=== PATIENT | female | born 1945 | race African-American/Black ===

== ENCOUNTER 2018-02-21 23:29 | Observation (INO) | payer MEDICARE ==
[~2018-02-21] VITALS: Ht 167.6 cm; Wt 117.5 kg
[2018-02-22 02:40] LABS: BASOPHILS % 0.2 % (0.0-1.0); EOSINOPHILS # (AUTO) 0.1 (0.0-0.4); EOSINOPHILS % 1.1 % (0.0-6.0); HEMOGLOBIN 11.3 g/dL (12.0-16.0); LYMPHOCYTES % 21.8 % (18.0-39.1); MEAN CORPUSCULAR HEMOGLOBIN 30.7 pg (28-32); MEAN CORPUSCULAR HGB CONC 32.3 g/dL (31-35); MEAN CORPUSCULAR VOLUME 95.1 fL (81-99); MONOCYTES # (AUTO) 0.4 (0.2-0.8); NEUTROPHILS # (AUTO) 3.2 (2.1-6.9); NEUTROPHILS % 68.7 % (38.7-80.0); PLATELET COUNT 128 x10e3/uL (140-360); RED BLOOD COUNT 3.68 x10e6/uL (3.6-5.1); RED CELL DISTRIBUTION WIDTH 14.5 % (11.7-14.4)
[2018-02-22 02:45] LABS: INR 1.09; PARTIAL THROMBOPLASTIN TIME 32.6 seconds (23.8-35.5); PROTHROMBIN TIME 13.3 seconds (11.9-14.5)
[2018-02-22 02:49] LABS: CLARITY,URINE CLEAR (CLEAR); COLOR,URINE YELLOW (YELLOW); LEUKOCYTE ESTERASE ,URINE 1+ (NEGATIVE); NITRITE,URINE NEGATIVE (NEGATIVE); PROTEIN,URINE DIPSTICK 3+ (NEGATIVE)
[2018-02-22 02:50] LABS: BILIRUBIN,URINE NEGATIVE (NEGATIVE); KETONES,URINE NEGATIVE (NEGATIVE); URINE UROBILINOGEN 0.2 mg/dL (0.2 - 1)
[2018-02-22 02:51] LABS: EPITHELIAL CELLS,URINE MANY /LPF
--- NOTE | 2018-02-22 02:51 | Diagnostic Imaging Report ---
EXAM: CHEST SINGLE (PORTABLE), AP 1 view INDICATION: Shortness of breath, dizzy COMPARISON: None FINDINGS: LINES/TUBES: None LUNGS: No consolidations or edema. PLEURA: No effusions or pneumothorax. HEART AND MEDIASTINUM: Cardiomegaly. BONES AND SOFT TISSUES: No acute findings. Surgical clips project over the midline neck. IMPRESSION: Cardiomegaly and vascular congestion. Signed by: Dr. Zaida Alvarado M.D. on 02/22/2018 2:48 AM
[2018-02-22 02:55] LABS: ALBUMIN 3.2 g/dL (3.5-5.0); ALBUMIN/GLOBULIN RATIO 0.9 (0.8-2.0); ANION GAP 24.1 mmol/L (8-16); CALCIUM 8.8 mg/dL (8.4-10.2); CREATININE, SERUM 13.14 mg/dL (0.57-1.11); MAGNESIUM 2.1 MG/DL (1.3-2.1); POTASSIUM 5.1 mmol/L (3.5-5.1)
[2018-02-22 03:03] LABS: CREATINE KINASE MB 4.5 ng/mL (0-5.0)
--- NOTE | 2018-02-22 03:07 | Diagnostic Imaging Report ---
Examination: CT head without contrast Clinical Indication: Dizziness. Technique: Transaxial noncontrast images from the skull base through the vertex were obtained. Sagittal and coronal reformatted images were done. Comparison: None. Findings: Scalp: No abnormalities. Bones: Intact. No fractures. No blastic or lytic lesions. Brain sulci: Appropriate for patient's age. Ventricles: Normal in size and configuration. No hydrocephalus. . Extra-axial space: No abnormalities. Parenchyma: There are mild confluent areas of low-attenuation within subcortical and periventricular white matter, nonspecific, but could represent microvascular ischemic disease. No masses, hemorrhage, or acute or chronic cortical based vascular insults. Suprasellar region: No abnormalities. Craniocervical junction: The foramen magnum is patent. No Chiari one malformation. Incidental findings: Atherosclerotic calcification of the cavernous and supraclinoid internal carotid arteries. Impression: 1. No acute intracranial finding. 2. Mild chronic microvascular ischemic change. Signed by: Dr. Annmarie Larson M.D. on 02/22/2018 3:04 AM
[2018-02-22] MEDS ORDERED: CEFTRIAXONE SOD 1 GM VIAL IV STA (06:17)
[2018-02-22] MEDS ORDERED: MORPHINE SULFATE 2 MG/ML SYR IV PRN (06:30)
[2018-02-22] MEDS ORDERED: ONDANSETRON HCL INJ 2 MG/ML VIAL IV PRN (06:30)
[2018-02-22 08:48] VITALS: BP 185/95
[2018-02-22] MEDS ORDERED: SODIUM CHLORIDE 0.9% 1000ML 2,000 ML ONE (09:07)
[2018-02-22 11:31] LABS: CHOL/HDL RATIO 5.7 (3.0-3.6)
[2018-02-22 12:19] VITALS: BP 151/79
[2018-02-22 12:40] LABS: CREATINE KINASE MB 4.3 ng/mL (0-5.0)
--- NOTE | 2018-02-22 13:19 | Consultation ---
DATE OF CONSULTATION: February 22, 2018 HISTORY OF PRESENT ILLNESS: A 73-year-old lady, known to our nephrology service, has underlying history of end-stage renal disease, came in because of feeling very weak, dizzy and almost passing out twice she says. She gets her dialysis via left arm AV fistula. Here currently she is lying down. She is relatively asymptomatic but does complain of weakness and fatigue. She denies any prior history of any coronary artery disease or arrhythmia. She also denies and history of NC. Workup here, labs and a chest x-ray, shows evidence of cardiomegaly with mild pulmonary vascular congestion. White count is 4.6, hemoglobin 11.3, potassium 5.1, bicarbonate 24, creatinine 13.1, glucose 333, calcium 8.8. Magnesium noted. BNP 244. Had a urinalysis done showed specific gravity 1010, pH 7, dipstick positive protein with 6 to 10 RBC and 11 to 20 WBC. Urine cultures have been sent and they are pending. ALLERGIES: NO APPARENT DRUG ALLERGIES. CURRENT MEDICATIONS: Patient is on ceftriaxone sodium, morphine and ondansetron. SOCIAL HISTORY: Patient does not smoke or drink. PHYSICAL EXAMINATION GENERAL: Awake, alert, lying supine. No apparent distress. VITALS: Blood pressure 188/95, pulse is 62. Afebrile. HEAD AND NECK: Cornea clear and mucosa dry. LUNGS: Bibasilar rales. HEART: S1, S2 audible. ABDOMEN: Soft, nontender. Distended abdomen. LOWER EXTREMITY EXAMINATION: Shows no edema. Functioning upper arm AV fistula noted. IMPRESSION AND PLAN 1. Evidence of syncope, presyncopal symptoms. ECG noted. Will consult cardiology. Will need an echocardiogram. Arrange for dialysis. 2. Hypertensive. No dyspnea noted. Will check for orthostatic hypotension also. 3. She recently had hemorrhoidal bleed but her hemoglobin is stable at 11.3, so anemia could not be the reason for her presyncopal symptoms. Please see orders. Job#: [id number] COLEMAN
--- NOTE | 2018-02-22 13:22 | Consultation ---
DATE OF CONSULTATION: CARDIOLOGY CONSULTATION ATTENDING PHYSICIAN: Dr. Essence Mercado. Thank you so much for asking me to see this nice lady in consultation. Ms. Horn is a pleasant 73-year-old black woman with longstanding diabetes and hypertension and more recent end-stage renal failure. CHIEF COMPLAINT: She presented to the emergency room the evening of the with complaint of "almost passing out." HISTORY OF PRESENT ILLNESS: She reports that she had been to the [employer] and on returning to home that "legs felt like rubber" and she fell against the side of the house thinking she might pass out but did not lose consciousness. She pushed her emergent call button and staff readiness officer arrived and found her blood pressure was very high and her blood sugar was about 350. Patient reports that she missed dialysis on Sunday and apparently she actually cut short the dialysis on Sunday as well. She reports she does not check fingerstick blood sugars at home herself but gets check at the dialysis unit. PAST MEDICAL HISTORY: Significant for longstanding diabetes and hypertension. She reports she has been on hemodialysis less than a year. HOME MEDICATIONS: Not on the chart. REVIEW OF SYSTEMS CARDIAC: She reports that she was told some years ago that she had "congestive heart failure". She denies any chest pain or palpitations. She reports that she used to have edema before she began dialysis. PHYSICAL EXAMINATION GENERAL: Shows an obese black woman who is on hemodialysis currently. VITALS: Blood pressure 180/80, pulse is 70 and regular. HEENT: Unremarkable. NECK: No jugular venous distention. No bruits. THORAX: Heart sounds S1, S2 equal. No murmurs. Lungs are clear. ABDOMEN: Markedly protuberant. EXTREMITIES: No cyanosis, clubbing, or edema. EKG shows sinus rhythm with poor R-wave progression. LABORATORY DATA: Show BUN 107, creatinine 13.1, glucose 333. Troponins normal. Urinalysis shows white blood cells. ASSESSMENTS 1. "Weak spell," not true syncope. She reports 2 previous episodes of gael syncope about 6 years ago, both proved to be hypoglycemia or hyperglycemia. 2. End-stage renal failure with patient being noncompliant with dialysis sessions. 3. Type 2 adult onset diabetes, poorly controlled. 4. Hypertension, poor control. PLAN: Patient currently on dialysis. We will check echocardiogram. Will monitor on telemetry. Will attempt to stress compliance. Thank you for asking me to see her in consultation. Job#: [id number] TA
[2018-02-22 16:45] VITALS: BP 187/74
[2018-02-22 17:37] VITALS: BP 187/74
[2018-02-22 17:40] VITALS: BP 187/74
[2018-02-22] MEDS ORDERED: FUROSEMIDE40 MG PO ×2 (17:47→18:15)
[2018-02-22] MEDS ORDERED: LISINOPRIL40 MG PO (18:15)
[2018-02-22] MEDS ORDERED: DEXTROSE 50% SYRINGE 50 ML IV PRN (18:45)
[2018-02-22 19:22] LABS: CREATINE KINASE MB 4.1 ng/mL (0-5.0)
[2018-02-22 20:00] VITALS: BP 160/82
[2018-02-22] MEDS: INSULIN REGULAR, HUMAN 100 UNIT/1 ML 3ML VIAL SQ SCH (21:24)
[2018-02-22] MEDS: INSULIN DETEMIR 100 UNIT/ML PEN SQ SCH (21:25)
[2018-02-23] VITALS (8 sets, daily range): BP systolic 122–176; BP diastolic 75–89
--- NOTE | 2018-02-23 03:22 | History and Physical ---
DATE OF ENCOUNTER: February 22, 2018 PRIMARY CARE DOCTOR: Dr. Gonzalez of [facility]. MARKETING TRAFFIC COORDINATOR: [facility] PHYSICIAN: Dr. Anastacio Sutton HISTORY: Ms. Horn is a pleasant 73-year-old female with near-syncope. Patient claims of had 2 separate episodes of syncope in the past. Last episode was 3 years ago, when she had her last stress test at that time. Patient's symptoms were quite profound. She actually missed dialysis on Sunday due to feeling slightly poor. Blood sugars known to be in about 350 range, when she came into emergency room. In the emergency room, chest x-ray consistent with mild overload. BNP level was 249, BUN was 107, creatinine 13.1, with potassium 5.1. She was admitted to observation. PAST MEDICAL HISTORY: End-stage renal disease, on dialysis for 3 years, diabetes, hypertension, reported CHF, hemorrhoids. MEDICINES: Medicine list reviewed per electronic record. ALLERGIES: NO KNOWN DRUG ALLERGIES. SOCIAL HISTORY: No smoking, no drinking, no drugs. 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 FAMILY HISTORY: Noncontributory. REVIEW OF SYSTEMS GENERAL: No unexplained weight changes. OPHTHALMOLOGIC: No double vision. ENT: Mildly dry mouth. ENDOCRINE: No thyroid disease known. PULMONARY: No asthma. CARDIAC: No recent heart attacks. GI: No constipation. : No blood in urine. DERMATOLOGIC: No rash. NEUROLOGIC: No seizures known. IMMUNOLOGIC: No asthma/allergies. OBJECTIVE VITAL SIGNS: Afebrile, vital signs noted per electronic record. GENERAL: In no acute distress, alert, slightly tired appearing in bed. HEENT: Normocephalic, atraumatic. NECK: Supple. Throat midline. LUNGS: Bilateral air entry, decreased effort, few crackles. CARDIOVASCULAR: S1, S2. No murmurs, rubs or gallops. ABDOMEN: Soft, nontender. EXTREMITIES: No clubbing, no cyanosis, there is no large edema. INTEGUMENT: No rash or purpura. IMPRESSIONS AND PLAN 1. Presyncope. 2. End-stage renal disease, on hemodialysis. 3. Missed dialysis, possible treatment nonadherence. 4. Abnormal chest radiography, fluid overload. 5. Diabetes. 6. Hypertension. 7. Reported congestive heart failure. 8. Mild hypoalbuminemia. Admit to observation. Cardiology consult. Patient needs dialysis, so, therefore, we got nephrology consulted. Will go with hemodialysis about 3 L negative output if possible. Check TSH level. Once she is ruled out for OR and cardiology is clear, will consider therapy. Thank you very much, Dr. Gonzalez, for allowing us the chance to participate in the care of Ms. Horn. Do not hesitate to contact us if we can help in any way. Job#: [id number] CQ
[2018-02-23 05:43] LABS: BASOPHILS % 0.2 % (0.0-1.0); EOSINOPHILS # (AUTO) 0.1 (0.0-0.4); EOSINOPHILS % 1.6 % (0.0-6.0); HEMOGLOBIN 11.7 g/dL (12.0-16.0); LYMPHOCYTES # (AUTO) 1.1 (1.0-3.2); LYMPHOCYTES % 25.1 % (18.0-39.1); MEAN CORPUSCULAR HGB CONC 32.5 g/dL (31-35); MEAN CORPUSCULAR VOLUME 95.5 fL (81-99); MONOCYTES # (AUTO) 0.5 (0.2-0.8); MONOCYTES % 10.1 % (4.4-11.3); NEUTROPHILS # (AUTO) 2.8 (2.1-6.9); NEUTROPHILS % 62.8 % (38.7-80.0); PLATELET COUNT 139 x10e3/uL (140-360); RED BLOOD COUNT 3.77 x10e6/uL (3.6-5.1); RED CELL DISTRIBUTION WIDTH 14.6 % (11.7-14.4)
[2018-02-23 06:04] LABS: ALBUMIN 3.2 g/dL (3.5-5.0); ALBUMIN/GLOBULIN RATIO 0.8 (0.8-2.0); CALCIUM 8.4 mg/dL (8.4-10.2); CHOL/HDL RATIO 5.5 (3.0-3.6); CREATININE, SERUM 10.38 mg/dL (0.57-1.11)
[2018-02-23 06:28] LABS: FREE THYROXINE INDEX 0.9587 (1.4-3.8); THYROID STIMULATING HORMONE 93.48 uIU/mL (0.350-4.940)
[2018-02-23] MEDS: INSULIN REGULAR, HUMAN 100 UNIT/1 ML 3ML VIAL SQ SCH ×4 (08:16→20:31)
[2018-02-23] MEDS: FUROSEMIDE 40 MG TAB PO SCH ×2 (10:11→17:00)
[2018-02-23] MEDS: LISINOPRIL 20 MG TAB PO SCH ×2 (10:11→17:00)
[2018-02-23] MEDS: INSULIN DETEMIR 100 UNIT/ML PEN SQ SCH ×2 (10:14→20:59)
[2018-02-23] MEDS: HYDRALAZINE HCL 20 MG/ML VIAL IV PRN (11:56)
[2018-02-23] MEDS ORDERED: SODIUM CHLORIDE 0.9% 1000ML 1,000 ML ONE (14:30)
[2018-02-23] MEDS: NIFEDIPINE CR 30 MG TAB PO SCH (14:45)
[2018-02-23] MEDS: LEVOTHYROXINE SODIUM 112 MCG TAB PO SCH (14:57)
[2018-02-23] MEDS ORDERED: SODIUM CHLORIDE 0.9% 1000ML 2,000 ML IV PRN (15:00)
[2018-02-24] VITALS (8 sets, daily range): BP systolic 130–181; BP diastolic 60–83
[2018-02-24] MEDS: HYDRALAZINE HCL 20 MG/ML VIAL IV PRN ×2 (01:10→05:38)
[2018-02-24] MEDS: LEVOTHYROXINE SODIUM 112 MCG TAB PO SCH (05:58)
[2018-02-24] MEDS ORDERED: LACTULOSE SYRUP 20 GM/30 ML UDC PO ONE ×2 (07:45)
[2018-02-24] MEDS: INSULIN REGULAR, HUMAN 100 UNIT/1 ML 3ML VIAL SQ SCH ×2 (08:06→11:46)
[2018-02-24] MEDS: INSULIN DETEMIR 100 UNIT/ML PEN SQ SCH (09:35)
[2018-02-24] MEDS: NIFEDIPINE CR 30 MG TAB PO SCH (09:36)
[2018-02-24] MEDS: LISINOPRIL 20 MG TAB PO SCH (09:36)
[2018-02-24] MEDS: FUROSEMIDE 40 MG TAB PO SCH (09:36)
[2018-02-24] MEDS ORDERED: LASIX40 MG PO (13:25)
[2018-02-24] MEDS ORDERED: SYNTHROID112 MCG PO (13:26)
[2018-02-24] MEDS ORDERED: LISINOPRIL10 MG PO (13:27)
[2018-02-24] MEDS ORDERED: PROCARDIA XL30 MG PO (13:27)
[2018-02-24] MEDS ORDERED: ANUSOL-HC30 GM RC (13:28)
--- NOTE | 2018-02-24 13:52 | Discharge Summary ---
PRIMARY CARE DOCTOR: Dr. Cade Patel with [facility]. FINAL DIAGNOSIS: Dizziness, near syncope. SECONDARY DIAGNOSES 1. End-stage renal disease. 2. Noncompliant with dialysis. 3. Uncontrolled hypertension. 4. Uncontrolled diabetes. 5. Hypothyroidism. 6. Morbid obesity. 7. Hemorrhoids. CONSULTANTS: Dr. Echavarria, cardiology. Dr. Mercado, diagrammer. PROCEDURES/STUDIES PERFORMED 1. Dialysis. 2. Head computerized tomography, which did not show any acute disease. HISTORY: Per H and P. HOSPITAL COURSE: The patient was monitored in the hospital. Her troponins were negative times 3. Her blood pressure was not controlled. Nifedipine XL was added. Now, her blood pressure is much better. Also, dialysis helped as well. The patient had thyroidectomy in the past, and has not been taking her Synthroid for the last 6 months. I went ahead and started her on 112 mcg daily. The patient will need to have another TSH checked in a couple of months. I stressed importance of being compliant with her medical treatment, including dialysis. The patient was seen and examined today. CONDITION ON DISCHARGE: Stable. DISCHARGE MEDICATIONS: Please see medication reconciliation form. CHERELLE VELASQUEZ M.D. Job#: [id number] RI cc:CADE PATEL MD
== END 2018-02-24 14:40 | disposition home or self-care (01) ==
LOC: ER 23:29 → ERHOLD 02-22 06:23 → IMCU 02-22 16:02
PROVIDERS: ADMIT Internal Medicine; ATTEND Internal Medicine
DX: R55 Syncope and collapse (principal); E11.22 Type 2 diabetes mellitus with diabetic chronic kidney disease; I13.2 Hypertensive heart and chronic kidney disease with heart failure and with stage 5 chronic kidney disease, or end stage renal disease; I50.9 Heart failure, unspecified; N18.6 End stage renal disease; Z99.2 Dependence on renal dialysis; Z91.15 Patient's noncompliance with renal dialysis; Z83.3 Family history of diabetes mellitus; Z82.49 Family history of ischemic heart disease and other diseases of the circulatory system; E87.70 Fluid overload, unspecified; E88.09 Other disorders of plasma-protein metabolism, not elsewhere classified; E11.65 Type 2 diabetes mellitus with hyperglycemia; E66.01 Morbid (severe) obesity due to excess calories; Z68.41 Body mass index [BMI] 40.0-44.9, adult; E03.9 Hypothyroidism, unspecified; K64.9 Unspecified hemorrhoids
CPT/HCPCS: 36415 ×3; 70450; 71045; 80053 ×2; 80061 ×2; 81001; 82550; 82553; 82948 ×3; 83735; 83880; 84436; 84443; 84479; 84484; 85025 ×2; 85610; 85730; 87086; 90935 ×2; 93005; 93306; 96372 ×2; 97139; 97162; 97530; 99284; G0378 ×3; G8978; G8979; J0360 ×2; J0696; J7030 ×2

== ENCOUNTER 2018-05-20 12:31 | Emergency (ER) | payer MEDICARE ==
[~2018-05-20] VITALS: Ht 167.6 cm; Wt 117.5 kg
[~2018-05-20 12:31] MED LIST: ANUSOL-HC30 GM RC; FUROSEMIDE40 MG PO; LASIX40 MG PO; LISINOPRIL10 MG PO; LISINOPRIL40 MG PO; PROCARDIA XL30 MG PO; SYNTHROID112 MCG PO
--- OUTSIDE RECORDS SUMMARY | 2018-05-20 12:34 | XMS REPORT | Clinical Summary ---
Author Author YADIEL [facility]om[facility]Syring[facility] HospitalOpenClov[facility] Address Unknown Phone Unavailable Care Team Providers Care Remarketing Manager Name Role Phone Tl Patel PCP Allergies Comments Active Allergy Reactions Severity Noted Date Atorvastatin Other (See 01/17/2015 Comments) Pneumococcal Vaccine Shortness Of High 01/17/2015 Breath Pneumococcal 23-Nancy Ps Hives, High 05/25/2015 Vaccine Shortness Of Breath Medications End Date Status Medication Sig Dispensed Refills Start Date Active cholecalciferol, vitamin After you 0 D3, (VITAMIN D3) 2,000 have finished 4 unit Cap the prescription strength vitamin D (around 01/02/14), start taking alcf-ojs-dgtn ter vitamin D3 2000 units daily.. Active coenzyme Q10 200 mg Take by mouth 0 capsule daily . Active omega 5-iba-asg-fish oil Take 6 0 (FISH OIL) 1,000 capsules by (120-180) mg Cap mouth. Active FOLIC ACID ORAL Take 1 tablet 0 by mouth. Active senna (SENOKOT) 8.6 mg Take 1 tablet 0 tablet by mouth. Active diclofenac (VOLTAREN) 1 % Apply 0 Gel BID-QID. 4 Active simvastatin (ZOCOR) 5 MG Take 1 tablet 90 tablet 0 tablet (5 mg total) 5 by mouth nightly. Active omeprazole (PRILOSEC) 40 Take 1 90 capsule 0 MG capsule capsule (40 5 mg total) by mouth daily. Active albuterol HFA (PROVENTIL Inhale 2 1 Inhaler 3 HFA) 90 mcg/actuation puffs by 5 inhaler mouth via inhaler every 4 (four) hours as needed for Wheezing. Active allopurinol (ZYLOPRIM) Take 3 30 tablet 3 100 MG tablet tablets (300 5 mg total) by mouth daily TAKE ONE TABLET BY MOUTH EVERY DAY. Active phenyleph-shark Place 0 dho-wjgs-njj rectally as (HEMORRHOIDAL) Crea needed. Active aspirin 81 MG chewable Take 81 mg by 0 tablet mouth daily. Active divalproex (DEPAKOTE) 500 Take 500 mg 0 MG EC tablet by mouth 3 (three) times daily. Active fLUoxetine (PROZAC) 20 MG Take 20 mg by 0 capsule mouth daily. Active HYDROcodone-acetaminophen Take 1 tablet 0 (NORCO 5-325) 5-325 mg by mouth per tablet every 6 (six) hours as needed for Pain. 05/28/2018 Active acetaminophen-codeine Take 1 tablet 20 tablet 0 (TYLENOL #3) 300-30 mg by mouth 8 per tablet every 4 (four) hours as needed for up to 10 days. Max Daily Amount: 6 tablets 05/28/2018 Active pramoxine (PROCTOFOAM) 1 Place 15 g 0 % foam rectally 8 every 2 (two) hours as needed for Hemorrhoids for up to 10 days. 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, H/O 01/22/2015 Diastolic heart failure, H/O 01/22/2015 Diabetic peripheral neuropathy, H/O 01/22/2015 Gout, H/O 01/22/2015 Volume overload 01/17/2015 Diabetes mellitus 01/17/2015 Hyperlipidemia 01/17/2015 Morbid obesity 01/17/2015 Hypertension Encounters Care Team Description Date Type Specialty Bakrai Cuenca MD Hemorrhoids, unspecified hemorrhoid type (Primary Dx); Essential hypertension; ESRD (end stage renal disease) (HCC); Simple chronic bronchitis (HCC) 05/18/2018 Emergency Emergency Medicine 05/18/2018 Travel after 05/19/2017 Social History Date Tobacco Use Types Packs/Day Years Used Never Smoker Smokeless Tobacco: Never Used Alcohol Use Drinks/Week oz/Week Comments No Sex Assigned at Date Recorded Not on file Industry Job Start Date Occupation Not on file Not on file Not on file Travel End Travel History Travel Start No recent travel history available. Last Filed Vital Signs Time Taken Vital Sign Reading 05/18/2018 9:42 AM CDT Blood Pressure 173/88 05/18/2018 9:42 AM CDT Pulse 77 05/18/2018 9:42 AM CDT Temperature 36.2 C (97.2 F) 05/18/2018 9:42 AM CDT Respiratory Rate 24 05/18/2018 9:42 AM CDT Oxygen Saturation 96% - Inhaled Oxygen - Concentration 05/18/2018 9:42 AM CDT Weight 112.9 kg (249 lb) 05/18/2018 9:42 AM CDT Height 167.6 cm (5' 6") 05/18/2018 9:42 AM CDT Body Mass Index 40.19 Plan of Treatment Health Maintenance Due Date Last Done Comments INFLUENZA VACCINE 04/15/2018 Procedures Comments Procedure Name Priority Date/Time Associated Diagnosis CBC W/PLT COUNT & AUTO STAT 05/18/2018 DIFFERENTIAL 11:32 AM CDT BASIC METABOLIC PANEL (7) STAT 05/18/2018 11:32 AM CDT CBC W/PLT COUNT & AUTO STAT 05/18/2018 DIFFERENTIAL 11:32 AM CDT PT/APTT STAT 05/18/2018 11:32 AM CDT after 05/19/2017 Results * PT/aPTT (05/18/2018 11:32 AM CDT) Protime 14.3 11.7 - 14.7 seconds [facility] INR 1.1 <=5.9 [facility] PTT 30.9 22.5 - 36.0 seconds [facility] Specimen Blood - Arm, Right Narrative Performed At RECOMMENDED COUMADIN/WARFARIN INR THERAPY RANGES [facility] STANDARD DOSE: 2.0 - 3.0 Includes: PROPHYLAXIS for venous thrombosis, [facility] systemic embolization; TREATMENT for venous thrombosis and/or pulmonary embolus. HIGH RISK: Target INR is 2.5-3.5 for patients with mechanical heart valves. Performing Organization Address City/State/Zipcode Phone Number [facility] [address] [place] [address] [facility] * CBC with platelet count + automated diff (05/18/2018 11:32 AM CDT) WBC 5.1 3.5 - 10.5 K/L [facility] RBC 3.64 (L) 3.93 - 5.22 M/L [facility] Hemoglobin 10.3 (L) 11.2 - 15.7 GM/DL [facility] Hematocrit 33.9 (L) 34.1 - 44.9 % [facility] MCV 93.1 79.4 - 94.8 fL [facility] MCH 28.3 25.6 - 32.2 pg [facility] MCHC 30.4 (L) 32.2 - 35.5 GM/DL [facility] RDW 14.2 11.7 - 14.4 % [facility] Platelets 142 (L) 150 - 450 K/CU MM [facility] MPV 12.1 9.4 - 12.3 fL [facility] nRBC 0 0 - 0 /100 WBC [facility] % Neutros 76 % [facility] % Lymphs 14 % [facility] % Monos 9 % [facility] % Eos 1 % [facility] % Baso 0 % [facility] # Neutros 3.85 1.56 - 6.13 K/L [facility] # Lymphs 0.72 (L) 1.18 - 3.74 K/L [facility] # Monos 0.43 (H) 0.24 - 0.36 K/L [facility] # Eos 0.06 0.04 - 0.36 K/L [facility] # Baso 0.01 0.01 - 0.08 K/L [facility] Immature 0 0 - 1 % [facility] Granulocytes-Relative [facility] Specimen Blood - Arm, Right Performing Organization Address City/[facility] Phone Number [facility] [address] [place] [address] [phone] [place] [address] * Basic Metabolic Panel (05/18/2018 11:32 AM CDT) Sodium 136 136 - 145 meq/L [facility] Potassium 4.3 3.5 - 5.1 meq/L [facility] Chloride 98 98 - 107 meq/L [facility] CO2 23 22 - 29 meq/L [facility] BUN 64 (H) 7 - 21 mg/dL [facility] Creatinine 12.54 (H) 0.57 - 1.25 mg/dL [facility] Glucose 116 (H) 70 - 105 mg/dL [facility] Calcium 7.8 (L) 8.4 - 10.2 mg/dL [facility] EGFR 4Comment: ESTIMATED GFR IS NOT mL/min/1.73 sq m [facility] ACCURATE CREATININE [facility] CLEARANCE IN PREDICTING GLOMERULAR FILTRATION RATE. ESTIMATED GFR IS NOT APPLICABLE FOR DIALYSIS PATIENTS. Specimen Blood - Arm, Right Performing Organization Address City/State/Zipcode Phone Number [facility] [address] [place] [address] [facility] after 05/19/2017 Insurance Payer Benefit Subscriber ID Type Phone Address Plan / Group [facility] x[facility]xx MEDICARE ADV Advance Directives For more information, please contact: [address] [address] Date Inactivated Comments Code Status Date Activated 04/30/2015 8:20 PM Full Code 04/29/2015 10:32 AM This code status was determined by: Patient 04/06/2015 2:57 PM Full Code 04/06/2015 5:37 AM This code status was determined by: Patient 03/31/2015 6:12 PM Full Code 03/28/2015 2:15 AM This code status was determined by: Patient 02/02/2015 4:05 PM Full Code 01/29/2015 12:31 AM This code status was determined by: Patient 01/24/2015 2:28 PM Full Code 01/17/2015 6:53 PM This code status was determined by: Patient
[2018-05-20] MEDS ORDERED: LIDOCAINE JELLY 2% 10ML URO-JET ONE (14:20)
[2018-05-20] MEDS ORDERED: LIDOCAINE HCL 2% 30 ML TUBE TOP ONE (14:30)
[2018-05-20 14:47] LABS: BASOPHILS % 0.2 % (0.0-1.0); EOSINOPHILS % 0.7 % (0.0-6.0); HEMATOCRIT 37.4 % (34.2-44.1); HEMOGLOBIN 11.5 g/dL (12.0-16.0); LYMPHOCYTES # (AUTO) 0.8 (1.0-3.2); LYMPHOCYTES % 15.1 % (18.0-39.1); MEAN CORPUSCULAR HEMOGLOBIN 28.3 pg (28-32); MEAN CORPUSCULAR HGB CONC 30.7 g/dL (31-35); MEAN CORPUSCULAR VOLUME 92.1 fL (81-99); MONOCYTES # (AUTO) 0.5 (0.2-0.8); MONOCYTES % 8.8 % (4.4-11.3); NEUTROPHILS # (AUTO) 4.1 (2.1-6.9); PLATELET COUNT 185 x10e3/uL (140-360); RED BLOOD COUNT 4.06 x10e6/uL (3.6-5.1); RED CELL DISTRIBUTION WIDTH 14.6 % (11.7-14.4)
[2018-05-20] MEDS ORDERED: LACTULOSE SYRUP 20 GM/30 ML UDC PO ONE (15:00)
[2018-05-20 15:13] LABS: ALBUMIN 3.3 g/dL (3.5-5.0); ALBUMIN/GLOBULIN RATIO 0.7 (0.8-2.0); ANION GAP 24.9 mmol/L (8-16); CALCIUM 8.4 mg/dL (8.4-10.2); CREATININE, SERUM 16.12 mg/dL (0.57-1.11); MAGNESIUM 2.4 MG/DL (1.3-2.1); PHOSPHORUS 8.7 MG/DL (2.3-4.7); POTASSIUM 4.9 mmol/L (3.5-5.1)
[2018-05-20] MEDS ORDERED: HYDRALAZINE HCL 20 MG/ML VIAL IV ONE ×2 (15:15→17:00)
[2018-05-20] MEDS ORDERED: SODIUM CHLORIDE 0.9% 1000ML 1,000 ML IV ONE (15:45)
[2018-05-20 15:51] VITALS: BP 183/50
[2018-05-20] MEDS ORDERED: CALCIUM ACETATE 667 MG GELCAP PO ONE (16:30)
== END 2018-05-20 18:20 | disposition home or self-care (01) ==
LOC: ER 12:31
DX: K62.89 Other specified diseases of anus and rectum (principal); K56.41 Fecal impaction; E86.0 Dehydration; I12.0 Hypertensive chronic kidney disease with stage 5 chronic kidney disease or end stage renal disease; E11.22 Type 2 diabetes mellitus with diabetic chronic kidney disease; N18.6 End stage renal disease; Z99.2 Dependence on renal dialysis
CPT/HCPCS: 36415; 80053; 83735; 84100; 85025; 99284; J0360; J7030

== ENCOUNTER 2018-08-20 21:15 | Emergency (ER) | payer MEDICARE ==
[~2018-08-20] VITALS: Ht 167.6 cm; Wt 117.5 kg
--- OUTSIDE RECORDS SUMMARY | 2018-08-20 21:19 | XMS REPORT | Clinical Summary ---
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 Active coenzyme Q10 200 mg Take by mouth 0 capsule daily . Active omega 1-jxl-gjm-fish oil Take 6 0 (FISH OIL) 1,000 capsules by (120-180) mg Cap mouth. Active FOLIC ACID ORAL Take 1 tablet 0 by mouth. Active senna (SENOKOT) 8.6 mg Take 1 tablet 0 tablet by mouth. Active diclofenac (VOLTAREN) 1 % Apply 0 Gel BID-QID. 4 Active omeprazole (PRILOSEC) 40 Take 1 90 capsule 0 MG capsule capsule (40 5 mg total) by mouth daily. Active albuterol HFA (PROVENTIL Inhale 2 1 Inhaler 3 HFA) 90 mcg/actuation puffs by 5 inhaler mouth via inhaler every 4 (four) hours as needed for Wheezing. Active phenyleph-shark Place 0 mcr-tdds-klu rectally as (HEMORRHOIDAL) Crea needed. Active aspirin 81 MG chewable Take 81 mg by 0 tablet mouth daily. Active calcium acetate (PHOSLO) Take 2,001 mg 0 667 mg capsule by mouth 3 (three) times daily with meals. Active carvedilol (COREG) 3.125 Take 1 tablet 60 tablet 1 MG tablet (3.125 mg 9 total) by mouth 2 (two) times daily with breakfast and dinner. 07/27/2019 Active cilostazol (PLETAL) 50 MG Take 1 tablet 180 tablet 0 tablet (50 mg total) 9 by mouth 2 (two) times daily. Active clopidogrel (PLAVIX) 75 Take 1 tablet 90 tablet 0 mg tablet (75 mg total) 9 by mouth daily. Active docusate sodium (COLACE) Take 1 30 capsule 0 100 MG capsule capsule (100 9 mg total) by mouth 2 (two) times daily. Active NIFEdipine (ADALAT CC) 30 Take 1 tablet 90 tablet 0 MG 24 hr tablet (30 mg total) 9 by mouth daily. 07/27/2019 Active nitroglycerin (NITROSTAT) Put 1 pill 10 tablet 0 0.4 MG SL tablet under tongue 9 every 5min as needed for chest pain.No more than 3 doses in 15min.Call 911 if pain is unrelieved. Active rosuvastatin (CRESTOR) 10 Take 1 tablet 90 tablet 0 MG tablet (10 mg total) 9 by mouth daily. 07/19/2018 Discontinued simvastatin (ZOCOR) 5 MG Take 1 tablet 90 tablet 0 tablet (5 mg total) 5 by mouth nightly. 07/19/2018 Discontinued allopurinol (ZYLOPRIM) Take 3 30 tablet 3 100 MG tablet tablets (300 5 mg total) by mouth daily TAKE ONE TABLET BY MOUTH EVERY DAY. 07/19/2018 Discontinued divalproex (DEPAKOTE) 500 Take 500 mg 0 MG EC tablet by mouth 3 (three) times daily. 07/19/2018 Discontinued fLUoxetine (PROZAC) 20 MG Take 20 mg by 0 capsule mouth daily. 07/27/2018 Discontinued HYDROcodone-acetaminophen Take 1 tablet 0 (NORCO 5-325) 5-325 mg by mouth per tablet every 6 (six) hours as needed for Pain. 05/28/2018 acetaminophen-codeine Take 1 tablet 20 tablet 0 (TYLENOL #3) 300-30 mg by mouth 8 per tablet every 4 (four) hours as needed for up to 10 days. Max Daily Amount: 6 tablets 05/28/2018 pramoxine (PROCTOFOAM) 1 Place 15 g 0 % foam rectally 8 every 2 (two) hours as needed for Hemorrhoids for up to 10 days. 07/27/2018 Discontinued furosemide (LASIX) 80 MG Take 80 mg by 0 tablet mouth 2 (two) times daily. 07/27/2018 Discontinued lisinopril Take 40 mg by 0 (PRINIVIL,ZESTRIL) 40 MG mouth 2 (two) tablet times daily. 08/06/2018 oxyCODONE-acetaminophen Take 1 tablet 30 tablet 0 (PERCOCET) 5-325 mg per by mouth 9 tablet every 8 (eight) hours as needed for Pain for up to 10 days. Max Daily Amount: 3 tablets Active Problems Problem Noted Date Toe gangrene 07/19/2018 Fecal impaction 04/29/2015 Constipation 04/29/2015 ESRD (end [...] Encounters Care Team Description Date Type Specialty Goyo Haji MD AMPUTATION,TOE 07/25/2018 Surgery Suresh Roberts MD 07/25/2018 Anesthesia Event Jonathan Wood MD PERIPHERAL ANGIOS / AORTOGRAM 07/23/2018 Surgery 07/20/2018 Travel Jr Lala MD Dhir, Fely Acevedo MD 07/19/2018 Hospital Cardiology - Encounter 07/27/2018 Bakari Cuenca MD Hemorrhoids, unspecified hemorrhoid type (Primary Dx); Essential hypertension; ESRD (end stage renal disease) (HCC); Simple chronic bronchitis (HCC) 05/18/2018 Emergency Emergency Medicine 05/18/2018 Travel after 08/19/2017 Social History Date Tobacco Use Types Packs/Day Years Used Never Smoker Smokeless Tobacco: Never Used Alcohol Use Drinks/Week oz/Week Comments No Sex Assigned at Date Recorded Not on file Industry Job Start Date Occupation Not on file Not on file Not on file Travel End Travel History Travel Start No recent travel history available. Last Filed Vital Signs Time Taken Vital Sign Reading 07/27/2018 11:55 AM DELIVERY ASSISTANT Blood Pressure 143/65 07/27/2018 11:55 AM DELIVERY ASSISTANT Pulse 72 07/27/2018 11:55 AM DELIVERY ASSISTANT Temperature 36.7 C (98.1 F) 07/27/2018 11:55 AM DELIVERY ASSISTANT Respiratory Rate 18 07/27/2018 1:45 PM DELIVERY ASSISTANT Oxygen Saturation 96% - Inhaled Oxygen - Concentration 07/24/2018 3:55 PM DELIVERY ASSISTANT Weight 114.2 kg (251 lb 12.3 oz) 07/19/2018 7:37 PM DELIVERY ASSISTANT Height 170.7 cm (5' 7.2") 07/24/2018 3:55 PM DELIVERY ASSISTANT Body Mass Index 39.2 Plan of Treatment Health Maintenance Due Date Last Done Comments INFLUENZA VACCINE 04/15/2018 Procedures Comments Procedure Name Priority Date/Time Associated Diagnosis VASCULAR DIAGRAM -SCAN 08/19/2018 9:10 AM DELIVERY ASSISTANT RHYTHM STRIP - SCAN 08/19/2018 9:10 AM DELIVERY ASSISTANT CARDIAC CATH REPORT - 08/19/2018 SCAN 9:10 AM DELIVERY ASSISTANT POCT-GLUCOSE METER Routine 07/27/2018 12:42 PM DELIVERY ASSISTANT POCT-GLUCOSE METER Routine 07/27/2018 9:08 AM DELIVERY ASSISTANT POCT-GLUCOSE METER Routine 07/26/2018 9:29 PM DELIVERY ASSISTANT POCT-GLUCOSE METER Routine 07/26/2018 5:55 PM DELIVERY ASSISTANT POCT-GLUCOSE METER Routine 07/26/2018 12:10 PM DELIVERY ASSISTANT HEMODIALYSIS INPATIENT Routine 07/26/2018 11:52 AM DELIVERY ASSISTANT BASIC METABOLIC PANEL (7) Routine 07/26/2018 8:19 AM DELIVERY ASSISTANT POCT-GLUCOSE METER Routine 07/25/2018 9:49 PM DELIVERY ASSISTANT POCT-GLUCOSE METER Routine 07/25/2018 6:02 PM DELIVERY ASSISTANT POCT-GLUCOSE METER Routine 07/25/2018 1:37 PM DELIVERY ASSISTANT TISSUE EXAM AP Routine 07/25/2018 1:05 PM DELIVERY ASSISTANT AMPUTATION,TOE 07/25/2018 Gangrene of toe (HCC) 1:01 PM DELIVERY ASSISTANT POCT-GLUCOSE METER Routine 07/25/2018 8:06 AM DELIVERY ASSISTANT POCT-GLUCOSE METER Routine 07/24/2018 11:08 PM DELIVERY ASSISTANT HEMODIALYSIS INPATIENT Routine 07/24/2018 7:50 PM DELIVERY ASSISTANT PHOSPHORUS Routine 07/24/2018 4:17 PM DELIVERY ASSISTANT POCT-GLUCOSE METER Routine 07/24/2018 12:33 PM DELIVERY ASSISTANT POCT-GLUCOSE METER Routine 07/24/2018 7:31 AM DELIVERY ASSISTANT CBC W/PLT COUNT & AUTO Routine 07/24/2018 DIFFERENTIAL 3:24 AM DELIVERY ASSISTANT CBC W/PLT COUNT & AUTO Routine 07/24/2018 DIFFERENTIAL 3:24 AM DELIVERY ASSISTANT BASIC METABOLIC PANEL (7) Routine 07/24/2018 3:24 AM DELIVERY ASSISTANT PLATELET AGGREGATION: AP Routine 07/24/2018 FUNCTION SCREEN 3:24 AM DELIVERY ASSISTANT POCT-GLUCOSE METER Routine 07/23/2018 9:20 PM DELIVERY ASSISTANT POCT-ACT Routine 07/23/2018 7:09 PM DELIVERY ASSISTANT POCT-GLUCOSE METER Routine 07/23/2018 6:32 PM DELIVERY ASSISTANT POCT-ACT Routine 07/23/2018 5:47 PM DELIVERY ASSISTANT POCT-ACT Routine 07/23/2018 4:42 PM DELIVERY ASSISTANT POCT-ACT Routine 07/23/2018 2:38 PM DELIVERY ASSISTANT POCT-GLUCOSE METER Routine 07/23/2018 1:25 PM DELIVERY ASSISTANT POCT-ACT Routine 07/23/2018 10:13 AM DELIVERY ASSISTANT PERIPHERAL ANGIOS / 07/23/2018 Peripheral arterial AORTOGRAM 9:15 AM DELIVERY ASSISTANT disease (HCC) Case Notes (2) CASE 1830 POCT-GLUCOSE METER Routine 07/23/2018 6:42 AM DELIVERY ASSISTANT POCT-GLUCOSE METER Routine 07/22/2018 9:21 PM DELIVERY ASSISTANT HEMODIALYSIS INPATIENT Routine 07/22/2018 8:37 PM DELIVERY ASSISTANT CBC W/PLT COUNT & AUTO Routine 07/22/2018 DIFFERENTIAL 4:08 PM DELIVERY ASSISTANT PHOSPHORUS Routine 07/22/2018 4:08 PM DELIVERY ASSISTANT BASIC METABOLIC PANEL (7) Routine 07/22/2018 4:08 PM DELIVERY ASSISTANT CBC W/PLT COUNT & AUTO Routine 07/22/2018 DIFFERENTIAL 4:08 PM DELIVERY ASSISTANT POCT-GLUCOSE METER Routine 07/22/2018 11:33 AM DELIVERY ASSISTANT POCT-GLUCOSE METER Routine 07/21/2018 9:06 PM DELIVERY ASSISTANT POCT-GLUCOSE METER Routine 07/21/2018 4:10 PM DELIVERY ASSISTANT C. DIFFICILE GDH TOXIN Routine 07/21/2018 2:11 PM DELIVERY ASSISTANT POCT-GLUCOSE METER Routine 07/21/2018 11:28 AM DELIVERY ASSISTANT POCT-GLUCOSE METER Routine 07/21/2018 7:46 AM DELIVERY ASSISTANT POCT-GLUCOSE METER Routine 07/20/2018 9:21 PM DELIVERY ASSISTANT HEMODIALYSIS INPATIENT Routine 07/20/2018 7:18 PM DELIVERY ASSISTANT POCT-GLUCOSE METER Routine 07/20/2018 4:42 PM DELIVERY ASSISTANT HEPATITIS B SURFACE Routine 07/20/2018 ANTIGEN 2:58 PM DELIVERY ASSISTANT PHOSPHORUS Routine 07/20/2018 2:58 PM DELIVERY ASSISTANT POCT-GLUCOSE METER Routine 07/20/2018 11:33 AM DELIVERY ASSISTANT POCT-GLUCOSE METER Routine 07/20/2018 7:53 AM DELIVERY ASSISTANT CBC W/PLT COUNT & AUTO Routine 07/20/2018 DIFFERENTIAL 6:02 AM DELIVERY ASSISTANT BASIC METABOLIC PANEL (7) Routine 07/20/2018 6:02 AM DELIVERY ASSISTANT CBC W/PLT COUNT & AUTO Routine 07/20/2018 DIFFERENTIAL 6:02 AM DELIVERY ASSISTANT POCT-GLUCOSE METER Routine 07/19/2018 8:27 PM DELIVERY ASSISTANT CBC W/PLT COUNT & AUTO STAT 05/18/2018 DIFFERENTIAL 11:32 AM CDT BASIC METABOLIC PANEL (7) STAT 05/18/2018 11:32 AM CDT CBC W/PLT COUNT & AUTO STAT 05/18/2018 DIFFERENTIAL 11:32 AM CDT PT/APTT STAT 05/18/2018 11:32 AM CDT after 08/19/2017 Results * VASCULAR DIAGRAM -SCAN (08/19/2018 9:10 AM DELIVERY ASSISTANT) Narrative Performed At * RHYTHM STRIP - SCAN (08/19/2018 9:10 AM DELIVERY ASSISTANT) Narrative Performed At * CARDIAC CATH REPORT - SCAN (08/19/2018 9:10 AM DELIVERY ASSISTANT) Narrative Performed At * POC-Glucose meter (07/27/2018 12:42 PM DELIVERY ASSISTANT) Only the most recent of 27 results within the time period is included. POC-Glucose Meter 166 (H)Comment: TESTED AT 70 - 110 mg/dL [facility] [address] [facility] [address] Specimen Blood Performing Organization Address City/State/Zipcode Phone Number [place] [phone] [place], [place] [id number] [facility] * HEMODIALYSIS INPATIENT (07/26/2018 11:52 AM DELIVERY ASSISTANT) Narrative Performed At Harjinder Dan RN 07/26/2018 11:53 AM Lab Results Component Value Date WBC 5.1 07/24/2018 HGB 10.6 (L) 07/24/2018 HCT 35.9 07/24/2018 MCV 91.6 07/24/2018 PLT 235 07/24/2018 PLT 235 07/24/2018 Lab Results Component Value Date GLUCOSE 108 (H) 07/26/2018 CALCIUM 8.2 (L) 07/26/2018 NA 135 (L) 07/26/2018 K 5.0 07/26/2018 CO2 27 07/26/2018 CL 99 07/26/2018 BUN 46 (H) 07/26/2018 CREATININE 9.49 (H) 07/26/2018 Lab Results Component Value Date HEPBSAG Nonreactive 07/20/2018 Vitals: 07/26/18 1145 BP: 181/81 Pulse: 90 Resp: 20 Temp: 98.2 F (36.8 C) SpO2: HD x 3.5hrs. UF net 3.5L. Treatment tolerated well the patient awake and alert, not in distress. * Basic metabolic panel (07/26/2018 8:19 AM DELIVERY ASSISTANT) Only the most recent of 5 results within the time period is included. Sodium 135 (L) 136 - 145 meq/L [facility] Potassium 5.0 3.5 - 5.1 meq/L [facility] Chloride 99 98 - 107 meq/L [facility] CO2 27 22 - 29 meq/L [facility] BUN 46 (H) 7 - 21 mg/dL [facility] Creatinine 9.49 (H) 0.57 - 1.25 mg/dL [facility] Glucose 108 (H) 70 - 105 mg/dL [facility] Calcium 8.2 (L) 8.4 - 10.2 mg/dL [facility] EGFR 5Comment: ESTIMATED GFR IS NOT mL/min/1.73 sq m [facility] ACCURATE CREATININE [facility] CLEARANCE IN PREDICTING GLOMERULAR FILTRATION RATE. ESTIMATED GFR IS NOT APPLICABLE FOR DIALYSIS PATIENTS. Specimen Blood - Arm, Left Performing Organization Address City/State/Zipcode Phone Number [facility] [address] [place] [address] [facility] * Tissue Exam (07/25/2018 1:05 PM DELIVERY ASSISTANT) Case Report Surgical Pathology [facility] Report [facility] Case: [id number] Authorizing Provider:Goyo Haji, Collected: 07/25/2018 1305 Ordering Location: [facility] PERIOPERATIVE Received: 07/25/2018 1439 SERVICES Pathologist: Cristobal Triana MD Specimen:Toe, Left, SECOND TOE DIAGNOSIS TOE, LEFT 2ND, AMPUTATION: [facility] - SKIN, SOFT TISSUE, AND BONE [facility] MARGINS, VIABLE AND NEGATIVE FOR ACUTE INFLAMMATION - SKIN WITH REACTIVE CHANGES - UNDERLYING BONE WITH CHRONIC OSTEOMYELITIS Signing Pathologist Direct Phone Line: [phone] CPT Code(s) 90931, 72069 [facility] CLINICAL HISTORY Gangrene of toe [facility] Per review of the electronic [facility] medical record in EPIC: this is a 73 year old woman with diabetes and peripheral artery disease with left second toe gangrene. Operative finding of gangrene without infection. SPECIMEN SOURCE Second left toe [facility] GROSS DESCRIPTION The specimen is received in a [facility] formalin-filled container [facility] labeled with the patient's information and labeled "left second toe" and consists of a second amputated digit measuring 7 x 2 x 1 cm. The skin has a distal area that is gangrenous measuring 2.5 x 1 cm. The area is located 1.5 cm from the skin margin. Section code: A1, skin margin en face; A2, bone margin en face submitted for decalcification; A3, cross section of necrosis and underlying bone submitted for decal. CG/ew MICROSCOPIC DESCRIPTION Performed. [facility] Specimen Tissue - Toe, Left Performing Organization Address City/[facility] Phone Number [facility] [address] [place] [address] [facility] * HEMODIALYSIS INPATIENT (07/24/2018 7:50 PM DELIVERY ASSISTANT) Narrative Performed At Alyson Stoddard RN 07/24/20188:39 PM Procedure tolerated well. Vital signs stable. HD duration 3.5 hours UF 3.5 L Lab Results Component Value Date WBC 5.1 07/24/2018 HGB 10.6 (L) 07/24/2018 HCT 35.9 07/24/2018 MCV 91.6 07/24/2018 PLT 235 07/24/2018 PLT 235 07/24/2018 Lab Results Component Value Date GLUCOSE 160 (H) 07/24/2018 CALCIUM 8.3 (L) 07/24/2018 NA 138 07/24/2018 K 4.7 07/24/2018 CO2 26 07/24/2018 CL 99 07/24/2018 BUN 53 (H) 07/24/2018 CREATININE 9.80 (H) 07/24/2018 No components found for: HEPSAG Vitals: 07/24/181999 BP: Pulse: 79 Resp: 24 Temp: SpO2: * Phosphorus (07/24/2018 4:17 PM DELIVERY ASSISTANT) Only the most recent of 3 results within the time period is included. Phosphorus 5.5 (H) 2.3 - 4.7 mg/dL [facility] Specimen Blood Performing Organization Address City/[facility] Phone Number [facility] [address] [place] [address] [facility] * Platelet Aggregation: Function Screen (07/24/2018 3:24 AM DELIVERY ASSISTANT) Weak ADP 37 (L) 60 - 91 % [facility] Plt. Function Screen 0-39% indicates marked [facility] Interpretation platelet dysfunction [facility] Pathologist: Soledad Vilchis MD (electronic [facility] signature) [facility] Platelets 235 150 - 430 K/CU MM [facility] Specimen Blood - Arm, Right Narrative Performed At Platelet Function Screen results may be falsely low with platelet counts [facility] <100,000/cu mm. [facility] Performing Organization Address City/State/Zipcode Phone Number [facility] [address] [place] [address] [facility] * CBC with platelet count + automated diff (07/24/2018 3:24 AM DELIVERY ASSISTANT) Only the most recent of 4 results within the time period is included. WBC 5.1 3.5 - 10.5 K/L [facility] RBC 3.92 (L) 3.93 - 5.22 M/L [facility] Hemoglobin 10.6 (L) 11.2 - 15.7 GM/DL [facility] Hematocrit 35.9 34.1 - 44.9 % [facility] MCV 91.6 79.4 - 94.8 fL [facility] MCH 27.0 25.6 - 32.2 pg [facility] MCHC 29.5 (L) 32.2 - 35.5 GM/DL [facility] RDW 15.3 (H) 11.7 - 14.4 % [facility] Platelets 235 150 - 450 K/CU MM [facility] MPV 11.9 9.4 - 12.3 fL [facility] nRBC 0 0 - 0 /100 WBC [facility] % Neutros 71 % [facility] % Lymphs 18 % [facility] % Monos 8 % [facility] % Eos 2 % [facility] % Baso 0 % [facility] # Neutros 3.66 1.56 - 6.13 K/L [facility] # Lymphs 0.90 (L) 1.18 - 3.74 K/L [facility] # Monos 0.41 (H) 0.24 - 0.36 K/L [facility] # Eos 0.12 0.04 - 0.36 K/L [facility] # Baso 0.02 0.01 - 0.08 K/L [facility] Immature 0 0 - 1 % [facility] Granulocytes-Relative [facility] Specimen Blood - Arm, Right Performing Organization Address City/[facility] [place] [address] [phone] [place] [address] * POC ACTIVATED CLOTTING TIME (07/23/2018 7:09 PM DELIVERY ASSISTANT) Only the most recent of 5 results within the time period is included. Activated Clotting Time 136Comment: TESTED AT [facility] sec [address] Specimen Blood Performing Organization Address City/[facility] [place] [address] [facility] * HEMODIALYSIS INPATIENT (07/22/2018 8:37 PM DELIVERY ASSISTANT) Narrative Performed At Romario Wolff RN 07/22/20188:40 PM Hemodialysis terminated 1 hours early per pt's request and signed against medical advice. Dr. Carranza called and notified , answering service informed, message was relayed to Dr. Alvarez. Ultrafiltration- 2700 ml. PT AAOX4, V/S stable , no distress. AV graft site with dressing, no bleeding noted. Report given. BP 117/57| Pulse 75| Temp 98.2 F (36.8 C)| Resp 22| Ht 1.707 m (5' 7.2")| Wt (!) 113.4 kg (250 lb)| SpO2 100%| BMI 38.92 kg/m Allergies Allergen Reactions Pneumococcal Vaccine Shortness Of Breath Pneumovax 23 [Pneumococcal 23-Nancy Ps Vaccine] Hives and Shortness Of Breath Atorvastatin Other (See Comments) Lab Results Component Value Date HEPBSAB <8.0 03/28/2015 Lab Results Component Value Date GLUCOSE 179 (H) 07/22/2018 K 4.6 07/22/2018 CALCIUM 8.2 (L) 07/22/2018 NA 137 07/22/2018 CO2 25 07/22/2018 CL 97 (L) 07/22/2018 BUN 63 (H) 07/22/2018 CREATININE 11.24 (H) 07/22/2018 Lab Results Component Value Date WBC 5.1 07/22/2018 HCT 34.8 07/22/2018 MCV 90.2 07/22/2018 PLT 207 07/22/2018 ROMARIO WOLFF RN * Clostridium difficile GDH Toxin (07/21/2018 2:11 PM DELIVERY ASSISTANT) C. Difficle Toxin Negative Negative [facility] C. Difficile GDH Antigen NegativeComment: No indication Negative [facility] of Clostridium difficile [facility] infection and no colonization. Discontinue enteric isolation and therapy. Specimen Stool - Stool Narrative Performed At Testing performed by [employer] Rapid Cassette Assay.For GDH, published [facility] sensitivity of the assay is 98.7% compared to cytotoxicity testing.For Toxin [facility] AB, published sensitivity is 87.8% and specificity 99.4% compared to cytotoxicity testing. Verification of kit performance was done by the [facility] Microbiology Lab prior to clinical use. Performing Organization Address City/State/Zipcode Phone Number [facility] [address] [place] [address] [facility] * HEMODIALYSIS INPATIENT (07/20/2018 7:18 PM DELIVERY ASSISTANT) Narrative Performed At Harjinder Dan RN 07/20/20187:20 PM Lab Results Component Value Date WBC 6.2 07/20/2018 HGB 10.4 (L) 07/20/2018 HCT 34.6 07/20/2018 MCV 90.3 07/20/2018 PLT 184 07/20/2018 Lab Results Component Value Date GLUCOSE 195 (H) 07/20/2018 CALCIUM 6.5 (L) 07/20/2018 NA 134 (L) 07/20/2018 K 4.3 07/20/2018 CO2 19 (L) 07/20/2018 CL 98 07/20/2018 BUN 89 (H) 07/20/2018 CREATININE 15.18 (H) 07/20/2018 Lab Results Component Value Date HEPBSAG Nonreactive 07/20/2018 Vitals: 07/20/18 1905 BP: 175/84 Pulse: 95 Resp: 21 Temp: 97.9 F (36.6 C) SpO2: HD x 4hrs. UF net 4L. Treatment tolerated well. Pt awake and alert. * Hepatitis B surface antigen (07/20/2018 2:58 PM DELIVERY ASSISTANT) hepatitis B Surface Ag NON-REACTIVE Nonreactive [facility] Specimen Blood - Arm, Left Narrative Performed At For chronic HD patients, draw HBsAg with each admission then every 30 days. [facility] Performing Organization Address City/[facility] Phone Number [facility] [address] [place] [address] [facility] * PT/aPTT (05/18/2018 11:32 AM CDT) Protime 14.3 11.7 - 14.7 seconds [facility] INR 1.1 <=5.9 [facility] PTT 30.9 22.5 - 36.0 seconds [facility] Specimen Blood - Arm, Right Narrative Performed At RECOMMENDED COUMADIN/WARFARIN INR THERAPY RANGES [facility] STANDARD DOSE: 2.0 - 3.0 Includes: PROPHYLAXIS for venous thrombosis, [facility] systemic embolization; TREATMENT for venous thrombosis and/or pulmonary embolus. HIGH RISK: Target INR is 2.5-3.5 for patients with mechanical heart valves. Performing Organization Address [facility]/Zipcode Phone Number [facility] [address] [place] [address] [facility] after 08/19/2017 Insurance Payer Benefit Subscriber ID Type Phone Address Plan / Group [employer] K[employer] xxxxxxxxxxx MEDICARE ADV Advance Directives For more information, please contact: [facility] [address] [place] [phone] Date Inactivated Comments Code Status Date Activated Full Code 07/19/2018 10:21 PM This code status was determined by: Patient 04/30/2015 8:20 PM Full Code 04/29/2015 10:32 [...]
[2018-08-21 01:04] LABS: ANION GAP 26.8 mmol/L (8-16); CALCIUM 7.8 mg/dL (8.4-10.2); CREATININE, SERUM 16.71 mg/dL (0.57-1.11); POTASSIUM 4.8 mmol/L (3.5-5.1)
== END 2018-08-21 01:55 | disposition home or self-care (01) ==
LOC: ER 21:15
DX: R53.1 Weakness (principal); I12.0 Hypertensive chronic kidney disease with stage 5 chronic kidney disease or end stage renal disease; E11.22 Type 2 diabetes mellitus with diabetic chronic kidney disease; N18.6 End stage renal disease; Z99.2 Dependence on renal dialysis; J44.9 Chronic obstructive pulmonary disease, unspecified; I50.9 Heart failure, unspecified; F31.9 Bipolar disorder, unspecified
CPT/HCPCS: 36415; 80048; 99283

== ENCOUNTER 2018-11-06 13:20 | Inpatient (IN) | payer MEDICARE ==
[~2018-11-06] VITALS: Ht 167.6 cm; Wt 103.0 kg
--- OUTSIDE RECORDS SUMMARY | 2018-11-06 13:23 | XMS REPORT | Clinical Summary ---
Author Author YADIEL [facility] Address Unknown Phone Unavailable Care Team Providers Care Button Riveter Name Role Phone Tl Patel PCP Allergies [...] strength vitamin D (around 01/02/14), start taking bgqv-idm-bcld ter vitamin D3 2000 units daily.. Active calcium acetate (PHOSLO) Take 2,001 mg [...] (10 mg total) 9 by mouth daily. Active aspirin 81 MG EC tablet Take 81 mg by 0 mouth daily. Active levothyroxine (SYNTHROID, Take 175 mcg 0 LEVOTHROID) 175 MCG by mouth tablet Every morning on an empty stomach. Active insulin NPH (HUMULIN N) Inject 13 0 100 unit/mL injection Units 9 subcutaneousl y 2 (two) times daily before meals Do not give if Accu-Cheks less than 150. Active bisacodyl (DULCOLAX) 5 mg Take 2 0 EC tablet tablets (10 9 mg total) by mouth daily as needed for Constipation. Active epoetin jyothi-epbx Inject 1 mL 0 (RETACRIT) 10,000 unit/mL (10,000 Units 9 Soln total) injectionIndications: subcutaneousl Anemia in Chronic Kidney y 3 (three) Disease times a week at bedtime. Active famotidine (PEPCID) 20 MG Take 1 tablet 0 tablet (20 mg total) 9 by mouth daily. Active fluticasone (FLONASE) 50 1 spray by 0 mcg/actuation nasal spray Nasal route 9 daily. Active heparin injection 5,000 Inject 1 mL 0 units/mL for DVT (5,000 Units 9 prophylaxis/dialysis total) lock/IV bolus subcutaneousl y every 12 (twelve) hours. Active HYDROcodone-acetaminophen Take 1 tablet 15 tablet 0 (NORCO 5-325) 5-325 mg by mouth 9 per tablet every 6 (six) hours as needed (For severe pain). Max Daily Amount: 4 tablets 09/17/2019 Active insulin lispro (HUMALOG) Inject 0-12 10 mL 0 100 unit/mL injection Units 9 subcutaneousl y as needed (High blood sugar). 09/17/2019 Active insulin lispro (HUMALOG) Inject 0-4 10 mL 0 100 unit/mL injection Units 9 subcutaneousl y every night as needed (High blood sugar). Active polyethylene glycol Take 17 g by 0 (GLYCOLAX) 17 gram packet mouth daily. 9 09/09/2018 Discontinued coenzyme Q10 200 mg Take by mouth 0 capsule daily . 09/09/2018 Discontinued omega 3-biz-xbr-fish oil Take 6 0 (FISH OIL) 1,000 capsules by (120-180) mg Cap mouth. 09/09/2018 Discontinued FOLIC ACID ORAL Take 1 tablet 0 by mouth. 09/09/2018 Discontinued senna (SENOKOT) 8.6 mg Take 1 tablet 0 tablet by mouth. 09/09/2018 Discontinued diclofenac (VOLTAREN) 1 % Apply 0 Gel BID-QID. 4 07/19/2018 Discontinued simvastatin (ZOCOR) 5 MG Take 1 tablet 90 tablet 0 tablet (5 mg total) 5 by mouth nightly. 09/09/2018 Discontinued omeprazole (PRILOSEC) 40 Take 1 90 capsule 0 MG capsule capsule (40 5 mg total) by mouth daily. 09/09/2018 Discontinued albuterol HFA (PROVENTIL Inhale 2 1 Inhaler 3 HFA) 90 mcg/actuation puffs by 5 inhaler mouth via inhaler every 4 (four) hours as needed for Wheezing. 07/19/2018 Discontinued allopurinol (ZYLOPRIM) Take 3 30 tablet 3 100 MG tablet tablets (300 5 mg total) by mouth daily TAKE ONE TABLET BY MOUTH EVERY DAY. 09/09/2018 Discontinued phenyleph-shark Place 0 ixr-ormq-iik rectally as (HEMORRHOIDAL) Crea needed. 09/09/2018 Discontinued aspirin 81 MG chewable Take 81 mg by 0 tablet mouth daily. 07/19/2018 Discontinued divalproex (DEPAKOTE) 500 Take 500 [...] 10 days. Max Daily Amount: 3 tablets 09/17/2018 Discontinued clindamycin (CLEOCIN) 300 Take 300 mg 0 MG capsule by mouth 3 (three) times daily. 09/17/2018 Discontinued oxyCODONE-acetaminophen Take 1 tablet 0 (PERCOCET) 5-325 mg per by mouth tablet every 8 (eight) hours as needed for Pain. 09/17/2018 Discontinued insulin NPH (HUMULIN N) Inject 60 0 100 unit/mL injection Units subcutaneousl y every morning And 30 units sq q pm . Active Problems Problem Noted Date Fever 09/13/2018 GERD (gastroesophageal reflux disease) 09/10/2018 PAD (peripheral artery disease) 09/10/2018 Type 2 diabetes mellitus with hyperglycemia, with long-term current use of 09/10/2018 insulin Hypothyroidism 09/10/2018 ESRD on hemodialysis 09/10/2018 Chronic anemia 09/10/2018 Gangrene of toe of left foot 09/09/2018 DAVID (obstructive sleep apnea) 02/02/2015 Overview: suspected Chronic diastolic heart failure 01/22/2015 Chronic gout 01/22/2015 Hyperlipidemia 01/17/2015 Class 2 severe obesity with serious comorbidity in adult 01/17/2015 Essential hypertension Resolved Problems Problem Noted Date Resolved Date Tortuous aorta 09/10/2018 09/10/2018 Diastolic CHF 09/10/2018 09/10/2018 Dementia 09/10/2018 09/10/2018 Mixed diabetic hyperlipidemia associated with type 2 diabetes mellitus 09/10/2018 09/10/2018 Type 2 diabetes with nephropathy 09/10/2018 09/10/2018 Type 2 diabetes mellitus with peripheral neuropathy 09/10/2018 09/10/2018 Atherosclerosis of aorta 09/10/2018 09/10/2018 Diabetes mellitus type 2 with atherosclerosis of arteries of extremities 09/10/2018 09/10/2018 Toe gangrene 07/19/2018 09/10/2018 Fecal impaction 04/29/2015 09/10/2018 Constipation 04/29/2015 09/10/2018 ESRD (end stage renal disease) 04/06/2015 09/10/2018 Complication, dialysis catheter clot or failure 03/27/2015 09/10/2018 Acute on chronic diastolic congestive heart failure 02/01/2015 09/10/2018 ESRD needing dialysis 02/01/2015 09/10/2018 Syncope 02/01/2015 09/10/2018 Bipolar disorder, unspecified, H/O 01/22/2015 09/10/2018 Esophageal reflux, H/O 01/22/2015 09/10/2018 COPD with asthma, H/O 01/22/2015 09/10/2018 Dementia arising in the senium and presenium, H/O 01/22/2015 09/10/2018 Diabetic peripheral neuropathy, H/O 01/22/2015 09/10/2018 Volume overload 01/17/2015 09/10/2018 Diabetes mellitus 01/17/2015 09/10/2018 Encounters Care Team Description Date Type Specialty Lola Mcneil MD 09/10/2018 Anesthesia Event Goyo Haji MD AMPUTATION,FOOT 09/10/2018 Surgery Juan J Ocasio MD 09/09/2018 [facility] General Internal Medicine - Encounter 09/17/2018 09/09/2018 Travel Goyo Haji MD AMPUTATION,TOE 07/25/2018 Surgery Suresh Roberts MD 07/25/2018 Anesthesia Event Jonathan Wood MD PERIPHERAL ANGIOS / AORTOGRAM 07/23/2018 Surgery 07/20/2018 Travel Jr Lala MD [facility], Fely Acevedo MD 07/19/2018 [facility] Cardiology - Encounter 07/27/2018 Bakari Cuenca MD Hemorrhoids, unspecified hemorrhoid type (Primary Dx); Essential hypertension; ESRD (end stage renal disease) (HCC); Simple chronic bronchitis (HCC) 05/18/2018 Emergency Emergency Medicine 05/18/2018 Travel after 11/05/2017 Social History Date Tobacco Use Types Packs/Day Years Used Never Smoker Smokeless Tobacco: Never Used Alcohol Use Drinks/Week oz/Week Comments No Sex Assigned at Date Recorded Not on file Industry Job Start Date Occupation Not on file Not on file Not on file Travel End Travel History Travel Start No recent travel history available. Last Filed Vital Signs Time Taken Vital Sign Reading 09/17/2018 3:17 PM [facility] Blood Pressure 136/62 09/17/2018 3:17 PM [employer] Pulse 76 09/17/2018 3:17 PM [employer] Temperature 35.8 C (96.4 F) 09/17/2018 3:17 PM [employer] Respiratory Rate 20 09/17/2018 3:17 PM [facility] Oxygen Saturation 98% - Inhaled Oxygen - Concentration 09/17/2018 8:45 AM [facility] [facility] Weight 104.7 kg (230 lb 13.2 oz) 09/09/2018 9:34 PM [employer] Height 167.6 cm (5' 6") 09/17/2018 8:45 AM [facility] [facility] Body Mass Index 37.26 Plan of Treatment Not on file Procedures Comments Procedure Name Priority Date/Time Associated Diagnosis RHYTHM STRIP - SCAN 09/20/2018 10:00 AM [facility] [facility] POCT-GLUCOSE METER Routine 09/17/2018 2:43 PM [employer] HEMODIALYSIS INPATIENT Routine 09/17/2018 1:30 PM [employer] POCT-GLUCOSE METER Routine 09/17/2018 12:50 PM [employer] POCT-GLUCOSE METER Routine 09/17/2018 8:19 AM [facility] CBC W/PLT COUNT & AUTO Routine 09/17/2018 DIFFERENTIAL 5:09 AM [employer] BASIC METABOLIC PANEL (7) Routine 09/17/2018 5:09 AM [facility] CBC W/PLT COUNT & AUTO Routine 09/17/2018 DIFFERENTIAL 5:09 AM [employer] POCT-GLUCOSE METER Routine 09/16/2018 9:36 PM [employer] POCT-GLUCOSE METER Routine 09/16/2018 5:57 PM [employer] POCT-GLUCOSE METER Routine 09/16/2018 12:15 PM [employer] POCT-GLUCOSE METER Routine 09/16/2018 8:07 AM [employer] POCT-GLUCOSE METER Routine 09/15/2018 9:27 PM [employer] POCT-GLUCOSE METER Routine 09/15/2018 4:30 PM [employer] POCT-GLUCOSE METER Routine 09/15/2018 11:42 AM [employer] POCT-GLUCOSE METER Routine 09/15/2018 9:31 AM [employer] POCT-GLUCOSE METER Routine 09/14/2018 9:22 PM [employer] HEMODIALYSIS INPATIENT Routine 09/14/2018 6:47 PM [employer] BASIC METABOLIC PANEL (7) Routine 09/14/2018 4:09 PM [employer] POCT-GLUCOSE METER Routine 09/14/2018 12:50 PM [employer] POCT-GLUCOSE METER Routine 09/14/2018 8:56 AM [employer] BLOOD CULTURE STAT 09/14/2018 6:43 AM [facility] CBC W/PLT COUNT & AUTO Routine 09/14/2018 DIFFERENTIAL 6:42 AM [employer] CBC W/PLT COUNT & AUTO Routine 09/14/2018 DIFFERENTIAL 6:42 AM [employer] POCT-GLUCOSE METER Routine 09/13/2018 8:57 PM [employer] BLOOD CULTURE STAT 09/13/2018 8:40 PM [employer] POCT-GLUCOSE METER Routine 09/13/2018 6:55 PM [employer] POCT-GLUCOSE METER Routine 09/13/2018 12:54 PM [employer] POCT-GLUCOSE METER Routine 09/13/2018 8:10 AM [facility] CBC W/PLT COUNT & AUTO Routine 09/13/2018 DIFFERENTIAL 4:59 AM [employer] CBC W/PLT COUNT & AUTO Routine 09/13/2018 DIFFERENTIAL 4:59 AM [employer] POCT-GLUCOSE METER Routine 09/12/2018 9:36 PM [employer] POCT-GLUCOSE METER Routine 09/12/2018 5:46 PM [employer] POCT-GLUCOSE METER Routine 09/12/2018 4:07 PM [facility] HEMODIALYSIS INPATIENT Routine 09/12/2018 1:00 PM [facility] POCT-GLUCOSE METER Routine 09/12/2018 7:20 AM [facility] CBC W/PLT COUNT & AUTO Routine 09/12/2018 DIFFERENTIAL 4:51 AM [facility] BASIC METABOLIC PANEL (7) Routine 09/12/2018 4:51 AM [facility] CBC W/PLT COUNT & AUTO Routine 09/12/2018 DIFFERENTIAL 4:51 AM [employer] POCT-GLUCOSE METER Routine 09/11/2018 9:08 PM [facility] POCT-GLUCOSE METER Routine 09/11/2018 6:18 PM [facility] TRANSFUSION SERVICE 09/11/2018 REPORT - SCAN 6:01 PM [employer] POCT-GLUCOSE METER Routine 09/11/2018 1:00 PM [employer] POCT-GLUCOSE METER Routine 09/11/2018 9:13 AM [facility] CBC W/PLT COUNT & AUTO Routine 09/11/2018 DIFFERENTIAL 4:56 AM [facility] BASIC METABOLIC PANEL (7) Routine 09/11/2018 4:56 AM [facility] CBC W/PLT COUNT & AUTO Routine 09/11/2018 DIFFERENTIAL 4:56 AM [facility] PT/APTT Routine 09/11/2018 4:56 AM [employer] POCT-GLUCOSE METER Routine 09/10/2018 9:57 PM [facility] POCT-GLUCOSE METER Routine 09/10/2018 7:00 PM [facility] POCT-GLUCOSE METER Routine 09/10/2018 5:10 PM [facility] TISSUE EXAM AP Routine 09/10/2018 1:58 PM [facility] [facility] POTASSIUM-STAT LAB STAT 09/10/2018 12:59 PM [facility] AMPUTATION,FOOT 09/10/2018 Gangrene (HCC) 12:20 PM [facility] Case Notes 2 HRS PER CRISTIAN ENCISO BY CINDY TO POST @ 1/09/09 @ 1:54 HEMODIALYSIS INPATIENT Routine 09/10/2018 12:17 PM [facility] IRON, TIBC, % SAT. Routine 09/10/2018 (WITHOUT FERRITIN) 10:37 AM [facility] PHOSPHORUS Routine 09/10/2018 10:37 AM [facility] TYPE AND SCREEN, STAT 09/10/2018 AUTOMATED 2:46 AM [facility] PT/APTT Routine 09/10/2018 2:46 AM [facility] CBC W/PLT COUNT & AUTO STAT 09/09/2018 DIFFERENTIAL 11:57 PM [employer] HEPATITIS B SURFACE Routine 09/09/2018 ANTIGEN 11:57 PM [facility] CBC W/PLT COUNT & AUTO STAT 09/09/2018 DIFFERENTIAL 11:57 PM [employer] MAGNESIUM STAT 09/09/2018 11:57 PM [facility] HEPATIC FUNCTION PANEL STAT 09/09/2018 11:57 PM [facility] BASIC METABOLIC PANEL (7) STAT 09/09/2018 11:57 PM [facility] POCT-GLUCOSE METER Routine 09/09/2018 11:12 PM [facility] VASCULAR DIAGRAM -SCAN 09/05/2018 4:40 PM [facility] VASCULAR DIAGRAM -SCAN 08/19/2018 9:10 AM [employer] RHYTHM STRIP - SCAN 08/19/2018 9:10 AM [facility] CARDIAC CATH REPORT - 08/19/2018 SCAN 9:10 AM [employer] POCT-GLUCOSE METER Routine 07/27/2018 12:42 PM [employer] POCT-GLUCOSE METER Routine 07/27/2018 9:08 AM [employer] POCT-GLUCOSE METER Routine 07/26/2018 9:29 PM [employer] POCT-GLUCOSE METER Routine 07/26/2018 5:55 PM [employer] POCT-GLUCOSE METER Routine 07/26/2018 12:10 PM [facility] HEMODIALYSIS INPATIENT Routine 07/26/2018 11:52 AM [facility] BASIC METABOLIC PANEL (7) Routine 07/26/2018 8:19 AM [facility] POCT-GLUCOSE METER Routine 07/25/2018 9:49 PM [employer] POCT-GLUCOSE METER Routine 07/25/2018 6:02 PM [facility] POCT-GLUCOSE METER Routine 07/25/2018 1:37 PM [facility] TISSUE EXAM AP Routine 07/25/2018 1:05 PM [facility] AMPUTATION,TOE 07/25/2018 Gangrene of toe (HCC) 1:01 PM [facility] POCT-GLUCOSE METER Routine 07/25/2018 8:06 AM [employer] POCT-GLUCOSE METER Routine 07/24/2018 11:08 PM [facility] HEMODIALYSIS INPATIENT Routine 07/24/2018 7:50 PM [employer] PHOSPHORUS Routine 07/24/2018 4:17 PM [employer] POCT-GLUCOSE METER Routine 07/24/2018 12:33 PM [employer] POCT-GLUCOSE METER Routine 07/24/2018 7:31 AM [facility] CBC W/PLT COUNT & AUTO Routine 07/24/2018 DIFFERENTIAL 3:24 AM [facility] CBC W/PLT COUNT & AUTO Routine 07/24/2018 DIFFERENTIAL 3:24 AM [facility] BASIC METABOLIC PANEL (7) Routine 07/24/2018 3:24 AM [facility] PLATELET AGGREGATION: AP Routine 07/24/2018 FUNCTION SCREEN 3:24 AM [employer] POCT-GLUCOSE METER Routine 07/23/2018 9:20 PM [employer] POCT-ACT Routine 07/23/2018 7:09 PM [employer] POCT-GLUCOSE METER Routine 07/23/2018 6:32 PM [employer] POCT-ACT Routine 07/23/2018 5:47 PM [employer] POCT-ACT Routine 07/23/2018 4:42 PM [employer] POCT-ACT Routine 07/23/2018 2:38 PM [employer] POCT-GLUCOSE METER Routine 07/23/2018 1:25 PM [employer] POCT-ACT Routine 07/23/2018 10:13 AM [employer] PERIPHERAL ANGIOS / 07/23/2018 Peripheral arterial AORTOGRAM 9:15 AM [employer] disease (HCC) Case Notes (2) CASE 1830 POCT-GLUCOSE METER Routine 07/23/2018 6:42 AM [employer] POCT-GLUCOSE METER Routine 07/22/2018 9:21 PM [employer] HEMODIALYSIS INPATIENT Routine 07/22/2018 8:37 PM [facility] CBC W/PLT COUNT & AUTO Routine 07/22/2018 DIFFERENTIAL 4:08 PM [employer] PHOSPHORUS Routine 07/22/2018 4:08 PM [facility] BASIC METABOLIC PANEL (7) Routine 07/22/2018 4:08 PM [employer] CBC W/PLT COUNT & AUTO Routine 07/22/2018 DIFFERENTIAL 4:08 PM [employer] POCT-GLUCOSE METER Routine 07/22/2018 11:33 AM [employer] POCT-GLUCOSE METER Routine 07/21/2018 9:06 PM [employer] POCT-GLUCOSE METER Routine 07/21/2018 4:10 PM [employer] C. DIFFICILE GDH TOXIN Routine 07/21/2018 2:11 PM [employer] POCT-GLUCOSE METER Routine 07/21/2018 11:28 AM [employer] POCT-GLUCOSE METER Routine 07/21/2018 7:46 AM [employer] POCT-GLUCOSE METER Routine 07/20/2018 9:21 PM [employer] HEMODIALYSIS INPATIENT Routine 07/20/2018 7:18 PM [employer] POCT-GLUCOSE METER Routine 07/20/2018 4:42 PM [employer] HEPATITIS B SURFACE Routine 07/20/2018 ANTIGEN 2:58 PM [employer] PHOSPHORUS Routine 07/20/2018 2:58 PM [employer] POCT-GLUCOSE METER Routine 07/20/2018 11:33 AM [employer] POCT-GLUCOSE METER Routine 07/20/2018 7:53 AM [facility] CBC W/PLT COUNT & AUTO Routine 07/20/2018 DIFFERENTIAL 6:02 AM [facility] BASIC METABOLIC PANEL (7) Routine 07/20/2018 6:02 AM [facility] CBC W/PLT COUNT & AUTO Routine 07/20/2018 DIFFERENTIAL 6:02 AM [facility] POCT-GLUCOSE METER Routine 07/19/2018 8:27 PM [facility] CBC W/PLT COUNT & AUTO STAT 05/18/2018 DIFFERENTIAL 11:32 AM CDT BASIC METABOLIC PANEL (7) STAT 05/18/2018 11:32 AM CDT CBC W/PLT COUNT & AUTO STAT 05/18/2018 DIFFERENTIAL 11:32 AM CDT PT/APTT STAT 05/18/2018 11:32 AM CDT after 11/05/2017 Results * RHYTHM STRIP - SCAN (09/20/2018 10:00 AM [facility]) Only the most recent of 2 results within the time period is included. Narrative Performed At * POC-Glucose meter (09/17/2018 2:43 PM [facility]) Only the most recent of 57 results within the time period is included. POC-Glucose Meter 192 (H)Comment: TESTED AT 70 - 110 mg/dL [facility] [address] [place] [id number] Specimen Blood Performing Organization Address City/State/Zipcode Phone Number [address] [phone] [facility] * HEMODIALYSIS INPATIENT (09/17/2018 1:30 PM [facility]) Narrative Performed At Alyson Stoddard RN 09/17/20181:54 PM Procedure tolerated well. Vital signs stable. HD duration4 hoursUF 3 L via left upper arm AV Graft. Lab Results Component Value Date WBC 5.9 09/17/2018 HGB 8.3 (L) 09/17/2018 HCT 29.5 (L) 09/17/2018 MCV 92.2 09/17/2018 PLT 247 09/17/2018 Lab Results Component Value Date GLUCOSE 124 (H) 09/17/2018 CALCIUM 10.2 09/17/2018 NA 136 09/17/2018 K 4.3 09/17/2018 CO2 29 09/17/2018 CL 99 09/17/2018 BUN 38 (H) 09/17/2018 CREATININE 7.60 (H) 09/17/2018 No components found for: HEPSAG Vitals: 09/17/18 1330 BP: 117/61 Pulse: 87 Resp: 22 Temp: SpO2: 100% * CBC with platelet count + automated diff (09/17/2018 5:09 AM [facility]) Only the most recent of 10 results within the time period is included. WBC 5.9 3.5 - 10.5 K/L [facility] RBC 3.20 (L) 3.93 - 5.22 M/L [facility] Hemoglobin 8.3 (L) 11.2 - 15.7 GM/DL [facility] Hematocrit 29.5 (L) 34.1 - 44.9 % [facility] MCV 92.2 79.4 - 94.8 fL [facility] MCH 25.9 25.6 - 32.2 pg [facility] MCHC 28.1 (L) 32.2 - 35.5 GM/DL [facility] RDW 15.4 (H) 11.7 - 14.4 % [facility] Platelets 247 150 - 450 K/CU MM [facility] MPV 10.7 9.4 - 12.3 fL [facility] nRBC 0 0 - 0 /100 WBC [facility] % Neutros 68 % [facility] % Lymphs 19 % [facility] % Monos 10 % [facility] % Eos 2 % [facility] % Baso 0 % [facility] # Neutros 4.01 1.56 - 6.13 K/L [facility] # Lymphs 1.10 (L) 1.18 - 3.74 K/L [facility] # Monos 0.61 (H) 0.24 - 0.36 K/L [facility] # Eos 0.13 0.04 - 0.36 K/L [facility] # Baso 0.01 0.01 - 0.08 K/L [facility] Immature 0 0 - 1 % [facility] Granulocytes-Relative [facility] Specimen Blood Performing Organization Address City/State/Zipcode Phone Number [facility] [address] [place], [place] [phone] [facility] * Basic Metabolic Panel (09/17/2018 5:09 AM [facility]) Only the most recent of 10 results within the time period is included. Sodium 136 136 - 145 meq/L [facility] Potassium 4.3 3.5 - 5.1 meq/L [facility] Chloride 99 98 - 107 meq/L [facility] CO2 29 22 - 29 meq/L [facility] BUN 38 (H) 7 - 21 mg/dL [facility] Creatinine 7.60 (H) 0.57 - 1.25 mg/dL [facility] Glucose 124 (H) 70 - 105 mg/dL [facility] Calcium 10.2 8.4 - 10.2 mg/dL [facility] EGFR 6Comment: ESTIMATED GFR IS NOT mL/min/1.73 sq m [facility] ACCURATE CREATININE [facility] CLEARANCE IN PREDICTING GLOMERULAR FILTRATION RATE. ESTIMATED GFR IS NOT APPLICABLE FOR DIALYSIS PATIENTS. Specimen Blood Performing Organization Address City/[facility]/Zipcode Phone Number [facility] [address] [place] [address] [facility] * Blood Culture - Routine (Left Venipuncture) (09/14/2018 6:43 AM [facility]) Only the most recent of 2 results within the time period is included. Result No growth in 5 days [facility] Specimen Blood Performing Organization Address City/State/Zipcode Phone Number [facility] [address] [place] [address] [facility] * HEMODIALYSIS INPATIENT (09/12/2018 1:00 PM [facility]) Narrative Performed At Alyson Stoddard RN 09/12/20181:55 PM Procedure fairly tolerated. Vital signs stable. HD duration4 hoursUF 2 L Lab Results Component Value Date WBC 11.7 (H) 09/12/2018 HGB 8.5 (L) 09/12/2018 HCT 29.9 (L) 09/12/2018 MCV 93.4 09/12/2018 PLT 281 09/12/2018 Lab Results Component Value Date GLUCOSE 110 (H) 09/12/2018 CALCIUM 9.3 09/12/2018 NA 136 09/12/2018 K 4.7 09/12/2018 CO2 29 09/12/2018 CL 96 (L) 09/12/2018 BUN 34 (H) 09/12/2018 CREATININE 8.51 (H) 09/12/2018 No components found for: HEPSAG Vitals: 09/12/18 1330 BP: 105/46 Pulse: 77 Resp: 18 Temp: SpO2: * TRANSFUSION SERVICE REPORT - SCAN (09/11/2018 6:01 PM [facility]) Narrative Performed At * PT/aPTT (09/11/2018 4:56 AM [facility]) Only the most recent of 3 results within the time period is included. Protime 14.3 11.7 - 14.7 seconds [facility] INR 1.1 <=5.9 [facility] PTT 39.3 (H) 22.5 - 36.0 seconds [facility] Specimen Blood Narrative Performed At RECOMMENDED COUMADIN/WARFARIN INR THERAPY RANGES [facility] STANDARD DOSE: 2.0 - 3.0 Includes: PROPHYLAXIS for venous thrombosis, [facility] systemic embolization; TREATMENT for venous thrombosis and/or pulmonary embolus. HIGH RISK: Target INR is 2.5-3.5 for patients with mechanical heart valves. Performing Organization Address City/State/Zipcode Phone Number [facility] [address] [place] [address] [facility] * Tissue Exam (09/10/2018 1:58 PM [facility]) Only the most recent of 2 results within the time period is included. Case Report Surgical Pathology [facility] Report [facility] Case: [id number] Authorizing Provider:Goyo Haji, Collected: 09/10/2018 1358 Ordering Location: [facility] PERIOPERATIVE Received: 09/10/2018 1506 SERVICES Pathologist: Rajesh Lund MD Specimen:Foot, Left, LEFT FOREFOOT DIAGNOSIS FOOT, LEFT FOREFOOT, [facility] AMPUTATION [facility] - GANGRENOUS NECROSIS - DEFINITIVE ACUTE OSTEOMYELITIS NOT IDENTIFIED - FAT NECROSIS IN BONE MARROW UNDERLYING ULCER - SKIN, SOFT TISSUE AND BONE MARGINS VIABLE Signing Pathologist Direct Phone Line: [phone] CPT Code(s) 64052, 23990 [facility] CLINICAL HISTORY Gangrene [facility] SPECIMEN SOURCE Left forefoot [facility] GROSS DESCRIPTION The specimen is received in a [facility] formalin-filled container and [facility] labeled with the patient's information and labeled "left forefoot" and consists of a amputated left forefoot measuring 15 x 8 x 3.5 cm. The second digit has been previously amputated. All other digits are present. The third and previous amputation site of the second digit are involved with gangrene. No other abnormalities are seen. Section code: A1, skin margin en face; A2, cross section of third digit with gangrene and underlying bone with necrotic tissue of previous amputation site of the second digit; A3 to A6, all bone margins, great toe to 5th digit respectively. CG/pl MICROSCOPIC DESCRIPTION Performed. [facility] Specimen Tissue Performing Organization Address City/[facility]/[place]ust[place] Phone Number [facility] [address] [place] [address] [facility] * Potassium-Stat Lab (09/10/2018 12:59 PM [employer]) Potassium 3.7 3.6 - 5.5 meq/L [facility] Specimen Blood, Arterial Performing Organization Address City/[facility]/[employer] Phone Number [facility] [address] [place] [address] [facility] * HEMODIALYSIS INPATIENT (09/10/2018 12:17 PM [employer]) Narrative Performed At Jimbo Pardo RN 09/10/2018 12:17 PM Pt dialyzed for 3.5 hrs via left upper arm AVF.Tolerated treatment well, NET UF=3.5L. Kept NPO. Lab Results Component Value Date WBC 8.4 09/09/2018 HGB 7.9 (L) 09/09/2018 HCT 27.7 (L) 09/09/2018 MCV 92.0 09/09/2018 PLT 228 09/09/2018 Lab Results Component Value Date HEPBSAG Nonreactive 09/09/2018 ] Lab Results Component Value Date HEPBIGM Nonreactive 01/19/2015 HEPBCAB Nonreactive 01/19/2015 Lab Results Component Value Date GLUCOSE 215 (H) 09/09/2018 CALCIUM 8.2 (L) 09/09/2018 NA 135 (L) 09/09/2018 K 3.8 09/09/2018 CO2 29 09/09/2018 CL 94 (L) 09/09/2018 BUN 37 (H) 09/09/2018 CREATININE 9.10 (H) 09/09/2018 Coag Profile: Protime Date Value Ref Range Status 09/10/2018 14.7 11.7 - 14.7 seconds Final INR Date Value Ref Range Status 09/10/2018 1.1 <=5.9 Final PTT Date Value Ref Range Status 09/10/2018 41.0 (H) 22.5 - 36.0 seconds Final * Iron, TIBC, % sat. (without ferritin) (09/10/2018 10:37 AM [facility] [facility]) Iron 20.0 (L) 40.0 - 160.0 ug/dL [facility] TIBC 150 (L) 250 - 450 ug/dL [facility] Iron % Saturation 13 (L) 20 - 55 % [facility] Specimen Blood Performing Organization Address City/State/Zipcode Phone Number [facility] [address] [place] [address] MED[facility]ENTER * Phosphorus (09/10/2018 10:37 AM WHEAT SHIP[employer]) Only the most recent of 4 results within the time period is included. Phosphorus 2.0 (L) 2.3 - 4.7 mg/dL [facility] Specimen Blood Performing Organization Address City/[facility]/Zipcode Phone Number [address] * Type and screen, automated (09/10/2018 2:46 AM WHEAT SHIPPER) ABO/RH AUTOMATED (BEAKER) B POSITIVE [facility] Ab Scrn NEGATIVE [facility] Specimen Blood Performing Organization Address City/[facility]/[place] Phone Number [address] * Hepatitis B surface antigen (09/09/2018 11:57 PM WHE[employer] SH[employer]) Only the most recent of 2 results within the time period is included. hepatitis B Surface Ag NON-REACTIVE Nonreactive [facility] Specimen Blood Performing Organization Address City/[facility]/[place] Phone Number [address] * Magnesium (09/09/2018 11:57 PM WHE[employer] SH[employer]) Magnesium 1.6 1.6 - 2.6 mg/dL [facility] Specimen Blood Performing Organization Address [facility]/[place] Phone Number [address] * Hepatic function panel (09/09/2018 11:57 PM [facility]) Protein, Total 7.0 6.0 - 8.3 gm/dL [facility] Albumin 3.1 (L) 3.5 - 5.0 g/dL [facility] Total Bilirubin 0.3 0.2 - 1.2 mg/dL [facility] Bilirubin, Direct 0.1 0.1 - 0.5 mg/dL [facility] Alkaline Phosphatase 64 40 - 150 U/L [facility] AST 7 5 - 34 U/L [facility] ALT <6 (L) 6 - 55 U/L [facility] Specimen Blood Performing Organization Address City/State/Zipcode Phone Number [facility] [address] [place] [address] MEDICAL CENTER * VASCULAR DIAGRAM -SCAN (09/05/2018 4:40 PM WHEAT [employer]) Only the most recent of 2 results within the time period is included. Narrative Performed At * CARDIAC CATH REPORT - SCAN (08/19/2018 9:10 AM WHE[employer]) Narrative Performed At * HEMODIALYSIS INPATIENT (07/26/2018 11:52 AM WHEAT SH[employer]) Narrative Performed At Harjinder Dan RN 07/26/2018 [...] awake and alert, not in distress. * HEMODIALYSIS INPATIENT (07/24/2018 7:50 PM WHEAT SH[employer]) Narrative Performed At Alyson Stoddard RN 07/24/20188:39 [...] Pulse: 79 Resp: 24 Temp: SpO2: * Platelet Aggregation: Function Screen (07/24/2018 3:24 AM WHEAT SHIPPER) Weak ADP 37 (L) 60 - 91 % [facility] Plt. Function Screen 0-39% indicates marked [facility] Interpretation platelet dysfunction [facility] Pathologist: Soledad Vilchis MD (electronic [facility] signature) [facility] Platelets 235 150 - 430 K/CU MM [facility] Specimen Blood Narrative Performed At Platelet Function Screen results may be falsely low with platelet counts [facility] <100,000/cu mm. [facility] Performing Organization Address City/[facility]/[place] [address] [facility] * POC ACTIVATED CLOTTING TIME (07/23/2018 7:09 PM WHEAT SHIPPER) Only the most recent of 5 results within the time period is included. Activated Clotting Time 136Comment: TESTED AT [facility] sec [address] Specimen Blood Performing Organization Address City/[facility]/[place] [address] [facility] * HEMODIALYSIS INPATIENT (07/22/2018 8:37 PM WHEAT SH[employer]PER) Narrative Performed At Romario Wolff RN 07/22/20188:40 [...] Clostridium difficile [facility]DH Toxin (07/21/2018 2:11 PM WHEAT SHIPPER) C. Difficle Toxin Negative Negative [facility] C. Difficile G[facility] Antigen NegativeComment: No indication Negative [facility] of Clostridium difficile [facility] infection and no colonization. Discontinue enteric isolation and therapy. Specimen Stool Narrative Performed At Testing performed by [employer] Rapid Cassette Assay.For GDH, published [facility] sensitivity of the assay is 98.7% compared to cytotoxicity testing.For Toxin [facility], published sensitivity is 87.8% and specificity 99.4% compared to cytotoxicity testing. Verification of kit performance was done by the [facility] Microbiology Lab prior to clinical use. Performing Organization Address City/State/Zipcode Phone Number [facility] [address] [place] [address] MEDICAL [facility]ENTER * HEMODIALYSIS INPATIENT (07/20/2018 7:18 PM WHEAT [employer]IPPER) Narrative Performed At Harjinder Dan RN 07/20/20187:20 [...] Treatment tolerated well. Pt awake and alert. after 11/05/2017 Insurance Payer Benefit Subscriber ID Type Phone Address Plan / Group [facility] [employer] [facility] MEDIC[facility] ADV Advance Directives For more information, please contact: [address] [address] Date Inactivated Comments Code Status Date Activated 09/17/2018 8:02 PM Full Code 09/09/2018 10:09 PM This code status was determined by: Patient 09/09/2018 6:50 PM Full Code 07/19/2018 10:21 PM This code [...]
[2018-11-06 15:20] LABS: BASOPHILS % 0.2 % (0.0-1.0); EOSINOPHILS # (AUTO) 0.1 (0.0-0.4); EOSINOPHILS % 0.9 % (0.0-6.0); HEMATOCRIT 38.9 % (34.2-44.1); HEMOGLOBIN 11.6 g/dL (12.0-16.0); MEAN CORPUSCULAR HEMOGLOBIN 27.4 pg (28-32); MEAN CORPUSCULAR HGB CONC 29.8 g/dL (31-35); MONOCYTES # (AUTO) 0.5 (0.2-0.8); MONOCYTES % 8.2 % (4.4-11.3); NEUTROPHILS # (AUTO) 4.7 (2.1-6.9); NEUTROPHILS % 74.4 % (38.7-80.0); PLATELET COUNT 204 x10e3/uL (140-360); RED BLOOD COUNT 4.23 x10e6/uL (3.6-5.1); RED CELL DISTRIBUTION WIDTH 17.2 % (11.7-14.4)
[2018-11-06 15:26] LABS: INR 1.08; PARTIAL THROMBOPLASTIN TIME 38.8 seconds (23.8-35.5); PROTHROMBIN TIME 14.5 seconds (11.9-14.5)
[2018-11-06 15:39] LABS: ALBUMIN 3.1 g/dL (3.5-5.0); ALBUMIN/GLOBULIN RATIO 0.6 (0.8-2.0); ANION GAP 27.8 mmol/L (8-16); CREATININE, SERUM 16.65 mg/dL (0.57-1.11); MAGNESIUM 2.3 MG/DL (1.3-2.1)
[2018-11-06 15:48] LABS: CREATINE KINASE MB 4.8 ng/mL (0-5.0)
[2018-11-06 16:01] LABS: POTASSIUM 6.8 mmol/L (3.5-5.1)
[2018-11-06] MEDS ORDERED: SODIUM BICARBONATE 8.4% INJ 50 ML SYR IV STA (16:06)
[2018-11-06] MEDS ORDERED: DEXTROSE 50% SYRINGE 50 ML IV STA (16:06)
[2018-11-06] MEDS ORDERED: ALBUTEROL SULF 0.083% NEB SOLN 3 ML NEB NEB STA (16:06)
--- NOTE | 2018-11-06 16:07 | NUR ---
NOTIFIED RESP AND HOUSE SUP OF NEBS AND DIALYSIS
[2018-11-06] MEDS ORDERED: CALCIUM GLUCONATE 10% INJ 4.65 MEQ in SODIUM CHLORIDE 0.9% 50ML 50 ML IV ONE (16:15)
[2018-11-06] MEDS ORDERED: ALBUTEROL/IPRATROPIUM 3 ML NEB ONE (16:15)
[2018-11-06] MEDS ORDERED: INSULIN REGULAR, HUMAN 100 UNIT/1 ML 3ML VIAL IV ONE (16:15)
[2018-11-06] MEDS ORDERED: VANCOMYCIN 1GM/NS 250 ML 250 ML IV ONE (16:42)
--- NOTE | 2018-11-06 16:45 | NUR ---
DR. BERMAN AT BEDSIDE AT THIS TIME FOR PT EVAL.
[2018-11-06] MEDS ORDERED: LACTULOSE SYRUP 20 GM/30 ML UDC PO ONE (17:00)
[2018-11-06] MEDS ORDERED: SOD POLYSTYRENE SULFONATE SUSP 15 GM/60 ML BTL PO ONE (17:00)
--- NOTE | 2018-11-06 17:00 | Diagnostic Imaging Report ---
EXAMINATION: CHEST SINGLE (PORTABLE) INDICATION: ESRD, volume overload. COMPARISON: Chest radiograph 02/22/2018. FINDINGS: TUBES and LINES: None. LUNGS: Lungs are not well inflated. There are bilateral perihilar and interstitial opacities. There are patchy opacities in the bilateral mid and lower lung zones. PLEURA: Possible trace bilateral pleural effusions. No evidence of pneumothorax. HEART AND MEDIASTINUM: There is moderate cardiomegaly. BONES AND SOFT TISSUES: No acute osseous abnormality. UPPER ABDOMEN: No free air under the diaphragm. IMPRESSION: Cardiomegaly with moderate pulmonary interstitial edema. Patchy opacities in the bilateral mid and lower lung zones likely reflects alveolar edema in the setting of volume overload. Pneumonia may have a similar appearance in the appropriate clinical setting. Signed by: Dr. Karina Carlson MD on 11/06/2018 4:56 PM
--- NOTE | 2018-11-06 17:06 | Diagnostic Imaging Report ---
Exam: Left foot radiographs-3 views Clinical History: Left foot infection. Comparison: None. Findings: Exam is severely limited secondary to portable technique and lack of mobility. 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 No specific evidence of bony destructive change or periosteal reaction. There is soft tissue edema at the stump and at the ankle. No evidence of acute displaced fracture. Evaluation for malalignment including of the ankle mortise is limited. Indeterminate well-circumscribed bony fragment along the anterior medial soft tissues adjacent to the tibia may reflect sequela of prior trauma. There is a plantar calcaneal spur. There is Achilles enthesopathy. Impression: Severely limited examination demonstrating post amputation changes of the left foot without specific radiographic evidence of osteomyelitis. If there is clinical concern for osteomyelitis, suggest MRI for further evaluation. Soft tissue edema as above. Signed by: Dr. Karina Carlson MD on 11/06/2018 5:02 PM
[2018-11-06] MEDS: PIPERACILLIN/TAZO 2.25 GM 50 ML IV SCH (17:55)
[2018-11-06] MEDS ORDERED: ONDANSETRON HCL INJ 2MG/ML 2ML 2 MG/ML VIAL IV PRN (18:15)
[2018-11-06] MEDS ORDERED: DEXTROSE 50% SYRINGE 50 ML IV PRN (18:15)
[2018-11-06] MEDS ORDERED: MORPHINE SULFATE 2 MG/ML SYR 1ML IV PRN (18:15)
--- OUTSIDE RECORDS SUMMARY | 2018-11-06 18:34 | XMS REPORT | Clinical Summary ---
Author Author YADIEL [facility] Address Unknown Phone Unavailable Care Team Providers Care General Repairer Name Role Phone Tl Patel PCP Allergies [...] strength vitamin D (around 01/02/14), start taking niey-qlr-gjwu ter vitamin D3 2000 units daily.. Active [...] 0 capsule daily . 09/09/2018 Discontinued omega 6-xkj-lop-fish oil Take 6 0 (FISH OIL) 1,000 [...] EVERY DAY. 09/09/[address]-shark Place 0 bvg-toti-pax rectally as (HEMORRHOIDAL) Crea needed. 09/09/2018 Discontinued [...] 09/10/2018 Surgery Juan J Ocasio MD 09/09/2018 [facility] General Internal Medicine - Encounter 09/17/2018 09/09/2018 Travel Goyo Haji MD AMPUTATION,TOE 07/25/2018 Surgery Suresh Roberts MD 07/25/2018 Anesthesia Event Jonathan Wood MD PERIPHERAL ANGIOS / AORTOGRAM 07/23/2018 Surgery 07/20/2018 Travel Jr Lala MD [facility], Fely Acevedo MD 07/19/2018 [facility] Cardiology - Encounter 07/27/2018 Bakari Cuenca [...] Taken Vital Sign Reading 09/17/2018 3:17 PM CONCESSIONS MANAGER Blood Pressure 136/62 09/17/2018 3:17 PM CONCESSIONS MANAGER Pulse 76 09/17/2018 3:17 PM CONCESSIONS MANAGER Temperature 35.8 C (96.4 F) 09/17/2018 3:17 PM CONCESSIONS MANAGER Respiratory Rate 20 09/17/2018 3:17 PM CONCESSIONS MANAGER Oxygen Saturation 98% - Inhaled Oxygen - Concentration 09/17/2018 8:45 AM CONCESSIONS MANAGER Weight 104.7 kg (230 lb 13.2 oz) 09/09/2018 9:34 PM CONCESSIONS MANAGER Height 167.6 cm (5' 6") 09/17/2018 8:45 AM CONCESSIONS MANAGER Body Mass Index 37.26 Plan of Treatment Not on file Procedures Comments Procedure Name Priority Date/Time Associated Diagnosis RHYTHM STRIP - SCAN 09/20/2018 10:00 AM CONCESSIONS MANAGER POCT-GLUCOSE METER Routine 09/17/2018 2:43 PM CONCESSIONS MANAGER HEMODIALYSIS INPATIENT Routine 09/17/2018 1:30 PM CONCESSIONS MANAGER POCT-GLUCOSE METER Routine 09/17/2018 12:50 PM CONCESSIONS MANAGER POCT-GLUCOSE METER Routine 09/17/2018 8:19 AM CONCESSIONS MANAGER CBC W/PLT COUNT & AUTO Routine 09/17/2018 DIFFERENTIAL 5:09 AM CONCESSIONS MANAGER BASIC METABOLIC PANEL (7) Routine 09/17/2018 5:09 AM CONCESSIONS MANAGER CBC W/PLT COUNT & AUTO Routine 09/17/2018 DIFFERENTIAL 5:09 AM CONCESSIONS MANAGER POCT-GLUCOSE METER Routine 09/16/2018 9:36 PM CONCESSIONS MANAGER POCT-GLUCOSE METER Routine 09/16/2018 5:57 PM CONCESSIONS MANAGER POCT-GLUCOSE METER Routine 09/16/2018 12:15 PM CONCESSIONS MANAGER POCT-GLUCOSE METER Routine 09/16/2018 8:07 AM CONCESSIONS MANAGER POCT-GLUCOSE METER Routine 09/15/2018 9:27 PM CONCESSIONS MANAGER POCT-GLUCOSE METER Routine 09/15/2018 4:30 PM CONCESSIONS MANAGER POCT-GLUCOSE METER Routine 09/15/2018 11:42 AM CONCESSIONS MANAGER POCT-GLUCOSE METER Routine 09/15/2018 9:31 AM CONCESSIONS MANAGER POCT-GLUCOSE METER Routine 09/14/2018 9:22 PM CONCESSIONS MANAGER HEMODIALYSIS INPATIENT Routine 09/14/2018 6:47 PM CONCESSIONS MANAGER BASIC METABOLIC PANEL (7) Routine 09/14/2018 4:09 PM CONCESSIONS MANAGER POCT-GLUCOSE METER Routine 09/14/2018 12:50 PM CONCESSIONS MANAGER POCT-GLUCOSE METER Routine 09/14/2018 8:56 AM CONCESSIONS MANAGER BLOOD CULTURE STAT 09/14/2018 6:43 AM CONCESSIONS MANAGER CBC W/PLT COUNT & AUTO Routine 09/14/2018 DIFFERENTIAL 6:42 AM CONCESSIONS MANAGER CBC W/PLT COUNT & AUTO Routine 09/14/2018 DIFFERENTIAL 6:42 AM CONCESSIONS MANAGER POCT-GLUCOSE METER Routine 09/13/2018 8:57 PM CONCESSIONS MANAGER BLOOD CULTURE STAT 09/13/2018 8:40 PM CONCESSIONS MANAGER POCT-GLUCOSE METER Routine 09/13/2018 6:55 PM CONCESSIONS MANAGER POCT-GLUCOSE METER Routine 09/13/2018 12:54 PM CONCESSIONS MANAGER POCT-GLUCOSE METER Routine 09/13/2018 8:10 AM CONCESSIONS MANAGER CBC W/PLT COUNT & AUTO Routine 09/13/2018 DIFFERENTIAL 4:59 AM CONCESSIONS MANAGER CBC W/PLT COUNT & AUTO Routine 09/13/2018 DIFFERENTIAL 4:59 AM CONCESSIONS MANAGER POCT-GLUCOSE METER Routine 09/12/2018 9:36 PM CONCESSIONS MANAGER POCT-GLUCOSE METER Routine 09/12/2018 5:46 PM CONCESSIONS MANAGER POCT-GLUCOSE METER Routine 09/12/2018 4:07 PM CONCESSIONS MANAGER HEMODIALYSIS INPATIENT Routine 09/12/2018 1:00 PM CONCESSIONS MANAGER POCT-GLUCOSE METER Routine 09/12/2018 7:20 AM CONCESSIONS MANAGER CBC W/PLT COUNT & AUTO Routine 09/12/2018 DIFFERENTIAL 4:51 AM CONCESSIONS MANAGER BASIC METABOLIC PANEL (7) Routine 09/12/2018 4:51 AM CONCESSIONS MANAGER CBC W/PLT COUNT & AUTO Routine 09/12/2018 DIFFERENTIAL 4:51 AM CONCESSIONS MANAGER POCT-GLUCOSE METER Routine 09/11/2018 9:08 PM CONCESSIONS MANAGER POCT-GLUCOSE METER Routine 09/11/2018 6:18 PM CONCESSIONS MANAGER TRANSFUSION SERVICE 09/11/2018 REPORT - SCAN 6:01 PM CONCESSIONS MANAGER POCT-GLUCOSE METER Routine 09/11/2018 1:00 PM CONCESSIONS MANAGER POCT-GLUCOSE METER Routine 09/11/2018 9:13 AM CONCESSIONS MANAGER CBC W/PLT COUNT & AUTO Routine 09/11/2018 DIFFERENTIAL 4:56 AM CONCESSIONS MANAGER BASIC METABOLIC PANEL (7) Routine 09/11/2018 4:56 AM CONCESSIONS MANAGER CBC W/PLT COUNT & AUTO Routine 09/11/2018 DIFFERENTIAL 4:56 AM CONCESSIONS MANAGER PT/APTT Routine 09/11/2018 4:56 AM CONCESSIONS MANAGER POCT-GLUCOSE METER Routine 09/10/2018 9:57 PM CONCESSIONS MANAGER POCT-GLUCOSE METER Routine 09/10/2018 7:00 PM CONCESSIONS MANAGER POCT-GLUCOSE METER Routine 09/10/2018 5:10 PM CONCESSIONS MANAGER TISSUE EXAM AP Routine 09/10/2018 1:58 PM CONCESSIONS MANAGER POTASSIUM-STAT LAB STAT 09/10/2018 12:59 PM CONCESSIONS MANAGER AMPUTATION,FOOT 09/10/2018 Gangrene (HCC) 12:20 PM CONCESSIONS MANAGER Case Notes 2 HRS PER CRISTIAN ENCISO BY CINDY TO POST @ 1/09/09 @ 1:54 HEMODIALYSIS INPATIENT Routine 09/10/2018 12:17 PM CONCESSIONS MANAGER IRON, TIBC, % SAT. Routine 09/10/2018 (WITHOUT FERRITIN) 10:37 AM CONCESSIONS MANAGER PHOSPHORUS Routine 09/10/2018 10:37 AM CONCESSIONS MANAGER TYPE AND SCREEN, STAT 09/10/2018 AUTOMATED 2:46 AM CONCESSIONS MANAGER PT/APTT Routine 09/10/2018 2:46 AM CONCESSIONS MANAGER CBC W/PLT COUNT & AUTO STAT 09/09/2018 DIFFERENTIAL 11:57 PM CONCESSIONS MANAGER HEPATITIS B SURFACE Routine 09/09/2018 ANTIGEN 11:57 PM CONCESSIONS MANAGER CBC W/PLT COUNT & AUTO STAT 09/09/2018 DIFFERENTIAL 11:57 PM CONCESSIONS MANAGER MAGNESIUM STAT 09/09/2018 11:57 PM CONCESSIONS MANAGER HEPATIC FUNCTION PANEL STAT 09/09/2018 11:57 PM CONCESSIONS MANAGER BASIC METABOLIC PANEL (7) STAT 09/09/2018 11:57 PM CONCESSIONS MANAGER POCT-GLUCOSE METER Routine 09/09/2018 11:12 PM CONCESSIONS MANAGER VASCULAR DIAGRAM -SCAN 09/05/2018 4:40 PM CONCESSIONS MANAGER VASCULAR DIAGRAM -SCAN 08/19/2018 9:10 AM CONCESSIONS MANAGER RHYTHM STRIP - SCAN 08/19/2018 9:10 AM CONCESSIONS MANAGER CARDIAC CATH REPORT - 08/19/2018 SCAN 9:10 AM CONCESSIONS MANAGER POCT-GLUCOSE METER Routine 07/27/2018 12:42 PM CONCESSIONS MANAGER POCT-GLUCOSE METER Routine 07/27/2018 9:08 AM CONCESSIONS MANAGER POCT-GLUCOSE METER Routine 07/26/2018 9:29 PM CONCESSIONS MANAGER POCT-GLUCOSE METER Routine 07/26/2018 5:55 PM CONCESSIONS MANAGER POCT-GLUCOSE METER Routine 07/26/2018 12:10 PM CONCESSIONS MANAGER HEMODIALYSIS INPATIENT Routine 07/26/2018 11:52 AM CONCESSIONS MANAGER BASIC METABOLIC PANEL (7) Routine 07/26/2018 8:19 AM CONCESSIONS MANAGER POCT-GLUCOSE METER Routine 07/25/2018 9:49 PM CONCESSIONS MANAGER POCT-GLUCOSE METER Routine 07/25/2018 6:02 PM CONCESSIONS MANAGER POCT-GLUCOSE METER Routine 07/25/2018 1:37 PM CONCESSIONS MANAGER TISSUE EXAM AP Routine 07/25/2018 1:05 PM CONCESSIONS MANAGER AMPUTATION,TOE 07/25/2018 Gangrene of toe (HCC) 1:01 PM CONCESSIONS MANAGER POCT-GLUCOSE METER Routine 07/25/2018 8:06 AM CONCESSIONS MANAGER POCT-GLUCOSE METER Routine 07/24/2018 11:08 PM CONCESSIONS MANAGER HEMODIALYSIS INPATIENT Routine 07/24/2018 7:50 PM CONCESSIONS MANAGER PHOSPHORUS Routine 07/24/2018 4:17 PM CONCESSIONS MANAGER POCT-GLUCOSE METER Routine 07/24/2018 12:33 PM CONCESSIONS MANAGER POCT-GLUCOSE METER Routine 07/24/2018 7:31 AM CONCESSIONS MANAGER CBC W/PLT COUNT & AUTO Routine 07/24/2018 DIFFERENTIAL 3:24 AM CONCESSIONS MANAGER CBC W/PLT COUNT & AUTO Routine 07/24/2018 DIFFERENTIAL 3:24 AM CONCESSIONS MANAGER BASIC METABOLIC PANEL (7) Routine 07/24/2018 3:24 AM CONCESSIONS MANAGER PLATELET AGGREGATION: AP Routine 07/24/2018 FUNCTION SCREEN 3:24 AM CONCESSIONS MANAGER POCT-GLUCOSE METER Routine 07/23/2018 9:20 PM CONCESSIONS MANAGER POCT-ACT Routine 07/23/2018 7:09 PM CONCESSIONS MANAGER POCT-GLUCOSE METER Routine 07/23/2018 6:32 PM CONCESSIONS MANAGER POCT-ACT Routine 07/23/2018 5:47 PM CONCESSIONS MANAGER POCT-ACT Routine 07/23/2018 4:42 PM CONCESSIONS MANAGER POCT-ACT Routine 07/23/2018 2:38 PM CONCESSIONS MANAGER POCT-GLUCOSE METER Routine 07/23/2018 1:25 PM CONCESSIONS MANAGER POCT-ACT Routine 07/23/2018 10:13 AM CONCESSIONS MANAGER PERIPHERAL ANGIOS / 07/23/2018 Peripheral arterial AORTOGRAM 9:15 AM CONCESSIONS MANAGER disease (HCC) Case Notes (2) CASE 1830 POCT-GLUCOSE METER Routine 07/23/2018 6:42 AM CONCESSIONS MANAGER POCT-GLUCOSE METER Routine 07/22/2018 9:21 PM CONCESSIONS MANAGER HEMODIALYSIS INPATIENT Routine 07/22/2018 8:37 PM CONCESSIONS MANAGER CBC W/PLT COUNT & AUTO Routine 07/22/2018 DIFFERENTIAL 4:08 PM CONCESSIONS MANAGER PHOSPHORUS Routine 07/22/2018 4:08 PM CONCESSIONS MANAGER BASIC METABOLIC PANEL (7) Routine 07/22/2018 4:08 PM CONCESSIONS MANAGER CBC W/PLT COUNT & AUTO Routine 07/22/2018 DIFFERENTIAL 4:08 PM CONCESSIONS MANAGER POCT-GLUCOSE METER Routine 07/22/2018 11:33 AM CONCESSIONS MANAGER POCT-GLUCOSE METER Routine 07/21/2018 9:06 PM CONCESSIONS MANAGER POCT-GLUCOSE METER Routine 07/21/2018 4:10 PM CONCESSIONS MANAGER C. DIFFICILE GDH TOXIN Routine 07/21/2018 2:11 PM CONCESSIONS MANAGER POCT-GLUCOSE METER Routine 07/21/2018 11:28 AM CONCESSIONS MANAGER POCT-GLUCOSE METER Routine 07/21/2018 7:46 AM CONCESSIONS MANAGER POCT-GLUCOSE METER Routine 07/20/2018 9:21 PM CONCESSIONS MANAGER HEMODIALYSIS INPATIENT Routine 07/20/2018 7:18 PM CONCESSIONS MANAGER POCT-GLUCOSE METER Routine 07/20/2018 4:42 PM CONCESSIONS MANAGER HEPATITIS B SURFACE Routine 07/20/2018 ANTIGEN 2:58 PM CONCESSIONS MANAGER PHOSPHORUS Routine 07/20/2018 2:58 PM CONCESSIONS MANAGER POCT-GLUCOSE METER Routine 07/20/2018 11:33 AM CONCESSIONS MANAGER POCT-GLUCOSE METER Routine 07/20/2018 7:53 AM CONCESSIONS MANAGER CBC W/PLT COUNT & AUTO Routine 07/20/2018 DIFFERENTIAL 6:02 AM CONCESSIONS MANAGER BASIC METABOLIC PANEL (7) Routine 07/20/2018 6:02 AM CONCESSIONS MANAGER CBC W/PLT COUNT & AUTO Routine 07/20/2018 DIFFERENTIAL 6:02 AM CONCESSIONS MANAGER POCT-GLUCOSE METER Routine 07/19/2018 8:27 PM CONCESSIONS MANAGER CBC W/PLT COUNT & AUTO STAT 05/18/2018 DIFFERENTIAL 11:32 AM CDT BASIC METABOLIC PANEL (7) STAT 05/18/2018 11:32 AM CDT CBC W/PLT COUNT & AUTO STAT 05/18/2018 DIFFERENTIAL 11:32 AM CDT PT/APTT STAT 05/18/2018 11:32 AM CDT after 11/05/2017 Results * RHYTHM STRIP - SCAN (09/20/2018 10:00 AM CONCESSIONS MANAGER) Only the most recent of 2 results within the time period is included. Narrative Performed At * POC-Glucose meter (09/17/2018 2:43 PM CONCESSIONS MANAGER) Only the most recent of 57 results within the time period is included. POC-Glucose Meter 192 (H)Comment: TESTED AT 70 - 110 mg/dL [facility] [address] [place] [id number] Specimen Blood Performing Organization Address City/State/Zipcode Phone Number [address] [phone] [facility] * HEMODIALYSIS INPATIENT (09/17/2018 1:30 PM CONCESSIONS MANAGER) Narrative Performed At Alyson Stoddard RN 09/17/20181:54 [...] count + automated diff (09/17/2018 5:09 AM CONCESSIONS MANAGER) Only the most recent of 10 results within the time period is included. WBC 5.9 3.5 - 10.5 K/L [facility] RBC 3.20 (L) 3.93 - 5.22 M/L [facility] Hemoglobin 8.3 (L) 11.2 - 15.7 GM/DL [facility] Hematocrit 29.5 (L) 34.1 - 44.9 % [facility] MCV 92.2 79.4 - 94.8 fL [facility] MCH 25.9 25.6 - 32.2 pg [facility] MCHC 28.1 (L) 32.2 - 35.5 GM/DL [facility] RDW 15.4 (H) 11.7 - 14.4 % [facility] Platelets 247 150 - 450 K/CU MM [facility] MPV 10.7 9.4 - 12.3 fL [facility] nRBC 0 0 - 0 /100 WBC [facility] % Neutros 68 % [facility] % Lymphs 19 % [facility] % Monos 10 % [facility] % Eos 2 % [facility] % Baso 0 % [facility] # Neutros 4.01 1.56 - 6.13 K/L [facility] # Lymphs 1.10 (L) 1.18 - 3.74 K/L [facility] # Monos 0.61 (H) 0.24 - 0.36 K/L [facility] # Eos 0.13 0.04 - 0.36 K/L [facility] # Baso 0.01 0.01 - 0.08 K/L [facility] Immature 0 0 - 1 % [facility] Granulocytes-Relative [facility] Specimen Blood Performing Organization Address City/State/Zipcode Phone Number [facility] [address] [place], [place] [id number] [facility] * Basic Metabolic Panel (09/17/2018 5:09 AM CONCESSIONS MANAGER) Only the most recent of 10 results within the time period is included. Sodium 136 136 - 145 meq/L [facility] Potassium 4.3 3.5 - 5.1 meq/L [facility] Chloride 99 98 - 107 meq/L [facility] CO2 29 22 - 29 meq/L [facility] BUN 38 (H) 7 - 21 mg/dL [facility] Creatinine 7.60 (H) 0.57 - 1.25 mg/dL [facility] Glucose 124 (H) 70 - 105 mg/dL [facility] Calcium 10.2 8.4 - 10.2 mg/dL [facility] EGFR 6Comment: ESTIMATED GFR IS NOT mL/min/1.73 sq m [facility] ACCURATE CREATININE [facility] CLEARANCE IN PREDICTING GLOMERULAR FILTRATION RATE. ESTIMATED GFR IS NOT APPLICABLE FOR DIALYSIS PATIENTS. Specimen Blood Performing Organization Address City/[facility]/Zipcode Phone Number [facility] [address] [place] [address] [facility] * Blood Culture - Routine (Left Venipuncture) (09/14/2018 6:43 AM CONCESSIONS MANAGER) Only the most recent of 2 results within the time period is included. Result No growth in 5 days [facility] Specimen Blood Performing Organization Address City/State/Zipcode Phone Number [facility] [address] [place] [address] [facility] * HEMODIALYSIS INPATIENT (09/12/2018 1:00 PM CONCESSIONS MANAGER) Narrative Performed At Alyson Stoddard RN 09/12/20181:55 [...] SERVICE REPORT - SCAN (09/11/2018 6:01 PM CONCESSIONS MANAGER) Narrative Performed At * PT/aPTT (09/11/2018 4:56 AM CONCESSIONS MANAGER) Only the most recent of 3 results within the time period is included. Protime 14.3 11.7 - 14.7 seconds [facility] INR 1.1 <=5.9 [facility] PTT 39.3 (H) 22.5 - 36.0 seconds [facility] Specimen Blood Narrative Performed At RECOMMENDED COUMADIN/WARFARIN INR THERAPY RANGES [facility] STANDARD DOSE: 2.0 - 3.0 Includes: PROPHYLAXIS for venous thrombosis, [facility] systemic embolization; TREATMENT for venous thrombosis and/or pulmonary embolus. HIGH RISK: Target INR is 2.5-3.5 for patients with mechanical heart valves. Performing Organization Address City/State/Zipcode Phone Number [facility] [address] [place] [address] [facility] * Tissue Exam (09/10/2018 1:58 PM CONCESSIONS MANAGER) Only the most recent of 2 results within the time period is included. Case Report Surgical Pathology [facility] Report [facility] Case: [id number] Authorizing Provider:Goyo Haji, Collected: 09/10/2018 1358 Ordering Location: [facility] PERIOPERATIVE Received: 09/10/2018 1506 SERVICES Pathologist: Rajesh Lund MD Specimen:Foot, Left, LEFT FOREFOOT DIAGNOSIS FOOT, LEFT FOREFOOT, [facility] AMPUTATION [facility] - GANGRENOUS NECROSIS - DEFINITIVE ACUTE OSTEOMYELITIS NOT IDENTIFIED - FAT NECROSIS IN BONE MARROW UNDERLYING ULCER - SKIN, SOFT TISSUE AND BONE MARGINS VIABLE Signing Pathologist Direct Phone Line: [phone] CPT Code(s) 25136, [address] [facility] CLINICAL HISTORY Gangrene [facility] SPECIMEN SOURCE Left forefoot [facility] GROSS DESCRIPTION The specimen is received in a [facility] formalin-filled container and [facility] labeled with the patient's information [...] 5th digit respectively. CG/pl MICROSCOPIC DESCRIPTION Performed. [facility] Specimen Tissue Performing Organization Address City/[facility] Phone Number [facility] [address] [place] [address] [facility] * Potassium-Stat Lab (09/10/2018 12:59 PM CONCESSIONS MANAGER) Potassium 3.7 3.6 - 5.5 meq/L [facility] Specimen Blood, Arterial Performing Organization Address City/[facility] Phone Number [facility] [address] [place] [address] [facility] * HEMODIALYSIS INPATIENT (09/10/2018 12:17 PM CONCESSIONS MANAGER) Narrative Performed At Jimbo Pardo RN 09/10/2018 [...] % sat. (without ferritin) (09/10/2018 10:37 AM CONCESSIONS MANAGER) Iron 20.0 (L) 40.0 - 160.0 ug/dL [facility] TIBC 150 (L) 250 - 450 ug/dL [facility] Iron % Saturation 13 (L) 20 - 55 % [facility] Specimen Blood Performing Organization Address City/State/Zipcode Phone Number [facility] [address] [place] [address] [facility] * Phosphorus (09/10/2018 10:37 AM CONCESSIONS MANAGER) Only the most recent of 4 results within the time period is included. Phosphorus 2.0 (L) 2.3 - 4.7 mg/dL [facility] Specimen Blood Performing Organization Address City/[facility]/Zipcode Phone Number [address] * Type and screen, automated (09/10/2018 2:46 AM CONCESSIONS MANAGER) ABO/RH AUTOMATED (BEAKER) B POSITIVE [facility] Ab Scrn NEGATIVE [facility] Specimen Blood Performing Organization Address City/[facility]ode Phone Number [address] * Hepatitis B surface antigen (09/09/2018 11:57 PM CONCESSIONS MANAGER) Only the most recent of 2 results within the time period is included. hepatitis B Surface Ag NON-REACTIVE Nonreactive [facility] Specimen Blood Performing Organization Address City/[facility] Phone Number [address] * Magnesium (09/09/2018 11:57 PM CONCESSIONS MANAGER) Magnesium 1.6 1.6 - 2.6 mg/dL [facility] Specimen Blood Performing Organization Address [facility] Phone Number [address] * Hepatic function panel (09/09/2018 11:57 PM CONCESSIONS MANAGER) Protein, Total 7.0 6.0 - 8.3 gm/dL [facility] Albumin 3.1 (L) 3.5 - 5.0 g/dL [facility] Total Bilirubin 0.3 0.2 - 1.2 mg/dL [facility] Bilirubin, Direct 0.1 0.1 - 0.5 mg/dL [facility] Alkaline Phosphatase 64 40 - 150 U/L [facility] AST 7 5 - 34 U/L [facility] ALT <6 (L) 6 - 55 U/L [facility] Specimen Blood Performing Organization Address City/State/Zipcode Phone Number [facility] [address] [place] [address] [facility] * VASCULAR DIAGRAM -SCAN (09/05/2018 4:40 PM CONCESSIONS MANAGER) Only the most recent of 2 results within the time period is included. Narrative Performed At * CARDIAC CATH REPORT - SCAN (08/19/2018 9:10 AM CONCESSIONS MANAGER) Narrative Performed At * HEMODIALYSIS INPATIENT (07/26/2018 11:52 AM CONCESSIONS MANAGER) Narrative Performed At Harjinder Dan RN 07/26/2018 [...] distress. * HEMODIALYSIS INPATIENT (07/24/2018 7:50 PM CONCESSIONS MANAGER) Narrative Performed At Alyson Stoddard RN 07/24/20188:39 [...] Platelet Aggregation: Function Screen (07/24/2018 3:24 AM CONCESSIONS MANAGER) Weak ADP 37 (L) 60 - 91 % [facility] Plt. Function Screen 0-39% indicates marked [facility] Interpretation platelet dysfunction [facility] Pathologist: Soledad Vilchis MD (electronic [facility] signature) [facility] Platelets 235 150 - 430 K/CU MM [facility] Specimen Blood Narrative Performed At Platelet Function Screen results may be falsely low with platelet counts [facility] <100,000/cu mm. [facility] Performing Organization Address City/[facility]/[place] [address] [facility] * POC ACTIVATED CLOTTING TIME (07/23/2018 7:09 PM CONCESSIONS MANAGER) Only the most recent of 5 results within the time period is included. Activated Clotting Time 136Comment: TESTED AT [facility] sec [address] Specimen Blood Performing Organization Address City/[facility]/[place] [address] [facility] * HEMODIALYSIS INPATIENT (07/22/2018 8:37 PM CONCESSIONS MANAGER) Narrative Performed At Romario Wolff RN 07/22/20188:40 [...] Clostridium difficile [facility] Toxin (07/21/2018 2:11 PM CONCESSIONS MANAGER) C. Difficle Toxin Negative Negative [facility] C. Difficile [facility] Antigen NegativeComment: No indication Negative [facility] of Clostridium difficile [facility] infection and no colonization. Discontinue enteric isolation and therapy. Specimen Stool Narrative Performed At Testing performed by [employer] Green Rapid Cassette Assay.For [facility], published [facility] sensitivity of the assay is 98.7% compared to cytotoxicity testing.For Toxin [facility], published sensitivity is 87.8% and specificity 99.4% compared to cytotoxicity testing. Verification of kit performance was done by the [facility] Microbiology Lab prior to clinical use. Performing Organization Address City/State/Zipcode Phone Number [facility] [address] [place] [address] [facility] * HEMODIALYSIS INPATIENT (07/20/2018 7:18 PM CONCESSIONS MANAGER) Narrative Performed At Harjinder Dan RN 07/20/20187:20 [...] ID Type Phone Address Plan / Group [facility] x[facility]xx MEDICARE ADV Advance Directives For more information, please contact: [address] [address] Date Inactivated Comments Code Status [...]
[2018-11-06] MEDS: FAMOTIDINE 20 MG/2 ML VIAL IV SCH (18:42)
[2018-11-06] MEDS ORDERED: MORPHINE SULFATE INJ 4 MG/ML INJ 1ML IV PRN (18:45)
--- NOTE | 2018-11-06 18:45 | NUR ---
[facility] DIALYSIS NURSE AT BEDSIDE AT THIS TIME.
[2018-11-06] MEDS ORDERED: SODIUM CHLORIDE 0.9% 1000ML 2,000 ML ONE (19:07)
--- NOTE | 2018-11-06 19:20 | NUR ---
REPORT GIVEN TO DENISE BARTH RADIOLOGY RECEPTIONIST NURSE.
[2018-11-06] MEDS ORDERED: SODIUM CHLORIDE 0.9% 250ML 500 ML IV PRN (19:45)
[2018-11-06] MEDS ORDERED: SODIUM CHLORIDE 0.9% 1000ML 2,000 ML IV PRN (19:45)
[2018-11-06] MEDS ORDERED: LIDOCAINE HCL 2% 2 ML AMP INJ PRN (19:45)
[2018-11-07] VITALS (9 sets, daily range): BP systolic 170–217; BP diastolic 77–103
--- NOTE | 2018-11-07 00:13 | Consultation ---
DATE OF CONSULTATION: 11/06/2018 The patient is seen in the emergency room. REASON FOR ADMISSION: Shortness of breath. HISTORY OF PRESENT ILLNESS: This is a 73-year-old female, who has underlying history of end-stage renal disease, hypertension, congestive heart failure, who missed according to her to do sessions of dialysis. She dialyzes [facility] and presented with shortness of breath. She appears to be in mild respiratory distress. Denies any fever and chills. Currently on oxygen, found to have significant hyperkalemia, emergent treatment has been started including calcium, dextrose, insulin, bicarb, albuterol inhalation by the ER physician. Nursing supervisor parachute manufacturing has already paged the dialysis nurse stat. We are awaiting nurses arrival. The patient denies any diarrhea or nausea. ALLERGIES: SHE IS ALLERGIC TO ATORVASTATIN, PNEUMOCOCCAL VACCINE. SHE HAS BEEN ON LEVOTHYROXINE, LISINOPRIL, NIFEDIPINE AND LASIX AT HOME. THE EXACT COMPLIANCE TO THIS MEDICATION IS UNCLEAR. HOME MEDICATIONS: Have not been reconciled yet. She has been given a dose of piperacillin and tazobactam as well as vancomycin. SOCIAL HISTORY: The patient does not smoke or drink. PAST HISTORY: Significant for diabetes. She has had transmetatarsal amputation of the left foot. PHYSICAL EXAMINATION: GENERAL: The patient is awake, alert, appears to be in [id number] respiratory distress. VITAL SIGNS: With a blood pressure of 189/92, pulse rate 65, afebrile, oxygen saturation 100% on oxygen via nasal cannula. HEAD AND NECK EXAM: Cornea clear. Mucosa moist. LUNGS: Bibasilar rales. HEART: S1 and S2 audible, 2 to 3/6 ejection systolic murmur noted in left sternal border. ABDOMEN: Otherwise obese, soft, nontender. LOWER EXTREMITY EXAMINATION: Chronic skin changes, left-sided TMA with slight open ulceration, which does not appear infected. Right lower extremity no edema. IMPRESSION: 1. Hyperkalemia. 2. Fluid overload. 3. Congestive heart failure. 4. Hypertension. 5. Underlying multiple comorbidities. 6. Noncompliant. 7. High-risk patient. Dialysis nurse has been paged. She needs urgent hemodialysis and should be admitted to the ICU. We will place on a renal diet, p.o. fluid restriction, and salt restriction. We will dose with Kayexalate and lactulose discussed with bedside RN, O2 protocol. Consider primary cardiology, infectious disease consultation. MD ENID Mckoy/OJNATHAN /[id number]
[2018-11-07] MEDS: INSULIN LISPRO 100 UNIT/1 ML 3ML VIAL SQ SCH ×5 (00:42→20:31)
[2018-11-07] MEDS ORDERED: CALCIUM ACETAT667 M1 (02:09)
[2018-11-07] MEDS ORDERED: LEVOTHYROXINE75 MCG PO (02:09)
[2018-11-07] MEDS ORDERED: MELATONIN3 MG PO (02:09)
[2018-11-07] MEDS ORDERED: CARVEDILOL3.125 MG PO (02:09)
[2018-11-07] MEDS ORDERED: CALCIUM ACETAT667 MG PO (02:09)
[2018-11-07] MEDS ORDERED: DOCUSATE SODIU100 MG PO (02:09)
[2018-11-07] MEDS ORDERED: CILOSTAZOL100 MG PO (02:09)
[2018-11-07] MEDS ORDERED: OXYCODONE-ACET1 EAC1 PO (02:09)
[2018-11-07] MEDS ORDERED: CLOPIDOGREL75 MG PO (02:09)
[2018-11-07] MEDS ORDERED: SODIUM CHLORIDE 0.9% 250ML 250 ML ONE (04:33)
[2018-11-07] MEDS: PIPERACILLIN/TAZO 2.25 GM 50 ML IV SCH (04:49)
[2018-11-07] MEDS: FAMOTIDINE 20 MG/2 ML VIAL IV SCH (05:45)
[2018-11-07] MEDS: CLONIDINE HCL 0.1 MG TAB PO PRN ×2 (05:53→17:27)
[2018-11-07 07:39] LABS: BASOPHILS % 0.2 % (0.0-1.0); EOSINOPHILS # (AUTO) 0.1 (0.0-0.4); EOSINOPHILS % 1.1 % (0.0-6.0); HEMATOCRIT 38.4 % (34.2-44.1); HEMOGLOBIN 11.6 g/dL (12.0-16.0); LYMPHOCYTES # (AUTO) 0.7 (1.0-3.2); LYMPHOCYTES % 10.6 % (18.0-39.1); MEAN CORPUSCULAR HEMOGLOBIN 27.3 pg (28-32); MEAN CORPUSCULAR HGB CONC 30.2 g/dL (31-35); MEAN CORPUSCULAR VOLUME 90.4 fL (81-99); MONOCYTES # (AUTO) 0.5 (0.2-0.8); MONOCYTES % 8.4 % (4.4-11.3); NEUTROPHILS # (AUTO) 4.9 (2.1-6.9); NEUTROPHILS % 79.4 % (38.7-80.0); PLATELET COUNT 182 x10e3/uL (140-360); RED BLOOD COUNT 4.25 x10e6/uL (3.6-5.1); RED CELL DISTRIBUTION WIDTH 16.8 % (11.7-14.4)
[2018-11-07 07:54] LABS: ALBUMIN 2.5 g/dL (3.5-5.0); ALBUMIN/GLOBULIN RATIO 0.6 (0.8-2.0); ANION GAP 21.1 mmol/L (8-16); CREATININE, SERUM 10.23 mg/dL (0.57-1.11); POTASSIUM 4.1 mmol/L (3.5-5.1)
[2018-11-07 07:55] LABS: CHOL/HDL RATIO 5.5 (3.0-3.6)
[2018-11-07 08:02] LABS: CREATINE KINASE MB 3.6 ng/mL (0-5.0)
[2018-11-07 08:06] LABS: CALCIUM 5.9 mg/dL (8.4-10.2)
[2018-11-07] MEDS ORDERED: ALPRAZOLAM 0.25 MG TAB PO NR (10:00)
[2018-11-07] MEDS ORDERED: NIFEDIPINE CR 30 MG TAB PO SCH (12:00)
--- NOTE | 2018-11-07 14:18 | NUR ---
CASE MANAGEMENT ASSESSMENT Musical Performer to bedside to discuss plan of care with patient/family. CM/SW role and care transitions discussed. Anticipated discharge plan discussed along with duration of care. CM/SW discussed patients right to make decisions in care. CM/SW work hours given. Patient lives: with Óscar Admit/Transfer: thru ED Hospital/ER visits since last admit: 2 POA/Emergency contact: Óscar Horn [phone] Current/Previous Home Health: previously with [facility]; none currently PCP/Follow-up Care: Dr. Patel - PCP; advised pt to follow up with her MD within 7 days of discharge Current/Previous DME: walker, wheelchair Medications (referring to index hospitalization or the first time you were in the hospital) a. Were changes made in your medications when you were in the hospital on [date of index hospitalization]? n/a b. Did you understand the changes? n/a c. Were you able to obtain your new medications right away? n/a d. Were you able to take your medications like the doctor wanted you to? n/a e. Did the hospital give you an accurate, easy to understand list of medications when you left? n/a Scale of 1-10 how comfortable does patient feel with disease management in outpatient settin Other Services: HD at [facility] Employment Status: unemployed Areas of Concerns: ESRD, volume overload Referral Needs: none Education Needs: medical management IMM/MCCALL given and signed (if applicable): IMM given on admission Goal for discharge: home CM/SW left business card at the bedside with contact information. Name and number was also written on the patients whiteboard. Patient verbalized understanding of discussion. CM will follow-up with ongoing discharge and transition of care needs.
[2018-11-07] MEDS: CALCIUM ACETATE 667 MG GELCAP PO SCH ×2 (14:32→17:00)
--- NOTE | 2018-11-07 15:14 | Diagnostic Imaging Report ---
EXAM: CHEST SINGLE (PORTABLE) DATE: 11/07/2018 11:08 AM INDICATION:Renal disease, volume overload COMPARISON: Chest x-ray 11/06/2018 FINDINGS: Lines and tubes: None Marked enlargement of the cardiac silhouette again noted. There is central pulmonary vascular congestion, increased from previous exam. Opacity at the left lung base may represent edema and small pleural effusion. Surgical clips are again seen at the left lung base. No pneumothorax. Upper abdomen unremarkable. No acute bony abnormality. IMPRESSION: Marked cardiomegaly with increased pulmonary vascular congestion. Likely edema and small pleural effusion opacifying the left lung base. Signed by: Dr. Jaspreet Cook M.D. on 11/07/2018 3:11 PM
--- NOTE | 2018-11-07 15:46 | NUR ---
WOUND CARE CONSULTATION - INITIAL EVALUATION Patient admitted from home to ER for Dyspnea, No HD in last 2 wks. DX: ESRD, Fluid Volume Overload, Hyperkalemia. LABS: WBC6.21 HGB11.6 HCT38.4 NEUT%79.4 ALB2.5 Wound Care Consulted for Right Foot Wound Dehiscence Evaluation and Recommendation. PATIENT VISIT: - Torsten Score 13 - Moderate PUP Active - Alternating Pressure Air Mattress in place and set to patient current weight. - Patient in good spirits. AAOX4. - Note Patient seen after 4th visit attempt. - Presents with RLE TMA Surgical Dehiscence - area dry, no drainage noted. No Redness or swelling noted to foot. Area appears stable with dry fatty tissue/ fibrotic tissue to wound bed. No Sutures present and open to air at time of visit. Drainage noted to bed sheets. presents with heel ulcer. Open bullae. Likely due to mixture of shear friction and pressure. Patient states she uses heels to scoot up in bed. Left Heel intact. - Mid Abdominal folds, Groin areas and Perirectal areas- mild odor present, areas overly moist, reddened. Complains of burning to areas and areas stay constantly moist. - Mid Gluteal Fold - Open ulceration consistent with shear friction and pressure. Linear Ulceration, partial thickness draining serous fluid- light. - Treatment plan reviewed with patient and agreeable. - Unable to Culture TMA Site - Not draining. Area appears stable, if still suspecting infection to TMA site, recommend tissue biopsy for increased accuracy instead of surface swabbing. IMPRESSION: 1. Mid Gluteal Fold -Stage II- PU - POA 2. Abdominal Folds & Perineal Areas-Dermatologic Rash- Yeast 3. Right HEEL-Stage II- PU - POA 4. Right TMA -Surgical Dehiscence RECOMMENDATION: 1. Mid Gluteal Fold -Stage II- PU - POA - Wash area with Mild Soap and Water then Pat Dry Thoroughly. - Apply Buffalo Cream mixed with Nystatin Cream (1:1 ratio) and Cover with Allevyn Foam Sacrum dressing Daily. 2. Abdominal Folds & Perineal Areas-Dermatologic Rash- Yeast - Wash area with Mild Soap and Water then Pat Dry Thoroughly. - Apply Buffalo Cream mixed with Nystatin Cream (1:1 ratio) and Cover with Allevyn Foam Sacrum dressing Daily. 3. Right HEEL-Stage II- PU - POA - Cleanse with NS and 4x4 Gauze. - Apply Venelex and Cover with staggered 4x4 gauze and Wrap with Kerlix Daily. 4. Right TMA -Surgical Dehiscence - POA - Cleanse with NS and 4x4 Gauze. - Apply Silvasorb Gel and Cover with Adaptic then staggered 4x4 gauze and Wrap with Kerlix Daily. 6. Turn and Reposition every 2 hours using turning clock schedule 7. HOB elevated to < or = to 30 Degrees as tolerated 8. Continue Alternating Pressure Air Mattress and adjust mattress to patient current weight. 9. Bilateral Heel Protectors Thank you for consulting with Wound Care. Addendum: 11/07/18 at 1605 by Sarath Carrion RN Amended: Links added. Addendum: 11/11/18 at 1148 by Sarath Carrion RN LEFT FOOT - NOT RIGHT. 3. LEFT HEEL-Stage II- PU - POA 4. LEFT TMA -Surgical Dehiscence
[2018-11-07] MEDS ORDERED: CARVEDILOL 3.125 MG TAB PO SCH (17:00)
[2018-11-07] MEDS: NIFEDIPINE CR 30 MG TAB PO SCH (17:26)
[2018-11-07] MEDS ORDERED: HYDRALAZINE HCL 20 MG/ML VIAL IV PRN (18:00)
--- NOTE | 2018-11-07 21:44 | Consultation ---
DATE OF CONSULTATION: 11/07/2018 Cardiology consultation CHIEF COMPLAINT: Shortness of breath. HISTORY OF PRESENT ILLNESS: Ms. Horn is a 73-year-old woman with diabetes mellitus type 2, hypertension, dyslipidemia, peripheral vascular disease, status post prior revascularization to left lower extremity and status post recent left TMA approximately 3 months ago, who presents to [facility] after missing her dialysis for a scheduled ESRD management. Per the patient, three separate sessions were missed, as she reported not feeling well. She came in with a potassium over 6 and EKG changes required acute emergent treatment followed by an emergent dialysis. She has now received a second additional session of dialysis. Her blood pressure has remained uncontrolled and elevated. Her shortness of breath, which was her initial presenting complaint has improved. She denies any chest pain, lightheadedness, or fainting spells. She has no other complaints at this point in time. REVIEW OF SYSTEMS: 12-system review was negative except for as noted above. PAST MEDICAL HISTORY: ESRD, diabetes mellitus type 2, hypertension, dyslipidemia, PAD. ALLERGIES: TO PNEUMOCOCCAL VACCINE AND ATORVASTATIN. SOCIAL HISTORY: Denies smoking, alcohol, or drugs. FAMILY HISTORY: Noncontributory. PHYSICAL EXAMINATION: VITAL SIGNS: Temperature 98.6, heart rate 87, blood pressure 202/82, respiratory rate 20, and O2 saturation 97% on nasal cannula. BMI 41.7. GENERAL: In no acute distress, alert. NECK: JVD to lower third of neck. CHEST: Clear to auscultation. CARDIOVASCULAR: Regular rate and rhythm. Normal S1 and S2. No S3 or S4. Systolic ejection murmur 1/6. ABDOMEN: Soft and nontender. EXTREMITIES: Trace edema. Left TMA. Abnormal pedal pulses bilaterally. CARDIOVASCULAR MEDICATIONS: Reviewed. Carvedilol 3.125 mg every 12 hours, nifedipine 30 mg b.i.d., and clonidine 0.1 mg every 4 hours p.r.n. LABORATORY DATA: EKG, normal sinus rhythm with poor R-wave progression in anterior leads and nonspecific repolarization abnormality. Studies reviewed; sodium 142, potassium 4.1, chloride 102, bicarbonate 23, BUN 57, creatinine 10.2, and glucose 119. White blood cells 6.2, hemoglobin 11.6, and platelets 182. INR 1.08. AST 11, ALT 16, alkaline phosphatase 93, and total bilirubin 0.6. ASSESSMENT: 1. 73-year-old woman presented with acute shortness of breath in the setting of missed dialysis. 2. Hyperkalemia. 3. Metabolic acidosis, improving. 4. Volume overload, improving. 5. Hypertensive urgency. 6. Noncompliance with dialysis. 7. Diabetes mellitus. 8. Hypertension. 9. Dyslipidemia. 10. End-stage renal disease, on scheduled dialysis with missed dialysis recently. 11. Peripheral artery disease, status post prior revascularization to left lower extremity and left transmetatarsal amputation. RECOMMENDATIONS: 1. Up titrate carvedilol to 6.25 mg every 12 hours. 2. Add hydralazine 10 mg every 4 hours as needed for uncontrolled blood pressure. 3. Consider further up titration of antihypertensives depending on response to further dialysis. I suspect some degree of her blood pressure issues is related to persistence of some degree of volume overload. 4. Echocardiogram has been reviewed. She has preserved left ventricular systolic function with history of heart failure by review of echo with LVH of moderate severity, pattern most consistent with diastolic heart failure. 5. No significant pericardial effusion. Thank you for the opportunity to participate in the care of Ms. Horn. She has been counseled on importance of compliance with followup medications as well as with dialysis. I will be available for any issues, please call at any time on [phone]. We will follow along with you. Anjel Abernathy MD AFS[facility]ah/MODL /[id number]
--- NOTE | 2018-11-07 23:45 | NUR ---
Wound care performed at this time. Patient tolerated well. Call light within reach and instructed to call for assistance. Bed alarm on.
[2018-11-08] VITALS (7 sets, daily range): BP systolic 127–164; BP diastolic 61–71
[2018-11-08 05:45] LABS: BASOPHILS % 0.1 % (0.0-1.0); EOSINOPHILS # (AUTO) 0.1 (0.0-0.4); EOSINOPHILS % 0.7 % (0.0-6.0); HEMATOCRIT 38.6 % (34.2-44.1); HEMOGLOBIN 11.3 g/dL (12.0-16.0); LYMPHOCYTES % 14.9 % (18.0-39.1); MEAN CORPUSCULAR HEMOGLOBIN 27.1 pg (28-32); MEAN CORPUSCULAR HGB CONC 29.3 g/dL (31-35); MEAN CORPUSCULAR VOLUME 92.6 fL (81-99); MONOCYTES # (AUTO) 0.8 (0.2-0.8); NEUTROPHILS % 73.2 % (38.7-80.0); PLATELET COUNT 175 x10e3/uL (140-360); RED BLOOD COUNT 4.17 x10e6/uL (3.6-5.1); RED CELL DISTRIBUTION WIDTH 16.6 % (11.7-14.4)
[2018-11-08] MEDS: LEVOTHYROXINE SODIUM 100 MCG TAB PO SCH (06:00)
[2018-11-08 06:02] LABS: ANION GAP 19.2 mmol/L (8-16); CREATININE, SERUM 8.55 mg/dL (0.57-1.11); POTASSIUM 4.2 mmol/L (3.5-5.1)
[2018-11-08] MEDS: LEVOTHYROXINE SODIUM 75 MCG TAB PO SCH (06:12)
[2018-11-08 06:27] LABS: THYROID STIMULATING HORMONE 24.451 uIU/mL (0.350-4.940)
[2018-11-08 06:38] LABS: CALCIUM 6.6 mg/dL (8.4-10.2)
--- NOTE | 2018-11-08 06:40 | NUR ---
Patient stated she only takes Synthroid 75 mcg.
--- NOTE | 2018-11-08 07:30 | NUR ---
The pt. was received in bed sleeping and does awaken when spoken to. She denies pain or discomfort at this time. Bed rails are elevated times 2 and the pt. caled system is within reach.
[2018-11-08] MEDS: CALCIUM ACETATE 667 MG GELCAP PO SCH ×3 (08:49→17:31)
[2018-11-08] MEDS: CARVEDILOL 3.125 MG TAB PO SCH ×2 (08:49→17:31)
[2018-11-08] MEDS: INSULIN LISPRO 100 UNIT/1 ML 3ML VIAL SQ SCH ×4 (08:49→20:38)
[2018-11-08] MEDS: NIFEDIPINE CR 30 MG TAB PO SCH ×2 (08:50→17:32)
[2018-11-08] MEDS: CLOPIDOGREL BISULFATE 75 MG TAB PO SCH (08:50)
[2018-11-08] MEDS: FUROSEMIDE 40 MG TAB PO SCH ×2 (08:50→17:31)
[2018-11-08] MEDS: NYSTATIN 100,000 UNITS/GM CRM 30GM TUBE TOP SCH (08:51)
[2018-11-08] MEDS: BALSAM PERU/CASTOR OIL 60 GM OINT...G. TP SCH (08:51)
[2018-11-08] MEDS: ZINC OXIDE / BALSAM PERU 30 GM TUBE TOP SCH (08:51)
--- NOTE | 2018-11-08 10:12 | Progress Note ---
DATE: SUBJECTIVE: The patient received dialysis. I am covering for Dr. Sutton today. The patient completed her dialysis. She feels better. She is not complaining of dyspnea or chest pain. PHYSICAL EXAMINATION: VITAL SIGNS: The blood pressure is 141/68 and pulse is 82. The saturation is 96% on 2 L. CARDIAC: Reveals regular rate and rhythm with normal S1 and S2. There are no murmurs or rubs. LUNGS: Auscultation of lungs shows clear breath sounds bilaterally. There is no wheezing. ABDOMEN: Soft, nontender. There is no rebound or guarding. EXTREMITIES: Shows no leg edema. There is a left TMA. LABORATORY DATA: White blood cell count is 6.8 and hemoglobin is 11.3. The platelet count is 175. The BUN to creatinine ratio is normal. The potassium is normal. RADIOGRAPHIC DATA: Chest x-ray from yesterday showed cardiomegaly and increased pulmonary vascular congestion consistent with CHF. IMPRESSION: 1. Acute on chronic systolic congestive heart failure. 2. Fluid overload secondary to renal disease. 3. Hyperkalemia. 4. Hypertension. 5. Peripheral vascular disease. PLAN: 1. Continue current cardiac regimen. 2. Continue dialysis schedule as per Nephrology. 3. Continue to monitor blood pressure and electrolytes. Tello Walker MD [facility]/JONATHAN /[id number]
--- NOTE | 2018-11-08 12:33 | Progress Note ---
DATE: 11/08/2018 Cardiology Progress Note SUBJECTIVE: Denies chest pain or shortness of breath. No complaints today. OBJECTIVE: VITAL SIGNS: Temperature 97.7, heart rate 78, respiratory rate 16, blood pressure 137/63, and O2 saturation 99% on 2 L/minute nasal cannula. GENERAL: No acute distress and alert. NECK: No JVD. CHEST: Clear to auscultation. CARDIOVASCULAR: Regular rate and rhythm. Normal S1 and S2. Systolic ejection murmur /6. ABDOMEN: Soft and nontender. EXTREMITIES: Trace edema. Left TMA. CARDIOVASCULAR MEDICATIONS: Reviewed. Clopidogrel 75 mg daily, nifedipine extended release 30 mg every 12 hours, carvedilol 6.25 mg b.i.d.. Clonidine 0.1 mg q.4 hours p.r.n., last dose given on 11/07/2018 at 1727 hours. Hydralazine 10 mg IV q.4 hours p.r.n., no dose provided so far. LABS: White blood cells 6.8, hemoglobin 11.3, and platelets 175. Sodium 142, potassium , chloride 102, bicarbonate 25, BUN 39, creatinine 8.5, glucose 171, calcium 6.6. TSH 24.4. Tele, sinus rhythm. ASSESSMENT: A 73-year-old woman presenting with: 1. Missed dialysis and noncompliance. 2. Hyperkalemia. 3. Metabolic acidosis. 4. Volume overload, now improved. 5. Hypertensive urgency, now improved. 6. Diabetes mellitus. 7. Hypertension. 8. Dyslipidemia. 9. End-stage renal disease. 10. Peripheral artery disease, status post prior revascularization to left lower extremity and status post left transmetatarsal amputation approximately 3 months ago. RECOMMENDATIONS: 1. Continue current cardiovascular medications. 2. Blood pressure has been optimized. 3. approaching euvolemic state. 4. Metabolic acidosis and hyperkalemia, improved. 5. From cardiac standpoint, okay to discharge with outpatient followup with her outpatient rental coordinator. 6. No significant pericardial effusion on echocardiogram, preserved left ventricular systolic function. The patient had acute on chronic diastolic heart failure, now improved. MD SARAI Amezquita/MODL /[id number]
--- NOTE | 2018-11-08 12:47 | NUR ---
The pt. is currently dialyzing
--- NOTE | 2018-11-08 15:08 | NUR ---
IMM letter delivered and explained to pt. She verbalized understanding. SIgned copy placed in chart. Copy placed in pt's transition of care folder.
--- NOTE | 2018-11-08 16:14 | NUR ---
Nutrition Screen Note RD Recommendation for Physician: -Consider renal, ADA 1800 calorie diet per MD. Plan of Care: RD following, monitoring for tolerance and adequacy Nutrition reason for involvement: Nutrition Risk Trigger-MST of 2 Primary Diagnose(s): ESRD, fluid overload, hyperkalemia PMH: Diabetes mellitustype 2, hypertension, dyslipidemia, peripheral vascular disease, status post prior revascularization to left lower extremity and status post recent left TMA approximately 3 months ago, ESRD on dialysis Ht: 66 in Wt: 222 lb BMI: 35.82 kg/m2 IBW: [address] Assessment: (11/08): 73 YOF admitted for ESRD. Pt was seen receiving dialysis. Pt denied any recent weight loss or poor intake at home. Pt also denied any N/V/C/D as well as any chewing or swallowing issues. Pt denied education regarding ESRD and reported that she has had education before. Pt had no other questions or concerns. Chart reviewed. Labs and meds reviewed. POC-Gluc- elevated. Will continue to monitor. Current Diet: renal diet Malnutrition Evaluation (11/08) The patient does not meet criteria for a specified degree of malnutrition at this time. Will re-evaluate at follow-up as appropriate. Diet Education Needs Assessment: Diet education indicated, pt declined education. Nutrition Care Level: low Signed: Ashlee Swan, RD, LD
--- NOTE | 2018-11-08 19:15 | NUR ---
Patient visited in room during nursing rounds. Patient alert and oriented x3. Left stump (s/p left foot amputation on 07/2018) covered with dressing (C/D/I) with heel support. Right foot covered with dressing (C/D/I) and with heel support. Patient extremely weak and on bedrest at this time. Patient refused to be turned in bed. Stage 2 ulcer to sacrum (covered with allevyn dressing) and stage 2 ulcer on right heel. AV fistula on left arm. Call cast within reach.
--- NOTE | 2018-11-08 19:16 | NUR ---
Patient refused to be turned in bed despite receiving education that sacral ulcer can worsen due to pressure. Patient also refused form IV flush in IV (RH 20g). Visually, IV site look ok and does not appear to be red on insertion site.
[2018-11-08] MEDS: CLONIDINE HCL 0.1 MG TAB PO PRN (20:34)
[2018-11-08] MEDS ORDERED: ACETAMINOPHEN 325 MG TAB PO PRN (23:30)
[2018-11-09] VITALS (7 sets, daily range): BP systolic 106–169; BP diastolic 54–77
[2018-11-09] MEDS: LEVOTHYROXINE SODIUM 75 MCG TAB PO SCH (06:00)
[2018-11-09] MEDS: LEVOTHYROXINE SODIUM 100 MCG TAB PO SCH (06:00)
--- NOTE | 2018-11-09 07:14 | NUR ---
pt asleep resp even and unlabored, pt arousal to name and touch no distress noted, call light in reach.
[2018-11-09] MEDS: INSULIN LISPRO 100 UNIT/1 ML 3ML VIAL SQ SCH ×4 (07:30→21:07)
[2018-11-09] MEDS: BALSAM PERU/CASTOR OIL 60 GM OINT...G. TP SCH (09:56)
[2018-11-09] MEDS: CLOPIDOGREL BISULFATE 75 MG TAB PO SCH (09:56)
[2018-11-09] MEDS: NIFEDIPINE CR 30 MG TAB PO SCH ×2 (09:56→17:09)
[2018-11-09] MEDS: ZINC OXIDE / BALSAM PERU 30 GM TUBE TOP SCH (09:56)
[2018-11-09] MEDS: FUROSEMIDE 40 MG TAB PO SCH ×2 (09:56→17:08)
[2018-11-09] MEDS: NYSTATIN 100,000 UNITS/GM CRM 30GM TUBE TOP SCH (09:56)
[2018-11-09] MEDS: CALCIUM ACETATE 667 MG GELCAP PO SCH ×3 (09:56→17:08)
[2018-11-09] MEDS: CARVEDILOL 3.125 MG TAB PO SCH ×2 (09:56→17:08)
--- NOTE | 2018-11-09 12:54 | Progress Note ---
DATE: I am covering for Dr. Sutton today. SUBJECTIVE: The patient feels better. She is not complaining of dyspnea or chest pain. PHYSICAL EXAMINATION: VITAL SIGNS: The patient is afebrile. The blood pressure is 106/62 and the saturation is 97%. The pulse is 82. HEENT: Shows no facial swelling or erythema. CARDIAC: Reveals regular rate and rhythm with normal S1 and S2. There are no murmurs or rubs heard. LUNGS: Auscultation of lungs reveals clear breath sounds bilaterally. There is no wheezing. ABDOMEN: Soft and nontender. There is no rebound or guarding. EXTREMITIES: No leg edema or calf tenderness. There is no cyanosis or clubbing. SKIN: Shows no rashes. NEUROLOGICAL: Shows no focal abnormalities. LABORATORY DATA: White blood cell count is 6.8 and hemoglobin is 11.3. Platelet count is 175. The blood sugar is 177. IMPRESSION: 1. Acute on chronic systolic congestive heart failure. 2. Fluid overload secondary to renal disease. 3. End-stage renal disease. 4. Hyperkalemia. 5. Hypertension. 6. Peripheral vascular disease. PLAN: 1. Continue current cardiac regimen. 2. Continue dialysis. 3. Out of bed as tolerated, physical therapy. 4. Arrange for disposition and possible discharge. Tello Walker MD [facility]/MODL /[id number]
[2018-11-09] MEDS ORDERED: ONDANSETRON HCL 4 MG ORAL DISINTEGRATING TAB PO PRN (17:15)
--- NOTE | 2018-11-09 19:10 | NUR ---
Patient visited in room during nursing rounds. Patient alert and oriented x3. Left stump (s/p left foot amputation on 07/2018) covered with dressing (C/D/I) with heel support. Right foot covered with dressing (C/D/I) and with heel support. Patient extremely weak and on bedrest at this time. Patient refused to be turned in bed and refused to be bathed. Stage 2 ulcer to sacrum (covered with allevyn dressing) and stage 2 ulcer on right heel. AV fistula on left arm. Calazyme cream applied under abdominal skin folds per pt request. Call cast within reach.
--- NOTE | 2018-11-09 19:40 | NUR ---
report given to oncoming nurse, for cont. care.
--- NOTE | 2018-11-09 20:16 | Progress Note ---
DATE: 11/09/2018 Cardiology Progress Note SUBJECTIVE: No complaints today. Denies chest pain or shortness of breath. OBJECTIVE: VITAL SIGNS: Temperature 99 degrees, heart rate 80, blood pressure 120/57, respiratory rate 18, and O2 saturation 97%. GENERAL: No acute distress and alert. NECK: No JVD. CHEST: Clear to auscultation. CARDIOVASCULAR: Regular rate and rhythm. Normal S1, S2. Systolic ejection murmur. ABDOMEN: Soft, nontender. EXTREMITIES: Trace edema, status post left TMA. CARDIOVASCULAR MEDICATIONS: Reviewed. Furosemide 80 mg b.i.d., nifedipine 30 mg b.i.d., hydralazine 10 mg q.4 hours, carvedilol 6.25 mg b.i.d., and clopidogrel 75 mg daily. STUDIES: Reviewed. Sodium 142, potassium 4.2, chloride 102, bicarbonate 25, BUN 39, creatinine is 8.5, and glucose 136. White blood cells 6.8, hemoglobin 11.3, and platelets 175. INR 1.08. AST 11, ALT 16, alkaline phosphatase 93. ASSESSMENT AND PLAN: A 73-year-old woman with: 1. Missed dialysis and noncompliance. 2. Status post hyperkalemia. 3. Status post metabolic acidosis. 4. Status post volume overload. 5. Status post hypertensive urgency. 6. Diabetes mellitus, hypertension, and dyslipidemia. 7. Peripheral artery disease, status post prior revascularization to left lower extremity and status post left transmetatarsal amputation approximately 3 months ago. RECOMMENDATIONS: 1. Blood pressure has been optimized on current cardiovascular medications. Please continue. 2. Volume management ongoing per Nephrology. 3. Preserved left ventricular systolic function. The patient had episodes of acute on chronic diastolic heart failure, now optimized. From a Cardiovascular standpoint, okay to discharge. Anjel Abernathy MD [facility]/MODL /[id number]
[2018-11-10] VITALS (7 sets, daily range): BP systolic 102–148; BP diastolic 55–67
[2018-11-10] MEDS: LEVOTHYROXINE SODIUM 100 MCG TAB PO SCH (06:12)
[2018-11-10] MEDS: LEVOTHYROXINE SODIUM 75 MCG TAB PO SCH (06:12)
--- NOTE | 2018-11-10 07:15 | NUR ---
pt asleep resp even and unlabored, pt arousal to name and touch, pt able to make needs known, no distress noted, call light in reach.
[2018-11-10] MEDS: FUROSEMIDE 40 MG TAB PO SCH ×2 (09:00→18:01)
[2018-11-10] MEDS: CALCIUM ACETATE 667 MG GELCAP PO SCH ×3 (09:31→18:02)
[2018-11-10] MEDS: CARVEDILOL 3.125 MG TAB PO SCH ×2 (09:32→18:01)
[2018-11-10] MEDS: CLOPIDOGREL BISULFATE 75 MG TAB PO SCH (09:32)
[2018-11-10] MEDS: ZINC OXIDE / BALSAM PERU 30 GM TUBE TOP SCH (09:32)
[2018-11-10] MEDS: NIFEDIPINE CR 30 MG TAB PO SCH ×2 (09:32→17:00)
[2018-11-10] MEDS: NYSTATIN 100,000 UNITS/GM CRM 30GM TUBE TOP SCH (09:33)
[2018-11-10] MEDS: BALSAM PERU/CASTOR OIL 60 GM OINT...G. TP SCH (09:33)
--- NOTE | 2018-11-10 10:14 | Progress Note ---
DATE: Pulmonary Critical Care Progress Note SUBJECTIVE: I am covering for Dr. Sutton today. The patient still reports weakness. She was able to sit up with physical therapy, but was not able to ambulate independently. PHYSICAL EXAMINATION: VITAL SIGNS: The blood pressure was 118/59, pulse was 68, and respiratory rate was 20. HEENT: Shows no facial swelling or erythema. CARDIAC: Reveals regular rate and rhythm with normal S1 and S2. There are no murmurs or rubs. LUNGS: Auscultation of lungs shows clear breath sounds bilaterally. There is no wheezing. ABDOMEN: Soft and nontender. There is no rebound or guarding. EXTREMITIES: Show no leg edema or calf tenderness. There is no cyanosis or clubbing. SKIN: Shows no rashes. NEUROLOGICAL: Shows no focal abnormalities. IMPRESSION: 1. Deconditioning and weakness. 2. Acute on chronic systolic congestive heart failure. 3. Fluid overload secondary to kidney disease. 4. End-stage renal disease. 5. Hyperkalemia. 6. Hypertension. 7. Peripheral vascular disease. PLAN: 1. Continue physical therapy. 2. Consider SNF placement versus home physical therapy depending on the patient's progress with physical therapy. 3. Continue dialysis as scheduled. 4. Continue current cardiac regimen. MD EVELYN Ma/JONATHAN /[id number]
[2018-11-10] MEDS: INSULIN LISPRO 100 UNIT/1 ML 3ML VIAL SQ SCH ×4 (10:21→23:18)
--- NOTE | 2018-11-10 19:10 | NUR ---
Patient visited in room during nursing rounds. Patient alert and oriented x3. Left stump (s/p left foot amputation on 07/2018) covered with dressing (C/D/I) with heel support. Right foot covered with dressing (C/D/I) and with heel support. Patient extremely weak and on bedrest at this time. Patient turn herself in bed. Stage 2 ulcer to sacrum (covered with allevyn dressing) and stage 2 ulcer on right heel. AV fistula on left arm. Calazyme cream applied under abdominal skin folds per pt request. Patient offered bath and still refused. Call cast within reach.
--- NOTE | 2018-11-10 19:25 | NUR ---
report given to oncoming nurse, for continued care.
--- NOTE | 2018-11-10 22:00 | NUR ---
IV (20g) on right hand inadvertently came out. Patient refused new IV to be placed. Educated pt importance of presence of peripheral IV. But patient still refused to be stuck. Will pass this info to dayshift RN.
--- NOTE | 2018-11-10 23:06 | Progress Note ---
DATE: 11/10/2018 Cardiology Progress Note SUBJECTIVE: Denies any chest pain or shortness of breath. No complaints today, sitting upright, tolerating meals. OBJECTIVE: VITAL SIGNS: Reviewed. Temperature 98.3, heart rate 70, blood pressure 102/55, respiratory rate 19, and O2 saturation 95%. BMI 35.8. GENERAL: In no acute distress, alert. NECK: No JVD. No carotid bruit. CHEST: Clear to auscultation. CARDIOVASCULAR: Regular rate and rhythm. Normal S1 and S2. No S3 or S4. ABDOMEN: Soft, nontender. EXTREMITIES: No edema. Left TMA. CARDIOVASCULAR MEDICATIONS: Reviewed. Furosemide 80 mg b.i.d., nifedipine 30 mg b.i.d., hydralazine 10 mg q.4 hours p.r.n., carvedilol 6.25 mg every 12 hours, clopidogrel 75 mg daily, and clonidine 0.1 mg every 4 hours p.r.n. LABORATORY DATA: Studies reviewed. Sodium 142, potassium 4.2, chloride 102, bicarbonate 25, BUN 39, creatinine 8.5, glucose 136. White blood cell 6.8, hemoglobin 11.3, and platelets 175. INR 1.08. AST 11, ALT 16, alkaline phosphatase 93. ASSESSMENT: 1. Acute on chronic diastolic heart failure. 2. Hypertension. 3. . 4. End-stage renal disease. 5. Peripheral artery disease, status post prior left lower extremity revascularization and left TMA. 6. Morbid obesity. RECOMMENDATIONS: 1. Continue current antihypertensives and anti-platelet agents. 2. Volume management per Nephrology. 3. Consider statin. 4. Okay to discharge from a cardiovascular standpoint. Anjel Abernathy MD AFSarah/MODOle /[id number] MTDD
[2018-11-11] VITALS (7 sets, daily range): BP systolic 103–150; BP diastolic 53–67
[2018-11-11] MEDS: LEVOTHYROXINE SODIUM 100 MCG TAB PO SCH (06:15)
[2018-11-11] MEDS: LEVOTHYROXINE SODIUM 75 MCG TAB PO SCH (06:15)
[2018-11-11] MEDS: INSULIN LISPRO 100 UNIT/1 ML 3ML VIAL SQ SCH ×4 (07:30→20:55)
--- NOTE | 2018-11-11 07:45 | NUR ---
The pt. was received from off-going nurse post bedside rounds awake and sitting on the bedside. She denies pain or discomfort at this time but requests a bath and the PCT was made aware of same.
[2018-11-11] MEDS: CALCIUM ACETATE 667 MG GELCAP PO SCH ×3 (08:24→17:08)
[2018-11-11] MEDS: ZINC OXIDE / BALSAM PERU 30 GM TUBE TOP SCH (08:25)
[2018-11-11] MEDS: NIFEDIPINE CR 30 MG TAB PO SCH (08:25)
[2018-11-11] MEDS: CLOPIDOGREL BISULFATE 75 MG TAB PO SCH (08:25)
[2018-11-11] MEDS: CARVEDILOL 3.125 MG TAB PO SCH ×2 (08:25→17:07)
[2018-11-11] MEDS: FUROSEMIDE 40 MG TAB PO SCH ×2 (08:25→17:08)
[2018-11-11] MEDS: BALSAM PERU/CASTOR OIL 60 GM OINT...G. TP SCH (08:26)
[2018-11-11] MEDS: NYSTATIN 100,000 UNITS/GM CRM 30GM TUBE TOP SCH (08:26)
--- NOTE | 2018-11-11 10:00 | NUR ---
Dialysis is in process and the pt. will shower post dialysis is completed.
[2018-11-11 10:07] LABS: BASOPHILS % 0.1 % (0.0-1.0); EOSINOPHILS # (AUTO) 0.1 (0.0-0.4); EOSINOPHILS % 1.6 % (0.0-6.0); HEMATOCRIT 35.5 % (34.2-44.1); HEMOGLOBIN 10.9 g/dL (12.0-16.0); MEAN CORPUSCULAR HEMOGLOBIN 27.7 pg (28-32); MEAN CORPUSCULAR HGB CONC 30.7 g/dL (31-35); MEAN CORPUSCULAR VOLUME 90.3 fL (81-99); MONOCYTES # (AUTO) 0.8 (0.2-0.8); MONOCYTES % 11.2 % (4.4-11.3); NEUTROPHILS % 72.7 % (38.7-80.0); PLATELET COUNT 188 x10e3/uL (140-360); RED BLOOD COUNT 3.93 x10e6/uL (3.6-5.1); RED CELL DISTRIBUTION WIDTH 15.9 % (11.7-14.4)
[2018-11-11 10:25] LABS: ANION GAP 19.8 mmol/L (8-16); CALCIUM 7.2 mg/dL (8.4-10.2); CREATININE, SERUM 10.15 mg/dL (0.57-1.11); POTASSIUM 4.8 mmol/L (3.5-5.1)
[2018-11-11] MEDS ORDERED: HEPARIN SOD (PORCINE) 1000 UNIT/ML 10ML MDV IM ONE (11:00)
[2018-11-11] MEDS ORDERED: TEMAZEPAM 15 MG CAP PO PRN (11:45)
--- NOTE | 2018-11-11 12:18 | NUR ---
Spoke to pt at bedside regarding SNF eval. Pt stated she does not want to go to [facility], she has been there previously and didn't like it. Choice letter signed for Michaelle Julian and placed in chart. Copy to pt. IMM letter delivered and explained to pt. She verbalized understanding. Signed copy placed in chart. Copy to pt.
--- NOTE | 2018-11-11 12:25 | NUR ---
WOUND CARE CONSULTATION - INITIAL EVALUATION Patient admitted from home to ER for Dyspnea, No HD in last 2 wks. DX: ESRD, Fluid Volume Overload, Hyperkalemia. LABS: WBC6.21 HGB11.6 HCT38.4 NEUT%79.4 ALB2.5 Wound Care Consulted for LEFT FOOT Wound Dehiscence Evaluation and Recommendation. PATIENT VISIT: - Torsten Score 13 - Moderate PUP Active - Alternating Pressure Air Mattress in place and set to patient current weight. - Patient in good spirits. AAOX4. - Note Patient seen after 4th visit attempt. - Presents with *LLE TMA Surgical Dehiscence - area dry, no drainage noted. No Redness or swelling noted to foot. Fibrotic tissue to wound bed 20%. No Sutures present and open to air at time of visit. - Left Heel ulcer. Open bullae non healing. Patient states she uses heels to scoot up in bed. Left Heel intact. - Mid Abdominal folds, Groin areas and Perirectal areas- mild odor present, areas overly moist, reddened. Complains of burning to areas and areas stay constantly moist. - Mid Gluteal Fold - Open ulceration consistent with shear friction and pressure. Linear Ulceration, partial thickness draining serous fluid- light. - Treatment plan reviewed with patient and agreeable. -Reviewed care with Dr. Sutton. -Deep Cultured TMA Site & Left Heel Ulcers now that it is draining. Areas appears stable. Serous fluid. IMPRESSION: 1. Mid Gluteal Fold -Stage II- PU - POA 2. Abdominal Folds & Perineal Areas-Dermatologic Rash- Yeast 3. *LEFT HEEL-Unstageable - Pressure Ulcer - POA. 4. *LEFT TMA -Surgical Dehiscence RECOMMENDATION: 1. Mid Gluteal Fold -Stage II- PU - POA - Wash area with Mild Soap and Water then Pat Dry Thoroughly. - Apply Tuyet Cream mixed with Nystatin Cream (1:1 ratio) and Cover with Allevyn Foam Sacrum dressing Daily. 2. Abdominal Folds & Perineal Areas-Dermatologic Rash- Yeast - Wash area with Mild Soap and Water then Pat Dry Thoroughly. - Apply [place] Cream mixed with Nystatin Cream (1:1 ratio) and Cover with Allevyn Foam Sacrum dressing Daily. 3. LEFT HEEL-UNSTAGEABLE- PU - POA - Cleanse with NS and 4x4 Gauze. - Apply Medihoney and Cover with Alginate + ABD Pad and Wrap with Kerlix Daily. 4. LEFT TMA -Surgical Dehiscence - POA - Cleanse with NS and 4x4 Gauze. - Apply Medihoney and Cover with Alginate then staggered 4x4 gauze and Wrap with Kerlix Daily. 6. Turn and Reposition every 2 hours using turning clock schedule 7. HOB elevated to < or = to 30 Degrees as tolerated 8. Continue Alternating Pressure Air Mattress and adjust mattress to patient current weight. 9. Bilateral Heel Protectors Thank you for consulting with Wound Care. Addendum: 11/11/18 at 1233 by Sarath Carrion RN Amended: Links added.
--- NOTE | 2018-11-11 12:49 | Progress Note ---
DATE: 11/11/2018 Cardiology Progress Note SUBJECTIVE: No complaints. OBJECTIVE: VITAL SIGNS: Temperature 97.6, heart rate 61, respiratory rate 20, blood pressure 103/53, and O2 sat 95% on 2 L/minute nasal cannula. GENERAL: In no acute distress, alert. NECK: No JVD. CHEST: Clear to auscultation. CARDIOVASCULAR: Regular rate and rhythm. Normal S1, S2. ABDOMEN: Soft, nontender. EXTREMITIES: Trace edema. Left TMA. CARDIOVASCULAR MEDICATIONS: Reviewed. Furosemide 80 mg p.o. b.i.d., clopidogrel 75 mg daily, carvedilol 6.25 mg every 12 hours, nifedipine 30 mg b.i.d., clonidine 0.1 mg q.4 hours p.r.n., and hydralazine 10 mg q.4 hours p.r.n. STUDIES: Reviewed. Glucose 170 from 11/02/2018. No labs otherwise for today. Telemetry, sinus rhythm. ASSESSMENT: 1. Acute on chronic diastolic heart failure. 2. Hypertension. 3. End-stage renal disease. 4. Peripheral artery disease, status post left transmetatarsal amputation and previous left lower extremity revascularization reported. 5. Morbid obesity. 6. Deconditioning. RECOMMENDATIONS: 1. Awaiting placement. 2. Continue rest of cardiovascular medications. MD SARAI Amezquita/JONATHAN /[id number]
--- NOTE | 2018-11-11 14:28 | NUR ---
SNF referral was faxed to [address] [place] [address]
[2018-11-11] MEDS: LACTOBACILLUS ACIDOPHILUS CAPSULE PO SCH (17:08)
[2018-11-11] MEDS: CIPROFLOXACIN 500 MG TAB PO SCH (17:50)
[2018-11-11] MEDS: HEPARIN SOD (PORCINE) 5,000 UNIT/ML VIAL SC SCH (20:55)
[2018-11-12] VITALS (7 sets, daily range): BP systolic 128–181; BP diastolic 60–77
[2018-11-12] MEDS: LEVOTHYROXINE SODIUM 100 MCG TAB PO SCH (05:24)
[2018-11-12] MEDS: LEVOTHYROXINE SODIUM 75 MCG TAB PO SCH (05:24)
--- NOTE | 2018-11-12 07:30 | NUR ---
REC'D PT IN SEMI-FOWLERS POSITION, O2 RUNNING AT 2L/MIN VIA NC. NO S/S OF DISTRESS. BED IN LOWEST POSITION, SIDE RAILS UP X2, AND CALL JEFFERSON WITHIN REACH.
[2018-11-12] MEDS: INSULIN LISPRO 100 UNIT/1 ML 3ML VIAL SQ SCH ×4 (08:30→21:00)
[2018-11-12] MEDS: FUROSEMIDE 40 MG TAB PO SCH ×2 (09:00→18:23)
[2018-11-12] MEDS: CARVEDILOL 3.125 MG TAB PO SCH ×2 (09:00→18:22)
[2018-11-12] MEDS: CLOPIDOGREL BISULFATE 75 MG TAB PO SCH (09:00)
[2018-11-12] MEDS: NIFEDIPINE CR 30 MG TAB PO SCH (09:00)
[2018-11-12] MEDS: LACTOBACILLUS ACIDOPHILUS CAPSULE PO SCH ×2 (09:13→18:23)
[2018-11-12] MEDS: LORATADINE/PSEUDOEPHEDRINE 24 HR SR TAB PO SCH (09:13)
[2018-11-12] MEDS: CALCIUM ACETATE 667 MG GELCAP PO SCH ×3 (09:13→18:23)
[2018-11-12] MEDS ORDERED: LORATADINE 10 MG TAB PO SCH (10:15)
[2018-11-12] MEDS: HEPARIN SOD (PORCINE) 5,000 UNIT/ML VIAL SC SCH ×2 (11:25→21:23)
--- NOTE | 2018-11-12 12:23 | Progress Note ---
DATE: 11/12/2018 Cardiology Progress Note SUBJECTIVE: No complaints. OBJECTIVE: VITAL SIGNS: Temperature 97.5, heart rate 59, respiratory rate 20, blood pressure 147/77, O2 saturation 97% on 2 L/minute nasal cannula. GENERAL: No acute distress, alert. NECK: No JVD. CHEST: Clear to auscultation. CARDIOVASCULAR: Regular rate and rhythm. Normal S1, S2. ABDOMEN: Soft. EXTREMITIES: Trace edema. Left TMA. CARDIOVASCULAR MEDICATIONS: Reviewed. Furosemide 80 mg b.i.d., carvedilol 3.125 mg every 12 hours, clopidogrel 75 mg daily, clonidine 0.1 mg p.r.n., nifedipine 30 mg daily. STUDIES: Glucose 280. TELEMETRY: Sinus rhythm. ASSESSMENT: 1. Hypertensive urgency, now improved. 2. Acute on chronic diastolic heart failure. 3. End-stage renal disease. 4. Peripheral arterial disease. 5. Morbid obesity. 6. Deconditioning. RECOMMENDATIONS: 1. Awaiting placement. 2. Continue rest of cardiovascular medication. 3. Volume management per Nephrology. The patient on intermittent dialysis. Anjel Abernathy MD AFV/MODL /[id number]
--- NOTE | 2018-11-12 15:40 | NUR ---
Spoke with Avelina at [facility]. She stated they have auth, but will need to have pt's dialysis chair transferred to [place] location. [facility]
--- NOTE | 2018-11-12 18:10 | NUR ---
PT SITTING AT EDGE OF BED EATING DINNER. NO S/S OF DISTRESS. NC IN PLACE RUNNING AT 2L/MIN. CALL JEFFERSON WITHIN REACH.
[2018-11-12] MEDS: ZINC OXIDE / BALSAM PERU 30 GM TUBE TOP SCH (18:22)
[2018-11-12] MEDS: NYSTATIN 100,000 UNITS/GM CRM 30GM TUBE TOP SCH (18:22)
[2018-11-12] MEDS: CIPROFLOXACIN 500 MG TAB PO SCH (18:24)
[2018-11-12] MEDS ORDERED: MELATONIN 3 MG TAB PO SCH (21:00)
[2018-11-12] MEDS: CLONIDINE HCL 0.1 MG TAB PO PRN (21:23)
[2018-11-13] VITALS: BP 164/71
[2018-11-13 04:00] VITALS: BP 174/76
[2018-11-13] MEDS: LEVOTHYROXINE SODIUM 75 MCG TAB PO SCH (06:04)
[2018-11-13] MEDS: LEVOTHYROXINE SODIUM 100 MCG TAB PO SCH (06:04)
[2018-11-13] MEDS: CLONIDINE HCL 0.1 MG TAB PO PRN (06:48)
[2018-11-13] MEDS: INSULIN LISPRO 100 UNIT/1 ML 3ML VIAL SQ SCH ×3 (07:30→16:18)
[2018-11-13 08:05] VITALS: BP 181/74
[2018-11-13 08:22] VITALS: BP 181/74
[2018-11-13] MEDS: FUROSEMIDE 40 MG TAB PO SCH ×2 (09:21→16:18)
[2018-11-13] MEDS: CLOPIDOGREL BISULFATE 75 MG TAB PO SCH (09:21)
[2018-11-13] MEDS: LACTOBACILLUS ACIDOPHILUS CAPSULE PO SCH ×2 (09:21→16:18)
[2018-11-13] MEDS: NIFEDIPINE CR 30 MG TAB PO SCH (09:21)
[2018-11-13] MEDS: HEPARIN SOD (PORCINE) 5,000 UNIT/ML VIAL SC SCH (09:21)
[2018-11-13] MEDS: CARVEDILOL 3.125 MG TAB PO SCH ×2 (09:21→16:19)
[2018-11-13] MEDS: CALCIUM ACETATE 667 MG GELCAP PO SCH ×3 (09:21→16:18)
[2018-11-13] MEDS: LORATADINE/PSEUDOEPHEDRINE 24 HR SR TAB PO SCH (09:21)
[2018-11-13] MEDS: NYSTATIN 100,000 UNITS/GM CRM 30GM TUBE TOP SCH (09:22)
[2018-11-13] MEDS: ZINC OXIDE / BALSAM PERU 30 GM TUBE TOP SCH (09:22)
--- NOTE | 2018-11-13 11:50 | NUR ---
CALLED LEN AT [facility] LEFT MESSAGE FOR UPDATE ON REFERRAL.
[2018-11-13 12:11] VITALS: BP 129/59
--- NOTE | 2018-11-13 13:13 | NUR ---
CM updated pt at bedside on referral status on [facility]. IMM letter delivered and explained to pt. She verbalized understanding. Signed copy placed in chart. Copy to pt.
--- NOTE | 2018-11-13 13:48 | NUR ---
CALLED [facility] AND WAS ABLE TO GET INFORMATION ABOUT TRANSFERRING PT TO [facility] FAXED CLINICALS TO [facility] [phone]
--- NOTE | 2018-11-13 13:52 | NUR ---
WAS TOLD THEY CANNOT DO A SUN, AND SAT CHAIR LIKE SHE HAS AT OTHER FACILITY, CAN START SUNDAY WILL SEND ACCEPT LETTER. SPOKE WITH CM AND LET KNOW PROGRESS. NURSE WILL CONTACT DR EASON TO DETERMINE IF PT NEEDS ANOTHER DIALYSIS TREATMENT PRIOR TO DISCHARGE.
--- NOTE | 2018-11-13 14:09 | Progress Note ---
DATE: 11/13/2018 Cardiology Progress Note SUBJECTIVE: No complaints today. Blanca is happy to be sitting up in wheelchair and working with PT/OT. OBJECTIVE: VITAL SIGNS: Temperature 97.8, heart rate 62, respiratory rate 20, blood pressure 181/74, and O2 saturation 95%. BMI 36.6. GENERAL: In no acute distress, alert. NECK: No JVD. CHEST: Clear to auscultation. CARDIOVASCULAR: Regular rate and rhythm. Normal S1, S2. No S3 or S4. ABDOMEN: Soft, nontender. EXTREMITIES: Trace edema. Left TMA. CARDIOVASCULAR MEDICATIONS: Reviewed. Clopidogrel 75 mg daily, carvedilol 3.125 mg every 12 hours, furosemide 80 mg b.i.d., and nifedipine 30 mg b.i.d. STUDIES: Reviewed. Sodium 135, potassium 4.8, chloride 94, bicarbonate 26, BUN , creatinine 10, and glucose 192. White blood cells 6.8, hemoglobin 10.9, and platelets 188. INR 1.08. AST 11, ALT 16, and alkaline phosphatase 93. ASSESSMENT: 1. End-stage renal disease. 2. Hypertension. 3. Diabetes mellitus. 4. Dyslipidemia. 5. Peripheral arterial disease. 6. Acute on chronic diastolic heart failure. RECOMMENDATIONS: 1. Continue current cardiovascular medication. 2. Awaiting disposition. MD SARAI Amezquita/JONATHAN /[id number]
--- NOTE | 2018-11-13 14:28 | NUR ---
I TEXTED DR ABOUT SUNDAY START ON DIALYSIS WAITING ON RESPONSE.
[2018-11-13 15:51] VITALS: BP 146/63
--- NOTE | 2018-11-13 16:53 | NUR ---
ZOYA spoke with Dr. Mercado who stated pt can continue dialysis on Sunday. Received dialysis chair from Cassidy with [facility] [address] [place] [address] First chair time will be on Thursday November 15, 2018 at 4:15 pm MEMO called and informed Avelina at [facility] and faxed copy of dialysis letter to [phone]. She has already received PASRR. Received room assignment [address] [address] [address] Chavez to attend Rm [id number] RTF completed and placed at nurse's station with pt's clinical packet. Copy of dialysis letter placed in packet. copy of PASRR in chart. BARTOLOME Segovia informed of bed assignment.
[2018-11-13] MEDS ORDERED: NIFEDIPINE CR 30 MG TAB PO SCH (17:00)
--- NOTE | 2018-11-13 17:23 | NUR ---
Report called to Michaelle prakash and given to Brody Aviles LVN of patient's status.
--- NOTE | 2018-11-13 18:34 | NUR ---
Taken via stretcher by [facility]. AAOx3 to time, person, place. Respirations even and unlabored. Dressing to left foot clean, dry, and intact. All personal belongings taken with patient. Transfer package given to EMS. Patient states "Ill call my family to let them know I am being transferred to [facility]"
--- NOTE | 2018-11-14 05:53 | Discharge Summary ---
PRIMARY CARE DOCTOR: Dr. Tl Patel. FINAL DIAGNOSES: 1. Severe hyperkalemia and pulmonary edema due to missing dialysis. SECONDARY DIAGNOSES: 1. Debility. 2. Left transmetatarsal amputation wound. 3. Hypothyroidism. 4. Hypertension. 5. Diabetes. 6. End-stage renal disease due to diabetes. CONSULTANTS: 1. Dr. Abernathy, Cardiology. 2. Dr. Mercado, Nephrology. PROCEDURES/STUDIES PERFORMED: Multiple dialysis. HISTORY: Per H and P. HOSPITAL COURSE: The patient underwent emergent dialysis, her severe hyperkalemia and pulmonary edema got better. Due to her debility, the patient will be going to [facility] for a skilled PT. The patient had a left transmetatarsal amputation about three months ago, it has been healing slowly. Deep wound culture is showing Pseudomonas that is sensitive to ciprofloxacin. Therefore, patient will be on renal dose of ciprofloxacin. The patient will follow up with her [facility] orthopedic doctor. The patient's TSH is elevated; however, I did not adjust her levothyroxine dosage because I suspect she is very compliant with her medication. The patient received heparin subcu for DVT prophylaxis. The patient was seen and examined today. It took 32 minutes total to discharge this patient. CONDITION ON DISCHARGE: Improved. DISCHARGE MEDICATIONS: Please see medication reconciliation form. MD DOMINIK Mills/JONATHAN /[id number]
== END 2018-11-13 18:38 | DRG 640 ==
LOC: ER 13:20 → ERHOLD 18:31 → MED/SURG2 11-07 02:10
PROVIDERS: ADMIT Internal Medicine; ATTEND Internal Medicine
PROC: 5A1D70Z Performance of Urinary Filtration, Intermittent, Less than 6 Hours Per Day (ICD-10-PCS; principal; 2018-11-06)
PROC: 5A1D70Z Performance of Urinary Filtration, Intermittent, Less than 6 Hours Per Day (ICD-10-PCS; 2018-11-07)
PROC: 5A1D70Z Performance of Urinary Filtration, Intermittent, Less than 6 Hours Per Day (ICD-10-PCS; 2018-11-08)
PROC: 5A1D70Z Performance of Urinary Filtration, Intermittent, Less than 6 Hours Per Day (ICD-10-PCS; 2018-11-11)
PROC: 5A1D70Z Performance of Urinary Filtration, Intermittent, Less than 6 Hours Per Day (ICD-10-PCS; 2018-11-12)
DX: E87.5 Hyperkalemia (principal); N18.6 End stage renal disease; I50.23 Acute on chronic systolic (congestive) heart failure; I13.2 Hypertensive heart and chronic kidney disease with heart failure and with stage 5 chronic kidney disease, or end stage renal disease; E11.22 Type 2 diabetes mellitus with diabetic chronic kidney disease; Z99.2 Dependence on renal dialysis; Z91.15 Patient's noncompliance with renal dialysis; E11.51 Type 2 diabetes mellitus with diabetic peripheral angiopathy without gangrene; E87.2 Acidosis; E78.5 Hyperlipidemia, unspecified; I16.0 Hypertensive urgency; Z89.432 Acquired absence of left foot; E03.9 Hypothyroidism, unspecified; E66.01 Morbid (severe) obesity due to excess calories; Z68.36 Body mass index [BMI] 36.0-36.9, adult; K21.9 Gastro-esophageal reflux disease without esophagitis; J44.9 Chronic obstructive pulmonary disease, unspecified; Z77.22 Contact with and (suspected) exposure to environmental tobacco smoke (acute) (chronic); Z79.52 Long term (current) use of systemic steroids
CPT/HCPCS: 36415; 71045; 80048; 80053; 80061; 82550; 82553; 82948; 83735; 83880; 84443; 84484; 85025; 85610; 85730; 86140; 87071; 87186; 87205; 90962; 93005; 93306; 94640; 97139; 99284; J0360; J0610; J1644; J2001; J2270; J2543; J3370; J7030; J7050; J7799

== ENCOUNTER 2018-12-23 18:02 | Inpatient (IN) | payer MEDICARE ==
[~2018-12-23] VITALS: Ht 167.6 cm; Wt 103.4 kg
[~2018-12-23 18:02] MED LIST changes: +CALCIUM ACETAT667 M1; +CALCIUM ACETAT667 MG PO; +CARVEDILOL3.125 MG PO; +CILOSTAZOL100 MG PO; +CLOPIDOGREL75 MG PO; +DOCUSATE SODIU100 MG PO; +LEVOTHYROXINE75 MCG PO; +MELATONIN3 MG PO; +OXYCODONE-ACET1 EAC1 PO
--- OUTSIDE RECORDS SUMMARY | 2018-12-23 18:06 | XMS REPORT | Clinical Summary ---
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 Active [...] 0 capsule daily . 09/09/2018 Discontinued omega 4-syq-ugv-fish oil Take 6 0 (FISH OIL) 1,000 [...] EVERY DAY. 09/09/[address] phen[address]-shark Place 0 [id number]-tjjb-uyq rectally as (HEMORRHOIDAL) Crea needed. 09/09/2018 Discontinued [...] 07/23/2018 Surgery 07/20/2018 Travel Jr Lala MD [facility], Fely Acevedo MD 07/19/2018 [facility] Cardiology - Encounter 07/27/2018 Bakari Cuenca MD Hemorrhoids, unspecified hemorrhoid type (Primary Dx); Essential hypertension; ESRD (end stage renal disease) (HCC); Simple chronic bronchitis (HCC) 05/18/2018 Emergency Emergency Medicine 05/18/2018 Travel after 12/22/2017 Social History Date Tobacco Use Types Packs/Day [...] Taken Vital Sign Reading 09/17/2018 3:17 PM [facility]TER Blood Pressure 136/62 09/17/2018 3:17 PM [facility] Pulse 76 09/17/2018 3:17 PM [facility] Temperature 35.8 C (96.4 F) 09/17/2018 3:17 PM [facility] Respiratory Rate 20 09/17/2018 3:17 PM [facility] Oxygen Saturation 98% - Inhaled Oxygen - Concentration 09/17/2018 8:45 AM [facility]AL [facility]TER Weight 104.7 kg (230 lb 13.2 oz) 09/09/2018 9:34 PM [facility]AL [facility] Height 167.6 cm (5' 6") 09/17/2018 8:45 AM [facility]AL [facility] Body Mass Index 37.26 Plan of Treatment Not on file Procedures Comments Procedure Name Priority Date/Time Associated Diagnosis RHYTHM STRIP - SCAN 09/20/2018 10:00 AM [facility] POCT-GLUCOSE METER Routine 09/17/2018 2:43 PM [facility]TER HEMODIALYSIS INPATIENT Routine 09/17/2018 1:30 PM [facility]TER POCT-GLUCOSE METER Routine 09/17/2018 12:50 PM [facility]TER POCT-GLUCOSE METER Routine 09/17/2018 8:19 AM [facility]AL [facility]TER CBC W/PLT COUNT & AUTO Routine 09/17/2018 DIFFERENTIAL 5:09 AM [facility]AL [facility]TER BASIC METABOLIC PANEL (7) Routine 09/17/2018 5:09 AM [facility]AL [facility]TER CBC W/PLT COUNT & AUTO Routine 09/17/2018 DIFFERENTIAL 5:09 AM [facility]TER POCT-GLUCOSE METER Routine 09/16/2018 9:36 PM [facility]TER POCT-GLUCOSE METER Routine 09/16/2018 5:57 PM [facility]TER POCT-GLUCOSE METER Routine 09/16/2018 12:15 PM [facility]TER POCT-GLUCOSE METER Routine 09/16/2018 8:07 AM [facility]AL [facility]TER POCT-GLUCOSE METER Routine 09/15/2018 9:27 PM [facility]AL [facility]TER POCT-GLUCOSE METER Routine 09/15/2018 4:30 PM [facility]TER POCT-GLUCOSE METER Routine 09/15/2018 11:42 AM [facility]TER POCT-GLUCOSE METER Routine 09/15/2018 9:31 AM [facility]TER POCT-GLUCOSE METER Routine 09/14/2018 9:22 PM [facility]TER HEMODIALYSIS INPATIENT Routine 09/14/2018 6:47 PM [facility]TER BASIC METABOLIC PANEL (7) Routine 09/14/2018 4:09 PM [facility]TER POCT-GLUCOSE METER Routine 09/14/2018 12:50 PM [facility]TER POCT-GLUCOSE METER Routine 09/14/2018 8:56 AM [facility]TER BLOOD CULTURE STAT 09/14/2018 6:43 AM [facility]AL [facility]TER CBC W/PLT COUNT & AUTO Routine 09/14/2018 DIFFERENTIAL 6:42 AM [facility]AL [facility]TER CBC W/PLT COUNT & AUTO Routine 09/14/2018 DIFFERENTIAL 6:42 AM [facility]TER POCT-GLUCOSE METER Routine 09/13/2018 8:57 PM [facility] BLOOD CULTURE STAT 09/13/2018 8:40 PM [facility]TER POCT-GLUCOSE METER Routine 09/13/2018 6:55 PM [facility]TER POCT-GLUCOSE METER Routine 09/13/2018 12:54 PM [facility]AL [facility]TER POCT-GLUCOSE METER Routine 09/13/2018 8:10 AM [facility]AL [facility]TER CBC W/PLT COUNT & AUTO Routine 09/13/2018 DIFFERENTIAL 4:59 AM [facility]AL [facility]TER CBC W/PLT COUNT & AUTO Routine 09/13/2018 DIFFERENTIAL 4:59 AM [facility] POCT-GLUCOSE METER Routine 09/12/2018 9:36 PM [facility]TER POCT-GLUCOSE METER Routine 09/12/2018 5:46 PM [facility]AL S[facility]TER POCT-GLUCOSE METER Routine 09/12/2018 4:07 PM [facility] HEMODIALYSIS INPATIENT Routine 09/12/2018 1:00 PM [facility]TER POCT-GLUCOSE METER Routine 09/12/2018 7:20 AM [facility]AL [facility]TER CBC W/PLT COUNT & AUTO Routine 09/12/2018 DIFFERENTIAL 4:51 AM [facility]AL [facility]TER BASIC METABOLIC PANEL (7) Routine 09/12/2018 4:51 AM [facility] CBC W/PLT COUNT & AUTO Routine 09/12/2018 DIFFERENTIAL 4:51 AM [facility]TER POCT-GLUCOSE METER Routine 09/11/2018 9:08 PM [facility]TER POCT-GLUCOSE METER Routine 09/11/2018 6:18 PM [facility]TER TRANSFUSION SERVICE 09/11/2018 REPORT - SCAN 6:01 PM [facility]TER POCT-GLUCOSE METER Routine 09/11/2018 1:00 PM [facility]TER POCT-GLUCOSE METER Routine 09/11/2018 9:13 AM [facility]AL [facility]TER CBC W/PLT COUNT & AUTO Routine 09/11/2018 DIFFERENTIAL 4:56 AM [facility]TER BASIC METABOLIC PANEL (7) Routine 09/11/2018 4:56 AM [facility]AL [facility]TER CBC W/PLT COUNT & AUTO Routine 09/11/2018 DIFFERENTIAL 4:56 AM [facility]AL [facility]TER PT/APTT Routine 09/11/2018 4:56 AM [facility]AL [facility]TER POCT-GLUCOSE METER Routine 09/10/2018 9:57 PM [facility]AL [facility]TER POCT-GLUCOSE METER Routine 09/10/2018 7:00 PM [facility]TER POCT-GLUCOSE METER Routine 09/10/2018 5:10 PM [facility]TER TISSUE EXAM AP Routine 09/10/2018 1:58 PM [facility]AL [facility]TER POTASSIUM-STAT LAB STAT 09/10/2018 12:59 PM [facility]AL [facility]TER AMPUTATION,FOOT 09/10/2018 Gangrene (HCC) 12:20 PM [facility]AL [facility]TER Case Notes 2 HRS PER CRISTIAN ENCISO BY CINDY TO POST @ 1/09/09 @ 1:54 HEMODIALYSIS INPATIENT Routine 09/10/2018 12:17 PM [facility]AL [facility]TER IRON, TIBC, % SAT. Routine 09/10/2018 (WITHOUT FERRITIN) 10:37 AM [facility]AL [facility]TER PHOSPHORUS Routine 09/10/2018 10:37 AM METAL [facility]TER TYPE AND SCREEN, STAT 09/10/2018 AUTOMATED 2:46 AM [facility]AL [facility]TER PT/APTT Routine 09/10/2018 2:46 AM [facility]AL [facility]TER CBC W/PLT COUNT & AUTO STAT 09/09/2018 DIFFERENTIAL 11:57 PM [facility]AL [facility]TER HEPATITIS B SURFACE Routine 09/09/2018 ANTIGEN 11:57 PM [facility]AL [facility]TER CBC W/PLT COUNT & AUTO STAT 09/09/2018 DIFFERENTIAL 11:57 PM [facility]TER MAGNESIUM STAT 09/09/2018 11:57 PM [facility]TER HEPATIC FUNCTION PANEL STAT 09/09/2018 11:57 PM [facility]TER BASIC METABOLIC PANEL (7) STAT 09/09/2018 11:57 PM [facility]TER POCT-GLUCOSE METER Routine 09/09/2018 11:12 PM [facility]TER VASCULAR DIAGRAM -SCAN 09/05/2018 4:40 PM [facility]TER VASCULAR DIAGRAM -SCAN 08/19/2018 9:10 AM [facility]TER RHYTHM STRIP - SCAN 08/19/2018 9:10 AM [facility]TER CARDIAC CATH REPORT - 08/19/2018 SCAN 9:10 AM METAL [facility]TER POCT-GLUCOSE METER Routine 07/27/2018 12:42 PM [facility]AL S[facility]TER POCT-GLUCOSE METER Routine 07/27/2018 9:08 AM METAL S[facility]TER POCT-GLUCOSE METER Routine 07/26/2018 9:29 PM [facility]AL S[facility]TER POCT-GLUCOSE METER Routine 07/26/2018 5:55 PM [facility]AL S[facility]TER POCT-GLUCOSE METER Routine 07/26/2018 12:10 PM [facility]TER HEMODIALYSIS INPATIENT Routine 07/26/2018 11:52 AM [facility]AL S[facility]TER BASIC METABOLIC PANEL (7) Routine 07/26/2018 8:19 AM METAL S[facility]TER POCT-GLUCOSE METER Routine 07/25/2018 9:49 PM METAL S[facility]TER POCT-GLUCOSE METER Routine 07/25/2018 6:02 PM METAL [facility]TER POCT-GLUCOSE METER Routine 07/25/2018 1:37 PM [facility]AL [facility]TER TISSUE EXAM AP Routine 07/25/2018 1:05 PM [facility]AL [facility]TER AMPUTATION,TOE 07/25/2018 Gangrene of toe (HCC) 1:01 PM [facility]TER POCT-GLUCOSE METER Routine 07/25/2018 8:06 AM METAL S[facility]TER POCT-GLUCOSE METER Routine 07/24/2018 11:08 PM [facility]TER HEMODIALYSIS INPATIENT Routine 07/24/2018 7:50 PM [facility]TER PHOSPHORUS Routine 07/24/2018 4:17 PM METAL S[facility]TER POCT-GLUCOSE METER Routine 07/24/2018 12:33 PM METAL S[facility]TER POCT-GLUCOSE METER Routine 07/24/2018 7:31 AM METAL S[facility]TER CBC W/PLT COUNT & AUTO Routine 07/24/2018 DIFFERENTIAL 3:24 AM [facility]AL [facility]TER CBC W/PLT COUNT & AUTO Routine 07/24/2018 DIFFERENTIAL 3:24 AM [facility]AL [facility]TER BASIC METABOLIC PANEL (7) Routine 07/24/2018 3:24 AM [facility]AL [facility]TER PLATELET AGGREGATION: AP Routine 07/24/2018 FUNCTION SCREEN 3:24 AM [facility]AL [facility]TER POCT-GLUCOSE METER Routine 07/23/2018 9:20 PM [facility]TER POCT-ACT Routine 07/23/2018 7:09 PM [facility]TER POCT-GLUCOSE METER Routine 07/23/2018 6:32 PM [facility]TER POCT-ACT Routine 07/23/2018 5:47 PM [facility]AL [facility]TER POCT-ACT Routine 07/23/2018 4:42 PM [facility]TER POCT-ACT Routine 07/23/2018 2:38 PM METAL S[facility]TER POCT-GLUCOSE METER Routine 07/23/2018 1:25 PM [facility]TER POCT-ACT Routine 07/23/2018 10:13 AM [facility]TER PERIPHERAL ANGIOS / 07/23/2018 Peripheral arterial AORTOGRAM 9:15 AM [facility]TER disease (HCC) Case Notes (2) CASE 1830 POCT-GLUCOSE METER Routine 07/23/2018 6:42 AM METAL S[facility]TER POCT-GLUCOSE METER Routine 07/22/2018 9:21 PM [facility]TER HEMODIALYSIS INPATIENT Routine 07/22/2018 8:37 PM [facility]AL [facility]TER CBC W/PLT COUNT & AUTO Routine 07/22/2018 DIFFERENTIAL 4:08 PM [facility]AL [facility]TER PHOSPHORUS Routine 07/22/2018 4:08 PM METAL S[facility]TER BASIC METABOLIC PANEL (7) Routine 07/22/2018 4:08 PM METAL S[facility]TER CBC W/PLT COUNT & AUTO Routine 07/22/2018 DIFFERENTIAL 4:08 PM [facility] S[facility]TER POCT-GLUCOSE METER Routine 07/22/2018 11:33 AM METAL S[facility]TER POCT-GLUCOSE METER Routine 07/21/2018 9:06 PM METAL S[facility]TER POCT-GLUCOSE METER Routine 07/21/2018 4:10 PM [facility]AL [facility]TER C. DIFFICILE GDH TOXIN Routine 07/21/2018 2:11 PM METAL S[facility]TER POCT-GLUCOSE METER Routine 07/21/2018 11:28 AM METAL S[facility]TER POCT-GLUCOSE METER Routine 07/21/2018 7:46 AM METAL S[facility]TER POCT-GLUCOSE METER Routine 07/20/2018 9:21 PM [facility]TER HEMODIALYSIS INPATIENT Routine 07/20/2018 7:18 PM METAL S[facility]TER POCT-GLUCOSE METER Routine 07/20/2018 4:42 PM [facility]AL S[facility]TER HEPATITIS B SURFACE Routine 07/20/2018 ANTIGEN 2:58 PM [facility]TER PHOSPHORUS Routine 07/20/2018 2:58 PM METAL SORTER POCT-GLUCOSE METER Routine 07/20/2018 11:33 AM METAL SORTER POCT-GLUCOSE METER Routine 07/20/2018 7:53 AM METAL SORTER CBC W/PLT COUNT & AUTO Routine 07/20/2018 DIFFERENTIAL 6:02 AM METAL SORTER BASIC METABOLIC PANEL (7) Routine 07/20/2018 6:02 AM METAL [facility]TER CBC W/PLT COUNT & AUTO Routine 07/20/2018 DIFFERENTIAL 6:02 AM [facility]AL S[facility]TER POCT-GLUCOSE METER Routine 07/19/2018 8:27 PM METAL S[facility]TER CBC W/PLT COUNT & AUTO STAT 05/18/2018 DIFFERENTIAL 11:32 AM CDT BASIC METABOLIC PANEL (7) STAT 05/18/2018 11:32 AM CDT CBC W/PLT COUNT & AUTO STAT 05/18/2018 DIFFERENTIAL 11:32 AM CDT PT/APTT STAT 05/18/2018 11:32 AM CDT after 12/22/2017 Results * RHYTHM STRIP - SCAN (09/20/2018 10:00 AM [facility]AL [facility]TER) Only the most recent of 2 results within the time period is included. Narrative Performed At * POC-Glucose meter (09/17/2018 2:43 PM METAL S[facility]TER) Only the most recent of 57 results within the time period is included. POC-Glucose Meter 192 (H)Comment: TESTED AT 70 - 110 mg/dL [facility] [address] [place] [id number] Specimen Blood Performing Organization Address City/State/Zipcode Phone Number [address] [phone] [facility] * HEMODIALYSIS INPATIENT (09/17/2018 1:30 PM [facility]TER) Narrative Performed At Alyson Stoddard RN 09/17/20181:54 [...] count + automated diff (09/17/2018 5:09 AM [facility]AL S[facility]TER) Only the most recent of 10 results within the time period is included. WBC 5.9 3.5 - 10.5 K/L [facility] RBC 3.20 (L) 3.93 - 5.22 M/L [facility] Hemoglobin 8.3 (L) 11.2 - 15.7 GM/DL [facility] Hematocrit 29.5 (L) 34.1 - 44.9 % [facility] MCV 92.2 79.4 - 94.[address] [facility] MCH 25.9 25.6 - 32.[address] [facility] MCHC 28.1 (L) 32.2 - 35.5 GM/DL [facility] RDW 15.4 (H) 11.7 - 14.4 % [facility] Platelets 247 150 - 450 K/CU MM [facility] MPV 10.7 9.4 - 12.[address] [facility] nRBC 0 0 - 0 /[address] [facility] % Neutros 68 % [facility] % Lymphs 19 % [facility] % Monos 10 % [facility] % Eos 2 % [facility] % Baso 0 % [facility] # Neutros 4.01 1.56 - 6.13 K/L [facility] # Lymphs 1.10 (L) 1.18 - 3.74 K/L [facility] # Monos 0.61 (H) 0.24 - 0.36 K/L [facility] # Eos 0.13 0.04 - 0.36 K/L [facility] # Baso 0.01 0.01 - 0.08 K/L [facility] Immature 0 0 - 1 % [facility] Granulocytes-Relative [facility] Specimen Blood Performing Organization Address City/State/Zipcode Phone Number [facility] [address] [place], [place] [phone] [facility] * Basic Metabolic Panel (09/17/2018 5:09 AM METAL S[facility]TER) Only the most recent of 10 results within the time period is included. Sodium 136 136 - 145 meq/L [facility] Potassium 4.3 3.5 - 5.1 meq/L [facility] Chloride 99 98 - 107 meq/L [facility] CO2 29 22 - 29 meq/L [facility] BUN 38 (H) 7 - 21 mg/dL [facility] Creatinine 7.60 (H) 0.57 - 1.25 mg/dL [facility] Glucose 124 (H) 70 - 105 mg/dL [facility] Calcium 10.2 8.4 - 10.2 mg/dL [facility] EGFR 6Comment: ESTIMATED GFR IS NOT mL/min/1.[address] [facility] ACCURATE CREATININE [facility] CLEARANCE IN PREDICTING GLOMERULAR FILTRATION RATE. ESTIMATED GFR IS NOT APPLICABLE FOR DIALYSIS PATIENTS. Specimen Blood Performing Organization Address City/[facility]/Zipcode Phone Number [facility] [address] [place] [address] [facility] * Blood Culture - Routine (Left Venipuncture) (09/14/2018 6:43 AM [facility]AL [facility]TER) Only the most recent of 2 results within the time period is included. Result No growth in [address] [facility] Specimen Blood Performing Organization Address City/State/Zipcode Phone Number [facility] [address] [place] [address] [facility] * HEMODIALYSIS INPATIENT (09/12/2018 1:00 PM [facility]AL [facility]TER) Narrative Performed At Alyson Stoddard RN 09/12/20181:55 [...] SERVICE REPORT - SCAN (09/11/2018 6:01 PM [facility]AL [facility]TER) Narrative Performed At * PT/aPTT (09/11/2018 4:56 AM METAL [facility]TER) Only the most recent of 3 results within the time period is included. Protime 14.3 11.7 - 14.[address] [facility] INR 1.1 <=5.9 [facility] PTT 39.3 (H) 22.5 - 36.[address] [facility] Specimen Blood Narrative Performed At RECOMMENDED COUMADIN/WARFARIN INR THERAPY RANGES [facility] STANDARD DOSE: 2.0 - 3.0 Includes: PROPHYLAXIS for venous thrombosis, [facility] systemic embolization; TREATMENT for venous thrombosis and/or pulmonary embolus. HIGH RISK: Target INR is 2.5-3.5 for patients with mechanical heart valves. Performing Organization Address City/State/Zipcode Phone Number [facility] [address] [place] [address] [facility] * Tissue Exam (09/10/2018 1:58 PM [facility]TER) Only the most recent of 2 results within the time period is included. Case Report Surgical Pathology [facility] Report [facility] Case: [id number] Authorizing Provider:Goyo Haji, Collected: 09/10/2018 1358 Ordering Location: [facility] PERIOPERATIVE Received: 09/10/2018 1506 SERVICES Pathologist: Rajesh Lund MD Specimen:Foot, Left, LEFT FOREFOOT DIAGNOSIS FOOT, LEFT FOREFOOT, [facility] AMPUTATION [facility] - GANGRENOUS NECROSIS - DEFINITIVE ACUTE OSTEOMYELITIS NOT IDENTIFIED - FAT NECROSIS IN BONE MARROW UNDERLYING ULCER - SKIN, SOFT TISSUE AND BONE MARGINS VIABLE Signing Pathologist Direct Phone Line: [phone] CPT Code(s) 69367, [address] [facility] CLINICAL HISTORY Gangrene [facility] SPECIMEN SOURCE Left forefoot [facility] GROSS DESCRIPTION The specimen is received in a [facility] formalin-filled container and [facility] labeled with the patient's information and labeled [...] 5th digit respectively. CG/pl MICROSCOPIC DESCRIPTION Performed. [facility] Specimen Tissue Performing Organization Address City/[facility] Phone Number [facility] [address] [place] [address] [facility] * Potassium-Stat Lab (09/10/2018 12:59 PM METAL SORTER) Potassium 3.7 3.6 - 5.5 meq/L [facility] Specimen Blood, Arterial Performing Organization Address City/[facility] Phone Number [facility] [address] [place] [address] [facility] * HEMODIALYSIS INPATIENT (09/10/2018 12:17 PM [facility]TER) Narrative Performed At Jimbo Pardo RN 09/10/2018 [...] % sat. (without ferritin) (09/10/2018 10:37 AM [facility]AL [facility]TER) Iron 20.0 (L) 40.0 - 160.0 ug/dL [facility] TIBC 150 (L) 250 - 450 ug/dL [facility] Iron % Saturation 13 (L) 20 - 55 % [facility] Specimen Blood Performing Organization Address City/State/Zipcode Phone Number [facility] [address] [place] [address] [facility] * Phosphorus (09/10/2018 10:37 AM METAL [facility]TER) Only the most recent of 4 results within the time period is included. Phosphorus 2.0 (L) 2.3 - 4.7 mg/dL [facility] Specimen Blood Performing Organization Address City/[facility]/Zipcode Phone Number [address] * Type and screen, automated (09/10/2018 2:46 AM METAL SORTER) ABO/RH AUTOMATED (BEAKER) B POSITIVE [facility] Ab Scrn NEGATIVE [facility] Specimen Blood Performing Organization Address City/[facility] Phone Number [address] * Hepatitis B surface antigen (09/09/2018 11:57 PM METAL SORTER) Only the most recent of 2 results within the time period is included. hepatitis B Surface Ag NON-REACTIVE Nonreactive [facility] Specimen Blood Performing Organization Address City/[facility] Phone Number [address] * Magnesium (09/09/2018 11:57 PM METAL SORTER) Magnesium 1.6 1.6 - 2.6 mg/dL [facility] Specimen Blood Performing Organization Address [facility] Phone Number [address] * Hepatic function panel (09/09/2018 11:57 PM METAL SORTER) Protein, Total 7.0 6.0 - 8.3 gm/dL [facility] Albumin 3.1 (L) 3.5 - 5.0 g/dL [facility] Total Bilirubin 0.3 0.2 - 1.2 mg/dL [facility] Bilirubin, Direct 0.1 0.1 - 0.5 mg/dL [facility] Alkaline Phosphatase 64 40 - 150 U/L [facility] AST 7 5 - 34 U/L [facility] ALT <6 (L) 6 - 55 U/L [facility] Specimen Blood Performing Organization Address City/State/Zipcode Phone Number [facility] [address] [place] [address] MEDICAL [facility]ENTER * VASCULAR DIAGRAM -SCAN (09/05/2018 4:40 PM METAL SORTER) Only the most recent of 2 results within the time period is included. Narrative Performed At * CARDIAC CATH REPORT - SCAN (08/19/2018 9:10 AM METAL S[facility]TER) Narrative Performed At * HEMODIALYSIS INPATIENT (07/26/2018 11:52 AM METAL S[facility]TER) Narrative Performed At Harjinder Dan RN 07/26/2018 [...] distress. * HEMODIALYSIS INPATIENT (07/24/2018 7:50 PM [facility]AL S[facility]TER) Narrative Performed At Alyson Stoddard RN 07/24/20188:39 [...] Platelet Aggregation: Function Screen (07/24/2018 3:24 AM METAL SORTER) Weak ADP 37 (L) 60 - 91 % [facility] Plt. Function Screen 0-39% indicates marked [facility] Interpretation platelet dysfunction [facility] Pathologist: Soledad Vilchis MD (electronic [facility] signature) [facility] Platelets 235 150 - 430 K/CU MM [facility] Specimen Blood Narrative Performed At Platelet Function Screen results may be falsely low with platelet counts [facility] <100,000/cu mm. [facility] Performing Organization Address City/[facility]/Zipcode [place] [address] [facility] * POC ACTIVATED CLOTTING TIME (07/23/2018 7:09 PM METAL SORTER) Only the most recent of 5 results within the time period is included. Activated Clotting Time 136Comment: TESTED AT [facility] sec [address] Specimen Blood Performing Organization Address City/[facility]/Zipcode [place] [address] [facility] * HEMODIALYSIS INPATIENT (07/22/2018 8:37 PM METAL SORTER) Narrative Performed At Romario Wolff RN 07/22/20188:40 [...] Clostridium difficile GDH Toxin (07/21/2018 2:11 PM METAL SORTER) C. Difficle Toxin Negative Negative [facility] C. Difficile GDH Antigen NegativeComment: No indication Negative [facility] of Clostridium difficile [facility] infection and no colonization. Discontinue enteric isolation and therapy. Specimen Stool Narrative Performed At Testing performed by [employer] Rapid Cassette Assay.For GDH, published [facility] sensitivity of the assay is 98.7% compared to cytotoxicity testing.For Toxin [facility] AB, published sensitivity is 87.8% and specificity 99.4% compared to cytotoxicity testing. Verification of kit performance was done by the [facility] Microbiology Lab prior to clinical use. Performing Organization Address City/State/Zipcode Phone Number [facility] [address] [place] [address] [facility]ENTER * HEMODIALYSIS INPATIENT (07/20/2018 7:18 PM [facility]AL SORTER) Narrative Performed At Harjinder Dan RN 07/20/20187:20 [...] tolerated well. Pt awake and alert. after 12/22/2017 Insurance Payer Benefit Subscriber ID Type Phone Address Plan / Group [facility] MEDIC[facility] ADV Advance Directives For more information, please contact: [address] [address] Date Inactivated Comments Code Status [...]
[2018-12-23] MEDS ORDERED: SODIUM CHLORIDE 0.9% 1000ML 1,000 ML IV STA (18:34)
[2018-12-23 19:22] LABS: BASOPHILS % 0.3 % (0.0-1.0); EOSINOPHILS % 0.4 % (0.0-6.0); HEMATOCRIT 41.7 % (34.2-44.1); HEMOGLOBIN 12.6 g/dL (12.0-16.0); LYMPHOCYTES # (AUTO) 1.8 (1.0-3.2); LYMPHOCYTES % 17.3 % (18.0-39.1); MEAN CORPUSCULAR HEMOGLOBIN 27.8 pg (28-32); MEAN CORPUSCULAR HGB CONC 30.2 g/dL (31-35); MEAN CORPUSCULAR VOLUME 91.9 fL (81-99); MONOCYTES # (AUTO) 0.8 (0.2-0.8); MONOCYTES % 7.9 % (4.4-11.3); NEUTROPHILS # (AUTO) 7.9 (2.1-6.9); NEUTROPHILS % 73.7 % (38.7-80.0); PLATELET COUNT 185 x10e3/uL (140-360); RED BLOOD COUNT 4.54 x10e6/uL (3.6-5.1); RED CELL DISTRIBUTION WIDTH 17.1 % (11.7-14.4)
[2018-12-23 19:42] LABS: ALBUMIN 3.4 g/dL (3.5-5.0); ALBUMIN/GLOBULIN RATIO 0.7 (0.8-2.0); ANION GAP 18.3 mmol/L (8-16); CALCIUM 9.5 mg/dL (8.4-10.2); CREATININE, SERUM 7.9 mg/dL (0.57-1.11); POTASSIUM 4.3 mmol/L (3.5-5.1)
--- NOTE | 2018-12-23 19:54 | Diagnostic Imaging Report ---
ANKLE 3+ VIEWS LEFT - 3 views HISTORY: Swelling COMPARISON: Left foot radiographs dated 11/06/2018 FINDINGS: Bones: 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 Focal cortical erosion of the anterior plantar calcaneus, annotated on the lateral image, suspicious for osteomyelitis. Plantar calcaneal spur. The alignment is normal. Joints: The joint spaces are well-maintained. Soft tissues: Soft tissue swelling around the hindfoot and lateral aspect of the left leg. Globular mineralization along the medial aspect of the distal tibia may represent HADD or sequela from prior trauma. IMPRESSION: Focal cortical erosion in the anterior plantar surface of the calcaneus suspicious for osteomyelitis. Signed by: Baljeet Esqueda MD on 12/23/2018 7:51 PM
[2018-12-23] MEDS ORDERED: ONDANSETRON HCL INJ 2MG/ML 2ML 2 MG/ML VIAL IV PRN (21:00)
[2018-12-23] MEDS ORDERED: VANCOMYCIN 1GM/NS 250 ML 250 ML IV ONE (21:00)
[2018-12-23] MEDS ORDERED: DEXTROSE 50% SYRINGE 50 ML IV PRN (21:00)
[2018-12-23] MEDS ORDERED: PIPERACILLIN/TAZO 2.25 GM 50 ML IV SCH (21:00)
[2018-12-23] MEDS ORDERED: MORPHINE SULFATE 2 MG/ML SYR 1ML IV PRN (21:00)
[2018-12-23] MEDS: MEROPENEM 500MG/ NS 50ML 50 ML IV SCH (21:00)
[2018-12-23] MEDS ORDERED: MEROPENEM 500MG 500 MG in SODIUM CHLORIDE 0.9% 50ML 50 ML IV SCH (21:00)
[2018-12-23 21:28] LABS: CREATINE KINASE MB 4.6 ng/mL (0-5.0)
--- OUTSIDE RECORDS SUMMARY | 2018-12-23 22:11 | XMS REPORT | Clinical Summary ---
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 Active [...] 0 capsule daily . 09/09/2018 Discontinued omega 7-knc-bdq-fish oil Take 6 0 (FISH OIL) 1,000 [...] EVERY DAY. 09/09/[address]-shark Place 0 ohz-jmko-anr rectally as (HEMORRHOIDAL) Crea needed. 09/09/2018 Discontinued [...] 09/10/2018 Surgery Juan J Ocasio MD 09/09/2018 [facility] General Internal Medicine - Encounter 09/17/2018 09/09/2018 Travel Goyo Haji MD AMPUTATION,TOE 07/25/2018 Surgery Suresh Roberts MD 07/25/2018 Anesthesia Event Jonathan Wood MD PERIPHERAL ANGIOS / AORTOGRAM 07/23/2018 Surgery 07/20/2018 Travel Jr Lala MD [facility], Fely Acevedo MD 07/19/2018 [facility] Cardiology - Encounter 07/27/2018 Bakari Cuenca [...] Taken Vital Sign Reading 09/17/2018 3:17 PM GIVING OFFICER Blood Pressure 136/62 09/17/2018 3:17 PM GIVING OFFICER Pulse 76 09/17/2018 3:17 PM GIVING OFFICER Temperature 35.8 C (96.4 F) 09/17/2018 3:17 PM GIVING OFFICER Respiratory Rate 20 09/17/2018 3:17 PM GIVING OFFICER Oxygen Saturation 98% - Inhaled Oxygen - Concentration 09/17/2018 8:45 AM GIVING OFFICER Weight 104.7 kg (230 lb 13.2 oz) 09/09/2018 9:34 PM GIVING OFFICER Height 167.6 cm (5' 6") 09/17/2018 8:45 AM GIVING OFFICER Body Mass Index 37.26 Plan of Treatment Not on file Procedures Comments Procedure Name Priority Date/Time Associated Diagnosis RHYTHM STRIP - SCAN 09/20/2018 10:00 AM GIVING OFFICER POCT-GLUCOSE METER Routine 09/17/2018 2:43 PM GIVING OFFICER HEMODIALYSIS INPATIENT Routine 09/17/2018 1:30 PM GIVING OFFICER POCT-GLUCOSE METER Routine 09/17/2018 12:50 PM GIVING OFFICER POCT-GLUCOSE METER Routine 09/17/2018 8:19 AM GIVING OFFICER CBC W/PLT COUNT & AUTO Routine 09/17/2018 DIFFERENTIAL 5:09 AM GIVING OFFICER BASIC METABOLIC PANEL (7) Routine 09/17/2018 5:09 AM GIVING OFFICER CBC W/PLT COUNT & AUTO Routine 09/17/2018 DIFFERENTIAL 5:09 AM GIVING OFFICER POCT-GLUCOSE METER Routine 09/16/2018 9:36 PM GIVING OFFICER POCT-GLUCOSE METER Routine 09/16/2018 5:57 PM GIVING OFFICER POCT-GLUCOSE METER Routine 09/16/2018 12:15 PM GIVING OFFICER POCT-GLUCOSE METER Routine 09/16/2018 8:07 AM GIVING OFFICER POCT-GLUCOSE METER Routine 09/15/2018 9:27 PM GIVING OFFICER POCT-GLUCOSE METER Routine 09/15/2018 4:30 PM GIVING OFFICER POCT-GLUCOSE METER Routine 09/15/2018 11:42 AM GIVING OFFICER POCT-GLUCOSE METER Routine 09/15/2018 9:31 AM GIVING OFFICER POCT-GLUCOSE METER Routine 09/14/2018 9:22 PM GIVING OFFICER HEMODIALYSIS INPATIENT Routine 09/14/2018 6:47 PM GIVING OFFICER BASIC METABOLIC PANEL (7) Routine 09/14/2018 4:09 PM GIVING OFFICER POCT-GLUCOSE METER Routine 09/14/2018 12:50 PM GIVING OFFICER POCT-GLUCOSE METER Routine 09/14/2018 8:56 AM GIVING OFFICER BLOOD CULTURE STAT 09/14/2018 6:43 AM GIVING OFFICER CBC W/PLT COUNT & AUTO Routine 09/14/2018 DIFFERENTIAL 6:42 AM GIVING OFFICER CBC W/PLT COUNT & AUTO Routine 09/14/2018 DIFFERENTIAL 6:42 AM GIVING OFFICER POCT-GLUCOSE METER Routine 09/13/2018 8:57 PM GIVING OFFICER BLOOD CULTURE STAT 09/13/2018 8:40 PM GIVING OFFICER POCT-GLUCOSE METER Routine 09/13/2018 6:55 PM GIVING OFFICER POCT-GLUCOSE METER Routine 09/13/2018 12:54 PM GIVING OFFICER POCT-GLUCOSE METER Routine 09/13/2018 8:10 AM GIVING OFFICER CBC W/PLT COUNT & AUTO Routine 09/13/2018 DIFFERENTIAL 4:59 AM GIVING OFFICER CBC W/PLT COUNT & AUTO Routine 09/13/2018 DIFFERENTIAL 4:59 AM GIVING OFFICER POCT-GLUCOSE METER Routine 09/12/2018 9:36 PM GIVING OFFICER POCT-GLUCOSE METER Routine 09/12/2018 5:46 PM GIVING OFFICER POCT-GLUCOSE METER Routine 09/12/2018 4:07 PM GIVING OFFICER HEMODIALYSIS INPATIENT Routine 09/12/2018 1:00 PM GIVING OFFICER POCT-GLUCOSE METER Routine 09/12/2018 7:20 AM GIVING OFFICER CBC W/PLT COUNT & AUTO Routine 09/12/2018 DIFFERENTIAL 4:51 AM GIVING OFFICER BASIC METABOLIC PANEL (7) Routine 09/12/2018 4:51 AM GIVING OFFICER CBC W/PLT COUNT & AUTO Routine 09/12/2018 DIFFERENTIAL 4:51 AM GIVING OFFICER POCT-GLUCOSE METER Routine 09/11/2018 9:08 PM GIVING OFFICER POCT-GLUCOSE METER Routine 09/11/2018 6:18 PM GIVING OFFICER TRANSFUSION SERVICE 09/11/2018 REPORT - SCAN 6:01 PM GIVING OFFICER POCT-GLUCOSE METER Routine 09/11/2018 1:00 PM GIVING OFFICER POCT-GLUCOSE METER Routine 09/11/2018 9:13 AM GIVING OFFICER CBC W/PLT COUNT & AUTO Routine 09/11/2018 DIFFERENTIAL 4:56 AM GIVING OFFICER BASIC METABOLIC PANEL (7) Routine 09/11/2018 4:56 AM GIVING OFFICER CBC W/PLT COUNT & AUTO Routine 09/11/2018 DIFFERENTIAL 4:56 AM GIVING OFFICER PT/APTT Routine 09/11/2018 4:56 AM GIVING OFFICER POCT-GLUCOSE METER Routine 09/10/2018 9:57 PM GIVING OFFICER POCT-GLUCOSE METER Routine 09/10/2018 7:00 PM GIVING OFFICER POCT-GLUCOSE METER Routine 09/10/2018 5:10 PM GIVING OFFICER TISSUE EXAM AP Routine 09/10/2018 1:58 PM GIVING OFFICER POTASSIUM-STAT LAB STAT 09/10/2018 12:59 PM GIVING OFFICER AMPUTATION,FOOT 09/10/2018 Gangrene (HCC) 12:20 PM GIVING OFFICER Case Notes 2 HRS PER CRISTIAN ENCISO BY CINDY TO POST @ 1/09/09 @ 1:54 HEMODIALYSIS INPATIENT Routine 09/10/2018 12:17 PM GIVING OFFICER IRON, TIBC, % SAT. Routine 09/10/2018 (WITHOUT FERRITIN) 10:37 AM GIVING OFFICER PHOSPHORUS Routine 09/10/2018 10:37 AM GIVING OFFICER TYPE AND SCREEN, STAT 09/10/2018 AUTOMATED 2:46 AM GIVING OFFICER PT/APTT Routine 09/10/2018 2:46 AM GIVING OFFICER CBC W/PLT COUNT & AUTO STAT 09/09/2018 DIFFERENTIAL 11:57 PM GIVING OFFICER HEPATITIS B SURFACE Routine 09/09/2018 ANTIGEN 11:57 PM GIVING OFFICER CBC W/PLT COUNT & AUTO STAT 09/09/2018 DIFFERENTIAL 11:57 PM GIVING OFFICER MAGNESIUM STAT 09/09/2018 11:57 PM GIVING OFFICER HEPATIC FUNCTION PANEL STAT 09/09/2018 11:57 PM GIVING OFFICER BASIC METABOLIC PANEL (7) STAT 09/09/2018 11:57 PM GIVING OFFICER POCT-GLUCOSE METER Routine 09/09/2018 11:12 PM GIVING OFFICER VASCULAR DIAGRAM -SCAN 09/05/2018 4:40 PM GIVING OFFICER VASCULAR DIAGRAM -SCAN 08/19/2018 9:10 AM GIVING OFFICER RHYTHM STRIP - SCAN 08/19/2018 9:10 AM GIVING OFFICER CARDIAC CATH REPORT - 08/19/2018 SCAN 9:10 AM GIVING OFFICER POCT-GLUCOSE METER Routine 07/27/2018 12:42 PM GIVING OFFICER POCT-GLUCOSE METER Routine 07/27/2018 9:08 AM GIVING OFFICER POCT-GLUCOSE METER Routine 07/26/2018 9:29 PM GIVING OFFICER POCT-GLUCOSE METER Routine 07/26/2018 5:55 PM GIVING OFFICER POCT-GLUCOSE METER Routine 07/26/2018 12:10 PM GIVING OFFICER HEMODIALYSIS INPATIENT Routine 07/26/2018 11:52 AM GIVING OFFICER BASIC METABOLIC PANEL (7) Routine 07/26/2018 8:19 AM GIVING OFFICER POCT-GLUCOSE METER Routine 07/25/2018 9:49 PM GIVING OFFICER POCT-GLUCOSE METER Routine 07/25/2018 6:02 PM GIVING OFFICER POCT-GLUCOSE METER Routine 07/25/2018 1:37 PM GIVING OFFICER TISSUE EXAM AP Routine 07/25/2018 1:05 PM GIVING OFFICER AMPUTATION,TOE 07/25/2018 Gangrene of toe (HCC) 1:01 PM GIVING OFFICER POCT-GLUCOSE METER Routine 07/25/2018 8:06 AM GIVING OFFICER POCT-GLUCOSE METER Routine 07/24/2018 11:08 PM GIVING OFFICER HEMODIALYSIS INPATIENT Routine 07/24/2018 7:50 PM GIVING OFFICER PHOSPHORUS Routine 07/24/2018 4:17 PM GIVING OFFICER POCT-GLUCOSE METER Routine 07/24/2018 12:33 PM GIVING OFFICER POCT-GLUCOSE METER Routine 07/24/2018 7:31 AM GIVING OFFICER CBC W/PLT COUNT & AUTO Routine 07/24/2018 DIFFERENTIAL 3:24 AM GIVING OFFICER CBC W/PLT COUNT & AUTO Routine 07/24/2018 DIFFERENTIAL 3:24 AM GIVING OFFICER BASIC METABOLIC PANEL (7) Routine 07/24/2018 3:24 AM GIVING OFFICER PLATELET AGGREGATION: AP Routine 07/24/2018 FUNCTION SCREEN 3:24 AM GIVING OFFICER POCT-GLUCOSE METER Routine 07/23/2018 9:20 PM GIVING OFFICER POCT-ACT Routine 07/23/2018 7:09 PM GIVING OFFICER POCT-GLUCOSE METER Routine 07/23/2018 6:32 PM GIVING OFFICER POCT-ACT Routine 07/23/2018 5:47 PM GIVING OFFICER POCT-ACT Routine 07/23/2018 4:42 PM GIVING OFFICER POCT-ACT Routine 07/23/2018 2:38 PM GIVING OFFICER POCT-GLUCOSE METER Routine 07/23/2018 1:25 PM GIVING OFFICER POCT-ACT Routine 07/23/2018 10:13 AM GIVING OFFICER PERIPHERAL ANGIOS / 07/23/2018 Peripheral arterial AORTOGRAM 9:15 AM GIVING OFFICER disease (HCC) Case Notes (2) CASE 1830 POCT-GLUCOSE METER Routine 07/23/2018 6:42 AM GIVING OFFICER POCT-GLUCOSE METER Routine 07/22/2018 9:21 PM GIVING OFFICER HEMODIALYSIS INPATIENT Routine 07/22/2018 8:37 PM GIVING OFFICER CBC W/PLT COUNT & AUTO Routine 07/22/2018 DIFFERENTIAL 4:08 PM GIVING OFFICER PHOSPHORUS Routine 07/22/2018 4:08 PM GIVING OFFICER BASIC METABOLIC PANEL (7) Routine 07/22/2018 4:08 PM GIVING OFFICER CBC W/PLT COUNT & AUTO Routine 07/22/2018 DIFFERENTIAL 4:08 PM GIVING OFFICER POCT-GLUCOSE METER Routine 07/22/2018 11:33 AM GIVING OFFICER POCT-GLUCOSE METER Routine 07/21/2018 9:06 PM GIVING OFFICER POCT-GLUCOSE METER Routine 07/21/2018 4:10 PM GIVING OFFICER C. DIFFICILE GDH TOXIN Routine 07/21/2018 2:11 PM GIVING OFFICER POCT-GLUCOSE METER Routine 07/21/2018 11:28 AM GIVING OFFICER POCT-GLUCOSE METER Routine 07/21/2018 7:46 AM GIVING OFFICER POCT-GLUCOSE METER Routine 07/20/2018 9:21 PM GIVING OFFICER HEMODIALYSIS INPATIENT Routine 07/20/2018 7:18 PM GIVING OFFICER POCT-GLUCOSE METER Routine 07/20/2018 4:42 PM GIVING OFFICER HEPATITIS B SURFACE Routine 07/20/2018 ANTIGEN 2:58 PM GIVING OFFICER PHOSPHORUS Routine 07/20/2018 2:58 PM GIVING OFFICER POCT-GLUCOSE METER Routine 07/20/2018 11:33 AM GIVING OFFICER POCT-GLUCOSE METER Routine 07/20/2018 7:53 AM GIVING OFFICER CBC W/PLT COUNT & AUTO Routine 07/20/2018 DIFFERENTIAL 6:02 AM GIVING OFFICER BASIC METABOLIC PANEL (7) Routine 07/20/2018 6:02 AM GIVING OFFICER CBC W/PLT COUNT & AUTO Routine 07/20/2018 DIFFERENTIAL 6:02 AM GIVING OFFICER POCT-GLUCOSE METER Routine 07/19/2018 8:27 PM GIVING OFFICER CBC W/PLT COUNT & AUTO STAT 05/18/2018 DIFFERENTIAL 11:32 AM CDT BASIC METABOLIC PANEL (7) STAT 05/18/2018 11:32 AM CDT CBC W/PLT COUNT & AUTO STAT 05/18/2018 DIFFERENTIAL 11:32 AM CDT PT/APTT STAT 05/18/2018 11:32 AM CDT after 12/22/2017 Results * RHYTHM STRIP - SCAN (09/20/2018 10:00 AM GIVING OFFICER) Only the most recent of 2 results within the time period is included. Narrative Performed At * POC-Glucose meter (09/17/2018 2:43 PM GIVING OFFICER) Only the most recent of 57 results within the time period is included. POC-Glucose Meter 192 (H)Comment: TESTED AT 70 - 110 mg/dL [facility] [address] [place] [id number] Specimen Blood Performing Organization Address City/State/Zipcode Phone Number [address] [id number] [facility] * HEMODIALYSIS INPATIENT (09/17/2018 1:30 PM GIVING OFFICER) Narrative Performed At Alyson Stoddard RN 09/17/20181:54 [...] count + automated diff (09/17/2018 5:09 AM GIVING OFFICER) Only the most recent of 10 results within the time period is included. WBC 5.9 3.5 - 10.5 K/L [facility] RBC 3.20 (L) 3.93 - 5.22 M/L [facility] Hemoglobin 8.3 (L) 11.2 - 15.7 GM/DL [facility] Hematocrit 29.5 (L) 34.1 - 44.9 % [facility] MCV 92.2 79.4 - 94.8 fL [facility] MCH 25.9 25.6 - 32.2 pg [facility] MCHC 28.1 (L) 32.2 - 35.5 GM/DL [facility] RDW 15.4 (H) 11.7 - 14.4 % [facility] Platelets 247 150 - 450 K/CU MM [facility] MPV 10.7 9.4 - 12.3 fL [facility] nRBC 0 0 - 0 /100 WBC [facility] % Neutros 68 % [facility] % Lymphs 19 % [facility] % Monos 10 % [facility] % Eos 2 % [facility] % Baso 0 % [facility] # Neutros 4.01 1.56 - 6.13 K/L [facility] # Lymphs 1.10 (L) 1.18 - 3.74 K/L [facility] # Monos 0.61 (H) 0.24 - 0.36 K/L [facility] # Eos 0.13 0.04 - 0.36 K/L [facility] # Baso 0.01 0.01 - 0.08 K/L [facility] Immature 0 0 - 1 % [facility] Granulocytes-Relative [facility] Specimen Blood Performing Organization Address City/State/Zipcode Phone Number [facility] [address] [place], [place] [id number] [facility] * Basic Metabolic Panel (09/17/2018 5:09 AM GIVING OFFICER) Only the most recent of 10 results within the time period is included. Sodium 136 136 - 145 meq/L [facility] Potassium 4.3 3.5 - 5.1 meq/L [facility] Chloride 99 98 - 107 meq/L [facility] CO2 29 22 - 29 meq/L [facility] BUN 38 (H) 7 - 21 mg/dL [facility] Creatinine 7.60 (H) 0.57 - 1.25 mg/dL [facility] Glucose 124 (H) 70 - 105 mg/dL [facility] Calcium 10.2 8.4 - 10.2 mg/dL [facility] EGFR 6Comment: ESTIMATED GFR IS NOT mL/min/1.73 sq m [facility] ACCURATE CREATININE [facility] CLEARANCE IN PREDICTING GLOMERULAR FILTRATION RATE. ESTIMATED GFR IS NOT APPLICABLE FOR DIALYSIS PATIENTS. Specimen Blood Performing Organization Address City/[facility]/Zipcode Phone Number [facility] [address] [place] [address] [facility] * Blood Culture - Routine (Left Venipuncture) (09/14/2018 6:43 AM GIVING OFFICER) Only the most recent of 2 results within the time period is included. Result No growth in 5 days [facility] Specimen Blood Performing Organization Address City/State/Zipcode Phone Number [facility] [address] [place] [address] [facility] * HEMODIALYSIS INPATIENT (09/12/2018 1:00 PM GIVING OFFICER) Narrative Performed At Alyson Stoddard RN 09/12/20181:55 [...] SERVICE REPORT - SCAN (09/11/2018 6:01 PM GIVING OFFICER) Narrative Performed At * PT/aPTT (09/11/2018 4:56 AM GIVING OFFICER) Only the most recent of 3 results within the time period is included. Protime 14.3 11.7 - 14.7 seconds [facility] INR 1.1 <=5.9 [facility] PTT 39.3 (H) 22.5 - 36.0 seconds [facility] Specimen Blood Narrative Performed At RECOMMENDED COUMADIN/WARFARIN INR THERAPY RANGES [facility] STANDARD DOSE: 2.0 - 3.0 Includes: PROPHYLAXIS for venous thrombosis, [facility] systemic embolization; TREATMENT for venous thrombosis and/or pulmonary embolus. HIGH RISK: Target INR is 2.5-3.5 for patients with mechanical heart valves. Performing Organization Address City/State/Zipcode Phone Number [facility] [address] [place] [address] [facility] * Tissue Exam (09/10/2018 1:58 PM GIVING OFFICER) Only the most recent of 2 results within the time period is included. Case Report Surgical Pathology [facility] Report [facility] Case: [id number] Authorizing Provider:Goyo Haji, Collected: 09/10/2018 1358 Ordering Location: [facility] PERIOPERATIVE Received: 09/10/2018 1506 SERVICES Pathologist: Rajesh Lund MD Specimen:Foot, Left, LEFT FOREFOOT DIAGNOSIS FOOT, LEFT FOREFOOT, [facility] AMPUTATION [facility] - GANGRENOUS NECROSIS - DEFINITIVE ACUTE OSTEOMYELITIS NOT IDENTIFIED - FAT NECROSIS IN BONE MARROW UNDERLYING ULCER - SKIN, SOFT TISSUE AND BONE MARGINS VIABLE Signing Pathologist Direct Phone Line: [phone] CPT Code(s) 69964, 87588 [facility] CLINICAL HISTORY Gangrene [facility] SPECIMEN SOURCE Left forefoot [facility] GROSS DESCRIPTION The specimen is received in a [facility] formalin-filled container and [facility] labeled with the patient's [...] 5th digit respectively. CG/pl MICROSCOPIC DESCRIPTION Performed. [facility] Specimen Tissue Performing Organization Address City/[facility] Phone Number [facility] [address] [place] [address] [facility] * Potassium-Stat Lab (09/10/2018 12:59 PM GIVING OFFICER) Potassium 3.7 3.6 - 5.5 meq/L [facility] Specimen Blood, Arterial Performing Organization Address City/[facility] Phone Number [facility] [address] [place] [address] [facility] * HEMODIALYSIS INPATIENT (09/10/2018 12:17 PM GIVING OFFICER) Narrative Performed At Jimbo Pardo RN 09/10/2018 [...] % sat. (without ferritin) (09/10/2018 10:37 AM GIVING OFFICER) Iron 20.0 (L) 40.0 - 160.0 ug/dL [facility] TIBC 150 (L) 250 - 450 ug/dL [facility] Iron % Saturation 13 (L) 20 - 55 % [facility] Specimen Blood Performing Organization Address City/State/Zipcode Phone Number [facility] [address] [place] [address] [facility] * Phosphorus (09/10/2018 10:37 AM GIVING OFFICER) Only the most recent of 4 results within the time period is included. Phosphorus 2.0 (L) 2.3 - 4.7 mg/dL [facility] Specimen Blood Performing Organization Address City/[facility]/Zipcode Phone Number [address] * Type and screen, automated (09/10/2018 2:46 AM GIVING OFFICER) ABO/RH AUTOMATED (BEAKER) B POSITIVE [facility] Ab Scrn NEGATIVE [facility] Specimen Blood Performing Organization Address City/[facility] Phone Number [address] * Hepatitis B surface antigen (09/09/2018 11:57 PM GIVING OFFICER) Only the most recent of 2 results within the time period is included. hepatitis B Surface Ag NON-REACTIVE Nonreactive [facility] Specimen Blood Performing Organization Address City/[facility] Phone Number [address] * Magnesium (09/09/2018 11:57 PM GIVING OFFICER) Magnesium 1.6 1.6 - 2.6 mg/dL [facility] Specimen Blood Performing Organization Address [facility] Phone Number [address] * Hepatic function panel (09/09/2018 11:57 PM GIVING OFFICER) Protein, Total 7.0 6.0 - 8.3 gm/dL [facility] Albumin 3.1 (L) 3.5 - 5.0 g/dL [facility] Total Bilirubin 0.3 0.2 - 1.2 mg/dL [facility] Bilirubin, Direct 0.1 0.1 - 0.5 mg/dL [facility] Alkaline Phosphatase 64 40 - 150 U/L [facility] AST 7 5 - 34 U/L [facility] ALT <6 (L) 6 - 55 U/L [facility] Specimen Blood Performing Organization Address City/State/Zipcode Phone Number [facility] [address] [place] [address] MEDICAL [facility]ENTER * VASCULAR DIAGRAM -SCAN (09/05/2018 4:40 PM GIVING OFFICER) Only the most recent of 2 results within the time period is included. Narrative Performed At * CARDIAC CATH REPORT - SCAN (08/19/2018 9:10 AM GIVING OFFICER) Narrative Performed At * HEMODIALYSIS INPATIENT (07/26/2018 11:52 AM GIVING OFFICER) Narrative Performed At Harjinder Dan RN 07/26/2018 [...] distress. * HEMODIALYSIS INPATIENT (07/24/2018 7:50 PM GIVING OFFICER) Narrative Performed At Alyson Stoddard RN 07/24/20188:39 [...] Platelet Aggregation: Function Screen (07/24/2018 3:24 AM GIVING OFFICER) Weak ADP 37 (L) 60 - 91 % [facility] Plt. Function Screen 0-39% indicates marked [facility] Interpretation platelet dysfunction [facility] Pathologist: Soledad Vilchis MD (electronic [facility] signature) [facility] Platelets 235 150 - 430 K/CU MM [facility] Specimen Blood Narrative Performed At Platelet Function Screen results may be falsely low with platelet counts [facility] <100,000/cu mm. [facility] Performing Organization Address City/[facility]/[place] [address] [facility] * POC ACTIVATED CLOTTING TIME (07/23/2018 7:09 PM GIVING OFFICER) Only the most recent of 5 results within the time period is included. Activated Clotting Time 136Comment: TESTED AT [facility] sec [address] Specimen Blood Performing Organization Address City/[facility]/[place] [address] [facility] * HEMODIALYSIS INPATIENT (07/22/2018 8:37 PM GIVING OFFICER) Narrative Performed At Romario Wolff RN 07/22/20188:40 [...] Clostridium difficile GDH Toxin (07/21/2018 2:11 PM GIVING OFFICER) C. Difficle Toxin Negative Negative [facility] C. Difficile GDH Antigen NegativeComment: No indication Negative [facility] of Clostridium difficile [facility] infection and no colonization. Discontinue enteric isolation and therapy. Specimen Stool Narrative Performed At Testing performed by [employer] Rapid Cassette Assay.For GDH, published [facility] sensitivity of the assay is 98.7% compared to cytotoxicity testing.For Toxin [facility] AB, published sensitivity is 87.8% and specificity 99.4% compared to cytotoxicity testing. Verification of kit performance was done by the [facility] Microbiology Lab prior to clinical use. Performing Organization Address City/State/Zipcode Phone Number [facility] [address] [place] [address] MEDICAL [facility]ENTER * HEMODIALYSIS INPATIENT (07/20/2018 7:18 PM GIVING OFFICER) Narrative Performed At Harjinder Dan RN 07/20/20187:20 [...] ID Type Phone Address Plan / Group [facility] [employer] [facility] xxxxxxxxxxx MEDICARE ADV Advance Directives For more information, please contact: [address] [address] Date Inactivated Comments Code Status [...]
[2018-12-23] MEDS: INSULIN LISPRO 100 UNIT/1 ML 3ML VIAL SQ SCH (22:18)
[2018-12-23 22:33] VITALS: BP 139/71
[2018-12-24] VITALS (8 sets, daily range): BP systolic 125–175; BP diastolic 65–80
[2018-12-24 04:05] LABS: CREATINE KINASE MB 2.7 ng/mL (0-5.0)
[2018-12-24 06:27] LABS: BASOPHILS % 0.3 % (0.0-1.0); EOSINOPHILS # (AUTO) 0.1 (0.0-0.4); EOSINOPHILS % 1.1 % (0.0-6.0); HEMATOCRIT 37.1 % (34.2-44.1); LYMPHOCYTES # (AUTO) 1.2 (1.0-3.2); LYMPHOCYTES % 16.1 % (18.0-39.1); MEAN CORPUSCULAR HEMOGLOBIN 27.5 pg (28-32); MEAN CORPUSCULAR HGB CONC 29.6 g/dL (31-35); MEAN CORPUSCULAR VOLUME 92.8 fL (81-99); MONOCYTES # (AUTO) 0.8 (0.2-0.8); MONOCYTES % 11.4 % (4.4-11.3); NEUTROPHILS # (AUTO) 5.2 (2.1-6.9); NEUTROPHILS % 70.8 % (38.7-80.0); PLATELET COUNT 165 x10e3/uL (140-360); RED CELL DISTRIBUTION WIDTH 16.7 % (11.7-14.4)
[2018-12-24 06:53] LABS: ALBUMIN 2.7 g/dL (3.5-5.0); ALBUMIN/GLOBULIN RATIO 0.7 (0.8-2.0); ANION GAP 16.2 mmol/L (8-16); CALCIUM 8.2 mg/dL (8.4-10.2); CREATININE, SERUM 8.32 mg/dL (0.57-1.11); POTASSIUM 4.2 mmol/L (3.5-5.1)
--- NOTE | 2018-12-24 07:27 | NUR ---
PATIENT IN BED RESTING WITH EYES CLOSED, NO RESPIRATORY DISTRESS OBSERVED. LEFT FOOT NOTED WITH DRYNESS, WOUND TO THE BACK OF RIGHT STUMP. LEFT LIMB ALERT IN PLACE. BED IN LOWER POSITION, CALL LIGHT AT REACH.
[2018-12-24] MEDS: INSULIN LISPRO 100 UNIT/1 ML 3ML VIAL SQ SCH ×4 (07:30→20:25)
[2018-12-24] MEDS ORDERED: LORAZEPAM INJ 2 MG/ML VIAL IV PRN (11:00)
--- NOTE | 2018-12-24 11:10 | NUR ---
DR LEON CALLED AND MESSAGE LEFT TO [employer] REGARDING CONSULT AND PATIENT DIALYSIS TREATMENT. AWAITING CALL BACK.
[2018-12-24 11:37] LABS: CREATINE KINASE MB 2.4 ng/mL (0-5.0)
[2018-12-24] MEDS: NIFEDIPINE CR 30 MG TAB PO SCH (12:47)
[2018-12-24] MEDS: CILOSTAZOL 100 MG TAB PO SCH (12:47)
[2018-12-24] MEDS: CALCIUM ACETATE 667 MG GELCAP PO SCH ×2 (12:47→17:22)
[2018-12-24] MEDS: HEPARIN SOD (PORCINE) 5,000 UNIT/ML VIAL SC SCH ×2 (12:48→21:55)
--- NOTE | 2018-12-24 13:30 | Consultation ---
DATE OF CONSULTATION: 12/24/2018 HISTORY OF PRESENT ILLNESS: A 73-year-old female, well known to our Nephrology service, has a left upper arm AV fistula, dialysis on Sunday, , and Sunday. Renal consulted for management of underlying kidney failure. She is comfortable, sitting up, in no apparent distress. ALLERGIES: TO ATORVASTATIN AND PNEUMOCOCCAL VACCINE. CURRENT MEDICATIONS: Morphine sulfate p.r.n., nifedipine 60 mg daily, ondansetron p.r.n. She is on levothyroxine, Synthroid 100 mcg daily, Humalog insulin, meropenem 500 mg q.24 h., PipTaz 2.25 q.8 h., received one time dose of vancomycin. She is on PhosLo 667 mg p.o. t.i.d. with meals, Coreg 3.125 p.o. b.i.d. and Pletal 50 mg daily, heparin subcu and Humalog subcu insulin protocol. PAST MEDICAL HISTORY: Type 2 diabetes, diabetic kidney disease, end-stage renal disease, peripheral neuropathy, retinopathy, hypertension, hypothyroidism, anemia of chronic kidney disease, secondary hyperparathyroidism, history of congestive heart failure. CURRENT LABS: Potassium 4.2, creatinine 8.3. Hemoglobin is 11. PHYSICAL EXAMINATION: GENERAL: Awake, alert, lying supine, in no apparent distress. VITAL SIGNS: Blood pressure of 154/70, pulse is 78, afebrile. HEAD AND NECK: Cornea clear. Oral mucosa moist. Neck veins flat. No JVD. LUNGS: Bibasilar rales. HEART: A 2-3/6 ejection systolic murmur audible over left sternal border. Regular rate and rhythm. ABDOMEN: Otherwise soft, nontender. LOWER EXTREMITY: No edema. IMPRESSION AND PLAN: Fluid overload, significant azotemia, missed her dialysis. End-stage renal disease, hypertension, anemia of chronic kidney disease, second hyperparathyroidism. Continue with phosphorus binders. Plan on hemodialysis, renal diet, protein supplementation, phosphorus binders. Please see orders. MD ENID Mckoy/JONATHAN /[id number]
--- NOTE | 2018-12-24 14:15 | NUR ---
PATIENT OFF UNIT TO RADIOLOGY.
--- NOTE | 2018-12-24 15:05 | NUR ---
PATIENT BACK TO UNIT FROM RADIOLOGY. HAD A MRI OF LEFT FOOT. IN BED WITH LEFT FOOT ELEVATED ON PILLOW. CALL LIGHT AT REACH.
--- NOTE | 2018-12-24 15:07 | Diagnostic Imaging Report ---
TECHNIQUE: Magnetic resonance imaging of the LEFT foot was performed WITHOUT injected contrast. HISTORY: Evaluate for infection COMPARISON: None available. DISCUSSION: Subcutaneous edema and skin thickening of the lower extremity. 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 Mild scattered edema at the volar surfaces, however no T1 replacement. 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 Small ankle and subtalar fusion. IMPRESSION: Cellulitis of the right foot without osteomyelitis. Signed by: Dr. Anastacio Cain M.D. on 12/24/2018 3:03 PM
[2018-12-24] MEDS ORDERED: ONDANSETRON HCL 4 MG ORAL DISINTEGRATING TAB PO PRN (15:45)
--- NOTE | 2018-12-24 17:06 | NUR ---
Nutrition Screen Note RD Recommendation for Physician: -Rec changing diet to renal/ ADA diet as medically appropriate -Pt requested for Nepro BID Plan of Care: RD following, monitoring for tolerance and adequacy Nutrition reason for involvement: Diagnosis Primary Diagnose(s): ESRD, L heel ulcer PMH: Type 2 diabetes, end-stage renal disease on HD, peripheral neuropathy, retinopathy, hypertension, hypothyroidism, anemia of chronic kidney disease, secondary hyperparathyroidism, congestive heart failure Ht: 66in Wt: 199.01lb BMI: 32.1kg/m2 IBW: 130lb RD Assessment: (12/24) Chart reviewed. Labs and meds reviewed. 73yo F, who was admitted for L heel ulcer. Wound care was consulted. Visited pt in the room. Pt reported fair appetite with ~75% recorded meal intake since admission. No complains of nausea or vomiting. Pt denied any chewing or swallowing difficulty. LBM 12/23. Pt has been taking Nepro BID while at long term; pt wish to have Nepro with her meals. Unknown weight loss hx. No sign of muscle or fat loss per observation. Will continue to monitor and follow. Current Diet: ADA 1800 Malnutrition Evaluation (12/24) The patient does not meet criteria for a specified degree of malnutrition at this time. Will re-evaluate at follow-up as appropriate. Diet Education Needs Assessment: Diet education indicated, pt requested for a list of foods with high potassium and high phosphorus. Handout was given. All questions have been answered. Nutrition Care Level: low Signed: Rita Cade, MS, RD, LD
[2018-12-24] MEDS: LACTOBACILLUS ACIDOPHILUS CAPSULE PO SCH (17:22)
[2018-12-24] MEDS: CARVEDILOL 3.125 MG TAB PO SCH (17:22)
--- NOTE | 2018-12-24 17:57 | Consultation ---
DATE OF CONSULTATION: 12/24/2018 ID Consult REASON FOR CONSULTATION: Possible left heel osteomyelitis. Thank you, Dr. Sutton for asking me to see this patient, who was admitted through the emergency department. HISTORY OF PRESENT ILLNESS: The patient is a 73-year-old woman, referred for possible left heel osteomyelitis. She presented to the emergency department with increased drainage, malodor of the left heel ulcer. The patient's home health nurse noted a malodor and advised the patient to go to the emergency department. She denies fever and chills. She developed left heel ulcer while at the half-way recovering from surgery several months ago. In the emergency department, she was noted to have temperature of 98.3 degrees Fahrenheit, pulse rate 73, respiratory rate 16, blood pressure 150/56, and oxygen saturation 94% on room air. Initial laboratory studies showed blood leukocyte count of 10,640 with 73.7% neutrophils. X-ray of the left ankle showed focal cortical erosion in the anterior plantar surface of the calcaneus suspicious for osteomyelitis. PAST MEDICAL HISTORY: Diabetes mellitus type 2, hypertension, end-stage renal disease, peripheral arterial disease, chronic obstructive pulmonary disease, iatrogenic hypothyroidism, shingles, wheelchair-bound. PAST SURGICAL HISTORY: Tonsillectomy, thyroidectomy for recurrent nodules, hysterectomy, AV fistula creation, bilateral total knee arthroplasty for severe osteoarthritis and Chopart amputation of the left foot. ALLERGIES: LIPITOR AND PNEUMOCOCCAL VACCINE, WHICH CAUSED HIVES AND SHORTNESS OF BREATH. MEDICATIONS: The current antibiotic is meropenem 500 mg p.o. q.24 hours. She received vancomycin 1 g IV piggyback once. IMMUNIZATION: She received pneumococcal vaccination in the past, but developed hives and shortness of breath. FAMILY HISTORY: Significant for diabetes mellitus, hypertension, and heart disease. SOCIAL HISTORY: The patient never smoked, but reports secondhand smoke exposure from her who smoked heavily. She does not drink alcohol. REVIEW OF SYSTEMS: As per history of present illness. PHYSICAL EXAMINATION: GENERAL: No acute distress. VITAL SIGNS: T-max 97.7, pulse was 78, respiratory rate 20, blood pressure 154/70, weight 199 pounds. HEENT: Normocephalic. There is no icterus or injection of conjunctivae. There is no ear or nasal discharge. Moist oral mucosa. No pharyngeal erythema or exudate. NECK: Supple. No meningismus. LUNGS: Clear to auscultation bilaterally. HEART: Normal S1 and S2. Regular. ABDOMEN: Soft and nontender. EXTREMITIES: There is left Chopart amputation stump without breakdown. There is left heel ulcer with exuberant granulation tissue and no drainage currently. The dorsalis pedis and posterior tibial pulses are difficult to palpate in both feet. There is no edema, clubbing, or cyanosis of the rest of the extremities. SKIN: As per extremities. BRANCH LENDING MANAGER: Awake, alert, and oriented to person, place, and time. There is decreased sensation to monofilament test of the feet. LABORATORY AND DIAGNOSTICS: WBC 7270, hemoglobin 11, platelet 165,000, neutrophils 70.8, lymphocytes 16.1, monocytes 11.4, eosinophils 1.1, and basophils 0.3. Blood glucose 232. Blood culture and wound culture were collected. MRI of the left ankle was ordered. IMPRESSION: 1. ? osteomyelitis of the left calcaneus, present on admission. 2. Left heel ulcer, present on admission. 3. Diabetes mellitus type 2 with peripheral neuropathy. 4. Peripheral arterial disease. 5. End-stage renal disease. 6. Chronic obstructive pulmonary disease. 7. Iatrogenic hypothyroidism. PLAN: 1. Await MRI and check C-reactive protein and ESR. 2. Offload left heel. MD JALEEL Preston/JONATHAN /[id number]
--- NOTE | 2018-12-24 19:30 | NUR ---
Patient visited in room during nursing rounds. Patient alert and oriented x3. No distress or discomfort noted. Pt currently receiving hemodialysis via BHARAT AV graft. Left leg stump covered with abd dressing and kerlix. Left heel with wound with minor drainage (Wound care team consulted). On bedrest at this time. Call cast within reach.
[2018-12-24] MEDS: MORPHINE SULFATE INJ 4 MG/ML INJ 1ML IV PRN (21:29)
[2018-12-24] MEDS ORDERED: SODIUM CHLORIDE 0.9% 500ML 500 ML ONE (21:45)
[2018-12-24] MEDS: MEROPENEM 500MG/ NS 50ML 50 ML IV SCH (21:55)
[2018-12-25] VITALS (8 sets, daily range): BP systolic 149–189; BP diastolic 65–92
[2018-12-25] MEDS: MORPHINE SULFATE INJ 4 MG/ML INJ 1ML IV PRN (01:44)
[2018-12-25] MEDS: LEVOTHYROXINE SODIUM 100 MCG TAB PO SCH (06:09)
[2018-12-25] MEDS: LEVOTHYROXINE SODIUM 75 MCG TAB PO SCH (06:09)
[2018-12-25 06:11] LABS: BASOPHILS % 0.2 % (0.0-1.0); EOSINOPHILS # (AUTO) 0.2 (0.0-0.4); EOSINOPHILS % 1.9 % (0.0-6.0); HEMATOCRIT 35.6 % (34.2-44.1); HEMOGLOBIN 10.4 g/dL (12.0-16.0); LYMPHOCYTES # (AUTO) 1.7 (1.0-3.2); LYMPHOCYTES % 20.2 % (18.0-39.1); MEAN CORPUSCULAR HEMOGLOBIN 27.5 pg (28-32); MEAN CORPUSCULAR HGB CONC 29.2 g/dL (31-35); MEAN CORPUSCULAR VOLUME 94.2 fL (81-99); MONOCYTES % 11.2 % (4.4-11.3); NEUTROPHILS # (AUTO) 5.7 (2.1-6.9); NEUTROPHILS % 66.3 % (38.7-80.0); PLATELET COUNT 190 x10e3/uL (140-360); RED BLOOD COUNT 3.78 x10e6/uL (3.6-5.1); RED CELL DISTRIBUTION WIDTH 17.5 % (11.7-14.4)
[2018-12-25 06:16] LABS: ANION GAP 13.5 mmol/L (8-16); CALCIUM 8.3 mg/dL (8.4-10.2); CREATININE, SERUM 7.06 mg/dL (0.57-1.11); POTASSIUM 4.5 mmol/L (3.5-5.1)
[2018-12-25 06:38] LABS: THYROID STIMULATING HORMONE 15.404 uIU/mL (0.350-4.940)
[2018-12-25] MEDS: INSULIN LISPRO 100 UNIT/1 ML 3ML VIAL SQ SCH ×4 (07:30→21:00)
--- NOTE | 2018-12-25 07:30 | NUR ---
REC'D PATIENT AAOX3, PATIENT ON ROOM AIR, RIGHT AC IV 20 GAUGE DRY AND INTACT. BED IN LOWEST POSITION, SIDE RAILS UP X2, AND CALL JEFFERSON WITHIN REACH.
[2018-12-25] MEDS: CALCIUM ACETATE 667 MG GELCAP PO SCH ×3 (09:30→17:34)
[2018-12-25] MEDS: LACTOBACILLUS ACIDOPHILUS CAPSULE PO SCH ×2 (09:30→17:34)
[2018-12-25] MEDS: HEPARIN SOD (PORCINE) 5,000 UNIT/ML VIAL SC SCH ×2 (09:30→21:00)
[2018-12-25] MEDS: CILOSTAZOL 100 MG TAB PO SCH (09:30)
[2018-12-25] MEDS: NIFEDIPINE CR 30 MG TAB PO SCH ×2 (09:32→17:34)
[2018-12-25] MEDS: CARVEDILOL 3.125 MG TAB PO SCH ×2 (09:32→17:34)
--- NOTE | 2018-12-25 11:20 | NUR ---
WOUND CARE CONSULTATION - INITIAL EVALUATION Patient admitted from Home to ER for Cellulitis of LLE, ESRD and Left Heel Ulcer. LABS: WBC7.27 HGB11 HCT37.1 NEUT%70.8 AOR769 ALB2.7 Left Ankle X-Ray - Focal cortical erosion in anterior plantar surface of calcaneus, suspicious for OM. MRI - No Osteomyelitis. Wound Culture - Gram+ Cocci, and Gram - Bacilli. Sensitivity Results pending. PATIENT VISIT: Patient AAOX4, calm,cooperative and in good spirits. Willing to learn. -Presents with recent TMA of of left foot. Noted strikethrough with serosanguineous at bandage on the distolateral aspect of dressing. -TMA site presents with surgical dehiscence to lateral aspect of foot.1.5x1x0.5cm. 100% biofilm present to wound bed. After agressive cleansing area presents with grape like clusters of irregular granulation surface, now beefy bright red. - Left Heel -full thickness irregular shaped ulcer with exposed tendon/ dense fibrous tissue present on proximal aspect of wound. Distal aspect of wound presents with hypergranulation. - Measurements and additional information documented on Wound Assessment portion and linked to this note. IMPRESSION: 1. Left Heel - Stage - Pressure Ulcer - POA 2. Left Foot Lateral- S/P recent TMA with Surgical Dehiscence RECOMMENDATION: 1. Left Heel - Stage - Pressure Ulcer - POA - AGGRESSIVELY cleanse/ Scrub wound with Dakin's 0.25% solution and 4x4 gauze. - Apply Puracol Ag+ to deep end of wound only then cover with Maxsorb Ag+ then cover with staggered 4x4 gauze and secure with Kerlix Wrap Daily. 2. Left Foot Lateral- Surgical Dehiscence @ TMA Site: - AGGRESSIVELY Cleanse/ Scrub wound with Dakin's 0.25% and 4x4 gauze. - Apply Maxsorb Ag+ then cover with [id number] gauze and secure with Kerlix Daily. 3. Left Foot Heelmedix Heel Protector while in bed /Offload Heel with pillow assist while in bed. 4.Alternating Pressure Air Mattress and set pressure settings to patient current weight of 216lbs. 5. Turn and reposition patient every 2 hours using turning clock schedule. 6. Continue Moderate PUP Protocol Thank you for consulting with Wound Care. Addendum: 12/25/18 at 1153 by Sarath Carrion RN Amended: Links added.
[2018-12-25] MEDS ORDERED: BISACODYL 5 MG TAB EC PO ONE (18:00)
--- NOTE | 2018-12-25 18:55 | NUR ---
PATIENT IS SITTING AT THE SIDE OF THE BED WITH NO S/S OF DISTRESS. BED IN LOWEST POSITION, SIDE RAILS UP X2, AND CALL JEFFERSON WITHIN REACH.
--- NOTE | 2018-12-25 19:20 | NUR ---
Bedside nursing report completed with morning nurse. Pt alert and oriented to name. Sitting up on side of bed. Denies pain at this time. Call cast within reach. Will continue to monitor.
[2018-12-25] MEDS: MEROPENEM 500MG/ NS 50ML 50 ML IV SCH (21:15)
[2018-12-26] VITALS (7 sets, daily range): BP systolic 122–192; BP diastolic 56–79
[2018-12-26] MEDS: LEVOTHYROXINE SODIUM 100 MCG TAB PO SCH (05:58)
[2018-12-26] MEDS: LEVOTHYROXINE SODIUM 75 MCG TAB PO SCH (05:58)
--- NOTE | 2018-12-26 07:30 | NUR ---
Bedside report received from BARTOLOME Skinner. Pt is sitting on side of the bed, AAO3, in no acute distress noted. Dressing to left foot cdi informed pt nurse will do dressing change today. pt denies pain. Bed is locked and pt instructed to use call light and to call for assistance. Pt verbalized understanding.
[2018-12-26] MEDS: HEPARIN SOD (PORCINE) 5,000 UNIT/ML VIAL SC SCH ×2 (09:00→21:00)
[2018-12-26] MEDS: INSULIN LISPRO 100 UNIT/1 ML 3ML VIAL SQ SCH ×4 (09:01→21:00)
[2018-12-26] MEDS: CALCIUM ACETATE 667 MG GELCAP PO SCH ×3 (09:05→17:33)
[2018-12-26] MEDS: CARVEDILOL 3.125 MG TAB PO SCH ×2 (09:06→17:33)
[2018-12-26] MEDS: CLOPIDOGREL BISULFATE 75 MG TAB PO SCH (09:06)
[2018-12-26] MEDS: NIFEDIPINE CR 30 MG TAB PO SCH ×2 (09:07→17:34)
[2018-12-26] MEDS: CILOSTAZOL 100 MG TAB PO SCH (09:07)
[2018-12-26] MEDS: LACTOBACILLUS ACIDOPHILUS CAPSULE PO SCH ×2 (09:07→17:33)
[2018-12-26] MEDS ORDERED: SODIUM CHLORIDE 0.9% 1000ML 2,000 ML IV PRN (10:15)
[2018-12-26] MEDS ORDERED: BISACODYL 5 MG TAB EC PO ONE (14:45)
[2018-12-26] MEDS: SODIUM HYPOCHLORITE 0.25% 480 ML SOLN IR SCH (15:39)
[2018-12-26] MEDS: CIPROFLOXACIN 500 MG TAB PO SCH (17:33)
--- NOTE | 2018-12-26 19:30 | NUR ---
Change of shift report given to BARTOLOME Carlton. Pt is resting comfortably in bed, denies pain or discomfort. Instructed to use the call light for assistance, bed in lowest position, locked and side rails upx2.
--- NOTE | 2018-12-26 19:48 | NUR ---
Received change of shift report from am nurse. Walking rounds completed. Patient in bed. Denies pain at this time. Dressing to left foot dry and intact. Continue monitor.
[2018-12-26] MEDS: MINOCYCLINE HCL 50 MG CAP PO SCH (21:00)
[2018-12-27] VITALS (8 sets, daily range): BP systolic 95–178; BP diastolic 48–78
[2018-12-27] MEDS: LEVOTHYROXINE SODIUM 100 MCG TAB PO SCH (05:17)
[2018-12-27] MEDS: LEVOTHYROXINE SODIUM 75 MCG TAB PO SCH (05:18)
--- NOTE | 2018-12-27 05:56 | NUR ---
Patient resting quitly at this time.
[2018-12-27] MEDS: INSULIN LISPRO 100 UNIT/1 ML 3ML VIAL SQ SCH ×4 (07:30→22:14)
--- NOTE | 2018-12-27 07:30 | NUR ---
PATIENT IS AWAKE AND SITTING ON THE SIDE OF THE BED- PATIENT IN STABLE CONDITION WITH NO S/S OF RESPIRATORY DISTRESS. PATIENT C/O GENERALIZE PAIN 02/22. BED ALARM ON. CALL LIGHT IS WITHIN REACH, PATIENT INSTRUCTED TO CALL FOR ASSISTANCE NEEDED.
[2018-12-27] MEDS: MORPHINE SULFATE INJ 4 MG/ML INJ 1ML IV PRN (08:12)
[2018-12-27] MEDS: HEPARIN SOD (PORCINE) 5,000 UNIT/ML VIAL SC SCH ×2 (08:18→22:13)
[2018-12-27] MEDS: LACTOBACILLUS ACIDOPHILUS CAPSULE PO SCH ×2 (08:18→16:04)
[2018-12-27] MEDS: CILOSTAZOL 100 MG TAB PO SCH (08:18)
[2018-12-27] MEDS: CARVEDILOL 3.125 MG TAB PO SCH ×2 (08:18→16:04)
[2018-12-27] MEDS: NIFEDIPINE CR 30 MG TAB PO SCH ×2 (08:18→16:04)
[2018-12-27] MEDS: CLOPIDOGREL BISULFATE 75 MG TAB PO SCH (08:18)
[2018-12-27] MEDS: CALCIUM ACETATE 667 MG GELCAP PO SCH ×3 (08:18→16:04)
[2018-12-27] MEDS: MINOCYCLINE HCL 50 MG CAP PO SCH ×2 (08:18→22:02)
[2018-12-27] MEDS: SODIUM HYPOCHLORITE 0.25% 480 ML SOLN IR SCH (08:18)
--- NOTE | 2018-12-27 10:24 | NUR ---
SPOKE WITH PT ABOUT SNF'S IN NETWORK, CHOOSE [facility], HAVE REP COMING TO [employer]ET WAITING ON AUTH.
[2018-12-27] MEDS ORDERED: ACETAMINOPHEN/CODEINE 300MG - 30MG TAB PO PRN (13:45)
[2018-12-27] MEDS: CIPROFLOXACIN 500 MG TAB PO SCH (16:04)
--- NOTE | 2018-12-27 19:19 | NUR ---
PATIENT IS IN STABLE CONDITION WITH NO S/S OF RESPIRATORY DISTRESS. DRESSING TO LEFT FOOT AREA IS DRY AND INTACT. CALL LIGHT IS WITHIN REACH, PATIENT INSTRUCTED TO CALL FOR ASSISTANCE NEEDED. BEDSIDE SHIFT REPORT GIVEN TO ONCOMING NURSE.
--- NOTE | 2018-12-27 21:15 | NUR ---
ASSISTED PATIENT WITH ADLS, DIABETIC SNACK PROVIDED. PATIENT INCONTINENT OF URINE, SHE'S KEPT CLEAN AND DRY, SKIN PROTECTANT APPLIED TO THE OPEN AREA TO THE SACRUM. REPOSITION FOR COMFORT, CALL LIGHT WITHIN EASY REACH AND BED ALARM ON.
[2018-12-28] VITALS (7 sets, daily range): BP systolic 120–177; BP diastolic 63–74
--- NOTE | 2018-12-28 03:35 | NUR ---
WALKING ROUNDS MADE, PATIENT RESTING IN BED WATCHING TV. NO RESPIRATORY DISTRESS OBSERVED, SHE DENIES PAIN. CALL LIGHT WITHIN EASY REACH, BED ALARM ON.
[2018-12-28] MEDS: LEVOTHYROXINE SODIUM 100 MCG TAB PO SCH (05:57)
[2018-12-28] MEDS: LEVOTHYROXINE SODIUM 75 MCG TAB PO SCH (05:58)
--- NOTE | 2018-12-28 07:15 | NUR ---
PATIENT IS AWAKE AND ALERT. PATIENT IS SITTING ON THE SIDE OF THE BED IN STABLE CONDITION WITH NO S/S OF RESPIRATORY DISTRESS. PATIENT DENIES ANY PAIN. DRESSING TO LEFT LOWER FOOT AREA IS DRY AN INTACT. CALL LIGHT IS WITHIN REACH, PATIENT INSTRUCTED TO CALL FOR ASSISTANCE NEEDED.
[2018-12-28] MEDS: NIFEDIPINE CR 30 MG TAB PO SCH ×2 (09:00→16:43)
[2018-12-28] MEDS: CALCIUM ACETATE 667 MG GELCAP PO SCH ×3 (09:24→16:43)
[2018-12-28] MEDS: LACTOBACILLUS ACIDOPHILUS CAPSULE PO SCH ×2 (09:24→16:43)
[2018-12-28] MEDS: CILOSTAZOL 100 MG TAB PO SCH (09:24)
[2018-12-28] MEDS: SODIUM HYPOCHLORITE 0.25% 480 ML SOLN IR SCH (09:24)
[2018-12-28] MEDS: MINOCYCLINE HCL 50 MG CAP PO SCH ×2 (09:24→20:55)
[2018-12-28] MEDS: INSULIN LISPRO 100 UNIT/1 ML 3ML VIAL SQ SCH ×4 (09:26→21:02)
[2018-12-28] MEDS: HEPARIN SOD (PORCINE) 5,000 UNIT/ML VIAL SC SCH ×2 (09:26→21:04)
[2018-12-28] MEDS ORDERED: SODIUM CHLORIDE 0.9% 250ML 500 ML IV PRN (10:45)
--- NOTE | 2018-12-28 14:33 | NUR ---
PATIENT COMPLETED DIALYSIS 2 LITERS REMOVED.
[2018-12-28] MEDS: CLOPIDOGREL BISULFATE 75 MG TAB PO SCH (16:42)
[2018-12-28] MEDS: CIPROFLOXACIN 500 MG TAB PO SCH (16:42)
[2018-12-28] MEDS: CARVEDILOL 3.125 MG TAB PO SCH (16:43)
--- NOTE | 2018-12-28 19:21 | NUR ---
PATIENT IS IN STABLE CONDITION WITH NO S/S OF RESPIRATORY DISTRESS. NO PAIN VOICED. DRESSING IS INTACT AND DRY. BED ALARM ON. CALL LIGHT IS WITHIN REACH, PATIENT INSTRUCTED TO CALL FOR ASSISTANCE NEEDED. BEDSIDE SHIFT REPORT GIVEN TO ONCOMING NURSE.
--- NOTE | 2018-12-28 21:14 | NUR ---
PT SITTING COMFORTABLY AT BESIDE. PT DENIES C/O ANY PAIN. DIABETIC SNACK PROVIDED AT THIS TIME, PT IS EATING SNACK. BED LOCKED AND IN LOW POSITION, CALL LIGHT IS IN REACH AND PT EDUCATED TO CALL FOR ASSISTANCE GETTING REPOSITIONED BACK INTO BED.
--- NOTE | 2018-12-28 23:50 | NUR ---
PT SLEEPING COMFORTABLY IN BED AT THIS TIME. PT RESPIRATIONS REGULAR AND EVEN, APPEARS IN NO DISTRESS AT THIS TIME. BED IS IN LOW, LOCKED POSITION WITH BED ALARM ON.
[2018-12-29] VITALS (9 sets, daily range): BP systolic 132–178; BP diastolic 58–84
--- NOTE | 2018-12-29 06:02 | NUR ---
PT REPOSITIONED TO SIDE OF BED AT THIS TIME. PT INFORMED TO USE THE CALL LIGHT TO GET REPOSITIONED BACK INTO BED WHEN READY. PT HAS NO C/O PAIN AT THIS TIME.
[2018-12-29] MEDS: LEVOTHYROXINE SODIUM 100 MCG TAB PO SCH (06:04)
[2018-12-29] MEDS: LEVOTHYROXINE SODIUM 75 MCG TAB PO SCH (06:04)
[2018-12-29] MEDS: INSULIN LISPRO 100 UNIT/1 ML 3ML VIAL SQ SCH ×4 (07:30→20:42)
[2018-12-29] MEDS: MINOCYCLINE HCL 50 MG CAP PO SCH ×2 (08:49→22:28)
[2018-12-29] MEDS: LACTOBACILLUS ACIDOPHILUS CAPSULE PO SCH ×2 (08:49→16:42)
[2018-12-29] MEDS: CARVEDILOL 3.125 MG TAB PO SCH ×2 (08:49→16:42)
[2018-12-29] MEDS: SODIUM HYPOCHLORITE 0.25% 480 ML SOLN IR SCH (08:49)
[2018-12-29] MEDS: CLOPIDOGREL BISULFATE 75 MG TAB PO SCH (08:49)
[2018-12-29] MEDS: CALCIUM ACETATE 667 MG GELCAP PO SCH ×3 (08:49→16:42)
[2018-12-29] MEDS: HEPARIN SOD (PORCINE) 5,000 UNIT/ML VIAL SC SCH ×2 (08:49→20:42)
[2018-12-29] MEDS: CILOSTAZOL 100 MG TAB PO SCH (08:49)
[2018-12-29] MEDS: NIFEDIPINE CR 30 MG TAB PO SCH ×2 (08:50→16:42)
--- NOTE | 2018-12-29 09:11 | NUR ---
PATIENT IS ALERT AND SITTING UP ON THE SIDE OF THE BED. PATIENT IS IN STABLE CONDITION WITH NO S/S OF RESPIRATORY DISTRESS. DRESSING IS DRY AND INTACT. BED ALARM ON. THE CALL LIGHT IS WITHIN REACH OF PATIENT- PATIENT INSTRUCTED TO CALL FOR ASSISTANCE NEEDED.
[2018-12-29] MEDS ORDERED: BISACODYL 5 MG TAB EC PO ONE ×2 (14:30→21:30)
[2018-12-29] MEDS: CIPROFLOXACIN 500 MG TAB PO SCH (16:42)
--- NOTE | 2018-12-29 18:12 | NUR ---
RECEIVED BP MEDICATION ORDER FROM DR. VELASQUEZ AFTER INFORMING DR. VELASQUEZ OF PATIENT'S CURRENT BP OF 163/73.
--- NOTE | 2018-12-29 19:13 | NUR ---
PATIENT IS IN STABLE CONDITION WITH NO S/S OF RESPIRATORY DISTRESS. DRESSING TO LEFT TMA AREA IS DRY AND INTACT. THE CALL LIGHT IS WITHIN REACH OF PATIENT- PATIENT INSTRUCTED TO CALL FOR ASSISTANCE NEEDED. BEDSIDE SHIFT REPORT GIVEN TO ONCOMING NURSE.
--- NOTE | 2018-12-29 20:22 | NUR ---
Spoke with Dr Sutton: Patient c/o no being able to have BM, had dulcolax 10 mg po at 1440, and prune juice with no results: patient requesting enema. New order: Fleet enema x1
[2018-12-29] MEDS ORDERED: MINERAL OIL 132 ML BTL PR ONE (20:30)
[2018-12-29] MEDS ORDERED: HYDRALAZINE HCL 25 MG TAB PO SCH (21:00)
--- NOTE | 2018-12-29 21:30 | NUR ---
FLEET ENEMA GIVEN AT 2109. ADDITIONAL PRUNE JUICE REQUESTED BY PT AND GIVEN AT THIS TIME. PT STILL HAS NOT HAD A BM. DR. VELASQUEZ CALLED AND MADE AWARE AT THIS TIME THAT PT HAS NOT HAD BM, NEW ORDER RECEIVED FOR AN ADDITIONAL 10 MG OF DULCOLAX PO TO BE GIVEN.
--- NOTE | 2018-12-29 21:40 | NUR ---
DULCOLAX 10MG PO GIVEN ORDERED. PT STILL C/O NEEDING TO HAVE BM. PT INFORMED TO USE CALL LIGHT IF SHE HAS BM. BED IN LOW LOCKED POSITION AND CALL LIGHT IN REACH.
[2018-12-30] VITALS: BP 164/87
--- NOTE | 2018-12-30 01:20 | NUR ---
PT STILL C/O NEEDING TO HAVE A BM. DR. VELASQUEZ CALLED AND ORDER RECEIVED FOR TAP WATER ENEMA AT THIS TIME.
--- NOTE | 2018-12-30 02:44 | NUR ---
PT HAD LARGE BROWN FORMED BM AT THIS TIME. PT STATES THAT HER PAIN IS GONE AND "FEELS MUCH BETTER." BRIANNA CARE PERFORMED, COMPLETE LINEN CHANGE AND PT REPOSITIONED BACK INTO BED. CALL LIGHT IN REACH AND BED IN LOW LOCKED POSITION WITH BED ALARM ON.
[2018-12-30 04:32] VITALS: BP 188/79
[2018-12-30] MEDS ORDERED: HYDRALAZINE HCL 25 MG TAB PO ONE (04:45)
--- NOTE | 2018-12-30 05:50 | NUR ---
PT RESTING COMFORTABLY IN BED AT THIS TIME. PT DENIES PAIN AND APPEARS IN NO DISTRESS. BED IS IN LOW, LOCKED POSITION WITH THE BED ALARM ON. CALL LIGHT IS IN REACH.
[2018-12-30] MEDS: LEVOTHYROXINE SODIUM 100 MCG TAB PO SCH (05:55)
[2018-12-30] MEDS: LEVOTHYROXINE SODIUM 75 MCG TAB PO SCH (05:55)
--- NOTE | 2018-12-30 07:30 | NUR ---
PT UP ON SIDE OF BED NO DISTRESS NTOED,DENIES PAIN,DRSG TO LT FOOT CD&I
[2018-12-30 08:09] VITALS: BP 171/75
[2018-12-30] MEDS: CALCIUM ACETATE 667 MG GELCAP PO SCH (08:30)
[2018-12-30] MEDS: INSULIN LISPRO 100 UNIT/1 ML 3ML VIAL SQ SCH (08:30)
[2018-12-30] MEDS: MINOCYCLINE HCL 50 MG CAP PO SCH (08:31)
[2018-12-30] MEDS: CLOPIDOGREL BISULFATE 75 MG TAB PO SCH (08:31)
[2018-12-30] MEDS: CARVEDILOL 3.125 MG TAB PO SCH (08:31)
[2018-12-30] MEDS: NIFEDIPINE CR 30 MG TAB PO SCH (08:31)
[2018-12-30] MEDS: CILOSTAZOL 100 MG TAB PO SCH (08:31)
[2018-12-30] MEDS: LACTOBACILLUS ACIDOPHILUS CAPSULE PO SCH (08:31)
[2018-12-30] MEDS: HEPARIN SOD (PORCINE) 5,000 UNIT/ML VIAL SC SCH (08:32)
[2018-12-30 08:42] VITALS: BP 171/75
--- NOTE | 2018-12-30 08:46 | NUR ---
PT ACCEPTED TO [place] [address] [facility] [id number], CALL REPORT TO [phone] GOING TO ROOM 56A WITH DR KLINE, INFORMATION GIVEN TO NURSE READY FOR DISCHARGE, MD NOTIFIED.
[2018-12-30] MEDS ORDERED: HYDRALAZINE HCL 25 MG TAB PO SCH (09:00)
--- NOTE | 2018-12-30 11:06 | NUR ---
AT FACILITY CHANGED TO [facility]
[2018-12-30 11:50] VITALS: BP 168/72
--- NOTE | 2018-12-30 13:31 | NUR ---
PT DISCHARGED TO [facility] ROOM 56A,[facility]IA [facility],STABLE CONDITION
--- NOTE | 2018-12-30 15:01 | Discharge Summary ---
PRIMARY CARE DOCTOR: Dr. Tl Patel. FINAL DIAGNOSIS: Left heel ulcer, cellulitis with methicillin-resistant Staphylococcus aureus and Pseudomonas. SECONDARY DIAGNOSES: 1. End-stage renal disease due to diabetes. 2. Hypertension. 3. Peripheral vascular disease. 4. Debility. CONSULTANTS: 1. Dr. Mercado, Nephrology. 2. Dr. Camargo, Infectious Disease. PROCEDURES/STUDIES PERFORMED: MRI of the foot. HISTORY: Per H and P. HOSPITAL COURSE: The patient was admitted with left heel ulcer initially and was worrisome for osteomyelitis, however, MRI was negative. The patient has peripheral vascular disease, she takes Plavix for that. Wound culture came back Pseudomonas and MRSA. The patient will need three more days of renally dosed ciprofloxacin and minocycline to complete a one week course per ID recommendation. The patient will need a lot of wound care and offloading. The patient will also need skilled physical therapy. Therefore, the patient will be going over to [facility] today. Of note, the patient gets constipated really easily, so we need to keep an eye out for that. As far as her uncontrolled hypertension, hydralazine was added to her Coreg and nifedipine and now it is better. The patient received heparin subcu for chemical DVT prophylaxis. The patient was seen and examined today. It took 33 minutes total to discharge this patient. I have updated the receiving long term doctor about this patient and also I have updated the primary care doctor as well. CONDITION ON DISCHARGE: Improved. DISCHARGE MEDICATIONS: Please see medication reconciliation form. MD DOMINIK Mills/JONATHAN /[id number] cc: [facility]
== END 2018-12-30 13:27 | DRG 564 ==
LOC: ER 18:02 → ERHOLD 22:08 → MED/SURG3 22:44
PROVIDERS: ADMIT Internal Medicine; ATTEND Internal Medicine
PROC: 5A1D70Z Performance of Urinary Filtration, Intermittent, Less than 6 Hours Per Day (ICD-10-PCS; principal; 2018-12-24)
PROC: 5A1D70Z Performance of Urinary Filtration, Intermittent, Less than 6 Hours Per Day (ICD-10-PCS; 2018-12-26)
PROC: 5A1D70Z Performance of Urinary Filtration, Intermittent, Less than 6 Hours Per Day (ICD-10-PCS; 2018-12-28)
DX: T87.44 Infection of amputation stump, left lower extremity (principal); N18.6 End stage renal disease; L03.116 Cellulitis of left lower limb; L97.429 Non-pressure chronic ulcer of left heel and midfoot with unspecified severity; I13.2 Hypertensive heart and chronic kidney disease with heart failure and with stage 5 chronic kidney disease, or end stage renal disease; I50.30 Unspecified diastolic (congestive) heart failure; E87.1 Hypo-osmolality and hyponatremia; N25.81 Secondary hyperparathyroidism of renal origin; E11.621 Type 2 diabetes mellitus with foot ulcer; Z88.7 Allergy status to serum and vaccine; Z88.8 Allergy status to other drugs, medicaments and biological substances; E11.22 Type 2 diabetes mellitus with diabetic chronic kidney disease; I50.9 Heart failure, unspecified; Z99.2 Dependence on renal dialysis; E78.5 Hyperlipidemia, unspecified; F31.9 Bipolar disorder, unspecified; Z83.3 Family history of diabetes mellitus; Z82.49 Family history of ischemic heart disease and other diseases of the circulatory system; Z89.432 Acquired absence of left foot; J44.9 Chronic obstructive pulmonary disease, unspecified; Z77.22 Contact with and (suspected) exposure to environmental tobacco smoke (acute) (chronic); E86.0 Dehydration; E11.51 Type 2 diabetes mellitus with diabetic peripheral angiopathy without gangrene; D63.1 Anemia in chronic kidney disease; E87.70 Fluid overload, unspecified; Z99.3 Dependence on wheelchair; E03.2 Hypothyroidism due to medicaments and other exogenous substances; Z79.4 Long term (current) use of insulin; B95.62 Methicillin resistant Staphylococcus aureus infection as the cause of diseases classified elsewhere; B96.5 Pseudomonas (aeruginosa) (mallei) (pseudomallei) as the cause of diseases classified elsewhere; R53.81 Other malaise; K59.00 Constipation, unspecified
CPT/HCPCS: 36415; 80048; 80053; 82550; 82553; 82948; 83036; 83605; 84443; 84484; 85025; 85651; 86140; 86705; 86706; 87040; 87071; 87186; 87205; 87340; 96372; 99284; J1644; J2270; J3370; J7030; J7040

== ENCOUNTER 2019-01-19 04:34 | Emergency (ER) | payer MEDICARE ==
[~2019-01-19] VITALS: Ht 167.6 cm; Wt 103.4 kg
--- OUTSIDE RECORDS SUMMARY | 2019-01-19 04:37 | XMS REPORT | Clinical Summary ---
Author Author YADIEL [facility] Address Unknown Phone Unavailable Care Team Providers Care Supervisor [employer] Name Role Phone Tl Patel PCP Allergies [...] strength vitamin D (around 01/02/14), start taking epyn-cql-cbuj ter vitamin D3 2000 units daily.. Active [...] 0 capsule daily . 09/09/2018 Discontinued omega 3-fnn-nql-fish oil Take 6 0 (FISH OIL) 1,000 [...] EVERY DAY. 09/09/[address]-shark Place 0 hjn-myzr-uey rectally as (HEMORRHOIDAL) Crea needed. 09/09/2018 Discontinued [...] 09/10/2018 Surgery Juan J Ocasio MD 09/09/2018 [facility] General Internal Medicine - Encounter 09/17/2018 09/09/2018 Travel Goyo Haji MD AMPUTATION,TOE 07/25/2018 Surgery Suresh Roberts MD 07/25/2018 Anesthesia Event Jonathan Wood MD PERIPHERAL ANGIOS / AORTOGRAM 07/23/2018 Surgery 07/20/2018 Travel Jr Lala MD [facility], Fely Acevedo MD 07/19/2018 [facility] Cardiology - Encounter 07/27/2018 Bakari Cuenca MD Hemorrhoids, unspecified hemorrhoid type (Primary Dx); Essential hypertension; ESRD (end stage renal disease) (HCC); Simple chronic bronchitis (HCC) 05/18/2018 Emergency Emergency Medicine 05/18/2018 Travel after 01/18/2018 Social History Date Tobacco Use Types Packs/Day [...] Taken Vital Sign Reading 09/17/2018 3:17 PM FIELD IRRIGATION WORKER Blood Pressure 136/62 09/17/2018 3:17 PM FIELD IRRIGATION WORKER Pulse 76 09/17/2018 3:17 PM FIELD IRRIGATION WORKER Temperature 35.8 C (96.4 F) 09/17/2018 3:17 PM FIELD IRRIGATION WORKER Respiratory Rate 20 09/17/2018 3:17 PM FIELD IRRIGATION WORKER Oxygen Saturation 98% - Inhaled Oxygen - Concentration 09/17/2018 8:45 AM FIELD IRRIGATION WORKER Weight 104.7 kg (230 lb 13.2 oz) 09/09/2018 9:34 PM FIELD IRRIGATION WORKER Height 167.6 cm (5' 6") 09/17/2018 8:45 AM FIELD IRRIGATION WORKER Body Mass Index 37.26 Plan of Treatment Not on file Procedures Comments Procedure Name Priority Date/Time Associated Diagnosis RHYTHM STRIP - SCAN 09/20/2018 10:00 AM FIELD IRRIGATION WORKER POCT-GLUCOSE METER Routine 09/17/2018 2:43 PM FIELD IRRIGATION WORKER HEMODIALYSIS INPATIENT Routine 09/17/2018 1:30 PM FIELD IRRIGATION WORKER POCT-GLUCOSE METER Routine 09/17/2018 12:50 PM FIELD IRRIGATION WORKER POCT-GLUCOSE METER Routine 09/17/2018 8:19 AM FIELD IRRIGATION WORKER CBC W/PLT COUNT & AUTO Routine 09/17/2018 DIFFERENTIAL 5:09 AM FIELD IRRIGATION WORKER BASIC METABOLIC PANEL (7) Routine 09/17/2018 5:09 AM FIELD IRRIGATION WORKER CBC W/PLT COUNT & AUTO Routine 09/17/2018 DIFFERENTIAL 5:09 AM FIELD IRRIGATION WORKER POCT-GLUCOSE METER Routine 09/16/2018 9:36 PM FIELD IRRIGATION WORKER POCT-GLUCOSE METER Routine 09/16/2018 5:57 PM FIELD IRRIGATION WORKER POCT-GLUCOSE METER Routine 09/16/2018 12:15 PM FIELD IRRIGATION WORKER POCT-GLUCOSE METER Routine 09/16/2018 8:07 AM FIELD IRRIGATION WORKER POCT-GLUCOSE METER Routine 09/15/2018 9:27 PM FIELD IRRIGATION WORKER POCT-GLUCOSE METER Routine 09/15/2018 4:30 PM FIELD IRRIGATION WORKER POCT-GLUCOSE METER Routine 09/15/2018 11:42 AM FIELD IRRIGATION WORKER POCT-GLUCOSE METER Routine 09/15/2018 9:31 AM FIELD IRRIGATION WORKER POCT-GLUCOSE METER Routine 09/14/2018 9:22 PM FIELD IRRIGATION WORKER HEMODIALYSIS INPATIENT Routine 09/14/2018 6:47 PM FIELD IRRIGATION WORKER BASIC METABOLIC PANEL (7) Routine 09/14/2018 4:09 PM FIELD IRRIGATION WORKER POCT-GLUCOSE METER Routine 09/14/2018 12:50 PM FIELD IRRIGATION WORKER POCT-GLUCOSE METER Routine 09/14/2018 8:56 AM FIELD IRRIGATION WORKER BLOOD CULTURE STAT 09/14/2018 6:43 AM FIELD IRRIGATION WORKER CBC W/PLT COUNT & AUTO Routine 09/14/2018 DIFFERENTIAL 6:42 AM FIELD IRRIGATION WORKER CBC W/PLT COUNT & AUTO Routine 09/14/2018 DIFFERENTIAL 6:42 AM FIELD IRRIGATION WORKER POCT-GLUCOSE METER Routine 09/13/2018 8:57 PM FIELD IRRIGATION WORKER BLOOD CULTURE STAT 09/13/2018 8:40 PM FIELD IRRIGATION WORKER POCT-GLUCOSE METER Routine 09/13/2018 6:55 PM FIELD IRRIGATION WORKER POCT-GLUCOSE METER Routine 09/13/2018 12:54 PM FIELD IRRIGATION WORKER POCT-GLUCOSE METER Routine 09/13/2018 8:10 AM FIELD IRRIGATION WORKER CBC W/PLT COUNT & AUTO Routine 09/13/2018 DIFFERENTIAL 4:59 AM FIELD IRRIGATION WORKER CBC W/PLT COUNT & AUTO Routine 09/13/2018 DIFFERENTIAL 4:59 AM FIELD IRRIGATION WORKER POCT-GLUCOSE METER Routine 09/12/2018 9:36 PM FIELD IRRIGATION WORKER POCT-GLUCOSE METER Routine 09/12/2018 5:46 PM FIELD IRRIGATION WORKER POCT-GLUCOSE METER Routine 09/12/2018 4:07 PM FIELD IRRIGATION WORKER HEMODIALYSIS INPATIENT Routine 09/12/2018 1:00 PM FIELD IRRIGATION WORKER POCT-GLUCOSE METER Routine 09/12/2018 7:20 AM FIELD IRRIGATION WORKER CBC W/PLT COUNT & AUTO Routine 09/12/2018 DIFFERENTIAL 4:51 AM FIELD IRRIGATION WORKER BASIC METABOLIC PANEL (7) Routine 09/12/2018 4:51 AM FIELD IRRIGATION WORKER CBC W/PLT COUNT & AUTO Routine 09/12/2018 DIFFERENTIAL 4:51 AM FIELD IRRIGATION WORKER POCT-GLUCOSE METER Routine 09/11/2018 9:08 PM FIELD IRRIGATION WORKER POCT-GLUCOSE METER Routine 09/11/2018 6:18 PM FIELD IRRIGATION WORKER TRANSFUSION SERVICE 09/11/2018 REPORT - SCAN 6:01 PM FIELD IRRIGATION WORKER POCT-GLUCOSE METER Routine 09/11/2018 1:00 PM FIELD IRRIGATION WORKER POCT-GLUCOSE METER Routine 09/11/2018 9:13 AM FIELD IRRIGATION WORKER CBC W/PLT COUNT & AUTO Routine 09/11/2018 DIFFERENTIAL 4:56 AM FIELD IRRIGATION WORKER BASIC METABOLIC PANEL (7) Routine 09/11/2018 4:56 AM FIELD IRRIGATION WORKER CBC W/PLT COUNT & AUTO Routine 09/11/2018 DIFFERENTIAL 4:56 AM FIELD IRRIGATION WORKER PT/APTT Routine 09/11/2018 4:56 AM FIELD IRRIGATION WORKER POCT-GLUCOSE METER Routine 09/10/2018 9:57 PM FIELD IRRIGATION WORKER POCT-GLUCOSE METER Routine 09/10/2018 7:00 PM FIELD IRRIGATION WORKER POCT-GLUCOSE METER Routine 09/10/2018 5:10 PM FIELD IRRIGATION WORKER TISSUE EXAM AP Routine 09/10/2018 1:58 PM FIELD IRRIGATION WORKER POTASSIUM-STAT LAB STAT 09/10/2018 12:59 PM FIELD IRRIGATION WORKER AMPUTATION,FOOT 09/10/2018 Gangrene (HCC) 12:20 PM FIELD IRRIGATION WORKER Case Notes 2 HRS PER CRISTIAN ENCISO BY CINDY TO POST @ 1/09/09 @ 1:54 HEMODIALYSIS INPATIENT Routine 09/10/2018 12:17 PM FIELD IRRIGATION WORKER IRON, TIBC, % SAT. Routine 09/10/2018 (WITHOUT FERRITIN) 10:37 AM FIELD IRRIGATION WORKER PHOSPHORUS Routine 09/10/2018 10:37 AM FIELD IRRIGATION WORKER TYPE AND SCREEN, STAT 09/10/2018 AUTOMATED 2:46 AM FIELD IRRIGATION WORKER PT/APTT Routine 09/10/2018 2:46 AM FIELD IRRIGATION WORKER CBC W/PLT COUNT & AUTO STAT 09/09/2018 DIFFERENTIAL 11:57 PM FIELD IRRIGATION WORKER HEPATITIS B SURFACE Routine 09/09/2018 ANTIGEN 11:57 PM FIELD IRRIGATION WORKER CBC W/PLT COUNT & AUTO STAT 09/09/2018 DIFFERENTIAL 11:57 PM FIELD IRRIGATION WORKER MAGNESIUM STAT 09/09/2018 11:57 PM FIELD IRRIGATION WORKER HEPATIC FUNCTION PANEL STAT 09/09/2018 11:57 PM FIELD IRRIGATION WORKER BASIC METABOLIC PANEL (7) STAT 09/09/2018 11:57 PM FIELD IRRIGATION WORKER POCT-GLUCOSE METER Routine 09/09/2018 11:12 PM FIELD IRRIGATION WORKER VASCULAR DIAGRAM -SCAN 09/05/2018 4:40 PM FIELD IRRIGATION WORKER VASCULAR DIAGRAM -SCAN 08/19/2018 9:10 AM FIELD IRRIGATION WORKER RHYTHM STRIP - SCAN 08/19/2018 9:10 AM FIELD IRRIGATION WORKER CARDIAC CATH REPORT - 08/19/2018 SCAN 9:10 AM FIELD IRRIGATION WORKER POCT-GLUCOSE METER Routine 07/27/2018 12:42 PM FIELD IRRIGATION WORKER POCT-GLUCOSE METER Routine 07/27/2018 9:08 AM FIELD IRRIGATION WORKER POCT-GLUCOSE METER Routine 07/26/2018 9:29 PM FIELD IRRIGATION WORKER POCT-GLUCOSE METER Routine 07/26/2018 5:55 PM FIELD IRRIGATION WORKER POCT-GLUCOSE METER Routine 07/26/2018 12:10 PM FIELD IRRIGATION WORKER HEMODIALYSIS INPATIENT Routine 07/26/2018 11:52 AM FIELD IRRIGATION WORKER BASIC METABOLIC PANEL (7) Routine 07/26/2018 8:19 AM FIELD IRRIGATION WORKER POCT-GLUCOSE METER Routine 07/25/2018 9:49 PM FIELD IRRIGATION WORKER POCT-GLUCOSE METER Routine 07/25/2018 6:02 PM FIELD IRRIGATION WORKER POCT-GLUCOSE METER Routine 07/25/2018 1:37 PM FIELD IRRIGATION WORKER TISSUE EXAM AP Routine 07/25/2018 1:05 PM FIELD IRRIGATION WORKER AMPUTATION,TOE 07/25/2018 Gangrene of toe (HCC) 1:01 PM FIELD IRRIGATION WORKER POCT-GLUCOSE METER Routine 07/25/2018 8:06 AM FIELD IRRIGATION WORKER POCT-GLUCOSE METER Routine 07/24/2018 11:08 PM FIELD IRRIGATION WORKER HEMODIALYSIS INPATIENT Routine 07/24/2018 7:50 PM FIELD IRRIGATION WORKER PHOSPHORUS Routine 07/24/2018 4:17 PM FIELD IRRIGATION WORKER POCT-GLUCOSE METER Routine 07/24/2018 12:33 PM FIELD IRRIGATION WORKER POCT-GLUCOSE METER Routine 07/24/2018 7:31 AM FIELD IRRIGATION WORKER CBC W/PLT COUNT & AUTO Routine 07/24/2018 DIFFERENTIAL 3:24 AM FIELD IRRIGATION WORKER CBC W/PLT COUNT & AUTO Routine 07/24/2018 DIFFERENTIAL 3:24 AM FIELD IRRIGATION WORKER BASIC METABOLIC PANEL (7) Routine 07/24/2018 3:24 AM FIELD IRRIGATION WORKER PLATELET AGGREGATION: AP Routine 07/24/2018 FUNCTION SCREEN 3:24 AM FIELD IRRIGATION WORKER POCT-GLUCOSE METER Routine 07/23/2018 9:20 PM FIELD IRRIGATION WORKER POCT-ACT Routine 07/23/2018 7:09 PM FIELD IRRIGATION WORKER POCT-GLUCOSE METER Routine 07/23/2018 6:32 PM FIELD IRRIGATION WORKER POCT-ACT Routine 07/23/2018 5:47 PM FIELD IRRIGATION WORKER POCT-ACT Routine 07/23/2018 4:42 PM FIELD IRRIGATION WORKER POCT-ACT Routine 07/23/2018 2:38 PM FIELD IRRIGATION WORKER POCT-GLUCOSE METER Routine 07/23/2018 1:25 PM FIELD IRRIGATION WORKER POCT-ACT Routine 07/23/2018 10:13 AM FIELD IRRIGATION WORKER PERIPHERAL ANGIOS / 07/23/2018 Peripheral arterial AORTOGRAM 9:15 AM FIELD IRRIGATION WORKER disease (HCC) Case Notes (2) CASE 1830 POCT-GLUCOSE METER Routine 07/23/2018 6:42 AM FIELD IRRIGATION WORKER POCT-GLUCOSE METER Routine 07/22/2018 9:21 PM FIELD IRRIGATION WORKER HEMODIALYSIS INPATIENT Routine 07/22/2018 8:37 PM FIELD IRRIGATION WORKER CBC W/PLT COUNT & AUTO Routine 07/22/2018 DIFFERENTIAL 4:08 PM FIELD IRRIGATION WORKER PHOSPHORUS Routine 07/22/2018 4:08 PM FIELD IRRIGATION WORKER BASIC METABOLIC PANEL (7) Routine 07/22/2018 4:08 PM FIELD IRRIGATION WORKER CBC W/PLT COUNT & AUTO Routine 07/22/2018 DIFFERENTIAL 4:08 PM FIELD IRRIGATION WORKER POCT-GLUCOSE METER Routine 07/22/2018 11:33 AM FIELD IRRIGATION WORKER POCT-GLUCOSE METER Routine 07/21/2018 9:06 PM FIELD IRRIGATION WORKER POCT-GLUCOSE METER Routine 07/21/2018 4:10 PM FIELD IRRIGATION WORKER C. DIFFICILE GDH TOXIN Routine 07/21/2018 2:11 PM FIELD IRRIGATION WORKER POCT-GLUCOSE METER Routine 07/21/2018 11:28 AM FIELD IRRIGATION WORKER POCT-GLUCOSE METER Routine 07/21/2018 7:46 AM FIELD IRRIGATION WORKER POCT-GLUCOSE METER Routine 07/20/2018 9:21 PM FIELD IRRIGATION WORKER HEMODIALYSIS INPATIENT Routine 07/20/2018 7:18 PM FIELD IRRIGATION WORKER POCT-GLUCOSE METER Routine 07/20/2018 4:42 PM FIELD IRRIGATION WORKER HEPATITIS B SURFACE Routine 07/20/2018 ANTIGEN 2:58 PM FIELD IRRIGATION WORKER PHOSPHORUS Routine 07/20/2018 2:58 PM FIELD IRRIGATION WORKER POCT-GLUCOSE METER Routine 07/20/2018 11:33 AM FIELD IRRIGATION WORKER POCT-GLUCOSE METER Routine 07/20/2018 7:53 AM FIELD IRRIGATION WORKER CBC W/PLT COUNT & AUTO Routine 07/20/2018 DIFFERENTIAL 6:02 AM FIELD IRRIGATION WORKER BASIC METABOLIC PANEL (7) Routine 07/20/2018 6:02 AM FIELD IRRIGATION WORKER CBC W/PLT COUNT & AUTO Routine 07/20/2018 DIFFERENTIAL 6:02 AM FIELD IRRIGATION WORKER POCT-GLUCOSE METER Routine 07/19/2018 8:27 PM FIELD IRRIGATION WORKER CBC W/PLT COUNT & AUTO STAT 05/18/2018 DIFFERENTIAL 11:32 AM CDT BASIC METABOLIC PANEL (7) STAT 05/18/2018 11:32 AM CDT CBC W/PLT COUNT & AUTO STAT 05/18/2018 DIFFERENTIAL 11:32 AM CDT PT/APTT STAT 05/18/2018 11:32 AM CDT after 01/18/2018 Results * RHYTHM STRIP - SCAN (09/20/2018 10:00 AM FIELD IRRIGATION WORKER) Only the most recent of 2 results within the time period is included. Narrative Performed At * POC-Glucose meter (09/17/2018 2:43 PM FIELD IRRIGATION WORKER) Only the most recent of 57 results within the time period is included. POC-Glucose Meter 192 (H)Comment: TESTED AT 70 - 110 mg/dL [facility] [address] [place] [id number] Specimen Blood Performing Organization Address City/State/Zipcode Phone Number [address] [phone] [facility] * HEMODIALYSIS INPATIENT (09/17/2018 1:30 PM FIELD IRRIGATION WORKER) Narrative Performed At Alyson Stoddard RN 09/17/20181:54 [...] count + automated diff (09/17/2018 5:09 AM FIELD IRRIGATION WORKER) Only the most recent of 10 results within the time period is included. WBC 5.9 3.5 - 10.5 K/L [facility] RBC 3.20 (L) 3.93 - 5.22 M/L [facility] Hemoglobin 8.3 (L) 11.2 - 15.7 GM/DL [facility] Hematocrit 29.5 (L) 34.1 - 44.9 % [facility] MCV 92.2 79.4 - 94.8 fL [facility] MCH 25.9 25.6 - 32.2 pg [facility] MCHC 28.1 (L) 32.2 - 35.5 GM/DL [facility] RDW 15.4 (H) 11.7 - 14.4 % [facility] Platelets 247 150 - 450 K/CU MM [facility] MPV 10.7 9.4 - 12.3 fL [facility] nRBC 0 0 - 0 /100 WBC [facility] % Neutros 68 % [facility] % Lymphs 19 % [facility] % Monos 10 % [facility] % Eos 2 % [facility] % Baso 0 % [facility] # Neutros 4.01 1.56 - 6.13 K/L [facility] # Lymphs 1.10 (L) 1.18 - 3.74 K/L [facility] # Monos 0.61 (H) 0.24 - 0.36 K/L [facility] # Eos 0.13 0.04 - 0.36 K/L [facility] # Baso 0.01 0.01 - 0.08 K/L [facility] Immature 0 0 - 1 % [facility] Granulocytes-Relative [facility] Specimen Blood Performing Organization Address City/State/Zipcode Phone Number [facility] [address] [place], [place] [phone] [facility] * Basic Metabolic Panel (09/17/2018 5:09 AM FIELD IRRIGATION WORKER) Only the most recent of 10 results within the time period is included. Sodium 136 136 - 145 meq/L [facility] Potassium 4.3 3.5 - 5.1 meq/L [facility] Chloride 99 98 - 107 meq/L [facility] CO2 29 22 - 29 meq/L [facility] BUN 38 (H) 7 - 21 mg/dL [facility] Creatinine 7.60 (H) 0.57 - 1.25 mg/dL [facility] Glucose 124 (H) 70 - 105 mg/dL [facility] Calcium 10.2 8.4 - 10.2 mg/dL [facility] EGFR 6Comment: ESTIMATED GFR IS NOT mL/min/1.73 sq m [facility] ACCURATE CREATININE [facility] CLEARANCE IN PREDICTING GLOMERULAR FILTRATION RATE. ESTIMATED GFR IS NOT APPLICABLE FOR DIALYSIS PATIENTS. Specimen Blood Performing Organization Address City/[facility]/Zipcode Phone Number [facility] [address] [place] [address] [facility] * Blood Culture - Routine (Left Venipuncture) (09/14/2018 6:43 AM FIELD IRRIGATION WORKER) Only the most recent of 2 results within the time period is included. Result No growth in 5 days [facility] Specimen Blood Performing Organization Address City/State/Zipcode Phone Number [facility] [address] [place] [address] [facility] * HEMODIALYSIS INPATIENT (09/12/2018 1:00 PM FIELD IRRIGATION WORKER) Narrative Performed At Alyson Stoddard RN 09/12/20181:55 [...] SERVICE REPORT - SCAN (09/11/2018 6:01 PM FIELD IRRIGATION WORKER) Narrative Performed At * PT/aPTT (09/11/2018 4:56 AM FIELD IRRIGATION WORKER) Only the most recent of 3 results within the time period is included. Protime 14.3 11.7 - 14.7 seconds [facility] INR 1.1 <=5.9 [facility] PTT 39.3 (H) 22.5 - 36.0 seconds [facility] Specimen Blood Narrative Performed At RECOMMENDED COUMADIN/WARFARIN INR THERAPY RANGES [facility] STANDARD DOSE: 2.0 - 3.0 Includes: PROPHYLAXIS for venous thrombosis, [facility] systemic embolization; TREATMENT for venous thrombosis and/or pulmonary embolus. HIGH RISK: Target INR is 2.5-3.5 for patients with mechanical heart valves. Performing Organization Address City/State/Zipcode Phone Number [facility] [address] [place] [address] [facility] * Tissue Exam (09/10/2018 1:58 PM FIELD IRRIGATION WORKER) Only the most recent of 2 results within the time period is included. Case Report Surgical Pathology [facility] Report [facility] Case: [id number] Authorizing Provider:Goyo Haji, Collected: 09/10/2018 1358 Ordering Location: [facility] Received: 09/10/2018 1506 SERVICES Pathologist: Rajesh Lund MD Specimen:Foot, Left, LEFT FOREFOOT DIAGNOSIS FOOT, LEFT FOREFOOT, [facility] AMPUTATION [facility] - GANGRENOUS NECROSIS - DEFINITIVE ACUTE OSTEOMYELITIS NOT IDENTIFIED - FAT NECROSIS IN BONE MARROW UNDERLYING ULCER - SKIN, SOFT TISSUE AND BONE MARGINS VIABLE Signing Pathologist Direct Phone Line: [phone] CPT Code(s) 93927, 11077 [facility] CLINICAL HISTORY Gangrene [facility] SPECIMEN SOURCE Left forefoot [facility] GROSS DESCRIPTION The specimen is received in a [facility] formalin-filled container and [facility] labeled with the patient's information [...] 5th digit respectively. CG/pl MICROSCOPIC DESCRIPTION Performed. [facility] Specimen Tissue Performing Organization Address City/[facility] Phone Number [facility] [address] [place] [address] [facility] * Potassium-Stat Lab (09/10/2018 12:59 PM FIELD IRRIGATION WORKER) Potassium 3.7 3.6 - 5.5 meq/L [facility] Specimen Blood, Arterial Performing Organization Address City/[facility] Phone Number [facility] [address] [place] [address] [facility] * HEMODIALYSIS INPATIENT (09/10/2018 12:17 PM FIELD IRRIGATION WORKER) Narrative Performed At Jimbo Pardo RN 09/10/2018 [...] % sat. (without ferritin) (09/10/2018 10:37 AM FIELD IRRIGATION WORKER) Iron 20.0 (L) 40.0 - 160.0 ug/dL [facility] TIBC 150 (L) 250 - 450 ug/dL [facility] Iron % Saturation 13 (L) 20 - 55 % [facility] Specimen Blood Performing Organization Address City/State/Zipcode Phone Number [facility] [address] [place] [address] [facility] * Phosphorus (09/10/2018 10:37 AM FIELD IRRIGATION WORKER) Only the most recent of 4 results within the time period is included. Phosphorus 2.0 (L) 2.3 - 4.7 mg/dL [facility] Specimen Blood Performing Organization Address City/[facility] Phone Number [address] * Type and screen, automated (09/10/2018 2:46 AM FIELD IRRIGATION WORKER) ABO/RH AUTOMATED (BEAKER) B POSITIVE [facility] Ab Scrn NEGATIVE [facility] Specimen Blood Performing Organization Address City/[facility] Phone Number [address] * Hepatitis B surface antigen (09/09/2018 11:57 PM FIELD IRRIGATION WORKER) Only the most recent of 2 results within the time period is included. hepatitis B Surface Ag Nonreactive Nonreactive [facility] Specimen Blood Performing Organization Address City/[facility] Phone Number [address] * Magnesium (09/09/2018 11:57 PM FIELD IRRIGATION WORKER) Magnesium 1.6 1.6 - 2.6 mg/dL [facility] Specimen Blood Performing Organization Address [facility] Phone Number [address] * Hepatic function panel (09/09/2018 11:57 PM FIELD IRRIGATION WORKER) Protein, Total 7.0 6.0 - 8.3 gm/dL [facility] Albumin 3.1 (L) 3.5 - 5.0 g/dL [facility] Total Bilirubin 0.3 0.2 - 1.2 mg/dL [facility] Bilirubin, Direct 0.1 0.1 - 0.5 mg/dL [facility] Alkaline Phosphatase 64 40 - 150 U/L [facility] AST 7 5 - 34 U/L [facility] ALT <6 (L) 6 - 55 U/L [facility] Specimen Blood Performing Organization Address City/State/Zipcode Phone Number [facility] [address] [place] [address] [facility]ENTER * VASCULAR DIAGRAM -SCAN (09/05/2018 4:40 PM FIELD IRRIGATION WORKER) Only the most recent of 2 results within the time period is included. Narrative Performed At * CARDIAC CATH REPORT - SCAN (08/19/2018 9:10 AM FIELD IRRIGATION WORKER) Narrative Performed At * HEMODIALYSIS INPATIENT (07/26/2018 11:52 AM FIELD IRRIGATION WORKER) Narrative Performed At Harjinder Dan RN 07/26/2018 [...] distress. * HEMODIALYSIS INPATIENT (07/24/2018 7:50 PM FIELD IRRIGATION WORKER) Narrative Performed At Alyson Stoddard RN 07/24/20188:39 [...] Platelet Aggregation: Function Screen (07/24/2018 3:24 AM FIELD IRRIGATION WORKER) Weak ADP 37 (L) 60 - 91 % [facility] Plt. Function Screen 0-39% indicates marked [facility] Interpretation platelet dysfunction [facility] Pathologist: Soledad Vilchis MD (electronic [facility] signature) [facility] Platelets 235 150 - 430 K/CU MM [facility] Specimen Blood Narrative Performed At Platelet Function Screen results may be falsely low with platelet counts [facility] <100,000/cu mm. [facility] Performing Organization Address City/[facility]/[place] [address] [facility] * POC ACTIVATED CLOTTING TIME (07/23/2018 7:09 PM FIELD IRRIGATION WORKER) Only the most recent of 5 results within the time period is included. Activated Clotting Time 136Comment: TESTED AT [facility] sec [address] Specimen Blood Performing Organization Address City/[facility]/Zipcode [place] [address] [facility] * HEMODIALYSIS INPATIENT (07/22/2018 8:37 PM FIELD IRRIGATION WORKER) Narrative Performed At Romario Wolff RN 07/22/20188:40 [...] Clostridium difficile [facility] Toxin (07/21/2018 2:11 PM FIELD IRRIGATION WORKER) C. Difficle Toxin Negative Negative [facility] C. Difficile [facility] Antigen NegativeComment: No indication Negative [facility] of Clostridium difficile [facility] infection and no colonization. Discontinue enteric isolation and therapy. Specimen Stool Narrative Performed At Testing performed by [employer] Rapid Cassette Assay.For [facility], published [facility] sensitivity of the assay is 98.7% compared to cytotoxicity testing.For Toxin [facility], published sensitivity is 87.8% and specificity 99.4% compared to cytotoxicity testing. Verification of kit performance was done by the [facility] Microbiology Lab prior to clinical use. Performing Organization Address City/State/Zipcode Phone Number [facility] [phone] [place] [address] [facility] * HEMODIALYSIS INPATIENT (07/20/2018 7:18 PM FIELD IRRIGATION WORKER) Narrative Performed At Harjinder Dan RN 07/20/20187:20 [...] tolerated well. Pt awake and alert. after 01/18/2018 Insurance Payer Benefit Subscriber ID Type Phone Address Plan / Group [id number] [facility] xxxxxxxxxxx MEDICARE ADV Advance Directives For more information, please contact: [address] [address] Date Inactivated Comments Code Status [...]
[2019-01-19 04:54] LABS: BASOPHILS % 0.1 % (0.0-1.0); EOSINOPHILS # (AUTO) 0.1 (0.0-0.4); EOSINOPHILS % 1.5 % (0.0-6.0); HEMATOCRIT 37.4 % (34.2-44.1); HEMOGLOBIN 11.7 g/dL (12.0-16.0); LYMPHOCYTES # (AUTO) 1.4 (1.0-3.2); LYMPHOCYTES % 18.5 % (18.0-39.1); MEAN CORPUSCULAR HEMOGLOBIN 28.7 pg (28-32); MEAN CORPUSCULAR HGB CONC 31.3 g/dL (31-35); MEAN CORPUSCULAR VOLUME 91.7 fL (81-99); MONOCYTES # (AUTO) 0.7 (0.2-0.8); MONOCYTES % 8.9 % (4.4-11.3); NEUTROPHILS # (AUTO) 5.5 (2.1-6.9); NEUTROPHILS % 70.6 % (38.7-80.0); PLATELET COUNT 286 x10e3/uL (140-360); RED BLOOD COUNT 4.08 x10e6/uL (3.6-5.1); RED CELL DISTRIBUTION WIDTH 17.3 % (11.7-14.4)
[2019-01-19] MEDS ORDERED: DIATRIZOATE MEGL/DIATRIZOA SOD 30 ML BTL PO ONE (05:07)
[2019-01-19 05:13] LABS: ALBUMIN/GLOBULIN RATIO 0.7 (0.8-2.0); ANION GAP 19.5 mmol/L (8-16); CALCIUM 8.6 mg/dL (8.4-10.2); CREATININE, SERUM 6.97 mg/dL (0.57-1.11)
[2019-01-19 05:16] LABS: POTASSIUM 4.5 mmol/L (3.5-5.1)
[2019-01-19 05:17] LABS: AMYLASE 87 U/L (25-125); LIPASE 91 U/L (8-78)
--- NOTE | 2019-01-19 07:02 | Diagnostic Imaging Report ---
CT Abdomen and Pelvis without contrast INDICATION: Loss of appetite, pain, diarrhea TECHNIQUE: Thin collimation axial images obtained from the diaphragm to the level of the pubic symphysis without nonionic intravenous contrast. Dose reduction techniques used: Automated exposure control, adjustment of the mAs and/or kVp according to patient size, standardized low-dose protocol, and/or iterative reconstruction technique. RADIATION DOSE: Total DLP: 817.98 mGy*cm Estimated effective dose: (DLP x 0.015 x size factor) mSv CTDIvol has been reviewed. It is below the limits set by the Radiation Protocol Committee (RPC). COMPARISON: None. ABDOMEN FINDINGS: Lung Bases: Bibasilar atelectasis. The heart is mildly enlarged. The descending thoracic aorta is tortuous. The blood pool is diminished suggestive of anemia. Liver: Normal in attenuation without mass. Gallbladder: Present and appears normal. No ductal dilatation. Pancreas: Normal attenuation without mass. Spleen: Normal size without mass. Adrenal Glands: Diffuse thickening of the right adrenal gland without mass. Thickening of the left adrenal gland with isoattenuating nodule in the apex measuring 14 mm. Kidneys: Right: No renal calculus. A cyst in the posterior cortex measures 2.8 cm. An exophytic cyst in the medial lower pole measures 2.3 cm. No hydronephrosis. Left: Diminutive. No cortical mass. No hydronephrosis. Lymph Nodes: Multiple subcentimeter periaortic lymph nodes, nonspecific. There is haziness of the small bowel mesentery without lymphadenopathy. Aorta: Diffusely calcified and normal in diameter. There are calcifications throughout the visceral arteries. PELVIS FINDINGS: Bowel: Stomach: Normal. Small Bowel: Enteric contrast present throughout. No wall thickening or dilatation. Large Bowel: Enteric contrast present throughout. Diverticulosis coli with inflammation at the junction of the descending colon and proximal sigmoid colon. No loculated fluid collection. Prominent stool ball in the rectum. The cecum is low-lying in the pelvis. Appendix: Not visualized. Bladder: Underdistended. The uterus is absent. There are no adnexal masses. Peritoneum/retroperitoneum: No free fluid or free air Soft tissues: Mild subcutaneous edema. A fat-containing umbilical hernia measures 2 cm. There is lipoma in the proximal left thigh measuring 4.7 cm Bones: Mild degenerative changes of the spine. No compression deformities. IMPRESSION: 1. Acute diverticulitis. No evidence of abscess or perforation. No bowel obstruction. Large stool ball in the rectum. No evidence of stercoral proctitis. 2. Bilateral adrenal hyperplasia. Potential left adrenal nodule. This could be confirmed with CT dedicated to the adrenal glands. 3. Bilateral renal cysts. Signed by: Dr. Tracy Hong MD on 01/19/2019 6:59 AM
[2019-01-19 07:12] VITALS: BP 161/79
--- NOTE | 2019-01-19 07:15 | NUR ---
transportation home arranged through [facility]
--- NOTE | 2019-01-19 08:00 | NUR ---
[facility] arrived to [employer] pt
== END 2019-01-19 08:20 | disposition home or self-care (01) ==
LOC: ER 04:34
DX: R19.7 Diarrhea, unspecified (principal); K57.32 Diverticulitis of large intestine without perforation or abscess without bleeding; I12.0 Hypertensive chronic kidney disease with stage 5 chronic kidney disease or end stage renal disease; E11.22 Type 2 diabetes mellitus with diabetic chronic kidney disease; N18.6 End stage renal disease; Z99.2 Dependence on renal dialysis; Z89.432 Acquired absence of left foot; F31.9 Bipolar disorder, unspecified
CPT/HCPCS: 36415; 74176; 80053; 82150; 83690; 85025; 99284

== ENCOUNTER 2019-04-11 10:54 | Emergency (ER) | payer MEDICARE ==
[~2019-04-11] VITALS: Ht 167.6 cm; Wt 103.4 kg
--- OUTSIDE RECORDS SUMMARY | 2019-04-11 10:57 | XMS REPORT | Clinical Summary ---
Author Author YADIEL [facility] Address Unknown Phone Unavailable Care Team Providers Care Peritoneal Dialysis Registered Nurse Name Role Phone Tl Patel PCP Allergies [...] strength vitamin D (around 01/02/14), start taking vlfg-eyv-cgdw ter vitamin D3 2000 units daily.. Active [...] 0 capsule daily . 09/09/2018 Discontinued omega 0-xys-osq-fish oil Take 6 0 (FISH OIL) 1,000 [...] EVERY DAY. 09/09/[address]-shark Place 0 eob-yxxa-byy rectally as (HEMORRHOIDAL) Crea needed. 09/09/2018 Discontinued [...] 09/10/2018 Surgery Juan J Ocasio MD 09/09/2018 [facility] Internal [facility] - Encounter 09/17/2018 09/09/2018 Travel Goyo Haji MD AMPUTATION,TOE 07/25/2018 Surgery Suresh Roberts MD 07/25/2018 Anesthesia Event Jonathan Wood MD PERIPHERAL ANGIOS / AORTOGRAM 07/23/2018 Surgery 07/20/2018 Travel Jr Lala MD [facility], Fely Acevedo MD 07/19/2018 [facility] Cardiology - Encounter 07/27/2018 Bakari Cuenca MD Hemorrhoids, unspecified hemorrhoid type (Primary Dx); Essential hypertension; ESRD (end stage renal disease) (HCC); Simple chronic bronchitis (HCC) 05/18/2018 Emergency Emergency Medicine 05/18/2018 Travel after 04/10/2018 Social History Date Tobacco Use Types Packs/Day [...] Taken Vital Sign Reading 09/17/2018 3:17 PM LITHARGE SUPERVISOR Blood Pressure 136/62 09/17/2018 3:17 PM LITHARGE SUPERVISOR Pulse 76 09/17/2018 3:17 PM LITHARGE SUPERVISOR Temperature 35.8 C (96.4 F) 09/17/2018 3:17 PM LITHARGE SUPERVISOR Respiratory Rate 20 09/17/2018 3:17 PM LITHARGE SUPERVISOR Oxygen Saturation 98% - Inhaled Oxygen - Concentration 09/17/2018 8:45 AM LITHARGE SUPERVISOR Weight 104.7 kg (230 lb 13.2 oz) 09/09/2018 9:34 PM LITHARGE SUPERVISOR Height 167.6 cm (5' 6") 09/17/2018 8:45 AM LITHARGE SUPERVISOR Body Mass Index 37.26 Plan of Treatment Health Maintenance Due Date Last Done Comments HEMOGLOBIN A1C 09/10/2018 03/29/2015, 01/18/2015 Procedures Comments Procedure Name Priority Date/Time Associated Diagnosis RHYTHM STRIP - SCAN 09/20/2018 10:00 AM LITHARGE SUPERVISOR POCT-GLUCOSE METER Routine 09/17/2018 2:43 PM LITHARGE SUPERVISOR HEMODIALYSIS INPATIENT Routine 09/17/2018 1:30 PM LITHARGE SUPERVISOR POCT-GLUCOSE METER Routine 09/17/2018 12:50 PM LITHARGE SUPERVISOR POCT-GLUCOSE METER Routine 09/17/2018 8:19 AM LITHARGE SUPERVISOR CBC W/PLT COUNT & AUTO Routine 09/17/2018 DIFFERENTIAL 5:09 AM LITHARGE SUPERVISOR BASIC METABOLIC PANEL (7) Routine 09/17/2018 5:09 AM LITHARGE SUPERVISOR CBC W/PLT COUNT & AUTO Routine 09/17/2018 DIFFERENTIAL 5:09 AM LITHARGE SUPERVISOR POCT-GLUCOSE METER Routine 09/16/2018 9:36 PM LITHARGE SUPERVISOR POCT-GLUCOSE METER Routine 09/16/2018 5:57 PM LITHARGE SUPERVISOR POCT-GLUCOSE METER Routine 09/16/2018 12:15 PM LITHARGE SUPERVISOR POCT-GLUCOSE METER Routine 09/16/2018 8:07 AM LITHARGE SUPERVISOR POCT-GLUCOSE METER Routine 09/15/2018 9:27 PM LITHARGE SUPERVISOR POCT-GLUCOSE METER Routine 09/15/2018 4:30 PM LITHARGE SUPERVISOR POCT-GLUCOSE METER Routine 09/15/2018 11:42 AM LITHARGE SUPERVISOR POCT-GLUCOSE METER Routine 09/15/2018 9:31 AM LITHARGE SUPERVISOR POCT-GLUCOSE METER Routine 09/14/2018 9:22 PM LITHARGE SUPERVISOR HEMODIALYSIS INPATIENT Routine 09/14/2018 6:47 PM LITHARGE SUPERVISOR BASIC METABOLIC PANEL (7) Routine 09/14/2018 4:09 PM LITHARGE SUPERVISOR POCT-GLUCOSE METER Routine 09/14/2018 12:50 PM LITHARGE SUPERVISOR POCT-GLUCOSE METER Routine 09/14/2018 8:56 AM LITHARGE SUPERVISOR BLOOD CULTURE STAT 09/14/2018 6:43 AM LITHARGE SUPERVISOR CBC W/PLT COUNT & AUTO Routine 09/14/2018 DIFFERENTIAL 6:42 AM LITHARGE SUPERVISOR CBC W/PLT COUNT & AUTO Routine 09/14/2018 DIFFERENTIAL 6:42 AM LITHARGE SUPERVISOR POCT-GLUCOSE METER Routine 09/13/2018 8:57 PM LITHARGE SUPERVISOR BLOOD CULTURE STAT 09/13/2018 8:40 PM LITHARGE SUPERVISOR POCT-GLUCOSE METER Routine 09/13/2018 6:55 PM LITHARGE SUPERVISOR POCT-GLUCOSE METER Routine 09/13/2018 12:54 PM LITHARGE SUPERVISOR POCT-GLUCOSE METER Routine 09/13/2018 8:10 AM LITHARGE SUPERVISOR CBC W/PLT COUNT & AUTO Routine 09/13/2018 DIFFERENTIAL 4:59 AM LITHARGE SUPERVISOR CBC W/PLT COUNT & AUTO Routine 09/13/2018 DIFFERENTIAL 4:59 AM LITHARGE SUPERVISOR POCT-GLUCOSE METER Routine 09/12/2018 9:36 PM LITHARGE SUPERVISOR POCT-GLUCOSE METER Routine 09/12/2018 5:46 PM LITHARGE SUPERVISOR POCT-GLUCOSE METER Routine 09/12/2018 4:07 PM LITHARGE SUPERVISOR HEMODIALYSIS INPATIENT Routine 09/12/2018 1:00 PM LITHARGE SUPERVISOR POCT-GLUCOSE METER Routine 09/12/2018 7:20 AM LITHARGE SUPERVISOR CBC W/PLT COUNT & AUTO Routine 09/12/2018 DIFFERENTIAL 4:51 AM LITHARGE SUPERVISOR BASIC METABOLIC PANEL (7) Routine 09/12/2018 4:51 AM LITHARGE SUPERVISOR CBC W/PLT COUNT & AUTO Routine 09/12/2018 DIFFERENTIAL 4:51 AM LITHARGE SUPERVISOR POCT-GLUCOSE METER Routine 09/11/2018 9:08 PM LITHARGE SUPERVISOR POCT-GLUCOSE METER Routine 09/11/2018 6:18 PM LITHARGE SUPERVISOR TRANSFUSION SERVICE 09/11/2018 REPORT - SCAN 6:01 PM LITHARGE SUPERVISOR POCT-GLUCOSE METER Routine 09/11/2018 1:00 PM LITHARGE SUPERVISOR POCT-GLUCOSE METER Routine 09/11/2018 9:13 AM LITHARGE SUPERVISOR CBC W/PLT COUNT & AUTO Routine 09/11/2018 DIFFERENTIAL 4:56 AM LITHARGE SUPERVISOR BASIC METABOLIC PANEL (7) Routine 09/11/2018 4:56 AM LITHARGE SUPERVISOR CBC W/PLT COUNT & AUTO Routine 09/11/2018 DIFFERENTIAL 4:56 AM LITHARGE SUPERVISOR PT/APTT Routine 09/11/2018 4:56 AM LITHARGE SUPERVISOR POCT-GLUCOSE METER Routine 09/10/2018 9:57 PM LITHARGE SUPERVISOR POCT-GLUCOSE METER Routine 09/10/2018 7:00 PM LITHARGE SUPERVISOR POCT-GLUCOSE METER Routine 09/10/2018 5:10 PM LITHARGE SUPERVISOR TISSUE EXAM AP Routine 09/10/2018 1:58 PM LITHARGE SUPERVISOR POTASSIUM-STAT LAB STAT 09/10/2018 12:59 PM LITHARGE SUPERVISOR AMPUTATION,FOOT 09/10/2018 Gangrene (HCC) 12:20 PM LITHARGE SUPERVISOR Case Notes 2 HRS PER CRISTIAN ENCISO BY CINDY TO POST @ 1/LUIS 09/09 @ 1:54 HEMODIALYSIS INPATIENT Routine 09/10/2018 12:17 PM LITHARGE SUPERVISOR IRON, TIBC, % SAT. Routine 09/10/2018 (WITHOUT FERRITIN) 10:37 AM LITHARGE SUPERVISOR PHOSPHORUS Routine 09/10/2018 10:37 AM LITHARGE SUPERVISOR TYPE AND SCREEN, STAT 09/10/2018 AUTOMATED 2:46 AM LITHARGE SUPERVISOR PT/APTT Routine 09/10/2018 2:46 AM LITHARGE SUPERVISOR CBC W/PLT COUNT & AUTO STAT 09/09/2018 DIFFERENTIAL 11:57 PM LITHARGE SUPERVISOR HEPATITIS B SURFACE Routine 09/09/2018 ANTIGEN 11:57 PM LITHARGE SUPERVISOR CBC W/PLT COUNT & AUTO STAT 09/09/2018 DIFFERENTIAL 11:57 PM LITHARGE SUPERVISOR MAGNESIUM STAT 09/09/2018 11:57 PM LITHARGE SUPERVISOR HEPATIC FUNCTION PANEL STAT 09/09/2018 11:57 PM LITHARGE SUPERVISOR BASIC METABOLIC PANEL (7) STAT 09/09/2018 11:57 PM LITHARGE SUPERVISOR POCT-GLUCOSE METER Routine 09/09/2018 11:12 PM LITHARGE SUPERVISOR VASCULAR DIAGRAM -SCAN 09/05/2018 4:40 PM LITHARGE SUPERVISOR VASCULAR DIAGRAM -SCAN 08/19/2018 9:10 AM LITHARGE SUPERVISOR RHYTHM STRIP - SCAN 08/19/2018 9:10 AM LITHARGE SUPERVISOR CARDIAC CATH REPORT - 08/19/2018 SCAN 9:10 AM LITHARGE SUPERVISOR POCT-GLUCOSE METER Routine 07/27/2018 12:42 PM LITHARGE SUPERVISOR POCT-GLUCOSE METER Routine 07/27/2018 9:08 AM LITHARGE SUPERVISOR POCT-GLUCOSE METER Routine 07/26/2018 9:29 PM LITHARGE SUPERVISOR POCT-GLUCOSE METER Routine 07/26/2018 5:55 PM LITHARGE SUPERVISOR POCT-GLUCOSE METER Routine 07/26/2018 12:10 PM LITHARGE SUPERVISOR HEMODIALYSIS INPATIENT Routine 07/26/2018 11:52 AM LITHARGE SUPERVISOR BASIC METABOLIC PANEL (7) Routine 07/26/2018 8:19 AM LITHARGE SUPERVISOR POCT-GLUCOSE METER Routine 07/25/2018 9:49 PM LITHARGE SUPERVISOR POCT-GLUCOSE METER Routine 07/25/2018 6:02 PM LITHARGE SUPERVISOR POCT-GLUCOSE METER Routine 07/25/2018 1:37 PM LITHARGE SUPERVISOR TISSUE EXAM AP Routine 07/25/2018 1:05 PM LITHARGE SUPERVISOR AMPUTATION,TOE 07/25/2018 Gangrene of toe (HCC) 1:01 PM LITHARGE SUPERVISOR POCT-GLUCOSE METER Routine 07/25/2018 8:06 AM LITHARGE SUPERVISOR POCT-GLUCOSE METER Routine 07/24/2018 11:08 PM LITHARGE SUPERVISOR HEMODIALYSIS INPATIENT Routine 07/24/2018 7:50 PM LITHARGE SUPERVISOR PHOSPHORUS Routine 07/24/2018 4:17 PM LITHARGE SUPERVISOR POCT-GLUCOSE METER Routine 07/24/2018 12:33 PM LITHARGE SUPERVISOR POCT-GLUCOSE METER Routine 07/24/2018 7:31 AM LITHARGE SUPERVISOR CBC W/PLT COUNT & AUTO Routine 07/24/2018 DIFFERENTIAL 3:24 AM LITHARGE SUPERVISOR CBC W/PLT COUNT & AUTO Routine 07/24/2018 DIFFERENTIAL 3:24 AM LITHARGE SUPERVISOR BASIC METABOLIC PANEL (7) Routine 07/24/2018 3:24 AM LITHARGE SUPERVISOR PLATELET AGGREGATION: AP Routine 07/24/2018 FUNCTION SCREEN 3:24 AM LITHARGE SUPERVISOR POCT-GLUCOSE METER Routine 07/23/2018 9:20 PM LITHARGE SUPERVISOR POCT-ACT Routine 07/23/2018 7:09 PM LITHARGE SUPERVISOR POCT-GLUCOSE METER Routine 07/23/2018 6:32 PM LITHARGE SUPERVISOR POCT-ACT Routine 07/23/2018 5:47 PM LITHARGE SUPERVISOR POCT-ACT Routine 07/23/2018 4:42 PM LITHARGE SUPERVISOR POCT-ACT Routine 07/23/2018 2:38 PM LITHARGE SUPERVISOR POCT-GLUCOSE METER Routine 07/23/2018 1:25 PM LITHARGE SUPERVISOR POCT-ACT Routine 07/23/2018 10:13 AM LITHARGE SUPERVISOR PERIPHERAL ANGIOS / 07/23/2018 Peripheral arterial AORTOGRAM 9:15 AM LITHARGE SUPERVISOR disease (HCC) Case Notes (2) CASE 1830 POCT-GLUCOSE METER Routine 07/23/2018 6:42 AM LITHARGE SUPERVISOR POCT-GLUCOSE METER Routine 07/22/2018 9:21 PM LITHARGE SUPERVISOR HEMODIALYSIS INPATIENT Routine 07/22/2018 8:37 PM LITHARGE SUPERVISOR CBC W/PLT COUNT & AUTO Routine 07/22/2018 DIFFERENTIAL 4:08 PM LITHARGE SUPERVISOR PHOSPHORUS Routine 07/22/2018 4:08 PM LITHARGE SUPERVISOR BASIC METABOLIC PANEL (7) Routine 07/22/2018 4:08 PM LITHARGE SUPERVISOR CBC W/PLT COUNT & AUTO Routine 07/22/2018 DIFFERENTIAL 4:08 PM LITHARGE SUPERVISOR POCT-GLUCOSE METER Routine 07/22/2018 11:33 AM LITHARGE SUPERVISOR POCT-GLUCOSE METER Routine 07/21/2018 9:06 PM LITHARGE SUPERVISOR POCT-GLUCOSE METER Routine 07/21/2018 4:10 PM LITHARGE SUPERVISOR C. DIFFICILE GDH TOXIN Routine 07/21/2018 2:11 PM LITHARGE SUPERVISOR POCT-GLUCOSE METER Routine 07/21/2018 11:28 AM LITHARGE SUPERVISOR POCT-GLUCOSE METER Routine 07/21/2018 7:46 AM LITHARGE SUPERVISOR POCT-GLUCOSE METER Routine 07/20/2018 9:21 PM LITHARGE SUPERVISOR HEMODIALYSIS INPATIENT Routine 07/20/2018 7:18 PM LITHARGE SUPERVISOR POCT-GLUCOSE METER Routine 07/20/2018 4:42 PM LITHARGE SUPERVISOR HEPATITIS B SURFACE Routine 07/20/2018 ANTIGEN 2:58 PM LITHARGE SUPERVISOR PHOSPHORUS Routine 07/20/2018 2:58 PM LITHARGE SUPERVISOR POCT-GLUCOSE METER Routine 07/20/2018 11:33 AM LITHARGE SUPERVISOR POCT-GLUCOSE METER Routine 07/20/2018 7:53 AM LITHARGE SUPERVISOR CBC W/PLT COUNT & AUTO Routine 07/20/2018 DIFFERENTIAL 6:02 AM LITHARGE SUPERVISOR BASIC METABOLIC PANEL (7) Routine 07/20/2018 6:02 AM LITHARGE SUPERVISOR CBC W/PLT COUNT & AUTO Routine 07/20/2018 DIFFERENTIAL 6:02 AM LITHARGE SUPERVISOR POCT-GLUCOSE METER Routine 07/19/2018 8:27 PM LITHARGE SUPERVISOR CBC W/PLT COUNT & AUTO STAT 05/18/2018 DIFFERENTIAL 11:32 AM CDT BASIC METABOLIC PANEL (7) STAT 05/18/2018 11:32 AM CDT CBC W/PLT COUNT & AUTO STAT 05/18/2018 DIFFERENTIAL 11:32 AM CDT PT/APTT STAT 05/18/2018 11:32 AM CDT after 04/10/2018 Results * RHYTHM STRIP - SCAN (09/20/2018 10:00 AM LITHARGE SUPERVISOR) Only the most recent of 2 results within the time period is included. Narrative Performed At * POC-Glucose meter (09/17/2018 2:43 PM LITHARGE SUPERVISOR) Only the most recent of 57 results within the time period is included. POC-Glucose Meter 192 (H)Comment: TESTED AT 70 - 110 mg/dL [facility] [address] [place] [id number] Specimen Blood Performing Organization Address City/State/Zipcode Phone Number [address] [phone] [facility] * HEMODIALYSIS INPATIENT (09/17/2018 1:30 PM LITHARGE SUPERVISOR) Narrative Performed At Alyson Stoddard RN 09/17/20181:54 [...] count + automated diff (09/17/2018 5:09 AM LITHARGE SUPERVISOR) Only the most recent of 10 results within the time period is included. WBC 5.9 3.5 - 10.5 K/L [facility] RBC 3.20 (L) 3.93 - 5.22 M/L [facility] Hemoglobin 8.3 (L) 11.2 - 15.7 GM/DL [facility] Hematocrit 29.5 (L) 34.1 - 44.9 % [facility] MCV 92.2 79.4 - 94.8 fL [facility] MCH 25.9 25.6 - 32.2 pg [facility] MCHC 28.1 (L) 32.2 - 35.5 GM/DL [facility] RDW 15.4 (H) 11.7 - 14.4 % [facility] Platelets 247 150 - 450 K/CU MM [facility] MPV 10.7 9.4 - 12.3 fL [facility] nRBC 0 0 - 0 /100 WBC [facility] % Neutros 68 % [facility] % Lymphs 19 % [facility] % Monos 10 % [facility] % Eos 2 % [facility] % Baso 0 % [facility] # Neutros 4.01 1.56 - 6.13 K/L [facility] # Lymphs 1.10 (L) 1.18 - 3.74 K/L [facility] # Monos 0.61 (H) 0.24 - 0.36 K/L [facility] # Eos 0.13 0.04 - 0.36 K/L [facility] # Baso 0.01 0.01 - 0.08 K/L [facility] Immature 0 0 - 1 % [facility] Granulocytes-Relative [facility] Specimen Blood Performing Organization Address City/State/Zipcode Phone Number [facility] [address] [place] [address] [facility] * Basic Metabolic Panel (09/17/2018 5:09 AM LITHARGE SUPERVISOR) Only the most recent of 10 results within the time period is included. Sodium 136 136 - 145 meq/L [facility] Potassium 4.3 3.5 - 5.1 meq/L [facility] Chloride 99 98 - 107 meq/L [facility] CO2 29 22 - 29 meq/L [facility] BUN 38 (H) 7 - 21 mg/dL [facility] Creatinine 7.60 (H) 0.57 - 1.25 mg/dL [facility] Glucose 124 (H) 70 - 105 mg/dL [facility] Calcium 10.2 8.4 - 10.2 mg/dL [facility] EGFR 6Comment: ESTIMATED GFR IS NOT mL/min/1.73 sq m [facility] ACCURATE CREATININE [facility] CLEARANCE IN PREDICTING GLOMERULAR FILTRATION RATE. ESTIMATED GFR IS NOT APPLICABLE FOR DIALYSIS PATIENTS. Specimen Blood Performing Organization Address City/[facility]/Zipcode Phone Number [facility] [address] [place] [address] [facility] * Blood Culture - Routine (Left Venipuncture) (09/14/2018 6:43 AM LITHARGE SUPERVISOR) Only the most recent of 2 results within the time period is included. Result No growth in 5 days [facility] Specimen Blood Performing Organization Address City/State/Zipcode Phone Number [facility] [address] [place], [place] [phone] [facility] * HEMODIALYSIS INPATIENT (09/12/2018 1:00 PM LITHARGE SUPERVISOR) Narrative Performed At Alyson Stoddard RN 09/12/20181:55 [...] SERVICE REPORT - SCAN (09/11/2018 6:01 PM LITHARGE SUPERVISOR) Narrative Performed At * PT/aPTT (09/11/2018 4:56 AM LITHARGE SUPERVISOR) Only the most recent of 3 results within the time period is included. Protime 14.3 11.7 - 14.7 seconds [facility] INR 1.1 <=5.9 [facility] PTT 39.3 (H) 22.5 - 36.0 seconds [facility] Specimen Blood Narrative Performed At RECOMMENDED COUMADIN/WARFARIN INR THERAPY RANGES [facility] STANDARD DOSE: 2.0 - 3.0 Includes: PROPHYLAXIS for venous thrombosis, [facility] systemic embolization; TREATMENT for venous thrombosis and/or pulmonary embolus. HIGH RISK: Target INR is 2.5-3.5 for patients with mechanical heart valves. Performing Organization Address City/State/Zipcode Phone Number [facility] [address] [place] [address] [facility] * Tissue Exam (09/10/2018 1:58 PM LITHARGE SUPERVISOR) Only the most recent of 2 results within the time period is included. Case Report Surgical Pathology [facility] Report [facility] Case: [id number] Authorizing Provider:Goyo Haji, Collected: 09/10/2018 1358 Ordering Location: [facility] Received: 09/10/2018 1506 SERVICES Pathologist: Rajesh Lund MD Specimen:Foot, Left, LEFT FOREFOOT DIAGNOSIS FOOT, LEFT FOREFOOT, [facility] AMPUTATION [facility] - GANGRENOUS NECROSIS - DEFINITIVE ACUTE OSTEOMYELITIS NOT IDENTIFIED - FAT NECROSIS IN BONE MARROW UNDERLYING ULCER - SKIN, SOFT TISSUE AND BONE MARGINS VIABLE Signing Pathologist Direct Phone Line: [phone] CPT Code(s) 76106, [address] [facility] CLINICAL HISTORY Gangrene [facility] SPECIMEN SOURCE Left forefoot [facility] GROSS DESCRIPTION The specimen is received in a [facility] formalin-filled container and [facility] labeled with the patient's information and [...] 5th digit respectively. CG/pl MICROSCOPIC DESCRIPTION Performed. [facility] Specimen Tissue Performing Organization Address City/[facility]/Zipcode Phone Number [facility] [address] [place] [address] [facility] * Potassium-Stat Lab (09/10/2018 12:59 PM LITHARGE SUPERVISOR) Potassium 3.7 3.6 - 5.5 meq/L [facility] Specimen Blood, Arterial Performing Organization Address City/[facility]/Zipcode Phone Number [facility] [address] [place] [address] [facility] * HEMODIALYSIS INPATIENT (09/10/2018 12:17 PM LITHARGE SUPERVISOR) Narrative Performed At Jimbo Pardo RN 09/10/2018 [...] % sat. (without ferritin) (09/10/2018 10:37 AM LITHARGE SUPERVISOR) Iron 20.0 (L) 40.0 - 160.0 ug/dL [facility] TIBC 150 (L) 250 - 450 ug/dL [facility] Iron % Saturation 13 (L) 20 - 55 % [facility] Specimen Blood Performing Organization Address City/State/Zipcode Phone Number [facility] [address] [place] [address] [facility] * Phosphorus (09/10/2018 10:37 AM LITHARGE SUPERVISOR) Only the most recent of 4 results within the time period is included. Phosphorus 2.0 (L) 2.3 - 4.7 mg/dL [facility] Specimen Blood Performing Organization Address [facility] Phone Number [address] * Type and screen, automated (09/10/2018 2:46 AM LITHARGE SUPERVISOR) ABO/RH AUTOMATED (BEAKER) B POSITIVE [facility] Ab Scrn NEGATIVE [facility] Specimen Blood Performing Organization Address City/[facility] Phone Number [address] * Hepatitis B surface antigen (09/09/2018 11:57 PM LITHARGE SUPERVISOR) Only the most recent of 2 results within the time period is included. hepatitis B Surface Ag Nonreactive Nonreactive [facility] Specimen Blood Performing Organization Address City/[facility] Phone Number [address] * Magnesium (09/09/2018 11:57 PM LITHARGE SUPERVISOR) Magnesium 1.6 1.6 - 2.6 mg/dL [facility] Specimen Blood Performing Organization Address City/[facility] Phone Number [address] * Hepatic function panel (09/09/2018 11:57 PM LITHARGE SUPERVISOR) Protein, Total 7.0 6.0 - 8.3 gm/dL [facility] Albumin 3.1 (L) 3.5 - 5.0 g/dL [facility] Total Bilirubin 0.3 0.2 - 1.2 mg/dL [facility] Bilirubin, Direct 0.1 0.1 - 0.5 mg/dL [facility] Alkaline Phosphatase 64 40 - 150 U/L [facility] AST 7 5 - 34 U/L [facility] ALT <6 (L) 6 - 55 U/L [facility] Specimen Blood Performing Organization Address City/State/Zipcode Phone Number [facility] [address] [place] [address] [facility] * VASCULAR DIAGRAM -SCAN (09/05/2018 4:40 PM LITHARGE SUPERVISOR) Only the most recent of 2 results within the time period is included. Narrative Performed At * CARDIAC CATH REPORT - SCAN (08/19/2018 9:10 AM LITHARGE SUPERVISOR) Narrative Performed At * HEMODIALYSIS INPATIENT (07/26/2018 11:52 AM LITHARGE SUPERVISOR) Narrative Performed At Harjinder Dan RN 07/26/2018 [...] distress. * HEMODIALYSIS INPATIENT (07/24/2018 7:50 PM LITHARGE SUPERVISOR) Narrative Performed At Alyson Stoddard RN 07/24/20188:39 [...] Platelet Aggregation: Function Screen (07/24/2018 3:24 AM LITHARGE SUPERVISOR) Weak ADP 37 (L) 60 - 91 % [facility] Plt. Function Screen 0-39% indicates marked [facility] Interpretation platelet dysfunction [facility] Pathologist: Soledad Vilchis MD (electronic [facility] signature) [facility] Platelets 235 150 - 430 K/CU MM [facility] Specimen Blood Narrative Performed At Platelet Function Screen results may be falsely low with platelet counts [facility] <100,000/cu mm. [facility] Performing Organization Address City/[facility] [place] [address] [phone] [place] [address] * POC ACTIVATED CLOTTING TIME (07/23/2018 7:09 PM LITHARGE SUPERVISOR) Only the most recent of 5 results within the time period is included. Activated Clotting Time 136Comment: TESTED AT [facility] sec [address] Specimen Blood Performing Organization Address City/[facility]/[place] [address] [phone] [place] [address] * HEMODIALYSIS INPATIENT (07/22/2018 8:37 PM LITHARGE SUPERVISOR) Narrative Performed At Romario Wolff RN 07/22/20188:40 [...] Clostridium difficile GDH Toxin (07/21/2018 2:11 PM LITHARGE SUPERVISOR) C. Difficle Toxin Negative Negative [facility] C. Difficile GDH Antigen NegativeComment: No indication Negative [facility] of Clostridium difficile [facility] infection and no colonization. Discontinue enteric isolation and therapy. Specimen Stool Narrative Performed At Testing performed by [employer] Rapid Cassette Assay.For GDH, published [facility] sensitivity of the assay is 98.7% compared to cytotoxicity testing.For Toxin [facility] AB, published sensitivity is 87.8% and specificity 99.4% compared to cytotoxicity testing. Verification of kit performance was done by the [facility] Microbiology Lab prior to clinical use. 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 Pt awake and alert. after 04/10/2018 Insurance Payer Benefit Subscriber ID Type Phone Address Plan / Group [facility] [employer] xxxxxxxxxxx MEDICARE ADV Advance Directives For more information, please contact: [facility] [address] [place] [address] Date Inactivated Comments Code Status Date [...]
[2019-04-11 15:14] VITALS: BP 128/60
== END 2019-04-11 15:17 | disposition home or self-care (01) ==
LOC: ER 10:54
DX: K62.89 Other specified diseases of anus and rectum (principal); I12.0 Hypertensive chronic kidney disease with stage 5 chronic kidney disease or end stage renal disease; E11.22 Type 2 diabetes mellitus with diabetic chronic kidney disease; N18.6 End stage renal disease; Z99.2 Dependence on renal dialysis; J44.9 Chronic obstructive pulmonary disease, unspecified
CPT/HCPCS: 99282

== ENCOUNTER 2019-05-12 19:39 | Emergency (ER) | payer MEDICARE ==
[~2019-05-12] VITALS: Ht 167.6 cm; Wt 103.4 kg
--- NOTE | 2019-05-12 21:33 | Diagnostic Imaging Report ---
EXAM: Abdomen Radiograph 1 View INDICATION: Rectal pain, rule out impaction COMPARISON: Abdominal CT 01/19/2019 FINDINGS: No abnormalities in the lower chest. No lines or tubes. Significant stool burden in the colon, greater than that seen on abdominal CT 01/19/2019. Moderate stool burden in the colon. No dilated loops of small bowel. No abnormal abdominal calcifications.. No abnormal soft tissue masses. No pneumoperitoneum. No acute osseous abnormality. Advanced degenerative changes in the spine, hips, and pelvis. Omar project in the lower mid pelvis. IMPRESSION: Significant stool burden within the rectum, greater than that seen on 01/19/2019, and moderate stool burden in the colon. Fecal impaction is possible. Signed by: Kit Roldan DO on 05/12/2019 9:29 PM
[2019-05-12] MEDS ORDERED: LORAZEPAM INJ 2 MG/ML VIAL IM ONE (22:30)
[2019-05-13 00:34] VITALS: BP 149/53
--- NOTE | 2019-05-13 00:58 | Diagnostic Imaging Report ---
EXAM: Abdomen Radiograph 1 View) INDICATION: Repeat KUB following disimpaction COMPARISON: Abdominal radiograph 05/12/2019 FINDINGS: No abnormalities in the lower chest. No lines or tubes. Resolution of large stool burden in the rectum. Moderate volume of stool in the colon. No dilated loops of small bowel. Vascular calcifications. No abnormal soft tissue masses. No pneumoperitoneum. No acute osseous abnormality. Advanced degenerative changes in the spine, hips, and pelvis. IMPRESSION: Resolution of large stool burden in the rectum. Advanced degenerative changes in the spine hips and pelvis.. Signed by: Kit Roldan DO on 05/13/2019 12:55 AM
== END 2019-05-13 00:49 | disposition home or self-care (01) ==
LOC: ER 19:39
DX: K59.00 Constipation, unspecified (principal); I12.0 Hypertensive chronic kidney disease with stage 5 chronic kidney disease or end stage renal disease; E11.22 Type 2 diabetes mellitus with diabetic chronic kidney disease; N18.6 End stage renal disease; Z99.2 Dependence on renal dialysis; J44.9 Chronic obstructive pulmonary disease, unspecified; E78.5 Hyperlipidemia, unspecified; Z89.432 Acquired absence of left foot
CPT/HCPCS: 74018; 99283; J2060

== ENCOUNTER 2019-05-14 11:01 | Inpatient (IN) | payer MEDICARE ==
[~2019-05-14] VITALS: Ht 167.6 cm; Wt 94.3 kg
--- NOTE | 2019-05-14 | NUR ---
Patient refused enemas. notified Addendum: 05/15/19 at 0714 by Summer Camacho RN 05/15/19 0000 correct date and time
[2019-05-14 12:31] LABS: BASOPHILS % 0.3 % (0.0-1.0); EOSINOPHILS # (AUTO) 0.2 (0.0-0.4); EOSINOPHILS % 1.4 % (0.0-6.0); HEMATOCRIT 34.4 % (34.2-44.1); HEMOGLOBIN 10.6 g/dL (12.0-16.0); LYMPHOCYTES # (AUTO) 1.2 (1.0-3.2); LYMPHOCYTES % 10.5 % (18.0-39.1); MEAN CORPUSCULAR HEMOGLOBIN 29.6 pg (28-32); MEAN CORPUSCULAR HGB CONC 30.8 g/dL (31-35); MEAN CORPUSCULAR VOLUME 96.1 fL (81-99); MONOCYTES # (AUTO) 0.9 (0.2-0.8); MONOCYTES % 8.4 % (4.4-11.3); NEUTROPHILS # (AUTO) 8.8 (2.1-6.9); NEUTROPHILS % 78.6 % (38.7-80.0); PLATELET COUNT 393 x10e3/uL (140-360); RED BLOOD COUNT 3.58 x10e6/uL (3.6-5.1); RED CELL DISTRIBUTION WIDTH 16.7 % (11.7-14.4)
[2019-05-14] MEDS ORDERED: SODIUM CHLORIDE 0.9% 1000ML 1,000 ML ONE (12:32)
[2019-05-14] MEDS ORDERED: SODIUM CHLORIDE 0.9% 1000ML 1,000 ML IV ONE (12:45)
[2019-05-14 12:47] LABS: ALBUMIN 2.4 g/dL (3.5-5.0); ALBUMIN/GLOBULIN RATIO 0.5 (0.8-2.0); ANION GAP 19.6 mmol/L (8-16); CALCIUM 8.9 mg/dL (8.4-10.2); CREATININE, SERUM 6.13 mg/dL (0.57-1.11); MAGNESIUM 2.1 MG/DL (1.3-2.1); POTASSIUM 3.6 mmol/L (3.5-5.1)
[2019-05-14] MEDS ORDERED: DIATRIZOATE MEGL/DIATRIZOA SOD 30 ML BTL PO ONE (14:25)
--- NOTE | 2019-05-14 17:09 | Diagnostic Imaging Report ---
EXAM: CT Abdomen and Pelvis WITHOUT intravenous contrast INDICATION: Rectal pain COMPARISON: CT abdomen and pelvis of 01/19/2019 TECHNIQUE: Abdomen and pelvis were scanned utilizing a multidetector helical scanner from the lung base to the pubic symphysis without administration of IV contrast. Coronal and sagittal reformations were obtained. IV CONTRAST: None ORAL CONTRAST: Gastrografin COMPLICATIONS: None RADIATION DOSE: Total DLP: 848.4 mGy*cm Dose modulation, iterative reconstruction, and/or weight based adjustment of the mA/kV was utilized to reduce the radiation dose to as low as reasonably achievable. FINDINGS: LOWER THORAX: Bibasilar subsegmental atelectasis. Coronary artery calcifications. HEPATOBILIARY: No focal liver lesions. No biliary ductal dilation. Small radiopaque stones in the gallbladder. SPLEEN: No splenomegaly. PANCREAS: No focal masses or ductal dilatation. ADRENALS: Unchanged adrenal thickening with more focal 1.5 cm left adrenal nodule measuring 25HU. KIDNEYS/URETERS: Unchanged right midpole renal cyst. No hydronephrosis. Atrophic appearance of the left kidney. PELVIC ORGANS/BLADDER: Status post hysterectomy. PERITONEUM / RETROPERITONEUM: No free air or fluid. LYMPH NODES: No lymphadenopathy. VESSELS: Heavy diffuse athetotic calcifications of the nonaneurysmal abdominal aorta and major branches. GI TRACT: Large stool burden in the rectum. Again seen is prominent diverticulosis of the sigmoid colon with segmental wall thickening and pericolonic fat stranding associated with a cluster of diverticulum at the proximal sigmoid colon. This appears essentially unchanged from the prior study of 01/19/2019 at which point the patient had acute diverticulitis. No new bowel wall thickening or bowel obstruction. BONES AND SOFT TISSUES: No acute osseous injury. Diffuse osteopenia. No suspicious lytic or blastic lesions. Degenerative changes of the visualized spine and both hip joints. IMPRESSION: Large stool burden in the rectum. No significant change compared to 01/19/2019 in wall thickening and pericolonic fat stranding at the proximal sigmoid colon associated with severe diverticulosis. This may represent residual findings of prior acute diverticulitis versus a repeat episode of acute diverticulitis. Unchanged 1.5 cm left adrenal nodule. Recommend 1 year follow-up adrenal washout CT. If the lesion is stable at or greater than 1 year, no subsequent follow-up imaging is needed. Signed by: Gustavo Love MD on 05/14/2019 5:06 PM
[2019-05-14] MEDS ORDERED: DEXTROSE 50% SYRINGE 50 ML IV PRN (17:45)
[2019-05-14] MEDS ORDERED: MELATONIN 3 MG TAB PO PRN (19:00)
[2019-05-14] MEDS: CALCIUM ACETATE 667 MG GELCAP PO SCH (21:00)
[2019-05-14 21:48] VITALS: BP 190/96
--- NOTE | 2019-05-14 21:48 | NUR ---
Patient arrived from ER stretcher, awake, alert and able to make needs known. Patient with a diagnosis of rectal pain and impaction. POC discussed. She was instructed to call for assistance and verbalized understanding. Call cast within reach.
[2019-05-14 22:30] VITALS: BP 168/74
[2019-05-14] MEDS ORDERED: SOD PHOSPHATE/SOD BIPHOSPHATE ENEMA 132 ML BTL PR ONE (23:45)
[2019-05-15] VITALS (7 sets, daily range): BP systolic 140–176; BP diastolic 62–84
[2019-05-15] MEDS ORDERED: SOD PHOSPHATE/SOD BIPHOSPHATE ENEMA 132 ML BTL PR ONE (00:45)
[2019-05-15] MEDS ORDERED: PEG (High)/E-LYTE SOLN 4,000 ML BTL PO ONE (02:30)
[2019-05-15] MEDS ORDERED: BALSAM PERU/CASTOR OIL 60 GM OINT...G. TP PRN (03:45)
--- NOTE | 2019-05-15 04:30 | NUR ---
Patient with multiple liquid BM's after Golytely started. Patient's diaper changed and linda care done. call cast within reach.
[2019-05-15] MEDS: LEVOTHYROXINE SODIUM 75 MCG TAB PO SCH (05:07)
[2019-05-15] MEDS: LEVOTHYROXINE SODIUM 100 MCG TAB PO SCH (05:07)
[2019-05-15 05:47] LABS: BASOPHILS % 0.3 % (0.0-1.0); EOSINOPHILS # (AUTO) 0.3 (0.0-0.4); EOSINOPHILS % 2.7 % (0.0-6.0); HEMATOCRIT 32.1 % (34.2-44.1); HEMOGLOBIN 9.8 g/dL (12.0-16.0); LYMPHOCYTES # (AUTO) 1.7 (1.0-3.2); LYMPHOCYTES % 16.7 % (18.0-39.1); MEAN CORPUSCULAR HEMOGLOBIN 29.4 pg (28-32); MEAN CORPUSCULAR HGB CONC 30.5 g/dL (31-35); MEAN CORPUSCULAR VOLUME 96.4 fL (81-99); MONOCYTES # (AUTO) 1.1 (0.2-0.8); MONOCYTES % 11.1 % (4.4-11.3); NEUTROPHILS # (AUTO) 6.9 (2.1-6.9); NEUTROPHILS % 68.1 % (38.7-80.0); PLATELET COUNT 338 x10e3/uL (140-360); RED BLOOD COUNT 3.33 x10e6/uL (3.6-5.1); RED CELL DISTRIBUTION WIDTH 16.8 % (11.7-14.4)
[2019-05-15 06:14] LABS: ALBUMIN 2.2 g/dL (3.5-5.0); ALBUMIN/GLOBULIN RATIO 0.5 (0.8-2.0); CALCIUM 8.3 mg/dL (8.4-10.2); CREATININE, SERUM 7.16 mg/dL (0.57-1.11)
[2019-05-15 07:01] LABS: FREE THYROXINE INDEX 0.7797 (1.4-3.8); THYROID STIMULATING HORMONE 30.194 uIU/mL (0.350-4.940)
--- NOTE | 2019-05-15 08:25 | NUR ---
CALLED Patricia RODRÍGUEZ REGARDING CONTINUING DIALYSIS, LEFT MESSAGE.
--- NOTE | 2019-05-15 08:40 | NUR ---
CALLED [facility] OFFICE SPOKE TO ANSWERING SERVICE REGARDING CONTINUING DIALYSIS TODAY.
[2019-05-15] MEDS ORDERED: LEVOTHYROXINE SODIUM 75 MCG TAB PO SCH (09:00)
[2019-05-15] MEDS: FUROSEMIDE 40 MG TAB PO SCH ×2 (09:00→16:52)
[2019-05-15] MEDS: CARVEDILOL 3.125 MG TAB PO SCH ×2 (09:00→16:52)
[2019-05-15] MEDS: CILOSTAZOL 100 MG TAB PO SCH (09:00)
[2019-05-15] MEDS: NIFEDIPINE CR 30 MG TAB PO SCH (09:00)
[2019-05-15] MEDS: CALCIUM ACETATE 667 MG GELCAP PO SCH ×3 (09:00→21:08)
[2019-05-15] MEDS: CLOPIDOGREL BISULFATE 75 MG TAB PO SCH (09:00)
--- NOTE | 2019-05-15 09:22 | NUR ---
CALLED João PAL[facility] AGAIN OFFICE REGARDING RESTORTING DIALYSIS TODAY 2ND CALL.
[2019-05-15] MEDS ORDERED: SODIUM CHLORIDE 0.9% 1000ML 2,000 ML ONE (10:56)
[2019-05-15] MEDS ORDERED: LIDOCAINE/PRILOCAINE 2.5-2.5% KIT TOP ONE (11:00)
[2019-05-15] MEDS ORDERED: HYDRALAZINE HCL 20 MG/ML VIAL IV PRN (11:30)
[2019-05-15] MEDS ORDERED: DEXTROSE 50% SYRINGE 50 ML IV PRN (11:30)
[2019-05-15] MEDS: INSULIN REGULAR, HUMAN 100 UNIT/1 ML 3ML VIAL SQ SCH ×3 (11:30→20:59)
[2019-05-15] MEDS: DOCUSATE SODIUM 100 MG CAP PO SCH ×2 (13:24→16:52)
[2019-05-15] MEDS: HYDROCORTISONE 2.5% PR CRM 1 OZ TUBE PR SCH ×2 (13:25→16:49)
[2019-05-15] MEDS: ACETAMINOPHEN/CODEINE 300MG - 30MG TAB PO PRN (14:37)
--- NOTE | 2019-05-15 17:39 | Consultation ---
DATE OF CONSULTATION: 05/15/2019 HISTORY OF PRESENT ILLNESS: A 74-year-old black female, who is known to our Nephrology Service, dialyzes on Sunday, , and Saturdays at [facility]. Admitted with diarrhea, being worked up and due to get endoscopy. Scheduled for dialysis. Denies shortness of breath, nausea, or vomiting. Admits to diarrhea and abdominal discomfort. PAST MEDICAL HISTORY: Significant for hypertension, hypothyroidism, secondary hyperparathyroidism, anemia, chronic kidney disease, history of diverticulosis, history of peripheral vascular disease and ulceration in the foot. ALLERGIES: ATORVASTATIN AND PNEUMOCOCCAL VACCINE. MEDICATIONS: Currently on: 1. Calcium acetate Phoslo with meals. 2. Carvedilol 3.125 b.i.d. 3. Plendil 5 mg daily. 4. Plavix 75 mg daily. 5. Furosemide 40 mg b.i.d. 6. Levothyroxine 100 mcg daily. 7. Nifedipine 30 mg daily. SOCIAL HISTORY: Does not smoke or drink. FAMILY HISTORY: Significant for hypertension. PHYSICAL EXAMINATION: GENERAL: Awake, alert, and oriented x3, lying supine, in no apparent distress. VITAL SIGNS: Blood pressure of 162/76, pulse rate 96, afebrile, respiratory rate 17. HEAD AND NECK: Cornea clear. Mucosa moist. Neck veins flat. LUNGS: Relatively clear. HEART: S1, S2 audible. ABDOMEN: Soft, nontender. EXTREMITIES: Lower extremity examination shows no edema. LABORATORY DATA: Show potassium 4, bicarb 27, creatinine 7.1. LFT shows normal bilirubin. AST, ALT within normal range. Hemoglobin 9.8, platelet 338. IMPRESSION: End-stage renal disease. PLAN: Arranging hemodialysis. Continue with phosphorus binders. Volume status stable. Blood pressure elevated, now better with administration of blood pressure medications. Please see orders. MD ENID Mckoy/JONATHAN /[id number]
--- NOTE | 2019-05-15 17:59 | History and Physical ---
PRIMARY CARE PHYSICIAN: Dr. Patel with [facility] CHIEF COMPLAINT: Rectal pain. HISTORY OF PRESENT ILLNESS: This is a 74-year-old female, who presented to the ER with complaints of severe rectal pain. According to the patient, she has history of diverticulitis and has had diarrhea and has been having rectal pain due to constant diarrhea and bowel movements. Upon arrival to the ER, she reported having constipation. CAT scan of the abdomen showed large stool burden in the rectum with history of severe diverticulosis. She denies any abdominal pain, chest pain, nausea, vomiting, dysuria, or melena. We will admit the patient for further evaluation of the rectal pain, unable to do a rectal exam due to severe pain. PAST MEDICAL HISTORY: 1. Hypertension. 2. Diabetes. 3. COPD. 4. Congestive heart failure. 5. Hypothyroidism. 6. ESRD, on dialysis, Sunday, , and Sunday. 7. Chronic anemia. 8. Bipolar. SURGICAL HISTORY: 1. AV graft for dialysis. 2. Hysterectomy. FAMILY MEDICAL HISTORY: Both mother and father had heart disease. SOCIAL HISTORY: She denies any tobacco, alcohol, or drug use. ALLERGIES: SHE IS ALLERGIC TO ATORVASTATIN AND PNEUMOCOCCAL VACCINES. REVIEW OF SYSTEMS: GENERAL: Fatigue. HEENT: No mouth sores. LUNGS: No shortness of breath or cough. CARDIOVASCULAR: No chest pain or palpitations. GI: Rectal pain and constipation. NEUROLOGIC: Alert and awake. MUSCULOSKELETAL: Moves extremities. SKIN: And intact. PHYSICAL EXAMINATION: VITAL SIGNS: Temperature 98.0, pulse is 78, respirations 20, blood pressure 162/76, and pulse ox is 96% on room air. GENERAL: Fatigued, but in no acute distress. HEENT: Normocephalic and atraumatic. NECK: Supple and midline. LUNGS: Clear to auscultation. CARDIOVASCULAR: Regular rate and rhythm. GI: Soft and nontender. Reports rectal pain. NEUROLOGIC: Alert, awake, and oriented x3. MUSCULOSKELETAL: Moves all extremities. SKIN: Dry and intact. PSYCH: Calm. LABORATORY DATA: WBC 10.18, hemoglobin 9.8, hematocrit 32.1, and platelet 338. Sodium 136, potassium 4.0, BUN is 37, and creatinine is 7.16. Estimated GFR is 7. Glucose is 169. Magnesium 2.1. AST 18 and ALT 13. TSH 30.194, free T4 0.7797, T4 2.46, T3 uptake is 32.09. Pending hepatitis panel. IMAGING DATA: CT abdomen and pelvis without contrast shows large stool burden in the rectum and no significant change compared to the one done on 01/19/2019, with wall thickening and pericolonic fat stranding, which may be associated with severe diverticulosis. This may also represent residual findings of prior acute diverticulitis versus a repeat episode of acute diverticulitis. IMPRESSION AND PLAN: 1. Rectal pain with large stool impaction. CT noted. We will give pain medication as needed, GI has been consulted and was started on GoLYTELY and clear liquids to clear stool. 2. Hypertension. Resume home medications, Coreg and nifedipine. 3. Diabetes type 2. We will start coverage with sliding scale insulin. 4. Chronic obstructive pulmonary disease, stable. No shortness of breath. Albuterol as needed. 5. History of congestive heart failure, unknown type, not on exacerbation, stable. We will continue home medications. 6. Hypothyroidism with TSH of 30. We will resume home dose of 175 mcg daily and will need repeat blood work with PCP in 4 weeks. 7. End-stage renal disease, on dialysis, Sunday, , and Sunday. Dr. Mercado consulted for dialysis per schedule. 8. Chronic anemia. We will continue to monitor closely. Hemoglobin is 9, stable. 9. Plan is to continue with GoLYTELY and pain management. We will await on GI recommendation regarding the need for colonoscopy. Dictated by JOSE Hernandez Eleuterio Sutton MD MY/MODL /[id number]
--- NOTE | 2019-05-15 19:20 | NUR ---
Walking rounds. Patient alert and oriented. No signs of distress noted. Patient call cast within reach. Patient instructed to call for assistance. Patient verbalized understanding.
[2019-05-16] VITALS (8 sets, daily range): BP systolic 105–161; BP diastolic 50–93
[2019-05-16] MEDS ORDERED: PEG (High)/E-LYTE SOLN 4,000 ML BTL PO ONE
[2019-05-16] MEDS: LEVOTHYROXINE SODIUM 75 MCG TAB PO SCH (05:39)
[2019-05-16] MEDS: LEVOTHYROXINE SODIUM 100 MCG TAB PO SCH (05:39)
[2019-05-16] MEDS: INSULIN REGULAR, HUMAN 100 UNIT/1 ML 3ML VIAL SQ SCH ×4 (07:30→20:02)
[2019-05-16] MEDS: FUROSEMIDE 40 MG TAB PO SCH ×2 (08:31→18:01)
[2019-05-16] MEDS: DOCUSATE SODIUM 100 MG CAP PO SCH ×2 (08:31→17:00)
[2019-05-16] MEDS: CARVEDILOL 3.125 MG TAB PO SCH ×2 (08:31→18:02)
[2019-05-16] MEDS: CALCIUM ACETATE 667 MG GELCAP PO SCH ×3 (08:31→20:23)
[2019-05-16] MEDS: CILOSTAZOL 100 MG TAB PO SCH (08:32)
[2019-05-16] MEDS: CLOPIDOGREL BISULFATE 75 MG TAB PO SCH (08:32)
[2019-05-16] MEDS: NIFEDIPINE CR 30 MG TAB PO SCH (08:33)
[2019-05-16] MEDS: HYDROCORTISONE 2.5% PR CRM 1 OZ TUBE PR SCH ×2 (08:33→18:01)
--- NOTE | 2019-05-16 10:22 | NUR ---
WOUND CARE CONSULT FOR 74 YO FEMALE HX OF DIVERTICULITIS AND BOWEL OBSTRUCTION ADALI [address] LABS: WBC - 10.18, HGB- 9.8 ,GLUCOSE - 169 PATIENT HAS HAD MULTIPLE LOOSE STOOL EPISODES LEAVING BRIANNA RECTAL AREA DENUDED AND PAINFUL NO OPEN AREAS NOTED TO BUTTOCK OR BRIANNA AREA RECOMMENDATIONS : NURSING TO ASSIST PATIENT TO MAINTAIN CLEAN AND DRY BRIANNA AREA AND BUTTOCKS NURSING TO CONTINUE TO MAINTAIN CONSERVATIVE PUP STATUS AND INTERVENTIONS NURSING TO ASSIST PATIENT OUT OF BED FOR MEALS AND TOLERATED NURSING TO APPLY CALAZIME SKIN PROTECTANT PASTE BRIANNA RECTAL AND INNER BUTTOCKS DAILY AND AFTER PASSING LOOSE STOOL
--- NOTE | 2019-05-16 14:09 | Progress Note ---
DATE: CONSULTING PHYSICIAN: 1. Dr. Mercado with Nephrology. 2. Dr. Menjivar with GI. CHIEF COMPLAINT: Rectal pain and stool impaction. SUBJECTIVE: The patient states she has been drinking GoLYTELY to clear stool impaction. Rectal pain is improving with pain medication and ointment. No abdominal pain, no shortness of breath, chest pain, or fever. PHYSICAL EXAMINATION: VITAL SIGNS: Temperature 96.6, pulse is 62, respirations 20, blood pressure 142/70, pulse ox is 91% on room air. GENERAL: No acute distress. HEENT: Normocephalic, atraumatic. NECK: Supple and midline. CARDIOVASCULAR: Regular rate and rhythm. LUNGS: Clear to auscultation. ABDOMEN: Soft and nontender. NEUROLOGIC: Alert, awake, oriented x3. MUSCULOSKELETAL: Moves all extremities. SKIN: Dry. IMPRESSION AND PLAN: 1. Rectal pain with large stool impaction. Continue GoLYTELY and GI consulted for colonoscopy later today. 2. Hypertension. Resume home Coreg and nifedipine. 3. Diabetes type 2. Accu-Chek with sliding scale insulin coverage. 4. Chronic obstructive pulmonary disease stable. DuoNebs as needed. 5. History of congestive heart failure, unknown type. Stable. We will continue home medications. 6. Hypothyroidism with TSH of 30. We will continue home dose of Synthroid 175 mcg daily and repeat TSH in 4 weeks. 7. End-stage renal disease on dialysis Sunday, , Sunday. Dr. Mercado has been consulted for dialysis per schedule. 8. Chronic anemia. We will continue to monitor closely and transfuse if hemoglobin is less than 7. 9. History of bipolar. We will resume home medications once p.o. started. 10. Insomnia. We will continue with melatonin. 11. Deep vein thrombosis prophylaxis. No anticoagulation due to anemia. Plan is colonoscopy per GI today. Dictated by JOSE Hernandez Eleuterio Sutton MD MY/MODL /[id number]
[2019-05-16] MEDS ORDERED: PHENYLEPHRINE HCL 1% 10 MG/ML VIAL ONE (15:21)
[2019-05-16] MEDS ORDERED: PROPOFOL IV EMULSION 10 MG/ML 50 ML VIAL ONE (15:21)
[2019-05-16] MEDS ORDERED: EPHEDRINE SULFATE INJ 50 MG/10 ML SYR ONE (15:21)
[2019-05-16] MEDS ORDERED: LIDOCAINE HCL 2% LOCAL INJ 5 ML SDV VIAL INJ ONE (15:21)
[2019-05-16] MEDS ORDERED: SODIUM CHLORIDE 0.9% 500ML 500 ML ONE (16:02)
[2019-05-16] MEDS: ACETAMINOPHEN/CODEINE 300MG - 30MG TAB PO PRN (18:00)
--- NOTE | 2019-05-16 18:10 | Operative Report ---
DATE OF PROCEDURE: 05/16/2019 SURGEON: Brock Menjivar MD PROCEDURE: Colonoscopy with polypectomy. INDICATIONS FOR COLONOSCOPY: Recurrent fecal impaction. MEDICATIONS: The patient was done under MAC, please see anesthesiologist's note. PROCEDURE IN DETAIL: With the patient in left lateral decubitus position, a flexible fiberoptic Olympus colonoscope was inserted into the rectum and advanced all the way to the cecum. Prep overall was suboptimal with retained stools in the colon, but there was no obvious obstructing or constricting lesions. The scope was then withdrawn slowly, whatever was visualized, the mucosa overlying the cecum, ascending colon, transverse colon was grossly unremarkable. One polyp was removed per the cold biopsy forceps from the descending colon. Scattered diverticular disease was noted in the descending and the sigmoid. Whatever was visualized, the mucosa overlying the rectum appeared to be within normal limits. The scope was then retroflexed into the distal rectum and small internal hemorrhoids were noted, none of which was actively bleeding. The scope was then straightened out, it was subsequently withdrawn. The patient tolerated procedure well. IMPRESSION: 1. Suboptimal prep, no obstructing or constricting lesions. 2. Diverticulosis. 3. Descending colon polyp, removed per the cold biopsy forceps. 4. Internal hemorrhoids, none actively bleeding. PLAN: Follow up histology. Initiate renal ADA diet. The patient might benefit from a followup colonoscopy in 5 years. Brock Menjivar MD [facility]/MODL /[id number] cc: MD Eleuterio Mistry MD
[2019-05-16] MEDS ORDERED: HYDROMORPHONE 20MG/ NS 100ML IV ONE (18:50)
[2019-05-16] MEDS ORDERED: HYDROMORPHONE 1MG/1ML INJ IV ONE (18:55)
[2019-05-17] VITALS (9 sets, daily range): BP systolic 107–156; BP diastolic 60–92
[2019-05-17] MEDS: LEVOTHYROXINE SODIUM 75 MCG TAB PO SCH (05:04)
[2019-05-17] MEDS: LEVOTHYROXINE SODIUM 100 MCG TAB PO SCH (05:04)
[2019-05-17 05:26] LABS: BASOPHILS % 0.5 % (0.0-1.0); EOSINOPHILS # (AUTO) 0.3 (0.0-0.4); EOSINOPHILS % 3.5 % (0.0-6.0); HEMATOCRIT 32.6 % (34.2-44.1); HEMOGLOBIN 10.1 g/dL (12.0-16.0); LYMPHOCYTES # (AUTO) 1.5 (1.0-3.2); LYMPHOCYTES % 18.4 % (18.0-39.1); MEAN CORPUSCULAR HEMOGLOBIN 29.7 pg (28-32); MEAN CORPUSCULAR VOLUME 95.9 fL (81-99); MONOCYTES % 11.9 % (4.4-11.3); NEUTROPHILS # (AUTO) 5.4 (2.1-6.9); NEUTROPHILS % 64.9 % (38.7-80.0); PLATELET COUNT 288 x10e3/uL (140-360); RED CELL DISTRIBUTION WIDTH 16.5 % (11.7-14.4)
[2019-05-17 05:43] LABS: ANION GAP 15.8 mmol/L (8-16); CALCIUM 8.4 mg/dL (8.4-10.2); CREATININE, SERUM 6.41 mg/dL (0.57-1.11); POTASSIUM 3.8 mmol/L (3.5-5.1)
[2019-05-17] MEDS: ACETAMINOPHEN/CODEINE 300MG - 30MG TAB PO PRN (06:15)
[2019-05-17] MEDS: INSULIN REGULAR, HUMAN 100 UNIT/1 ML 3ML VIAL SQ SCH ×4 (08:20→20:30)
[2019-05-17] MEDS: CILOSTAZOL 100 MG TAB PO SCH (08:20)
[2019-05-17] MEDS: HYDROCORTISONE 2.5% PR CRM 1 OZ TUBE PR SCH ×2 (08:20→16:31)
[2019-05-17] MEDS: CALCIUM ACETATE 667 MG GELCAP PO SCH ×3 (08:20→20:33)
[2019-05-17] MEDS: DOCUSATE SODIUM 100 MG CAP PO SCH ×2 (08:20→16:30)
[2019-05-17] MEDS: CLOPIDOGREL BISULFATE 75 MG TAB PO SCH (08:20)
[2019-05-17] MEDS: FUROSEMIDE 40 MG TAB PO SCH ×2 (08:20→16:30)
[2019-05-17] MEDS: CARVEDILOL 3.125 MG TAB PO SCH ×2 (09:00→16:15)
[2019-05-17] MEDS: NIFEDIPINE CR 30 MG TAB PO SCH (09:00)
[2019-05-17] MEDS ORDERED: ALBUMIN 25% 12.5GM 0.25 GM/ML BTL IV PRN (10:00)
[2019-05-17] MEDS ORDERED: SODIUM CHLORIDE 0.9% 250ML 500 ML IV PRN (10:00)
[2019-05-17] MEDS ORDERED: SODIUM CHLORIDE 0.9% 1000ML 2,000 ML IV PRN (10:00)
[2019-05-17] MEDS ORDERED: LIDOCAINE HCL 2% 30 ML TUBE TOP PRN (10:00)
[2019-05-17] MEDS ORDERED: MANNITOL 25% 12.5GM/50 ML VIAL IV PRN (10:00)
--- NOTE | 2019-05-17 18:00 | NUR ---
dialysis nurse states she is unable to access patient's fistula and will have to wait either until the logistics operations manager nurse can come in or first thing in the morning to try again.
--- NOTE | 2019-05-17 19:01 | Discharge Summary ---
PRIMARY CARE PHYSICIAN: Dr. Patel with [facility]. FINAL DIAGNOSES: 1. Rectal pain with recurrent stool impaction. 2. Hypertension. 3. Diabetes type 2. 4. Chronic obstructive pulmonary disease. 5. Congestive heart failure. 6. Hypothyroidism. 7. End-stage renal disease on dialysis Sunday, , and Sunday. 8. Chronic pain. 9. History of bipolar. CONSULTANTS: 1. Dr. Mercado with Nephrology. 2. Dr. Brock Menjivar with GI. PROCEDURE: Colonoscopy done with biopsy taken, rectal bleeding, internal hemorrhoids noted. HISTORY: Per HPI. HOSPITAL COURSE: This is a 74-year-old female, who presented with severe rectal pain. CT showed stool impaction. She was given laxatives with no improvement. GI was consulted and GoLYTELY started two gallon given. She underwent colonoscopy, which showed diverticulosis, polyp biopsied, and noted internal hemorrhoids. She is able to move her bowels, rectal pain is improved. Preparation H cream advised and barrier cream is also advised. Today, she is feeling much better. Vital signs stable, afebrile. We will discharge home after dialysis to follow up with PCP and GI in 1 to 2 weeks. PHYSICAL EXAMINATION: VITAL SIGNS: Temperature 97.1, pulse is 71, respirations 18, blood pressure 156/92, and pulse ox is 94% on room air. GENERAL: No acute distress. HEENT: Normocephalic and atraumatic. NECK: Supple and midline. CARDIOVASCULAR: Regular rate and rhythm. LUNGS: Clear to auscultation. ABDOMEN: Soft and nontender. NEUROLOGIC: Alert, awake, and oriented x3. MUSCULOSKELETAL: Moves all extremities. CONDITION AT DISCHARGE: Improved and stable. DISCHARGE MEDICATIONS: See SEP. DISCHARGE FOLLOWUP: PCP and Dr. Patel in 1 to 2 weeks. Follow up with GI for biopsy results in 1 to 2 weeks. Advised repeat colonoscopy in 5 years. Dictated by JOSE Hernandez Eleuterio Sutton MD MY/MODL /[id number]
[2019-05-18] VITALS (7 sets, daily range): BP systolic 118–164; BP diastolic 56–85
[2019-05-18] MEDS: LEVOTHYROXINE SODIUM 100 MCG TAB PO SCH (05:00)
[2019-05-18] MEDS: LEVOTHYROXINE SODIUM 75 MCG TAB PO SCH (05:00)
[2019-05-18] MEDS: CALCIUM ACETATE 667 MG GELCAP PO SCH ×3 (08:15→21:24)
[2019-05-18] MEDS: CLOPIDOGREL BISULFATE 75 MG TAB PO SCH (08:15)
[2019-05-18] MEDS: POLYETHYLENE GLYCOL 3350 17 GM PACK PO SCH ×2 (08:15→17:55)
[2019-05-18] MEDS: INSULIN REGULAR, HUMAN 100 UNIT/1 ML 3ML VIAL SQ SCH ×4 (08:15→21:00)
[2019-05-18] MEDS: DOCUSATE SODIUM 100 MG CAP PO SCH ×2 (08:15→17:54)
[2019-05-18] MEDS: FUROSEMIDE 40 MG TAB PO SCH ×2 (08:15→17:55)
[2019-05-18] MEDS: HYDROCORTISONE 2.5% PR CRM 1 OZ TUBE PR SCH ×2 (08:15→17:55)
[2019-05-18] MEDS: CILOSTAZOL 100 MG TAB PO SCH (08:15)
[2019-05-18] MEDS: CARVEDILOL 3.125 MG TAB PO SCH ×2 (08:24→17:54)
[2019-05-18] MEDS: NIFEDIPINE CR 30 MG TAB PO SCH (08:25)
--- NOTE | 2019-05-18 09:00 | NUR ---
dialysis nurse unable to access left dialysis fistula again this AM and called for the dialysis call center trainer/specialist to come out to try to access and assess the fistula. upon arrival, the call center trainer was unable to access the fistula and states there seems to be some stenosis. per Dr Joy, patient is to have a fistulogram first thing in the morning to assess the fistula issues further.
--- NOTE | 2019-05-18 15:35 | NUR ---
report given to Terry for continuing care. patient transferred at this time via wheelchair to new unit.
--- NOTE | 2019-05-18 16:20 | Progress Note ---
DATE: 05/17/2019 CHIEF COMPLAINT: Rectal pain with stool impaction. SUBJECTIVE: The patient is status post colonoscopy, rectal pain improved, with plan to discharge after dialysis, but an AV fistula could not be accessed, so discharge has been held. PHYSICAL EXAMINATION: GENERAL: No acute distress. HEENT: Normocephalic and atraumatic. CARDIOVASCULAR: Regular rate and rhythm. LUNGS: Clear to auscultation. ABDOMEN: Soft and nontender. NEUROLOGIC: Alert, awake, and oriented x3. MUSCULOSKELETAL: Moves all extremities. IMPRESSION AND PLAN: 1. Rectal pain with large stool impaction, status post colonoscopy with biopsy and polyp and internal hemorrhoids noted. 2. AV fistula malfunction. Discharge hold. Unable to do dialysis. IR for fistulogram. 3. Hypertension. Resume Coreg and nifedipine. 4. Diabetes type 2. Accu-Chek with sliding scale insulin coverage. 5. Chronic obstructive pulmonary disease, stable. DuoNeb as needed. 6. History of congestive heart failure. Resume home medications. 7. Hypothyroidism. Resume Synthroid 175 mcg. Repeat labs in 4 weeks. 8. End-stage renal disease. Dr. Mercado for dialysis. 9. Chronic anemia. Monitor closely. 10. History of bipolar. Resume home medications. 11. Insomnia, on melatonin. 12. Deep vein thrombosis prophylaxis. No chemical anticoagulation due to anemia. 13. Plan is discharge held due to malfunctioning AV fistula. IR for fistulogram before discharge. Dictated by JOSE Hernandez Eleuterio Sutton MD MY/MODL /[id number]
--- NOTE | 2019-05-18 16:25 | Progress Note ---
DATE: 05/18/2019 CONSULTING PHYSICIANS: 1. Dr. Mercado with Nephrology. 2. Dr. Menjivar with GI. CHIEF COMPLAINT: Rectal pain with stool impaction and left AV fistula malfunction. SUBJECTIVE: The patient was going to be discharged home yesterday after dialysis, but was unable to complete dialysis due to unable accessing the AV fistula. The patient is scheduled for fistulogram tomorrow and dialyzed before discharging home. She reports rectal pain is improved. PHYSICAL EXAMINATION: VITAL SIGNS: Temperature 97.6, pulse is 71, respirations 16, blood pressure 118/56, and pulse ox 97% on room air. GENERAL: No acute distress. HEENT: Normocephalic and atraumatic. NECK: Supple and midline. CARDIOVASCULAR: Regular rate and rhythm. LUNGS: Clear to auscultation. ABDOMEN: Soft and nontender. NEUROLOGIC: Alert, awake, and oriented x3. MUSCULOSKELETAL: Moves all extremities. No edema. SKIN: Dry. IMPRESSION AND PLAN: 1. Malfunctioning AV fistula. Fistulogram pending for tomorrow morning. IR has been consulted. 2. Rectal pain with large stool impaction, status post colonoscopy, which showed hemorrhoids and biopsies taken. 3. Hypertension, stable on Coreg and nifedipine. 4. Diabetes type 2. Accu-Chek with sliding scale insulin coverage. 5. Chronic obstructive pulmonary disease, stable. DuoNeb as needed. 6. History of congestive heart failure, unknown type, stable. Continue home medications. 7. Hypothyroidism with elevated TSH. The patient is noncompliant with home Synthroid. Discussed the importance of compliance with medication. Resumed Synthroid 175 mcg daily and repeat TSH in 4 weeks. 8. End-stage renal disease, on dialysis Sunday, , and Sunday. Dr. Mercado on the case. 9. Chronic anemia. We will continue to monitor closely and transfuse if hemoglobin is less than 7. 10. History of bipolar. Resume home medication. 11. Insomnia. Continue melatonin. 12. Deep vein thrombosis prophylaxis. No chemical anticoagulation due to anemia and fistulogram in the a.m. Dictated by JOSE Hernandez Eleuterio Sutton MD MY/MODL /[id number]
[2019-05-19] VITALS (8 sets, daily range): BP systolic 120–178; BP diastolic 63–92
[2019-05-19] MEDS: LEVOTHYROXINE SODIUM 75 MCG TAB PO SCH (05:27)
[2019-05-19] MEDS: LEVOTHYROXINE SODIUM 100 MCG TAB PO SCH (05:27)
[2019-05-19] MEDS: POLYETHYLENE GLYCOL 3350 17 GM PACK PO SCH ×2 (05:27→14:00)
--- NOTE | 2019-05-19 07:00 | NUR ---
RCD PT AT BED PT IS ALERT AND ORIENTED PT RESTING ON BED IV PATENT BY SALINE FLUSH PT NPO BED LOW AND LOCKED CALL LIGHT IN REACH
--- NOTE | 2019-05-19 07:19 | NUR ---
REPORT GIVEN TO ONCOMING NURSE,WALKING ROUNDS MADE.PT RESTING IN BED WITH NO S/S OF DISTRESS.CALL LIGHT WITHIN EASY REACH.
[2019-05-19] MEDS: INSULIN REGULAR, HUMAN 100 UNIT/1 ML 3ML VIAL SQ SCH ×3 (07:30→16:30)
[2019-05-19 08:48] LABS: INR 0.99; PROTHROMBIN TIME 13.6 seconds (11.9-14.5)
[2019-05-19] MEDS: HYDROCORTISONE 2.5% PR CRM 1 OZ TUBE PR SCH ×2 (09:00→17:00)
[2019-05-19] MEDS: CARVEDILOL 3.125 MG TAB PO SCH ×2 (09:00→17:00)
[2019-05-19] MEDS: CALCIUM ACETATE 667 MG GELCAP PO SCH ×2 (09:00→15:00)
[2019-05-19] MEDS: DOCUSATE SODIUM 100 MG CAP PO SCH ×2 (09:00→17:00)
[2019-05-19] MEDS: FUROSEMIDE 40 MG TAB PO SCH ×2 (09:00→17:00)
[2019-05-19] MEDS: CLOPIDOGREL BISULFATE 75 MG TAB PO SCH (09:00)
[2019-05-19] MEDS: CILOSTAZOL 100 MG TAB PO SCH (09:00)
[2019-05-19] MEDS: NIFEDIPINE CR 30 MG TAB PO SCH (09:00)
--- NOTE | 2019-05-19 09:06 | NUR ---
AC TO RADIOLOGY PAGED DR BERMAN REGARDING THE FISTULOGRAM IF THE FISTULOGRAM IS BLOCKED NEED TO GET NEW ORDER TO ANOTHER ACCESS DR BERMAN SAID TELL THE RADIOLOGIST TO CALL DR BERMAN NOTIFIED THE RADIOLOGY TO MR DUNN
[2019-05-19] MEDS ORDERED: LIDOCAINE HCL 1% LOCAL INJ 20 ML VIAL ONE (11:24)
[2019-05-19] MEDS ORDERED: FENTANYL CITRATE/PF 100MCG/2 ML INJ ONE (12:01)
[2019-05-19] MEDS ORDERED: MIDAZOLAM HCL 2 MG/2 ML VIAL ONE (12:01)
--- NOTE | 2019-05-19 12:20 | NUR ---
pt went to procedure in safe condition
[2019-05-19] MEDS ORDERED: SODIUM CHLORIDE 0.9% 250ML 250 ML ONE (12:24)
[2019-05-19] MEDS ORDERED: IOPAMIDOL 370 MG/ML 200 ML INFUS..BTL INJ ONE (13:14)
--- NOTE | 2019-05-19 13:36 | Progress Note ---
DATE: 05/19/2019 CONSULTING PHYSICIANS: Dr. Mercado with Nephrology and Dr. Menjivar with GI. CHIEF COMPLAINT: Left AV fistula malfunction. SUBJECTIVE: The patient is seen resting in bed with no acute distress. Pain is resolved. She is n.p.o. for fistulogram today. No events overnight. PHYSICAL EXAMINATION: VITAL SIGNS: Temperature 96.5, pulse is 68, respirations 14, blood pressure 148/92, pulse oximetry is 97% on room air. IMPRESSION AND PLAN: 1. Malfunctioning AV fistula. Fistulogram per IR today. Hemodialysis post fistulogram. 2. Rectal pain with large stool impaction status post colonoscopy, now resolved. 3. Hypertension. Continue Coreg and nifedipine. 4. Diabetes type 2. Accu-Chek with sliding scale insulin coverage. 5. End-stage renal disease on dialysis, Sunday, and Sunday. 6. Chronic obstructive pulmonary disease, stable. No dyspnea. DuoNebs as needed. 7. History of congestive heart failure, stable. Continue home medications. 8. Hypothyroidism with elevated TSH. I resumed home dose of Synthroid 175 mcg daily. 9. Chronic anemia. We will continue to monitor closely and transfuse if hemoglobin is less than 7. 10. History of bipolar. Resume home medication. 11. Insomnia. Continue melatonin. 12. Deep vein thrombosis prophylaxis. No chemical anticoagulation due to anemia and fistulogram today. Dictated by JOSE Hernandez Eleuterio Sutton MD MY/MODL /[id number]
--- NOTE | 2019-05-19 13:54 | NUR ---
SHAR MANCUSO FROM RADIOLOGY OK TO USE FISTULA AND CONTINUE PREVIOUS DIET
--- NOTE | 2019-05-19 13:58 | NUR ---
PT BACK AFTER PROCEDURE PT IS ALERT AND ORIENTED VITALS CHECKED PT RESTING ON BED BED LOW AND LOCKED CALL LIGHT IN REACH NOTIFIED THE DIALYSIS NURSE SINCE THE PT CAN GO HOME AFTER DIALYSIS
--- NOTE | 2019-05-19 15:08 | NUR ---
IMM explained to patient, signed and placed in chart. copy given to patient.
[2019-05-19 16:58] LABS: BASOPHILS % 0.2 % (0.0-1.0); EOSINOPHILS # (AUTO) 0.3 (0.0-0.4); EOSINOPHILS % 3.6 % (0.0-6.0); HEMATOCRIT 33.2 % (34.2-44.1); HEMOGLOBIN 10.6 g/dL (12.0-16.0); LYMPHOCYTES # (AUTO) 1.1 (1.0-3.2); MEAN CORPUSCULAR HEMOGLOBIN 29.3 pg (28-32); MEAN CORPUSCULAR HGB CONC 31.9 g/dL (31-35); MEAN CORPUSCULAR VOLUME 91.7 fL (81-99); MONOCYTES # (AUTO) 0.7 (0.2-0.8); MONOCYTES % 8.8 % (4.4-11.3); NEUTROPHILS # (AUTO) 5.9 (2.1-6.9); NEUTROPHILS % 72.4 % (38.7-80.0); PLATELET COUNT 275 x10e3/uL (140-360); RED BLOOD COUNT 3.62 x10e6/uL (3.6-5.1); RED CELL DISTRIBUTION WIDTH 16.1 % (11.7-14.4)
--- NOTE | 2019-05-19 19:00 | NUR ---
PT RESTING ON BED BED SIDE REPORT GIVEN TO ONCOMING NURSE
== END 2019-05-19 20:52 | disposition home or self-care (01) | DRG 388 ==
LOC: ER 11:01 → ERHOLD 17:45 → IMCU 22:08 → OBSVTOIN 05-18 10:55 → MED/SURG2 05-18 15:37 → UNDODISIN 05-18 16:10
PROVIDERS: ADMIT Internal Medicine; ATTEND Internal Medicine
PROC: 5A1D70Z Performance of Urinary Filtration, Intermittent, Less than 6 Hours Per Day (ICD-10-PCS; 2019-05-15)
PROC: 0DBM8ZX Excision of Descending Colon, Via Natural or Artificial Opening Endoscopic, Diagnostic (ICD-10-PCS; principal; 2019-05-16 16:34)
PROC: 5A1D70Z Performance of Urinary Filtration, Intermittent, Less than 6 Hours Per Day (ICD-10-PCS; 2019-05-17)
PROC: 5A1D70Z Performance of Urinary Filtration, Intermittent, Less than 6 Hours Per Day (ICD-10-PCS; 2019-05-19)
DX: K56.41 Fecal impaction (principal); N18.6 End stage renal disease; I13.2 Hypertensive heart and chronic kidney disease with heart failure and with stage 5 chronic kidney disease, or end stage renal disease; T82.858A Stenosis of other vascular prosthetic devices, implants and grafts, initial encounter; J44.9 Chronic obstructive pulmonary disease, unspecified; F31.9 Bipolar disorder, unspecified; E03.9 Hypothyroidism, unspecified; E11.22 Type 2 diabetes mellitus with diabetic chronic kidney disease; I50.9 Heart failure, unspecified; Z99.2 Dependence on renal dialysis; Z79.4 Long term (current) use of insulin; K57.90 Diverticulosis of intestine, part unspecified, without perforation or abscess without bleeding; K64.8 Other hemorrhoids; K63.5 Polyp of colon; D64.9 Anemia, unspecified; G47.00 Insomnia, unspecified
CPT/HCPCS: 36415; 45378; 45384; 74176; 76080; 80048; 80053; 82948; 83735; 83880; 84436; 84443; 84479; 85025; 85049; 85610; 88305; 99284; G0378; J1170; J1817; J2001; J2250; J2370; J3010; J7030; J7040; J7050; Q9967

== ENCOUNTER 2019-05-26 03:33 | Emergency (ER) | payer MEDICARE ==
[~2019-05-26] VITALS: Ht 167.6 cm; Wt 94.3 kg
[2019-05-26] MEDS ORDERED: ACETAMINOPHEN/CODEINE 300MG - 30MG TAB PO ONE (04:15)
[2019-05-26 05:06] VITALS: BP 159/83
--- NOTE | 2019-05-26 05:17 | Diagnostic Imaging Report ---
Exam: AP radiograph of the pelvis-1 view; left hip radiographs-2 views History: Pain. Comparison: None. Findings: Diffuse osteopenia. No evidence of acute fracture or malalignment. Bowel gas partially obscures visualization of the sacrum and bilateral iliac bones. There are moderate degenerative changes of bilateral hips. Diffuse atherosclerotic vascular calcifications. Impression: No acute radiographic abnormality. Moderate degenerative changes of bilateral hips. Signed by: Dr. Karina Carlson MD on 05/26/2019 5:14 AM
== END 2019-05-26 05:12 | disposition home or self-care (01) ==
LOC: ER 03:33
DX: M25.552 Pain in left hip (principal); I12.0 Hypertensive chronic kidney disease with stage 5 chronic kidney disease or end stage renal disease; E11.22 Type 2 diabetes mellitus with diabetic chronic kidney disease; N18.6 End stage renal disease; Z99.2 Dependence on renal dialysis; E78.5 Hyperlipidemia, unspecified; F31.9 Bipolar disorder, unspecified
CPT/HCPCS: 99283

== ENCOUNTER 2019-05-31 14:16 | Inpatient (IN) | payer MEDICARE ==
[2019-05-31] VITALS (8 sets, daily range): BP systolic 92–151; BP diastolic 52–87
[~2019-05-31] VITALS: Ht 167.6 cm; Wt 92.5 kg
[2019-05-31] MEDS ORDERED: CYCLOBENZAPRINE HCL 10 MG TAB PO NR (15:00)
[2019-05-31] MEDS ORDERED: HYDROCODONE/APAP 7.5MG-325MG 1 EA TAB PO PRN ×2 (15:00→23:02)
[2019-05-31] MEDS ORDERED: KETOROLAC TROMETHAMINE 30 MG/ML VIAL IV NR (15:00)
[2019-05-31 15:44] LABS: BASOPHILS % 0.6 % (0.0-1.0); EOSINOPHILS # (AUTO) 0.1 (0.0-0.4); EOSINOPHILS % 1.6 % (0.0-6.0); HEMATOCRIT 38.1 % (34.2-44.1); HEMOGLOBIN 11.6 g/dL (12.0-16.0); LYMPHOCYTES # (AUTO) 1.2 (1.0-3.2); LYMPHOCYTES % 17.9 % (18.0-39.1); MEAN CORPUSCULAR HGB CONC 30.4 g/dL (31-35); MEAN CORPUSCULAR VOLUME 95.3 fL (81-99); MONOCYTES # (AUTO) 0.7 (0.2-0.8); NEUTROPHILS # (AUTO) 4.8 (2.1-6.9); NEUTROPHILS % 69.6 % (38.7-80.0); PLATELET COUNT 244 x10e3/uL (140-360); RED CELL DISTRIBUTION WIDTH 15.5 % (11.7-14.4)
[2019-05-31 16:04] LABS: INR 0.98; PROTHROMBIN TIME 13.5 seconds (11.9-14.5)
[2019-05-31 16:05] LABS: PARTIAL THROMBOPLASTIN TIME 34.7 seconds (23.8-35.5)
[2019-05-31] MEDS ORDERED: DEXTROSE 50% SYRINGE 50 ML IV STA (16:15)
[2019-05-31] MEDS ORDERED: CALCIUM GLUCONATE 10% INJ 4.65 MEQ in SODIUM CHLORIDE 0.9% 50ML 50 ML IV ONE (16:15)
[2019-05-31] MEDS ORDERED: INSULIN REGULAR, HUMAN 100 UNIT/1 ML 3ML VIAL SQ ONE (16:15)
[2019-05-31] MEDS ORDERED: SODIUM BICARBONATE 8.4% SYRING 50 ML ONE (16:26)
[2019-05-31] MEDS ORDERED: SODIUM CHLORIDE 0.9% 100 ML ONE (16:27)
[2019-05-31] MEDS ORDERED: CALCIUM GLUCONATE 10% INJ 0.465 MEQ/ML VIAL ONE (16:27)
[2019-05-31] MEDS ORDERED: SODIUM BICARBONATE 8.4% INJ 50 ML SYR IV NR (16:30)
[2019-05-31] MEDS ORDERED: ALBUTEROL SULF 0.083% NEB SOLN 3 ML NEB NEB ONE (16:30)
[2019-05-31] MEDS ORDERED: DEXTROSE 50% SYRINGE 50 ML IV ONE (16:30)
[2019-05-31] MEDS ORDERED: DEXTROSE 50% SYRINGE 50 ML IV PRN (16:45)
[2019-05-31] MEDS ORDERED: ONDANSETRON HCL INJ 2MG/ML 2ML 2 MG/ML VIAL IV PRN (16:45)
--- NOTE | 2019-05-31 16:54 | NUR ---
BP CUFF RT LOWER LEG.
[2019-05-31 17:01] LABS: ALBUMIN 2.6 g/dL (3.5-5.0); ALBUMIN/GLOBULIN RATIO 0.5 (0.8-2.0); ALKALINE PHOSPHATASE 88 IU/L (40-150); ANION GAP 26.4 mmol/L (8-16); BLOOD UREA NITROGEN 58 mg/dL (7-26); BUN/CREATININE RATIO 4 (6-25); CALCIUM 8.2 mg/dL (8.4-10.2); CARBON DIOXIDE 24 mmol/L (22-29); CHLORIDE 94 mmol/L (98-107); CREATININE, SERUM 13.02 mg/dL (0.57-1.11); EST GLOMERULAR FILTRATION RATE 3 ML/MIN (60-); GLUCOSE 93 mg/dL (74-118); POTASSIUM 5.4 mmol/L (3.5-5.1); SODIUM 139 mmol/L (136-145)
[2019-05-31 17:02] LABS: ALANINE AMINOTRANSFERASE < 6 IU/L (0-55)
--- NOTE | 2019-05-31 17:35 | Diagnostic Imaging Report ---
EXAM: CT Pelvis WITHOUT contrast INDICATION: Left hip pain radiating to the left lower extremity. COMPARISON: None. TECHNIQUE: Pelvis were scanned utilizing a multidetector helical scanner from the iliac crest to the pubic symphysis without administration of IV contrast. Coronal and sagittal reformations were obtained. Routine protocol was performed. IV CONTRAST: None. ORAL CONTRAST: Water RADIATION DOSE: Total DLP: 355 mGy*cm Estimated effective dose: (DLP x 0.015 x size factor) mSv COMPLICATIONS: None FINDINGS: LINES and TUBES: None. GI TRACT: No abnormal distention, wall thickening, or evidence of bowel obstruction. Diverticulosis in the distal descending and sigmoid colon. There is surrounding fat stranding and trace fluid about the distal descending and proximal sigmoid colon; this findings are consistent with acute diverticulitis. PELVIC ORGANS/BLADDER: The uterus is absent. LYMPH NODES: No lymphadenopathy. VESSELS: There is severe atherosclerotic disease in the aorta and major arterial branches. PERITONEUM / RETROPERITONEUM: No free air or fluid. BONES: There are degenerative changes in the lumbar spine, bilateral hip and SI joints. Bone island in the left acetabulum.. SOFT TISSUES: Unremarkable. IMPRESSION: 1. Acute sigmoid diverticulitis without abscess formation. Recommend follow-up after treatment recommended resolution and exclude underlying neoplasm. Signed by: Dr. Ramírez Warren M.D. on 05/31/2019 5:31 PM
[2019-05-31] MEDS ORDERED: LIDOCAINE HCL 2% 30 ML TUBE TOP NR (18:30)
[2019-05-31 19:43] LABS: CREATINE KINASE MB 4.1 ng/mL (0-5.0)
[2019-05-31] MEDS ORDERED: BISACODYL 5 MG TAB EC PO PRN (20:00)
[2019-05-31] MEDS ORDERED: SODIUM CHLORIDE 0.9% 1000ML 1,000 ML ONE (21:12)
[2019-05-31] MEDS: PIPERACILLIN/TAZO 2.25 GM 50 ML IV SCH (21:33)
[2019-06-01] VITALS (16 sets, daily range): BP systolic 104–168; BP diastolic 50–120
[2019-06-01 05:31] LABS: BASOPHILS % 0.4 % (0.0-1.0); EOSINOPHILS # (AUTO) 0.2 (0.0-0.4); EOSINOPHILS % 3.1 % (0.0-6.0); HEMATOCRIT 34.7 % (34.2-44.1); HEMOGLOBIN 10.4 g/dL (12.0-16.0); LYMPHOCYTES # (AUTO) 1.4 (1.0-3.2); LYMPHOCYTES % 18.1 % (18.0-39.1); MEAN CORPUSCULAR HEMOGLOBIN 29.1 pg (28-32); MEAN CORPUSCULAR VOLUME 97.2 fL (81-99); MONOCYTES # (AUTO) 1.1 (0.2-0.8); MONOCYTES % 13.7 % (4.4-11.3); NEUTROPHILS # (AUTO) 4.9 (2.1-6.9); NEUTROPHILS % 64.4 % (38.7-80.0); PLATELET COUNT 204 x10e3/uL (140-360); RED BLOOD COUNT 3.57 x10e6/uL (3.6-5.1); RED CELL DISTRIBUTION WIDTH 15.5 % (11.7-14.4)
[2019-06-01 05:56] LABS: ALBUMIN 2.7 g/dL (3.5-5.0); ALBUMIN/GLOBULIN RATIO 0.6 (0.8-2.0); ALKALINE PHOSPHATASE 87 IU/L (40-150); ANION GAP 20.3 mmol/L (8-16); BLOOD UREA NITROGEN 43 mg/dL (7-26); BUN/CREATININE RATIO 4 (6-25); CALCIUM 8.3 mg/dL (8.4-10.2); CARBON DIOXIDE 29 mmol/L (22-29); CHLORIDE 96 mmol/L (98-107); CREATININE, SERUM 10.71 mg/dL (0.57-1.11); EST GLOMERULAR FILTRATION RATE 4 ML/MIN (60-); GLUCOSE 106 mg/dL (74-118); POTASSIUM 4.3 mmol/L (3.5-5.1); SODIUM 141 mmol/L (136-145)
[2019-06-01 05:57] LABS: ALANINE AMINOTRANSFERASE < 6 IU/L (0-55)
[2019-06-01 06:32] LABS: CREATINE KINASE MB 3.8 ng/mL (0-5.0)
[2019-06-01] MEDS: DOCUSATE SODIUM 100 MG CAP PO SCH ×2 (09:28→18:13)
[2019-06-01] MEDS: PIPERACILLIN/TAZO 2.25 GM 50 ML IV SCH (09:28)
[2019-06-01] MEDS: INSULIN REGULAR, HUMAN 100 UNIT/1 ML 3ML VIAL SQ SCH ×3 (11:30→20:39)
[2019-06-01] MEDS: CARVEDILOL 3.125 MG TAB PO SCH ×2 (11:47→18:14)
[2019-06-01] MEDS: FUROSEMIDE 40 MG TAB PO SCH ×2 (11:47→18:14)
[2019-06-01] MEDS: CLOPIDOGREL BISULFATE 75 MG TAB PO SCH (11:47)
--- NOTE | 2019-06-01 11:51 | History and Physical ---
PRIMARY CARE PHYSICIAN: Dr. Patel at [facility]. CHIEF COMPLAINT: Missed dialysis x2 sessions due to left hip pain. HISTORY OF PRESENT ILLNESS: This is a 74-year-old female with past medical history of hypertension, diabetes, COPD, CHF, hypothyroidism, ESRD, anemia, and bipolar, who presented to the ER with complaints of left hip pain and missed dialysis x2 sessions due to not feeling well. She denies any nausea, vomiting, fever, chills, diarrhea, chest pain, shortness of breath, trauma to the left hip or fall. She was recently admitted and discharged after a colonoscopy for stool impaction. She reports left side pain radiating to the left hip. She is unable to move it due to pain. Upon arrival to the ER, her potassium was 5.4 and creatinine was 13.02. She is admitted to the ICU for stat HD. PAST MEDICAL HISTORY: 1. Hypertension. 2. ESRD. 3. Diabetes. 4. COPD. 5. CHF. 6. Hypothyroidism. 7. Anemia. 8. Bipolar. PAST SURGICAL HISTORY: AV graft and hysterectomy. FAMILY MEDICAL HISTORY: Both parents have heart disease. SOCIAL HISTORY: She denies any tobacco, alcohol, or drug use. ALLERGIES: SHE IS ALLERGIC TO ATORVASTATIN AND PNEUMOCOCCAL VACCINES. REVIEW OF SYSTEMS: GENERAL: Fatigue. HEENT: Normocephalic and atraumatic. LUNGS: No shortness of breath or cough. CARDIOVASCULAR: No chest pain or palpitations. GI: No nausea or vomiting. Abdominal pain reported and constipation. NEUROLOGIC: Alert, awake, and oriented x3. MUSCULOSKELETAL: Left foot amputation, left hip pain. SKIN: Dry and intact. PHYSICAL EXAMINATION: VITAL SIGNS: Temperature 97.6, pulse is 66, respirations 17, blood pressure 115/71, and pulse ox is 100% on 2 L of oxygen. GENERAL: Fatigue. Otherwise, resting in bed. HEENT: Normocephalic and atraumatic. NECK: Supple and midline. LUNGS: Clear to auscultation. CARDIOVASCULAR: Regular rate and rhythm. GI: Left lower quadrant pain. Otherwise, soft and active bowel sounds. NEUROLOGIC: Alert, awake, and oriented x3. MUSCULOSKELETAL: Left hip pain and no edema in the lower extremities. Left foot amputation. SKIN: Dry and intact. PSYCH: Calm. LABORATORY DATA: WBC 7.66, hemoglobin 10.4, hematocrit 34, and platelets 204. Sodium 141, potassium is 4.3, CO2 is 29, BUN is 43, and creatinine is 10.7. Estimated GFR is 4. Troponins x3 negative. Calcium 8.3. PT 13.5, INR 0.98, and APTT 34.7. IMAGING: CT abdomen and pelvis showed acute sigmoid diverticulitis without abscess formation. IMPRESSION AND PLAN: 1. Acute sigmoid diverticulitis. CT pelvis noted. We will start on Levaquin and Flagyl. Probiotics b.i.d. We will continue pain management as needed. 2. Hyperkalemia due to missed dialysis. Dialysis yesterday and today. Nephrology on the case. 3. Hypertension. We will continue home medications. 4. Diabetes. Accu-Chek with sliding scale coverage. 5. Chronic obstructive pulmonary disease. Neb treatment as needed. 6. Congestive heart failure. We will continue with Lasix and beta blockers. 7. Hypothyroidism. Noncompliant with medication. We will resume Synthroid 175. 8. End-stage renal disease, on dialysis, TTS. The patient is noncompliant with dialysis. Has missed 2 sessions. We will defer to Nephrology. 9. Anemia of chronic disease. We will continue to monitor closely. 10. History of bipolar. We will resume home medications. 11. Deep vein thrombosis prophylaxis. We will hold chemical anticoagulation due to anemia. Dictated by JOSE Hernandez Eleuterio Sutton MD MY/MODL /[id number] Seen and examined. Agree with the findings and plan as documented by JOSE Abreu. JEFFERYD
[2019-06-01] MEDS ORDERED: LEVOFLOXACIN 750MG/D5W 150ML 150 ML IV SCH (12:00)
--- NOTE | 2019-06-01 12:31 | NUR ---
notified [facility] for HD today per Dr Goodman. Dr Goodman called in prescription for levothyroxine.
--- NOTE | 2019-06-01 12:42 | NUR ---
Received patient from ICU. Respiration even and unlabored without SOB. 2L NC O2 in placed.
[2019-06-01] MEDS: CALCIUM ACETATE 667 MG GELCAP PO SCH ×2 (16:01→20:38)
[2019-06-01] MEDS: METRONIDAZOLE 500MG/NS 100ML 100 ML IV SCH ×2 (16:01→20:59)
[2019-06-01] MEDS ORDERED: SODIUM CHLORIDE 0.9% 250ML 250 ML ONE (16:05)
[2019-06-01] MEDS: HYDROCORTISONE 2.5% PR CRM 1 OZ TUBE TOP SCH (18:15)
--- NOTE | 2019-06-01 19:13 | NUR ---
Report given to night nurse. Respiration even and unlabored without SOB. Call light in reach.
--- NOTE | 2019-06-01 19:13 | NUR ---
PT IS SLEEPING. RESPIRATION IS EVEN AND UNLABORED, NO DISTRESS NOTED. BED IN THE LOWEST POSITION, LOCKED, BED ALARM ON, AND CALL LIGHT WITHIN REACH. WILL CONTINUE TO MONITOR.
--- NOTE | 2019-06-01 19:56 | NUR ---
SPOKE TO THE APPRAISAL MANAGER DR LEON IN REGARD TO PT BLOOD SUGAR OF 460. PER DR LEON JUST GIVE THE 14 UNITS ORDERED. NO NEW ORDER WAS GIVEN. WILL CONTINUE TO MONITOR.
[2019-06-02] VITALS (8 sets, daily range): BP systolic 118–190; BP diastolic 53–98
[2019-06-02] MEDS: DEXTROSE 50% SYRINGE 50 ML IV PRN ×2 (02:43→03:32)
[2019-06-02] MEDS: METRONIDAZOLE 500MG/NS 100ML 100 ML IV SCH ×3 (05:03→22:00)
[2019-06-02] MEDS: LEVOTHYROXINE SODIUM 75 MCG TAB PO SCH (05:03)
[2019-06-02] MEDS: LEVOTHYROXINE SODIUM 100 MCG TAB PO SCH (05:03)
--- NOTE | 2019-06-02 06:13 | NUR ---
SPOKE TO DR LEON AND NOTIFY HIM THAT PT BLOOD SUGAR DROP TO 27. D50 WAS GIVEN AND IT WENT TO 202. WITHIN THIRTY MINUTES IT DROP TO 98. ANOTHER D50 WAS GIVEN AND BLOOD GLUCOSE WAS RECHECK AFTER THIRTY MINUTES AND IT WAS 153. NO NEW ORDERS AT THIS TIME. WILL CONTINUE TO MONITOR.
[2019-06-02 06:36] LABS: ANION GAP 21.5 mmol/L (8-16); CALCIUM 7.7 mg/dL (8.4-10.2); CREATININE, SERUM 11.1 mg/dL (0.57-1.11); POTASSIUM 4.5 mmol/L (3.5-5.1)
[2019-06-02] MEDS: INSULIN REGULAR, HUMAN 100 UNIT/1 ML 3ML VIAL SQ SCH ×4 (07:58→20:18)
[2019-06-02] MEDS: DOCUSATE SODIUM 100 MG CAP PO SCH ×2 (07:59→16:33)
[2019-06-02] MEDS: CARVEDILOL 3.125 MG TAB PO SCH ×2 (08:00→16:34)
[2019-06-02] MEDS: CALCIUM ACETATE 667 MG GELCAP PO SCH ×3 (08:00→20:18)
[2019-06-02] MEDS: FUROSEMIDE 40 MG TAB PO SCH ×2 (08:00→16:34)
[2019-06-02] MEDS: CLOPIDOGREL BISULFATE 75 MG TAB PO SCH (08:00)
[2019-06-02] MEDS ORDERED: DOCUSATE SODIUM 100 MG CAP PO SCH (09:00)
[2019-06-02] MEDS: HYDROCORTISONE 2.5% PR CRM 1 OZ TUBE TOP SCH ×2 (09:00→16:32)
[2019-06-02] MEDS ORDERED: SODIUM CHLORIDE 0.9% 1000ML 2,000 ML ONE (09:44)
[2019-06-02] MEDS: ACETAMINOPHEN/CODEINE 300MG - 30MG TAB PO PRN ×2 (12:49→19:30)
[2019-06-02] MEDS: NIFEDIPINE CR 30 MG TAB PO SCH ×2 (13:00→20:05)
--- NOTE | 2019-06-02 15:37 | Progress Note ---
DATE: 06/02/2019 CONSULT: Marvin Goodman MD., with Nephrology. CHIEF COMPLAINT: Left hip pain and left lower quadrant pain. SUBJECTIVE: The patient was seen while in dialysis. She reports severe left hip pain, especially with movement. X-ray has been ordered of the left hip, pain medication as needed for left hip pain. She denies any trauma or fall. PHYSICAL EXAMINATION: VITAL SIGNS: Temperature 97.7, pulse is 75, respirations 20, blood pressure 163/80, pulse ox 98% on 2 L of nasal cannula. GENERAL: No acute distress. HEENT: Normocephalic, atraumatic. NECK: Supple and midline. LUNGS: Clear to auscultation. CARDIOVASCULAR: Regular rate and rhythm. GI: Left lower quadrant pain. Otherwise, soft and active bowel sounds. NEUROLOGIC: Alert, awake, and oriented x3. MUSCULOSKELETAL: Left hip pain. No edema or redness noted. SKIN: Dry and intact. LABORATORY DATA: Sodium 134, potassium is 4.5, BUN is 54, creatinine is 11.10. Estimated GFR is 4, glucose 155, phosphorus is 6.0, calcium 7.7. IMPRESSION AND PLAN: 1. Acute sigmoid diverticulitis. Continue Levaquin every other day and Flagyl. Probiotics b.i.d. We will continue pain management as needed. 2. Left hip pain. No reports of trauma or fall. We will check left hip x-ray and manage pain as needed. Physical therapy to evaluate and treat. 3. Hyperkalemia due to missed dialysis. Now resolved. Hemodialysis per Nephrology. 4. Hypertension. We will continue with home medication. 5. Diabetes. Continue sliding scale insulin coverage as needed. 6. History of chronic obstructive pulmonary disease. Stable. We will continue neb treatments as needed. 7. Congestive heart failure. We will continue with Lasix and beta-blockers. 8. Hypothyroidism, noncompliant with medication. We will resume home dose of Synthroid 175 mcg. 9. End-stage renal disease. Dialysis Sunday, , and Sunday. Noncompliant with hemodialysis. Defer to Nephrology. 10. Anemia of chronic disease. Continue to monitor closely. 11. History of bipolar. Continue home medications. 12. Deep vein thrombosis prophylaxis. We will hold chemical anticoagulation due to anemia. Dictated by JOSE Hernandez Yiching MD BALJINDER Bello/JONATHAN /[id number] Seen and examined. Agree with the findings and plan as documented by JOSE Abreu. HAYLEY
--- NOTE | 2019-06-02 16:32 | NUR ---
Nutrition Screen Note RD Recommendation for Physician: - Continue current diet Plan of Care: RD following, monitoring for tolerance and adequacy Nutrition reason for involvement: Nutrition Risk Trigger- dx of ESRD Primary Diagnose(s): ESRD on HD, hip pain, hyperkalemia PMH: HTN, DM, COPD, CHF, ESRD on HD, hypothyroidism, bipolar Ht: 66 in Wt: 207 lb at time of visit BMI: 32.9 kg/m2 IBW: [address] Assessment: (06/02) 74 YOF admitted for ESRD on HD, hip pain, and hyperkalemia. Pt missed 2 HD treatments 2/2 hip pain. Pt seen today per dx screen. Pt very groggy/sleepy at time of visit, receiving HD tx. Pt can not recall po hx, does report UBW of 220 lb- acute wt loss of 6% noted. Noted 75% meal intake today per chart. No GI distress. Pt with no questions or concerns at time of visit. Chart reviewed. Labs and meds reviewed. Will monitor and continue to follow Current Diet: 1800 ADA, Renal Malnutrition Evaluation (06/02) The patient does not meet criteria for a specified degree of malnutrition at this time. Will re-evaluate at follow-up as appropriate. Energy intake: Unable to assess, pt can not report po hx- very sleepy at time of visit Weight loss: >5% in 1 month (Acute)- pt reports UBW of 220 lb Fat loss: none, ample skinfold thickness of upper arm Muscle loss: none, shoulder round Supporting Evidence: Fluid accumulation: none observed Functional Status: unable to evaluate Diet Education Needs Assessment: Diet education not indicated. Diet tolerance: tolerating po Nutrition Care Level: low Signed: Renea Duggan RD, LD, [facility]
[2019-06-02] MEDS ORDERED: LEVOFLOXACIN 750MG/D5W 150ML 150 ML IV ONE (16:45)
--- NOTE | 2019-06-02 17:29 | Diagnostic Imaging Report ---
EXAMINATION: HIP LEFT 2-3 VW (+/- PELVIS) INDICATION: Hip pain COMPARISON: None FINDINGS: AP view of the pelvis and AP and frog-leg views of the left hip were obtained. No acute fracture or dislocation. Alignment appears anatomic. There are severe degenerative changes of the lower lumbar spine and of both hip joints with joint space narrowing, subchondral cystic change, subchondral sclerosis, and osteophyte formation. Diffuse atherosclerotic arterial calcifications. IMPRESSION: No acute osseous injury. Severe degenerative changes of both hip joints. Severe degenerative changes of the partially visualized lower lumbar spine. Signed by: Gustavo Love MD on 06/02/2019 5:26 PM
--- NOTE | 2019-06-02 19:00 | NUR ---
patient received awake, alert, lying quietly in bed. no c/o pain noted. respirations even and unlabored. 02/2l/nc in use. pm assessment complete. patient instructed to call for assistance when needed.
--- NOTE | 2019-06-02 19:30 | NUR ---
patient medicated with tylenol #3 1 po for c/o generalized pain 12/23 at this time per patients request.
[2019-06-03] VITALS (9 sets, daily range): BP systolic 112–139; BP diastolic 55–73
[2019-06-03] MEDS: METRONIDAZOLE 500MG/NS 100ML 100 ML IV SCH ×3 (05:23→21:05)
[2019-06-03] MEDS: LEVOTHYROXINE SODIUM 100 MCG TAB PO SCH (05:24)
[2019-06-03] MEDS: LEVOTHYROXINE SODIUM 75 MCG TAB PO SCH (05:24)
[2019-06-03 06:21] LABS: BASOPHILS % 0.3 % (0.0-1.0); EOSINOPHILS # (AUTO) 0.2 (0.0-0.4); EOSINOPHILS % 3.2 % (0.0-6.0); LYMPHOCYTES % 14.2 % (18.0-39.1); MEAN CORPUSCULAR HEMOGLOBIN 29.4 pg (28-32); MEAN CORPUSCULAR HGB CONC 29.6 g/dL (31-35); MEAN CORPUSCULAR VOLUME 99.5 fL (81-99); MONOCYTES # (AUTO) 0.7 (0.2-0.8); MONOCYTES % 10.7 % (4.4-11.3); NEUTROPHILS # (AUTO) 4.9 (2.1-6.9); PLATELET COUNT 120 x10e3/uL (140-360); RED BLOOD COUNT 2.04 x10e6/uL (3.6-5.1); RED CELL DISTRIBUTION WIDTH 15.9 % (11.7-14.4)
[2019-06-03 06:26] LABS: HEMATOCRIT 20.3 % (34.2-44.1)
--- NOTE | 2019-06-03 06:30 | NUR ---
hh 6.0/20.3 per lab this am. order placed for repeat hh at this time.
[2019-06-03 06:51] LABS: HEMATOCRIT 30.5 % (34.2-44.1); HEMOGLOBIN 9.2 g/dL (12.0-16.0)
--- NOTE | 2019-06-03 07:08 | NUR ---
PT AWAKE RESP EVEN AND UNLABORED AT THIS TIME NO DISTRESS NOTED, PT EASILY AROUSED, TO NAME, NO C/O PAIN AT THIS TIME WHEN ASKED, CALL LIGHT IN REACH.
[2019-06-03 07:51] LABS: ANION GAP 12.2 mmol/L (8-16); CALCIUM 7.9 mg/dL (8.4-10.2); CREATININE, SERUM 6.74 mg/dL (0.57-1.11); POTASSIUM 4.2 mmol/L (3.5-5.1)
[2019-06-03] MEDS: DOCUSATE SODIUM 100 MG CAP PO SCH ×2 (09:00→17:22)
[2019-06-03] MEDS: FUROSEMIDE 40 MG TAB PO SCH ×2 (09:00→17:22)
[2019-06-03] MEDS: NIFEDIPINE CR 30 MG TAB PO SCH ×2 (09:00→21:05)
[2019-06-03] MEDS: CALCIUM ACETATE 667 MG GELCAP PO SCH ×3 (09:00→21:05)
[2019-06-03] MEDS: CLOPIDOGREL BISULFATE 75 MG TAB PO SCH (09:00)
[2019-06-03] MEDS: CARVEDILOL 3.125 MG TAB PO SCH ×2 (09:00→17:41)
[2019-06-03] MEDS: ACETAMINOPHEN/CODEINE 300MG - 30MG TAB PO PRN ×2 (09:33→15:03)
[2019-06-03] MEDS: INSULIN REGULAR, HUMAN 100 UNIT/1 ML 3ML VIAL SQ SCH ×4 (09:35→21:04)
[2019-06-03] MEDS: HYDROCORTISONE 2.5% PR CRM 1 OZ TUBE TOP SCH ×2 (11:23→17:30)
--- NOTE | 2019-06-03 12:15 | NUR ---
SPOKE WITH PATIENT, LET HER KNOW THAT PHYSICAL THERAPY IS RECOMMENDING A PRISON FACILITY, SHE STATES SHE DOES NOT WANT TO GO TO A CARE HOME, SHE STATES SHE WANTS TO GO HOME WITH HOME HEALTH, STATES IS REALLY WORRIED BECAUSE THE NURSE SAID WHEN THEY TAKE THE NASAL CANNULA OFF SHE DROPS 20%, LET HER KNOW THAT CASE MANAGEMENT WILL BE FOLLOWING HER CARE AND WILL BE ASSISTING WITH DISCHARGE NEEDS. LEFT CARD FOR ANY QUESTIONS.
--- NOTE | 2019-06-03 15:24 | Progress Note ---
DATE: 06/03/2019 CONSULT: Dr. Goodman with Nephrology. CHIEF COMPLAINT: Left hip pain and left lower quadrant pain. SUBJECTIVE: The patient is seen resting in bed. She reports severe left hip pain. X-ray showed severe degenerative joint disease. She is encouraged to work with physical therapy and control pain. PHYSICAL EXAMINATION: VITAL SIGNS: Temperature is 96.3, pulse is 68, respirations 17, blood pressure 139/65, and pulse ox 90 on 2 L of nasal cannula. GENERAL: No acute distress. HEENT: Normocephalic and atraumatic. NECK: Supple and midline. LUNGS: Clear to auscultation. CARDIOVASCULAR: Regular rate and rhythm. GI: Left lower quadrant pain improving. ABDOMEN: Soft with active bowel sounds. NEUROLOGY: Alert, awake, and oriented x3. MUSCULOSKELETAL: Left hip pain with decreased ROM due to pain. No edema or redness noted. SKIN: Dry. LABORATORY DATA: WBC 6.89, hemoglobin is 9.2, hematocrit 30.5, and platelet is 120. Sodium is 138, potassium 4.2, CO2 32, creatinine is 6.4, estimated GFR is 7, glucose 124, and calcium is 7.9. IMAGING: Left hip x-ray shows no acute osseous injury. Shows severe degenerative changes of both hip joints. Severe degenerative changes of partially visualized lower lumbar spine. IMPRESSION AND PLAN: 1. Acute sigmoid diverticulitis. We will continue with Levaquin every other day and Flagyl, and probiotics b.i.d. Tolerating diet. 2. Left hip pain. X-ray showed severe degenerative changes. We will continue pain management as needed and physical therapy. 3. Hyperkalemia due to missed dialysis, now resolved. Continue dialysis per Nephrology. 4. Hypertension. Continue home medication. 5. Diabetes. Continue sliding scale insulin coverage. 6. History of chronic obstructive pulmonary disease, stable. We will continue on nebs as needed. 7. Congestive heart failure. We will continue with Lasix and beta blockers. 8. Hypothyroidism, noncompliant with medication. Resume Synthroid 175 mcg daily. 9. End-stage renal disease, dialysis on Sunday, and Sunday, noncompliant with hemodialysis. Defer to Nephrology. 10. Anemia of chronic disease. Hemoglobin is stable at 9.2. We will continue to monitor closely. 11. History of bipolar. Continue home medication. 12. Deep vein thrombosis prophylaxis. We will hold chemical anticoagulation due to anemia. 13. Disposition is home with home health per physical therapy. Dictated by JOSE Hernandez MD BALJINDER Mills/JONATHAN /[id number]
--- NOTE | 2019-06-03 19:10 | NUR ---
RECEIVED REPORT FROM PREVIOUS NURSE. CALL LIGHT WITHIN REACH. PATIENT IN BED.
--- NOTE | 2019-06-03 19:26 | NUR ---
report given to oncoming nurse, pt stable .
[2019-06-04 05:12] VITALS: BP 168/73
[2019-06-04] MEDS: METRONIDAZOLE 500MG/NS 100ML 100 ML IV SCH ×2 (05:50→14:04)
[2019-06-04] MEDS: LEVOTHYROXINE SODIUM 100 MCG TAB PO SCH (05:50)
[2019-06-04] MEDS: LEVOTHYROXINE SODIUM 75 MCG TAB PO SCH (05:51)
[2019-06-04] MEDS: ACETAMINOPHEN/CODEINE 300MG - 30MG TAB PO PRN (06:41)
--- NOTE | 2019-06-04 07:10 | NUR ---
PATIENT IS ALERT AND IN STABLE CONDITION WITH NO S/S OF RESPIRATORY DISTRESS. NO PAIN VOICED AT THIS TIME. LEFT TMA. DIAPER APPLIED. BED ALARM APPLIED. CALL LIGHT IS WITHIN REACH, PATIENT INSTRUCTED TO CALL FOR ASSISTANCE NEEDED.
--- NOTE | 2019-06-04 07:15 | NUR ---
Gave report to oncoming nurse. Call light within reach. Patient in bed.
[2019-06-04] MEDS: INSULIN REGULAR, HUMAN 100 UNIT/1 ML 3ML VIAL SQ SCH ×3 (07:30→16:30)
[2019-06-04] MEDS: CLOPIDOGREL BISULFATE 75 MG TAB PO SCH (07:56)
[2019-06-04] MEDS: CALCIUM ACETATE 667 MG GELCAP PO SCH ×2 (07:56→14:04)
[2019-06-04] MEDS: DOCUSATE SODIUM 100 MG CAP PO SCH (07:56)
[2019-06-04 08:00] VITALS: BP 139/67
[2019-06-04] MEDS: HYDROCORTISONE 2.5% PR CRM 1 OZ TUBE TOP SCH (08:04)
[2019-06-04] MEDS ORDERED: SODIUM CHLORIDE 0.9% 1000ML 2,000 ML ONE (08:46)
[2019-06-04] MEDS: CARVEDILOL 3.125 MG TAB PO SCH (08:47)
[2019-06-04] MEDS: FUROSEMIDE 40 MG TAB PO SCH (08:47)
[2019-06-04] MEDS: NIFEDIPINE CR 30 MG TAB PO SCH (08:47)
[2019-06-04] MEDS ORDERED: LEVOFLOXACIN 500 MG TAB PO SCH (09:00)
[2019-06-04] MEDS ORDERED: LIDOCAINE 4% PATCH TP SCH (09:00)
[2019-06-04 10:10] VITALS: BP 139/67
--- NOTE | 2019-06-04 10:55 | NUR ---
RECEIVED CALL FROM FABIAN CARDOZO N.P. REGARDING PATIENT'S C/O LEFT SIDED HIP PAIN AND PAIN MEDICATION. NEW ORDER RECEIVED.
[2019-06-04] MEDS ORDERED: HYDROCODONE/APAP 5MG-325MG TAB PO PRN (11:00)
[2019-06-04 11:53] VITALS: BP 154/77
--- NOTE | 2019-06-04 12:52 | NUR ---
ORTHOPEDIC CONSULTATION Patient is s 74 yo F with Bilateral (left worse than right) lateral hip pain that happened after a fall. She is a limited ambulator and typically uses a wheel chair for mobility. Pain located more laterally around the trochanters and radiates towards the knee laterally. PMdHx: HTN, ESRD, DM, COPD, CHF, Hypothyroidism, Anemia & Bipolar Disorder Allergies: Pneumococcal Vaccine Surgical Hx: Left Foot Amputations, AV Graft, Hysterectomy FamHx: CAD SocHx: Neg Tob, EtOH, Drugs Meds: See reconciliation VS T 96.8, HR 70, RR 28, BP 154/77 O2 97% Bilateral Hips No open lesions or sores, no gross deformity TTP of greater trochanter with tenderness down IT Band Pain on lateral side with range of motion Patient able to move hip independently Midfoot amputations noted Patient able to flex and extend knees Soft compartments No calf tenderness CT: Bilateral Hip OA Hips: No gross fracture, dislocation. There are degenerative changes of bilateral hips 74 yo F with Bilateral Greater Trochanteric Bursitis No acute orthopedic intervention required at this time. Recommends anti-inflammatories as per medicine Voltaren gel to bilateral hips DVT Prophylaxis PT- WBAT May follow up at outpatient. If no improvements after a short course of NSAIDs, will consider trochanteric corticosteroid injections. Thank you for the consultation DO [facility]
[2019-06-04] MEDS ORDERED: DICLOFENAC SOD 1% GEL 100 GM TUBE TP SCH (13:10)
[2019-06-04] MEDS ORDERED: CLOPIDOGREL75 MG PO (15:27)
[2019-06-04] MEDS ORDERED: LEVOTHYROXINE75 MCG PO (15:27)
[2019-06-04] MEDS ORDERED: FUROSEMIDE40 MG PO (15:27)
[2019-06-04] MEDS ORDERED: FLAGYL500 MG PO (15:46)
[2019-06-04] MEDS ORDERED: LEVAQUIN500 MG PO (15:48)
[2019-06-04 16:01] VITALS: BP 127/58
--- NOTE | 2019-06-04 18:13 | NUR ---
PATIENT DISCHARGE HOME- PATIENT OFF THE UNIT AT 1801 PER WHEELCHAIR ACCOMPANIED BY RN AND PCT TO THE PATIENT'S PERSONAL VEHICLE. PATIENT IS IN STABLE CONDITION WITH NO S/S OF RESPIRATORY DISTRESS. NO PAIN VOICED. BOTH IV'S TO RIGHT HAND WERE REMOVED WITH TIPS INTACT. DISCHARGE TEACHING, INSTRUCTIONS, AND MEDICATIONS GIVEN TO THE PATIENT. ALL PERSONAL ITEMS WERE TAKEN BY THE PATIENT'S .
--- NOTE | 2019-06-05 14:02 | Discharge Summary ---
PRIMARY CARE PHYSICIAN: Dr. Patel at [facility]. FINAL DIAGNOSES: 1. Acute sigmoid diverticulitis. 2. Left hip bursitis. 3. Hyperkalemia due to missed dialysis. 4. Hypertension. 5. Diabetes. 6. Chronic obstructive pulmonary disease. 7. Congestive heart failure, diastolic. 8. Hypothyroidism, noncompliant with medications. 9. End-stage renal disease. 10. Anemia of chronic disease. 11. History of bipolar. CONSULTANTS: 1. Dr. Goodman with Nephrology. 2. Dr. Mosley with Orthopedics. PROCEDURES: None except dialysis. HISTORY: Per HPI. HOSPITAL COURSE: Ms. Horn was admitted with left hip pain and hyperkalemia due to missed dialysis x2 sessions. CT of abdomen and pelvis showed acute sigmoid diverticulitis. She was started on Levaquin and Flagyl, and advance diet as tolerated. However, her left hip pain has been very severe, so x-ray was done, which showed severe degenerative changes to both hip joints. Orthopedics was consulted and evaluated the patient, advised for Voltaren 1 g topical to be applied q.i.d. and followup with him outpatient in 1 to 2 weeks for further evaluation. Vital signs are stable. Abdominal pain improved, but afebrile. We will discharge home on p.o. antibiotics and topical cream to follow up with PCP and Orthopedics. PHYSICAL EXAMINATION: VITAL SIGNS: Temperature 96.8, pulse is 70, respirations 18, blood pressure 154/77, pulse ox is 97% on nasal cannula. GENERAL: No acute distress. HEENT: Normocephalic, atraumatic. NECK: Supple. LUNGS: Clear to auscultation. CARDIOVASCULAR: Regular rate and rhythm. GI: Left lower quadrant pain improved. NEUROLOGIC: Alert, awake, and oriented. MUSCULOSKELETAL: Left hip pain. LABORATORY DATA: Reviewed. CONDITION AT DISCHARGE: Improved. DISCHARGE MEDICATIONS: See medication reconciliation list. FOLLOWUP: Follow up with PCP, Nephrology, and Orthopedics in 1 week. TIME SPENT: Total discharge time is 38 minutes. Dictated by JOSE Hernandez Yiching Anastacio Sutton MD MY/MODL /[id number] cc: Jorge Anaya MD
== END 2019-06-04 18:07 | disposition home or self-care (01) | DRG 391 ==
LOC: ER 14:16 → ERHOLD 17:37 → ICU 18:05 → MED/SURG3 06-01 12:43
PROVIDERS: ADMIT Internal Medicine; ATTEND Internal Medicine
PROC: 5A1D70Z Performance of Urinary Filtration, Intermittent, Less than 6 Hours Per Day (ICD-10-PCS; principal; 2019-05-31)
PROC: 5A1D70Z Performance of Urinary Filtration, Intermittent, Less than 6 Hours Per Day (ICD-10-PCS; 2019-06-02)
PROC: 5A1D70Z Performance of Urinary Filtration, Intermittent, Less than 6 Hours Per Day (ICD-10-PCS; 2019-06-04)
DX: K57.12 Diverticulitis of small intestine without perforation or abscess without bleeding (principal); N18.6 End stage renal disease; I13.2 Hypertensive heart and chronic kidney disease with heart failure and with stage 5 chronic kidney disease, or end stage renal disease; J96.10 Chronic respiratory failure, unspecified whether with hypoxia or hypercapnia; I50.32 Chronic diastolic (congestive) heart failure; E87.5 Hyperkalemia; Z99.2 Dependence on renal dialysis; E03.9 Hypothyroidism, unspecified; J44.9 Chronic obstructive pulmonary disease, unspecified; E78.5 Hyperlipidemia, unspecified; D63.8 Anemia in other chronic diseases classified elsewhere; Z91.15 Patient's noncompliance with renal dialysis; Z88.7 Allergy status to serum and vaccine; Z88.8 Allergy status to other drugs, medicaments and biological substances; E11.22 Type 2 diabetes mellitus with diabetic chronic kidney disease; F31.9 Bipolar disorder, unspecified; M71.552 Other bursitis, not elsewhere classified, left hip; Z91.14 Patient's other noncompliance with medication regimen
CPT/HCPCS: 36415; 72192; 80048; 80053; 82550; 82553; 82948; 84100; 84484; 85014; 85018; 85025; 85610; 85730; 86705; 86706; 87340; 90962; 93005; 94640; 97139; 99284; J0610; J1817; J1885; J2543; J7030; J7050; J7799

== ENCOUNTER 2019-06-09 03:40 | Emergency (ER) | payer MEDICARE ==
[~2019-06-09] VITALS: Ht 167.6 cm; Wt 92.1 kg
[~2019-06-09 03:40] MED LIST changes: +FLAGYL500 MG PO; +LEVAQUIN500 MG PO
--- NOTE | 2019-06-09 04:41 | NUR ---
PT HAD SMALL BM; PT CLEANED AND NEW DIAPER PLACED ON PT;
--- NOTE | 2019-06-09 05:09 | Diagnostic Imaging Report ---
EXAM: Abdomen Radiograph 1 View INDICATION: Constipation COMPARISON: Pelvis CT 05/31/2019, abdominal radiograph 05/12/2019 FINDINGS: Persistent opacities in the lung bases consistent with scarring/atelectasis. No lines or tubes. No evidence of colonic stool overload. No dilated loops of small bowel. No abnormal abdominal calcifications.. No abnormal soft tissue masses. No pneumoperitoneum. No acute osseous abnormality. Degenerative changes in the spine, hips, and pelvis. IMPRESSION: Nonobstructive bowel gas pattern. Gas within the rectum. No radiographic evidence of colonic stool overload. Signed by: Kit Roldan DO on 06/09/2019 5:05 AM
--- NOTE | 2019-06-09 05:16 | NUR ---
[facility] CALLED FOR TRANSPORT
== END 2019-06-09 05:50 | disposition home or self-care (01) ==
LOC: ER 03:40
DX: K59.00 Constipation, unspecified (principal); I12.0 Hypertensive chronic kidney disease with stage 5 chronic kidney disease or end stage renal disease; E11.22 Type 2 diabetes mellitus with diabetic chronic kidney disease; N18.6 End stage renal disease; Z99.2 Dependence on renal dialysis; E78.5 Hyperlipidemia, unspecified; F31.9 Bipolar disorder, unspecified
CPT/HCPCS: 74018; 99283

== ENCOUNTER 2019-08-22 21:58 | Observation (INO) | payer MEDICARE ==
[~2019-08-22] VITALS: Ht 167.6 cm; Wt 92.1 kg
[2019-08-22] MEDS ORDERED: ASPIRIN 81 MG CHEW TAB PO ONE (22:15)
[2019-08-22 23:33] LABS: HEMATOCRIT 33.2 % (34.2-44.1); HEMOGLOBIN 10.8 g/dL (12.0-16.0); MEAN CORPUSCULAR VOLUME 89.7 fL (81-99)
[2019-08-22 23:34] LABS: BASOPHILS % 0.2 % (0.0-1.0); EOSINOPHILS # (AUTO) 0.7 (0.0-0.4); EOSINOPHILS % 1.3 % (0.0-6.0); LYMPHOCYTES # (AUTO) 1.1 (1.0-3.2); LYMPHOCYTES % 20.4 % (18.0-39.1); MEAN CORPUSCULAR HEMOGLOBIN 29.2 pg (28-32); MEAN CORPUSCULAR HGB CONC 32.5 g/dL (31-35); MONOCYTES # (AUTO) 0.4 (0.2-0.8); MONOCYTES % 6.5 % (4.4-11.3); NEUTROPHILS % 71.4 % (38.7-80.0); PLATELET COUNT 171 x10e3/uL (140-360); RED CELL DISTRIBUTION WIDTH 14.4 % (11.7-14.4)
--- NOTE | 2019-08-22 23:35 | NUR ---
32 NOTIFIED, 1 AMP OF D50 GIVEN, PATIENT HAS RETURNED TO BASELINE
[2019-08-22] MEDS ORDERED: DEXTROSE 50% SYRINGE 50 ML IV STA (23:36)
[2019-08-22] MEDS ORDERED: DEXTROSE 50% SYRINGE 50 ML IV ONE (23:36)
[2019-08-23] VITALS (8 sets, daily range): BP systolic 100–228; BP diastolic 81–103
[2019-08-23 00:01] LABS: ALANINE AMINOTRANSFERASE 9 IU/L (0-55); ALBUMIN 3.2 g/dL (3.5-5.0); ALBUMIN/GLOBULIN RATIO 0.7 (0.8-2.0); ALKALINE PHOSPHATASE 96 IU/L (40-150); BLOOD UREA NITROGEN 122 mg/dL (7-26); BUN/CREATININE RATIO 9 (6-25); CALCIUM 7.6 mg/dL (8.4-10.2); CARBON DIOXIDE 16 mmol/L (22-29); CHLORIDE 101 mmol/L (98-107); CREATINE KINASE 136 IU/L (29-168); CREATININE, SERUM 14.16 mg/dL (0.57-1.11); EST GLOMERULAR FILTRATION RATE 3 ML/MIN (60-); SODIUM 138 mmol/L (136-145)
--- NOTE | 2019-08-23 00:07 | Diagnostic Imaging Report ---
EXAMINATION: CHEST SINGLE (PORTABLE) INDICATION: Missed dialysis for a week. COMPARISON: Chest radiograph/. FINDINGS: TUBES and LINES: None. LUNGS: There are mildly hyperinflated. Bilateral pulmonary venous congestion. PLEURA: Trace bilateral pleural effusions. No evidence of pneumothorax. HEART AND MEDIASTINUM: There is moderate cardiomegaly. Calcifications of the thoracic aorta. BONES AND SOFT TISSUES: No acute osseous abnormality. Surgical clips in the left midneck. UPPER ABDOMEN: No free air under the diaphragm. IMPRESSION: Bilateral pulmonary venous congestion Signed by: Dr. Ramírez Warren M.D. on 08/23/2019 12:04 AM
[2019-08-23 00:08] LABS: GLUCOSE 54 mg/dL (74-118)
[2019-08-23] MEDS ORDERED: DEXTROSE 50% SYRINGE 50 ML IV STA ×2 (00:15→03:33)
[2019-08-23] MEDS ORDERED: DEXTROSE 50% SYRINGE 50 ML IV PRN (00:30)
[2019-08-23] MEDS ORDERED: ONDANSETRON HCL INJ 2MG/ML 2ML 2 MG/ML VIAL IV PRN (00:30)
[2019-08-23] MEDS ORDERED: DEXTROSE 5%/0.45% SOD CHL 1,000 ML IV ONE (00:30)
--- NOTE | 2019-08-23 01:00 | NUR ---
patient had bowel movement, brief changed.
[2019-08-23 04:29] LABS: EOSINOPHILS % 0.6 % (0.0-6.0); HEMATOCRIT 32.9 % (34.2-44.1); HEMOGLOBIN 10.6 g/dL (12.0-16.0); LYMPHOCYTES # (AUTO) 0.8 (1.0-3.2); LYMPHOCYTES % 16.7 % (18.0-39.1); MEAN CORPUSCULAR HGB CONC 32.2 g/dL (31-35); MEAN CORPUSCULAR VOLUME 90.1 fL (81-99); MONOCYTES # (AUTO) 0.4 (0.2-0.8); MONOCYTES % 8.9 % (4.4-11.3); NEUTROPHILS # (AUTO) 3.5 (2.1-6.9); NEUTROPHILS % 73.6 % (38.7-80.0); PLATELET COUNT 159 x10e3/uL (140-360); RED BLOOD COUNT 3.65 x10e6/uL (3.6-5.1); RED CELL DISTRIBUTION WIDTH 14.4 % (11.7-14.4)
[2019-08-23 04:54] LABS: CREATINE KINASE MB 5.3 ng/mL (0-5.0)
[2019-08-23 04:56] LABS: ALBUMIN/GLOBULIN RATIO 0.7 (0.8-2.0); ANION GAP 27.2 mmol/L (8-16); CALCIUM 7.2 mg/dL (8.4-10.2); CREATININE, SERUM 14.63 mg/dL (0.57-1.11); POTASSIUM 5.2 mmol/L (3.5-5.1)
--- NOTE | 2019-08-23 05:33 | NUR ---
patient had a bowel movement, brief and linen changed.
--- NOTE | 2019-08-23 07:10 | NUR ---
report given in full to mikala stinson
--- NOTE | 2019-08-23 07:30 | NUR ---
blood sugar checked result 133
--- NOTE | 2019-08-23 07:42 | NUR ---
incontinece care for stool provided for patient.
[2019-08-23] MEDS: INSULIN REGULAR, HUMAN 100 UNIT/1 ML 3ML VIAL SQ SCH ×4 (07:50→21:00)
[2019-08-23] MEDS: DEXTROSE 10% 1,000 ML IV SCH (08:23)
--- NOTE | 2019-08-23 09:57 | NUR ---
went to check on patient. Patient lying in bed resting. Checked to see patient had an episode of incontinence patient was clean and dry. Also checked patients blood sugar. Result 141.
--- NOTE | 2019-08-23 10:02 | NUR ---
applied wedges under patient to provide relief from position discomfort
--- NOTE | 2019-08-23 10:53 | NUR ---
spoke with Dr. Mercado regarding patients dialysis order. Was told to call dialysis company who would notify him to get orders for dialysis for patient.
--- NOTE | 2019-08-23 10:58 | NUR ---
spoke with [facility] [facility] [employer] [facility] call center regarding getting patient dialyzed. Was told that they would get in contact with consulting MD in order to get orders.
--- NOTE | 2019-08-23 12:06 | NUR ---
incontinence care for stool provided for patient
--- NOTE | 2019-08-23 12:17 | NUR ---
attempted to call report was told that nurse would call back
[2019-08-23] MEDS ORDERED: MELATONIN 3 MG TAB PO PRN (14:45)
[2019-08-23] MEDS ORDERED: SODIUM CHLORIDE 0.9% 1000ML 1,000 ML ONE (15:15)
[2019-08-23 15:23] LABS: CREATINE KINASE MB 5.9 ng/mL (0-5.0)
[2019-08-23] MEDS: FUROSEMIDE 40 MG TAB PO SCH (17:00)
[2019-08-23] MEDS: HYDROCORTISONE 2.5% PR CRM 1 OZ TUBE TOP SCH (17:00)
[2019-08-23] MEDS: CARVEDILOL 3.125 MG TAB PO SCH (17:00)
[2019-08-23] MEDS: CALCIUM ACETATE 667 MG GELCAP PO SCH ×2 (17:22→21:15)
--- NOTE | 2019-08-23 18:45 | Consultation ---
DATE OF CONSULTATION: 08/23/2019 REQUESTING PHYSICIAN: Eleuterio Sutton MD REASON FOR CONSULTATION: ESRD. Thank you for allowing us to participate in Ms. Horn's care. HISTORY OF PRESENT ILLNESS: This is a 74-year-old female, history of end-stage renal disease, missed dialysis due to chronic diarrhea, came with worsening weakness, potassium slightly high. Denies any new dyspnea. It is not clear that the diarrhea was severe enough to miss it, but she has used this reason before. PAST MEDICAL HISTORY: 1. ESRD. 2. Type 2 diabetes. 3. Hypertension. 4. Partial amputation of the foot. 5. Diverticulitis. 6. Hemorrhoids. 7. Anemia of CKD. 8. CHF/fluid overload. 9. Status post hysterectomy. MEDICATIONS: Please see list. ALLERGIES: PLEASE SEE LIST. SOCIAL HISTORY: Does not abuse alcohol or smoke. FAMILY HISTORY: Type 2 diabetes. REVIEW OF SYSTEMS: CONSTITUTIONAL: Feels weak. NEURO: Feels weak. MUSCULOSKELETAL: Left foot amputation. CARDIAC: No angina or syncope. GI: Chronic diarrhea. Rest of review is negative. PHYSICAL EXAMINATION: GENERAL: Lying in bed, no distress. VITAL SIGNS: Temperature 97.7, pulse 89, blood pressure 105/73. CHEST: Faint crackles at the bases. CARDIAC: Normal heart tones. Rhythm sounds regular. ABDOMEN: Benign. EXTREMITIES: No trace edema. NEUROLOGIC: Alert, appropriate. Speech is normal. LABORATORY DATA: Chest x-ray shows pulmonary congestion. Hemoglobin 10.8, potassium 5.2, serum CO2 16, creatinine 14.6, BUN 222. ASSESSMENT: 1. End-stage renal disease, lack of dialysis. Question mild uremia. 2. Hyperkalemia. 3. Fluid overload. 4. Acidosis. 5. Diabetic nephropathy. 6. Hypertension. PLAN: Hemodialysis today. Encouraged increase protein intake. Encouraged to have dialysis regularly. Discussed with Dialysis staff. MD ALEIDA FelipeK/MODL /[id number]
--- NOTE | 2019-08-23 21:15 | NUR ---
PATIENT IN STABLE CONDITION, NO SIGNS OF DISTRESS NOTED. NASAL CANNULA IS INTACT AND RUNNING AT 2 LITERS, PATIENT VOICES NO PAIN AT THIS TIME. BOTTOM HAS BEEN INSPECTED AND VENELEX DRESSING HAS BEEN ADDED FOR STAGE 1 TO THE BUTTOCKS. BLOOD PRESSURE IS ELEVATED AND WAS MEDICATED ORDERED AND PATIENT HAS FINISHED DIALYSIS WITH 3 LITERS REMOVED. BED IS IN LOW POSITION, SIDE RAILS ARE UP, BED ALARM IS ON, CALL LIGHT WITHIN REACH, WILL CONTINUE TO MONITOR.
--- NOTE | 2019-08-23 22:36 | History and Physical ---
PRIMARY CARE PHYSICIAN: Dr. Patel at [facility]. CHIEF COMPLAINT: Missed dialysis for a week due to diarrhea. HISTORY OF PRESENT ILLNESS: This is a 74-year-old female with past medical history of hypertension, high cholesterol, diabetes, hypothyroidism, COPD, CHF, anemia, and bipolar, who presented to the ER with complaints of generalized weakness and diarrhea, which have caused her to miss dialysis for a week. She denies any nausea, vomiting, fever, chills, chest pain, cough, or shortness of breath. She reports eating shrimp and rice, which has caused her to have diarrhea ever since then close to a week. In the ER, potassium 5.2, creatinine is 14.16. We will admit for further evaluation. PAST MEDICAL HISTORY: 1. Hypertension. 2. Diabetes type 2, now hypoglycemic. 3. ESRD, on dialysis Sunday, Sunday, and Sunday. 4. COPD, chronic and stable. 5. Chronic CHF. 6. Hypothyroidism. 7. Chronic anemia. 8. History of bipolar. PAST SURGICAL HISTORY: AV graft for dialysis and hysterectomy. FAMILY MEDICAL HISTORY: Both parents have heart disease. SOCIAL HISTORY: She denies any tobacco, alcohol, or illicit drug use. ALLERGIES: SHE IS ALLERGIC TO ATORVASTATIN AND PNEUMOCOCCAL VACCINES. REVIEW OF SYSTEMS: GENERAL: Generalized weakness and fatigue. HEENT: No head trauma. LUNGS: No shortness of breath or cough. CARDIOVASCULAR: No chest pain or palpitations. GI: Reports diarrhea. No abdominal pain, nausea, or vomiting. NEUROLOGIC: No dizziness or disorientation. MUSCULOSKELETAL: Left foot amputation. SKIN: No rash. PHYSICAL EXAMINATION: VITAL SIGNS: Temperature 98.0, pulse is 81, respirations 18, blood pressure 140/81, pulse ox is 100% on 2 L of nasal cannula. GENERAL: No acute distress, fatigue. HEENT: Normocephalic and atraumatic. NECK: Supple and midline. LUNGS: Clear, but decreased breath sounds. CARDIOVASCULAR: Regular rate and rhythm. GI: Soft and nontender. NEUROLOGIC: Alert, awake, and oriented x3. MUSCULOSKELETAL: Left hip pain and no edema with left foot amputation. SKIN: Dry and intact. PSYCH: Calm. LABORATORY DATA: WBC 4.74, hemoglobin 10.6, hematocrit 32.9, and platelets 159. Sodium is 138, potassium is 5.2, creatinine is 14.63. Estimated GFR is 3. Calcium 7.6. Glucose upon arrival is 54. BNP is 687. Troponin x3 negative. IMAGING DATA: Chest x-ray, bilateral pulmonary venous congestion. IMPRESSION: 1. An is diarrhea, likely due to gastroenteritis. She reports eating shrimp with rice, which started thereafter. 2. Hypoglycemia with a history of diabetes, likely due to diarrhea and poor p.o. intake. 3. Hyperkalemia due to missed dialysis. Dialysis today. Nephrology is on the case. 4. Hypertension. We will continue home medications. 5. Diabetes, now hypoglycemic. Sliding scale insulin coverage as needed. 6. Chronic obstructive pulmonary disease, stable. Neb treatments as needed. 7. History of congestive heart failure. We will continue with Lasix and beta-blockers. 8. Hypothyroidism. Noncompliant with medications. We will resume Synthroid 175. 9. Anemia of chronic diseases. We will continue to monitor closely. 10. History of bipolar. We will resume home medications. 11. Deep vein thrombosis prophylaxis. We will hold chemical anticoagulation due to anemia. 12. Noncompliance with treatment/dialysis. Emphasized on compliance. Dictated by JOSE Hernandez Eleuterio Sutton MD MY/MODL /[id number]
[2019-08-24] VITALS (10 sets, daily range): BP systolic 140–234; BP diastolic 58–107
--- NOTE | 2019-08-24 01:05 | NUR ---
PATIENT'S BLOOD PRESSURE IS ELEVATED TO 234/107, PATIENT STILL RESTING IN BED. CALLED DR. VELASQUEZ AND HYDRALAZINE WAS ORDERED AND ADMINISTERED TO THE PATIENT.WILL CONTINUE TO MONITOR PATIENT AND RECHECK BLOOD PRESSURE.
[2019-08-24] MEDS: HYDRALAZINE HCL 20 MG/ML VIAL IV PRN ×3 (01:06→09:38)
--- NOTE | 2019-08-24 02:06 | NUR ---
BLOOD PRESSURE RECHECKED AND THE READING WAS 193/89, WHICH IS MUCH LOWER BUT STILL ELEVATED. PATIENT STILL RESTING IN BED, STILL CONTINUING TO MONITOR THE SITUATION.
[2019-08-24] MEDS ORDERED: DIATRIZOATE MEGL/DIATRIZOA SOD 30 ML BTL PO ONE (03:10)
[2019-08-24] MEDS: LEVOTHYROXINE SODIUM 75 MCG TAB PO SCH (06:11)
--- NOTE | 2019-08-24 07:00 | NUR ---
BEDSIDE SHIFT REPORT RECEIVED FROM THE PREVIOUS SHIFT RN. EDUCATED PATIENT ABOUT FALL PRECAUTIONS. CALL LIGHT IN EASY REACH. INSTRUCTED PATIENT TO USE CALL LIGHT FOR ANY NEEDS. PATIENT VERBALIZE UNDERSTANDING. BED IS LOW, WHEELS LOCKED, SIDE RAILS UP X2 FOR SAFETY. PT DENIES NEEDS AT THIS TIME. TURNED AND REPOSITIONED THIS MORNING SHE WANTED TO GET OUT OF THE BED BUT IS NOT ABLE TO AMBULATE AT THIS TIME
[2019-08-24 07:05] LABS: ALBUMIN 2.8 g/dL (3.5-5.0); ALBUMIN/GLOBULIN RATIO 0.6 (0.8-2.0); ANION GAP 20.9 mmol/L (8-16); CALCIUM 7.8 mg/dL (8.4-10.2); CREATININE, SERUM 7.9 mg/dL (0.57-1.11); POTASSIUM 3.9 mmol/L (3.5-5.1)
[2019-08-24] MEDS: INSULIN REGULAR, HUMAN 100 UNIT/1 ML 3ML VIAL SQ SCH ×4 (07:30→21:20)
[2019-08-24 07:43] LABS: BASOPHILS % 0.4 % (0.0-1.0); EOSINOPHILS # (AUTO) 0.1 (0.0-0.4); HEMATOCRIT 35.2 % (34.2-44.1); HEMOGLOBIN 11.4 g/dL (12.0-16.0); LYMPHOCYTES # (AUTO) 0.8 (1.0-3.2); LYMPHOCYTES % 15.6 % (18.0-39.1); MEAN CORPUSCULAR HEMOGLOBIN 29.5 pg (28-32); MEAN CORPUSCULAR HGB CONC 32.4 g/dL (31-35); MONOCYTES # (AUTO) 0.7 (0.2-0.8); MONOCYTES % 12.4 % (4.4-11.3); NEUTROPHILS # (AUTO) 3.7 (2.1-6.9); PLATELET COUNT 154 x10e3/uL (140-360); RED BLOOD COUNT 3.87 x10e6/uL (3.6-5.1); RED CELL DISTRIBUTION WIDTH 14.5 % (11.7-14.4)
[2019-08-24] MEDS: DOCUSATE SODIUM 100 MG CAP PO SCH (07:46)
[2019-08-24] MEDS: DEXTROSE 10% 1,000 ML IV SCH ×2 (07:46→21:20)
[2019-08-24] MEDS: FUROSEMIDE 40 MG TAB PO SCH ×2 (07:47→17:21)
[2019-08-24] MEDS: CLOPIDOGREL BISULFATE 75 MG TAB PO SCH (07:48)
[2019-08-24] MEDS: CALCIUM ACETATE 667 MG GELCAP PO SCH ×3 (07:48→17:21)
[2019-08-24] MEDS: NIFEDIPINE CR 30 MG TAB PO SCH (07:55)
[2019-08-24] MEDS: CARVEDILOL 3.125 MG TAB PO SCH ×2 (07:55→17:21)
[2019-08-24] MEDS: HYDROCORTISONE 2.5% PR CRM 1 OZ TUBE TOP SCH ×2 (09:22→17:21)
--- NOTE | 2019-08-24 12:00 | NUR ---
COMPLAINED OF RECTAL AREA PAIN. PATIENT HAS HAD A SMALL SHEILA OF OOZING AND IT IS MAKIIG THE AREA PAINFUL. CAREFULLY CLEANED AND BARRIER PLACED. PATIENT STATES RELIEF
--- NOTE | 2019-08-24 14:00 | NUR ---
PATIENT AGAIN COMPLAINED OF RECTAL AREA PAIN. AGAIN CLEANED CAREFULL OF SMALL AMT OF STOOL AND BARRIER PLACED, PATEINT STATES RELIF AND IS MUCH CLAMER. STILL STATES EVERY TIME SHE SEES STAFF THAT SHE WANTS TO GO HOME. REASSURED, EDUCATED, AND I SPOKE WITH HER DTR ON THE PHONE AND DTR STATES SHE UNDERSTANDS
[2019-08-24] MEDS ORDERED: ACETAMINOPHEN/CODEINE 300MG - 30MG TAB PO PRN (15:30)
--- NOTE | 2019-08-24 17:34 | Progress Note ---
DATE: 08/24/2019 EARTH SCIENCE TECHNICAL OFFICER: Dr. Mercado with Nephrology. CHIEF COMPLAINT: Missed dialysis and abdominal pain with diarrhea. SUBJECTIVE: The patient reports diarrhea has improved, abdominal pain also improved, but nausea. PHYSICAL EXAMINATION: VITAL SIGNS: Temperature 97.0, pulse is 73, respirations 20, blood pressure 140/58, and pulse ox is 95% on 2 L of oxygen. GENERAL: No acute distress. HEENT: Normocephalic and atraumatic. NECK: Supple and midline, LUNGS: Clear to auscultation. CARDIOVASCULAR: Regular rate and rhythm. GI: Soft and nontender. NEUROLOGIC: Alert, awake, and oriented x3. MUSCULOSKELETAL: Left hip pain and left foot amputation. SKIN: Dry and intact. PSYCH: Calm. LABORATORY DATA: WBC 5.39, hemoglobin 11.4, hematocrit 35.2, and platelet is 154. Sodium 136, potassium 3.9, BUN is 49, creatinine 7.9, blood sugar 154, and calcium 7.8. AST 11 and ALT 6. CK 147 and CK-MB 5.90. Troponin 0.048. Albumin 2.8 and total protein 7.6. IMPRESSION: 1. Diarrhea due to gastroenteritis. Now improved. 2. Hypoglycemia with a history of diabetes. Likely due to diarrhea and poor p.o. intake. Now improved. 3. Hyperkalemia due to missed dialysis. Improved post dialysis yesterday. Nephrology on the case. 4. Hypertension. Resume home medicine. 5. Diabetes. Sliding scale insulin as needed. 6. Chronic obstructive pulmonary disease without exacerbation. Nebs q.4. 7. History of chronic congestive heart failure. We will resume home medications, Lasix and beta blockers. 8. Hypothyroidism. Noncompliant with medications. We will resume Synthroid. 9. Anemia of chronic diseases. We will continue to monitor closely and transfuse if hemoglobin is less than 7. 10. History of bipolar. We will resume home medications. 11. History of hemorrhoids. Resume hemorrhoid ointment. 12. Noncompliance with dialysis and medications. Emphasized compliance. 13. Deep vein thrombosis prophylaxis. No chemical anticoagulation due to anemia. PLAN: Awaiting on CT abdomen and pelvis without contrast. Dictated by Chanda Abreu, JOSE MD BALJINDER Mills/RAFAELL /[id number]
--- NOTE | 2019-08-24 20:49 | NUR ---
RADIOLOGY HAS COME TO TAKE PATIENT FOR CT SCAN.
--- NOTE | 2019-08-24 21:12 | NUR ---
PATIENT HAS RETURNED FROM RADIOLOGY, NO SIGNS OF DISTRESS NOTED.
--- NOTE | 2019-08-24 21:15 | NUR ---
PATIENT IN STABLE CONDITION, NO SIGNS OF DISTRESS NOTED. IV FLUIDS ARE RUNNING AT ORDERED RATE AND PATIENT VOICES NO PAIN AT THIS TIME.PATIENT IS RESTING COMFORTABLY, BED IS IN LOW POSITION, SIDE RAILS ARE UP, BED ALARM IS ON, CALL LIGHT WITHIN REACH, WILL CONTINUE TO MONITOR.
[2019-08-25] VITALS (8 sets, daily range): BP systolic 114–173; BP diastolic 62–82
[2019-08-25] MEDS: HYDRALAZINE HCL 20 MG/ML VIAL IV PRN (01:04)
--- NOTE | 2019-08-25 02:14 | Diagnostic Imaging Report ---
EXAM: CT Abdomen and Pelvis WITHOUT contrast INDICATION: Diarrhea. History of diverticulitis. End-stage renal disease on hemodialysis. COMPARISON: 05/31/2020. TECHNIQUE: Abdomen and pelvis were scanned utilizing a multidetector helical scanner from the lung base to the pubic symphysis without administration of IV contrast. Absence of intravenous contrast decreases sensitivity for detection of focal lesions and vascular pathology. Coronal and sagittal reformations were obtained. Routine protocol was performed. IV CONTRAST: None. ORAL CONTRAST: Water RADIATION DOSE: Total DLP: 711.48 mGy*cm Estimated effective dose: (DLP x 0.015 x size factor) mSv COMPLICATIONS: None FINDINGS: LINES and TUBES: None. LOWER THORAX: Bilateral trace pleural effusion and bibasilar subsegmental atelectasis. Multivessel coronary artery calcifications. Calcifications of aortic and mitral valves. HEPATOBILIARY: No focal hepatic lesions. No biliary ductal dilation. GALLBLADDER: There are stones in the gallbladder. Mild gallbladder hydrops. SPLEEN: No splenomegaly. PANCREAS: No focal masses or ductal dilatation. ADRENALS: 1.5 cm left adrenal nodule. KIDNEYS/URETERS: No hydronephrosis. 3.0 cm cyst in the posterior interpolar region of the left kidney. 1.8 cm cyst exophytic of the posterior lower pole of the left kidney. No stones. GI TRACT: There is a sclerotic diverticulosis most markedly involving sigmoid colon. There is wall thickening of the distal descending and proximal sigmoid colon associated with surrounding fat stranding, consistent with acute sigmoid diverticulitis. Thickening No abnormal distention to suggest obstruction. PELVIC ORGANS/BLADDER: The uterus is absent. LYMPH NODES: No lymphadenopathy. VESSELS: There is severe atherosclerotic disease in the aorta and major arterial branches. PERITONEUM / RETROPERITONEUM: No free air or fluid. BONES: There are degenerative changes in the lumbar spine. SOFT TISSUES: Small fat-containing umbilical hernia. IMPRESSION: 1. Findings consistent with acute on chronic distal descending and proximal sigmoid colon diverticulitis. No abscess formation. The common follow-up after treatment to document resolution and exclude underlying neoplasm. 2. Cholelithiasis. Mild gallbladder hydrops. Signed by: Dr. Ramírez Warren M.D. on 08/25/2019 2:12 AM
[2019-08-25] MEDS: LEVOTHYROXINE SODIUM 75 MCG TAB PO SCH (06:25)
[2019-08-25] MEDS: FUROSEMIDE 40 MG TAB PO SCH ×2 (08:41→15:30)
[2019-08-25] MEDS: CALCIUM ACETATE 667 MG GELCAP PO SCH ×3 (08:41→16:17)
[2019-08-25] MEDS: DOCUSATE SODIUM 100 MG CAP PO SCH (08:41)
[2019-08-25] MEDS: CLOPIDOGREL BISULFATE 75 MG TAB PO SCH (08:41)
[2019-08-25] MEDS: CARVEDILOL 3.125 MG TAB PO SCH ×2 (08:41→15:49)
[2019-08-25] MEDS: NIFEDIPINE CR 30 MG TAB PO SCH (08:42)
[2019-08-25] MEDS: INSULIN REGULAR, HUMAN 100 UNIT/1 ML 3ML VIAL SQ SCH ×4 (08:43→20:29)
[2019-08-25] MEDS: HYDROCORTISONE 2.5% PR CRM 1 OZ TUBE TOP SCH ×2 (09:37→15:00)
[2019-08-25] MEDS ORDERED: ONDANSETRON HCL 4 MG ORAL DISINTEGRATING TAB PO PRN (11:00)
[2019-08-25] MEDS ORDERED: LIDOCAINE/PRILOCAINE 2.5-2.5% KIT TOP ONE (12:00)
--- NOTE | 2019-08-25 13:55 | NUR ---
WOUND CARE CONSULT 74 YO DIABETIC FEMALE HX ESRD , HYPOGLYCEMIA, LEFT TMA ADALI 12 ON MODERATE PUP STATUS AND INTERVENTIONS AND ALTERNATING PRESSURE SURFACE LABS: WBC- 5.39 , HGB- 11.4 , GLUCOSE - 154 SKIN ASSESSMENT COMPLETE PATIENT PRESENTS WITH SMALL SACRAL STAGE 2 ULCERATION 2CM X1CM X.1CM PATIENT HAS RIGHT FOOT 1ST 2ND 3RD DRY STABLE NECROTIC TOES SCHEDULED FOR RIGHT TMA LATER THIS WEEK RECOMMENDATIONS: NURSING TO CONTINUE TO MAINTAIN MODERATE PUP STATUS AND INTERVENTIONS AND ALTERNATING PRESSURE SURFACE NURSING TO CONTINUE TO ASSIST PATIENT UP FOR MEALS AND MUCH TOLERATED NURSING TO CLEAN SACRAL STG 2 ULCER DAILY WITH NS AND APPLY VENELEX OINTMENT AND COVER WITH ALLEVYN FOAM DRESSING Addendum: 08/25/19 at 1403 by Cm Pelaez RN Amended: Links added.
[2019-08-25] MEDS ORDERED: METRONIDAZOLE 750MG/NS 150ML 150 ML IV ONE (14:15)
[2019-08-25] MEDS ORDERED: SODIUM CHLORIDE 0.9% 1000ML 2,000 ML ONE (15:57)
--- NOTE | 2019-08-25 16:14 | NUR ---
Nutrition Screen Note RD Recommendation for Physician: - Recommend adding 1800 ADA, Renal to current diet Plan of Care: RD following, monitoring for tolerance and adequacy Nutrition reason for involvement: DX on admit: ESRD Primary Diagnose(s):ESRD on HD- missed tx, hypoglycemia, abdominal pain, diarrhea PMH: DM, ESRD on HD, CHF, COPD, bipolar Ht: 66 in Wt: 203 lb BMI: 32.8 kg/m2 IBW: [address] Assessment: (08/25) 74 YOF admitted for missed HD tx, abdominal pain, and diarrhea. Pt seen today per admit dx screen. Pt reports good appetite and po intake, noted 95% intake of lunch tray. Pt denies any wt loss reports UBW of 200#. Pt denies any GI distress currently, LBM 08/24. Pt declined need for diet education at time of visit. Chart reviewed. Labs and meds reviewed. Pt discussed during am rounds Will continue to monitor. Current Diet: Cardiac Malnutrition Evaluation (08/25/19) The patient does not meet criteria for a specified degree of malnutrition at this time. Will re-evaluate at follow-up as appropriate. Diet Education Needs Assessment: Diet education not indicated at this time, pt declined education. Diet tolerance: tolerating po Nutrition Care Level: low Signed: Renea Duggan RD, LD, [facility]
[2019-08-25] MEDS ORDERED: CIPROFLOXACIN 500 MG TAB PO SCH (17:00)
--- NOTE | 2019-08-25 17:14 | Progress Note ---
DATE: 08/25/2019 CONSULTANTS: 1. Dr. Mercado with Nephrology. 2. Dr. Menjivar with GI. CHIEF COMPLAINT: Missed dialysis with abdominal pain and diarrhea. SUBJECTIVE: The patient reports abdominal pain is improving some, but still with diarrhea. She reports nausea has improved and able to tolerate diet. HD plan for today. PHYSICAL EXAMINATION: VITAL SIGNS: Temperature 95.5, pulse is 74, respirations 16, blood pressure 167/82, and pulse ox is 100% on 2 L of nasal cannula. GENERAL: No acute distress. HEENT: Normocephalic and atraumatic. NECK: Supple and midline. LUNGS: Clear to auscultation. CARDIOVASCULAR: Regular rate and rhythm. GI: Soft and nontender. NEUROLOGIC: Alert, awake, and oriented x3. MUSCULOSKELETAL: Left hip pain and left with amputation. SKIN: Dry and intact. PSYCH: Calm. IMAGING: CT abdomen and pelvis shows [id number] distal descending and proximal sigmoid colon diverticulitis. No abscess formation and cholelithiasis, mild gallbladder hydrops. IMPRESSION: 1. Fqzkl-[id number] diverticulitis. CT abdomen and pelvis shows it is consistent with diverticulitis. We will start on Flagyl and Cipro. We will consult GI for recurrent diverticulitis. 2. Hypoglycemia with a history of diabetes. Likely due to diarrhea and poor p.o. intake. Now resolved. 3. Hyperkalemia due to missed dialysis. Improved post dialysis. Nephrology on the case. 4. End-stage renal disease. HD Sunday, , and Sunday. Nephrology on the case. Noncompliant with treatments. 5. Hypertension. Resume home medications. 6. Diabetes type 2. Sliding scale insulin as needed. 7. Chronic obstructive pulmonary disease without exacerbation. Nebs q.4. 8. History of chronic congestive heart failure without exacerbation. We will resume Lasix and beta blockers. 9. Hypothyroidism. Continue Synthroid. 10. Anemia of chronic diseases. We will continue to monitor H and H and transfuse if less than 7. 11. History of bipolar. We will resume home medications. 12. Rectal pain due to hemorrhoids. Resume hemorrhoid ointments. 13. Deep vein thrombosis prophylaxis. No chemical anticoagulation due to anemia. PLAN: To start antibiotics for acute diverticulitis, GI evaluation pending. Dictated by Chanda Abreu, ANP Yiching MD BALJINDER Bello/JONATHAN /[id number]
--- NOTE | 2019-08-25 19:25 | NUR ---
Report given to oncoming nurse of patient's status. No s/s of acute distress noted. HD nurse at bedside. Side rails upx2, call light within reach.
[2019-08-25] MEDS: DEXTROSE 10% 1,000 ML IV SCH (21:36)
[2019-08-25] MEDS: METRONIDAZOLE 750MG/NS 150ML 150 ML IV SCH (21:40)
[2019-08-26] VITALS: BP_SYST 141; BP_SYST 166; BP_DIAS 80; BP_DIAS 94
[2019-08-26] MEDS: HYDRALAZINE HCL 20 MG/ML VIAL IV PRN (00:35)
[2019-08-26 04:00] VITALS: BP 141/80
[2019-08-26] MEDS: METRONIDAZOLE 750MG/NS 150ML 150 ML IV SCH ×2 (05:48→14:00)
[2019-08-26] MEDS ORDERED: LEVOTHYROXINE SODIUM 75 MCG TAB PO SCH (06:00)
[2019-08-26] MEDS ORDERED: LEVOTHYROXINE SODIUM 100 MCG TAB PO SCH (06:00)
--- NOTE | 2019-08-26 07:00 | NUR ---
BEDSIDE SHIFT REPORT RECEIVED FROM THE ICHTHYOLOGIST RN. EDUCATED PT ABOUT FALL PRECAUTIONS. CALL LIGHT WITH IN EASY REACH. INSTRUCTED PT TO USE CALL LIGHT FOR ALL THE NEEDS. PT VERBALIZED UNDERSTANDING. BED IS LOW AND LOCKED. SIDE RAILS X2. BED ALARM IS ON. PT DENIES NEEDS AT THIS TIME.
[2019-08-26] MEDS: INSULIN REGULAR, HUMAN 100 UNIT/1 ML 3ML VIAL SQ SCH ×2 (07:30→12:30)
--- NOTE | 2019-08-26 08:00 | NUR ---
CALL RECEIVED FROM TRANSMISSION LINE ENGINEER. PT WILL HAVE DIALYSIS TODAY PER THE [facility]. PAGED DR. BERMAN REGARDING THE SAME. WAITING FOR THE RESPONSE FROM THE
[2019-08-26 08:19] VITALS: BP 127/73
[2019-08-26] MEDS: CLOPIDOGREL BISULFATE 75 MG TAB PO SCH (08:23)
[2019-08-26] MEDS: CALCIUM ACETATE 667 MG GELCAP PO SCH ×2 (08:23→12:12)
[2019-08-26] MEDS: DOCUSATE SODIUM 100 MG CAP PO SCH (08:23)
[2019-08-26 08:33] VITALS: BP 127/73
[2019-08-26] MEDS ORDERED: BALSAM PERU/CASTOR OIL 60 GM OINT...G. TP SCH (09:00)
[2019-08-26] MEDS: HYDROCORTISONE 2.5% PR CRM 1 OZ TUBE TOP SCH (09:00)
--- NOTE | 2019-08-26 09:00 | NUR ---
PAGED DR. BERMAN REGARDING PT DIALYSIS SCHEDULE.
[2019-08-26] MEDS: CARVEDILOL 3.125 MG TAB PO SCH (10:00)
[2019-08-26] MEDS: FUROSEMIDE 40 MG TAB PO SCH (10:00)
[2019-08-26] MEDS ORDERED: LEVAQUIN500 MG PO (10:40)
[2019-08-26] MEDS ORDERED: FLAGYL500 MG PO (10:40)
--- NOTE | 2019-08-26 11:00 | NUR ---
PAGED DR. CULLEN CASTILLO PT D/C. NEEDS TO SEE THE PT BEFORE D/C PER THE
[2019-08-26 11:19] VITALS: BP 175/82
[2019-08-26] MEDS: NIFEDIPINE CR 30 MG TAB PO SCH (11:20)
--- NOTE | 2019-08-26 13:25 | NUR ---
PT SON AT BEDSIDE. PT WANTS TO GO HOME NOW. PAGED DR. BERMAN REGARDING PT D/C. WAITING FOR THE RESPONSE FROM THE
--- NOTE | 2019-08-26 13:30 | NUR ---
PT CANNOT WAIT ANYMORE AND WANTS TO GO HOME NOW. PAGED DR. BERMAN.
--- NOTE | 2019-08-26 13:55 | NUR ---
JANELLE TO D/C PT PER DR. BERMAN.
--- NOTE | 2019-08-26 14:00 | NUR ---
PT DISCHARGED HOME SAFELY WITH FAMILY MEMBER. TELEMETRY AND IV REMOVED, TIP INTACT. DRESSING APPLIED. RX GIVEN. DISCHARGE INSTRUCTIONS GIVEN AND PATIENT VERBALIZED UNDERSTANDING. PT ESCORTED VIA WHEEL CHAIR TO THE PRIVATE AUTO AT THE FRONT ENTRANCE BY THE [facility]. PT DENIED FURTHER NEEDS.
--- NOTE | 2019-08-27 04:28 | Discharge Summary ---
PRIMARY CARE PHYSICIAN: Dr. Patel at [facility]. FINAL DIAGNOSES: 1. Acute on chronic diverticulitis. 2. Hypoglycemia with history of diabetes type 2. 3. Hyperkalemia due to missed dialysis. 4. End-stage renal disease. 5. Hypertension. 6. Diabetes type 2. 7. Chronic obstructive pulmonary disease. 8. Congestive heart failure. 9. Hypothyroidism. 10. Anemia of chronic disease. 11. Bipolar. CONSULTANTS: 1. Dr. Mercado with Nephrology. 2. Dr. Menjivar with GI. PROCEDURES: None. HISTORY: Per HPI. HOSPITAL COURSE: This is a 74-year-old female with past medical history of ESRD, hypertension, COPD, CHF, hypothyroidism, diabetes, presented with recurrent diarrhea, hypoglycemia and hyperkalemia due to missed dialysis. She reports she missed dialysis due to diarrhea. Upon arrival, she was noted to be hypoglycemic, Nephrology was consulted and dialyzed at bedside. CT abdomen and pelvis showed acute on chronic diverticulitis. GI was consulted and she was started on Cipro and Flagyl for diverticulitis. Diarrhea is improving, eating better, vital signs stable, emphasized the need for treatment compliance and medication compliance. We will discharge home today to follow up with her dialysis tomorrow, and follow up with PCP and GI in 1 to 2 weeks. PHYSICAL EXAMINATION: VITAL SIGNS: Temperature 96.6, pulse is 77, respirations 20, blood pressure 175/82, pulse ox is 96% on nasal cannula. GENERAL: No acute distress. HEENT: Normocephalic, atraumatic. NECK: Supple and midline. LUNGS: Clear to auscultation. CARDIOVASCULAR: Regular rate and rhythm. GI: Soft and nontender. NEUROLOGIC: Alert, awake, and oriented x3. MUSCULOSKELETAL: Moves all extremities. No edema noted. SKIN: Dry and intact. PSYCH: Calm. CONDITION AT DISCHARGE: Stable and improved. DISCHARGE MEDICATIONS: See medication reconciliation list. FOLLOWUP: Follow up with PCP, Nephrology, and GI in 1 to 2 weeks. TIME SPENT: Total time of discharge is 32 minutes. Dictated by JOSE Hernandez Feleciaching Anastacio Sutton MD MY/MODL /[id number] cc: [facility]. Seen and examined on 08/26/2019. Agree with the findings and plan as documented by JOSE Abreu. HAYLEY
== END 2019-08-26 14:16 | disposition home or self-care (01) ==
LOC: ER 21:58 → ERHOLD 08-23 00:27 → MED/SURG2 08-23 13:44
PROVIDERS: ADMIT Internal Medicine; ATTEND Internal Medicine
DX: K57.32 Diverticulitis of large intestine without perforation or abscess without bleeding (principal); E11.649 Type 2 diabetes mellitus with hypoglycemia without coma; Z79.4 Long term (current) use of insulin; J44.9 Chronic obstructive pulmonary disease, unspecified; E87.5 Hyperkalemia; D63.8 Anemia in other chronic diseases classified elsewhere; E03.9 Hypothyroidism, unspecified; F31.9 Bipolar disorder, unspecified; N18.6 End stage renal disease; Z99.2 Dependence on renal dialysis; E11.22 Type 2 diabetes mellitus with diabetic chronic kidney disease; Z91.15 Patient's noncompliance with renal dialysis; K64.9 Unspecified hemorrhoids; I13.2 Hypertensive heart and chronic kidney disease with heart failure and with stage 5 chronic kidney disease, or end stage renal disease; I50.9 Heart failure, unspecified; D63.1 Anemia in chronic kidney disease; E11.21 Type 2 diabetes mellitus with diabetic nephropathy; E87.2 Acidosis
CPT/HCPCS: 36415 ×5; 71045; 74176; 80053 ×3; 82550 ×2; 82553 ×2; 82948 ×4; 83880; 84484 ×2; 85025 ×3; 86140; 86704; 86705; 87340; 87350; 93005; 96360; 96372; 99284; G0378 ×4; J0360 ×3; J7030 ×2; J7799 ×2; 90962

== ENCOUNTER 2019-09-04 11:04 | Emergency (ER) | payer MEDICARE ==
[~2019-09-04] VITALS: Ht 167.6 cm; Wt 92.1 kg
--- NOTE | 2019-09-04 12:43 | Diagnostic Imaging Report ---
Exam: CT pelvis Clinical history: Status post fall Technique: Helical images of the pelvis were obtained without contrast DOSE REDUCTION: The exams was performed according to the departmental dose-optimization program which includes automated exposure control, adjustment of the mA and/or kV according to patient size and/or use of iterative reconstruction technique. Findings: The study is suboptimal secondary to being hardening artifact. There is no gross evidence of acute fracture or malalignment of the visualized osseous structures. Degenerative joint disease is noted in bilateral hip joints with loss in joint space and subchondral cyst formation. Degenerative disc disease is also noted at L4-5 level with loss in disc height and vacuum phenomenon. A small fat-containing umbilical hernia is noted. Atherosclerotic calcification of the pelvic vessels are visualized. The visualized bowel loops appear within normal limits in size in caliber. Small amount of retained feces is seen in the sigmoid colon and rectum. Sigmoid diverticulosis is noted without evidence of acute diverticulitis. Impression: 1. No CT evidence of acute osseous injury. Degenerative joint disease and degenerative disc disease is noted. 2. Sigmoid diverticulosis without CT evidence of acute diverticulitis. Signed by: Dr. Chris Reynoso MD on 09/04/2019 12:41 PM
--- NOTE | 2019-09-04 12:50 | NUR ---
family contact: Nehal Horn
[2019-09-04 12:51] LABS: BASOPHILS % 0.3 % (0.0-1.0); EOSINOPHILS # (AUTO) 0.1 (0.0-0.4); EOSINOPHILS % 1.2 % (0.0-6.0); HEMATOCRIT 31.6 % (34.2-44.1); HEMOGLOBIN 9.4 g/dL (12.0-16.0); LYMPHOCYTES % 12.4 % (18.0-39.1); MEAN CORPUSCULAR HEMOGLOBIN 28.7 pg (28-32); MEAN CORPUSCULAR HGB CONC 29.7 g/dL (31-35); MEAN CORPUSCULAR VOLUME 96.3 fL (81-99); MONOCYTES # (AUTO) 0.8 (0.2-0.8); MONOCYTES % 10.7 % (4.4-11.3); NEUTROPHILS # (AUTO) 5.9 (2.1-6.9); NEUTROPHILS % 75.3 % (38.7-80.0); PLATELET COUNT 181 x10e3/uL (140-360); RED BLOOD COUNT 3.28 x10e6/uL (3.6-5.1); RED CELL DISTRIBUTION WIDTH 13.9 % (11.7-14.4)
--- NOTE | 2019-09-04 12:57 | Diagnostic Imaging Report ---
CT BRAIN WO HISTORY: Fall COMPARISON: None. Technique: Noncontrast axial scans were obtained from skull base to the vertex. Coronal and sagittal reconstructions obtained from the axial data. One or more of the following dose reduction techniques were used: Automated exposure control, adjustment of the mA and/or kV according to patient size, and/or utilization of iterative reconstruction technique. DISCUSSION: Scalp/Skull: Left frontal and left zygomatic scalp hematomas are present. No calvarial fracture is seen. Brain sulci: Mildly prominent. Ventricles: Compensatory dilatation. Extra-axial spaces: No masses or fluid collections. Carotid and vertebral artery calcifications are present. Parenchyma: Mild bilateral deep white matter hypodensity is likely chronic microvascular ischemic change. Otherwise, no masses, hemorrhage, or large vascular territory acute infarct. Dural sinuses: No abnormal densities. Sellar/Suprasellar region: Intact. Skull base: Intact. Incidental findings: None. IMPRESSION: 1. No acute intracranial abnormalities. 2. Mild supratentorial chronic microvascular ischemic change. Mild generalized cerebral volume loss. Signed by: Dr. Regulo Gomez M.D. on 09/04/2019 12:54 PM
[2019-09-04] MEDS ORDERED: NALOXONE HCL 2MG/2 ML SYRINGE IV ONE (13:00)
--- NOTE | 2019-09-04 13:00 | Diagnostic Imaging Report ---
CT CERVICAL SPINE WO HISTORY: Fall COMPARISON: Concurrent head CT TECHNIQUE: CT of the cervical spine without contrast. Sagittal and coronal reformations were created. One or more of the following dose reduction techniques were used: Automated exposure control, adjustment of the mA and/or kV according to patient size, and/or utilization of iterative reconstruction technique. FINDINGS: Mild bone demineralization limits evaluation. Cervical lordosis is preserved. There is no scoliosis or subluxation. No definite acute fracture or compression deformity is seen. The craniocervical junction is intact. No gross spinal canal masses are seen. The paravertebral and paraspinal soft tissues are unremarkable. Mild multilevel spondylotic changes are associated with multilevel bilateral facet arthrosis. Thyroidectomy changes are present. Prominent bilateral carotid bulb calcified plaque is present. IMPRESSION: No acute osseous abnormalities. Mild multilevel spondylosis with bilateral facet arthrosis. Signed by: Dr. Rgeulo Gomez M.D. on 09/04/2019 12:57 PM
--- NOTE | 2019-09-04 13:04 | Diagnostic Imaging Report ---
CT MAXIO FAC/PARANAS WO HISTORY: Fall COMPARISON: Concurrent head and cervical spine CT TECHNIQUE: Axial CT images through the face were obtained without contrast. Coronal/sagittal reformations were created. One or more of the following dose reduction techniques were used: Automated exposure control, adjustment of the mA and/or kV according to patient size, and/or utilization of iterative reconstruction technique. DISCUSSION: Small superficial/subcutaneous left zygomatic hematoma is present. No acute fracture is seen. No destructive osseous lesions are seen. The orbits are intact. Intraorbital contents are grossly unremarkable. Mild left sphenoid sinus mucosal thickening is present. IMPRESSION: 1. No acute osseous abnormalities in the face. 2. Small superficial left zygomatic hematoma. Signed by: Dr. Regulo Gomez M.D. on 09/04/2019 1:01 PM
--- NOTE | 2019-09-04 13:11 | Diagnostic Imaging Report ---
CT LUMBAR SPINE WO HISTORY: Fall COMPARISON: CT of the abdomen/pelvis 08/24/2019 TECHNIQUE: Axial CT images of the lumbar spine were obtained without contrast. Coronal and sagittal reconstructions obtained from the axial data. One or more of the following dose reduction techniques were used: Automated exposure control, adjustment of the mA and/or kV according to patient size, and/or utilization of iterative reconstruction technique. DISCUSSION: Bone demineralization limits evaluation. There are 5 nonrib-bearing lumbar vertebral bodies. Lumbar lordosis is preserved. There is no significant scoliosis or subluxation. No definite acute fracture or compression deformity is seen. is seen. No gross spinal canal mass is seen. The paravertebral and paraspinal soft tissues are unremarkable. Mild to moderate multilevel spondylotic changes are present. Mild to moderate bilateral sacroiliac degenerative changes are present as well. L1-L2: No gross canal or foraminal stenosis. L2-L3: Moderate left foraminal stenosis due to disc bulge and facet arthrosis. No gross canal or right foraminal stenosis. L3-L4: At least mild to moderate canal stenosis due to disc bulge and ligamentum flavum thickening. Mild to moderate bilateral foraminal stenoses due to disc bulge and facet arthrosis. L4-L5: Mild to moderate bilateral foraminal stenoses due to disc bulge and facet arthrosis. No gross canal stenosis. Facet arthrosis is advanced. L5-S1: Mild to moderate bilateral foraminal stenoses due to disc bulge and facet arthrosis. No gross canal stenosis. Facet arthrosis is advanced. Diffuse aortoiliac calcified atherosclerosis is present. Partially imaged round hypodense lesion in the right kidney may be a cyst. IMPRESSION: 1. No acute osseous abnormalities. 2. Mild to moderate multilevel spondylosis. 3. At least mild to moderate degenerative canal stenosis at L3-L4. 4. Mild to moderate multilevel bilateral degenerative foraminal stenoses as described above. Signed by: Dr. Regulo Gomez M.D. on 09/04/2019 1:08 PM
[2019-09-04 13:14] LABS: INR 0.98; PROTHROMBIN TIME 13.6 seconds (11.9-14.5)
[2019-09-04 13:15] LABS: PARTIAL THROMBOPLASTIN TIME 33.7 seconds (23.8-35.5)
--- NOTE | 2019-09-04 13:15 | NUR ---
Attempted to straight cath the patient to obtain a urine sample. Explained the reason for the procedure as a diagnostic measure. The patient refused and expressed wishes to go home.
[2019-09-04 13:24] LABS: ALBUMIN 2.9 g/dL (3.5-5.0); ALBUMIN/GLOBULIN RATIO 0.6 (0.8-2.0); ANION GAP 16.2 mmol/L (8-16); CALCIUM 10.6 mg/dL (8.4-10.2); CREATININE, SERUM 6.86 mg/dL (0.57-1.11); POTASSIUM 4.2 mmol/L (3.5-5.1)
[2019-09-04 13:41] LABS: CREATINE KINASE MB 16.8 ng/mL (0-5.0)
[2019-09-04 14:01] LABS: ABG PH 7.31 (7.31-7.41)
[2019-09-04 14:02] LABS: ABG HCO3 31 mmol/L (23-28); ABG PCO2 63 mmHg (41-51); ABG PO2 44 mmHg (80-105)
== END 2019-09-04 16:45 | disposition home or self-care (01) ==
LOC: ER 11:04
DX: S00.83XA Contusion of other part of head, initial encounter (principal); W06.XXXA Fall from bed, initial encounter; Y93.84 Activity, sleeping; Y92.003 Bedroom of unspecified non-institutional (private) residence as the place of occurrence of the external cause; I12.0 Hypertensive chronic kidney disease with stage 5 chronic kidney disease or end stage renal disease; E11.22 Type 2 diabetes mellitus with diabetic chronic kidney disease; N18.6 End stage renal disease; Z99.2 Dependence on renal dialysis; J44.9 Chronic obstructive pulmonary disease, unspecified
CPT/HCPCS: 36415; 36600; 70450; 70486; 72125; 72131; 72192; 80053; 82550; 82553; 82805; 82948; 84484; 85025; 85610; 85730; 99284; J2310

== ENCOUNTER 2019-10-14 11:57 | Emergency (ER) | payer MEDICARE ==
[~2019-10-14] VITALS: Ht 167.6 cm; Wt 92.1 kg
[2019-10-14] MEDS ORDERED: MINERAL OIL 132 ML BTL PR ONE (12:15)
[2019-10-14] MEDS ORDERED: LIDOCAINE HCL 2% 30 ML TUBE TOP ONE (12:15)
[2019-10-14 12:37] LABS: BASOPHILS % 0.1 % (0.0-1.0); EOSINOPHILS # (AUTO) 0.2 (0.0-0.4); EOSINOPHILS % 2.9 % (0.0-6.0); HEMATOCRIT 29.2 % (34.2-44.1); HEMOGLOBIN 8.8 g/dL (12.0-16.0); LYMPHOCYTES # (AUTO) 1.3 (1.0-3.2); LYMPHOCYTES % 15.6 % (18.0-39.1); MEAN CORPUSCULAR HEMOGLOBIN 28.3 pg (28-32); MEAN CORPUSCULAR HGB CONC 30.1 g/dL (31-35); MEAN CORPUSCULAR VOLUME 93.9 fL (81-99); MONOCYTES # (AUTO) 0.7 (0.2-0.8); MONOCYTES % 8.9 % (4.4-11.3); NEUTROPHILS # (AUTO) 5.9 (2.1-6.9); NEUTROPHILS % 72.1 % (38.7-80.0); PLATELET COUNT 236 x10e3/uL (140-360); RED BLOOD COUNT 3.11 x10e6/uL (3.6-5.1); RED CELL DISTRIBUTION WIDTH 15.5 % (11.7-14.4)
[2019-10-14 12:44] LABS: INR 1.03; PROTHROMBIN TIME 14.1 seconds (11.9-14.5)
[2019-10-14 12:45] LABS: PARTIAL THROMBOPLASTIN TIME 39.5 seconds (23.8-35.5)
[2019-10-14 12:54] LABS: ALBUMIN/GLOBULIN RATIO 0.6 (0.8-2.0); CALCIUM 8.4 mg/dL (8.4-10.2); CREATININE, SERUM 9.48 mg/dL (0.57-1.11)
--- NOTE | 2019-10-14 14:23 | NUR ---
[facility] CALLED FOR TRANSPORT
== END 2019-10-14 16:30 | disposition home or self-care (01) ==
LOC: ER 11:57
DX: K59.00 Constipation, unspecified (principal); I12.0 Hypertensive chronic kidney disease with stage 5 chronic kidney disease or end stage renal disease; E11.22 Type 2 diabetes mellitus with diabetic chronic kidney disease; N18.6 End stage renal disease; Z99.2 Dependence on renal dialysis; F31.9 Bipolar disorder, unspecified
CPT/HCPCS: 36415; 80053; 82550; 82553; 84484; 85025; 85610; 85730; 93005; 99284

== ENCOUNTER 2019-11-14 19:53 | Emergency (ER) | payer MEDICARE ==
[~2019-11-14] VITALS: Ht 167.6 cm; Wt 92.1 kg
[2019-11-14] MEDS ORDERED: ASPIRIN 81 MG CHEW TAB PO ONE (20:45)
[2019-11-14 21:00] LABS: BASOPHILS % 0.2 % (0.0-1.0); EOSINOPHILS # (AUTO) 0.2 (0.0-0.4); EOSINOPHILS % 3.8 % (0.0-6.0); HEMATOCRIT 37.8 % (34.2-44.1); LYMPHOCYTES # (AUTO) 1.1 (1.0-3.2); LYMPHOCYTES % 27.2 % (18.0-39.1); MEAN CORPUSCULAR HEMOGLOBIN 27.7 pg (28-32); MEAN CORPUSCULAR HGB CONC 29.1 g/dL (31-35); MEAN CORPUSCULAR VOLUME 95.2 fL (81-99); MONOCYTES # (AUTO) 0.3 (0.2-0.8); MONOCYTES % 7.9 % (4.4-11.3); NEUTROPHILS # (AUTO) 2.5 (2.1-6.9); NEUTROPHILS % 60.7 % (38.7-80.0); PLATELET COUNT 145 x10e3/uL (140-360); RED BLOOD COUNT 3.97 x10e6/uL (3.6-5.1); RED CELL DISTRIBUTION WIDTH 15.5 % (11.7-14.4)
[2019-11-14 21:17] LABS: ALBUMIN 2.8 g/dL (3.5-5.0); ALBUMIN/GLOBULIN RATIO 0.6 (0.8-2.0); ALKALINE PHOSPHATASE 83 IU/L (40-150); ANION GAP 14.9 mmol/L (8-16); BLOOD UREA NITROGEN 29 mg/dL (7-26); BUN/CREATININE RATIO 5 (6-25); CALCIUM 8.3 mg/dL (8.4-10.2); CARBON DIOXIDE 29 mmol/L (22-29); CHLORIDE 100 mmol/L (98-107); CREATINE KINASE 38 IU/L (29-168); CREATININE, SERUM 5.43 mg/dL (0.57-1.11); EST GLOMERULAR FILTRATION RATE 9 ML/MIN (60-); GLUCOSE 87 mg/dL (74-118); POTASSIUM 3.9 mmol/L (3.5-5.1); SODIUM 140 mmol/L (136-145)
[2019-11-14 21:23] LABS: ALANINE AMINOTRANSFERASE < 6 IU/L (0-55)
--- NOTE | 2019-11-14 22:09 | Diagnostic Imaging Report ---
EXAMINATION: CHEST SINGLE (PORTABLE) INDICATION: Elevated blood pressure COMPARISON: None FINDINGS: AP view TUBES and LINES: None. LUNGS: Low lung volumes. Prominent pulmonary markings with questionable perihilar airspace disease. PLEURA: Questionable small left pleural effusion. HEART AND MEDIASTINUM: The cardiac silhouette is enlarged. The pulmonary vasculature is prominent. BONES AND SOFT TISSUES: No acute osseous lesion. Soft tissues are unremarkable. UPPER ABDOMEN: No free air under the diaphragm. IMPRESSION: Cardiomegaly with pulmonary venous congestion and possible early pulmonary edema. Questionable small left pleural effusion. Signed by: Axel Anthony MD on 11/14/2019 10:06 PM
[2019-11-15 00:19] VITALS: BP 168/97
== END 2019-11-15 00:26 | disposition home or self-care (01) ==
LOC: ER 19:53
DX: R53.1 Weakness (principal); L22 Diaper dermatitis; B37.9 Candidiasis, unspecified; I12.0 Hypertensive chronic kidney disease with stage 5 chronic kidney disease or end stage renal disease; E11.22 Type 2 diabetes mellitus with diabetic chronic kidney disease; N18.6 End stage renal disease; Z99.2 Dependence on renal dialysis
CPT/HCPCS: 36415; 71045; 80053; 82550; 82553; 83880; 84484; 85025; 99283

== ENCOUNTER 2020-04-05 14:28 | Inpatient (IN) | payer MEDICARE ==
[~2020-04-05] VITALS: Ht 167.6 cm; Wt 92.1 kg
--- NOTE | 2020-04-05 15:58 | Diagnostic Imaging Report ---
EXAMINATION: CHEST SINGLE (PORTABLE) INDICATION: Shortness of breath COMPARISON: Chest radiograph 11/14/2019 FINDINGS: LINES/TUBES:EKG leads overlie the chest. LUNGS:The lungs are moderately inflated. There is perihilar fullness and indistinctness of the pulmonary vasculature. No focal consolidation. PLEURA:No pleural effusion or pneumothorax. MEDIASTINUM:Cardiomegaly, increased from the prior radiograph of 11/14/2019. Atherosclerotic calcifications of the thoracic aorta. BONES/SOFT TISSUES:No acute osseous injury. Surgical clips in the neck. ABDOMEN:No free air under the diaphragm. IMPRESSION: Cardiomegaly and pulmonary interstitial edema. No focal pneumonia. Signed by: Gustavo Love MD on 04/05/2020 3:54 PM
[2020-04-05 16:04] LABS: BASOPHILS % 0.3 % (0.0-1.0); EOSINOPHILS # (AUTO) 0.1 (0.0-0.4); EOSINOPHILS % 1.4 % (0.0-6.0); HEMATOCRIT 34.7 % (34.2-44.1); HEMOGLOBIN 10.5 g/dL (12.0-16.0); LYMPHOCYTES # (AUTO) 1.3 (1.0-3.2); LYMPHOCYTES % 17.6 % (18.0-39.1); MEAN CORPUSCULAR HEMOGLOBIN 29.4 pg (28-32); MEAN CORPUSCULAR HGB CONC 30.3 g/dL (31-35); MEAN CORPUSCULAR VOLUME 97.2 fL (81-99); MONOCYTES # (AUTO) 0.7 (0.2-0.8); MONOCYTES % 8.9 % (4.4-11.3); NEUTROPHILS # (AUTO) 5.3 (2.1-6.9); NEUTROPHILS % 71.5 % (38.7-80.0); PLATELET COUNT 196 x10e3/uL (140-360); RED BLOOD COUNT 3.57 x10e6/uL (3.6-5.1); RED CELL DISTRIBUTION WIDTH 17.1 % (11.7-14.4)
[2020-04-05 16:22] LABS: INR 1.14; PROTHROMBIN TIME 15.2 seconds (11.9-14.5)
[2020-04-05 16:23] LABS: PARTIAL THROMBOPLASTIN TIME 40.4 seconds (23.8-35.5)
[2020-04-05 16:32] LABS: ALBUMIN 3.6 g/dL (3.5-5.0); ALBUMIN/GLOBULIN RATIO 0.8 (0.8-2.0); ANION GAP 25.8 mmol/L (8-16); CALCIUM 7.4 mg/dL (8.4-10.2); CREATININE, SERUM 11.85 mg/dL (0.57-1.11); MAGNESIUM 2.4 MG/DL (1.3-2.1)
[2020-04-05] MEDS ORDERED: SODIUM BICARBONATE 8.4% INJ 50 ML SYR IV STA (16:33)
[2020-04-05] MEDS ORDERED: DEXTROSE 50% SYRINGE 50 ML IV STA (16:33)
[2020-04-05 16:35] LABS: POTASSIUM 7.8 mmol/L (3.5-5.1)
[2020-04-05 16:39] LABS: CREATINE KINASE MB 2.9 ng/mL (0-5.0)
[2020-04-05] MEDS ORDERED: INSULIN REGULAR, HUMAN 100 UNIT/1 ML 3ML VIAL IV ONE (16:45)
[2020-04-05] MEDS ORDERED: ONDANSETRON HCL INJ 2MG/ML 2ML 2 MG/ML VIAL IV PRN (17:00)
[2020-04-05] MEDS ORDERED: CALCIUM GLUCONATE 10% INJ 4.65 MEQ in SODIUM CHLORIDE 0.9% 50ML 50 ML IV ONE (17:00)
[2020-04-05] MEDS ORDERED: FAMOTIDINE 20 MG/2 ML VIAL IV SCH (17:30)
--- NOTE | 2020-04-05 17:34 | Emergency Department Note ---
History of Present Illnes History of Present Illness Chief Complaint: COVID PUI History of Present Illness This is a 75 year old female 75 y/o female presents to ED via EMS with c/o of SOB. Pt reports she missed dialysis all last week (last HD was 9 days ago!). Pt was recently discharge from the hospital from L femur fracture. Pt currently on 3L/NC, sats 100%. 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 Any updates have been documented here. Past Medical History Recent Fever: No Clinical Suspicion of Infectio: No New/Unexplained Change in Ment: No Past Medical History: Hypertension, Diabetes, COPD, CHF, Asthma, ESRD, Hemodyalisis, Other Mental Illness, Chronic Kidney Disease Other Medical History: BIPOLAR SHINGLES BRONCHITIS DIALYSIS T/TH/SAT DIVERTICULITIS Past Surgical History: Hysterectomy, T&A Other Surgery: LEFT AVF THYROIDECTOMY LEFT FOOT AMPUTATION Social History Smoking Cessation: Former smoker Counseling Performed: Yes Alcohol Use: None Any Illegal Drug Use: No TB Exposure/Symptoms: No Physically hurt or threatened: No Family History Family history of heart diseas: No Other Last Tetanus: UTD Any Pre-Existing Lines (PICC,: No Review of Systems Review of Systems Constitutional: Reports no symptoms EENTM: Reports no symptoms Cardiovascular: Reports no symptoms Respiratory: Reports as per HPI Gastrointestinal: Reports as per HPI Genitourinary: Reports no symptoms Musculoskeletal: Reports no symptoms Integumentary: Reports no symptoms Neurological: Reports no symptoms Psychological: Reports no symptoms Endocrine: Reports no symptoms Hematological/Lymphatic: Reports no symptoms Physical Exam Related Data Allergies: Coded Allergies: atorvastatin (Verified Allergy, Unknown, Hives, 12/23/18) pneumococcal vaccine (Verified Allergy, Unknown, 12/23/18) Triage Vital Signs Vital Signs Date Time Temp Pulse Resp B/P (MAP) Pulse Ox O2 Delivery O2 Flow Rate FiO2 04/05/20 14:42 97.9 51 20 170/69 98 Nasal Cannula 3.0 Vital signs reviewed: Yes Physical Exam CONSTITUTIONAL Constitutional: Present well-developed, Present well-nourished HENT HENT: Present normocephalic, Present atraumatic, Present oropharynx clear/moist, Present nose normal HENT L/R: Present left ext ear normal, Present right ext ear normal EYES Eyes: Reports PERRL, Reports conjunctivae normal NECK Neck: Present ROM normal PULMONARY Pulmonary: Present effort normal, Present rales (2/3 up bilateral) CARDIOVASCULAR Cardiovascular: Present regular rhythm, Present bradycardia, Present murmur (2/6 sys), Present gallop (+S3) GASTROINTESTINAL Abdominal: Present soft, Present nontender, Present bowel sounds normal GENITOURINARY Genitourinary: Present exam deferred SKIN Skin: Present warm, Present dry MUSCULOSKELETAL Musculoskeletal: Present ROM normal NEUROLOGICAL Neurological: Present alert, Present oriented x 3, Present no gross motor or sensory deficits PSYCHOLOGICAL Psychological: Present mood/affect normal, Present judgement normal Results Laboratory Result Diagram: 04/05/20 1600 04/05/20 1600 Laboratory Laboratory Tests Test 04/05/20 16:04 04/05/20 16:00 White Blood Count 7.40 x10e3/uL (4.8-10.8) Red Blood Count 3.57 x10e6/uL (3.6-5.1) Hemoglobin 10.5 g/dL (12.0-16.0) Hematocrit 34.7 % (34.2-44.1) Mean Corpuscular Volume 97.2 fL (81-99) Mean Corpuscular Hemoglobin 29.4 pg (28-32) Mean Corpuscular Hemoglobin Concent 30.3 g/dL (31-35) Red Cell Distribution Width 17.1 % (11.7-14.4) Platelet Count 196 x10e3/uL (140-360) Neutrophils (%) (Auto) 71.5 % (38.7-80.0) Lymphocytes (%) (Auto) 17.6 % (18.0-39.1) Monocytes (%) (Auto) 8.9 % (4.4-11.3) Eosinophils (%) (Auto) 1.4 % (0.0-6.0) Basophils (%) (Auto) 0.3 % (0.0-1.0) Neutrophils # (Auto) 5.3 (2.1-6.9) Lymphocytes # (Auto) 1.3 (1.0-3.2) Monocytes # (Auto) 0.7 (0.2-0.8) Eosinophils # (Auto) 0.1 (0.0-0.4) Basophils # (Auto) 0.0 (0.0-0.1) Absolute Immature Granulocyte (auto 0.02 x10e3/uL (0-0.1) Prothrombin Time 15.2 seconds (11.9-14.5) Prothromb Time International Ratio 1.14 Activated Partial Thromboplast Time 40.4 seconds (23.8-35.5) Sodium Level 138 mmol/L (136-145) Potassium Level 7.8 mmol/L (3.5-5.1) Chloride Level 97 mmol/L (98-107) Carbon Dioxide Level 23 mmol/L (22-29) Anion Gap 25.8 mmol/L (8-16) Blood Urea Nitrogen 113 mg/dL (7-26) Creatinine 11.85 mg/dL (0.57-1.11) Estimat Glomerular Filtration Rate 4 ML/MIN (60-) BUN/Creatinine Ratio 10 (6-25) Glucose Level 198 mg/dL (74-118) Calcium Level 7.4 mg/dL (8.4-10.2) Magnesium Level 2.4 MG/DL (1.3-2.1) Total Bilirubin 0.6 mg/dL (0.2-1.2) Aspartate Amino Transf (AST/SGOT) 15 IU/L (5-34) Alanine Aminotransferase (ALT/SGPT) 12 IU/L (0-55) Alkaline Phosphatase 124 IU/L (40-150) Creatine Kinase 69 IU/L (29-168) Creatine Kinase MB 2.90 ng/mL (0-5.0) Troponin I 0.044 ng/mL (0-0.300) Total Protein 8.0 g/dL (6.5-8.1) Albumin 3.6 g/dL (3.5-5.0) Globulin 4.4 g/dL (2.3-3.5) Albumin/Globulin Ratio 0.8 (0.8-2.0) Lab results reviewed: Yes Imaging Imaging results reviewed: Yes Procedures 12 Lead ECG Interpretation ECG Interpretation : ECG: ECG 1 Date: Apr 05, 2020 Time: 14:51 Rhythm: EMD (not EMD, Junctional Bradycardia) Rate: bradycardia BPM: 51 QRS axis: left Conduction: incomplete RBBB ST segments normal: Yes T wave inversion: aVR, aVL Clinical Impression: abnormal ECG Critical Care Time Total Critical Care Time (min): 50 Critical care time exclusive o: separately billable procedures Critcal care necessary due to: cardiac failure, renal failure, other (hyperk alemia) Critcal care time spent by me: discussion w consultants, discussion w primary provider, evaluation patient response to tx, order/perform tx or interventions, order/review laboratory studies, order/review radiographic studies, pulse oximetry, re-evaluation of patient condition, review of old charts Assessment & Plan Medical Decision Making MDM ESRD on HD but missed HD for 9 days presents SOB - cbc, chem, cardiacs, ecg, cxr - eval for volume overload, hyperkalemia, dysrhythmia, peaked tw's, STEMI/NSTEMI, pneumonia, pulm edema Reassessment Reassessment Junctional bradycardia due to hyperkalemiaof 7.8 - Calcium Gluconate, Bicarb, Insulin/Glucose, I called Dr Greer for acute HD. Admit to Dr Sutton Assessment & Plan Final Impression: (1) ESRD on hemodialysis (2) Hyperkalemia (3) Junctional bradycardia (4) Noncompliance with renal dialysis (5) Volume overload Depart Disposition: ADMITTED Last Vital Signs Date Time Temp Pulse Resp B/P (MAP) Pulse Ox O2 Delivery O2 Flow Rate FiO2 04/05/20 16:14 49 17 167/71 100 Nasal Cannula 3.0 04/05/20 14:42 97.9 Home Meds Active Scripts Levofloxacin (LEVAQUIN) 500 Mg Tablet, 500 MG PO every other day, #4 Prov:FABIAN CARDOZO TAG WRITER 08/26/19 Metronidazole (FLAGYL) 500 Mg Tablet, 500 MG PO TID, #27 Prov:FABIAN CARDOZO TAG WRITER 08/26/19 Clopidogrel Bisulfate (CLOPIDOGREL) 75 Mg Tablet, 75 MG PO DAILY, #30 TAB Prov:FABIAN CARDOZO TAG WRITER 06/04/19 Levothyroxine Sodium (LEVOTHYROXINE SODIUM) 75 Mcg Tablet, 175 MCG PO DAILY, #30 TAB Prov:FABIAN CARDOZO TAG WRITER 06/04/19 Furosemide (FUROSEMIDE) 40 Mg Tablet, 80 MG PO BID, #60 TAB Prov:FABIAN CARDOZO TAG WRITER 06/04/19 Reported Medications Calcium Acetate (CALCIUM ACETATE) 667 Mg Tablet, 667 MG PO TID, CAP 11/07/18 Carvedilol (CARVEDILOL) 3.125 Mg Tablet, 3.125 MG PO BID, #60 TAB 11/07/18 Cilostazol (CILOSTAZOL) 100 Mg Tablet, 50 MG PO DAILY, #30 TAB 11/07/18 Docusate Sodium (DOCUSATE SODIUM) 100 Mg Capsule, 100 MG PO, CAP 11/07/18 Melatonin (MELATONIN) 3 Mg Tablet, 3 MG PO, TAB 11/07/18 Oxycodone Hcl/Acetaminophen (OXYCODONE-ACETAMINOPHEN 5-325) 1 Each Tablet, 5-325 EACH PO, TAB 11/07/18 Hydrocortisone (ANUSOL-HC) 30 Gm Cream..g., 30 MG RC BID, #28 SUPP.RECT 02/24/18 Nifedipine (PROCARDIA XL) 30 Mg Tab.er.24, 30 MG PO DAILY, #30 TAB 02/24/18 Medications in the ED Calcium Gluconate 4.65 meq/Sodium Chloride 60 ml @ 60 mls/hr ONCE ONCE IV ; Start 04/05/20 at 17:00; Stop 04/05/20 at 17:59 Sodium Bicarbonate 100 ml NOW STAT IV ; Start 04/05/20 at 16:33; Stop 04/05/20 at 16:38; Status DC Insulin Human Regular 10 unit ONCE ONCE IV ; Start 04/05/20 at 16:45; Stop 04/05/20 at 16:46; Status DC Dextrose 50 ml NOW STAT IV ; Start 04/05/20 at 16:33; Stop 04/05/20 at 16:37; Status DC Ondansetron HCl 4 mg Q4H PRN IV NAUSEA AND VOMITING; Start 04/05/20 at 17:00; Stop 05/05/20 at 16:59 WILLIE SCHWARTZ MD Apr 05, 2020 17:34
--- NOTE | 2020-04-05 17:43 | NUR ---
Pt medicated per hyperkalemia treatment plan as ordered by Dr. Mckeon.
[2020-04-05] MEDS ORDERED: HYDRALAZINE HCL 20 MG/ML VIAL IV STA (18:10)
--- NOTE | 2020-04-05 18:29 | NUR ---
BP 203/76, HR 82. Pt given 10mg IV hydralazine for for elevated BP
--- NOTE | 2020-04-05 18:40 | NUR ---
Received patient from ER patient arrived in stretcher, verbalizing needs, patient skin assessed only in front, per ER report, Patient has left lateral surgical sites to left lateral hip reported she had hip replacement. Skin is dry and scale cool to touch, lower extremities bilateral stumps r/t amputations. Placed on telemetry, obtained Hemodialysis consent, ER nurse and this nurse witnessed. Patient accepted to have hemodialysis and placed X and in areas her incarials too weak to sign. Bed in low position with breaks on. Belongings and call light within reach will continue to monitor.
[2020-04-05] MEDS ORDERED: SODIUM CHLORIDE 0.9% 1000ML 2,000 ML ONE (19:56)
[2020-04-05 20:00] VITALS: BP 190/94
[2020-04-05] MEDS ORDERED: SODIUM CHLORIDE 0.9% 1000ML 2,000 ML IV PRN (20:00)
[2020-04-05] MEDS ORDERED: HYDRALAZINE HCL 20 MG/ML VIAL IV PRN (20:15)
[2020-04-05] MEDS ORDERED: NIFEDIPINE CR 30 MG TAB PO ONE (20:30)
[2020-04-05] MEDS ORDERED: VANCOMYCIN 250MG/5ML ORAL SOLN PO ONE (20:30)
--- NOTE | 2020-04-05 21:35 | NUR ---
Received pt laying in bed with HD starting, pt denies discomfort at this time, no s/sx of acute distress noted. Bedside report completed. Bed in low and locked position, HD Nurse at bedside. Pt BP noted to be elevated. Pt sister call to ask questions regarding pt admit states, with pt permission sister informed. Will cont to mon pt
[2020-04-05 21:56] VITALS: BP 190/94
--- NOTE | 2020-04-05 23:00 | History and Physical ---
PRIMARY CARE DOCTOR: Dr. Tl Patel. CHIEF COMPLAINT: Missing dialysis. HISTORY OF PRESENT ILLNESS: This is a 75-year-old woman, who is a little drowsy right now since she has missed dialysis for more than a week now. Per history, it was because of diarrhea. At this time, the patient cannot give any meaningful history. It looks like last year, the patient also missed a week of dialysis due to diarrhea as well. There is also history of recent left hip surgery at the [facility], although I cannot verify. She does have healing surgical wound there. Initially, the patient was bradycardiac with a heart rate of 49. The patient was found to have a potassium of 7.8. Once a bicarb and calcium gluconate were given, her heart rate is better now. The patient is awaiting for emergent dialysis. PAST MEDICAL AND SURGICAL HISTORY: 1. End-stage renal disease due to diabetes. 2. Hypertension. 3. Diabetes. 4. COPD. 5. Chronic CHF. 6. Hypothyroidism. 7. Chronic anemia. 8. Bipolar disorder. 9. Hysterectomy. 10. AV graft. MEDICATIONS: Please see medication reconciliation form. ALLERGIES: TO LIPITOR AND PNEUMOCOCCAL VACCINE. SOCIAL HISTORY: Denies any alcohol or tobacco. FAMILY HISTORY: Heart disease. REVIEW OF SYSTEMS: A 10-point review of systems obtained and nothing else is significant other than what is stated in the HPI. PHYSICAL EXAMINATION: VITAL SIGNS: Temperature 97.9, pulse 74, respiratory rate 16, and blood pressure 203/76. GENERAL: Drowsy. SKIN: No rash. HEENT: Anicteric. Oropharynx is clear. LUNGS: Decreased breath sounds. HEART: Regular rate and rhythm. Normal S1 and S2. GI: Abdomen is soft and nondistended. NEUROLOGIC: Drowsy. PSYCHIATRIC: Abnormal judgment. MUSCULOSKELETAL: Moving all extremities spontaneously. LABORATORY DATA: Laboratory ruiz, white count 7.4, hemoglobin 10.5, and platelet count 196. Potassium is 7.8, BUN 113, creatinine 11.85, and sugar 198. ASSESSMENT AND PLAN: 1. Life-threatening hyperkalemia, status post calcium gluconate and bicarb. The patient will also be receiving IV insulin as well. Again, emergent dialysis is being arranged. 2. Diarrhea. We have ruled her out for Clostridium difficile. 3. Hypertensive crisis. We will resume her medicines including nifedipine sustained release. We will also add IV hydralazine p.r.n. 4. Diabetes. The patient will be on a sliding scale. 5. Hypothyroidism. We will check a TSH. We will restart her levothyroxine. 6. Gastrointestinal and deep venous thrombosis prophylaxis. Heparin subcutaneous b.i.d. Yiching MD DOMINIK Bello/JONATHAN /[id number] cc: [facility]
[2020-04-05 23:18] VITALS: BP 190/94
--- NOTE | 2020-04-05 23:23 | Diagnostic Imaging Report ---
HIP RIGHT 2-3 VW (+/- PELVIS) - 3 views HISTORY: Pain COMPARISON: CT pelvis dated 09/04/2019 FINDINGS: Limited by body habitus. No definite evidence of acute displaced fracture or dislocation. Degenerative changes of bilateral hip joints. Prior left femoral intramedullary carley and screw fixation. Degenerative changes of lumbar spine and SI joints. Vascular calcifications. IMPRESSION: No definite evidence of acute displaced fracture or dislocation of the right hip. Limited for evaluation of small nondisplaced fractures due to body habitus. Prior left femoral fixation. Signed by: Dr. Shaquille Ayala MD on 04/05/2020 11:20 PM
[2020-04-05] MEDS: HEPARIN SOD (PORCINE) 5,000 UNIT/ML VIAL SC SCH (23:30)
[2020-04-06] VITALS (8 sets, daily range): BP systolic 119–180; BP diastolic 60–89
[2020-04-06] MEDS ORDERED: MORPHINE SULFATE INJ 4 MG/ML INJ 1ML IV PRN (00:15)
[2020-04-06] MEDS ORDERED: CLONIDINE HCL 0.1 MG TAB PO PRN (02:30)
[2020-04-06] MEDS ORDERED: OXYCODONE/ACETAMINOPHEN 5-325 1 EACH TABLET PO PRN (02:30)
--- NOTE | 2020-04-06 04:47 | NUR ---
During this shift pt c/o pain to left hip 10/10 on pain scale. MD notified for pain med, IV Morphine order received. Pt unable to be medicated with said pain med r/t loss of IV access, After multiple attempts md notified and orders given for po elevated HTN med and po pain med.
[2020-04-06 04:49] LABS: BASOPHILS % 0.3 % (0.0-1.0); EOSINOPHILS # (AUTO) 0.1 (0.0-0.4); EOSINOPHILS % 1.7 % (0.0-6.0); HEMATOCRIT 35.6 % (34.2-44.1); HEMOGLOBIN 10.9 g/dL (12.0-16.0); LYMPHOCYTES % 14.1 % (18.0-39.1); MEAN CORPUSCULAR HEMOGLOBIN 29.3 pg (28-32); MEAN CORPUSCULAR HGB CONC 30.6 g/dL (31-35); MEAN CORPUSCULAR VOLUME 95.7 fL (81-99); MONOCYTES # (AUTO) 0.6 (0.2-0.8); MONOCYTES % 8.7 % (4.4-11.3); NEUTROPHILS # (AUTO) 5.3 (2.1-6.9); NEUTROPHILS % 74.9 % (38.7-80.0); PLATELET COUNT 185 x10e3/uL (140-360); RED BLOOD COUNT 3.72 x10e6/uL (3.6-5.1); RED CELL DISTRIBUTION WIDTH 16.7 % (11.7-14.4)
[2020-04-06 05:07] LABS: ALBUMIN 3.1 g/dL (3.5-5.0); ALBUMIN/GLOBULIN RATIO 0.8 (0.8-2.0); ANION GAP 22.7 mmol/L (8-16); CALCIUM 7.3 mg/dL (8.4-10.2); CREATININE, SERUM 9.1 mg/dL (0.57-1.11); POTASSIUM 5.7 mmol/L (3.5-5.1)
[2020-04-06 05:27] LABS: CREATINE KINASE MB 2.1 ng/mL (0-5.0)
[2020-04-06] MEDS: LEVOTHYROXINE SODIUM 100 MCG TAB PO SCH (06:02)
[2020-04-06] MEDS: LEVOTHYROXINE SODIUM 75 MCG TAB PO SCH (06:02)
[2020-04-06] MEDS ORDERED: LEVOTHYROXINE SODIUM 75 MCG TAB PO SCH (09:00)
[2020-04-06] MEDS: CILOSTAZOL 100 MG TAB PO SCH (09:01)
[2020-04-06] MEDS: NIFEDIPINE CR 30 MG TAB PO SCH (09:01)
[2020-04-06] MEDS: CLOPIDOGREL BISULFATE 75 MG TAB PO SCH (09:01)
[2020-04-06] MEDS: CARVEDILOL 3.125 MG TAB PO SCH ×2 (09:01→16:25)
[2020-04-06] MEDS: HEPARIN SOD (PORCINE) 5,000 UNIT/ML VIAL SC SCH ×2 (09:25→21:50)
[2020-04-06] MEDS ORDERED: LOPERAMIDE HCL 2 MG CAP PO PRN (10:15)
[2020-04-06] MEDS ORDERED: SODIUM CHLORIDE 0.9% 1000ML 2,000 ML IV PRN (12:00)
[2020-04-06] MEDS ORDERED: SODIUM CHLORIDE 0.9% 250ML 500 ML IV PRN (12:00)
[2020-04-06] MEDS ORDERED: ALBUMIN 25% 12.5GM 0.25 GM/ML BTL IV PRN (12:00)
[2020-04-06] MEDS ORDERED: ACETAMINOPHEN 325 MG TAB PO PRN (13:15)
--- NOTE | 2020-04-06 14:24 | Consultation ---
DATE OF CONSULTATION: 04/06/2020 HISTORY OF PRESENT ILLNESS: This is a 75-year-old female, missed dialysis for a week apparently from diarrhea. She has done this before. Additionally, came in hyperkalemic with a junctional rhythm. Potassium is better. Emergency dialysis done. Her blood pressure was quite high. She is now telling me that she really does not want to carry on with dialysis at this time. PAST MEDICAL HISTORY: Diabetes, hypertension, femur fracture after falling when her aide was trying to life her, diabetic foot with partial feet amputation, essentially bedridden, hyperphosphatemia, intermittent hyperkalemia as well as history of missing dialysis. MEDICATIONS: Please see list. REVIEW OF SYSTEMS: Noted to be as above. FAMILY HISTORY: Diabetes. PHYSICAL EXAMINATION: VITAL SIGNS: On examination, temperature is 98.4, pulse 71, blood pressure 140/60. CHEST: Diminished breath sounds at bases. EXTREMITIES: Trace edema. NEUROLOGIC: Appears to be for the most part appropriate. ABDOMEN: Benign. CARDIAC: Normal sounding heart tones. ASSESSMENT: 1. ESRD, hyperkalemia, lack of regular dialysis due to partly noncompliance. 2. Underlying diabetic and hypertensive end-organ damage. 3. Hypothyroidism. 4. Possibly the patient wishing to withdraw from dialysis. PLAN: On maintenance hemodialysis, back to regular TTS schedule. Her potassium remains high. Please see my orders for details. However, she continues to refuse dialysis, will need to consider palliative care. Given her poor quality of life in her own words it may not be unreasonable. We will follow along. MD ALEIDA FelipeK/RAFAELL /[id number]
--- NOTE | 2020-04-06 16:52 | NUR ---
Nutrition Screen Note RD Recommendation for Physician: - Recommend adding Renal restrictions to current diet Plan of Care: RD following, monitoring for tolerance and adequacy Nutrition reason for involvement: DX: ESRD Primary Diagnose(s): ESRD on HD, hyperkalemia PMH: ESRD, DM, HTN, COPD, anemia, partial feet amputations, hypothyroidism, chronic CHF, bipolar disorder Ht: 66 in Wt: 203 lb BMI: 32.8 kg/m2 IBW: [address] Assessment: 04/06: 75 YOF admitted for ESRD, evaluated today per admit dx. Pt admitted for a week of missed HD and AMS, pt unable to provide hx 2/2 mentation. Pt with no wt loss per prior admit hx in November 2019. Pt with good po intake of 100% po since admit. No recorded GI distress. Labs and meds reviewed, hyperkalemia noted. Recommend adding renal diet restrictions. Chart reviewed. Will continue to monitor. Current Diet: 1800 ADA Malnutrition Evaluation (04/06/20) The patient does not meet criteria for a specified degree of malnutrition at this time. Will re-evaluate at follow-up as appropriate. Diet Education Needs Assessment: Diet education indicated, pt not appropriate at this time due to mentation. Diet tolerance: tolerating po Nutrition Care Level: low Signed: Renea Duggan RD, LD, CNSC
--- NOTE | 2020-04-06 17:44 | Diagnostic Imaging Report ---
X-ray pelvis left femur, 3 views. HISTORY: Hip pain. COMPARISON: None available. FINDINGS/IMPRESSION: Status post left femoral intramedullary nail placement for incompletely healed left femur fracture. No additional fracture identified. There are symmetric degenerative changes of the bilateral sacroiliac joints. There are moderate to severe degenerative changes of the bilateral hips. There is multilevel degenerative changes of the lower lumbar spine. Atherosclerotic vascular calcification. Signed by: Alejandra De Leon MD on 04/06/2020 5:40 PM
--- NOTE | 2020-04-06 22:11 | Progress Note ---
DATE: 04/06/2020 SUBJECTIVE: Diarrhea is better. Drowsy from narcotic earlier. OBJECTIVE: VITAL SIGNS: Temperature 98.4, pulse 79, respiratory rate 14, and blood pressure 120/88. GENERAL: Sleepy, but arousable. SKIN: No rash. LUNGS: Decreased breath sounds. HEART: Regular rate and rhythm. Normal S1 and S2. GI: Abdomen is soft and nondistended. NEUROLOGIC: Alert and oriented x3. PSYCHIATRIC: No hallucination. LABORATORY DATA: White count 7, hemoglobin 11, and platelet count 185. Potassium 5.7 and creatinine 9.1. TSH is 11.7. Hip x-ray noted. ASSESSMENT AND PLAN: 1. Life-threatening hyperkalemia, better, likely will need another dialysis today. 2. Diarrhea. CT is negative. We will start Imodium as needed. 3. Hypertensive crisis, resolved after dialysis. 4. Left hip pain, status post open reduction and internal fixation. X-rays okay. 5. Diabetes. We will continue sliding scale. 6. Hypothyroidism. We will continue levothyroxine. Her TSH is elevated. Suspect noncompliance. 7. Frequent noncompliance. Multiple medical comorbidities. We will consult Palliative Medicine. 8. Gastrointestinal and deep venous thrombosis prophylaxis. Heparin subcutaneous. MD DOMINIK Mills/JONATHAN /[id number]
[2020-04-07 04:00] VITALS: BP 144/64
[2020-04-07 04:55] LABS: BASOPHILS % 0.4 % (0.0-1.0); EOSINOPHILS # (AUTO) 0.2 (0.0-0.4); EOSINOPHILS % 3.2 % (0.0-6.0); HEMATOCRIT 34.4 % (34.2-44.1); HEMOGLOBIN 10.3 g/dL (12.0-16.0); LYMPHOCYTES % 19.8 % (18.0-39.1); MEAN CORPUSCULAR HEMOGLOBIN 29.9 pg (28-32); MEAN CORPUSCULAR HGB CONC 29.9 g/dL (31-35); MONOCYTES # (AUTO) 0.7 (0.2-0.8); MONOCYTES % 13.1 % (4.4-11.3); NEUTROPHILS # (AUTO) 3.2 (2.1-6.9); NEUTROPHILS % 63.3 % (38.7-80.0); PLATELET COUNT 147 x10e3/uL (140-360); RED BLOOD COUNT 3.44 x10e6/uL (3.6-5.1); RED CELL DISTRIBUTION WIDTH 16.5 % (11.7-14.4)
[2020-04-07 05:13] LABS: ANION GAP 16.9 mmol/L (8-16); CALCIUM 7.4 mg/dL (8.4-10.2); CREATININE, SERUM 5.77 mg/dL (0.57-1.11); POTASSIUM 4.9 mmol/L (3.5-5.1)
[2020-04-07] MEDS: LEVOTHYROXINE SODIUM 75 MCG TAB PO SCH (05:54)
[2020-04-07] MEDS: LEVOTHYROXINE SODIUM 100 MCG TAB PO SCH (05:54)
[2020-04-07 07:07] VITALS: BP 153/76
[2020-04-07 07:08] VITALS: BP 153/76
[2020-04-07] MEDS: CLOPIDOGREL BISULFATE 75 MG TAB PO SCH (09:10)
[2020-04-07] MEDS: CILOSTAZOL 100 MG TAB PO SCH (09:10)
[2020-04-07] MEDS: NIFEDIPINE CR 30 MG TAB PO SCH (09:10)
[2020-04-07] MEDS: CARVEDILOL 3.125 MG TAB PO SCH ×2 (09:10→17:07)
[2020-04-07] MEDS: HEPARIN SOD (PORCINE) 5,000 UNIT/ML VIAL SC SCH (09:13)
[2020-04-07 12:00] VITALS: BP 159/73
[2020-04-07 17:07] VITALS: BP 121/70
[2020-04-07] MEDS ORDERED: ONDANSETRON HCL 4 MG ORAL DISINTEGRATING TAB PO PRN (17:45)
--- NOTE | 2020-04-08 03:31 | Discharge Summary ---
PRIMARY CARE DOCTOR: Dr. Tl Patel. FINAL DIAGNOSIS: Life threatening hyperkalemia due to missing dialysis. SECONDARY DIAGNOSES: 1. End-stage renal disease due to diabetes. 2. Hypertension. 3. Chronic obstructive pulmonary disease. 4. Chronic congestive heart failure. 5. Hypothyroidism. 6. Chronic anemia. 7. Bipolar disorder. CONSULTANTS: Dr. Greer, Nephrology. PROCEDURES/STUDIES PERFORMED: Dialysis x2. HISTORY: Per [facility] HOSPITAL COURSE: The patient was admitted. The patient had emergent dialysis done. The next day, the patient had another dialysis done given that she was still mildly hypokalemic. Currently, the patient is doing fine, stable. We will discharge home. She understands that she has to go to dialysis. Her next scheduled one is tomorrow. Her diarrhea has resolved. Her bradycardia due to hyperkalemia has resolved as well. The patient was seen and examined today. It took 32 minutes total to discharge this patient. CONDITION ON DISCHARGE: Improved. DISCHARGE MEDICATIONS: Please see medication reconciliation form. MD DOMINIK Mills/JONATHAN /[id number] cc: [facility]
== END 2020-04-07 18:06 | disposition home or self-care (01) | DRG 640 ==
LOC: ER 15:20 → ERHOLD 17:05 → IMCU 19:10
PROVIDERS: ADMIT Internal Medicine; ATTEND Internal Medicine
PROC: 5A1D70Z Performance of Urinary Filtration, Intermittent, Less than 6 Hours Per Day (ICD-10-PCS; principal; 2020-04-05)
DX: E87.5 Hyperkalemia (principal); N18.6 End stage renal disease; I16.9 Hypertensive crisis, unspecified; I13.2 Hypertensive heart and chronic kidney disease with heart failure and with stage 5 chronic kidney disease, or end stage renal disease; E11.22 Type 2 diabetes mellitus with diabetic chronic kidney disease; E03.9 Hypothyroidism, unspecified; Z99.2 Dependence on renal dialysis; Z91.15 Patient's noncompliance with renal dialysis; Z79.4 Long term (current) use of insulin; J44.9 Chronic obstructive pulmonary disease, unspecified; F31.9 Bipolar disorder, unspecified; D64.9 Anemia, unspecified; I50.9 Heart failure, unspecified; Z11.59 Encounter for screening for other viral diseases; M25.552 Pain in left hip
CPT/HCPCS: 36415; 71045; 80048; 80053; 82550; 82553; 83735; 84443; 84484; 85025; 85610; 85730; 86706; 87340; 87493; 93005; 99251; 99284; J0360; J0610; J1644; J1817; J2270; J2405; J7030; J7799; U0002

== ENCOUNTER 2020-04-24 10:50 | Observation (INO) | payer MEDICARE ==
[~2020-04-24] VITALS: Ht 167.6 cm; Wt 92.1 kg
[2020-04-24 11:24] LABS: BASOPHILS % 0.2 % (0.0-1.0); EOSINOPHILS # (AUTO) 0.1 (0.0-0.4); EOSINOPHILS % 2.5 % (0.0-6.0); HEMATOCRIT 34.6 % (34.2-44.1); HEMOGLOBIN 10.3 g/dL (12.0-16.0); LYMPHOCYTES # (AUTO) 1.2 (1.0-3.2); LYMPHOCYTES % 21.2 % (18.0-39.1); MEAN CORPUSCULAR HEMOGLOBIN 28.2 pg (28-32); MEAN CORPUSCULAR HGB CONC 29.8 g/dL (31-35); MEAN CORPUSCULAR VOLUME 94.8 fL (81-99); MONOCYTES # (AUTO) 0.6 (0.2-0.8); MONOCYTES % 10.4 % (4.4-11.3); NEUTROPHILS # (AUTO) 3.7 (2.1-6.9); NEUTROPHILS % 65.5 % (38.7-80.0); PLATELET COUNT 208 x10e3/uL (140-360); RED BLOOD COUNT 3.65 x10e6/uL (3.6-5.1); RED CELL DISTRIBUTION WIDTH 14.9 % (11.7-14.4)
[2020-04-24 11:33] LABS: INR 1.05; PROTHROMBIN TIME 14.2 seconds (11.9-14.5)
[2020-04-24 11:34] LABS: PARTIAL THROMBOPLASTIN TIME 36.7 seconds (23.8-35.5)
[2020-04-24 11:43] LABS: ALBUMIN 2.7 g/dL (3.5-5.0); ALBUMIN/GLOBULIN RATIO 0.6 (0.8-2.0); ALKALINE PHOSPHATASE 73 IU/L (40-150); ANION GAP 19.4 mmol/L (8-16); BLOOD UREA NITROGEN 56 mg/dL (7-26); BUN/CREATININE RATIO 6 (6-25); CALCIUM 7.7 mg/dL (8.4-10.2); CARBON DIOXIDE 27 mmol/L (22-29); CHLORIDE 96 mmol/L (98-107); CREATINE KINASE 37 IU/L (29-168); CREATININE, SERUM 9.28 mg/dL (0.57-1.11); EST GLOMERULAR FILTRATION RATE 5 ML/MIN (60-); GLUCOSE 170 mg/dL (74-118); POTASSIUM 4.4 mmol/L (3.5-5.1); SODIUM 138 mmol/L (136-145)
[2020-04-24 11:44] LABS: ALANINE AMINOTRANSFERASE < 6 IU/L (0-55)
--- OUTSIDE RECORDS SUMMARY | 2020-04-24 11:57 | XMS REPORT | Clinical Summary ---
Author Author YADIEL [facility] Organization [facility] Address Unknown Phone Unavailable Care Team Providers Care Sock Drier Name Role Phone Tl Patel PCP Allergies Comments Active Allergy Reactions Severity Noted Date Atorvastatin Anaphylaxis High 01/17/2015 Confusion Morphine Other (See 09/09/2019 Comments) Pneumococcal Vaccine Shortness Of High 5 Breath Pneumococcal 23-Nancy Ps Hives, High 015 Vaccine Shortness Of Breath Medications End Date Status Medication Sig Dispensed Refills Start Date Active calcium acetate (PHOSLO) Take 2,001 mg 0 667 mg capsule by mouth 3 (three) times daily with meals. Active docusate sodium (COLACE) Take 1 30 capsule 0 0 100 MG capsule capsule (100 9 mg total) by mouth 2 (two) times daily. Active aspirin 81 MG EC tablet Take 81 mg by 0 mouth daily. Active bisacodyl (DULCOLAX) 5 mg Take 2 0 03/0 EC tablet tablets (10 9 mg total) by mouth daily as needed for Constipation. Active famotidine (PEPCID) 20 MG Take 1 tablet 0 03/0 tablet (20 mg total) 9 by mouth daily. Active polyethylene glycol Take 17 g by 0 (GLYCOLAX) 17 gram packet mouth daily. 9 Active sertraline (ZOLOFT) 25 MG Take 25 mg by 0 tablet mouth daily. Active ticagrelor (BRILINTA) 90 Take 1 tablet 0 07/11 mg Tab tablet (90 mg total) 9 by mouth 2 (two) times daily. Active fluticasone propionate 1 spray by 0 (FLONASE) 50 Nasal route mcg/actuation nasal spray daily. Active venlafaxine (EFFEXOR) 50 Take 50 mg by 0 MG tablet mouth 2 (two) times daily. Active QUEtiapine (SEROQUEL) 25 Take 25 mg by 0 MG tablet mouth 2 (two) times daily. Active cilostazoL (PLETAL) 100 Take 100 mg 0 MG tablet by mouth 2 (two) times daily. Active nitroglycerin (NITROSTAT) Place 0.4 mg 0 0.4 MG SL tablet under the tongue every 5 (five) minutes as needed for Chest pain Put 1 pill under tongue every 5min as needed for chest pain.No more than 3 doses in 15min.Call 911 if pain is unrelieved 5min after 1st dose . Active gabapentin (NEURONTIN) Take 1 0 02 100 MG capsule capsule (100 0 mg total) by mouth nightly. 04/16/2021 Active insulin lispro (HUMALOG) Inject 2 10 mL 0 1 100 unit/mL injection Units 0 subcutaneousl y 3 (three) times daily with meals Do not take if blood glucose < 150.. 04/17/2021 Active levothyroxine (SYNTHROID, Take 1 tablet 90 tablet 3 LEVOTHROID) 200 MCG (200 mcg 0 tablet total) by mouth Every morning on an empty stomach. 04/16/2021 Active NIFEdipine (ADALAT CC) 30 Take 1 tablet 0 0 MG 24 hr tablet (30 mg total) 0 by mouth daily Hold on the days of dialysis. Hold also if SBP <110 or DBP <50.. 04/16/2021 Active rosuvastatin (CRESTOR) 20 Take 1 tablet 90 tablet 3 MG tablet (20 mg total) 0 by mouth nightly. 04/26/2020 Active acetaminophen-codeine Take 1 tablet 30 tablet 0 (TYLENOL #3) 300-30 mg by mouth 0 per tablet every 4 (four) hours as needed for Pain for up to 10 days. Max Daily Amount: 6 tablets Active carvediloL (COREG) 3.125 Take 1 tablet 0 04/16 MG tablet (3.125 mg 0 total) by mouth 2 (two) times daily with breakfast and dinner Hold on dialysis days. Also hold for SBP <110 or DBP <50 or HR <50.. Active epoetin jyothi-epbx Inject 1 mL 0 (RETACRIT) 10,000 unit/mL (10,000 Units 0 Soln total) injectionIndications: subcutaneousl anemia in chronic kidney y 3 (three) disease times a week after dialysis MON/SUN/SUN. 10/22/2019 Discontinued (Med History: P atient Reported Med no longer taking) cholecalciferol, vitamin After you 0 01/02 D3, (VITAMIN D3) 2,000 have finished 4 unit Cap the prescription strength vitamin D (around 01/02/14), start taking [id number] ter vitamin D3 2000 units daily.. 10/27/2019 Discontinued carvedilol (COREG) 3.125 Take 1 tablet 60 tablet 1 MG tablet (3.125 mg 9 total) by mouth 2 (two) times daily with breakfast and dinner. 07/27/2019 cilostazol (PLETAL) 50 MG Take 1 tablet 180 tablet 0 tablet (50 mg total) 9 by mouth 2 (two) times daily. 07/11/2019 Discontinued (Stop Taking at Discharge) clopidogrel (PLAVIX) 75 Take 1 tablet 90 tablet 0 mg tablet (75 mg total) 9 by mouth daily. 09/02/2019 Discontinued (Stop Taking at Discharge) NIFEdipine (ADALAT CC) 30 Take 1 tablet 90 tablet 0 MG 24 hr tablet (30 mg total) 9 by mouth daily. 07/27/2019 nitroglycerin (NITROSTAT) Put 1 pill 10 tablet 0 0.4 MG SL tablet under tongue 9 every 5min as needed for chest pain.No more than 3 doses in 15min.Call 911 if pain is unrelieved. 10/27/2019 Discontinued rosuvastatin (CRESTOR) 10 Take 1 tablet 90 tablet 0 MG tablet (10 mg total) 9 by mouth daily. 04/16/2020 Discontinued (Stop Taking at Discharge) levothyroxine (SYNTHROID, Take 175 mcg 0 LEVOTHROID) 175 MCG by mouth tablet Every morning on an empty stomach. 09/03/2019 Discontinued (Reorder) insulin NPH (HUMULIN N) Inject 13 0 100 unit/mL injection Units 9 subcutaneousl y 2 (two) times daily before meals Do not give if Accu-Cheks less than 150. 04/16/2020 Discontinued (Reorder) epoetin jyothi-epbx Inject 1 mL 0 (RETACRIT) 10,000 unit/mL (10,000 Units 9 Soln total) injectionIndications: subcutaneousl anemia in chronic kidney y 3 (three) disease times a week at bedtime. 04/16/2020 Discontinued (Stop Taking at Discharge) fluticasone (FLONASE) 50 1 spray by 0 09/17 mcg/actuation nasal spray Nasal route 9 daily. 09/02/2019 Discontinued (Error) heparin injection 5,000 Inject 1 mL 0 units/mL for DVT (5,000 Units 9 prophylaxis/dialysis total) lock/IV bolus subcutaneousl y every 12 (twelve) hours. 09/03/2019 Discontinued (Error) HYDROcodone-acetaminophen Take 1 tablet 15 tablet 0 (NORCO 5-325) 5-325 mg by mouth 9 per tablet every 6 (six) hours as needed (For severe pain). Max Daily Amount: 4 tablets 09/02/2019 Discontinued (Error) insulin lispro (HUMALOG) Inject 0-12 10 mL 0 0 100 unit/mL injection Units 9 subcutaneousl y as needed (High blood sugar). 09/02/2019 Discontinued (Error) insulin lispro (HUMALOG) Inject 0-4 10 mL 0 0 100 unit/mL injection Units 9 subcutaneousl y every night as needed (High blood sugar). 07/11/2019 Discontinued (Stop Taking at Discharge) metroNIDAZOLE (FLAGYL) Take 500 mg 0 500 MG tablet by mouth 2 (two) times daily. 07/11/2019 Discontinued (Stop Taking at Discharge) furosemide (LASIX) 80 MG Take 80 mg by 0 tablet mouth 2 (two) times daily. 10/22/2019 Discontinued (Med History: P atient Reported Med no longer taking) cloNIDine HCl (CATAPRES) Take 0.1 mg 0 0.1 MG tablet by mouth as needed. 09/02/2019 Discontinued (Error) traMADol (ULTRAM) 50 mg Take 50 mg by 0 tablet mouth every 6 (six) hours as needed for Pain. 10/22/2019 Discontinued (Med History: P atient Reported Med no longer taking) cholestyramine (QUESTRAN) Take 1 packet 0 4 gram PwPk packet by mouth 2 (two) times daily with breakfast and dinner. 07/15/2019 clindamycin (CLEOCIN) 300 Take 1 12 capsule 0 MG capsule capsule (300 9 mg total) by mouth every 8 (eight) hours for 4 days. 09/18/2019 Discontinued (Stop Taking at Discharge) melatonin 3 mg Tab tablet Take 1 tablet 0 06/16 (3 mg total) 9 by mouth nightly. 08/20/2019 AZITHROmycin (ZITHROMAX) Take by mouth 5 tablet 0 250 MG tablet as directed.. 0 09/18/2019 Discontinued (Stop Taking at Discharge) gabapentin (NEURONTIN) Take 2 90 capsule 0 100 MG capsule capsules (200 0 mg total) by mouth 3 (three) times daily for 30 days. 09/03/2019 Discontinued (Stop Taking at Discharge) NIFEdipine (ADALAT CC) 60 Take 1 tablet 30 tablet 0 MG 24 hr tablet (60 mg total) 0 by mouth daily for 30 days. 09/03/2019 Discontinued (Stop Taking at Discharge) NIFEdipine (ADALAT CC) 30 Take 1 tablet 30 tablet 0 MG 24 hr tablet (30 mg total) 0 by mouth daily. 04/16/2020 Discontinued (Reorder) NIFEdipine (ADALAT CC) 30 Take 30 mg by 0 MG 24 hr tablet mouth daily. 09/17/2019 Discontinued (Stop Taking at Discharge) insulin NPH (HUMULIN N) Inject 10 10 mL 0 100 unit/mL injection Units 0 subcutaneousl y 2 (two) times daily before meals Do not give if Accu-Cheks less than 150. 09/17/2019 HYDROcodone-acetaminophen Take 1 tablet 20 tablet 0 (NORCO 7.5-325) 7.5-325 by mouth 0 mg per tablet every 6 (six) hours as needed for up to 10 days. Max Daily Amount: 4 tablets 09/17/2019 Discontinued traZODone (DESYREL) 100 Take 1 tablet 10 tablet 0 MG tablet (100 mg 0 total) by mouth nightly for 10 days. 09/17/2019 Discontinued QUEtiapine (SEROQUEL) 25 Take 1 tablet 0 09/16 MG tablet (25 mg total) 0 by mouth nightly for 10 days. 10/22/2019 Discontinued (Med History: P atient Reported Med no longer taking) insulin lispro (HUMALOG) Inject 0-12 10 mL 0 0 100 unit/mL injection Units 0 subcutaneousl y as needed (High blood sugar). 10/01/2019 traZODone (DESYREL) 100 Take 1 tablet 14 tablet 0 MG tablet (100 mg 0 total) by mouth nightly for 14 days. 09/18/2019 Discontinued QUEtiapine (SEROQUEL) 25 Take 1 tablet 0 09/16 MG tablet (25 mg total) 0 by mouth nightly for 14 days. 10/02/2019 QUEtiapine (SEROQUEL) 25 Take 1 tablet 0 09/17 MG tablet (25 mg total) 0 by mouth 2 (two) times daily for 14 days Hold morning dose for sedation. 10/27/2019 Discontinued (Stop Taking at Discharge) clindamycin (CLEOCIN) 300 Take 300 mg 0 MG capsule by mouth 3 (three) times daily. 04/16/2020 Discontinued (Reorder) gabapentin (NEURONTIN) Take 100 mg 0 100 MG capsule by mouth daily. 03/02/2020 Discontinued (Reorder) carvediloL (COREG) 25 MG Take 25 mg by 0 tablet mouth 2 (two) times daily with breakfast and dinner. 03/02/2020 Discontinued (Reorder) HYDROcodone-acetaminophen Take 1 tablet 0 (NORCO 7.5-325) 7.5-325 by mouth mg per tablet every 6 (six) hours as needed for Pain. 04/16/2020 Discontinued INSULIN LISPRO SUBQ Inject 2 0 Units subcutaneousl y 3 (three) times daily with meals Do not take if accuchecks < 200 . 04/16/2020 Discontinued (Reorder) rosuvastatin (CRESTOR) 20 Take 10 mg by 0 MG tablet mouth daily. 04/01/2020 carvediloL (COREG) 3.125 Take 1 tablet 60 tablet 0 MG tablet (3.125 mg 0 total) by mouth 2 (two) times daily with breakfast and dinner for 30 days. 04/16/2020 Discontinued (Stop Taking at Discharge) HYDROcodone-acetaminophen Take 1 tablet 30 tablet 0 (NORCO 7.5-325) 7.5-325 by mouth 0 mg per tablet every 6 (six) hours as needed for Pain. Max Daily Amount: 4 tablets 04/16/2020 Discontinued (Stop Taking at Discharge) carvediloL (COREG) 12.5 Take 1 tablet 0 MG tablet (12.5 mg 0 total) by mouth 2 (two) times daily with breakfast and dinner Hold for SBP <110 or DBP <50 or HR <50.. 04/16/2020 Discontinued (Reorder) carvediloL (COREG) 3.125 Take 3.125 mg 0 MG tablet by mouth 2 (two) times daily with breakfast and dinner. Active Problems Problem Noted Date Closed fracture of left femur 04/15/2020 Hyperkalemia 04/14/2020 Closed displaced transverse fracture of shaft of left femur, initial 02/25/2020 encounter Delirium 09/17/2019 UTI (urinary tract infection) 09/08/2019 Altered mental status, unspecified altered mental sta tus type 09/05/2019 ESRD (end stage renal disease) on dialysis 0 Gangrene of right foot 08/29/2019 Hypoxia 08/14/2019 Volume overload 08/14/2019 Pneumonia of left lower lobe due to infectious organi sm 08/14/2019 Acute ischemic stroke 06/30/2019 Received intravenous tissue plasminogen activator (tP A) in emergency 06/30/2019 department Hypertension 06/30/2019 Overview: stress 2008 neg Peripheral neuropathy 06/30/2019 Diabetes 06/30/2019 Morbid obesity with BMI of 45.0-49.9, adult 06/30/20 19 HLD (hyperlipidemia) 06/30/2019 Coronary artery disease 06/30/2019 Anemia due to blood loss 06/30/2019 Stroke (cerebrum) 06/28/2019 Fever 09/13/2018 GERD (gastroesophageal reflux disease) 09/10/2018 PAD (peripheral artery disease) 09/10/2018 Type 2 diabetes mellitus with hyperglycemia, with tomy g-term current use of 09/10/2018 insulin Hypothyroidism 09/10/2018 ESRD on hemodialysis 09/10/2018 Chronic anemia 09/10/2018 Gangrene of toe of left foot 09/09/2018 DAVID (obstructive sleep apnea) 02/02/2015 Overview: suspected ESRD needing dialysis 02/01/2015 Bipolar disorder 01/22/2015 Chronic diastolic heart failure 01/22/2015 Chronic gout 01/22/2015 Hyperlipidemia 01/17/2015 Class 2 severe obesity with serious comorbidity in ad ult 01/17/2015 Essential hypertension Encounters Care Team Description Date Type Specialty 04/16/2020 Travel Pam Ramesh MD Zalavarria, Jonard Herbias, MD Stull, Cassidy Hull MD Fall, initial encounter (Primary Dx); Acute ischemic stroke (HCC); Left leg pain; Closed fracture of shaft of left femur, unspecified fracture morphology, initial encounter (HCC); Hyperkalemia; ESRD (end stage renal disease) on dialysis (HCC) 04/14/2020 Hospital Cardiology - Encounter 04/16/2020 04/14/2020 Orders Only General Internal In dicine 04/14/2020 Travel Stu Mayfield MD Leibman, Neville Saul, MD 02/26/2020 Anesthesia Event Deandra Morales MD ORIF,FEMUR 02/26/2020 Surgery Saad Baker MD Ali, MD Spike Arana Hector B., MD Cahill, Catherine Wynne, MD Closed displaced transverse fracture of shaft of left femur, initial encounter (HCC) (Primary Dx); Fall, initial encounter; Left leg pain; Bradycardia; Acute hyperkalemia; ESRD on dialysis (HCC); Noncompliance 02/25/2020 [facility] General Internal Me dicine - Encounter 03/02/2020 02/25/2020 Orders Only General Internal In dicine 02/25/2020 Travel Kishore Gill MD Goldman, Steven, CRNA 10/24/2019 Anesthesia Event Goyo Hjai MD AMPUTATION,FOOT 10/24/2019 Surgery Juan J Ocasio MD Bipolar disorder in full remission, most recent episode unspecified type (HCC); Cognitive impairment 10/22/2019 [facility] General Internal Me dicine - Encounter 10/27/2019 10/22/2019 Orders Only General Internal In dicine Ofordeme, Kenechukwu TlMD Oliver jeffries Adam Michael, MD Alagugurusamy, Rajkumar, MD Dang, Will Reilly MD Altered mental status, unspecified alter ed mental status type (Primary Dx); ESRD (end stage renal disease) on dialysis (HCC); Acute UTI; SOB (shortness of breath); Bipolar disorder in full remission, most recent episode unspecified type (HCC); Delirium due to another medical condition; Subacute delirium; Delirium 09/05/2019 [facility] dicine - Encounter 09/19/2019 09/03/2019 Travel Geri Louie MD Narayan, Rakesh, MD 08/29/2019 Anesthesia Event Goyo Haji MD AMPUTATION,FOOT 08/29/2019 Surgery Goyo Haji MD Warren, Vicki Pope MD 08/29/2019 [facility] dicine - Encounter 09/03/2019 08/28/2019 Hospital Pre-Admission Testi ng Encounter Denny Sandoval CRNA 08/22/2019 Anesthesia Event Renea Castañeda 08/14/2019 Anesthesia Event Yolanda Woodard MD Rehman, Javed, MD Pneumonia of left lower lobe due to infe ctious organism ([facility]) (Primary Dx); Hypervolemia, unspecified hypervolemia type; ESRD on dialysis (HCC) 08/14/2019 [facility] dicine - Encounter 08/15/2019 08/14/2019 Orders Only [facility] dicine 08/14/2019 Travel Jonathan Wood MD PERIPHERAL ANGIOS & IVUS 06/27/2019 Surgery Jonathan Wood MD [facility], MD Emily Faulkner, MD Thomas Steve Yang, MD Warren, MD Javid Dias, Stephen Chambers MD 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); Acute ischemic stroke (HCC); PAD (peripheral artery disease) ([facility]); Anemia due to blood loss; Bipolar affective disorder, remission status unspecified (HCC); Coronary artery disease involving [place]hoe coronary artery of [place]hoe heart without angina pectoris; Type 2 diabetes mellitus with diabetic polyneuropathy, without long-term current use of insulin (HCC); ESRD needing dialysis (HCC); Mixed hyperlipidemia; Received intravenous tissue plasminogen activator (tPA) in emergency department; Essential hypertension; Hypothyroidism, unspecified type; Impaired mobility and ADLs; Abnormal gait; Physical deconditioning; Cognitive deficits 06/27/2019 [facility] Internal In dicine - Encounter 07/11/2019 06/27/2019 Travel Jonathan Wood MD 06/26/2019 Orders Only Cardiology after 04/24/2019 Social History Date Tobacco Use Types Packs/Day Years Used Never Smoker Smokeless Tobacco: Never Used Drinks/Week oz/Week Comments Alcohol Use No Sex Assigned at Date Recorded Not on file Date Recorded COVID-19 Exposure Response 04/16/2020 12:32 PM CDT In the last month, have you been in contact with No / Unsure someone who was confirmed or suspected to have Coronavirus / COVID-19? Last Filed Vital Signs Reading Time Taken Comments Vital Sign 156/67 04/16/2020 3:00 PM CDT Blood Pressure 82 04/16/2020 3:00 PM CDT Pulse 36.2 C (97.1 F) 04/16/2020 3:00 PM CDT Temperature 18 04/16/2020 3:00 PM CDT Respiratory Rate 92% 04/16/2020 3:00 PM CDT Oxygen Saturation 28% 03/01/2020 7:28 PM CDT Inhaled Oxygen Concentration 86 kg (189 lb 9.5 oz) 04/16/2020 11:15 AM CDT Weight 167.6 cm (5' 6") 04/14/2020 12:55 PM CDT Height 30.6 04/14/2020 12:55 PM CDT Body Mass Index Plan of Treatment Health Maintenance Due Date Last Done Comments BREAST CANCER SCREENING 1945 COLON CANCER SCREENING 1947 COLONOSCOPY DIABETIC EYE EXAM 1957 DIABETIC FOOT EXAM 1957 URINE MICROALBUMIN 1957 MEDICARE ANNUAL WELLNESS 09/14/2008 (YEAR 2 or FIRST YEAR if no IPPE) INFLUENZA VACCINE (#1) 2020 03/25/2019, 03/30/2016 HEMOGLOBIN A1C 10/15/2020 04/16/2020, 10/22/2019, 08/15/2019, Additional history exists PNEUMOCOCCAL 65+ YRS Completed 04/23/2017, 10/03/1989 Implants Device Identifier Shelf Expiration Date Model / Serial / L ot Implanted Type Area Manufactur er 03/15/2028 04.005.530S / / [id number] Scr Lck T25 5.0x40 Ti [id number] - IMPLANTS Left: Hip SYNTHES:SY [id number] [employer] [place] Implanted: Qty: 1 on 02/26/2020 by Deandra Morales MD at [facility] 01/13/2028 04.005.538S / / [id number] Scr Lck T25 5.0x48 Ti 04.005.538s - IMPLANTS Left: Hip SYNTHES:SY [id number] [employer] [place] Implanted: Qty: 1 on 02/26/2020 by Deandra Morales MD at [facility] 12/13/2026 04.038.185S / / [id number] Scr Tfna 85mm Strl 04.038.185s - IMPLANTS Left: Hip SYNTHES:SY [id number] [employer]TH[employer] [place] Implanted: Qty: 1 on 02/26/2020 by Deandra Morales MD at [facility] 02/13/2022 [id number] / [id number] / N/A Epifix Micronized Dehydrated Human Right: Foot [place] [employer] Particulate Implanted: Qty: 1 on 08/29/2019 by Goyo Haji MD at [facility] 01/12/2025 04.037.131S / / [id number] Mm/125 Deg Ti Lynn Tfna 400 Left: Hip Synthe s Mm/Left - Sterile Implanted: Qty: 1 on 02/26/2020 by Deandra Morales MD at [facility] Procedures Comments Procedure Name Priority Date/Time Associated Diag nosis RHYTHM STRIP - SCAN 04/19/2020 11:13 AM CDT REPORT OF PROCEDURE - 04/19/2020 ENDOSCOPY SCAN 11:13 AM CDT POCT-GLUCOSE METER Routine 04/16/2020 11:59 AM CDT POCT-GLUCOSE METER Routine 04/16/2020 7:40 AM CDT CBC W/PLT COUNT & AUTO Routine 04/16/2020 DIFFERENTIAL 4:15 AM CDT T4, FREE Routine 04/16/2020 4:15 AM CDT HEPATIC FUNCTION PANEL Routine 04/16/2020 4:15 AM CDT LIPID PANEL Routine 04/16/2020 4:15 AM CDT HEMOGLOBIN A1C Routine 04/16/2020 4:15 AM CDT TSH/FREE T4 IF INDICATED Routine 04/16/2020 4:15 AM CDT VITAMIN B12 AND FOLATE Routine 04/16/2020 4:15 AM CDT FERRITIN Routine 04/16/2020 4:15 AM CDT IRON, TIBC, % SAT. Routine 04/16/2020 (WITHOUT FERRITIN) 4:15 AM CDT CBC W/PLT COUNT & AUTO Routine 04/16/2020 DIFFERENTIAL 4:15 AM CDT PHOSPHORUS Routine 04/16/2020 4:15 AM CDT MAGNESIUM Routine 04/16/2020 4:15 AM CDT BASIC METABOLIC PANEL (7) Routine 04/16/2020 4:15 AM CDT POCT-GLUCOSE METER Routine 04/15/2020 8:54 PM CDT POCT-GLUCOSE METER Routine 04/15/2020 4:35 PM CDT POCT-GLUCOSE METER Routine 04/15/2020 11:13 AM CDT POCT-GLUCOSE METER Routine 04/15/2020 6:10 AM CDT CBC W/PLT COUNT & AUTO Routine 04/15/2020 DIFFERENTIAL 4:16 AM CDT TROPONIN I Routine 04/15/2020 4:16 AM CDT CBC W/PLT COUNT & AUTO Routine 04/15/2020 DIFFERENTIAL 4:16 AM CDT PHOSPHORUS Routine 04/15/2020 4:16 AM CDT MAGNESIUM Routine 04/15/2020 4:16 AM CDT BASIC METABOLIC PANEL (7) Routine 04/15/2020 4:16 AM CDT POCT-GLUCOSE METER Routine 04/15/2020 12:24 AM CDT TROPONIN I STAT 04/15/2020 12:24 AM CDT HEPATITIS B SURFACE STAT 04/14/2020 ANTIGEN 8:15 PM CDT POCT-GLUCOSE METER Routine 04/14/2020 7:10 PM CDT SARS-COV2/RT-PCR ([facility] & STAT 04/14/2020 REF LABS) 6:29 PM CDT POCT-GLUCOSE METER Routine 04/14/2020 6:15 PM CDT POTASSIUM STAT 04/14/2020 4:25 PM CDT TROPONIN I STAT 04/14/2020 4:25 PM CDT XR ANKLE 3 VIEWS LEFT STAT 04/14/2020 4:05 PM CDT XR KNEE LEFT COMPLETE (4 STAT 04/14/2020 VIEWS) 4:05 PM CDT XR FEMUR 2 VIEWS LEFT STAT 04/14/2020 4:05 PM CDT XR PELVIS 1 OR 2 VIEWS STAT 04/14/2020 4:05 PM CDT XR SPINE THORACIC 2 VIEWS STAT 04/14/2020 4:05 PM CDT XR CHEST 1 VIEW STAT 04/14/2020 PORTABLE/BEDSIDE 4:05 PM CDT ECG 12-LEAD Routine 04/14/2020 3:02 PM CDT Procedure Note - Interface, External Ris In - 04/15/2020 4:27 AM CDT Ventricula r Rate 69 BPM Atrial Rate 69 BPM P-R Interval 222 ms QRS Duration 88 ms Q-T Interval 436 ms QTC Calculatio n(Bazett) 467 ms P [place] 56 degrees R [place] -23 degrees T [place] 70 degrees Sinus rhythm with 1st degree A-V block Possible Anterior infarct , age undetermin ed Abnormal ECG When compared with ECG of 0 17:40, Sinus rhythm has replaced Ectopic atrial rhythm Incomplete right bundle branch block is no longer Present Borderline criteria for Anterior infarct are now Present ECG 12-LEAD STAT 04/14/2020 3:02 PM CDT CBC W/PLT COUNT & AUTO STAT 04/14/2020 DIFFERENTIAL 2:53 PM CDT CREATINE KINASE (CK) STAT 04/14/2020 2:53 PM CDT B-TYPE NATRIURETIC FACTOR STAT 04/14/2020 (BNP) 2:53 PM CDT TROPONIN I STAT 04/14/2020 2:53 PM CDT PT/APTT STAT 04/14/2020 2:53 PM CDT BASIC METABOLIC PANEL (7) STAT 04/14/2020 2:53 PM CDT CBC W/PLT COUNT & AUTO STAT 04/14/2020 DIFFERENTIAL 2:53 PM CDT REPORT OF PROCEDURE - 03/05/2020 ENDOSCOPY SCAN 9:31 AM CDT TRANSFUSION SERVICE 03/03/2020 REPORT - SCAN 6:01 PM CDT RHYTHM STRIP - SCAN 03/03/2020 11:33 AM CDT PREPARE LEUKO-REDUCED RBC Routine 03/02/2020 11:54 PM CDT TRANSFUSION SERVICE 03/02/2020 REPORT - SCAN 6:21 PM CDT POCT-GLUCOSE METER Routine 03/02/2020 4:25 PM CDT POCT-GLUCOSE METER Routine 03/02/2020 11:34 AM CDT POCT-GLUCOSE METER Routine 03/02/2020 7:58 AM CDT CBC W/PLT COUNT & AUTO Routine 03/02/2020 DIFFERENTIAL 4:19 AM CDT CBC W/PLT COUNT & AUTO Routine 03/02/2020 DIFFERENTIAL 4:19 AM CDT PHOSPHORUS Routine 03/02/2020 4:19 AM CDT MAGNESIUM Routine 03/02/2020 4:19 AM CDT BASIC METABOLIC PANEL (7) Routine 03/02/2020 4:19 AM CDT POCT-GLUCOSE METER Routine 03/01/2020 9:58 PM CDT TRANSFUSE LEUKO-REDUCED Routine 03/01/2020 RED BLOOD CELLS 6:29 PM CDT TRANSFUSION SERVICE 03/01/2020 REPORT - SCAN 6:00 PM CDT POCT-GLUCOSE METER Routine 03/01/2020 3:24 PM CDT POCT-GLUCOSE METER Routine 03/01/2020 1:31 PM CDT HEMODIALYSIS INPATIENT Routine 03/01/2020 11:00 AM CDT HEMODIALYSIS INPATIENT Routine 03/01/2020 11:00 AM CDT FERRITIN STAT 03/01/2020 10:50 AM CDT IRON, SERUM STAT 03/01/2020 10:50 AM CDT IRON, TIBC, % SAT. STAT 03/01/2020 (WITHOUT FERRITIN) 10:50 AM CDT TYPE AND SCREEN, BERNICE 03/01/2020 AUTOMATED 10:40 AM CDT POCT-GLUCOSE METER Routine 03/01/2020 7:18 AM CDT CBC W/PLT COUNT & AUTO Routine 03/01/2020 DIFFERENTIAL 4:09 AM CDT RETICULOCYTE COUNT STAT 03/01/2020 Add-on 4:09 AM CDT CBC W/PLT COUNT & AUTO Routine 03/01/2020 DIFFERENTIAL 4:09 AM CDT PHOSPHORUS Routine 03/01/2020 4:09 AM CDT MAGNESIUM Routine 03/01/2020 4:09 AM CDT BASIC METABOLIC PANEL (7) Routine 03/01/2020 4:09 AM CDT PREPARE RBC STAT 02/29/2020 11:54 PM CDT POCT-GLUCOSE METER Routine 02/29/2020 8:45 PM CDT TRANSFUSION SERVICE 02/29/2020 REPORT - SCAN 6:00 PM CDT POCT-GLUCOSE METER Routine 02/29/2020 4:52 PM CDT POCT-GLUCOSE METER Routine 02/29/2020 11:34 AM CDT POCT-GLUCOSE METER Routine 02/29/2020 7:53 AM CDT CBC W/PLT COUNT & AUTO Routine 02/29/2020 DIFFERENTIAL 5:03 AM CDT CBC W/PLT COUNT & AUTO Routine 02/29/2020 DIFFERENTIAL 5:03 AM CDT PHOSPHORUS Routine 02/29/2020 5:03 AM CDT MAGNESIUM Routine 02/29/2020 5:03 AM CDT BASIC METABOLIC PANEL (7) Routine 02/29/2020 5:03 AM CDT POCT-GLUCOSE METER Routine 02/28/2020 8:38 PM CDT TRANSFUSION SERVICE 02/28/2020 REPORT - SCAN 6:00 PM CDT POCT-GLUCOSE METER Routine 02/28/2020 5:05 PM CDT POCT-GLUCOSE METER Routine 02/28/2020 1:17 PM CDT POCT-GLUCOSE METER Routine 02/28/2020 10:16 AM CDT TRANSFUSE LEUKO-REDUCED Routine 02/28/2020 RED BLOOD CELLS 9:33 AM CDT HEMODIALYSIS INPATIENT Routine 02/28/2020 8:39 AM CDT CBC W/PLT COUNT & AUTO Routine 02/28/2020 DIFFERENTIAL 4:56 AM CDT PHOSPHORUS Routine 02/28/2020 4:56 AM CDT MAGNESIUM Routine 02/28/2020 4:56 AM CDT BASIC METABOLIC PANEL (7) Routine 02/28/2020 4:56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 06/30/2019 11:54 PM HORSE TRAINER PERIPHERAL VASCULAR 06/30/2019 REPORT - SCAN 9:23 PM HORSE TRAINER HEMOGLOBIN AND HEMATOCRIT Routine 06/30/2019 7:01 PM HORSE TRAINER POCT-GLUCOSE METER Routine 06/30/2019 6:33 PM HORSE TRAINER TRANSFUSION SERVICE 06/30/2019 REPORT - SCAN 6:01 PM HORSE TRAINER HEMODIALYSIS INPATIENT Routine 06/30/2019 1:57 PM HORSE TRAINER POCT-GLUCOSE METER Routine 06/30/2019 12:11 PM HORSE TRAINER HEMOGLOBIN AND HEMATOCRIT Routine 06/30/2019 11:12 AM HORSE TRAINER ECHO W CONTRAST & DOPPLER Routine 06/30/2019 11:06 AM HORSE TRAINER POCT-GLUCOSE METER Routine 06/30/2019 8:39 AM HORSE TRAINER CBC W/PLT COUNT & AUTO Routine 06/30/2019 DIFFERENTIAL 3:46 AM HORSE TRAINER CBC W/PLT COUNT & AUTO Routine 06/30/2019 DIFFERENTIAL 3:46 AM HORSE TRAINER BASIC METABOLIC PANEL (7) Routine 06/30/2019 3:46 AM HORSE TRAINER PHOSPHORUS Routine 06/30/2019 3:46 AM HORSE TRAINER MAGNESIUM Routine 06/30/2019 3:46 AM HORSE TRAINER HEMOGLOBIN AND HEMATOCRIT Routine 06/29/2019 11:54 PM HORSE TRAINER TRANSFUSE LEUKO-REDUCED Routine 06/29/2019 RED BLOOD CELLS 10:11 PM HORSE TRAINER POCT-GLUCOSE METER Routine 06/29/2019 6:37 PM HORSE TRAINER HEMOGLOBIN AND HEMATOCRIT Routine 06/29/2019 6:32 PM HORSE TRAINER TRANSFUSION SERVICE 06/29/2019 REPORT - SCAN 6:[address] BRAIN WITHOUT IV Routine 06/29/2019 CONTRAST 3:30 PM HORSE TRAINER PSEUDOANEURYSM GROIN Routine 06/29/2019 DOPPLER LEFT 11:53 AM HORSE TRAINER POCT-GLUCOSE METER Routine 06/29/2019 11:31 AM HORSE TRAINER HEMOGLOBIN AND HEMATOCRIT Routine 06/29/2019 11:10 AM HORSE TRAINER XR ABDOMEN / KUB 1 VIEW STAT 06/29/2019 9:24 AM HORSE TRAINER POCT-GLUCOSE METER Routine 06/29/2019 7:51 AM HORSE TRAINER BASIC METABOLIC PANEL (7) Routine 06/29/2019 3:37 AM HORSE TRAINER PHOSPHORUS Routine 06/29/2019 3:37 AM HORSE TRAINER MAGNESIUM Routine 06/29/2019 3:37 AM HORSE TRAINER CBC W/PLT COUNT & AUTO Routine 06/29/2019 DIFFERENTIAL 3:36 AM HORSE TRAINER CBC W/PLT COUNT & AUTO Routine 06/29/2019 DIFFERENTIAL 3:36 AM HORSE TRAINER POCT-GLUCOSE METER Routine 06/28/2019 11:49 PM HORSE TRAINER FIBRINOGEN Add-On 06/28/2019 11:28 PM HORSE TRAINER HEMOGLOBIN AND HEMATOCRIT Routine 06/28/2019 11:28 PM HORSE TRAINER APTT Routine 06/28/2019 11:28 PM HORSE TRAINER PROTHROMBIN TIME/INR Routine 06/28/2019 11:28 PM HORSE TRAINER HEMOGLOBIN A1C Routine 06/28/2019 11:28 PM HORSE TRAINER COMPREHENSIVE METABOLIC Routine 06/28/2019 PANEL 11:28 PM HORSE TRAINER PREPARE LEUKO-REDUCED RBC Routine 06/28/2019 9:43 PM HORSE TRAINER CBC W/PLT COUNT & AUTO Routine 06/28/2019 DIFFERENTIAL 8:40 PM HORSE TRAINER TYPE AND SCREEN, Routine 06/28/2019 AUTOMATED 8:40 PM HORSE TRAINER HEMOGLOBIN AND HEMATOCRIT Routine 06/28/2019 8:40 PM HORSE TRAINER CBC W/PLT COUNT & AUTO Routine 06/28/2019 DIFFERENTIAL 8:[address]/CTA CAROTID STAT 06/28/2019 4:44 PM HORSE TRAINER CTA BRAIN STAT 06/28/2019 4:[address] BRAIN/STROKE TEST STAT 06/28/2019 DESIGN 4:27 PM HORSE TRAINER POCT-GLUCOSE METER Routine 06/28/2019 3:35 PM HORSE TRAINER POCT-GLUCOSE METER Routine 06/28/2019 1:42 PM HORSE TRAINER CBC W/PLT COUNT & AUTO Routine 06/28/2019 DIFFERENTIAL 9:54 AM HORSE TRAINER CBC W/PLT COUNT & AUTO Routine 06/28/2019 DIFFERENTIAL 9:54 AM HORSE TRAINER PLATELET AGGREGATION: Routine 06/28/2019 FUNCTION SCREEN 9:50 AM HORSE TRAINER HEMODIALYSIS INPATIENT Routine 06/28/2019 9:16 AM HORSE TRAINER HEPATITIS B SURFACE Routine 06/28/2019 ANTIGEN 9:11 AM HORSE TRAINER POCT-GLUCOSE METER Routine 06/28/2019 7:29 AM HORSE TRAINER CBC W/PLT COUNT & AUTO Routine 06/28/2019 DIFFERENTIAL 4:44 AM HORSE TRAINER PHOSPHORUS Routine 06/28/2019 4:44 AM HORSE TRAINER MAGNESIUM Routine 06/28/2019 4:44 AM HORSE TRAINER BASIC METABOLIC PANEL (7) Routine 06/28/2019 4:44 AM HORSE TRAINER CBC W/PLT COUNT & AUTO Routine 06/28/2019 DIFFERENTIAL 4:44 AM HORSE TRAINER PLATELET AGGREGATION: Routine 06/28/2019 FUNCTION SCREEN 4:43 AM HORSE TRAINER POCT-GLUCOSE METER Routine 06/27/2019 10:48 PM HORSE TRAINER POCT-ACT Routine 06/27/2019 9:04 PM HORSE TRAINER POCT-ACT Routine 06/27/2019 7:39 PM HORSE TRAINER POCT-GLUCOSE METER Routine 06/27/2019 5:41 PM HORSE TRAINER POCT-ACT Routine 06/27/2019 3:48 PM HORSE TRAINER POCT-ACT Routine 06/27/2019 3:10 PM HORSE TRAINER POCT-ACT Routine 06/27/2019 2:38 PM HORSE TRAINER PERIPHERAL ANGIOS & IVUS 06/27/2019 PAD (periphe ral artery 1:26 PM HORSE TRAINER disease) (HCC) Case Notes 3CASE 6TOP POTASSIUM-STAT LAB STAT 06/27/2019 12:22 PM HORSE TRAINER after 04/24/2019 Results * RHYTHM STRIP - SCAN (04/19/2020 11:13 AM CDT) Only the most recent of 8 results within the time period is included. Narrative Performed At This result has an attachment that is n ot available. * EKG-SCANNED (04/19/2020 11:13 AM CDT) Only the most recent of 5 results within the time period is included. Narrative Performed At This result has an attachment that is n ot available. * POC-Glucose meter (04/16/2020 11:59 AM CDT) Only the most recent of 178 results within the time period is included. POC-Glucose 103Comment: : TESTED AT [facility] 70 - 110 mg/dL [facility] Meter [address] [place] [id number]: Account Officer/Rock Loader ID MEDICAL [place] = [id number] for Hank Sarmiento Specimen Blood Performing Organization Address [facility] Ph one [address] [facility] * Vitamin B12 and Folate (04/16/2020 4:15 AM CDT) Vitamin B12 527 213 - 816 pg/mL [facility] Folate 7.60 >=7.00 ng/mL [facility] Specimen Blood Narrative Performed At Account Officer ID - [facility] Performing Organization Address [facility]/Formerly [facility] one [address] [facility] * TSH/Free T4 If Indicated (04/16/2020 4:15 AM CDT) TSH 26.176 (H) 0.350 - 4.940 uIU/mL [facility] Specimen Blood Narrative Performed At Account Officer ID - [facility] Performing Organization Address [facility] Ph one [address] [facility] * Iron, TIBC, % sat. (without ferritin) (04/16/2020 4:15 AM CDT) Only the most recent of 4 results within the time period is included. Iron 29.0 (L) 40.0 - 160.0 ug/dL [facility] TIBC 139 (L) 250 - 450 ug/dL [facility] Iron % 21 20 - 55 % [facility] Specimen Blood Narrative Performed At Account Officer ID - CAR[place]INA F [facility] Performing Organization Address City/State/Zipcode Ph one Number [facility] [address] [place] [address] [facility] * CBC with platelet count + automated diff (04/16/2020 4:15 AM CDT) Only the most recent of 35 results within the time period is included. WBC 4.8 3.5 - 10.5 K/L [facility] RBC 3.22 (L) 3.93 - 5.22 M/L [facility] Hemoglobin 9.4 (L) 11.2 - 15.7 GM/DL [facility] Hematocrit 31.2 (L) 34.1 - 44.9 % [facility] MCV 96.9 (H) 79.4 - 94.8 fL [facility] MCH 29.2 25.6 - 32.2 pg [facility] MCHC 30.1 (L) 32.2 - 35.5 GM/DL [facility] RDW 14.9 (H) 11.7 - 14.4 % [facility] Platelets 195 150 - 450 K/CU MM [facility] MPV 12.5 (H) 9.4 - 12.3 fL [facility] nRBC 0 0 - 0 /100 WBC [facility] % Neutros 62 % [facility] % Lymphs 23 % [facility] % Monos 12 % [facility] % Eos 4 % [facility] % Baso 0 % [facility] # Neutros 2.97 1.56 - 6.13 K/L [facility] # Lymphs 1.09 (L) 1.18 - 3.74 K/L [facility] # Monos 0.56 (H) 0.24 - 0.36 K/L [facility] # Eos 0.17 0.04 - 0.36 K/L [facility] # Baso 0.01 0.01 - 0.08 K/L [facility] Immature 0 0 - 1 % [facility] Specimen Blood Performing Organization Address [facility] one [place] [phone] * T4, free (04/16/2020 4:15 AM CDT) Free T4 0.71 0.70 - 1.48 ng/dL [facility] Specimen Blood Narrative Performed At Account Officer ID - [facility] Performing Organization Address City/[facility] Ph one [place] [address] [phone] [address] * Phosphorus (04/16/2020 4:15 AM CDT) Only the most recent of 21 results within the time period is included. Phosphorus 7.1 (H) 2.3 - 4.7 mg/dL [facility] Specimen Blood Narrative Performed At Account Officer ID [facility] Performing Organization Address City/[facility] one Number [address] [facility] * Magnesium (04/16/2020 4:15 AM CDT) Only the most recent of 18 results within the time period is included. Magnesium 2.1 1.6 - 2.6 mg/dL [facility] Specimen Blood Narrative Performed At Account Officer ID - [facility] Performing Organization Address [facility] Ph one Number [address] [facility] * Hemoglobin A1c (04/16/2020 4:15 AM CDT) Only the most recent of 4 results within the time period is included. Hemoglobin A1C 5.8 4.3 - 6.1 % [facility] Specimen Blood Performing Organization Address [facility] one Number [address] [facility] * Ferritin (04/16/2020 4:15 AM CDT) Only the most recent of 4 results within the time period is included. Ferritin 775.63 (H) 5.00 - 275.00 ng/mL [facility] Specimen Blood Narrative Performed At Account Officer ID - [facility] Performing Organization Address [facility] Ph one Number [address] [facility] * Hepatic function panel (04/16/2020 4:15 AM CDT) Only the most recent of 3 results within the time period is included. Protein, Total 6.9 6.0 - 8.3 gm/dL [facility] Albumin 3.0 (L) 3.5 - 5.0 g/dL [facility] Total Bilirubin 0.3 0.2 - 1.2 mg/dL [facility] Bilirubin, 0.2 0.1 - 0.5 mg/dL [facility] Alkaline 61 40 - 150 U/L [facility] AST 9 5 - 34 U/L [facility] ALT <6 (L) 6 - 55 U/L [facility] Specimen Blood Narrative Performed At Account Officer ID Alfredo Brower [facility] Performing Organization Address [facility] Ph one Number [facility] [address] [place] [address] [facility] * Lipid panel (04/16/2020 4:15 AM CDT) Only the most recent of 2 results within the time period is included. Triglycerides 130 mg/dL [facility] Cholesterol 179 mg/dL [facility] HDL 33 mg/dL [facility] LDL Calculated 120 mg/dL [facility] Specimen Blood Narrative Performed At Triglyceride Reference Range: [facility] Low Risk <150 [facility] Borderline 150-199 High Risk 200-499 Very High Risk >=500 Cholesterol Reference Range: Low Risk <200 Borderline 200-239 High Risk >240 HDL Cholesterol Reference Range: Low Risk >=60 High Risk <40 LDL Cholesterol Reference Range: Optimal <100 Near Optimal 100-129 Borderline 130-159 High 160-189 Very High >=190 Account Officer SHERMAN Brower Performing Organization Address [facility] Ph one Number [facility] [address] [place] [address] [facility] * Basic metabolic panel (04/16/2020 4:15 AM CDT) Only the most recent of 39 results within the time period is included. Sodium 136 136 - 145 meq/L [facility] Potassium 5.2 (H) 3.5 - 5.1 meq/L [facility] Chloride 96 (L) 98 - 107 meq/L [facility] CO2 26 22 - 29 meq/L [facility] BUN 53 (H) 7 - 21 mg/dL [facility] Creatinine 7.47 (H) 0.57 - 1.25 mg/dL [facility] Glucose 111 (H) 70 - 105 mg/dL [facility] Calcium 7.4 (L) 8.4 - 10.2 mg/dL [facility] EGFR 6Comment: ESTIMATED GFR IS NOT mL/min/1.[address] [facility] ACCURATE CREATININE [facility] CLEARANCE IN PREDICTING [facility] GLOMERULAR FILTRATION RATE. ESTIMATED GFR IS NOT APPLICABLE FOR DIALYSIS PATIENTS. Specimen Blood Narrative Performed At Account Officer ID - BIMAL Leonarda [facility] Performing Organization Address [facility] one [place] [address] [facility] * Troponin I (04/15/2020 4:16 AM CDT) Only the most recent of 6 results within the time period is included. Troponin I 0.15 (H) 0.00 - 0.03 ng/mL [facility] Specimen Blood Narrative Performed At Troponin I (TnI) levels must be interpreted in the co ntext of the presenting [facility] symptoms and the clinical findings. Elevated TnI leve ls indicate myocardial [facility] damage, but are not specific for ischem ic heart disease. Elevated TnI levels are seen in patients with other cardiac con ditions (including myocarditis and congestive heart failure), and slight T nI elevations occur in patients with other conditions, including sepsis, cesia al failure, acidosis, acute neurological disease, and persistent tachyarrhythmia . Account Officer ID - SIDASI Performing Organization Address [facility] one [place] [address] [facility] * Hepatitis B surface antigen (04/14/2020 8:15 PM CDT) Only the most recent of 6 results within the time period is included. HBsAg Screen Nonreactive Nonreactive [facility] Specimen Blood Narrative Performed At Specimen is considered negative for HBsAg. [facility] Performing Organization Address City/State/Zipcode Ph one Number [facility] [address] [place], [place] [address] [facility]ENTER * SARS-CoV2/RT-PCR (Asymptomatic ONLY) (04/14/2020 6:29 PM CDT) Only the most recent of 2 results within the time period is included. SARS-COV2/RT-PC Negative Not Detected, [facility] R Negative, See [facility] external report for [facility] linked test SARS-COV-2 [facility] RORO [facility] PERFORMING LAB [facility] Specimen Other - Nasopharyngeal wall structure (body structure) Narrative Performed At Negative result for this test determine s that SARS-CoV-2 RNA was not present in [facility] the specimen above the Limit of Detecti on (LOD). However, Negative results do [facility] not preclude SARS-CoV-2 infection and s hould not be used as the sole basis for treatment or patient management dectracey ns. Negative results must be combined with clinical observations, patient his tory, and epidemiological information. A false negative result may occur if a sp ecimen is improperly collected, transported or handled. A false negat jinny result should be considered if patient's recent exposures or clinical presentation indicate that COVID-19 (SARS-CoV-2) is likely and diagnostic t ests for other causes of illness are negative. Re-testing should be consid ered in cases of suspected false negatives. The limit of detection for this assay i s 800 copies/mL. This SARS CoV-2 test is a real-time RT- PCR test intended for the qualitative detection of nucleic acid from SARS-CoV -2 in a nasopharyngeal swab specimen collected from individuals suspected of COVID-19 by their healthcare provider. This test has not been Food and Drug Ad ministration (FDA) cleared or approved. This is a modified version of an appr cris Emergency Use Authorization (EUA) and is in the process of review by the FDA. Once authorized by the FDA, the issued EUA will be effective until the declaration that circumstances exist justifying the authorization of the sandra rgency use of in vitro diagnostic tests for detection and/or diagnosis of COVID -19 is terminated under Section 564(b)(2) of the Act or the EUA is revoked under Section 564(g) of the Act. Fact Sheet for Healthcare Providers: https://www.[employer]/sites/default/files/product/documents/Fact_Sheet_HC_Provi jorl_Dshj_PGAV-AzG-1.pdf Fact Sheet for Healthcare Patients: https://www.[employer]/sites/default/files/product/documents/Fact_Sheet_Patients _Bvof_NSAL-AjR-5.pdf Performing Laboratory: [address] [place] [address] Performing Organization Address [facility] Ph one Number [place] [address] [phone] * Potassium (04/14/2020 4:25 PM CDT) Only the most recent of 2 results within the time period is included. Potassium 6.5 (HH)Comment: Specimen 3.5 - 5.1 meq/L [facility] slightly hemolyzed [facility] Specimen Blood Narrative Performed At Account Officer ID - BS [facility] Performing Organization Address [facility] Ph one [place] [address] [phone] [place] [address] * XR chest 1 view portable / bedside (04/14/2020 4:05 PM CDT) Only the most recent of 3 results within the time period is included. Specimen Narrative Performed At FINAL REPORT [facility] History: Status post fall Comparison: Chest radiograph of 09/05/19 20 Findings: Vague asymmetric increase in opacity in the left hemithorax is probably just due to overlying soft tissues. Asymmetric edema cannot be excluded. The right lung is c lear. No pleural effusions or pneumothorax are identified. The cardiac shadow is mildly enlarged. Thoracic aorta is tortuous and calcified. There are degenerative changes in the s pine. Numerous tiny metallic densities overly ing the right shoulder/axillary region are presumably artifact, and were not present on the prior study. IMPRESSION: No definite evidence of acu te cardiopulmonary disease. Vague asymmetric increased opacity in t he left hemithorax is suspected to be due to overlying soft t issues rather than a true abnormality. Signed: Isadora Hernandez MD Report Verified Date/Time: 04/14/2020 16:45:57 Reading Location: [facility] Radiology Readin g Room Procedure Note Interface, External Ris In - 04/14/2020 4:48 PM CDT FINAL REPORT History: Status post fall Comparison: Chest radiograph of 09/05/2019 Findings: Vague asymmetric increase in opacity in the left hemithorax is probably just due to overlying soft tissues. Asymmetric edema cannot be excluded. The right lung is clear. No pleural effusions or pneumothorax are identified. The cardiac shadow is mildly enlarged. Thoracic aorta is tortuous and calcified. There are degenerative changes in the spine. Numerous tiny metallic densities overlying the right shoulder/axillary region are presumably artifact, and were not present on the prior study. IMPRESSION: No definite evidence of acute cardiopulmonary disease. Vague asymmetric increased opacity in the left hemithorax is suspected to be due to overlying soft tissues rather than a true abnormality. Signed: Isadora Hernandez MD Report Verified Date/Time: 04/14/2020 16:45:57 Reading Location: [facility] Radiology Reading Room Performing Organization Address City/State/Zipcode Ph one Number [facility] * XR ankle 3 views left (04/14/2020 4:05 PM CDT) Specimen Narrative Performed At FINAL REPORT [facility] LEFT ANKLE 3 VIEWS HISTORY: Left ankle pain status post fa ll COMPARISON: No comparison left ankle im aging FINDINGS: AP, mortise, and lateral views the left ankle were performed. No fracture or dislocation are visualiz ed. 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 There is a benign-appearing calcificati on in the posterior medial aspect of the distal leg. There is osteophyte is of the tibiotala r articulation. Arterial calcifications are present. IMPRESSION: No fracture or dislocation are visualized in the left ankle. Signed: Iasdora Hernandez MD Report Verified Date/Time: 04/14/2020 16:35:15 Reading Location: [facility] Radiology Readin g Room Procedure Note Interface, External Ris In - 04/14/2020 4:37 PM CDT FINAL REPORT LEFT ANKLE 3 VIEWS HISTORY: Left ankle pain status post fall COMPARISON: No comparison left ankle imaging FINDINGS: AP, mortise, and lateral views the left ankle were performed. No fracture or dislocation are visualized. 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 There is a benign-appearing calcification in the posterior medial aspect of the distal leg. There is osteophyte is of the tibiotalar articulation. Arterial calcifications are present. IMPRESSION: No fracture or dislocation are visualized in the left ankle. Signed: Isadora Hernandez MD Report Verified Date/Time: 04/14/2020 16:35:15 Reading Location: [facility] Radiology Reading Room Performing Organization Address City/State/Zipcode Ph one Number [facility] * XR knee complete 4 views left (04/14/2020 4:05 PM CDT) Specimen Narrative Performed At FINAL REPORT [facility] InterviewBest LEFT KNEE 2 VIEWS HISTORY: Left knee pain COMPARISON: Left femur radiographs of FINDINGS: AP and lateral images of the right knee were obtained. There is a fracture in the posterior an d medial aspects of the distal femoral diametaphysis, just medial and posterior to the distal aspect of the intramedullary carley, just distal to the distal interlocking screw. There is minimal medial displacement of the distal fracture fragment. No extension to the knee joint is appre ciated on these radiographs. A right knee total arthroplasty is pres ent. A joint effusion is present in the righ t knee. IMPRESSION: Fracture in the distal femo ral diametaphysis at the craniocaudal level of the distal aspect of the intramedullary carley. Signed: Isadora Hernandez MD Report Verified Date/Time: 04/14/2020 16:39:33 Reading Location: [facility] Radiology Readin g Room Procedure Note Interface, External Ris In - 04/14/2020 4:41 PM CDT FINAL REPORT LEFT KNEE 2 VIEWS HISTORY: Left knee pain COMPARISON: Left femur radiographs of 02/25/2020 FINDINGS: AP and lateral images of the right knee were obtained. There is a fracture in the posterior and medial aspects of the distal femoral diametaphysis, just medial and posterior to the distal aspect of the intramedullary carley, just distal to the distal interlocking screw. There is minimal medial displacement of the distal fracture fragment. No extension to the knee joint is appreciated on these radiographs. A right knee total arthroplasty is present. A joint effusion is present in the right knee. IMPRESSION: Fracture in the distal femoral diametaphysis at the craniocaudal level of the distal aspect of the intramedullary carley. Signed: Isadora Hernandez MD Report Verified Date/Time: 04/14/2020 16:39:33 Reading Location: [facility] Radiology Reading Room Performing Organization Address City/State/Zipcode Ph one Number GE RIS * XR femur left AP and lateral (04/14/2020 4:05 PM CDT) Only the most recent of 2 results within the time period is included. Specimen Narrative Performed At FINAL REPORT GE InterviewBest LEFT FEMUR 2 VIEWS HISTORY: Left thigh pain status post fa ll COMPARISON: Left femur radiographs of FINDINGS: AP and lateral radiograph of the left f emur were obtained. The patient is status post nail and dis anmol interlocking screw internal fixation of a fracture in the proximal left femoral shaft. This fracture is in near anatomic align ment. There is a new fracture in the peripros thetic bone adjacent to the distal aspect of the intramedullary carley , just distal to the level of the distal interlocking screw. This jean-pierre ears to involve the medial and posterior aspects of the distal femoral diametaphysis. There is mild medial displacement of the distal fract ure fragment. No additional fractures are visualized in the left femur. There are diffuse arterial calcificatio ns. There is soft tissue swelling in the di stal thigh. A left knee total arthroplasty is present. IMPRESSION: 1. Periprosthetic fracture adjacent to the distal aspect of the intramedullary carley, at the level of the distal femoral diametaphysis. Signed: Isadora Hernandez MD Report Verified Date/Time: 04/14/2020 16:41:36 Reading Location: [facility] Radiology Readin g Room Procedure Note Interface, External Ris In - 04/14/2020 4:43 PM CDT FINAL REPORT LEFT FEMUR 2 VIEWS HISTORY: Left thigh pain status post fall COMPARISON: Left femur radiographs of 02/25/2020 FINDINGS: AP and lateral radiograph of the left femur were obtained. The patient is status post nail and distal interlocking screw internal fixation of a fracture in the proximal left femoral shaft. This fracture is in near anatomic alignment. There is a new fracture in the periprosthetic bone adjacent to the distal aspect of the intramedullary carley, just distal to the level of the distal interlocking screw. This appears to involve the medial and posterior aspects of the distal femoral diametaphysis. There is mild medial displacement of the distal fracture fragment. No additional fractures are visualized in the left femur. There are diffuse arterial calcifications. There is soft tissue swelling in the distal thigh. A left knee total arthroplasty is present. IMPRESSION: 1. Periprosthetic fracture adjacent to t he distal aspect of the intramedullary carley, at the level of the distal femoral diametaphysis. Signed: Isadora Hernandez MD Report Verified Date/Time: 04/14/2020 16:41:36 Reading Location: [facility] Radiology Reading Room Performing Organization Address City/State/Zipcode Ph one Number GE RIS * XR pelvis 1 or 2 views (04/14/2020 4:05 PM CDT) Only the most recent of 2 results within the time period is included. Specimen Narrative Performed At FINAL REPORT GE RIS AP PELVIS HISTORY: Status post fall with pelvic p ain COMPARISON: Pelvic radiograph from 02/24 FINDINGS: No acute pelvic fracture is visualized. The patient is status post interval jennyfer l and distal interlocking screw internal fixation of the previous ly visualized left proximal femoral fracture. The fracture is incom pletely imaged. 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 There are diffuse arterial calcificatio ns. IMPRESSION: No fracture is visualized i n the pelvis. Signed: Isadora Hernandez MD Report Verified Date/Time: 04/14/2020 16:42:53 Reading Location: [facility] Radiology Readin g Room Procedure Note Interface, External Ris In - 04/14/2020 4:45 PM CDT FINAL REPORT AP PELVIS HISTORY: Status post fall with pelvic pain COMPARISON: Pelvic radiograph from 02/25/2020 FINDINGS: No acute pelvic fracture is visualized. The patient is status post interval nail and distal interlocking screw internal fixation of the previously visualized left proximal femoral fracture. The fracture is incompletely imaged. 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 There are diffuse arterial calcifications. IMPRESSION: No fracture is visualized in the pelvis. Signed: Isadora Hernandez MD Report Verified Date/Time: 04/14/2020 16:42:53 Reading Location: [facility] Radiology Reading Room Performing Organization Address City/State/[facility] Ph one Number GE RIS * XR spine thoracic 2 views (04/14/2020 4:05 PM CDT) Specimen Narrative Performed At FINAL REPORT GE RIS THORACIC SPINE 2 VIEWS HISTORY: Status post fall COMPARISON: Chest 2 view from 01/31/2015 ; a dedicated comparison thoracic spine imaging is available FINDINGS: AP and lateral radiographs of the thora cic spine were obtained. The lateral radiographs were limited du e to artifact related to the patient's bed and/or trauma board. No definite thoracic spine fracture. There are degenerative and hypertrophic changes in the spine. IMPRESSION: 1. No definite thoracic spine fracture. Signed: Isadora Hernandez MD Report Verified Date/Time: 04/14/2020 16:49:24 Reading Location: [facility] Radiology Readin g Room Procedure Note Interface, External Ris In - 04/14/2020 4:51 PM CDT FINAL REPORT THORACIC SPINE 2 VIEWS HISTORY: Status post fall COMPARISON: Chest 2 view from 01/31/2015; a dedicated comparison thoracic spine imaging is available FINDINGS: AP and lateral radiographs of the thoracic spine were obtained. The lateral radiographs were limited due to artifact related to the patient's bed and/or trauma board. No definite thoracic spine fracture. There are degenerative and hypertrophic changes in the spine. IMPRESSION: 1. No definite thoracic spine fracture. Signed: Isadora Hernandez MD Report Verified Date/Time: 04/14/2020 16:49:24 Reading Location: [facility] Radiology Reading Room Performing Organization Address [facility] Ph one Number GE RIS * ECG 12 lead (04/14/2020 3:02 PM CDT) Only the most recent of 6 results within the time period is included. Specimen Narrative Performed At Ventricular Rate 69 BPM GE MUSE Atrial Rate 69 BPM P-R Interval 222 ms QRS Duration 88 ms Q-T Interval 436 ms QTC Calculation(Bazett) 467 ms P [place] 56 degrees R [place] -23 degrees T [place] 70 degrees Sinus rhythm with 1st degree A-V block Within normal limits Confirmed by MD Winston Roberto ([id number]) on 04/15/2020 9:13:47 AM Procedure Note Interface, External Ris In - 04/15/2020 9:13 AM CDT Ventricular Rate 69 BPM Atrial Rate 69 BPM P-R Interval 222 ms QRS Duration 88 ms Q-T Interval 436 ms QTC Calculation(Bazett) 467 ms P [place] 56 degrees R [place] -23 degrees T [place] 70 degrees Sinus rhythm with 1st degree A-V block Within normal limits Confirmed by MD Winston Roberto ([id number]) on 04/15/2020 9:13:47 AM Performing Organization Address [facility] one Number GE MUSE * PT/aPTT (04/14/2020 2:53 PM CDT) Only the most recent of 4 results within the time period is included. Protime 14.9 (H) 11.9 - 14.2 seconds [facility] INR 1.20 <=5.90 [facility] PTT 30.7 22.5 - 36.0 seconds [facility] Specimen Blood Narrative Performed At Effective 12/11/2018: PT Reference Range Change [facility] New: 11.9-14.2 Previous: 11.7-14.7 [facility] TER RECOMMENDED COUMADIN/WARFARIN INR THERA PY RANGES STANDARD DOSE: 2.0-3.0 Includes: PROP HYLAXIS for venous thrombosis, systemic embolization; TREATMENT for venous thro mbosis and/or pulmonary embolus. HIGH RISK: Target INR is 2.5-3.5 for pa tients wiht mechanical heart valves. Performing Organization Address [facility] one [place] [address] [phone] [place] [address] * B-type Natriuretic Factor (BNP) (04/14/2020 2:53 PM CDT) Only the most recent of 2 results within the time period is included. BNP 347 (H) 0 - 100 pg/mL [facility] Specimen Blood Narrative Performed At Account Officer ID - BS [facility] Performing Organization Address [facility] one [place] [address] [address] [phone] [place] [address] * Cardiac Enzymes - CPK (04/14/2020 2:53 PM CDT) Only the most recent of 2 results within the time period is included. Total CK 52 29 - 200 U/L [facility] Specimen Blood Narrative Performed At Account Officer ID - BS [facility] Performing Organization Address [facility] one [place] [address] [address] [phone] [address] * TRANSFUSION SERVICE REPORT - SCAN (03/03/2020 6:01 PM CDT) Only the most recent of 14 results within the time period is included. Narrative Performed At This result has an attachment that is n ot available. * Prepare Leuko-Red RBC (03/02/2020 11:54 PM CDT) Only the most recent of 5 results within the time period is included. CROSSMATCH COMPATIBLE SAFETRACE TX Unit ABO B Neg SAFETRACE TX UNIT NUMBER [id number] SAFETRACE TX Status TX_TIMEINCHART SAFETRACE TX Blood Bank RED BLOOD CELLS SAFETRACE TX Product PRODUCT CODE [id number] SAFETRACE TX Specimen Other Performing Organization Address [facility] one Number SAFETRACE TX * Transfuse Leuko-Red RBC (03/01/2020 6:29 PM CDT) Only the most recent of 5 results within the time period is included. * Iron, serum (03/01/2020 10:50 AM CDT) Iron 22.0 (L) 40.0 - 160.0 ug/dL [facility] Specimen Blood Performing Organization Address [facility] one Number [address] [facility] * Type and screen, automated (03/01/2020 10:40 AM CDT) Only the most recent of 6 results within the time period is included. ABO/RH B POSITIVE [facility] ([facility] Ab Scrn NEGATIVE [facility] Specimen Blood Performing Organization Address [facility] one Number [address] [address] [facility] * Reticulocyte count (03/01/2020 4:09 AM CDT) % Retic 2.6 (H) 0.5 - 1.7 % [facility] Specimen Blood Narrative Performed At Account Officer ID - [id number] [facility] Performing Organization Address [facility] one Number [address] [facility] * Prepare RBC (02/29/2020 11:54 PM CDT) CROSSMATCH COMPATIBLE SAFETRACE TX Unit ABO B Pos SAFETRACE TX UNIT NUMBER [id number] SAFETRACE TX Status TX_TIMEINCHART SAFETRACE TX Blood Bank RED BLOOD CELLS SAFETRACE TX Product PRODUCT CODE [id number] SAFETRACE TX CROSSMATCH COMPATIBLE SAFETRACE TX Unit ABO B Pos SAFETRACE TX UNIT NUMBER [id number] SAFETRACE TX Status TX_TIMEINCHART SAFETRACE TX Blood Bank RED BLOOD CELLS SAFETRACE TX Product PRODUCT CODE [id number] SAFETRACE TX Performing Organization Address [facility] one Number SAFETRACE TX * FL fluoro non-specific up to 1 hour (02/26/2020 5:15 PM CDT) Specimen Narrative Performed At Fluoroscopic unit utilized for a procedure performed in the OR. No GE RIS interpretation was requested. Refer t o the operative report for findings. Refer to PACS for patient radiation d ose information. Procedure Note Interface, External Ris In - 02/26/2020 5:35 PM CDT Fluoroscopic unit utilized for a procedure performed in the OR. No interpretation was requested. Refer to the operative report for findings. Refer to PACS for patient radiation dose information. Performing Organization Address [facility] one Number GE RIS * HEMODIALYSIS INPATIENT (02/26/2020 2:14 AM CDT) Narrative Performed At Kathia Blankenship RN 02/26/2020 2:14 AM Lab Results Component Value Date HEPBSAG Nonreactive 02/25/2020 ] Lab Results Component Value Date GLUCOSE 160 (H) 02/25/2020 CALCIUM 8.1 (L) 02/25/2020 NA 132 (L) 02/25/2020 K 6.7 (HH) 02/25/2020 CO2 22 02/25/2020 CL 99 02/25/2020 BUN 110 (H) 02/25/2020 CREATININE 9.33 (H) 02/25/2020 Lab Results Component Value Date WBC 6.8 02/25/2020 HGB 10.9 (L) 02/25/2020 HCT 34.7 (L) 02/25/2020 MCV 89.6 02/25/2020 PLT 179 02/25/2020 HD treatment completed for 3.5 hours vi a left AVF. Net UF of 2 L. Patient bradycardic initially but went up to 70's few minutes after HD initiation. Well tolerated the treatment. Endorsed to nurse accordingly. * PT/INR (02/25/2020 5:24 PM CDT) Only the most recent of 2 results within the time period is included. Protime 11.6 9.8 - 12.0 sec [facility], [facility] INR 1.08 <=5.90 [facility] [place], [facility] Specimen Blood Narrative Performed At RECOMMENDED COUMADIN/WARFARIN INR THERAPY RANGES [facility] STANDARD DOSE: 2.0 - 3.0 Includes: PROPHYLAXIS for venous thrombosis, [facility] MEDICAL systemic embolization; TREATMENT for ve nous thrombosis and/or pulmonary embolus. [facility] HIGH RISK: Target INR is 2.5-3.5 for patients with me chanical heart valves. [facility]ER[facility]Y C[facility], [facility] Performing Organization Address City/State/Zipcode Ph one Number [facility] [address] [place] [address] [facility], [facility] * PIV Insertion (02/25/2020 4:23 PM CDT) Narrative Performed At Saad Baker MD 02/25/2020 6:55 PM PIV Insertion Date/Time: 02/25/2020 6:45 PM Performed by: Saad Baker MD Authorized by: Saad Baker MD Preparation: Patient was prepped and dr armani in the usual sterile fashion. Indication: fluid administration, IV me dication, poor peripheral access, vascular access, difficult access and u nstable patient. Location: left external jugular. Needle gauge: 20 Seldinger technique: Seldinger techniqu e used Number of attempts: 1 Post-procedure: line sutured Post-procedure CMS: normal Patient tolerance: Patient tolerated th e procedure well with no immediate complications * ECG/EKG Interpretation (02/25/2020 4:23 PM CDT) Only the most recent of 2 results within the time period is included. Narrative Performed At Saad Baker MD 02/25/2020 6:55 PM ECG/EKG Interpretation Date/Time: 02/25/2020 4:17 PM Performed by: Saad Baker MD Authorized by: Saad Baker MD The ECG was interpreted by ED physician . The ECG is interpreted as sinus bradycardia. Heart rate is 40 BPM. ECG reviewed and does not meet STEMI cr iteria. Patient tolerance: Patient tolerated the procedure well with no im mediate complications Comments: NO ACUTE ISCHEMIC CHANGES; SI NUS BRADYCARDIA * CRITICAL CARE (02/25/2020 4:23 PM CDT) Narrative Performed At Saad Baker MD 02/25/2020 6:55 PM Critical Care Performed by: Saad Baker MD Authorized by: Saad Baker MD Total critical care time: 40 minutes Critical care time was exclusive of sep arately billable procedures and treating other patients. Critical care was necessary to treat or prevent imminent or life-threatening deterioration of the f ollowing conditions: metabolic crisis. Critical care was time spent personally by me on the following activities: blood draw for specimens, discussions w ith consultants, evaluation of patient's response to treatment, examin ation of patient, obtaining history from patient or surrogate, ordering and performing treatments and interventions, ordering and review of l aboratory studies, ordering and review of radiographic studies, pulse o ximetry, development of treatment plan with patient or surrogate and re-e valuation of patient's condition. Comments: I provided medically necessary Critical Care on an emergent basis in order to prevent any sudden, clinically signi ficant deterioration in her condition. It is my opinion that her clinical pres entation, without appropriate emergent intervention has the potential to acutely impair one or more of her vital organ systems with a high pro bability of imminent deterioration in her condition. The time involved in the performance of separately reportable procedures or teaching time was not counted toward s the critical care time that is documented here. * Vancomycin level, random (10/24/2019 5:51 PM CDT) Only the most recent of 2 results within the time period is included. Vancomycin Rm 21.8 ug/mL [facility] Specimen Blood Narrative Performed At Reference Range: No Normals [facility] Account Officer ID - ROSIANG [facility] Performing Organization Address City/State/Zipcode Ph one Number [facility] [address] [place], [place] [address] MEDICAL CENTER * Tissue Exam (10/24/2019 11:36 AM CDT) Only the most recent of 2 results within the time period is included. Case Report Surgical Pathology Report [facility] Ole [facility] Case: [id number] [facility] Authorizing Provider: Goyo Haji, Collected: 10/24/2019 11:36 AM Ordering Location: [facility] PERIOPERATIVE Received: 10/24/2019 01:44 PM SERVICES Pathologist: Yumiko Brito MD Specimen: Soft Tissue, Other, Transmetatarsal right foot DIAGNOSIS RIGHT FOOT, TRANSMETATARSAL [facility] E lectronically AMPUTATION: [facility] signed by Alisha, - [facility] MD Yumiko on AMPUTATION 10/29/2019 at 4:40 - GANGRENE NECROSIS WITH PM UNDERLYING ACUTE OSTEOMYELITIS (SEE COMMENT) - SOFT TISSUE RESECTION MARGIN WITH NECROSIS AND ACUTE INFLAMMATION Signing Pathologist Direct Phone Line: [phone] COMMENT Due to the fragmented nature [facility] Ole SPEAR of the specimen, the bone [facility] resection margins cannot be [facility] appropriately evaluated. However, no definitive acute osteomyelitis are seen on the possible submitted bone resection margins. Remodeling and reactive changes are seen at the possible bone resection margins. Clinical/radiological correlation is recommended. CPT Code(s) 32993, [address] [facility] CLINICAL Right foot gangrene, [facility] HISTORY dehiscence of operative wound, [facility] initial encounter [facility] SPECIMEN SOURCE Transmetatarsal right foot [facility] GROSS Received fresh labeled with YADIEL QAUN DESCRIPTION the patient's name, accession [facility] number and "soft tissue, [facility] other" is an unoriented transmetatarsal amputation (11.5 x 5 x 1.4 cm) to include four transected bones ranging 2-3.3 cm in length. Also received in the same container is a 3 x 1.2 cm transected bone segment and a separate shay-awan, dusky soft tissue measuring 2.7 x 2.5 x 1 cm. No toes are present. The transmetatarsal amputation is partially surfaced by an ovoid, awan, hyperkeratotic, green-black gangrenous skin which displays an 8 x 4 x 0.2 cm blackened ulcer. The ulcer is 0.6 cm from the closest skin/soft tissue margin and 3 cm from the closest bone margin (presumed hallux). The underlying soft tissue is dusky, awan-yellow with focal areas of exudate. The underlying bone is shay-yellow and trabeculated and devoid of lesions. [employer] sections are submitted. Section code: A1, separate segment of bone margin, en face and outside industrial sales representative of separate soft tissue fragment; A2, ulcerative closest skin/soft tissue margin (blue) and outside industrial sales representative of closest bone (presumed hallux), following decalcification; A3, two smaller bone segment margins on transmetatarsal amputation, en face, following decalcification;A4, larger two bone segment margins from transmetatarsal amputation, en face, following decalcification. CG/pl MICROSCOPIC Performed. [facility] [place] Specimen Tissue - Soft tissue (navigational concept) Performing Organization Address City/State/Zipcode Ph one Number [place] [phone] [place] [id number] MEDICAL CENTER * HEMODIALYSIS INPATIENT (09/18/2019 3:25 PM HORSE TRAINER) Narrative Performed At Antonina Fernandez RN 09/18/2019 6:5 3 PM Completed 4 hours of Hd via left upper arm AVF, with net fluid removed of 1.4 liters. UF goal of 2 lit ers not met due to hypotension during treatment. Bp at end of treatment was 128/72. Report given to Primary RN. Lab Results Component Value Date WBC 5.9 09/16/2019 HGB 9.4 (L) 09/16/2019 HCT 30.7 (L) 09/16/2019 MCV 94.5 09/16/2019 PLT 175 09/16/2019 Lab Results Component Value Date GLUCOSE 133 (H) 09/16/2019 CALCIUM 9.5 09/16/2019 NA 137 09/16/2019 K 4.8 09/16/2019 CO2 29 09/16/2019 CL 102 09/16/2019 BUN 35 (H) 09/16/2019 CREATININE 8.06 (H) 09/16/2019 Results for ZEYAD BLANCA OMAR (MR N [id number]) as of 09/18/2019 15:25 Ref. Range 09/13/2019 04:47 Hepatitis B Surface Ag Latest Ref Range : Nonreactive Nonreactive * Hemoglobin and hematocrit (09/13/2019 3:08 PM HORSE TRAINER) Only the most recent of 11 results within the time period is included. Hemoglobin 8.5 (L) 11.2 - 15.7 GM/DL [facility] Hematocrit 28.3 (L) 34.1 - 44.9 % [facility] Specimen Blood Narrative Performed At Account Officer ID - [id number] [facility] Performing Organization Address City/State/Zipcode Ph one Number [facility] [address] [place] [address] MEDICAL [facility] * HEMODIALYSIS INPATIENT (09/09/2019 12:23 PM HORSE TRAINER) Narrative Performed At Tootie Guerrero RN 09/09/2019 12:25 PM Lab Results Component Value Date GLUCOSE 150 (H) 09/07/2019 CALCIUM 8.9 09/07/2019 NA 132 (L) 09/07/2019 K 3.7 09/07/2019 CO2 26 09/07/2019 CL 98 09/07/2019 BUN 24 (H) 09/07/2019 CREATININE 5.45 (H) 09/07/2019 Lab Results Component Value Date WBC 5.9 09/07/2019 HGB 8.7 (L) 09/07/2019 HCT 28.9 (L) 09/07/2019 MCV 95.4 (H) 09/07/2019 PLT 173 09/07/2019 Results for BLANCA HORN (MR N [id number]) as of 09/09/2019 09:39 Ref. Range 08/14/2019 20:43 Hepatitis B Surface Ag Latest Ref Range : Nonreactive Nonreactive HD X 3 hours 10 minutes completes- connor tment ended early per Dr Burton order. Patient confused durin g treatment, worsening as treatment progressed. Net UF -1.8L. Hypertensive. PO Adalat ER given at end of treatment. Sitter wit h patient throughout treatment. Patient refused to eat during treatment . Incontinent stool during HD. Tootie Guerrero RN * CT brain without IV contrast (09/05/2019 5:42 PM HORSE TRAINER) Only the most recent of 3 results within the time period is included. Specimen Narrative Performed At FINAL REPORT [facility] CT, BRAIN, WITHOUT CONTRAST INDICATION: ams fall TECHNIQUE: Noncontrast axial imaging wa s obtained from the vertex to the skull base. Axial images were recon structed using a bone algorithm. DOSE REDUCTION: Dose modulation, iterat jinny reconstruction, and/or weight-based adjustment of the mA/kV wa s utilized to reduce the radiation dose to as low as reasonably achievable. COMPARISON: CT 07/03/2019 FINDINGS: Intracranial: Generalized cerebral atro phy with ex vacuo dilatation of the ventricular system proportionate to sulci. No intracranial hemorrhage or abnormal extra-axial reinaldo ection. No evidence of acute territorial infarct. No mass effect. No hydrocephalus. Osseous structures: No fracture. Scalp hematoma overlying the left zygomatic arch. Paranasal sinuses and mastoid air cells : No evidence of sinusitis. Mastoids are clear. Orbital contents: Globes are intact. IMPRESSION: Scalp hematoma overlying the left zygom atic arch. No underlying fracture or acute intracranial hemorrha ge. If there is persistent clinical concern for intracranial pathology, MR examination is recommended for furth er characterization. Signed: Idalmis Louis MD Report Verified Date/Time: 09/05/2019 18:01:01 Procedure Note Interface, External Ris In - 09/05/2019 6:03 PM HORSE TRAINER FINAL REPORT CT, BRAIN, WITHOUT CONTRAST INDICATION: ams fall TECHNIQUE: Noncontrast axial imaging was obtained from the vertex to the skull base. Axial images were reconstructed using a bone algorithm. DOSE REDUCTION: Dose modulation, iterative reconstruction, and/or weight-based adjustment of the mA/kV was utilized to reduce the radiation dose to as low as reasonably achievable. COMPARISON: CT 07/03/2019 FINDINGS: Intracranial: Generalized cerebral atrophy with ex vacuo dilatation of the ventricular system proportionate to sulci. No intracranial hemorrhage or abnormal extra-axial collection. No evidence of acute territorial infarct. No mass effect. No hydrocephalus. Osseous structures: No fracture. Scalp hematoma overlying the left zygomatic arch. Paranasal sinuses and mastoid air cells: No evidence of sinusitis. Mastoids are clear. Orbital contents: Globes are intact. IMPRESSION: Scalp hematoma overlying the left zygomatic arch. No underlying fracture or acute intracranial hemorrhage. If there is persistent clinical concern for intracranial pathology, MR examination is recommended for further characterization. Signed: Idalmis Louis MD Report Verified Date/Time: 09/05/2019 18:01:01 Performing Organization Address [facility]/Formerly [facility] one Number GE RIS * XR chest PA or AP 1 view in dept (09/05/2019 5:27 PM HORSE TRAINER) Specimen Narrative Performed At FINAL REPORT [facility] Chest, one view. HISTORY: chest pain COMPARISON: Radiograph from 08/14/2019 IMPRESSION: There are bilateral diffuse alveolar op acities which are most likely due to pulmonary edema. Infection is po ssible but considered less likely. Trace left pleural effusion. No pneumothorax. The cardiac silhouette is normal in size. No acute bony abnormality. Signed: Lorenza Quinteros MD Report Verified Date/Time: 09/05/2019 18:02:16 Reading Location: [address] Consult Reading Room Procedure Note Interface, External Ris In - 09/05/2019 6:04 PM HORSE TRAINER FINAL REPORT Chest, one view. HISTORY: chest pain COMPARISON: Radiograph from 08/14/2019 IMPRESSION: There are bilateral diffuse alveolar opacities which are most likely due to pulmonary edema. Infection is possible but considered less likely. Trace left pleural effusion. No pneumothorax. The cardiac silhouette is normal in size. No acute bony abnormality. Signed: Lorenza Quinteros MD Report Verified Date/Time: 09/05/2019 18:02:16 Reading Location: [address] Consult Reading Room Performing Organization Address [facility] one Number GE RIS * CRITICAL CARE (09/05/2019 5:05 PM HORSE TRAINER) Narrative Performed At Rhona Silver MD 10:41 PM Critical Care Performed by: Rhona Silver MD Authorized by: Rah Boyd MD Total critical care time: 35 minutes Critical care time was exclusive of sep arately billable procedures and treating other patients. Critical care was necessary to treat or prevent imminent or life-threatening deterioration of the f ollowing conditions: renal failure and sepsis. Critical care was time spent personally by me on the following activities: development of treatment plan with blake ent or surrogate, discussions with consultants, evaluation of patient's re sponse to treatment, examination of patient, obtaining history from patient or surrogate, ordering and performing treatments and interventions , ordering and review of laboratory studies, ordering and review of radiogr aphic studies, pulse oximetry, re-evaluation of patient's condition an d review of old charts. * Urinalysis w/Microscopic + Reflex to Culture (09/05/2019 4:38 PM HORSE TRAINER) Color, UA Yellow [facility] Clarity, UA Cloudy [facility] Specific 1.011 1.001 - 1.035 [facility] [place], [facility] pH, UA 6.0 5.0 - 8.0 [facility] Protein, UA 200 mg/dL (A) Negative [facility] Glucose, UA Negative Negative [facility] Ketones, UA Negative Negative [facility] Bilirubin, UA Negative Negative [facility] Blood, UA Small (A) Negative [facility] Nitrite, UA Negative Negative [facility] Leukocytes, UA Large (A) Negative [facility] Urobilinogen, 0.2 0.2 - 1.0 mg/dL [facility] RBC, UA 14 /HPF [facility] WBC, UA 986 /HPF [facility] Bacteria, UA Many [facility] Squam Epithel, 13 /HPF [facility] Casts 108 /LPF [facility] Yeast Few [facility] Specimen Source [facility] Specimen Urine Narrative Performed At Account Officer ID - [auto] [facility] Account Officer ID - [facility] Performing Organization Address City/State/[facility] Ph one [address] [facility] * Urine culture (09/05/2019 4:38 PM HORSE TRAINER) Result 80-89,000 col/mL Escherichia YADIEL STEVENSON coli (A)Comment: ESBL Positive [facility] Specimen Urine - Urine (substance) Antibiotic Method Susceptibility Organism Amikacin 4: Susceptible Escherichia coli Ampicillin + Sulbactam >=32: Resistant Escherichia coli Aztreonam >=64: Resistant Escherichia coli Cefepime >=64: Resistant Escherichia coli Cefoxitin 16: Resistant Escherichia coli Ceftazidime Resistant Escherichia coli Ceftriaxone >=64: Resistant Escherichia coli Ertapenem <=0.5: Susceptible Escherichia coli Gentamicin >=16: Resistant Escherichia coli Levofloxacin >=8: Resistant Escherichia coli Meropenem <=0.25: Susceptible Escherichia coli Nitrofurantoin 32: Susceptible Escherichia coli Piperacillin + Tazobactam Resistant Escherichia coli Tetracycline 2: Susceptible Escherichia coli Tobramycin >=16: Resistant Escherichia coli Trimethoprim + Sulfamethoxazole <=20: Susceptible Escherichia coli Performing Organization Address [facility] Ph one [address] [phone] [place] [address] * Lipase (09/05/2019 3:32 PM HORSE TRAINER) Lipase 23 8 - 78 U/L [facility] Specimen Blood Narrative Performed At Account Officer ID - [facility] Performing Organization Address City/State/Zipcode Ph one [address] [facility] * Amylase (09/05/2019 3:32 PM HORSE TRAINER) Amylase 34Comment: Specimen slightly 25 - 125 U/L [facility] hemolyzed [facility] Specimen Blood Narrative Performed At Account Officer ID - [facility] Performing Organization Address City/[facility] Ph one [address] [place], [place] [address] [facility]ENTER * HEMODIALYSIS INPATIENT (09/02/2019 5:42 PM HORSE TRAINER) Narrative Performed At Kathia Blankenship RN 09/02/2019 5:43 PM Lab Results Component Value Date HEPBSAG Nonreactive 08/14/2019 ] Lab Results Component Value Date GLUCOSE 124 (H) 09/02/2019 CALCIUM 9.9 09/02/2019 NA 129 (L) 09/02/2019 K 5.1 09/02/2019 CO2 29 09/02/2019 CL 92 (L) 09/02/2019 BUN 45 (H) 09/02/2019 CREATININE 9.20 (H) 09/02/2019 Lab Results Component Value Date WBC 6.2 08/30/2019 HGB 9.0 (L) 08/30/2019 HCT 29.8 (L) 08/30/2019 MCV 95.8 (H) 08/30/2019 PLT 134 (L) 08/30/2019 HD treatment completed for 4 hours. Net UF of 2,593mls. Used AVF, noted good bruit and thrill, no problem s noted. Patient stable but had an episode of BP dropping lower than parameters. Gave Mannitol 12.5 g x1. Patient stable post treatment. Endorsed to nurse. * HEMODIALYSIS INPATIENT (08/30/2019 11:55 AM HORSE TRAINER) Narrative Performed At Alyson Stoddard RN 08/30/2019 1:0 5 PM Procedure fairly tolerated. Mannitol 12 .5 gm given x 1 dose to support blood pressure. Vital signs sta ble post procedure. HD duration 3.5 hours UF 2.7 L vi a left upper arm AV Fistula. Lab Results Component Value Date WBC 6.2 08/30/2019 HGB 9.0 (L) 08/30/2019 HCT 29.8 (L) 08/30/2019 MCV 95.8 (H) 08/30/2019 PLT 134 (L) 08/30/2019 Lab Results Component Value Date GLUCOSE 129 (H) 08/30/2019 CALCIUM 8.3 (L) 08/30/2019 NA 137 08/30/2019 K 4.3 08/30/2019 CO2 26 08/30/2019 CL 100 08/30/2019 BUN 37 (H) 08/30/2019 CREATININE 7.11 (H) 08/30/2019 No components found for: HEPSAG Vitals: 08/30/19 1130 BP: 114/56 Pulse: 75 Resp: 14 Temp: SpO2: 100% * Potassium-Stat Lab (08/29/2019 1:13 PM HORSE TRAINER) Only the most recent of 2 results within the time period is included. [facility] Potassium 3.1 (L) 3.6 - 5.5 meq/L [facility] Specimen Blood, Arterial Performing Organization Address [facility] one Number [place] [address] [facility] * POC-Hemoglobin meter (08/29/2019 10:25 AM HORSE TRAINER) [facility] POC-Hemoglobin 10.4 (L)Comment: TESTED AT 12.0 - 15.0 g/dL C [facility] [address] Specimen Blood Performing Organization Address [facility] one Number [place] [address] [phone] [place] [address] * HEMODIALYSIS INPATIENT (08/15/2019 12:08 AM HORSE TRAINER) Narrative Performed At Óscar Freed RN 08/15/2019 12:1 0 AM Lab Results Component Value Date WBC 7.9 08/14/2019 HGB 12.1 08/14/2019 HCT 40.3 08/14/2019 MCV 96.0 (H) 08/14/2019 PLT 166 08/14/2019 Lab Results Component Value Date GLUCOSE 273 (H) 08/14/2019 CALCIUM 8.4 08/14/2019 NA 133 (L) 08/14/2019 K 4.9 08/14/2019 CO2 25 08/14/2019 CL 93 (L) 08/14/2019 BUN 72 (H) 08/14/2019 CREATININE 7.69 (H) 08/14/2019 HD treatement x3 hours completed tolera estelle well,UF 3 liters removed,patient stable no complaints.Shanti Freed RN * Blood gas, venous (08/14/2019 4:29 PM HORSE TRAINER) [facility] pH, Hermes 7.36 7.32 - 7.42 [facility] pCO2, Hermes 54 (H) 41 - 51 mmHg [facility] pO2, [place] 41 (H) 25 - 40 mmHg [facility] O2 Sat, Hermes 73.0 (H) 40.0 - 70.0 % [facility] HCO3, Herm[place] 30 (H) 21 - 29 mmol/L [facility] Base Excess, 3.5 (H) -2.0 - 3.0 mmol/L [facility] Hermes [facility] Patient [address] [facility] Temperature [facility] FIO2 21.0 % [facility] Specimen Blood Performing Organization Address [facility] one Number [place] [address] [phone] * Blood Culture - Routine (Left Venipuncture) (08/14/2019 4:20 PM HORSE TRAINER) Only the most recent of 3 results within the time period is included. Result No growth in 5 days [facility] Specimen Blood - Entire right upper arm (body structure) Performing Organization Address [facility] one [place] [address] [phone] [place] [address] * C-Reactive Protein (08/14/2019 3:40 PM HORSE TRAINER) CRP 6.10 (H) 0.00 - 0.50 mg/dL [facility] Specimen Blood Narrative Performed At Account Officer ID - BS [facility] Performing Organization Address [facility] one Number [place] [phone] * Lactic acid, venous (08/14/2019 3:40 PM HORSE TRAINER) Lactate, Venous 1.4Comment: Specimen 0.5 - 2.2 mmol/L [facility] moderately hemolyzed [facility] Specimen Blood Narrative Performed At Account Officer ID - BS [facility] Performing Organization Address City/[facility] Ph one Number [facility] [address] [place] [address] [phone] [place] [address] * CARDIAC CATH REPORT - SCAN (07/18/2019 8:20 AM HORSE TRAINER) Narrative Performed At This result has an attachment that is n ot available. * VASCULAR DIAGRAM -SCAN (07/18/2019 8:20 AM HORSE TRAINER) Only the most recent of 2 results within the time period is included. Narrative Performed At This result has an attachment that is n ot available. * HEMODIALYSIS INPATIENT (07/10/2019 11:55 AM HORSE TRAINER) Narrative Performed At Tootie Guerrero RN 07/10/2019 11:55 AM Lab Results Component Value Date GLUCOSE 124 (H) 07/10/2019 CALCIUM 7.9 (L) 07/10/2019 NA 137 07/10/2019 K 4.2 07/10/2019 CO2 25 07/10/2019 CL 101 07/10/2019 BUN 29 (H) 07/10/2019 CREATININE 6.25 (H) 07/10/2019 Lab Results Component Value Date WBC 12.0 (H) 07/10/2019 HGB 7.7 (L) 07/10/2019 HCT 24.3 (L) 07/10/2019 MCV 94.2 07/10/2019 PLT 235 07/10/2019 Results for BLANCA HORN (MR N [id number]) as of 07/10/2019 10:45 Ref. Range 06/28/2019 09:11 Hepatitis B Surface Ag Latest Ref Range : Nonreactive Nonreactive HD X 4 hours completed. Net UF -3L. VSS. Patient very confused. Restless during procedure. Required constant observation during HD so she wouldn't p ull out her access catheters. Tootie Guerrero RN * Vancomycin level, trough (07/09/2019 4:15 AM HORSE TRAINER) Vancomycin Tr 18.0 10.0 - 20.0 ug/mL [facility] Specimen Blood Performing Organization Address City/[facility] Ph one Number [facility] [address] [place] [address] [phone] [place] [address] * Procalcitonin (07/09/2019 4:14 AM HORSE TRAINER) Procalcitonin 1.09 (H) <0.05 ng/mL [facility] Specimen Blood Narrative Performed At SEPSIS RISK (ng/mL) [facility] Low: 0.05-0.50 [facility] Intermediate: 0.51-2.00 High: >=2.01 Performing Organization Address [facility] one Number [facility] [address] [place], [place] [address] [phone] [place] [address] * Clostridium difficile [facility] Toxin (07/08/2019 1:14 PM HORSE TRAINER) C. Difficle Negative Negative [facility] C. Difficile Positive (A)Comment: C. Negative [facility] Antigen difficile present but [facility] not detected. Indicates MEDICAL CENTER colonization with non-toxigenic strain or level of toxin below detectable levels. No need for enteric isolation. Treatment is rarely needed (only when strong clinical suspicion for Clostridium difficile infection) Specimen Stool - Feces (substance) Narrative Performed At Testing performed by [employer]. Fo r GD, published [facility] sensitivity of the assay is 98.7% blas red to cytotoxicity testing. For Toxin [facility] AB, published sensitivity is 87.8% and specificity 99.4% compared to cytotoxicity testing. Verification of kit performance was don e by the [facility] Microbiology Lab prior to clinical use. Performing Organization Address [facility] one Number [facility] [address] [place], [place] [address] [facility] * HEMODIALYSIS INPATIENT (07/05/2019 6:01 PM HORSE TRAINER) Narrative Performed At Alyson Stoddard RN 07/05/2019 6: 05 PM Treatment terminated early per patient' s insistence. Dr. Nelson was notified who stated have patient sign A MA, which patient signed. Vital signs stable. HD duration 2 hours and 10 minutes UF 0 .[address] left upper arm AV Fistula. Lab Results Component Value Date WBC 9.5 07/05/2019 HGB 9.0 (L) 07/05/2019 HCT 29.0 (L) 07/05/2019 MCV 92.9 07/05/2019 PLT 215 07/05/2019 Lab Results Component Value Date GLUCOSE 64 (L) 07/05/2019 CALCIUM 8.4 07/05/2019 NA 138 07/05/2019 K 4.3 07/05/2019 CO2 26 07/05/2019 CL 100 07/05/2019 BUN 32 (H) 07/05/2019 CREATININE 6.07 (H) 07/05/2019 No components found for: HEPSAG Vitals: 07/05/19 1745 BP: 133/85 Pulse: 76 Resp: 18 Temp: 97.5 F (36.4 C) SpO2: 93% * EEG AWAKE AND DROWSY (07/02/2019 10:52 AM HORSE TRAINER) Specimen Narrative Performed At EEG REPORT: Blanca Horn, 74 yrs GE RIS Date of EE Date of report: Test location: Inpatient - ICU EEG start time: 1030 EEG end time: 105 EEG #: [id number] ICD Code: #: R41.82 Altered mental s tatus, unspecified (ICD 9: 780.97) CPT Code: #: 72797: 01. EEG awake an d drowsy; 20-40 min PROCEDURE: EEG HISTORY: waxing/waning mentation, AMS. 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 MEDICATIONS AFFECTING EEG: cilostazol, heparin, insulin, levothyroxine, rosuvastatin, sertraline TECHNICAL SUMMARY: This is a digital EE G performed using disc electrodes placed according to the Inte rnational 10-20 system of electrode placement. Scalp to scalp a nd scalp to ear montages were used. DESCRIPTION OF RECORD: In the best awake state, a Posterior Do minant Rhythm (PDR) was present at 8-9 cycles/ second. No epile ptiform discharges were noted. No clinical or electrographic seizures were noted. SLEEP The patient was drowsy during the recording. HYPERVENTILATION: Hyperventilation was not performed. PHOTIC STIMULATION: Photic stimulation did not result in a driving response. EKG: The heart rate was 72/ min. IMPRESSION: This EEG in wakefulness and drowsiness is within the range of normal variation. No seizures or epileptiform activity were seen. COMMENT: A normal EEG does not rule out the diag nosis of a seizure disorder. Further clinical correlation is suggest ed. Neurophysiologist: Yaniv Jones Procedure Note Interface, External Ris In - 07/02/2019 11:15 AM HORSE TRAINER EEG REPORT: Blanca Horn, 74 yrs Date of EE Date of report: Test location: Inpatient - ICU EEG start time: 1030 EEG end time: 105 EEG #: [id number] ICD Code: #: R41.82 Altered mental status, unspecified (ICD 9: 780.97) CPT Code: #: 55958: 01. EEG awake and drowsy; 20-40 min PROCEDURE: EEG HISTORY: waxing/waning mentation, AMS. 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 MEDICATIONS AFFECTING EEG: cilostazol, heparin, insulin, levothyroxine, rosuvastatin, sertraline TECHNICAL SUMMARY: This is a digital EEG performed using disc electrodes placed according to the International 10-20 system of electrode placement. Scalp to scalp and scalp to ear montages were used. DESCRIPTION OF RECORD: In the best awake state, a Posterior Dominant Rhythm (PDR) was present at 8-9 cycles/ second. No epileptiform discharges were noted. No clinical or electrographic seizures were noted. SLEEP The patient was drowsy during the recording. HYPERVENTILATION: Hyperventilation was not performed. PHOTIC STIMULATION: Photic stimulation did not result in a driving response. EKG: The heart rate was 72/ min. IMPRESSION: This EEG in wakefulness and drowsiness is within the range of normal variation. No seizures or epileptiform activity were seen. COMMENT: A normal EEG does not rule out the diagnosis of a seizure disorder. Further clinical correlation is suggested. Neurophysiologist: Yaniv Jones Performing Organization Address City/State/Zipcode Ph one Number GE RIS * PTH, intact (07/02/2019 4:09 AM HORSE TRAINER) PTH 67.3 8.5 - 72.5 pg/mL [facility] Specimen Blood Performing Organization Address City/State/Zipcode Ph one Number [facility] [address] [place], [place] [address] [facility] * PERIPHERAL VASCULAR REPORT - SCAN (06/30/2019 9:23 PM HORSE TRAINER) Narrative Performed At This result has an attachment that is n ot available. 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 Clinical History COPD;DM;DCHF;ESRD;HTN;HYPOTHYROID;MO;OS A. Contrast Medium: Bubble Study. Height: 65 inches Weight: 99.79 kg (220 lbs) BSA: 2.06 m^2 BMI: 36.61 kg/m^2 HR: 71 bpm BP: 178/78 mmHg Previous Study Compared to the previous study there wa s no significant change. Signature Findings Left Ventricle The LV endoc ardium is adequately visualized. The left ventricle is chamber size (by vol index) is n ormal (female - LVED vol - 29-61ml/m2). Mode rate concentric LV hypertrophy. All of the LV segments contract normally . LVEF by Garcia's method of disk assessment is norm al (55-60%) . Grad e 1 diastolic dysfunction (impaired relaxation and low-normal LA pressure). Left Atrium LA is adeq uately visualized. LA s ize is mildly enlarged (35-41 ml/m2) . Right Ventricle The right ve ntricular chamber size and systolic func tion are within normal limits. Right Atrium RA size is normal. Atrial Septum The interat rial septum is adequately visualized. IV s jayro contrast injection was negative for a PFO (pat ent foramen ovale) at rest and post Valsalva . Aortic Valve Mild AoV cu sp thickening. Mild AoV cusp calcification. Mitral Valve Mild MV willard flet thickening. Mild mitral annular calcification. Trac e mitral regurgitation. Tricuspid Valve TV structure is normal. A tr alvaro of tricuspid regurgitation. Archana mated peak systolic PA pressure cannot be dete rmined due to inadequate TR velocity signal . Pulmonic Valve Normal PV st ructure appears normal by available view s. A tr alvaro of pulmonary regurgitation. Aorta Aortic root size (SInus of Valsalva diameter) is norm al . Prox imal ascending aorta size is mildly dilated carol uring 3.8cm. Pericardium No signifi cant pericardial effusion is visualized. IVC/SVC/PA/PV/Pleural The estimated R A pressure by IVC dynamics 0-5mmHg . Chambers/Structures Left Atrium LA Volume: 83.64 ml LA Area: 25.43 cm^2 LA Vol. Index: 41 ml/m^2 Left Ventricle LVIDd: 4.21 cm LVEDV:79.14 ml LVIDs: 2.94 cm LVESV:25.44 ml LV Septum Diastolic: 1.56 cm LVEF 2D Cube: 66 % LV PW Diastolic: 1.62 cm LVEDV Garcia's:95.3 ml LV FS: 30.2 % LVESV Garcia's:35.13 ml LVEF Garcia's: 63.1 % LVEDVI: 46 ml/m^2 LVESVI: 17 ml/m^2 LVOT Diameter: 2.84 cm LVEF: 67.9 % Aorta Ao Root S of Nancy.: 3.39 cm Doppler/Quantitative Measurements Mitral Valve MV Peak E-Wave: 0.84 m/s MV Peak A-Wave: 1.42 m/s P1/2t: 65.6 msec E/A Ratio: 0.59 Mean Velocity: 1.07 m/s Peak Gradient: 2.8 mmHg Mean Gradient: 5.05 mmHg Deceleration Time: 226.2 msec MV Area (PHT): 3.35 cm^2 Area (continuity): 4.51 cm^2 MV VTI: 39.97 cm MV Klaus. Peak: 1.59 m/s Tissue Doppler E' Septal Velocity: 0.09 m/s A' Septal Velocity: 0.11 m/s E/E': 9.19 Aortic Valve Peak Velocity: 1.97 m/s Mean Velocity: 1.27 m/s Peak Gradient: 15.49 mmHg Mean Gradient: 7.34 mmHg AV Area (continuity): 4.66 cm^2 AV VTI: 38.62 cm AV DVI: 0.74 LVOT Peak Velocity: 1.47 m/s Peak Gradient: 8.68 mmHg Mean Velocity: 0.93 m/s Mean Gradient: 4.1 mmHg LVOT Diameter: 2.84 cm LVOT VTI: 28.45 cm LVOT Area: 6.33 cm^2 LVOT SV:180.13 ml LVOT CO: 12.79 l/min LVOT CI: 6.21 l/min/m^2 Procedure Note Interface, External Ris In - 06/30/2019 4:05 PM HORSE TRAINER Transthoracic Echocardiography Report (TTE) Demographics Patient Name BLANCA HORN Date of Study 06/30/2019 OMAR Gender Female Visit Number [id number] Race Black Room Number [id number] Number Date of 1945 Referring Physician Charbel Harris 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 Clinical History COPD;DM;DCHF;ESRD;HTN;HYPOTHYROID;MO;DAVID. Contrast Medium: Bubble Study. Height: 65 inches Weight: 99.79 kg (220 lbs) BSA: 2.06 m^2 BMI: 36.61 kg/m^2 HR: 71 bpm BP: 178/78 mmHg Previous Study Compared to the previous study there was no significant change. Signature Findings Left Ventricle The LV endocardium is adequately visualized. The left ventricle is chamber size (by vol index) is normal (female - LVED vol - 29-61ml/m2). Moderate concentric LV hypertrophy. All of the LV segments contract normally . LVEF by Garcia's method of disk assessment is normal (55-60%) . Grade 1 diastolic dysfunction (impaired relaxation and low-normal LA pressure). Left Atrium LA is adequately visualized. LA size is mildly enlarged (35-41 ml/m2) . Right Ventricle The right ventricular chamber size and systolic function are within normal limits. Right Atrium RA size is normal. Atrial Septum The interatrial septum is adequately visualized. IV saline contrast injection was negative for a PFO (patent foramen ovale) at rest and post Valsalva . Aortic Valve Mild AoV cusp thickening. Mild AoV cusp calcification. Mitral Valve Mild MV leaflet thickening. Mild mitral annular calcification. Trace mitral regurgitation. Tricuspid Valve TV structure is normal. A trace of tricuspid regurgitation. Estimated peak systolic PA pressure cannot be determined due to inadequate TR velocity signal . Pulmonic Valve Normal PV structure appears normal by available views. A trace of pulmonary regurgitation. Aorta Aortic root size (SInus of Valsalva diameter) is normal . Proximal ascending aorta size is mildly dilated measuring 3.8cm. Pericardium No significant pericardial effusion is visualized. IVC/SVC/PA/PV/Pleural The estimated RA pressure by IVC dynamics 0-5mmHg . Chambers/Structures Left Atrium LA Volume: 83.64 ml LA Area: 25.43 cm^2 LA Vol. Index: 41 ml/m^2 Left Ventricle LVIDd: 4.21 cm LVEDV:79.14 ml LVIDs: 2.94 cm LVESV:25.44 ml LV Septum Diastolic: 1.56 cm LVEF 2D Cube: 66 % LV PW Diastolic: 1.62 cm LVEDV Garcia's:95.3 ml LV FS: 30.2 % LVESV Garcia's:35.13 ml LVEF Garcia's: 63.1 % LVEDVI: 46 ml/m^2 LVESVI: 17 ml/m^2 LVOT Diameter: 2.84 cm LVEF: 67.9 % Aorta Ao Root S of Nancy.: 3.39 cm Doppler/Quantitative Measurements Mitral Valve MV Peak E-Wave: 0.84 m/s MV Peak A-Wave: 1.42 m/s P1/2t: 65.6 msec E/A Ratio: 0.59 Mean Velocity: 1.07 m/s Peak Gradient: 2.8 mmHg Mean Gradient: 5.05 mmHg Deceleration Time: 226.2 msec MV Area (PHT): 3.35 cm^2 Area (continuity): 4.51 cm^2 MV VTI: 39.97 cm MV Klaus. Peak: 1.59 m/s Tissue Doppler E' Septal Velocity: 0.09 m/s A' Septal Velocity: 0.11 m/s E/E': 9.19 Aortic Valve Peak Velocity: 1.97 m/s Mean Velocity: 1.27 m/s Peak Gradient: 15.49 mmHg Mean Gradient: 7.34 mmHg AV Area (continuity): 4.66 cm^2 AV VTI: 38.62 cm AV DVI: 0.74 LVOT Peak Velocity: 1.47 m/s Peak Gradient: 8.68 mmHg Mean Velocity: 0.93 m/s Mean Gradient: 4.1 mmHg LVOT Diameter: 2.84 cm LVOT VTI: 28.45 cm LVOT Area: 6.33 cm^2 LVOT SV:180.13 ml LVOT CO: 12.79 l/min LVOT CI: 6.21 l/min/m^2 Performing Organization Address City/State/Zipcode Ph one Number [facility] ECHO [facility]ART[facility] * Pseudoaneurysm Groin Doppler Left (06/29/2019 11:53 AM HORSE TRAINER) Ejection [facility] ECHO Fraction [facility]ARTLAB [facility] Specimen Impressions Performed At Left Impression [facility] 1. There is no pseudoaneurysm visualized. [facility] 2. There is no hematoma visualized. 3. There is no venous obstruction or ar teriovenous fistula visualized. 4. The common femoral artery flow is bi phasic with a velocity of 149 cm/sec. (within normal range). Conclusions Summary Duplex imaging of the left groin area w as performed. The vessels were technically difficult to visualize. The re was no evidence of a pseudoaneurysm, venous obstruction or a rteriovenous fistula in the left groin area. Signature Velocities are measured in cm/s ; Diame ters are measured in cm Narrative Performed At [facility] - Pseudoaneurysm Survey [facility]ART[facility] Demographics 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 Indications for Study:R/O pseudoaneurys m . Patient Status:Routine. Study Location:Portable. Technical Quality:Technically Difficult . Risk Factors History of Disease + +----+ + !Diagnosis !Date!Comments ! + +----+ + !History/Risk ! !DM, HTN, HLD, CKD, Volume Overload, ESRD,S/P Right ! !Factors: ! !subclavian a kyaw dialysis catheter placement ! ! ! !01/2015,M orbid obesity ! + +----+ + Procedure Note Interface, External Ris In - 06/30/2019 2:23 PM HORSE TRAINER [facility] - Pseudoaneurysm Survey Demographics Patient Name BLANCA HORN Date of Study 06/29/2019 OMAR Age 74 Visit Number [id number] Gender Female Accession Number [id number] Date of 1945 Referring [facility] Fely Acevedo Room Number 7403 Physician Clothes Presser Tracy Ho T Interpreting Bianka Cheema MD Physician Procedure Type of Study: Pseudoaneurysm: PSEUDOANEURYSM, GROIN DOPPLER LEFT. Indications for Study:R/O pseudoaneurysm . Patient Status:Routine. Study Location:Portable. Technical Quality:Technically Difficult. Risk Factors History of Disease + +----+ + !Diagnosis !Date!Comments ! + +----+ + !History/Risk ! !DM, HTN, HLD, CKD, Volume Overload, ESRD,S/P Right ! !Factors: ! !subclavian area dialysis catheter placement ! ! ! !01/2015,Morbid obesity ! + +----+ + Impressions Left Impression 1. There is no pseudoaneurysm visualized . 2. There is no hematoma visualized. 3. There is no venous obstruction or art eriovenous fistula visualized. 4. The common femoral artery flow is bip hasic with a velocity of 149 cm/sec. (within normal range). Conclusions Summary Duplex imaging of the left groin area was performed. The vessels were technically difficult to visualize. There was no evidence of a pseudoaneurysm, venous obstruction or arteriovenous fistula in the left groin area. Signature Velocities are measured in cm/s ; Diameters are measured in cm Performing Organization Address City/State/Zipcode Ph one Number [facility] * XR abdomen / KUB 1 view (06/29/2019 9:24 AM HORSE TRAINER) Specimen Narrative Performed At FINAL REPORT [facility] Abdomen. MEDICAL HISTORY: Line placement. COMPARISON STUDY: April 30, 2015. FINDINGS: Two supine views of the abdom en demonstrates a feeding tube in place, the distal aspect projecting over the gastroduodenal junction. No dilated loops of bowel are seen. Sig nificant stool is in the rectal region. A right femoral line is noted. Degenerative changes are seen. This rowena m is insensitive for the detection of free air. Signed: Gabi Carr MD Report Verified Date/Time: 06/29/2019 09:57:47 Reading Location: [facility] C013X Ortho Co nsult Reading Room Procedure Note Interface, External Ris In - 06/29/2019 10:00 AM HORSE TRAINER FINAL REPORT Abdomen. MEDICAL HISTORY: Line placement. COMPARISON STUDY: April 30, 2015. FINDINGS: Two supine views of the abdomen demonstrates a feeding tube in place, the distal aspect projecting over the gastroduodenal junction. No dilated loops of bowel are seen. Significant stool is in the rectal region. A right femoral line is noted. Degenerative changes are seen. This film is insensitive for the detection of free air. Signed: Gabi Carr MD Report Verified Date/Time: 06/29/2019 09:57:47 Reading Location: [facility] C013X Ortho Consult Reading Room Performing Organization Address City/State/Zipcode Ph one Number [facility] * aPTT (06/28/2019 11:28 PM HORSE TRAINER) PTT 33.8 22.5 - 36.0 seconds [facility] Specimen Blood Performing Organization Address City/State/Zipcode Ph one Number [facility] [address] [address] [facility] * Fibrinogen (06/28/2019 11:28 PM HORSE TRAINER) Fibrinogen 428 225 - 434 mg/dl [facility] Specimen Blood Performing Organization Address City/[facility] Ph one Number [id number] [place], [place] [address] [facility] * Comprehensive metabolic panel (06/28/2019 11:28 PM HORSE TRAINER) Protein, Total 6.7 6.0 - 8.3 gm/dL [facility] Albumin 3.0 (L) 3.5 - 5.0 g/dL [facility] Alkaline 61 40 - 150 U/L [facility] Total Bilirubin 0.4 0.2 - 1.2 mg/dL [facility] Sodium 132 (L) 136 - 145 meq/L [facility] Potassium 5.0 3.5 - 5.1 meq/L [facility] Chloride 97 (L) 98 - 107 meq/L [facility] CO2 23 22 - 29 meq/L [facility] BUN 43 (H) 7 - 21 mg/dL [facility] Creatinine 7.54 (H) 0.57 - 1.25 mg/dL [facility] Glucose 233 (H) 70 - 105 mg/dL [facility] Calcium 7.8 (L) 8.4 - 10.2 mg/dL [facility] AST 8 5 - 34 U/L [facility] ALT <6 (L) 6 - 55 U/L [facility] EGFR 6Comment: ESTIMATED GFR IS NOT mL/min/1.[address] [facility] ACCURATE CREATININE [facility] CLEARANCE IN PREDICTING MEDICAL CENTER GLOMERULAR FILTRATION RATE. ESTIMATED GFR IS NOT APPLICABLE FOR DIALYSIS PATIENTS. Specimen Blood Performing Organization Address City/[facility] Ph one Number [facility] [address] [id number] [facility] * CTA carotid (06/28/2019 4:44 PM HORSE TRAINER) Specimen Narrative Performed At FINAL REPORT [facility] CLINICAL HISTORY: Neuro deficit, acute, stroke suspected TECHNIQUE: Contiguous contrast-enhanced axial images through the neck followed by axial images through the he ad with coronal and sagittal reformations to assess the arterial cir culation. 3-D reconstructions were performed using a volume rendered technique separately on a workstation. This exam was performed ac cording to the departmental dose optimization program which include s automated exposure control, adjustment of the mA and/or kV accordin g to the patient size, and/or use of an iterative reconstruction tech nique. COMPARISON: Noncontrast head CT 019 FINDINGS: There is severe stenosis involving the proximal right middle cerebral artery, with a severely narrowed and noel spected partially occluded right middle cerebral artery bifurcatio n. There is loss of caliber of the right MCA distal branch vessels com pared to the left. The right anterior cerebral artery A1 s egment is moderately stenotic. There is a patent anterior communicatin g artery. There are origins of the bilateral posterior cere bral arteries. There is moderate to severe diffuse narrowing of the basilar artery on a developmental and/or atherosclerotic ba sis. The major intradural venous sinuses are patent. There is moderate atherosclerotic disea se in the bilateral common carotid arteries and proximal internal carotid arteries, without hemodynamically significant stenosis by NASCET criteria. There is severe stenosis of the bilater al vertebral artery origins. There are dorsal spondylitic changes in the cervical spine. There are scattered subcentimeter lymph nodes in the neck. IMPRESSION: Severe stenosis of the right middle cer ebral artery M1 segment extending to the bifurcation, where the re is a suspected partial occlusion. The findings were discussed with the itical care neurologist at 5:20 PM Signed: Cris Dykes MD Report Verified Date/Time: 06/28/2019 17:32:12 Reading Location: [facility] B1 C013V Neuro Re ading Room Procedure Note Interface, External Ris In - 06/28/2019 5:34 PM HORSE TRAINER FINAL REPORT CLINICAL HISTORY: Neuro deficit, acute, stroke suspected TECHNIQUE: Contiguous contrast-enhanced axial images through the neck followed by axial images through the head with coronal and sagittal reformations to assess the arterial circulation. 3-D reconstructions were performed using a volume rendered technique separately on a workstation. This exam was performed according to the departmental dose optimization program which includes automated exposure control, adjustment of the mA and/or kV according to the patient size, and/or use of an iterative reconstruction technique. COMPARISON: Noncontrast head CT 06/28/2019 FINDINGS: There is severe stenosis involving the proximal right middle cerebral artery, with a severely narrowed and suspected partially occluded right middle cerebral artery bifurcation. There is loss of caliber of the right MCA distal branch vessels compared to the left. The right anterior cerebral artery A1 segment is moderately stenotic. There is a patent anterior communicating artery. There are origins of the bilateral posterior cerebral arteries. There is moderate to severe diffuse narrowing of the basilar artery on a developmental and/or atherosclerotic basis. The major intradural venous sinuses are patent. There is moderate atherosclerotic disease in the bilateral common carotid arteries and proximal internal carotid arteries, without hemodynamically significant stenosis by NASCET criteria. There is severe stenosis of the bilateral vertebral artery origins. There are dorsal spondylitic changes in the cervical spine. There are scattered subcentimeter lymph nodes in the neck. IMPRESSION: Severe stenosis of the right middle cerebral artery M1 segment extending to the bifurcation, where there is a suspected partial occlusion. The findings were discussed with the critical care neurologist at 5:20 PM Signed: Cris Dykes MD Report Verified Date/Time: 06/28/2019 17:32:12 Reading Location: [facility] C0[facility] Neuro Reading Room Performing Organization Address City/State/Zipcode Ph one Number [facility] * CTA brain (06/28/2019 4:44 PM HORSE TRAINER) Specimen Narrative Performed At FINAL REPORT [facility] CLINICAL HISTORY: Neuro deficit, acute, stroke suspected TECHNIQUE: Contiguous contrast-enhanced axial images through the neck followed by axial images through the he ad with coronal and sagittal reformations to assess the arterial cir culation. 3-D reconstructions were performed using a volume rendered technique separately on a workstation. This exam was performed ac cording to the departmental dose optimization program which include s automated exposure control, adjustment of the mA and/or kV accordin g to the patient size, and/or use of an iterative reconstruction tech nique. COMPARISON: Noncontrast head CT 019 FINDINGS: There is severe stenosis involving the proximal right middle cerebral artery, with a severely narrowed and noel spected partially occluded right middle cerebral artery bifurcatio n. There is loss of caliber of the right MCA distal branch vessels com pared to the left. The right anterior cerebral artery A1 s egment is moderately stenotic. There is a patent anterior communicatin g artery. There are origins of the bilateral posterior cere bral arteries. There is moderate to severe diffuse narrowing of the basilar artery on a developmental and/or atherosclerotic ba sis. The major intradural venous sinuses are patent. There is moderate atherosclerotic disea se in the bilateral common carotid arteries and proximal internal carotid arteries, without hemodynamically significant stenosis by NASCET criteria. There is severe stenosis of the bilater al vertebral artery origins. There are dorsal spondylitic changes in the cervical spine. There are scattered subcentimeter lymph nodes in the neck. IMPRESSION: Severe stenosis of the right middle cer ebral artery M1 segment extending to the bifurcation, where the re is a suspected partial occlusion. The findings were discussed with the itical care neurologist at 5:20 PM Signed: Cris Dykes MD Report Verified Date/Time: 06/28/2019 17:32:12 Reading Location: [facility] C013V Neuro Re ading Room Procedure Note Interface, External Ris In - 06/30/2019 3:13 PM HORSE TRAINER FINAL REPORT CLINICAL HISTORY: Neuro deficit, acute, stroke suspected TECHNIQUE: Contiguous contrast-enhanced axial images through the neck followed by axial images through the head with coronal and sagittal reformations to assess the arterial circulation. 3-D reconstructions were performed using a volume rendered technique separately on a workstation. This exam was performed according to the departmental dose optimization program which includes automated exposure control, adjustment of the mA and/or kV according to the patient size, and/or use of an iterative reconstruction technique. COMPARISON: Noncontrast head CT 06/28/2019 FINDINGS: There is severe stenosis involving the proximal right middle cerebral artery, with a severely narrowed and suspected partially occluded right middle cerebral artery bifurcation. There is loss of caliber of the right MCA distal branch vessels compared to the left. The right anterior cerebral artery A1 segment is moderately stenotic. There is a patent anterior communicating artery. There are origins of the bilateral posterior cerebral arteries. There is moderate to severe diffuse narrowing of the basilar artery on a developmental and/or atherosclerotic basis. The major intradural venous sinuses are patent. There is moderate atherosclerotic disease in the bilateral common carotid arteries and proximal internal carotid arteries, without hemodynamically significant stenosis by NASCET criteria. There is severe stenosis of the bilateral vertebral artery origins. There are dorsal spondylitic changes in the cervical spine. There are scattered subcentimeter lymph nodes in the neck. IMPRESSION: Severe stenosis of the right middle cerebral artery M1 segment extending to the bifurcation, where there is a suspected partial occlusion. The findings were discussed with the critical care neurologist at 5:20 PM Signed: Cris Dykes MD Report Verified Date/Time: 06/28/2019 17:32:12 Reading Location: [address] Neuro Reading Room Performing Organization Address City/State/Zipcode Ph one Number [facility] * CT brain/stroke test design (06/28/2019 4:27 PM HORSE TRAINER) Specimen Narrative Performed At FINAL REPORT [facility] CT Head without contrast CLINICAL HISTORY: stroke TECHNIQUE: Contiguous axial images thro ugh the head without contrast. This exam was performed according to [facility] departmental dose optimization program which includes aut omated exposure control, adjustment of the mA and/or kV accordin g to the patient size, and/or use of an iterative reconstruction tech nique. COMPARISON: 01/27/2015 FINDINGS: There is asymmetric hypodensity in the right midfrontal lobe compatible with age indeterminate ische ryan, new since 2014. There is no intracranial hemorrhage. There is pe riventricular and subcortical white matter hypodensity which is nonsp ecific but compatible with chronic microvascular ischemic change. There are atherosclerotic calcifications of the intracranial circ ulation. There is generalized parenchymal volume loss without hydroce phalus, midline shift, or apparent mass effect. There are no extr a-axial fluid collections. The skull is intact. The paranasal sinuses are well-aerated. IMPRESSION: No acute hemorrhage. Age indeterminate ischemic change in th e right mid frontal lobe. The findings were discussed with the itical care neurologist at 4:28 PM Signed: Cris Dykes MD Report Verified Date/Time: 06/28/2019 16:27:55 Reading Location: [address] Neuro Re ading Room Procedure Note Interface, External Ris In - 06/28/2019 4:30 PM HORSE TRAINER FINAL REPORT CT Head without contrast CLINICAL HISTORY: stroke TECHNIQUE: Contiguous axial images through the head without contrast. This exam was performed according to the departmental dose optimization program which includes automated exposure control, adjustment of the mA and/or kV according to the patient size, and/or use of an iterative reconstruction technique. COMPARISON: 01/27/2015 FINDINGS: There is asymmetric hypodensity in the right midfrontal lobe compatible with age indeterminate ischemia, new since 2014. There is no intracranial hemorrhage. There is periventricular and subcortical white matter hypodensity which is nonspecific but compatible with chronic microvascular ischemic change. There are atherosclerotic calcifications of the intracranial circulation. There is generalized parenchymal volume loss without hydrocephalus, midline shift, or apparent mass effect. There are no extra-axial fluid collections. The skull is intact. The paranasal sinuses are well-aerated. IMPRESSION: No acute hemorrhage. Age indeterminate ischemic change in the right mid frontal lobe. The findings were discussed with the critical care neurologist at 4:28 PM Signed: Cris Dykes MD Report Verified Date/Time: 06/28/2019 16:27:55 Reading Location: [address] Neuro Reading Room Performing Organization Address City/State/Zipcode Ph one Number GE RIS * Platelet Aggregation: Function Screen (06/28/2019 9:50 AM HORSE TRAINER) Only the most recent of 2 results within the time period is included. Pathologist: Zulma Stuart MD [facility] (electronic signature) [facility] Platelets 177 150 - 450 K/CU MM [facility] ADP 86 62 - 100 % [facility] Platelet Rich 218 200 - 300 k/cu mm [facility]. Function Normal aggregation results [facility] Screen with ADP. No evidence of [facility] Interpretation platelet dysfunction or [facility] inhibitor effect. Specimen Blood Narrative Performed At Platelet Function Screen results may be falsely low w ith platelet counts [facility] <75,000/cu mm. [facility] REDRAW REDRAW REDRAW Performing Organization Address City/[facility] Ph one Number [facility] [address] [place], [place] [address] [facility] * POC ACTIVATED CLOTTING TIME (06/27/2019 9:04 PM HORSE TRAINER) Only the most recent of 5 results within the time period is included. Activated 153Comment: Reference Range: sec C [facility] Clotting Time 74-137 seconds, [facility] Baseline/TESTED AT [address] [address] Specimen Blood Performing Organization Address [facility] Ph one Number [facility] [address] [place], [place] [address] [facility] after 04/24/2019 Insurance Type Payer Benefit Subscriber ID Effective Phone Address Plan / Dates Group [facility] [id number] 2007-P MEDICARE resent ADV CDC REVIEW CDC REVIEW [id number] 2020- [address] [place] [phone] Advance Directives For more information, please contact: [phone] 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
--- OUTSIDE RECORDS SUMMARY | 2020-04-24 12:00 | XMS REPORT | Continuity of Care Document ---
Author Author [facility] t Organization [facility] Address [address] [place] [address] Phone Unavailable Care Team Providers Care Glass Melt Operator Name Role Phone NONSTAFF PCP Unavailable Domitila KHANNA, Parminder Orozco Att[facility] [phone] Tyler KHANNA, Javad Pendleton Att[facility] [phone] Jonathan KHANNA, Khurram Benjamin Att[facility] [phone] PARMINDER SNYDER Attphys Unavailable Patricia VELASQUEZ Attphys Unavailable Samuel KHANNA, Yogi Nash Attphys Marcia KHANNA, Eleazar Alicea Attphys Spike KHANNA, Malgorzata Norris Attphys Andrew KHANNA, Kelley Liriano Attphys [phone] Tran KHANNA, Bárbara Peraza Attphys Liset KHANNA, Arnav Miller Attphys Yogi LOPEZ Attphys Unavailable KODY ALEMAN Attphys Unavailable Jamey MAI Attphys Unavailable Jamey Mai MD Attphys Jairo KHANNA, Willie Novak Attphys Es TOBACCO PREVENTION HEALTH EDUCATOR, Gerardo Attphys Feliciano KHANNA, Matthias Reynosoo Attphys [phone] Nadeem KHANNA, Cade Melgoza Attphys Oliver KHANNA, Trey Monreal Attphys [phone] Feroz KHANNA, Robi Attphys [phone] Nelida KHANNA, Tommie Solis Attphys CADE SILVER Attphys Unavailable FELICIANO, MATTHIAS OLADAPO Attphys Unavailable Sukhdev KHANNA, Patricia Pope Vicki Attphys Jacy KHANNA, Khurram Nevarez Attphys [phone] Ralph KHANNA, Oj Attphys Jaime TOBACCO PREVENTION HEALTH EDUCATOR, Zaida Baldwin Attphys SHANIQUA STUBBS Attphys Unavailable Vance KHANNA, Shaniqua Guerrero Attphys Leeanna KHANNA, Ricky Attphys Ping Castañeda Attphys JAMES MOYASU Attphys Unavailable Israel KHANNA, James Castillo Attphys Charbel KHANNA, Kristina Bazziita Attphys Emily KHANNA, Yolanda Brownlee Attphys Thomas KHANNA, Tony Attphys Javid KHANNA, Trey Mitchell Attphys Ole RODRIGES Attphys Unavailable XIOMARA TOLENTINO Attphys Unavailable Malgorzata LALA Attphys Unavailable GARIMA OLIVERA Attphys Unavailable MARY CAVANAUGHELLE CASSIDY Admphys Unavailable Patricia VELASQUEZ CHERELLE Admphys Unavailable KELLEY MADERA Admphys Unavailable Jamey MAI Admphys Unavailable TREY BOYD Admphys Unavailable MATTHIAS HAJI Admphys Unavailable RICKY JACOBSEN Admphys Unavailable TREY SOLOMON Admphys Unavailable Malgorzata LALA Admphys Unavailable Payers Payer Name Policy Type Policy Number Effective Date Expiration Date Solitario drew [employer] MEDICARE [id number] 2007 00:00:00 [facility] REVIEWC [id number] [facility] [place] [address] [id number] 2020 00:00:[address] [facility] [employer] Medicare Advantage [id number] 2007 00:0 0:00 [facility] Problems Condition Name Condition Details Condition Category Status Onset Date Resolution Date Last Treatment Date Treating Clinician Comments Source Closed fracture of left femur Closed fracture of left femur Disease Active 2020-04-15 00:00:00 [facility] Hyperkalemia Hyperkalemia Disease Active 2020-04-14 00:00:00 [facility] Closed displaced transverse fracture of shaft of left femur, initial encounter Closed displaced transverse fracture of shaft of left femur, initial encounter Disease Active 2020-02-25 00:00:00 [facility] Delirium Delirium Disease Active 2019-09-17 00:00:00 [facility] UTI (urinary tract infection) UTI (urinary tract infection) Disease Active 2019-09-08 00:00:00 [facility] Altered mental status, unspecified altered mental stat us type Altered mental status, unspecified altered mental status type Disease Active 2019-09-05 00:00:00 [facility] ESRD (end stage renal disease) on dialysis ESRD (end s tage renal disease) on dialysis Disease Active 2019-08-29 00:00:00 [facility] Gangrene of right foot Gangrene of right foot Disease Active 2019-08-29 00:00:00 [facility] Hypoxia Hypoxia Disease Active 2019-08-14 00:00:00 [facility] Volume overload Volume overload Disease Active 2019-08-14 00:00:00 [facility] Pneumonia of left lower lobe due to infectious organis m Pneumonia of left lower lobe due to infectious organism Disease Active 2019-08-14 00:00:00 [facility] Acute ischemic stroke Acute ischemic stroke Disease Active 201 03-27-16 00:00:00 [facility] Received intravenous tissue plasminogen activator (tPA ) in emergency department Received intravenous tissue plasminogen activator (tPA) in emergency department Disease Active 2019-06-30 00:00:00 [facility] Hypertension Hypertension Disease Active 2019-06-30 00:00:00 Overview: stress 2008 neg [facility] Peripheral neuropathy Peripheral neuropathy Disease Active 201 03-27-16 00:00:00 [facility] Diabetes Diabetes Disease Active 2019-06-30 00:00:00 [facility] Morbid obesity with BMI of 45.0-49.9, adult Morbid obe sity with BMI of 45.0- 49.9, adult Disease Active 2019-06-30 00:00:00 [facility] HLD (hyperlipidemia) HLD (hyperlipidemia) Disease Active 00:00:00 [facility] Coronary artery disease Coronary artery disease Disease Active 2019-06-30 00:00:00 [facility] Anemia due to blood loss Anemia due to blood loss Disease Acti ve 2019-06-30 00:00:00 [facility] Stroke (cerebrum) Stroke (cerebrum) Disease Active 2019-06-28 00:00:00 [facility] Fever Fever Disease Active 2018-09-13 00:00:00 [facility] GERD (gastroesophageal reflux disease) GERD (gastroesophagea l reflux disease) Disease Active 2018-09-10 00:00:00 [facility] PAD (peripheral artery disease) PAD (peripheral artery disease) Dis ease Active 2018-09-10 00:00:00 [facility] Type 2 diabetes mellitus with hyperglyce kyra, with long-term current use of insulin Type 2 diabetes mellitus with hyperglyce kyra, with long-term current use of insulin Disease Active 2018-09-10 00:00:00 [facility] Hypothyroidism Hypothyroidism Disease Active 2018-09-10 00:00:00 [facility] ESRD on hemodialysis ESRD on hemodialysis Disease Active 00:00:00 [facility] Chronic anemia Chronic anemia Disease Active 2018-09-10 00:00:00 [facility] Gangrene of toe of left foot Gangrene of toe of left foot Disease Active 2018-09-09 00:00:00 [facility] DAVID (obstructive sleep apnea) DAVID (obstructive sleep apnea) Disease Active 2015-02-02 00:00:00 Overview: suspected [facility] ESRD needing dialysis ESRD needing dialysis Disease Active 201 11-20-19 00:00:00 [facility] Bipolar disorder Bipolar disorder Disease Active 2015-01-22 00:00:00 [facility] Chronic diastolic heart failure Chronic diastolic heart failure Dis ease Active 2015-01-22 00:00:00 [facility] Chronic gout Chronic gout Disease Active 2015-01-22 00:00:00 [facility] Hyperlipidemia Hyperlipidemia Disease Active 2015-01-17 00:00:00 [facility] Class 2 severe obesity with serious comorbidity in dewayne lt Class 2 severe obesity with serious comorbidity in adult Disease Active 2015-01-17 00:00:00 [facility] Pre-syncope Near syncope Problem Active [facility] Cellulitis of left foot Cellulitis of left foot Problem Active [facility] Dyspnea Dyspnea Problem Active [facility] Noncompliance with renal dialysis Noncompliance with renal dialy sis Problem Active [facility] Cellulitis Cellulitis Problem Active [facility] Ulcer of left heel Ulcer of left heel Problem Active [facility] Chronic kidney disease Chronic renal disease Problem Active [facility] Impaction of colon Impaction of colon Problem Active [facility] Rectal pain Rectal pain Problem Active [facility] Diverticulitis Diverticulitis Problem Active [facility] Arthralgia of hip Hip pain Problem Active [facility] Hypoglycemia Hypoglycemia Problem Active [facility] Diverticulosis of intestine Problem Active [facility] Junctional bradycardia Problem Active [facility] Essential hypertension Essential hypertension Disease Active [facility] Allergies, Adverse Reactions, Alerts Allergy Name Allergy Type Status Severity Reaction(s) Onset Date Inacti ve Date Treating Clinician Comments Source Morphine Drug Allergy Active Other (See Comments) 2019-09-09 00 :00:00 Confusion [facility] Atorvastatin Allergy to substance Active Hives 2018-12-23 00:00:0 0 [facility] Pneumococcal conjugate vaccine Allergy to substance Active 2018-12-23 00:00:00 [facility] Pneumococcal 23-Nancy Ps Vaccine Drug Allergy Active Hiv es, Shortness Of Breath 2015-05-25 00:00:00 [facility] Atorvastatin Propensity to adverse reactions Active An aphylaxis 2015-01-17 00:00:00 [facility] Pneumococcal Vaccine Propensity to adverse reactions Active Shortness Of Breath 2015-01-17 00:00:00 [facility] Family History Family Member Diagnosis Comments Start Date Stop Date Source 35 FATHER Family history of myocardial infarction [facility] 32 MOTHER Family history of myocardial infarction [facility] 09 BROTHER Family history of myocardial infarction [facility] 09 SISTER Family history of myocardial infarction [facility] Social History Social Habit Start Date Stop Date Quantity Comments Source Sex Assigned At [facility] Exposure to SARS-CoV-2 (event) Not sure [facility] Tobacco use and exposure 2020-04-20 00:00:00 2020-04-20 00:00:00 Naren damon used [facility] Alcohol intake 2020-04-20 00:00:00 2020-04-20 00:00:00 Current non-drinker of alcohol (finding) [facility] Nehal damon Smoking Status Start Date Stop Date Source Never smoker [facility] Medications Ordered Medication Name Filled Medication Name Start Date Stop Da te Current Medication? Ordering Clinician Indication Dosage Frequency Signature (SIG) Comments Components Source levothyroxine (SYNTHROID, LEVOTHROID) 200 MCG tablet 2020-04-17 00:00:00 2021-04-17 23:59:00 Yes 200ug Take 1 tablet (200 mcg total) by mouth Every morning on an empty stomach. [facility] calcium acetate (PHOSLO) 667 mg capsule 2020-04-16 16:35:44 Yes 2001mg Take 2,001 mg by mouth 3 (three) times daily with meals. [facility] aspirin 81 MG EC tablet 2020-04-16 16:35:44 Yes 81mg QD Take 81 mg by mouth daily. [facility] sertraline (ZOLOFT) 25 MG tablet 2020-04-16 16:35:44 Yes 25mg QD Take 25 mg by mouth daily. [facility] fluticasone propionate (FLONASE) 50 mcg/actuation nasal spra y 2020-04-16 16:35:44 Yes 1{spray} QD 1 spray by Nasal route eva moya [facility] venlafaxine (EFFEXOR) 50 MG tablet 2020-04-16 16:35:44 Yes 50mg Q.5D Take 50 mg by mouth 2 (two) times daily. [facility] QUEtiapine (SEROQUEL) 25 MG tablet 2020-04-16 16:35:44 Yes 25mg Q.5D Take 25 mg by mouth 2 (two) times daily. [facility] cilostazoL (PLETAL) 100 MG tablet 2020-04-16 16:35:44 Yes 100mg Q.5D Take 100 mg by mouth 2 (two) times daily. [facility] nitroglycerin (NITROSTAT) 0.4 MG SL tablet 2020-04-16 16:35:[address] 0.4 mg under the tongue every 5 (f jinny) minutes as needed for Chest pain Put 1 pill under tongue every 5min as needed for chest pain.No more than 3 doses in 15min.Call 911 if pain is unrelieved 5min after 1st dose . [facility] carvediloL (COREG) 3.125 MG tablet 2020-04-16 13:10:08 202 00:00:00 No 3.125mg Take 3.125 mg by mouth 2 (two) times daily with breakfast and dinner. [facility] levothyroxine (SYNTHROID, LEVOTHROID) 175 MCG tablet 2020-04-16 12:59:17 2020-04-16 00:00:00 No 175ug Take 175 mcg by mouth Every morning on an empty stomach. [facility] NIFEdipine (ADALAT CC) 30 MG 24 hr tablet 2019-07 12:59:17 2020-04-16 00:00:00 No 30mg QD Take 30 mg by mouth daily. [facility] gabapentin (NEURONTIN) 100 MG capsule 2020-04-16 12:59 :17 2020-04-16 00:00:00 No 100mg QD Take 100 mg by mouth daily. [facility] INSULIN LISPRO SUBQ 2020-04-16 12:59:17 2020-04-16 00:00:00 No 2U Inject 2 Units subcutaneously 3 (three) times daily with meals Do not take if accuchecks < 200 . [facility] rosuvastatin (CRESTOR) 20 MG tablet 2020-04-16 12:59:1 7 2020-04-16 00:00:00 No 10mg QD Take 10 mg by mouth daily. [facility] gabapentin (NEURONTIN) 100 MG capsule 2020-04-16 00:00:00 Y es 100mg QD Take 1 capsule (100 mg total) by mouth nightly. [facility] carvediloL (COREG) 3.125 MG tablet 2020-04-16 00:00:00 Yes 3.125mg Take 1 tablet (3.125 mg total) by mouth 2 (two) times daily with breakfast and dinner Hold on dialysis days. Also hold for SBP <110 or DBP <50 or HR <50.. [facility] epoetin jyothi-epbx (RETACRIT) 10,000 unit/mL Soln injection 2020-04-16 00:00:00 Yes anemia in chronic kidney disease 80121A Inject 1 mL (10,000 Units total) subcutaneously 3 (three) times a week after dialysis MON/WED/FRI. [facility] insulin lispro (HUMALOG) 100 unit/mL injection 2 00:00:00 2021-04-16 23:59:00 Yes 2U Inject 2 Units subcutaneously 3 (three) times daily with meals Do not take if blood glucose < 150.. [facility] NIFEdipine (ADALAT CC) 30 MG 24 hr tablet 2019-07 00:00:00 2021-04-16 23:59:00 Yes 30mg QD Take 1 tablet (30 mg total) by mouth daily Hold on the days of dialysis. Hold also if SBP <110 or DBP <50.. [facility] rosuvastatin (CRESTOR) 20 MG tablet 2020-04-16 00:00:0 0 2021-04-16 23:59:00 Yes 20mg QD Take 1 tablet (20 mg total) by mouth nig htly. [facility] acetaminophen-codeine (TYLENOL #3) 300-30 mg per tablet 2020-04-16 00:00:00 2020-04-26 23:59:00 Yes 1{tbl} Take 1 tablet by mouth every 4 (four) hours as needed for Pain for up to 10 days. Max Daily Amount: 6 tablets [facility] carvediloL (COREG) 12.5 MG tablet 2020-04-16 00:00:00 2019 00:00:00 No 12.5mg Take 1 tablet (1 2.5 mg total) by mouth 2 (two) times daily with breakfast and dinner Hold for SBP <110 or DBP <50 or HR <50.. [facility] HYDROcodone-acetaminophen (NORCO 7.5-325) 7.5-325 mg per tab let 2020-03-02 15:16:06 2020-03-02 00:00:00 No 1{tbl} Take 1 tablet by mouth every 6 (six) hours as needed for Pain. [facility] carvediloL (COREG) 25 MG tablet 2020-03-02 09:39:56 00:00:00 No 25mg Take 25 mg by mouth 2 (two) times daily with br eakfast and dinner. [facility] HYDROcodone-acetaminophen (NORCO 7.5-325) 7.5-325 mg per tab let 2020-03-02 00:00:00 2020-04-16 00:00:00 No 1{tbl} Take 1 tablet by mouth every 6 (six) hours as needed for Pain. Max Daily Amount: 4 tablets [facility] carvediloL (COREG) 3.125 MG tablet 2020-03-02 00:00:00 23:59:00 No 3.125mg Take 1 tablet (3 .125 mg total) by mouth 2 (two) times daily with breakfast and dinner for 30 days. [facility] clindamycin (CLEOCIN) 300 MG capsule 2019-10-27 09:59: 51 2019-10-27 00:00:00 No 300mg [id number] Take 300 mg b y mouth 3 (three) [facility] (CATAPRES) 0.1 MG tablet 8 16:19:32 2019-10-22 00:00:00 No .1mg Take 0.1 mg by mouth as needed. [facility] cholestyramine (QUESTRAN) 4 gram PwPk packet 16:19:29 2019-10-22 00:00:00 No 1{packet} Take 1 packet by mouth 2 (two) times daily with breakfast and dinner. [facility] QUEtiapine (SEROQUEL) 25 MG tablet 2019-09-18 00:00:00 23:59:00 No 25mg Q.5D Take 1 tablet (2 5 mg total) by mouth 2 (two) times daily for 14 days Hold morning dose for sedation. [facility] insulin lispro (HUMALOG) 100 unit/mL injection 2 00:00:00 2019-10-22 00:00:00 No 0U Inject 0-12 Un its subcutaneously as needed (High blood sugar). [facility] traZODone (DESYREL) 100 MG tablet 2019-09-17 00:00:00 2019 23:59:00 No 100mg QD Take 1 tablet (100 mg total) by mouth ni ghtly for 14 days. [facility] QUEtiapine (SEROQUEL) 25 MG tablet 2019-09-17 00:00:00 00:00:00 No 25mg QD Take 1 tablet (25 mg total) by mouth nig htly for 14 days. [facility] traZODone (DESYREL) 100 MG tablet 2019-09-17 00:00:00 2019 00:00:00 No 100mg QD Take 1 tablet (100 mg total) by mouth ni ghtly for 10 days. [facility] QUEtiapine (SEROQUEL) 25 MG tablet 2019-09-17 00:00:00 00:00:00 No 25mg QD Take 1 tablet (25 mg total) by mouth nig htly for 10 days. [facility] insulin NPH (HUMULIN N) 100 unit/mL injection 20 04-09-18 00:00:00 2019-09-17 00:00:00 No 10U Inject 10 Unit s subcutaneously 2 (two) times daily before meals Do not give if Accu-Cheks less than 150. [facility] HYDROcodone-acetaminophen (NORCO 7.5-325) 7.5-325 mg per tab let 2019-09-03 00:00:00 2019-09-17 23:59:00 No 1{tbl} Take 1 tablet by mouth every 6 (six) hours as needed for up to 10 days. Max Daily Amount: 4 tablets [facility] NIFEdipine (ADALAT CC) 60 MG 24 hr tablet 09-03 00:00:00 2019-09-03 00:00:00 No 60mg QD Take 1 tablet (60 mg total) by mouth daily for 30 days. [facility]IF[facility] (ADALAT CC) 30 MG 24 hr tablet 09-03 00:00:2019-09-03 00:00:00 No 30mg QD Take 1 tablet (30 mg total) by mouth daily. [facility] traMADol (ULTRAM) 50 mg tablet 2019-09-02 15:12:10 2019-09-02 00 :00:00 No 50mg Take 50 mg by mouth every 6 (six) hours as needed for Pain. [facility] gabapentin (NEURONTIN) 100 MG capsule 2019-09-02 00:00 :00 2019-09-18 00:00:00 No 200mg Q.[id number] Take 2 capsules (200 mg total) by mouth 3 (three) times daily for 30 days. [facility] Levofloxacin (Levaquin) 500 Mg TABLET Levofloxacin (Levaquin ) 500 Mg TABLET 2019-08-26 09:40:00 Yes 500 Every Other Day [facility] Metronidazole (Flagyl) 500 Mg TABLET Metronidazole (Flagyl) 500 Mg TABLET 2019-08-26 09:40:00 Yes 500 Three Times A Day [facility] AZITHROmycin (ZITHROMAX) 250 MG tablet 2019-07-18 00:00:00 2019-08-20 23:59:00 No Take by mouth as directed.. [facility] metroNIDAZOLE (FLAGYL) 500 MG tablet 2019-07-11 13:52: 20 2019-07-11 00:00:00 No 500mg Q.5D Take 500 mg by mouth 2 (two) times daily . [facility] furosemide (LASIX) 80 MG tablet 2019-07-11 13:52:20 00:00:00 No 80mg Q.5D Take 80 mg by mouth 2 (two) times daily. [facility] ticagrelor (BRILINTA) 90 mg Tab tablet 2019-07-11 00:00:00 Yes 90mg Q.5D Take 1 tablet (90 mg total) by mouth 2 (two) times daily. [facility] melatonin 3 mg Tab tablet 2019-07-11 00:00:00 2019-09-18 00:00:0 0 No 3mg QD Take 1 tablet (3 mg total) by mouth nightly. [facility] clindamycin (CLEOCIN) 300 MG capsule 2019-07-11 00:00: 00 2019-07-15 23:59:00 No 300mg Take 1 capsule (300 mg total) by mouth every 8 (eight) hours for 4 days. [facility] Levofloxacin (Levaquin) 500 Mg TABLET Levofloxacin (Levaquin ) 500 Mg TABLET 2019-06-04 14:48:00 2019-08-26 00:00:00 No 500 Every Other Day [facility] Metronidazole (Flagyl) 500 Mg TABLET Metronidazole (Flagyl) 500 Mg TABLET 2019-06-04 14:46:00 2019-08-26 00:00:00 No 500 Three Times A Day [facility] Clopidogrel Bisulfate (Clopidogrel) 75 Mg TABLET Clopi dogrel Bisulfate (Clopidogrel) 75 Mg TABLET 2019-06-04 14:27:00 Yes 75 Daily [facility] Furosemide Furosemide 2019-06-04 14:27:00 Yes 80 Twi ce A Day [facility] Levothyroxine Sodium Levothyroxine Sodium 2019-06-04 14:27:00 Yes 175 Daily [facility] epoetin jyothi-epbx (RETACRIT) 10,000 unit/mL Soln injection 2018-09-18 00:00:00 2020-04-16 00:00:00 No anemia in chronic kidney disea se [id number] Inject 1 mL (10,000 Units total) subcutaneously 3 (three) times a week at bedtime. [facility] bisacodyl (DULCOLAX) 5 mg EC tablet 2018-09-17 00:00:00 Yes 10mg Take 2 tablets (10 mg total) by mouth daily as needed for Constipation. [facility] famotidine (PEPCID) 20 MG tablet 2018-09-17 00:00:00 Yes 20mg QD Take 1 tablet (20 mg total) by mouth daily. [facility] polyethylene glycol (GLYCOLAX) 17 gram packet 2018-09-17 00:00:0 0 Yes 17g QD Take 17 g by mouth daily. [facility] fluticasone (FLONASE) 50 mcg/actuation nasal spray 2018-09-17 00:00:00 2020-04-16 00:00:00 No 1{spray} QD 1 spray by Nasal ro s[place] daily. [facility] insulin NPH (HUMULIN N) 100 unit/mL injection 20 01-10-04 00:00:00 2019-09-03 00:00:00 No 13U Inject 13 Unit s subcutaneously 2 (two) times daily before meals Do not give if Accu-Cheks less than 150. [facility] HYDROcodone-acetaminophen (NORCO 5-325) 5-325 mg per tablet 2018-09-17 00:00:00 2019-09-03 00:00:00 No 1{tbl} Take 1 tablet by mouth every 6 (six) hours as needed (For severe pain). Max Daily Amount: 4 tablets [facility] heparin injection 5,000 units/mL for DVT prophylaxis/dialysi s lock/IV bolus 2018-09-17 00:00:00 2019-09-02 00:00:00 No 5000U Inject 1 mL (5,000 Units total) subcutaneously every 12 (twelve) hours. [facility] insulin lispro (HUMALOG) 100 unit/mL injection 2 00:00:2019-09-02 00:00:00 No 0U Inject 0-12 Un its subcutaneously as needed (High blood sugar). [facility] insulin lispro (HUMALOG) 100 unit/mL injection 2 00:00:00 2019-09-02 00:00:00 No 0U Inject 0-4 Uni ts subcutaneously every night as needed (High blood sugar). [facility] rosuvastatin (CRESTOR) 10 MG tablet 2018-07-28 00:00:0 0 2019-10-27 00:00:00 No 10mg QD Take 1 tablet (10 mg total) by mouth timoteo fay. [facility] NIFEdipine (ADALAT CC) 30 MG 24 hr tablet 07-28 00:00:00 2019-09-02 00:00:00 No 30mg QD Take 1 tablet (30 mg total) by mouth daily. [facility] clopidogrel (PLAVIX) 75 mg tablet 2018-07-28 00:00:00 2018 00:00:00 No 75mg QD Take 1 tablet (75 mg total) by mouth timoteo ly. [facility] docusate sodium (COLACE) 100 MG capsule 2018-07-27 00:00:00 Yes 100mg Q.5D Take 1 capsule (100 mg total) by mouth 2 (two) times daily. [facility] carvedilol (COREG) 3.125 MG tablet 2018-07-27 00:00:00 202 00:00:00 No 3.125mg Take 1 tablet (3 .125 mg total) by mouth 2 (two) times daily with breakfast and dinner. [facility] cilostazol (PLETAL) 50 MG tablet 2018-07-27 00:00:00 2019-07 23:59:00 No 50mg Q.5D Take 1 tablet (50 mg total) by mouth 2 (two) ti mes daily. [facility] nitroglycerin (NITROSTAT) 0.4 MG SL tablet 07-27 00:00:00 2019-07-27 23:59:00 No Put 1 pill und er tongue every 5min as needed for chest pain.No more than 3 doses in 15min.Call 911 if pain is unrelieved. [facility] cholecalciferol, vitamin D3, (VITAMIN D3) 2,000 unit Cap 2014-01-02 00:00:00 2019-10-22 00:00:00 No After you have finished the prescription strength vitamin D (around 01/02/14), start taking pylw-iwh-juwnsjz vitamin D3 2000 units daily.. [facility] Calcium Acetate Calcium Acetate Yes 667 Three Ti mes A Day [facility] Carvedilol Carvedilol Yes 3.125 Twice A Day [facility] Cilostazol Cilostazol Yes 50 Daily [facility] Docusate Sodium Docusate Sodium Yes 100 [facility] Hydrocortisone (Anusol-Hc) 30 Gm CREAM..G. Hydrocortis one (Anusol-Hc) 30 Gm CREAM..G. Yes 30 Twice A Day [facility] Melatonin Melatonin Yes 3 [facility] Nifedipine (Procardia Xl) 30 Mg TAB.ER.24 Nifedipine ( Procardia Xl) 30 Mg TAB.ER.24 Yes [address] [facility] [place] [place] Oxycodone Hcl/Acetaminophen (Oxycodone-Acetaminophen 5 -325) 1 Each TABLET Oxycodone Hcl/Acetaminophen (Oxycodone-Acetaminophen 5-325) 1 Each TABLET Yes [facility] Clopidogrel Bisulfate (Clopidogrel) 75 Mg TABLET Clopi dogrel Bisulfate (Clopidogrel) 75 Mg TABLET 2019-06-04 00:00:00 No 75 Daily [facility] Furosemide Furosemide 2019-06-04 00:00:00 No 40 Twi ce A Day [facility] [facility] Furosemide Furosemide 2019-06-04 00:00:00 No 80 Twi ce A Day [facility] Levothyroxine Sodium Levothyroxine Sodium 2019-06-04 00:00:00 No 175 Daily [facility] Levothyroxine Sodium (Synthroid) 112 Mcg TABLET Levoth yroxine Sodium (Synthroid) 112 Mcg TABLET 2018-11-08 00:00:00 No 112 Today At 6:30AM [facility] Calcium Acetate Calcium Acetate 2018-11-07 00:00:00 No [facility] Furosemide (Lasix) 40 Mg TABLET Furosemide (Lasix) 40 Mg TABLET 2018-11-07 00:00:00 No 80 Twice A Day [facility] Lisinopril Lisinopril 2018-11-07 00:00:00 No Twi ce A Day [facility] Lisinopril Lisinopril 2018-11-07 00:00:00 No 40 Twi ce A Day [facility] Vital Signs Vital Name Observation Time Observation Value Comments Source Systolic blood pressure 2020-04-16 15:00:00 156 mm[Hg] [facility] Diastolic blood pressure 2020-04-16 15:00:00 67 mm[Hg] [facility] Heart rate 2020-04-16 15:00:00 82 /min [facility] Body temperature 2020-04-16 15:00:00 36.17 Thalia [facility] Respiratory rate 2020-04-16 15:00:00 18 /min [facility] Oxygen saturation in Arterial blood by Pulse oximetry 2019-07 002 15:00:00 92 [facility] 2020-04-16 11:15:00 86 kg [facility] BMI 2020-04-16 11:15:00 30.60 kg/m2 [facility] Body height 2020-04-14 12:55:00 167.6 cm [facility] Body Temperature 2020-04-07 17:07:00 98.1 [degF] [facility] BMI (Body Mass Index) 2020-04-05 23:13:00 32.8 kg/m2 [facility] Weight 2020-04-05 14:42:00 203 [lb_av] [facility] Procedures Procedure Date / Time Performed Performing Clinician Sour e RHYTHM STRIP - SCAN 2020-04-19 11:13:10 Provider, Default Scanni ng [facility] REPORT OF PROCEDURE - ENDOSCOPY SCAN 2020-04-19 11:13:05 Pro vider, Default Scanning [facility] POCT-GLUCOSE METER 2020-04-16 11:59:00 Helder Scott [facility] POCT-GLUCOSE METER 2020-04-16 07:40:00 Helder Scott [facility] BASIC METABOLIC PANEL (7) 2020-04-16 04:15:00 Cassidy Cavanaugh [facility] MAGNESIUM 2020-04-16 04:15:00 JonathanCassidy thomas [facility] PHOSPHORUS 2020-04-16 04:15:00 JonathanCassidy thomas [facility] IRON, TIBC, % SAT. (WITHOUT FERRITIN) 2020-04-16 04:15:00 Helder Miller [facility] FERRITIN 2020-04-16 04:15:00 Helder Scott [facility] VITAMIN B12 AND FOLATE 2020-04-16 04:15:00 Helder Scott [facility] TSH/FREE T4 IF INDICATED 2020-04-16 04:15:00 Helder Scott [facility] HEMOGLOBIN A1C 2020-04-16 04:15:00 Helder Scott [facility] LIPID PANEL 2020-04-16 04:15:00 Helder Scott [facility] HEPATIC FUNCTION PANEL 2020-04-16 04:15:00 Helder Scott [facility] T4, FREE 2020-04-16 04:15:00 Helder Scott [facility] CBC W/PLT COUNT & AUTO DIFFERENTIAL 2020-04-16 04:15[facility]SE [facility] 2020-04-15 20:54:00 Helder Scott [facility] POCT-GLUCOSE METER 2020-04-15 16:35:00 Helder Scott [facility] POCT-GLUCOSE METER 2020-04-15 11:13:00 Helder Scott [facility] POCT-GLUCOSE METER 2020-04-15 06:10:00 [facility] BASIC METABOLIC PANEL (7) 2020-04-15 04:16:00 Cassidy Cavanaugh [facility] MAGNESIUM 2020-04-15 04:16:00 Cassidy Cavanaugh [facility] PHOSPHORUS 2020-04-15 04:16:00 Cassidy Cavanaugh [facility] TROPONIN I 2020-04-15 04:16:00 Cassidy Cavanaugh [facility] CBC W/PLT COUNT & AUTO DIFFERENTIAL 2020-04-15 04:16:00 Jamey Cavanaugh [facility] TROPONIN I 2020-04-15 00:24:00 Pam Snyder [facility] POCT-GLUCOSE METER 2020-04-15 00:24:00 [facility] HEPATITIS B SURFACE ANTIGEN 2020-04-14 20:15:00 Blaze Justin Ana wen [facility] POCT-GLUCOSE METER 2020-04-14 19:10:00 Pam Snyder [facility] SARS-COV2/RT-PCR ([facility]) 2020-04-14 18:29:00 Pam Anderson [facility] POCT-GLUCOSE METER 2020-04-14 18:15:00 Pam Snyder [facility] TROPONIN I 2020-04-14 16:25:00 Pam Snyder [facility] POTASSIUM 2020-04-14 16:25:00 Pam Snyder [facility] XR CHEST 1 VIEW PORTABLE/BEDSIDE 2020-04-14 16:05:00 Pam Snyder [facility] XR SPINE THORACIC 2 VIEWS 2020-04-14 16:05:00 Pam Snyder [facility] XR PELVIS 1 OR 2 VIEWS 2020-04-14 16:05:00 Pam Snyder [facility] XR FEMUR 2 VIEWS LEFT 2020-04-14 16:05:00 Pam Snyder [facility] XR KNEE LEFT COMPLETE (4 VIEWS) 2020-04-14 16:05:00 Jessica Snyder [facility] XR ANKLE 3 VIEWS LEFT 2020-04-14 16:05:00 Pam Snyder [facility] ECG 12-LEAD 2020-04-14 15:02:43 Unknown, Hl7 Doctor [facility] BASIC METABOLIC PANEL (7) 2020-04-14 14:53:00 [facility] 2020-04-14 14:53:00 Pam Snyder [facility] TROPONIN I 2020-04-14 14:53:00 Pam Snyder [facility] B-TYPE NATRIURETIC FACTOR (BNP) 2020-04-14 14:53:00 Jessica Snyder [facility] CREATINE KINASE (CK) 2020-04-14 14:53:00 Pam Snyder [facility] CBC W/PLT COUNT & AUTO DIFFERENTIAL 2020-04-14 14:53:00 Pam Urena [facility] REPORT OF PROCEDURE - ENDOSCOPY SCAN 2020-03-05 09:31:26 Pro vider, Default Scanning [facility] TRANSFUSION SERVICE REPORT - SCAN 2020-03-03 18:01:06 Provid er, Default Scanning [facility] RHYTHM STRIP - SCAN 2020-03-03 11:33:57 Provider, Default Scanni [facility] PREPARE LEUKO-REDUCED RBC 2020-03-02 23:54:00 Jr Lala [facility] TRANSFUSION SERVICE REPORT - SCAN 2020-03-02 18:21:14 [facility] er, Default Scanning [facility] POCT-GLUCOSE METER 2020-03-02 16:25:00 [facility] POCT-GLUCOSE METER 2020-03-02 11:34:00 [facility] POCT-GLUCOSE METER 2020-03-02 07:58:00 [facility] BASIC METABOLIC PANEL (7) 2020-03-02 04:19:00 [facility] 2020-03-02 04:19:00 Karen Jade [facility] PHOSPHORUS 2020-03-02 04:19:00 Karen Jade Karin [facility] CBC W/PLT COUNT & AUTO DIFFERENTIAL 2020-03-02 04:19:00 Jr Berry [facility] POCT-GLUCOSE METER 2020-03-01 21:58:00 Jr Lala [facility] TRANSFUSE LEUKO-REDUCED RED BLOOD CELLS 2020-03-01 18:29:04 Jr Lala [facility] TRANSFUSION SERVICE REPORT - SCAN 2020-03-01 18:00:23 Provid er, Default Scanning [facility] POCT-GLUCOSE METER 2020-03-01 15:24:00 Jr Lala [facility] POCT-GLUCOSE METER 2020-03-01 13:31:00 Jr Lala [facility] HEMODIALYSIS INPATIENT 2020-03-01 11:00:10 Courtney Burton [facility] IRON, SERUM 2020-03-01 10:50:00 Jr Lala [facility] FERRITIN 2020-03-01 10:50:00 Jr Lala [facility] TYPE AND SCREEN, AUTOMATED 2020-03-01 10:40:00 Jr Lala [facility] POCT-GLUCOSE METER 2020-03-01 07:18:00 Jr Lala [facility] BASIC METABOLIC PANEL (7) 2020-03-01 04:09:00 Karen Jade [facility] MAGNESIUM 2020-03-01 04:09:00 Karen Jade Karin [facility] PHOSPHORUS 2020-03-01 04:09:00 Karen Jade [facility] RETICULOCYTE COUNT 2020-03-01 04:09:00 Jr Lala [facility] CBC W/PLT COUNT & AUTO DIFFERENTIAL 2020-03-01 04:09:00 Jr Berry [facility] PREPARE RBC 2020-02-29 23:54:00 Deandra Madera [facility] POCT-GLUCOSE METER 2020-02-29 20:45:00 Jr Lala [facility] TRANSFUSION SERVICE REPORT - SCAN 2020-02-29 18:00:43 Provid er, Default Scanning [facility] POCT-GLUCOSE METER 2020-02-29 16:52:00 Jr Lala [facility] POCT-GLUCOSE METER 2020-02-29 11:34:00 Jr Lala [facility] POCT-GLUCOSE METER 2020-02-29 07:53:00 Jr Lala [facility] BASIC METABOLIC PANEL (7) 2020-02-29 05:03:00 Karen Jade [facility] MAGNESIUM 2020-02-29 05:03:00 Karen Jade [facility] PHOSPHORUS 2020-02-29 05:03:00 Kalie Karen [facility] CBC W/PLT COUNT & AUTO DIFFERENTIAL 2020-02-29 05:03:00 Jr Berry [facility] POCT-GLUCOSE METER 2020-02-28 20:38:00 Jr Lala [facility] TRANSFUSION SERVICE REPORT - SCAN 2020-02-28 18:00:38 Provid er, Default Scanning [facility] POCT-GLUCOSE METER 2020-02-28 17:05:00 Jr Lala [facility] POCT-GLUCOSE METER 2020-02-28 13:17:00 Jr Lala [facility] POCT-GLUCOSE METER 2020-02-28 10:16:00 Jr Lala [facility] TRANSFUSE LEUKO-REDUCED RED BLOOD CELLS 2020-02-28 09:33:41 Al Tate [facility] HEMODIALYSIS INPATIENT 2020-02-28 08:39:15 Nalini Nelson [facility] BASIC METABOLIC PANEL (7) 2020-02-28 04:56:00 Karen Jade [facility] MAGNESIUM 2020-02-28 04:56:00 Karen Jade [facility] PHOSPHORUS 2020-02-28 04:56:00 Jade, Karen [facility] CBC W/PLT COUNT & AUTO DIFFERENTIAL 2020-02-28 04:56:00 Karen Jade [facility] POCT-GLUCOSE METER 2020-02-27 21:44:00 Jr Lala [facility] TRANSFUSION SERVICE REPORT - SCAN 2020-02-27 18:01:10 Provid er, Default Scanning [facility] POCT-GLUCOSE METER 2020-02-27 15:21:00 [facility] TRANSFUSE LEUKO-REDUCED RED BLOOD CELLS 2020-02-27 13:22:23 Annalisa Braga [facility] POCT-GLUCOSE METER 2020-02-27 11:34:00 [facility] POCT-GLUCOSE METER 2020-02-27 10:11:00 [facility] POCT-GLUCOSE METER 2020-02-27 07:38:00 [facility] PREPARE LEUKO-REDUCED RBC 2020-02-27 07:09:00 Annalisa Braga I [facility] BASIC METABOLIC PANEL (7) 2020-02-27 03:40:00 Karen Jade [facility] MAGNESIUM 2020-02-27 03:40:00 Kalie Karen [facility] PHOSPHORUS 2020-02-27 03:40:00 Karen Jade [facility] CBC W/PLT COUNT & AUTO DIFFERENTIAL 2020-02-27 03:40:00 Kalie Karen [facility] POCT-GLUCOSE METER 2020-02-26 19:04:00 [facility] FL FLUORO NON-SPECIFIC UP TO 1 HOUR 2020-02-26 17:15:00 Deandra Madera [facility] ORIF,FEMUR 2020-02-26 14:45:00 Deandra Madera [facility] POCT-GLUCOSE METER 2020-02-26 13:18:00 [facility] POCT-GLUCOSE METER 2020-02-26 07:27:00 [facility] TYPE AND SCREEN, AUTOMATED 2020-02-26 07:24:00 Goyo Hajibobrit [facility] BASIC METABOLIC PANEL (7) 2020-02-26 03:05:00 JadeKaren snowden [facility] MAGNESIUM 2020-02-26 03:05:00 [facility] 2020-02-26 03:05:00 Jade Karen [facility] CBC W/PLT COUNT & AUTO DIFFERENTIAL 2020-02-26 03:05:00 Jade Karen [facility] HEMODIALYSIS INPATIENT 2020-02-26 02:14:00 Courtney Burton [facility] POCT-GLUCOSE METER 2020-02-26 01:35:00 [facility] HEPATITIS B SURFACE ANTIGEN 2020-02-25 21:03:00 Pool Hamilton [facility] BASIC METABOLIC PANEL (7) 2020-02-25 21:03:00 Maged Garcia [facility] ECG 12-LEAD 2020-02-25 17:40:20 Unknown, Hl7 Doctor [facility] SARS-COV2/RT-PCR ([facility]) 2020-02-25 17:31:00 SamuelSa alia [facility] PROTHROMBIN TIME/INR 2020-02-25 17:24:00 Saad Lopez [facility] BASIC METABOLIC PANEL (7) 2020-02-25 17:23:00 Saad Lopez [facility] CBC W/PLT COUNT & AUTO DIFFERENTIAL 2020-02-25 17:23:[address] Solitario Lopez [facility] PLACE NEEDLE IN VEIN 2020-02-25 16:23:26 Saad Lopez [facility] CRITICAL CARE 2020-02-25 16:23:26 Saad Lopez [facility] ED ECG INTERPRETATION 2020-02-25 16:23:26 Saad Lopez [facility] ECG 12-LEAD 2020-02-25 16:17:39 Unknown, Hl7 Doctor [facility] XR PELVIS 1 OR 2 VIEWS 2020-02-25 16:08:00 Saad Lopez [facility] XR FEMUR 2 VIEWS LEFT 2020-02-25 16:08:00 Saad Lopez [facility] POCT-GLUCOSE METER 2019-10-27 16:32:00 Amarjit, Juan J Concepcion [facility] POCT-GLUCOSE METER 2019-10-27 11:18:00 Amarjit, Juan J Concepcion [facility] POCT-GLUCOSE METER 2019-10-26 21:49:00 Amarjit, Juan J Concepcion [facility] POCT-GLUCOSE METER 2019-10-26 16:54:00 Amarjit, Juan J Concepcion [facility] POCT-GLUCOSE METER 2019-10-26 12:16:00 Amarjit, Juan J Concepcion [facility] POCT-GLUCOSE METER 2019-10-26 08:13:00 Amarjit, Juan J Concepcion [facility] POCT-GLUCOSE METER 2019-10-25 21:18:00 Amarjit, Juan J Concepcion [facility] TRANSFUSION SERVICE REPORT - SCAN 2019-10-25 17:50:40 Provid er, Default Scanning [facility] POCT-GLUCOSE METER 2019-10-25 17:24:00 Amarjit, Juan J Concepcion [facility] POCT-GLUCOSE METER 2019-10-25 12:57:00 Amarjit, Juan J Concepcion [facility] POCT-GLUCOSE METER 2019-10-25 11:13:00 Amarjit, Juan J Concepcion [facility] POCT-GLUCOSE METER 2019-10-25 08:24:00 Amarjit, Juan J Concepcion [facility] HEMODIALYSIS INPATIENT 2019-10-25 08:17:49 Nalini Nelson [facility] BASIC METABOLIC PANEL (7) 2019-10-25 07:57:00 Amarjit, Juan J Concepcion CH I [facility] CBC W/PLT COUNT & AUTO DIFFERENTIAL 2019-10-25 07:57:00 Amarjit, [facility] POCT-GLUCOSE METER 2019-10-24 20:33:00 Amarjit, [facility] POCT-GLUCOSE METER 2019-10-24 18:10:00 Amarjit, [facility] VANCOMYCIN LEVEL, RANDOM 2019-10-24 17:51:00 Shanelle Manzanares [facility] POCT-GLUCOSE METER 2019-10-24 12:52:00 Amarjit, [facility] TISSUE EXAM 2019-10-24 11:36:00 Feliciano Wins[facility] AMPUTATION,FOOT 2019-10-24 10:41:00 [facility] POT[facility]SIUM 2019-10-24 09:48:00 Amarjit, [facility] POCT-GLUCOSE METER 2019-10-24 06:41:00 Amarjit, [facility] TYPE AND SCREEN, AUTOMATED 2019-10-24 04:21:00 Goyo Haji Ab imbola [facility] POCT-GLUCOSE METER 2019-10-23 21:26:00 Amarjit, [facility] POCT-GLUCOSE METER 2019-10-23 16:36:00 Amarjit, [facility] VANCOMYCIN LEVEL, RANDOM 2019-10-23 14:00:00 Shanelle Manzanares [facility] HEPATITIS B SURFACE ANTIGEN 2019-10-23 14:00:00 Amarjit, [facility] POCT-GLUCOSE METER 2019-10-23 12:04:00 Amarjit, [facility] HEMODIALYSIS INPATIENT 2019-10-23 07:57:22 Nalini Nelson [facility] PT/APTT 2019-10-23 05:04:00 Juan J Mai [facility] BASIC METABOLIC PANEL (7) 2019-10-23 05:04:00 Juan J Mai [facility] CBC W/PLT COUNT & AUTO DIFFERENTIAL 2019-10-23 05:04:00 [facility] POCT-GLUCOSE METER 2019-10-22 22:20:00 Juan J Mai [facility] POCT-GLUCOSE METER 2019-10-22 17:47:00 Juan J Mai [facility] HEMOGLOBIN A1C 2019-10-22 17:29:00 [facility] 2019-10-22 17:05:42 Unknown, Hl7 Doctor [facility] BASIC METABOLIC PANEL (7) 2019-10-22 16:59:00 Kate Reyes [facility] MAGNESIUM 2019-10-22 16:59:00 Kate Reyes [facility] PHOSPHORUS 2019-10-22 16:59:00 [facility] REPORT OF PROCEDURE - ENDOSCOPY SCAN 2019-09-22 10:10:41 Pro vider, Default Scanning [facility] RHYTHM STRIP - SCAN 2019-09-22 10:10:32 Provider, Default Scanni [facility] POCT-GLUCOSE METER 2019-09-19 08:06:00 Krause, [facility] POCT-GLUCOSE METER 2019-09-18 21:00:00 Krause, [facility] POCT-GLUCOSE METER 2019-09-18 16:49:00 Nelida, [facility] HEMODIALYSIS INPATIENT 2019-09-18 15:25:12 Courtney Burton [facility] POCT-GLUCOSE METER 2019-09-18 11:36:00 Krause, [facility] POCT-GLUCOSE METER 2019-09-18 07:37:00 Krause, [facility] POCT-GLUCOSE METER 2019-09-17 22:11:00 Krause, [facility] POCT-GLUCOSE METER 2019-09-17 16:27:00 Krause, [facility] POCT-GLUCOSE METER 2019-09-17 07:42:00 Krause, [facility] POCT-GLUCOSE METER 2019-09-16 20:29:00 Krause, [facility] POCT-GLUCOSE METER 2019-09-16 17:15:00 Krause, [facility] POCT-GLUCOSE METER 2019-09-16 11:21:00 Krause, [facility] HEMODIALYSIS INPATIENT 2019-09-16 09:43:52 Courtney Burton [facility] BASIC METABOLIC PANEL (7) 2019-09-16 04:13:00 Jessica Castellano [facility] CBC W/PLT COUNT & AUTO DIFFERENTIAL 2019-09-16 04:13:00 Jessica Castellano [facility] POCT-GLUCOSE METER 2019-09-15 21:13:00 Krause, [facility] POCT-GLUCOSE METER 2019-09-15 18:06:00 Krause, [facility] POCT-GLUCOSE METER 2019-09-15 12:01:00 Krause, [facility] POCT-GLUCOSE METER 2019-09-15 08:05:00 Robi Redman [facility] POCT-GLUCOSE METER 2019-09-14 20:38:00 Robi Redman [facility] POCT-GLUCOSE METER 2019-09-14 16:31:00 Robi Redman [facility] POCT-GLUCOSE METER 2019-09-14 11:26:00 Robi Redman [facility] POCT-GLUCOSE METER 2019-09-14 05:49:00 Krause, [facility] BASIC METABOLIC PANEL (7) 2019-09-13 15:08:00 Courtney Burton [facility] HEMOGLOBIN AND HEMATOCRIT 2019-09-13 15:08:00 Courtney Burton [facility] PHOSPHORUS 2019-09-13 15:08:00 Courtney Burton [facility] POCT-GLUCOSE METER 2019-09-13 11:14:00 Krause, [facility] POCT-GLUCOSE METER 2019-09-13 06:58:00 Krause, [facility] HEPATITIS B SURFACE ANTIGEN 2019-09-13 04:47:00 Abimbola Burton Vern [facility] POCT-GLUCOSE METER 2019-09-12 20:45:00 Krause, [facility] POCT-GLUCOSE METER 2019-09-12 16:36:00 Krause, [facility] POCT-GLUCOSE METER 2019-09-12 12:15:00 Krause, [facility] POCT-GLUCOSE METER 2019-09-12 07:12:00 Krause, [facility] POCT-GLUCOSE METER 2019-09-11 21:50:00 Krause, [facility] HEMODIALYSIS INPATIENT 2019-09-11 15:34:03 Courtney Burton [facility] POCT-GLUCOSE METER 2019-09-11 07:43:00 Krause, [facility] POCT-GLUCOSE METER 2019-09-10 21:34:00 Krause, [facility] POCT-GLUCOSE METER 2019-09-10 18:08:00 Krause, [facility] RHYTHM STRIP - SCAN 2019-09-10 14:00:55 Provider, Farhad Andino [facility] POCT-GLUCOSE METER 2019-09-10 11:51:00 Krause, [facility] POCT-GLUCOSE METER 2019-09-10 08:52:00 Krause, [facility] BASIC METABOLIC PANEL (7) 2019-09-10 04:33:00 Krause, [facility] PHOSPHORUS 2019-09-10 04:33:00 Krause, [facility] POCT-GLUCOSE METER 2019-09-09 20:35:00 Krause, [facility] HEMODIALYSIS INPATIENT 2019-09-09 12:23:00 Courtney Burton [facility] RHYTHM STRIP - SCAN 2019-09-09 10:31:32 Farhad Gonzalez [facility] POCT-GLUCOSE METER 2019-09-09 10:08:00 Krause, [facility] POCT-GLUCOSE METER 2019-09-08 20:30:00 Krause, [facility] POCT-GLUCOSE METER 2019-09-08 16:26:00 Krause, [facility] POCT-GLUCOSE METER 2019-09-08 12:11:00 Krause, [facility] POCT-GLUCOSE METER 2019-09-08 08:29:00 Krause, [facility] PHOSPHORUS 2019-09-08 05:37:00 Rah Boyd [facility] POCT-GLUCOSE METER 2019-09-07 21:26:00 Rah Boyd CH I [facility] POCT-GLUCOSE METER 2019-09-07 18:10:00 Rah Boyd CH, I [facility] PHOSPHORUS 2019-09-07 04:27:00 Rah Boyd [facility] BASIC METABOLIC PANEL (7) 2019-09-07 04:27:00 Rah Boyd [facility] MAGNESIUM 2019-09-07 04:27:00 Rah Boyd [facility] CBC W/PLT COUNT & AUTO DIFFERENTIAL 2019-09-07 04:27:00 Rah Boyd [facility] POCT-GLUCOSE METER 2019-09-06 21:23:00 Rah Boyd [facility] POCT-GLUCOSE METER 2019-09-06 12:22:00 Rah Boyd [facility] POCT-GLUCOSE METER 2019-09-06 07:22:00 Rah Boyd [facility] BASIC METABOLIC PANEL (7) 2019-09-06 04:08:00 Rah Boyd bita [facility] MAGNESIUM 2019-09-06 04:08:00 Rah Boyd [facility] PHOSPHORUS 2019-09-06 04:08:00 Rah Boyd [facility] CBC W/PLT COUNT & AUTO DIFFERENTIAL 2019-09-06 04:08:00 Rah Boyd [facility] POCT-GLUCOSE METER 2019-09-05 22:45:00 Rah [facility] BRAIN WITHOUT IV CONTRAST 2019-09-05 17:42:00 Kaitlyn Silver [facility] XR CHEST PA OR AP 1 VIEW IN DEPT. 2019-09-05 17:27:00 Rhona Cotton [facility] CRITICAL CARE 2019-09-05 17:05:15 Rhona Silver [facility] URINE CULTURE 2019-09-05 16:38:00 Iesha Palomo [facility] URINALYSIS W/ REFLEX URINE CULTURE 2019-09-05 16:38:00 Ole Palomo [facility] BASIC METABOLIC PANEL (7) 2019-09-05 15:32:00 Iesha Palomo [facility] HEPATIC FUNCTION PANEL 2019-09-05 15:32:00 Iesha Palomo [facility] AMYLASE 2019-09-05 15:32:00 Iesha Palomo [facility] LIPASE 2019-09-05 15:32:00 Iesha Palomo [facility] PT/APTT 2019-09-05 15:32:00 Iesha Palomo [facility] TROPONIN I 2019-09-05 15:32:00 Iesha Palomo [facility] CBC W/PLT COUNT & AUTO DIFFERENTIAL 2019-09-05 15:32:00 Iesha Palomo [facility] ECG 12-LEAD 2019-09-05 15:17:39 Unknown, Hl7 Doctor [facility] Computed tomography of brain without radiopaque contrast 00:00:00 KODY COLE [facility] Computed tomography of cervical spine without contrast 09-04 00:00:00 KODY COLE [facility] Computed tomography of lumbar spine without contrast 2019-08 00:00:00 KODY COLE [facility] Computed tomography of pelvis without contrast 2019-09-04 00 :00:00 KODY COLE [facility] CT maxillofacial area wo contrast 2019-09-04 00:00:00 ÁLVARO ALEMAN [facility] POCT-GLUCOSE METER 2019-09-03 17:27:00 [place] Hajio Matthias C [facility] POCT-GLUCOSE METER 2019-09-03 11:25:00 Goyo Haji Matthias [facility] POCT-GLUCOSE METER 2019-09-03 07:38:00 Goyo Haji Matthias [facility] BASIC METABOLIC PANEL (7) 2019-09-03 05:39:00 Jessica Castellano [facility] POCT-GLUCOSE METER 2019-09-02 20:30:00 [place] Hajio Matthias [facility] POCT-GLUCOSE METER 2019-09-02 18:16:00 Goyo Haji Matth[facility] HEMODIALYSIS INPATIENT 2019-09-02 17:42:00 Courtney Burton [facility] BASIC METABOLIC PANEL (7) 2019-09-02 13:05:00 Goyo Haji Dottie mbola [facility] POCT-GLUCOSE METER 2019-09-02 11:09:00 Goyo Haji Matthias C [facility] POCT-GLUCOSE METER 2019-09-02 07:32:00 Maria Luisacandi Goyo Matthias C [facility] POCT-GLUCOSE METER 2019-09-02 00:12:00 Corey Hajisamra Matthias [facility] POCT-GLUCOSE METER 2019-09-01 21:41:00 Maria LuisaGoyo christopher Matthias C [facility] POCT-GLUCOSE METER 2019-09-01 20:23:00 FelicianoGoyo Matthias C [facility] POCT-GLUCOSE METER 2019-09-01 18:39:00 Maria LuisaGoyo christopher Matthias C [facility] POCT-GLUCOSE METER 2019-09-01 18:13:00 Maria LuisaGoyo christopher Matthias C [facility] POCT-GLUCOSE METER 2019-09-01 17:18:00 Maria LuisaGoyo christopher Matthias C HI [facility] POCT-GLUCOSE METER 2019-09-01 12:07:00 Maria LuisaGoyo christopher Matthias C HI [facility] POCT-GLUCOSE METER 2019-09-01 07:25:00 Goyo Haji Matthias C HI [facility] POCT-GLUCOSE METER 2019-08-31 22:05:00 Goyo Haji Matthias C HI [facility] POCT-GLUCOSE METER 2019-08-31 17:36:00 Goyo Haji Matthias C HI [facility] POCT-GLUCOSE METER 2019-08-31 11:14:00 Goyo Haji Matthias C HI [facility] POCT-GLUCOSE METER 2019-08-31 09:20:00 Goyo Hajimbola C HI [facility] POCT-GLUCOSE METER 2019-08-31 04:27:00 Goyo Haji Matthias C HI [facility] POCT-GLUCOSE METER 2019-08-30 21:53:00 Goyo Hajimbola C HI [facility] TRANSFUSION SERVICE REPORT - SCAN 2019-08-30 17:51:03 Provid er, Default Scanning [facility] POCT-GLUCOSE METER 2019-08-30 16:21:00 Goyo Haji [facility] POCT-GLUCOSE METER 2019-08-30 13:40:00 Goyo Haji [facility] HEMODIALYSIS INPATIENT 2019-08-30 11:55:00 [facility]ish [facility] BASIC METABOLIC PANEL (7) 2019-08-30 04:54:00 Jessica Castellano Lazaro sherie [facility] PHOSPHORUS 2019-08-30 04:54:00 Jay [facility] FERRITIN 2019-08-30 04:54:00 Jay [facility] IRON, TIBC, % SAT. (WITHOUT FERRITIN) 2019-08-30 04:54:00 Neeraj larry [facility] CBC W/PLT COUNT & AUTO DIFFERENTIAL 2019-08-30 04:54:00 Jessica Castellano [facility] POCT-GLUCOSE METER 2019-08-29 22:22:00 Goyo Haji [facility] POCT-GLUCOSE METER 2019-08-29 17:49:00 Goyo Haji [facility] POCT-GLUCOSE METER 2019-08-29 15:17:00 Goyo Haji [facility] TISSUE EXAM 2019-08-29 14:09:00 [facility] AMP[facility],FOOT 2019-08-29 13:15:00 [facility] RRL CRITICAL LABS (ABG,NA,K,H&H,GLUCOSE) 2019-08-29 13:13:46 Geri Louie [facility] POTASSIUM-STAT LAB 2019-08-29 13:13:46 Geri oLuie [facility] TYPE AND SCREEN, AUTOMATED 2019-08-29 12:36:00 JacyRolanGeri Khurram [facility] BASIC METABOLIC PANEL (7) 2019-08-29 11:28:00 Kathy Hassan [facility] POCT-HEMOGLOBIN METER 2019-08-29 10:25:00 FelicianoAngelesseven Dottiemichelleol a [facility] POCT-GLUCOSE METER 2019-08-29 10:22:00 Goyo Hajiola C [facility] CT of abdomen and pelvis without contrast 2019-08-24 00:00:00 [facility] REPORT OF PROCEDURE - ENDOSCOPY SCAN 2019-08-18 17:20:46 Pro vider, Default Scanning [facility] RHYTHM STRIP - SCAN 2019-08-18 09:23:49 Provider, Default Scandaniel barone [facility] POCT-GLUCOSE METER 2019-08-15 11:12:00 Leeanna [facility] POCT-GLUCOSE METER 2019-08-15 08:04:00 Leeanna [facility] BASIC METABOLIC PANEL (7) 2019-08-15 03:42:00 Leeanna Ricky I [facility] HEMOGLOBIN A1C 2019-08-15 03:42:00 Leeanna [facility] HEMODIALYSIS INPATIENT 2019-08-15 00:08:48 Omar [facility] POCT-GLUCOSE METER 2019-08-14 23:34:00 Leeanna [facility] HEPATITIS B SURFACE ANTIGEN 2019-08-14 20:43:00 Omar [facility] POCT-GLUCOSE METER 2019-08-14 18:05:00 Leeanna [facility] BLOOD GAS, VENOUS 2019-08-14 16:29:00 Yolanda Stubbs [facility] B-TYPE NATRIURETIC FACTOR (BNP) 2019-08-14 16:29:00 Lauren Stubbs [facility] BLOOD CULTURE 2019-08-14 16:20:00 Yolanda Stubbs [facility] XR CHEST 1 VIEW PORTABLE/BEDSIDE 2019-08-14 15:48:00 Lewis Palomo [facility] BLOOD CULTURE 2019-08-14 15:40:00 Yolanda Stubbs [facility] BASIC METABOLIC PANEL (7) 2019-08-14 15:40:00 Iesha Palomo [facility] MAGNESIUM 2019-08-14 15:40:00 Iesha Palomo [facility] LACTIC ACID, VENOUS 2019-08-14 15:40:00 Iesha Palomo I [facility] C-REACTIVE PROTEIN 2019-08-14 15:40:00 Yolanda Stubbs [facility] HEPATIC FUNCTION PANEL 2019-08-14 15:40:00 Deonna Stubbsanne [facility] PT/APTT 2019-08-14 15:40:00 Yolanda Stubbs [facility] CREATINE KINASE (CK) 2019-08-14 15:40:00 Yolanda Stubbs I [facility] TROPONIN I 2019-08-14 15:40:00 Yolanda Stubbs [facility] CBC W/PLT COUNT & AUTO DIFFERENTIAL 2019-08-14 15:40:00 [facility] 12-LEAD 2019-08-14 15:20:44 Unknown, Hl7 Doctor [facility] ED ECG INTERPRETATION 2019-08-14 15:18:59 Yolanda Stubbs [facility] RHYTHM STRIP - SCAN 2019-07-30 11:04:16 Provider, Default Scanni [facility] RHYTHM STRIP - SCAN 2019-07-18 08:20:32 Provider, Default Scanni [facility] REPORT OF PROCEDURE - ENDOSCOPY SCAN 2019-07-18 08:20:27 Pro vider, Default Scanning [facility] CARDIAC CATH REPORT - SCAN 2019-07-18 08:20:26 Provider, Default Scanning [facility] VASCULAR DIAGRAM -SCAN 2019-07-18 08:20:24 Provider, Default Sca [facility] POCT-GLUCOSE METER 2019-07-11 12:26:00 Thomas [facility] CBC W/PLT COUNT & AUTO DIFFERENTIAL 2019-07-11 10:25:00 Torr ealba Jackson, [facility] POCT-GLUCOSE METER 2019-07-11 08:48:00 Thomas [facility] POCT-GLUCOSE METER 2019-07-10 21:16:00 [facility] POCT-GLUCOSE METER 2019-07-10 16:23:00 [facility] POCT-GLUCOSE METER 2019-07-10 13:10[facility] 2019-07-10 11:55:00 Omar [facility] POCT-GLUCOSE METER 2019-07-10 10:09:00 Thomas [facility] BASIC METABOLIC PANEL (7) 2019-07-10 08:11:00 Grover Jackson, [facility] MAGNESIUM 2019-07-10 08:11:00 Thomas [facility] PHOSPHORUS 2019-07-10 08:11:00 Thomas [facility] CBC W/PLT COUNT & AUTO DIFFERENTIAL 2019-07-10 08:11:00 Torr ealba Jackson, [facility] POCT-GLUCOSE METER 2019-07-09 21:19:00 Thomas [facility] POCT-GLUCOSE METER 2019-07-09 16:53:00 [facility] POCT-GLUCOSE METER 2019-07-09 11:44:00 [facility] POCT-GLUCOSE METER 2019-07-09 08:18:00 [facility] VANCOMYCIN LEVEL, TROUGH 2019-07-09 04:15:00 Thomas [facility] CBC W/PLT COUNT & AUTO DIFFERENTIAL 2019-07-09 04:15:00 Torr ealba Jackson, [facility] BASIC METABOLIC PANEL (7) 2019-07-09 04:14:00 Grover Jackson [facility] MAGNESIUM 2019-07-09 04:14:00 [facility] PHOSPHORUS 2019-07-09 04:14:00 Thomas [facility] PROCALCITONIN 2019-07-09 04:14:00 Thomas [facility] POCT-GLUCOSE METER 2019-07-08 21:03:00 Thomas [facility] POCT-GLUCOSE METER 2019-07-08 18:16:00 [facility]ST 1 VIEW PORTABLE/BEDSIDE 2019-07-08 17:55:00 [facility] 2019-07-08 16:44:00 [facility] C. DIFFICILE GDH TOXIN 2019-07-08 13:14:00 Thomas [facility] POCT-GLUCOSE METER 2019-07-08 12:06:00 [facility] HEMODIALYSIS INPATIENT 2019-07-08 11:27:24 Nalini Nelson [facility] CBC W/PLT COUNT & AUTO DIFFERENTIAL 2019-07-08 10:34:00 Shyann Guzman [facility] POCT-GLUCOSE METER 2019-07-08 09:27:00 [facility] BASIC METABOLIC PANEL (7) 2019-07-08 06:22:00 Grover Jackson [facility] MAGNESIUM 2019-07-08 06:22:00 [facility] PHOSPHORUS 2019-07-08 06:22:00 Thomas [facility] CBC W/PLT COUNT & AUTO DIFFERENTIAL 2019-07-08 06:22:00 Torr ealba Jackson, [facility] POCT-GLUCOSE METER 2019-07-08 01:19:00 [facility] POCT-GLUCOSE METER 2019-07-07 21:10:00 [facility] POCT-GLUCOSE METER 2019-07-07 16:47:00 [facility] POCT-GLUCOSE METER 2019-07-07 07:31:00 [facility] BASIC METABOLIC PANEL (7) 2019-07-07 05:11:00 Grover Jackson, [facility] CBC W/PLT COUNT & AUTO DIFFERENTIAL 2019-07-07 05:11:00 Torr ealba Jackson, [facility] POCT-GLUCOSE METER 2019-07-06 21:52:00 Vicki Santizo A [facility] POCT-GLUCOSE METER 2019-07-06 17:24:00 Vicki Santizo A [facility] POCT-GLUCOSE METER 2019-07-06 12:17:00 Vicki Santizo A [facility] BASIC METABOLIC PANEL (7) 2019-07-06 11:04:00 Grover Jackson, [facility] CBC W/PLT COUNT & AUTO DIFFERENTIAL 2019-07-06 11:04:00 Torr ealba Jackson, [facility] POCT-GLUCOSE METER 2019-07-06 07:39:00 Vicki Santizo A A [facility] POCT-GLUCOSE METER 2019-07-05 21:12:00 Vicki Santizo A [facility] HEMODIALYSIS INPATIENT 2019-07-05 18:01:49 Justin Thakur I [facility] POCT-GLUCOSE METER 2019-07-05 13:34:00 Vicki Santizo A [facility] CBC W/PLT COUNT & AUTO DIFFERENTIAL 2019-07-05 09:04:00 Torr ealba Jackson, [facility] POCT-GLUCOSE METER 2019-07-05 08:35:00 Vicki Santizo A [facility] BASIC METABOLIC PANEL (7) 2019-07-05 05:57:00 Grover Jackson, [facility] POCT-GLUCOSE METER 2019-07-04 22:36:00 Vicki Santizo [facility] TRANSFUSION SERVICE REPORT - SCAN 2019-07-04 18:01:30 Provid er, Default Scanning [facility] POCT-GLUCOSE METER 2019-07-04 17:11:00 [facility] VASCULAR DIAGRAM -SCAN 2019-07-04 14:40:04 Provider, Default Sca nning [facility] POCT-GLUCOSE METER 2019-07-04 12:20:00 [facility] POCT-GLUCOSE METER 2019-07-04 08:01:00 [facility] BASIC METABOLIC PANEL (7) 2019-07-04 05:36:00 Grover Jackson, [facility] CBC W/PLT COUNT & AUTO DIFFERENTIAL 2019-07-04 05:36:00 [facility] LEUKO-REDUCED RBC 2019-07-03 23:54:00 Tony Guzman I [facility] POCT-GLUCOSE METER 2019-07-03 21:12:00 [facility] TRANSFUSION SERVICE REPORT - SCAN 2019-07-03 18:01:23 Provid er, Default Scanning [facility] POCT-GLUCOSE METER 2019-07-03 16:52:[address] [facility] CT BRAIN WITHOUT IV CONTRAST 2019-07-03 12:45:00 Jojo [facility] HEMODIALYSIS INPATIENT 2019-07-03 08:48:00 Justin hTakur CH I [facility] POCT-GLUCOSE METER 2019-07-03 05:16:00 [facility] BASIC METABOLIC PANEL (7) 2019-07-03 05:12:00 Grover Jackson, [facility] LIPID PANEL 2019-07-03 05:12:00 Jojo [facility] CBC W/PLT COUNT & AUTO DIFFERENTIAL 2019-07-03 05:12:00 [facility]EM[facility] HEMATOCRIT 2019-07-02 18:47:00 Tony Guzman [facility] TRANSFUSION SERVICE REPORT - SCAN 2019-07-02 18:01:18 Provid er, Default Scanning [facility] POCT-GLUCOSE METER 2019-07-02 16:21:00 [facility] TRANSFUSE LEUKO-REDUCED RED BLOOD CELLS 2019-07-02 13:47:10 [facility] EEG AWAKE AND DROWSY 2019-07-02 10:52:00 Thomas [facility] POCT-GLUCOSE METER 2019-07-02 10:01:00 [facility] POCT-GLUCOSE METER 2019-07-02 05:53:00 [facility] BASIC METABOLIC PANEL (7) 2019-07-02 04:09:00 [facility]TACT 2019-07-02 04:09:00 SonnyCourtney [facility] IRON, TIBC, % SAT. (WITHOUT FERRITIN) 2019-07-02 04:09:00 Courtney Gracia [facility] FERRITIN 2019-07-02 04:09:00 Courtney Burton [facility] CBC W/PLT COUNT & AUTO DIFFERENTIAL 2019-07-02 04:09:00 Torr ealba Jackson [facility] POCT-GLUCOSE METER 2019-07-01 23:16:00 [facility] POCT-GLUCOSE METER 2019-07-01 18:08:00 [facility] TRANSFUSION SERVICE REPORT - SCAN 2019-07-01 18:03:05 Provid er, Default Scanning [facility] TYPE AND SCREEN, AUTOMATED 2019-07-01 17:06:00 Tony Guzman [facility] HEMOGLOBIN AND HEMATOCRIT 2019-07-01 16:43:00 Tony Guzman [facility] POCT-GLUCOSE METER 2019-07-01 12:52:00 [facility] POCT-GLUCOSE METER 2019-07-01 08:41:00 [facility] BASIC METABOLIC PANEL (7) 2019-07-01 03:26:00 [facility] W/[facility]T COUNT & AUTO DIFFERENTIAL 2019-07-01 03:26:00 Torr ealba [facility] HEMOGLOBIN AND HEMATOCRIT 2019-07-01 00:23:00 [facility] PREPARE LEUKO-REDUCED RBC 2019-06-30 23:54:00 Steven Kapoor [facility] PERIPHERAL VASCULAR REPORT - SCAN 2019-06-30 21:23:20 Provid er, Default Scanning [facility] HEMOGLOBIN AND HEMATOCRIT 2019-06-30 19:01:00 [facility] POCT-GLUCOSE METER 2019-06-30 18:33:00 [facility] TRANSFUSION SERVICE REPORT - SCAN 2019-06-30 18:01:37 Provid er, Default Scanning [facility] HEMODIALYSIS INPATIENT 2019-06-30 13:57:29 Courtney Burton [facility] POCT-GLUCOSE METER 2019-06-30 12:11:00 [facility] HEMOGLOBIN AND HEMATOCRIT 2019-06-30 11:12:00 [facility] ECHO W CONTRAST & DOPPLER 2019-06-30 11:06:13 [facility] POCT-GLUCOSE METER 2019-06-30 08:39:00 [facility] MAGNESIUM 2019-06-30 03:46:00 Kem Diaz [facility] PHOSPHORUS 2019-06-30 03:46:00 CroomsKem [facility] BASIC METABOLIC PANEL (7) 2019-06-30 03:46:00 [facility] CBC W/PLT COUNT & AUTO DIFFERENTIAL 2019-06-30 03:46:00 [facility] HEMOGLOBIN AND HEMATOCRIT 2019-06-29 23:54:00 [facility] TRANSFUSE LEUKO-REDUCED RED BLOOD CELLS 2019-06-29 22:11:12 Steven Kapoor [facility] POCT-GLUCOSE METER 2019-06-29 18:37:00 Kem Diaz [facility] HEMOGLOBIN AND HEMATOCRIT 2019-06-29 18:32:00 [facility] TRANSFUSION SERVICE REPORT - SCAN 2019-06-29 18:01:09 Provid er, Default Scanning [facility] CT BRAIN WITHOUT IV CONTRAST 2019-06-29 15:30:00 Lei Narvaez [facility] PSEUDOANEURYSM GROIN DOPPLER LEFT 2019-06-29 11:53:00 Benita Lopez [facility] POCT-GLUCOSE METER 2019-06-29 11:31:00 CharbelFely [facility] HEMOGLOBIN AND HEMATOCRIT 2019-06-29 11:10:00 [facility] XR ABDOMEN / KUB 1 VIEW 2019-06-29 09:24:00 Trey Saleem [facility] POCT-GLUCOSE METER 2019-06-29 07:51:00 Fely Barger [facility] MAGNESIUM 2019-06-29 03:37:00 [facility] 2019-06-29 03:37:00 Kem Diaz [facility] BASIC METABOLIC PANEL (7) 2019-06-29 03:37:00 Grover Jackson, [facility] CBC W/PLT COUNT & AUTO DIFFERENTIAL 2019-06-29 03:36:00 Torr unrulylba Jackson, [facility] POCT-GLUCOSE METER 2019-06-28 23:49:00 Charbel, [facility] COMPREHENSIVE METABOLIC PANEL 2019-06-28 23:28:00 Grover Nealos arsalan, [facility] HEMOGLOBIN A1C 2019-06-28 23:28:00 Grover [facility], [facility] PROTHROMBIN TIME/INR 2019-06-28 23:28:00 [facility] APTT 2019-06-28 23:28:00 Grover [facility], [facility] HEMOGLOBIN AND HEMATOCRIT 2019-06-28 23:28:00 [facility] Jackson, [facility] FIBRINOGEN 2019-06-28 23:28:00 Grover Acosta, [facility] PREPARE LEUKO-REDUCED RBC 2019-06-28 21:43:00 [facility] Jackson, [facility] HEMOGLOBIN AND HEMATOCRIT 2019-06-28 20:40:00 [facility] TYPE AND SCREEN, AUTOMATED 2019-06-28 20:40:00 Grover Jackson, [facility] CBC W/PLT COUNT & AUTO DIFFERENTIAL 2019-06-28 20:40:00 Crystal tolliverljoe Jackson, [facility] CTA BRAIN 2019-06-28 16:44:00 [facility]ver [facility], [facility] CAROTID 2019-06-28 16:44:00 [facility]ver [facility]/STROKE TEST DESIGN 2019-06-28 16:27:00 Grover Odella , [facility] POCT-GLUCOSE METER 2019-06-28 15:35:00 Charbel, [facility] POCT-GLUCOSE METER 2019-06-28 13:42:00 Charbel, [facility] CBC W/PLT COUNT & AUTO DIFFERENTIAL 2019-06-28 09:54:00 [facility] PLATELET AGGREGATION: FUNCTION SCREEN 2019-06-28 09:50:00 Jonathan Moya [facility] HEMODIALYSIS INPATIENT 2019-06-28 09:16:10 [facility] HEPATITIS B SURFACE ANTIGEN 2019-06-28 09:11:00 [facility] POCT-GLUCOSE METER 2019-06-28 07:29:00 Charbel, [facility] BASIC METABOLIC PANEL (7) 2019-06-28 04:44:00 Cromohan, [facility] MAGNESIUM 2019-06-28 04:44:[address] [facility] PHOSPHORUS 2019-06-28 04:44:[address] [facility] CBC W/PLT COUNT & AUTO DIFFERENTIAL 2019-06-28 04:44:[address] [facility] PLATELET AGGREGATION: FUNCTION SCREEN 2019-06-28 04:43:00 Jonathan Moya [facility] POCT-GLUCOSE METER 2019-06-27 22:48:00 Charbel, [facility] POCT-ACT 2019-06-27 21:04:00 Charbel, [facility] POCT-ACT 2019-06-27 19:39:00 Charbel, [facility] POCT-GLUCOSE METER 2019-06-27 17:41:00 Charbel, [facility] POCT-ACT 2019-06-27 15:48:00 Charbel, [facility] POCT-ACT 2019-06-27 15:10:00 Charbel, [facility] POCT-ACT 2019-06-27 14:38:00 Charbel, [facility] PERIPHERAL ANGIOS & IVUS 2019-06-27 13:26:00 Jonathan Moya [facility] POTASSIUM-STAT LAB 2019-06-27 12:22:00 Jonathan Moya [facility] Plan of Care Planned Activity Planned Date Details Comments Source Future Scheduled Test 2020-10-15 00:00:00 Hemoglobin A1c sánchez surement (procedure) [code = 00067123] [facility] Future Scheduled Test 2020-03-16 00:00:00 INFLUENZA VACCINE (#1) [code = INFLUENZA VACCINE (#1)] [facility] Future Scheduled Test 2008-09-14 00:00:00 MEDICARE ANNUAL WE LLNESS (YEAR 2 or FIRST YEAR if no IPPE) [code = MEDICARE ANNUAL WELLNESS (YEAR 2 or FIRST YEAR if no IPPE)] [facility] Future Scheduled Test 1957 00:00:00 DIABETIC EYE EXAM [code = DIABETIC EYE EXAM] [facility] Future Scheduled Test 1957 00:00:00 Diabetic foot exam ination (regime/therapy) [code = 808952014] [facility] Future Scheduled Test 1957 00:00:00 Urine screening fo r protein (procedure) [code = 500729472] [facility] Future Scheduled Test 1947 00:00:00 Screening for colby gnant neoplasm of breast (procedure) [code = 377023395] [facility] Future Scheduled Test 1947 00:00:00 Screening for colby gnant neoplasm of colon (procedure) [code = 104576716] [facility] Instructions Hyperkalemia [facility] Encounters Start Date/Time End Date/Time Encounter Type Admission Type [facility] Care Department Encounter ID Source 2019-11-14 19:53:00 2019-11-15 00:26:00 Departed Emergency Room 1 KODY ALEMAN [facility] [id number] [facility] [place] [place] 2019-10-14 11:57:00 2019-10-14 16:30:00 Departed Emergency Room [facility] [id number] [facility] 2019-09-04 10:04:00 2019-09-04 15:45:00 Departed Emergency Room 1 KODY ALEMAN [facility] [id number] [facility] [place] [place] 2019-08-22 23:27:00 2019-08-26 13:16:00 Discharged Inpatient (obs) 1 CHERELLE VELASQUEZ [facility] [id number] [facility] 2019-06-09 03:40:00 2019-06-09 05:50:00 Departed Emergency Room 1 TREY RODRIGES [facility] [id number] [facility] 2019-05-31 17:37:00 2019-06-04 18:07:00 Discharged Inpatient 1 RON JASMEET [facility] [id number] [facility] 2019-05-26 03:33:00 2019-05-26 05:12:00 Departed Emergency Room 1 XIOMARA TOLENTINO [facility] [id number] [facility] 2019-05-18 10:55:00 2019-05-19 20:52:00 Discharged Inpatient 1 CHERELLE VELASQUEZ [facility] [id number] [facility] 2019-05-12 19:39:00 2019-05-13 00:49:00 Departed Emergency Room 1 TREY RODRIGES [facility] [id number] [facility] 2019-04-11 10:54:00 2019-04-11 15:17:00 Departed Emergency Room [facility] [id number] [facility] 2019-01-19 04:34:00 2019-01-19 08:20:00 Departed Emergency Room 1 TREY RODRIGES [facility] [id number] [facility] 2018-12-23 22:08:00 2018-12-30 13:27:00 Discharged Inpatient 1 CHERELLE VELASQUEZ [facility] [id number] [facility] 2018-11-06 18:31:00 2018-11-13 18:38:00 Discharged Inpatient 1 [facility] [id number] [facility] 2018-08-20 21:15:00 2018-08-21 01:55:00 Departed Emergency Room [facility] [id number] [facility] 2018-05-20 12:31:00 2018-05-20 18:20:00 Departed Emergency Room [facility] [id number] [facility] 2018-02-22 06:23:00 2018-02-24 14:40:00 Discharged Inpatient (obs) 1 CHERELLE VELASQUEZ [facility] [id number] [facility] Results Test Description Test Time Test Comments Results Result Comments Source POC-Glucose meter 2020-04-16 12:11:00 Test Item POC-Glucose Meter (test code = 1538) 103 mg/dL 70-110 : TESTED AT [address], [address]: Director Of Collections And Archives/Residential Advisor ID = [id number] for Hank Sarmiento Lab Interpretation (test code = 10968-7) [facility] [id number] 12:11:00* Test Item Value Reference Range Interpretation Comments POC-GLUCOSE METER (BEAKER) (test code = 1538) 103 mg/dL 70-110 : TESTED AT [address], [address]: Director Of Collections And Archives/Residential Advisor ID = [id number] for Hank Sarmiento T4, [id number] 08:05:00* Test Item Value Reference Range Interpretation Comments Free T4 (test code = 3024-7) 0.71 ng/dL 0.7-1.48 GABBY (test code = GABBY) Director Of Collections And Archives ID - BIMAL F Lab Interpretation (test code = 83517-8) [facility], [id number] 08:05:00* Test Item Value Reference Range Interpretation Comments FREE T4 (BEAKER) (test code = 655) 0.71 ng/dL 0.70-1.48 Director Of Collections And Archives ID - CAROLINA FHemoglobin [id number] 07:54:00* Test Item Value Reference Range Interpretation Comments Hemoglobin A1C (test code = 4548-4) 5.8 % 4.3-6.1 Lab Interpretation (test code = 53592-0) [facility] [id number] 07:54:00* Test Item Value Reference Range Interpretation Comments HEMOGLOBIN A1C (BEAKER) (test code = 368) 5.8 % 4.3-6.1 POCT-GLUCOSE [id number] 07:51:00* Test Item Value Reference Range Interpretation Comments POC-GLUCOSE METER (BEAKER) (test code = 1538) 118 mg/dL 70-110 H : TESTED AT [address], [address]: Director Of Collections And Archives/Residential Advisor ID = [id number] for Hank Sarmiento Iron, TIBC, % sat. (without ferritin)2020-04-16 07:35:00* Test Item Value Reference Range Interpretation Comments Iron (test code = 2498-4) 29.0 ug/dL 40-160 L TIBC (test code = 2500-7) 139 ug/dL 250-450 L Iron % Saturation (test code = 2502-3) 21 % 20-55 GABBY (test code = GABBY) Director Of Collections And Archives ID Alfredo WALLIS F Lab Interpretation (test code = 87775-6) [facility] % SAT. (WITHOUT FERRITIN)2020-04-16 07:35:00* Test Item Value Reference Range Interpretation Comments IRON (BEAKER) (test code = 547) 29.0 ug/dL 40.0-160.0 L TOTAL IRON BINDING CAPACITY (BEAKER) (test code = 769) 139 ug/dL 250-450 L IRON % SATURATION (2) (BEAKER) (test code = 2590) 21 % 20-5 5 Director Of Collections And Archives ID Alfredo WALLIS FBasic metabolic [id number] 07:21:00* Test Item Value Reference Range Interpretation Comments Sodium (test code = 2951-2) 136 meq/L 136-145 Potassium (test code = 2823-3) 5.2 meq/L 3.5-5.1 H Chloride (test code = 2075-0) 96 meq/L 98-107 L CO2 (test code = 2028-9) 26 meq/L 22-29 BUN (test code = 3094-0) 53 mg/dL 7-21 H Creatinine (test code = 2160-0) 7.47 mg/dL 0.57-1.25 H Glucose (test code = 2345-7) 111 mg/dL 70-105 H Calcium (test code = 21612-4) 7.4 mg/dL 8.4-10.2 L EGFR (test code = 10168-0) 6 mL/min/1.73 sq m ESTIMATED GFR IS NOT ACCURATE CREATININE CLEARANCE IN PREDICTING GLOMERULAR FILTRATION RATE. ESTIMATED GFR IS NOT APPLICABLE FOR DIALYSIS PATIENTS. GABBY (test code = GABBY) Director Of Collections And Archives ID - BIMAL F Lab Interpretation (test code = 42928-6) [facility] [id number] 07:21:00* Test Item Value Reference Range Interpretation Comments SODIUM (BEAKER) (test code = 381) 136 meq/L 136-145 POTASSIUM (BEAKER) (test code = 379) 5.2 meq/L 3.5-5.1 H CHLORIDE (BEAKER) (test code = 382) 96 meq/L 98-107 L CO2 (BEAKER) (test code = 355) 26 meq/L 22-29 BLOOD UREA NITROGEN (BEAKER) (test code = 354) 53 mg/dL 7-21 H CREATININE (BEAKER) (test code = 358) 7.47 mg/dL 0.57-1.25 H GLUCOSE RANDOM (BEAKER) (test code = 652) 111 mg/dL 70-105 H CALCIUM (BEAKER) (test code = 697) 7.4 mg/dL 8.4-10.2 L EGFR (BEAKER) (test code = 1092) 6 mL/min/1.73 sq m ESTIMATED GFR IS NOT ACCURATE CREATININE CLEARANCE IN PREDICTING GLOMERULAR FILTRATION RATE. ESTIMATED GFR IS NOT APPLICABLE FOR DIALYSIS PATIENTS. Director Of Collections And Archives ID Alfredo BIMAL FLipid [id number] 07:20:00* Test Item Value Reference Range Interpretation Comments Triglycerides (test code = 2571-8) 130 mg/dL Cholesterol (test code = 2093-3) 179 mg/dL HDL (test code = 2085-9) 33 mg/dL LDL Calculated (test code = 93323-3) 120 mg/dL GABBY (test code = GABBY) Triglyceride Reference Range : Low Risk <150 Borderline 150-199 High Risk 200-499 Very High Risk >=500 Cholesterol Reference Range: Low Risk <200 Borderline 200-239 High Risk >240 HDL Cholesterol Reference Range: Low Risk >=60 High Risk <40 LDL Cholesterol Reference Range: Optimal <100 Near Optimal 100-129 Borderline 130-159 High 160-189 Very High >=190 Director Of Collections And Archives SHERMAN Brower [facility] [id number] 07:20:00* Test Item Value Reference Range Interpretation Comments Protein, Total (test code = 2885-2) 6.9 6.0- 8.3 gm/dL Albumin (test code = 92291-3) 3.0 g/dL 3.5-5 L Total Bilirubin (test code = 1974-2) 0.3 mg/dL 0.2-1.2 Bilirubin, Direct (test code = 1967-7) 0.2 mg/dL 0.1-0.5 Alkaline Phosphatase (test code = 6768-6) 61 U/L 40-150 AST (test code = 1920-8) 9 U/L 5-34 ALT (test code = 1742-6) <6 6-55 L GABBY (test code = GABBY) Director Of Collections And Archives ID Alfredo Brower Lab Interpretation (test code = 89033-6) [facility] 07:20:00* Test Item Value Reference Range Interpretation Comments Magnesium (test code = 35443-9) 2.1 mg/dL 1.6-2.6 GABBY (test code = GABBY) Director Of Collections And Archives SHERMAN Brower Lab Interpretation (test code = 49481-2) Normal [facility]2020-[facility]-02 07:20:00* Test Item Value Reference Range Interpretation Comments Phosphorus (test code = 2777-1) 7.1 mg/dL 2.3-4.7 H GABBY (test code = GABBY) Director Of Collections And Archives SHERMAN Brower Lab Interpretation (test code = 43870-0) [facility]normal [facility]PHOSPHORUS2020-10-02 07:20:00* Test Item Value Reference Range Interpretation Comments PHOSPHORUS (BEAKER) (test code = 604) 7.1 mg/dL 2.3-4.7 H Director Of Collections And Archives ID Alfredo WALLIS [id number] 07:20:00* Test Item Value Reference Range Interpretation Comments MAGNESIUM (BEAKER) (test code = 627) 2.1 mg/dL 1.6-2.6 Director Of Collections And Archives ID Alfredo WALLIS FLIPID [id number] 07:20:00* Test Item Value Reference Range Interpretation Comments TRIGLYCERIDES (BEAKER) (test code = 540) 130 mg/dL CHOLESTEROL (BEAKER) (test code = 631) 179 mg/dL HDL CHOLESTEROL (BEAKER) (test code = 976) 33 mg/dL LDL CHOLESTEROL CALCULATED (BEAKER) (test code = 633) 120 mg/dL Triglyceride Reference Range: Low Risk <150 Borderline 150-199 High Risk 200-499 Very High Risk >=500Cholesterol Reference Range: Low Risk <200 Borderline 200-239 High Risk >240HDL Cholesterol Reference Range: Low Risk >=60 High Risk <40LDL Cholesterol Reference Range: Optimal <100 Near Optimal 100-129 Borderline 130-159 High 160-189 Very High >=190 Director Of Collections And Archives ID Alfredo WALLIS FHEPATIC FUNCTION [id number] 07:20:00* Test Item Value Reference Range Interpretation Comments TOTAL PROTEIN (BEAKER) (test code = 770) 6.9 gm/dL 6.0-8.3 ALBUMIN (BEAKER) (test code = 1145) 3.0 g/dL 3.5-5.0 L BILIRUBIN TOTAL (BEAKER) (test code = 377) 0.3 mg/dL 0.2-1.2 BILIRUBIN DIRECT (BEAKER) (test code = 706) 0.2 mg/dL 0.1-0.5 ALKALINE PHOSPHATASE (BEAKER) (test code = 346) 61 U/L 40-150 AST (SGOT) (BEAKER) (test code = 353) 9 U/L 5-34 ALT (SGPT) (BEAKER) (test code = 347) < U/L 6-55 L Director Of Collections And Archives ID Alfredo WALLIS [id number] 07:16:00* Test Item Value Reference Range Interpretation Comments Ferritin (test code = 2276-4) 775.63 ng/mL 5-275 H GABBY (test code = GABBY) Director Of Collections And Archives ID Alfredo WALLIS F Lab Interpretation (test code = 96456-0) [facility]normal [facility] T4 If [id number] 07:16:00* Test Item Value Reference Range Interpretation Comments TSH (test code = 92609-4) 26.176 0.350- 4.940 uIU/mL H GABBY (test code = GABBY) Director Of Collections And Archives ID Alfredo Brower Lab Interpretation (test code = 83856-0) Abnormal [facility] HospitalVitamin B12 and [id number] 07:16:00* Test Item Value Reference Range Interpretation Comments Vitamin B12 (test code = 2132-9) 527 pg/mL 213-816 Folate (test code = 2284-8) 7.60 ng/mL >=7.00 GABBY (test code = GABBY) Director Of Collections And Archives ID Alfredo WALLIS F Lab Interpretation (test code = 42561-7) Normal [facility]ERR[facility]IN2020-10-02 07:16:00* Test Item Value Reference Range Interpretation Comments FERRITIN (BEAKER) (test code = 361) 775.63 ng/mL 5.00-275.00 H Director Of Collections And Archives ID Alfredo WALLIS FVITAMIN B12 AND [id number] 07:16:00* Test Item Value Reference Range Interpretation Comments VITAMIN B12 (BEAKER) (test code = 774) 527 pg/mL 213-816 FOLATE (BEAKER) (test code = 362) 7.60 ng/mL >=7.00 Director Of Collections And Archives ID Alfredo WALLIS FTSH/FREE T4 IF [id number] 07:16:00* Test Item Value Reference Range Interpretation Comments THYROID STIMULATING HORMONE (BEAKER) (test code = 772) 26.17 6 uIU/mL 0.350-4.940 H Director Of Collections And Archives SHERMAN WALLIS FCBC with platelet count + automated [id number] 06:00:00* Test Item Value Reference Range Interpretation Comments WBC (test code = 6690-2) 4.8 3.5- 10.5 K/L RBC (test code = 789-8) 3.22 3.93- 5.22 M/L L MCHC (test code = 786-4) 30.1 32.2- 35.5 GM/DL L Hematocrit (test code = 4544-3) 31.2 % 34.1-44.9 L MCV (test code = 787-2) 96.9 fL 79.4-94.8 H MCH (test code = 785-6) 29.2 pg 25.6-32.2 RDW (test code = 788-0) 14.9 % 11.7-14.4 H Platelets (test code = 777-3) 195 150- 450 K/CU MM MPV (test code = 52290-4) 12.5 fL 9.4-12.3 H nRBC (test code = 413) 0 0- 0 /100 WBC % Neutros (test code = 429) 62 % % Lymphs (test code = 430) 23 % % Monos (test code = 431) 12 % % Eos (test code = 432) 4 % % Baso (test code = 437) 0 % # Neutros (test code = 670) 2.97 1.56- 6.13 K/L # Lymphs (test code = 414) 1.09 1.18- 3.74 K/L L # Monos (test code = 415) 0.56 0.24- 0.36 K/L H # Eos (test code = 416) 0.17 0.04- 0.36 K/L # Baso (test code = 417) 0.01 0.01- 0.08 K/L Immature Granulocytes-Relative (test code = 2801) 0 % 0-1 Lab Interpretation (test code = 93566-7) Abnormal [facility] W/PLT COUNT & AUTO [id number] 06:00:00* Test Item Value Reference Range Interpretation Comments WHITE BLOOD CELL COUNT (BEAKER) (test code = 775) 4.8 K/ L 3.5- 10.5 RED BLOOD CELL COUNT (BEAKER) (test code = 761) 3.22 M/ L 3.93-5 .22 L HEMOGLOBIN (BEAKER) (test code = 410) 9.4 GM/DL 11.2-15.7 L HEMATOCRIT (BEAKER) (test code = 411) 31.2 % 34.1-44.9 L MEAN CORPUSCULAR VOLUME (BEAKER) (test code = 753) 96.9 fL 79. 4-94.8 H MEAN CORPUSCULAR HEMOGLOBIN (BEAKER) (test code = 751) 29.2 pg 25.6-32.2 MEAN CORPUSCULAR HEMOGLOBIN CONC (BEAKER) (test code = 752) 30.1 GM/DL 32.2-35.5 L RED CELL DISTRIBUTION WIDTH (BEAKER) (test code = 412) 14.9 % 11.7-14.4 H PLATELET COUNT (BEAKER) (test code = 756) 195 K/CU MM 150-450 MEAN PLATELET VOLUME (BEAKER) (test code = 754) 12.5 fL 9.4-12 .3 H NUCLEATED RED BLOOD CELLS (BEAKER) (test code = 413) 0 /100 WBC 0 -0 NEUTROPHILS RELATIVE PERCENT (BEAKER) (test code = 429) 62 % LYMPHOCYTES RELATIVE PERCENT (BEAKER) (test code = 430) 23 % MONOCYTES RELATIVE PERCENT (BEAKER) (test code = 431) 12 % EOSINOPHILS RELATIVE PERCENT (BEAKER) (test code = 432) 4 % BASOPHILS RELATIVE PERCENT (BEAKER) (test code = 437) 0 % NEUTROPHILS ABSOLUTE COUNT (BEAKER) (test code = 670) 2.97 K/ L 1.56-6.13 LYMPHOCYTES ABSOLUTE COUNT (BEAKER) (test code = 414) 1.09 K/ L 1.18-3.74 L MONOCYTES ABSOLUTE COUNT (BEAKER) (test code = 415) 0.56 K/ L 0. 24-0.36 H EOSINOPHILS ABSOLUTE COUNT (BEAKER) (test code = 416) 0.17 K/ L 0.04-0.36 BASOPHILS ABSOLUTE COUNT (BEAKER) (test code = 417) 0.01 K/ L 0. 01-0.08 IMMATURE GRANULOCYTES-RELATIVE PERCENT (BEAKER) (test code = 2801) 0 % 0-1 POCT-GLUCOSE [id number] 21:06:00* Test Item Value Reference Range Interpretation Comments POC-GLUCOSE METER (BEAKER) (test code = 1538) 177 mg/dL 70-110 H : TESTED AT [facility] [address], [address]: Director Of Collections And Archives/Residential Advisor ID = [id number] for SHANTEL REZA III POCT-GLUCOSE [id number] 16:47:00* Test Item Value Reference Range Interpretation Comments POC-GLUCOSE METER (BEAKER) (test code = 1538) 199 mg/dL 70-110 H : TESTED AT [facility] [address], [address]: Director Of Collections And Archives/Residential Advisor ID = [id number] for TITI SHERIDAN POCT-GLUCOSE [id number] 11:25:00* Test Item Value Reference Range Interpretation Comments POC-GLUCOSE METER (BEAKER) (test code = 1538) 176 mg/dL 70-110 H : TESTED AT [facility] [address], [address]: Director Of Collections And Archives/Residential Advisor ID = [id number] for TITI SHERIDAN ECG 12 [id number] 09:13:50Interface, External Ris In - 04/15/2020 9:13 AM CDTVentricular Rate 69 BPMAtrial Rate 69 BPMP-R Interval 222 msQRS Duration 88 msQ-T Interval 436 msQTC Calculation(Bazett) 467 msP [place] 56 degreesR [place] -23 degreesT [place] 70 degreesSinus rhythm with 1st degree A-V blockWithin normal limitsConfirmed by MD Winston Roberto ([id number]) on 04/15/2020 9:13:[address] [facility] MET[facility]OLIC [id number] 07:19:00* Test Item Value Reference Range Interpretation Comments SODIUM (BEAKER) (test code = 381) 139 meq/L 136-145 POTASSIUM (BEAKER) (test code = 379) 4.6 meq/L 3.5-5.1 CHLORIDE (BEAKER) (test code = 382) 98 meq/L 98-107 CO2 (BEAKER) (test code = 355) 28 meq/L 22-29 BLOOD UREA NITROGEN (BEAKER) (test code = 354) 39 mg/dL 7-21 H CREATININE (BEAKER) (test code = 358) 6.67 mg/dL 0.57-1.25 H GLUCOSE RANDOM (BEAKER) (test code = 652) 125 mg/dL 70-105 H CALCIUM (BEAKER) (test code = 697) 8.4 mg/dL 8.4-10.2 EGFR (BEAKER) (test code = 1092) 7 mL/min/1.73 sq m ESTIMATED GFR IS NOT ACCURATE CREATININE CLEARANCE IN PREDICTING GLOMERULAR FILTRATION RATE. ESTIMATED GFR IS NOT APPLICABLE FOR DIALYSIS PATIENTS. Director Of Collections And Archives ID - Jasontanika [id number] 07:11:00* Test Item Value Reference Range Interpretation Comments Troponin I (test code = 79702-0) 0.15 ng/mL 0-0.03 H GABBY (test code = GABBY) Troponin I (TnI) levels must be interpreted in the context of the presenting symptoms and the clinical findings. Elevated TnI levels indicate myocardial damage, but are not specific for ischemic heart disease. Elevated TnI levels are seen in patients with other cardiac conditions (including myocarditis and congestive heart failure), and slight TnI elevations occur in patients with other conditions, including sepsis, renal failure, acidosis, acute neurological disease, and persistent tachyarrhythmia.Director Of Collections And Archives ID - EDASI Lab Interpretation (test code = 31468-3) Abnormal [facility] [id number] 07:11:00* Test Item Value Reference Range Interpretation Comments TROPONIN I (BEAKER) (test code = 397) 0.15 ng/mL 0.00-0.03 H Troponin I (TnI) levels must be interpreted in the context of the presenting sym ptoms and the clinical findings. Elevated TnI levels indicate myocardial damage, but are not specific for ischemic heart disease. Elevated TnI levels are seen in patients with other cardiac conditions (including myocarditis and congestive h eart failure), and slight TnI elevations occur in patients with other conditions , including sepsis, renal failure, acidosis, acute neurological disease, and per sistent tachyarrhythmia.Director Of Collections And Archives ID - [id number] 07:11:00* Test Item Value Reference Range Interpretation Comments PHOSPHORUS (BEAKER) (test code = 604) 6.1 mg/dL 2.3-4.7 H Director Of Collections And Archives ID - [id number] 07:11:00* Test Item Value Reference Range Interpretation Comments MAGNESIUM (BEAKER) (test code = 627) 2.0 mg/dL 1.6-2.6 Director Of Collections And Archives ID - EDASICBC W/PLT COUNT & AUTO [id number] 06:40:00* Test Item Value Reference Range Interpretation Comments WHITE BLOOD CELL COUNT (BEAKER) (test code = 775) 4.0 K/ L 3.5- 10.5 RED BLOOD CELL COUNT (BEAKER) (test code = 761) 3.90 M/ L 3.93-5 .22 L HEMOGLOBIN (BEAKER) (test code = 410) 11.1 GM/DL 11.2-15.7 L HEMATOCRIT (BEAKER) (test code = 411) 38.2 % 34.1-44.9 MEAN CORPUSCULAR VOLUME (BEAKER) (test code = 753) 97.9 fL 79. 4-94.8 H MEAN CORPUSCULAR HEMOGLOBIN (BEAKER) (test code = 751) 28.5 pg 25.6-32.2 MEAN CORPUSCULAR HEMOGLOBIN CONC (BEAKER) (test code = 752) 29.1 GM/DL 32.2-35.5 L RED CELL DISTRIBUTION WIDTH (BEAKER) (test code = 412) 15.2 % 11.7-14.4 H PLATELET COUNT (BEAKER) (test code = 756) 196 K/CU MM 150-450 MEAN PLATELET VOLUME (BEAKER) (test code = 754) 12.3 fL 9.4-12 .3 NUCLEATED RED BLOOD CELLS (BEAKER) (test code = 413) 0 /100 WBC 0 -0 NEUTROPHILS RELATIVE PERCENT (BEAKER) (test code = 429) 61 % LYMPHOCYTES RELATIVE PERCENT (BEAKER) (test code = 430) 23 % MONOCYTES RELATIVE PERCENT (BEAKER) (test code = 431) 12 % EOSINOPHILS RELATIVE PERCENT (BEAKER) (test code = 432) 4 % BASOPHILS RELATIVE PERCENT (BEAKER) (test code = 437) 1 % NEUTROPHILS ABSOLUTE COUNT (BEAKER) (test code = 670) 2.44 K/ L 1.56-6.13 LYMPHOCYTES ABSOLUTE COUNT (BEAKER) (test code = 414) 0.92 K/ L 1.18-3.74 L MONOCYTES ABSOLUTE COUNT (BEAKER) (test code = 415) 0.49 K/ L 0. 24-0.36 H EOSINOPHILS ABSOLUTE COUNT (BEAKER) (test code = 416) 0.15 K/ L 0.04-0.36 BASOPHILS ABSOLUTE COUNT (BEAKER) (test code = 417) 0.02 K/ L 0. 01-0.08 IMMATURE GRANULOCYTES-RELATIVE PERCENT (BEAKER) (test code = 2801) 0 % 0-1 POCT-GLUCOSE [id number] 06:22:00* Test Item Value Reference Range Interpretation Comments POC-GLUCOSE METER (BEAKER) (test code = 1538) 123 mg/dL 70-110 H : TESTED AT [address], [address]: Director Of Collections And Archives/Residential Advisor ID = [id number] for EH FRANCIS SARS-CoV2/RT-PCR (Asymptomatic ONLY)2020-04-15 01:43:00* Test Item Value Reference Range Interpretation Comments SARS-COV2/RT-PCR (test code = 42642-9) Negative N ot Detected, Negative, See external report for linked test SARS-COV-2 PERFORMING LAB (test code = 45172-1) [facility] GABBY (test code = GABBY) Negative result for this toby t determines that SARS-CoV-2 RNA was not present in the specimen above the Limit of Detection (LOD). However, Negative results do not preclude SARS-CoV-2 infection and should not be used as the sole basis for treatment or patient management decisions. Negative results must be combined with clinical observations, patient history, and epidemiological information. A false negative result may occur if a specimen is improperly collected, transported or handled. A false negative result should be considered if patient's recent exposures or clinical presentation indicate that COVID-19 (SARS-CoV-2) is likely and diagnostic tests for other causes of illness are negative. Re-testing should be considered in cases of suspected false negatives. The limit of detection for this assay is 800 copies/mL. This SARS CoV-2 test is a real-time RT-PCR test intended for the qualitative detection of nucleic acid from SARS-CoV-2 in a nasopharyngeal swab specimen collected from individuals suspected of COVID-19 by their healthcare provider. This test has not been Food and Drug Administration (FDA) cleared or approved. This is a modified version of an approved Emergency Use Authorization (EUA) and is in the process of review by the FDA. Once authorized by the FDA, the issued EUA will be effective until the declaration that circumstances exist justifying the authorization of the emergency use of in vitro diagnostic tests for detection and/or diagnosis of COVID-19 is terminated under Section 564(b)(2) of the Act or the EUA is revoked under Section 564(g) of the Act. Fact Sheet for Healthcare Providers:https://www.[employer]/sites/default/files/product/documents/Fact_Shee y_NE_Xyjnhwxpk_Whyq_HEMA-PjW-3.pdf Fact Sheet for Healthcare Patients:https://www.[employer]/sites/default/files/pro duct/documents/Oydz_Pajqj_Kkxegumc_Qufq_IIRL-HkG-5.pdf Performing Laboratory:[facility] [place] [address] [facility]ARS-COV2/RT-PCR ([facility])2020-04-15 01:43:00* Test Item Value Reference Range Interpretation Comments SARS-COV2/RT-PCR (test code = 9144255) Negative N ot Detected, Negative, See external report for linked test SARS-COV-2 PERFORMING LAB (test code = 7793693) [facility] Negative result for this test determines that SARS-CoV-2 RNA was not present in the specimen above the Limit of Detection (LOD). However, Negative results do n ot preclude SARS-CoV-2 infection and should not be used as the sole basis for tr eatment or patient management decisions. Negative results must be combined with clinical observations, patient history, and epidemiological information. A false negative result may occur if a specimen is improperly collected, transported or handled. A false negative result should be considered if patient's recent expo sures or clinical presentation indicate that COVID-19 (SARS-CoV-2) is likely and diagnostic tests for other causes of illness are negative. Re-testing should be considered in cases of suspected false negatives.The limit of detection for this assay is 800 copies/mL.This SARS CoV-2 test is a real-time RT-PCR test intended for the qualitative detection of nucleic acid from SARS-CoV-2 in a nasopharyn geal swab specimen collected from individuals suspected of COVID-19 by their [facility] provider.This test has not been Food and Drug Administration (FDA) clear ed or approved. This is a modified version of an approved Emergency Use Authori zation (EUA) and is in the process of review by the FDA. Once authorized by [facility] FDA, the issued EUA will be effective until the declaration that circumstances exist justifying the authorization of the emergency use of in vitro diagnostic tests for detection and/or diagnosis of COVID-19 is terminated under Section 564 (b)(2) of the Act or the EUA is revoked under Section 564(g) of the Act.Fact She et for Healthcare Providers:https://www.[employer].com/sites/default/files/product/d ocuments/Zjjg_Ujorn_PU_Ikgorycqf_Apkb_TQCM-DaB-2.pdfFact Sheet for Healthcare Neeraj sallie:https://www.[employer]/sites/default/files/product/documents/Fact_Sheet_P daatbch_Kmen_ALPN-YkR-9.pdfPerforming Laboratory:[facility] [address] [place] [address].[place], [place] [address]RGZBOKFP [id number] 01:08:00* Test Item Value Reference Range Interpretation Comments TROPONIN I (BEAKER) (test code = 397) 0.14 ng/mL 0.00-0.03 H Troponin I (TnI) levels must be interpreted in the context of the presenting sym ptoms and the clinical findings. Elevated TnI levels indicate myocardial damage, but are not specific for ischemic heart disease. Elevated TnI levels are seen in patients with other cardiac conditions (including myocarditis and congestive h eart failure), and slight TnI elevations occur in patients with other conditions , including sepsis, renal failure, acidosis, acute neurological disease, and per sistent tachyarrhythmia.Director Of Collections And Archives ID - BSPOCT-GLUCOSE [id number] 00:41:00* Test Item Value Reference Range Interpretation Comments POC-GLUCOSE METER (BEAKER) (test code = 1538) 139 mg/dL 70-110 H : TESTED AT [facility] [address], [address]: Director Of Collections And Archives/Residential Advisor ID = [id number] for PRUDENCE ZAFAR Hepatitis B surface [id number] 21:08:00* Test Item Value Reference Range Interpretation Comments HBsAg Screen (test code = 5195-3) Nonreactive Nonreactive GABBY (test code = GABBY) Specimen is considered negative for HBsAg. Lab Interpretation (test code = 82442-1) [facility] [id number] 21:08:00* Test Item Value Reference Range Interpretation Comments HEPATITIS B SURFACE ANTIGEN (2) (BEAKER) (test code = 2585) Nonreactive Nonreactive Specimen is considered negative for HBsAg.POCT-GLUCOSE [id number] 19:22:00 * Test Item Value Reference Range Interpretation Comments POC-GLUCOSE METER (BEAKER) (test code = 1538) 153 mg/dL 70-110 H : Notified RN/MD: TESTED AT [facility] [address], [address]: Director Of Collections And Archives/Residential Advisor ID = [id number] for SHILOH HOWELL POCT-GLUCOSE [id number] 18:37:00* Test Item Value Reference Range Interpretation Comments POC-GLUCOSE METER (BEAKER) (test code = 1538) 99 mg/dL 70-110 : TESTED AT [facility] [address], [address]: Director Of Collections And Archives/Residential Advisor ID = [id number] for Anatninfa (V)Dorothea TROPONIN [id number] 17:27:00* Test Item Value Reference Range Interpretation Comments TROPONIN I (BEAKER) (test code = 397) 0.19 ng/mL 0.00-0.03 H Troponin I (TnI) levels must be interpreted in the context of the presenting sym ptoms and the clinical findings. Elevated TnI levels indicate myocardial damage, but are not specific for ischemic heart disease. Elevated TnI levels are seen in patients with other cardiac conditions (including myocarditis and congestive h eart failure), and slight TnI elevations occur in patients with other conditions , including sepsis, renal failure, acidosis, acute neurological disease, and per sistent tachyarrhythmia.Director Of Collections And Archives ID - [id number] 17:16:00* Test Item Value Reference Range Interpretation Comments Potassium (test code = 2823-3) 6.5 meq/L 3.5-5.1 HH Specimen slightly hemolyzed GABBY (test code = GABBY) Director Of Collections And Archives ID - BS Lab Interpretation (test code = 67486-5) [facility] 17:16:00* Test Item Value Reference Range Interpretation Comments POTASSIUM (BEAKER) (test code = 379) 6.5 meq/L 3.5-5.1 HH Specimen slightly hemolyzed Director Of Collections And Archives ID - BSRAD, SPINE, THORACIC, 2 [id number] 16:49:00Reason for exam:->back painReason for exam:->FALLShould this be performed at the bedside?-> YesFINAL REPORT THORACIC SPINE 2 VIEWS HISTORY: Status [...] definite thoracic spine fracture. Signed: Isadora Hernandez Verified Date/Time: 04/14/2020 16:49:24 Reading Location: [facility] Radiology Reading Room spine thoracic 2 [id number] 16:49:00Interface, External Ris In - 04/14/2020 4:51 PM CDTFINAL REPORT THORACIC SPINE 2 VIEWS HISTORY: Status post fall COMPARISON: Chest 2 view from 01/31/2015; a dedicated comparison thoracic spine imaging is available FINDINGS: AP and lateral radiographs of the thoracic spine were obtained. The lateral radiographs were limited due to artifact related to the patient's bed and/or trauma board. No definite thoracic spine fracture. There are degenerative and hy pertrophic changes in the spine. IMPRESSION: 1. No definite thoracic spine fract ure. Signed: Isadora Hernandez Verified Date/Time: 04/14/2020 16:49:24 Read ing Location: [facility] Rad[facility], NON [id number] 16:45:00Reason for exam:->KNEE PAINReason for exam:-> LEG PAINReason for exam:->WOUND CHECKReason for exam:->FALLShould this be performed at the bedside?->YesFINAL REPORT History: Status post fall Comparison: Chest [...] than a true abnormality. Signed: Isadora Hernandez Verified Date/Time: 04/14/2020 16:45:57 Reading Location: [facility] Radiology Reading Room chest 1 view portable / [id number] 16:45:00 Interface, External Ris In - 04/14/2020 4:48 PM CDTFINAL REPORT PATIENT ID: [id number] History: Status post fall Comparison: Chest radiograph of 09/05/2019 Fin dings: Vague asymmetric increase in opacity in the left hemithorax is probably j ust due to overlying soft tissues. Asymmetric edema cannot be excluded. The righ t lung is clear. No pleural effusions or pneumothorax are identified. The cardia c shadow is mildly enlarged. Thoracic aorta is tortuous and calcified. There are degenerative changes in the spine. Numerous tiny metallic densities overlying t he right shoulder/axillary region are presumably artifact, and were not present on the prior study. IMPRESSION: No definite evidence of acute cardiopulmonary di sease. Vague asymmetric increased opacity in the left hemithorax is suspected to be due to overlying soft tissues rather than a true abnormality. Signed: Isadora Hernandez Verified Date/Time: 04/14/2020 16:45:57 Reading Location: [facility] Radiology Reading Room Electronically signed by: ISADORA HERNANDEZ MD on 03/18 04:45 PM [facility] PELVIS, 1 OR 2 [id number] 16:42:00Reason for exam:->fall, injuryShould this be performed at the bedside?-> YesFINAL REPORT AP PELVIS HISTORY: Status post fall [...] visualized in the pelvis. Signed: Isadora Hernandez Verified Date/Time: 04/14/2020 16:42:53 Reading Location: [facility] Radiology Reading Room pelvis 1 or 2 [id number] 16:42:00Interface, External Ris In - 04/14/2020 4:45 PM CDTFINAL REPORT AP PELVIS HISTORY: Status post fall [...] visualized in the pelvis. Signed: Isadora Hernandez Verified Date/Time: 04/14/2020 16:42:53 Reading Location: [facility] Radiology Reading Room Electronically sig davonte by: ISADORA HERNANDEZ MD on 04/14/2020 04:42 PM [facility], FEMUR, MIN. 2 VIEWS, [id number] 16:41:00Reason for exam:->fall injuryReason for exam:->LEG PAINReason for exam:->FALLShould this be performed at the bedside?->YesFINAL REPORT LEFT FEMUR 2 VIEWS HISTORY: Left [...] the distal femoral diametaphysis. Signed: Isadora Hernandez Verified Date/Time: 04/14/2020 16:41:36 Reading Location: [facility] Radiology Reading Room femur left AP and [id number] 16:41:00Interface, External Ris In - 04/14/2020 4:43 PM CDTFINAL REPORT LEFT FEMUR 2 VIEWS HISTORY: Left [...] interlocking screw. This appears to involve the medi al and posterior aspects of the distal femoral diametaphysis. There is mild medi al displacement of the distal fracture fragment. No additional fractures are vis ualized in the left femur. There are diffuse arterial calcifications. There is s oft tissue swelling in the distal thigh. A left knee total arthroplasty is prese nt. IMPRESSION: 1. Periprosthetic fracture adjacent to the distal aspect of the intramedullary carley, at the level of the distal femoral diametaphysis. Signed: [facility] HospitalIsadora monge MDReport Verified Date/Time: 04/14/2020 16:41:36 Reading Location: [facility] Radiology Reading Room [facility], KNEE, COMPLETE (4 VIEWS), [id number] 16:39:00Reason for exam:->KNEE PAINReason for exam:->LEG PAINReason for exam:->WOUND CHECKReason for exam:->FALLShould this be performed at the bedside?->YesFINAL REPORT LEFT KNEE 2 VIEWS HISTORY: Left [...] aspect of the intramedullary carley. Signed: Isadora Hernandezort Verified Date/Time: 04/14/2020 16:39:33 Reading Location: [facility] Radiology Reading Room knee complete 4 views [id number] 16:39:00Interface, External Ris In - 04/14/2020 4:41 PM CDTFINAL REPORT LEFT KNEE 2 VIEWS HISTORY: Left [...] level of the distal aspect of the int ramedullary carley. Signed: Isadora Hernandezort Verified Date/Time: 04/14/2020 1 6:39:33 Reading Location: [facility] Radiology Reading Room Electronically matt d by: ISADORA HERNANDEZ MD on 04/14/2020 04:39 PM [facility], ANKLE, MIN 3 VIEWS, [id number] 16:35:00Reason for exam:->KNEE PAINReason for exam:->LEG PAINReason for exam:->WOUND CHECKReason for exam:->FALLShould this be performed at the bedside?->YesFINAL REPORT LEFT ANKLE 3 VIEWS HISTORY: Left ankle pain status post fall COMPARISON: No comparison left ankle imaging FINDINGS: AP, mortise, and lateral views the left ankle were performed. No fracture or dislocation are visualized. 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 There is a benign- appearing calcification in the posterior medial aspect of the distal leg. There is osteophyte is of the tibiotalar articulation. Arterial calcifications are present. IMPRESSION: No fracture or dislocation are visualized in the left ankle. Signed: Isadora Hernandez MDReport Verified Date/Time: 04/14/2020 16:35:15 Reading Location: [facility] Radiology Reading Room ankle 3 views [id number] 16:35:00Interface, External Ris In - 04/14/2020 4:37 PM CDTFINAL REPORT LEFT ANKLE 3 VIEWS HISTORY: Left [...] visualized in the left ankle. Signed: Isadora Hernandezeport Verified Date/Time: 04/14/2020 16:35:15 Reading Location: [facility] Radiology Reading Room [facility]TR[facility]ERNIN [id number] 15:42:00* Test Item Value Reference Range Interpretation Comments TROPONIN I (ELIAZAR) (test code = 397) 0.22 ng/mL 0.00-0.03 HH Troponin I (TnI) levels must be interpreted in the context of the presenting sym ptoms and the clinical findings. Elevated TnI levels indicate myocardial damage, but are not specific for ischemic heart disease. Elevated TnI levels are seen in patients with other cardiac conditions (including myocarditis and congestive h eart failure), and slight TnI elevations occur in patients with other conditions , including sepsis, renal failure, acidosis, acute neurological disease, and per sistent tachyarrhythmia.Director Of Collections And Archives ID - BSBASIC METABOLIC [id number] 15:35:00 * Test Item Value Reference Range Interpretation Comments SODIUM (BEAKER) (test code = 381) 137 meq/L 136-145 POTASSIUM (BEAKER) (test code = 379) 6.3 meq/L 3.5-5.1 HH Specimen slightly hemolyzed CHLORIDE (BEAKER) (test code = 382) 97 meq/L 98-107 L CO2 (BEAKER) (test code = 355) 23 meq/L 22-29 BLOOD UREA NITROGEN (BEAKER) (test code = 354) 73 mg/dL 7-21 H CREATININE (BEAKER) (test code = 358) 9.87 mg/dL 0.57-1.25 H Specimen slightly hemolyzed GLUCOSE RANDOM (BEAKER) (test code = 652) 133 mg/dL 70-105 H CALCIUM (BEAKER) (test code = 697) 7.5 mg/dL 8.4-10.2 L EGFR (BEAKER) (test code = 1092) 5 mL/min/1.73 sq m ESTIMATED GFR IS NOT ACCURATE CREATININE CLEARANCE IN PREDICTING GLOMERULAR FILTRATION RATE. ESTIMATED GFR IS NOT APPLICABLE FOR DIALYSIS PATIENTS. Director Of Collections And Archives ID - BSB-type Natriuretic Factor (BNP)2020-04-14 15:33:00* Test Item Value Reference Range Interpretation Comments BNP (test code = 06186-5) 347 pg/mL 0-100 H GABBY (test code = GABYB) Director Of Collections And Archives ID - BS Lab Interpretation (test code = 67361-3) Abnormal [facility] HospitalB-TYPE NATRIURETIC FACTOR (BNP)2020-04-14 15:33:00 * Test Item Value Reference Range Interpretation Comments B-TYPE NATRIURETIC PEPTIDE (BEAKER) (test code = 700) 347 pg/mL 0-100 H Director Of Collections And Archives ID - BSCardiac Enzymes - [id number] 15:28:00* Test Item Value Reference Range Interpretation Comments Total CK (test code = 2157-6) 52 U/L 29-200 GABBY (test code = GABBY) Director Of Collections And Archives ID - BS Lab Interpretation (test code = 87357-3) Normal [facility] HospitalCREATINE KINASE (CK)2020-04-14 15:28:00* Test Item Value Reference Range Interpretation Comments CREATINE KINASE TOTAL (BEAKER) (test code = 380) 52 U/L 29-20 0 Director Of Collections And Archives ID - BSPT/[id number] 15:14:00* Test Item Value Reference Range Interpretation Comments Protime (test code = 5902-2) 14.9 11.9- 14.2 seconds H INR (test code = 6301-6) 1.20 <=5.90 PTT (test code = 23568-5) 30.7 22.5- 36.0 seconds GABBY (test code = GABBY) Effective 12/11/2018: PT Refe rence Range ChangeNew: 11.9- 14.2 Previous: 11.7-14.7 RECOMMENDED COUMADIN/WARFARIN INR THERAPY RANGESSTANDARD DOSE: 2.0-3.0 Includes: PROPHYLAXIS for venous thrombosis, sys temic embolization; TREATMENT for venous thrombosis and/or pulmonary embolus.HIGH RISK: Target INR is 2.5-3.5 for patients wiht mechanical heart valves. Lab Interpretation (test code = 31750-4) Abnormal [facility] HospitalPT/[id number] 15:14:00* Test Item Value Reference Range Interpretation Comments PROTIME (BEAKER) (test code = 759) 14.9 seconds 11.9-14.2 H INR (BEAKER) (test code = 370) 1.20 <=5.90 PARTIAL THROMBOPLASTIN TIME (BEAKER) (test code = 760) 30.7 seconds 22.5-36.0 Effective 12/11/2018: PT Reference Range ChangeNew: 11.9-14.2 Previous: 11.7-14. 7RECOMMENDED COUMADIN/WARFARIN INR THERAPY RANGESSTANDARD DOSE: 2.0-3.0 Include s: PROPHYLAXIS for venous thrombosis, systemic embolization; TREATMENT for venou s thrombosis and/or pulmonary embolus.HIGH RISK: Target INR is 2.5-3.5 for patie nts wiht mechanical heart valves.CBC W/PLT COUNT & AUTO [id number] 15:04:00* Test Item Value Reference Range Interpretation Comments WHITE BLOOD CELL COUNT (BEAKER) (test code = 775) 4.9 K/ L 3.5- 10.5 RED BLOOD CELL COUNT (BEAKER) (test code = 761) 4.07 M/ L 3.93-5 .22 HEMOGLOBIN (BEAKER) (test code = 410) 11.7 GM/DL 11.2-15.7 HEMATOCRIT (BEAKER) (test code = 411) 39.4 % 34.1-44.9 MEAN CORPUSCULAR VOLUME (BEAKER) (test code = 753) 96.8 fL 79. 4-94.8 H MEAN CORPUSCULAR HEMOGLOBIN (BEAKER) (test code = 751) 28.7 pg 25.6-32.2 MEAN CORPUSCULAR HEMOGLOBIN CONC (BEAKER) (test code = 752) 29.7 GM/DL 32.2-35.5 L RED CELL DISTRIBUTION WIDTH (BEAKER) (test code = 412) 15.2 % 11.7-14.4 H PLATELET COUNT (BEAKER) (test code = 756) 220 K/CU MM 150-450 MEAN PLATELET VOLUME (BEAKER) (test code = 754) 12.2 fL 9.4-12 .3 NUCLEATED RED BLOOD CELLS (BEAKER) (test code = 413) 0 /100 WBC 0 -0 NEUTROPHILS RELATIVE PERCENT (BEAKER) (test code = 429) 67 % LYMPHOCYTES RELATIVE PERCENT (BEAKER) (test code = 430) 20 % MONOCYTES RELATIVE PERCENT (BEAKER) (test code = 431) 11 % EOSINOPHILS RELATIVE PERCENT (BEAKER) (test code = 432) 2 % BASOPHILS RELATIVE PERCENT (BEAKER) (test code = 437) 0 % NEUTROPHILS ABSOLUTE COUNT (BEAKER) (test code = 670) 3.29 K/ L 1.56-6.13 LYMPHOCYTES ABSOLUTE COUNT (BEAKER) (test code = 414) 0.95 K/ L 1.18-3.74 L MONOCYTES ABSOLUTE COUNT (BEAKER) (test code = 415) 0.53 K/ L 0. 24-0.36 H EOSINOPHILS ABSOLUTE COUNT (BEAKER) (test code = 416) 0.08 K/ L 0.04-0.36 BASOPHILS ABSOLUTE COUNT (BEAKER) (test code = 417) 0.02 K/ L 0. 01-0.08 IMMATURE GRANULOCYTES-RELATIVE PERCENT (BEAKER) (test code = 2801) 0 % 0-1 Blood leukocytes automated count (number/volume)2020-04-07 04:30:00* Test Item Value Reference Range Interpretation Comments White Blood Count (test code = 6690-2) 5.05 4.8-10.8 [facility] erythrocytes automated count (number/volume)2020-04-07 04:30:00* Test Item Value Reference Range Interpretation Comments Red Blood Count (test code = 789-8) 3.44 3.6-5.1 [facility] (moles/volume)2020-04-07 04:30:00* Test Item Value Reference Range Interpretation Comments Hemoglobin (test code = 27708-0) 10.3 12.0-16.0 [facility] CenterAutomated blood hematocrit (volume fraction)2020-04-07 04:30:00* Test Item Value Reference Range Interpretation Comments Hematocrit (test code = 4544-3) 34.4 34.2-44.1 [facility] CenterAutomated erythrocyte mean corpuscular [id number] 04:30:00* Test Item Value Reference Range Interpretation Comments Mean Corpuscular Volume (test code = 787-2) 100.0 81-99 [facility] CenterAutomated erythrocyte mean corpuscular hemoglobin (mass per erythrocyte)2020-04-07 04:30:00* Test Item Value Reference Range Interpretation Comments Mean Corpuscular Hemoglobin (test code = 785-6) 29.9 28-32 [facility] CenterAutomated erythrocyte mean corpuscular hemoglobin concentration measurement (mass/volume)2020-04-07 04:30:00* Test Item Value Reference Range Interpretation Comments Mean Corpuscular Hemoglobin Concent (test code = 786-4) 29.9 31-35 [facility] CenterRDW RywDh-[id number] 04:30:00* Test Item Value Reference Range Interpretation Comments Red Cell Distribution Width (test code = 56118-6) 16.5 11.7 -14.4 [facility] CenterAutomated blood platelet count (count/volume)2020-04-07 04:30:00* Test Item Value Reference Range Interpretation Comments Platelet Count (test code = 777-3) 147 140-360 [facility] neutrophil count as percentage of total emocybzlsh3326-08-47 04:30:00* Test Item Value Reference Range Interpretation Comments Neutrophils (%) (Auto) (test code = 96431-2) 63.3 38.7-80.0 [facility] CenterAutomated blood lymphocyte count as percentage ot total mwapyfwmwi5159-38-53 04:30:00* Test Item Value Reference Range Interpretation Comments Lymphocytes (%) (Auto) (test code = 736-9) 19.8 18.0-39.1 [facility] CenterAutomated blood monocyte count as percentage of total fsogxameqc9670-99-26 04:30:00* Test Item Value Reference Range Interpretation Comments Monocytes (%) (Auto) (test code = 5905-5) 13.1 4.4-11.3 [facility] CenterAutomated blood eosinophil count as percentage of total xaekjohrai4811-41-49 04:30:00* Test Item Value Reference Range Interpretation Comments Eosinophils (%) (Auto) (test code = 713-8) 3.2 0.0-6.0 [facility] CenterAutomated blood basophil count as percentage of total xjavbubtkh9658-33-42 04:30:00* Test Item Value Reference Range Interpretation Comments Basophils (%) (Auto) (test code = 706-2) 0.4 0.0-1.0 [facility] CenterFluoroscopic procedure less than one hour xvrefohm7917-11-76 04:30:00* Test Item Value Reference Range Interpretation Comments IM GRANULOCYTES % (test code = IM GRANULOCYTES %) 0.2 0.0- 1.0 [facility] CenterAutomated blood neutrophil count 2020-04-07 04:30:00* Test Item Value Reference Range Interpretation Comments Neutrophils # (Auto) (test code = 751-8) 3.2 2.1-6.9 [facility] CenterBlood lymphocytes count (number/volume) 2020-04-07 04:30:00* Test Item Value Reference Range Interpretation Comments Lymphocytes # (Auto) (test code = 88388-8) 1.0 1.0-3.2 [facility] CenterBlood monocytes automated count (number/volume)2020-04-07 04:30:00* Test Item Value Reference Range Interpretation Comments Monocytes # (Auto) (test code = 742-7) 0.7 0.2-0.8 [facility] CenterAutomated blood eosinophil count 2020-04-07 04:30:00* Test Item Value Reference Range Interpretation Comments Eosinophils # (Auto) (test code = 711-2) 0.2 0.0-0.4 [facility] CenterAutomated blood basophil count (count/volume)2020-04-07 04:30:00* Test Item Value Reference Range Interpretation Comments Basophils # (Auto) (test code = 704-7) 0.0 0.0-0.1 [facility] CenterFluoroscopic procedure less than one hour dnvcvjbu0635-63-06 04:30:00* Test Item Value Reference Range Interpretation Comments Absolute Immature Granulocyte (auto (toby t code = Absolute Immature Granulocyte (auto) 0.01 0-0.1 [facility] Lakeerum or plasma sodium measurement (moles/volume)2020-04-07 04:30:00* Test Item Value Reference Range Interpretation Comments Sodium Level (test code = 2951-2) 143 136-145 [facility] Lakeerum or plasma potassium measurement (moles/volume)2020-04-07 04:30:00* Test Item Value Reference Range Interpretation Comments Potassium Level (test code = 2823-3) 4.9 3.5-5.1 [facility] Lakeerum or plasma chloride measurement (moles/volume)2020-04-07 04:30:00* Test Item Value Reference Range Interpretation Comments Chloride Level (test code = 2075-0) 104 98-107 [facility] Lakeerum or plasma carbon dioxide, total measurement (moles/volume)2020-04-07 04:30:00* Test Item Value Reference Range Interpretation Comments Carbon Dioxide Level (test code = 2028-9) 27 22-29 [facility] Lakeerum or plasma anion biw8565-07-39 04:30:00* Test Item Value Reference Range Interpretation Comments Anion Gap (test code = 97430-7) 16.9 8-16 [facility] Lakeerum or plasma urea nitrogen measurement (mass/volume)2020-04-07 04:30:00* Test Item Value Reference Range Interpretation Comments Blood Urea Nitrogen (test code = 3094-0) 38 7-26 [facility] Lakeerum or plasma creatinine measurement (mass/volume)2020-04-07 04:30:00* Test Item Value Reference Range Interpretation Comments Creatinine (test code = 2160-0) 5.77 0.57-1.11 [facility] Lakeerum or plasma urea nitrogen/creatinine mass gasol2958-94-77 04:30:00* Test Item Value Reference Range Interpretation Comments BUN/Creatinine Ratio (test code = 3097-3) 7 6-25 [facility] CenterEstimated glomerular filtration rate (GFR) hwljevdeavqqk2711-01-47 04:30:00* Test Item Value Reference Range Interpretation Comments Estimat Glomerular Filtration Rate (test code = 933536829) 9 >60 Ranges were taken from the National Kidney Disease Education Program and the [facility] Foundation literature.Reference ranges:60 or greater: Cofatk22-26 ( for 3 consecutive months): Chronic kidney disease 15 or less: Kidney failureKnapp Medical CenterGlucose edznflwddag6521-36-94 04:30:00* Test Item Value Reference Range Interpretation Comments Glucose Level (test code = WDF5867) 127 74-118 [facility] Lakeerum or plasma calcium measurement (mass/volume)2020-04-07 04:30:00* Test Item Value Reference Range Interpretation Comments Calcium Level (test code = 51921-2) 7.4 8.4-10.2 [facility] CenterHIP LEFT 2-3 VW (+/- PELVIS)2020-04-06 17:23:00 [facility] [address] [place] [address] Patient Name: ANGELA JEFFERS MR #: [id number] : 1945 Age/Sex: 75/F Req #: [id number] Adm Physician: CHERELLE VELASQUEZ MD Ordered by: CHERELLE VELASQUEZ MD Report #: [id number] Location: [facility] Room/Bed: [place] [address] Procedure: [id number] DX/HIP LEFT 2 -3 VW (+/- PELVIS) Exam Date: Exam Time: REPORT STATUS: Signed X-ray pelvis left f emur, 3 views. HISTORY: Hip pain. COMPARISON: None available. FINDINGS/IMPRESSION: Status post left femoral intramedullary nail placement for incompletely healed left femur fracture. No additional fracture identified . There are symmetric degenerative changes of the bilateral sacroiliac joints. There are moderate to severe degenerative changes of the bilateral hip s. There is multilevel degenerative changes of the lower lumbar spine. A therosclerotic vascular calcification. Signed by: Alejandra Molina MD on 2019 5:40 PM Dictated By: ALEJANDRA MOLINA MD 39 Transcribed By: ARIEL on 04/06/201739 COPY TO: CHERELLE VELASQUEZ MD Serum or plasma total bilirubin measurement (mass/volume)2020-04-06 04:40:00* Test Item Value Reference Range Interpretation Comments Total Bilirubin (test code = 1975-2) 0.5 0.2-1.2 [facility] CenterFluoroscopic procedure less than one hour tzzpxhzz6367-63-71 04:40:00* Test Item Value Reference Range Interpretation Comments Aspartate Amino Transf (AST/SGOT) (test code = Aspartate Amino Transf (AST/SGOT)) 12 5-34 [facility] Lakeerum or plasma alanine aminotransferase measurement (enzymatic activity/volume)2020-04-06 04:40:00* Test Item Value Reference Range Interpretation Comments Alanine Aminotransferase (ALT/SGPT) (test code = 1742-6) 8 0-55 [facility] Lakeerum or plasma protein measurement (mass/volume)2020-04-06 04:40:00* Test Item Value Reference Range Interpretation Comments Total Protein (test code = 2885-2) 7.1 6.5-8.1 [facility] Lakeerum or plasma albumin measurement (mass/volume)2020-04-06 04:40:00* Test Item Value Reference Range Interpretation Comments Albumin (test code = 1751-7) 3.1 3.5-5.0 [facility] CenterPlasma globulin measurement (mass/volume) 2020-04-06 04:40:00* Test Item Value Reference Range Interpretation Comments Globulin (test code = 45057-9) 4.0 2.3-3.5 [facility] Lakeerum or plasma albumin/globulin mass vjtwp3236-00-87 04:40:00* Test Item Value Reference Range Interpretation Comments Albumin/Globulin Ratio (test code = 1759-0) 0.8 0.8-2.0 [facility] Lakeerum or plasma alkaline phosphatase measurement (enzymatic activity/volume)2020-04-06 04:40:00* Test Item Value Reference Range Interpretation Comments Alkaline Phosphatase (test code = 6768-6) 101 40-150 [facility] Lakeerum or plasma creatine kinase measurement (enzymatic activity/volume)2020-04-06 04:40:00* Test Item Value Reference Range Interpretation Comments Creatine Kinase (test code = 2157-6) 43 29-168 [facility] Lakeerum or plasma creatine kinase MB measurement (mass/volume)2020-04-06 04:40:00* Test Item Value Reference Range Interpretation Comments Creatine Kinase MB (test code = 60059-1) 2.10 0-5.0 [facility] CenterTroponin I measurement by highly sensitive enzyme mtkstzmnlfc2232-13-99 04:40:00* Test Item Value Reference Range Interpretation Comments Troponin I (test code = 00147-8) 0.064 0-0.300 [facility] Lakeerum or plasma thyrotropin measurement by detection limit <= 0.005 miu/l (units/volume)2020-04-06 04:40:00* Test Item Value Reference Range Interpretation Comments Thyroid Stimulating Hormone (TSH) (test code = 74656-0) 11.746 0.350-4.940 [facility] CenterClostridium difficile A and B toxin assay 2020-04-06 00:46:00* Test Item Value Reference Range Interpretation Comments Clostridium Difficile Toxin A & B (test code = 491011684) NEGATIVE NEGATIVE Testing on stool aspirate specimens is outside hotel clerk claims since specime n type not validated on this assay.[facility] CenterHIP LEFT 2-3 VW (+/- PELVIS)2020-04-05 23:15:00 [facility] [address] [place] [address] Patient Name: ANGELA JEFFERS MR #: [id number] : 1945 Age/Sex: 75/F Req #: Adm Physician: CHERELLE VELASQUEZ MD Ordered by: Report #: [id number] Location: [facility] Room/Bed: [place] [address] Procedure: Exam Date: Exam Time: REPORT STATUS: Cancel led HIP RIGHT 2-3 VW (+/- PELVIS) - 3 views HISTORY: Pain COMPARISON: CT pelvis dated 09/04/2019 FINDINGS: Limited by body habitus. No d efinite evidence of acute displaced fracture or dislocation. Degenerative hernandez ges of bilateral hip joints. Prior left femoral intramedullary carley and screw f ixation. Degenerative changes of lumbar spine and SI joints. Vascular calcif ications. IMPRESSION: No definite evidence of acute displaced f racture or dislocation of the right hip. Limited for evaluation of small nondi splaced fractures due to body habitus. Prior left femoral fixation. Si gned by: Dr. Lou Ayala MD on 04/05/2020 11:20 PM Dictated By: LOU AMADOR MD 1700 COPY TO: HIP RIGHT 2-3 VW (+/- PELVIS) 2020-04-05 23:15:00 [facility] [place] [address] Patient Name: ANGELA JEFFERS MR #: [id number] : 1945 Age/Sex: 75/F Req #: [id number] [facility] Physician: CHERELLE VELASQUEZ MD Ordered by: CHERELLE VELASQUEZ MD Report #: [id number] Location: [facility] Room/Bed: [place] [address] Procedure: [id number] DX/HIP RIGHT 2-3 VW (+/- PELVIS) Exam Date: Exam Time: REPORT STATUS: Signed HIP RIGHT 2-3 VW ( +/- PELVIS) - 3 views HISTORY: Pain COMPARISON: CT pelvis dated 0 FINDINGS: Limited by body habitus. No definite evidence of acute displaced fracture or dislocation. Degenerative changes of bilateral hip join ts. Prior left femoral intramedullary carley and screw fixation. Degenerative c hanges of lumbar spine and SI joints. Vascular calcifications. IMPR ESSION: No definite evidence of acute displaced fracture or dislocation of the right hip. Limited for evaluation of small nondisplaced fractures due to body habitus. Prior left femoral fixation. Signed by: Dr. Lou Perez i, MD on 04/05/2020 11:20 PM Dictated By: LOU AYALA MD 1043 Transcribed By: ARIEL on 1043 COPY TO: CHERELLE VELASQUEZ MD Serum hepatitis B virus surface antibody assay by radioimmunoassay (units/volume)2020-04-05 19:30:00* Test Item Value Reference Range Interpretation Comments Hepatitis B Surface Antibody, Quant (test code = 5194-6) 187.9 Immunity>9.9 Status of Immunity Anti-HBs Level Inconsistent with Immunity 0.0 - 9.9Consistent with Immunity >9.9[facility] or plasma hepatitis B virus surface antigen detection by [id number] 19:30:00* Test Item Value Reference Range Interpretation Comments Hepatitis B Surface Antigen (test code = 5196-1) Negative Negat jinny Performed at: [facility] [id number] Director: Ronald Arcos MD, Phone: [phone] Medical CenterFluoroscopic procedure less than one hour [id number] 16:04:00* Test Item Value Reference Range Interpretation Comments Coronavirus (PCR) (test code = Coronavirus (PCR)) NOT DETECTED NOTD ETECTED SARS-CoV-2 PCRHologic Aptima SARS-CoV-2 assay is a nucleic amplification test in tended for the qualitative detection of RNA from SARS-CoV-2 from nasopharyngeal (BRASS MOLDER) specimens. It is used under Emergency Use Authorization (EUA) by FDA.A posi tive result is indicative of the presence of SARS-CoV-2 RNA. Clinical correlatio n with patient history and other diagnostic information is necessary to determin e patient infection status.A negative (Not Detected) result does not preclude SA RS-CoV-2 infection. Clinical Correlation with patient history and other diagnost ic information should be used in patient management decisions.Invalid: Unable to generate a valid result on this specimen. Please submit a new specimen for repr at testing oc clinically indicated.Tesing performed by:[facility] Laboratory Services[address] [place] [id number], Trey saeed MD, PhDKnapp Medical CenterProthrombin time (PT) in platelet poor plasma by coagulation [id number] 16:00:00* Test Item Value Reference Range Interpretation Comments Prothrombin Time (test code = 5902-2) 15.2 11.9-14.5 [facility] CenterINR in Platelet poor plasma by Coagulation [id number] 16:00:00* Test Item Value Reference Range Interpretation Comments Prothromb Time International Ratio (test code = 6301-6) 1.14 Oral Anticoagulant Therapy INR Values:1. Low Intensity Therapy 1.5 - 2.02 . Moderate Intensity Therapy 2.0 - 3.03. High Intensity Therapy(1) 2.5 - 3. 54. High Intensity Therapy(2) 3.0 - 4.05. Panic Value INR > 5.0 [facility] CenterActivated partial thromboplastin time (aPTT) in platelet poor plasma by coagulation [id number] 16:00:00* Test Item Value Reference Range Interpretation Comments Activated Partial Thromboplast Time (test code = 10354-7) 40.4 23.8-35.5 [facility] or plasma magnesium measurement (mass/volume)2020-04-05 16:00:00* Test Item Value Reference Range Interpretation Comments Magnesium Level (test code = 48921-1) 2.4 1.3-2.1 [facility] CenterCHEST SINGLE (PORTABLE)2020-04-05 15:53:00 [place] [address] Patient Name: ANGELA JEFFERS MR #: [id number] : 1945 Age/Sex: 75/F Req #: [id number] Adm Physician: Ordered by: WILLIE SCHWARTZ MD Report #: [id number] Location: ER Room/Bed: Procedure: [id number] DX/CHEST SING LE (PORTABLE) Exam Date: 04/05/20 Exam Time: 1530 REPORT STATUS: Signed EXAMINATION: CHEST SINGLE (PORTABLE) INDICATION: Shortness of breath COMPARIS ON: Chest radiograph 11/14/2019 FINDINGS: LINES/TUBES:EKG leads ove rlie the chest. LUNGS:The lungs are moderately inflated. There is perihilar fullness and indistinctness of the pulmonary vasculature. No focal consolidat ion. PLEURA:No pleural effusion or pneumothorax. MEDIASTINUM:Cardiomeg ananth, increased from the prior radiograph of 11/14/2019. Atherosclerotic calcific ations of the thoracic aorta. BONES/SOFT TISSUES:No acute osseous injury. Surgical clips in the neck. ABDOMEN:No free air under the diaphragm. IMPRESSION: Cardiomegaly and pulmonary interstitial edema. No focal pneumon ia. Signed by: Gustavo To MD on 04/05/2020 3:54 PM Dictated By: KASI TO MD 53 Transcribed By: ARIEL on 04/05/201553 COPY TO: WILLIE SCHAWRTZ MD Prepare Leuko-Red [id number] 23:54:00* Test Item Value Reference Range Interpretation Comments CROSSMATCH (test code = 2264) COMPATIBLE Unit ABO (test code = 6660946) B Neg UNIT NUMBER (test code = 934-0) [id number] Status (test code = 0796717) TX_TIMEINCHART Blood Bank Product (test code = 2263) RED BLOOD CELLS PRODUCT CODE (test code = 933-2) [id number] [facility] [id number] 16:36:00* Test Item Value Reference Range Interpretation Comments POC-GLUCOSE METER (BEAKER) (test code = 1538) 170 mg/dL 70-110 H : TESTED AT [place] [id number] [facility], [address]: Director Of Collections And Archives/Residential Advisor ID = [id number] for AYUSH, JEFFERY POCT-GLUCOSE [id number] 11:47:00* Test Item Value Reference Range Interpretation Comments POC-GLUCOSE METER (BEAKER) (test code = 1538) 162 mg/dL 70-110 H : TESTED AT [place] [id number] [facility], [address]: Director Of Collections And Archives/Residential Advisor ID = [id number] for AYUSH, JEFFERY POCT-GLUCOSE [id number] 08:12:00* Test Item Value Reference Range Interpretation Comments POC-GLUCOSE METER (BEAKER) (test code = 1538) 136 mg/dL 70-110 H : TESTED AT [facility] [address] [place], [address]: Director Of Collections And Archives/Residential Advisor ID = [id number] for JEFFERY PEACOCK CBC W/PLT COUNT & AUTO [id number] 05:51:00* Test Item Value Reference Range Interpretation Comments WHITE BLOOD CELL COUNT (BEAKER) (test code = 775) 7.0 K/ L 3.5- 10.5 RED BLOOD CELL COUNT (BEAKER) (test code = 761) 2.79 M/ L 3.93-5 .22 L HEMOGLOBIN (BEAKER) (test code = 410) 8.3 GM/DL 11.2-15.7 L HEMATOCRIT (BEAKER) (test code = 411) 26.2 % 34.1-44.9 L MEAN CORPUSCULAR VOLUME (BEAKER) (test code = 753) 93.9 fL 79. 4-94.8 MEAN CORPUSCULAR HEMOGLOBIN (BEAKER) (test code = 751) 29.7 pg 25.6-32.2 MEAN CORPUSCULAR HEMOGLOBIN CONC (BEAKER) (test code = 752) 31.7 GM/DL 32.2-35.5 L RED CELL DISTRIBUTION WIDTH (BEAKER) (test code = 412) 15.5 % 11.7-14.4 H PLATELET COUNT (BEAKER) (test code = 756) 133 K/CU MM 150-450 L MEAN PLATELET VOLUME (BEAKER) (test code = 754) 12.0 fL 9.4-12 .3 NUCLEATED RED BLOOD CELLS (BEAKER) (test code = 413) 0 /100 WBC 0 -0 NEUTROPHILS RELATIVE PERCENT (BEAKER) (test code = 429) 79 % LYMPHOCYTES RELATIVE PERCENT (BEAKER) (test code = 430) 10 % MONOCYTES RELATIVE PERCENT (BEAKER) (test code = 431) 9 % EOSINOPHILS RELATIVE PERCENT (BEAKER) (test code = 432) 2 % BASOPHILS RELATIVE PERCENT (BEAKER) (test code = 437) 0 % NEUTROPHILS ABSOLUTE COUNT (BEAKER) (test code = 670) 5.54 K/ L 1.56-6.13 LYMPHOCYTES ABSOLUTE COUNT (BEAKER) (test code = 414) 0.68 K/ L 1.18-3.74 L MONOCYTES ABSOLUTE COUNT (BEAKER) (test code = 415) 0.62 K/ L 0. 24-0.36 H EOSINOPHILS ABSOLUTE COUNT (BEAKER) (test code = 416) 0.12 K/ L 0.04-0.36 BASOPHILS ABSOLUTE COUNT (BEAKER) (test code = 417) 0.01 K/ L 0. 01-0.08 IMMATURE GRANULOCYTES-RELATIVE PERCENT (BEAKER) (test code = 2801) 0 % 0-1 BASIC METABOLIC [id number] 05:32:00* Test Item Value Reference Range Interpretation Comments SODIUM (BEAKER) (test code = 381) 139 meq/L 136-145 POTASSIUM (BEAKER) (test code = 379) 4.3 meq/L 3.5-5.1 CHLORIDE (BEAKER) (test code = 382) 102 meq/L 98-107 CO2 (BEAKER) (test code = 355) 27 meq/L 22-29 BLOOD UREA NITROGEN (BEAKER) (test code = 354) 26 mg/dL 7-21 H CREATININE (BEAKER) (test code = 358) 4.22 mg/dL 0.57-1.25 H GLUCOSE RANDOM (BEAKER) (test code = 652) 140 mg/dL 70-105 H CALCIUM (BEAKER) (test code = 697) 8.4 mg/dL 8.4-10.2 EGFR (BEAKER) (test code = 1092) 13 mL/min/1.73 sq m ESTIMATED GFR IS NOT ACCURATE CREATININE CLEARANCE IN PREDICTING GLOMERULAR FILTRATION RATE. ESTIMATED GFR IS NOT APPLICABLE FOR DIALYSIS PATIENTS. Director Of Collections And Archives ID - [id number] 05:31:00* Test Item Value Reference Range Interpretation Comments PHOSPHORUS (BEAKER) (test code = 604) 3.7 mg/dL 2.3-4.7 Director Of Collections And Archives ID - [id number] 05:31:00* Test Item Value Reference Range Interpretation Comments MAGNESIUM (BEAKER) (test code = 627) 1.9 mg/dL 1.6-2.6 Director Of Collections And Archives ID - EDASIPOCT-GLUCOSE [id number] 22:09:00* Test Item Value Reference Range Interpretation Comments POC-GLUCOSE METER (BEAKER) (test code = 1538) 111 mg/dL 70-110 H : TESTED AT [address], [address]: Director Of Collections And Archives/Residential Advisor ID = [id number] for ERIK SANTANA POCT-GLUCOSE [id number] 15:41:00* Test Item Value Reference Range Interpretation Comments POC-GLUCOSE METER (BEAKER) (test code = 1538) 122 mg/dL 70-110 H : TESTED AT [facility] [address] [facility], [address]: Director Of Collections And Archives/Residential Advisor ID = [id number] for Saran Hall POCT-GLUCOSE [id number] 13:43:00* Test Item Value Reference Range Interpretation Comments POC-GLUCOSE METER (BEAKER) (test code = 1538) 118 mg/dL 70-110 H : TESTED AT [facility] [address] [facility], [address]: Director Of Collections And Archives/Residential Advisor ID = [id number] for Saran Hall Type and screen, [id number] 12:01:00* Test Item Value Reference Range Interpretation Comments ABO/RH AUTOMATED (BEAKER) (test code = 2260) B POSITIVE Ab Scrn (test code = 890-4) NEGATIVE [facility] HospitalFERRITIN2020-08-17 11:40:00* Test Item Value Reference Range Interpretation Comments FERRITIN (BEAKER) (test code = 361) 1153.25 ng/mL 5.00-275.00 H Director Of Collections And Archives ID - EDASIIron, [id number] 11:21:00* Test Item Value Reference Range Interpretation Comments Iron (test code = 2498-4) 22.0 ug/dL 40-160 L Lab Interpretation (test code = 34126-3) Abnormal [facility], TIBC, % SAT. (WITHOUT FERRITIN)2020-03-01 11:21:00* Test Item Value Reference Range Interpretation Comments IRON (BEAKER) (test code = 547) 22.0 ug/dL 40.0-160.0 L TOTAL IRON BINDING CAPACITY (BEAKER) (test code = 769) 126 ug/dL 250-450 L IRON % SATURATION (2) (BEAKER) (test code = 2590) 17 % 20-5 5 L Director Of Collections And Archives ID - EDASIIRON, [id number] 11:21:00* Test Item Value Reference Range Interpretation Comments IRON (BEAKER) (test code = 547) 22.0 ug/dL 40.0-160.0 L Reticulocyte [id number] 10:46:00* Test Item Value Reference Range Interpretation Comments % Retic (test code = 97775-4) 2.6 % 0.5-1.7 H GABBY (test code = GABBY) Director Of Collections And Archives ID - [id number] Lab Interpretation (test code = 00292-2) Abnormal [facility]RETICULOCYTE [id number] 10:46:00* Test Item Value Reference Range Interpretation Comments RETICULOCYTE COUNT PCT (BEAKER) (test code = 575) 2.6 % 0.5- 1.7 H Director Of Collections And Archives ID - [id number]-GLUCOSE [id number] 07:29:00* Test Item Value Reference Range Interpretation Comments POC-GLUCOSE METER (BEAKER) (test code = 1538) 147 mg/dL 70-110 H : TESTED AT [address], [address]: Director Of Collections And Archives/Residential Advisor ID = [id number] for Saran Hall BASIC METABOLIC [id number] 05:45:00* Test Item Value Reference Range Interpretation Comments SODIUM (BEAKER) (test code = 381) 134 meq/L 136-145 L POTASSIUM (BEAKER) (test code = 379) 4.0 meq/L 3.5-5.1 CHLORIDE (BEAKER) (test code = 382) 97 meq/L 98-107 L CO2 (BEAKER) (test code = 355) 27 meq/L 22-29 BLOOD UREA NITROGEN (BEAKER) (test code = 354) 42 mg/dL 7-21 H CREATININE (BEAKER) (test code = 358) 6.34 mg/dL 0.57-1.25 H GLUCOSE RANDOM (BEAKER) (test code = 652) 165 mg/dL 70-105 H CALCIUM (BEAKER) (test code = 697) 7.9 mg/dL 8.4-10.2 L EGFR (BEAKER) (test code = 1092) 8 mL/min/1.73 sq m ESTIMATED GFR IS NOT ACCURATE CREATININE CLEARANCE IN PREDICTING GLOMERULAR FILTRATION RATE. ESTIMATED GFR IS NOT APPLICABLE FOR DIALYSIS PATIENTS. Director Of Collections And Archives ID - [id number] 05:29:00* Test Item Value Reference Range Interpretation Comments PHOSPHORUS (BEAKER) (test code = 604) 4.6 mg/dL 2.3-4.7 Director Of Collections And Archives ID - [id number] 05:29:00* Test Item Value Reference Range Interpretation Comments MAGNESIUM (BEAKER) (test code = 627) 2.0 mg/dL 1.6-2.6 Director Of Collections And Archives ID - DBCBC W/PLT COUNT & AUTO [id number] 05:27:00* Test Item Value Reference Range Interpretation Comments WHITE BLOOD CELL COUNT (BEAKER) (test code = 775) 8.0 K/ L 3.5- 10.5 RED BLOOD CELL COUNT (BEAKER) (test code = 761) 2.35 M/ L 3.93-5 .22 L HEMOGLOBIN (BEAKER) (test code = 410) 6.7 GM/DL 11.2-15.7 L HEMATOCRIT (BEAKER) (test code = 411) 21.7 % 34.1-44.9 L MEAN CORPUSCULAR VOLUME (BEAKER) (test code = 753) 92.3 fL 79. 4-94.8 MEAN CORPUSCULAR HEMOGLOBIN (BEAKER) (test code = 751) 28.5 pg 25.6-32.2 MEAN CORPUSCULAR HEMOGLOBIN CONC (BEAKER) (test code = 752) 30.9 GM/DL 32.2-35.5 L RED CELL DISTRIBUTION WIDTH (BEAKER) (test code = 412) 15.6 % 11.7-14.4 H PLATELET COUNT (BEAKER) (test code = 756) 124 K/CU MM 150-450 L MEAN PLATELET VOLUME (BEAKER) (test code = 754) 12.3 fL 9.4-12 .3 NUCLEATED RED BLOOD CELLS (BEAKER) (test code = 413) 0 /100 WBC 0 -0 NEUTROPHILS RELATIVE PERCENT (BEAKER) (test code = 429) 78 % LYMPHOCYTES RELATIVE PERCENT (BEAKER) (test code = 430) 10 % MONOCYTES RELATIVE PERCENT (BEAKER) (test code = 431) 10 % EOSINOPHILS RELATIVE PERCENT (BEAKER) (test code = 432) 2 % BASOPHILS RELATIVE PERCENT (BEAKER) (test code = 437) 0 % NEUTROPHILS ABSOLUTE COUNT (BEAKER) (test code = 670) 6.16 K/ L 1.56-6.13 H LYMPHOCYTES ABSOLUTE COUNT (BEAKER) (test code = 414) 0.83 K/ L 1.18-3.74 L MONOCYTES ABSOLUTE COUNT (BEAKER) (test code = 415) 0.80 K/ L 0. 24-0.36 H EOSINOPHILS ABSOLUTE COUNT (BEAKER) (test code = 416) 0.12 K/ L 0.04-0.36 BASOPHILS ABSOLUTE COUNT (BEAKER) (test code = 417) 0.01 K/ L 0. 01-0.08 IMMATURE GRANULOCYTES-RELATIVE PERCENT (BEAKER) (test code = 2801) 0 % 0-1 Prepare [id number] 23:54:00* Test Item Value Reference Range Interpretation Comments CROSSMATCH (test code = 2264) COMPATIBLE Unit ABO (test code = 7569943) B Pos UNIT NUMBER (test code = 934-0) [id number] Status (test code = 0724945) TX_TIMEINCHART Blood Bank Product (test code = 2263) RED BLOOD CELLS PRODUCT CODE (test code = 933-2) [id number] [facility] [id number] 20:57:00* Test Item Value Reference Range Interpretation Comments POC-GLUCOSE METER (BEAKER) (test code = 1538) 119 mg/dL 70-110 H : TESTED AT [address], [address]: Director Of Collections And Archives/Residential Advisor ID = [id number] for FILOMENA BELKYS STERLING POCT-GLUCOSE [id number] 17:04:00* Test Item Value Reference Range Interpretation Comments POC-GLUCOSE METER (BEAKER) (test code = 1538) 115 mg/dL 70-110 H : Notified RN/MD: TESTED AT [address], [address]: Director Of Collections And Archives/Residential Advisor ID = [id number] for ALEKINGA ARRIOLA POCT-GLUCOSE [id number] 11:46:00* Test Item Value Reference Range Interpretation Comments POC-GLUCOSE METER (BEAKER) (test code = 1538) 105 mg/dL 70-110 : TESTED AT [address], [address]: Director Of Collections And Archives/Residential Advisor ID = [id number] for MALIKA BRUCE POCT-GLUCOSE [id number] 08:04:00* Test Item Value Reference Range Interpretation Comments POC-GLUCOSE METER (BEAKER) (test code = 1538) 100 mg/dL 70-110 : TESTED AT [address], [address]: Director Of Collections And Archives/Residential Advisor ID = [id number] for MALIKA BRUCE BASIC METABOLIC [id number] 07:39:00* Test Item Value Reference Range Interpretation Comments SODIUM (BEAKER) (test code = 381) 141 meq/L 136-145 POTASSIUM (BEAKER) (test code = 379) 4.0 meq/L 3.5-5.1 CHLORIDE (BEAKER) (test code = 382) 103 meq/L 98-107 CO2 (BEAKER) (test code = 355) 25 meq/L 22-29 BLOOD UREA NITROGEN (BEAKER) (test code = 354) 32 mg/dL 7-21 H CREATININE (BEAKER) (test code = 358) 5.11 mg/dL 0.57-1.25 H GLUCOSE RANDOM (BEAKER) (test code = 652) 85 mg/dL 70-105 CALCIUM (BEAKER) (test code = 697) 7.9 mg/dL 8.4-10.2 L EGFR (BEAKER) (test code = 1092) 10 mL/min/1.73 sq m ESTIMATED GFR IS NOT ACCURATE CREATININE CLEARANCE IN PREDICTING GLOMERULAR FILTRATION RATE. ESTIMATED GFR IS NOT APPLICABLE FOR DIALYSIS PATIENTS. Director Of Collections And Archives ID - JUNI [id number] 07:05:00* Test Item Value Reference Range Interpretation Comments PHOSPHORUS (BEAKER) (test code = 604) 4.4 mg/dL 2.3-4.7 Director Of Collections And Archives ID - JUNI [id number] 07:05:00* Test Item Value Reference Range Interpretation Comments MAGNESIUM (BEAKER) (test code = 627) 1.9 mg/dL 1.6-2.6 Director Of Collections And Archives ID - JUNI LCBC W/PLT COUNT & AUTO [id number] 05:48:00* Test Item Value Reference Range Interpretation Comments WHITE BLOOD CELL COUNT (BEAKER) (test code = 775) 6.8 K/ L 3.5- 10.5 RED BLOOD CELL COUNT (BEAKER) (test code = 761) 2.64 M/ L 3.93-5 .22 L HEMOGLOBIN (BEAKER) (test code = 410) 7.6 GM/DL 11.2-15.7 L HEMATOCRIT (BEAKER) (test code = 411) 24.9 % 34.1-44.9 L MEAN CORPUSCULAR VOLUME (BEAKER) (test code = 753) 94.3 fL 79. 4-94.8 MEAN CORPUSCULAR HEMOGLOBIN (BEAKER) (test code = 751) 28.8 pg 25.6-32.2 MEAN CORPUSCULAR HEMOGLOBIN CONC (BEAKER) (test code = 752) 30.5 GM/DL 32.2-35.5 L RED CELL DISTRIBUTION WIDTH (BEAKER) (test code = 412) 16.2 % 11.7-14.4 H PLATELET COUNT (BEAKER) (test code = 756) 103 K/CU MM 150-450 L MEAN PLATELET VOLUME (BEAKER) (test code = 754) 12.5 fL 9.4-12 .3 H NUCLEATED RED BLOOD CELLS (BEAKER) (test code = 413) 0 /100 WBC 0 -0 NEUTROPHILS RELATIVE PERCENT (BEAKER) (test code = 429) 77 % LYMPHOCYTES RELATIVE PERCENT (BEAKER) (test code = 430) 10 % MONOCYTES RELATIVE PERCENT (BEAKER) (test code = 431) 10 % EOSINOPHILS RELATIVE PERCENT (BEAKER) (test code = 432) 3 % BASOPHILS RELATIVE PERCENT (BEAKER) (test code = 437) 0 % NEUTROPHILS ABSOLUTE COUNT (BEAKER) (test code = 670) 5.22 K/ L 1.56-6.13 LYMPHOCYTES ABSOLUTE COUNT (BEAKER) (test code = 414) 0.69 K/ L 1.18-3.74 L MONOCYTES ABSOLUTE COUNT (BEAKER) (test code = 415) 0.67 K/ L 0. 24-0.36 H EOSINOPHILS ABSOLUTE COUNT (BEAKER) (test code = 416) 0.19 K/ L 0.04-0.36 BASOPHILS ABSOLUTE COUNT (BEAKER) (test code = 417) 0.01 K/ L 0. 01-0.08 IMMATURE GRANULOCYTES-RELATIVE PERCENT (BEAKER) (test code = 2801) 0 % 0-1 POCT-GLUCOSE [id number] 05:39:00* Test Item Value Reference Range Interpretation Comments POC-GLUCOSE METER (BEAKER) (test code = 1538) 111 mg/dL 70-110 H : TESTED AT [address], [address]: Director Of Collections And Archives/Residential Advisor ID = [id number] for REUBEN PALOMO POCT-GLUCOSE [id number] 05:34:00* Test Item Value Reference Range Interpretation Comments POC-GLUCOSE METER (BEAKER) (test code = 1538) 119 mg/dL 70-110 H : TESTED AT [facility] [address] [facility], [address]: Director Of Collections And Archives/Residential Advisor ID = [id number] for CHERELLE GALLEGOSABEL POCT-GLUCOSE [id number] 05:30:00* Test Item Value Reference Range Interpretation Comments POC-GLUCOSE METER (BEAKER) (test code = 1538) 134 mg/dL 70-110 H : TESTED AT [place] [id number] [facility], [address]: Director Of Collections And Archives/Residential Advisor ID = [id number] for Bianka Trevizo POCT-GLUCOSE [id number] 05:23:00* Test Item Value Reference Range Interpretation Comments POC-GLUCOSE METER (BEAKER) (test code = 1538) 131 mg/dL 70-110 H : TESTED AT [facility] [address] [facility], [address]: Director Of Collections And Archives/Residential Advisor ID = [id number] for PING TURNER CBC W/PLT COUNT & AUTO [id number] 06:16:00* Test Item Value Reference Range Interpretation Comments WHITE BLOOD CELL COUNT (BEAKER) (test code = 775) 8.6 K/ L 3.5- 10.5 RED BLOOD CELL COUNT (BEAKER) (test code = 761) 2.15 M/ L 3.93-5 .22 L HEMOGLOBIN (BEAKER) (test code = 410) 6.2 GM/DL 11.2-15.7 L HEMATOCRIT (BEAKER) (test code = 411) 20.1 % 34.1-44.9 L MEAN CORPUSCULAR VOLUME (BEAKER) (test code = 753) 93.5 fL 79. 4-94.8 MEAN CORPUSCULAR HEMOGLOBIN (BEAKER) (test code = 751) 28.8 pg 25.6-32.2 MEAN CORPUSCULAR HEMOGLOBIN CONC (BEAKER) (test code = 752) 30.8 GM/DL 32.2-35.5 L RED CELL DISTRIBUTION WIDTH (BEAKER) (test code = 412) 15.6 % 11.7-14.4 H PLATELET COUNT (BEAKER) (test code = 756) 114 K/CU MM 150-450 L MEAN PLATELET VOLUME (BEAKER) (test code = 754) 11.9 fL 9.4-12 .3 NUCLEATED RED BLOOD CELLS (BEAKER) (test code = 413) 0 /100 WBC 0 -0 NEUTROPHILS RELATIVE PERCENT (BEAKER) (test code = 429) 85 % LYMPHOCYTES RELATIVE PERCENT (BEAKER) (test code = 430) 6 % MONOCYTES RELATIVE PERCENT (BEAKER) (test code = 431) 6 % EOSINOPHILS RELATIVE PERCENT (BEAKER) (test code = 432) 2 % BASOPHILS RELATIVE PERCENT (BEAKER) (test code = 437) 0 % NEUTROPHILS ABSOLUTE COUNT (BEAKER) (test code = 670) 7.30 K/ L 1.56-6.13 H LYMPHOCYTES ABSOLUTE COUNT (BEAKER) (test code = 414) 0.55 K/ L 1.18-3.74 L MONOCYTES ABSOLUTE COUNT (BEAKER) (test code = 415) 0.55 K/ L 0. 24-0.36 H EOSINOPHILS ABSOLUTE COUNT (BEAKER) (test code = 416) 0.14 K/ L 0.04-0.36 BASOPHILS ABSOLUTE COUNT (BEAKER) (test code = 417) 0.01 K/ L 0. 01-0.08 IMMATURE GRANULOCYTES-RELATIVE PERCENT (BEAKER) (test code = 2801) 0 % 0-1 BASIC METABOLIC [id number] 06:11:00* Test Item Value Reference Range Interpretation Comments SODIUM (BEAKER) (test code = 381) 139 meq/L 136-145 POTASSIUM (BEAKER) (test code = 379) 4.9 meq/L 3.5-5.1 CHLORIDE (BEAKER) (test code = 382) 101 meq/L 98-107 CO2 (BEAKER) (test code = 355) 24 meq/L 22-29 BLOOD UREA NITROGEN (BEAKER) (test code = 354) 70 mg/dL 7-21 H CREATININE (BEAKER) (test code = 358) 7.68 mg/dL 0.57-1.25 H GLUCOSE RANDOM (BEAKER) (test code = 652) 143 mg/dL 70-105 H CALCIUM (BEAKER) (test code = 697) 7.6 mg/dL 8.4-10.2 L EGFR (BEAKER) (test code = 1092) 6 mL/min/1.73 sq m ESTIMATED GFR IS NOT ACCURATE CREATININE CLEARANCE IN PREDICTING GLOMERULAR FILTRATION RATE. ESTIMATED GFR IS NOT APPLICABLE FOR DIALYSIS PATIENTS. Director Of Collections And Archives ID - CURT [id number] 06:10:00* Test Item Value Reference Range Interpretation Comments PHOSPHORUS (BEAKER) (test code = 604) 8.3 mg/dL 2.3-4.7 H Director Of Collections And Archives ID - CURT [id number] 06:10:00* Test Item Value Reference Range Interpretation Comments MAGNESIUM (BEAKER) (test code = 627) 2.0 mg/dL 1.6-2.6 Director Of Collections And Archives ID - CURT MPOCT-GLUCOSE [id number] 21:55:00* Test Item Value Reference Range Interpretation Comments POC-GLUCOSE METER (BEAKER) (test code = 1538) 172 mg/dL 70-110 H : TESTED AT [address], [address]: Director Of Collections And Archives/Residential Advisor ID = [id number] for DAYSI SEVILLA POCT-GLUCOSE [id number] 15:32:00* Test Item Value Reference Range Interpretation Comments POC-GLUCOSE METER (BEAKER) (test code = 1538) 200 mg/dL 70-110 H : TESTED AT [address], [address]: Director Of Collections And Archives/Residential Advisor ID = [id number] for Jasmeet Williamson POCT-GLUCOSE [id number] 11:47:00* Test Item Value Reference Range Interpretation Comments POC-GLUCOSE METER (BEAKER) (test code = 1538) 156 mg/dL 70-110 H : TESTED AT [address], [address]: Director Of Collections And Archives/Residential Advisor ID = [id number] for Williamson Jasmeet POCT-GLUCOSE [id number] 10:22:00* Test Item Value Reference Range Interpretation Comments POC-GLUCOSE METER (BEAKER) (test code = 1538) 141 mg/dL 70-110 H : TESTED AT [address], [address]: Director Of Collections And Archives/Residential Advisor ID = [id number] for ARABELLA SALMON POCT-GLUCOSE [id number] 07:51:00* Test Item Value Reference Range Interpretation Comments POC-GLUCOSE METER (BEAKER) (test code = 1538) 163 mg/dL 70-110 H : TESTED AT [address], [address]: Director Of Collections And Archives/Residential Advisor ID = [id number] for Jasmeet Williamson BASIC METABOLIC [id number] 04:51:00* Test Item Value Reference Range Interpretation Comments SODIUM (BEAKER) (test code = 381) 137 meq/L 136-145 POTASSIUM (BEAKER) (test code = 379) 5.0 meq/L 3.5-5.1 CHLORIDE (BEAKER) (test code = 382) 100 meq/L 98-107 CO2 (BEAKER) (test code = 355) 24 meq/L 22-29 BLOOD UREA NITROGEN (BEAKER) (test code = 354) 57 mg/dL 7-21 H CREATININE (BEAKER) (test code = 358) 6.73 mg/dL 0.57-1.25 H GLUCOSE RANDOM (BEAKER) (test code = 652) 223 mg/dL 70-105 H CALCIUM (BEAKER) (test code = 697) 7.7 mg/dL 8.4-10.2 L EGFR (BEAKER) (test code = 1092) 7 mL/min/1.73 sq m ESTIMATED GFR IS NOT ACCURATE CREATININE CLEARANCE IN PREDICTING GLOMERULAR FILTRATION RATE. ESTIMATED GFR IS NOT APPLICABLE FOR DIALYSIS PATIENTS. Director Of Collections And Archives ID - [id number] 04:47:00* Test Item Value Reference Range Interpretation Comments PHOSPHORUS (BEAKER) (test code = 604) 7.9 mg/dL 2.3-4.7 H Director Of Collections And Archives ID - [id number] 04:47:00* Test Item Value Reference Range Interpretation Comments MAGNESIUM (BEAKER) (test code = 627) 2.0 mg/dL 1.6-2.6 Director Of Collections And Archives ID - EDASICBC W/PLT COUNT & AUTO [id number] 04:16:00* Test Item Value Reference Range Interpretation Comments WHITE BLOOD CELL COUNT (BEAKER) (test code = 775) 14.9 K/ L 3.5- 10.5 H RED BLOOD CELL COUNT (BEAKER) (test code = 761) 2.36 M/ L 3.93-5 .22 L HEMOGLOBIN (BEAKER) (test code = 410) 6.5 GM/DL 11.2-15.7 L HEMATOCRIT (BEAKER) (test code = 411) 22.4 % 34.1-44.9 L MEAN CORPUSCULAR VOLUME (BEAKER) (test code = 753) 94.9 fL 79. 4-94.8 H Discordant MCV results compared to previous results; clinical correlation required. MEAN CORPUSCULAR HEMOGLOBIN (BEAKER) (test code = 751) 27.5 pg 25.6-32.2 MEAN CORPUSCULAR HEMOGLOBIN CONC (BEAKER) (test code = 752) 29.0 GM/DL 32.2-35.5 L RED CELL DISTRIBUTION WIDTH (BEAKER) (test code = 412) 15.9 % 11.7-14.4 H PLATELET COUNT (BEAKER) (test code = 756) 160 K/CU MM 150-450 MEAN PLATELET VOLUME (BEAKER) (test code = 754) 11.7 fL 9.4-12 .3 NUCLEATED RED BLOOD CELLS (BEAKER) (test code = 413) 0 /100 WBC 0 -0 NEUTROPHILS RELATIVE PERCENT (BEAKER) (test code = 429) 89 % LYMPHOCYTES RELATIVE PERCENT (BEAKER) (test code = 430) 6 % MONOCYTES RELATIVE PERCENT (BEAKER) (test code = 431) 5 % EOSINOPHILS RELATIVE PERCENT (BEAKER) (test code = 432) 0 % BASOPHILS RELATIVE PERCENT (BEAKER) (test code = 437) 0 % NEUTROPHILS ABSOLUTE COUNT (BEAKER) (test code = 670) 13.22 K/ L 1.56-6.13 H LYMPHOCYTES ABSOLUTE COUNT (BEAKER) (test code = 414) 0.85 K/ L 1.18-3.74 L MONOCYTES ABSOLUTE COUNT (BEAKER) (test code = 415) 0.76 K/ L 0. 24-0.36 H EOSINOPHILS ABSOLUTE COUNT (BEAKER) (test code = 416) 0.00 K/ L 0.04-0.36 L BASOPHILS ABSOLUTE COUNT (BEAKER) (test code = 417) 0.02 K/ L 0. 01-0.08 IMMATURE GRANULOCYTES-RELATIVE PERCENT (BEAKER) (test code = 2801) 0 % 0-1 POCT-GLUCOSE [id number] 19:16:00* Test Item Value Reference Range Interpretation Comments POC-GLUCOSE METER (BEAKER) (test code = 1538) 115 mg/dL 70-110 H : TESTED AT [facility] [address] [place] [address], [address]: Director Of Collections And Archives/Residential Advisor ID = [id number] for GRANT COMER, FLUORO, NON-SPECIFIC, UP TO 1 [id number] 17:15:00Reason for exam:->left hip ORIFFluoroscopic unit utilized for a procedure performed in the OR. No interpretation was requested. Refer to the operative report for findings. Refer to PACS for patient radiation dose information.FL fluoro non-specific up to 1 [id number] 17:15:00Interface, External Ris In - 02/26/2020 5:35 PM CDTFluoroscopic unit utilized for a procedure performed in the OR. No interpretation was requested. Refer to the operative report for findings. Refer to PACS for patient radiation dose information.[facility] HospitalPO[facility] [id number] 13:29:00* Test Item Value Reference Range Interpretation Comments POC-GLUCOSE METER (BEAKER) (test code = 1538) 95 mg/dL 70-110 : TESTED AT [facility] [address], [address]: Director Of Collections And Archives/Residential Advisor ID = [id number] for RALPH ALBA SARS-COV2/RT-PCR ([facility])2020-02-26 09:39:00* Test Item Value Reference Range Interpretation Comments SARS-COV2/RT-PCR (test code = 8014241) Negative N ot Detected, Negative, See external report for linked test SARS-COV-2 PERFORMING LAB (test code = 1608691) [facility] RORO Negative result for this test determines that SARS-CoV-2 RNA was not present in the specimen above the Limit of Detection (LOD). However, Negative results do n ot preclude SARS-CoV-2 infection and should not be used as the sole basis for tr eatment or patient management decisions. Negative results must be combined with clinical observations, patient history, and epidemiological information. A false negative result may occur if a specimen is improperly collected, transported or handled. A false negative result should be considered if patient's recent expo sures or clinical presentation indicate that COVID-19 (SARS-CoV-2) is likely and diagnostic tests for other causes of illness are negative. Re-testing should be considered in cases of suspected false negatives.The limit of detection for this assay is 800 copies/mL.This SARS CoV-2 test is a real-time RT-PCR test intended for the qualitative detection of nucleic acid from SARS-CoV-2 in a [facility] swab specimen collected from individuals suspected of COVID-19 by their [facility] provider.This test has not been Food and Drug Administration (FDA) clear ed or approved. This is a modified version of an approved Emergency Use Authori zation (EUA) and is in the process of review by the FDA. Once authorized by [facility] FDA, the issued EUA will be effective until the declaration that circumstances exist justifying the authorization of the emergency use of in vitro diagnostic tests for detection and/or diagnosis of COVID-19 is terminated under Section 564 (b)(2) of the Act or the EUA is revoked under Section 564(g) of the Act.Fact She et for Healthcare Providers:https://www.[employer]/sites/default/files/product/d ocuments/Bmed_Uquid_JL_Vkjhsohks_Mkwo_TJHY-FyA-3.pdfFact Sheet for Healthcare Pa bries:https://www.[employer]/sites/default/files/product/documents/Fact_Sheet_P fymknqt_Hbph_JWSR-HvC-4.pdfPerforming Laboratory:[facility] [address].[place], [place] [address]UZRY-UEXTSUZ [id number] 07:38:00* Test Item Value Reference Range Interpretation Comments POC-GLUCOSE METER (BEAKER) (test code = 1538) 114 mg/dL 70-110 H : TESTED AT [facility] [address], [address]: Director Of Collections And Archives/Residential Advisor ID = [id number] for HANSA BILLS BASIC METABOLIC [id number] 04:38:00* Test Item Value Reference Range Interpretation Comments SODIUM (BEAKER) (test code = 381) 139 meq/L 136-145 POTASSIUM (BEAKER) (test code = 379) 4.1 meq/L 3.5-5.1 CHLORIDE (BEAKER) (test code = 382) 99 meq/L 98-107 CO2 (BEAKER) (test code = 355) 29 meq/L 22-29 BLOOD UREA NITROGEN (BEAKER) (test code = 354) 49 mg/dL 7-21 H CREATININE (BEAKER) (test code = 358) 5.42 mg/dL 0.57-1.25 H GLUCOSE RANDOM (BEAKER) (test code = 652) 118 mg/dL 70-105 H CALCIUM (BEAKER) (test code = 697) 8.0 mg/dL 8.4-10.2 L EGFR (BEAKER) (test code = 1092) 9 mL/min/1.73 sq m ESTIMATED GFR IS NOT ACCURATE CREATININE CLEARANCE IN PREDICTING GLOMERULAR FILTRATION RATE. ESTIMATED GFR IS NOT APPLICABLE FOR DIALYSIS PATIENTS. Director Of Collections And Archives ID - [id number] 04:21:00* Test Item Value Reference Range Interpretation Comments PHOSPHORUS (BEAKER) (test code = 604) 3.7 mg/dL 2.3-4.7 Director Of Collections And Archives ID - [id number] 04:21:00* Test Item Value Reference Range Interpretation Comments MAGNESIUM (BEAKER) (test code = 627) 2.0 mg/dL 1.6-2.6 Director Of Collections And Archives ID - EDASICBC W/PLT COUNT & AUTO [id number] 03:51:00* Test Item Value Reference Range Interpretation Comments WHITE BLOOD CELL COUNT (BEAKER) (test code = 775) 7.0 K/ L 3.5- 10.5 RED BLOOD CELL COUNT (BEAKER) (test code = 761) 3.37 M/ L 3.93-5 .22 L HEMOGLOBIN (BEAKER) (test code = 410) 9.3 GM/DL 11.2-15.7 L HEMATOCRIT (BEAKER) (test code = 411) 30.5 % 34.1-44.9 L MEAN CORPUSCULAR VOLUME (BEAKER) (test code = 753) 90.5 fL 79. 4-94.8 MEAN CORPUSCULAR HEMOGLOBIN (BEAKER) (test code = 751) 27.6 pg 25.6-32.2 MEAN CORPUSCULAR HEMOGLOBIN CONC (BEAKER) (test code = 752) 30.5 GM/DL 32.2-35.5 L RED CELL DISTRIBUTION WIDTH (BEAKER) (test code = 412) 15.9 % 11.7-14.4 H PLATELET COUNT (BEAKER) (test code = 756) 193 K/CU MM 150-450 MEAN PLATELET VOLUME (BEAKER) (test code = 754) 11.7 fL 9.4-12 .3 NUCLEATED RED BLOOD CELLS (BEAKER) (test code = 413) 0 /100 WBC 0 -0 NEUTROPHILS RELATIVE PERCENT (BEAKER) (test code = 429) 76 % LYMPHOCYTES RELATIVE PERCENT (BEAKER) (test code = 430) 16 % MONOCYTES RELATIVE PERCENT (BEAKER) (test code = 431) 7 % EOSINOPHILS RELATIVE PERCENT (BEAKER) (test code = 432) 1 % BASOPHILS RELATIVE PERCENT (BEAKER) (test code = 437) 0 % NEUTROPHILS ABSOLUTE COUNT (BEAKER) (test code = 670) 5.32 K/ L 1.56-6.13 LYMPHOCYTES ABSOLUTE COUNT (BEAKER) (test code = 414) 1.14 K/ L 1.18-3.74 L MONOCYTES ABSOLUTE COUNT (BEAKER) (test code = 415) 0.46 K/ L 0. 24-0.36 H EOSINOPHILS ABSOLUTE COUNT (BEAKER) (test code = 416) 0.05 K/ L 0.04-0.36 BASOPHILS ABSOLUTE COUNT (BEAKER) (test code = 417) 0.01 K/ L 0. 01-0.08 IMMATURE GRANULOCYTES-RELATIVE PERCENT (BEAKER) (test code = 2801) 0 % 0-1 HEMODIALYSIS [id number] 02:14:00Kathia Blankenship RN 02/26/2020 2:14 AMLab Results Component Value Date HEPBSAG Nonreactive 02/25/2020 ]Lab Results Component Value Date GLUCOSE 160 (H) 02/25/2020 CALCIUM 8.1 (L) 02/25/2020 NA 132 (L) 02/25/2020 K 6.7 (HH) 02/25/2020 CO2 22 02/25/2020 CL 99 02/25/2020 BUN 110 (H) 02/25/2020 CREATININE 9.33 (H) 02/25/2020 Lab Results Component Value Date WBC 6.8 02/25/2020 HGB 10.9 (L) 02/25/2020 HCT 34.7 (L) 02/25/2020 MCV 89.6 02/25/2020 PLT 179 02/25/2020 HD treatment completed for 3.5 hours via left AVF. Net UF of 2 L.Patient bradycardic initially but went up to 70's few minutes after HD initiation. Well tolerated the treatment. Endorsed to nurse accordingly. [facility] [id number] 01:46:00 * Test Item Value Reference Range Interpretation Comments POC-GLUCOSE METER (BEAKER) (test code = 1538) 112 mg/dL 70-110 H : TESTED AT [facility] [address], [address]: Director Of Collections And Archives/Residential Advisor ID = [id number] for Kathia Blankenship BASIC METABOLIC [id number] 21:52:00* Test Item Value Reference Range Interpretation Comments SODIUM (BEAKER) (test code = 381) 132 meq/L 136-145 L POTASSIUM (BEAKER) (test code = 379) 6.7 meq/L 3.5-5.1 HH Specimen moderately hemolyzed CHLORIDE (BEAKER) (test code = 382) 99 meq/L 98-107 CO2 (BEAKER) (test code = 355) 22 meq/L 22-29 BLOOD UREA NITROGEN (BEAKER) (test code = 354) 110 mg/dL 7-21 H CREATININE (BEAKER) (test code = 358) 9.33 mg/dL 0.57-1.25 H Specimen moderately hemolyzed GLUCOSE RANDOM (BEAKER) (test code = 652) 160 mg/dL 70-105 H CALCIUM (BEAKER) (test code = 697) 8.1 mg/dL 8.4-10.2 L EGFR (BEAKER) (test code = 1092) 5 mL/min/1.73 sq m ESTIMATED GFR IS NOT ACCURATE CREATININE CLEARANCE IN PREDICTING GLOMERULAR FILTRATION RATE. ESTIMATED GFR IS NOT APPLICABLE FOR DIALYSIS PATIENTS. Director Of Collections And Archives ID - ASHEPATITIS B SURFACE [id number] 21:50:00* Test Item Value Reference Range Interpretation Comments HEPATITIS B SURFACE ANTIGEN (2) (BEAKER) (test code = 2585) Nonreactive Nonreactive Specimen is considered negative for HBsAg.BASIC METABOLIC [id number] 17:49:00* Test Item Value Reference Range Interpretation Comments SODIUM (BEAKER) (test code = 381) 134 meq/L 135-148 L POTASSIUM (BEAKER) (test code = 379) 7.2 meq/L 3.6-5.5 HH CHLORIDE (BEAKER) (test code = 382) 96 meq/L 98-106 L CO2 (BEAKER) (test code = 355) 24 meq/L 24-32 BLOOD UREA NITROGEN (BEAKER) (test code = 354) 107 mg/dL 10-26 H CREATININE (BEAKER) (test code = 358) 9.76 mg/dL 0.50-1.20 H GLUCOSE RANDOM (BEAKER) (test code = 652) 116 mg/dL 70-110 H CALCIUM (BEAKER) (test code = 697) 8.7 mg/dL 8.5-10.5 EGFR (BEAKER) (test code = 1092) 5 mL/min/1.73 sq m ESTIMATED GFR IS NOT ACCURATE CREATININE CLEARANCE IN PREDICTING GLOMERULAR FILTRATION RATE. ESTIMATED GFR IS NOT APPLICABLE FOR DIALYSIS PATIENTS. PT/[id number] 17:42:00* Test Item Value Reference Range Interpretation Comments Protime (test code = 5902-2) 11.6 9.8- 12.0 sec INR (test code = 6301-6) 1.08 <=5.90 GABBY (test code = GABBY) RECOMMENDED COUMADIN/WARFARI N INR THERAPY RANGESSTANDARD DOSE: 2.0 - 3.0 Includes: PROPHYLAXIS for venous thrombosis, systemic embolization; TREATMENT for venous thrombosis and/or pulmonary embolus.HIGH RISK: Target INR is 2.5-3.5 for patients with mechanical heart valves. Lab Interpretation (test code = 23389-2) Normal [facility] HospitalPROTHROMBIN TIME/[id number] 17:42:00* Test Item Value Reference Range Interpretation Comments PROTIME (BEAKER) (test code = 759) 11.6 sec 9.8-12.0 INR (BEAKER) (test code = 370) 1.08 <=5.90 RECOMMENDED COUMADIN/WARFARIN INR THERAPY RANGESSTANDARD DOSE: 2.0 - 3.0 Inclu kaelyn: PROPHYLAXIS for venous thrombosis, systemic embolization; TREATMENT for hermes ous thrombosis and/or pulmonary embolus.HIGH RISK: Target INR is 2.5-3.5 for pat ients with mechanical heart valves.CBC W/PLT COUNT & AUTO [id number] 17:42:00* Test Item Value Reference Range Interpretation Comments WHITE BLOOD CELL COUNT (BEAKER) (test code = 775) 6.8 K/ L 4.0- 10.0 RED BLOOD CELL COUNT (BEAKER) (test code = 761) 3.87 M/ L 4.00-5 .00 L HEMOGLOBIN (BEAKER) (test code = 410) 10.9 GM/DL 12.0-15.0 L HEMATOCRIT (BEAKER) (test code = 411) 34.7 % 36.0-45.0 L MEAN CORPUSCULAR VOLUME (BEAKER) (test code = 753) 89.6 fL 82. 0-99.0 MEAN CORPUSCULAR HEMOGLOBIN (BEAKER) (test code = 751) 28.1 pg 27.0-33.0 MEAN CORPUSCULAR HEMOGLOBIN CONC (BEAKER) (test code = 752) 31.4 GM/DL 32.0-36.0 L RED CELL DISTRIBUTION WIDTH (BEAKER) (test code = 412) 17.2 % 10.3-14.2 H PLATELET COUNT (BEAKER) (test code = 756) 179 K/CU MM 150-430 MEAN PLATELET VOLUME (BEAKER) (test code = 754) 9.1 fL 6.5-10 .5 NEUTROPHILS RELATIVE PERCENT (BEAKER) (test code = 429) 71 % LYMPHOCYTES RELATIVE PERCENT (BEAKER) (test code = 430) 20 % MONOCYTES RELATIVE PERCENT (BEAKER) (test code = 431) 7 % EOSINOPHILS RELATIVE PERCENT (BEAKER) (test code = 432) 2 % BASOPHILS RELATIVE PERCENT (BEAKER) (test code = 437) 0 % NEUTROPHILS ABSOLUTE COUNT (BEAKER) (test code = 670) 4.80 K/ L 1.80-8.00 LYMPHOCYTES ABSOLUTE COUNT (BEAKER) (test code = 414) 1.32 K/ L 1.48-4.50 L MONOCYTES ABSOLUTE COUNT (BEAKER) (test code = 415) 0.47 K/ L 0. 00-1.30 EOSINOPHILS ABSOLUTE COUNT (BEAKER) (test code = 416) 0.16 K/ L 0.00-0.50 BASOPHILS ABSOLUTE COUNT (BEAKER) (test code = 417) 0.03 K/ L 0. 00-0.20 CRITICAL [id number] 16:23:26DiSaad franz MD 02/25/2020 6:55 PMCritical CarePerformed by: Saad Lopez MDAuthorized by: Saad Lopez MD Total critical care time: 40 minutesCritical care time was exclusive of separately billable procedures and treating other patients.Critical care was necessary to treat or prevent imminent or life-threatening deterioration of the following conditions: metabolic crisis.Critical care was time spent personally by me on the following activities: blood draw for specimens, discussions with consultants, evaluation of patient's response to treatment, examination of patient, obtaining history from patient or surrogate, ordering and performing treatments and interventions, ordering and review of laboratory studies, ordering and review of radiographic studies, pulse oximetry, development of treatment plan with patient or surrogate and re-evaluation of patient's condition.Comments: I provided medically necessary Critical Care on an emergent basis in order to prevent any sudden, clinically significant deterioration in her condition. It is my opinion that her clinical presentation, without appropriate emergent intervention has the potential to acutely impair one or mor e of her vital organ systems with a high probability of imminent deterioration i n her condition. The time involved in the performance of separately reportable p rocedures or teaching time was not counted towards the critical care time that i s documented here. [facility] HospitalECG/EKG Interpretation 2020-02-25 16:23:26Saad Lopez MD 02/25/2020 6:55 PMECG/EKG InterpretationDate/Time: 02/25/2020 4:17 PMPerformed by: Saad Lopez MDAuthorized by: Saad Lopez MD The ECG was interpreted by ED physician. The ECG is interpreted as sinus bradycardia. Heart rate is 40 BPM.ECG reviewed and does not meet STEMI criteria. Patient tolerance: Patient tolerated the procedure well with no immediate complicationsComments: NO ACUTE ISCHEMIC CHANGES; SINUS BRADYCARDIA [facility] HospitalPIV [id number] 16:23:26Saad Lopez MD 02/25/2020 6:55 PMPIV InsertionDate/Time: 02/25/2020 6:45 PMPerformed by: Saad Lopez MDAuthorized by: Saad Lopez MD Preparation: Patient was prepped and draped in the usual sterile fashion.Indication: fluid administration, IV medication, poor peripheral access, vascular access, difficult access and unstable patient.Location: left external jugular. Needle gauge: 20Seldinger technique: Seldinger technique usedNumber of attempts: 1Post-procedure: line suturedPost-procedure CMS: normalPatient tolerance: Patient tolerated the procedure well with no immediate complications [facility] HospitalRAD, PELVIS, 1 OR 2 [id number] 16:19:00Reason for exam:->KNEE PAINleft knee/leg pain s/p slid down to the floor while being transferred at [facility] onset 30 min captain assistant. denies locReason for exam:->LEG PAINShould this be performed at the bedside?->NoFINAL REPORT Clinical history: Knee pain/leg pain TECHNIQUE: Single AP view the pelvis as well as AP and lateral views of the left femur were obtained. COMPARISON: None FINDINGS/IMPRESSION: There is a displaced, angulated fracture involving the proximal left femoral shaft with lateral displacement of the proximal fracture fragment. The left femoral head maintains normal relationship with the acetabulum. No other acute fracture or dislocation is appreciated. 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 Prominent vascular calcifications are n oted. Signed: Vijay Jacobsen MDReport Verified Date/Time: 02/25/2020 16:19:51 Re ading Location: [address] Consult Reading Room , FEMUR, MIN. 2 VIEWS, LEFT 2020-02-25 16:19:00Reason for exam:->KNEE PAINleft knee/leg pain s/p slid down to the floor while being transferred at [facility] onset 30 min captain assistant. denies locReason for exam:->LEG PAINShould this be performed at the bedside?->NoFINAL REPORT Clinical history: Knee pain/leg pain TECHNIQUE: Single AP view the pelvis as well as AP and lateral views of the left femur were obtained. COMPARISON: None FINDINGS/IMPRESSION: There is a displaced, angulated fracture involving the proximal left femoral shaft with lateral displacement of the proximal fracture fragment. The left femoral head maintains normal relationship with the acetabulum. No other acute fracture or dislocation is appreciated. There are postsurgical changes from total left knee arthroplasty which is s uboptimally evaluated but hardware appears grossly intact and in anatomic alignm ent. 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 Prominent vascular calcifications are n oted. Signed: Vijay Jacobsen MDReport Verified Date/Time: 02/25/2020 16:19:51 Re ading Location: [facility] C013W Consult Reading Room T SINGLE (PORTABLE)2019-11-14 22:04:00 [facility] [address] [place] [address] Patient Name: ANGELA JEFFERS MR #: [id number] : 1945 Age/Sex: 74/F Req #: [id number] Adm Physician: Ordered by: KODY ALEMAN DO Report #: [id number] Location: ER Room/Bed: Procedure: [id number] DX/CHEST SINGL E (PORTABLE) Exam Date: 11/14/19 Exam Time: 2149 REPORT STATUS: Signed EXAMINATION: CHEST SINGLE (PORTABLE) INDICATION: Elevated blood pressure COMPARISON: None FINDINGS: AP view TUBES and LINES: None. LUNGS: Low lung volumes. Prominent pulmonary markings with questionable perihilar airspace disease. PLEURA: Questionable small left pleural effus ion. HEART AND MEDIASTINUM: The cardiac silhouette is enlarged. The pulmon xena vasculature is prominent. BONES AND SOFT TISSUES: No acute osseous l esion. Soft tissues are unremarkable. UPPER ABDOMEN: No free air under t he diaphragm. IMPRESSION: Cardiomegaly with pulmonary venous congest ion and possible early pulmonary edema. Questionable small left pleural effusi on. Signed by: Debra Valerio MD on 11/14/2019 10:06 PM Dictated By: DEBRA VALERIO MD 2205 Transcribed By: ARIEL on 11/14/192205 COPY TO: KODY ALEMAN DO BNP [id number] 20:50:00* Test Item Value Reference Range Interpretation Comments B-Type Natriuretic Peptide (test code = 27857-1) 378.6 0-100 [facility] [id number] 16:40:00* Test Item Value Reference Range Interpretation Comments Case Report (test code = 104) Surgical Pathology Repor t Case: [id number] Authorizing Provider: Goyo Haji, Collected: 10/24/2019 11:36 AM Ordering Location: [facility] PERIOPERATIVE Received: 10/24/2019 01:44 PM SERVICES Pathologist: Yumiko Brito MD Specimen: Soft Tissue, Other, Transmetatarsal right foot DIAGNOSIS (test code = 3220) n8lslNLnSZVvs3qcACQonBOhHaQfOsVnFrUoNeyvtEEmYZwmcwErYYrpp1BvO1XiBlNdXMnhsaRjPBNy FgkjultaZCAjAYE5fuDoXEFdJCqoRSMcLCduYy2htPWjxXfySlFbRFPlc6qqeuVLmurvkYl7g2axAXTx ShY1uDEcFGcgA8krrnBxeQArZZXgVOv6zJ84ZWNixU 1wpRImLWxztvIpTvL6UBgrQVFhMaC9DQPchFQsBZKxE2rzLMBuJGxbKHUqYJddbWXaQAQ4sLwwp2T7kK BtkWWogDrhRuNlYoHqCIDZx6TiWKi5rOltT9VfECZkZyX9kJIdUAVmIYjjYDKlCNBdcwT1hQ07IOdawk W9iNMoa0Elo44uc079bK2cuPAcFWF2HRKiJQEmhDVc DWNuHKR4WSZamXLpB9w5AeLmsSNbH5J9GlAdgUWhP5R0KcNxcRCaE9F7HuEpnXAtFJIauZWmAv2qzNQw xTTtgg5aqu11TEM8i3TipJgyXOR4IXV9OqYhJl7ifHSmMJKtWX8vKqLgfBHuBPHpai66wUfhYWzvgdSb vS2sZuBcUAVgqUQmZOZvRN0eyJSuCXBrcP4wehnpPF LwVtTungejJYRkyNkjrsHoRy7pfXqqJHE9CNhzU0gjuG7gDzH1ERhsQ3jgeV5sFSb0JPojfYZ6HSQbnK 9kLN2fdqozm5agTjBdPZ2qqsdqx3gyKsPnQP1ghxc8s6erBpLtZN3yytsqp3csQlIgAHmmZLRafuyxVB Thu7AqurzsFUVhc6AhA6LtyBqxA08piJkcD18jCFTk hJcuwH3geDocfS4mFqKfYfDyVAmyqYqjpMTtoszlCTsoyeFoDYiwedxlPWXhUYquE4faBmTiOKOvwHpj INjnc5WxDREeHPSqNwRtQapPPGLkJu1FXVxyEFANNnRDCMHGVOVVS8WEIWBNMHZZJWTRD759UVTcqtTh ZDOuUPGFRCSCOQXyFT3ZNPCYPisRVxDZCGVSZRMDIU 8LDKPzhvFiAPRkIQDLNE8XLoVFREBIKBMRP6JYKyHOOLEUTLDCIDKMNPaMVcxyHVAQJKIaN8RSDE0SMW PGLSGMNuHuT6BCSTLOXE8TOhPrSFUhsvBvBQXkACAVW7OYNZBTZ1VEPBBJYMORC0KKD69aWKTBH8gYYY tOSMjjIpDLZj8OSEUlSV4SXICTBZSSBPeHXlxDOC6G OXzIFaxxENX2r3sqsNAiQWHcrPTaPPUhRYdwpcEkCDAvVrdozicuTLWiBLY1psJeOMDtEJhhAKHuFEtl Rn4lkCHziSjkEpToCYHtq6gnyuCCodrksCk2o6dpGUNuEpS1lGCaXMqwF1nopnOuqRJpKHHxFIo1uB73 MOKuvZ5zcNTjJLasrvYrSwB8MMwpBFPnIkY1XEWwuU FmUNOtJ6hhECXyLStnVRSgZEhuwZXfLLX7hDuuz0Z2qSQnnXVndIzmHrNxVvGqFnQPm5PxIXd8dUhfP7 VgMYZlDnI0tCNoABKmPHbvUQGhFVVdrcN8iF04FSkjxnT3aTAkc6Epp62kr833rG4nkFQwGGV3THAtPN DyrVDnKZSjUMB4CBRcuVTzJ8ubINQiBI9erncjYBpw QKqfMJZcoNY7XDBsiXRqK4QoMHLpACtkIVYbmsu4GzPuGk4tnIPtwTojNXsjc0ffu6vbiOMkZqa5VXJl VaFxGswgGDmuu2Itd8rhAFSqot7kTQC2sRRisJxyr2I7mFLzXRWvpVUrAXMoLQ6urGSaEHBshK4fqbxw MXKeCzLflorjZPEkoXjhtdYzUv3xcYriKAR8TTgmW8 kajX0kCsS0BPgaB9qirL2sDUs8KLqzKBCwqIT6wcY2NNXhkXRtR1CqvN7sPBVuRR9cyaf0q2uzJHH5TV diXFVlHkO9svY4LSUnaKLtVRQtsQxvSXejk028RKW7BvCqPODjo5JqI1ErzSmgE48axGfcH75zGBRtvI azqK9tvAtiiT4pHkSxPkZxJXqjhCwoCS0xSIXsZ9ev tZVsBJVkSMWnP4ntWaYyhX9hnVgqIYwodbQrKXViRcq3WVMckJHgTWXvHre1KGPrWWTgR15yujlwZDM1 sI5yc9xke7HwIApxUAQ4DXMns18zNJihscV6ILucXl0lDwAyGRY0LYjbGWE4cR== COMMENT (test code = 3359) a5oczUEdIKHkqMTuKuOrGEViGPDeq6akRGEmkRZhGeAjLaUdKoHhVhlxkYQiNSZdYeQam5fpb379vCEc d8pdWJWgUoP4dOLpRSGywTDiK696n7gfb5iqbpQgeMQ1ZSBhYCW3MHlcarJfldJ9TSbfnJEiIhY4ITpl kmTjMVgerqPvmyOvGew3QOFdB946IOS6aAijs3ljTS Z2VMUeIBEzFoBhDw8tfXZsO886XYUkWHVRNTJycEz1ZEJigtElauEgkLQCr544J487y4rzJWAzkaBcaB qQbdopj3hxY024PLQnsKZortCdSbNsFOLbyONozBT1SSHiBV8buhuxEvIbOH2fvzxuNkUeQL6pxgy5Wy TfOP0hknaaExZiHEhyDSJvhkdbLMWdu6VhngkqOM9j J2Hxm6V0pO8tzCJbNDBuxLRdGsDfZNUtaq3deIQmYNxlp2KcVNR5ogP6dAVnuUWmJQEsBF26Wyqhz4Jz PqtnVMN8VTUwzzUda9Vxd2bcFqPcxfAmX1lwR2ThVJIkTKOvBWFbUbFwkiGii5Plp4MjeSGdzMi0k9ab QQFuPJEeiAwaj3muCJD6PLBvH1O9dXHql5fmFEqeMQ IlmFB9hrdiAGbcHRLkkeM5afzbPXmlITMteAA7krmwTOyxKYWwDuE4ttfbXJmcKVAgVPX4VLbeb446TA Z5WUgjHevwPSmxLTIfryEfnfVnbXxzSDOhYEQoYObmWHKgLKnrXWQeBUMtJuJarWrjmHrfyP3bGfShDp BpHJjnNB0kEPXuS9adoYHgNWClSVDyT8yqNnRwkM8a hGkkJJcqxkWmBSA9TXB6miL4dOOpOrVuI84qpsCdATKbYIF9kuJhg3MfnLsgNYCiVCCowDBvRCB9xYKl Nq9kCXDqVHLiJ9Hay99wpSNxS0xnysNmXJ4dc8TsKpDqWDIlyt0zkljftSHwzZRjhdFdmPJ6KQFqVVed x4O1WUUvBU9fCMIcTogjdSUcwtVaJCF8rHUge0T3ZO 3zxCAfaQQnagDrtmGfo5LrbiTrcpS2bKUcsR2ud4mgdMCbo1VnhZs6mOSeYAOxtaNdgsUbHFL4fV2lJE 8uqkflpoHxANJvhC4lIWobhsxkUH7iYSUpPWL3bMIbXVBfIQ0vAFWoYNAdLSEzCN1xVNWrlTlzDZPlb9 EpSdxoJKJwmcZrhgVxCZN6wN1rAP7olvddfvDpBTCq eK4tM5BmH6GkINcmkA4upMXbiYFkl5JwHHqfwZgcoxJwxtTlBBKltL1xjzCeEF7lZGCmgr0= CPT Code(s) (test code = 3357) l7hfvPReGEUnaDYbWlQtGEQqFUByj7dvTIZovWSpKsJiOgXxVtSeUnrihZObLDGuYfUig0aqk864wMFf c4fhVXZtDpA4dSKoRMTnnVHfC392XXZzCSbwo0spl4FeUMBfiSMtg6V5UIYBjzijvBj2eEgqI29if6L1 OxngS7aiXFIlJFExV1HjRC3yQFDjWpe1MQY5NMC5XB WvYKIaE0TnWO4oHRFieIIhKNn3w8rjkAakVHXmBEL8k1kfZCmsuoJqNB0nhp6aqTi6e9crvdYzVHDbIN DtiHYWXSXyA2MjpEflHn5exVl3nDggAfuePAR4Pdt2NJ0hxt03rdg7jRnxLIRgmrioMcU1WYhjJXKypi jdTPp7VJgdNSLicEviRYtiLAQbbjyyYRdnRAZtzMao BUwdBOHqErnyCYwoKXNlXII5WTtsh198QSU9DFzue4vim7xiuIZpDxd0RFUeXoQcMxwaLZdxn1Vmw5ox QQRyap1sXDQ1hQHnzIuob2H6hYFiQVSodUUjdgAsKKOmFgW2ZBjyDX6jah86FBCrKZV3pz6raVIodBby gmTerHMzKAytW2NaRXSjy837AZEdA0GlSFMdu4Y9mz PjZbNcDDKfqMF7xaY9TWRjVUr7eMColbO6iqQfzKYhB3diqA54ZmPauHFoC0NjkV07LjEkrDXfB6PuzA 94PeUdjXMeB1FoxX51PsLvoVVlATBgoTDyAi6jxFQtbCQkt2HyiTBvFXutT60xr957VQZxeyMrK7vqwH ZmuvtpxRHqmxtcQWehpfB2DVLtKIXuVQcnEONoXRVg FjTxaSTyEfJxLcZtrQgqxYrjFBqiBgLeAXQyXRygE5ogSwFxJkWsTWU9KDVuRRrwWNiqMYCorJUvmR== CLINICAL HISTORY (test code = 3356) y4sqxDXnAXIgfDYyIpWnHYRhRQEjr2aoBHZzhTZxIeCaZzTbTfZkWnocgMKmLZZwDcVah7kvt490hGEy y5ilNRZuRkQ2rVWaKRZsrDDtP344e7two6bmctUneCG8QWYlLPG8EPgbecMzqmP0POtsuMUcZqN9CTop erIlPVxtndJfkfNbYdd6APNvY012EAV4rUyyh8umHU T7GFYjGNNbFeFzOu3rlLVtA775PWWfFDWLWPUsyFg5IKKgddGffkNaaBDCd691M333z5htNLEocjMitJ yRynqij5xhQ073UFDkkCCszdFvVbMsLBOhkCVadGO0QMDrHE1dseglQxAaYM2sfhygFiPaUC2xscl0Vh RwTA9czwmmTiWdZKvgGWHcefeyZWPuj5CxgzbpAZ4b X0Omg7E6aV7ikGGbYIRyyOViMzGwHNQdjb8bqSFyBTzuo5ApTQR6gbJ4zIUkmSFwCARhFP23Oqbet0Lg FqjzIGT2VMJvnoAow9Kjt0zwVdTsxoQzJ2xtI4VjHWReBMFeVXZyJnGqseTqg3Rvm9KtcBZybHh2a5ku JVAsKDGkkGlga0mkTAO4XRHgR0X4uVCpm2wlRRfgCN HzyGK5lifoIKycRQIzadI8mvahAYszSVDljCJ5itfqLPgeYZRgFfH3ymduGByuOUVhKET6IVmfe215MC Y5WZlqChowUDzhTLHulaEycvRxjPvdKBOwLGIkYVuhMVFpMTdyHBRlJKNzEyEdeSkeyWkvuF3lMrTePp EiPJbuWU4vCYWrE6canVJeZLEcTYZlV3cwDvLduB8l bDffEAtbffPlMZAzA6o8FJRxz4VzP2RuH2ElstXbVXMjjGryR8YzM5Alg9Fhp4PgjqN6rAJiLMnzwF8n VNRgzua4nMBsQPZxV423loVpuzluCUJ5 SPECIMEN SOURCE (test code = 3377) t6nmiPXzWFEqdXBrEvKoLMCuUDYaf9rrOZSlqEEqVxQcIsGaAbGyRjeeyTZqWPHyRbQgp6rcl840ySEb y8ezMISpFhV4lQWkVUZoyMSfJ307t1ank0kfqaZyaTX4KJFbTGO8SBhsxmGuiwI5VLfoyKDxVhQ9QJoz bgXgEBdsyvPfxqHvMao1FYIpG180PKX9vVrqe1vgIJ J7GCIuFKGgEmFnEm7okXNdS510VALxEABVMYExgDa7AQUariPnxmPimZNPs796O691n3kwZLLnpcKcnO rTrgdgg2dwX897CMRebAYutmUzWdYdZEGodJUijMH4YGKsGG8pjsvcYmHlXX6trvzrBbNhMH5bhjs4Qu EgJN1lyrlxGgZdTHjoQBJlhlnlJRIga9ZoohinQR6y O9Wtb1D5qL3ekNTaUWXabFPaTnRyJMPmmz9nwXYgQAlxj5XbYFP4rzR2hWYkbEIzKZCbIV85Jfqow3As NtxvQOF6XPIepaWvy0Vvf7ylMoUoiaWwZ7lqO3MzOONfOFGrEUBfLbWwqeWfq8Ojz9XsjWNozSw4t4if JTNlPKLmiQpyu9wmIZP4ZWQyO5O2tIWye5cnLVajKB QdpXF0iyzbPWqoGANfhmW9zxkgIDtiHAXyqHA3heoxOGljGGRaEhQ1glflNSevVYJbHDJ9BGbwf778CQ V0JQitObwnWWjnCDFyrhNaewFlxBnkVTKmYHCjRWpvCAJoTBoiDNJtHWBpScJkhIiepGvmnX4gQqZfMx XlHImeID7jMZVrR9hruBGoCWNzPHRvD5plYyTmlE5o aEnlSVjnoeKjSOAoRX0guSN6CXPqtfZuxLYbgShkaMDdr491LLLnoe2= GROSS DESCRIPTION (test code = 3366) g5jlzZHeNFRiuDLkBbGoQRWgOYOjk6kcRHSurPZlUiYvLjQkBgHdVhbdbTVnJEKgQzBcd1kwh307qAAh g8yyTYSvHbZ4bAMcILDfrIZuH716IABmCXfsd3isi9YuZLLjkROqp8Y8VLJPbjomwPq3uRtkH67ks0C6 VjgdC7ohPDVrGRcoBPGlTDnylFVmIBU5FADmBCK3DR nydyJbjhU4HNwgnFCbAvU4OEx8m2tejVarKTTkMVF5c8crJEltiuIiGJ1yal1yhSr7s4ofmcGjHBUyJQ ZadEXAQCNbC7MczHyvAy2iuWd8jDdhUdulPRL8Vpv1RZ6rpd46msq3kTjaSLFjvaexNmT6GTktZQRoev tmANn6OCqzINHyyYwiLFgrLOTtbrfhNBexDCHjfUvk MNguAQYsQubcSUaxYVTeGLD9PRpxp493YDA3KNquj6mzq8tlaIUqXxo6OCSnFbYlNxbsRRzrq2Lqg3xq BHXfor7wIKI1dYMzwFjun1B3nPLzNZRqeRNurtCfXKAeFwZ1ZMawEC0pnd92JPUjBKV0us2hjXPqfNly isUlxQMuELvpX3XqCRLig516MWLbI8FcIDAtk3K0xw PpChEsGWGktLM7zxJ3VQLgXXz3gZRoubF0psXsuTAsF2qyxQ43OlAhfJUkS5GdqW58VfXjhBRrZ2BflV 78YiEloIXhS0InjD06MdFwgUWdVDHwxRGhWf4pkWFopKLae4EdvZBsUQzeY69fg611FBFpeqXhQ7otlS FpblxwbGFpblxmMFxmczIwXHFsXHBsYWluXGYwXGZz [file] NWYfiGInDyefHLExb63hZGNsB1fewZwnJRUroa7= MICROSCOPIC DESCRIPTION (test code = 3371) i7ekvDOgRZYbxTLoPmDaCDCaKNHxu6dgPXUbjZBgFaJkZmMrCbRpCvovlKNwANOmJvBel3pgp890sNNb h0yuMZSgXwZ1iBKiGDFfsMAmI449i4dxm2iodlMgrTN3KCJsNPW9HBjfnqKubrZ9JGaqfBUiUcG8BEne ggFbUVkxrmMepmEuLmn2CWApM327YAV5cFdhc4ajER I5IPMoEMWlTtYyZh0olGKfB708MPFdJWXDZZFvqQg3VKRqhxNmmmMoxDVVh072B058g5pnIMUnprAtaF bOztuqn8zaU536MGWnaDLkooSzIbZcDFUneYNrtZG6ICTyTF2ijvdsBhKwTU3dbcshByJuIB4kpex8Rg JvCU2lbvzgRyPeUWmcMWZpbdphYFJgd2JotxqeHH3n A7Pba7E3yU0nyLKfZJHfqPCoOsMwOHSgst2xvJMrUBwfw8OnCNR8qzY9jDAprEFoURQzOK22Udzrh7Rt OwfwSFM4VSDkuxJgt8Odt3gwSpKpzlDjG0trG3SvWJFuLQWzRCItXuQmbhOsp9Uha4TkaHQmkBg0u7er PECzFTIouGalv8zmRES9TBGsI6D3dTKyl2gkAIocEK ZyfPN9mgshTPsqXLKsjpK8vohuTBmlJGNskTZ1ngcuABdwBKPiKyS4ncwmFMzlHGMkEYW6UWrdv311XT J7MSdjHgknZImgLLUqjvErhdPoeNsiNBAtBHXyICxgJDPvTGwfMIRuIILbKvJrzSkqaCserT0rKtFxPc UrGLrjMH5gTYZsZ8wijKJvEZUlOGJsB4nbDgMrkM7myZjyZYvnlkBjMBYuvcKvpg2gTY5arRMvoC== [facility] [id number] 16:40:00Surgical Pathology Report Case: [id number] Authorizing Provider: Goyo Haji, Collected: 10/24/2019 11:36 AM Ordering Location: [facility] PERI[facility] Received: 10/24/2019 01:44 PM SERVICES Pathologist: Yumiko Brito MD Specimen: Soft Tissue, Other, Transmetatarsal right foot RIGHT FOOT, TRANSMETATARSAL AMPUTA TION: - STATUS POST PRIOR AMPUTATION - GANGRENE NECROSIS WITH UNDERLYING A CUTE OSTEOMYELITIS (SEE COMMENT) - SOFT TISSUE RESECTION MARGIN WITH NECROSIS AND ACUTE INFLAMMATION Signing Pathologist Direct Phone Line: [phone] Due to the frag mented nature of the specimen, the bone resection margins cannot be appropriatel y evaluated. However, no definitive acute osteomyelitis are seen on the possible submitted bone resection margins. Remodeling and reactive changes are seen at t he possible bone resection margins. Clinical/radiological correlation is recomme nded. [id number], [id number] foot gangrene, dehiscence of operative wound, initial en counterTransmetatarsal right footReceived fresh labeled with the patient's name, accession number and "soft tissue, other" is an unoriented transmetatarsal ampu tation (11.5 x 5 x 1.4 cm) to include four transected bones ranging 2-3.3 cm in length. Also received in the same container is a 3 x 1.2 cm transected bone segm ent and a separate shay-awan, dusky soft tissue measuring 2.7 x 2.5 x 1 cm. No to es are present. The transmetatarsal amputation is partially surfaced by an ovoid , awan, hyperkeratotic, green-black gangrenous skin which displays an 8 x 4 x 0. 2 cm blackened ulcer. The ulcer is 0.6 cm from the closest skin/soft tissue yobani in and 3 cm from the closest bone margin (presumed hallux). The underlying soft tissue is dusky, awan-yellow with focal areas of exudate. The underlying bone is shay-yellow and trabeculated and devoid of lesions. Transcript Clerk sections are submitted. Section code: A1, separate segment of bone margin, en face and repres entative of separate soft tissue fragment; A2, ulcerative closest skin/soft tiss ue margin (blue) and benefits representative of closest bone (presumed hallux), following decalcification; A3, two smaller bone segment margins on transmetatarsal amputa tion, en face, following decalcification;A4, larger two bone segment margins fro m transmetatarsal amputation, en face, following decalcification. CG/pl Perfor med.POCT-GLUCOSE [id number] 15:13:00* Test Item Value Reference Range Interpretation Comments POC-GLUCOSE METER (BEAKER) (test code = 1538) 135 mg/dL 70-110 H : TESTED AT [address], [address]: Director Of Collections And Archives/Residential Advisor ID = [id number] for GALLEGOS, TED POCT-GLUCOSE [id number] 12:07:00* Test Item Value Reference Range Interpretation Comments POC-GLUCOSE METER (BEAKER) (test code = 1538) 127 mg/dL 70-110 H : TESTED AT [address], [address]: Director Of Collections And Archives/Residential Advisor ID = [id number] for ROSAS ARNOLD POCT-GLUCOSE [id number] 16:48:00* Test Item Value Reference Range Interpretation Comments POC-GLUCOSE METER (BEAKER) (test code = 1538) 138 mg/dL 70-110 H : TESTED AT [address], [address]: Director Of Collections And Archives/Residential Advisor ID = [id number] for Eulalio, Areiona POCT-GLUCOSE [id number] 11:50:00* Test Item Value Reference Range Interpretation Comments POC-GLUCOSE METER (BEAKER) (test code = 1538) 146 mg/dL 70-110 H : TESTED AT [address], [address]: Director Of Collections And Archives/Residential Advisor ID = [id number] for Eulalio, Areiona POCT-GLUCOSE [id number] 17:15:00* Test Item Value Reference Range Interpretation Comments POC-GLUCOSE METER (BEAKER) (test code = 1538) 170 mg/dL 70-110 H : TESTED AT [address], [address]: Director Of Collections And Archives/Residential Advisor ID = [id number] for GALLEGOS, TED POCT-GLUCOSE [id number] 17:15:00* Test Item Value Reference Range Interpretation Comments POC-GLUCOSE METER (BEAKER) (test code = 1538) 198 mg/dL 70-110 H : TESTED AT [address], [address]: Director Of Collections And Archives/Residential Advisor ID = [id number] for GALLEGOS, TED POCT-GLUCOSE [id number] 21:48:00* Test Item Value Reference Range Interpretation Comments POC-GLUCOSE METER (BEAKER) (test code = 1538) 141 mg/dL 70-110 H : TESTED AT [address], [address]: Director Of Collections And Archives/Residential Advisor ID = [id number] for W[place] HALL POCT-GLUCOSE [id number] 17:35:00* Test Item Value Reference Range Interpretation Comments POC-GLUCOSE METER (BEAKER) (test code = 1538) 130 mg/dL 70-110 H : TESTED AT [address], [address]: Director Of Collections And Archives/Residential Advisor ID = [id number] for PENNY, KEYAIRA POCT-GLUCOSE [id number] 13:09:00* Test Item Value Reference Range Interpretation Comments POC-GLUCOSE METER (BEAKER) (test code = 1538) 119 mg/dL 70-110 H : TESTED AT [address], [address]: Director Of Collections And Archives/Residential Advisor ID = [id number] for PENNY, KEYAIRA POCT-GLUCOSE [id number] 11:24:00* Test Item Value Reference Range Interpretation Comments POC-GLUCOSE METER (BEAKER) (test code = 1538) 109 mg/dL 70-110 : TESTED AT [address], [address]: Director Of Collections And Archives/Residential Advisor ID = [id number] for YUE PINGIsabelle GE POCT-GLUCOSE [id number] 08:35:00* Test Item Value Reference Range Interpretation Comments POC-GLUCOSE METER (BEAKER) (test code = 1538) 120 mg/dL 70-110 H : TESTED AT [address], [address]: Director Of Collections And Archives/Residential Advisor ID = [id number] for YUE PING VIAL BASIC METABOLIC [id number] 08:31:00* Test Item Value Reference Range Interpretation Comments SODIUM (BEAKER) (test code = 381) 136 meq/L 136-145 POTASSIUM (BEAKER) (test code = 379) 5.2 meq/L 3.5-5.1 H CHLORIDE (BEAKER) (test code = 382) 100 meq/L 98-107 CO2 (BEAKER) (test code = 355) 23 meq/L 22-29 BLOOD UREA NITROGEN (BEAKER) (test code = 354) 67 mg/dL 7-21 H CREATININE (BEAKER) (test code = 358) 9.24 mg/dL 0.57-1.25 H GLUCOSE RANDOM (BEAKER) (test code = 652) 133 mg/dL 70-105 H CALCIUM (BEAKER) (test code = 697) 8.1 mg/dL 8.4-10.2 L EGFR (BEAKER) (test code = 1092) 5 mL/min/1.73 sq m ESTIMATED GFR IS NOT ACCURATE CREATININE CLEARANCE IN PREDICTING GLOMERULAR FILTRATION RATE. ESTIMATED GFR IS NOT APPLICABLE FOR DIALYSIS PATIENTS. Director Of Collections And Archives ID - MERRITT CCBC W/PLT COUNT & AUTO [id number] 08:08:00* Test Item Value Reference Range Interpretation Comments WHITE BLOOD CELL COUNT (BEAKER) (test code = 775) 7.2 K/ L 3.5- 10.5 RED BLOOD CELL COUNT (BEAKER) (test code = 761) 2.95 M/ L 3.93-5 .22 L HEMOGLOBIN (BEAKER) (test code = 410) 8.3 GM/DL 11.2-15.7 L HEMATOCRIT (BEAKER) (test code = 411) 27.7 % 34.1-44.9 L MEAN CORPUSCULAR VOLUME (BEAKER) (test code = 753) 93.9 fL 79. 4-94.8 MEAN CORPUSCULAR HEMOGLOBIN (BEAKER) (test code = 751) 28.1 pg 25.6-32.2 MEAN CORPUSCULAR HEMOGLOBIN CONC (BEAKER) (test code = 752) 30.0 GM/DL 32.2-35.5 L RED CELL DISTRIBUTION WIDTH (BEAKER) (test code = 412) 15.3 % 11.7-14.4 H PLATELET COUNT (BEAKER) (test code = 756) 200 K/CU MM 150-450 MEAN PLATELET VOLUME (BEAKER) (test code = 754) 10.8 fL 9.4-12 .3 NUCLEATED RED BLOOD CELLS (BEAKER) (test code = 413) 0 /100 WBC 0 -0 NEUTROPHILS RELATIVE PERCENT (BEAKER) (test code = 429) 81 % LYMPHOCYTES RELATIVE PERCENT (BEAKER) (test code = 430) 9 % MONOCYTES RELATIVE PERCENT (BEAKER) (test code = 431) 9 % EOSINOPHILS RELATIVE PERCENT (BEAKER) (test code = 432) 1 % BASOPHILS RELATIVE PERCENT (BEAKER) (test code = 437) 0 % NEUTROPHILS ABSOLUTE COUNT (BEAKER) (test code = 670) 5.82 K/ L 1.56-6.13 LYMPHOCYTES ABSOLUTE COUNT (BEAKER) (test code = 414) 0.64 K/ L 1.18-3.74 L MONOCYTES ABSOLUTE COUNT (BEAKER) (test code = 415) 0.65 K/ L 0. 24-0.36 H EOSINOPHILS ABSOLUTE COUNT (BEAKER) (test code = 416) 0.06 K/ L 0.04-0.36 BASOPHILS ABSOLUTE COUNT (BEAKER) (test code = 417) 0.01 K/ L 0. 01-0.08 IMMATURE GRANULOCYTES-RELATIVE PERCENT (BEAKER) (test code = 2801) 1 % 0-1 POCT-GLUCOSE [id number] 20:46:00* Test Item Value Reference Range Interpretation Comments POC-GLUCOSE METER (BEAKER) (test code = 1538) 126 mg/dL 70-110 H : TESTED AT [place] [id number] [facility], [address]: Director Of Collections And Archives/Residential Advisor ID = [id number] for W[place] HALL POCT-GLUCOSE [id number] 18:24:00* Test Item Value Reference Range Interpretation Comments POC-GLUCOSE METER (BEAKER) (test code = 1538) 135 mg/dL 70-110 H : TESTED AT [place] [id number] [facility], [address]: Director Of Collections And Archives/Residential Advisor ID = [id number] for BLANCHE COTTER Vancomycin level, [id number] 18:21:00* Test Item Value Reference Range Interpretation Comments Vancomycin Rm (test code = 97680-9) 21.8 ug/mL GABBY (test code = GABBY) Reference Range: No NormalsOperator ID - [facility] [id number] 18:21:00* Test Item Value Reference Range Interpretation Comments VANCOMYCIN RANDOM (BEAKER) (test code = 523) 21.8 ug/mL Reference Range: No NormalsOperator ID - ROSIANGPOCT-GLUCOSE [id number] 13:07:00* Test Item Value Reference Range Interpretation Comments POC-GLUCOSE METER (BEAKER) (test code = 1538) 118 mg/dL 70-110 H : TESTED AT [address], [address]: Director Of Collections And Archives/Residential Advisor ID = [id number] for TONY PALOMO [id number] 10:06:00* Test Item Value Reference Range Interpretation Comments POTASSIUM (BEAKER) (test code = 379) 4.3 meq/L 3.5-5.1 Director Of Collections And Archives ID - BENEDICTOGPOCT-GLUCOSE [id number] 06:53:00* Test Item Value Reference Range Interpretation Comments POC-GLUCOSE METER (BEAKER) (test code = 1538) 132 mg/dL 70-110 H : TESTED AT [address], [address]: Director Of Collections And Archives/Residential Advisor ID = [id number] for GUILLERMO GARCIA POCT-GLUCOSE [id number] 21:38:00* Test Item Value Reference Range Interpretation Comments POC-GLUCOSE METER (BEAKER) (test code = 1538) 137 mg/dL 70-110 H : TESTED AT [address], [address]: Director Of Collections And Archives/Residential Advisor ID = [id number] for GUILLERMO GARCIA POCT-GLUCOSE [id number] 18:09:00* Test Item Value Reference Range Interpretation Comments POC-GLUCOSE METER (BEAKER) (test code = 1538) 112 mg/dL 70-110 H : TESTED AT [address], [address]: Director Of Collections And Archives/Residential Advisor ID = [id number] for BIANKA ONEIL HEPATITIS B SURFACE [id number] 15:00:00* Test Item Value Reference Range Interpretation Comments HEPATITIS B SURFACE ANTIGEN (2) (BEAKER) (test code = 2585) Nonreactive Nonreactive Director Of Collections And Archives ID - BIMAL FVANCOMYCIN LEVEL, [id number] 14:37:00* Test Item Value Reference Range Interpretation Comments VANCOMYCIN RANDOM (BEAKER) (test code = 523) 11.0 ug/mL Reference Range: No NormalsOperator ID - BIMAL FPOCT-GLUCOSE [id number] 12:16:00* Test Item Value Reference Range Interpretation Comments POC-GLUCOSE METER (BEAKER) (test code = 1538) 143 mg/dL 70-110 H : TESTED AT [address], [address]: Director Of Collections And Archives/Residential Advisor ID = [id number] for BIANKA ONEIL HEMOGLOBIN [id number] 10:30:00* Test Item Value Reference Range Interpretation Comments HEMOGLOBIN A1C (BEAKER) (test code = 368) 6.5 % 4.3-6.1 H [id number] 06:10:00* Test Item Value Reference Range Interpretation Comments PROTIME (BEAKER) (test code = 759) 13.6 seconds 11.9-14.2 INR (BEAKER) (test code = 370) 1.1 <=5.9 PARTIAL THROMBOPLASTIN TIME (BEAKER) (test code = 760) 38.3 seconds 22.5-36.0 H Effective 12/11/2018: PT Reference Range ChangeNew: 11.9-14.2 Previous: 11.7-14. 7RECOMMENDED COUMADIN/WARFARIN INR THERAPY RANGESSTANDARD DOSE: 2.0-3.0 Include s: PROPHYLAXIS for venous thrombosis, systemic embolization; TREATMENT for venou s thrombosis and/or pulmonary embolus.HIGH RISK: Target INR is 2.5-3.5 for patie nts wiht mechanical heart valves.BASIC METABOLIC [id number] 05:58:00* Test Item Value Reference Range Interpretation Comments SODIUM (BEAKER) (test code = 381) 137 meq/L 136-145 POTASSIUM (BEAKER) (test code = 379) 5.8 meq/L 3.5-5.1 H CHLORIDE (BEAKER) (test code = 382) 99 meq/L 98-107 CO2 (BEAKER) (test code = 355) 23 meq/L 22-29 BLOOD UREA NITROGEN (BEAKER) (test code = 354) 103 mg/dL 7-21 H CREATININE (BEAKER) (test code = 358) 12.12 mg/dL 0.57-1.25 H GLUCOSE RANDOM (BEAKER) (test code = 652) 160 mg/dL 70-105 H CALCIUM (BEAKER) (test code = 697) 8.0 mg/dL 8.4-10.2 L EGFR (BEAKER) (test code = 1092) 4 mL/min/1.73 sq m ESTIMATED GFR IS NOT ACCURATE CREATININE CLEARANCE IN PREDICTING GLOMERULAR FILTRATION RATE. ESTIMATED GFR IS NOT APPLICABLE FOR DIALYSIS PATIENTS. Director Of Collections And Archives ID - PIAYA LCBC W/PLT COUNT & AUTO [id number] 05:23:00* Test Item Value Reference Range Interpretation Comments WHITE BLOOD CELL COUNT (BEAKER) (test code = 775) 7.2 K/ L 3.5- 10.5 RED BLOOD CELL COUNT (BEAKER) (test code = 761) 3.15 M/ L 3.93-5 .22 L HEMOGLOBIN (BEAKER) (test code = 410) 8.7 GM/DL 11.2-15.7 L HEMATOCRIT (BEAKER) (test code = 411) 29.2 % 34.1-44.9 L MEAN CORPUSCULAR VOLUME (BEAKER) (test code = 753) 92.7 fL 79. 4-94.8 MEAN CORPUSCULAR HEMOGLOBIN (BEAKER) (test code = 751) 27.6 pg 25.6-32.2 MEAN CORPUSCULAR HEMOGLOBIN CONC (BEAKER) (test code = 752) 29.8 GM/DL 32.2-35.5 L RED CELL DISTRIBUTION WIDTH (BEAKER) (test code = 412) 15.7 % 11.7-14.4 H PLATELET COUNT (BEAKER) (test code = 756) 243 K/CU MM 150-450 MEAN PLATELET VOLUME (BEAKER) (test code = 754) 10.9 fL 9.4-12 .3 NUCLEATED RED BLOOD CELLS (BEAKER) (test code = 413) 0 /100 WBC 0 -0 NEUTROPHILS RELATIVE PERCENT (BEAKER) (test code = 429) 77 % LYMPHOCYTES RELATIVE PERCENT (BEAKER) (test code = 430) 13 % MONOCYTES RELATIVE PERCENT (BEAKER) (test code = 431) 7 % EOSINOPHILS RELATIVE PERCENT (BEAKER) (test code = 432) 3 % BASOPHILS RELATIVE PERCENT (BEAKER) (test code = 437) 0 % NEUTROPHILS ABSOLUTE COUNT (BEAKER) (test code = 670) 5.50 K/ L 1.56-6.13 LYMPHOCYTES ABSOLUTE COUNT (BEAKER) (test code = 414) 0.91 K/ L 1.18-3.74 L MONOCYTES ABSOLUTE COUNT (BEAKER) (test code = 415) 0.52 K/ L 0. 24-0.36 H EOSINOPHILS ABSOLUTE COUNT (BEAKER) (test code = 416) 0.20 K/ L 0.04-0.36 BASOPHILS ABSOLUTE COUNT (BEAKER) (test code = 417) 0.01 K/ L 0. 01-0.08 IMMATURE GRANULOCYTES-RELATIVE PERCENT (BEAKER) (test code = 2801) 0 % 0-1 POCT-GLUCOSE [id number] 22:57:00* Test Item Value Reference Range Interpretation Comments POC-GLUCOSE METER (BEAKER) (test code = 1538) 157 mg/dL 70-110 H : TESTED AT [facility] [address] [facility], [address]: Director Of Collections And Archives/Residential Advisor ID = [id number] for W[place] HALL BASIC METABOLIC [id number] 18:03:00* Test Item Value Reference Range Interpretation Comments SODIUM (BEAKER) (test code = 381) 137 meq/L 136-145 POTASSIUM (BEAKER) (test code = 379) 5.1 meq/L 3.5-5.1 CHLORIDE (BEAKER) (test code = 382) 100 meq/L 98-107 CO2 (BEAKER) (test code = 355) 21 meq/L 22-29 L BLOOD UREA NITROGEN (BEAKER) (test code = 354) 97 mg/dL 7-21 H CREATININE (BEAKER) (test code = 358) 11.93 mg/dL 0.57-1.25 H GLUCOSE RANDOM (BEAKER) (test code = 652) 242 mg/dL 70-105 H CALCIUM (BEAKER) (test code = 697) 8.0 mg/dL 8.4-10.2 L EGFR (BEAKER) (test code = 1092) 4 mL/min/1.73 sq m ESTIMATED GFR IS NOT ACCURATE CREATININE CLEARANCE IN PREDICTING GLOMERULAR FILTRATION RATE. ESTIMATED GFR IS NOT APPLICABLE FOR DIALYSIS PATIENTS. Director Of Collections And Archives ID - [id number] 18:02:00* Test Item Value Reference Range Interpretation Comments PHOSPHORUS (BEAKER) (test code = 604) 7.1 mg/dL 2.3-4.7 H Director Of Collections And Archives ID - [id number] 18:02:00* Test Item Value Reference Range Interpretation Comments MAGNESIUM (BEAKER) (test code = 627) 2.2 mg/dL 1.6-2.6 Director Of Collections And Archives ID - BSPOCT-GLUCOSE [id number] 17:58:00* Test Item Value Reference Range Interpretation Comments POC-GLUCOSE METER (BEAKER) (test code = 1538) 193 mg/dL 70-110 H : TESTED AT [facility] [address] [facility], [address]: Director Of Collections And Archives/Residential Advisor ID = [id number] for TIFFANY SYLVESTER Creatine Kinase [id number] 13:03:00* Test Item Value Reference Range Interpretation Comments Creatine Kinase MB (test code = 99203-0) 3.00 0-5.0 [facility]Troponin [id number] 13:03:00* Test Item Value Reference Range Interpretation Comments Troponin I (test code = WDK9229) 0.027 0-0.300 [facility] Htxeu0015-43-00 12:55:00* Test Item Value Reference Range Interpretation Comments Sodium Level (test code = 2951-2) 142 136-145 [facility]Potassium Krmnd5407-11-99 12:55:00* Test Item Value Reference Range Interpretation Comments Potassium Level (test code = 2823-3) 4.0 3.5-5.1 [facility] CenterChloride [id number] 12:55:00* Test Item Value Reference Range Interpretation Comments Chloride Level (test code = 2075-0) 104 98-107 [facility] CenterCarbon Dioxide Hwxca1023-95-61 12:55:00* Test Item Value Reference Range Interpretation Comments Carbon Dioxide Level (test code = 2028-9) 25 22-29 [facility] CenterAnion Uuh8509-08-49 12:55:00* Test Item Value Reference Range Interpretation Comments Anion Gap (test code = 01084-5) 17.0 8-16 H [facility] CenterBlood Urea Bpwvfels8210-69-03 12:55:00* Test Item Value Reference Range Interpretation Comments Blood Urea Nitrogen (test code = 3094-0) 75 7-26 H [facility] CenterCreatinine2020-03-31 12:55:00* Test Item Value Reference Range Interpretation Comments Creatinine (test code = 2160-0) 9.48 0.57-1.11 H [facility] CenterBUN/Creatinine Oeqij1652-17-06 12:55:00* Test Item Value Reference Range Interpretation Comments BUN/Creatinine Ratio (test code = 3097-3) 8 6-25 [facility] CenterEstimat Glomerular Filtration Rate 2019-10-14 12:55:00* Test Item Value Reference Range Interpretation Comments Estimat Glomerular Filtration Rate (test code = 203414043) 5 >60 L Ranges were taken from the National Kidney Disease Education Program and the [facility] literature.Reference ranges:60 or greater: Jaxaki20-75 ( for 3 consecutive months): Chronic kidney disease 15 or less: Kidney failureKnapp Medical CenterGlucose Cfgrt9314-43-15 12:55:00* Test Item Value Reference Range Interpretation Comments Glucose Level (test code = QEZ6449) 137 74-118 H [facility] CenterCalcium Iqird4514-84-28 12:55:00* Test Item Value Reference Range Interpretation Comments Calcium Level (test code = 37336-5) 8.4 8.4-10.2 [facility] CenterTotal Cfslqgmnc1479-79-92 12:55:00* Test Item Value Reference Range Interpretation Comments Total Bilirubin (test code = 1975-2) 0.4 0.2-1.2 [facility] CenterAspartate Amino Transf (AST/SGOT) 2019-10-14 12:55:00* Test Item Value Reference Range Interpretation Comments Aspartate Amino Transf (AST/SGOT) (test code = Aspartate Amino Transf (AST/SGOT)) 12 5-34 [facility] CenterAlanine Aminotransferase (ALT/SGPT) 2019-10-14 12:55:00* Test Item Value Reference Range Interpretation Comments Alanine Aminotransferase (ALT/SGPT) (test code = 1742-6) 8 0-55 [facility] CenterTotal Retelzm0208-00-15 12:55:00* Test Item Value Reference Range Interpretation Comments Total Protein (test code = 2885-2) 7.7 6.5-8.1 [facility] CenterAlbumin2020-03-31 12:55:00* Test Item Value Reference Range Interpretation Comments Albumin (test code = 1751-7) 3.0 3.5-5.0 L [facility] CenterGlobulin2020-03-31 12:55:00* Test Item Value Reference Range Interpretation Comments Globulin (test code = 82035-6) 4.7 2.3-3.5 H [facility] CenterAlbumin/Globulin Ldqgm9510-68-76 12:55:00 * Test Item Value Reference Range Interpretation Comments Albumin/Globulin Ratio (test code = 1759-0) 0.6 0.8-2.0 L [facility] CenterAlkaline Gzlajdyymez7413-10-11 12:55:00* Test Item Value Reference Range Interpretation Comments Alkaline Phosphatase (test code = 6768-6) 74 40-150 [facility] CenterCreatine Dbpnrb4292-52-73 12:55:00* Test Item Value Reference Range Interpretation Comments Creatine Kinase (test code = 2157-6) 92 29-168 [facility] CenterProthrombin Apjr4036-74-22 12:46:00* Test Item Value Reference Range Interpretation Comments Prothrombin Time (test code = 5902-2) 14.1 11.9-14.5 [facility] CenterProthromb Time International Ratio 2019-10-14 12:46:00* Test Item Value Reference Range Interpretation Comments Prothromb Time International Ratio (test code = 6301-6) 1.03 Oral Anticoagulant Therapy INR Values:1. Low Intensity Therapy 1.5 - 2.02 . Moderate Intensity Therapy 2.0 - 3.03. High Intensity Therapy(1) 2.5 - 3. 54. High Intensity Therapy(2) 3.0 - 4.05. Panic Value INR > 5.0 [facility] CenterActivated Partial Thromboplast Time 2019-10-14 12:46:00* Test Item Value Reference Range Interpretation Comments Activated Partial Thromboplast Time (test code = 22864-2) 39.5 23.8-35.5 H [facility] CenterWhite Blood Xhuij9961-36-87 12:38:00* Test Item Value Reference Range Interpretation Comments White Blood Count (test code = 6690-2) 8.20 4.8-10.8 [facility] CenterRed Blood Phbtf0723-55-75 12:38:00* Test Item Value Reference Range Interpretation Comments Red Blood Count (test code = 789-8) 3.11 3.6-5.1 L [facility] CenterHemoglobin2020-03-31 12:38:00* Test Item Value Reference Range Interpretation Comments Hemoglobin (test code = 50120-9) 8.8 12.0-16.0 L [facility] CenterHematocrit2020-03-31 12:38:00* Test Item Value Reference Range Interpretation Comments Hematocrit (test code = 4544-3) 29.2 34.2-44.1 L [facility] CenterMean Corpuscular Mcvhad3353-22-33 12:38:00* Test Item Value Reference Range Interpretation Comments Mean Corpuscular Volume (test code = 787-2) 93.9 81-99 [facility] CenterMean Corpuscular Fkydpntypf7275-92-31 12:38:00* Test Item Value Reference Range Interpretation Comments Mean Corpuscular Hemoglobin (test code = 785-6) 28.3 28-32 [facility] CenterMean Corpuscular Hemoglobin Concent 2019-10-14 12:38:00* Test Item Value Reference Range Interpretation Comments Mean Corpuscular Hemoglobin Concent (test code = 786-4) 30.1 31-35 L [facility] CenterRed Cell Distribution Uuupv7502-55-03 12:38:00* Test Item Value Reference Range Interpretation Comments Red Cell Distribution Width (test code = 70511-3) 15.5 11.7 -14.4 H [facility] CenterPlatelet Ptugs5932-92-46 12:38:00* Test Item Value Reference Range Interpretation Comments Platelet Count (test code = 777-3) 236 140-360 [facility] CenterNeutrophils (%) (Auto)2019-10-14 12:38:00 * Test Item Value Reference Range Interpretation Comments Neutrophils (%) (Auto) (test code = 59822-0) 72.1 38.7-80.0 [facility] CenterLymphocytes (%) (Auto)2019-10-14 12:38:00 * Test Item Value Reference Range Interpretation Comments Lymphocytes (%) (Auto) (test code = 736-9) 15.6 18.0-39.1 L [facility] CenterMonocytes (%) (Auto)2019-10-14 12:38:00* Test Item Value Reference Range Interpretation Comments Monocytes (%) (Auto) (test code = 5905-5) 8.9 4.4-11.3 [facility] CenterEosinophils (%) (Auto)2019-10-14 12:38:00 * Test Item Value Reference Range Interpretation Comments Eosinophils (%) (Auto) (test code = 713-8) 2.9 0.0-6.0 [facility] CenterBasophils (%) (Auto)2019-10-14 12:38:00* Test Item Value Reference Range Interpretation Comments Basophils (%) (Auto) (test code = 706-2) 0.1 0.0-1.0 [facility] CenterIM GRANULOCYTES %2019-10-14 12:38:00* Test Item Value Reference Range Interpretation Comments IM GRANULOCYTES % (test code = IM GRANULOCYTES %) 0.4 0.0- 1.0 [facility] CenterNeutrophils # (Auto)2019-10-14 12:38:00* Test Item Value Reference Range Interpretation Comments Neutrophils # (Auto) (test code = 751-8) 5.9 2.1-6.9 [facility] CenterLymphocytes # (Auto)2019-10-14 12:38:00* Test Item Value Reference Range Interpretation Comments Lymphocytes # (Auto) (test code = 40110-8) 1.3 1.0-3.2 [facility] CenterMonocytes # (Auto)2019-10-14 12:38:00* Test Item Value Reference Range Interpretation Comments Monocytes # (Auto) (test code = 742-7) 0.7 0.2-0.8 [facility] CenterEosinophils # (Auto)2019-10-14 12:38:00* Test Item Value Reference Range Interpretation Comments Eosinophils # (Auto) (test code = 711-2) 0.2 0.0-0.4 [facility] CenterBasophils # (Auto)2019-10-14 12:38:00* Test Item Value Reference Range Interpretation Comments Basophils # (Auto) (test code = 704-7) 0.0 0.0-0.1 [facility] CenterAbsolute Immature Granulocyte (auto 2019-10-14 12:38:00* Test Item Value Reference Range Interpretation Comments Absolute Immature Granulocyte (auto (toby t code = Absolute Immature Granulocyte (auto) 0.03 0-0.1 [facility] CenterPOCT-GLUCOSE [id number] 08:51:00* Test Item Value Reference Range Interpretation Comments POC-GLUCOSE METER (BEAKER) (test code = 1538) 98 mg/dL 70-110 : TESTED AT [address], [address]: Director Of Collections And Archives/Residential Advisor ID = [id number] for TAYA OSBALDO POCT-GLUCOSE [id number] 21:15:00* Test Item Value Reference Range Interpretation Comments POC-GLUCOSE METER (BEAKER) (test code = 1538) 155 mg/dL 70-110 H : TESTED AT [address], [address]: Director Of Collections And Archives/Residential Advisor ID = [id number] for BEATRICE CURRY POCT-GLUCOSE [id number] 17:02:00* Test Item Value Reference Range Interpretation Comments POC-GLUCOSE METER (BEAKER) (test code = 1538) 111 mg/dL 70-110 H : TESTED AT [address], [address]: Director Of Collections And Archives/Residential Advisor ID = [id number] for JOHANA FERNANDEZ HEMODIALYSIS [id number] 15:25:12Johana Fernandez RN 09/18/2019 6:53 PMCompleted 4 hours of Hd via left upper arm AVF, with net fluid removed of 1.4 liters. UF goal of 2 liters not met due to hypotension during treatment. [...] 09/16/2019 CREATININE 8.06 (H) 09/16/2019 Results for ANGELA JEFFERS ( ) as of 09/18/2019 15:25 Ref. Range 09/13/2019 04:47 Hepatitis B Surface Ag Latest Ref Range: Nonreactive Nonreactive [facility] [id number] 11:47:00* Test Item Value Reference Range Interpretation Comments POC-GLUCOSE METER (BEAKER) (test code = 1538) 135 mg/dL 70-110 H : TESTED AT [address], [address]: Director Of Collections And Archives/Residential Advisor ID = [id number] for SHERITA MARTINEZ POCT-GLUCOSE [id number] 07:50:00* Test Item Value Reference Range Interpretation Comments POC-GLUCOSE METER (BEAKER) (test code = 1538) 109 mg/dL 70-110 : TESTED AT [address], [address]: Director Of Collections And Archives/Residential Advisor ID = [id number] for SHERITA MARTINEZ POCT-GLUCOSE [id number] 22:38:00* Test Item Value Reference Range Interpretation Comments POC-GLUCOSE METER (BEAKER) (test code = 1538) 114 mg/dL 70-110 H : TESTED AT [address], [address]: Director Of Collections And Archives/Residential Advisor ID = [id number] for SEAN MIRANDA POCT-GLUCOSE [id number] 16:39:00* Test Item Value Reference Range Interpretation Comments POC-GLUCOSE METER (BEAKER) (test code = 1538) 129 mg/dL 70-110 H : TESTED AT [address], [address]: Director Of Collections And Archives/Residential Advisor ID = [id number] for SHERITA MARTINEZ POCT-GLUCOSE [id number] 07:54:00* Test Item Value Reference Range Interpretation Comments POC-GLUCOSE METER (BEAKER) (test code = 1538) 130 mg/dL 70-110 H : TESTED AT [facility] [address] [facility], [address]: Director Of Collections And Archives/Residential Advisor ID = [id number] for SHERITA MARTINEZ POCT-GLUCOSE [id number] 20:41:00* Test Item Value Reference Range Interpretation Comments POC-GLUCOSE METER (BEAKER) (test code = 1538) 134 mg/dL 70-110 H : TESTED AT [place] [id number] [facility], [address]: Director Of Collections And Archives/Residential Advisor ID = [id number] for RAMON MARQUEZ POCT-GLUCOSE [id number] 17:26:00* Test Item Value Reference Range Interpretation Comments POC-GLUCOSE METER (BEAKER) (test code = 1538) 138 mg/dL 70-110 H : TESTED AT [address], [address]: Director Of Collections And Archives/Residential Advisor ID = [id number] for OSBADLO BAIN POCT-GLUCOSE [id number] 11:33:00* Test Item Value Reference Range Interpretation Comments POC-GLUCOSE METER (BEAKER) (test code = 1538) 100 mg/dL 70-110 : TESTED AT [address], [address]: Director Of Collections And Archives/Residential Advisor ID = [id number] for MI MADDEN BASIC METABOLIC [id number] 05:15:00* Test Item Value Reference Range Interpretation Comments SODIUM (BEAKER) (test code = 381) 137 meq/L 136-145 POTASSIUM (BEAKER) (test code = 379) 4.8 meq/L 3.5-5.1 CHLORIDE (BEAKER) (test code = 382) 102 meq/L 98-107 CO2 (BEAKER) (test code = 355) 29 meq/L 22-29 BLOOD UREA NITROGEN (BEAKER) (test code = 354) 35 mg/dL 7-21 H CREATININE (BEAKER) (test code = 358) 8.06 mg/dL 0.57-1.25 H GLUCOSE RANDOM (BEAKER) (test code = 652) 133 mg/dL 70-105 H CALCIUM (BEAKER) (test code = 697) 9.5 mg/dL 8.4-10.2 EGFR (BEAKER) (test code = 1092) 6 mL/min/1.73 sq m ESTIMATED GFR IS NOT ACCURATE CREATININE CLEARANCE IN PREDICTING GLOMERULAR FILTRATION RATE. ESTIMATED GFR IS NOT APPLICABLE FOR DIALYSIS PATIENTS. Director Of Collections And Archives ID - LAWRENCE WCBC W/PLT COUNT & AUTO [id number] 05:05:00* Test Item Value Reference Range Interpretation Comments WHITE BLOOD CELL COUNT (BEAKER) (test code = 775) 5.9 K/ L 3.5- 10.5 RED BLOOD CELL COUNT (BEAKER) (test code = 761) 3.25 M/ L 3.93-5 .22 L HEMOGLOBIN (BEAKER) (test code = 410) 9.4 GM/DL 11.2-15.7 L HEMATOCRIT (BEAKER) (test code = 411) 30.7 % 34.1-44.9 L MEAN CORPUSCULAR VOLUME (BEAKER) (test code = 753) 94.5 fL 79. 4-94.8 MEAN CORPUSCULAR HEMOGLOBIN (BEAKER) (test code = 751) 28.9 pg 25.6-32.2 MEAN CORPUSCULAR HEMOGLOBIN CONC (BEAKER) (test code = 752) 30.6 GM/DL 32.2-35.5 L RED CELL DISTRIBUTION WIDTH (BEAKER) (test code = 412) 13.7 % 11.7-14.4 PLATELET COUNT (BEAKER) (test code = 756) 175 K/CU MM 150-450 MEAN PLATELET VOLUME (BEAKER) (test code = 754) 12.3 fL 9.4-12 .3 NUCLEATED RED BLOOD CELLS (BEAKER) (test code = 413) 0 /100 WBC 0 -0 NEUTROPHILS RELATIVE PERCENT (BEAKER) (test code = 429) 69 % LYMPHOCYTES RELATIVE PERCENT (BEAKER) (test code = 430) 19 % MONOCYTES RELATIVE PERCENT (BEAKER) (test code = 431) 10 % EOSINOPHILS RELATIVE PERCENT (BEAKER) (test code = 432) 2 % BASOPHILS RELATIVE PERCENT (BEAKER) (test code = 437) 0 % NEUTROPHILS ABSOLUTE COUNT (BEAKER) (test code = 670) 4.04 K/ L 1.56-6.13 LYMPHOCYTES ABSOLUTE COUNT (BEAKER) (test code = 414) 1.14 K/ L 1.18-3.74 L MONOCYTES ABSOLUTE COUNT (BEAKER) (test code = 415) 0.56 K/ L 0. 24-0.36 H EOSINOPHILS ABSOLUTE COUNT (BEAKER) (test code = 416) 0.10 K/ L 0.04-0.36 BASOPHILS ABSOLUTE COUNT (BEAKER) (test code = 417) 0.02 K/ L 0. 01-0.08 IMMATURE GRANULOCYTES-RELATIVE PERCENT (BEAKER) (test code = 2801) 0 % 0-1 POCT-GLUCOSE [id number] 21:26:00* Test Item Value Reference Range Interpretation Comments POC-GLUCOSE METER (BEAKER) (test code = 1538) 124 mg/dL 70-110 H : TESTED AT [address], [address]: Director Of Collections And Archives/Residential Advisor ID = [id number] for RAMON MARQUEZ POCT-GLUCOSE [id number] 18:25:00* Test Item Value Reference Range Interpretation Comments POC-GLUCOSE METER (BEAKER) (test code = 1538) 166 mg/dL 70-110 H : TESTED AT [address], [address]: Director Of Collections And Archives/Residential Advisor ID = [id number] for OSBALDO BAIN POCT-GLUCOSE [id number] 12:13:00* Test Item Value Reference Range Interpretation Comments POC-GLUCOSE METER (BEAKER) (test code = 1538) 92 mg/dL 70-110 : TESTED AT [address], [address]: Director Of Collections And Archives/Residential Advisor ID = [id number] for OSBALDO BAIN POCT-GLUCOSE [id number] 08:17:00* Test Item Value Reference Range Interpretation Comments POC-GLUCOSE METER (BEAKER) (test code = 1538) 106 mg/dL 70-110 : TESTED AT [address], [address]: Director Of Collections And Archives/Residential Advisor ID = [id number] for OSBALDO BAIN POCT-GLUCOSE [id number] 20:51:00* Test Item Value Reference Range Interpretation Comments POC-GLUCOSE METER (BEAKER) (test code = 1538) 128 mg/dL 70-110 H : Notified RN/MD: TESTED AT [address], [address]: Director Of Collections And Archives/Residential Advisor ID = [id number] for BEATRICE CURRY POCT-GLUCOSE [id number] 16:43:00* Test Item Value Reference Range Interpretation Comments POC-GLUCOSE METER (BEAKER) (test code = 1538) 133 mg/dL 70-110 H : TESTED AT [address], [address]: Director Of Collections And Archives/Residential Advisor ID = [id number] for SHERITA MARTINEZ POCT-GLUCOSE [id number] 11:38:00* Test Item Value Reference Range Interpretation Comments POC-GLUCOSE METER (BEAKER) (test code = 1538) 229 mg/dL 70-110 H : TESTED AT [place] [id number] [facility], [address]: Director Of Collections And Archives/Residential Advisor ID = [id number] for SHERITA MARTINEZ POCT-GLUCOSE [id number] 06:09:00* Test Item Value Reference Range Interpretation Comments POC-GLUCOSE METER (BEAKER) (test code = 1538) 138 mg/dL 70-110 H : Notified RN/MD: TESTED AT [address], [address]: Director Of Collections And Archives/Residential Advisor ID = [id number] for BEATRICE CURRY BASIC METABOLIC [id number] 15:42:00* Test Item Value Reference Range Interpretation Comments SODIUM (BEAKER) (test code = 381) 139 meq/L 136-145 POTASSIUM (BEAKER) (test code = 379) 4.4 meq/L 3.5-5.1 CHLORIDE (BEAKER) (test code = 382) 103 meq/L 98-107 CO2 (BEAKER) (test code = 355) 31 meq/L 22-29 H BLOOD UREA NITROGEN (BEAKER) (test code = 354) 25 mg/dL 7-21 H CREATININE (BEAKER) (test code = 358) 7.27 mg/dL 0.57-1.25 H GLUCOSE RANDOM (BEAKER) (test code = 652) 137 mg/dL 70-105 H CALCIUM (BEAKER) (test code = 697) 10.0 mg/dL 8.4-10.2 EGFR (BEAKER) (test code = 1092) 7 mL/min/1.73 sq m ESTIMATED GFR IS NOT ACCURATE CREATININE CLEARANCE IN PREDICTING GLOMERULAR FILTRATION RATE. ESTIMATED GFR IS NOT APPLICABLE FOR DIALYSIS PATIENTS. Director Of Collections And Archives ID - AMALIA [id number] 15:35:00* Test Item Value Reference Range Interpretation Comments PHOSPHORUS (BEAKER) (test code = 604) 1.9 mg/dL 2.3-4.7 L Director Of Collections And Archives ID - AMALIA NHemoglobin and [id number] 15:18:00* Test Item Value Reference Range Interpretation Comments Hemoglobin (test code = 786-4) 8.5 11.2- 15.7 GM/DL L Hematocrit (test code = 4544-3) 28.3 % 34.1-44.9 L GABBY (test code = GABBY) Director Of Collections And Archives ID - [id number] Lab Interpretation (test code = 90792-2) Abnormal [facility] AND [id number] 15:18:00* Test Item Value Reference Range Interpretation Comments HEMOGLOBIN (BEAKER) (test code = 410) 8.5 GM/DL 11.2-15.7 L HEMATOCRIT (BEAKER) (test code = 411) 28.3 % 34.1-44.9 L Director Of Collections And Archives ID - [id number]-GLUCOSE [id number] 11:26:00* Test Item Value Reference Range Interpretation Comments POC-GLUCOSE METER (BEAKER) (test code = 1538) 122 mg/dL 70-110 H : TESTED AT [address], [address]: Director Of Collections And Archives/Residential Advisor ID = [id number] for QUEEN HALL POCT-GLUCOSE [id number] 07:28:00* Test Item Value Reference Range Interpretation Comments POC-GLUCOSE METER (BEAKER) (test code = 1538) 99 mg/dL 70-110 : TESTED AT [address], [address]: Director Of Collections And Archives/Residential Advisor ID = [id number] for [place]ALL HEPATITIS B SURFACE [id number] 05:52:00* Test Item Value Reference Range Interpretation Comments HEPATITIS B SURFACE ANTIGEN (2) (BEAKER) (test code = 2585) Nonreactive Nonreactive Director Of Collections And Archives ID - CURT MPOCT-GLUCOSE [id number] 20:57:00* Test Item Value Reference Range Interpretation Comments POC-GLUCOSE METER (BEAKER) (test code = 1538) 147 mg/dL 70-110 H : TESTED AT [address], [address]: Director Of Collections And Archives/Residential Advisor ID = [id number] for OTTOCHERELLE MARLENEDERRICK POCT-GLUCOSE [id number] 16:48:00* Test Item Value Reference Range Interpretation Comments POC-GLUCOSE METER (BEAKER) (test code = 1538) 158 mg/dL 70-110 H : TESTED AT [address], [address]: Director Of Collections And Archives/Residential Advisor ID = [id number] for QUEEN HALL POCT-GLUCOSE [id number] 12:29:00* Test Item Value Reference Range Interpretation Comments POC-GLUCOSE METER (BEAKER) (test code = 1538) 138 mg/dL 70-110 H : TESTED AT [address], [address]: Director Of Collections And Archives/Residential Advisor ID = [id number] for QUEEN HALL POCT-GLUCOSE [id number] 07:36:00* Test Item Value Reference Range Interpretation Comments POC-GLUCOSE METER (BEAKER) (test code = 1538) 125 mg/dL 70-110 H : TESTED AT [address], [address]: Director Of Collections And Archives/Residential Advisor ID = [id number] for [place] HALL POCT-GLUCOSE [id number] 22:02:00* Test Item Value Reference Range Interpretation Comments POC-GLUCOSE METER (BEAKER) (test code = 1538) 136 mg/dL 70-110 H : TESTED AT [address], [address]: Director Of Collections And Archives/Residential Advisor ID = [id number] for PARVIN, SAUDATU POCT-GLUCOSE [id number] 09:33:00* Test Item Value Reference Range Interpretation Comments POC-GLUCOSE METER (BEAKER) (test code = 1538) 82 mg/dL 70-110 : TESTED AT [address], [address]: Director Of Collections And Archives/Residential Advisor ID = [id number] for ANUP TR POCT-GLUCOSE [id number] 22:02:00* Test Item Value Reference Range Interpretation Comments POC-GLUCOSE METER (BEAKER) (test code = 1538) 103 mg/dL 70-110 : TESTED AT [address], [address]: Director Of Collections And Archives/Residential Advisor ID = [id number] for PARVIN, SAUDATU POCT-GLUCOSE [id number] 18:19:00* Test Item Value Reference Range Interpretation Comments POC-GLUCOSE METER (BEAKER) (test code = 1538) 112 mg/dL 70-110 H : Notified RN/MD: TESTED AT [address], [address]: Director Of Collections And Archives/Residential Advisor ID = [id number] for JAE RICHMOND POCT-GLUCOSE [id number] 12:02:00* Test Item Value Reference Range Interpretation Comments POC-GLUCOSE METER (BEAKER) (test code = 1538) 98 mg/dL 70-110 : TESTED AT [facility] [address] [facility], [address]: Director Of Collections And Archives/Residential Advisor ID = [id number] for JAE RICHMOND POCT-GLUCOSE [id number] 09:03:00* Test Item Value Reference Range Interpretation Comments POC-GLUCOSE METER (BEAKER) (test code = 1538) 86 mg/dL 70-110 : TESTED AT [place] [id number] [facility], [address]: Director Of Collections And Archives/Residential Advisor ID = [id number] for JAE RICHMOND BASIC METABOLIC [id number] 06:00:00* Test Item Value Reference Range Interpretation Comments SODIUM (BEAKER) (test code = 381) 136 meq/L 136-145 POTASSIUM (BEAKER) (test code = 379) 4.0 meq/L 3.5-5.1 Specimen slightly hemolyzed CHLORIDE (BEAKER) (test code = 382) 101 meq/L 98-107 CO2 (BEAKER) (test code = 355) 27 meq/L 22-29 BLOOD UREA NITROGEN (BEAKER) (test code = 354) 23 mg/dL 7-21 H CREATININE (BEAKER) (test code = 358) 5.55 mg/dL 0.57-1.25 H Specimen slightly hemolyzed GLUCOSE RANDOM (BEAKER) (test code = 652) 98 mg/dL 70-105 CALCIUM (BEAKER) (test code = 697) 9.4 mg/dL 8.4-10.2 EGFR (BEAKER) (test code = 1092) 9 mL/min/1.73 sq m ESTIMATED GFR IS NOT ACCURATE CREATININE CLEARANCE IN PREDICTING GLOMERULAR FILTRATION RATE. ESTIMATED GFR IS NOT APPLICABLE FOR DIALYSIS PATIENTS. Director Of Collections And Archives ID - CURT [id number] 05:49:00* Test Item Value Reference Range Interpretation Comments PHOSPHORUS (BEAKER) (test code = 604) 1.7 mg/dL 2.3-4.7 L Specimen slightly hemolyzed Director Of Collections And Archives ID - CURT MPOCT-GLUCOSE [id number] 20:47:00* Test Item Value Reference Range Interpretation Comments POC-GLUCOSE METER (BEAKER) (test code = 1538) 124 mg/dL 70-110 H : Notified RN/MD: TESTED AT [facility] [address] [facility], [address]: Director Of Collections And Archives/Residential Advisor ID = [id number] for BEATRICE CURRY TISSUE [id number] 19:31:00Surgical Pathology Report Case: [id number] Authorizing Provider: Goyo Haji, Collected: 08/29/2019 1409 MD Ordering Location: [facility] PERIOPERATIVE Received: 08/29/2019 1506 SERVICES Pathologist: Steffany Tovar MD Specimen: Foot, Right, right forefoot RIGHT FOREFOOT, TRANSMETATARSAL AMPUTATION: - GANGRENOUS NECROSIS - FOCAL, SUPERFICIAL OSTEOMYELITIS - SKIN AND SOFT TISSUE AT THE MARGIN, VIABLE - BONES AT THE MARGIN, VIABLE - NEGATIVE FOR MALIGNANCY Signing Pathologist Direct Phone Line: [phone] signed by Steffany Tovar MD on 09/09/2019 at 7:31 [id number]; [id number] and postoperative diagnosis: Gangrene of right footA. Foot, right A. Received labeled with the patient's name, accession number and "right foot". Specimen A received in formalin is a right forefoot amputation transected at the metatarsals measuring 9.0 x 8.9 x 3.0 cm. The forefoot is covered in shay-brown skin and exhibits 5 digits, each within yellow and encrypted toenail. The skin soft tissue at the line of amputation appears grossly viable. Digits 1, 2 and 3 exhibit a blackened and encrusted lesion beginning mid digit to the tip of the digit. The lesion comes within 2.8 cm of the skin and soft tissue line of resection. Skin slippage is noted on all 5 digits. The bone underlying the lesion does not appear to be softened. Transcript Clerk sections are submitted. Section code: A1 skin and soft tissue at line of resection; A2. Lesion. A3. First digit bone margin following decalcification, en face. A4. Second digit bone margin following decalcification, en face. A5 Third digit bone margin following decalcification, en face. A6, fourth digit bone margin following dec alcification, en face; A7 fifth digit bone margin following decalcification, en face; A8 bone underlying lesion following decalcification. L?/bc PERFORMED HEMODIALYSIS [id number] 12:23:00José Escalante RN 09/09/2019 12:25 PMLab Results Component Value Date GLUCOSE 150 (H) 09/07/2019 CALCIUM 8.9 09/07/2019 NA 132 (L) 09/07/2019 K 3.7 09/07/2019 CO2 26 09/07/2019 CL 98 09/07/2019 BUN 24 (H) 09/07/2019 CREATININE 5.45 (H) 09/07/2019 Lab Results Component Value Date WBC 5.9 09/07/2019 HGB 8.7 (L) 09/07/2019 HCT 28.9 (L) 09/07/2019 MCV 95.4 (H) 09/07/2019 PLT 173 09/07/2019 Results for ANGELA JEFFERS ( ) as of 09/09/2019 09:39 Ref. Range 08/14/2019 20:43 Hepatitis B Surface Ag Latest Ref Range: Nonreactive Nonreactive HD X 3 hours 10 minutes completes- treatment ended early per Dr Burton order. Patient confused during treatment, worsening as treatment pr ogressed. Net UF -1.8L. Hypertensive. PO Adalat ER given at end of treatment. Sitter with patient throughout treatment. Patient refused to eat during treat ment. Incontinent stool during HD. José Escalante [facility] [id number] 10:19:00* Test Item Value Reference Range Interpretation Comments POC-GLUCOSE METER (BEAKER) (test code = 1538) 124 mg/dL 70-110 H : TESTED AT [address], [address]: Director Of Collections And Archives/Residential Advisor ID = [id number] for JOSÉ ESCALANTE POCT-GLUCOSE [id number] 20:43:00* Test Item Value Reference Range Interpretation Comments POC-GLUCOSE METER (BEAKER) (test code = 1538) 144 mg/dL 70-110 H : Notified RN/MD: TESTED AT [address], [address]: Director Of Collections And Archives/Residential Advisor ID = [id number] for BEATRICE CURRY POCT-GLUCOSE [id number] 16:39:00* Test Item Value Reference Range Interpretation Comments POC-GLUCOSE METER (BEAKER) (test code = 1538) 163 mg/dL 70-110 H : TESTED AT [address], [address]: Director Of Collections And Archives/Residential Advisor ID = [id number] for QUEEN HALL POCT-GLUCOSE [id number] 12:34:00* Test Item Value Reference Range Interpretation Comments POC-GLUCOSE METER (BEAKER) (test code = 1538) 152 mg/dL 70-110 H : TESTED AT [address], [address]: Director Of Collections And Archives/Residential Advisor ID = [id number] for QUEEN HALL POCT-GLUCOSE [id number] 08:44:00* Test Item Value Reference Range Interpretation Comments POC-GLUCOSE METER (BEAKER) (test code = 1538) 151 mg/dL 70-110 H : TESTED AT [address], [address]: Director Of Collections And Archives/Residential Advisor ID = [id number] for BO OVIEDO [id number] 07:23:00* Test Item Value Reference Range Interpretation Comments PHOSPHORUS (BEAKER) (test code = 604) 1.2 mg/dL 2.3-4.7 LL Director Of Collections And Archives ID - NTPPOCT-GLUCOSE [id number] 21:37:00* Test Item Value Reference Range Interpretation Comments POC-GLUCOSE METER (BEAKER) (test code = 1538) 199 mg/dL 70-110 H : TESTED AT [address], [address]: Director Of Collections And Archives/Residential Advisor ID = [id number] for OLIVER MELENDREZ POCT-GLUCOSE [id number] 18:32:00* Test Item Value Reference Range Interpretation Comments POC-GLUCOSE METER (BEAKER) (test code = 1538) 185 mg/dL 70-110 H : TESTED AT [address], [address]: Director Of Collections And Archives/Residential Advisor ID = [id number] for JAMMIE CASAS BASIC METABOLIC [id number] 06:44:00* Test Item Value Reference Range Interpretation Comments SODIUM (BEAKER) (test code = 381) 132 meq/L 136-145 L POTASSIUM (BEAKER) (test code = 379) 3.7 meq/L 3.5-5.1 CHLORIDE (BEAKER) (test code = 382) 98 meq/L 98-107 CO2 (BEAKER) (test code = 355) 26 meq/L 22-29 BLOOD UREA NITROGEN (BEAKER) (test code = 354) 24 mg/dL 7-21 H CREATININE (BEAKER) (test code = 358) 5.45 mg/dL 0.57-1.25 H GLUCOSE RANDOM (BEAKER) (test code = 652) 150 mg/dL 70-105 H CALCIUM (BEAKER) (test code = 697) 8.9 mg/dL 8.4-10.2 EGFR (BEAKER) (test code = 1092) 9 mL/min/1.73 sq m ESTIMATED GFR IS NOT ACCURATE CREATININE CLEARANCE IN PREDICTING GLOMERULAR FILTRATION RATE. ESTIMATED GFR IS NOT APPLICABLE FOR DIALYSIS PATIENTS. Director Of Collections And Archives ID - [id number] 06:41:00* Test Item Value Reference Range Interpretation Comments PHOSPHORUS (BEAKER) (test code = 604) 2.2 mg/dL 2.3-4.7 L Director Of Collections And Archives ID - [id number] 06:41:00* Test Item Value Reference Range Interpretation Comments MAGNESIUM (BEAKER) (test code = 627) 2.0 mg/dL 1.6-2.6 Director Of Collections And Archives ID - DBCBC W/PLT COUNT & AUTO [id number] 05:40:00* Test Item Value Reference Range Interpretation Comments WHITE BLOOD CELL COUNT (BEAKER) (test code = 775) 5.9 K/ L 3.5- 10.5 RED BLOOD CELL COUNT (BEAKER) (test code = 761) 3.03 M/ L 3.93-5 .22 L HEMOGLOBIN (BEAKER) (test code = 410) 8.7 GM/DL 11.2-15.7 L HEMATOCRIT (BEAKER) (test code = 411) 28.9 % 34.1-44.9 L MEAN CORPUSCULAR VOLUME (BEAKER) (test code = 753) 95.4 fL 79. 4-94.8 H MEAN CORPUSCULAR HEMOGLOBIN (BEAKER) (test code = 751) 28.7 pg 25.6-32.2 MEAN CORPUSCULAR HEMOGLOBIN CONC (BEAKER) (test code = 752) 30.1 GM/DL 32.2-35.5 L RED CELL DISTRIBUTION WIDTH (BEAKER) (test code = 412) 14.0 % 11.7-14.4 PLATELET COUNT (BEAKER) (test code = 756) 173 K/CU MM 150-450 MEAN PLATELET VOLUME (BEAKER) (test code = 754) 11.8 fL 9.4-12 .3 NUCLEATED RED BLOOD CELLS (BEAKER) (test code = 413) 0 /100 WBC 0 -0 NEUTROPHILS RELATIVE PERCENT (BEAKER) (test code = 429) 72 % LYMPHOCYTES RELATIVE PERCENT (BEAKER) (test code = 430) 15 % MONOCYTES RELATIVE PERCENT (BEAKER) (test code = 431) 10 % EOSINOPHILS RELATIVE PERCENT (BEAKER) (test code = 432) 2 % BASOPHILS RELATIVE PERCENT (BEAKER) (test code = 437) 0 % NEUTROPHILS ABSOLUTE COUNT (BEAKER) (test code = 670) 4.30 K/ L 1.56-6.13 LYMPHOCYTES ABSOLUTE COUNT (BEAKER) (test code = 414) 0.91 K/ L 1.18-3.74 L MONOCYTES ABSOLUTE COUNT (BEAKER) (test code = 415) 0.62 K/ L 0. 24-0.36 H EOSINOPHILS ABSOLUTE COUNT (BEAKER) (test code = 416) 0.09 K/ L 0.04-0.36 BASOPHILS ABSOLUTE COUNT (BEAKER) (test code = 417) 0.01 K/ L 0. 01-0.08 IMMATURE GRANULOCYTES-RELATIVE PERCENT (BEAKER) (test code = 2801) 0 % 0-1 POCT-GLUCOSE [id number] 21:35:00* Test Item Value Reference Range Interpretation Comments POC-GLUCOSE METER (BEAKER) (test code = 1538) 137 mg/dL 70-110 H : TESTED AT [address], [address]: Director Of Collections And Archives/Residential Advisor ID = [id number] for DEMARCUS MELENDREZU POCT-GLUCOSE [id number] 12:52:00* Test Item Value Reference Range Interpretation Comments POC-GLUCOSE METER (BEAKER) (test code = 1538) 157 mg/dL 70-110 H : TESTED AT [address], [address]: Director Of Collections And Archives/Residential Advisor ID = [id number] for JAMMIE CASAS POCT-GLUCOSE [id number] 07:41:00* Test Item Value Reference Range Interpretation Comments POC-GLUCOSE METER (BEAKER) (test code = 1538) 81 mg/dL 70-110 : TESTED AT [address], [address]: Director Of Collections And Archives/Residential Advisor ID = [id number] for JAMMIE CASAS BASIC METABOLIC [id number] 04:53:00* Test Item Value Reference Range Interpretation Comments SODIUM (BEAKER) (test code = 381) 132 meq/L 136-145 L POTASSIUM (BEAKER) (test code = 379) 4.8 meq/L 3.5-5.1 Specimen slightly hemolyzed CHLORIDE (BEAKER) (test code = 382) 97 meq/L 98-107 L CO2 (BEAKER) (test code = 355) 26 meq/L 22-29 BLOOD UREA NITROGEN (BEAKER) (test code = 354) 46 mg/dL 7-21 H CREATININE (BEAKER) (test code = 358) 8.43 mg/dL 0.57-1.25 H Specimen slightly hemolyzed GLUCOSE RANDOM (BEAKER) (test code = 652) 93 mg/dL 70-105 CALCIUM (BEAKER) (test code = 697) 9.5 mg/dL 8.4-10.2 EGFR (BEAKER) (test code = 1092) 6 mL/min/1.73 sq m ESTIMATED GFR IS NOT ACCURATE CREATININE CLEARANCE IN PREDICTING GLOMERULAR FILTRATION RATE. ESTIMATED GFR IS NOT APPLICABLE FOR DIALYSIS PATIENTS. Director Of Collections And Archives ID - CURT [id number] 04:37:00* Test Item Value Reference Range Interpretation Comments MAGNESIUM (BEAKER) (test code = 627) 2.1 mg/dL 1.6-2.6 Specimen slightly hemolyzed Director Of Collections And Archives ID - CURT [id number] 04:37:00* Test Item Value Reference Range Interpretation Comments PHOSPHORUS (BEAKER) (test code = 604) 3.4 mg/dL 2.3-4.7 Specimen slightly hemolyzed Director Of Collections And Archives ID - CURT MCBC W/PLT COUNT & AUTO [id number] 04:16:00* Test Item Value Reference Range Interpretation Comments WHITE BLOOD CELL COUNT (BEAKER) (test code = 775) 6.3 K/ L 3.5- 10.5 RED BLOOD CELL COUNT (BEAKER) (test code = 761) 3.01 M/ L 3.93-5 .22 L HEMOGLOBIN (BEAKER) (test code = 410) 8.9 GM/DL 11.2-15.7 L HEMATOCRIT (BEAKER) (test code = 411) 28.7 % 34.1-44.9 L MEAN CORPUSCULAR VOLUME (BEAKER) (test code = 753) 95.3 fL 79. 4-94.8 H MEAN CORPUSCULAR HEMOGLOBIN (BEAKER) (test code = 751) 29.6 pg 25.6-32.2 MEAN CORPUSCULAR HEMOGLOBIN CONC (BEAKER) (test code = 752) 31.0 GM/DL 32.2-35.5 L RED CELL DISTRIBUTION WIDTH (BEAKER) (test code = 412) 13.9 % 11.7-14.4 PLATELET COUNT (BEAKER) (test code = 756) 159 K/CU MM 150-450 MEAN PLATELET VOLUME (BEAKER) (test code = 754) 12.2 fL 9.4-12 .3 NUCLEATED RED BLOOD CELLS (BEAKER) (test code = 413) 0 /100 WBC 0 -0 NEUTROPHILS RELATIVE PERCENT (BEAKER) (test code = 429) 70 % LYMPHOCYTES RELATIVE PERCENT (BEAKER) (test code = 430) 17 % MONOCYTES RELATIVE PERCENT (BEAKER) (test code = 431) 10 % EOSINOPHILS RELATIVE PERCENT (BEAKER) (test code = 432) 2 % BASOPHILS RELATIVE PERCENT (BEAKER) (test code = 437) 0 % NEUTROPHILS ABSOLUTE COUNT (BEAKER) (test code = 670) 4.41 K/ L 1.56-6.13 LYMPHOCYTES ABSOLUTE COUNT (BEAKER) (test code = 414) 1.04 K/ L 1.18-3.74 L MONOCYTES ABSOLUTE COUNT (BEAKER) (test code = 415) 0.65 K/ L 0. 24-0.36 H EOSINOPHILS ABSOLUTE COUNT (BEAKER) (test code = 416) 0.15 K/ L 0.04-0.36 BASOPHILS ABSOLUTE COUNT (BEAKER) (test code = 417) 0.02 K/ L 0. 01-0.08 IMMATURE GRANULOCYTES-RELATIVE PERCENT (BEAKER) (test code = 2801) 0 % 0-1 POCT-GLUCOSE [id number] 22:57:00* Test Item Value Reference Range Interpretation Comments POC-GLUCOSE METER (BEAKER) (test code = 1538) 92 mg/dL 70-110 : TESTED AT [address], [address]: Director Of Collections And Archives/Residential Advisor ID = [id number] for LORENA CAMPBELL RAD, CHEST, PA OR AP, 1 [id number] 18:02:00Reason for exam:->chest painShould this be performed at the bedside?->YesFINAL REPORT Chest, one view. HISTORY: chest pain COMPARISON: Radiograph from 08/14/2019 IMPRESSION: There are bilateral diffuse alveolar opacities which are most likely due to pulmonary edema. Infection is possible but considered less likely. Trace left pleural effusion. No pneumothorax. The cardiac silhouette is normal in size. No acute bony abnormality. Signed: Darryl Liao Verified Date/Time: 09/05/2019 18:02:16 Reading Location: [address] Consult Reading Room chest PA or AP 1 view in [id number] 18:02:00Interface, External Ris In - 09/05/2019 6:04 PM CSTFINAL REPORT Chest, one view. HISTORY: chest pain COMPARISON: Radiograph from 08/14/2019 IMPRESSION: There are bilateral diffuse alveolar opacities which are most likely due to pulmonary edema. Infection is possible but considered less likely. Trace left pleural effusion. No pneumothorax. The cardiac silhouette is normal in size. No acute bony abnormality. Signed: Darryl Liao Verified Date/Time: 09/05/2019 18:02:16 Reading Location: [address] Consult Reading Room [facility], WITHOUT [id number] 18:01:00Reason for exam:->amsWhat is the patient's sedation requirement?->No SedationFINAL REPORT CT, BRAIN, WITHOUT CONTRAST INDICATION: amsfall TECHNIQUE: Noncontrast axial imaging was obtained from [...] examination is recommended for further characterization. Signed: Ping Louisort Verified Date/Time: 09/05/2019 18:01:01 brain without IV [id number] 18:01:00Interface, External Ris In - 09/05/2019 6:[address], BRAIN, WITHOUT CONTRAST INDICATION: amsfall TECHNIQUE: Noncontrast axial imaging was obtained from the vertex to the skull base. Axial images were reconstructed using a bone algorithm. DOSE REDUCTION: Dose modulation, iterative reconstruction, and/or weight-based adjustment of the mA/kV was utilized to redu ce the radiation dose to as low as reasonably achievable. COMPARISON: CT 019 FINDINGS: Intracranial: Generalized cerebral atrophy with ex vacuo dilatatio n of the ventricular system proportionate to sulci. No intracranial hemorrhage o r abnormal extra-axial collection. No evidence of acute territorial infarct. No mass effect. No hydrocephalus. Osseous structures: No fracture. Scalp hematoma o verlying the left zygomatic arch. Paranasal sinuses and mastoid air cells: No ev idence of sinusitis. Mastoids are clear. Orbital contents: Globes are intact. IM PRESSION: Scalp hematoma overlying the left zygomatic arch. No underlying fractu re or acute intracranial hemorrhage. If there is persistent clinical concern for intracranial pathology, MR examination is recommended for further characterizat ion. Signed: Ping Louiseport Verified Date/Time: 09/05/2019 18:01:01 [facility] HospitalUrinalysis w/Microscopic + Reflex to [id number] 17:52:00* Test Item Value Reference Range Interpretation Comments Color, UA (test code = 5778-6) Yellow Clarity, UA (test code = 5767-9) Cloudy Specific [place], UA (test code = 5811-5) 1.011 1.001-1.035 pH, UA (test code = 5803-2) 6.0 5.0-8.0 Protein, UA (test code = 63606-2) 200 mg/dL Negative A Glucose, UA (test code = 365) Negative Negative Ketones, UA (test code = 2514-8) Negative Negative Bilirubin, UA (test code = 52715-4) Negative Negative Blood, UA (test code = 80468-2) Small Negative A Nitrite, UA (test code = 5802-4) Negative Negative Leukocytes, UA (test code = 5799-2) Large Negative A Urobilinogen, UA (test code = 11146-2) 0.2 mg/dL 0.2-1 RBC, UA (test code = 65173-5) 14 /HPF WBC, UA (test code = 5821-4) 986 /HPF Bacteria, UA (test code = 53246-4) Many Squam Epithel, UA (test code = 90275-4) 13 /HPF Casts (test code = 9842-6) 108 /LPF Yeast (test code = 95969-3) Few Specimen Source (test code = 2795) GABBY (test code = GABBY) Director Of Collections And Archives ID - [auto]Director Of Collections And Archives ID - tech Lab Interpretation (test code = 42027-3) Abnormal [facility]/ REFLEX URINE [id number] 17:52:00* Test Item Value Reference Range Interpretation Comments COLOR (BEAKER) (test code = 470) Yellow CLARITY (BEAKER) (test code = 469) Cloudy SPECIFIC GRAVITY UA (BEAKER) (test code = 468) 1.011 1.001-1 .035 PH UA (BEAKER) (test code = 467) 6.0 5.0-8.0 PROTEIN UA (BEAKER) (test code = 464) 200 mg/dL Negative A GLUCOSE UA (BEAKER) (test code = 365) Negative Negative KETONES UA (BEAKER) (test code = 371) Negative Negative BILIRUBIN UA (BEAKER) (test code = 462) Negative Negative BLOOD UA (BEAKER) (test code = 461) Small Negative A NITRITE UA (BEAKER) (test code = 465) Negative Negative LEUKOCYTE ESTERASE UA (BEAKER) (test code = 466) Large Negat jinny A UROBILINOGEN UA (BEAKER) (test code = 463) 0.2 mg/dL 0.2-1.0 RBC UA (BEAKER) (test code = 519) 14 /HPF WBC UA (BEAKER) (test code = 520) 986 /HPF BACTERIA (BEAKER) (test code = 517) Many SQUAMOUS EPITHELIAL (BEAKER) (test code = 516) 13 /HPF CASTS (BEAKER) (test code = 1579) 108 /LPF YEAST (BEAKER) (test code = 1585) Few SOURCE(BEAKER) (test code = 2795) Director Of Collections And Archives ID - [auto]Director Of Collections And Archives ID - techCRITICAL [id number] 17:05:15OfRhona jasmine MD 09/07/2019 10:41 PMCritical CarePerformed by: Rhona Silver MDAuthorized by: Rah Boyd MD Total critical care time: 35 minutesCritical care time was exclusive of separately billable procedures and treating other patients.Critical care was necessary to treat or prevent imminent or life-threatening deterioration of the following conditions: renal failure and sepsis.Critical care was time spent personally by me on the following activities: development of treatment plan with patient or surrogate, discussions with consultants, evaluation of patient's response to treatment, e xamination of patient, obtaining history from patient or surrogate, ordering and performing treatments and interventions, ordering and review of laboratory stud ies, ordering and review of radiographic studies, pulse oximetry, re-evaluation of patient's condition and review of old charts. [facility] BASIC METABOLIC [id number] 16:05:00* Test Item Value Reference Range Interpretation Comments SODIUM (BEAKER) (test code = 381) 130 meq/L 136-145 L POTASSIUM (BEAKER) (test code = 379) 5.3 meq/L 3.5-5.1 H Specimen slightly hemolyzed CHLORIDE (BEAKER) (test code = 382) 97 meq/L 98-107 L CO2 (BEAKER) (test code = 355) 23 meq/L 22-29 BLOOD UREA NITROGEN (BEAKER) (test code = 354) 41 mg/dL 7-21 H CREATININE (BEAKER) (test code = 358) 8.22 mg/dL 0.57-1.25 H Specimen slightly hemolyzed GLUCOSE RANDOM (BEAKER) (test code = 652) 109 mg/dL 70-105 H CALCIUM (BEAKER) (test code = 697) 10.0 mg/dL 8.4-10.2 EGFR (BEAKER) (test code = 1092) 6 mL/min/1.73 sq m ESTIMATED GFR IS NOT ACCURATE CREATININE CLEARANCE IN PREDICTING GLOMERULAR FILTRATION RATE. ESTIMATED GFR IS NOT APPLICABLE FOR DIALYSIS PATIENTS. Director Of Collections And Archives ID Alfredo MIRANDAROPONIN [id number] 16:05:00* Test Item Value Reference Range Interpretation Comments TROPONIN I (BEAKER) (test code = 397) 0.13 ng/mL 0.00-0.03 H Troponin I (TnI) levels must be interpreted in the context of the presenting sym ptoms and the clinical findings. Elevated TnI levels indicate myocardial damage, but are not specific for ischemic heart disease. Elevated TnI levels are seen i n patients with other cardiac conditions (including myocarditis and congestive h eart failure), and slight TnI elevations occur in patients with other conditions , including sepsis, renal failure, acidosis, acute neurological disease, and per sistent tachyarrhythmia.Director Of Collections And Archives ID Alfredo WALLS [id number] 16:04:00* Test Item Value Reference Range Interpretation Comments Amylase (test code = 1798-8) 34 U/L 25-125 Specimen slightly hemolyzed GABBY (test code = GABBY) Director Of Collections And Archives ID Alfredo Conway Lab Interpretation (test code = 03370-7) Normal [facility] HospitalLipase2020-02-[facility] 16:04:00* Test Item Value Reference Range Interpretation Comments Lipase (test code = 3040-3) 23 U/L 8-78 GABBY (test code = GABBY) Director Of Collections And Archives ID Alfredo Conway Lab Interpretation (test code = 78975-1) Normal [facility] HospitalLIPASE2020-02-21 16:04:00* Test Item Value Reference Range Interpretation Comments LIPASE (BEAKER) (test code = 749) 23 U/L 8-78 Director Of Collections And Archives ID - KAVITA [id number] 16:04:00* Test Item Value Reference Range Interpretation Comments AMYLASE (BEAKER) (test code = 349) 34 U/L 25-125 Specimen slightly hemolyzed Director Of Collections And Archives ID - KAVITA WHEPATIC FUNCTION [id number] 16:04:00* Test Item Value Reference Range Interpretation Comments TOTAL PROTEIN (BEAKER) (test code = 770) 7.5 gm/dL 6.0-8.3 Specimen slightly hemolyzed ALBUMIN (BEAKER) (test code = 1145) 3.1 g/dL 3.5-5.0 L Specimen slightly hemolyzed BILIRUBIN TOTAL (BEAKER) (test code = 377) 0.3 mg/dL 0.2-1.2 Specimen slightly hemolyzed BILIRUBIN DIRECT (BEAKER) (test code = 706) 0.1 mg/dL 0.1-0.5 Specimen slightly hemolyzed ALKALINE PHOSPHATASE (BEAKER) (test code = 346) 102 U/L 40-150 AST (SGOT) (BEAKER) (test code = 353) 20 U/L 5-34 Specimen slightly hemolyzed ALT (SGPT) (BEAKER) (test code = 347) 10 U/L 6-55 Specimen slightly hemolyzed Director Of Collections And Archives ID - KAVITA WPT/[id number] 15:51:00* Test Item Value Reference Range Interpretation Comments PROTIME (BEAKER) (test code = 759) 13.6 seconds 11.9-14.2 INR (BEAKER) (test code = 370) 1.1 <=5.9 PARTIAL THROMBOPLASTIN TIME (BEAKER) (test code = 760) 29.7 seconds 22.5-36.0 Effective 12/11/2018: PT Reference Range ChangeNew: 11.9-14.2 Previous: 11.7-14. 7RECOMMENDED COUMADIN/WARFARIN INR THERAPY RANGESSTANDARD DOSE: 2.0-3.0 Include s: PROPHYLAXIS for venous thrombosis, systemic embolization; TREATMENT for venou s thrombosis and/or pulmonary embolus.HIGH RISK: Target INR is 2.5-3.5 for patie nts wiht mechanical heart valves.CBC W/PLT COUNT & AUTO [id number] 15:39:00* Test Item Value Reference Range Interpretation Comments WHITE BLOOD CELL COUNT (BEAKER) (test code = 775) 6.8 K/ L 3.5- 10.5 RED BLOOD CELL COUNT (BEAKER) (test code = 761) 3.20 M/ L 3.93-5 .22 L HEMOGLOBIN (BEAKER) (test code = 410) 9.4 GM/DL 11.2-15.7 L HEMATOCRIT (BEAKER) (test code = 411) 30.9 % 34.1-44.9 L MEAN CORPUSCULAR VOLUME (BEAKER) (test code = 753) 96.6 fL 79. 4-94.8 H MEAN CORPUSCULAR HEMOGLOBIN (BEAKER) (test code = 751) 29.4 pg 25.6-32.2 MEAN CORPUSCULAR HEMOGLOBIN CONC (BEAKER) (test code = 752) 30.4 GM/DL 32.2-35.5 L RED CELL DISTRIBUTION WIDTH (BEAKER) (test code = 412) 14.0 % 11.7-14.4 PLATELET COUNT (BEAKER) (test code = 756) 159 K/CU MM 150-450 MEAN PLATELET VOLUME (BEAKER) (test code = 754) 11.4 fL 9.4-12 .3 NUCLEATED RED BLOOD CELLS (BEAKER) (test code = 413) 0 /100 WBC 0 -0 NEUTROPHILS RELATIVE PERCENT (BEAKER) (test code = 429) 67 % LYMPHOCYTES RELATIVE PERCENT (BEAKER) (test code = 430) 17 % MONOCYTES RELATIVE PERCENT (BEAKER) (test code = 431) 15 % EOSINOPHILS RELATIVE PERCENT (BEAKER) (test code = 432) 2 % BASOPHILS RELATIVE PERCENT (BEAKER) (test code = 437) 0 % NEUTROPHILS ABSOLUTE COUNT (BEAKER) (test code = 670) 4.55 K/ L 1.56-6.13 LYMPHOCYTES ABSOLUTE COUNT (BEAKER) (test code = 414) 1.17 K/ L 1.18-3.74 L MONOCYTES ABSOLUTE COUNT (BEAKER) (test code = 415) 0.99 K/ L 0. 24-0.36 H EOSINOPHILS ABSOLUTE COUNT (BEAKER) (test code = 416) 0.11 K/ L 0.04-0.36 BASOPHILS ABSOLUTE COUNT (BEAKER) (test code = 417) 0.01 K/ L 0. 01-0.08 IMMATURE GRANULOCYTES-RELATIVE PERCENT (BEAKER) (test code = 2801) 0 % 0-1 Arterial Blood [id number] 14:08:00* Test Item Value Reference Range Interpretation Comments Arterial Blood pH (test code = 2744-1) 7.31 7.31-7.41 [facility] 2019-09-04 14:08:00* Test Item Value Reference Range Interpretation Comments Arterial Blood Partial Pressure CO2 (test code = 2018-) 63 41-51 [facility] 2019-09-04 14:08:00* Test Item Value Reference Range Interpretation Comments Arterial Blood Partial Pressure O2 (test code = 2019-02) 44 80-105 LL Results called/hand delivered to [] at 1402 on 09/04/19 by Larry Alvarenga RB [place] .[facility] [id number] 14:08:00* Test Item Value Reference Range Interpretation Comments Arterial Blood HCO3 (test code = 1960-4) 31 23-28 [facility] Base [id number] 14:08:00* Test Item Value Reference Range Interpretation Comments Arterial Blood Base Excess (test code = 1925-7) 5.0 -2-3 H [facility] CenterArterial Blood Oxygen Saturation 2019-09-04 14:08:00* Test Item Value Reference Range Interpretation Comments Arterial Blood Oxygen Saturation (test code = 2708-6) 74.0 95-98 L [facility] CenterFiO22020-02-20 14:08:00* Test Item Value Reference Range Interpretation Comments FiO2 (test code = FiO2) 32 2L N/C, RIGHT RADIAL, VENOUS BLOOD [facility] Arterial Blood [id number] 14:08:00* Test Item Value Reference Range Interpretation Comments Arterial Blood pH (test code = 2744-1) 7.31 7.31-7.41 [facility]Ar[facility] Blood Partial Pressure CO2 2019-09-04 14:08:00* Test Item Value Reference Range Interpretation Comments Arterial Blood Partial Pressure CO2 (test code = 2018-8) 63 41-51 H [facility] CenterArterial Blood Partial Pressure O2 2019-09-04 14:08:00* Test Item Value Reference Range Interpretation Comments Arterial Blood Partial Pressure O2 (test code = 2019-8) 44 80-105 LL Results called/hand delivered to [] at 1402 on 09/04/19 by Larry Alvarenga RB [place] .[facility] CenterArterial Blood [id number] 14:08:00* Test Item Value Reference Range Interpretation Comments Arterial Blood HCO3 (test code = 1960-4) 31 23-28 H [facility] CenterArterial Blood Base Jyhghk2554-09-56 14:08:00* Test Item Value Reference Range Interpretation Comments Arterial Blood Base Excess (test code = 1925-7) 5.0 -2-3 H [facility] CenterArterial Blood Oxygen Saturation 2019-09-04 14:08:00* Test Item Value Reference Range Interpretation Comments Arterial Blood Oxygen Saturation (test code = 2708-6) 74.0 95-98 L [facility] CenterFiO22020-02-20 14:08:00* Test Item Value Reference Range Interpretation Comments FiO2 (test code = FiO2) 32 2L N/C, RIGHT RADIAL, VENOUS BLOOD [facility] Creatine Kinase OS9465-07-73 13:44:00* Test Item Value Reference Range Interpretation Comments Creatine Kinase MB (test code = 40155-9) 16.80 0-5.0 H [facility] CenterTroponin Z9379-97-31 13:44:00* Test Item Value Reference Range Interpretation Comments Troponin I (test code = FYF2105) 0.091 0-0.300 [facility]odium Kixtg0790-69-76 13:29:00* Test Item Value Reference Range Interpretation Comments Sodium Level (test code = 2951-2) 131 136-145 L [facility] CenterPotassium Uksor7154-26-06 13:29:00* Test Item Value Reference Range Interpretation Comments Potassium Level (test code = 2823-3) 4.2 3.5-5.1 [facility] CenterChloride Sjpir8276-18-36 13:29:00* Test Item Value Reference Range Interpretation Comments Chloride Level (test code = 2075-0) 95 98-107 L [facility] CenterCarbon Dioxide Ufcll8610-35-25 13:29:00* Test Item Value Reference Range Interpretation Comments Carbon Dioxide Level (test code = 2028-9) 24 22-29 [facility] CenterAnion Wug1998-29-79 13:29:00* Test Item Value Reference Range Interpretation Comments Anion Gap (test code = 16884-1) 16.2 8-16 H [facility] CenterBlood Urea Nteuqqyk1441-17-81 13:29:00* Test Item Value Reference Range Interpretation Comments Blood Urea Nitrogen (test code = 3094-0) 31 7-26 H [facility] CenterCreatinine2020-02-20 13:29:00* Test Item Value Reference Range Interpretation Comments Creatinine (test code = 2160-0) 6.86 0.57-1.11 H [facility] CenterBUN/Creatinine Tkscr2047-03-23 13:29:00* Test Item Value Reference Range Interpretation Comments BUN/Creatinine Ratio (test code = 3097-3) 5 6-25 L [facility] CenterEstimat Glomerular Filtration Rate 2019-09-04 13:29:00* Test Item Value Reference Range Interpretation Comments Estimat Glomerular Filtration Rate (test code = 031231878) 7 >60 L Ranges were taken from the National Kidney Disease Education Program and the [facility] Foundation literature.Reference ranges:60 or greater: Fksvqd10-84 ( for 3 consecutive months): Chronic kidney disease 15 or less: Kidney failureKnapp Medical CenterGlucose Xrdvw9005-19-95 13:29:00* Test Item Value Reference Range Interpretation Comments Glucose Level (test code = XUJ2531) 157 74-118 H [facility] CenterCalcium Qakrp8300-64-50 13:29:00* Test Item Value Reference Range Interpretation Comments Calcium Level (test code = 05207-0) 10.6 8.4-10.2 H [facility] CenterTotal Tpyjlglmg6307-03-66 13:29:00* Test Item Value Reference Range Interpretation Comments Total Bilirubin (test code = 1975-2) 0.3 0.2-1.2 [facility] CenterAspartate Amino Transf (AST/SGOT) 2019-09-04 13:29:00* Test Item Value Reference Range Interpretation Comments Aspartate Amino Transf (AST/SGOT) (test code = Aspartate Amino Transf (AST/SGOT)) 17 5-34 [facility] CenterAlanine Aminotransferase (ALT/SGPT) 2019-09-04 13:29:00* Test Item Value Reference Range Interpretation Comments Alanine Aminotransferase (ALT/SGPT) (test code = 1742-6) 9 0-55 [facility] CenterTotal Zztxjuc2107-61-25 13:29:00* Test Item Value Reference Range Interpretation Comments Total Protein (test code = 2885-2) 7.9 6.5-8.1 [facility] CenterAlbumin2020-02-20 13:29:00* Test Item Value Reference Range Interpretation Comments Albumin (test code = 1751-7) 2.9 3.5-5.0 L [facility] CenterGlobulin2020-02-20 13:29:00* Test Item Value Reference Range Interpretation Comments Globulin (test code = 02663-3) 5.0 2.3-3.5 H [facility] CenterAlbumin/Globulin Adwpe6286-16-80 13:29:00 * Test Item Value Reference Range Interpretation Comments Albumin/Globulin Ratio (test code = 1759-0) 0.6 0.8-2.0 L [facility] CenterAlkaline Kmoqmwqhtiv3375-55-23 13:29:00* Test Item Value Reference Range Interpretation Comments Alkaline Phosphatase (test code = 6768-6) 106 40-150 [facility] CenterCreatine Zjiwyw6193-10-85 13:29:00* Test Item Value Reference Range Interpretation Comments Creatine Kinase (test code = 2157-6) 337 29-168 H [facility] CenterProthrombin Zzcz3431-55-35 13:18:00* Test Item Value Reference Range Interpretation Comments Prothrombin Time (test code = 5902-2) 13.6 11.9-14.5 [facility] CenterProthromb Time International Ratio 2019-09-04 13:18:00* Test Item Value Reference Range Interpretation Comments Prothromb Time International Ratio (test code = 6301-6) 0.98 Oral Anticoagulant Therapy INR Values:1. Low Intensity Therapy 1.5 - 2.02 . Moderate Intensity Therapy 2.0 - 3.03. High Intensity Therapy(1) 2.5 - 3. 54. High Intensity Therapy(2) 3.0 - 4.05. Panic Value INR > 5.0 [facility] CenterActivated Partial Thromboplast Time 2019-09-04 13:18:00* Test Item Value Reference Range Interpretation Comments Activated Partial Thromboplast Time (test code = 38300-4) 33.7 23.8-35.5 [facility] CenterCT LUMBAR SPINE QP3179-78-20 13:02:00 [place] [address] Patient Name: ANGELA JEFFERS MR #: [id number] : 1945 Age/Sex: 74/F Req #: [id number] Adm Physician: Ordered by: KODY COLE NP Report #: [id number] Location: ER Room/Bed: Procedure: [id number] CT/CT LUMBAR SPINE WO Exam Date: 09/04/19 Exam Time: 1130 REPORT STATUS: Signed CT L UMBAR SPINE WO HISTORY: Fall COMPARISON: CT of the abdomen/pelvis 08/24 TECHNIQUE: Axial CT images of the lumbar spine were obtained witho ut contrast. Coronal and sagittal reconstructions obtained from the axial rina a. One or more of the following dose reduction techniques were used: Automate d exposure control, adjustment of the mA and/or kV according to patient size, and/or utilization of iterative reconstruction technique. DISCUSSION: B one demineralization limits evaluation. There are 5 nonrib-bearing lumbar vert ebral bodies. Lumbar lordosis is preserved. There is no significant scoliosi s or subluxation. No definite acute fracture or compression deformity is seen. is seen. No gross spinal canal mass is seen. The paravertebral and paraspin al soft tissues are unremarkable. Mild to moderate multilevel spondylotic c hanges are present. Mild to moderate bilateral sacroiliac degenerative changes are present as well. L1-L2: No gross canal or foraminal stenosis. L2- L3: Moderate left foraminal stenosis due to disc bulge and facet arthrosis. No gross canal or right foraminal stenosis. L3-L4: At least mild to moderate canal stenosis due to disc bulge and ligamentum flavum thickening. Mild to mod erate bilateral foraminal stenoses due to disc bulge and facet arthrosis. L4-L5: Mild to moderate bilateral foraminal stenoses due to disc bulge and fa cet arthrosis. No gross canal stenosis. Facet arthrosis is advanced. L5-S1: Mild to moderate bilateral foraminal stenoses due to disc bulge and facet art hrosis. No gross canal stenosis. Facet arthrosis is advanced. Diffuse aorto iliac calcified atherosclerosis is present. Partially imaged round hypodense l esion in the right kidney may be a cyst. IMPRESSION: 1. No acute osseou s abnormalities. 2. Mild to moderate multilevel spondylosis. 3. At least m ild to moderate degenerative canal stenosis at L3-L4. 4. Mild to moderate mul tilevel bilateral degenerative foraminal stenoses as described above. Sig davonte by: Dr. Sandy Gomez M.D. on 09/04/2019 1:08 PM Dictated By: SANDY GOMEZ MD 1302 T ranscribed By: ARIEL on 09/04/19 1308 COPY TO: KODY COLE BRASS MOLDER White Blood Bjzub7343-35-42 12:58:00* Test Item Value Reference Range Interpretation Comments White Blood Count (test code = 6690-2) 7.82 4.8-10.8 [facility] CenterRed Blood Bsmuj6116-04-68 12:58:00* Test Item Value Reference Range Interpretation Comments Red Blood Count (test code = 789-8) 3.28 3.6-5.1 L [facility] CenterHemoglobin2020-02-20 12:58:00* Test Item Value Reference Range Interpretation Comments Hemoglobin (test code = 64405-7) 9.4 12.0-16.0 L [facility] CenterHematocrit2020-02-20 12:58:00* Test Item Value Reference Range Interpretation Comments Hematocrit (test code = 4544-3) 31.6 34.2-44.1 L [facility] CenterMean Corpuscular Mpcgnu5144-25-53 12:58:00* Test Item Value Reference Range Interpretation Comments Mean Corpuscular Volume (test code = 787-2) 96.3 81-99 [facility] CenterMean Corpuscular Nbnvmgwnms3745-03-29 12:58:00* Test Item Value Reference Range Interpretation Comments Mean Corpuscular Hemoglobin (test code = 785-6) 28.7 28-32 [facility] CenterMean Corpuscular Hemoglobin Concent 2019-09-04 12:58:00* Test Item Value Reference Range Interpretation Comments Mean Corpuscular Hemoglobin Concent (test code = 786-4) 29.7 31-35 L [facility] CenterRed Cell Distribution Apgpr6462-06-41 12:58:00* Test Item Value Reference Range Interpretation Comments Red Cell Distribution Width (test code = 17479-4) 13.9 11.7 -14.4 [facility] CenterPlatelet Zonps1365-97-46 12:58:00* Test Item Value Reference Range Interpretation Comments Platelet Count (test code = 777-3) 181 140-360 [facility] CenterNeutrophils (%) (Auto)2019-09-04 12:58:00 * Test Item Value Reference Range Interpretation Comments Neutrophils (%) (Auto) (test code = 17052-2) 75.3 38.7-80.0 [facility] CenterLymphocytes (%) (Auto)2019-09-04 12:58:00 * Test Item Value Reference Range Interpretation Comments Lymphocytes (%) (Auto) (test code = 736-9) 12.4 18.0-39.1 L [facility] CenterMonocytes (%) (Auto)2019-09-04 12:58:00* Test Item Value Reference Range Interpretation Comments Monocytes (%) (Auto) (test code = 5905-5) 10.7 4.4-11.3 [facility] CenterEosinophils (%) (Auto)2019-09-04 12:58:00 * Test Item Value Reference Range Interpretation Comments Eosinophils (%) (Auto) (test code = 713-8) 1.2 0.0-6.0 [facility] CenterBasophils (%) (Auto)2019-09-04 12:58:00* Test Item Value Reference Range Interpretation Comments Basophils (%) (Auto) (test code = 706-2) 0.3 0.0-1.0 [facility] CenterIM GRANULOCYTES %2019-09-04 12:58:00* Test Item Value Reference Range Interpretation Comments IM GRANULOCYTES % (test code = IM GRANULOCYTES %) 0.1 0.0- 1.0 [facility] CenterNeutrophils # (Auto)2019-09-04 12:58:00* Test Item Value Reference Range Interpretation Comments Neutrophils # (Auto) (test code = 751-8) 5.9 2.1-6.9 [facility] CenterLymphocytes # (Auto)2019-09-04 12:58:00* Test Item Value Reference Range Interpretation Comments Lymphocytes # (Auto) (test code = 47711-5) 1.0 1.0-3.2 [facility] CenterMonocytes # (Auto)2019-09-04 12:58:00* Test Item Value Reference Range Interpretation Comments Monocytes # (Auto) (test code = 742-7) 0.8 0.2-0.8 [facility] CenterEosinophils # (Auto)2019-09-04 12:58:00* Test Item Value Reference Range Interpretation Comments Eosinophils # (Auto) (test code = 711-2) 0.1 0.0-0.4 [facility] CenterBasophils # (Auto)2019-09-04 12:58:00* Test Item Value Reference Range Interpretation Comments Basophils # (Auto) (test code = 704-7) 0.0 0.0-0.1 [facility] CenterAbsolute Immature Granulocyte (auto 2019-09-04 12:58:00* Test Item Value Reference Range Interpretation Comments Absolute Immature Granulocyte (auto (toby t code = Absolute Immature Granulocyte (auto) 0.01 0-0.1 [facility] CenterCT MAXIO FAC/PARANAS PW6857-71-04 12:58:00 [facility] [address] [place] [address] Patient Name: ANGELA JEFFERS MR #: [id number] : 1945 Age/Sex: 74/F Req #: [id number] Adm Physician: Ordered by: KODY ALEMAN DO Report #: [id number] Location: ER Room/Bed: Procedure: [id number] CT/ CT MAXIO FAC/PARANAS WO Exam Date: 09/04/19 Exam Willie e: 1200 REPORT STATUS: Signed CT MAXIO FAC/PARANAS WO HISTORY: Fall COMPARISON: Concurrent head and c ervical spine CT TECHNIQUE: Axial CT images through the face were obtaine d without contrast. Coronal/sagittal reformations were created. One or more o f the following dose reduction techniques were used: Automated exposure contro l, adjustment of the mA and/or kV according to patient size, and/or utilizatio n of iterative reconstruction technique. DISCUSSION: Small superficial/ subcutaneous left zygomatic hematoma is present. No acute fracture is seen. No destructive osseous lesions are seen. The orbits are intact. Intraorbit al contents are grossly unremarkable. Mild left sphenoid sinus mucosal thic kening is present. IMPRESSION: 1. No acute osseous abnormalities in t he face. 2. Small superficial left zygomatic hematoma. Signed by: Dr. Nancy M.D. on 09/04/2019 1:01 PM Dictated By: SANDY GOMEZ MD 130 Transcribed By: ARIEL on 09/04/19 1301 COPY TO: KODY ALEMAN DO CT CERVICAL SPINE PZ6663-11-73 12:55:00 [place] [address] Patient Name: ANGELA JEFFERS MR #: [id number] : 1945 Age/Sex: 74/F Req #: [id number] Adm Physician: Ordered by: KODY COLE BRASS MOLDER Report #: [id number] Location: ER Room/Bed: Procedure: [id number] CT/CT CERVICAL SPINE WO Exam Date: 09/04/19 Exam Willie e: 1130 REPORT STATUS: Signed CT CERVICAL SPINE WO HISTORY: Fall COMPARISON: Concurrent head CT TECHNIQUE: CT of the cervical spine without contrast. Sagittal and coronal re formations were created. One or more of the following dose reduction techniqu es were used: Automated exposure control, adjustment of the mA and/or kV accor ding to patient size, and/or utilization of iterative reconstruction technique . FINDINGS: Mild bone demineralization limits evaluation. Cervical lo rdosis is preserved. There is no scoliosis or subluxation. No definite acute fracture or compression deformity is seen. The craniocervical junction is i ntact. No gross spinal canal masses are seen. The paravertebral and parasp inal soft tissues are unremarkable. Mild multilevel spondylotic changes ar e associated with multilevel bilateral facet arthrosis. Thyroidectomy ch anges are present. Prominent bilateral carotid bulb calcified plaque is presen t. IMPRESSION: No acute osseous abnormalities. Mild multilevel spondylo sis with bilateral facet arthrosis. Signed by: Cami Singh 09/04/2019 12:57 PM Dictated By: SANDY GOMEZ MD Electronically Sig davonte By: SANDY GOMEZ MD on 09/04/19 1257 Transcribed By: ARIEL on 0 1257 COPY TO: KODY COLE NP CT BRAIN [id number] 12:51:00 [place] [address] Patient Name: ANGELA JEFFERS MR #: [id number] : 1945 Age/Sex: 74/F Req #: [id number] Adm Physician: Ordered by: KODY COLE BRASS MOLDER Report #: [id number] Location: ER Room/Bed: Procedure: [id number] CT/CT BRAIN WO Exam Date: 09/04/19 Exam Time: 1130 REPORT STATUS: Signed CT BRAIN WO HISTORY: Fall COMPARISON: None. Technique: Noncontrast axial scans were obtained from skull base to the vertex. Coronal and sagittal ladi nstructions obtained from the axial data. One or more of the following dose r eduction techniques were used: Automated exposure control, adjustment of the m A and/or kV according to patient size, and/or utilization of iterative reconst ruction technique. DISCUSSION: Scalp/Skull: Left frontal and left zygo matic scalp hematomas are present. No calvarial fracture is seen. Brain sulc i: Mildly prominent. Ventricles: Compensatory dilatation. Extra-axial spaces : No masses or fluid collections. Carotid and vertebral artery calcifications are present. Parenchyma: Mild bilateral deep white matter hypodensity is likely chronic microvascular ischemic change. Otherwise, no masses, hemorr mu, or large vascular territory acute infarct. Dural sinuses: No abnorma l densities. Sellar/Suprasellar region: Intact. Skull base: Intact. Incide ntal findings: None. IMPRESSION: 1. No acute intracranial abnormalities. 2. Mild supratentorial chronic microvascular ischemic change. Mild generaliz ed cerebral volume loss. Signed by: Dr. Sandy Gomez M.D. on 020 12:54 PM Dictated By: SANDY GOMEZ MD 125 Transcribed By: ARIEL on 09/04/19 1254 COPY TO: KODY COLE BRASS MOLDER Bedside Izqdhzz2814-34-16 12:46:00* Test Item Value Reference Range Interpretation Comments Bedside Glucose (test code = 29632-5) 164 70-120 H Meter ID: [id number] [facility] CenterBed[facility] Glucose 2019-09-04 12:46:00* Test Item Value Reference Range Interpretation Comments Bedside Glucose (test code = 01864-1) 164 70-120 H Meter ID: [id number] [facility] CenterCT PELVIS WO 2019-09-04 12:37:00 [place] [address] Patient Name: ANGELA JEFFERS MR #: [id number] : 1945 Age/Sex: 74/F Req #: [id number] Adm Physician: Ordered by: KODY COLE BRASS MOLDER Report #: [id number] Location: ER Room/Bed: Procedure: [id number] CT/CT PELVIS WO Exam Date: 09/04/19 Exam Time: 1130 REPORT STATUS: Signed Exam: CT p alexandre Clinical history: Status post fall Technique: Helical images of the pelvis were obtained without contrast DOSE REDUCTION: The exams was pe rformed according to the departmental dose-optimization program which includes automated exposure control, adjustment of the mA and/or kV according to patie nt size and/or use of iterative reconstruction technique. Findings: The s tudy is suboptimal secondary to being hardening artifact. There is no gross ev idence of acute fracture or malalignment of the visualized osseous structures. Degenerative joint disease is noted in bilateral hip joints with loss in join t space and subchondral cyst formation. Degenerative disc disease is also note d at L4-5 level with loss in disc height and vacuum phenomenon. A small f at-containing umbilical hernia is noted. Atherosclerotic calcification of the pelvic vessels are visualized. The visualized bowel loops appear within normal limits in size in caliber. Small amount of retained feces is seen in the sigm oid colon and rectum. Sigmoid diverticulosis is noted without evidence of acut e diverticulitis. Impression: 1. No CT evidence of acute osseous injury. Degenerative joint disease and degenerative disc disease is noted. 2. Sigmoi d diverticulosis without CT evidence of acute diverticulitis. Signed by: Dr Vern Reynoso MD on 09/04/2019 12:41 PM Dictated By: PETRA REYNOSO MD E lectronically Signed By: PETRA REYNOSO MD on 09/04/19 1241 Transcribed By: LIEN ALEMAN on 09/04/19 1241 COPY TO: KODY COLE NP Arterial blood pH cslaiiqbwtq3555-14-18 12:10:00* Test Item Value Reference Range Interpretation Comments Arterial Blood pH (test code = 2744-1) 7.31 7.31-7.41 [facility] CenterpCO2 LwbN4576-56-43 12:10:00* Test Item Value Reference Range Interpretation Comments Arterial Blood Partial Pressure CO2 (test code = 2019-8) 63 41-51 [facility] CenterpCO2 DorZ8193-95-08 12:10:00* Test Item Value Reference Range Interpretation Comments Arterial Blood Partial Pressure O2 (test code = 2019-8) 44 80-105 Results called/hand delivered to [] at 1402 on 09/04/19 by Larry Pastor. RB [place] .[facility] CenterArterial blood bicarbonate measurement (moles/volume)2019-09-04 12:10:00* Test Item Value Reference Range Interpretation Comments Arterial Blood HCO3 (test code = 1960-4) 31 23-28 [facility] CenterArterial blood base excess by calculation 2019-09-04 12:10:00* Test Item Value Reference Range Interpretation Comments Arterial Blood Base Excess (test code = 1925-7) 5.0 -2-3 [facility] CenterArterial blood oxygen saturation fxojbjsfpzp0153-59-27 12:10:00* Test Item Value Reference Range Interpretation Comments Arterial Blood Oxygen Saturation (test code = 2708-6) 74.0 95-98 [facility] CenterFluoroscopic procedure less than one hour lqbrfmnw3588-93-69 12:10:00* Test Item Value Reference Range Interpretation Comments FiO2 (test code = FiO2) 32 2L N/C, RIGHT RADIAL, VENOUS BLOOD [facility] Capillary blood glucose measurement by glucometer (mass/volume)2019-09-04 11:39:00* Test Item Value Reference Range Interpretation Comments Bedside Glucose (test code = 05611-7) 164 70-120 Meter ID: [id number] Medical CenterPOCT-GLUCOSE METER 2019-09-03 17:39:00* Test Item Value Reference Range Interpretation Comments POC-GLUCOSE METER (BEAKER) (test code = 1538) 171 mg/dL 70-110 H : TESTED AT [place] [id number] [facility], [address]: Director Of Collections And Archives/Residential Advisor ID = [id number] for Bianka Trevizo POCT-GLUCOSE [id number] 11:46:00* Test Item Value Reference Range Interpretation Comments POC-GLUCOSE METER (BEAKER) (test code = 1538) 154 mg/dL 70-110 H : TESTED AT [facility] [address] [facility], [address]: Director Of Collections And Archives/Residential Advisor ID = [id number] for Bianka Trevizo POCT-GLUCOSE [id number] 07:50:00* Test Item Value Reference Range Interpretation Comments POC-GLUCOSE METER (BEAKER) (test code = 1538) 148 mg/dL 70-110 H : TESTED AT [facility] [address] [facility], [address]: Director Of Collections And Archives/Residential Advisor ID = [id number] for Bianka Trevizo BASIC METABOLIC [id number] 07:11:00* Test Item Value Reference Range Interpretation Comments SODIUM (BEAKER) (test code = 381) 135 meq/L 136-145 L POTASSIUM (BEAKER) (test code = 379) 4.3 meq/L 3.5-5.1 CHLORIDE (BEAKER) (test code = 382) 97 meq/L 98-107 L CO2 (BEAKER) (test code = 355) 32 meq/L 22-29 H BLOOD UREA NITROGEN (BEAKER) (test code = 354) 21 mg/dL 7-21 CREATININE (BEAKER) (test code = 358) 5.33 mg/dL 0.57-1.25 H GLUCOSE RANDOM (BEAKER) (test code = 652) 141 mg/dL 70-105 H CALCIUM (BEAKER) (test code = 697) 9.7 mg/dL 8.4-10.2 EGFR (BEAKER) (test code = 1092) 10 mL/min/1.73 sq m ESTIMATED GFR IS NOT ACCURATE CREATININE CLEARANCE IN PREDICTING GLOMERULAR FILTRATION RATE. ESTIMATED GFR IS NOT APPLICABLE FOR DIALYSIS PATIENTS. Director Of Collections And Archives ID - CURT MPOCT-GLUCOSE [id number] 20:42:00* Test Item Value Reference Range Interpretation Comments POC-GLUCOSE METER (BEAKER) (test code = 1538) 164 mg/dL 70-110 H : TESTED AT [place] [id number] [facility], [address]: Director Of Collections And Archives/Residential Advisor ID = [id number] for [place] POCT-GLUCOSE [id number] 18:31:00* Test Item Value Reference Range Interpretation Comments POC-GLUCOSE METER (BEAKER) (test code = 1538) 148 mg/dL 70-110 H : TESTED AT [place] [id number] [facility], [address]: Director Of Collections And Archives/Residential Advisor ID = [id number] for EL TED POCT-GLUCOSE [id number] 18:24:00* Test Item Value Reference Range Interpretation Comments POC-GLUCOSE METER (BEAKER) (test code = 1538) 106 mg/dL 70-110 : TESTED AT [facility] [address] [facility], [address]: Director Of Collections And Archives/Residential Advisor ID = [id number] for TED GALLEGOS HEMODIALYSIS [id number] 17:42:00Kathia Blankenship RN 09/02/2019 5:43 PMLab Results Component Value Date HEPBSAG Nonreactive 08/14/2019 ]Lab Results Component Value Date GLUCOSE 124 (H) [...] AVF, noted good bruit and thrill, no problems noted. Patient stable but had an episode of BP dropping lower than parameters. Gave Mannitol 12.5 g x1. Patient stable post treatment. [facility] [id number] 13:46:00* Test Item Value Reference Range Interpretation Comments SODIUM (BEAKER) (test code = 381) 129 meq/L 136-145 L POTASSIUM (BEAKER) (test code = 379) 5.1 meq/L 3.5-5.1 CHLORIDE (BEAKER) (test code = 382) 92 meq/L 98-107 L CO2 (BEAKER) (test code = 355) 29 meq/L 22-29 BLOOD UREA NITROGEN (BEAKER) (test code = 354) 45 mg/dL 7-21 H CREATININE (BEAKER) (test code = 358) 9.20 mg/dL 0.57-1.25 H GLUCOSE RANDOM (BEAKER) (test code = 652) 124 mg/dL 70-105 H CALCIUM (BEAKER) (test code = 697) 9.9 mg/dL 8.4-10.2 EGFR (BEAKER) (test code = 1092) 5 mL/min/1.73 sq m ESTIMATED GFR IS NOT ACCURATE CREATININE CLEARANCE IN PREDICTING GLOMERULAR FILTRATION RATE. ESTIMATED GFR IS NOT APPLICABLE FOR DIALYSIS PATIENTS. Director Of Collections And Archives ID - CECE MPOCT-GLUCOSE [id number] 11:21:00* Test Item Value Reference Range Interpretation Comments POC-GLUCOSE METER (BEAKER) (test code = 1538) 114 mg/dL 70-110 H : TESTED AT [address], [address]: Director Of Collections And Archives/Residential Advisor ID = [id number] for GALLEGOS, TED POCT-GLUCOSE [id number] 00:25:00* Test Item Value Reference Range Interpretation Comments POC-GLUCOSE METER (BEAKER) (test code = 1538) 89 mg/dL 70-110 : TESTED AT [address], [address]: Director Of Collections And Archives/Residential Advisor ID = [id number] for LAURO GUTIERREZ POCT-GLUCOSE [id number] 23:29:00* Test Item Value Reference Range Interpretation Comments POC-GLUCOSE METER (BEAKER) (test code = 1538) 88 mg/dL 70-110 : TESTED AT [address], [address]: Director Of Collections And Archives/Residential Advisor ID = [id number] for GALLEGOS, TED POCT-GLUCOSE [id number] 23:28:00* Test Item Value Reference Range Interpretation Comments POC-GLUCOSE METER (BEAKER) (test code = 1538) 126 mg/dL 70-110 H : TESTED AT [address], [address]: Director Of Collections And Archives/Residential Advisor ID = [id number] for GALLEGOS, TED POCT-GLUCOSE [id number] 23:28:00* Test Item Value Reference Range Interpretation Comments POC-GLUCOSE METER (BEAKER) (test code = 1538) 92 mg/dL 70-110 : TESTED AT [address], [address]: Director Of Collections And Archives/Residential Advisor ID = [id number] for GALLEGOS, TED POCT-GLUCOSE [id number] 23:28:00* Test Item Value Reference Range Interpretation Comments POC-GLUCOSE METER (BEAKER) (test code = 1538) 120 mg/dL 70-110 H : TESTED AT [address], [address]: Director Of Collections And Archives/Residential Advisor ID = [id number] for CHEIKH SMITH POCT-GLUCOSE [id number] 21:53:00* Test Item Value Reference Range Interpretation Comments POC-GLUCOSE METER (BEAKER) (test code = 1538) 84 mg/dL 70-110 : TESTED AT [address], [address]: Director Of Collections And Archives/Residential Advisor ID = [id number] for GUTIERREZ, LAURO POCT-GLUCOSE [id number] 21:37:00* Test Item Value Reference Range Interpretation Comments POC-GLUCOSE METER (BEAKER) (test code = 1538) 51 mg/dL 70-110 L : TESTED AT [address], [address]: Director Of Collections And Archives/Residential Advisor ID = [id number] for GUTIERREZ, LAURO POCT-GLUCOSE [id number] 21:37:00* Test Item Value Reference Range Interpretation Comments POC-GLUCOSE METER (BEAKER) (test code = 1538) 42 mg/dL 70-110 L : TESTED AT [address], [address]: Director Of Collections And Archives/Residential Advisor ID = [id number] for TrevizoYelena arceoBianka POCT-GLUCOSE [id number] 21:36:00* Test Item Value Reference Range Interpretation Comments POC-GLUCOSE METER (BEAKER) (test code = 1538) 45 mg/dL 70-110 L : TESTED AT [address], [address]: Director Of Collections And Archives/Residential Advisor ID = [id number] for Trevizo Bianka POCT-GLUCOSE [id number] 21:36:00* Test Item Value Reference Range Interpretation Comments POC-GLUCOSE METER (BEAKER) (test code = 1538) 51 mg/dL 70-110 L : TESTED AT [address], [address]: Director Of Collections And Archives/Residential Advisor ID = [id number] for Trevizo, Bianka POCT-GLUCOSE [id number] 12:18:00* Test Item Value Reference Range Interpretation Comments POC-GLUCOSE METER (BEAKER) (test code = 1538) 117 mg/dL 70-110 H : TESTED AT [address], [address]: Director Of Collections And Archives/Residential Advisor ID = [id number] for Bianka Trevizo POCT-GLUCOSE [id number] 07:37:00* Test Item Value Reference Range Interpretation Comments POC-GLUCOSE METER (BEAKER) (test code = 1538) 95 mg/dL 70-110 : TESTED AT [address], [address]: Director Of Collections And Archives/Residential Advisor ID = [id number] for Bianka Trevizo POCT-GLUCOSE [id number] 22:18:00* Test Item Value Reference Range Interpretation Comments POC-GLUCOSE METER (BEAKER) (test code = 1538) 82 mg/dL 70-110 : TESTED AT [address], [address]: Director Of Collections And Archives/Residential Advisor ID = [id number] for W[place] HALL POCT-GLUCOSE [id number] 04:39:00* Test Item Value Reference Range Interpretation Comments POC-GLUCOSE METER (BEAKER) (test code = 1538) 78 mg/dL 70-110 : TESTED AT [address], [address]: Director Of Collections And Archives/Residential Advisor ID = [id number] for [place] HALL POCT-GLUCOSE [id number] 22:08:00* Test Item Value Reference Range Interpretation Comments POC-GLUCOSE METER (BEAKER) (test code = 1538) 88 mg/dL 70-110 : TESTED AT [address], [address]: Director Of Collections And Archives/Residential Advisor ID = [id number] for [place] HALL POCT-GLUCOSE [id number] 13:52:00* Test Item Value Reference Range Interpretation Comments POC-GLUCOSE METER (BEAKER) (test code = 1538) 89 mg/dL 70-110 : TESTED AT [address], [address]: Director Of Collections And Archives/Residential Advisor ID = [id number] for KACI AMADOR HEMODIALYSIS [id number] 11:55:00Alyson Stoddard RN 08/30/2019 1:05 PM Procedure fairly tolerated. Mannitol 12.5 gm given x 1 dose to support blood pressure. Vital signs stable post procedure.HD duration 3.5 hours UF 2.7 L via left upper arm AV Fistula. Lab Results [...] Pulse: 75 Resp: 14 Temp: SpO2: 100% [facility] [id number] 07:47:00* Test Item Value Reference Range Interpretation Comments POC-GLUCOSE METER (BEAKER) (test code = 1538) 132 mg/dL 70-110 H : TESTED AT [facility] [address] [place], [address]: Director Of Collections And Archives/Residential Advisor ID = [id number] for TED GALLEGOS [id number] 07:41:00* Test Item Value Reference Range Interpretation Comments FERRITIN (BEAKER) (test code = 361) 944 ng/mL 5-275 H Director Of Collections And Archives ID - NTPIRON, TIBC, % SAT. (WITHOUT FERRITIN)2019-08-30 07:20:00* Test Item Value Reference Range Interpretation Comments IRON (BEAKER) (test code = 547) 52.0 ug/dL 40.0-160.0 TOTAL IRON BINDING CAPACITY (BEAKER) (test code = 769) 130 ug/dL 250-450 L IRON % SATURATION (2) (BEAKER) (test code = 2590) 40 % 20-5 5 Director Of Collections And Archives ID - CURT MBASIC METABOLIC [id number] 06:35:00* Test Item Value Reference Range Interpretation Comments SODIUM (BEAKER) (test code = 381) 137 meq/L 136-145 POTASSIUM (BEAKER) (test code = 379) 4.3 meq/L 3.5-5.1 Specimen slightly hemolyzed CHLORIDE (BEAKER) (test code = 382) 100 meq/L 98-107 CO2 (BEAKER) (test code = 355) 26 meq/L 22-29 BLOOD UREA NITROGEN (BEAKER) (test code = 354) 37 mg/dL 7-21 H CREATININE (BEAKER) (test code = 358) 7.11 mg/dL 0.57-1.25 H Specimen slightly hemolyzed GLUCOSE RANDOM (BEAKER) (test code = 652) 129 mg/dL 70-105 H CALCIUM (BEAKER) (test code = 697) 8.3 mg/dL 8.4-10.2 L EGFR (BEAKER) (test code = 1092) 7 mL/min/1.73 sq m ESTIMATED GFR IS NOT ACCURATE CREATININE CLEARANCE IN PREDICTING GLOMERULAR FILTRATION RATE. ESTIMATED GFR IS NOT APPLICABLE FOR DIALYSIS PATIENTS. Director Of Collections And Archives SHERMAN - CURT [id number] 06:32:00* Test Item Value Reference Range Interpretation Comments PHOSPHORUS (BEAKER) (test code = 604) 4.3 mg/dL 2.3-4.7 Specimen slightly hemolyzed Director Of Collections And Archives SHERMAN ELIAS [facility] W/PLT COUNT & AUTO [id number] 05:37:00* Test Item Value Reference Range Interpretation Comments WHITE BLOOD CELL COUNT (BEAKER) (test code = 775) 6.2 K/ L 3.5- 10.5 RED BLOOD CELL COUNT (BEAKER) (test code = 761) 3.11 M/ L 3.93-5 .22 L HEMOGLOBIN (BEAKER) (test code = 410) 9.0 GM/DL 11.2-15.7 L HEMATOCRIT (BEAKER) (test code = 411) 29.8 % 34.1-44.9 L MEAN CORPUSCULAR VOLUME (BEAKER) (test code = 753) 95.8 fL 79. 4-94.8 H MEAN CORPUSCULAR HEMOGLOBIN (BEAKER) (test code = 751) 28.9 pg 25.6-32.2 MEAN CORPUSCULAR HEMOGLOBIN CONC (BEAKER) (test code = 752) 30.2 GM/DL 32.2-35.5 L RED CELL DISTRIBUTION WIDTH (BEAKER) (test code = 412) 14.4 % 11.7-14.4 PLATELET COUNT (BEAKER) (test code = 756) 134 K/CU MM 150-450 L MEAN PLATELET VOLUME (BEAKER) (test code = 754) 12.3 fL 9.4-12 .3 NUCLEATED RED BLOOD CELLS (BEAKER) (test code = 413) 0 /100 WBC 0 -0 NEUTROPHILS RELATIVE PERCENT (BEAKER) (test code = 429) 60 % LYMPHOCYTES RELATIVE PERCENT (BEAKER) (test code = 430) 25 % MONOCYTES RELATIVE PERCENT (BEAKER) (test code = 431) 13 % EOSINOPHILS RELATIVE PERCENT (BEAKER) (test code = 432) 2 % BASOPHILS RELATIVE PERCENT (BEAKER) (test code = 437) 0 % NEUTROPHILS ABSOLUTE COUNT (BEAKER) (test code = 670) 3.68 K/ L 1.56-6.13 LYMPHOCYTES ABSOLUTE COUNT (BEAKER) (test code = 414) 1.52 K/ L 1.18-3.74 MONOCYTES ABSOLUTE COUNT (BEAKER) (test code = 415) 0.83 K/ L 0. 24-0.36 H EOSINOPHILS ABSOLUTE COUNT (BEAKER) (test code = 416) 0.11 K/ L 0.04-0.36 BASOPHILS ABSOLUTE COUNT (BEAKER) (test code = 417) 0.02 K/ L 0. 01-0.08 IMMATURE GRANULOCYTES-RELATIVE PERCENT (BEAKER) (test code = 2801) 0 % 0-1 POCT-GLUCOSE [id number] 22:36:00* Test Item Value Reference Range Interpretation Comments POC-GLUCOSE METER (BEAKER) (test code = 1538) 150 mg/dL 70-110 H : TESTED AT [address], [address]: Director Of Collections And Archives/Residential Advisor ID = [id number] for W[place] HALL POCT-GLUCOSE [id number] 15:29:00* Test Item Value Reference Range Interpretation Comments POC-GLUCOSE METER (BEAKER) (test code = 1538) 123 mg/dL 70-110 H : TESTED AT [address], [address]: Director Of Collections And Archives/Residential Advisor ID = [id number] for ELANA LYNN Potassium-Stat [id number] 13:26:00* Test Item Value Reference Range Interpretation Comments Potassium (test code = 2823-3) 3.1 meq/L 3.6-5.5 L Lab Interpretation (test code = 11337-2) Abnormal [facility] [id number] 13:26:00* Test Item Value Reference Range Interpretation Comments POTASSIUM (BEAKER) (test code = 379) 3.1 meq/L 3.6-5.5 L BASIC METABOLIC [id number] 12:22:00* Test Item Value Reference Range Interpretation Comments SODIUM (BEAKER) (test code = 381) 137 meq/L 136-145 POTASSIUM (BEAKER) (test code = 379) 5.4 meq/L 3.5-5.1 H Specimen markedly hemolyzed CHLORIDE (BEAKER) (test code = 382) 99 meq/L 98-107 CO2 (BEAKER) (test code = 355) 28 meq/L 22-29 BLOOD UREA NITROGEN (BEAKER) (test code = 354) 31 mg/dL 7-21 H CREATININE (BEAKER) (test code = 358) 6.11 mg/dL 0.57-1.25 H Specimen markedly hemolyzed GLUCOSE RANDOM (BEAKER) (test code = 652) 141 mg/dL 70-105 H CALCIUM (BEAKER) (test code = 697) 8.8 mg/dL 8.4-10.2 EGFR (BEAKER) (test code = 1092) 8 mL/min/1.73 sq m ESTIMATED GFR IS NOT ACCURATE CREATININE CLEARANCE IN PREDICTING GLOMERULAR FILTRATION RATE. ESTIMATED GFR IS NOT APPLICABLE FOR DIALYSIS PATIENTS. Director Of Collections And Archives ID - KAVITA WPOCT-GLUCOSE [id number] 10:37:00* Test Item Value Reference Range Interpretation Comments POC-GLUCOSE METER (BEAKER) (test code = 1538) 150 mg/dL 70-110 H : TESTED AT [address], [address]: Director Of Collections And Archives/Residential Advisor ID = [id number] for DAVE WRIGHT POC-Hemoglobin [id number] 10:27:00* Test Item Value Reference Range Interpretation Comments POC-Hemoglobin Meter (test code = 1539) 10.4 g/dL 12-15 L TESTED AT [address] [address] Lab Interpretation (test code = 66871-7) Abnormal [facility] [id number] 10:27:00* Test Item Value Reference Range Interpretation Comments POC-HEMOGLOBIN METER (BEAKER) (test code = 1539) 10.4 g/dL 12.0- 15.0 L TESTED AT [address] [address] Hepatitis B Surface [id number] 17:23:00* Test Item Value Reference Range Interpretation Comments Hepatitis B Surface Antigen (test code = 5196-1) Negative Negat jinny Performed at: [address] [id number] Director: Ronald Arcos MD, Phone: [phone]. Joseph Medical Center B Surface Fuwrkvk5820-51-97 17:23:00* Test Item Value Reference Range Interpretation Comments Hepatitis B Surface Antigen (test code = 5196-1) Negative Negat jinny Performed at: [address] [id number] Director: Ronald Arcos MD, Phone: [phone] Medical CenterC-Reactive Sebaoms0720-50-84 17:22:00* Test Item Value Reference Range Interpretation Comments C-Reactive Protein (test code = 1988-5) 54 0-10 H Performed at: [address] [id number] Director: Ronald Arcos MD, Phone: [phone] Medical CenterC-Reactive Ssygngk8217-87-17 17:22:00* Test Item Value Reference Range Interpretation Comments C-Reactive Protein (test code = 1987-5) 54 0-10 H Performed at: [address] [id number] Director: Ronald Arcos MD, Phone: [phone] Medical CenterBedside [id number] 11:18:00* Test Item Value Reference Range Interpretation Comments Bedside Glucose (test code = 44097-0) 181 70-120 H Meter ID: [id number]. Joseph Medical Center Be Antigen 2019-08-26 10:26:00* Test Item Value Reference Range Interpretation Comments Hepatitis Be Antigen (test code = 29830-4) Negative Negative [facility] B Core Total Nootiehk1593-88-57 10:26:00* Test Item Value Reference Range Interpretation Comments Hepatitis B Core Total Antibody (test code = 02607-9) Negative Negative [facility] B Core IgM Kzqpkjng6443-12-72 10:26:00* Test Item Value Reference Range Interpretation Comments Hepatitis B Core IgM Antibody (test code = 25512-9) Negative Ne gative Performed at: [address] [id number] Director: Ronald Arcos MD, Phone: [phone]. Joseph Medical Center Be Ssgotfc5723-83-29 10:26:00* Test Item Value Reference Range Interpretation Comments Hepatitis Be Antigen (test code = 86509-4) Negative Negative [facility] B Core Total Jqoebmrz8802-87-86 10:26:00* Test Item Value Reference Range Interpretation Comments Hepatitis B Core Total Antibody (test code = 48790-5) Negative Negative [facility] B Core IgM Adapefpr3537-56-29 10:26:00* Test Item Value Reference Range Interpretation Comments Hepatitis B Core IgM Antibody (test code = 31478-5) Negative Ne gative Performed at: [address] [id number] Director: Ronald Arcos MD, Phone: [phone] Medical CenterHepatitis Be Edpqgza7052-94-60 10:26:00* Test Item Value Reference Range Interpretation Comments Hepatitis Be Antigen (test code = 76140-5) Negative Negative [facility] B Core Total Hrmnvxzi3757-73-86 10:26:00* Test Item Value Reference Range Interpretation Comments Hepatitis B Core Total Antibody (test code = 70171-5) Negative Negative [facility] B Core IgM Nscletqg0866-43-04 10:26:00* Test Item Value Reference Range Interpretation Comments Hepatitis B Core IgM Antibody (test code = 65405-1) Negative Ne gative Performed at: [address] [id number] Director: Ronald Arcos MD, Phone: [phone] Houston Healthcare Clear Lakeerum or plasma C reactive protein measurement (mass/volume)2019-08-26 03:45:00* Test Item Value Reference Range Interpretation Comments C-Reactive Protein (test code = 1988-5) 54 0-10 Performed at: [facility] [place], [place] [id number] Director: Ronald Arcos MD, Phone: [phone] [facility] CenterCT ABDOMEN/PELVIS [id number] 23:20:00 [facility] [address] [address] Patient Name: ANGELA JEFFERS MR #: [id number] : 1945 Age/Sex: 74/F Req #: [id number] Adm Physician: CHERELLE VELASQUEZ MD Ordered by: FABIAN CARDOZO BRASS MOLDER Report #: [id number] Location: MED/SURG2 Room/Bed: [facility] Procedure: [id number] CT/CT ABDOMEN/PELVIS WO Exam Date: 08/24/19 Exam Willie e: 2100 REPORT STATUS: Signed EX AM: CT Abdomen and Pelvis WITHOUT contrast INDICATION: Diarrhea. History of diverticulitis. End-stage renal disease on hemodialysis. COMPARISON: 07/31/2019. TECHNIQUE: Abdomen and pelvis were scanned utilizing a multidete ctor helical scanner from the lung base to the pubic symphysis without adminis tration of IV contrast. Absence of intravenous contrast decreases sensitivity for detection of focal lesions and vascular pathology. Coronal and sagittal re formations were obtained. Routine protocol was performed. IV CO NTRAST: None. ORAL CONTRAST: Water RADIATION DOSE: T otal DLP: 711.48 mGy*cm Estimated effective dose: (DLP x 0.015 x size factor) mSv COMPLICATIONS: None FINDINGS: LINES and TUBES: None. LOWER THORAX: Bilateral trace pleural effusion and bibasilar subsegmental atelectasis. Multivessel coronary artery calcifications. Calcifi cations of aortic and mitral valves. HEPATOBILIARY: No focal hepatic lesions. No biliary ductal dilation. GALLBLADDER: There are stones in the gallbladder. Mild gallbladder hydrops. SPLEEN: No splenomegaly. ANTOINE CREAS: No focal masses or ductal dilatation. ADRENALS: 1.5 cm left adrena l nodule. KIDNEYS/URETERS: No hydronephrosis. 3.0 cm cyst in the posterior interpolar region of the left kidney. 1.8 cm cyst exophytic of the posterior lower pole of the left kidney. No stones. GI TRACT: There is a sclerotic diverticulosis most markedly involving sigmoid colon. There is wall thickening of the distal descending and proximal sigmoid colon associated with surround ing fat stranding, consistent with acute sigmoid diverticulitis. Thickening No abnormal distention to suggest obstruction. PELVIC ORGANS/BLADDER: The seldovia ame is absent. LYMPH NODES: No lymphadenopathy. VESSELS: There is sev ere atherosclerotic disease in the aorta and major arterial branches. PER ITONEUM / RETROPERITONEUM: No free air or fluid. BONES: There are degenerat jinny changes in the lumbar spine. SOFT TISSUES: Small fat-containing umbilic al hernia. IMPRESSION: 1. Findings consistent with acute on chronic dis anmol descending and proximal sigmoid colon diverticulitis. No abscess formation . The common follow-up after treatment to document resolution and exclude unde rlying neoplasm. 2. Cholelithiasis. Mild gallbladder hydrops. Signed by: Dr. Ramírez Warren M.D. on 08/25/2019 2:12 AM Dictated By: RAMIRO WARREN MD, MD 1 Transcribed By: ARIEL on 08/25/19211 COPY TO: FABIAN CARDOZO BRASS MOLDER White Blood Wjhps9343-16-56 07:50:00* Test Item Value Reference Range Interpretation Comments White Blood Count (test code = 6690-2) 5.39 4.8-10.8 [facility] CenterRed Blood Ilgcd1866-18-63 07:50:00* Test Item Value Reference Range Interpretation Comments Red Blood Count (test code = 789-8) 3.87 3.6-5.1 [facility] CenterHemoglobin2020-02-09 07:50:00* Test Item Value Reference Range Interpretation Comments Hemoglobin (test code = 25949-4) 11.4 12.0-16.0 L [facility] CenterHematocrit2020-02-09 07:50:00* Test Item Value Reference Range Interpretation Comments Hematocrit (test code = 4544-3) 35.2 34.2-44.1 [facility] CenterMean Corpuscular Mahxpw5468-27-78 07:50:00* Test Item Value Reference Range Interpretation Comments Mean Corpuscular Volume (test code = 787-2) 91.0 81-99 [facility] CenterMean Corpuscular Tzlotomgux7724-56-31 07:50:00* Test Item Value Reference Range Interpretation Comments Mean Corpuscular Hemoglobin (test code = 785-6) 29.5 28-32 [facility] CenterMean Corpuscular Hemoglobin Concent 2019-08-24 07:50:00* Test Item Value Reference Range Interpretation Comments Mean Corpuscular Hemoglobin Concent (test code = 786-4) 32.4 31-35 [facility] CenterRed Cell Distribution Dazic6036-05-89 07:50:00* Test Item Value Reference Range Interpretation Comments Red Cell Distribution Width (test code = 98595-3) 14.5 11.7 -14.4 H [facility] CenterPlatelet Givcf8055-35-83 07:50:00* Test Item Value Reference Range Interpretation Comments Platelet Count (test code = 777-3) 154 140-360 [facility] CenterNeutrophils (%) (Auto)2019-08-24 07:50:00 * Test Item Value Reference Range Interpretation Comments Neutrophils (%) (Auto) (test code = 90119-7) 69.0 38.7-80.0 [facility] CenterLymphocytes (%) (Auto)2019-08-24 07:50:00 * Test Item Value Reference Range Interpretation Comments Lymphocytes (%) (Auto) (test code = 736-9) 15.6 18.0-39.1 L [facility] CenterMonocytes (%) (Auto)2019-08-24 07:50:00* Test Item Value Reference Range Interpretation Comments Monocytes (%) (Auto) (test code = 5905-5) 12.4 4.4-11.3 H [facility] CenterEosinophils (%) (Auto)2019-08-24 07:50:00 * Test Item Value Reference Range Interpretation Comments Eosinophils (%) (Auto) (test code = 713-8) 2.0 0.0-6.0 [facility] CenterBasophils (%) (Auto)2019-08-24 07:50:00* Test Item Value Reference Range Interpretation Comments Basophils (%) (Auto) (test code = 706-2) 0.4 0.0-1.0 [facility] CenterIM GRANULOCYTES %2019-08-24 07:50:00* Test Item Value Reference Range Interpretation Comments IM GRANULOCYTES % (test code = IM GRANULOCYTES %) 0.6 0.0- 1.0 [facility] CenterNeutrophils # (Auto)2019-08-24 07:50:00* Test Item Value Reference Range Interpretation Comments Neutrophils # (Auto) (test code = 751-8) 3.7 2.1-6.9 [facility] CenterLymphocytes # (Auto)2019-08-24 07:50:00* Test Item Value Reference Range Interpretation Comments Lymphocytes # (Auto) (test code = 45582-0) 0.8 1.0-3.2 L [facility] CenterMonocytes # (Auto)2019-08-24 07:50:00* Test Item Value Reference Range Interpretation Comments Monocytes # (Auto) (test code = 742-7) 0.7 0.2-0.8 [facility] CenterEosinophils # (Auto)2019-08-24 07:50:00* Test Item Value Reference Range Interpretation Comments Eosinophils # (Auto) (test code = 711-2) 0.1 0.0-0.4 [facility] CenterBasophils # (Auto)2019-08-24 07:50:00* Test Item Value Reference Range Interpretation Comments Basophils # (Auto) (test code = 704-7) 0.0 0.0-0.1 [facility] CenterAbsolute Immature Granulocyte (auto 2019-08-24 07:50:00* Test Item Value Reference Range Interpretation Comments Absolute Immature Granulocyte (auto (toby t code = Absolute Immature Granulocyte (auto) 0.03 0-0.1 [facility] Lakeodium Agcjh0935-78-18 07:07:00* Test Item Value Reference Range Interpretation Comments Sodium Level (test code = 2951-2) 136 136-145 [facility] CenterPotassium Mxenf1186-32-98 07:07:00* Test Item Value Reference Range Interpretation Comments Potassium Level (test code = 2823-3) 3.9 3.5-5.1 [facility] CenterChloride Frktk5830-96-09 07:07:00* Test Item Value Reference Range Interpretation Comments Chloride Level (test code = 2075-0) 95 98-107 L [facility] CenterCarbon Dioxide Flqus1371-36-70 07:07:00* Test Item Value Reference Range Interpretation Comments Carbon Dioxide Level (test code = 2028-9) 24 22-29 [facility] CenterAnion Ops2355-80-29 07:07:00* Test Item Value Reference Range Interpretation Comments Anion Gap (test code = 85423-0) 20.9 8-16 H [facility] CenterBlood Urea Inorxqqc5124-07-33 07:07:00* Test Item Value Reference Range Interpretation Comments Blood Urea Nitrogen (test code = 3094-0) 49 7-26 H [facility] CenterCreatinine2020-02-09 07:07:00* Test Item Value Reference Range Interpretation Comments Creatinine (test code = 2160-0) 7.90 0.57-1.11 H [facility] CenterBUN/Creatinine Brbwq0595-40-40 07:07:00* Test Item Value Reference Range Interpretation Comments BUN/Creatinine Ratio (test code = 3097-3) 6 6-25 [facility] CenterEstimat Glomerular Filtration Rate 2019-08-24 07:07:00* Test Item Value Reference Range Interpretation Comments Estimat Glomerular Filtration Rate (test code = 023259625) 6 >60 L Ranges were taken from the [employer] Education Program and the [facility] literature.Reference ranges:60 or greater: Iyycir10-81 ( for 3 consecutive months): Chronic kidney disease 15 or less: Kidney failureKnapp Medical CenterGlucose Jzhka9460-31-36 07:07:00* Test Item Value Reference Range Interpretation Comments Glucose Level (test code = CXU3007) 154 74-118 H [facility] CenterCalcium Dcaok5772-07-76 07:07:00* Test Item Value Reference Range Interpretation Comments Calcium Level (test code = 60668-9) 7.8 8.4-10.2 L [facility] CenterTotal Pmlamswgm9480-02-99 07:07:00* Test Item Value Reference Range Interpretation Comments Total Bilirubin (test code = 1975-2) 0.6 0.2-1.2 [facility] CenterAspartate Amino Transf (AST/SGOT) 2019-08-24 07:07:00* Test Item Value Reference Range Interpretation Comments Aspartate Amino Transf (AST/SGOT) (test code = Aspartate Amino Transf (AST/SGOT)) 11 5-34 [facility] CenterAlanine Aminotransferase (ALT/SGPT) 2019-08-24 07:07:00* Test Item Value Reference Range Interpretation Comments Alanine Aminotransferase (ALT/SGPT) (test code = 1742-6) 6 0-55 [facility] CenterTotal Tfzrzbu6270-00-94 07:07:00* Test Item Value Reference Range Interpretation Comments Total Protein (test code = 2885-2) 7.6 6.5-8.1 [facility] CenterAlbumin2020-02-09 07:07:00* Test Item Value Reference Range Interpretation Comments Albumin (test code = 1751-7) 2.8 3.5-5.0 L [facility] CenterGlobulin2020-02-09 07:07:00* Test Item Value Reference Range Interpretation Comments Globulin (test code = 27391-1) 4.8 2.3-3.5 H [facility] CenterAlbumin/Globulin Naaxa0745-24-24 07:07:00 * Test Item Value Reference Range Interpretation Comments Albumin/Globulin Ratio (test code = 1759-0) 0.6 0.8-2.0 L [facility] CenterAlkaline Waedfmaramm6101-35-29 07:07:00* Test Item Value Reference Range Interpretation Comments Alkaline Phosphatase (test code = 6768-6) 88 40-150 [facility] CenterCreatine Kinase [id number] 15:29:00* Test Item Value Reference Range Interpretation Comments Creatine Kinase MB (test code = 24580-2) 5.90 0-5.0 H [facility] CenterTroponin [id number] 15:29:00* Test Item Value Reference Range Interpretation Comments Troponin I (test code = RUY9428) 0.048 0-0.300 [facility] CenterCreatine Vhaaut2242-11-59 15:19:00* Test Item Value Reference Range Interpretation Comments Creatine Kinase (test code = 2157-6) 147 29-168 [facility] B virus e antigen detection by enzyme vajhxeuamqe3326-07-74 15:00:00* Test Item Value Reference Range Interpretation Comments Hepatitis Be Antigen (test code = 73204-9) Negative Negative [facility] or plasma hepatitis B virus core antibody detection by tfzahpdffhv4353-62-48 15:00:00* Test Item Value Reference Range Interpretation Comments Hepatitis B Core Total Antibody (test code = 88421-2) Negative Negative [facility] or plasma hepatitis B virus core IgM antibody detection by abxyixvfqwc1997-18-36 15:00:00* Test Item Value Reference Range Interpretation Comments Hepatitis B Core IgM Antibody (test code = 42796-8) Negative Ne gative Performed at: - [facility] [id number] Director: Ronald Arcos MD, Phone: [phone] Medical CenterB-Type Natriuretic Dqwsivt9696-85-89 00:10:00* Test Item Value Reference Range Interpretation Comments B-Type Natriuretic Peptide (test code = 11237-2) 687.0 0-100 H [facility] CenterB-Type Natriuretic Lktstho4632-56-05 00:10:00* Test Item Value Reference Range Interpretation Comments B-Type Natriuretic Peptide (test code = 34555-4) 687.0 0-100 H [facility] CenterB-Type Natriuretic Vonuvfe1461-75-40 00:10:00* Test Item Value Reference Range Interpretation Comments B-Type Natriuretic Peptide (test code = 34240-5) 687.0 0-100 H [facility] CenterCHEST SINGLE (PORTABLE)2019-08-23 00:02:00 [facility] [address] [address] Patient Name: ANGELA JEFFERS MR #: [id number] : 1945 Age/Sex: 74/F Req #: [id number] Adm Physician: Ordered by: TREY RODRIGES MD Report #: [id number] Location: ER Room/Bed: Procedure: [id number] DX/CHEST SINGLE (PORTABLE) Exam Date: 08/22/19 Exam Time: 2305 REPORT STATUS: Sign ed EXAMINATION: CHEST SINGLE (PORTABLE) INDICATION: Missed dialysis for a week. COMPARISON: Chest radiograph/. FINDINGS: TUB ES and LINES: None. LUNGS: There are mildly hyperinflated. Bilateral pulmo nary venous congestion. PLEURA: Trace bilateral pleural effusions. No evide nce of pneumothorax. HEART AND MEDIASTINUM: There is moderate cardiomegaly. Calcifications of the thoracic aorta. BONES AND SOFT TISSUES: No acute osseous abnormality. Surgical clips in the left midneck. UPPER ABDOMEN: N o free air under the diaphragm. IMPRESSION: Bilateral pulmonary v enous congestion Signed by: Dr. Ramírez Warren M.D. on 08/23/2019 12:0 4 AM Dictated By: RAMIRO WARREN MD, MD Transcribed By: ARIEL on 08/23/193 Daksha OPY TO: TREY RODRIGES MD Blood Culture - Routine (Left Venipuncture)2019-08-19 18:00:00* Test Item Value Reference Range Interpretation Comments Result (test code = 6463-4) No growth in 5 days [facility] CETHTZS5462-34-64 18:00:00* Test Item Value Reference Range Interpretation Comments CULTURE (BEAKER) (test code = 1095) No growth in 5 days BLOOD EOCRXRB5698-44-74 17:00:00* Test Item Value Reference Range Interpretation Comments CULTURE (BEAKER) (test code = 1095) No growth in 5 days POCT-GLUCOSE [id number] 12:06:00* Test Item Value Reference Range Interpretation Comments POC-GLUCOSE METER (BEAKER) (test code = 1538) 134 mg/dL 70-110 H : TESTED AT [address], [address]: Director Of Collections And Archives/Residential Advisor ID = [id number] for RAEANN MARTINEZ HEMOGLOBIN [id number] 08:54:00* Test Item Value Reference Range Interpretation Comments HEMOGLOBIN A1C (BEAKER) (test code = 368) 5.8 % 4.3-6.1 POCT-GLUCOSE YLVOE4379-93-07 08:25:00* Test Item Value Reference Range Interpretation Comments POC-GLUCOSE METER (BEAKER) (test code = 1538) 174 mg/dL 70-110 H : TESTED AT [address], [address]: Director Of Collections And Archives/Residential Advisor ID = [id number] for RAEANN MARTINEZ BASIC METABOLIC QGHMN4966-86-84 05:12:00* Test Item Value Reference Range Interpretation Comments SODIUM (BEAKER) (test code = 381) 137 meq/L 136-145 POTASSIUM (BEAKER) (test code = 379) 3.7 meq/L 3.5-5.1 CHLORIDE (BEAKER) (test code = 382) 99 meq/L 98-107 CO2 (BEAKER) (test code = 355) 29 meq/L 22-29 BLOOD UREA NITROGEN (BEAKER) (test code = 354) 41 mg/dL 7-21 H CREATININE (BEAKER) (test code = 358) 5.00 mg/dL 0.57-1.25 H GLUCOSE RANDOM (BEAKER) (test code = 652) 217 mg/dL 70-105 H CALCIUM (BEAKER) (test code = 697) 8.3 mg/dL 8.4-10.2 L EGFR (BEAKER) (test code = 1092) 10 mL/min/1.73 sq m ESTIMATED GFR IS NOT ACCURATE CREATININE CLEARANCE IN PREDICTING GLOMERULAR FILTRATION RATE. ESTIMATED GFR IS NOT APPLICABLE FOR DIALYSIS PATIENTS. Director Of Collections And Archives ID - LAWRENCE WHEMODIALYSIS [id number] 00:08:48Óscar Freed RN 08/15/2019 12:10 AMLab Results Component Value Date WBC 7.9 08/14/2019 HGB 12.1 08/14/2019 HCT 40.3 08/14/2019 MCV 96.0 (H) 08/14/2019 PLT 166 08/14/2019 Lab Results Component Value Date GLUCOSE 273 (H) 08/14/2019 CALCIUM 8.4 08/14/2019 NA 133 (L) 08/14/2019 K 4.9 08/14/2019 CO2 25 3 CL 93 (L) 08/14/2019 BUN 72 (H) 08/14/2019 CREATININE 7.69 (H) 020 HD treatement x3 hours completed tolerated well,UF 3 liters removed,patient stable no complaints.Óscar Freed RN [facility] HospitalPOCT-GLUCOSE [id number] 23:46:00* Test Item Value Reference Range Interpretation Comments POC-GLUCOSE METER (YUNIERAKER) (test code = 1538) 189 mg/dL 70-110 H : TESTED AT [address], [address]: Director Of Collections And Archives/Residential Advisor ID = [id number] for Óscar Freed HEPATITIS B SURFACE [id number] 21:37:00* Test Item Value Reference Range Interpretation Comments HEPATITIS B SURFACE ANTIGEN (2) (BEAKER) (test code = 2585) Nonreactive Nonreactive Director Of Collections And Archives ID - DBB-TYPE NATRIURETIC FACTOR (BNP)2019-08-14 18:54:00* Test Item Value Reference Range Interpretation Comments B-TYPE NATRIURETIC PEPTIDE (BEAKER) (test code = 700) 178 pg/mL 0-100 H Director Of Collections And Archives ID - BSPOCT-GLUCOSE [id number] 18:23:00* Test Item Value Reference Range Interpretation Comments POC-GLUCOSE METER (ELIAZAR) (test code = 1538) 247 mg/dL 70-110 H : TESTED AT [facility] [address], [address]: Director Of Collections And Archives/Residential Advisor ID = [id number] for RAEANN MARTINEZ TROPONIN [id number] 16:48:00* Test Item Value Reference Range Interpretation Comments TROPONIN I (ELIAZAR) (test code = 397) 0.07 ng/mL 0.00-0.03 H Troponin I (TnI) levels must be interpreted in the context of the presenting sym ptoms and the clinical findings. Elevated TnI levels indicate myocardial damage, but are not specific for ischemic heart disease. Elevated TnI levels are seen in patients with other cardiac conditions (including myocarditis and congestive h eart failure), and slight TnI elevations occur in patients with other conditions , including sepsis, renal failure, acidosis, acute neurological disease, and per sistent tachyarrhythmia.Director Of Collections And Archives ID - BSCREATINE KINASE (CK)2019-08-14 16:42:00 * Test Item Value Reference Range Interpretation Comments CREATINE KINASE TOTAL (ELIAZAR) (test code = 380) 49 U/L 29-20 0 Director Of Collections And Archives ID - BSBlood gas, [id number] 16:35:00* Test Item Value Reference Range Interpretation Comments pH, Hermes (test code = 2746-6) 7.36 7.32-7.42 pCO2, Hermes (test code = 755) 54 41- 51 mmHg H pO2, Hermes (test code = 2705-2) 41 25- 40 mmHg H O2 Sat, Hermes (test code = 2711-0) 73.0 % 40-70 H HCO3, Hermes (test code = 27681-0) 30 mmol/L 21-29 H Base Excess, Hermes (test code = 1927-3) 3.5 mmol/L -2-3 H Patient Temperature (test code = 8310-5) 37.0 C FIO2 (test code = 1819) 21 % Lab Interpretation (test code = 91354-0) [facility]normal [facility], [id number] 16:35:00* Test Item Value Reference Range Interpretation Comments PH VENOUS (BEAKER) (test code = 701) 7.36 7.32-7.42 PCO2 VENOUS (BEAKER) (test code = 755) 54 mmHg 41-51 H PO2 VENOUS (BEAKER) (test code = 702) 41 mmHg 25-40 H O2 SATURATION VENOUS (BEAKER) (test code = 703) 73.0 % 40.0-7 0.0 H HCO3 VENOUS (BEAKER) (test code = 705) 30 mmol/L 21-29 H BASE EXCESS VENOUS (BEAKER) (test code = 704) 3.5 mmol/L -2.0-3.0 H PATIENT TEMPERATURE (BEAKER) (test code = 1818) 37.0 C FIO2 (BEAKER) (test code = 1819) 21.0 % BASIC METABOLIC [id number] 16:19:00* Test Item Value Reference Range Interpretation Comments SODIUM (BEAKER) (test code = 381) 133 meq/L 136-145 L POTASSIUM (BEAKER) (test code = 379) 4.9 meq/L 3.5-5.1 Specimen moderately hemolyzed CHLORIDE (BEAKER) (test code = 382) 93 meq/L 98-107 L CO2 (BEAKER) (test code = 355) 25 meq/L 22-29 BLOOD UREA NITROGEN (BEAKER) (test code = 354) 72 mg/dL 7-21 H CREATININE (BEAKER) (test code = 358) 7.69 mg/dL 0.57-1.25 H Specimen moderately hemolyzed GLUCOSE RANDOM (BEAKER) (test code = 652) 273 mg/dL 70-105 H CALCIUM (BEAKER) (test code = 697) 8.4 mg/dL 8.4-10.2 EGFR (BEAKER) (test code = 1092) 6 mL/min/1.73 sq m ESTIMATED GFR IS NOT ACCURATE CREATININE CLEARANCE IN PREDICTING GLOMERULAR FILTRATION RATE. ESTIMATED GFR IS NOT APPLICABLE FOR DIALYSIS PATIENTS. Director Of Collections And Archives ID - BSC-Reactive [id number] 16:12:00* Test Item Value Reference Range Interpretation Comments CRP (test code = 676) 6.10 mg/dL 0-0.5 H GABBY (test code = GABBY) Director Of Collections And Archives ID - BS Lab Interpretation (test code = 31794-2) Abnormal [facility]IUM2020-01-30 16:12:00* Test Item Value Reference Range Interpretation Comments MAGNESIUM (BEAKER) (test code = 627) 2.1 mg/dL 1.6-2.6 Specimen moderately hemolyzed Director Of Collections And Archives ID - BSHEPATIC FUNCTION [id number] 16:12:00* Test Item Value Reference Range Interpretation Comments TOTAL PROTEIN (BEAKER) (test code = 770) 8.2 gm/dL 6.0-8.3 Specimen moderately hemolyzed ALBUMIN (BEAKER) (test code = 1145) 3.6 g/dL 3.5-5.0 Specimen moderately hemolyzed BILIRUBIN TOTAL (BEAKER) (test code = 377) 0.4 mg/dL 0.2-1.2 Specimen moderately hemolyzed BILIRUBIN DIRECT (BEAKER) (test code = 706) 0.2 mg/dL 0.1-0.5 Specimen moderately hemolyzed ALKALINE PHOSPHATASE (BEAKER) (test code = 346) 129 U/L 40-150 AST (SGOT) (BEAKER) (test code = 353) 28 U/L 5-34 Specimen moderately hemolyzed ALT (SGPT) (BEAKER) (test code = 347) 15 U/L 6-55 Specimen moderately hemolyzed Director Of Collections And Archives ID - BSC-REACTIVE [id number] 16:12:00* Test Item Value Reference Range Interpretation Comments C-REACTIVE PROTEIN (BEAKER) (test code = 676) 6.10 mg/dL 0.00-0.5 0 H Director Of Collections And Archives ID - BSPT/[id number] 16:07:00* Test Item Value Reference Range Interpretation Comments PROTIME (BEAKER) (test code = 759) 14.6 seconds 11.9-14.2 H INR (BEAKER) (test code = 370) 1.2 <=5.9 PARTIAL THROMBOPLASTIN TIME (BEAKER) (test code = 760) 34.6 seconds 22.5-36.0 Effective 12/11/2018: PT Reference Range ChangeNew: 11.9-14.2 Previous: 11.7-14. 7RECOMMENDED COUMADIN/WARFARIN INR THERAPY RANGESSTANDARD DOSE: 2.0-3.0 Include s: PROPHYLAXIS for venous thrombosis, systemic embolization; TREATMENT for venou s thrombosis and/or pulmonary embolus.HIGH RISK: Target INR is 2.5-3.5 for patie nts wiht mechanical heart valves.RAD, CHEST, 1 VIEW, NON [id number] 16:00:00 Reason for exam:->PNEUMONIAFINAL REPORT TECHNIQUE: Frontal chest radiograph dated 08/14/2019. CLINICAL HISTORY: Pneumonia COMPARISON STUDY: Chest radiograph dated 07/08/2019 IMPRESSION:Stable left retrocardiac airspace opacity and likely small left pleural effusion. No pneumothorax. Cardiomediastinal silhouette is stable in size. No pulmonary edema. Degenerative changes are seen in the spine. Signed: Steffi Dawkins MDReport Verified Date/Time: 08/14/2019 16:00:17 Reading Location: [facility] Reading Room Lactic acid, [id number] 15:57:00* Test Item Value Reference Range Interpretation Comments Lactate, Venous (test code = 2872) 1.4 mmol/L 0.5-2.2 Specimen moderately hemolyzed GABBY (test code = GABBY) Director Of Collections And Archives ID - BS Lab Interpretation (test code = 65005-0) Normal [facility] HospitalLACT[facility] ACID, [id number] 15:57:00* Test Item Value Reference Range Interpretation Comments LACTATE BLOOD VENOUS (2) (BEAKER) (test code = 2872) 1.4 mmol/L 0 .5-2.2 Specimen moderately hemolyzed Director Of Collections And Archives ID - BSCBC W/PLT COUNT & AUTO [id number] 15:54:00* Test Item Value Reference Range Interpretation Comments WHITE BLOOD CELL COUNT (BEAKER) (test code = 775) 7.9 K/ L 3.5- 10.5 RED BLOOD CELL COUNT (BEAKER) (test code = 761) 4.20 M/ L 3.93-5 .22 HEMOGLOBIN (BEAKER) (test code = 410) 12.1 GM/DL 11.2-15.7 HEMATOCRIT (BEAKER) (test code = 411) 40.3 % 34.1-44.9 MEAN CORPUSCULAR VOLUME (BEAKER) (test code = 753) 96.0 fL 79. 4-94.8 H MEAN CORPUSCULAR HEMOGLOBIN (BEAKER) (test code = 751) 28.8 pg 25.6-32.2 MEAN CORPUSCULAR HEMOGLOBIN CONC (BEAKER) (test code = 752) 30.0 GM/DL 32.2-35.5 L RED CELL DISTRIBUTION WIDTH (BEAKER) (test code = 412) 14.9 % 11.7-14.4 H PLATELET COUNT (BEAKER) (test code = 756) 166 K/CU MM 150-450 MEAN PLATELET VOLUME (BEAKER) (test code = 754) 12.7 fL 9.4-12 .3 H NUCLEATED RED BLOOD CELLS (BEAKER) (test code = 413) 0 /100 WBC 0 -0 NEUTROPHILS RELATIVE PERCENT (BEAKER) (test code = 429) 80 % LYMPHOCYTES RELATIVE PERCENT (BEAKER) (test code = 430) 14 % MONOCYTES RELATIVE PERCENT (BEAKER) (test code = 431) 5 % EOSINOPHILS RELATIVE PERCENT (BEAKER) (test code = 432) 1 % BASOPHILS RELATIVE PERCENT (BEAKER) (test code = 437) 0 % NEUTROPHILS ABSOLUTE COUNT (BEAKER) (test code = 670) 6.33 K/ L 1.56-6.13 H LYMPHOCYTES ABSOLUTE COUNT (BEAKER) (test code = 414) 1.07 K/ L 1.18-3.74 L MONOCYTES ABSOLUTE COUNT (BEAKER) (test code = 415) 0.36 K/ L 0. 24-0.36 EOSINOPHILS ABSOLUTE COUNT (BEAKER) (test code = 416) 0.07 K/ L 0.04-0.36 BASOPHILS ABSOLUTE COUNT (BEAKER) (test code = 417) 0.02 K/ L 0. 01-0.08 IMMATURE GRANULOCYTES-RELATIVE PERCENT (BEAKER) (test code = 2801) 0 % 0-1 BLOOD [id number] 18:00:00* Test Item Value Reference Range Interpretation Comments CULTURE (BEAKER) (test code = 1095) No growth in 5 days POCT-GLUCOSE [id number] 17:40:00* Test Item Value Reference Range Interpretation Comments POC-GLUCOSE METER (BEAKER) (test code = 1538) 111 mg/dL 70-110 H : TESTED AT [facility] [address], [address]: Director Of Collections And Archives/Residential Advisor ID = [id number] for LACHELLE IZAGUIRRE POCT-GLUCOSE [id number] 17:16:00* Test Item Value Reference Range Interpretation Comments POC-GLUCOSE METER (BEAKER) (test code = 1538) 133 mg/dL 70-110 H : TESTED AT [facility] [address], [address]: Director Of Collections And Archives/Residential Advisor ID = [id number] for LACHELLE IZAGUIRRE CBC W/PLT COUNT & AUTO [id number] 10:40:00* Test Item Value Reference Range Interpretation Comments WHITE BLOOD CELL COUNT (BEAKER) (test code = 775) 9.4 K/ L 3.5- 10.5 RED BLOOD CELL COUNT (BEAKER) (test code = 761) 3.04 M/ L 3.93-5 .22 L HEMOGLOBIN (BEAKER) (test code = 410) 9.0 GM/DL 11.2-15.7 L HEMATOCRIT (BEAKER) (test code = 411) 29.1 % 34.1-44.9 L MEAN CORPUSCULAR VOLUME (BEAKER) (test code = 753) 95.7 fL 79. 4-94.8 H MEAN CORPUSCULAR HEMOGLOBIN (BEAKER) (test code = 751) 29.6 pg 25.6-32.2 MEAN CORPUSCULAR HEMOGLOBIN CONC (BEAKER) (test code = 752) 30.9 GM/DL 32.2-35.5 L RED CELL DISTRIBUTION WIDTH (BEAKER) (test code = 412) 16.8 % 11.7-14.4 H PLATELET COUNT (BEAKER) (test code = 756) 243 K/CU MM 150-450 MEAN PLATELET VOLUME (BEAKER) (test code = 754) 11.0 fL 9.4-12 .3 NUCLEATED RED BLOOD CELLS (BEAKER) (test code = 413) 0 /100 WBC 0 -0 NEUTROPHILS RELATIVE PERCENT (BEAKER) (test code = 429) 75 % LYMPHOCYTES RELATIVE PERCENT (BEAKER) (test code = 430) 14 % MONOCYTES RELATIVE PERCENT (BEAKER) (test code = 431) 10 % EOSINOPHILS RELATIVE PERCENT (BEAKER) (test code = 432) 1 % BASOPHILS RELATIVE PERCENT (BEAKER) (test code = 437) 0 % NEUTROPHILS ABSOLUTE COUNT (BEAKER) (test code = 670) 7.01 K/ L 1.56-6.13 H LYMPHOCYTES ABSOLUTE COUNT (BEAKER) (test code = 414) 1.29 K/ L 1.18-3.74 MONOCYTES ABSOLUTE COUNT (BEAKER) (test code = 415) 0.96 K/ L 0. 24-0.36 H EOSINOPHILS ABSOLUTE COUNT (BEAKER) (test code = 416) 0.08 K/ L 0.04-0.36 BASOPHILS ABSOLUTE COUNT (BEAKER) (test code = 417) 0.03 K/ L 0. 01-0.08 IMMATURE GRANULOCYTES-RELATIVE PERCENT (BEAKER) (test code = 2801) 1 % 0-1 POCT-GLUCOSE [id number] 21:28:00* Test Item Value Reference Range Interpretation Comments POC-GLUCOSE METER (BEAKER) (test code = 1538) 126 mg/dL 70-110 H : TESTED AT [address], [address]: Director Of Collections And Archives/Residential Advisor ID = [id number] for LAURO CHOWDARY POCT-GLUCOSE [id number] 16:35:00* Test Item Value Reference Range Interpretation Comments POC-GLUCOSE METER (ELIAZAR) (test code = 1538) 185 mg/dL 70-110 H : TESTED AT [address], [address]: Director Of Collections And Archives/Residential Advisor ID = [id number] for LACHELLE IZAGUIRRE POCT-GLUCOSE [id number] 13:21:00* Test Item Value Reference Range Interpretation Comments POC-GLUCOSE METER (ELIAZAR) (test code = 1538) 87 mg/dL 70-110 : TESTED AT [address], [address]: Director Of Collections And Archives/Residential Advisor ID = [id number] for LACHELLE IZAGUIRRE HEMODIALYSIS [id number] 11:55:00José Escalante RN 07/10/2019 11:55 AMLab Results Component Value Date GLUCOSE 124 (H) 07/10/2019 CALCIUM 7.9 (L) 07/10/2019 NA 137 07/10/2019 K 4.2 07/10/2019 CO2 25 07/10/2019 CL 101 07/10/2019 BUN 29 (H) 07/10/2019 CREATININE 6.25 (H) 07/10/2019 Lab Results Component Value Date WBC 12.0 (H) 07/10/2019 HGB 7.7 (L) 07/10/2019 HCT 24.3 (L) 07/10/2019 MCV 94.2 07/10/2019 PLT 235 07/10/2019 Results for ANGELA JEFFERS ( ) as of 07/10/2019 10:45 Ref. Range 06/28/2019 09:11 Hepatitis B Surface Ag Latest Ref Range: Nonreactive Nonreactive HD X 4 hours completed. Net UF -3L. VSS. Patient very confused. Restless during procedure. Required constant observation during HD so she wouldn't pull out her access catheters. José Escalante RN [facility] [id number] 10:26:00* Test Item Value Reference Range Interpretation Comments POC-GLUCOSE METER (BEAKER) (test code = 1538) 102 mg/dL 70-110 : TESTED AT [address], [address]: Director Of Collections And Archives/Residential Advisor ID = [id number] for JOSÉ ESCALANTE BASIC METABOLIC [id number] 09:00:00* Test Item Value Reference Range Interpretation Comments SODIUM (BEAKER) (test code = 381) 137 meq/L 136-145 POTASSIUM (BEAKER) (test code = 379) 4.2 meq/L 3.5-5.1 CHLORIDE (BEAKER) (test code = 382) 101 meq/L 98-107 CO2 (BEAKER) (test code = 355) 25 meq/L 22-29 BLOOD UREA NITROGEN (BEAKER) (test code = 354) 29 mg/dL 7-21 H CREATININE (BEAKER) (test code = 358) 6.25 mg/dL 0.57-1.25 H GLUCOSE RANDOM (BEAKER) (test code = 652) 124 mg/dL 70-105 H CALCIUM (BEAKER) (test code = 697) 7.9 mg/dL 8.4-10.2 L EGFR (BEAKER) (test code = 1092) 8 mL/min/1.73 sq m ESTIMATED GFR IS NOT ACCURATE CREATININE CLEARANCE IN PREDICTING GLOMERULAR FILTRATION RATE. ESTIMATED GFR IS NOT APPLICABLE FOR DIALYSIS PATIENTS. [id number] 08:58:00* Test Item Value Reference Range Interpretation Comments PHOSPHORUS (BEAKER) (test code = 604) 1.7 mg/dL 2.3-4.7 L [id number] 08:58:00* Test Item Value Reference Range Interpretation Comments MAGNESIUM (BEAKER) (test code = 627) 2.0 mg/dL 1.6-2.6 CBC W/PLT COUNT & AUTO [id number] 08:41:00* Test Item Value Reference Range Interpretation Comments WHITE BLOOD CELL COUNT (BEAKER) (test code = 775) 12.0 K/ L 3.5- 10.5 H RED BLOOD CELL COUNT (BEAKER) (test code = 761) 2.58 M/ L 3.93-5 .22 L HEMOGLOBIN (BEAKER) (test code = 410) 7.7 GM/DL 11.2-15.7 L HEMATOCRIT (BEAKER) (test code = 411) 24.3 % 34.1-44.9 L MEAN CORPUSCULAR VOLUME (BEAKER) (test code = 753) 94.2 fL 79. 4-94.8 MEAN CORPUSCULAR HEMOGLOBIN (BEAKER) (test code = 751) 29.8 pg 25.6-32.2 MEAN CORPUSCULAR HEMOGLOBIN CONC (BEAKER) (test code = 752) 31.7 GM/DL 32.2-35.5 L RED CELL DISTRIBUTION WIDTH (BEAKER) (test code = 412) 16.5 % 11.7-14.4 H PLATELET COUNT (BEAKER) (test code = 756) 235 K/CU MM 150-450 MEAN PLATELET VOLUME (BEAKER) (test code = 754) 11.5 fL 9.4-12 .3 NUCLEATED RED BLOOD CELLS (BEAKER) (test code = 413) 0 /100 WBC 0 -0 NEUTROPHILS RELATIVE PERCENT (BEAKER) (test code = 429) 82 % LYMPHOCYTES RELATIVE PERCENT (BEAKER) (test code = 430) 8 % MONOCYTES RELATIVE PERCENT (BEAKER) (test code = 431) 9 % EOSINOPHILS RELATIVE PERCENT (BEAKER) (test code = 432) 0 % BASOPHILS RELATIVE PERCENT (BEAKER) (test code = 437) 0 % NEUTROPHILS ABSOLUTE COUNT (BEAKER) (test code = 670) 9.77 K/ L 1.56-6.13 H LYMPHOCYTES ABSOLUTE COUNT (BEAKER) (test code = 414) 1.00 K/ L 1.18-3.74 L MONOCYTES ABSOLUTE COUNT (BEAKER) (test code = 415) 1.08 K/ L 0. 24-0.36 H EOSINOPHILS ABSOLUTE COUNT (BEAKER) (test code = 416) 0.05 K/ L 0.04-0.36 BASOPHILS ABSOLUTE COUNT (BEAKER) (test code = 417) 0.01 K/ L 0. 01-0.08 IMMATURE GRANULOCYTES-RELATIVE PERCENT (BEAKER) (test code = 2801) 0 % 0-1 POCT-GLUCOSE [id number] 21:30:00* Test Item Value Reference Range Interpretation Comments POC-GLUCOSE METER (BEAKER) (test code = 1538) 96 mg/dL 70-110 : TESTED AT [facility] [address] [place], [address]: Director Of Collections And Archives/Residential Advisor ID = [id number] for LAURO CHOWDARY POCT-GLUCOSE [id number] 17:06:00* Test Item Value Reference Range Interpretation Comments POC-GLUCOSE METER (BEAKER) (test code = 1538) 94 mg/dL 70-110 : TESTED AT [address], [address]: Director Of Collections And Archives/Residential Advisor ID = [id number] for NADEEM CARDONA Clostridium difficile GDH [id number] 16:42:00* Test Item Value Reference Range Interpretation Comments C. Difficle Toxin (test code = [id number]) Negative Negative C. Difficile GDH Antigen (test code = 7781645911) Positive Nega tive A C. difficile present but toxin not detected. Indicates colonization with non- toxigenic strain or level of toxin below detectable levels. No need for enteric isolation. Treatment is rarely needed (only when strong clinical suspicion for Clostridium difficile infection) GABBY (test code = GABBY) Testing performed by [employer] apid Cassette Assay. For GDH, published sensitivity of the assay is 98.7% compared to cytotoxicity testing. For Toxin AB, published sensitivity is 87.8% and specificity 99.4% compared to cytotoxicity testing.Verification of kit performance was done by the [facility] Microbiology Lab prior to clinical use. Lab Interpretation (test code = 60072-0) [facility] [id number] 16:42:00* Test Item Value Reference Range Interpretation Comments CDT TOXIN (test code = 8279102949) Negative Negative CDT GDH ANTIGEN (test code = 8364183005) Positive Negative A C. difficile present but toxin not detected. Indicates colonization with non-toxigenic strain or level of toxin below detectable levels. No need for enteric isolation. Treatment is rarely needed (only when strong clinical suspicion for Clostridium difficile infection) Testing performed by [employer] Rapid Cassette Assay. For GDH, published sensitivity of the assay is 98.7% compared to cytotoxicity testing. For Toxin AB, published sensitivity is 87.8% and specificity 99.4% compared to cytotoxicity testing.Ve rification of kit performance was done by the [facility] Microbiology Lab prior to cl inical use.POCT-GLUCOSE [id number] 11:57:00* Test Item Value Reference Range Interpretation Comments POC-GLUCOSE METER (BEAKER) (test code = 1538) 255 mg/dL 70-110 H : Notified RN/MD: TESTED AT [address], [address]: Director Of Collections And Archives/Residential Advisor ID = [id number] for TSEGGAI, PATRICIAEREDA POCT-GLUCOSE [id number] 08:31:00* Test Item Value Reference Range Interpretation Comments POC-GLUCOSE METER (BEAKER) (test code = 1538) 108 mg/dL 70-110 : TESTED AT [address], [address]: Director Of Collections And Archives/Residential Advisor ID = [id number] for TSEGGAI, TSIGHEREDA [id number] 06:45:00* Test Item Value Reference Range Interpretation Comments Procalcitonin (test code = 60939-1) 1.09 ng/mL <0.05 H GABBY (test code = GABBY) SEPSIS RISK (ng/mL)Low: 0.05-0.50Intermediate: 0.51-2.00High: >=2.01 Lab Interpretation (test code = 91800-3) [facility]normal [id number] 06:45:00* Test Item Value Reference Range Interpretation Comments PROCALCITONIN (BEAKER) (test code = 3036) 1.09 ng/mL <0.05 H SEPSIS RISK (ng/mL)Low: 0.05-0.50Intermediate: 0.51-2.00High: > =2.01BASIC METABOLIC [id number] 06:06:00* Test Item Value Reference Range Interpretation Comments SODIUM (BEAKER) (test code = 381) 136 meq/L 136-145 POTASSIUM (BEAKER) (test code = 379) 3.9 meq/L 3.5-5.1 CHLORIDE (BEAKER) (test code = 382) 100 meq/L 98-107 CO2 (BEAKER) (test code = 355) 28 meq/L 22-29 BLOOD UREA NITROGEN (BEAKER) (test code = 354) 20 mg/dL 7-21 CREATININE (BEAKER) (test code = 358) 5.06 mg/dL 0.57-1.25 H GLUCOSE RANDOM (BEAKER) (test code = 652) 126 mg/dL 70-105 H CALCIUM (BEAKER) (test code = 697) 8.2 mg/dL 8.4-10.2 L EGFR (BEAKER) (test code = 1092) 10 mL/min/1.73 sq m ESTIMATED GFR IS NOT ACCURATE CREATININE CLEARANCE IN PREDICTING GLOMERULAR FILTRATION RATE. ESTIMATED GFR IS NOT APPLICABLE FOR DIALYSIS PATIENTS. [id number] 06:05:00* Test Item Value Reference Range Interpretation Comments PHOSPHORUS (BEAKER) (test code = 604) 1.5 mg/dL 2.3-4.7 LL CBC W/PLT COUNT & AUTO [id number] 06:03:00* Test Item Value Reference Range Interpretation Comments WHITE BLOOD CELL COUNT (BEAKER) (test code = 775) 11.0 K/ L 3.5- 10.5 H RED BLOOD CELL COUNT (BEAKER) (test code = 761) 2.63 M/ L 3.93-5 .22 L HEMOGLOBIN (BEAKER) (test code = 410) 7.7 GM/DL 11.2-15.7 L HEMATOCRIT (BEAKER) (test code = 411) 24.8 % 34.1-44.9 L MEAN CORPUSCULAR VOLUME (BEAKER) (test code = 753) 94.3 fL 79. 4-94.8 MEAN CORPUSCULAR HEMOGLOBIN (BEAKER) (test code = 751) 29.3 pg 25.6-32.2 MEAN CORPUSCULAR HEMOGLOBIN CONC (BEAKER) (test code = 752) 31.0 GM/DL 32.2-35.5 L RED CELL DISTRIBUTION WIDTH (BEAKER) (test code = 412) 15.7 % 11.7-14.4 H PLATELET COUNT (BEAKER) (test code = 756) 247 K/CU MM 150-450 MEAN PLATELET VOLUME (BEAKER) (test code = 754) 11.8 fL 9.4-12 .3 NUCLEATED RED BLOOD CELLS (BEAKER) (test code = 413) 0 /100 WBC 0 -0 NEUTROPHILS RELATIVE PERCENT (BEAKER) (test code = 429) 80 % LYMPHOCYTES RELATIVE PERCENT (BEAKER) (test code = 430) 11 % MONOCYTES RELATIVE PERCENT (BEAKER) (test code = 431) 8 % EOSINOPHILS RELATIVE PERCENT (BEAKER) (test code = 432) 1 % BASOPHILS RELATIVE PERCENT (BEAKER) (test code = 437) 0 % NEUTROPHILS ABSOLUTE COUNT (BEAKER) (test code = 670) 8.79 K/ L 1.56-6.13 H LYMPHOCYTES ABSOLUTE COUNT (BEAKER) (test code = 414) 1.17 K/ L 1.18-3.74 L MONOCYTES ABSOLUTE COUNT (BEAKER) (test code = 415) 0.89 K/ L 0. 24-0.36 H EOSINOPHILS ABSOLUTE COUNT (BEAKER) (test code = 416) 0.09 K/ L 0.04-0.36 BASOPHILS ABSOLUTE COUNT (BEAKER) (test code = 417) 0.02 K/ L 0. 01-0.08 IMMATURE GRANULOCYTES-RELATIVE PERCENT (BEAKER) (test code = 2801) 1 % 0-1 [id number] 06:02:00* Test Item Value Reference Range Interpretation Comments MAGNESIUM (BEAKER) (test code = 627) 2.0 mg/dL 1.6-2.6 Vancomycin level, [id number] 05:59:00* Test Item Value Reference Range Interpretation Comments Vancomycin Tr (test code = 4092-3) 18.0 ug/mL 10-20 Lab Interpretation (test code = 06545-4) Normal [facility], [id number] 05:59:00* Test Item Value Reference Range Interpretation Comments VANCOMYCIN TROUGH (BEAKER) (test code = 522) 18.0 ug/mL 10.0-20.0 POCT-GLUCOSE [id number] 21:14:00* Test Item Value Reference Range Interpretation Comments POC-GLUCOSE METER (BEAKER) (test code = 1538) 150 mg/dL 70-110 H : TESTED AT [address], [address]: Director Of Collections And Archives/Residential Advisor ID = [id number] for FIDE TURNER RAD, CHEST, 1 VIEW, NON [id number] 18:35:00Reason for exam:->Worsening leukocytosisShould this be performed at the bedside?->YesFINAL REPORT Portable chest. CLINICAL HISTORY: Worsening leukocytosis. COMPARISON STUDY: March 29, 2015. FINDINGS: The cardiac silhouette is enlarged. The pulmonary parenchyma demonstrates pulmonary venous congestion with increased interstitial markings and bibasilar atelectasis or consolidation, more so on the left side with blunting of the left costophrenic angle. No p neumothorax is seen. Degenerative changes are noted. IMPRESSION: Findings most s uggestive of CHF. In the right clinical setting, a superimposed infection would be difficult to exclude. Clinical correlation and short term imaging follow-up c ould be made to exclude other etiologies. Signed: Jadon Carr MDReport Verif ied Date/Time: 07/08/2019 18:35:04 Reading Location: [place] [id number] CT Body Readi ng Room -GLUCOSE [id number] 18:27:00* Test Item Value Reference Range Interpretation Comments POC-GLUCOSE METER (BEAKER) (test code = 1538) 126 mg/dL 70-110 H : TESTED AT [place] [id number] [facility], [address]: Director Of Collections And Archives/Residential Advisor ID = [id number] for AKINSONU, FERDINAND POCT-GLUCOSE [id number] 12:27:00* Test Item Value Reference Range Interpretation Comments POC-GLUCOSE METER (BEAKER) (test code = 1538) 114 mg/dL 70-110 H : TESTED AT [place] [id number] [facility], [address]: Director Of Collections And Archives/Residential Advisor ID = [id number] for AKINSONU, FERDINAND CBC W/PLT COUNT & AUTO [id number] 10:45:00* Test Item Value Reference Range Interpretation Comments WHITE BLOOD CELL COUNT (BEAKER) (test code = 775) 17.9 K/ L 3.5- 10.5 H RED BLOOD CELL COUNT (BEAKER) (test code = 761) 2.70 M/ L 3.93-5 .22 L HEMOGLOBIN (BEAKER) (test code = 410) 8.0 GM/DL 11.2-15.7 L HEMATOCRIT (BEAKER) (test code = 411) 24.8 % 34.1-44.9 L MEAN CORPUSCULAR VOLUME (BEAKER) (test code = 753) 91.9 fL 79. 4-94.8 MEAN CORPUSCULAR HEMOGLOBIN (BEAKER) (test code = 751) 29.6 pg 25.6-32.2 MEAN CORPUSCULAR HEMOGLOBIN CONC (BEAKER) (test code = 752) 32.3 GM/DL 32.2-35.5 RED CELL DISTRIBUTION WIDTH (BEAKER) (test code = 412) 15.4 % 11.7-14.4 H PLATELET COUNT (BEAKER) (test code = 756) 226 K/CU MM 150-450 MEAN PLATELET VOLUME (BEAKER) (test code = 754) 11.4 fL 9.4-12 .3 NUCLEATED RED BLOOD CELLS (BEAKER) (test code = 413) 0 /100 WBC 0 -0 NEUTROPHILS RELATIVE PERCENT (BEAKER) (test code = 429) 85 % LYMPHOCYTES RELATIVE PERCENT (BEAKER) (test code = 430) 6 % MONOCYTES RELATIVE PERCENT (BEAKER) (test code = 431) 8 % EOSINOPHILS RELATIVE PERCENT (BEAKER) (test code = 432) 1 % BASOPHILS RELATIVE PERCENT (BEAKER) (test code = 437) 0 % NEUTROPHILS ABSOLUTE COUNT (BEAKER) (test code = 670) 15.17 K/ L 1.56-6.13 H LYMPHOCYTES ABSOLUTE COUNT (BEAKER) (test code = 414) 1.05 K/ L 1.18-3.74 L MONOCYTES ABSOLUTE COUNT (BEAKER) (test code = 415) 1.35 K/ L 0. 24-0.36 H EOSINOPHILS ABSOLUTE COUNT (BEAKER) (test code = 416) 0.09 K/ L 0.04-0.36 BASOPHILS ABSOLUTE COUNT (BEAKER) (test code = 417) 0.02 K/ L 0. 01-0.08 IMMATURE GRANULOCYTES-RELATIVE PERCENT (BEAKER) (test code = 2801) 1 % 0-1 POCT-GLUCOSE [id number] 09:39:00* Test Item Value Reference Range Interpretation Comments POC-GLUCOSE METER (BEAKER) (test code = 1538) 98 mg/dL 70-110 : TESTED AT [facility] [address] [facility], [address]: Director Of Collections And Archives/Residential Advisor ID = [id number] for [place] MADDEN BASIC METABOLIC [id number] 07:22:00* Test Item Value Reference Range Interpretation Comments SODIUM (BEAKER) (test code = 381) 138 meq/L 136-145 POTASSIUM (BEAKER) (test code = 379) 4.0 meq/L 3.5-5.1 CHLORIDE (BEAKER) (test code = 382) 101 meq/L 98-107 CO2 (BEAKER) (test code = 355) 26 meq/L 22-29 BLOOD UREA NITROGEN (BEAKER) (test code = 354) 36 mg/dL 7-21 H CREATININE (BEAKER) (test code = 358) 7.32 mg/dL 0.57-1.25 H GLUCOSE RANDOM (BEAKER) (test code = 652) 113 mg/dL 70-105 H CALCIUM (BEAKER) (test code = 697) 8.3 mg/dL 8.4-10.2 L EGFR (BEAKER) (test code = 1092) 7 mL/min/1.73 sq m ESTIMATED GFR IS NOT ACCURATE CREATININE CLEARANCE IN PREDICTING GLOMERULAR FILTRATION RATE. ESTIMATED GFR IS NOT APPLICABLE FOR DIALYSIS PATIENTS. [id number] 07:09:00* Test Item Value Reference Range Interpretation Comments PHOSPHORUS (BEAKER) (test code = 604) 1.9 mg/dL 2.3-4.7 L [id number] 07:09:00* Test Item Value Reference Range Interpretation Comments MAGNESIUM (BEAKER) (test code = 627) 2.1 mg/dL 1.6-2.6 CBC W/PLT COUNT & AUTO [id number] 06:43:00* Test Item Value Reference Range Interpretation Comments WHITE BLOOD CELL COUNT (BEAKER) (test code = 775) 12.1 K/ L 3.5- 10.5 H RED BLOOD CELL COUNT (BEAKER) (test code = 761) 2.98 M/ L 3.93-5 .22 L HEMOGLOBIN (BEAKER) (test code = 410) 8.8 GM/DL 11.2-15.7 L HEMATOCRIT (BEAKER) (test code = 411) 27.9 % 34.1-44.9 L MEAN CORPUSCULAR VOLUME (BEAKER) (test code = 753) 93.6 fL 79. 4-94.8 MEAN CORPUSCULAR HEMOGLOBIN (BEAKER) (test code = 751) 29.5 pg 25.6-32.2 MEAN CORPUSCULAR HEMOGLOBIN CONC (BEAKER) (test code = 752) 31.5 GM/DL 32.2-35.5 L RED CELL DISTRIBUTION WIDTH (BEAKER) (test code = 412) 15.4 % 11.7-14.4 H PLATELET COUNT (BEAKER) (test code = 756) 244 K/CU MM 150-450 MEAN PLATELET VOLUME (BEAKER) (test code = 754) 11.1 fL 9.4-12 .3 NUCLEATED RED BLOOD CELLS (BEAKER) (test code = 413) 0 /100 WBC 0 -0 NEUTROPHILS RELATIVE PERCENT (BEAKER) (test code = 429) 81 % LYMPHOCYTES RELATIVE PERCENT (BEAKER) (test code = 430) 8 % MONOCYTES RELATIVE PERCENT (BEAKER) (test code = 431) 10 % EOSINOPHILS RELATIVE PERCENT (BEAKER) (test code = 432) 1 % BASOPHILS RELATIVE PERCENT (BEAKER) (test code = 437) 0 % NEUTROPHILS ABSOLUTE COUNT (BEAKER) (test code = 670) 9.75 K/ L 1.56-6.13 H LYMPHOCYTES ABSOLUTE COUNT (BEAKER) (test code = 414) 0.93 K/ L 1.18-3.74 L MONOCYTES ABSOLUTE COUNT (BEAKER) (test code = 415) 1.21 K/ L 0. 24-0.36 H EOSINOPHILS ABSOLUTE COUNT (BEAKER) (test code = 416) 0.11 K/ L 0.04-0.36 BASOPHILS ABSOLUTE COUNT (BEAKER) (test code = 417) 0.02 K/ L 0. 01-0.08 IMMATURE GRANULOCYTES-RELATIVE PERCENT (BEAKER) (test code = 2801) 1 % 0-1 POCT-GLUCOSE [id number] 01:31:00* Test Item Value Reference Range Interpretation Comments POC-GLUCOSE METER (BEAKER) (test code = 1538) 145 mg/dL 70-110 H : TESTED AT [address], [address]: Director Of Collections And Archives/Residential Advisor ID = [id number] for ISAI CRUZ POCT-GLUCOSE [id number] 21:25:00* Test Item Value Reference Range Interpretation Comments POC-GLUCOSE METER (BEAKER) (test code = 1538) 76 mg/dL 70-110 : TESTED AT [facility] [address] [facility], [address]: Director Of Collections And Archives/Residential Advisor ID = [id number] for JESSICA SINHA POCT-GLUCOSE [id number] 16:59:00* Test Item Value Reference Range Interpretation Comments POC-GLUCOSE METER (BEAKER) (test code = 1538) 98 mg/dL 70-110 : TESTED AT [facility] [address] [facility], [address]: Director Of Collections And Archives/Residential Advisor ID = [id number] for HERNESTO CASTRO POCT-GLUCOSE [id number] 07:42:00* Test Item Value Reference Range Interpretation Comments POC-GLUCOSE METER (BEAKER) (test code = 1538) 79 mg/dL 70-110 : Notified RN/MD: TESTED AT [address], [address]: Director Of Collections And Archives/Residential Advisor ID = [id number] for VERN LAZO BASIC METABOLIC [id number] 06:50:00* Test Item Value Reference Range Interpretation Comments SODIUM (BEAKER) (test code = 381) 137 meq/L 136-145 POTASSIUM (BEAKER) (test code = 379) 3.7 meq/L 3.5-5.1 CHLORIDE (BEAKER) (test code = 382) 101 meq/L 98-107 CO2 (BEAKER) (test code = 355) 28 meq/L 22-29 BLOOD UREA NITROGEN (BEAKER) (test code = 354) 29 mg/dL 7-21 H CREATININE (BEAKER) (test code = 358) 6.15 mg/dL 0.57-1.25 H GLUCOSE RANDOM (BEAKER) (test code = 652) 83 mg/dL 70-105 CALCIUM (BEAKER) (test code = 697) 8.0 mg/dL 8.4-10.2 L EGFR (BEAKER) (test code = 1092) 8 mL/min/1.73 sq m ESTIMATED GFR IS NOT ACCURATE CREATININE CLEARANCE IN PREDICTING GLOMERULAR FILTRATION RATE. ESTIMATED GFR IS NOT APPLICABLE FOR DIALYSIS PATIENTS. CBC W/PLT COUNT & AUTO [id number] 06:05:00* Test Item Value Reference Range Interpretation Comments WHITE BLOOD CELL COUNT (BEAKER) (test code = 775) 8.7 K/ L 3.5- 10.5 RED BLOOD CELL COUNT (BEAKER) (test code = 761) 2.73 M/ L 3.93-5 .22 L HEMOGLOBIN (BEAKER) (test code = 410) 8.1 GM/DL 11.2-15.7 L HEMATOCRIT (BEAKER) (test code = 411) 25.7 % 34.1-44.9 L MEAN CORPUSCULAR VOLUME (BEAKER) (test code = 753) 94.1 fL 79. 4-94.8 MEAN CORPUSCULAR HEMOGLOBIN (BEAKER) (test code = 751) 29.7 pg 25.6-32.2 MEAN CORPUSCULAR HEMOGLOBIN CONC (BEAKER) (test code = 752) 31.5 GM/DL 32.2-35.5 L RED CELL DISTRIBUTION WIDTH (BEAKER) (test code = 412) 15.2 % 11.7-14.4 H PLATELET COUNT (BEAKER) (test code = 756) 229 K/CU MM 150-450 MEAN PLATELET VOLUME (BEAKER) (test code = 754) 11.9 fL 9.4-12 .3 NUCLEATED RED BLOOD CELLS (BEAKER) (test code = 413) 0 /100 WBC 0 -0 NEUTROPHILS RELATIVE PERCENT (BEAKER) (test code = 429) 69 % LYMPHOCYTES RELATIVE PERCENT (BEAKER) (test code = 430) 18 % MONOCYTES RELATIVE PERCENT (BEAKER) (test code = 431) 11 % EOSINOPHILS RELATIVE PERCENT (BEAKER) (test code = 432) 1 % BASOPHILS RELATIVE PERCENT (BEAKER) (test code = 437) 0 % NEUTROPHILS ABSOLUTE COUNT (BEAKER) (test code = 670) 5.94 K/ L 1.56-6.13 LYMPHOCYTES ABSOLUTE COUNT (BEAKER) (test code = 414) 1.60 K/ L 1.18-3.74 MONOCYTES ABSOLUTE COUNT (BEAKER) (test code = 415) 0.94 K/ L 0. 24-0.36 H EOSINOPHILS ABSOLUTE COUNT (BEAKER) (test code = 416) 0.12 K/ L 0.04-0.36 BASOPHILS ABSOLUTE COUNT (BEAKER) (test code = 417) 0.02 K/ L 0. 01-0.08 IMMATURE GRANULOCYTES-RELATIVE PERCENT (BEAKER) (test code = 2801) 1 % 0-1 POCT-GLUCOSE [id number] 22:03:00* Test Item Value Reference Range Interpretation Comments POC-GLUCOSE METER (BEAKER) (test code = 1538) 121 mg/dL 70-110 H : Notified RN/MD: TESTED AT [facility] [address] [facility], [address]: Director Of Collections And Archives/Residential Advisor ID = [id number] for LASHAY MEAD POCT-GLUCOSE [id number] 17:36:00* Test Item Value Reference Range Interpretation Comments POC-GLUCOSE METER (BEAKER) (test code = 1538) 166 mg/dL 70-110 H : TESTED AT [place] [id number] [facility], [address]: Director Of Collections And Archives/Residential Advisor ID = [id number] for LACHELLE IZAGUIRRE POCT-GLUCOSE [id number] 12:33:00* Test Item Value Reference Range Interpretation Comments POC-GLUCOSE METER (BEAKER) (test code = 1538) 109 mg/dL 70-110 : TESTED AT [place] [id number] [facility], [address]: Director Of Collections And Archives/Residential Advisor ID = [id number] for LACHELLE IZAGUIRRE BASIC METABOLIC [id number] 11:49:00* Test Item Value Reference Range Interpretation Comments SODIUM (BEAKER) (test code = 381) 139 meq/L 136-145 POTASSIUM (BEAKER) (test code = 379) 3.7 meq/L 3.5-5.1 CHLORIDE (BEAKER) (test code = 382) 103 meq/L 98-107 CO2 (BEAKER) (test code = 355) 30 meq/L 22-29 H BLOOD UREA NITROGEN (BEAKER) (test code = 354) 24 mg/dL 7-21 H CREATININE (BEAKER) (test code = 358) 5.28 mg/dL 0.57-1.25 H GLUCOSE RANDOM (BEAKER) (test code = 652) 106 mg/dL 70-105 H CALCIUM (BEAKER) (test code = 697) 8.0 mg/dL 8.4-10.2 L EGFR (BEAKER) (test code = 1092) 10 mL/min/1.73 sq m ESTIMATED GFR IS NOT ACCURATE CREATININE CLEARANCE IN PREDICTING GLOMERULAR FILTRATION RATE. ESTIMATED GFR IS NOT APPLICABLE FOR DIALYSIS PATIENTS. CBC W/PLT COUNT & AUTO [id number] 11:10:00* Test Item Value Reference Range Interpretation Comments WHITE BLOOD CELL COUNT (BEAKER) (test code = 775) 8.6 K/ L 3.5- 10.5 RED BLOOD CELL COUNT (BEAKER) (test code = 761) 2.70 M/ L 3.93-5 .22 L HEMOGLOBIN (BEAKER) (test code = 410) 7.9 GM/DL 11.2-15.7 L HEMATOCRIT (BEAKER) (test code = 411) 25.3 % 34.1-44.9 L MEAN CORPUSCULAR VOLUME (BEAKER) (test code = 753) 93.7 fL 79. 4-94.8 MEAN CORPUSCULAR HEMOGLOBIN (BEAKER) (test code = 751) 29.3 pg 25.6-32.2 MEAN CORPUSCULAR HEMOGLOBIN CONC (BEAKER) (test code = 752) 31.2 GM/DL 32.2-35.5 L RED CELL DISTRIBUTION WIDTH (BEAKER) (test code = 412) 14.9 % 11.7-14.4 H PLATELET COUNT (BEAKER) (test code = 756) 196 K/CU MM 150-450 MEAN PLATELET VOLUME (BEAKER) (test code = 754) 11.0 fL 9.4-12 .3 NUCLEATED RED BLOOD CELLS (BEAKER) (test code = 413) 0 /100 WBC 0 -0 NEUTROPHILS RELATIVE PERCENT (BEAKER) (test code = 429) 71 % LYMPHOCYTES RELATIVE PERCENT (BEAKER) (test code = 430) 16 % MONOCYTES RELATIVE PERCENT (BEAKER) (test code = 431) 11 % EOSINOPHILS RELATIVE PERCENT (BEAKER) (test code = 432) 2 % BASOPHILS RELATIVE PERCENT (BEAKER) (test code = 437) 0 % NEUTROPHILS ABSOLUTE COUNT (BEAKER) (test code = 670) 6.09 K/ L 1.56-6.13 LYMPHOCYTES ABSOLUTE COUNT (BEAKER) (test code = 414) 1.37 K/ L 1.18-3.74 MONOCYTES ABSOLUTE COUNT (BEAKER) (test code = 415) 0.93 K/ L 0. 24-0.36 H EOSINOPHILS ABSOLUTE COUNT (BEAKER) (test code = 416) 0.15 K/ L 0.04-0.36 BASOPHILS ABSOLUTE COUNT (BEAKER) (test code = 417) 0.03 K/ L 0. 01-0.08 IMMATURE GRANULOCYTES-RELATIVE PERCENT (BEAKER) (test code = 2801) 1 % 0-1 POCT-GLUCOSE [id number] 07:51:00* Test Item Value Reference Range Interpretation Comments POC-GLUCOSE METER (BEAKER) (test code = 1538) 89 mg/dL 70-110 : TESTED AT [facility] [address] [facility], [address]: Director Of Collections And Archives/Residential Advisor ID = [id number] for LACHELLE IZAGUIRRE POCT-GLUCOSE [id number] 21:23:00* Test Item Value Reference Range Interpretation Comments POC-GLUCOSE METER (BEAKER) (test code = 1538) 126 mg/dL 70-110 H : Notified RN/MD: TESTED AT [address], [address]: Director Of Collections And Archives/Residential Advisor ID = [id number] for LASHAY MEAD HEMODIALYSIS [id number] 18:01:49Alyson Stoddard RN 07/05/2019 6:05 PMTreatment terminated early per patient's insistence. Dr. Nelson was notified who stated have patient sign AMA, which patient signed. Vital signs stable.HD duration 2 hours and 10 minutes UF 0.8 [address]ers [address] left upper arm AV Fistula.Lab Results Component Value Date WBC 9.5 07/05/2019 [...] Temp: 97.5 F (36.4 C) SpO2: 93% [facility] [id number] 13:45:00* Test Item Value Reference Range Interpretation Comments POC-GLUCOSE METER (BEAKER) (test code = 1538) 108 mg/dL 70-110 : TESTED AT [facility] [address] [facility], [address]: Director Of Collections And Archives/Residential Advisor ID = [id number] for FABIO SOLOMON CBC W/PLT COUNT & AUTO [id number] 09:31:00* Test Item Value Reference Range Interpretation Comments WHITE BLOOD CELL COUNT (BEAKER) (test code = 775) 9.5 K/ L 3.5- 10.5 RED BLOOD CELL COUNT (BEAKER) (test code = 761) 3.12 M/ L 3.93-5 .22 L HEMOGLOBIN (BEAKER) (test code = 410) 9.0 GM/DL 11.2-15.7 L HEMATOCRIT (BEAKER) (test code = 411) 29.0 % 34.1-44.9 L MEAN CORPUSCULAR VOLUME (BEAKER) (test code = 753) 92.9 fL 79. 4-94.8 MEAN CORPUSCULAR HEMOGLOBIN (BEAKER) (test code = 751) 28.8 pg 25.6-32.2 MEAN CORPUSCULAR HEMOGLOBIN CONC (BEAKER) (test code = 752) 31.0 GM/DL 32.2-35.5 L RED CELL DISTRIBUTION WIDTH (BEAKER) (test code = 412) 14.8 % 11.7-14.4 H PLATELET COUNT (BEAKER) (test code = 756) 215 K/CU MM 150-450 MEAN PLATELET VOLUME (BEAKER) (test code = 754) 12.1 fL 9.4-12 .3 NUCLEATED RED BLOOD CELLS (BEAKER) (test code = 413) 0 /100 WBC 0 -0 NEUTROPHILS RELATIVE PERCENT (BEAKER) (test code = 429) 75 % LYMPHOCYTES RELATIVE PERCENT (BEAKER) (test code = 430) 13 % MONOCYTES RELATIVE PERCENT (BEAKER) (test code = 431) 10 % EOSINOPHILS RELATIVE PERCENT (BEAKER) (test code = 432) 1 % BASOPHILS RELATIVE PERCENT (BEAKER) (test code = 437) 0 % NEUTROPHILS ABSOLUTE COUNT (BEAKER) (test code = 670) 7.16 K/ L 1.56-6.13 H LYMPHOCYTES ABSOLUTE COUNT (BEAKER) (test code = 414) 1.24 K/ L 1.18-3.74 MONOCYTES ABSOLUTE COUNT (BEAKER) (test code = 415) 0.92 K/ L 0. 24-0.36 H EOSINOPHILS ABSOLUTE COUNT (BEAKER) (test code = 416) 0.13 K/ L 0.04-0.36 BASOPHILS ABSOLUTE COUNT (BEAKER) (test code = 417) 0.03 K/ L 0. 01-0.08 IMMATURE GRANULOCYTES-RELATIVE PERCENT (BEAKER) (test code = 2801) 1 % 0-1 POCT-GLUCOSE [id number] 08:46:00* Test Item Value Reference Range Interpretation Comments POC-GLUCOSE METER (BEAKER) (test code = 1538) 62 mg/dL 70-110 L : TESTED AT [facility] [address] [place], [address]: Director Of Collections And Archives/Residential Advisor ID = [id number] for LACHELLE IZAGUIRRE BASIC METABOLIC [id number] 07:46:00* Test Item Value Reference Range Interpretation Comments SODIUM (BEAKER) (test code = 381) 138 meq/L 136-145 POTASSIUM (BEAKER) (test code = 379) 4.3 meq/L 3.5-5.1 Specimen slightly hemolyzed CHLORIDE (BEAKER) (test code = 382) 100 meq/L 98-107 CO2 (BEAKER) (test code = 355) 26 meq/L 22-29 BLOOD UREA NITROGEN (BEAKER) (test code = 354) 32 mg/dL 7-21 H CREATININE (BEAKER) (test code = 358) 6.07 mg/dL 0.57-1.25 H Specimen slightly hemolyzed GLUCOSE RANDOM (BEAKER) (test code = 652) 64 mg/dL 70-105 L CALCIUM (BEAKER) (test code = 697) 8.4 mg/dL 8.4-10.2 EGFR (BEAKER) (test code = 1092) 8 mL/min/1.73 sq m ESTIMATED GFR IS NOT ACCURATE CREATININE CLEARANCE IN PREDICTING GLOMERULAR FILTRATION RATE. ESTIMATED GFR IS NOT APPLICABLE FOR DIALYSIS PATIENTS. POCT-GLUCOSE [id number] 22:47:00* Test Item Value Reference Range Interpretation Comments POC-GLUCOSE METER (BEAKER) (test code = 1538) 95 mg/dL 70-110 : TESTED AT [facility] [address] [place], [address]: Director Of Collections And Archives/Residential Advisor ID = [id number] for JESSICA SINHA POCT-GLUCOSE [id number] 21:26:00* Test Item Value Reference Range Interpretation Comments POC-GLUCOSE METER (BEAKER) (test code = 1538) 78 mg/dL 70-110 : TESTED AT [facility] [address] [facility] [place], [address]: Director Of Collections And Archives/Residential Advisor ID = [id number] for WALDO JONES POCT-GLUCOSE [id number] 12:31:00* Test Item Value Reference Range Interpretation Comments POC-GLUCOSE METER (BEAKER) (test code = 1538) 95 mg/dL 70-110 : TESTED AT [place] [id number] [facility], [address]: Director Of Collections And Archives/Residential Advisor ID = [id number] for GRACE NELSON POCT-GLUCOSE [id number] 08:45:00* Test Item Value Reference Range Interpretation Comments POC-GLUCOSE METER (BEAKER) (test code = 1538) 96 mg/dL 70-110 : TESTED AT [place] [id number] [facility], [address]: Director Of Collections And Archives/Residential Advisor ID = [id number] for BROWN, GRACE BASIC METABOLIC [id number] 06:50:00* Test Item Value Reference Range Interpretation Comments SODIUM (BEAKER) (test code = 381) 138 meq/L 136-145 POTASSIUM (BEAKER) (test code = 379) 3.8 meq/L 3.5-5.1 CHLORIDE (BEAKER) (test code = 382) 101 meq/L 98-107 CO2 (BEAKER) (test code = 355) 27 meq/L 22-29 BLOOD UREA NITROGEN (BEAKER) (test code = 354) 23 mg/dL 7-21 H CREATININE (BEAKER) (test code = 358) 4.81 mg/dL 0.57-1.25 H GLUCOSE RANDOM (BEAKER) (test code = 652) 87 mg/dL 70-105 CALCIUM (BEAKER) (test code = 697) 8.5 mg/dL 8.4-10.2 EGFR (BEAKER) (test code = 1092) 11 mL/min/1.73 sq m ESTIMATED GFR IS NOT ACCURATE CREATININE CLEARANCE IN PREDICTING GLOMERULAR FILTRATION RATE. ESTIMATED GFR IS NOT APPLICABLE FOR DIALYSIS PATIENTS. CBC W/PLT COUNT & AUTO [id number] 05:59:00* Test Item Value Reference Range Interpretation Comments WHITE BLOOD CELL COUNT (BEAKER) (test code = 775) 9.6 K/ L 3.5- 10.5 RED BLOOD CELL COUNT (BEAKER) (test code = 761) 2.75 M/ L 3.93-5 .22 L HEMOGLOBIN (BEAKER) (test code = 410) 8.0 GM/DL 11.2-15.7 L HEMATOCRIT (BEAKER) (test code = 411) 25.6 % 34.1-44.9 L MEAN CORPUSCULAR VOLUME (BEAKER) (test code = 753) 93.1 fL 79. 4-94.8 MEAN CORPUSCULAR HEMOGLOBIN (BEAKER) (test code = 751) 29.1 pg 25.6-32.2 MEAN CORPUSCULAR HEMOGLOBIN CONC (BEAKER) (test code = 752) 31.3 GM/DL 32.2-35.5 L RED CELL DISTRIBUTION WIDTH (BEAKER) (test code = 412) 14.9 % 11.7-14.4 H PLATELET COUNT (BEAKER) (test code = 756) 184 K/CU MM 150-450 MEAN PLATELET VOLUME (BEAKER) (test code = 754) 12.6 fL 9.4-12 .3 H NUCLEATED RED BLOOD CELLS (BEAKER) (test code = 413) 0 /100 WBC 0 -0 NEUTROPHILS RELATIVE PERCENT (BEAKER) (test code = 429) 74 % LYMPHOCYTES RELATIVE PERCENT (BEAKER) (test code = 430) 13 % MONOCYTES RELATIVE PERCENT (BEAKER) (test code = 431) 11 % EOSINOPHILS RELATIVE PERCENT (BEAKER) (test code = 432) 2 % BASOPHILS RELATIVE PERCENT (BEAKER) (test code = 437) 0 % NEUTROPHILS ABSOLUTE COUNT (BEAKER) (test code = 670) 7.08 K/ L 1.56-6.13 H LYMPHOCYTES ABSOLUTE COUNT (BEAKER) (test code = 414) 1.28 K/ L 1.18-3.74 MONOCYTES ABSOLUTE COUNT (BEAKER) (test code = 415) 1.03 K/ L 0. 24-0.36 H EOSINOPHILS ABSOLUTE COUNT (BEAKER) (test code = 416) 0.17 K/ L 0.04-0.36 BASOPHILS ABSOLUTE COUNT (BEAKER) (test code = 417) 0.02 K/ L 0. 01-0.08 IMMATURE GRANULOCYTES-RELATIVE PERCENT (BEAKER) (test code = 2801) 1 % 0-1 POCT-GLUCOSE [id number] 21:23:00* Test Item Value Reference Range Interpretation Comments POC-GLUCOSE METER (BEAKER) (test code = 1538) 134 mg/dL 70-110 H : Notified RN/MD: TESTED AT [facility] [address] [facility], [address]: Director Of Collections And Archives/Residential Advisor ID = [id number] for LASHAY MEAD POCT-GLUCOSE [id number] 17:06:00* Test Item Value Reference Range Interpretation Comments POC-GLUCOSE METER (BEAKER) (test code = 1538) 106 mg/dL 70-110 : TESTED AT [facility] [address] [facility], [address]: Director Of Collections And Archives/Residential Advisor ID = [id number] for DARON GOMEZ CT, BRAIN, WITHOUT [id number] 12:58:00Please have CTH done after dialysisReason for exam:->strokeWhat is the patient's sedation requirement?->No SedationFINAL REPORT CT, BRAIN, WITHOUT CONTRAST CLINICAL INDICATION: Stroke, follow upstroke COMPARISON: June 29, 2019 TECHNIQUE: Noncontrast axial CT imaging of the brain and skull. DOSE REDUCTION: Dose modulation, iterative reconstruction, and/or weight-based adjustment of the mA/kV was utilized to reduce the radiation dose to as low as reasonably achievable. FINDINGS:Although CT is suboptimal for evaluation of the posterior fossa there is apparent hypoattenuation within the left middle cerebellar peduncle and cerebellar hemisphere. This may be artifactual and correlation with MRI is suggested. No intracranial hemorrhage, midline shift or mass effect. Midline structures are normally developed. Mild chronic microvascular ischemic changes of the periventricular and subcortical white matter are present. No hydrocephalus. Orbits are within normal limits. Atherosclerotic calcification of the intracranial internal carotid and vertebral arteries. No obstructive paranasal sinus disease. IMPRESSION: Although CT is suboptimal for evaluation of the posterior fossa there is apparent hypoattenuation within the left middle cerebellar peduncle and cerebellar hemisphere. This may be artifactual and correlation with MRI is suggested. No intracranial hemorrhage. If there is persistent clinical concern for intracranial pathology, MR examination is recommended for further characterization. Signed: Hernesto Paul MDRcarlo Verified Date/Time: 07/03/2019 12:58:05 Reading Location: [facility] Radiology Reading Room -GLUCOSE [id number] 11:10:00* Test Item Value Reference Range Interpretation Comments POC-GLUCOSE METER (BEAKER) (test code = 1538) 88 mg/dL 70-110 : TESTED AT [facility] [address] [facility], [address]: Director Of Collections And Archives/Residential Advisor ID = [id number] for JESSICA SINHA BASIC METABOLIC [id number] 06:45:00* Test Item Value Reference Range Interpretation Comments SODIUM (BEAKER) (test code = 381) 137 meq/L 136-145 POTASSIUM (BEAKER) (test code = 379) 4.3 meq/L 3.5-5.1 CHLORIDE (BEAKER) (test code = 382) 100 meq/L 98-107 CO2 (BEAKER) (test code = 355) 29 meq/L 22-29 BLOOD UREA NITROGEN (BEAKER) (test code = 354) 55 mg/dL 7-21 H CREATININE (BEAKER) (test code = 358) 8.27 mg/dL 0.57-1.25 H GLUCOSE RANDOM (BEAKER) (test code = 652) 80 mg/dL 70-105 CALCIUM (BEAKER) (test code = 697) 7.9 mg/dL 8.4-10.2 L EGFR (BEAKER) (test code = 1092) 6 mL/min/1.73 sq m ESTIMATED GFR IS NOT ACCURATE CREATININE CLEARANCE IN PREDICTING GLOMERULAR FILTRATION RATE. ESTIMATED GFR IS NOT APPLICABLE FOR DIALYSIS PATIENTS. LIPID [id number] 06:44:00* Test Item Value Reference Range Interpretation Comments TRIGLYCERIDES (BEAKER) (test code = 540) 137 mg/dL CHOLESTEROL (BEAKER) (test code = 631) 113 mg/dL HDL CHOLESTEROL (BEAKER) (test code = 976) 32 mg/dL LDL CHOLESTEROL CALCULATED (BEAKER) (test code = 633) 54 mg/dL Triglyceride Reference Range: Low Risk <150 Borderline 150-199 High Risk 200-499 Very High Risk >=500Cholesterol Reference Range: Low Risk <200 Borderline 200-239 High Risk >240HDL Cholesterol Reference Range: Low Risk >=60 High Risk <40LDL Cholesterol Reference Range: Optimal <100 Near Optimal 100-129 Borderline 130-159 High 160-189 Very High >=190 CBC W/PLT COUNT & AUTO [id number] 06:14:00* Test Item Value Reference Range Interpretation Comments WHITE BLOOD CELL COUNT (BEAKER) (test code = 775) 8.2 K/ L 3.5- 10.5 RED BLOOD CELL COUNT (BEAKER) (test code = 761) 2.70 M/ L 3.93-5 .22 L HEMOGLOBIN (BEAKER) (test code = 410) 7.8 GM/DL 11.2-15.7 L HEMATOCRIT (BEAKER) (test code = 411) 25.2 % 34.1-44.9 L MEAN CORPUSCULAR VOLUME (BEAKER) (test code = 753) 93.3 fL 79. 4-94.8 MEAN CORPUSCULAR HEMOGLOBIN (BEAKER) (test code = 751) 28.9 pg 25.6-32.2 MEAN CORPUSCULAR HEMOGLOBIN CONC (BEAKER) (test code = 752) 31.0 GM/DL 32.2-35.5 L RED CELL DISTRIBUTION WIDTH (BEAKER) (test code = 412) 15.1 % 11.7-14.4 H PLATELET COUNT (BEAKER) (test code = 756) 169 K/CU MM 150-450 MEAN PLATELET VOLUME (BEAKER) (test code = 754) 12.9 fL 9.4-12 .3 H NUCLEATED RED BLOOD CELLS (BEAKER) (test code = 413) 0 /100 WBC 0 -0 NEUTROPHILS RELATIVE PERCENT (BEAKER) (test code = 429) 70 % LYMPHOCYTES RELATIVE PERCENT (BEAKER) (test code = 430) 18 % MONOCYTES RELATIVE PERCENT (BEAKER) (test code = 431) 10 % EOSINOPHILS RELATIVE PERCENT (BEAKER) (test code = 432) 2 % BASOPHILS RELATIVE PERCENT (BEAKER) (test code = 437) 0 % NEUTROPHILS ABSOLUTE COUNT (BEAKER) (test code = 670) 5.80 K/ L 1.56-6.13 LYMPHOCYTES ABSOLUTE COUNT (BEAKER) (test code = 414) 1.44 K/ L 1.18-3.74 MONOCYTES ABSOLUTE COUNT (BEAKER) (test code = 415) 0.80 K/ L 0. 24-0.36 H EOSINOPHILS ABSOLUTE COUNT (BEAKER) (test code = 416) 0.17 K/ L 0.04-0.36 BASOPHILS ABSOLUTE COUNT (BEAKER) (test code = 417) 0.01 K/ L 0. 01-0.08 IMMATURE GRANULOCYTES-RELATIVE PERCENT (BEAKER) (test code = 2801) 0 % 0-1 HEMOGLOBIN AND [id number] 19:07:00* Test Item Value Reference Range Interpretation Comments HEMOGLOBIN (BEAKER) (test code = 410) 7.4 GM/DL 11.2-15.7 L HEMATOCRIT (BEAKER) (test code = 411) 23.4 % 34.1-44.9 L Check at least 1 hour after blood transfusion completePOCT-GLUCOSE METER 2019-07-02 16:32:00* Test Item Value Reference Range Interpretation Comments POC-GLUCOSE METER (BEAKER) (test code = 1538) 157 mg/dL 70-110 H : TESTED AT [address], [address]: Director Of Collections And Archives/Residential Advisor ID = [id number] for Najmi, Royal EEG AWAKE AND [id number] 11:14:00Reason for exam:->Waxing/waning mentation, AMSShould this be performed at the bedside?->YesEEG REPORT: Zeyad Angela Nelson, 74 yrsMRN:[id number] of EEDate of report: Test location: Inpatient - ICUEEG start time: 1030EEG end time: 1051EEG #: [id number] Code: #: R41.82 Altered mental status, unspecified (ICD 9: 780.97)CPT Code: #: 31061: 01. EEG awake and drowsy; 20-40 minPROCEDURE: EEG HISTORY: waxing/waning mentation, AMS. 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 Scalp to scalp and scalp to ear montages were used. DESCRIPTION OF RECORD: In the best awake state, a Posterior Dominant Rhythm (PDR) was present at 8-9 cycles/ second. No epile ptiform discharges were noted. No clinical or electrographic seizures were noted .SLEEP The patient was drowsy during the recording.HYPERVENTILATION: Hyperventil ation was not performed.PHOTIC STIMULATION: Photic stimulation did not result in a driving response.EKG: The heart rate was 72/ min.IMPRESSION:This EEG in wakef ulness and drowsiness is within the range of normal variation. No seizures or ep ileptiform activity were seen.COMMENT:A normal EEG does not rule out the diagnos is of a seizure disorder. Further clinical correlation is suggested.Neurophysiol ogist: Yaniv Butcher Electronically signed by: YANIV BUTCHER on 9 11:14 AM EEG AWAKE AND [id number] 11:14:00Interface, External Ris In - 07/02/2019 11:15 AM CSTEEG REPORT: Angela Jeffers, 74 yrsMRN:[id number] of EEDate of report: Test location: Inpatient - ICUEEG start time: 0EEG end time: 1051EEG #: [id number] Code: #: R41.82 Altered mental status, unspecified (ICD 9: 780.97)CPT Code: #: 94193: 01. EEG awake and drowsy; 20-40 minPROCEDURE: EEG HISTORY: waxing/waning mentation, AMS. 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 Scalp to scalp and scalp to ear montages were used. DESCRIPTION OF RECORD: In the best awake state, a Posterior Dominant Rhyt hm (PDR) was present at 8-9 cycles/ second. No epileptiform discharges were note d. No clinical or electrographic seizures were noted.SLEEP The patient was drows y during the recording.HYPERVENTILATION: Hyperventilation was not performed.PHOT IC STIMULATION: Photic stimulation did not result in a driving response.EKG: The heart rate was 72/ min.IMPRESSION:This EEG in wakefulness and drowsiness is wit hin the range of normal variation. No seizures or epileptiform activity were see n.COMMENT:A normal EEG does not rule out the diagnosis of a seizure disorder. Fu rther clinical correlation is suggested.Neurophysiologist: Yaniv Butcher [facility] [id number] 10:14:00* Test Item Value Reference Range Interpretation Comments POC-GLUCOSE METER (BEAKER) (test code = 1538) 181 mg/dL 70-110 H : TESTED AT [address], [address]: Director Of Collections And Archives/Residential Advisor ID = [id number] for Royal Licea POCT-GLUCOSE [id number] 06:04:00* Test Item Value Reference Range Interpretation Comments POC-GLUCOSE METER (BEAKER) (test code = 1538) 200 mg/dL 70-110 H : Notified RN/MD: TESTED AT [address], [address]: Director Of Collections And Archives/Residential Advisor ID = [id number] for LASHAY MEDA BASIC METABOLIC [id number] 05:25:00* Test Item Value Reference Range Interpretation Comments SODIUM (BEAKER) (test code = 381) 138 meq/L 136-145 POTASSIUM (BEAKER) (test code = 379) 4.3 meq/L 3.5-5.1 CHLORIDE (BEAKER) (test code = 382) 101 meq/L 98-107 CO2 (BEAKER) (test code = 355) 28 meq/L 22-29 BLOOD UREA NITROGEN (BEAKER) (test code = 354) 47 mg/dL 7-21 H CREATININE (BEAKER) (test code = 358) 7.47 mg/dL 0.57-1.25 H GLUCOSE RANDOM (BEAKER) (test code = 652) 204 mg/dL 70-105 H CALCIUM (BEAKER) (test code = 697) 8.0 mg/dL 8.4-10.2 L EGFR (BEAKER) (test code = 1092) 6 mL/min/1.73 sq m ESTIMATED GFR IS NOT ACCURATE CREATININE CLEARANCE IN PREDICTING GLOMERULAR FILTRATION RATE. ESTIMATED GFR IS NOT APPLICABLE FOR DIALYSIS PATIENTS. [id number] 05:20:00* Test Item Value Reference Range Interpretation Comments FERRITIN (BEAKER) (test code = 361) 1676 ng/mL 5-275 H PTH, [id number] 05:05:00* Test Item Value Reference Range Interpretation Comments PTH (test code = 2731-8) 67.3 pg/mL 8.5-72.5 Lab Interpretation (test code = 53814-7) [facility] [id number] 05:05:00* Test Item Value Reference Range Interpretation Comments PARATHYROID HORMONE INTACT (BEAKER) (test code = 577) 67.3 pg/mL 8.5-72.5 CBC W/PLT COUNT & AUTO [id number] 04:59:00* Test Item Value Reference Range Interpretation Comments WHITE BLOOD CELL COUNT (BEAKER) (test code = 775) 7.9 K/ L 3.5- 10.5 RED BLOOD CELL COUNT (BEAKER) (test code = 761) 2.43 M/ L 3.93-5 .22 L HEMOGLOBIN (BEAKER) (test code = 410) 6.9 GM/DL 11.2-15.7 L HEMATOCRIT (BEAKER) (test code = 411) 23.0 % 34.1-44.9 L MEAN CORPUSCULAR VOLUME (BEAKER) (test code = 753) 94.7 fL 79. 4-94.8 MEAN CORPUSCULAR HEMOGLOBIN (BEAKER) (test code = 751) 28.4 pg 25.6-32.2 MEAN CORPUSCULAR HEMOGLOBIN CONC (BEAKER) (test code = 752) 30.0 GM/DL 32.2-35.5 L RED CELL DISTRIBUTION WIDTH (BEAKER) (test code = 412) 15.0 % 11.7-14.4 H PLATELET COUNT (BEAKER) (test code = 756) 154 K/CU MM 150-450 MEAN PLATELET VOLUME (BEAKER) (test code = 754) 12.8 fL 9.4-12 .3 H NUCLEATED RED BLOOD CELLS (BEAKER) (test code = 413) 0 /100 WBC 0 -0 NEUTROPHILS RELATIVE PERCENT (BEAKER) (test code = 429) 78 % LYMPHOCYTES RELATIVE PERCENT (BEAKER) (test code = 430) 12 % MONOCYTES RELATIVE PERCENT (BEAKER) (test code = 431) 8 % EOSINOPHILS RELATIVE PERCENT (BEAKER) (test code = 432) 2 % BASOPHILS RELATIVE PERCENT (BEAKER) (test code = 437) 0 % NEUTROPHILS ABSOLUTE COUNT (BEAKER) (test code = 670) 6.16 K/ L 1.56-6.13 H LYMPHOCYTES ABSOLUTE COUNT (BEAKER) (test code = 414) 0.94 K/ L 1.18-3.74 L MONOCYTES ABSOLUTE COUNT (BEAKER) (test code = 415) 0.60 K/ L 0. 24-0.36 H EOSINOPHILS ABSOLUTE COUNT (BEAKER) (test code = 416) 0.13 K/ L 0.04-0.36 BASOPHILS ABSOLUTE COUNT (BEAKER) (test code = 417) 0.01 K/ L 0. 01-0.08 IMMATURE GRANULOCYTES-RELATIVE PERCENT (BEAKER) (test code = 2801) 0 % 0-1 IRON, TIBC, % SAT. (WITHOUT FERRITIN)2019-07-02 04:59:00* Test Item Value Reference Range Interpretation Comments IRON (BEAKER) (test code = 547) 38.0 ug/dL 40.0-160.0 L TOTAL IRON BINDING CAPACITY (BEAKER) (test code = 769) 139 ug/dL 250-450 L IRON % SATURATION (2) (BEAKER) (test code = 2590) 27 % 20-5 5 POCT-GLUCOSE [id number] 23:27:00* Test Item Value Reference Range Interpretation Comments POC-GLUCOSE METER (BEAKER) (test code = 1538) 175 mg/dL 70-110 H : Notified RN/MD: TESTED AT [address], [address]: Director Of Collections And Archives/Residential Advisor ID = [id number] for LATKONSTANTINRIDGE LASHAY POCT-GLUCOSE [id number] 18:46:00* Test Item Value Reference Range Interpretation Comments POC-GLUCOSE METER (BEAKER) (test code = 1538) 183 mg/dL 70-110 H : TESTED AT [address], [address]: Director Of Collections And Archives/Residential Advisor ID = [id number] for RADHANENITA HEMOGLOBIN AND [id number] 16:55:00* Test Item Value Reference Range Interpretation Comments HEMOGLOBIN (BEAKER) (test code = 410) 7.5 GM/DL 11.2-15.7 L HEMATOCRIT (BEAKER) (test code = 411) 25.7 % 34.1-44.9 L POCT-GLUCOSE [id number] 13:04:00* Test Item Value Reference Range Interpretation Comments POC-GLUCOSE METER (BEAKER) (test code = 1538) 180 mg/dL 70-110 H : TESTED AT [facility] [address] [facility], [address]: Director Of Collections And Archives/Residential Advisor ID = [id number] for NENITA GARCIA POCT-GLUCOSE [id number] 08:53:00* Test Item Value Reference Range Interpretation Comments POC-GLUCOSE METER (BEAKER) (test code = 1538) 172 mg/dL 70-110 H : Notified RN/MD: TESTED AT [address], [address]: Director Of Collections And Archives/Residential Advisor ID = [id number] for NENITA GARCIA BASIC METABOLIC [id number] 04:03:00* Test Item Value Reference Range Interpretation Comments SODIUM (BEAKER) (test code = 381) 138 meq/L 136-145 POTASSIUM (BEAKER) (test code = 379) 4.5 meq/L 3.5-5.1 Specimen slightly hemolyzed CHLORIDE (BEAKER) (test code = 382) 101 meq/L 98-107 CO2 (BEAKER) (test code = 355) 26 meq/L 22-29 BLOOD UREA NITROGEN (BEAKER) (test code = 354) 38 mg/dL 7-21 H CREATININE (BEAKER) (test code = 358) 6.41 mg/dL 0.57-1.25 H Specimen slightly hemolyzed GLUCOSE RANDOM (BEAKER) (test code = 652) 160 mg/dL 70-105 H CALCIUM (BEAKER) (test code = 697) 8.2 mg/dL 8.4-10.2 L EGFR (BEAKER) (test code = 1092) 8 mL/min/1.73 sq m ESTIMATED GFR IS NOT ACCURATE CREATININE CLEARANCE IN PREDICTING GLOMERULAR FILTRATION RATE. ESTIMATED GFR IS NOT APPLICABLE FOR DIALYSIS PATIENTS. CBC W/PLT COUNT & AUTO [id number] 03:58:00* Test Item Value Reference Range Interpretation Comments WHITE BLOOD CELL COUNT (BEAKER) (test code = 775) 10.3 K/ L 3.5- 10.5 RED BLOOD CELL COUNT (BEAKER) (test code = 761) 2.58 M/ L 3.93-5 .22 L HEMOGLOBIN (BEAKER) (test code = 410) 7.4 GM/DL 11.2-15.7 L HEMATOCRIT (BEAKER) (test code = 411) 24.5 % 34.1-44.9 L MEAN CORPUSCULAR VOLUME (BEAKER) (test code = 753) 95.0 fL 79. 4-94.8 H Discordant MCV result compared to previous result; clinical correlation required. MEAN CORPUSCULAR HEMOGLOBIN (BEAKER) (test code = 751) 28.7 pg 25.6-32.2 MEAN CORPUSCULAR HEMOGLOBIN CONC (BEAKER) (test code = 752) 30.2 GM/DL 32.2-35.5 L RED CELL DISTRIBUTION WIDTH (BEAKER) (test code = 412) 15.5 % 11.7-14.4 H PLATELET COUNT (BEAKER) (test code = 756) 151 K/CU MM 150-450 MEAN PLATELET VOLUME (BEAKER) (test code = 754) 12.6 fL 9.4-12 .3 H NUCLEATED RED BLOOD CELLS (BEAKER) (test code = 413) 0 /100 WBC 0 -0 NEUTROPHILS RELATIVE PERCENT (BEAKER) (test code = 429) 76 % LYMPHOCYTES RELATIVE PERCENT (BEAKER) (test code = 430) 11 % MONOCYTES RELATIVE PERCENT (BEAKER) (test code = 431) 12 % EOSINOPHILS RELATIVE PERCENT (BEAKER) (test code = 432) 1 % BASOPHILS RELATIVE PERCENT (BEAKER) (test code = 437) 0 % NEUTROPHILS ABSOLUTE COUNT (BEAKER) (test code = 670) 7.83 K/ L 1.56-6.13 H LYMPHOCYTES ABSOLUTE COUNT (BEAKER) (test code = 414) 1.16 K/ L 1.18-3.74 L MONOCYTES ABSOLUTE COUNT (BEAKER) (test code = 415) 1.18 K/ L 0. 24-0.36 H EOSINOPHILS ABSOLUTE COUNT (BEAKER) (test code = 416) 0.05 K/ L 0.04-0.36 BASOPHILS ABSOLUTE COUNT (BEAKER) (test code = 417) 0.02 K/ L 0. 01-0.08 IMMATURE GRANULOCYTES-RELATIVE PERCENT (BEAKER) (test code = 2801) 0 % 0-1 HEMOGLOBIN AND [id number] 01:13:00* Test Item Value Reference Range Interpretation Comments HEMOGLOBIN (BEAKER) (test code = 410) 7.0 GM/DL 11.2-15.7 L HEMATOCRIT (BEAKER) (test code = 411) 22.9 % 34.1-44.9 L HEMOGLOBIN AND [id number] 19:09:00* Test Item Value Reference Range Interpretation Comments HEMOGLOBIN (BEAKER) (test code = 410) 7.0 GM/DL 11.2-15.7 L HEMATOCRIT (BEAKER) (test code = 411) 22.1 % 34.1-44.9 L POCT-GLUCOSE [id number] 18:46:00* Test Item Value Reference Range Interpretation Comments POC-GLUCOSE METER (BEAKER) (test code = 1538) 134 mg/dL 70-110 H : TESTED AT [address], [address]: Director Of Collections And Archives/Residential Advisor ID = [id number] for NENITA GARCIA Transthoracic 2D echo w contrast & [id number] 16:05:38Ejection FractionSLEH ECHO HEARTLAB MKCKESSON CPACSInterface, External Ris In - 06/30/2019 4:05 PM CSTTransthoracic Echocardiography Report (TTE) Demographics Patient Name ANGELA JEFFERS Date of Study 06/30/2019 [facility] Gender Female Visit Number [id number] Race Black 8 Room Number [id number] Number Date of 1945 Referring Physician Charbel Harris Age 74 year(s) Sonograp her Gabrielle Sumahem RDCS Interpreting Joan Loyd MD Physician Fellow Princess Stephens MD Procedure Type of Study TTE proc edure:2DECHO W/CONTRAST & DOPPLER (Routine) Indications:Stroke .Clinical HistoryCOPD;DM;DCHF;ESRD;HTN;HYPOTHYROID;MO;DAVID.Contrast Medium: Bubble Study.Height: 65 inches Weight: 99.79 kg (220 lbs) BSA: 2.06 m^2 BMI: 36.61 kg/m^2HR: 71 bpm BP: 178/78 mmHg Previous Study Compared to the previous study there was no significant change. Signature ----- Findings Left Vent ricle The LV endocardium is adequately visualized. The left ventricle is chamber size (by vol index) is no rmal (female - LVED vol - 29-61ml/m2). Moderate concentri c LV hypertrophy. All of the LV segments contract normall y . LVEF by Garcia's method of disk assessment is normal (55-60%) . Grade 1 diastolic dysf unction (impaired relaxation and low-normal LA pressure). Left Atrium LA is adequately visualized. LA size is mildly enlarged (35-41 ml/m2) . Right Ventricle The right ventri cular chamber size and systolic function are within sidney l limits. Right Atrium RA size is normal. Atrial Septum The interatrial septum is adequately visualized. IV saline c ontrast injection was negative for a PFO (patent foramen ovale) at rest and post Valsalva . Aortic Valve Mild AoV cusp thicken ing. Mild AoV cusp calcification. Mitral Valve Mild MV leaflet thickening. Mild mitral annular calcific ation. Trace mitral regurgitation. Tricuspid Valve TV structure is normal. A trace of tricuspid regurgitat ion. Estimated peak systolic PA pressure cannot be determined due to inadequate TR velocity signal . Pulmonic Nancy ve Normal PV structure appears normal by available views. A trace of pulmonary regurgitation. Aorta Aortic root size (SInus of Valsalva diameter) is normal . Proximal ascending aorta size is mildly dilated measuring 3.8cm. Pericardium No significant pericardial effusion is visualized. IVC/SVC/PA/PV/Pleural The estimated RA pressure by IVC dynamics 0-5mmHg . Chambers/Structures Left Atrium LA Volume: 8 3.64 ml LA Area: 25.43 cm^2 LA Vol. Index: 41 ml/m^2 Left V entricle LVIDd: 4.21 cm LVEDV:79.14 ml LVIDs: 2. 94 cm LVESV:25.44 ml LV Septum Diastolic: 1.56 cm LVEF 2D Cube: 66 % LV PW Diastolic: 1.62 cm LVEDV Garcia's:95 .3 ml LV FS: 30.2 % LVESV Garcia's:35.13 ml LVEF Garcia' s: 63.1 % LVEDVI: 46 ml/m^2 LVESVI: 17 [...] CO: 12.79 l/min LVOT CI: 6.21 l/min/m^2 [facility] [id number] 14:23:36Ejection FractionSLEH ECHO HEARTLAB MKCKESSON CPACS Left Impression1. There is no pseudoaneurysm visualized.2. There is no hematoma visualized.3. There is no ve nous obstruction or arteriovenous fistula visualized.4. The common femoral arter y flow is biphasic with a velocity of 149 cm/sec.(within normal range). Conclus ions Summary Duplex imaging of the left groin area was performed. The vessels were technically difficult to visualize. There was no evidence of a pseudoaneury sm, venous obstruction or arteriovenous fistula in the left groin area. Signatu re Electronica lly signed by Bianka Cheema MD(Interpreting physician) on 06/30/2019 02:23 PM Velocities are measured in cm/s ; Diameters are measured in cm Interface, External Ris In - 2:23 PM CSTPV LAB - Pseudoaneurysm Survey Demographics Patient Name ANGELA JEFFERS Date of Study 06/29/2019 OMAR Age 74 Visit Number [id number] Gender Female Accession Number [id number] Date of 1945 Referring Charbel Acevedo Room Number 7403 Physician Plaque Maker Tracy Ho [facility] Interpreting Bianka Cheema MD Physician ProcedureType of Study: Pseudoaneurysm: PSEUDOANEURYSM, GROIN DOPPLER LEFT. Indications for Study:R/O pseudoaneurysm .Patient Status:Routine.Study Location:Portable.Technical Quality :Technically Difficult.Risk FactorsHistory of Disease+ +----+----- +!Diagnosis !Date!Comments !+ +----+ +!History/Risk ! !DM, HTN, HLD, CKD , Volume Overload, ESRD,S/P Right !!Factors: ! !subclavian area dialy sis catheter placement !! ! !01/2015,Morbid obesity !+ +----+ +ImpressionsLeft Impression1. There is no pseudoaneurysm visualized.2. There is no hematoma visualized.3. There is no venous obstruction or arteriovenous fistula visualized.4. The common femoral artery flow is biphas ic with a velocity of 149 cm/sec.(within normal range). Conclusions Summary Du plex imaging of the left groin area was performed. The vessels were technically difficult to visualize. There was no evidence of a pseudoaneurysm, venous obstru ction or arteriovenous fistula in the left groin area. Signature Velocities are measured in cm/s ; Diameters are measured in [facility] 2019-06[facility] 12:23:00* Test Item Value Reference Range Interpretation Comments POC-GLUCOSE METER (BEAKER) (test code = 1538) 166 mg/dL 70-110 H : TESTED AT [facility] [address] [facility] [facility], [address]: Director Of Collections And Archives/Residential Advisor ID = [id number] for NENITA GARCIA HEMOGLOBIN AND [id number] 11:37:00* Test Item Value Reference Range Interpretation Comments HEMOGLOBIN (BEAKER) (test code = 410) 7.0 GM/DL 11.2-15.7 L HEMATOCRIT (BEAKER) (test code = 411) 22.0 % 34.1-44.9 L POCT-GLUCOSE [id number] 08:51:00* Test Item Value Reference Range Interpretation Comments POC-GLUCOSE METER (BEAKER) (test code = 1538) 168 mg/dL 70-110 H : TESTED AT [facility] [address] [facility], [address]: Director Of Collections And Archives/Residential Advisor ID = [id number] for NENITA GARCIA BASIC METABOLIC [id number] 05:24:00* Test Item Value Reference Range Interpretation Comments SODIUM (BEAKER) (test code = 381) 135 meq/L 136-145 L POTASSIUM (BEAKER) (test code = 379) 5.3 meq/L 3.5-5.1 H CHLORIDE (BEAKER) (test code = 382) 97 meq/L 98-107 L CO2 (BEAKER) (test code = 355) 25 meq/L 22-29 BLOOD UREA NITROGEN (BEAKER) (test code = 354) 62 mg/dL 7-21 H CREATININE (BEAKER) (test code = 358) 9.22 mg/dL 0.57-1.25 H GLUCOSE RANDOM (BEAKER) (test code = 652) 192 mg/dL 70-105 H CALCIUM (BEAKER) (test code = 697) 8.3 mg/dL 8.4-10.2 L EGFR (BEAKER) (test code = 1092) 5 mL/min/1.73 sq m ESTIMATED GFR IS NOT ACCURATE CREATININE CLEARANCE IN PREDICTING GLOMERULAR FILTRATION RATE. ESTIMATED GFR IS NOT APPLICABLE FOR DIALYSIS PATIENTS. [id number] 05:19:00* Test Item Value Reference Range Interpretation Comments PHOSPHORUS (BEAKER) (test code = 604) 6.2 mg/dL 2.3-4.7 H [id number] 05:19:00* Test Item Value Reference Range Interpretation Comments MAGNESIUM (BEAKER) (test code = 627) 2.1 mg/dL 1.6-2.6 CBC W/PLT COUNT & AUTO [id number] 04:44:00* Test Item Value Reference Range Interpretation Comments WHITE BLOOD CELL COUNT (BEAKER) (test code = 775) 10.6 K/ L 3.5- 10.5 H RED BLOOD CELL COUNT (BEAKER) (test code = 761) 2.73 M/ L 3.93-5 .22 L HEMOGLOBIN (BEAKER) (test code = 410) 7.6 GM/DL 11.2-15.7 L HEMATOCRIT (BEAKER) (test code = 411) 24.6 % 34.1-44.9 L MEAN CORPUSCULAR VOLUME (BEAKER) (test code = 753) 90.1 fL 79. 4-94.8 MEAN CORPUSCULAR HEMOGLOBIN (BEAKER) (test code = 751) 27.8 pg 25.6-32.2 MEAN CORPUSCULAR HEMOGLOBIN CONC (BEAKER) (test code = 752) 30.9 GM/DL 32.2-35.5 L RED CELL DISTRIBUTION WIDTH (BEAKER) (test code = 412) 15.3 % 11.7-14.4 H PLATELET COUNT (BEAKER) (test code = 756) 167 K/CU MM 150-450 MEAN PLATELET VOLUME (BEAKER) (test code = 754) 12.2 fL 9.4-12 .3 NUCLEATED RED BLOOD CELLS (BEAKER) (test code = 413) 0 /100 WBC 0 -0 NEUTROPHILS RELATIVE PERCENT (BEAKER) (test code = 429) 78 % LYMPHOCYTES RELATIVE PERCENT (BEAKER) (test code = 430) 12 % MONOCYTES RELATIVE PERCENT (BEAKER) (test code = 431) 10 % EOSINOPHILS RELATIVE PERCENT (BEAKER) (test code = 432) 0 % BASOPHILS RELATIVE PERCENT (BEAKER) (test code = 437) 0 % NEUTROPHILS ABSOLUTE COUNT (BEAKER) (test code = 670) 8.26 K/ L 1.56-6.13 H LYMPHOCYTES ABSOLUTE COUNT (BEAKER) (test code = 414) 1.29 K/ L 1.18-3.74 MONOCYTES ABSOLUTE COUNT (BEAKER) (test code = 415) 1.03 K/ L 0. 24-0.36 H EOSINOPHILS ABSOLUTE COUNT (BEAKER) (test code = 416) 0.00 K/ L 0.04-0.36 L BASOPHILS ABSOLUTE COUNT (BEAKER) (test code = 417) 0.01 K/ L 0. 01-0.08 IMMATURE GRANULOCYTES-RELATIVE PERCENT (BEAKER) (test code = 2801) 1 % 0-1 HEMOGLOBIN AND [id number] 00:47:00* Test Item Value Reference Range Interpretation Comments HEMOGLOBIN (BEAKER) (test code = 410) 7.6 GM/DL 11.2-15.7 L HEMATOCRIT (BEAKER) (test code = 411) 24.6 % 34.1-44.9 L POCT-GLUCOSE [id number] 18:57:00* Test Item Value Reference Range Interpretation Comments POC-GLUCOSE METER (BEAKER) (test code = 1538) 209 mg/dL 70-110 H : TESTED AT [facility] [address] [facility], [address]: Director Of Collections And Archives/Residential Advisor ID = [id number] for Kinga Moser HEMOGLOBIN AND [id number] 18:39:00* Test Item Value Reference Range Interpretation Comments HEMOGLOBIN (BEAKER) (test code = 410) 6.8 GM/DL 11.2-15.7 L HEMATOCRIT (BEAKER) (test code = 411) 21.5 % 34.1-44.[address], BRAIN, WITHOUT [id number] 15:58:00FINAL REPORT CT Head without contrast CLINICAL HISTORY: Stroke TECHNIQUE: Contiguous axial CT images through the head without contrast. This exam was performed according to the departmental dose optimization program which includes automated exposure control, adjustment of the mA and/or kV according to the patient size, and/or use of an iterative reconstruction technique. COMPARISON: 06/28/2019 FINDINGS: The study is severely motion degraded despite repeat imaging. As such, acute infarction and hemorrhage cannot be excluded. Previous asymmetric lucency of the right midfrontal lobe is grossly again seen. The skull appears intact. IMPRESSION: Motion degraded and essentially nondiagnostic exam. Repeat imaging is recommended when the patient is better able to tolerate. Signed: Cris Dow MDReport Verified Date/Time: 06/29/2019 15:58:45 Reading Location: [address] Neuro Reading Room -GLUCOSE [id number] 11:59:00* Test Item Value Reference Range Interpretation Comments POC-GLUCOSE METER (BEAKER) (test code = 1538) 216 mg/dL 70-110 H : TESTED AT [facility] [address] [facility], [address]: Director Of Collections And Archives/Residential Advisor ID = [id number] for Kinga Moser HEMOGLOBIN AND [id number] 11:22:00* Test Item Value Reference Range Interpretation Comments HEMOGLOBIN (BEAKER) (test code = 410) 7.2 GM/DL 11.2-15.7 L HEMATOCRIT (BEAKER) (test code = 411) 23.3 % 34.1-44.9 L RAD, ABDOMEN/KUB, 1 VIEW [id number] 09:57:00Reason for exam:->line placement FINAL REPORT Abdomen. MEDICAL HISTORY: Line placement. CO MPARISON STUDY: April 30, 2015. FINDINGS: Two supine views of the abdomen demo nstrates a feeding tube in place, the distal aspect projecting over the gastrodu odenal junction. No dilated loops of bowel are seen. Significant stool is in the rectal region. A right femoral line is noted. Degenerative changes are seen. Th is film is insensitive for the detection of free air. Signed: Jadon Carr MD Report Verified Date/Time: 06/29/2019 09:57:47 Reading Location: [facility] C013X [facility] Consult Reading Room abdomen / KUB 1 [id number] 09:57:00Interface, External Ris In - 06/29/2019 10:00 AM CSTFINAL REPORT Abdomen. MEDICAL HISTORY: Line placement. COMPARISON [...] for the detection of free air. Signed: Jadon Carr MDReport Verified Date/Time: 06/29/2019 09:57:47 Reading Location: [facility] C013X Ortho Consult Reading [facility] [id number] 08:59:00* Test Item Value Reference Range Interpretation Comments HEMOGLOBIN A1C (BEAKER) (test code = 368) 5.7 % 4.3-6.1 POCT-GLUCOSE [id number] 08:03:00* Test Item Value Reference Range Interpretation Comments POC-GLUCOSE METER (BEAKER) (test code = 1538) 224 mg/dL 70-110 H : Notified RN/MD: TESTED AT [facility] [address] [facility], [address]: Director Of Collections And Archives/Residential Advisor ID = [id number] for JADA BREAUX BASIC METABOLIC [id number] 04:21:00* Test Item Value Reference Range Interpretation Comments SODIUM (BEAKER) (test code = 381) 135 meq/L 136-145 L POTASSIUM (BEAKER) (test code = 379) 5.4 meq/L 3.5-5.1 H CHLORIDE (BEAKER) (test code = 382) 98 meq/L 98-107 CO2 (BEAKER) (test code = 355) 23 meq/L 22-29 BLOOD UREA NITROGEN (BEAKER) (test code = 354) 47 mg/dL 7-21 H CREATININE (BEAKER) (test code = 358) 7.73 mg/dL 0.57-1.25 H GLUCOSE RANDOM (BEAKER) (test code = 652) 223 mg/dL 70-105 H CALCIUM (BEAKER) (test code = 697) 8.1 mg/dL 8.4-10.2 L EGFR (BEAKER) (test code = 1092) 6 mL/min/1.73 sq m ESTIMATED GFR IS NOT ACCURATE CREATININE CLEARANCE IN PREDICTING GLOMERULAR FILTRATION RATE. ESTIMATED GFR IS NOT APPLICABLE FOR DIALYSIS PATIENTS. [id number] 04:17:00* Test Item Value Reference Range Interpretation Comments PHOSPHORUS (BEAKER) (test code = 604) 5.6 mg/dL 2.3-4.7 H [id number] 04:17:00* Test Item Value Reference Range Interpretation Comments MAGNESIUM (BEAKER) (test code = 627) 2.0 mg/dL 1.6-2.6 CBC W/PLT COUNT & AUTO [id number] 04:09:00* Test Item Value Reference Range Interpretation Comments WHITE BLOOD CELL COUNT (BEAKER) (test code = 775) 11.6 K/ L 3.5- 10.5 H RED BLOOD CELL COUNT (BEAKER) (test code = 761) 2.83 M/ L 3.93-5 .22 L HEMOGLOBIN (BEAKER) (test code = 410) 8.1 GM/DL 11.2-15.7 L HEMATOCRIT (BEAKER) (test code = 411) 25.8 % 34.1-44.9 L MEAN CORPUSCULAR VOLUME (BEAKER) (test code = 753) 91.2 fL 79. 4-94.8 MEAN CORPUSCULAR HEMOGLOBIN (BEAKER) (test code = 751) 28.6 pg 25.6-32.2 MEAN CORPUSCULAR HEMOGLOBIN CONC (BEAKER) (test code = 752) 31.4 GM/DL 32.2-35.5 L RED CELL DISTRIBUTION WIDTH (BEAKER) (test code = 412) 14.6 % 11.7-14.4 H PLATELET COUNT (BEAKER) (test code = 756) 192 K/CU MM 150-450 MEAN PLATELET VOLUME (BEAKER) (test code = 754) 12.8 fL 9.4-12 .3 H NUCLEATED RED BLOOD CELLS (BEAKER) (test code = 413) 0 /100 WBC 0 -0 NEUTROPHILS RELATIVE PERCENT (BEAKER) (test code = 429) 88 % LYMPHOCYTES RELATIVE PERCENT (BEAKER) (test code = 430) 6 % MONOCYTES RELATIVE PERCENT (BEAKER) (test code = 431) 6 % EOSINOPHILS RELATIVE PERCENT (BEAKER) (test code = 432) 0 % BASOPHILS RELATIVE PERCENT (BEAKER) (test code = 437) 0 % NEUTROPHILS ABSOLUTE COUNT (BEAKER) (test code = 670) 10.14 K/ L 1.56-6.13 H LYMPHOCYTES ABSOLUTE COUNT (BEAKER) (test code = 414) 0.70 K/ L 1.18-3.74 L MONOCYTES ABSOLUTE COUNT (BEAKER) (test code = 415) 0.63 K/ L 0. 24-0.36 H EOSINOPHILS ABSOLUTE COUNT (BEAKER) (test code = 416) 0.00 K/ L 0.04-0.36 L BASOPHILS ABSOLUTE COUNT (BEAKER) (test code = 417) 0.03 K/ L 0. 01-0.08 IMMATURE GRANULOCYTES-RELATIVE PERCENT (BEAKER) (test code = 2801) 0 % 0-1 [id number] 01:02:00* Test Item Value Reference Range Interpretation Comments Fibrinogen (test code = 3255-7) 428 mg/dl 225-434 Lab Interpretation (test code = 65152-3) Normal [facility] 01:02:00* Test Item Value Reference Range Interpretation Comments FIBRINOGEN LEVEL (AKER) (test code = 658) 428 mg/dl 225-434 [id number] 00:05:00* Test Item Value Reference Range Interpretation Comments PTT (test code = 59012-6) 33.8 22.5- 36.0 seconds Lab Interpretation (test code = 73396-8) Normal [facility] 00:05:00* Test Item Value Reference Range Interpretation Comments PARTIAL THROMBOPLASTIN TIME (BEAKER) (test code = 760) 33.8 seconds 22.5-36.0 PROTHROMBIN TIME/[id number] 00:04:00* Test Item Value Reference Range Interpretation Comments PROTIME ([facility]) (test code = 759) 15.1 seconds 11.9-14.2 H INR ([facility]) (test code = 370) 1.3 <=5.9 Effective 12/11/2018: PT Reference Range ChangeNew: 11.9-14.2 Previous: 11.7-14. 7RECOMMENDED COUMADIN/WARFARIN INR THERAPY RANGESSTANDARD DOSE: 2.0-3.0 Include s: PROPHYLAXIS for venous thrombosis, systemic embolization; TREATMENT for venou s thrombosis and/or pulmonary embolus.HIGH RISK: Target INR is 2.5-3.5 for patie nts wiht mechanical heart valves.POCT-GLUCOSE [id number] 00:00:00* Test Item Value Reference Range Interpretation Comments POC-GLUCOSE METER (BEAKER) (test code = 1538) 219 mg/dL 70-110 H : Notified RN/MD: TESTED AT [facility] [address] [place] [address], [address]: Director Of Collections And Archives/Residential Advisor ID = [id number] for SHERLYN, CHANAE Comprehensive metabolic [id number] 23:53:00* Test Item Value Reference Range Interpretation Comments Protein, Total (test code = 2885-2) 6.7 6.0- 8.3 gm/dL Albumin (test code = 24014-2) 3.0 g/dL 3.5-5 L Alkaline Phosphatase (test code = 6768-6) 61 U/L 40-150 Total Bilirubin (test code = 1975-2) 0.4 mg/dL 0.2-1.2 Sodium (test code = 2951-2) 132 meq/L 136-145 L Potassium (test code = 2823-3) 5.0 meq/L 3.5-5.1 Chloride (test code = 2075-0) 97 meq/L 98-107 L CO2 (test code = 2027-9) 23 meq/L 22-29 BUN (test code = 3094-0) 43 mg/dL 7-21 H Creatinine (test code = 2160-0) 7.54 mg/dL 0.57-1.25 H Glucose (test code = 2345-7) 233 mg/dL 70-105 H Calcium (test code = 91665-4) 7.8 mg/dL 8.4-10.2 L AST (test code = 1920-8) 8 U/L 5-34 ALT (test code = 1742-6) <6 6-55 L EGFR (test code = 49305-5) 6 mL/min/1.73 sq m ESTIMATED GFR IS NOT ACCURATE CREATININE CLEARANCE IN PREDICTING GLOMERULAR FILTRATION RATE. ESTIMATED GFR IS NOT APPLICABLE FOR DIALYSIS PATIENTS. Lab Interpretation (test code = 29309-9) [facility]normal [facility] [id number] 23:53:00* Test Item Value Reference Range Interpretation Comments TOTAL PROTEIN (BEAKER) (test code = 770) 6.7 gm/dL 6.0-8.3 ALBUMIN (BEAKER) (test code = 1145) 3.0 g/dL 3.5-5.0 L ALKALINE PHOSPHATASE (BEAKER) (test code = 346) 61 U/L 40-150 BILIRUBIN TOTAL (BEAKER) (test code = 377) 0.4 mg/dL 0.2-1.2 SODIUM (BEAKER) (test code = 381) 132 meq/L 136-145 L POTASSIUM (BEAKER) (test code = 379) 5.0 meq/L 3.5-5.1 CHLORIDE (BEAKER) (test code = 382) 97 meq/L 98-107 L CO2 (BEAKER) (test code = 355) 23 meq/L 22-29 BLOOD UREA NITROGEN (BEAKER) (test code = 354) 43 mg/dL 7-21 H CREATININE (BEAKER) (test code = 358) 7.54 mg/dL 0.57-1.25 H GLUCOSE RANDOM (BEAKER) (test code = 652) 233 mg/dL 70-105 H CALCIUM (BEAKER) (test code = 697) 7.8 mg/dL 8.4-10.2 L AST (SGOT) (BEAKER) (test code = 353) 8 U/L 5-34 ALT (SGPT) (BEAKER) (test code = 347) < U/L 6-55 L EGFR (BEAKER) (test code = 1092) 6 mL/min/1.73 sq m ESTIMATED GFR IS NOT ACCURATE CREATININE CLEARANCE IN PREDICTING GLOMERULAR FILTRATION RATE. ESTIMATED GFR IS NOT APPLICABLE FOR DIALYSIS PATIENTS. HEMOGLOBIN AND [id number] 23:37:00* Test Item Value Reference Range Interpretation Comments HEMOGLOBIN (BEAKER) (test code = 410) 8.3 GM/DL 11.2-15.7 L HEMATOCRIT (BEAKER) (test code = 411) 27.0 % 34.1-44.9 L HEMOGLOBIN AND [id number] 20:45:00* Test Item Value Reference Range Interpretation Comments HEMOGLOBIN (BEAKER) (test code = 410) 8.7 GM/DL 11.2-15.7 L HEMATOCRIT (BEAKER) (test code = 411) 28.4 % 34.1-44.9 L Post transfusionCBC W/PLT COUNT & AUTO [id number] 20:45:00* Test Item Value Reference Range Interpretation Comments WHITE BLOOD CELL COUNT (BEAKER) (test code = 775) 6.4 K/ L 3.5- 10.5 RED BLOOD CELL COUNT (BEAKER) (test code = 761) 3.02 M/ L 3.93-5 .22 L HEMOGLOBIN (BEAKER) (test code = 410) 8.7 GM/DL 11.2-15.7 L HEMATOCRIT (BEAKER) (test code = 411) 28.4 % 34.1-44.9 L MEAN CORPUSCULAR VOLUME (BEAKER) (test code = 753) 94.0 fL 79. 4-94.8 MEAN CORPUSCULAR HEMOGLOBIN (BEAKER) (test code = 751) 28.8 pg 25.6-32.2 MEAN CORPUSCULAR HEMOGLOBIN CONC (BEAKER) (test code = 752) 30.6 GM/DL 32.2-35.5 L RED CELL DISTRIBUTION WIDTH (BEAKER) (test code = 412) 14.9 % 11.7-14.4 H PLATELET COUNT (BEAKER) (test code = 756) 182 K/CU MM 150-450 MEAN PLATELET VOLUME (BEAKER) (test code = 754) 12.6 fL 9.4-12 .3 H NUCLEATED RED BLOOD CELLS (BEAKER) (test code = 413) 0 /100 WBC 0 -0 NEUTROPHILS RELATIVE PERCENT (BEAKER) (test code = 429) 61 % LYMPHOCYTES RELATIVE PERCENT (BEAKER) (test code = 430) 28 % MONOCYTES RELATIVE PERCENT (BEAKER) (test code = 431) 8 % EOSINOPHILS RELATIVE PERCENT (BEAKER) (test code = 432) 1 % BASOPHILS RELATIVE PERCENT (BEAKER) (test code = 437) 1 % NEUTROPHILS ABSOLUTE COUNT (BEAKER) (test code = 670) 3.94 K/ L 1.56-6.13 LYMPHOCYTES ABSOLUTE COUNT (BEAKER) (test code = 414) 1.81 K/ L 1.18-3.74 MONOCYTES ABSOLUTE COUNT (BEAKER) (test code = 415) 0.53 K/ L 0. 24-0.36 H EOSINOPHILS ABSOLUTE COUNT (BEAKER) (test code = 416) 0.09 K/ L 0.04-0.36 BASOPHILS ABSOLUTE COUNT (BEAKER) (test code = 417) 0.03 K/ L 0. 01-0.08 IMMATURE GRANULOCYTES-RELATIVE PERCENT (BEAKER) (test code = 2801) 0 % 0-1 CT, CTAIO [id number] 17:32:00Anesthesia:->NoneFINAL REPORT CLINICAL HISTORY: Neuro deficit, acute, stroke [...] with a severely narrowed and suspected partially occl uded right middle cerebral artery bifurcation. There is loss of caliber of the r ight MCA distal branch vessels compared to the left. The right anterior cerebra l artery A1 segment is moderately stenotic. There is a patent anterior communica ting artery. There are origins of the bilateral posterior cerebral arterie s. 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 The major intradural venous sinuses are patent. There is moderate atherosclerotic disease in the bilateral common caroti d arteries and proximal internal carotid arteries, without hemodynamically signi ficant stenosis by NASCET criteria. There is severe stenosis of the bilateral ve rtebral artery origins. There are dorsal spondylitic changes in the cervical sp ine. There are scattered subcentimeter lymph nodes in the neck. IMPRESSION: Se elias stenosis of the right middle cerebral artery M1 segment extending to the bi furcation, where there is a suspected partial occlusion. The findings were discu ssed with the critical care neurologist at 5:20 PM Signed: Cris Dow MDRmariela augustin Verified Date/Time: 06/28/2019 17:32:12 Reading Location: [address] Neuro Reading Room 0 5:[address], CAROTID, [id number] 17:32:00Anesthesia:->NoneFINAL REPORT CLINICAL HISTORY: Neuro deficit, acute, stroke [...] There is severe stenosis involving the proximal rig ht middle cerebral artery, with a severely narrowed and suspected partially occl uded right middle cerebral artery bifurcation. There is loss of caliber of the r ight MCA distal branch vessels compared to the left. The right anterior cerebra l artery A1 segment is moderately stenotic. There is a patent anterior communica ting artery. There are origins of the bilateral posterior cerebral arterie s. 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 The major intradural venous sinuses are patent. There is moderate atherosclerotic disease in the bilateral common caroti d arteries and proximal internal carotid arteries, without hemodynamically signi ficant stenosis by NASCET criteria. There is severe stenosis of the bilateral ve rtebral artery origins. There are dorsal spondylitic changes in the cervical sp ine. There are scattered subcentimeter lymph nodes in the neck. IMPRESSION: Se elias stenosis of the right middle cerebral artery M1 segment extending to the bi furcation, where there is a suspected partial occlusion. The findings were discu ssed with the critical care neurologist at 5:20 PM Signed: Cris Dow Verified Date/Time: 06/28/2019 17:32:12 Reading Location: [address] Neuro Reading Room 0 5:32 PM CTA [id number] 17:32:00Interface, External Ris In - 06/30/2019 3:13 PM CSTFINAL REPORT CLINICAL HISTORY: Neuro deficit, acute, stroke [...] right anterior cerebral artery A1 segment is moder ately stenotic. There is a patent anterior communicating artery. There are origins of the bilateral posterior cerebral arteries. There is moderate to verna re diffuse narrowing of the basilar artery on a developmental and/or atheroscler otic basis. The major intradural venous sinuses are patent. There is moderate at herosclerotic disease in the bilateral common carotid arteries and proximal inte rnal carotid arteries, without hemodynamically significant stenosis by NASCET cr iteria. There is severe stenosis of the bilateral vertebral artery origins. The re are dorsal spondylitic changes in the cervical spine. There are scattered sub centimeter lymph nodes in the neck. IMPRESSION: Severe stenosis of the right m iddle cerebral artery M1 segment extending to the bifurcation, where there is a suspected partial occlusion. The findings were discussed with the critical care neurologist at 5:20 PM Signed: Cris Dow MDReport Verified Date/Time: 06/28 17:32:12 Reading Location: [facility] C013V Neuro Reading Room Electronic ally signed by: CRIS DOW M.D. on 06/28/2019 05:32 PM [facility] [id number] 17:32:00Interface, External Ris In - 06/28/2019 5:34 PM CSTFINAL REPORT CLINICAL HISTORY: Neuro deficit, acute, stroke [...] involving the proximal right middle cerebral artery, w ith a severely narrowed and suspected partially occluded right middle cerebral a rtery bifurcation. There is loss of caliber of the right MCA distal branch vesse ls compared to the left. The right anterior cerebral artery A1 segment is moder ately stenotic. There is a patent anterior communicating artery. There are origins of the bilateral posterior cerebral arteries. There is moderate to verna re diffuse narrowing of the basilar artery on a developmental and/or atheroscler otic basis. The major intradural venous sinuses are patent. There is moderate at herosclerotic disease in the bilateral common carotid arteries and proximal inte rnal carotid arteries, without hemodynamically significant stenosis by NASCET cr iteria. There is severe stenosis of the bilateral vertebral artery origins. The re are dorsal spondylitic changes in the cervical spine. There are scattered sub centimeter lymph nodes in the neck. IMPRESSION: Severe stenosis of the right m iddle cerebral artery M1 segment extending to the bifurcation, where there is a suspected partial occlusion. The findings were discussed with the critical care neurologist at 5:20 PM Signed: Cris Dowort Verified Date/Time: 06/28 17:32:12 Reading Location: [facility] C013V Neuro Reading Room Electronic all signed by: CRIS DOW M.D. on 06/28/2019 05:32 PM [facility] [id number] 17:23:00* Test Item Value Reference Range Interpretation Comments POC-GLUCOSE METER (BEAKER) (test code = 1538) 138 mg/dL 70-110 H : TESTED AT [place] [id number] [facility], [address]: Director Of Collections And Archives/Residential Advisor ID = [id number] for WAQAS ZAMUDIO POCT-GLUCOSE [id number] 17:22:00* Test Item Value Reference Range Interpretation Comments POC-GLUCOSE METER (BEAKER) (test code = 1538) 144 mg/dL 70-110 H : TESTED AT [place] [id number] [facility], [address]: Director Of Collections And Archives/Residential Advisor ID = [id number] for YAMILETSETHERICA NUNEZ CT, BRAIN/STROKE [id number] 16:27:00Reason for exam:->strokeFINAL REPORT CT Head without contrast CLINICAL HISTORY: stroke TECHNIQUE: Contiguous axial images through the head without contrast. This exam was performed according to the departmental dose optimization program which includes automated exposure control, adjustment of the mA and/or kV according to the patient size, and/or use of an iterative reconstruction technique. COMPAR DORETHA: 01/27/2015 FINDINGS: There is asymmetric hypodensity in the right midfronta l lobe compatible with age indeterminate ischemia, new since 2014. There is no i ntracranial hemorrhage. There is periventricular and subcortical white matter hy podensity which is nonspecific but compatible with chronic microvascular ischemi c change. There are atherosclerotic calcifications of the intracranial circulati on. There is generalized parenchymal volume loss without hydrocephalus, midline shift, or apparent mass effect. There are no extra-axial fluid collections. The skull is intact. The paranasal sinuses are well-aerated. IMPRESSION: No acute he morrhage. Age indeterminate ischemic change in the right mid frontal lobe. The findings were discussed with the critical care neurologist at 4:28 PM Signed: Cris Evans Verified Date/Time: 06/28/2019 16:27:55 Reading Location: [facility] C013 Neuro Reading Room brain/stroke test [id number] 16:27:00 Interface, External Ris In - 06/28/2019 4:30 PM CSTFINAL REPORT PATIENT ID: [id number] Head without contrast CLINICAL HISTORY: stroke TECHNIQUE: Contiguous axial images through the head without contrast. This exam was performed accordin g to the departmental dose optimization program which includes automated exposur e control, adjustment of the mA and/or kV according to the patient size, and/or use of an iterative reconstruction technique. COMPARISON: 01/27/2015 FINDINGS: Th ere is asymmetric hypodensity in the right midfrontal lobe compatible with age i ndeterminate ischemia, new since 2014. There is no intracranial hemorrhage. Ther e is periventricular and subcortical white matter hypodensity which is nonspecif ic but compatible with chronic microvascular ischemic change. There are atherosc lerotic calcifications of the intracranial circulation. There is generalized par enchymal volume loss without hydrocephalus, midline shift, or apparent mass effe ct. There are no extra-axial fluid collections. The skull is intact. The paranas al sinuses are well-aerated. IMPRESSION: No acute hemorrhage. Age indeterminate ischemic change in the right mid frontal lobe. The findings were discussed with the critical care neurologist at 4:28 PM Signed: Cris Dow Verified Date/Time: 06/28/2019 16:27:55 Reading Location: [facility] C013V Neuro Reading R [facility]om [facility] Hospital[facility]atelet Aggregation: Function [id number] 14:59:00* Test Item Value Reference Range Interpretation Comments Pathologist: (test code = 2622) Parminder Stuart MD (electron ic signature) Platelets (test code = 2656) 177 150- 450 K/CU MM ADP (test code = 30796-1) 86 % 62-100 Platelet Rich Plasma (test code = 2134) 218 200- 300 k/cu mm Plt. Function Screen Interpretation (test code = 4655) Normal aggregation results with ADP. No evidence of platelet dysfunction or P2Y12 inhibitor effect. GABBY (test code = GABBY) Platelet Function Screen res ults may be falsely low with platelet counts<75,000/cu mm.REDRAWREDRAWREDRAW [facility] HospitalPLATELET AGGREGATION: FUNCTION [id number] 14:59:00* Test Item Value Reference Range Interpretation Comments [id number] (BEAKER) (test code = 2622) Carie Stuart MD (electronic signature) PLATELET COUNT AGG (BEAKER) (test code = 2656) 177 K/CU MM 150-450 PLATELET RICH PLASMA(BEAKER) (test code = 2134) 218 k/cu mm 200-30 0 PLATELET FUNCTION SCREEN INTERPRETATION (BEAKER) (test code = 4655) Normal aggregation results with ADP. No evidence of platelet dysfunction or P2Y12 inhibitor effect. Platelet Function Screen results may be falsely low with platelet counts< 75,000/cu mm.REDRAWREDRAWREDRAWPLATELET AGGREGATION: FUNCTION [id number] 14:58:00* Test Item Value Reference Range Interpretation Comments [id number] (BEAKER) (test code = 2622) Carie Stuart MD (electronic signature) PLATELET COUNT AGG (BEAKER) (test code = 2656) 161 K/CU MM 150-450 PLATELET RICH PLASMA(BEAKER) (test code = 2134) 163 k/cu mm 200-30 0 L PLATELET FUNCTION SCREEN INTERPRETATION (BEAKER) (test code = 4655) Normal aggregation results with ADP. No evidence of platelet dysfunction or P2Y12 inhibitor effect. Platelet Function Screen results may be falsely low with platelet counts< 75,000/cu mm.HEPATITIS B SURFACE [id number] 10:10:00* Test Item Value Reference Range Interpretation Comments HEPATITIS B SURFACE ANTIGEN (2) (BEAKER) (test code = 2585) Nonreactive Nonreactive CBC W/PLT COUNT & AUTO [id number] 10:04:00* Test Item Value Reference Range Interpretation Comments WHITE BLOOD CELL COUNT (BEAKER) (test code = 775) 6.3 K/ L 3.5- 10.5 RED BLOOD CELL COUNT (BEAKER) (test code = 761) 3.74 M/ L 3.93-5 .22 L HEMOGLOBIN (BEAKER) (test code = 410) 10.5 GM/DL 11.2-15.7 L HEMATOCRIT (BEAKER) (test code = 411) 34.5 % 34.1-44.9 MEAN CORPUSCULAR VOLUME (BEAKER) (test code = 753) 92.2 fL 79. 4-94.8 MEAN CORPUSCULAR HEMOGLOBIN (BEAKER) (test code = 751) 28.1 pg 25.6-32.2 MEAN CORPUSCULAR HEMOGLOBIN CONC (BEAKER) (test code = 752) 30.4 GM/DL 32.2-35.5 L RED CELL DISTRIBUTION WIDTH (BEAKER) (test code = 412) 14.9 % 11.7-14.4 H PLATELET COUNT (BEAKER) (test code = 756) 185 K/CU MM 150-450 MEAN PLATELET VOLUME (BEAKER) (test code = 754) 12.0 fL 9.4-12 .3 NUCLEATED RED BLOOD CELLS (BEAKER) (test code = 413) 0 /100 WBC 0 -0 NEUTROPHILS RELATIVE PERCENT (BEAKER) (test code = 429) 79 % LYMPHOCYTES RELATIVE PERCENT (BEAKER) (test code = 430) 13 % MONOCYTES RELATIVE PERCENT (BEAKER) (test code = 431) 7 % EOSINOPHILS RELATIVE PERCENT (BEAKER) (test code = 432) 1 % BASOPHILS RELATIVE PERCENT (BEAKER) (test code = 437) 0 % NEUTROPHILS ABSOLUTE COUNT (BEAKER) (test code = 670) 4.92 K/ L 1.56-6.13 LYMPHOCYTES ABSOLUTE COUNT (BEAKER) (test code = 414) 0.81 K/ L 1.18-3.74 L MONOCYTES ABSOLUTE COUNT (BEAKER) (test code = 415) 0.44 K/ L 0. 24-0.36 H EOSINOPHILS ABSOLUTE COUNT (BEAKER) (test code = 416) 0.07 K/ L 0.04-0.36 BASOPHILS ABSOLUTE COUNT (BEAKER) (test code = 417) 0.02 K/ L 0. 01-0.08 IMMATURE GRANULOCYTES-RELATIVE PERCENT (BEAKER) (test code = 2801) 0 % 0-1 POCT-GLUCOSE [id number] 07:40:00* Test Item Value Reference Range Interpretation Comments POC-GLUCOSE METER (BEAKER) (test code = 1538) 145 mg/dL 70-110 H : TESTED AT [facility] [address], [address]: Director Of Collections And Archives/Residential Advisor ID = [id number] for WAQAS ZAMUDIO CBC W/PLT COUNT & AUTO [id number] 06:25:00* Test Item Value Reference Range Interpretation Comments WHITE BLOOD CELL COUNT (BEAKER) (test code = 775) 4.7 K/ L 3.5- 10.5 Specimen clotted. Autoverified. Notified bg#[id number] about corrected reportThis is a corrected result. Previous result was 4.7 K/ L on 06/28/2019 at 0529 [facility] RED BLOOD CELL COUNT (BEAKER) (test code = 761) 3.56 M/ L 3.93-5 .22 L Specimen clotted. Autoverified. Notified bg#[id number] about corrected reportThis is a corrected result. Previous result was 3.56 M/ L on 06/28/2019 at 0529 [facility] HEMOGLOBIN (BEAKER) (test code = 410) 10.0 GM/DL 11.2-15.7 L Specimen clotted. Autoverified. Notified bg#[id number] about corrected reportThis is a corrected result. Previous result was 10.0 GM/DL on 06/28/2019 at 0529 [facility] HEMATOCRIT (BEAKER) (test code = 411) 35.3 % 34.1-44.9 Specimen clotted. Autoverified. Notified bg#[id number] about corrected reportThis is a corrected result. Previous result was 35.3 % on 06/28/2019 at 0529 [facility] MEAN CORPUSCULAR VOLUME (BEAKER) (test code = 753) 99.2 fL 79. 4-94.8 H Specimen clotted. Autoverified. Notified bg#[id number] about corrected reportThis is a corrected result. Previous result was 99.2 fL on 06/28/2019 at 0529 [facility] MEAN CORPUSCULAR HEMOGLOBIN (BEAKER) (test code = 751) 28.1 pg 25.6-32.2 Specimen clotted. Autoverified. Notified bg#[id number] about corrected reportThis is a corrected result. Previous result was 28.1 pg on 06/28/2019 at 0529 [facility] MEAN CORPUSCULAR HEMOGLOBIN CONC (BEAKER) (test code = 752) 28.3 GM/DL 32.2-35.5 L Specimen clotted. Autoverifi ed. Notified bg#[id number] about corrected reportThis is a corrected result. Previous result was 28.3 GM/DL on 06/28/2019 at 0529 [facility] RED CELL DISTRIBUTION WIDTH (BEAKER) (test code = 412) 15.2 % 11.7-14.4 H Specimen clotted. Autoverified. Notified bg#[id number] about corrected reportThis is a corrected result. Previous result was 15.2 % on 06/28/2019 at 0529 [facility] PLATELET COUNT (BEAKER) (test code = 756) 34 K/CU MM 150-450 L Specimen clotted. Autoverified. Notified bg#[id number] about corrected reportThis is a corrected result. Previous result was 34 K/CU MM on 06/28/2019 at 0529 [facility] MEAN PLATELET VOLUME (BEAKER) (test code = 754) 11.2 fL 9.4-12 .3 Specimen clotted. Autoverified. Notified bg#[id number] about corrected reportThis is a corrected result. Previous result was 11.2 fL on 06/28/2019 at 0529 [facility] NUCLEATED RED BLOOD CELLS (BEAKER) (test code = 413) 0 /100 WBC 0 -0 This is a corrected result. Previous result was 0 /100 WBC on 06/28/2019 at 0529 [facility] NEUTROPHILS RELATIVE PERCENT (BEAKER) (test code = 429) 67 % Specimen clotted. Autoverified. Notified bg#[id number] about corrected reportThis is a corrected result. Previous result was 67 % on 06/28/2019 at 0529 [facility] LYMPHOCYTES RELATIVE PERCENT (BEAKER) (test code = 430) 22 % Specimen clotted. Autoverified. Notified bg#[id number] about corrected reportThis is a corrected result. Previous result was 22 % on 06/28/2019 at 0529 [facility] MONOCYTES RELATIVE PERCENT (BEAKER) (test code = 431) 9 % Specimen clotted. Autoverified. Notified bg#[id number] about corrected reportThis is a corrected result. Previous result was 9 % on 06/28/2019 at 0529 [facility] EOSINOPHILS RELATIVE PERCENT (BEAKER) (test code = 432) 1 % Specimen clotted. Autoverified. Notified bg#[id number] about corrected reportThis is a corrected result. Previous result was 1 % on 06/28/2019 at 0529 [facility] BASOPHILS RELATIVE PERCENT (BEAKER) (test code = 437) 0 % Specimen clotted. Autoverified. Notified bg#[id number] about corrected reportThis is a corrected result. Previous result was 0 % on 06/28/2019 at 0529 [facility] NEUTROPHILS ABSOLUTE COUNT (BEAKER) (test code = 670) 3.18 K/ L 1.56-6.13 This is a corrected result. Previous result was 3.18 K/ L on 06/28/2019 at 0529 [facility] LYMPHOCYTES ABSOLUTE COUNT (BEAKER) (test code = 414) 1.06 K/ L 1.18-3.74 L This is a corrected result. Previous result was 1.06 K/ L on 06/28/2019 at 0529 [facility] MONOCYTES ABSOLUTE COUNT (BEAKER) (test code = 415) 0.42 K/ L 0. 24-0.36 H This is a corrected result. Previous result was 0.42 K/ L on 06/28/2019 at 0529 [facility] EOSINOPHILS ABSOLUTE COUNT (BEAKER) (test code = 416) 0.06 K/ L 0.04-0.36 This is a corrected result. Previous result was 0.06 K/ L on 06/28/2019 at 0529 [facility] BASOPHILS ABSOLUTE COUNT (BEAKER) (test code = 417) 0.02 K/ L 0. 01-0.08 This is a corrected result. Previous result was 0.02 K/ L on 06/28/2019 at 0529 [facility] IMMATURE GRANULOCYTES-RELATIVE PERCENT (BEAKER) (test code = 2801) 0 % 0-1 This is a corrected result. Previous result was 0 % on 06/28/2019 at 0529 [facility] BASIC METABOLIC [id number] 06:01:00* Test Item Value Reference Range Interpretation Comments SODIUM (BEAKER) (test code = 381) 134 meq/L 136-145 L POTASSIUM (BEAKER) (test code = 379) 5.3 meq/L 3.5-5.1 H CHLORIDE (BEAKER) (test code = 382) 97 meq/L 98-107 L CO2 (BEAKER) (test code = 355) 26 meq/L 22-29 BLOOD UREA NITROGEN (BEAKER) (test code = 354) 56 mg/dL 7-21 H CREATININE (BEAKER) (test code = 358) 9.56 mg/dL 0.57-1.25 H GLUCOSE RANDOM (BEAKER) (test code = 652) 125 mg/dL 70-105 H CALCIUM (BEAKER) (test code = 697) 7.9 mg/dL 8.4-10.2 L EGFR (BEAKER) (test code = 1092) 5 mL/min/1.73 sq m ESTIMATED GFR IS NOT ACCURATE CREATININE CLEARANCE IN PREDICTING GLOMERULAR FILTRATION RATE. ESTIMATED GFR IS NOT APPLICABLE FOR DIALYSIS PATIENTS. [id number] 05:45:00* Test Item Value Reference Range Interpretation Comments PHOSPHORUS (BEAKER) (test code = 604) 6.2 mg/dL 2.3-4.7 H [id number] 05:45:00* Test Item Value Reference Range Interpretation Comments MAGNESIUM (BEAKER) (test code = 627) 2.1 mg/dL 1.6-2.6 POCT-GLUCOSE [id number] 22:59:00* Test Item Value Reference Range Interpretation Comments POC-GLUCOSE METER (BEAKER) (test code = 1538) 154 mg/dL 70-110 H : TESTED AT [address], [address]: Director Of Collections And Archives/Residential Advisor ID = [id number] for IVETTE GRAVES POC ACTIVATED CLOTTING [id number] 21:10:00* Test Item Value Reference Range Interpretation Comments Activated Clotting Time (test code = 441) 153 sec Reference Range: 74-137 seconds, Baseline/TESTED AT [address] [address] [facility][id number] 21:10:00* Test Item Value Reference Range Interpretation Comments ACTIVATED CLOTTING TIME (BEAKER) (test code = 441) 153 sec Reference Range: 74-137 seconds, Baseline/TESTED AT [place] [address] [id number] 19:46:00* Test Item Value Reference Range Interpretation Comments ACTIVATED CLOTTING TIME (BEAKER) (test code = 441) 180 sec Reference Range: 74-137 seconds, Baseline/TESTED AT [place] [address] POCT-GLUCOSE [id number] 18:15:00* Test Item Value Reference Range Interpretation Comments POC-GLUCOSE METER (BEAKER) (test code = 1538) 109 mg/dL 70-110 : TESTED AT [place] [address]: Director Of Collections And Archives/Residential Advisor ID = [id number] for WAQAS ZAMUDIO [id number] 15:57:00* Test Item Value Reference Range Interpretation Comments ACTIVATED CLOTTING TIME (BEAKER) (test code = 441) 312 sec Reference Range: 74-137 seconds, Baseline/TESTED AT [place] [address] [id number] 15:24:00* Test Item Value Reference Range Interpretation Comments ACTIVATED CLOTTING TIME (BEAKER) (test code = 441) 285 sec Reference Range: 74-137 seconds, Baseline/TESTED AT [place] [address] [id number] 14:44:00* Test Item Value Reference Range Interpretation Comments ACTIVATED CLOTTING TIME (BEAKER) (test code = 441) 285 sec Reference Range: 74-137 seconds, Baseline/TESTED AT [place] [address] POTASSIUM-STAT [id number] 12:38:00* Test Item Value Reference Range Interpretation Comments POTASSIUM (BEAKER) (test code = 379) 5.4 meq/L 3.6-5.5 ABDOMEN-1VIEW (KUB)2019-06-09 05:02:00 [place] [address] Patient Name: ANGELA JEFFERS MR #: [id number] : 1945 Age/Sex: 74/F Req #: [id number] Adm Physician: Ordered by: TREY RODRIGES MD Report #: [id number] Location: ER Room/Bed: Procedure: [id number] DX/ABDOMEN-1VIEW (KUB) Exam Date: 06/09/19 Exam Time: 0400 REPORT STATUS: Signed EXAM: Abdomen Radiograph 1 View INDICATION: Constipation COMPARISON: Pelvis CT 05/31/2019, abdominal radiograph 05/12/2019 FINDINGS: Persis tent opacities in the lung bases consistent with scarring/atelectasis. No l elvira or tubes. No evidence of colonic stool overload. No dilated loop s of small bowel. No abnormal abdominal calcifications.. No abnormal s oft tissue masses. No pneumoperitoneum. No acute osseous abnormality. Degenerative changes in the spine, hips, and pelvis. IMPRESSION: Nonobstructive bowel gas pattern. Gas within the rectum. No radiographic evide nce of colonic stool overload. Signed by: Emilia Morton DO on 06/09/2019 5:05 AM Dictated By: EMILIA MORTON DO 4 Transcribed By: ARIEL on 06/09/19504 COPY TO: TREY RODRIGES MD Bedside [id number] 15:39:00* Test Item Value Reference Range Interpretation Comments Bedside Glucose (test code = 06788-3) 187 70-120 H Meter ID: [id number] Medical CenterBedside Glucose 2019-06-04 15:39:00* Test Item Value Reference Range Interpretation Comments Bedside Glucose (test code = 79183-6) 187 70-120 H Meter ID: [id number] Houston Healthcare Clear Lakeodium Level 2019-06-03 07:56:00* Test Item Value Reference Range Interpretation Comments Sodium Level (test code = 2951-2) 138 136-145 [facility] CenterPotassium [id number] 07:56:00* Test Item Value Reference Range Interpretation Comments Potassium Level (test code = 2823-3) 4.2 3.5-5.1 [facility] CenterChloride [id number] 07:56:00* Test Item Value Reference Range Interpretation Comments Chloride Level (test code = 2075-0) 98 98-107 [facility] CenterCarbon Dioxide [id number] 07:56:00* Test Item Value Reference Range Interpretation Comments Carbon Dioxide Level (test code = 2028-9) 32 22-29 H [facility] CenterAnion [id number] 07:56:00* Test Item Value Reference Range Interpretation Comments Anion Gap (test code = 84836-8) 12.2 8-16 [facility] CenterBlood Urea [id number] 07:56:00* Test Item Value Reference Range Interpretation Comments Blood Urea Nitrogen (test code = 3094-0) 23 7-26 [facility] CenterCreatinine2019-11-19 07:56:00* Test Item Value Reference Range Interpretation Comments Creatinine (test code = 2160-0) 6.74 0.57-1.11 H [facility] CenterBUN/Creatinine [id number] 07:56:00* Test Item Value Reference Range Interpretation Comments BUN/Creatinine Ratio (test code = 3097-3) 3 6-25 L [facility] CenterEstimat Glomerular Filtration Rate 2019-06-03 07:56:00* Test Item Value Reference Range Interpretation Comments Estimat Glomerular Filtration Rate (test code = 457219390) 7 >60 L Ranges were taken from the National Kidney Disease Education Program and the [facility] literature.Reference ranges:60 or greater: Zndaet32-64 ( for 3 consecutive months): Chronic kidney disease 15 or less: Kidney failureKnapp Medical CenterGlucose Udiyp8967-83-38 07:56:00* Test Item Value Reference Range Interpretation Comments Glucose Level (test code = WYY2920) 124 74-118 H [facility] CenterCalcium Untoi5562-50-40 07:56:00* Test Item Value Reference Range Interpretation Comments Calcium Level (test code = 73131-2) 7.9 8.4-10.2 L [facility] Lakeodium [id number] 07:56:00* Test Item Value Reference Range Interpretation Comments Sodium Level (test code = 2951-2) 138 136-145 [facility] CenterPotassium Sloof9953-38-79 07:56:00* Test Item Value Reference Range Interpretation Comments Potassium Level (test code = 2823-3) 4.2 3.5-5.1 [facility] CenterChloride [id number] 07:56:00* Test Item Value Reference Range Interpretation Comments Chloride Level (test code = 2075-0) 98 98-107 [facility] CenterCarbon Dioxide Vrfam4434-69-29 07:56:00* Test Item Value Reference Range Interpretation Comments Carbon Dioxide Level (test code = 2028-9) 32 22-29 H [facility] CenterAnion [id number] 07:56:00* Test Item Value Reference Range Interpretation Comments Anion Gap (test code = 27406-7) 12.2 8-16 [facility] CenterBlood Urea Haodfhdj5634-57-26 07:56:00* Test Item Value Reference Range Interpretation Comments Blood Urea Nitrogen (test code = 3094-0) 23 7-26 [facility] CenterCreatinine2019-11-19 07:56:00* Test Item Value Reference Range Interpretation Comments Creatinine (test code = 2160-0) 6.74 0.57-1.11 H [facility] CenterBUN/Creatinine Yjdmh0717-70-05 07:56:00* Test Item Value Reference Range Interpretation Comments BUN/Creatinine Ratio (test code = 3097-3) 3 6-25 L [facility] CenterEstimat Glomerular Filtration Rate 2019-06-03 07:56:00* Test Item Value Reference Range Interpretation Comments Estimat Glomerular Filtration Rate (test code = 012183477) 7 >60 L Ranges were taken from the National Kidney Disease Education Program and the [facility] literature.Reference ranges:60 or greater: Artzmk61-91 ( for 3 consecutive months): Chronic kidney disease 15 or less: Kidney failureKnapp Medical CenterGlucose Smabj9068-31-45 07:56:00* Test Item Value Reference Range Interpretation Comments Glucose Level (test code = TAI2251) 124 74-118 H [facility] CenterCalcium Wmvnj4818-99-57 07:56:00* Test Item Value Reference Range Interpretation Comments Calcium Level (test code = 27663-7) 7.9 8.4-10.2 L [facility] CenterHemoglobin2019-11-19 06:51:00* Test Item Value Reference Range Interpretation Comments Hemoglobin (test code = 02678-6) 9.2 12.0-16.0 L [facility] CenterHematocrit2019-11-19 06:51:00* Test Item Value Reference Range Interpretation Comments Hematocrit (test code = 4544-3) 30.5 34.2-44.1 L [facility] CenterHemoglobin2019-11-19 06:51:00* Test Item Value Reference Range Interpretation Comments Hemoglobin (test code = 24742-1) 9.2 12.0-16.0 L [facility] CenterHematocrit2019-11-19 06:51:00* Test Item Value Reference Range Interpretation Comments Hematocrit (test code = 4544-3) 30.5 34.2-44.1 L [facility] CenterWhite Blood Iyxrv4788-33-75 06:27:00* Test Item Value Reference Range Interpretation Comments White Blood Count (test code = 6690-2) 6.89 4.8-10.8 [facility] CenterRed Blood Qeiau9644-54-16 06:27:00* Test Item Value Reference Range Interpretation Comments Red Blood Count (test code = 789-8) 2.04 3.6-5.1 L [facility] CenterMean Corpuscular Aqxtgx4870-52-37 06:27:00* Test Item Value Reference Range Interpretation Comments Mean Corpuscular Volume (test code = 787-2) 99.5 81-99 H [facility] CenterMean Corpuscular Prlxpafppv7334-71-78 06:27:00* Test Item Value Reference Range Interpretation Comments Mean Corpuscular Hemoglobin (test code = 785-6) 29.4 28-32 [facility] CenterMean Corpuscular Hemoglobin Concent 2019-06-03 06:27:00* Test Item Value Reference Range Interpretation Comments Mean Corpuscular Hemoglobin Concent (test code = 786-4) 29.6 31-35 L [facility] CenterRed Cell Distribution Awhpx1037-75-88 06:27:00* Test Item Value Reference Range Interpretation Comments Red Cell Distribution Width (test code = 10547-3) 15.9 11.7 -14.4 H [facility] CenterPlatelet Wykmw5923-20-73 06:27:00* Test Item Value Reference Range Interpretation Comments Platelet Count (test code = 777-3) 120 140-360 L [facility] CenterNeutrophils (%) (Auto)2019-06-03 06:27:00 * Test Item Value Reference Range Interpretation Comments Neutrophils (%) (Auto) (test code = 41813-1) 71.0 38.7-80.0 [facility] CenterLymphocytes (%) (Auto)2019-06-03 06:27:00 * Test Item Value Reference Range Interpretation Comments Lymphocytes (%) (Auto) (test code = 736-9) 14.2 18.0-39.1 L [facility] CenterMonocytes (%) (Auto)2019-06-03 06:27:00* Test Item Value Reference Range Interpretation Comments Monocytes (%) (Auto) (test code = 5905-5) 10.7 4.4-11.3 [facility] CenterEosinophils (%) (Auto)2019-06-03 06:27:00 * Test Item Value Reference Range Interpretation Comments Eosinophils (%) (Auto) (test code = 713-8) 3.2 0.0-6.0 [facility] CenterBasophils (%) (Auto)2019-06-03 06:27:00* Test Item Value Reference Range Interpretation Comments Basophils (%) (Auto) (test code = 706-2) 0.3 0.0-1.0 [facility] CenterIM GRANULOCYTES %2019-06-03 06:27:00* Test Item Value Reference Range Interpretation Comments IM GRANULOCYTES % (test code = IM GRANULOCYTES %) 0.6 0.0- 1.0 [facility] CenterNeutrophils # (Auto)2019-06-03 06:27:00* Test Item Value Reference Range Interpretation Comments Neutrophils # (Auto) (test code = 751-8) 4.9 2.1-6.9 [facility] CenterLymphocytes # (Auto)2019-06-03 06:27:00* Test Item Value Reference Range Interpretation Comments Lymphocytes # (Auto) (test code = 57430-4) 1.0 1.0-3.2 [facility] CenterMonocytes # (Auto)2019-06-03 06:27:00* Test Item Value Reference Range Interpretation Comments Monocytes # (Auto) (test code = 742-7) 0.7 0.2-0.8 [facility] CenterEosinophils # (Auto)2019-06-03 06:27:00* Test Item Value Reference Range Interpretation Comments Eosinophils # (Auto) (test code = 711-2) 0.2 0.0-0.4 [facility] CenterBasophils # (Auto)2019-06-03 06:27:00* Test Item Value Reference Range Interpretation Comments Basophils # (Auto) (test code = 704-7) 0.0 0.0-0.1 [facility] CenterAbsolute Immature Granulocyte (auto 2019-06-03 06:27:00* Test Item Value Reference Range Interpretation Comments Absolute Immature Granulocyte (auto (toby t code = Absolute Immature Granulocyte (auto) 0.04 0-0.1 [facility] CenterWhite Blood Xhjsk1592-33-15 06:27:00* Test Item Value Reference Range Interpretation Comments White Blood Count (test code = 6690-2) 6.89 4.8-10.8 [facility] CenterRed Blood Zpvbk9423-46-32 06:27:00* Test Item Value Reference Range Interpretation Comments Red Blood Count (test code = 789-8) 2.04 3.6-5.1 L [facility] CenterMean Corpuscular Frehsj1410-13-88 06:27:00* Test Item Value Reference Range Interpretation Comments Mean Corpuscular Volume (test code = 787-2) 99.5 81-99 H [facility] CenterMean Corpuscular Vpnijmlryf4956-09-38 06:27:00* Test Item Value Reference Range Interpretation Comments Mean Corpuscular Hemoglobin (test code = 785-6) 29.4 28-32 [facility] CenterMean Corpuscular Hemoglobin Concent 2019-06-03 06:27:00* Test Item Value Reference Range Interpretation Comments Mean Corpuscular Hemoglobin Concent (test code = 786-4) 29.6 31-35 L [facility] CenterRed Cell Distribution Divvh3421-29-44 06:27:00* Test Item Value Reference Range Interpretation Comments Red Cell Distribution Width (test code = 60193-9) 15.9 11.7 -14.4 H [facility] CenterPlatelet Bmygf9886-52-50 06:27:00* Test Item Value Reference Range Interpretation Comments Platelet Count (test code = 777-3) 120 140-360 L [facility] CenterNeutrophils (%) (Auto)2019-06-03 06:27:00 * Test Item Value Reference Range Interpretation Comments Neutrophils (%) (Auto) (test code = 97997-1) 71.0 38.7-80.0 [facility] CenterLymphocytes (%) (Auto)2019-06-03 06:27:00 * Test Item Value Reference Range Interpretation Comments Lymphocytes (%) (Auto) (test code = 736-9) 14.2 18.0-39.1 L [facility] CenterMonocytes (%) (Auto)2019-06-03 06:27:00* Test Item Value Reference Range Interpretation Comments Monocytes (%) (Auto) (test code = 5905-5) 10.7 4.4-11.3 [facility] CenterEosinophils (%) (Auto)2019-06-03 06:27:00 * Test Item Value Reference Range Interpretation Comments Eosinophils (%) (Auto) (test code = 713-8) 3.2 0.0-6.0 [facility] CenterBasophils (%) (Auto)2019-06-03 06:27:00* Test Item Value Reference Range Interpretation Comments Basophils (%) (Auto) (test code = 706-2) 0.3 0.0-1.0 [facility] CenterIM GRANULOCYTES %2019-06-03 06:27:00* Test Item Value Reference Range Interpretation Comments IM GRANULOCYTES % (test code = IM GRANULOCYTES %) 0.6 0.0- 1.0 [facility] CenterNeutrophils # (Auto)2019-06-03 06:27:00* Test Item Value Reference Range Interpretation Comments Neutrophils # (Auto) (test code = 751-8) 4.9 2.1-6.9 [facility] CenterLymphocytes # (Auto)2019-06-03 06:27:00* Test Item Value Reference Range Interpretation Comments Lymphocytes # (Auto) (test code = 57480-7) 1.0 1.0-3.2 [facility] CenterMonocytes # (Auto)2019-06-03 06:27:00* Test Item Value Reference Range Interpretation Comments Monocytes # (Auto) (test code = 742-7) 0.7 0.2-0.8 [facility] CenterEosinophils # (Auto)2019-06-03 06:27:00* Test Item Value Reference Range Interpretation Comments Eosinophils # (Auto) (test code = 711-2) 0.2 0.0-0.4 [facility] CenterBasophils # (Auto)2019-06-03 06:27:00* Test Item Value Reference Range Interpretation Comments Basophils # (Auto) (test code = 704-7) 0.0 0.0-0.1 [facility] CenterAbsolute Immature Granulocyte (auto 2019-06-03 06:27:00* Test Item Value Reference Range Interpretation Comments Absolute Immature Granulocyte (auto (toby t code = Absolute Immature Granulocyte (auto) 0.04 0-0.1 [facility] B Surface Antibody, Quant 2019-06-03 05:12:00* Test Item Value Reference Range Interpretation Comments Hepatitis B Surface Antibody, Quant (test code = 5194-6) 188.0 Immunity>9.9 Status of Immunity Anti-HBs Level Inconsistent with Immunity 0.0 - 9.9Consistent with Immunity >9.9[facility] Surface Httarbb2325-22-08 05:12:00* Test Item Value Reference Range Interpretation Comments Hepatitis B Surface Antigen (test code = 5196-1) Negative Negat jinny [facility] B Core IgM Xdoovhcy2079-09-32 05:12:00* Test Item Value Reference Range Interpretation Comments Hepatitis B Core IgM Antibody (test code = 97866-2) Negative Ne gative Performed at: [address] [id number] Director: Ronald Arcos MD, Phone: [phone]. Joseph Medical Center B Surface Antibody, Iupvb7811-43-48 05:12:00* Test Item Value Reference Range Interpretation Comments Hepatitis B Surface Antibody, Quant (test code = 5194-6) 188.0 Immunity>9.9 Status of Immunity Anti-HBs Level Inconsistent with Immunity 0.0 - 9.9Consistent with Immunity >9.9[facility] B Surface Cgiphnp0694-95-96 05:12:00* Test Item Value Reference Range Interpretation Comments Hepatitis B Surface Antigen (test code = 5196-1) Negative Negat [facility] B Core IgM Qhehjwce1665-12-55 05:12:00* Test Item Value Reference Range Interpretation Comments Hepatitis B Core IgM Antibody (test code = 50303-8) Negative Ne gative Performed at: [facility] [place] [id number] Director: Ronald Arcos MD, Phone: [phone]. Joseph Medical Center B Surface Antibody, Dhyxm7640-26-74 05:12:00* Test Item Value Reference Range Interpretation Comments Hepatitis B Surface Antibody, Quant (test code = 5194-6) 188.0 Immunity>9.9 Status of Immunity Anti-HBs Level Inconsistent with Immunity 0.0 - 9.9Consistent with Immunity >9.9[facility] B Surface Mmcdyay9298-55-30 05:12:00* Test Item Value Reference Range Interpretation Comments Hepatitis B Surface Antigen (test code = 5196-1) Negative Negat [facility] B Surface Antibody, Quant 2019-06-03 05:12:00* Test Item Value Reference Range Interpretation Comments Hepatitis B Surface Antibody, Quant (test code = 5194-6) 188.0 Immunity>9.9 Status of Immunity Anti-HBs Level Inconsistent with Immunity 0.0 - 9.9Consistent with Immunity >9.9[facility] B Surface Antibody, Odtia1585-74-75 05:12:00* Test Item Value Reference Range Interpretation Comments Hepatitis B Surface Antibody, Quant (test code = 5194-6) 188.0 Immunity>9.9 Status of Immunity Anti-HBs Level Inconsistent with Immunity 0.0 - 9.9Consistent with Immunity >9.9[facility] [place] [address]-3 VW (+/- PELVIS)2019-06-02 17:24:00 [facility] [address] [place] [address] Patient Name: ANGELA JEFFERS MR #: [id number] : 1945 Age/Sex: 74/F Req #: [id number] Adm Physician: CHERELLE VELASQUEZ MD Ordered by: CHERELLE VELASQUEZ MD Report #: [id number] Location: MED/SURG3 Room/Bed: [facility] Procedure: [id number] D X/HIP LEFT 2-3 VW (+/- PELVIS) Exam Date: Exam Time : REPORT STATUS: Signed EXAMINA TION: HIP LEFT 2-3 VW (+/- PELVIS) INDICATION: Hip pain COMPARISO N: None FINDINGS: AP view of the pelvis and AP and frog-leg views of the left hip were obtained. No acute fracture or dislocation. Alignment ap pears anatomic. There are severe degenerative changes of the lower lumbar spin e and of both hip joints with joint space narrowing, subchondral cystic change , subchondral sclerosis, and osteophyte formation. Diffuse atherosclerotic art erial calcifications. IMPRESSION: No acute osseous injury. Severe d egenerative changes of both hip joints. Severe degenerative changes of the par tially visualized lower lumbar spine. Signed by: Gustavo To MD on 06/02/20 5:26 PM Dictated By: GUSTAVO TO MD 25 Transcribed By: ARIEL on 06/02/191725 COPY TO: CHERELLE VELASQUEZ MD Phosphorus Jbnew3874-69-97 06:39:00* Test Item Value Reference Range Interpretation Comments Phosphorus Level (test code = PTP2335) 6.0 2.3-4.7 H [facility] CenterPhosphorus Bhcgg3433-19-52 06:39:00* Test Item Value Reference Range Interpretation Comments Phosphorus Level (test code = ITA9301) 6.0 2.3-4.7 H [facility] CenterPhosphorNorman Regional HealthPlex – NormanBimjg4074-76-35 06:39:00* Test Item Value Reference Range Interpretation Comments Phosphorus Level (test code = EGC8603) 6.0 2.3-4.7 H [facility] CenterPhosphorus Pdmor1442-21-98 06:39:00* Test Item Value Reference Range Interpretation Comments Phosphorus Level (test code = BUG6178) 6.0 2.3-4.7 H [facility]2019-11-18 06:39:00* Test Item Value Reference Range Interpretation Comments Phosphorus Level (test code = MJC3305) 6.0 2.3-4.7 H [facility] CenterCreatine Kinase GX5214-80-59 06:32:00* Test Item Value Reference Range Interpretation Comments Creatine Kinase MB (test code = 42315-3) 3.80 0-5.0 [place] 26876019-11-17 06:32:00* Test Item Value Reference Range Interpretation Comments Troponin I (test code = OPO0613) 0.079 0-0.300 [facility] CenterCreatine Kinase BP5241-39-32 06:32:00* Test Item Value Reference Range Interpretation Comments Creatine Kinase MB (test code = 23661-0) 3.80 0-5.0 [facility] I[facility]78-15-48 06:32:00* Test Item Value Reference Range Interpretation Comments Troponin I (test code = PGU3799) 0.079 0-0.300 [facility] CenterCreatine Qowtwq3788-23-86 06:31:00* Test Item Value Reference Range Interpretation Comments Creatine Kinase (test code = 2157-6) 43 29-168 [facility] CenterCreatine Orwrrk8042-13-15 06:31:00* Test Item Value Reference Range Interpretation Comments Creatine Kinase (test code = 2157-6) 43 29-168 [facility] Enqruvezc8930-11-03 05:57:00* Test Item Value Reference Range Interpretation Comments Total Bilirubin (test code = 1974-2) 0.4 0.2-1.2 [facility] CenterAspartate Amino Transf (AST/SGOT) 2019-06-01 05:57:00* Test Item Value Reference Range Interpretation Comments Aspartate Amino Transf (AST/SGOT) (test code = Aspartate Amino Transf (AST/SGOT)) 11 5-34 [facility] CenterAlanine Aminotransferase (ALT/SGPT) 2019-06-01 05:57:00* Test Item Value Reference Range Interpretation Comments Alanine Aminotransferase (ALT/SGPT) (test code = 1742-6) < 6 0-55 [facility] Hdrlbel5873-18-83 05:57:00* Test Item Value Reference Range Interpretation Comments Total Protein (test code = 2885-2) 7.5 6.5-8.1 [facility] CenterAlbumin2019-11-17 05:57:00* Test Item Value Reference Range Interpretation Comments Albumin (test code = 1751-7) 2.7 3.5-5.0 L [facility] CenterGlobulin2019-11-17 05:57:00* Test Item Value Reference Range Interpretation Comments Globulin (test code = 19253-5) 4.8 2.3-3.5 H [facility] CenterAlbumin/Globulin Ateas9512-00-76 05:57:00 * Test Item Value Reference Range Interpretation Comments Albumin/Globulin Ratio (test code = 1759-0) 0.6 0.8-2.0 L [facility] CenterAlkaline Luwpomvcyuv9682-13-94 05:57:00* Test Item Value Reference Range Interpretation Comments Alkaline Phosphatase (test code = 6768-6) 87 40-150 [facility] Feievidxf9524-85-94 05:57:00* Test Item Value Reference Range Interpretation Comments Total Bilirubin (test code = 1974-2) 0.4 0.2-1.2 [facility] CenterAspartate Amino Transf (AST/SGOT) 2019-06-01 05:57:00* Test Item Value Reference Range Interpretation Comments Aspartate Amino Transf (AST/SGOT) (test code = Aspartate Amino Transf (AST/SGOT)) 11 5-34 [facility] CenterAlanine Aminotransferase (ALT/SGPT) 2019-06-01 05:57:00* Test Item Value Reference Range Interpretation Comments Alanine Aminotransferase (ALT/SGPT) (test code = 1742-6) < 6 0-55 [facility] CenterTotal Enprbci4854-30-57 05:57:00* Test Item Value Reference Range Interpretation Comments Total Protein (test code = 2885-2) 7.5 6.5-8.1 [facility] CenterAlbumin2019-11-17 05:57:00* Test Item Value Reference Range Interpretation Comments Albumin (test code = 1751-7) 2.7 3.5-5.0 L [facility] CenterGlobulin2019-11-17 05:57:00* Test Item Value Reference Range Interpretation Comments Globulin (test code = 51091-8) 4.8 2.3-3.5 H [facility] CenterAlbumin/Globulin Rniqa7500-55-65 05:57:00 * Test Item Value Reference Range Interpretation Comments Albumin/Globulin Ratio (test code = 1759-0) 0.6 0.8-2.0 L [facility] CenterAlkaline Xrlckolyhhj1146-22-69 05:57:00* Test Item Value Reference Range Interpretation Comments Alkaline Phosphatase (test code = 6768-6) 87 40-150 [facility] CenterCT PELVIS DX2387-15-70 17:28:00 [place] [address] Patient Name: ANGELA JEFFERS MR #: [id number] : 1945 Age/Sex: 74/F Req #: [id number] Adm Physician: Ordered by: KODY COLE BRASS MOLDER Report #: [id number] Location: ER Room/Bed: Procedure: [id number] CT/CT PELVIS WO Exam Date: 05/31/19 Exam Time: 1555 REPORT STATUS: Signed EXAM: CT P alexandre WITHOUT contrast INDICATION: Left hip pain radiating to the left lower extremity. COMPARISON: None. TECHNIQUE: Pelvis were scanned utilizing a mul tidetector helical scanner from the iliac crest to the pubic symphysis without administration of IV contrast. Coronal and sagittal reformations were obtaine d. Routine protocol was performed. IV CONTRAST: None. ORAL CONTRAST: Water RADIATION DOSE: Total DLP: 355 mGy*cm Estimated effective dose: (DLP x 0.015 x size factor) mSv COMPLICATIONS: None FINDINGS: LINES and TUBES: None. GI TRACT: No abnormal distention, wall thickening, or evidence of bowel obstruction. Diverticulosis in the distal descending and sigmoid colon. There is surround ing fat stranding and trace fluid about the distal descending and proximal sig moid colon; this findings are consistent with acute diverticulitis. PELVIC ORGANS/BLADDER: The uterus is absent. LYMPH NODES: No lymphadenopathy. VESSELS: There is severe atherosclerotic disease in the aorta and major michael rial branches. PERITONEUM / RETROPERITONEUM: No free air or fluid. BON ES: There are degenerative changes in the lumbar spine, bilateral hip and SI j oints. Bone island in the left acetabulum.. SOFT TISSUES: Unremarkable. IMPRESSION: 1. Acute sigmoid diverticulitis without abscess fo rmation. Recommend follow-up after treatment recommended resolution and exclud e underlying neoplasm. Signed by: Dr. Ramírez Warren M.D. on 019 5:31 PM Dictated By: RAMIRO WARREN MD, MD 30 Transcribed By: ARIEL on 05/31/191730 COPY TO: SHORT,KODY D BRASS MOLDER Prothrombin Lcao3247-95-25 16:14:00* Test Item Value Reference Range Interpretation Comments Prothrombin Time (test code = 5902-2) 13.5 11.9-14.5 [facility] CenterProthromb Time International Ratio 2019-05-31 16:14:00* Test Item Value Reference Range Interpretation Comments Prothromb Time International Ratio (test code = 6301-6) 0.98 Oral Anticoagulant Therapy INR Values:1. Low Intensity Therapy 1.5 - 2.02 . Moderate Intensity Therapy 2.0 - 3.03. High Intensity Therapy(1) 2.5 - 3. 54. High Intensity Therapy(2) 3.0 - 4.05. Panic Value INR > 5.0 [facility] CenterActivated Partial Thromboplast Time 2019-05-31 16:14:00* Test Item Value Reference Range Interpretation Comments Activated Partial Thromboplast Time (test code = 94528-4) 34.7 23.8-35.5 [facility] CenterProthrombin Obbk7247-93-51 16:14:00* Test Item Value Reference Range Interpretation Comments Prothrombin Time (test code = 5902-2) 13.5 11.9-14.5 [facility] CenterProthromb Time International Ratio 2019-05-31 16:14:00* Test Item Value Reference Range Interpretation Comments Prothromb Time International Ratio (test code = 6301-6) 0.98 Oral Anticoagulant Therapy INR Values:1. Low Intensity Therapy 1.5 - 2.02 . Moderate Intensity Therapy 2.0 - 3.03. High Intensity Therapy(1) 2.5 - 3. 54. High Intensity Therapy(2) 3.0 - 4.05. Panic Value INR > 5.0 [facility] CenterActivated Partial Thromboplast Time 2019-05-31 16:14:00* Test Item Value Reference Range Interpretation Comments Activated Partial Thromboplast Time (test code = 02385-2) 34.7 23.8-35.5 [facility] CenterProthrombin Zmxi1257-48-05 16:14:00* Test Item Value Reference Range Interpretation Comments Prothrombin Time (test code = 5902-2) 13.5 11.9-14.5 [facility] CenterProthromb Time International Ratio 2019-05-31 16:14:00* Test Item Value Reference Range Interpretation Comments Prothromb Time International Ratio (test code = 6301-6) 0.98 Oral Anticoagulant Therapy INR Values:1. Low Intensity Therapy 1.5 - 2.02 . Moderate Intensity Therapy 2.0 - 3.03. High Intensity Therapy(1) 2.5 - 3. 54. High Intensity Therapy(2) 3.0 - 4.05. Panic Value INR > 5.0 [facility] CenterActivated Partial Thromboplast Time 2019-05-31 16:14:00* Test Item Value Reference Range Interpretation Comments Activated Partial Thromboplast Time (test code = 54289-1) 34.7 23.8-35.5 [facility] CenterINTR CATH W/TRLUML BALO QYXSZC0792-72-57 16:04:00 [place] [address] Patient Name: ANGELA JEFFERS MR #: [id number] : 1945 Age/Sex: 74/F Req #: [id number] Adm Physician: CHERELLE VELASQUEZ MD Ordered by: ISHA DEMARCO MD Report #: [id number] Location: [place] [address] Room/Bed: [facility] Procedure: [id number] IR/INTR CATH W/TRLUML BALO ANGIOP Exam Date: 05/19/19 Exam Time: 1300 REPORT STATUS: Si gned PROCEDURE: Dialysis fistulagram and interventions Procedural Person jeff Attending physician(s): Gustavo To MD Fellow physician(s): None Resid ent physician(s): None Advanced practice provider(s): None Pre-procedure diagnosis: ESRD on HD, Decreased clearance Post-procedure diagnosis: Same In dication: Decreased clearance Additional clinical history: Decreased thrill, increased pulsatility. Complications: No immediate complications. IMPR ESSION: Dialysis fistulagram demonstrates . Plan: The fist cinda can be used for dialysis immediately. PROCEDURE SUMMARY: - Access of dialysis fistu la without ultrasound guidance - Dialysis fistulagram - Additional procedur e(s): Angioplasty of venous outflow stenosis PROCEDURE DETAILS: Pre-pr ocedure Consent: Informed consent for the procedure including risks, benefits and alternatives was obtained and time-out was performed prior to the procedur e. Preparation: The site was prepared and draped using maximal sterile barrier technique including cutaneous antisepsis. Anesthesia/sedation Level of anesthesia/sedation: Moderate sedation (conscious sedation) Versed, Fentanyl Anesthesia/sedation administered by: Independent trained observer under atte nding supervision with continuous monitoring of the patient?s level of conscio usness and physiologic status Total intra-service sedation time (minutes): 45 Initial dialysis fistula evaluation Dialysis fistula side: Left Dialysis fistula type: Brachial-basilic Initial fistula palpation: Pulse but no thrill Access Local anesthesia was administered. The fistula was accessed using manual palpation. A 7Fr Greenlandic sheath was placed. Access technique: Microp uncture set with 21 gauge needle Access direction: Toward venous outflow Dialysis fistulagram Initial fistulagram was performed. 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 Angioplasty balloon(s): 8mm, 10mm Conq uest balloons. Final fistulagram Final fistulagram was performed. Findi ngs: Resolution of previously seen stenoses. Final fistula palpation: Palpable thrill Closure The sheath was removed and hemostasis was achieved with s uture. A sterile dressing was applied. Contrast Contrast agent: Isovue 300 Contrast volume (mL): 60 Radiation Dose Fluoroscopy time (minutes): 10.4 Reference air kerma (mGy): 56.7 Additional Details Additional description of procedure: None Equipment details: None Specimens removed: No ne Estimated blood loss (mL): Less than 10 Standardized report: SIR_Dialysis FistulaInterventions_v3 Attestation Signer name: Gustavo To MD I attes t that I was present for the entire procedure. I reviewed the stored images an d agree with the report as written. Signed by: Gustavo To MD on 019 4:10 PM Dictated By: GUSTAVO TO MD 09 Transcribed By: ARIEL on 05/30/191609 COPY TO: ISHA DEMARCO MD HIP LEFT 2-3 VW (+/- PELVIS)2019-05-26 05:09:00 [place] [address] Patient Name: ANGELA JEFFERS MR #: [id number] : 1945 Age/Sex: 74/F Req #: [id number] Adm Physician: Ordered by: XIOMARA TOLENTINO DO Report #: [id number] Location: ER Room/Bed: Procedure: [id number] DX/HIP LEFT 2-3 VW (+/- PELVIS) Exam Date: Exam Ti me: REPORT STATUS: Signed Ex am: AP radiograph of the pelvis-1 view; left hip radiographs-2 views Histor y: Pain. Comparison: None. Findings: Diffuse osteopenia. No eviden ce of acute fracture or malalignment. Bowel gas partially obscures visualizati on of the sacrum and bilateral iliac bones. There are moderate degenerative changes of bilateral hips. Diffuse atherosclerotic vascular calcification s. Impression: No acute radiographic abnormality. Moderate degenerative c hanges of bilateral hips. Signed by: Dr. Yi Clark MD on 05/26/2019 5:1 4 AM Dictated By: YI CLARK MD 3 Transcribed By: ARIEL on 05/26/19513 COPY TO: XIOMARA HAMILTON DO Bedside Ccbcnem2104-96-00 00:37:00* Test Item Value Reference Range Interpretation Comments Bedside Glucose (test code = 44831-0) 167 70-120 H Meter ID: [id number] [facility] CenterBed[facility] Glucose 2019-05-19 17:41:00* Test Item Value Reference Range Interpretation Comments Bedside Glucose (test code = 21533-1) 170 70-120 H Meter ID: [id number] Regional Medical CenterB-Type Natriuretic Xnqxckx5760-04-37 17:24:00* Test Item Value Reference Range Interpretation Comments B-Type Natriuretic Peptide (test code = 69661-1) 226.4 0-100 H [facility] CenterB-Type Natriuretic Rigjjnq1427-39-68 17:24:00* Test Item Value Reference Range Interpretation Comments B-Type Natriuretic Peptide (test code = 32683-8) 226.4 0-100 H [facility] CenterB-Type Natriuretic Zrkjxqa6164-29-75 17:24:00* Test Item Value Reference Range Interpretation Comments B-Type Natriuretic Peptide (test code = 08498-3) 226.4 0-100 H [facility] CenterB-Type Natriuretic Gfkvizw3255-20-40 17:24:00* Test Item Value Reference Range Interpretation Comments B-Type Natriuretic Peptide (test code = 08679-0) 226.4 0-100 H [facility] CenterWhite Blood Skxex5758-95-37 17:01:00* Test Item Value Reference Range Interpretation Comments White Blood Count (test code = 6690-2) 8.14 4.8-10.8 [facility] CenterRed Blood Tdjmr2157-93-78 17:01:00* Test Item Value Reference Range Interpretation Comments Red Blood Count (test code = 789-8) 3.62 3.6-5.1 [facility] CenterHemoglobin2019-11-04 17:01:00* Test Item Value Reference Range Interpretation Comments Hemoglobin (test code = 43108-1) 10.6 12.0-16.0 L [facility] CenterHematocrit2019-11-04 17:01:00* Test Item Value Reference Range Interpretation Comments Hematocrit (test code = 4544-3) 33.2 34.2-44.1 L [facility] CenterMean Corpuscular Txblue2127-78-81 17:01:00* Test Item Value Reference Range Interpretation Comments Mean Corpuscular Volume (test code = 787-2) 91.7 81-99 [facility] CenterMean Corpuscular Oohecsmtsr4326-00-43 17:01:00* Test Item Value Reference Range Interpretation Comments Mean Corpuscular Hemoglobin (test code = 785-6) 29.3 28-32 [facility] CenterMean Corpuscular Hemoglobin Concent 2019-05-19 17:01:00* Test Item Value Reference Range Interpretation Comments Mean Corpuscular Hemoglobin Concent (test code = 786-4) 31.9 31-35 [facility] CenterRed Cell Distribution Xwefr0079-19-66 17:01:00* Test Item Value Reference Range Interpretation Comments Red Cell Distribution Width (test code = 67595-9) 16.1 11.7 -14.4 H [facility] CenterPlatelet Pogdj0641-98-97 17:01:00* Test Item Value Reference Range Interpretation Comments Platelet Count (test code = 777-3) 275 140-360 [facility] CenterNeutrophils (%) (Auto)2019-05-19 17:01:00 * Test Item Value Reference Range Interpretation Comments Neutrophils (%) (Auto) (test code = 42282-0) 72.4 38.7-80.0 [facility] CenterLymphocytes (%) (Auto)2019-05-19 17:01:00 * Test Item Value Reference Range Interpretation Comments Lymphocytes (%) (Auto) (test code = 736-9) 14.0 18.0-39.1 L [facility] CenterMonocytes (%) (Auto)2019-05-19 17:01:00* Test Item Value Reference Range Interpretation Comments Monocytes (%) (Auto) (test code = 5905-5) 8.8 4.4-11.3 [facility] CenterEosinophils (%) (Auto)2019-05-19 17:01:00 * Test Item Value Reference Range Interpretation Comments Eosinophils (%) (Auto) (test code = 713-8) 3.6 0.0-6.0 [facility]Bas[facility] (%) (Auto)2019-05-19 17:01:00* Test Item Value Reference Range Interpretation Comments Basophils (%) (Auto) (test code = 706-2) 0.2 0.0-1.0 [facility] CenterIM GRANULOCYTES %2019-05-19 17:01:00* Test Item Value Reference Range Interpretation Comments IM GRANULOCYTES % (test code = IM GRANULOCYTES %) 1.0 0.0- 1.0 [facility] CenterNeutrophils # (Auto)2019-05-19 17:01:00* Test Item Value Reference Range Interpretation Comments Neutrophils # (Auto) (test code = 751-8) 5.9 2.1-6.9 [facility] CenterLymphocytes # (Auto)2019-05-19 17:01:00* Test Item Value Reference Range Interpretation Comments Lymphocytes # (Auto) (test code = 17255-8) 1.1 1.0-3.2 [facility] CenterMonocytes # (Auto)2019-05-19 17:01:00* Test Item Value Reference Range Interpretation Comments Monocytes # (Auto) (test code = 742-7) 0.7 0.2-0.8 [facility] CenterEosinophils # (Auto)2019-05-19 17:01:00* Test Item Value Reference Range Interpretation Comments Eosinophils # (Auto) (test code = 711-2) 0.3 0.0-0.4 [facility] CenterBasophils # (Auto)2019-05-19 17:01:00* Test Item Value Reference Range Interpretation Comments Basophils # (Auto) (test code = 704-7) 0.0 0.0-0.1 [facility] CenterAbsolute Immature Granulocyte (auto 2019-05-19 17:01:00* Test Item Value Reference Range Interpretation Comments Absolute Immature Granulocyte (auto (toby t code = Absolute Immature Granulocyte (auto) 0.08 0-0.1 [facility] CenterWhite Blood Cmrld7519-52-46 17:01:00* Test Item Value Reference Range Interpretation Comments White Blood Count (test code = 6690-2) 8.14 4.8-10.8 [facility] CenterRed Blood Gmpdf8948-88-12 17:01:00* Test Item Value Reference Range Interpretation Comments Red Blood Count (test code = 789-8) 3.62 3.6-5.1 [facility] CenterHemoglobin2019-11-04 17:01:00* Test Item Value Reference Range Interpretation Comments Hemoglobin (test code = 16319-3) 10.6 12.0-16.0 L [facility] CenterHematocrit2019-11-04 17:01:00* Test Item Value Reference Range Interpretation Comments Hematocrit (test code = 4544-3) 33.2 34.2-44.1 L [facility] CenterMean Corpuscular Hstipt2099-30-75 17:01:00* Test Item Value Reference Range Interpretation Comments Mean Corpuscular Volume (test code = 787-2) 91.7 81-99 [facility] CenterMean Corpuscular Ljpnryiwtf2031-60-98 17:01:00* Test Item Value Reference Range Interpretation Comments Mean Corpuscular Hemoglobin (test code = 785-6) 29.3 28-32 [facility] CenterMean Corpuscular Hemoglobin Concent 2019-05-19 17:01:00* Test Item Value Reference Range Interpretation Comments Mean Corpuscular Hemoglobin Concent (test code = 786-4) 31.9 31-35 [facility] CenterRed Cell Distribution Rwodo2594-65-27 17:01:00* Test Item Value Reference Range Interpretation Comments Red Cell Distribution Width (test code = 60231-7) 16.1 11.7 -14.4 H [facility] CenterPlatelet Vwbcn0521-13-61 17:01:00* Test Item Value Reference Range Interpretation Comments Platelet Count (test code = 777-3) 275 140-360 [facility] CenterNeutrophils (%) (Auto)2019-05-19 17:01:00 * Test Item Value Reference Range Interpretation Comments Neutrophils (%) (Auto) (test code = 93383-7) 72.4 38.7-80.0 [facility] CenterLymphocytes (%) (Auto)2019-05-19 17:01:00 * Test Item Value Reference Range Interpretation Comments Lymphocytes (%) (Auto) (test code = 736-9) 14.0 18.0-39.1 L [facility] CenterMonocytes (%) (Auto)2019-05-19 17:01:00* Test Item Value Reference Range Interpretation Comments Monocytes (%) (Auto) (test code = 5905-5) 8.8 4.4-11.3 [facility] CenterEosinophils (%) (Auto)2019-05-19 17:01:00 * Test Item Value Reference Range Interpretation Comments Eosinophils (%) (Auto) (test code = 713-8) 3.6 0.0-6.0 [facility] CenterBasophils (%) (Auto)2019-05-19 17:01:00* Test Item Value Reference Range Interpretation Comments Basophils (%) (Auto) (test code = 706-2) 0.2 0.0-1.0 [facility] CenterIM GRANULOCYTES %2019-05-19 17:01:00* Test Item Value Reference Range Interpretation Comments IM GRANULOCYTES % (test code = IM GRANULOCYTES %) 1.0 0.0- 1.0 [facility] CenterNeutrophils # (Auto)2019-05-19 17:01:00* Test Item Value Reference Range Interpretation Comments Neutrophils # (Auto) (test code = 751-8) 5.9 2.1-6.9 [facility] CenterLymphocytes # (Auto)2019-05-19 17:01:00* Test Item Value Reference Range Interpretation Comments Lymphocytes # (Auto) (test code = 40326-0) 1.1 1.0-3.2 [facility] CenterMonocytes # (Auto)2019-05-19 17:01:00* Test Item Value Reference Range Interpretation Comments Monocytes # (Auto) (test code = 742-7) 0.7 0.2-0.8 [facility] CenterEosinophils # (Auto)2019-05-19 17:01:00* Test Item Value Reference Range Interpretation Comments Eosinophils # (Auto) (test code = 711-2) 0.3 0.0-0.4 [facility] CenterBasophils # (Auto)2019-05-19 17:01:00* Test Item Value Reference Range Interpretation Comments Basophils # (Auto) (test code = 704-7) 0.0 0.0-0.1 [facility] CenterAbsolute Immature Granulocyte (auto 2019-05-19 17:01:00* Test Item Value Reference Range Interpretation Comments Absolute Immature Granulocyte (auto (toby t code = Absolute Immature Granulocyte (auto) 0.08 0-0.1 [facility] CenterProthrombin Dmbb0177-81-74 08:51:00* Test Item Value Reference Range Interpretation Comments Prothrombin Time (test code = 5902-2) 13.6 11.9-14.5 [facility] CenterProthromb Time International Ratio 2019-05-19 08:51:00* Test Item Value Reference Range Interpretation Comments Prothromb Time International Ratio (test code = 6301-6) 0.99 Oral Anticoagulant Therapy INR Values:1. Low Intensity Therapy 1.5 - 2.02 . Moderate Intensity Therapy 2.0 - 3.03. High Intensity Therapy(1) 2.5 - 3. 54. High Intensity Therapy(2) 3.0 - 4.05. Panic Value INR > 5.0 [facility] CenterProthrombin Fwvo9967-90-00 08:51:00* Test Item Value Reference Range Interpretation Comments Prothrombin Time (test code = 5902-2) 13.6 11.9-14.5 [facility] CenterProthromb Time International Ratio 2019-05-19 08:51:00* Test Item Value Reference Range Interpretation Comments Prothromb Time International Ratio (test code = 6301-6) 0.99 Oral Anticoagulant Therapy INR Values:1. Low Intensity Therapy 1.5 - 2.02 . Moderate Intensity Therapy 2.0 - 3.03. High Intensity Therapy(1) 2.5 - 3. 54. High Intensity Therapy(2) 3.0 - 4.05. Panic Value INR > 5.0 [facility] CenterBedside Fpxiaqh8349-37-11 06:57:00* Test Item Value Reference Range Interpretation Comments Bedside Glucose (test code = 45448-1) 129 70-120 H Meter ID: [id number] [facility] Clear Lakeodium Level 2019-05-17 05:49:00* Test Item Value Reference Range Interpretation Comments Sodium Level (test code = 2951-2) 134 136-145 L [facility] CenterPotassium Ucucf9360-36-76 05:49:00* Test Item Value Reference Range Interpretation Comments Potassium Level (test code = 2823-3) 3.8 3.5-5.1 [facility] CenterChloride Hjfhw8627-79-73 05:49:00* Test Item Value Reference Range Interpretation Comments Chloride Level (test code = 2075-0) 94 98-107 L [facility] CenterCarbon Dioxide Ezhsp4707-84-89 05:49:00* Test Item Value Reference Range Interpretation Comments Carbon Dioxide Level (test code = 2028-9) 28 22-29 [facility] CenterAnion Vud6459-31-84 05:49:00* Test Item Value Reference Range Interpretation Comments Anion Gap (test code = 14764-4) 15.8 8-16 [facility] CenterBlood Urea Coyaepis0567-21-61 05:49:00* Test Item Value Reference Range Interpretation Comments Blood Urea Nitrogen (test code = 3094-0) 26 7-26 [facility] CenterCreatinine2019-11-02 05:49:00* Test Item Value Reference Range Interpretation Comments Creatinine (test code = 2160-0) 6.41 0.57-1.11 H [facility] CenterBUN/Creatinine Cjbrw5811-35-97 05:49:00* Test Item Value Reference Range Interpretation Comments BUN/Creatinine Ratio (test code = 3097-3) 4 6-25 L [facility] CenterEstimat Glomerular Filtration Rate 2019-05-17 05:49:00* Test Item Value Reference Range Interpretation Comments Estimat Glomerular Filtration Rate (test code = 585042182) 8 >60 L Ranges were taken from the National Kidney Disease Education Program and the [facility] Kid[facility] Foundation literature.Reference ranges:60 or greater: Wvncrh66-98 ( for 3 consecutive months): Chronic kidney disease 15 or less: Kidney failureCHI [facility] Verde [facility] Medical CenterGlucose Jwmuz4529-09-70 05:49:00* Test Item Value Reference Range Interpretation Comments Glucose Level (test code = DJT5816) 142 74-118 H [facility] CenterCalcium Lbbah5378-10-21 05:49:00* Test Item Value Reference Range Interpretation Comments Calcium Level (test code = 48674-9) 8.4 8.4-10.2 [facility] Lakeodium Loxdx9099-13-87 05:49:00* Test Item Value Reference Range Interpretation Comments Sodium Level (test code = 2951-2) 134 136-145 L [facility] CenterPotassium Kyphw1242-60-61 05:49:00* Test Item Value Reference Range Interpretation Comments Potassium Level (test code = 2823-3) 3.8 3.5-5.1 [facility] CenterChloride Jaqfw3975-86-95 05:49:00* Test Item Value Reference Range Interpretation Comments Chloride Level (test code = 2075-0) 94 98-107 L [facility] CenterCarbon Dioxide Twuyo0871-78-80 05:49:00* Test Item Value Reference Range Interpretation Comments Carbon Dioxide Level (test code = 2028-9) 28 22-29 [facility] CenterAnion Gyd4087-22-21 05:49:00* Test Item Value Reference Range Interpretation Comments Anion Gap (test code = 18195-4) 15.8 8-16 [facility] CenterBlood Urea Mxgvlwqy1364-37-91 05:49:00* Test Item Value Reference Range Interpretation Comments Blood Urea Nitrogen (test code = 3094-0) 26 7-26 [facility] CenterCreatinine2019-11-02 05:49:00* Test Item Value Reference Range Interpretation Comments Creatinine (test code = 2160-0) 6.41 0.57-1.11 H [facility] CenterBUN/Creatinine Cngqr1720-59-29 05:49:00* Test Item Value Reference Range Interpretation Comments BUN/Creatinine Ratio (test code = 3097-3) 4 6-25 L [facility] CenterEstimat Glomerular Filtration Rate 2019-05-17 05:49:00* Test Item Value Reference Range Interpretation Comments Estimat Glomerular Filtration Rate (test code = 332135422) 8 >60 L Ranges were taken from the National Kidney Disease Education Program and the [facility] Foundation literature.Reference ranges:60 or greater: Bllerb20-77 ( for 3 consecutive months): Chronic kidney disease 15 or less: Kidney failureKnapp Medical CenterGlucose Quigs2651-22-06 05:49:00* Test Item Value Reference Range Interpretation Comments Glucose Level (test code = WEP2925) 142 74-118 H [facility] CenterCalcium Elsej5423-03-76 05:49:00* Test Item Value Reference Range Interpretation Comments Calcium Level (test code = 51759-5) 8.4 8.4-10.2 [facility] Lakeodium Liiwq7876-33-74 05:49:00* Test Item Value Reference Range Interpretation Comments Sodium Level (test code = 2951-2) 134 136-145 L [facility] CenterPotassium Ucytt3538-24-81 05:49:00* Test Item Value Reference Range Interpretation Comments Potassium Level (test code = 2823-3) 3.8 3.5-5.1 [facility] CenterChloride Ewmxw5531-88-81 05:49:00* Test Item Value Reference Range Interpretation Comments Chloride Level (test code = 2075-0) 94 98-107 L [facility] CenterCarbon Dioxide Ctgyw0918-97-27 05:49:00* Test Item Value Reference Range Interpretation Comments Carbon Dioxide Level (test code = 2028-9) 28 22-29 [facility] CenterAnion Doh5614-76-82 05:49:00* Test Item Value Reference Range Interpretation Comments Anion Gap (test code = 89681-3) 15.8 8-16 [facility] CenterBlood Urea Jztexdyl2772-72-06 05:49:00* Test Item Value Reference Range Interpretation Comments Blood Urea Nitrogen (test code = 3094-0) 26 7-26 [facility] CenterCreatinine2019-11-02 05:49:00* Test Item Value Reference Range Interpretation Comments Creatinine (test code = 2160-0) 6.41 0.57-1.11 H [facility] CenterBUN/Creatinine Ztxlz3170-04-44 05:49:00* Test Item Value Reference Range Interpretation Comments BUN/Creatinine Ratio (test code = 3097-3) 4 6-25 L [facility] CenterEstimat Glomerular Filtration Rate 2019-05-17 05:49:00* Test Item Value Reference Range Interpretation Comments Estimat Glomerular Filtration Rate (test code = 575501285) 8 >60 L Ranges were taken from the National Kidney Disease Education Program and the [facility] literature.Reference ranges:60 or greater: Ccmbxo94-56 ( for 3 consecutive months): Chronic kidney disease 15 or less: Kidney failureKnapp Medical CenterGlucose Tocwt3700-02-13 05:49:00* Test Item Value Reference Range Interpretation Comments Glucose Level (test code = PIS8565) 142 74-118 H [facility] CenterCalcium Vfenn8900-91-81 05:49:00* Test Item Value Reference Range Interpretation Comments Calcium Level (test code = 68376-9) 8.4 8.4-10.2 [facility] CenterWhite Blood Oifoi9875-83-37 05:31:00* Test Item Value Reference Range Interpretation Comments White Blood Count (test code = 6690-2) 8.26 4.8-10.8 [facility] CenterRed Blood Oxlpd6961-48-63 05:31:00* Test Item Value Reference Range Interpretation Comments Red Blood Count (test code = 789-8) 3.40 3.6-5.1 L [facility] CenterHemoglobin2019-11-02 05:31:00* Test Item Value Reference Range Interpretation Comments Hemoglobin (test code = 53314-3) 10.1 12.0-16.0 L [facility] CenterHematocrit2019-11-02 05:31:00* Test Item Value Reference Range Interpretation Comments Hematocrit (test code = 4544-3) 32.6 34.2-44.1 L [facility] CenterMean Corpuscular Ajashu2320-30-57 05:31:00* Test Item Value Reference Range Interpretation Comments Mean Corpuscular Volume (test code = 787-2) 95.9 81-99 [facility] CenterMean Corpuscular Yltckixpvm4896-76-05 05:31:00* Test Item Value Reference Range Interpretation Comments Mean Corpuscular Hemoglobin (test code = 785-6) 29.7 28-32 [facility] CenterMean Corpuscular Hemoglobin Concent 2019-05-17 05:31:00* Test Item Value Reference Range Interpretation Comments Mean Corpuscular Hemoglobin Concent (test code = 786-4) 31.0 31-35 [facility] CenterRed Cell Distribution Yihxl9676-54-38 05:31:00* Test Item Value Reference Range Interpretation Comments Red Cell Distribution Width (test code = 66356-0) 16.5 11.7 -14.4 H [facility] CenterPlatelet Drbpa1214-51-08 05:31:00* Test Item Value Reference Range Interpretation Comments Platelet Count (test code = 777-3) 288 140-360 [facility] CenterNeutrophils (%) (Auto)2019-05-17 05:31:00 * Test Item Value Reference Range Interpretation Comments Neutrophils (%) (Auto) (test code = 09146-8) 64.9 38.7-80.0 [facility] CenterLymphocytes (%) (Auto)2019-05-17 05:31:00 * Test Item Value Reference Range Interpretation Comments Lymphocytes (%) (Auto) (test code = 736-9) 18.4 18.0-39.1 [facility] CenterMonocytes (%) (Auto)2019-05-17 05:31:00* Test Item Value Reference Range Interpretation Comments Monocytes (%) (Auto) (test code = 5905-5) 11.9 4.4-11.3 H [facility] CenterEosinophils (%) (Auto)2019-05-17 05:31:00 * Test Item Value Reference Range Interpretation Comments Eosinophils (%) (Auto) (test code = 713-8) 3.5 0.0-6.0 [facility] CenterBasophils (%) (Auto)2019-05-17 05:31:00* Test Item Value Reference Range Interpretation Comments Basophils (%) (Auto) (test code = 706-2) 0.5 0.0-1.0 [facility] CenterIM GRANULOCYTES %2019-05-17 05:31:00* Test Item Value Reference Range Interpretation Comments IM GRANULOCYTES % (test code = IM GRANULOCYTES %) 0.8 0.0- 1.0 [facility] CenterNeutrophils # (Auto)2019-05-17 05:31:00* Test Item Value Reference Range Interpretation Comments Neutrophils # (Auto) (test code = 751-8) 5.4 2.1-6.9 [facility] CenterLymphocytes # (Auto)2019-05-17 05:31:00* Test Item Value Reference Range Interpretation Comments Lymphocytes # (Auto) (test code = 01063-3) 1.5 1.0-3.2 [facility] CenterMonocytes # (Auto)2019-05-17 05:31:00* Test Item Value Reference Range Interpretation Comments Monocytes # (Auto) (test code = 742-7) 1.0 0.2-0.8 H [facility] CenterEosinophils # (Auto)2019-05-17 05:31:00* Test Item Value Reference Range Interpretation Comments Eosinophils # (Auto) (test code = 711-2) 0.3 0.0-0.4 [facility] CenterBasophils # (Auto)2019-05-17 05:31:00* Test Item Value Reference Range Interpretation Comments Basophils # (Auto) (test code = 704-7) 0.0 0.0-0.1 [facility] CenterAbsolute Immature Granulocyte (auto 2019-05-17 05:31:00* Test Item Value Reference Range Interpretation Comments Absolute Immature Granulocyte (auto (toby t code = Absolute Immature Granulocyte (auto) 0.07 0-0.1 [facility] A IgM Yszuksxj2615-56-14 22:26:00* Test Item Value Reference Range Interpretation Comments Hepatitis A IgM Antibody (test code = 85557-6) Negative Negativ e [facility] B Surface Wgmuhff0521-56-02 22:26:00* Test Item Value Reference Range Interpretation Comments Hepatitis B Surface Antigen (test code = 5196-1) Negative Negat jinny [facility] B Core IgM Dvqfayzh6125-27-68 22:26:00* Test Item Value Reference Range Interpretation Comments Hepatitis B Core IgM Antibody (test code = 16614-9) Negative Ne gative [facility] C Udysykuw0755-12-86 22:26:00* Test Item Value Reference Range Interpretation Comments Hepatitis C Antibody (test code = 51407-9) <0.1 0.0-0.9 Negative: < 0.8 Indeterminate: 0.8 - 0.9 Positive: > 0.9 The CDC recommends that a positive HCV antibody result be followed up with a HCV Nucleic Acid Amplification test (129409).Performed at: - [facility] [id number] Director: Ronald Arcos MD, Phone: [phone]. Joseph Medical Center A IgM Antibody 2019-05-16 22:26:00* Test Item Value Reference Range Interpretation Comments Hepatitis A IgM Antibody (test code = 98180-0) Negative Negativ e [facility] B Surface Ihwwshr0190-95-64 22:26:00* Test Item Value Reference Range Interpretation Comments Hepatitis B Surface Antigen (test code = 5196-1) Negative Negat jinny [facility] B Core IgM Xnybsmiy1767-40-89 22:26:00* Test Item Value Reference Range Interpretation Comments Hepatitis B Core IgM Antibody (test code = 29049-1) Negative Ne [facility] C Vdfxlxgd6710-46-00 22:26:00* Test Item Value Reference Range Interpretation Comments Hepatitis C Antibody (test code = 15239-2) <0.1 0.0-0.9 Negative: < 0.8 Indeterminate: 0.8 - 0.9 Positive: > 0.9 The CDC recommends that a positive HCV antibody result be followed up with a HCV Nucleic Acid Amplification test (943524).Performed at: [facility] [id number] Director: Ronald Arcos MD, Phone: [phone]. Joseph Medical Center A IgM Antibody 2019-05-16 22:26:00* Test Item Value Reference Range Interpretation Comments Hepatitis A IgM Antibody (test code = 04165-3) [facility] B Surface Bbwoqgr0443-41-44 22:26:00* Test Item Value Reference Range Interpretation Comments Hepatitis B Surface Antigen (test code = 5196-1) Negative Negat [facility] Core IgM Qrwptdpl0495-44-98 22:26:00* Test Item Value Reference Range Interpretation Comments Hepatitis B Core IgM Antibody (test code = 80656-7) Negative Ne [facility] C Ugaxtopt3094-64-00 22:26:00* Test Item Value Reference Range Interpretation Comments Hepatitis C Antibody (test code = 67416-2) <0.1 0.0-0.9 Negative: < 0.8 Indeterminate: 0.8 - 0.9 Positive: > 0.9 The CDC recommends that a positive HCV antibody result be followed up with a HCV Nucleic Acid Amplification test (600519).Performed at: [facility] [address] [id number] Director: Ronald Arcos MD, Phone: [phone]. Joseph Medical Center A IgM Antibody 2019-05-16 22:26:00* Test Item Value Reference Range Interpretation Comments Hepatitis A IgM Antibody (test code = 63698-0) Negative Negativ [facility] C Tbjyckgu3085-34-38 22:26:00* Test Item Value Reference Range Interpretation Comments Hepatitis C Antibody (test code = 49818-7) <0.1 0.0-0.9 Negative: < 0.8 Indeterminate: 0.8 - 0.9 Positive: > 0.9 The CDC recommends that a positive HCV antibody result be followed up with a HCV Nucleic Acid Amplification test (506833).Performed at: [facility] [id number] Director: Ronald Arcos MD, Phone: [phone]. Joseph Medical Center A IgM Antibody 2019-05-16 22:26:00* Test Item Value Reference Range Interpretation Comments Hepatitis A IgM Antibody (test code = 48177-9) Negative Negativ [facility] Kwumvjdd7983-32-96 22:26:00* Test Item Value Reference Range Interpretation Comments Hepatitis C Antibody (test code = 77938-3) <0.1 0.0-0.9 Negative: < 0.8 Indeterminate: 0.8 - 0.9 Positive: > 0.9 The CDC recommends that a positive HCV antibody result be followed up with a HCV Nucleic Acid Amplification test (712558).Performed at: [facility] [id number] Director: Ronald Arcos MD, Phone: [phone]. Joseph Medical Center A IgM Antibody 2019-05-16 22:26:00* Test Item Value Reference Range Interpretation Comments Hepatitis A IgM Antibody (test code = 21874-8) Negative Negativ [facility] C Oeuhvtru4125-70-03 22:26:00* Test Item Value Reference Range Interpretation Comments Hepatitis C Antibody (test code = 51358-9) <0.1 0.0-0.9 Negative: < 0.8 Indeterminate: 0.8 - 0.9 Positive: > 0.9 The CDC recommends that a positive HCV antibody result be followed up with a HCV Nucleic Acid Amplification test (339924).Performed at: [address] [id number] Director: Ronald Arcos MD, Phone: [phone]. Joseph Medical Center A IgM Antibody 2019-05-16 22:26:00* Test Item Value Reference Range Interpretation Comments Hepatitis A IgM Antibody (test code = 02566-1) Negative Negativ [facility] C Rurdcxvg6429-59-24 22:26:00* Test Item Value Reference Range Interpretation Comments Hepatitis C Antibody (test code = 48046-3) <0.1 0.0-0.9 Negative: < 0.8 Indeterminate: 0.8 - 0.9 Positive: > 0.9 The CDC recommends that a positive HCV antibody result be followed up with a HCV Nucleic Acid Amplification test (047401).Performed at: [address] [id number] Director: Ronald Arcos MD, Phone: [phone]. Joseph Medical Center A IgM Antibody 2019-05-16 22:26:00* Test Item Value Reference Range Interpretation Comments Hepatitis A IgM Antibody (test code = 19603-4) Negative [facility]Joint [facility] C Jpteijdj6882-80-16 22:26:00* Test Item Value Reference Range Interpretation Comments Hepatitis C Antibody (test code = 76248-9) <0.1 0.0-0.9 Negative: < 0.8 Indeterminate: 0.8 - 0.9 Positive: > 0.9 The CDC recommends that a positive HCV antibody result be followed up with a HCV Nucleic Acid Amplification test (134474).Performed at: [address] [id number] Director: Ronald Arcos MD, Phone: [phone] Medical CenterFree Thyroxine Amikh2359-52-93 07:07:00* Test Item Value Reference Range Interpretation Comments Free Thyroxine Index (test code = 22367-0) 0.7797 1.4-3.8 L [facility] CenterThyroxine (T4)2019-05-15 07:07:00* Test Item Value Reference Range Interpretation Comments Thyroxine (T4) (test code = 3026-2) 2.43 4.5-10.9 L Our current method for Total T4 is not recommended for use as the only marker fo r evaluating patients for thyroid disorders.[facility] CenterTriiodothyronine (T3) Jhelxr5101-21-98 07:07:00* Test Item Value Reference Range Interpretation Comments Triiodothyronine (T3) Uptake (test code = 3050-2) 32.09 22.5 -37.0 [facility] CenterThyroid Stimulating Hormone (TSH) 2019-05-15 07:07:00* Test Item Value Reference Range Interpretation Comments Thyroid Stimulating Hormone (TSH) (test code = 28144-7) 30.194 0.350-4.940 H [facility] CenterFree Thyroxine Gbtzw5069-40-06 07:07:00* Test Item Value Reference Range Interpretation Comments Free Thyroxine Index (test code = 21055-4) 0.7797 1.4-3.8 L [facility] CenterThyroxine (T4)2019-05-15 07:07:00* Test Item Value Reference Range Interpretation Comments Thyroxine (T4) (test code = 3026-2) 2.43 4.5-10.9 L Our current method for Total T4 is not recommended for use as the only marker fo r evaluating patients for thyroid disorders.[facility] Ffqoab5107-76-86 07:07:00* Test Item Value Reference Range Interpretation Comments Triiodothyronine (T3) Uptake (test code = 3050-2) 32.09 22.5 -37.0 [facility] CenterThyroid Stimulating Hormone (TSH) 2019-05-15 07:07:00* Test Item Value Reference Range Interpretation Comments Thyroid Stimulating Hormone (TSH) (test code = 64654-5) 30.194 0.350-4.940 H [facility]Fr Thyroxine Iqlaa0248-76-65 07:07:00* Test Item Value Reference Range Interpretation Comments Free Thyroxine Index (test code = 21005-0) 0.7797 1.4-3.8 L [facility] CenterThyroxine (T4)2019-05-15 07:07:00* Test Item Value Reference Range Interpretation Comments Thyroxine (T4) (test code = 3026-2) 2.43 4.5-10.9 L Our current method for Total T4 is not recommended for use as the only marker fo r evaluating patients for thyroid disorders.[facility] CenterTri[facility]ronine (T3) Jbsxrm8226-40-88 07:07:00* Test Item Value Reference Range Interpretation Comments Triiodothyronine (T3) Uptake (test code = 3050-2) 32.09 22.5 -37.0 [facility] CenterThy[facility]ormone (TSH) 2019-05-15 07:07:00* Test Item Value Reference Range Interpretation Comments Thyroid Stimulating Hormone (TSH) (test code = 65293-2) 30.194 0.350-4.940 H [facility]Fr Thyroxine Yktym6387-65-37 07:07:00* Test Item Value Reference Range Interpretation Comments Free Thyroxine Index (test code = 35832-1) 0.7797 1.4-3.8 L [facility] CenterThyroxine (T4)2019-05-15 07:07:00* Test Item Value Reference Range Interpretation Comments Thyroxine (T4) (test code = 3026-2) 2.43 4.5-10.9 L Our current method for Total T4 is not recommended for use as the only marker fo r evaluating patients for thyroid disorders.[facility] CenterTriiodothyronine (T3) Tekzrh2607-75-57 07:07:00* Test Item Value Reference Range Interpretation Comments Triiodothyronine (T3) Uptake (test code = 3050-2) 32.09 22.5 -37.0 [facility] CenterThy[facility] Stimulating Hormone (TSH) 2019-05-15 07:07:00* Test Item Value Reference Range Interpretation Comments Thyroid Stimulating Hormone (TSH) (test code = 40731-7) 30.194 0.350-4.940 H [facility]Fr Thyroxine Nqeqx0766-77-71 07:07:00* Test Item Value Reference Range Interpretation Comments Free Thyroxine Index (test code = 86912-4) 0.7797 1.4-3.8 L [facility] CenterThyroxine (T4)2019-05-15 07:07:00* Test Item Value Reference Range Interpretation Comments Thyroxine (T4) (test code = 3026-2) 2.43 4.5-10.9 L Our current method for Total T4 is not recommended for use as the only marker fo r evaluating patients for thyroid disorders.[facility] CenterTriiodothyronine (T3) Njjycs9330-11-01 07:07:00* Test Item Value Reference Range Interpretation Comments Triiodothyronine (T3) Uptake (test code = 3050-2) 32.09 22.5 -37.0 [facility] CenterThy[facility]ulating [facility]ormone (TSH) 2019-05-15 07:07:00* Test Item Value Reference Range Interpretation Comments Thyroid Stimulating Hormone (TSH) (test code = 24418-3) 30.194 0.350-4.940 H [facility]Fr Thyroxine Jyuqf2257-27-49 07:07:00* Test Item Value Reference Range Interpretation Comments Free Thyroxine Index (test code = 29947-8) 0.7797 1.4-3.8 L [facility] CenterThyroxine (T4)2019-05-15 07:07:00* Test Item Value Reference Range Interpretation Comments Thyroxine (T4) (test code = 3026-2) 2.43 4.5-10.9 L Our current method for Total T4 is not recommended for use as the only marker fo r evaluating patients for thyroid disorders.[facility] CenterTriiodothyronine (T3) Cuipkl8131-52-75 07:07:00* Test Item Value Reference Range Interpretation Comments Triiodothyronine (T3) Uptake (test code = 3050-2) 32.09 22.5 -37.0 [facility] CenterThyroid Stimulating Hormone (TSH) 2019-05-15 07:07:00* Test Item Value Reference Range Interpretation Comments Thyroid Stimulating Hormone (TSH) (test code = 39782-0) 30.194 0.350-4.940 H [facility] Thyroxine Apbgc7012-21-89 07:07:00* Test Item Value Reference Range Interpretation Comments Free Thyroxine Index (test code = 03914-0) 0.7797 1.4-3.8 L [facility] CenterThyroxine (T4)2019-05-15 07:07:00* Test Item Value Reference Range Interpretation Comments Thyroxine (T4) (test code = 3026-2) 2.43 4.5-10.9 L Our current method for Total T4 is not recommended for use as the only marker fo r evaluating patients for thyroid disorders.[facility] CenterTriiodothyronine (T3) Vlqevi2090-87-42 07:07:00* Test Item Value Reference Range Interpretation Comments Triiodothyronine (T3) Uptake (test code = 3050-2) 32.09 22.5 -37.0 [facility] CenterThyroid Stimulating Hormone (TSH) 2019-05-15 07:07:00* Test Item Value Reference Range Interpretation Comments Thyroid Stimulating Hormone (TSH) (test code = 41818-9) 30.194 0.350-4.940 H [facility] Thyroxine Qxaop7688-84-61 07:07:00* Test Item Value Reference Range Interpretation Comments Free Thyroxine Index (test code = 07412-0) 0.7797 1.4-3.8 L [facility] CenterThyroxine (T4)2019-05-15 07:07:00* Test Item Value Reference Range Interpretation Comments Thyroxine (T4) (test code = 3026-2) 2.43 4.5-10.9 L Our current method for Total T4 is not recommended for use as the only marker fo r evaluating patients for thyroid disorders.[facility] CenterTriiodothyronine (T3) Mehtjg4306-89-61 07:07:00* Test Item Value Reference Range Interpretation Comments Triiodothyronine (T3) Uptake (test code = 3050-2) 32.09 22.5 -37.0 [facility] CenterThyroid Stimulating Hormone (TSH) 2019-05-15 07:07:00* Test Item Value Reference Range Interpretation Comments Thyroid Stimulating Hormone (TSH) (test code = 06631-4) 30.194 0.350-4.940 H [facility] Vgcohfxrh8683-64-45 06:31:00* Test Item Value Reference Range Interpretation Comments Total Bilirubin (test code = 1975-2) 0.2 0.2-1.2 [facility] CenterAspartate Amino Transf (AST/SGOT) 2019-05-15 06:31:00* Test Item Value Reference Range Interpretation Comments Aspartate Amino Transf (AST/SGOT) (test code = Aspartate Amino Transf (AST/SGOT)) 18 5-34 [facility] CenterAlanine Aminotransferase (ALT/SGPT) 2019-05-15 06:31:00* Test Item Value Reference Range Interpretation Comments Alanine Aminotransferase (ALT/SGPT) (test code = 1742-6) 13 0-55 [facility] CenterTotal Wafesgb3044-74-30 06:31:00* Test Item Value Reference Range Interpretation Comments Total Protein (test code = 2885-2) 7.0 6.5-8.1 [facility] CenterAlbumin2019-10-31 06:31:00* Test Item Value Reference Range Interpretation Comments Albumin (test code = 1751-7) 2.2 3.5-5.0 L [facility] CenterGlobulin2019-10-31 06:31:00* Test Item Value Reference Range Interpretation Comments Globulin (test code = 60544-6) 4.8 2.3-3.5 H [facility] CenterAlbumin/Globulin Hpfvx2720-34-57 06:31:00 * Test Item Value Reference Range Interpretation Comments Albumin/Globulin Ratio (test code = 1759-0) 0.5 0.8-2.0 L [facility] CenterAlkaline Cbblvuuvjbs3559-85-34 06:31:00* Test Item Value Reference Range Interpretation Comments Alkaline Phosphatase (test code = 6768-6) 132 40-150 [facility] Enrmmvlvw8390-03-43 06:31:00* Test Item Value Reference Range Interpretation Comments Total Bilirubin (test code = 1975-2) 0.2 0.2-1.2 [facility] CenterAspartate Amino Transf (AST/SGOT) 2019-05-15 06:31:00* Test Item Value Reference Range Interpretation Comments Aspartate Amino Transf (AST/SGOT) (test code = Aspartate Amino Transf (AST/SGOT)) 18 5-34 [facility] CenterAlanine Aminotransferase (ALT/SGPT) 2019-05-15 06:31:00* Test Item Value Reference Range Interpretation Comments Alanine Aminotransferase (ALT/SGPT) (test code = 1742-6) 13 0-55 [facility] Mvcunbr5189-84-47 06:31:00* Test Item Value Reference Range Interpretation Comments Total Protein (test code = 2885-2) 7.0 6.5-8.1 [facility] CenterAlbumin2019-10-31 06:31:00* Test Item Value Reference Range Interpretation Comments Albumin (test code = 1751-7) 2.2 3.5-5.0 L [facility] CenterGlobulin2019-10-31 06:31:00* Test Item Value Reference Range Interpretation Comments Globulin (test code = 78867-4) 4.8 2.3-3.5 H [facility] CenterAlbumin/Globulin Girhf8484-06-04 06:31:00 * Test Item Value Reference Range Interpretation Comments Albumin/Globulin Ratio (test code = 1759-0) 0.5 0.8-2.0 L [facility] CenterAlkaline Woalumcwmpe4963-88-30 06:31:00* Test Item Value Reference Range Interpretation Comments Alkaline Phosphatase (test code = 6768-6) 132 40-150 [facility] CenterTotal Rdcnvfmva3553-43-70 06:31:00* Test Item Value Reference Range Interpretation Comments Total Bilirubin (test code = 1975-2) 0.2 0.2-1.2 [facility] CenterAspartate Amino Transf (AST/SGOT) 2019-05-15 06:31:00* Test Item Value Reference Range Interpretation Comments Aspartate Amino Transf (AST/SGOT) (test code = Aspartate Amino Transf (AST/SGOT)) 18 5-34 [facility] CenterAlanine Aminotransferase (ALT/SGPT) 2019-05-15 06:31:00* Test Item Value Reference Range Interpretation Comments Alanine Aminotransferase (ALT/SGPT) (test code = 1742-6) 13 0-55 [facility] CenterTotal Fqqdukl9331-37-36 06:31:00* Test Item Value Reference Range Interpretation Comments Total Protein (test code = 2885-2) 7.0 6.5-8.1 [facility] CenterAlbumin2019-10-31 06:31:00* Test Item Value Reference Range Interpretation Comments Albumin (test code = 1751-7) 2.2 3.5-5.0 L [facility] CenterGlobulin2019-10-31 06:31:00* Test Item Value Reference Range Interpretation Comments Globulin (test code = 17116-6) 4.8 2.3-3.5 H [facility] CenterAlbumin/Globulin Ujevx9207-92-34 06:31:00 * Test Item Value Reference Range Interpretation Comments Albumin/Globulin Ratio (test code = 1759-0) 0.5 0.8-2.0 L [facility] CenterAlkaline Sarilisxvrj7044-82-51 06:31:00* Test Item Value Reference Range Interpretation Comments Alkaline Phosphatase (test code = 6768-6) 132 40-150 [facility] CenterCT A[facility]EN/PELVIS [id number] 16:53:00 [facility] [address] [place] [address] Patient Name: ANGELA JEFFERS MR #: [id number] : 1945 Age/Sex: 74/F Req #: [id number] Adm Physician: Ordered by: ROSS CHI BRASS MOLDER Report #: [id number] Location: ER Room/Bed: Procedure: [id number] CT/CT ABDOMEN/PELVIS WO Exam Date: 05/14/19 Exam Ti me: 1540 REPORT STATUS: Signed E XAM: CT Abdomen and Pelvis WITHOUT intravenous contrast INDICATION: Recta l pain COMPARISON: CT abdomen and pelvis of 01/19/2019 TECHNIQUE: Abdome n and pelvis were scanned utilizing a multidetector helical scanner from the l torres base to the pubic symphysis without administration of IV contrast. Coronal and sagittal reformations were obtained. IV CONTRAST: None ORAL CO NTRAST: Gastrografin COMPLICATIONS: None RADIATION DOSE: Total DLP: 848.4 mGy*cm Dose modulation, iterative reconstruction, and/or weight based adjustment of the mA/kV was utilized to reduce the radiation dose to as low as reasonably achievable. FINDINGS: LOWER THORAX: Bibasilar subsegmental atelectasis. Coronary artery calcifications. HEPATOBILIARY: No focal liver lesions. No biliary ductal dilation. Small radiopaque stones in the gallbladder. SPLEEN: No splenomegaly. PANCREAS: No focal masses or ductal dilatation. ADRENALS: Unchanged adrenal thickening with more focal 1.5 cm left adrenal nodule measuring 25HU. KIDNEYS/URETERS: Unchanged right midpole renal cyst. No hydronephrosis. Atrophic appearance of the left kidney. PELVIC ORGANS/BLADDER: Status post hysterectomy. PERITONEUM / RETROPE RITONEUM: No free air or fluid. LYMPH NODES: No lymphadenopathy. VESSELS: He emilia diffuse athetotic calcifications of the nonaneurysmal abdominal aorta and major branches. GI TRACT: Large stool burden in the rectum. Again seen is p rominent diverticulosis of the sigmoid colon with segmental wall thickening an d pericolonic fat stranding associated with a cluster of diverticulum at the proximal sigmoid colon. This appears essentially unchanged from the prior study of 01/19/2019 at which point the patient had acute diverticulitis. No new bowel wall thickening or bowel obstruction. BONES AND SOFT TISSUES: No acute o sseous injury. Diffuse osteopenia. No suspicious lytic or blastic lesions. Deg enerative changes of the visualized spine and both hip joints. IMPRESSION : Large stool burden in the rectum. No significant change compared to in wall thickening and pericolonic fat stranding at the proximal sigmoid col on associated with severe diverticulosis. This may represent residual findings of prior acute diverticulitis versus a repeat episode of acute diverticulitis. Unchanged 1.5 cm left adrenal nodule. Recommend 1 year follow-up adrenal washout CT. If the lesion is stable at or greater than 1 year, no subsequent follow-up imaging is needed. Signed by: Gustavo To MD on 05/14/2019 5:06 PM Dictated By: GUSTAVO TO MD 05 Transcribed By: ARIEL on 05/14/191705 COPY TO: ROSS CHI NP Magnesium Mjxap3773-96-69 12:48:00* Test Item Value Reference Range Interpretation Comments Magnesium Level (test code = 60630-1) 2.1 1.3-2.1 [facility] Mtsle5011-21-99 12:48:00* Test Item Value Reference Range Interpretation Comments Magnesium Level (test code = 59317-9) 2.1 1.3-2.1 [facility] Emhzv0956-53-85 12:48:00* Test Item Value Reference Range Interpretation Comments Magnesium Level (test code = 23255-8) 2.1 1.3-2.1 [facility] Vcxgi6660-66-94 12:48:00* Test Item Value Reference Range Interpretation Comments Magnesium Level (test code = 63429-2) 2.1 1.3-2.1 [facility] Uagmz1510-36-67 12:48:00* Test Item Value Reference Range Interpretation Comments Magnesium Level (test code = 85439-6) 2.1 1.3-2.1 [facility] Ualzg5495-32-50 12:48:00* Test Item Value Reference Range Interpretation Comments Magnesium Level (test code = 76273-7) 2.1 1.3-2.1 [facility] CenterMagnesium Zueki6636-26-81 12:48:00* Test Item Value Reference Range Interpretation Comments Magnesium Level (test code = 58996-1) 2.1 1.3-2.1 [facility] CenterMagnesium Qzszr7902-60-28 12:48:00* Test Item Value Reference Range Interpretation Comments Magnesium Level (test code = 84437-0) 2.1 1.3-2.1 [facility] CenterABDOM[facility]VIEW (KUB)2019-05-13 00:53:00 [facility] [address] [place] [address] Patient Name: ANGELA JEFFERS MR #: [id number] : 1945 Age/Sex: 74/F Req #: [id number] Adm Physician: Ordered by: TREY RODRIGES MD Report #: [id number] Location: ER Room/Bed: Procedure: [id number] 0070 DX/ABDOMEN-1VIEW (KUB) Exam Date: 05/12/19 Exam Time: 2327 REPORT STATUS: Signed EXAM: Abdomen Radiograph 1 View) INDICATION: Repeat KUB following disimpact ion COMPARISON: Abdominal radiograph 05/12/2019 FINDINGS: No abn ormalities in the lower chest. No lines or tubes. Resolution of large stool burden in the rectum. Moderate volume of stool in the colon. No dilated loops of small bowel. Vascular calcifications. No abnormal soft ti ssue masses. No pneumoperitoneum. No acute osseous abnormality. A dvanced degenerative changes in the spine, hips, and pelvis. IMPRESSION: Resolution of large stool burden in the rectum. Advanced degenerative dow es in the spine hips and pelvis.. Signed by: Emilia Morton DO on 05/13/20 12:55 AM Dictated By: EMILIA MORTON DO Transcribed By: ARIEL on 05/13/1954 COPY TO: TREY RODRIGES MD ABDOMEN-1VIEW (KUB)2019-05-12 21:26:00 [place] [address] Patient Name: ANGELA JEFFERS MR #: [id number] : 1945 Age/Sex: 74/F Req #: [id number] Adm Physician: Ordered by: TREY RODRIGES MD Report #: [id number] Location: ER Room/Bed: Procedure: [id number] 0066 DX/ABDOMEN-1VIEW (KU) Exam Date: 05/12/19 Exam Time: 2024 REPORT STATUS: Signed EXAM: Abdomen Radiograph 1 View INDICATION: Rectal pain, rule out impaction COMPARISON: Abdominal CT 01/19/2019 FINDINGS: No abnormalities in the lower chest. No lines or tubes. Significant stool burden in the colon, greater than that seen on abdominal CT 01/19/2019. Moderate stool burden in the colon. No dilated loops of small bowel. No abnormal abdominal c alcifications.. No abnormal soft tissue masses. No pneumoperitoneum. No acute osseous abnormality. Advanced degenerative changes in the spin e, hips, and pelvis. [place] in the lower mid pelvis. IMPRESSI ON: Significant stool burden within the rectum, greater than that seen on , and moderate stool burden in the colon. Fecal impaction is possible. Signed by: Emilia Morton DO on 05/12/2019 9:29 PM Dictated By: RAHUL MORTON DO 28 Transcribed By: ARIEL on 05/12/192128 COPY TO: TREY RODRIGES MD CT ABDOMEN/PELVIS [id number] 06:53:00 [place] [address] Patient Name: ANGELA JEFFERS MR #: [id number] : 1945 Age/Sex: 73/F Req #: [id number] Adm Physician: Ordered by: TREY RODRIGES MD Report #: [id number] Location: ER Room/Bed: Procedure: [id number] CT/CT ABDOMEN/PELVIS WO Exam Date: 01/19/19 Chas m Time: 06 REPORT STATUS: Signed CT Abdomen and Pelvis without contrast INDICATION: Loss of appetite, pa in, diarrhea TECHNIQUE: Thin collimation axial images obtained from the kaitlynn phragm to the level of the pubic symphysis without nonionic intravenous contra st. Dose reduction techniques used: Automated exposure control, adjustment of the mAs and/or kVp according to patient size, standardized low-dose protoc ol, and/or iterative reconstruction technique. RADIATION DOSE: Tot al DLP: 817.98 mGy*cm Estimated effective dose: (DLP x 0.015 x size facto r) mSv CTDIvol has been reviewed. It is below the limits set by the Radia tion Protocol Committee (RPC). COMPARISON: None. ABDOMEN FINDINGS: Lung Bases: Bibasilar atelectasis. The heart is mildly enlarged. The descen ding thoracic aorta is tortuous. The blood pool is diminished suggestive of an emia. Liver: Normal in attenuation without mass. Gallbladder: Present and appears normal. No ductal dilatation. Pancreas: Normal attenuation wit hout mass. Spleen: Normal size without mass. Adrenal Glands: Diffuse t hickening of the right adrenal gland without mass. Thickening of the left adre nal gland with isoattenuating nodule in the apex measuring 14 mm. Kidneys : Right: No renal calculus. A cyst in the posterior cortex measures 2.8 cm. An exophytic cyst in the medial lower pole measures 2.3 cm. No hydronephrosis. Left: Diminutive. No cortical mass. No hydronephrosis. Lymph Nodes: Multiple subcentimeter periaortic lymph nodes, nonspecific. There is haziness of the small bowel mesentery without lymphadenopathy. Aorta: Diffusely ca lcified and normal in diameter. There are calcifications throughout the viscer al arteries. PELVIS FINDINGS: Bowel: Stomach: Normal. Small [place] el: Enteric contrast present throughout. No wall thickening or dilatation. L arge Bowel: Enteric contrast present throughout. Diverticulosis coli with infl ammation at the junction of the descending colon and proximal sigmoid colon. N o loculated fluid collection. Prominent stool ball in the rectum. The cecum is low-lying in the pelvis. Appendix: Not visualized. Bladder: Underdistend ed. The uterus is absent. There are no adnexal masses. Peritoneum/retr operitoneum: No free fluid or free air Soft tissues: Mild subcutaneous lars a. A fat-containing umbilical hernia measures 2 cm. There is lipoma in the pro ximal left thigh measuring 4.7 cm Bones: Mild degenerative changes of the s pine. No compression deformities. IMPRESSION: 1. Acute diverticulitis . No evidence of abscess or perforation. No bowel obstruction. Large stool bal l in the rectum. No evidence of stercoral proctitis. 2. Bilateral adrena l hyperplasia. Potential left adrenal nodule. This could be confirmed with CT dedicated to the adrenal glands. 3. Bilateral renal cysts. Signed b y: Dr. Tracy Zavala MD on 01/19/2019 6:59 AM Dictated By: TRACY ZAVALA MD Aleman scribed By: ARIEL on 01/19/1959 COPY TO: TREY RODRIGES MD Amylase Nsyzh3515-43-87 05:22:00* Test Item Value Reference Range Interpretation Comments Amylase Level (test code = 1798-8) 87 25-125 [facility]2019-07-07 05:22:00* Test Item Value Reference Range Interpretation Comments Lipase (test code = 3040-3) 91 8-78 H [facility]2019-07-07 05:22:00* Test Item Value Reference Range Interpretation Comments Amylase Level (test code = 1798-8) 87 25-125 [facility]2019-07-07 05:22:00* Test Item Value Reference Range Interpretation Comments Lipase (test code = 3040-3) 91 8-78 H [facility]2019-07-07 05:22:00* Test Item Value Reference Range Interpretation Comments Amylase Level (test code = 1798-8) 87 25-125 [facility]2019-07-07 05:22:00* Test Item Value Reference Range Interpretation Comments Lipase (test code = 3040-3) 91 8-78 H [facility]2019-07-07 05:22:00* Test Item Value Reference Range Interpretation Comments Amylase Level (test code = 1798-8) 87 25-125 [facility]2019-07-07 05:22:00* Test Item Value Reference Range Interpretation Comments Lipase (test code = 3040-3) 91 8-78 H [facility]2019-07-07 05:22:00* Test Item Value Reference Range Interpretation Comments Amylase Level (test code = 1798-8) 87 25-125 [facility]2019-07-07 05:22:00* Test Item Value Reference Range Interpretation Comments Lipase (test code = 3040-3) 91 8-78 [facility]2019-07-07 05:22:00* Test Item Value Reference Range Interpretation Comments Amylase Level (test code = 1798-8) 87 25-125 [facility]2019-07-07 05:22:00* Test Item Value Reference Range Interpretation Comments Lipase (test code = 3040-3) 91 8-78 H [facility]2019-07-07 05:22:00* Test Item Value Reference Range Interpretation Comments Amylase Level (test code = 1798-8) 87 25-125 [facility]2019-07-07 05:22:00* Test Item Value Reference Range Interpretation Comments Lipase (test code = 3040-3) 91 8-78 [facility]2019-07-07 05:22:00* Test Item Value Reference Range Interpretation Comments Amylase Level (test code = 1798-8) 87 25-125 [facility]2019-07-07 05:22:00* Test Item Value Reference Range Interpretation Comments Lipase (test code = 3040-3) 91 8-78 H [facility]2019-07-07 05:22:00* Test Item Value Reference Range Interpretation Comments Amylase Level (test code = 1798-8) 87 25-125 [facility]2019-07-07 05:22:00* Test Item Value Reference Range Interpretation Comments Lipase (test code = 3040-3) 91 8-78 [facility]2019-07-07 05:22:00* Test Item Value Reference Range Interpretation Comments Amylase Level (test code = 1798-8) 87 -125 [facility]2019-07-07 05:22:00* Test Item Value Reference Range Interpretation Comments Lipase (test code = 3040-3) 91 8-78 [facility] Pkkde7915-66-16 05:22:00* Test Item Value Reference Range Interpretation Comments Amylase Level (test code = 1798-8) 87 25-125 [facility]2019-07-07 05:22:00* Test Item Value Reference Range Interpretation Comments Lipase (test code = 3040-3) 91 8-78 [facility] Nqpdl3192-78-07 05:16:00* Test Item Value Reference Range Interpretation Comments Sodium Level (test code = 2951-2) 141 136-145 [facility] Xzkqr5028-68-06 05:16:00* Test Item Value Reference Range Interpretation Comments Potassium Level (test code = 2823-3) 4.5 3.5-5.1 slight hemolysisKnapp Medical CenterChloride Yuowx2649-38-88 05:16:00* Test Item Value Reference Range Interpretation Comments Chloride Level (test code = 2075-0) 97 98-107 L [facility] CenterCarbon Dioxide Oytyo6942-24-49 05:16:00* Test Item Value Reference Range Interpretation Comments Carbon Dioxide Level (test code = 2028-9) 29 22-29 [facility] [facility]An[facility] Irr3410-76-29 05:16:00* Test Item Value Reference Range Interpretation Comments Anion Gap (test code = 36972-7) 19.5 8-16 [facility] CenterBlood Urea Otvgvqrm2380-55-52 05:16:00* Test Item Value Reference Range Interpretation Comments Blood Urea Nitrogen (test code = 3094-0) 31 7-26 [facility] CenterCreatinine2019-07-07 05:16:00* Test Item Value Reference Range Interpretation Comments Creatinine (test code = 2160-0) 6.97 0.57-1.11 [facility] CenterBUN/Creatinine Anzte2061-26-06 05:16:00* Test Item Value Reference Range Interpretation Comments BUN/Creatinine Ratio (test code = 3097-3) 4 6-25 L [facility] CenterEstimat Glomerular Filtration Rate 2019-01-19 05:16:00* Test Item Value Reference Range Interpretation Comments Estimat Glomerular Filtration Rate (test code = 121932314) 7 >60 L Ranges were taken from the National Kidney Disease Education Program and the [facility] literature.Reference ranges:60 or greater: Rarlto40-22 ( for 3 consecutive months): Chronic kidney disease 15 or less: Kidney failureKnapp Medical CenterGlucose Rstgf2355-00-44 05:16:00* Test Item Value Reference Range Interpretation Comments Glucose Level (test code = AWQ7574) 188 74-118 [facility] CenterCalcium Zmcte1689-37-16 05:16:00* Test Item Value Reference Range Interpretation Comments Calcium Level (test code = 34647-9) 8.6 8.4-10.2 [facility] CenterTotal Kothagdch2695-60-57 05:16:00* Test Item Value Reference Range Interpretation Comments Total Bilirubin (test code = 1975-2) 0.5 0.2-1.2 [facility] CenterAspartate Amino Transf (AST/SGOT) 2019-01-19 05:16:00* Test Item Value Reference Range Interpretation Comments Aspartate Amino Transf (AST/SGOT) (test code = Aspartate Amino Transf (AST/SGOT)) 13 5-34 [facility] CenterAlanine Aminotransferase (ALT/SGPT) 2019-01-19 05:16:00* Test Item Value Reference Range Interpretation Comments Alanine Aminotransferase (ALT/SGPT) (test code = 1742-6) 10 0-55 [facility] CenterTotal Rcasfvd4488-97-11 05:16:00* Test Item Value Reference Range Interpretation Comments Total Protein (test code = 2885-2) 7.4 6.5-8.1 [facility] CenterAlbumin2019-07-07 05:16:00* Test Item Value Reference Range Interpretation Comments Albumin (test code = 1751-7) 3.0 3.5-5.0 L [facility] CenterGlobulin2019-07-07 05:16:00* Test Item Value Reference Range Interpretation Comments Globulin (test code = 25760-7) 4.4 2.3-3.5 H [facility] CenterAlbumin/Globulin Noecn8265-85-17 05:16:00 * Test Item Value Reference Range Interpretation Comments Albumin/Globulin Ratio (test code = 1759-0) 0.7 0.8-2.0 L [facility] CenterAlkaline Oxydclbelig0995-47-76 05:16:00* Test Item Value Reference Range Interpretation Comments Alkaline Phosphatase (test code = 6768-6) 87 40-150 [facility] Lake[facility] Exgul3854-40-11 05:16:00* Test Item Value Reference Range Interpretation Comments Sodium Level (test code = 2951-2) 141 136-145 [facility] CenterPotassium Pekic3904-66-74 05:16:00* Test Item Value Reference Range Interpretation Comments Potassium Level (test code = 2823-3) 4.5 3.5-5.1 slight hemolysisKnapp Medical CenterChloride Hqjsc8895-21-50 05:16:00* Test Item Value Reference Range Interpretation Comments Chloride Level (test code = 2075-0) 97 98-107 L [facility] CenterCarbon Dioxide Yhnmr6912-44-41 05:16:00* Test Item Value Reference Range Interpretation Comments Carbon Dioxide Level (test code = 2028-9) 29 22-29 [facility] CenterAnion Slc7992-57-72 05:16:00* Test Item Value Reference Range Interpretation Comments Anion Gap (test code = 61342-2) 19.5 8-16 H [facility] CenterBlood Urea Drxmpzaf4481-84-75 05:16:00* Test Item Value Reference Range Interpretation Comments Blood Urea Nitrogen (test code = 3094-0) 31 7-26 [facility] CenterCreatinine2019-07-07 05:16:00* Test Item Value Reference Range Interpretation Comments Creatinine (test code = 2160-0) 6.97 0.57-1.11 [facility] CenterBUN/Creatinine Omwbq7813-19-38 05:16:00* Test Item Value Reference Range Interpretation Comments BUN/Creatinine Ratio (test code = 3097-3) 4 6-25 L [facility] CenterEstimat Glomerular Filtration Rate 2019-01-19 05:16:00* Test Item Value Reference Range Interpretation Comments Estimat Glomerular Filtration Rate (test code = 285010447) 7 >60 L Ranges were taken from the National Kidney Disease Education Program and the [facility] literature.Reference ranges:60 or greater: Hewwdl90-75 ( for 3 consecutive months): Chronic kidney disease 15 or less: Kidney failureKnapp Medical CenterGlucose Wtnsf7916-88-30 05:16:00* Test Item Value Reference Range Interpretation Comments Glucose Level (test code = DUB0497) 188 74-118 H [facility] CenterCalcium Adrow6736-05-97 05:16:00* Test Item Value Reference Range Interpretation Comments Calcium Level (test code = 60713-9) 8.6 8.4-10.2 [facility] CenterTotal Faiictkde8198-74-06 05:16:00* Test Item Value Reference Range Interpretation Comments Total Bilirubin (test code = 1975-2) 0.5 0.2-1.2 [facility] CenterAspartate Amino Transf (AST/SGOT) 2019-01-19 05:16:00* Test Item Value Reference Range Interpretation Comments Aspartate Amino Transf (AST/SGOT) (test code = Aspartate Amino Transf (AST/SGOT)) 13 5-34 [facility] CenterAlanine Aminotransferase (ALT/SGPT) 2019-01-19 05:16:00* Test Item Value Reference Range Interpretation Comments Alanine Aminotransferase (ALT/SGPT) (test code = 1742-6) 10 0-55 [facility] CenterTotal Ubcvkyr9613-66-43 05:16:00* Test Item Value Reference Range Interpretation Comments Total Protein (test code = 2885-2) 7.4 6.5-8.1 [facility] CenterAlbumin2019-07-07 05:16:00* Test Item Value Reference Range Interpretation Comments Albumin (test code = 1751-7) 3.0 3.5-5.0 L [facility] CenterGlobulin2019-07-07 05:16:00* Test Item Value Reference Range Interpretation Comments Globulin (test code = 51694-5) 4.4 2.3-3.5 H [facility] CenterAlbumin/Globulin Ezhto0457-98-92 05:16:00 * Test Item Value Reference Range Interpretation Comments Albumin/Globulin Ratio (test code = 1759-0) 0.7 0.8-2.0 L [facility] CenterAlkaline Nekcltiragq6934-86-47 05:16:00* Test Item Value Reference Range Interpretation Comments Alkaline Phosphatase (test code = 6768-6) 87 40-150 [facility] Lakeodium Avohd9436-78-62 05:16:00* Test Item Value Reference Range Interpretation Comments Sodium Level (test code = 2951-2) 141 136-145 [facility] CenterPotassium Amzey2127-75-13 05:16:00* Test Item Value Reference Range Interpretation Comments Potassium Level (test code = 2823-3) 4.5 3.5-5.1 slight hemolysisKnapp Medical CenterChloride Rlzzi6781-47-18 05:16:00* Test Item Value Reference Range Interpretation Comments Chloride Level (test code = 2075-0) 97 98-107 L [facility] CenterCarbon Dioxide Effkf6454-69-56 05:16:00* Test Item Value Reference Range Interpretation Comments Carbon Dioxide Level (test code = 2028-9) 29 22-29 [facility] CenterAnion Gxn0526-88-27 05:16:00* Test Item Value Reference Range Interpretation Comments Anion Gap (test code = 54485-0) 19.5 8-16 H [facility] CenterBlood Urea Egwbulnj5466-65-63 05:16:00* Test Item Value Reference Range Interpretation Comments Blood Urea Nitrogen (test code = 3094-0) 31 7-26 H [facility] CenterCreatinine2019-07-07 05:16:00* Test Item Value Reference Range Interpretation Comments Creatinine (test code = 2160-0) 6.97 0.57-1.11 [facility] CenterBUN/Creatinine Uwjqp8708-55-94 05:16:00* Test Item Value Reference Range Interpretation Comments BUN/Creatinine Ratio (test code = 3097-3) 4 6-25 L [facility] CenterEstimat Glomerular Filtration Rate 2019-01-19 05:16:00* Test Item Value Reference Range Interpretation Comments Estimat Glomerular Filtration Rate (test code = 630019541) 7 >60 L Ranges were taken from the National Kidney Disease Education Program and the [facility] literature.Reference ranges:60 or greater: Dyrlal81-36 ( for 3 consecutive months): Chronic kidney disease 15 or less: Kidney failureKnapp Medical CenterGlucose Jefxn3918-39-96 05:16:00* Test Item Value Reference Range Interpretation Comments Glucose Level (test code = TZN4011) 188 74-118 H [facility] CenterCalcium Ufvsv1108-60-38 05:16:00* Test Item Value Reference Range Interpretation Comments Calcium Level (test code = 41989-7) 8.6 8.4-10.2 [facility] CenterTotal Lvnaykkvo1560-66-53 05:16:00* Test Item Value Reference Range Interpretation Comments Total Bilirubin (test code = 1975-2) 0.5 0.2-1.2 [facility] CenterAspartate Amino Transf (AST/SGOT) 2019-01-19 05:16:00* Test Item Value Reference Range Interpretation Comments Aspartate Amino Transf (AST/SGOT) (test code = Aspartate Amino Transf (AST/SGOT)) 13 5-34 [facility] CenterAlanine Aminotransferase (ALT/SGPT) 2019-01-19 05:16:00* Test Item Value Reference Range Interpretation Comments Alanine Aminotransferase (ALT/SGPT) (test code = 1742-6) 10 0-55 [facility] Districttal Ttzzwks2107-26-79 05:16:00* Test Item Value Reference Range Interpretation Comments Total Protein (test code = 2885-2) 7.4 6.5-8.1 [facility] CenterAlbumin2019-07-07 05:16:00* Test Item Value Reference Range Interpretation Comments Albumin (test code = 1751-7) 3.0 3.5-5.0 L [facility] CenterGlobulin2019-07-07 05:16:00* Test Item Value Reference Range Interpretation Comments Globulin (test code = 35586-8) 4.4 2.3-3.5 H [facility] CenterAlbumin/Globulin Mdhsg8281-02-23 05:16:00 * Test Item Value Reference Range Interpretation Comments Albumin/Globulin Ratio (test code = 1759-0) 0.7 0.8-2.0 L [facility] CenterAlkaline Erjsebpyhef6910-16-42 05:16:00* Test Item Value Reference Range Interpretation Comments Alkaline Phosphatase (test code = 6768-6) 87 40-150 [facility] CenterWhite Blood Ebtgt2004-63-95 04:55:00* Test Item Value Reference Range Interpretation Comments White Blood Count (test code = 6690-2) 7.77 4.8-10.8 [facility] CenterRed Blood Sijst1218-46-90 04:55:00* Test Item Value Reference Range Interpretation Comments Red Blood Count (test code = 789-8) 4.08 3.6-5.1 [facility] CenterHemoglobin2019-07-07 04:55:00* Test Item Value Reference Range Interpretation Comments Hemoglobin (test code = 79932-0) 11.7 12.0-16.0 L [facility] CenterHematocrit2019-07-07 04:55:00* Test Item Value Reference Range Interpretation Comments Hematocrit (test code = 4544-3) 37.4 34.2-44.1 [facility] CenterMean Corpuscular Gnnsnq3876-71-95 04:55:00* Test Item Value Reference Range Interpretation Comments Mean Corpuscular Volume (test code = 787-2) 91.7 81-99 [facility] CenterMean Corpuscular Hjpzooavfg1775-10-75 04:55:00* Test Item Value Reference Range Interpretation Comments Mean Corpuscular Hemoglobin (test code = 785-6) 28.7 28-32 [facility] CenterMean Corpuscular Hemoglobin Concent 2019-01-19 04:55:00* Test Item Value Reference Range Interpretation Comments Mean Corpuscular Hemoglobin Concent (test code = 786-4) 31.3 31-35 [facility] CenterRed Cell Distribution Xwjxm1402-81-85 04:55:00* Test Item Value Reference Range Interpretation Comments Red Cell Distribution Width (test code = 28148-9) 17.3 11.7 -14.4 H [facility] CenterPlatelet Mgtih6210-32-05 04:55:00* Test Item Value Reference Range Interpretation Comments Platelet Count (test code = 777-3) 286 140-360 [facility] CenterNeutrophils (%) (Auto)2019-01-19 04:55:00 * Test Item Value Reference Range Interpretation Comments Neutrophils (%) (Auto) (test code = 70110-0) 70.6 38.7-80.0 [facility] CenterLymphocytes (%) (Auto)2019-01-19 04:55:00 * Test Item Value Reference Range Interpretation Comments Lymphocytes (%) (Auto) (test code = 736-9) 18.5 18.0-39.1 [facility] CenterMonocytes (%) (Auto)2019-01-19 04:55:00* Test Item Value Reference Range Interpretation Comments Monocytes (%) (Auto) (test code = 5905-5) 8.9 4.4-11.3 [facility] CenterEosinophils (%) (Auto)2019-01-19 04:55:00 * Test Item Value Reference Range Interpretation Comments Eosinophils (%) (Auto) (test code = 713-8) 1.5 0.0-6.0 [facility] CenterBasophils (%) (Auto)2019-01-19 04:55:00* Test Item Value Reference Range Interpretation Comments Basophils (%) (Auto) (test code = 706-2) 0.1 0.0-1.0 [facility] CenterIM GRANULOCYTES %2019-01-19 04:55:00* Test Item Value Reference Range Interpretation Comments IM GRANULOCYTES % (test code = IM GRANULOCYTES %) 0.4 0.0- 1.0 [facility] CenterNeutrophils # (Auto)2019-01-19 04:55:00* Test Item Value Reference Range Interpretation Comments Neutrophils # (Auto) (test code = 751-8) 5.5 2.1-6.9 [facility] CenterLymphocytes # (Auto)2019-01-19 04:55:00* Test Item Value Reference Range Interpretation Comments Lymphocytes # (Auto) (test code = 73484-9) 1.4 1.0-3.2 [facility] CenterMonocytes # (Auto)2019-01-19 04:55:00* Test Item Value Reference Range Interpretation Comments Monocytes # (Auto) (test code = 742-7) 0.7 0.2-0.8 [facility] CenterEosinophils # (Auto)2019-01-19 04:55:00* Test Item Value Reference Range Interpretation Comments Eosinophils # (Auto) (test code = 711-2) 0.1 0.0-0.4 [facility] CenterBasophils # (Auto)2019-01-19 04:55:00* Test Item Value Reference Range Interpretation Comments Basophils # (Auto) (test code = 704-7) 0.0 0.0-0.1 [facility] CenterAbsolute Immature Granulocyte (auto 2019-01-19 04:55:00* Test Item Value Reference Range Interpretation Comments Absolute Immature Granulocyte (auto (toby t code = Absolute Immature Granulocyte (auto) 0.03 0-0.1 [facility] CenterWhite Blood Wdfog6394-23-74 04:55:00* Test Item Value Reference Range Interpretation Comments White Blood Count (test code = 6690-2) 7.77 4.8-10.8 [facility] CenterRed Blood Nsvex1969-79-17 04:55:00* Test Item Value Reference Range Interpretation Comments Red Blood Count (test code = 789-8) 4.08 3.6-5.1 [facility] CenterHemoglobin2019-07-07 04:55:00* Test Item Value Reference Range Interpretation Comments Hemoglobin (test code = 78541-4) 11.7 12.0-16.0 L [facility] CenterHematocrit2019-07-07 04:55:00* Test Item Value Reference Range Interpretation Comments Hematocrit (test code = 4544-3) 37.4 34.2-44.1 [facility] CenterMean Corpuscular Kkfulr5818-54-91 04:55:00* Test Item Value Reference Range Interpretation Comments Mean Corpuscular Volume (test code = 787-2) 91.7 81-99 [facility] CenterMean Corpuscular Iqfkjuynle6883-47-03 04:55:00* Test Item Value Reference Range Interpretation Comments Mean Corpuscular Hemoglobin (test code = 785-6) 28.7 28-32 [facility] CenterMean Corpuscular Hemoglobin Concent 2019-01-19 04:55:00* Test Item Value Reference Range Interpretation Comments Mean Corpuscular Hemoglobin Concent (test code = 786-4) 31.3 31-35 [facility] CenterRed Cell Distribution Fjxov7527-21-37 04:55:00* Test Item Value Reference Range Interpretation Comments Red Cell Distribution Width (test code = 06039-6) 17.3 11.7 -14.4 H [facility] CenterPlatelet Bmznc9582-88-55 04:55:00* Test Item Value Reference Range Interpretation Comments Platelet Count (test code = 777-3) 286 140-360 [facility] CenterNeutrophils (%) (Auto)2019-01-19 04:55:00 * Test Item Value Reference Range Interpretation Comments Neutrophils (%) (Auto) (test code = 11319-8) 70.6 38.7-80.0 [facility] CenterLymphocytes (%) (Auto)2019-01-19 04:55:00 * Test Item Value Reference Range Interpretation Comments Lymphocytes (%) (Auto) (test code = 736-9) 18.5 18.0-39.1 [facility] CenterMonocytes (%) (Auto)2019-01-19 04:55:00* Test Item Value Reference Range Interpretation Comments Monocytes (%) (Auto) (test code = 5905-5) 8.9 4.4-11.3 [facility] CenterEosinophils (%) (Auto)2019-01-19 04:55:00 * Test Item Value Reference Range Interpretation Comments Eosinophils (%) (Auto) (test code = 713-8) 1.5 0.0-6.0 [facility] CenterBasophils (%) (Auto)2019-01-19 04:55:00* Test Item Value Reference Range Interpretation Comments Basophils (%) (Auto) (test code = 706-2) 0.1 0.0-1.0 [facility] CenterIM GRANULOCYTES %2019-01-19 04:55:00* Test Item Value Reference Range Interpretation Comments IM GRANULOCYTES % (test code = IM GRANULOCYTES %) 0.4 0.0- 1.0 [facility] CenterNeutrophils # (Auto)2019-01-19 04:55:00* Test Item Value Reference Range Interpretation Comments Neutrophils # (Auto) (test code = 751-8) 5.5 2.1-6.9 [facility] CenterLymphocytes # (Auto)2019-01-19 04:55:00* Test Item Value Reference Range Interpretation Comments Lymphocytes # (Auto) (test code = 29986-6) 1.4 1.0-3.2 [facility] CenterMonocytes # (Auto)2019-01-19 04:55:00* Test Item Value Reference Range Interpretation Comments Monocytes # (Auto) (test code = 742-7) 0.7 0.2-0.8 [facility] CenterEosinophils # (Auto)2019-01-19 04:55:00* Test Item Value Reference Range Interpretation Comments Eosinophils # (Auto) (test code = 711-2) 0.1 0.0-0.4 [facility] CenterBasophils # (Auto)2019-01-19 04:55:00* Test Item Value Reference Range Interpretation Comments Basophils # (Auto) (test code = 704-7) 0.0 0.0-0.1 [facility] CenterAbsolute Immature Granulocyte (auto 2019-01-19 04:55:00* Test Item Value Reference Range Interpretation Comments Absolute Immature Granulocyte (auto (toby t code = Absolute Immature Granulocyte (auto) 0.03 0-0.1 [facility] CenterWhite Blood Jfvke8610-04-60 04:55:00* Test Item Value Reference Range Interpretation Comments White Blood Count (test code = 6690-2) 7.77 4.8-10.8 [facility] CenterRed Blood Zzmws1935-94-85 04:55:00* Test Item Value Reference Range Interpretation Comments Red Blood Count (test code = 789-8) 4.08 3.6-5.1 [facility] CenterHemoglobin2019-07-07 04:55:00* Test Item Value Reference Range Interpretation Comments Hemoglobin (test code = 44070-2) 11.7 12.0-16.0 L [facility] CenterHematocrit2019-07-07 04:55:00* Test Item Value Reference Range Interpretation Comments Hematocrit (test code = 4544-3) 37.4 34.2-44.1 [facility] CenterMean Corpuscular Pbmxoj2134-85-86 04:55:00* Test Item Value Reference Range Interpretation Comments Mean Corpuscular Volume (test code = 787-2) 91.7 81-99 [facility] CenterMean Corpuscular Tagoomnhoh0489-80-22 04:55:00* Test Item Value Reference Range Interpretation Comments Mean Corpuscular Hemoglobin (test code = 785-6) 28.7 28-32 [facility] CenterMean Corpuscular Hemoglobin Concent 2019-01-19 04:55:00* Test Item Value Reference Range Interpretation Comments Mean Corpuscular Hemoglobin Concent (test code = 786-4) 31.3 31-35 [facility] CenterRed Cell Distribution Fusnw5079-88-42 04:55:00* Test Item Value Reference Range Interpretation Comments Red Cell Distribution Width (test code = 75172-1) 17.3 11.7 -14.4 H [facility] CenterPlatelet Xwadp5942-66-43 04:55:00* Test Item Value Reference Range Interpretation Comments Platelet Count (test code = 777-3) 286 140-360 [facility] CenterNeutrophils (%) (Auto)2019-01-19 04:55:00 * Test Item Value Reference Range Interpretation Comments Neutrophils (%) (Auto) (test code = 66097-1) 70.6 38.7-80.0 [facility] CenterLymphocytes (%) (Auto)2019-01-19 04:55:00 * Test Item Value Reference Range Interpretation Comments Lymphocytes (%) (Auto) (test code = 736-9) 18.5 18.0-39.1 [facility] CenterMonocytes (%) (Auto)2019-01-19 04:55:00* Test Item Value Reference Range Interpretation Comments Monocytes (%) (Auto) (test code = 5905-5) 8.9 4.4-11.3 [facility] CenterEosinophils (%) (Auto)2019-01-19 04:55:00 * Test Item Value Reference Range Interpretation Comments Eosinophils (%) (Auto) (test code = 713-8) 1.5 0.0-6.0 [facility] CenterBasophils (%) (Auto)2019-01-19 04:55:00* Test Item Value Reference Range Interpretation Comments Basophils (%) (Auto) (test code = 706-2) 0.1 0.0-1.0 [facility] CenterIM GRANULOCYTES %2019-01-19 04:55:00* Test Item Value Reference Range Interpretation Comments IM GRANULOCYTES % (test code = IM GRANULOCYTES %) 0.4 0.0- 1.0 [facility] CenterNeutrophils # (Auto)2019-01-19 04:55:00* Test Item Value Reference Range Interpretation Comments Neutrophils # (Auto) (test code = 751-8) 5.5 2.1-6.9 [facility] CenterLymphocytes # (Auto)2019-01-19 04:55:00* Test Item Value Reference Range Interpretation Comments Lymphocytes # (Auto) (test code = 45011-1) 1.4 1.0-3.2 [facility] CenterMonocytes # (Auto)2019-01-19 04:55:00* Test Item Value Reference Range Interpretation Comments Monocytes # (Auto) (test code = 742-7) 0.7 0.2-0.8 [facility] CenterEosinophils # (Auto)2019-01-19 04:55:00* Test Item Value Reference Range Interpretation Comments Eosinophils # (Auto) (test code = 711-2) 0.1 0.0-0.4 [facility] CenterBasophils # (Auto)2019-01-19 04:55:00* Test Item Value Reference Range Interpretation Comments Basophils # (Auto) (test code = 704-7) 0.0 0.0-0.1 [facility] CenterAbsolute Immature Granulocyte (auto 2019-01-19 04:55:00* Test Item Value Reference Range Interpretation Comments Absolute Immature Granulocyte (auto (toby t code = Absolute Immature Granulocyte (auto) 0.03 0-0.1 [facility] Mbtjuow9172-08-47 12:00:00* Test Item Value Reference Range Interpretation Comments Bedside Glucose (test code = 67882-7) 165 70-120 H Meter ID: [id number]ucose 2018-12-30 12:00:00* Test Item Value Reference Range Interpretation Comments Bedside Glucose (test code = 91985-7) 165 70-120 H Meter ID: [id number] [facility] Glucose 2018-12-30 12:00:00* Test Item Value Reference Range Interpretation Comments Bedside Glucose (test code = 30736-1) 165 70-120 H Meter ID: [id number] [facility] Glucose 2018-12-30 12:00:00* Test Item Value Reference Range Interpretation Comments Bedside Glucose (test code = 69502-8) 165 70-120 H Meter ID: [id number] [facility] 2018-12-28 19:21:00* Test Item Value Reference Range Interpretation Comments Blood Culture (test code = 50646636) NO GROWTH AFTER 5 DAYS, FINAL REPORT [facility] Hgnccgy3525-61-67 19:21:00* Test Item Value Reference Range Interpretation Comments Blood Culture (test code = 95780796) NO GROWTH AFTER 5 DAYS, FINAL REPORT [facility] Hhhlyfo8240-39-64 19:21:00* Test Item Value Reference Range Interpretation Comments Blood Culture (test code = 49678796) NO GROWTH AFTER 5 DAYS, FINAL REPORT [facility] Kpihkzy7885-73-57 19:21:00* Test Item Value Reference Range Interpretation Comments Blood Culture (test code = 28060637) NO GROWTH AFTER 5 DAYS, FINAL REPORT [facility] Ygfbcce8984-34-13 19:21:00* Test Item Value Reference Range Interpretation Comments Blood Culture (test code = 60674116) NO GROWTH AFTER 5 DAYS, FINAL REPORT [facility] Abdhwky2047-56-43 19:21:00* Test Item Value Reference Range Interpretation Comments Blood Culture (test code = 63712730) NO GROWTH AFTER 5 DAYS, FINAL REPORT [facility] Hkcfcnu2225-76-07 19:21:00* Test Item Value Reference Range Interpretation Comments Blood Culture (test code = 98055187) NO GROWTH AFTER 5 DAYS, FINAL REPORT [facility] Hgzeqxv5272-85-90 19:21:00* Test Item Value Reference Range Interpretation Comments Blood Culture (test code = 81951596) NO GROWTH AFTER 5 DAYS, FINAL REPORT [facility] Judhvfx4385-71-23 19:21:00* Test Item Value Reference Range Interpretation Comments Blood Culture (test code = 69721493) NO GROWTH AFTER 5 DAYS, FINAL REPORT [facility] Qzjfjya8837-31-99 19:21:00* Test Item Value Reference Range Interpretation Comments Blood Culture (test code = 27049258) NO GROWTH AFTER 5 DAYS, FINAL REPORT [facility] Okgovyu6481-38-63 19:21:00* Test Item Value Reference Range Interpretation Comments Blood Culture (test code = 71210959) NO GROWTH AFTER 5 DAYS, FINAL REPORT [facility] Swylptq9341-51-82 19:21:00* Test Item Value Reference Range Interpretation Comments Blood Culture (test code = 04993046) NO GROWTH AFTER 5 DAYS, [facility]PORT [facility] CenterC-Reactive Uuubyvb9751-14-45 22:10:00* Test Item Value Reference Range Interpretation Comments C-Reactive Protein (test code = 1988-5) 42.8 0.0-4.9 H Effective December 30, 2018 the reference interval for C-Reactive Protein, Quant, will be changing to: Age Male Female 0 - 30 days Not Estab. Not Estab. 1 month - 17 years 0 - 7 0 - 9 >17 years 0 - 10 0 - 10Performed at: [address] [id number] Director: Ronald Arcos MD, Phone: [phone] Medical CenterC-Reactive Xlkfwfi6672-22-16 22:10:00* Test Item Value Reference Range Interpretation Comments C-Reactive Protein (test code = 1987-11) 42.8 0.0-4.9 H Effective December 30, 2018 the reference interval for C-Reactive Protein, Quant, will be changing to: Age Male Female 0 - 30 days Not Estab. Not Estab. 1 month - 17 years 0 - 7 0 - 9 >17 years 0 - 10 0 - 10Performed at: [address] [id number] Director: Ronald Arcos MD, Phone: [phone] Medical CenterC-Reactive Nzjlvxp3615-03-14 22:10:00* Test Item Value Reference Range Interpretation Comments C-Reactive Protein (test code = 1987-11) 42.8 0.0-4.9 H Effective December 30, 2018 the reference interval for C-Reactive Protein, Quant, will be changing to: Age Male Female 0 - 30 days Not Estab. Not Estab. 1 month - 17 years 0 - 7 0 - 9 >17 years 0 - 10 0 - 10Performed at: [address] [id number] Director: Ronald Arcos MD, Phone: [phone] Medical CenterC-Reactive Zrcowvs1983-56-05 22:10:00* Test Item Value Reference Range Interpretation Comments C-Reactive Protein (test code = 1987-11) 42.8 0.0-4.9 H Effective December 30, 2018 the reference interval for C-Reactive Protein, Quant, will be changing to: Age Male Female 0 - 30 days Not Estab. Not Estab. 1 month - 17 years 0 - 7 0 - 9 >17 years 0 - 10 0 - 10Performed at: [address] [id number] Director: Ronald Arcos MD, Phone: [phone] Medical CenterC-Reactive Dmnrfng6145-70-78 22:10:00* Test Item Value Reference Range Interpretation Comments C-Reactive Protein (test code = 1987-11) 42.8 0.0-4.9 H Effective December 30, 2018 the reference interval for C-Reactive Protein, Quant, will be changing to: Age Male Female 0 - 30 days Not Estab. Not Estab. 1 month - 17 years 0 - 7 0 - 9 >17 years 0 - 10 0 - 10Performed at: [address] [id number] Director: Ronald Arcos MD, Phone: [phone] Medical CenterC-Reactive Awxfald4441-16-41 22:10:00* Test Item Value Reference Range Interpretation Comments C-Reactive Protein (test code = 1987-11) 42.8 0.0-4.9 H Effective December 30, 2018 the reference interval for C-Reactive Protein, Quant, will be changing to: Age Male Female 0 - 30 days Not Estab. Not Estab. 1 month - 17 years 0 - 7 0 - 9 >17 years 0 - 10 0 - 10Performed at: [address] [id number] Director: Ronald Arcos MD, Phone: [phone] Medical CenterC-Reactive Shbfxnm1176-85-72 22:10:00* Test Item Value Reference Range Interpretation Comments C-Reactive Protein (test code = 1987-11) 42.8 0.0-4.9 H Effective December 30, 2018 the reference interval for C-Reactive Protein, Quant, will be changing to: Age Male Female 0 - 30 days Not Estab. Not Estab. 1 month - 17 years 0 - 7 0 - 9 >17 years 0 - 10 0 - 10Performed at: [address] [id number] Director: Ronald Arcos MD, Phone: [phone] Christi [facility]-Reactive Scptojt6021-05-42 22:10:00* Test Item Value Reference Range Interpretation Comments C-Reactive Protein (test code = 1987-11) 42.8 0.0-4.9 H Effective December 30, 2018 the reference interval for C-Reactive Protein, Quant, will be changing to: Age Male Female 0 - 30 days Not Estab. Not Estab. 1 month - 17 years 0 - 7 0 - 9 >17 years 0 - 10 0 - 10Performed at: [employer] [id number] Director: Ronald Arcos MD, Phone: [phone] Medical CenterC-Reactive Ivbnoqa6023-52-91 22:10:00* Test Item Value Reference Range Interpretation Comments C-Reactive Protein (test code = 1987-11) 42.8 0.0-4.9 H Effective December 30, 2018 the reference interval for C-Reactive Protein, Quant, will be changing to: Age Male Female 0 - 30 days Not Estab. Not Estab. 1 month - 17 years 0 - 7 0 - 9 >17 years 0 - 10 0 - 10Performed at: [facility] [facility] [id number] Director: Ronald Arcos MD, Phone: [phone] Medical CenterC-Reactive Kpvlfij0536-53-87 22:10:00* Test Item Value Reference Range Interpretation Comments C-Reactive Protein (test code = 1987-11) 42.8 0.0-4.9 H Effective December 30, 2018 the reference interval for C-Reactive Protein, Quant, will be changing to: Age Male Female 0 - 30 days Not Estab. Not Estab. 1 month - 17 years 0 - 7 0 - 9 >17 years 0 - 10 0 - 10Performed at: [facility] [employer] [id number] Director: Ronald Arcos MD, Phone: [phone] Medical CenterWound Drpdwzs0854-57-76 09:16:00* Test Item Value Reference Range Interpretation Comments Wound Culture (test code = 6462-6) Organism: PSEUDOMONAS AERUGINOSA [facility]2019-06-13 09:16:00* Test Item Value Reference Range Interpretation Comments Wound Culture (test code = 6462-6) Organism: PSEUDOMONAS AERUGINOSA [facility]2019-06-13 09:16:00* Test Item Value Reference Range Interpretation Comments Wound Culture (test code = 6462-6) Organism: PSEUDOMONAS AERUGINOSA [facility]2019-06-13 09:16:00* Test Item Value Reference Range Interpretation Comments Wound Culture (test code = 6462-6) No Result Data Provided [facility]2019-06-13 09:16:00* Test Item Value Reference Range Interpretation Comments Wound Culture (test code = 6462-6) No Result Data Provided [facility]2019-06-13 09:16:00* Test Item Value Reference Range Interpretation Comments Wound Culture (test code = 6462-6) No Result Data Provided [facility]2019-06-13 09:16:00* Test Item Value Reference Range Interpretation Comments Wound Culture (test code = 6462-6) No Result Data Provided [facility]2019-06-13 09:16:00* Test Item Value Reference Range Interpretation Comments Wound Culture (test code = 6462-6) No Result Data Provided [facility]2019-06-13 09:16:00* Test Item Value Reference Range Interpretation Comments Wound Culture (test code = 6462-6) No Result Data Provided [facility]2019-06-13 09:16:00* Test Item Value Reference Range Interpretation Comments Wound Culture (test code = 6462-6) No Result Data Provided [facility]2019-06-13 09:16:00* Test Item Value Reference Range Interpretation Comments Wound Culture (test code = 6462-6) No Result Data Provided [facility]2019-06-13 09:16:00* Test Item Value Reference Range Interpretation Comments Wound Culture (test code = 6462-6) No Result Data Provided [facility] B Surface Antibody, Quant 2018-12-25 07:49:00* Test Item Value Reference Range Interpretation Comments Hepatitis B Surface Antibody, Quant (test code = 5194-6) 215.2 Immunity>9.9 Status of Immunity Anti-HBs Level Inconsistent with Immunity 0.0 - 9.9Consistent with Immunity >9.9[facility] B Surface Rifvctc1230-77-39 07:49:00* Test Item Value Reference Range Interpretation Comments Hepatitis B Surface Antigen (test code = 5196-1) Negative Negat jinny [facility] B Core IgM Obpgyuqm9225-96-78 07:49:00* Test Item Value Reference Range Interpretation Comments Hepatitis B Core IgM Antibody (test code = 39078-0) Negative Ne gative Performed at: [employer] [address] [id number] Director: Ronald Arcos MD, Phone: [phone]. Joseph Medical Center B Surface Antibody, Fsgzy4745-35-22 07:49:00* Test Item Value Reference Range Interpretation Comments Hepatitis B Surface Antibody, Quant (test code = 5194-6) 215.2 Immunity>9.9 Status of Immunity Anti-HBs Level Inconsistent with Immunity 0.0 - 9.9Consistent with Immunity >9.9[facility] B Surface Opxfcjx3311-94-02 07:49:00* Test Item Value Reference Range Interpretation Comments Hepatitis B Surface Antigen (test code = 5196-1) Negative Negat jinny [facility] B Core IgM Xvnbeeym6472-99-31 07:49:00* Test Item Value Reference Range Interpretation Comments Hepatitis B Core IgM Antibody (test code = 59466-9) Negative Ne gative Performed at: [facility] [id number] Director: Ronald Acros MD, Phone: [phone] Medical CenterHeour lady of bellefonte hospitaltis B Surface Antibody, Ffths8216-78-05 07:49:00* Test Item Value Reference Range Interpretation Comments Hepatitis B Surface Antibody, Quant (test code = 5194-6) 215.2 Immunity>9.9 Status of Immunity Anti-HBs Level Inconsistent with Immunity 0.0 - 9.9Consistent with Immunity >9.9[facility] B Surface Ewmosin9555-36-45 07:49:00* Test Item Value Reference Range Interpretation Comments Hepatitis B Surface Antigen (test code = 5196-1) Negative Negat jinny [facility] B Core IgM Zlyitlga3548-94-18 07:49:00* Test Item Value Reference Range Interpretation Comments Hepatitis B Core IgM Antibody (test code = 63998-6) Negative Ne gative Performed at: [place] [address] [id number] Director: Ronald Arcos MD, Phone: [phone]. [facility] Medical [facility] B Surface Antibody, Fbdms4724-82-86 07:49:00* Test Item Value Reference Range Interpretation Comments Hepatitis B Surface Antibody, Quant (test code = 5194-6) 215.2 Immunity>9.9 Status of Immunity Anti-HBs Level Inconsistent with Immunity 0.0 - 9.9Consistent with Immunity >9.9[facility] B Surface Mlosgdo8089-77-56 07:49:00* Test Item Value Reference Range Interpretation Comments Hepatitis B Surface Antigen (test code = 5196-1) Negative Negat jinny [facility] B Core IgM Xvbisyqq3074-02-06 07:49:00* Test Item Value Reference Range Interpretation Comments Hepatitis B Core IgM Antibody (test code = 97516-3) Negative Ne gative Performed at: [facility] [address] [place], [place] [id number] Director: Ronald Arcos MD, Phone: [phone] Medical CenterHepaticamden general hospital B Surface Antibody, Yqitv8687-45-25 07:49:00* Test Item Value Reference Range Interpretation Comments Hepatitis B Surface Antibody, Quant (test code = 5194-6) 215.2 Immunity>9.9 Status of Immunity Anti-HBs Level Inconsistent with Immunity 0.0 - 9.9Consistent with Immunity >9.9[facility] Surface Antibody, Csfxd5525-08-08 07:49:00* Test Item Value Reference Range Interpretation Comments Hepatitis B Surface Antibody, Quant (test code = 5194-6) 215.2 Immunity>9.9 Status of Immunity Anti-HBs Level Inconsistent with Immunity 0.0 - 9.9Consistent with Immunity >9.9[facility] B Surface Antibody, Pzqwo4705-25-19 07:49:00* Test Item Value Reference Range Interpretation Comments Hepatitis B Surface Antibody, Quant (test code = 5194-6) 215.2 Immunity>9.9 Status of Immunity Anti-HBs Level Inconsistent with Immunity 0.0 - 9.9Consistent with Immunity >9.9[facility] CenterGlucose Oujdc4467-51-40 06:43:00* Test Item Value Reference Range Interpretation Comments Glucose Level (test code = LAT9732) 170 74-118 H [facility] CenterHemoglobin A1c Qpjzcpb6525-48-65 06:43:00 * Test Item Value Reference Range Interpretation Comments Hemoglobin A1c Percent (test code = Hemoglobin A1c Percent) 6.9 4.0-7.0 [facility] CenterThyroid Stimulating Hormone (TSH) 2018-12-25 06:43:00* Test Item Value Reference Range Interpretation Comments Thyroid Stimulating Hormone (TSH) (test code = 54131-5) 15.404 0.350-4.940 H [facility] CenterHemoglobin A1c Ohtewee6836-77-07 06:43:00 * Test Item Value Reference Range Interpretation Comments Hemoglobin A1c Percent (test code = Hemoglobin A1c Percent) 6.9 4.0-7.0 [facility] CenterThyroid Stimulating Hormone (TSH) 2018-12-25 06:43:00* Test Item Value Reference Range Interpretation Comments Thyroid Stimulating Hormone (TSH) (test code = 38143-1) 15.404 0.350-4.940 H [facility] CenterHemoglobin A1c Bexuuao4199-63-69 06:43:00 * Test Item Value Reference Range Interpretation Comments Hemoglobin A1c Percent (test code = Hemoglobin A1c Percent) 6.9 4.0-7.0 [facility] CenterThyroid Stimulating Hormone (TSH) 2018-12-25 06:43:00* Test Item Value Reference Range Interpretation Comments Thyroid Stimulating Hormone (TSH) (test code = 43553-0) 15.404 0.350-4.940 H [facility] CenterHemoglobin A1c Lljiwpc1732-40-39 06:43:00 * Test Item Value Reference Range Interpretation Comments Hemoglobin A1c Percent (test code = Hemoglobin A1c Percent) 6.9 4.0-7.0 [facility] CenterThyroid Stimulating Hormone (TSH) 2018-12-25 06:43:00* Test Item Value Reference Range Interpretation Comments Thyroid Stimulating Hormone (TSH) (test code = 49472-0) 15.404 0.350-4.940 H [facility] CenterHemoglobin A1c Ddyisrc8734-67-77 06:43:00 * Test Item Value Reference Range Interpretation Comments Hemoglobin A1c Percent (test code = Hemoglobin A1c Percent) 6.9 4.0-7.0 [facility] CenterHemoglobin A1c Bxsvwfg5542-59-08 06:43:00 * Test Item Value Reference Range Interpretation Comments Hemoglobin A1c Percent (test code = Hemoglobin A1c Percent) 6.9 4.0-7.0 [facility] CenterHemoglobin A1c Ncrjksh4072-81-79 06:43:00 * Test Item Value Reference Range Interpretation Comments Hemoglobin A1c Percent (test code = Hemoglobin A1c Percent) 6.9 4.0-7.0 [facility] CenterHemoglobin A1c Gsnbbvd9586-75-55 06:43:00 * Test Item Value Reference Range Interpretation Comments Hemoglobin A1c Percent (test code = Hemoglobin A1c Percent) 6.9 4.0-7.0 [facility] CenterHemoglobin A1c Qxhorkw3727-78-93 06:43:00 * Test Item Value Reference Range Interpretation Comments Hemoglobin A1c Percent (test code = Hemoglobin A1c Percent) 6.9 4.0-7.0 [facility] CenterHemoglobin A1c Lbcbafp5348-31-86 06:43:00 * Test Item Value Reference Range Interpretation Comments Hemoglobin A1c Percent (test code = Hemoglobin A1c Percent) 6.9 4.0-7.0 [facility] CenterHemoglobin A1c Qrhelzq8497-71-03 06:43:00 * Test Item Value Reference Range Interpretation Comments Hemoglobin A1c Percent (test code = Hemoglobin A1c Percent) 6.9 4.0-7.0 [facility] CenterHemoglobin A1c Pmhcjxp8101-91-18 06:43:00 * Test Item Value Reference Range Interpretation Comments Hemoglobin A1c Percent (test code = Hemoglobin A1c Percent) 6.9 4.0-7.0 [facility] CenterWhite Blood Jqaht1107-34-07 06:25:00* Test Item Value Reference Range Interpretation Comments White Blood Count (test code = 6690-2) 8.57 4.8-10.8 [facility] CenterRed Blood Ckkmc1142-49-99 06:25:00* Test Item Value Reference Range Interpretation Comments Red Blood Count (test code = 789-8) 3.78 3.6-5.1 [facility] CenterHemoglobin2019-06-12 06:25:00* Test Item Value Reference Range Interpretation Comments Hemoglobin (test code = 17700-3) 10.4 12.0-16.0 L [facility] CenterHematocrit2019-06-12 06:25:00* Test Item Value Reference Range Interpretation Comments Hematocrit (test code = 4544-3) 35.6 34.2-44.1 [facility] CenterMean Corpuscular Liriba8515-29-40 06:25:00* Test Item Value Reference Range Interpretation Comments Mean Corpuscular Volume (test code = 787-2) 94.2 81-99 [facility] CenterMean Corpuscular Joglaoriul7742-85-66 06:25:00* Test Item Value Reference Range Interpretation Comments Mean Corpuscular Hemoglobin (test code = 785-6) 27.5 28-32 L [facility] CenterMean Corpuscular Hemoglobin Concent 2018-12-25 06:25:00* Test Item Value Reference Range Interpretation Comments Mean Corpuscular Hemoglobin Concent (test code = 786-4) 29.2 31-35 L [facility] CenterRed Cell Distribution Grfho4914-78-84 06:25:00* Test Item Value Reference Range Interpretation Comments Red Cell Distribution Width (test code = 79504-8) 17.5 11.7 -14.4 H [facility] CenterPlatelet Ylnwb6200-42-50 06:25:00* Test Item Value Reference Range Interpretation Comments Platelet Count (test code = 777-3) 190 140-360 [facility] CenterNeutrophils (%) (Auto)2018-12-25 06:25:00 * Test Item Value Reference Range Interpretation Comments Neutrophils (%) (Auto) (test code = 32089-6) 66.3 38.7-80.0 [facility] CenterLymphocytes (%) (Auto)2018-12-25 06:25:00 * Test Item Value Reference Range Interpretation Comments Lymphocytes (%) (Auto) (test code = 736-9) 20.2 18.0-39.1 [facility] CenterMonocytes (%) (Auto)2018-12-25 06:25:00* Test Item Value Reference Range Interpretation Comments Monocytes (%) (Auto) (test code = 5905-5) 11.2 4.4-11.3 [facility] CenterEosinophils (%) (Auto)2018-12-25 06:25:00 * Test Item Value Reference Range Interpretation Comments Eosinophils (%) (Auto) (test code = 713-8) 1.9 0.0-6.0 [facility] CenterBasophils (%) (Auto)2018-12-25 06:25:00* Test Item Value Reference Range Interpretation Comments Basophils (%) (Auto) (test code = 706-2) 0.2 0.0-1.0 [facility] CenterIM GRANULOCYTES %2018-12-25 06:25:00* Test Item Value Reference Range Interpretation Comments IM GRANULOCYTES % (test code = IM GRANULOCYTES %) 0.2 0.0- 1.0 [facility] CenterNeutrophils # (Auto)2018-12-25 06:25:00* Test Item Value Reference Range Interpretation Comments Neutrophils # (Auto) (test code = 751-8) 5.7 2.1-6.9 [facility] CenterLymphocytes # (Auto)2018-12-25 06:25:00* Test Item Value Reference Range Interpretation Comments Lymphocytes # (Auto) (test code = 20793-3) 1.7 1.0-3.2 [facility] CenterMonocytes # (Auto)2018-12-25 06:25:00* Test Item Value Reference Range Interpretation Comments Monocytes # (Auto) (test code = 742-7) 1.0 0.2-0.8 H [facility] CenterEosinophils # (Auto)2018-12-25 06:25:00* Test Item Value Reference Range Interpretation Comments Eosinophils # (Auto) (test code = 711-2) 0.2 0.0-0.4 [facility] CenterBasophils # (Auto)2018-12-25 06:25:00* Test Item Value Reference Range Interpretation Comments Basophils # (Auto) (test code = 704-7) 0.0 0.0-0.1 [facility] CenterAbsolute Immature Granulocyte (auto 2018-12-25 06:25:00* Test Item Value Reference Range Interpretation Comments Absolute Immature Granulocyte (auto (toby t code = Absolute Immature Granulocyte (auto) 0.02 0-0.1 [facility]odium Dvhta5929-42-27 06:17:00* Test Item Value Reference Range Interpretation Comments Sodium Level (test code = 2951-2) 132 136-145 L [facility] CenterPotassium Jgteq1700-97-34 06:17:00* Test Item Value Reference Range Interpretation Comments Potassium Level (test code = 2823-3) 4.5 3.5-5.1 [facility] CenterChloride Tcjou4468-04-41 06:17:00* Test Item Value Reference Range Interpretation Comments Chloride Level (test code = 2075-0) 97 98-107 L [facility] CenterCarbon Dioxide Vbfnh1848-67-79 06:17:00* Test Item Value Reference Range Interpretation Comments Carbon Dioxide Level (test code = 2028-9) 26 22-29 [facility] CenterAnion Izv2677-08-95 06:17:00* Test Item Value Reference Range Interpretation Comments Anion Gap (test code = 87988-0) 13.5 8-16 [facility] CenterBlood Urea Fjyormlm9559-09-07 06:17:00* Test Item Value Reference Range Interpretation Comments Blood Urea Nitrogen (test code = 3094-0) 37 7-26 H [facility] CenterCreatinine2019-06-12 06:17:00* Test Item Value Reference Range Interpretation Comments Creatinine (test code = 2160-0) 7.06 0.57-1.11 H [facility] CenterBUN/Creatinine Gheqr5472-73-73 06:17:00* Test Item Value Reference Range Interpretation Comments BUN/Creatinine Ratio (test code = 3097-3) 5 6-25 L [facility] CenterEstimat Glomerular Filtration Rate 2018-12-25 06:17:00* Test Item Value Reference Range Interpretation Comments Estimat Glomerular Filtration Rate (test code = 947046919) 7 >60 L Ranges were taken from the National Kidney Disease Education Program and the [facility] Foundation literature.Reference ranges:60 or greater: Zpdfvg86-69 ( for 3 consecutive months): Chronic kidney disease 15 or less: Kidney failureKnapp Medical CenterCalcium Krhli3327-78-47 06:17:00* Test Item Value Reference Range Interpretation Comments Calcium Level (test code = 86941-0) 8.3 8.4-10.2 L [facility] CenterErythrocyte Sedimentation Rsff2790-90-01 17:00:00* Test Item Value Reference Range Interpretation Comments Erythrocyte Sedimentation Rate (test code = 4537-7) 48 0- 20 H [facility] CenterErythrocyte Sedimentation Woza3109-99-80 17:00:00* Test Item Value Reference Range Interpretation Comments Erythrocyte Sedimentation Rate (test code = 4537-7) 48 0- 20 H [facility] CenterErythrocyte Sedimentation Guaw6744-29-32 17:00:00* Test Item Value Reference Range Interpretation Comments Erythrocyte Sedimentation Rate (test code = 4537-7) 48 0- 20 H [facility] CenterErythrocyte Sedimentation Xbit6983-92-49 17:00:00* Test Item Value Reference Range Interpretation Comments Erythrocyte Sedimentation Rate (test code = 4537-7) 48 0- 20 H [facility] CenterErythrocyte Sedimentation Bkek9198-86-52 17:00:00* Test Item Value Reference Range Interpretation Comments Erythrocyte Sedimentation Rate (test code = 4537-7) 48 0- 20 H [facility] CenterErythrocyte Sedimentation Pmqv5345-41-41 17:00:00* Test Item Value Reference Range Interpretation Comments Erythrocyte Sedimentation Rate (test code = 4537-7) 48 0- 20 H [facility] CenterErythrocyte Sedimentation Xlcu7169-01-30 17:00:00* Test Item Value Reference Range Interpretation Comments Erythrocyte Sedimentation Rate (test code = 4537-7) 48 0- 20 H [facility] CenterErythrocyte Sedimentation Wdxq3022-55-86 17:00:00* Test Item Value Reference Range Interpretation Comments Erythrocyte Sedimentation Rate (test code = 4537-7) 48 0- 20 H [facility] CenterErythrocyte Sedimentation Dkxy5862-84-04 17:00:00* Test Item Value Reference Range Interpretation Comments Erythrocyte Sedimentation Rate (test code = 4537-7) 48 0- 20 H [facility] CenterErythrocyte Sedimentation Ntet9533-46-78 17:00:00* Test Item Value Reference Range Interpretation Comments Erythrocyte Sedimentation Rate (test code = 4537-7) 48 0- 20 H [facility] CenterErythrocyte Sedimentation Cyhw7022-29-66 17:00:00* Test Item Value Reference Range Interpretation Comments Erythrocyte Sedimentation Rate (test code = 4537-7) 48 0- 20 H [facility] CenterErythrocyte Sedimentation Jdhh2118-00-83 17:00:00* Test Item Value Reference Range Interpretation Comments Erythrocyte Sedimentation Rate (test code = 4537-7) 48 0- 20 H [facility] CenterMRI FOOT LEFT [id number] 14:58:00 [facility] [address] [place] [address] Patient Name: ANGELA JEFFERS MR #: [id number] : 1945 Age/Sex: 73/F Req #: [id number] Adm Physician: CHERELLE VELASQUEZ MD Ordered by: CHERELLE VELASQUEZ MD Report #: [id number] Location: [facility] Room/Bed: [facility] Procedure: [id number] M RI/MRI FOOT LEFT WO Exam Date: Exam Time: REPORT STATUS: Signed TECHNIQUE: Magne tic resonance imaging of the LEFT foot was performed WITHOUT injected contrast . HISTORY: Evaluate for infection COMPARISON: None available. DI SCUSSION: Subcutaneous edema and skin thickening of the lower extremity. 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 Mild scattered edema at the volar surfaces, however no T1 re placement. 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 Small ankle and subtalar fusion. IMPRESSION: Cellulitis of t he right foot without osteomyelitis. Signed by: Dr. Cris Walker M.D. on 12/24/2018 3:03 PM Dictated By: CRIS WALKER MD [id number] Transcribed By: ARIEL on 12/24/18 0491 COPY TO: CHERELLE VELASQUEZ MD Creatine Kinase BM7214-40-70 11:39:00* Test Item Value Reference Range Interpretation Comments Creatine Kinase MB (test code = 00778-7) 2.40 0-5.0 [place] 26876019-06-11 11:39:00* Test Item Value Reference Range Interpretation Comments Troponin I (test code = FNK1533) 0.038 0-0.300 [facility] CenterCreatine Kinase IR9686-82-80 11:39:00* Test Item Value Reference Range Interpretation Comments Creatine Kinase MB (test code = 65205-8) 2.40 0-5.0 [place] 26876019-06-11 11:39:00* Test Item Value Reference Range Interpretation Comments Troponin I (test code = CJH2706) 0.038 0-0.300 [facility] XO1436-66-08 11:39:00* Test Item Value Reference Range Interpretation Comments Creatine Kinase MB (test code = 09690-1) 2.40 0-5.0 [place] 26876019-06-11 11:39:00* Test Item Value Reference Range Interpretation Comments Troponin I (test code = BPG0381) 0.038 0-0.300 [facility] CenterCreat[facility] Kinase TJ4429-28-54 11:39:00* Test Item Value Reference Range Interpretation Comments Creatine Kinase MB (test code = 25965-1) 2.40 0-5.0 [place] 26876019-06-11 11:39:00* Test Item Value Reference Range Interpretation Comments Troponin I (test code = URE3130) 0.038 0-0.300 [facility] CenterCreatine Kinase HC4615-68-55 11:39:00* Test Item Value Reference Range Interpretation Comments Creatine Kinase MB (test code = 09626-9) 2.40 0-5.0 [place] 26876019-06-11 11:39:00* Test Item Value Reference Range Interpretation Comments Troponin I (test code = GDH2962) 0.038 0-0.300 [facility] CenterCreat[facility] Kinase KW2762-00-98 11:39:00* Test Item Value Reference Range Interpretation Comments Creatine Kinase MB (test code = 77321-6) 2.40 0-5.0 [place] 26876019-06-11 11:39:00* Test Item Value Reference Range Interpretation Comments Troponin I (test code = HSH8274) 0.038 0-0.300 [facility] CenterCreatine Kinase GD1846-59-31 11:39:00* Test Item Value Reference Range Interpretation Comments Creatine Kinase MB (test code = 32780-9) 2.40 0-5.0 [place] 26876019-06-11 11:39:00* Test Item Value Reference Range Interpretation Comments Troponin I (test code = SDV4882) 0.038 0-0.300 [facility] CenterCreatine Rkuemg8759-43-31 11:35:00* Test Item Value Reference Range Interpretation Comments Creatine Kinase (test code = 2157-6) 152 29-168 [facility]Creat[facility] Sjdder9646-38-35 11:35:00* Test Item Value Reference Range Interpretation Comments Creatine Kinase (test code = 2157-6) 152 29-168 [facility]Creat[facility] Chziuv1405-59-49 11:35:00* Test Item Value Reference Range Interpretation Comments Creatine Kinase (test code = 2157-6) 152 29-168 [facility] CenterCreat[facility] Loyisb1876-26-44 11:35:00* Test Item Value Reference Range Interpretation Comments Creatine Kinase (test code = 2157-6) 152 29-168 [facility] CenterCreat[facility] Tpzlcq6105-54-25 11:35:00* Test Item Value Reference Range Interpretation Comments Creatine Kinase (test code = 2157-6) 152 29-168 [facility] CenterCreat[facility] Qjefxc2303-30-85 11:35:00* Test Item Value Reference Range Interpretation Comments Creatine Kinase (test code = 2157-6) 152 29-168 [facility] CenterCreatine Mrbgrg2852-19-56 11:35:00* Test Item Value Reference Range Interpretation Comments Creatine Kinase (test code = 2157-6) 152 29-168 [facility] CenterTotal Djugbapax1250-83-80 06:55:00* Test Item Value Reference Range Interpretation Comments Total Bilirubin (test code = 1975-2) 0.4 0.2-1.2 [facility] CenterAspartate Amino Transf (AST/SGOT) 2018-12-24 06:55:00* Test Item Value Reference Range Interpretation Comments Aspartate Amino Transf (AST/SGOT) (test code = Aspartate Amino Transf (AST/SGOT)) 12 5-34 [facility] CenterAlanine Aminotransferase (ALT/SGPT) 2018-12-24 06:55:00* Test Item Value Reference Range Interpretation Comments Alanine Aminotransferase (ALT/SGPT) (test code = 1742-6) 8 0-55 [facility] CenterTotal Hyonlac4617-02-49 06:55:00* Test Item Value Reference Range Interpretation Comments Total Protein (test code = 2885-2) 6.5 6.5-8.1 [facility] CenterAlbumin2019-06-11 06:55:00* Test Item Value Reference Range Interpretation Comments Albumin (test code = 1751-7) 2.7 3.5-5.0 L [facility] CenterGlobulin2019-06-11 06:55:00* Test Item Value Reference Range Interpretation Comments Globulin (test code = 09814-5) 3.8 2.3-3.5 H [facility] CenterAlbumin/Globulin Lanpx7577-19-66 06:55:00 * Test Item Value Reference Range Interpretation Comments Albumin/Globulin Ratio (test code = 1759-0) 0.7 0.8-2.0 L [facility] CenterAlkaline Pvfoxgxpgwi5050-31-54 06:55:00* Test Item Value Reference Range Interpretation Comments Alkaline Phosphatase (test code = 6768-6) 76 40-150 [facility] CenterANKLE 3+ VIEWS JJYK3114-15-62 19:45:00 [facility] [address] [place] [address] Patient Name: ANGELA JEFFERS MR #: [id number] : 1945 Age/Sex: 73/F Req #: [id number] Adm Physician: Ordered by: KHURRAM ESCALANTE NP Report #: [id number] Location: ER Room/Bed: Procedure: 0610-007 6 DX/ANKLE 3+ VIEWS LEFT Exam Date: 12/23/18 Exam Ti me: 1855 REPORT STATUS: Signed A NKLE 3+ VIEWS LEFT - 3 views HISTORY: Swelling COMPARISON: Left foot rad iographs dated 11/06/2018 FINDINGS: Bones: 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 Focal cortical erosion of the anterior plantar calcaneus, annotated on the lateral image, suspicious for osteomyelitis. Plantar calcaneal spur. The alignment is normal. Deonna ints: The joint spaces are well-maintained. Soft tissues: Soft tissue s welling around the hindfoot and lateral aspect of the left leg. Globular hydraulic miner alization along the medial aspect of the distal tibia may represent HADD or se quela from prior trauma. IMPRESSION: Focal cortical erosion in the an terior plantar surface of the calcaneus suspicious for osteomyelitis. Sig davonte by: Baljeet Khanna MD on 12/23/2018 7:51 PM Dictated By: OZIEL KHANNA MD 50 T ranscribed By: ARIEL on 12/23/181950 COPY TO: KHURRAM ESCALANTE NP Lactic Acid Ixyja1275-30-50 19:39:00* Test Item Value Reference Range Interpretation Comments Lactic Acid Level (test code = Lactic Acid Level) 13.7 4.5- 19.8 [facility] Lglbg7919-01-14 19:39:00* Test Item Value Reference Range Interpretation Comments Lactic Acid Level (test code = Lactic Acid Level) 13.7 4.5- 19.8 [facility] Skukm8781-45-29 19:39:00* Test Item Value Reference Range Interpretation Comments Lactic Acid Level (test code = Lactic Acid Level) 13.7 4.5- 19.8 [facility] Edghi8518-87-11 19:39:00* Test Item Value Reference Range Interpretation Comments Lactic Acid Level (test code = Lactic Acid Level) 13.7 4.5- 19.8 [facility] Sfipg1921-78-24 19:39:00* Test Item Value Reference Range Interpretation Comments Lactic Acid Level (test code = Lactic Acid Level) 13.7 4.5- 19.8 [facility] Pjvde6831-27-04 19:39:00* Test Item Value Reference Range Interpretation Comments Lactic Acid Level (test code = Lactic Acid Level) 13.7 4.5- 19.8 [facility] Nnsjl6624-88-26 19:39:00* Test Item Value Reference Range Interpretation Comments Lactic Acid Level (test code = Lactic Acid Level) 13.7 4.5- 19.8 [facility] Dlfdp5549-42-58 19:39:00* Test Item Value Reference Range Interpretation Comments Lactic Acid Level (test code = Lactic Acid Level) 13.7 4.5- 19.8 [facility] Bjlel5286-10-11 19:39:00* Test Item Value Reference Range Interpretation Comments Lactic Acid Level (test code = Lactic Acid Level) 13.7 4.5- 19.8 [facility] CenterLactic Acid Xrhhr7061-31-13 19:39:00* Test Item Value Reference Range Interpretation Comments Lactic Acid Level (test code = Lactic Acid Level) 13.7 4.5- 19.8 [facility] CenterLactic Acid Fdmek7595-89-85 19:39:00* Test Item Value Reference Range Interpretation Comments Lactic Acid Level (test code = Lactic Acid Level) 13.7 4.5- 19.8 [facility] CenterLactic Acid Mviyw0134-00-38 19:39:00* Test Item Value Reference Range Interpretation Comments Lactic Acid Level (test code = Lactic Acid Level) 13.7 4.5- 19.8 [facility] CenterBedside Egdvzos7128-65-50 15:39:00* Test Item Value Reference Range Interpretation Comments Bedside Glucose (test code = 88294-8) 209 70-120 H Meter ID: [id number] [facility] 2018-11-13 09:11:00* Test Item Value Reference Range Interpretation Comments Wound Culture (test code = 6462-6) Organism: GRAM NEGATIVE BACILLUS [facility] Lake[facility] Ldymj2568-66-45 10:30:00* Test Item Value Reference Range Interpretation Comments Sodium Level (test code = 2951-2) 135 136-145 L [facility] CenterPotassium Yzpkq9422-62-05 10:30:00* Test Item Value Reference Range Interpretation Comments Potassium Level (test code = 2823-3) 4.8 3.5-5.1 [facility] CenterChloride Klmtd3521-36-84 10:30:00* Test Item Value Reference Range Interpretation Comments Chloride Level (test code = 2075-0) 94 98-107 L [facility] CenterCarbon Dioxide Nbcmh9411-71-51 10:30:00* Test Item Value Reference Range Interpretation Comments Carbon Dioxide Level (test code = 2028-9) 26 22-29 [facility] CenterAnion Xhh8878-96-89 10:30:00* Test Item Value Reference Range Interpretation Comments Anion Gap (test code = 48984-6) 19.8 8-16 H [facility] CenterBlood Urea Deqgfjyr4748-21-99 10:30:00* Test Item Value Reference Range Interpretation Comments Blood Urea Nitrogen (test code = 3094-0) 62 7-26 H [facility] CenterCreatinine2019-04-29 10:30:00* Test Item Value Reference Range Interpretation Comments Creatinine (test code = 2160-0) 10.15 0.57-1.11 H [facility] CenterBUN/Creatinine Tqhuf0195-80-77 10:30:00* Test Item Value Reference Range Interpretation Comments BUN/Creatinine Ratio (test code = 3097-3) 6 6-25 [facility] CenterEstimat Glomerular Filtration Rate 2018-11-11 10:30:00* Test Item Value Reference Range Interpretation Comments Estimat Glomerular Filtration Rate (test code = 211681147) 5 >60 L Ranges were taken from the National Kidney Disease Education Program and the [facility] Kidney Foundation literature.Reference ranges:60 or greater: Fgpzkw74-38 ( for 3 consecutive months): Chronic kidney disease 15 or less: Kidney failureKnapp Medical CenterGlucose Mckcg3151-34-38 10:30:00* Test Item Value Reference Range Interpretation Comments Glucose Level (test code = DFS3205) 192 74-118 H [facility] CenterCalcium Pmblj3901-44-81 10:30:00* Test Item Value Reference Range Interpretation Comments Calcium Level (test code = 99060-4) 7.2 8.4-10.2 L [facility] CenterWhite Blood Koxwv1046-90-46 10:08:00* Test Item Value Reference Range Interpretation Comments White Blood Count (test code = 6690-2) 6.81 4.8-10.8 [facility] CenterRed Blood Eapke6278-82-73 10:08:00* Test Item Value Reference Range Interpretation Comments Red Blood Count (test code = 789-8) 3.93 3.6-5.1 [facility] CenterHemoglobin2019-04-29 10:08:00* Test Item Value Reference Range Interpretation Comments Hemoglobin (test code = 70069-8) 10.9 12.0-16.0 L [facility] CenterHematocrit2019-04-29 10:08:00* Test Item Value Reference Range Interpretation Comments Hematocrit (test code = 4544-3) 35.5 34.2-44.1 [facility] CenterMean Corpuscular Ocvjth1567-23-03 10:08:00* Test Item Value Reference Range Interpretation Comments Mean Corpuscular Volume (test code = 787-2) 90.3 81-99 [facility] CenterMean Corpuscular Roocaolytj5171-84-47 10:08:00* Test Item Value Reference Range Interpretation Comments Mean Corpuscular Hemoglobin (test code = 785-6) 27.7 28-32 L [facility] CenterMean Corpuscular Hemoglobin Concent 2018-11-11 10:08:00* Test Item Value Reference Range Interpretation Comments Mean Corpuscular Hemoglobin Concent (test code = 786-4) 30.7 31-35 L [facility] CenterRed Cell Distribution Ytqaa3371-73-36 10:08:00* Test Item Value Reference Range Interpretation Comments Red Cell Distribution Width (test code = 96571-7) 15.9 11.7 -14.4 H [facility] CenterPlatelet Kjqhh2613-23-47 10:08:00* Test Item Value Reference Range Interpretation Comments Platelet Count (test code = 777-3) 188 140-360 [facility] CenterNeutrophils (%) (Auto)2018-11-11 10:08:00 * Test Item Value Reference Range Interpretation Comments Neutrophils (%) (Auto) (test code = 77351-5) 72.7 38.7-80.0 [facility] CenterLymphocytes (%) (Auto)2018-11-11 10:08:00 * Test Item Value Reference Range Interpretation Comments Lymphocytes (%) (Auto) (test code = 736-9) 14.0 18.0-39.1 L [facility] CenterMonocytes (%) (Auto)2018-11-11 10:08:00* Test Item Value Reference Range Interpretation Comments Monocytes (%) (Auto) (test code = 5905-5) 11.2 4.4-11.3 [facility] CenterEosinophils (%) (Auto)2018-11-11 10:08:00 * Test Item Value Reference Range Interpretation Comments Eosinophils (%) (Auto) (test code = 713-8) 1.6 0.0-6.0 [facility] CenterBasophils (%) (Auto)2018-11-11 10:08:00* Test Item Value Reference Range Interpretation Comments Basophils (%) (Auto) (test code = 706-2) 0.1 0.0-1.0 [facility] CenterIM GRANULOCYTES %2018-11-11 10:08:00* Test Item Value Reference Range Interpretation Comments IM GRANULOCYTES % (test code = IM GRANULOCYTES %) 0.4 0.0- 1.0 [facility] CenterNeutrophils # (Auto)2018-11-11 10:08:00* Test Item Value Reference Range Interpretation Comments Neutrophils # (Auto) (test code = 751-8) 5.0 2.1-6.9 [facility] CenterLymphocytes # (Auto)2018-11-11 10:08:00* Test Item Value Reference Range Interpretation Comments Lymphocytes # (Auto) (test code = 58785-4) 1.0 1.0-3.2 [facility] CenterMonocytes # (Auto)2018-11-11 10:08:00* Test Item Value Reference Range Interpretation Comments Monocytes # (Auto) (test code = 742-7) 0.8 0.2-0.8 [facility] CenterEosinophils # (Auto)2018-11-11 10:08:00* Test Item Value Reference Range Interpretation Comments Eosinophils # (Auto) (test code = 711-2) 0.1 0.0-0.4 [facility] CenterBasophils # (Auto)2018-11-11 10:08:00* Test Item Value Reference Range Interpretation Comments Basophils # (Auto) (test code = 704-7) 0.0 0.0-0.1 [facility] CenterAbsolute Immature Granulocyte (auto 2018-11-11 10:08:00* Test Item Value Reference Range Interpretation Comments Absolute Immature Granulocyte (auto (toby t code = Absolute Immature Granulocyte (auto) 0.03 0-0.1 [facility] CenterC-Reactive Qzpdnrs7005-76-77 08:46:00* Test Item Value Reference Range Interpretation Comments C-Reactive Protein (test code = 1988-5) 98.2 0.0-4.9 H Performed at: - [facility] [id number] Director: Ronald Arcos MD, Phone: [phone]. [facility] Medical Center A IgM Dfcfbjvh8943-78-19 08:45:00* Test Item Value Reference Range Interpretation Comments Hepatitis A IgM Antibody (test code = 30159-9) Negative Negativ e [facility] B Surface Dwfuvtp2478-63-45 08:45:00* Test Item Value Reference Range Interpretation Comments Hepatitis B Surface Antigen (test code = 5196-1) Negative Negat jinny [facility] B Core IgM Rgxoquae4271 08:45:00* Test Item Value Reference Range Interpretation Comments Hepatitis B Core IgM Antibody (test code = 46435-1) Negative Ne gative [facility] C Itxmudzy7739-23-80 08:45:00* Test Item Value Reference Range Interpretation Comments Hepatitis C Antibody (test code = 08113-6) <0.1 0.0-0.9 Negative: < 0.8 Indeterminate: 0.8 - 0.9 Positive: > 0.9 The CDC recommends that a positive HCV antibody result be followed up with a HCV Nucleic Acid Amplification test (596901).Performed at: [place] - [facility] [id number] Director: Ronald Arcos MD, Phone: [phone]. Joseph Medical Center A IgM Antibody 2018-11-08 08:45:00* Test Item Value Reference Range Interpretation Comments Hepatitis A IgM Antibody (test code = 36821-4) Negative [facility]atiJoint [facility] Gclyucld2562-27-61 08:45:00* Test Item Value Reference Range Interpretation Comments Hepatitis C Antibody (test code = 79122-6) <0.1 0.0-0.9 Negative: < 0.8 Indeterminate: 0.8 - 0.9 Positive: > 0.9 The CDC recommends that a positive HCV antibody result be followed up with a HCV Nucleic Acid Amplification test (627217).Performed at: [facility] [id number] Director: Ronald Arcos MD, Phone: [phone]. Joseph Medical Center A IgM Antibody 2018-11-08 08:45:00* Test Item Value Reference Range Interpretation Comments Hepatitis A IgM Antibody (test code = 97760-9) Negative NegatiCHRIST[facility] Faxcdhwu5012-41-69 08:45:00* Test Item Value Reference Range Interpretation Comments Hepatitis C Antibody (test code = 88022-2) <0.1 0.0-0.9 Negative: < 0.8 Indeterminate: 0.8 - 0.9 Positive: > 0.9 The CDC recommends that a positive HCV antibody result be followed up with a HCV Nucleic Acid Amplification test (904326).Performed at: [facility] [id number] Director: Ronald Arcos MD, Phone: [phone]. Joseph Medical Center A IgM Antibody 2018-11-08 08:45:00* Test Item Value Reference Range Interpretation Comments Hepatitis A IgM Antibody (test code = 02037-5) Negative Negativ [facility] C Ehkbetrn0833-87-27 08:45:00* Test Item Value Reference Range Interpretation Comments Hepatitis C Antibody (test code = 23045-6) <0.1 0.0-0.9 Negative: < 0.8 Indeterminate: 0.8 - 0.9 Positive: > 0.9 The CDC recommends that a positive HCV antibody result be followed up with a HCV Nucleic Acid Amplification test (464596).Performed at: [address] [id number] Director: Ronald Arcos MD, Phone: [phone] Medical CenterHemotion picture & television hospital A IgM Antibody 2018-11-08 08:45:00* Test Item Value Reference Range Interpretation Comments Hepatitis A IgM Antibody (test code = 71266-0) Negative Negativ e [facility] C Pxvxirgx1594-84-50 08:45:00* Test Item Value Reference Range Interpretation Comments Hepatitis C Antibody (test code = 48766-0) <0.1 0.0-0.9 Negative: < 0.8 Indeterminate: 0.8 - 0.9 Positive: > 0.9 The CDC recommends that a positive HCV antibody result be followed up with a HCV Nucleic Acid Amplification test (616627).Performed at: [address] [id number] Director: Ronald Arcos MD, Phone: [phone] Medical CenterThyroid Stimulating Hormone (TSH)2018-11-08 06:38:00* Test Item Value Reference Range Interpretation Comments Thyroid Stimulating Hormone (TSH) (test code = 69602-1) 24.451 0.350-4.940 H [facility] CenterCHEST SINGLE (PORTABLE)2018-11-07 15:08:00 [place] [address] Patient Name: ANGELA JEFFERS MR #: [id number] : 1945 Age/Sex: 73/F Req #: [id number] Adm Physician: CHERELLE VELASQUEZ MD Ordered by: CHERELLE VELASQUEZ MD Report #: [id number] Location: MED/SURG2 Room/Bed: [facility] Procedure: [id number] D X/CHEST SINGLE (PORTABLE) Exam Date: 11/07/18 Exam T crow: 1430 REPORT STATUS: Signed EXAM: CHEST SINGLE (PORTABLE) DATE: 11/07/2018 11:08 AM INDICATION:R enal disease, volume overload COMPARISON: Chest x-ray 11/06/2018 FI NDINGS: Lines and tubes: None Marked enlargement of the cardiac silhou ette again noted. There is central pulmonary vascular congestion, increased from previous exam. Opacity at the left lung base may represent edema and sma ll pleural effusion. Surgical clips are again seen at the left lung base. No p neumothorax. Upper abdomen unremarkable. No acute bony abnormality. IM PRESSION: Marked cardiomegaly with increased pulmonary vascular congestion. Li milli edema and small pleural effusion opacifying the left lung base. Sign ed by: Dr. Carlita Cook M.D. on 11/07/2018 3:11 PM Dictated By: CARLITA COOK MD 1511 Transcrib ed By: ARIEL on 11/07/18 1511 COPY TO: CHERELLE VELASQUEZ MD Total Qwwzplwvi9430-71-17 08:07:00* Test Item Value Reference Range Interpretation Comments Total Bilirubin (test code = 1975-2) 0.6 0.2-1.2 [facility] CenterAspartate Amino Transf (AST/SGOT) 2018-11-07 08:07:00* Test Item Value Reference Range Interpretation Comments Aspartate Amino Transf (AST/SGOT) (test code = Aspartate Amino Transf (AST/SGOT)) 11 5-34 [facility] CenterAlanine Aminotransferase (ALT/SGPT) 2018-11-07 08:07:00* Test Item Value Reference Range Interpretation Comments Alanine Aminotransferase (ALT/SGPT) (test code = 1742-6) 16 0-55 [facility] CenterTotal Ypefllq2327-29-20 08:07:00* Test Item Value Reference Range Interpretation Comments Total Protein (test code = 2885-2) 7.0 6.5-8.1 [facility] CenterAlbumin2019-04-25 08:07:00* Test Item Value Reference Range Interpretation Comments Albumin (test code = 1751-7) 2.5 3.5-5.0 L [facility] CenterGlobulin2019-04-25 08:07:00* Test Item Value Reference Range Interpretation Comments Globulin (test code = 67826-0) 4.5 2.3-3.5 H [facility] CenterAlbumin/Globulin Wpfrl6246-10-42 08:07:00 * Test Item Value Reference Range Interpretation Comments Albumin/Globulin Ratio (test code = 1759-0) 0.6 0.8-2.0 L [facility] CenterAlkaline Juhonqifesz2490-55-90 08:07:00* Test Item Value Reference Range Interpretation Comments Alkaline Phosphatase (test code = 6768-6) 93 40-150 [facility] CenterTriglycerides Hwucl6292-27-61 08:07:00* Test Item Value Reference Range Interpretation Comments Triglycerides Level (test code = 2571-8) 182 0-149 H [facility] CenterCholesterol Bocen0641-49-39 08:07:00* Test Item Value Reference Range Interpretation Comments Cholesterol Level (test code = 2093-3) 180 0-199 Less than 200 mg/dL Low Xtau534 - 239 mg/dL Borderline Whbx507 m g/dl and greater High Risk [facility] CenterLDL Lxtlpnkejph8044-03-85 08:07:00* Test Item Value Reference Range Interpretation Comments LDL Cholesterol (test code = 2089-1) 111 60-130 [facility] CenterHDL Gxewlxwiytp0172-38-69 08:07:00* Test Item Value Reference Range Interpretation Comments HDL Cholesterol (test code = 2085-9) 33 40-60 L [facility] CenterCholesterol/HDL Pcuvi4190-85-48 08:07:00 * Test Item Value Reference Range Interpretation Comments Cholesterol/HDL Ratio (test code = 9830-1) 5.5 3.0-3.6 H [facility] CenterCreatine Hysvvt5736-79-84 08:07:00* Test Item Value Reference Range Interpretation Comments Creatine Kinase (test code = 2157-6) 693 29-168 H [facility] CenterCreatine Kinase PK3777-26-09 08:07:00* Test Item Value Reference Range Interpretation Comments Creatine Kinase MB (test code = 76909-6) 3.60 0-5.0 [facility] CenterTroponin O1069-90-30 08:07:00* Test Item Value Reference Range Interpretation Comments Troponin I (test code = BHF4984) 0.041 0-0.300 [facility] CenterTriglycerides Evkux4664-23-76 08:07:00* Test Item Value Reference Range Interpretation Comments Triglycerides Level (test code = 2571-8) 182 0-149 H [facility] CenterCholesterol Aaoni9653-32-70 08:07:00* Test Item Value Reference Range Interpretation Comments Cholesterol Level (test code = 2093-3) 180 0-199 Less than 200 mg/dL Low Xowa532 - 239 mg/dL Borderline Pele230 m g/dl and greater High Risk [facility] CenterLDL Llyyrbtxcaf7219-43-90 08:07:00* Test Item Value Reference Range Interpretation Comments LDL Cholesterol (test code = 2089-1) 111 60-130 [facility] CenterHDL Epfjdwvxgdw8975-42-40 08:07:00* Test Item Value Reference Range Interpretation Comments HDL Cholesterol (test code = 2085-9) 33 40-60 L [facility] CenterCholesterol/HDL Nszli8882-42-44 08:07:00 * Test Item Value Reference Range Interpretation Comments Cholesterol/HDL Ratio (test code = 9830-1) 5.5 3.0-3.6 H [facility] CenterTriglycerides Hdlyf2267-86-25 08:07:00* Test Item Value Reference Range Interpretation Comments Triglycerides Level (test code = 2571-8) 182 0-149 H [facility] CenterCholesterol Nekts4818-17-87 08:07:00* Test Item Value Reference Range Interpretation Comments Cholesterol Level (test code = 2093-3) 180 0-199 Less than 200 mg/dL Low Tkqw543 - 239 mg/dL Borderline Fszy557 m g/dl and greater High Risk [facility] CenterLDL Vjegyoiqiqh3537-70-09 08:07:00* Test Item Value Reference Range Interpretation Comments LDL Cholesterol (test code = 9-1) 111 60-130 [facility] Ondiifjencr6568-00-32 08:07:00* Test Item Value Reference Range Interpretation Comments HDL Cholesterol (test code = 2085-9) 33 40-60 L [facility] CenterCholesterol/HDL Bvais6429-35-49 08:07:00 * Test Item Value Reference Range Interpretation Comments Cholesterol/HDL Ratio (test code = 9830-1) 5.5 3.0-3.6 H [facility] CenterTriglycerides Wcwyy8118-48-86 08:07:00* Test Item Value Reference Range Interpretation Comments Triglycerides Level (test code = 2571-8) 182 0-149 [facility] Vggcl8803-60-29 08:07:00* Test Item Value Reference Range Interpretation Comments Cholesterol Level (test code = 2093-3) 180 0-199 Less than 200 mg/dL Low Cfam169 - 239 mg/dL Borderline Puer835 m g/dl and greater [facility] Risk [facility]LDL Frtbuwqyrae3910-05-20 08:07:00* Test Item Value Reference Range Interpretation Comments LDL Cholesterol (test code = 9-1) 111 60-130 [facility] Yeekkizkkqv8378-01-65 08:07:00* Test Item Value Reference Range Interpretation Comments HDL Cholesterol (test code = 2085-9) 33 40-60 L [facility]HDL Hgxre5805-55-22 08:07:00 * Test Item Value Reference Range Interpretation Comments Cholesterol/HDL Ratio (test code = 9830-1) 5.5 3.0-3.6 [facility] CenterTriglycerides Ppwbt7073-47-03 08:07:00* Test Item Value Reference Range Interpretation Comments Triglycerides Level (test code = 2571-8) 182 0-149 [facility] Afkqp6246-99-20 08:07:00* Test Item Value Reference Range Interpretation Comments Cholesterol Level (test code = 2093-3) 180 0-199 Less than 200 mg/dL Low Ugpy459 - 239 mg/dL Borderline Gwqb839 m g/dl and greater [facility]LDL Obhcglmtoqk8027-31-18 08:07:00* Test Item Value Reference Range Interpretation Comments LDL Cholesterol (test code = 2089-1) 111 60-130 [facility]HDL Pdinjiaxvvk1786-01-51 08:07:00* Test Item Value Reference Range Interpretation Comments HDL Cholesterol (test code = 2085-9) 33 40-60 L [facility]HDL Awkuq8837-71-32 08:07:00 * Test Item Value Reference Range Interpretation Comments Cholesterol/HDL Ratio (test code = 9830-1) 5.5 3.0-3.6 [facility] CenterTriglycerides Tkxpl2647-09-16 08:07:00* Test Item Value Reference Range Interpretation Comments Triglycerides Level (test code = 2571-8) 182 0-149 [facility] Cablg4219-24-16 08:07:00* Test Item Value Reference Range Interpretation Comments Cholesterol Level (test code = 2093-3) 180 0-199 Less than 200 mg/dL Low Czty633 - 239 mg/dL Borderline Nuyi248 m g/dl and greater [facility]LDL Mzimegegboo2509-03-42 08:07:00* Test Item Value Reference Range Interpretation Comments LDL Cholesterol (test code = 2089-1) 111 60-130 [facility]HDL Psukgepwevf9565-37-35 08:07:00* Test Item Value Reference Range Interpretation Comments HDL Cholesterol (test code = 2085-9) 33 40-60 [facility]HDL Fngoe6620-20-46 08:07:00 * Test Item Value Reference Range Interpretation Comments Cholesterol/HDL Ratio (test code = 9830-1) 5.5 3.0-3.6 [facility] CenterTriglycerides Gaevi5611-29-65 08:07:00* Test Item Value Reference Range Interpretation Comments Triglycerides Level (test code = 2571-8) 182 0-149 [facility]Ch[facility] Hhdzd0885-53-24 08:07:00* Test Item Value Reference Range Interpretation Comments Cholesterol Level (test code = 2093-3) 180 0-199 Less than 200 mg/dL Low Xvav943 - 239 mg/dL Borderline Begi372 m g/dl and greater [facility]LDL Zdkghftgjtv7274-46-15 08:07:00* Test Item Value Reference Range Interpretation Comments LDL Cholesterol (test code = 2089-1) 111 60-130 [facility] Whzbdkyxmcd1475-90-08 08:07:00* Test Item Value Reference Range Interpretation Comments HDL Cholesterol (test code = 2085-9) 33 40-60 L [facility]HDL Csxds1242-82-46 08:07:00 * Test Item Value Reference Range Interpretation Comments Cholesterol/HDL Ratio (test code = 9830-1) 5.5 3.0-3.6 [facility] CenterTriglycer[facility] Lmhzv9647-49-23 08:07:00* Test Item Value Reference Range Interpretation Comments Triglycerides Level (test code = 2571-8) 182 0-149 [facility] Dbrjb2133-67-79 08:07:00* Test Item Value Reference Range Interpretation Comments Cholesterol Level (test code = 2093-3) 180 0-199 Less than 200 mg/dL Low Lrbp473 - 239 mg/dL Borderline Onsw323 m g/dl and greater [facility]LDL Aenmpfvgiha3903-80-32 08:07:00* Test Item Value Reference Range Interpretation Comments LDL Cholesterol (test code = 2089-1) 111 [facility] [facility] Nfkszkvsaas4333-41-71 08:07:00* Test Item Value Reference Range Interpretation Comments HDL Cholesterol (test code = 2085-9) 33 40-60 [facility]HDL Zohai9634-32-96 08:07:00 * Test Item Value Reference Range Interpretation Comments Cholesterol/HDL Ratio (test code = 9830-1) 5.5 3.0-3.6 [facility]Tr[facility] Zgtmv3713-56-64 08:07:00* Test Item Value Reference Range Interpretation Comments Triglycerides Level (test code = 2571-8) 182 0-149 [facility] Lokcq5292-45-53 08:07:00* Test Item Value Reference Range Interpretation Comments Cholesterol Level (test code = 2093-3) 180 0-199 Less than 200 mg/dL Low Ejev736 - 239 mg/dL Borderline Lfjj621 m g/dl and greater [facility]LDL Ocuqddrmsgn2096-71-39 08:07:00* Test Item Value Reference Range Interpretation Comments LDL Cholesterol (test code = 2089-1) 111 60-130 [facility] Zhffcjmqwqb5677-21-52 08:07:00* Test Item Value Reference Range Interpretation Comments HDL Cholesterol (test code = 2085-9) 33 40-60 L [facility]HDL Ipdrf2480-55-75 08:07:00 * Test Item Value Reference Range Interpretation Comments Cholesterol/HDL Ratio (test code = 9830-1) 5.5 3.0-3.6 [facility] CenterTriglycer[facility] Fsjqh1424-95-92 08:07:00* Test Item Value Reference Range Interpretation Comments Triglycerides Level (test code = 2571-8) 182 0-149 [facility] Mscts3883-95-66 08:07:00* Test Item Value Reference Range Interpretation Comments Cholesterol Level (test code = 2093-3) 180 0-199 Less than 200 mg/dL Low Vktc304 - 239 mg/dL Borderline Cioh893 m g/dl and greater [facility] Uwhljkhxvcu6877-43-68 08:07:00* Test Item Value Reference Range Interpretation Comments LDL Cholesterol (test code = 2089-1) 111 60-130 [facility] Aiordxpfipt4656-74-05 08:07:00* Test Item Value Reference Range Interpretation Comments HDL Cholesterol (test code = 2085-9) 33 40-60 L [facility]Ch[facility]/HDL Vaxim7357-09-34 08:07:00 * Test Item Value Reference Range Interpretation Comments Cholesterol/HDL Ratio (test code = 9830-1) 5.5 3.0-3.6 [facility] CenterTriglycer[facility] Thztd9491-90-48 08:07:00* Test Item Value Reference Range Interpretation Comments Triglycerides Level (test code = 2571-8) 182 0-149 [facility]Ch[facility] Kttyl3872-78-06 08:07:00* Test Item Value Reference Range Interpretation Comments Cholesterol Level (test code = 2093-3) 180 0-199 Less than 200 mg/dL Low Rxcx199 - 239 mg/dL Borderline Bmrs674 m g/dl and greater [facility] Risk [facility]LDL Xmbwfgndinw6178-06-46 08:07:00* Test Item Value Reference Range Interpretation Comments LDL Cholesterol (test code = 2089-1) 111 60-130 [facility]HDL Npoajstsket9151-89-03 08:07:00* Test Item Value Reference Range Interpretation Comments HDL Cholesterol (test code = 2085-9) 33 40-60 L [facility]Ch[facility]/HDL Pryiy7429-98-56 08:07:00 * Test Item Value Reference Range Interpretation Comments Cholesterol/HDL Ratio (test code = 9830-1) 5.5 3.0-3.6 [facility] CenterTr[facility] Lnnkd2603-21-15 08:07:00* Test Item Value Reference Range Interpretation Comments Triglycerides Level (test code = 2571-8) 182 0-149 [facility]Ch[facility] Pbvdl2915-11-13 08:07:00* Test Item Value Reference Range Interpretation Comments Cholesterol Level (test code = 2093-3) 180 0-199 Less than 200 mg/dL Low Fmiy970 - 239 mg/dL Borderline Wpwo154 m g/dl and greater [facility] Risk [facility]LDL Yfufkvosuyw9296-27-60 08:07:00* Test Item Value Reference Range Interpretation Comments LDL Cholesterol (test code = 2089-1) 111 60-130 [facility]HDL Fozscuvovwm0169-14-48 08:07:00* Test Item Value Reference Range Interpretation Comments HDL Cholesterol (test code = 2085-9) 33 40-60 [facility]Ch[facility]/HDL Yuhgg3370-97-07 08:07:00 * Test Item Value Reference Range Interpretation Comments Cholesterol/HDL Ratio (test code = 9830-1) 5.5 3.0-3.6 [facility] CenterFOOT LEFT OLYUZXCM4903-90-58 16:57:00 [facility] [address] [address] Patient Name: ANGELA JEFFERS MR #: [id number] : 1945 Age/Sex: 73/F Req #: [id number] Adm Physician: Ordered by: WILLIE SCHWRATZ MD Report #: [id number] Location: ER Room/Bed: Procedure: [id number] DX /FOOT LEFT COMPLETE Exam Date: 11/06/18 Exam Time: 600 REPORT STATUS: Signed Exa m: Left foot radiographs-3 views Clinical History: Left foot infection. Comparison: None. Findings: Exam is severely limited secondary to port able technique and lack of mobility. There has been prior foot amputation acro ss the anterior aspect of the talus and calcaneus. No specific evidence of bon y destructive change or periosteal reaction. There is soft tissue edema at the stump and at the ankle. No evidence of acute displaced fracture. Evaluati on for malalignment including of the ankle mortise is limited. Indetermin ate well-circumscribed bony fragment along the anterior medial soft tissues ad jacent to the tibia may reflect sequela of prior trauma. There is a planta r calcaneal spur. There is Achilles enthesopathy. Impression: Severely li mited examination demonstrating post amputation changes of the left foot witho ut specific radiographic evidence of osteomyelitis. If there is clinical sue rn for osteomyelitis, suggest MRI for further evaluation. Soft tissue edema as above. Signed by: Dr. Yi Clark MD on 11/06/2018 5:02 PM Dictat ed By: YI CLARK MD 01 Transcribed By: ARIEL on 11/06/181701 COPY TO: WILLIE SCHWARTZ MD CHEST SINGLE (PORTABLE)2018-11-06 16:49:[address] [address] Patient Name: ANGELA JEFFERS MR #: [id number] : 1945 Age/Sex: 73/F Req #: [id number] Adm Physician: Ordered by: WILLIE SCHWARTZ MD Report #: [id number] Location: ER Room/Bed: Procedure: [id number] DX /CHEST SINGLE (PORTABLE) Exam Date: 11/06/18 Exam Ti me: 1600 REPORT STATUS: Signed E XAMINATION: CHEST SINGLE (PORTABLE) INDICATION: ESRD, volume overload. COMPARISON: Chest radiograph 02/22/2018. FINDINGS: TUBES and L ELVIRA: None. LUNGS: Lungs are not well inflated. There are bilateral perih ilar and interstitial opacities. There are patchy opacities in the bilateral m id and lower lung zones. PLEURA: Possible trace bilateral pleural effusio ns. No evidence of pneumothorax. HEART AND MEDIASTINUM: There is moderate cardiomegaly. BONES AND SOFT TISSUES: No acute osseous abnormality. UPPER ABDOMEN: No free air under the diaphragm. IMPRESSION: Cardiome chuy with moderate pulmonary interstitial edema. Patchy opacities in the bilat eral mid and lower lung zones likely reflects alveolar edema in the setting of volume overload. Pneumonia may have a similar appearance in the appropriate c linical setting. Signed by: Dr. Yi Clark MD on 11/06/2018 4:56 PM Dictated By: YI CLARK MD 55 Transcribed By: ARIEL on 11/06/181655 COPY TO: WILLIE SCHWARTZ MD Magnesium Evawk1779-46-21 16:01:00* Test Item Value Reference Range Interpretation Comments Magnesium Level (test code = 96578-5) 2.3 1.3-2.1 [facility] Tovkp1099-05-65 16:01:00* Test Item Value Reference Range Interpretation Comments Magnesium Level (test code = 62488-9) 2.3 1.3-2.1 [facility] Ouctk4778-40-08 16:01:00* Test Item Value Reference Range Interpretation Comments Magnesium Level (test code = 41659-5) 2.3 1.3-2.1 [facility] Qaxhc1274-75-53 16:01:00* Test Item Value Reference Range Interpretation Comments Magnesium Level (test code = 90982-0) 2.3 1.3-2.1 [facility] Ljlbe6427-28-19 16:01:00* Test Item Value Reference Range Interpretation Comments Magnesium Level (test code = 87257-1) 2.3 1.3-2.1 [facility] Fhnztyg6826-22-56 15:53:00* Test Item Value Reference Range Interpretation Comments B-Type Natriuretic Peptide (test code = 52835-9) 814.1 0-100 [facility] Ldsfsng2513-78-08 15:53:00* Test Item Value Reference Range Interpretation Comments B-Type Natriuretic Peptide (test code = 58782-4) 814.1 0-100 [facility] Itopfvu3208-90-66 15:53:00* Test Item Value Reference Range Interpretation Comments B-Type Natriuretic Peptide (test code = 84200-5) 814.1 0-100 [facility] Emxghcl8066-44-57 15:53:00* Test Item Value Reference Range Interpretation Comments B-Type Natriuretic Peptide (test code = 85882-8) 814.1 0-100 [facility] Epezbea6678-87-84 15:53:00* Test Item Value Reference Range Interpretation Comments B-Type Natriuretic Peptide (test code = 98400-5) 814.1 0-100 [facility] Hcazfje3051-55-13 15:53:00* Test Item Value Reference Range Interpretation Comments B-Type Natriuretic Peptide (test code = 91636-3) 814.1 0-100 [facility] CenterProthrombin Jpev3262-85-93 15:27:00* Test Item Value Reference Range Interpretation Comments Prothrombin Time (test code = 5902-2) 14.5 11.9-14.5 [facility] CenterProthromb Time International Ratio 2018-11-06 15:27:00* Test Item Value Reference Range Interpretation Comments Prothromb Time International Ratio (test code = 6301-6) 1.08 Oral Anticoagulant Therapy INR Values:1. Low Intensity Therapy 1.5 - 2.02 . Moderate Intensity Therapy 2.0 - 3.03. High Intensity Therapy(1) 2.5 - 3. 54. High Intensity Therapy(2) 3.0 - 4.05. Panic Value INR > 5.0 [facility]Act[facility] Partial Thromboplast Time 2018-11-06 15:27:00* Test Item Value Reference Range Interpretation Comments Activated Partial Thromboplast Time (test code = 91336-5) 38.8 23.8-35.5 H [facility] CenterProthrombin Ydcy1689-20-84 15:27:00* Test Item Value Reference Range Interpretation Comments Prothrombin Time (test code = 5902-2) 14.5 11.9-14.5 [facility] CenterProthromb Time International Ratio 2018-11-06 15:27:00* Test Item Value Reference Range Interpretation Comments Prothromb Time International Ratio (test code = 6301-6) 1.08 Oral Anticoagulant Therapy INR Values:1. Low Intensity Therapy 1.5 - 2.02 . Moderate Intensity Therapy 2.0 - 3.03. High Intensity Therapy(1) 2.5 - 3. 54. High Intensity Therapy(2) 3.0 - 4.05. Panic Value INR > 5.0 [facility]Act[facility] Partial Thromboplast Time 2018-11-06 15:27:00* Test Item Value Reference Range Interpretation Comments Activated Partial Thromboplast Time (test code = 51486-5) 38.8 23.8-35.5 H [facility] CenterProthrombin Ynpn1349-82-33 15:27:00* Test Item Value Reference Range Interpretation Comments Prothrombin Time (test code = 5902-2) 14.5 11.9-14.5 [facility] CenterProth[facility] Time International Ratio 2018-11-06 15:27:00* Test Item Value Reference Range Interpretation Comments Prothromb Time International Ratio (test code = 6301-6) 1.08 Oral Anticoagulant Therapy INR Values:1. Low Intensity Therapy 1.5 - 2.02 . Moderate Intensity Therapy 2.0 - 3.03. High Intensity Therapy(1) 2.5 - 3. 54. High Intensity Therapy(2) 3.0 - 4.05. Panic Value INR > 5.0 [facility]Act[facility] Partial Thromboplast Time 2018-11-06 15:27:00* Test Item Value Reference Range Interpretation Comments Activated Partial Thromboplast Time (test code = 67414-8) 38.8 23.8-35.5 H [facility] CenterProthrombin Wjrt1534-62-67 15:27:00* Test Item Value Reference Range Interpretation Comments Prothrombin Time (test code = 5902-2) 14.5 11.9-14.5 [facility] CenterProth[facility] International Ratio 2018-11-06 15:27:00* Test Item Value Reference Range Interpretation Comments Prothromb Time International Ratio (test code = 6301-6) 1.08 Oral Anticoagulant Therapy INR Values:1. Low Intensity Therapy 1.5 - 2.02 . Moderate Intensity Therapy 2.0 - 3.03. High Intensity Therapy(1) 2.5 - 3. 54. High Intensity Therapy(2) 3.0 - 4.05. Panic Value INR > 5.0 [facility] Partial Thromboplast Time 2018-11-06 15:27:00* Test Item Value Reference Range Interpretation Comments Activated Partial Thromboplast Time (test code = 87717-3) 38.8 23.8-35.5 H [facility] CenterProthrombin Tywb3585-81-55 15:27:00* Test Item Value Reference Range Interpretation Comments Prothrombin Time (test code = 5902-2) 14.5 11.9-14.5 [facility] CenterProth[facility] Time International Ratio 2018-11-06 15:27:00* Test Item Value Reference Range Interpretation Comments Prothromb Time International Ratio (test code = 6301-6) 1.08 Oral Anticoagulant Therapy INR Values:1. Low Intensity Therapy 1.5 - 2.02 . Moderate Intensity Therapy 2.0 - 3.03. High Intensity Therapy(1) 2.5 - 3. 54. High Intensity Therapy(2) 3.0 - 4.05. Panic Value INR > 5.0 [facility] Thromboplast Time 2018-11-06 15:27:00* Test Item Value Reference Range Interpretation Comments Activated Partial Thromboplast Time (test code = 70870-5) 38.8 23.8-35.5 H [facility] CenterProthrombin Bcjm6856-63-92 15:27:00* Test Item Value Reference Range Interpretation Comments Prothrombin Time (test code = 5902-2) 14.5 11.9-14.5 [facility] CenterProthromb Time International Ratio 2018-11-06 15:27:00* Test Item Value Reference Range Interpretation Comments Prothromb Time International Ratio (test code = 6301-6) 1.08 Oral Anticoagulant Therapy INR Values:1. Low Intensity Therapy 1.5 - 2.02 . Moderate Intensity Therapy 2.0 - 3.03. High Intensity Therapy(1) 2.5 - 3. 54. High Intensity Therapy(2) 3.0 - 4.05. Panic Value INR > 5.0 [facility]Act[facility] Partial Thromboplast Time 2018-11-06 15:27:00* Test Item Value Reference Range Interpretation Comments Activated Partial Thromboplast Time (test code = 00451-6) 38.8 23.8-35.5 [facility] CenterAct[facility] Partial Thromboplast Time 2018-11-06 15:27:00* Test Item Value Reference Range Interpretation Comments Activated Partial Thromboplast Time (test code = 12683-1) 38.8 23.8-35.5 [facility] CenterAct[facility] Partial Thromboplast Time 2018-11-06 15:27:00* Test Item Value Reference Range Interpretation Comments Activated Partial Thromboplast Time (test code = 68947-3) 38.8 23.8-35.5 H [facility] CenterTISSUE CNPD8680-07-41 16:11:00Surgical Pathology Report Case: [id number] Authorizing Provider: Goyo Haji, Collected: 09/10/2018 135Delmi KHANNA Ordering Location: [facility] Received: 09/10/2018 1506 SERVICES Pathologist: Rajesh Lund MD Specimen: Foot, Left, LEFT FOREFOOT FOOT, LEFT FOREFOOT, AMPUTATION- GANGRENOUS NECROSIS- DEFINITIVE ACUTE OSTEOMYELITIS NOT IDENTIFIED- FAT NECROSIS IN BONE MARROW UNDERLYING ULCER- SKIN, SOFT TISSUE AND BONE MARGINS VIABLE Signing Pathologist Direct Phone Line: [phone] signed by Rajesh Lund MD on 09/27/2018 at 4:11 [id number], [id number] Left forefootThe sp ecimen is received in a formalin-filled container and labeled with the patient's information and labeled "left forefoot" and consists of a amputated left forefo ot measuring 15 x 8 x 3.5 cm. The second digit has been previously amputated. Al l other digits are present. The third and previous amputation site of the second digit are involved with gangrene. No other abnormalities are seen. Section code: A1, skin margin en face; A2, cross section of third digit with gangrene and un derlying bone with necrotic tissue of previous amputation site of the second dig it; A3 to A6, all bone margins, great toe to 5th digit respectively. CG/pl Perf ormed.BLOOD KTVTJYZ9400-44-62 11:02:00* Test Item Value Reference Range Interpretation Comments CULTURE (BEAKER) (test code = 1095) No growth in 5 days BLOOD MSKNTXR5100-57-91 01:00:00* Test Item Value Reference Range Interpretation Comments CULTURE (BEAKER) (test code = 1095) No growth in 5 days POCT-GLUCOSE [id number] 14:45:00* Test Item Value Reference Range Interpretation Comments POC-GLUCOSE METER (BEAKER) (test code = 1538) 192 mg/dL 70-110 H TESTED AT [address] [address] POCT-GLUCOSE [id number] 12:52:00* Test Item Value Reference Range Interpretation Comments POC-GLUCOSE METER (BEAKER) (test code = 1538) 146 mg/dL 70-110 H TESTED AT [address] [address] POCT-GLUCOSE [id number] 08:41:00* Test Item Value Reference Range Interpretation Comments POC-GLUCOSE METER (BEAKER) (test code = 1538) 244 mg/dL 70-110 H TESTED AT [address] [address] BASIC METABOLIC [id number] 06:23:00* Test Item Value Reference Range Interpretation Comments SODIUM (BEAKER) (test code = 381) 136 meq/L 136-145 POTASSIUM (BEAKER) (test code = 379) 4.3 meq/L 3.5-5.1 CHLORIDE (BEAKER) (test code = 382) 99 meq/L 98-107 CO2 (BEAKER) (test code = 355) 29 meq/L 22-29 BLOOD UREA NITROGEN (BEAKER) (test code = 354) 38 mg/dL 7-21 H CREATININE (BEAKER) (test code = 358) 7.60 mg/dL 0.57-1.25 H GLUCOSE RANDOM (BEAKER) (test code = 652) 124 mg/dL 70-105 H CALCIUM (BEAKER) (test code = 697) 10.2 mg/dL 8.4-10.2 EGFR (BEAKER) (test code = 1092) 6 mL/min/1.73 sq m ESTIMATED GFR IS NOT ACCURATE CREATININE CLEARANCE IN PREDICTING GLOMERULAR FILTRATION RATE. ESTIMATED GFR IS NOT APPLICABLE FOR DIALYSIS PATIENTS. CBC W/PLT COUNT & AUTO [id number] 05:44:00* Test Item Value Reference Range Interpretation Comments WHITE BLOOD CELL COUNT (BEAKER) (test code = 775) 5.9 K/ L 3.5- 10.5 RED BLOOD CELL COUNT (BEAKER) (test code = 761) 3.20 M/ L 3.93-5 .22 L HEMOGLOBIN (BEAKER) (test code = 410) 8.3 GM/DL 11.2-15.7 L HEMATOCRIT (BEAKER) (test code = 411) 29.5 % 34.1-44.9 L MEAN CORPUSCULAR VOLUME (BEAKER) (test code = 753) 92.2 fL 79. 4-94.8 MEAN CORPUSCULAR HEMOGLOBIN (BEAKER) (test code = 751) 25.9 pg 25.6-32.2 MEAN CORPUSCULAR HEMOGLOBIN CONC (BEAKER) (test code = 752) 28.1 GM/DL 32.2-35.5 L RED CELL DISTRIBUTION WIDTH (BEAKER) (test code = 412) 15.4 % 11.7-14.4 H PLATELET COUNT (BEAKER) (test code = 756) 247 K/CU MM 150-450 MEAN PLATELET VOLUME (BEAKER) (test code = 754) 10.7 fL 9.4-12 .3 NUCLEATED RED BLOOD CELLS (BEAKER) (test code = 413) 0 /100 WBC 0 -0 NEUTROPHILS RELATIVE PERCENT (BEAKER) (test code = 429) 68 % LYMPHOCYTES RELATIVE PERCENT (BEAKER) (test code = 430) 19 % MONOCYTES RELATIVE PERCENT (BEAKER) (test code = 431) 10 % EOSINOPHILS RELATIVE PERCENT (BEAKER) (test code = 432) 2 % BASOPHILS RELATIVE PERCENT (BEAKER) (test code = 437) 0 % NEUTROPHILS ABSOLUTE COUNT (BEAKER) (test code = 670) 4.01 K/ L 1.56-6.13 LYMPHOCYTES ABSOLUTE COUNT (BEAKER) (test code = 414) 1.10 K/ L 1.18-3.74 L MONOCYTES ABSOLUTE COUNT (BEAKER) (test code = 415) 0.61 K/ L 0. 24-0.36 H EOSINOPHILS ABSOLUTE COUNT (BEAKER) (test code = 416) 0.13 K/ L 0.04-0.36 BASOPHILS ABSOLUTE COUNT (BEAKER) (test code = 417) 0.01 K/ L 0. 01-0.08 IMMATURE GRANULOCYTES-RELATIVE PERCENT (BEAKER) (test code = 2801) 0 % 0-1 POCT-GLUCOSE [id number] 21:42:00* Test Item Value Reference Range Interpretation Comments POC-GLUCOSE METER (BEAKER) (test code = 1538) 141 mg/dL 70-110 H TESTED AT [address] [address] POCT-GLUCOSE [id number] 18:00:00* Test Item Value Reference Range Interpretation Comments POC-GLUCOSE METER (BEAKER) (test code = 1538) 154 mg/dL 70-110 H TESTED AT [address] [address] POCT-GLUCOSE [id number] 17:17:00* Test Item Value Reference Range Interpretation Comments POC-GLUCOSE METER (BEAKER) (test code = 1538) 206 mg/dL 70-110 H TESTED AT [address] [address] POCT-GLUCOSE [id number] 08:33:00* Test Item Value Reference Range Interpretation Comments POC-GLUCOSE METER (BEAKER) (test code = 1538) 141 mg/dL 70-110 H TESTED AT [address] [address] POCT-GLUCOSE [id number] 22:08:00* Test Item Value Reference Range Interpretation Comments POC-GLUCOSE METER (BEAKER) (test code = 1538) 152 mg/dL 70-110 H TESTED AT [address] [address] POCT-GLUCOSE [id number] 16:36:00* Test Item Value Reference Range Interpretation Comments POC-GLUCOSE METER (BEAKER) (test code = 1538) 134 mg/dL 70-110 H TESTED AT [address] [address] POCT-GLUCOSE [id number] 11:49:00* Test Item Value Reference Range Interpretation Comments POC-GLUCOSE METER (BEAKER) (test code = 1538) 205 mg/dL 70-110 H TESTED AT [address] [address] POCT-GLUCOSE [id number] 09:33:00* Test Item Value Reference Range Interpretation Comments POC-GLUCOSE METER (BEAKER) (test code = 1538) 190 mg/dL 70-110 H TESTED AT [address] [address] POCT-GLUCOSE [id number] 21:27:00* Test Item Value Reference Range Interpretation Comments POC-GLUCOSE METER (BEAKER) (test code = 1538) 231 mg/dL 70-110 H TESTED AT [address] [address] BASIC METABOLIC [id number] 16:52:00* Test Item Value Reference Range Interpretation Comments SODIUM (BEAKER) (test code = 381) 137 meq/L 136-145 POTASSIUM (BEAKER) (test code = 379) 3.8 meq/L 3.5-5.1 CHLORIDE (BEAKER) (test code = 382) 103 meq/L 98-107 CO2 (BEAKER) (test code = 355) 25 meq/L 22-29 BLOOD UREA NITROGEN (BEAKER) (test code = 354) 32 mg/dL 7-21 H CREATININE (BEAKER) (test code = 358) 6.69 mg/dL 0.57-1.25 H GLUCOSE RANDOM (BEAKER) (test code = 652) 124 mg/dL 70-105 H CALCIUM (BEAKER) (test code = 697) 7.7 mg/dL 8.4-10.2 L EGFR (BEAKER) (test code = 1092) 7 mL/min/1.73 sq m ESTIMATED GFR IS NOT ACCURATE CREATININE CLEARANCE IN PREDICTING GLOMERULAR FILTRATION RATE. ESTIMATED GFR IS NOT APPLICABLE FOR DIALYSIS PATIENTS. POCT-GLUCOSE [id number] 12:53:00* Test Item Value Reference Range Interpretation Comments POC-GLUCOSE METER (BEAKER) (test code = 1538) 181 mg/dL 70-110 H TESTED AT [address] [address] POCT-GLUCOSE [id number] 09:31:00* Test Item Value Reference Range Interpretation Comments POC-GLUCOSE METER (BEAKER) (test code = 1538) 202 mg/dL 70-110 H TESTED AT [address] [address] CBC W/PLT COUNT & AUTO [id number] 06:58:00* Test Item Value Reference Range Interpretation Comments WHITE BLOOD CELL COUNT (BEAKER) (test code = 775) 8.3 K/ L 3.5- 10.5 RED BLOOD CELL COUNT (BEAKER) (test code = 761) 3.25 M/ L 3.93-5 .22 L HEMOGLOBIN (BEAKER) (test code = 410) 8.5 GM/DL 11.2-15.7 L HEMATOCRIT (BEAKER) (test code = 411) 30.5 % 34.1-44.9 L MEAN CORPUSCULAR VOLUME (BEAKER) (test code = 753) 93.8 fL 79. 4-94.8 MEAN CORPUSCULAR HEMOGLOBIN (BEAKER) (test code = 751) 26.2 pg 25.6-32.2 MEAN CORPUSCULAR HEMOGLOBIN CONC (BEAKER) (test code = 752) 27.9 GM/DL 32.2-35.5 L RED CELL DISTRIBUTION WIDTH (BEAKER) (test code = 412) 15.9 % 11.7-14.4 H PLATELET COUNT (BEAKER) (test code = 756) 258 K/CU MM 150-450 MEAN PLATELET VOLUME (BEAKER) (test code = 754) 11.3 fL 9.4-12 .3 NUCLEATED RED BLOOD CELLS (BEAKER) (test code = 413) 0 /100 WBC 0 -0 NEUTROPHILS RELATIVE PERCENT (BEAKER) (test code = 429) 75 % LYMPHOCYTES RELATIVE PERCENT (BEAKER) (test code = 430) 13 % MONOCYTES RELATIVE PERCENT (BEAKER) (test code = 431) 10 % EOSINOPHILS RELATIVE PERCENT (BEAKER) (test code = 432) 2 % BASOPHILS RELATIVE PERCENT (BEAKER) (test code = 437) 0 % NEUTROPHILS ABSOLUTE COUNT (BEAKER) (test code = 670) 6.18 K/ L 1.56-6.13 H LYMPHOCYTES ABSOLUTE COUNT (BEAKER) (test code = 414) 1.07 K/ L 1.18-3.74 L MONOCYTES ABSOLUTE COUNT (BEAKER) (test code = 415) 0.85 K/ L 0. 24-0.36 H EOSINOPHILS ABSOLUTE COUNT (BEAKER) (test code = 416) 0.13 K/ L 0.04-0.36 BASOPHILS ABSOLUTE COUNT (BEAKER) (test code = 417) 0.01 K/ L 0. 01-0.08 IMMATURE GRANULOCYTES-RELATIVE PERCENT (BEAKER) (test code = 2801) 1 % 0-1 POCT-GLUCOSE [id number] 20:59:00* Test Item Value Reference Range Interpretation Comments POC-GLUCOSE METER (BEAKER) (test code = 1538) 235 mg/dL 70-110 H TESTED AT [address] [address] POCT-GLUCOSE [id number] 18:57:00* Test Item Value Reference Range Interpretation Comments POC-GLUCOSE METER (BEAKER) (test code = 1538) 199 mg/dL 70-110 H TESTED AT [address] [address] POCT-GLUCOSE [id number] 13:03:00* Test Item Value Reference Range Interpretation Comments POC-GLUCOSE METER (BEAKER) (test code = 1538) 200 mg/dL 70-110 H TESTED AT [address] [address] POCT-GLUCOSE [id number] 09:06:00* Test Item Value Reference Range Interpretation Comments POC-GLUCOSE METER (BEAKER) (test code = 1538) 222 mg/dL 70-110 H TESTED AT [address] [address] CBC W/PLT COUNT & AUTO [id number] 06:32:00* Test Item Value Reference Range Interpretation Comments WHITE BLOOD CELL COUNT (BEAKER) (test code = 775) 9.9 K/ L 3.5- 10.5 RED BLOOD CELL COUNT (BEAKER) (test code = 761) 3.21 M/ L 3.93-5 .22 L HEMOGLOBIN (BEAKER) (test code = 410) 8.1 GM/DL 11.2-15.7 L HEMATOCRIT (BEAKER) (test code = 411) 30.0 % 34.1-44.9 L MEAN CORPUSCULAR VOLUME (BEAKER) (test code = 753) 93.5 fL 79. 4-94.8 MEAN CORPUSCULAR HEMOGLOBIN (BEAKER) (test code = 751) 25.2 pg 25.6-32.2 L MEAN CORPUSCULAR HEMOGLOBIN CONC (BEAKER) (test code = 752) 27.0 GM/DL 32.2-35.5 L RED CELL DISTRIBUTION WIDTH (BEAKER) (test code = 412) 15.5 % 11.7-14.4 H PLATELET COUNT (BEAKER) (test code = 756) 253 K/CU MM 150-450 MEAN PLATELET VOLUME (BEAKER) (test code = 754) 11.0 fL 9.4-12 .3 NUCLEATED RED BLOOD CELLS (BEAKER) (test code = 413) 0 /100 WBC 0 -0 NEUTROPHILS RELATIVE PERCENT (BEAKER) (test code = 429) 79 % LYMPHOCYTES RELATIVE PERCENT (BEAKER) (test code = 430) 10 % MONOCYTES RELATIVE PERCENT (BEAKER) (test code = 431) 10 % EOSINOPHILS RELATIVE PERCENT (BEAKER) (test code = 432) 1 % BASOPHILS RELATIVE PERCENT (BEAKER) (test code = 437) 0 % NEUTROPHILS ABSOLUTE COUNT (BEAKER) (test code = 670) 7.77 K/ L 1.56-6.13 H LYMPHOCYTES ABSOLUTE COUNT (BEAKER) (test code = 414) 1.01 K/ L 1.18-3.74 L MONOCYTES ABSOLUTE COUNT (BEAKER) (test code = 415) 0.98 K/ L 0. 24-0.36 H EOSINOPHILS ABSOLUTE COUNT (BEAKER) (test code = 416) 0.07 K/ L 0.04-0.36 BASOPHILS ABSOLUTE COUNT (BEAKER) (test code = 417) 0.02 K/ L 0. 01-0.08 IMMATURE GRANULOCYTES-RELATIVE PERCENT (BEAKER) (test code = 2801) 1 % 0-1 POCT-GLUCOSE [id number] 21:49:00* Test Item Value Reference Range Interpretation Comments POC-GLUCOSE METER (BEAKER) (test code = 1538) 207 mg/dL 70-110 H TESTED AT [address] [address] POCT-GLUCOSE [id number] 17:54:00* Test Item Value Reference Range Interpretation Comments POC-GLUCOSE METER (BEAKER) (test code = 1538) 187 mg/dL 70-110 H TESTED AT [address] [address] POCT-GLUCOSE [id number] 16:12:00* Test Item Value Reference Range Interpretation Comments POC-GLUCOSE METER (BEAKER) (test code = 1538) 120 mg/dL 70-110 H TESTED AT [address] [address] POCT-GLUCOSE [id number] 08:05:00* Test Item Value Reference Range Interpretation Comments POC-GLUCOSE METER (BEAKER) (test code = 1538) 151 mg/dL 70-110 H TESTED AT [facility] [address] [facility] [address] CBC W/PLT COUNT & AUTO [id number] 06:10:00* Test Item Value Reference Range Interpretation Comments WHITE BLOOD CELL COUNT (BEAKER) (test code = 775) 11.7 K/ L 3.5- 10.5 H RED BLOOD CELL COUNT (BEAKER) (test code = 761) 3.20 M/ L 3.93-5 .22 L HEMOGLOBIN (BEAKER) (test code = 410) 8.5 GM/DL 11.2-15.7 L HEMATOCRIT (BEAKER) (test code = 411) 29.9 % 34.1-44.9 L MEAN CORPUSCULAR VOLUME (BEAKER) (test code = 753) 93.4 fL 79. 4-94.8 MEAN CORPUSCULAR HEMOGLOBIN (BEAKER) (test code = 751) 26.6 pg 25.6-32.2 MEAN CORPUSCULAR HEMOGLOBIN CONC (BEAKER) (test code = 752) 28.4 GM/DL 32.2-35.5 L RED CELL DISTRIBUTION WIDTH (BEAKER) (test code = 412) 15.7 % 11.7-14.4 H PLATELET COUNT (BEAKER) (test code = 756) 281 K/CU MM 150-450 MEAN PLATELET VOLUME (BEAKER) (test code = 754) 11.1 fL 9.4-12 .3 NUCLEATED RED BLOOD CELLS (BEAKER) (test code = 413) 0 /100 WBC 0 -0 NEUTROPHILS RELATIVE PERCENT (BEAKER) (test code = 429) 77 % LYMPHOCYTES RELATIVE PERCENT (BEAKER) (test code = 430) 12 % MONOCYTES RELATIVE PERCENT (BEAKER) (test code = 431) 9 % EOSINOPHILS RELATIVE PERCENT (BEAKER) (test code = 432) 1 % BASOPHILS RELATIVE PERCENT (BEAKER) (test code = 437) 0 % NEUTROPHILS ABSOLUTE COUNT (BEAKER) (test code = 670) 9.08 K/ L 1.56-6.13 H LYMPHOCYTES ABSOLUTE COUNT (BEAKER) (test code = 414) 1.36 K/ L 1.18-3.74 MONOCYTES ABSOLUTE COUNT (BEAKER) (test code = 415) 1.10 K/ L 0. 24-0.36 H EOSINOPHILS ABSOLUTE COUNT (BEAKER) (test code = 416) 0.10 K/ L 0.04-0.36 BASOPHILS ABSOLUTE COUNT (BEAKER) (test code = 417) 0.03 K/ L 0. 01-0.08 IMMATURE GRANULOCYTES-RELATIVE PERCENT (BEAKER) (test code = 2801) 1 % 0-1 BASIC METABOLIC [id number] 06:02:00* Test Item Value Reference Range Interpretation Comments SODIUM (BEAKER) (test code = 381) 136 meq/L 136-145 POTASSIUM (BEAKER) (test code = 379) 4.7 meq/L 3.5-5.1 CHLORIDE (BEAKER) (test code = 382) 96 meq/L 98-107 L CO2 (BEAKER) (test code = 355) 29 meq/L 22-29 BLOOD UREA NITROGEN (BEAKER) (test code = 354) 34 mg/dL 7-21 H CREATININE (BEAKER) (test code = 358) 8.51 mg/dL 0.57-1.25 H GLUCOSE RANDOM (BEAKER) (test code = 652) 110 mg/dL 70-105 H CALCIUM (BEAKER) (test code = 697) 9.3 mg/dL 8.4-10.2 EGFR (BEAKER) (test code = 1092) 6 mL/min/1.73 sq m ESTIMATED GFR IS NOT ACCURATE CREATININE CLEARANCE IN PREDICTING GLOMERULAR FILTRATION RATE. ESTIMATED GFR IS NOT APPLICABLE FOR DIALYSIS PATIENTS. POCT-GLUCOSE [id number] 21:11:00* Test Item Value Reference Range Interpretation Comments POC-GLUCOSE METER (BEAKER) (test code = 1538) 126 mg/dL 70-110 H TESTED AT [address] [address] POCT-GLUCOSE [id number] 18:39:00* Test Item Value Reference Range Interpretation Comments POC-GLUCOSE METER (BEAKER) (test code = 1538) 140 mg/dL 70-110 H TESTED AT [address] [address] POCT-GLUCOSE [id number] 13:26:00* Test Item Value Reference Range Interpretation Comments POC-GLUCOSE METER (BEAKER) (test code = 1538) 149 mg/dL 70-110 H TESTED AT [address] [address] POCT-GLUCOSE [id number] 09:21:00* Test Item Value Reference Range Interpretation Comments POC-GLUCOSE METER (BEAKER) (test code = 1538) 155 mg/dL 70-110 H TESTED AT [facility] [address] [place] [address] BASIC METABOLIC [id number] 07:18:00* Test Item Value Reference Range Interpretation Comments SODIUM (BEAKER) (test code = 381) 139 meq/L 136-145 POTASSIUM (BEAKER) (test code = 379) 4.2 meq/L 3.5-5.1 CHLORIDE (BEAKER) (test code = 382) 98 meq/L 98-107 CO2 (BEAKER) (test code = 355) 30 meq/L 22-29 H BLOOD UREA NITROGEN (BEAKER) (test code = 354) 22 mg/dL 7-21 H CREATININE (BEAKER) (test code = 358) 6.54 mg/dL 0.57-1.25 H GLUCOSE RANDOM (BEAKER) (test code = 652) 124 mg/dL 70-105 H CALCIUM (BEAKER) (test code = 697) 8.9 mg/dL 8.4-10.2 EGFR (BEAKER) (test code = 1092) 8 mL/min/1.73 sq m ESTIMATED GFR IS NOT ACCURATE CREATININE CLEARANCE IN PREDICTING GLOMERULAR FILTRATION RATE. ESTIMATED GFR IS NOT APPLICABLE FOR DIALYSIS PATIENTS. PT/[id number] 06:02:00* Test Item Value Reference Range Interpretation Comments PROTIME (BEAKER) (test code = 759) 14.3 seconds 11.7-14.7 INR (BEAKER) (test code = 370) 1.1 <=5.9 PARTIAL THROMBOPLASTIN TIME (BEAKER) (test code = 760) 39.3 seconds 22.5-36.0 H RECOMMENDED COUMADIN/WARFARIN INR THERAPY RANGESSTANDARD DOSE: 2.0 - 3.0 Inclu kaelyn: PROPHYLAXIS for venous thrombosis, systemic embolization; TREATMENT for hermes ous thrombosis and/or pulmonary embolus.HIGH RISK: Target INR is 2.5-3.5 for pat ients with mechanical heart valves.CBC W/PLT COUNT & AUTO [id number] 05:59:00* Test Item Value Reference Range Interpretation Comments WHITE BLOOD CELL COUNT (BEAKER) (test code = 775) 11.0 K/ L 3.5- 10.5 H RED BLOOD CELL COUNT (BEAKER) (test code = 761) 3.45 M/ L 3.93-5 .22 L HEMOGLOBIN (BEAKER) (test code = 410) 8.9 GM/DL 11.2-15.7 L HEMATOCRIT (BEAKER) (test code = 411) 32.7 % 34.1-44.9 L MEAN CORPUSCULAR VOLUME (BEAKER) (test code = 753) 94.8 fL 79. 4-94.8 MEAN CORPUSCULAR HEMOGLOBIN (BEAKER) (test code = 751) 25.8 pg 25.6-32.2 MEAN CORPUSCULAR HEMOGLOBIN CONC (BEAKER) (test code = 752) 27.2 GM/DL 32.2-35.5 L RED CELL DISTRIBUTION WIDTH (BEAKER) (test code = 412) 15.8 % 11.7-14.4 H PLATELET COUNT (BEAKER) (test code = 756) 275 K/CU MM 150-450 MEAN PLATELET VOLUME (BEAKER) (test code = 754) 11.5 fL 9.4-12 .3 NUCLEATED RED BLOOD CELLS (BEAKER) (test code = 413) 0 /100 WBC 0 -0 NEUTROPHILS RELATIVE PERCENT (BEAKER) (test code = 429) 77 % LYMPHOCYTES RELATIVE PERCENT (BEAKER) (test code = 430) 12 % MONOCYTES RELATIVE PERCENT (BEAKER) (test code = 431) 9 % EOSINOPHILS RELATIVE PERCENT (BEAKER) (test code = 432) 1 % BASOPHILS RELATIVE PERCENT (BEAKER) (test code = 437) 0 % NEUTROPHILS ABSOLUTE COUNT (BEAKER) (test code = 670) 8.43 K/ L 1.56-6.13 H LYMPHOCYTES ABSOLUTE COUNT (BEAKER) (test code = 414) 1.32 K/ L 1.18-3.74 MONOCYTES ABSOLUTE COUNT (BEAKER) (test code = 415) 1.01 K/ L 0. 24-0.36 H EOSINOPHILS ABSOLUTE COUNT (BEAKER) (test code = 416) 0.11 K/ L 0.04-0.36 BASOPHILS ABSOLUTE COUNT (BEAKER) (test code = 417) 0.03 K/ L 0. 01-0.08 IMMATURE GRANULOCYTES-RELATIVE PERCENT (BEAKER) (test code = 2801) 1 % 0-1 POCT-GLUCOSE [id number] 22:01:00* Test Item Value Reference Range Interpretation Comments POC-GLUCOSE METER (BEAKER) (test code = 1538) 125 mg/dL 70-110 H TESTED AT [address] [address] POCT-GLUCOSE [id number] 19:06:00* Test Item Value Reference Range Interpretation Comments POC-GLUCOSE METER (BEAKER) (test code = 1538) 153 mg/dL 70-110 H TESTED AT [address] [address] POCT-GLUCOSE [id number] 17:14:00* Test Item Value Reference Range Interpretation Comments POC-GLUCOSE METER (BEAKER) (test code = 1538) 163 mg/dL 70-110 H TESTED AT [address] [address] POTASSIUM-STAT [id number] 13:39:00* Test Item Value Reference Range Interpretation Comments POTASSIUM (BEAKER) (test code = 379) 3.7 meq/L 3.6-5.5 IRON, TIBC, % SAT. (WITHOUT FERRITIN)2018-09-10 11:12:00* Test Item Value Reference Range Interpretation Comments IRON (BEAKER) (test code = 547) 20.0 ug/dL 40.0-160.0 L TOTAL IRON BINDING CAPACITY (BEAKER) (test code = 769) 150 ug/dL 250-450 L IRON % SATURATION (2) (BEAKER) (test code = 2590) 13 % 20-5 5 L [id number] 11:06:00* Test Item Value Reference Range Interpretation Comments PHOSPHORUS (BEAKER) (test code = 604) 2.0 mg/dL 2.3-4.7 L [id number] 03:18:00* Test Item Value Reference Range Interpretation Comments PROTIME (BEAKER) (test code = 759) 14.7 seconds 11.7-14.7 INR (BEAKER) (test code = 370) 1.1 <=5.9 PARTIAL THROMBOPLASTIN TIME (BEAKER) (test code = 760) 41.0 seconds 22.5-36.0 H RECOMMENDED COUMADIN/WARFARIN INR THERAPY RANGESSTANDARD DOSE: 2.0 - 3.0 Inclu kaelyn: PROPHYLAXIS for venous thrombosis, systemic embolization; TREATMENT for hermes ous thrombosis and/or pulmonary embolus.HIGH RISK: Target INR is 2.5-3.5 for pat ients with mechanical heart valves.HEPATITIS B SURFACE [id number] 00:56:00* Test Item Value Reference Range Interpretation Comments HEPATITIS B SURFACE ANTIGEN (2) (BEAKER) (test code = 2585) Nonreactive Nonreactive HEPATIC FUNCTION [id number] 00:34:00* Test Item Value Reference Range Interpretation Comments TOTAL PROTEIN (BEAKER) (test code = 770) 7.0 gm/dL 6.0-8.3 ALBUMIN (BEAKER) (test code = 1145) 3.1 g/dL 3.5-5.0 L BILIRUBIN TOTAL (BEAKER) (test code = 377) 0.3 mg/dL 0.2-1.2 BILIRUBIN DIRECT (BEAKER) (test code = 706) 0.1 mg/dL 0.1-0.5 ALKALINE PHOSPHATASE (BEAKER) (test code = 346) 64 U/L 40-150 AST (SGOT) (BEAKER) (test code = 353) 7 U/L 5-34 ALT (SGPT) (BEAKER) (test code = 347) < U/L 6-55 L BASIC METABOLIC [id number] 00:34:00* Test Item Value Reference Range Interpretation Comments SODIUM (BEAKER) (test code = 381) 135 meq/L 136-145 L POTASSIUM (BEAKER) (test code = 379) 3.8 meq/L 3.5-5.1 CHLORIDE (BEAKER) (test code = 382) 94 meq/L 98-107 L CO2 (BEAKER) (test code = 355) 29 meq/L 22-29 BLOOD UREA NITROGEN (BEAKER) (test code = 354) 37 mg/dL 7-21 H CREATININE (BEAKER) (test code = 358) 9.10 mg/dL 0.57-1.25 H GLUCOSE RANDOM (BEAKER) (test code = 652) 215 mg/dL 70-105 H CALCIUM (BEAKER) (test code = 697) 8.2 mg/dL 8.4-10.2 L EGFR (BEAKER) (test code = 1092) 5 mL/min/1.73 sq m ESTIMATED GFR IS NOT ACCURATE CREATININE CLEARANCE IN PREDICTING GLOMERULAR FILTRATION RATE. ESTIMATED GFR IS NOT APPLICABLE FOR DIALYSIS PATIENTS. [id number] 00:30:00* Test Item Value Reference Range Interpretation Comments MAGNESIUM (BEAKER) (test code = 627) 1.6 mg/dL 1.6-2.6 CBC W/PLT COUNT & AUTO [id number] 00:04:00* Test Item Value Reference Range Interpretation Comments WHITE BLOOD CELL COUNT (BEAKER) (test code = 775) 8.4 K/ L 3.5- 10.5 RED BLOOD CELL COUNT (BEAKER) (test code = 761) 3.01 M/ L 3.93-5 .22 L HEMOGLOBIN (BEAKER) (test code = 410) 7.9 GM/DL 11.2-15.7 L HEMATOCRIT (BEAKER) (test code = 411) 27.7 % 34.1-44.9 L MEAN CORPUSCULAR VOLUME (BEAKER) (test code = 753) 92.0 fL 79. 4-94.8 MEAN CORPUSCULAR HEMOGLOBIN (BEAKER) (test code = 751) 26.2 pg 25.6-32.2 MEAN CORPUSCULAR HEMOGLOBIN CONC (BEAKER) (test code = 752) 28.5 GM/DL 32.2-35.5 L RED CELL DISTRIBUTION WIDTH (BEAKER) (test code = 412) 15.6 % 11.7-14.4 H PLATELET COUNT (BEAKER) (test code = 756) 228 K/CU MM 150-450 MEAN PLATELET VOLUME (BEAKER) (test code = 754) 11.6 fL 9.4-12 .3 NUCLEATED RED BLOOD CELLS (BEAKER) (test code = 413) 0 /100 WBC 0 -0 NEUTROPHILS RELATIVE PERCENT (BEAKER) (test code = 429) 76 % LYMPHOCYTES RELATIVE PERCENT (BEAKER) (test code = 430) 14 % MONOCYTES RELATIVE PERCENT (BEAKER) (test code = 431) 8 % EOSINOPHILS RELATIVE PERCENT (BEAKER) (test code = 432) 1 % BASOPHILS RELATIVE PERCENT (BEAKER) (test code = 437) 0 % NEUTROPHILS ABSOLUTE COUNT (BEAKER) (test code = 670) 6.39 K/ L 1.56-6.13 H LYMPHOCYTES ABSOLUTE COUNT (BEAKER) (test code = 414) 1.21 K/ L 1.18-3.74 MONOCYTES ABSOLUTE COUNT (BEAKER) (test code = 415) 0.64 K/ L 0. 24-0.36 H EOSINOPHILS ABSOLUTE COUNT (BEAKER) (test code = 416) 0.09 K/ L 0.04-0.36 BASOPHILS ABSOLUTE COUNT (BEAKER) (test code = 417) 0.02 K/ L 0. 01-0.08 IMMATURE GRANULOCYTES-RELATIVE PERCENT (BEAKER) (test code = 2801) 1 % 0-1 POCT-GLUCOSE [id number] 23:14:00* Test Item Value Reference Range Interpretation Comments POC-GLUCOSE METER (BEAKER) (test code = 1538) 248 mg/dL 70-110 H TESTED AT [facility] [address] [facility] [address] Sodium [id number] 01:09:00* Test Item Value Reference Range Interpretation Comments Sodium Level (test code = 2951-2) 135 136-145 [facility] [id number] 01:09:00* Test Item Value Reference Range Interpretation Comments Potassium Level (test code = 2823-3) 4.8 3.5-5.1 [facility]Ch[facility] [id number] 01:09:00* Test Item Value Reference Range Interpretation Comments Chloride Level (test code = 2075-0) 94 98-107 L [facility] CenterCarbon Dioxide [id number] 01:09:00* Test Item Value Reference Range Interpretation Comments Carbon Dioxide Level (test code = 2028-9) 19 22-29 L [facility] CenterAnion [id number] 01:09:00* Test Item Value Reference Range Interpretation Comments Anion Gap (test code = 69166-7) 26.8 8-16 H [facility] CenterBlood Urea [id number] 01:09:00* Test Item Value Reference Range Interpretation Comments Blood Urea Nitrogen (test code = 3094-0) 91 7-26 H [facility] CenterCreatinine2019-02-06 01:09:00* Test Item Value Reference Range Interpretation Comments Creatinine (test code = 2160-0) 16.71 0.57-1.11 H [facility] CenterBUN/Creatinine [id number] 01:09:00* Test Item Value Reference Range Interpretation Comments BUN/Creatinine Ratio (test code = 3097-3) 5 6-25 L [facility] CenterEstimat Glomerular Filtration Rate 2018-08-21 01:09:00* Test Item Value Reference Range Interpretation Comments Estimat Glomerular Filtration Rate (test code = 403298444) 3 >60 L Ranges were taken from the National Kidney Disease Education Program and the [facility] literature.Reference ranges:60 or greater: Ssdmwy98-51 ( for 3 consecutive months): Chronic kidney disease 15 or less: Kidney failureKnapp Medical CenterGlucose [id number] 01:09:00* Test Item Value Reference Range Interpretation Comments Glucose Level (test code = BPG3508) 99 74-118 [facility] CenterCalcium [id number] 01:09:00* Test Item Value Reference Range Interpretation Comments Calcium Level (test code = 00370-4) 7.8 8.4-10.2 L [facility] CenterTISSUE [id number] 15:50:00Surgical Pathology Report Case: [id number] Authorizing Provider: Goyo Haji, Collected: 07/25/2018 Lucia KHANNA Ordering Location: [facility] PERIOPER[facility] Received: 07/25/2018 1439 SERVICES Pathologist: Cristobal Triana MD Specimen: Toe, Left, SECOND TOE TOE, LEFT 2ND, AMPUTATION:- SKIN, SOFT TISSUE, AND BONE MARGINS, VIABLE AND NEGATIVE FOR ACUTE INFLAMMATION- SKIN WITH REACTIVE CHANGES- UNDERLYING BONE WITH CHRONIC OSTEOMYELITIS Signing Pathologist Direct Phone Line: [phone] signed by Luis Triana MD on 07/30/2018 at 3:50 [id number], [id number] of toePer [facility]: this is a 73 year old woman with diabetes a nd peripheral artery disease with left second toe gangrene. Operative finding of gangrene without infection.Second left toeThe specimen is received in a formali n-filled container labeled with the patient's information and labeled "left seco nd toe" and consists of a second amputated digit measuring 7 x 2 x 1 cm. The ski n has a distal area that is gangrenous measuring 2.5 x 1 cm. The area is located 1.5 cm from the skin margin.Section code: A1, skin margin en face; A2, bone mar gin en face submitted for decalcification; A3, cross section of necrosis and und erlying bone submitted for decal. CG/ew Performed.POCT-GLUCOSE [id number] 13:58:00* Test Item Value Reference Range Interpretation Comments POC-GLUCOSE METER (BEAKER) (test code = 1538) 166 mg/dL 70-110 H TESTED AT [address] [address] POCT-GLUCOSE [id number] 09:51:00* Test Item Value Reference Range Interpretation Comments POC-GLUCOSE METER (BEAKER) (test code = 1538) 127 mg/dL 70-110 H TESTED AT [address] [address] POCT-GLUCOSE [id number] 21:38:00* Test Item Value Reference Range Interpretation Comments POC-GLUCOSE METER (BEAKER) (test code = 1538) 131 mg/dL 70-110 H TESTED AT [place] [id number] [facility] [address] POCT-GLUCOSE [id number] 18:52:00* Test Item Value Reference Range Interpretation Comments POC-GLUCOSE METER (BEAKER) (test code = 1538) 138 mg/dL 70-110 H TESTED AT [address] [address] POCT-GLUCOSE [id number] 14:31:00* Test Item Value Reference Range Interpretation Comments POC-GLUCOSE METER (BEAKER) (test code = 1538) 141 mg/dL 70-110 H TESTED AT [address] [address] BASIC METABOLIC [id number] 08:40:00* Test Item Value Reference Range Interpretation Comments SODIUM (BEAKER) (test code = 381) 135 meq/L 136-145 L POTASSIUM (BEAKER) (test code = 379) 5.0 meq/L 3.5-5.1 CHLORIDE (BEAKER) (test code = 382) 99 meq/L 98-107 CO2 (BEAKER) (test code = 355) 27 meq/L 22-29 BLOOD UREA NITROGEN (BEAKER) (test code = 354) 46 mg/dL 7-21 H CREATININE (BEAKER) (test code = 358) 9.49 mg/dL 0.57-1.25 H GLUCOSE RANDOM (BEAKER) (test code = 652) 108 mg/dL 70-105 H CALCIUM (BEAKER) (test code = 697) 8.2 mg/dL 8.4-10.2 L EGFR (BEAKER) (test code = 1092) 5 mL/min/1.73 sq m ESTIMATED GFR IS NOT ACCURATE CREATININE CLEARANCE IN PREDICTING GLOMERULAR FILTRATION RATE. ESTIMATED GFR IS NOT APPLICABLE FOR DIALYSIS PATIENTS. POCT-GLUCOSE [id number] 23:05:00* Test Item Value Reference Range Interpretation Comments POC-GLUCOSE METER (BEAKER) (test code = 1538) 147 mg/dL 70-110 H TESTED AT [address] [address] POCT-GLUCOSE [id number] 18:19:00* Test Item Value Reference Range Interpretation Comments POC-GLUCOSE METER (BEAKER) (test code = 1538) 215 mg/dL 70-110 H TESTED AT [address] [address] POCT-GLUCOSE [id number] 13:40:00* Test Item Value Reference Range Interpretation Comments POC-GLUCOSE METER (BEAKER) (test code = 1538) 139 mg/dL 70-110 H TESTED AT [address] [address] POCT-GLUCOSE [id number] 08:53:00* Test Item Value Reference Range Interpretation Comments POC-GLUCOSE METER (BEAKER) (test code = 1538) 130 mg/dL 70-110 H TESTED AT [address] [address] POCT-GLUCOSE [id number] 23:50:00* Test Item Value Reference Range Interpretation Comments POC-GLUCOSE METER (BEAKER) (test code = 1538) 239 mg/dL 70-110 H TESTED AT [address] [address] PLATELET AGGREGATION: FUNCTION [id number] 18:58:00* Test Item Value Reference Range Interpretation Comments WEAK ADP RESULT(BEAKER) (test code = 2135) 37 % 60-91 L PLATELET FUNCTION SCREEN INTERP (BEAKER) (test code = 2173) 0-39% indicates marked platelet dysfunction [id number] (BEAKER) (test code = 2622) Sonal Vilchis MD (electronic signature) PLATELET COUNT AGG (BEAKER) (test code = 2656) 235 K/CU MM 150-430 Platelet Function Screen results may be falsely low with platelet counts< 100,000/cu mm.[id number] 16:38:00* Test Item Value Reference Range Interpretation Comments PHOSPHORUS (BEAKER) (test code = 604) 5.5 mg/dL 2.3-4.7 H POCT-GLUCOSE [id number] 12:37:00* Test Item Value Reference Range Interpretation Comments POC-GLUCOSE METER (BEAKER) (test code = 1538) 112 mg/dL 70-110 H TESTED AT [address] [address] POCT-GLUCOSE [id number] 08:34:00* Test Item Value Reference Range Interpretation Comments POC-GLUCOSE METER (BEAKER) (test code = 1538) 157 mg/dL 70-110 H TESTED AT [address] [address] BASIC METABOLIC [id number] 04:14:00* Test Item Value Reference Range Interpretation Comments SODIUM (BEAKER) (test code = 381) 138 meq/L 136-145 POTASSIUM (BEAKER) (test code = 379) 4.7 meq/L 3.5-5.1 CHLORIDE (BEAKER) (test code = 382) 99 meq/L 98-107 CO2 (BEAKER) (test code = 355) 26 meq/L 22-29 BLOOD UREA NITROGEN (BEAKER) (test code = 354) 53 mg/dL 7-21 H CREATININE (BEAKER) (test code = 358) 9.80 mg/dL 0.57-1.25 H GLUCOSE RANDOM (BEAKER) (test code = 652) 160 mg/dL 70-105 H CALCIUM (BEAKER) (test code = 697) 8.3 mg/dL 8.4-10.2 L EGFR (BEAKER) (test code = 1092) 5 mL/min/1.73 sq m ESTIMATED GFR IS NOT ACCURATE CREATININE CLEARANCE IN PREDICTING GLOMERULAR FILTRATION RATE. ESTIMATED GFR IS NOT APPLICABLE FOR DIALYSIS PATIENTS. CBC W/PLT COUNT & AUTO [id number] 03:57:00* Test Item Value Reference Range Interpretation Comments WHITE BLOOD CELL COUNT (BEAKER) (test code = 775) 5.1 K/ L 3.5- 10.5 RED BLOOD CELL COUNT (BEAKER) (test code = 761) 3.92 M/ L 3.93-5 .22 L HEMOGLOBIN (BEAKER) (test code = 410) 10.6 GM/DL 11.2-15.7 L HEMATOCRIT (BEAKER) (test code = 411) 35.9 % 34.1-44.9 MEAN CORPUSCULAR VOLUME (BEAKER) (test code = 753) 91.6 fL 79. 4-94.8 MEAN CORPUSCULAR HEMOGLOBIN (BEAKER) (test code = 751) 27.0 pg 25.6-32.2 MEAN CORPUSCULAR HEMOGLOBIN CONC (BEAKER) (test code = 752) 29.5 GM/DL 32.2-35.5 L RED CELL DISTRIBUTION WIDTH (BEAKER) (test code = 412) 15.3 % 11.7-14.4 H PLATELET COUNT (BEAKER) (test code = 756) 235 K/CU MM 150-450 MEAN PLATELET VOLUME (BEAKER) (test code = 754) 11.9 fL 9.4-12 .3 NUCLEATED RED BLOOD CELLS (BEAKER) (test code = 413) 0 /100 WBC 0 -0 NEUTROPHILS RELATIVE PERCENT (BEAKER) (test code = 429) 71 % LYMPHOCYTES RELATIVE PERCENT (BEAKER) (test code = 430) 18 % MONOCYTES RELATIVE PERCENT (BEAKER) (test code = 431) 8 % EOSINOPHILS RELATIVE PERCENT (BEAKER) (test code = 432) 2 % BASOPHILS RELATIVE PERCENT (BEAKER) (test code = 437) 0 % NEUTROPHILS ABSOLUTE COUNT (BEAKER) (test code = 670) 3.66 K/ L 1.56-6.13 LYMPHOCYTES ABSOLUTE COUNT (BEAKER) (test code = 414) 0.90 K/ L 1.18-3.74 L MONOCYTES ABSOLUTE COUNT (BEAKER) (test code = 415) 0.41 K/ L 0. 24-0.36 H EOSINOPHILS ABSOLUTE COUNT (BEAKER) (test code = 416) 0.12 K/ L 0.04-0.36 BASOPHILS ABSOLUTE COUNT (BEAKER) (test code = 417) 0.02 K/ L 0. 01-0.08 IMMATURE GRANULOCYTES-RELATIVE PERCENT (BEAKER) (test code = 2801) 0 % 0-1 POCT-GLUCOSE [id number] 21:24:00* Test Item Value Reference Range Interpretation Comments POC-GLUCOSE METER (BEAKER) (test code = 1538) 159 mg/dL 70-110 H TESTED AT [address] [address] [id number] 19:36:00* Test Item Value Reference Range Interpretation Comments ACTIVATED CLOTTING TIME (BEAKER) (test code = 441) 136 sec TESTED AT [address] [address] POCT-GLUCOSE [id number] 19:02:00* Test Item Value Reference Range Interpretation Comments POC-GLUCOSE METER (BEAKER) (test code = 1538) 180 mg/dL 70-110 H TESTED AT [address] [address] [id number] 17:56:00* Test Item Value Reference Range Interpretation Comments ACTIVATED CLOTTING TIME (BEAKER) (test code = 441) 142 sec TESTED AT [address] [address] [id number] 16:48:00* Test Item Value Reference Range Interpretation Comments ACTIVATED CLOTTING TIME (BEAKER) (test code = 441) 153 sec TESTED AT [address] [address] [id number] 14:49:00* Test Item Value Reference Range Interpretation Comments ACTIVATED CLOTTING TIME (BEAKER) (test code = 441) 180 sec TESTED AT [address] [address] POCT-GLUCOSE [id number] 13:30:00* Test Item Value Reference Range Interpretation Comments POC-GLUCOSE METER (BEAKER) (test code = 1538) 132 mg/dL 70-110 H TESTED AT [address] [address] [id number] 10:20:00* Test Item Value Reference Range Interpretation Comments ACTIVATED CLOTTING TIME (BEAKER) (test code = 441) 285 sec TESTED AT [address] [address] POCT-GLUCOSE [id number] 06:44:00* Test Item Value Reference Range Interpretation Comments POC-GLUCOSE METER (BEAKER) (test code = 1538) 169 mg/dL 70-110 H TESTED AT [facility] [address] [facility] [address] POCT-GLUCOSE [id number] 21:29:00* Test Item Value Reference Range Interpretation Comments POC-GLUCOSE METER (BEAKER) (test code = 1538) 242 mg/dL 70-110 H TESTED AT [facility] [address] [facility] [address] BASIC METABOLIC [id number] 16:46:00* Test Item Value Reference Range Interpretation Comments SODIUM (BEAKER) (test code = 381) 137 meq/L 136-145 POTASSIUM (BEAKER) (test code = 379) 4.6 meq/L 3.5-5.1 CHLORIDE (BEAKER) (test code = 382) 97 meq/L 98-107 L CO2 (BEAKER) (test code = 355) 25 meq/L 22-29 BLOOD UREA NITROGEN (BEAKER) (test code = 354) 63 mg/dL 7-21 H CREATININE (BEAKER) (test code = 358) 11.24 mg/dL 0.57-1.25 H GLUCOSE RANDOM (BEAKER) (test code = 652) 179 mg/dL 70-105 H CALCIUM (BEAKER) (test code = 697) 8.2 mg/dL 8.4-10.2 L EGFR (BEAKER) (test code = 1092) 4 mL/min/1.73 sq m ESTIMATED GFR IS NOT ACCURATE CREATININE CLEARANCE IN PREDICTING GLOMERULAR FILTRATION RATE. ESTIMATED GFR IS NOT APPLICABLE FOR DIALYSIS PATIENTS. [id number] 16:45:00* Test Item Value Reference Range Interpretation Comments PHOSPHORUS (BEAKER) (test code = 604) 5.5 mg/dL 2.3-4.7 H CBC W/PLT COUNT & AUTO [id number] 16:24:00* Test Item Value Reference Range Interpretation Comments WHITE BLOOD CELL COUNT (BEAKER) (test code = 775) 5.1 K/ L 3.5- 10.5 RED BLOOD CELL COUNT (BEAKER) (test code = 761) 3.86 M/ L 3.93-5 .22 L HEMOGLOBIN (BEAKER) (test code = 410) 10.4 GM/DL 11.2-15.7 L HEMATOCRIT (BEAKER) (test code = 411) 34.8 % 34.1-44.9 MEAN CORPUSCULAR VOLUME (BEAKER) (test code = 753) 90.2 fL 79. 4-94.8 MEAN CORPUSCULAR HEMOGLOBIN (BEAKER) (test code = 751) 26.9 pg 25.6-32.2 MEAN CORPUSCULAR HEMOGLOBIN CONC (BEAKER) (test code = 752) 29.9 GM/DL 32.2-35.5 L RED CELL DISTRIBUTION WIDTH (BEAKER) (test code = 412) 15.0 % 11.7-14.4 H PLATELET COUNT (BEAKER) (test code = 756) 207 K/CU MM 150-450 MEAN PLATELET VOLUME (BEAKER) (test code = 754) 11.7 fL 9.4-12 .3 NUCLEATED RED BLOOD CELLS (BEAKER) (test code = 413) 0 /100 WBC 0 -0 NEUTROPHILS RELATIVE PERCENT (BEAKER) (test code = 429) 66 % LYMPHOCYTES RELATIVE PERCENT (BEAKER) (test code = 430) 21 % MONOCYTES RELATIVE PERCENT (BEAKER) (test code = 431) 11 % EOSINOPHILS RELATIVE PERCENT (BEAKER) (test code = 432) 2 % BASOPHILS RELATIVE PERCENT (BEAKER) (test code = 437) 0 % NEUTROPHILS ABSOLUTE COUNT (BEAKER) (test code = 670) 3.37 K/ L 1.56-6.13 LYMPHOCYTES ABSOLUTE COUNT (BEAKER) (test code = 414) 1.06 K/ L 1.18-3.74 L MONOCYTES ABSOLUTE COUNT (BEAKER) (test code = 415) 0.55 K/ L 0. 24-0.36 H EOSINOPHILS ABSOLUTE COUNT (BEAKER) (test code = 416) 0.08 K/ L 0.04-0.36 BASOPHILS ABSOLUTE COUNT (BEAKER) (test code = 417) 0.01 K/ L 0. 01-0.08 IMMATURE GRANULOCYTES-RELATIVE PERCENT (BEAKER) (test code = 2801) 0 % 0-1 POCT-GLUCOSE [id number] 11:44:00* Test Item Value Reference Range Interpretation Comments POC-GLUCOSE METER (BEAKER) (test code = 1538) 186 mg/dL 70-110 H TESTED AT [facility] [address] [facility] [address] POCT-GLUCOSE [id number] 21:08:00* Test Item Value Reference Range Interpretation Comments POC-GLUCOSE METER (BEAKER) (test code = 1538) 172 mg/dL 70-110 H TESTED AT [address] [address] C. DIFFICILE GDH [id number] 17:14:00* Test Item Value Reference Range Interpretation Comments CDT TOXIN (test code = 2507704625) Negative Negative CDT GDH ANTIGEN (test code = 1324353879) Negative Negative No indication of Clostridium difficile infection and no colonization. Discontinue enteric isolation and therapy. Testing performed by [employer] Rapid Cassette Assay. For GDH, published sensitivity of the assay is 98.7% compared to cytotoxicity testing. For Toxin AB, published sensitivity is 87.8% and specificity 99.4% compared to cytotoxicity testing.Ve rification of kit performance was done by the [facility] Microbiology Lab prior to cl inical use.POCT-GLUCOSE [id number] 16:12:00* Test Item Value Reference Range Interpretation Comments POC-GLUCOSE METER (BEAKER) (test code = 1538) 199 mg/dL 70-110 H TESTED AT [address] [address] POCT-GLUCOSE [id number] 11:33:00* Test Item Value Reference Range Interpretation Comments POC-GLUCOSE METER (BEAKER) (test code = 1538) 150 mg/dL 70-110 H TESTED AT [address] [address] POCT-GLUCOSE [id number] 08:02:00* Test Item Value Reference Range Interpretation Comments POC-GLUCOSE METER (BEAKER) (test code = 1538) 190 mg/dL 70-110 H TESTED AT [address] [address] POCT-GLUCOSE [id number] 21:37:00* Test Item Value Reference Range Interpretation Comments POC-GLUCOSE METER (BEAKER) (test code = 1538) 243 mg/dL 70-110 H TESTED AT [address] [address] POCT-GLUCOSE [id number] 16:51:00* Test Item Value Reference Range Interpretation Comments POC-GLUCOSE METER (BEAKER) (test code = 1538) 136 mg/dL 70-110 H TESTED AT [address] [address] HEPATITIS B SURFACE [id number] 15:42:00* Test Item Value Reference Range Interpretation Comments HEPATITIS B SURFACE ANTIGEN (2) (BEAKER) (test code = 2585) Nonreactive Nonreactive For chronic HD patients, draw HBsAg with each admission then every 30 days. [id number] 15:22:00* Test Item Value Reference Range Interpretation Comments PHOSPHORUS (BEAKER) (test code = 604) 8.6 mg/dL 2.3-4.7 H POCT-GLUCOSE [id number] 11:35:00* Test Item Value Reference Range Interpretation Comments POC-GLUCOSE METER (BEAKER) (test code = 1538) 98 mg/dL 70-110 TESTED AT [facility] [address] [facility] [address] POCT-GLUCOSE [id number] 07:55:00* Test Item Value Reference Range Interpretation Comments POC-GLUCOSE METER (BEAKER) (test code = 1538) 250 mg/dL 70-110 H TESTED AT [address] [address] BASIC METABOLIC [id number] 07:02:00* Test Item Value Reference Range Interpretation Comments SODIUM (BEAKER) (test code = 381) 134 meq/L 136-145 L POTASSIUM (BEAKER) (test code = 379) 4.3 meq/L 3.5-5.1 CHLORIDE (BEAKER) (test code = 382) 98 meq/L 98-107 CO2 (BEAKER) (test code = 355) 19 meq/L 22-29 L BLOOD UREA NITROGEN (BEAKER) (test code = 354) 89 mg/dL 7-21 H CREATININE (BEAKER) (test code = 358) 15.18 mg/dL 0.57-1.25 H GLUCOSE RANDOM (BEAKER) (test code = 652) 195 mg/dL 70-105 H CALCIUM (BEAKER) (test code = 697) 6.5 mg/dL 8.4-10.2 L EGFR (BEAKER) (test code = 1092) 3 mL/min/1.73 sq m ESTIMATED GFR IS NOT ACCURATE CREATININE CLEARANCE IN PREDICTING GLOMERULAR FILTRATION RATE. ESTIMATED GFR IS NOT APPLICABLE FOR DIALYSIS PATIENTS. CBC W/PLT COUNT & AUTO [id number] 06:23:00* Test Item Value Reference Range Interpretation Comments WHITE BLOOD CELL COUNT (BEAKER) (test code = 775) 6.2 K/ L 3.5- 10.5 RED BLOOD CELL COUNT (BEAKER) (test code = 761) 3.83 M/ L 3.93-5 .22 L HEMOGLOBIN (BEAKER) (test code = 410) 10.4 GM/DL 11.2-15.7 L HEMATOCRIT (BEAKER) (test code = 411) 34.6 % 34.1-44.9 MEAN CORPUSCULAR VOLUME (BEAKER) (test code = 753) 90.3 fL 79. 4-94.8 MEAN CORPUSCULAR HEMOGLOBIN (BEAKER) (test code = 751) 27.2 pg 25.6-32.2 MEAN CORPUSCULAR HEMOGLOBIN CONC (BEAKER) (test code = 752) 30.1 GM/DL 32.2-35.5 L RED CELL DISTRIBUTION WIDTH (BEAKER) (test code = 412) 15.4 % 11.7-14.4 H PLATELET COUNT (BEAKER) (test code = 756) 184 K/CU MM 150-450 MEAN PLATELET VOLUME (BEAKER) (test code = 754) 11.9 fL 9.4-12 .3 NUCLEATED RED BLOOD CELLS (BEAKER) (test code = 413) 0 /100 WBC 0 -0 NEUTROPHILS RELATIVE PERCENT (BEAKER) (test code = 429) 72 % LYMPHOCYTES RELATIVE PERCENT (BEAKER) (test code = 430) 15 % MONOCYTES RELATIVE PERCENT (BEAKER) (test code = 431) 12 % EOSINOPHILS RELATIVE PERCENT (BEAKER) (test code = 432) 1 % BASOPHILS RELATIVE PERCENT (BEAKER) (test code = 437) 0 % NEUTROPHILS ABSOLUTE COUNT (BEAKER) (test code = 670) 4.44 K/ L 1.56-6.13 LYMPHOCYTES ABSOLUTE COUNT (BEAKER) (test code = 414) 0.95 K/ L 1.18-3.74 L MONOCYTES ABSOLUTE COUNT (BEAKER) (test code = 415) 0.72 K/ L 0. 24-0.36 H EOSINOPHILS ABSOLUTE COUNT (BEAKER) (test code = 416) 0.05 K/ L 0.04-0.36 BASOPHILS ABSOLUTE COUNT (BEAKER) (test code = 417) 0.02 K/ L 0. 01-0.08 IMMATURE GRANULOCYTES-RELATIVE PERCENT (BEAKER) (test code = 2801) 0 % 0-1 POCT-GLUCOSE [id number] 20:32:00* Test Item Value Reference Range Interpretation Comments POC-GLUCOSE METER (BEAKER) (test code = 1538) 205 mg/dL 70-110 H TESTED AT [facility] [address] [facility] [address] Phosphorus [id number] 15:13:00* Test Item Value Reference Range Interpretation Comments Phosphorus Level (test code = ZEW5674) 8.7 2.3-4.7 [facility] [id number] 15:13:00* Test Item Value Reference Range Interpretation Comments Magnesium Level (test code = 47835-1) 2.4 1.3-2.1 H [facility]Total [id number] 15:13:00* Test Item Value Reference Range Interpretation Comments Total Bilirubin (test code = 1975-2) 0.5 0.2-1.2 [facility] CenterAspartate Amino Transf (AST/SGOT) 2018-05-20 15:13:00* Test Item Value Reference Range Interpretation Comments Aspartate Amino Transf (AST/SGOT) (test code = Aspartate Amino Transf (AST/SGOT)) 22 5-34 [facility] CenterAlanine Aminotransferase (ALT/SGPT) 2018-05-20 15:13:00* Test Item Value Reference Range Interpretation Comments Alanine Aminotransferase (ALT/SGPT) (test code = 1742-6) 9 0-55 [facility] CenterTotal [id number] 15:13:00* Test Item Value Reference Range Interpretation Comments Total Protein (test code = 2885-2) 8.0 6.5-8.1 [facility] CenterAlbumin2018-11-[facility] 15:13:00* Test Item Value Reference Range Interpretation Comments Albumin (test code = 1751-7) 3.3 3.5-5.0 L [facility] CenterGlobulin2018-11-05 15:13:00* Test Item Value Reference Range Interpretation Comments Globulin (test code = 28591-7) 4.7 2.3-3.5 H [facility] CenterAlbumin/Globulin [id number] 15:13:00 * Test Item Value Reference Range Interpretation Comments Albumin/Globulin Ratio (test code = 1759-0) 0.7 0.8-2.0 L [facility] CenterAlkaline [id number] 15:13:00* Test Item Value Reference Range Interpretation Comments Alkaline Phosphatase (test code = 6768-6) 88 40-150 [facility] CenterPhosphorus [id number] 15:13:00* Test Item Value Reference Range Interpretation Comments Phosphorus Level (test code = WOD6513) 8.7 2.3-4.7 H [facility] CenterPhosphorus [id number] 15:13:00* Test Item Value Reference Range Interpretation Comments Phosphorus Level (test code = TPT0292) 8.7 2.3-4.7 H [facility] CenterPhosphorus [id number] 15:13:00* Test Item Value Reference Range Interpretation Comments Phosphorus Level (test code = DRJ6298) 8.7 2.3-4.7 H [facility] CenterWhite Blood [id number] 14:47:00* Test Item Value Reference Range Interpretation Comments White Blood Count (test code = 6690-2) 5.48 4.8-10.8 [facility] CenterRed Blood [id number] 14:47:00* Test Item Value Reference Range Interpretation Comments Red Blood Count (test code = 789-8) 4.06 3.6-5.1 [facility] CenterHemoglobin2018-11-05 14:47:00* Test Item Value Reference Range Interpretation Comments Hemoglobin (test code = 51977-0) 11.5 12.0-16.0 L [facility] CenterHematocrit2018-11-05 14:47:00* Test Item Value Reference Range Interpretation Comments Hematocrit (test code = 4544-3) 37.4 34.2-44.1 [facility] CenterMean Corpuscular [id number] 14:47:00* Test Item Value Reference Range Interpretation Comments Mean Corpuscular Volume (test code = 787-2) 92.1 81-99 [facility]Mean Corpuscular [id number] 14:47:00* Test Item Value Reference Range Interpretation Comments Mean Corpuscular Hemoglobin (test code = 785-6) 28.3 28-32 [facility] CenterMean Corpuscular Hemoglobin Concent 2018-05-20 14:47:00* Test Item Value Reference Range Interpretation Comments Mean Corpuscular Hemoglobin Concent (test code = 786-4) 30.7 31-35 L [facility] CenterRed Cell Distribution [id number] 14:47:00* Test Item Value Reference Range Interpretation Comments Red Cell Distribution Width (test code = 67076-0) 14.6 11.7 -14.4 H [facility] CenterPlatelet [id number] 14:47:00* Test Item Value Reference Range Interpretation Comments Platelet Count (test code = 777-3) 185 140-360 [facility] CenterNeutrophils (%) (Auto)2018-05-20 14:47:00 * Test Item Value Reference Range Interpretation Comments Neutrophils (%) (Auto) (test code = 12885-0) 75.0 38.7-80.0 [facility] CenterLymphocytes (%) (Auto)2018-05-20 14:47:00 * Test Item Value Reference Range Interpretation Comments Lymphocytes (%) (Auto) (test code = 736-9) 15.1 18.0-39.1 L [facility] CenterMonocytes (%) (Auto)2018-05-20 14:47:00* Test Item Value Reference Range Interpretation Comments Monocytes (%) (Auto) (test code = 5905-5) 8.8 4.4-11.3 [facility] CenterEosinophils (%) (Auto)2018-05-20 14:47:00 * Test Item Value Reference Range Interpretation Comments Eosinophils (%) (Auto) (test code = 713-8) 0.7 0.0-6.0 [facility] CenterBasophils (%) (Auto)2018-05-20 14:47:00* Test Item Value Reference Range Interpretation Comments Basophils (%) (Auto) (test code = 706-2) 0.2 0.0-1.0 [facility] CenterIM GRANULOCYTES %2018-05-20 14:47:00* Test Item Value Reference Range Interpretation Comments IM GRANULOCYTES % (test code = IM GRANULOCYTES %) 0.2 0.0- 1.0 [facility] CenterNeutrophils # (Auto)2018-05-20 14:47:00* Test Item Value Reference Range Interpretation Comments Neutrophils # (Auto) (test code = 751-8) 4.1 2.1-6.9 [facility] CenterLymphocytes # (Auto)2018-05-20 14:47:00* Test Item Value Reference Range Interpretation Comments Lymphocytes # (Auto) (test code = 84174-9) 0.8 1.0-3.2 L [facility] CenterMonocytes # (Auto)2018-05-20 14:47:00* Test Item Value Reference Range Interpretation Comments Monocytes # (Auto) (test code = 742-7) 0.5 0.2-0.8 [facility] CenterEosinophils # (Auto)2018-05-20 14:47:00* Test Item Value Reference Range Interpretation Comments Eosinophils # (Auto) (test code = 711-2) 0.0 0.0-0.4 [facility] CenterBasophils # (Auto)2018-05-20 14:47:00* Test Item Value Reference Range Interpretation Comments Basophils # (Auto) (test code = 704-7) 0.0 0.0-0.1 [facility] CenterAbsolute Immature Granulocyte (auto 2018-05-20 14:47:00* Test Item Value Reference Range Interpretation Comments Absolute Immature Granulocyte (auto (toby t code = Absolute Immature Granulocyte (auto) 0.01 0-0.1 [facility] CenterBASIC METABOLIC [id number] 12:14:00 * Test Item Value Reference Range Interpretation Comments SODIUM (BEAKER) (test code = 381) 136 meq/L 136-145 POTASSIUM (BEAKER) (test code = 379) 4.3 meq/L 3.5-5.1 CHLORIDE (BEAKER) (test code = 382) 98 meq/L 98-107 CO2 (BEAKER) (test code = 355) 23 meq/L 22-29 BLOOD UREA NITROGEN (BEAKER) (test code = 354) 64 mg/dL 7-21 H CREATININE (BEAKER) (test code = 358) 12.54 mg/dL 0.57-1.25 H GLUCOSE RANDOM (BEAKER) (test code = 652) 116 mg/dL 70-105 H CALCIUM (BEAKER) (test code = 697) 7.8 mg/dL 8.4-10.2 L EGFR (BEAKER) (test code = 1092) 4 mL/min/1.73 sq m ESTIMATED GFR IS NOT ACCURATE CREATININE CLEARANCE IN PREDICTING GLOMERULAR FILTRATION RATE. ESTIMATED GFR IS NOT APPLICABLE FOR DIALYSIS PATIENTS. PT/[id number] 12:06:00* Test Item Value Reference Range Interpretation Comments PROTIME (BEAKER) (test code = 759) 14.3 seconds 11.7-14.7 INR (BEAKER) (test code = 370) 1.1 <=5.9 PARTIAL THROMBOPLASTIN TIME (BEAKER) (test code = 760) 30.9 seconds 22.5-36.0 RECOMMENDED COUMADIN/WARFARIN INR THERAPY RANGESSTANDARD DOSE: 2.0 - 3.0 Inclu kaelyn: PROPHYLAXIS for venous thrombosis, systemic embolization; TREATMENT for hermes ous thrombosis and/or pulmonary embolus.HIGH RISK: Target INR is 2.5-3.5 for pat ients with mechanical heart valves.CBC W/PLT COUNT & AUTO [id number] 11:41:00* Test Item Value Reference Range Interpretation Comments WHITE BLOOD CELL COUNT (BEAKER) (test code = 775) 5.1 K/ L 3.5- 10.5 RED BLOOD CELL COUNT (BEAKER) (test code = 761) 3.64 M/ L 3.93-5 .22 L HEMOGLOBIN (BEAKER) (test code = 410) 10.3 GM/DL 11.2-15.7 L HEMATOCRIT (BEAKER) (test code = 411) 33.9 % 34.1-44.9 L MEAN CORPUSCULAR VOLUME (BEAKER) (test code = 753) 93.1 fL 79. 4-94.8 MEAN CORPUSCULAR HEMOGLOBIN (BEAKER) (test code = 751) 28.3 pg 25.6-32.2 MEAN CORPUSCULAR HEMOGLOBIN CONC (BEAKER) (test code = 752) 30.4 GM/DL 32.2-35.5 L RED CELL DISTRIBUTION WIDTH (BEAKER) (test code = 412) 14.2 % 11.7-14.4 PLATELET COUNT (BEAKER) (test code = 756) 142 K/CU MM 150-450 L MEAN PLATELET VOLUME (BEAKER) (test code = 754) 12.1 fL 9.4-12 .3 NUCLEATED RED BLOOD CELLS (BEAKER) (test code = 413) 0 /100 WBC 0 -0 NEUTROPHILS RELATIVE PERCENT (BEAKER) (test code = 429) 76 % LYMPHOCYTES RELATIVE PERCENT (BEAKER) (test code = 430) 14 % MONOCYTES RELATIVE PERCENT (BEAKER) (test code = 431) 9 % EOSINOPHILS RELATIVE PERCENT (BEAKER) (test code = 432) 1 % BASOPHILS RELATIVE PERCENT (BEAKER) (test code = 437) 0 % NEUTROPHILS ABSOLUTE COUNT (BEAKER) (test code = 670) 3.85 K/ L 1.56-6.13 LYMPHOCYTES ABSOLUTE COUNT (BEAKER) (test code = 414) 0.72 K/ L 1.18-3.74 L MONOCYTES ABSOLUTE COUNT (BEAKER) (test code = 415) 0.43 K/ L 0. 24-0.36 H EOSINOPHILS ABSOLUTE COUNT (BEAKER) (test code = 416) 0.06 K/ L 0.04-0.36 BASOPHILS ABSOLUTE COUNT (BEAKER) (test code = 417) 0.01 K/ L 0. 01-0.08 IMMATURE GRANULOCYTES-RELATIVE PERCENT (BEAKER) (test code = 2801) 0 % 0-1 Hepatitis A IgM Lzfibxic1924-62-55 11:09:00* Test Item Value Reference Range Interpretation Comments Hepatitis A IgM Antibody (test code = 61918-9) Negative [facility] B Surface Gqdbmcj0577-23-17 11:09:00* Test Item Value Reference Range Interpretation Comments Hepatitis B Surface Antigen (test code = 5196-1) Negative [facility] B Core IgM Tdzavsfr1225-54-94 11:09:00* Test Item Value Reference Range Interpretation Comments Hepatitis B Core IgM Antibody (test code = 27291-2) [facility] Kcjbaqrn5846-48-14 11:09:00* Test Item Value Reference Range Interpretation Comments Hepatitis C Antibody (test code = 67593-7) 0.1 Reference Range: 0.0 - 0.9 s/co ratioNegative: < 0.8Indeterminate: 0.8 - 0.9Positive: > 0.9The [facility] recommends that a positive HCV antibody resultbe followed up with a HCV Nucleic Acid Amplificationtest (269994).[facility] [id number] [place] [address]Kpf: Ronald Arcos MDFor inquiries, the physician may contact Branch: [phone] Lab: [phone] Pbdbega2522-56-32 11:33:00* Test Item Value Reference Range Interpretation Comments Bedside Glucose (test code = 81138-1) 257 70-120 H Meter ID: [id number] [place] Glucose 2018-02-24 11:33:00* Test Item Value Reference Range Interpretation Comments Bedside Glucose (test code = 32085-0) 257 70-120 H Meter ID: [id number] Medical CenterFree Thyroxine Index 2018-02-23 06:30:00* Test Item Value Reference Range Interpretation Comments Free Thyroxine Index (test code = 36872-3) 0.9587 1.4-3.8 L [facility]2018-02-23 06:30:00* Test Item Value Reference Range Interpretation Comments Thyroxine (T4) (test code = 3026-2) 3.18 4.5-10.9 L Our current method for Total T4 is not recommended for use as the only marker fo r evaluating patients for thyroid disorders.[facility] CenterTriiodothyronine (T3) Liblnn6902-50-73 06:30:00* Test Item Value Reference Range Interpretation Comments Triiodothyronine (T3) Uptake (test code = 3050-2) 30.15 22.5 -37.0 [facility] CenterThyroid Stimulating Hormone (TSH) 2018-02-23 06:30:00* Test Item Value Reference Range Interpretation Comments Thyroid Stimulating Hormone (TSH) (test code = 30314-6) 93.480 0.350-4.940 H [facility] CenterFr Thyroxine Kgdys3319-73-54 06:30:00* Test Item Value Reference Range Interpretation Comments Free Thyroxine Index (test code = 32291-5) 0.9587 1.4-3.8 L [facility] CenterThyroxine (T4)2018-02-23 06:30:00* Test Item Value Reference Range Interpretation Comments Thyroxine (T4) (test code = 3026-2) 3.18 4.5-10.9 L Our current method for Total T4 is not recommended for use as the only marker fo r evaluating patients for thyroid disorders.[facility] CenterTriiodothyronine (T3) Anfrvx8453-63-08 06:30:00* Test Item Value Reference Range Interpretation Comments Triiodothyronine (T3) Uptake (test code = 3050-2) 30.15 22.5 -37.0 [facility] CenterThyroid Stimulating Hormone (TSH) 2018-02-23 06:30:00* Test Item Value Reference Range Interpretation Comments Thyroid Stimulating Hormone (TSH) (test code = 82762-8) 93.480 0.350-4.940 H [facility] CenterFr Thyroxine Jkury7324-47-82 06:30:00* Test Item Value Reference Range Interpretation Comments Free Thyroxine Index (test code = 08886-1) 0.9587 1.4-3.8 L [facility] CenterThyroxine (T4)2018-02-23 06:30:00* Test Item Value Reference Range Interpretation Comments Thyroxine (T4) (test code = 3026-2) 3.18 4.5-10.9 L Our current method for Total T4 is not recommended for use as the only marker fo r evaluating patients for thyroid disorders.[facility] CenterTriiodothyronine (T3) Ztrctk5730-15-14 06:30:00* Test Item Value Reference Range Interpretation Comments Triiodothyronine (T3) Uptake (test code = 3050-2) 30.15 22.5 -37.0 [facility] Ggzee8524-47-69 06:04:00* Test Item Value Reference Range Interpretation Comments Sodium Level (test code = 2951-2) 139 136-145 [facility] CenterPotassium Zojdb3695-79-29 06:04:00* Test Item Value Reference Range Interpretation Comments Potassium Level (test code = 2823-3) 5.0 3.5-5.1 [facility] CenterChloride Zdpfk0322-34-23 06:04:00* Test Item Value Reference Range Interpretation Comments Chloride Level (test code = 2075-0) 98 98-107 [facility] CenterCarbon Dioxide Bhylo5373-71-60 06:04:00* Test Item Value Reference Range Interpretation Comments Carbon Dioxide Level (test code = 2028-9) 25 22-29 [facility] CenterAnion Gvd6768-05-59 06:04:00* Test Item Value Reference Range Interpretation Comments Anion Gap (test code = 43587-4) 21.0 8-16 H [facility] CenterBlood Urea Tdkpldrz9457-11-16 06:04:00* Test Item Value Reference Range Interpretation Comments Blood Urea Nitrogen (test code = 3094-0) 85 7-26 H [facility] CenterCreatinine2018-08-11 06:04:00* Test Item Value Reference Range Interpretation Comments Creatinine (test code = 2160-0) 10.38 0.57-1.11 H [facility] CenterBUN/Creatinine Zitaa6908-32-12 06:04:00* Test Item Value Reference Range Interpretation Comments BUN/Creatinine Ratio (test code = 3097-3) 8 6-25 [facility] CenterEstimat Glomerular Filtration Rate 2018-02-23 06:04:00* Test Item Value Reference Range Interpretation Comments Estimat Glomerular Filtration Rate (test code = 78785-2) 4 >60 L Ranges were taken from the National Kidney Disease Education Program and the [facility] literature.Reference ranges:60 or greater: Ivdidd91-60 ( for 3 consecutive months): Chronic kidney disease 15 or less: Kidney failureKnapp Medical CenterGlucose Wkruu8961-78-01 06:04:00* Test Item Value Reference Range Interpretation Comments Glucose Level (test code = VUH8001) 191 74-118 H [facility] CenterCalcium Mjjoy1202-69-94 06:04:00* Test Item Value Reference Range Interpretation Comments Calcium Level (test code = 70308-6) 8.4 8.4-10.2 [facility] CenterTotal Bhbcxlmfw7897-74-60 06:04:00* Test Item Value Reference Range Interpretation Comments Total Bilirubin (test code = 1975-2) 0.4 0.2-1.2 [facility] CenterAspartate Amino Transf (AST/SGOT) 2018-02-23 06:04:00* Test Item Value Reference Range Interpretation Comments Aspartate Amino Transf (AST/SGOT) (test code = Aspartate Amino Transf (AST/SGOT)) 14 5-34 [facility] CenterAlanine Aminotransferase (ALT/SGPT) 2018-02-23 06:04:00* Test Item Value Reference Range Interpretation Comments Alanine Aminotransferase (ALT/SGPT) (test code = 1742-6) 9 0-55 [facility] CenterTotal Iljxmwj4998-86-84 06:04:00* Test Item Value Reference Range Interpretation Comments Total Protein (test code = 2885-2) 7.1 6.5-8.1 [facility] CenterAlbumin2018-08-11 06:04:00* Test Item Value Reference Range Interpretation Comments Albumin (test code = 1751-7) 3.2 3.5-5.0 L [facility] CenterGlobulin2018-08-11 06:04:00* Test Item Value Reference Range Interpretation Comments Globulin (test code = 21211-9) 3.9 2.3-3.5 H [facility] CenterAlbumin/Globulin Ngewi2264-39-27 06:04:00 * Test Item Value Reference Range Interpretation Comments Albumin/Globulin Ratio (test code = 1759-0) 0.8 0.8-2.0 [facility] CenterAlkaline Nobdfzriwvy8978-48-78 06:04:00* Test Item Value Reference Range Interpretation Comments Alkaline Phosphatase (test code = 6768-6) 70 40-150 [facility] CenterTriglycerides Khpvl5099-08-75 06:04:00* Test Item Value Reference Range Interpretation Comments Triglycerides Level (test code = 2571-8) 186 0-149 H [facility] CenterCholesterol Uzjqw1834-68-56 06:04:00* Test Item Value Reference Range Interpretation Comments Cholesterol Level (test code = 2093-3) 246 0-199 H Less than 200 mg/dL Low Jiul813 - 239 mg/dL Borderline Ljlk869 m g/dl and greater High Risk [facility] CenterLDL Hlbkmkiykgv6475-29-21 06:04:00* Test Item Value Reference Range Interpretation Comments LDL Cholesterol (test code = 2089-1) 164 60-130 H [facility] Zedshnxygnu2929-92-14 06:04:00* Test Item Value Reference Range Interpretation Comments HDL Cholesterol (test code = 2085-9) 45 40-60 [facility] CenterCholesterol/HDL Udpic0005-15-06 06:04:00 * Test Item Value Reference Range Interpretation Comments Cholesterol/HDL Ratio (test code = 9830-1) 5.5 3.0-3.6 H [facility] CenterTriglycerides Qbrsh1872-86-43 06:04:00* Test Item Value Reference Range Interpretation Comments Triglycerides Level (test code = 2571-8) 186 0-149 H [facility] CenterCholesterol Yxbtj4589-02-56 06:04:00* Test Item Value Reference Range Interpretation Comments Cholesterol Level (test code = 2093-3) 246 0-199 H Less than 200 mg/dL Low Isry129 - 239 mg/dL Borderline Feoo317 m g/dl and greater High Risk [facility] CenterLDL Kriylajwroi1867-22-18 06:04:00* Test Item Value Reference Range Interpretation Comments LDL Cholesterol (test code = 2089-1) 164 60-130 H [facility] Pxrqbtmtddw1517-06-22 06:04:00* Test Item Value Reference Range Interpretation Comments HDL Cholesterol (test code = 2085-9) 45 40-60 [facility] CenterCholesterol/HDL Jxwkd6756-50-67 06:04:00 * Test Item Value Reference Range Interpretation Comments Cholesterol/HDL Ratio (test code = 9830-1) 5.5 3.0-3.6 H [facility] CenterWhite Blood Rvkzk3234-91-92 05:45:00* Test Item Value Reference Range Interpretation Comments White Blood Count (test code = 6690-2) 4.46 4.8-10.8 L [facility] CenterRed Blood Jldho5068-68-18 05:45:00* Test Item Value Reference Range Interpretation Comments Red Blood Count (test code = 789-8) 3.77 3.6-5.1 [facility] CenterHemoglobin2018-08-11 05:45:00* Test Item Value Reference Range Interpretation Comments Hemoglobin (test code = 70197-9) 11.7 12.0-16.0 L [facility] CenterHematocrit2018-08-11 05:45:00* Test Item Value Reference Range Interpretation Comments Hematocrit (test code = 4544-3) 36.0 34.2-44.1 [facility] CenterMean Corpuscular Wylrdy8996-59-15 05:45:00* Test Item Value Reference Range Interpretation Comments Mean Corpuscular Volume (test code = 787-2) 95.5 81-99 [facility] CenterMean Corpuscular Bnbbjvdcoq7762-19-96 05:45:00* Test Item Value Reference Range Interpretation Comments Mean Corpuscular Hemoglobin (test code = 785-6) 31.0 28-32 [facility] CenterMean Corpuscular Hemoglobin Concent 2018-02-23 05:45:00* Test Item Value Reference Range Interpretation Comments Mean Corpuscular Hemoglobin Concent (test code = 786-4) 32.5 31-35 [facility] CenterRed Cell Distribution Cumly2235-02-77 05:45:00* Test Item Value Reference Range Interpretation Comments Red Cell Distribution Width (test code = 47438-3) 14.6 11.7 -14.4 H [facility] CenterPlatelet Mntdt3266-14-34 05:45:00* Test Item Value Reference Range Interpretation Comments Platelet Count (test code = 777-3) 139 140-360 L [facility] CenterNeutrophils (%) (Auto)2018-02-23 05:45:00 * Test Item Value Reference Range Interpretation Comments Neutrophils (%) (Auto) (test code = 62987-2) 62.8 38.7-80.0 [facility] CenterLymphocytes (%) (Auto)2018-02-23 05:45:00 * Test Item Value Reference Range Interpretation Comments Lymphocytes (%) (Auto) (test code = 736-9) 25.1 18.0-39.1 [facility] CenterMonocytes (%) (Auto)2018-02-23 05:45:00* Test Item Value Reference Range Interpretation Comments Monocytes (%) (Auto) (test code = 5905-5) 10.1 4.4-11.3 [facility] CenterEosinophils (%) (Auto)2018-02-23 05:45:00 * Test Item Value Reference Range Interpretation Comments Eosinophils (%) (Auto) (test code = 713-8) 1.6 0.0-6.0 [facility] CenterBasophils (%) (Auto)2018-02-23 05:45:00* Test Item Value Reference Range Interpretation Comments Basophils (%) (Auto) (test code = 706-2) 0.2 0.0-1.0 [facility] CenterIM GRANULOCYTES %2018-02-23 05:45:00* Test Item Value Reference Range Interpretation Comments IM GRANULOCYTES % (test code = IM GRANULOCYTES %) 0.2 0.0- 1.0 [facility] CenterNeutrophils # (Auto)2018-02-23 05:45:00* Test Item Value Reference Range Interpretation Comments Neutrophils # (Auto) (test code = 751-8) 2.8 2.1-6.9 [facility] CenterLymphocytes # (Auto)2018-02-23 05:45:00* Test Item Value Reference Range Interpretation Comments Lymphocytes # (Auto) (test code = 97140-4) 1.1 1.0-3.2 [facility] CenterMonocytes # (Auto)2018-02-23 05:45:00* Test Item Value Reference Range Interpretation Comments Monocytes # (Auto) (test code = 742-7) 0.5 0.2-0.8 [facility] CenterEosinophils # (Auto)2018-02-23 05:45:00* Test Item Value Reference Range Interpretation Comments Eosinophils # (Auto) (test code = 711-2) 0.1 0.0-0.4 [facility] CenterBasophils # (Auto)2018-02-23 05:45:00* Test Item Value Reference Range Interpretation Comments Basophils # (Auto) (test code = 704-7) 0.0 0.0-0.1 [facility] CenterAbsolute Immature Granulocyte (auto 2018-02-23 05:45:00* Test Item Value Reference Range Interpretation Comments Absolute Immature Granulocyte (auto (toby t code = Absolute Immature Granulocyte (auto) 0.01 0-0.1 [facility] CenterCreatine Kinase NH0607-39-18 19:25:00* Test Item Value Reference Range Interpretation Comments Creatine Kinase MB (test code = 45687-3) 4.10 0-5.0 [facility] CenterTrjohnson city medical centernin U7724-09-27 19:25:00* Test Item Value Reference Range Interpretation Comments Troponin I (test code = GNC6825) 0.077 0-0.300 [facility] CenterCreatine Kinase ZA1626-91-42 19:25:00* Test Item Value Reference Range Interpretation Comments Creatine Kinase MB (test code = 01858-5) 4.10 0-5.0 [facility] H[facility]37 19:25:00* Test Item Value Reference Range Interpretation Comments Troponin I (test code = HPD7739) 0.077 0-0.300 [facility] CenterCreatine Gnltsm9781-65-02 19:15:00* Test Item Value Reference Range Interpretation Comments Creatine Kinase (test code = 2157-6) 158 29-168 [facility] CenterCreatine Owaqmr6303-29-35 19:15:00* Test Item Value Reference Range Interpretation Comments Creatine Kinase (test code = 2157-6) 158 29-168 [facility] CenterB-Type Natriuretic Yelygbh3219-56-38 03:10:00* Test Item Value Reference Range Interpretation Comments B-Type Natriuretic Peptide (test code = 88772-3) 244.1 0-100 H [facility] CenterB-Type Natriuretic Opwrcxt8326-01-43 03:10:00* Test Item Value Reference Range Interpretation Comments B-Type Natriuretic Peptide (test code = 37832-8) 244.1 0-100 H [facility] CenterCT BRAIN MV4721-15-93 03:03:00 [place] [address] Patient Name: ANGELA JEFFERS MR #: [id number] : 1945 Age/Sex: 73/F Req #: [id number] Adm Physician: CHERELLE VELASQUEZ MD Ordered by: WILLIE SCHWARTZ MD Report #: [id number] Location: [facility] Room/Bed: [place] [address] Procedure: [id number] C T/CT BRAIN WO Exam Date: 02/22/18 Exam Time: 0215 REPORT STATUS: Signed ADDENDUM #1 Dose modulation, iterative reconstruction, and/or weig ht based adjustment of the mA/kV was utilized to reduce the radiation dose to as low as reasonably achievable. Signed by: Dr. Annmarie Larson M.D. on 07/30/2018 10:39 AM ORIGINAL REPORT Examination: CT head without contrast Clinical Indication: Dizziness. Technique: Transaxial non contrast images from the skull base through the vertex were obtained. Sagittal and coronal reformatted images were done. Comparison: None. Findings: Scalp: No abnormalities. Bones: Intact. No fractures. No blastic or lytic lesions. Brain sulci: Appropriate for patient's age. Ventricles: Normal in size and configuration. No hydrocephalus. . Extra-axial space: No a bnormalities. Parenchyma: There are mild confluent areas of low-attenuat ion within subcortical and periventricular white matter, nonspecific, but coul d represent microvascular ischemic disease. No masses, hemorrhage, or acute or chronic cortical based vascular insults. Suprasellar region: No abnormal ities. Craniocervical junction: The foramen magnum is patent. No Chiari one malformation. Incidental findings: Atherosclerotic calcification of the cavernous and supraclinoid internal carotid arteries. Impression: 1. No acute intracranial finding. 2. Mild chronic microvascular ischemic c hange. Signed by: Dr. Annmarie Larson M.D. on 02/22/2018 3:04 AM Di ctated By: ANNMARIE REDDY MD 1039 Transcribed By: ARIEL on 02/22/18 0304 C OPY TO: WILLIE SCHWARTZ MD Prothrombin Waec8212-78-04 02:59:00* Test Item Value Reference Range Interpretation Comments Prothrombin Time (test code = 5902-2) 13.3 11.9-14.5 [facility] CenterProthromb Time International Ratio 2018-02-22 02:59:00* Test Item Value Reference Range Interpretation Comments Prothromb Time International Ratio (test code = 6301-6) 1.09 Oral Anticoagulant Therapy INR Values:1. Low Intensity Therapy 1.5 - 2.02 . Moderate Intensity Therapy 2.0 - 3.03. High Intensity Therapy(1) 2.5 - 3. 54. High Intensity Therapy(2) 3.0 - 4.05. Panic Value INR > 5.0 [facility] CenterActivated Partial Thromboplast Time 2018-02-22 02:59:00* Test Item Value Reference Range Interpretation Comments Activated Partial Thromboplast Time (test code = 32249-9) 32.6 23.8-35.5 [facility] CenterMagnesium Qerww1436-35-88 02:59:00* Test Item Value Reference Range Interpretation Comments Magnesium Level (test code = 63474-3) 2.1 1.3-2.1 [facility] CenterProthrombin Sdkh4395-96-10 02:59:00* Test Item Value Reference Range Interpretation Comments Prothrombin Time (test code = 5902-2) 13.3 11.9-14.5 [facility] CenterProthromb Time International Ratio 2018-02-22 02:59:00* Test Item Value Reference Range Interpretation Comments Prothromb Time International Ratio (test code = 6301-6) 1.09 Oral Anticoagulant Therapy INR Values:1. Low Intensity Therapy 1.5 - 2.02 . Moderate Intensity Therapy 2.0 - 3.03. High Intensity Therapy(1) 2.5 - 3. 54. High Intensity Therapy(2) 3.0 - 4.05. Panic Value INR > 5.0 [facility] CenterActivated Partial Thromboplast Time 2018-02-22 02:59:00* Test Item Value Reference Range Interpretation Comments Activated Partial Thromboplast Time (test code = 62618-8) 32.6 23.8-35.5 [facility] CenterUrine Siwod8399-38-23 02:51:00* Test Item Value Reference Range Interpretation Comments Urine Color (test code = 5778-6) YELLOW YELLOW [facility] CenterUrine Tgwriut3732-67-92 02:51:00* Test Item Value Reference Range Interpretation Comments Urine Clarity (test code = 59289-9) CLEAR CLEAR [facility] CenterUrine Specific Drnqwfp6978-96-14 02:51:00 * Test Item Value Reference Range Interpretation Comments Urine Specific [place] (test code = 5811-5) 1.010 1.010-1.02 5 [facility] CenterUrine fW0791-36-64 02:51:00* Test Item Value Reference Range Interpretation Comments Urine pH (test code = 31509-3) 7 5-7 [facility] Leukocyte Leqfnses5208-99-80 02:51:00* Test Item Value Reference Range Interpretation Comments Urine Leukocyte Esterase (test code = 5799-2) 1+ NEGATIVE H [facility] Oixvftu8955-18-23 02:51:00* Test Item Value Reference Range Interpretation Comments Urine Nitrite (test code = 05388-8) NEGATIVE NEGATIVE [facility] Eyacpwk9569-36-97 02:51:00* Test Item Value Reference Range Interpretation Comments Urine Protein (test code = 5804-0) 3+ NEGATIVE H [facility] Glucose (UA)2018-02-22 02:51:00* Test Item Value Reference Range Interpretation Comments Urine Glucose (UA) (test code = 2349-9) 2+ NEGATIVE H [facility] Llbmqbw9879-59-51 02:51:00* Test Item Value Reference Range Interpretation Comments Urine Ketones (test code = 91553-6) NEGATIVE NEGATIVE [facility] Oxkvxmepomaz6587-79-54 02:51:00* Test Item Value Reference Range Interpretation Comments Urine Urobilinogen (test code = 77324-8) 0.2 0.2-1 [facility] Zhspuzagl7033-85-66 02:51:00* Test Item Value Reference Range Interpretation Comments Urine Bilirubin (test code = 1978-6) NEGATIVE NEGATIVE [facility] Amdgr5575-30-55 02:51:00* Test Item Value Reference Range Interpretation Comments Urine Blood (test code = 89101-2) 3+ NEGATIVE H [facility] GDK1753-95-46 02:51:00* Test Item Value Reference Range Interpretation Comments Urine WBC (test code = 5821-4) 11-20 0-5 H [facility] AEO9003-71-41 02:51:00* Test Item Value Reference Range Interpretation Comments Urine RBC (test code = 79173-0) 6-10 0-5 H [facility] CenterUrine Wvujiqon0154-32-16 02:51:00* Test Item Value Reference Range Interpretation Comments Urine Bacteria (test code = 61711-6) NONE NONE [facility] CenterUrine Epithelial Hwkua0760-25-70 02:51:00 * Test Item Value Reference Range Interpretation Comments Urine Epithelial Cells (test code = 19601-9) MANY NONE [facility] CenterUrine Zytmh8517-31-70 02:51:00* Test Item Value Reference Range Interpretation Comments Urine Color (test code = 5778-6) YELLOW YELLOW [facility] CenterUrine Aaotube3193-10-50 02:51:00* Test Item Value Reference Range Interpretation Comments Urine Clarity (test code = 22709-5) CLEAR CLEAR [facility] Specific Fxlzzrw9513-01-35 02:51:00 * Test Item Value Reference Range Interpretation Comments Urine Specific [place] (test code = 5811-5) 1.010 1.010-1.02 5 [facility] mP8076-06-80 02:51:00* Test Item Value Reference Range Interpretation Comments Urine pH (test code = 99209-5) 7 5-7 [facility] CenterUrine Leukocyte Drrphkgj7165-35-28 02:51:00* Test Item Value Reference Range Interpretation Comments Urine Leukocyte Esterase (test code = 5799-2) 1+ NEGATIVE H [facility] Kgmdwfu7336-78-13 02:51:00* Test Item Value Reference Range Interpretation Comments Urine Nitrite (test code = 99562-3) NEGATIVE NEGATIVE [facility] CenterUrine Cuyrrne4870-88-84 02:51:00* Test Item Value Reference Range Interpretation Comments Urine Protein (test code = 5804-0) 3+ NEGATIVE H [facility] CenterUrine Glucose (UA)2018-02-22 02:51:00* Test Item Value Reference Range Interpretation Comments Urine Glucose (UA) (test code = 2349-9) 2+ NEGATIVE H [facility] CenterUrine Nexyifh2830-12-81 02:51:00* Test Item Value Reference Range Interpretation Comments Urine Ketones (test code = 74747-6) NEGATIVE NEGATIVE [facility] Ghrpntcfjffp0450-87-14 02:51:00* Test Item Value Reference Range Interpretation Comments Urine Urobilinogen (test code = 66812-6) 0.2 0.2-1 [facility] CenterUrine Jyihjdlzf0604-51-95 02:51:00* Test Item Value Reference Range Interpretation Comments Urine Bilirubin (test code = 1978-6) NEGATIVE NEGATIVE [facility] CenterUrine Miavl0536-40-17 02:51:00* Test Item Value Reference Range Interpretation Comments Urine Blood (test code = 71915-1) 3+ NEGATIVE H [facility] CenterUrine AUN0404-37-10 02:51:00* Test Item Value Reference Range Interpretation Comments Urine WBC (test code = 5821-4) 11-20 0-5 H [facility] CenterUrine QJQ5312-07-56 02:51:00* Test Item Value Reference Range Interpretation Comments Urine RBC (test code = 42656-1) 6-10 0-5 H [facility] CenterUrine Ewduxofv0454-32-12 02:51:00* Test Item Value Reference Range Interpretation Comments Urine Bacteria (test code = 53558-5) NONE NONE [facility] CenterUrine Epithelial Wasqy8199-95-98 02:51:00 * Test Item Value Reference Range Interpretation Comments Urine Epithelial Cells (test code = 67925-0) MANY NONE [facility] CenterUrine Raqew8927-25-90 02:51:00* Test Item Value Reference Range Interpretation Comments Urine Color (test code = 5778-6) YELLOW YELLOW [facility] CenterUrine Ihgctho3250-63-68 02:51:00* Test Item Value Reference Range Interpretation Comments Urine Clarity (test code = 59722-8) CLEAR CLEAR [facility] CenterUrine Specific Jrdwfhl4047-64-22 02:51:00 * Test Item Value Reference Range Interpretation Comments Urine Specific [place] (test code = 5811-5) 1.010 1.010-1.02 5 [facility] CenterUrine mD8789-80-71 02:51:00* Test Item Value Reference Range Interpretation Comments Urine pH (test code = 33035-2) 7 5-7 [facility] Leukocyte Ogmbbibh3313-23-49 02:51:00* Test Item Value Reference Range Interpretation Comments Urine Leukocyte Esterase (test code = 5799-2) 1+ NEGATIVE H [facility] Fstkkiq2196-87-63 02:51:00* Test Item Value Reference Range Interpretation Comments Urine Nitrite (test code = 86770-2) NEGATIVE NEGATIVE [facility] CenterUrine Xylohsv7928-16-74 02:51:00* Test Item Value Reference Range Interpretation Comments Urine Protein (test code = 5804-0) 3+ NEGATIVE H [facility] Glucose (UA)2018-02-22 02:51:00* Test Item Value Reference Range Interpretation Comments Urine Glucose (UA) (test code = 2349-9) 2+ NEGATIVE H [facility] Oouskum1993-26-59 02:51:00* Test Item Value Reference Range Interpretation Comments Urine Ketones (test code = 36563-8) NEGATIVE NEGATIVE [facility] Stoywyljiqun9561-01-62 02:51:00* Test Item Value Reference Range Interpretation Comments Urine Urobilinogen (test code = 55300-8) 0.2 0.2-1 [facility] Hcvwfwhdd6650-56-25 02:51:00* Test Item Value Reference Range Interpretation Comments Urine Bilirubin (test code = 1978-6) NEGATIVE NEGATIVE [facility] Touag0678-05-58 02:51:00* Test Item Value Reference Range Interpretation Comments Urine Blood (test code = 87927-7) 3+ NEGATIVE H [facility] YXG0731-06-42 02:51:00* Test Item Value Reference Range Interpretation Comments Urine WBC (test code = 5821-4) 11-20 0-5 H [facility] DOM0020-66-09 02:51:00* Test Item Value Reference Range Interpretation Comments Urine RBC (test code = 75189-7) 6-10 0-5 H [facility] Sshgjvpt2766-57-41 02:51:00* Test Item Value Reference Range Interpretation Comments Urine Bacteria (test code = 58646-7) [facility]ONE [facility] [id number] 02:51:00 * Test Item Value Reference Range Interpretation Comments Urine Epithelial Cells (test code = 72817-9) MANY NONE [facility]2018-02-22 02:47:00 [facility] [address] [place] [address] Patient Name: ANGELA JEFFERS MR #: [id number] : 1945 Age/Sex: 73/F Req #: [id number] Adm Physician: Ordered by: WILLIE SCHWARTZ MD Report #: [id number] Location: ER Room/Bed: Procedure: [id number] DX/CHEST SINGLE (PORTABLE) E xam Date: 02/22/18 Exam Time: 224 REPORT STATU S: Signed EXAM: CHEST SINGLE (PORTABLE), AP 1 view INDICATION: Shortness of breath, dizzy COMPARISON: None FINDINGS: LINES/TUBES: None LUNGS: No consolidations or edema. PLEURA: No effusions or pneumothorax. HE ART AND MEDIASTINUM: Cardiomegaly. BONES AND SOFT TISSUES: No acute finding s. Surgical clips project over the midline neck. IMPRESSION: Cardiomega ly and vascular congestion. Signed by: Dr. Zaida Alvaraod M.D. on 02/22/2018 2:48 AM Dictated By: ZAIDA ALVARADO MD 7 Transcribed By: ARIEL on 02/22/18247 COPY TO: WILLIE SCHWARTZ MD
--- NOTE | 2020-04-24 13:39 | Diagnostic Imaging Report ---
X-ray 2 views of the femur. HISTORY: Pain. COMPARISON: None available. FINDINGS: See impression. IMPRESSION: HIP: Evaluation of the osseous and soft tissue structures is severely limited by patient's body habitus. Despite this limitations, no displaced fracture or dislocation identified. 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 No radiographic evidence of hardware complication. Atherosclerotic vascular calcification. Signed by: Alejandra De Leon MD on 04/24/2020 1:35 PM
--- NOTE | 2020-04-24 13:40 | Diagnostic Imaging Report ---
EXAMINATION: CHEST SINGLE (PORTABLE) INDICATION: Status post fall with left hip pain. COMPARISON: 04/05/2020. FINDINGS: The patient is severely rotated and the examination is nondiagnostic. IMPRESSION: Patient is severely rotated and examination is nondiagnostic. Recommend repeat chest x-ray. Signed by: Alejandra De Leon MD on 04/24/2020 1:37 PM
--- NOTE | 2020-04-24 14:19 | Emergency Department Note ---
History of Present Illnes History of Present Illness Chief Complaint: Extremity Trauma/Pain History of Present Illness This is a 75 year old female Patient in from home via EMS with reports of left lower extremity pain and needing dialysis. Patient reports that she "didn't attempt to go to dialysis today" because of the pain in her left hip. The patient recently suffered a fall and fractured her left hip and had surgery. Per patient, she received dialysis last on Sunday. Patient reports that on she called the ambulance service to pick her up for dialysis but then refused to go due to the pain. The patient complains of 04/24 pain but appears in no distress.. 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 Arrival Mode: [facility] Fire Fighting Equipment Specialist Required: No Onset (how long ago): week(s) Location: LEFT HIP Quality: PAIN Severity: moderate Timing of current episode: constant Chronicity: chronic Context: Denies recent illness Relieving factors: none Exacerbating factors: none Associated symptoms: Reports denies other symptoms Past Medical/Family History Physician Review I have reviewed the patient's past medical and family history. Any updates have been documented here. Past Medical History Recent Fever: No Clinical Suspicion of Infectio: No New/Unexplained Change in Ment: No Past Medical History: Hypertension, Diabetes, COPD, CHF, Asthma, ESRD, Hemodyalisis, Other Mental Illness, Chronic Kidney Disease Other Medical History: BIPOLAR SHINGLES BRONCHITIS DIALYSIS T//SUN DIVERTICULITIS Past Surgical History: Hysterectomy, T&A Other Surgery: LEFT AVF THYROIDECTOMY LEFT FOOT AMPUTATION Left hip ORIF Social History Smoking Cessation: Never Smoker Counseling Performed: No Alcohol Use: None Any Illegal Drug Use: No TB Exposure/Symptoms: No Physically hurt or threatened: No Family History Family history of heart diseas: No Other Last Tetanus: UTD Any Pre-Existing Lines (PICC,: No Review of Systems Review of Systems Constitutional: Reports no symptoms EENTM: Reports no symptoms Cardiovascular: Reports no symptoms Respiratory: Reports no symptoms Gastrointestinal: Reports no symptoms Genitourinary: Reports no symptoms Musculoskeletal: Reports as per HPI Integumentary: Reports no symptoms Neurological: Reports no symptoms Psychological: Reports no symptoms Endocrine: Reports no symptoms Hematological/Lymphatic: Reports no symptoms Physical Exam Related Data Allergies: Coded Allergies: atorvastatin (Verified Allergy, Unknown, Hives, 12/23/18) pneumococcal vaccine (Verified Allergy, Unknown, 12/23/18) Triage Vital Signs Vital Signs Date Time Temp Pulse Resp B/P (MAP) Pulse Ox O2 Delivery O2 Flow Rate FiO2 04/24/20 11:04 98.1 79 16 155/72 100 Room Air Vital signs reviewed: Yes Physical Exam CONSTITUTIONAL Constitutional: Present well-developed, Present well-nourished HENT HENT: Present normocephalic, Present atraumatic, Present oropharynx clear/m oist, Present nose normal HENT L/R: Present left ext ear normal, Present right ext ear normal EYES Eyes: Reports PERRL, Reports conjunctivae normal NECK Neck: Present ROM normal PULMONARY Pulmonary: Present effort normal, Present breath sounds normal CARDIOVASCULAR Cardiovascular: Present regular rhythm, Present heart sounds normal, Present capillary refill normal, Present normal rate GASTROINTESTINAL Abdominal: Present soft, Present nontender, Present bowel sounds normal GENITOURINARY Genitourinary: Present exam deferred SKIN Skin: Present warm, Present dry MUSCULOSKELETAL Musculoskeletal: Present other (TENDERNESS, DECR ROM LEFT HIP, BILAT FOOT AMPUTATION) NEUROLOGICAL Neurological: Present alert, Present oriented x 3, Present no gross motor or sensory deficits PSYCHOLOGICAL Psychological: Present mood/affect normal, Present judgement normal Results Laboratory Result Diagram: 04/24/20 1116 04/24/20 1116 Laboratory Laboratory Tests Test 04/24/20 11:16 White Blood Count 5.67 x10e3/uL (4.8-10.8) Red Blood Count 3.65 x10e6/uL (3.6-5.1) Hemoglobin 10.3 g/dL (12.0-16.0) Hematocrit 34.6 % (34.2-44.1) Mean Corpuscular Volume 94.8 fL (81-99) Mean Corpuscular Hemoglobin 28.2 pg (28-32) Mean Corpuscular Hemoglobin Concent 29.8 g/dL (31-35) Red Cell Distribution Width 14.9 % (11.7-14.4) Platelet Count 208 x10e3/uL (140-360) Neutrophils (%) (Auto) 65.5 % (38.7-80.0) Lymphocytes (%) (Auto) 21.2 % (18.0-39.1) Monocytes (%) (Auto) 10.4 % (4.4-11.3) Eosinophils (%) (Auto) 2.5 % (0.0-6.0) Basophils (%) (Auto) 0.2 % (0.0-1.0) Neutrophils # (Auto) 3.7 (2.1-6.9) Lymphocytes # (Auto) 1.2 (1.0-3.2) Monocytes # (Auto) 0.6 (0.2-0.8) Eosinophils # (Auto) 0.1 (0.0-0.4) Basophils # (Auto) 0.0 (0.0-0.1) Absolute Immature Granulocyte (auto 0.01 x10e3/uL (0-0.1) Prothrombin Time 14.2 seconds (11.9-14.5) Prothromb Time International Ratio 1.05 Activated Partial Thromboplast Time 36.7 seconds (23.8-35.5) Sodium Level 138 mmol/L (136-145) Potassium Level 4.4 mmol/L (3.5-5.1) Chloride Level 96 mmol/L (98-107) Carbon Dioxide Level 27 mmol/L (22-29) Anion Gap 19.4 mmol/L (8-16) Blood Urea Nitrogen 56 mg/dL (7-26) Creatinine 9.28 mg/dL (0.57-1.11) Estimat Glomerular Filtration Rate 5 ML/MIN (60-) BUN/Creatinine Ratio 6 (6-25) Glucose Level 170 mg/dL (74-118) Calcium Level 7.7 mg/dL (8.4-10.2) Total Bilirubin 0.4 mg/dL (0.2-1.2) Aspartate Amino Transf (AST/SGOT) 10 IU/L (5-34) Alanine Aminotransferase (ALT/SGPT) < 6 IU/L (0-55) Alkaline Phosphatase 73 IU/L (40-150) Creatine Kinase 37 IU/L (29-168) Creatine Kinase MB 1.80 ng/mL (0-5.0) Troponin I 0.073 ng/mL (0-0.300) Total Protein 7.6 g/dL (6.5-8.1) Albumin 2.7 g/dL (3.5-5.0) Globulin 4.9 g/dL (2.3-3.5) Albumin/Globulin Ratio 0.6 (0.8-2.0) Lab results reviewed: Yes Imaging Imaging results reviewed: Yes Procedures 12 Lead ECG Interpretation ECG Interpretation : ECG: ECG 1 Fire Fighting Equipment Specialist: Interpreted by ED physician Date: Apr 24, 2020 Time: 11:04 Rhythm: sinus rhythm Rate: normal BPM: 79 QRS axis: normal ST segments normal: Yes T wave inversion: I, aVL Q waves: III, aVF Clinical Impression: abnormal ECG Additional Comments POOR RWP Assessment & Plan Medical Decision Making MDM NO DIALYSIS FOR 4 DAYS, LAST TIME SHE DID THIS HER K WAS 7.8, C/O HIP PAIN - CBC, CHEM, ECG, CXR, HIP/FEMUR XRAYS - R/O HYPERKALEMIA, VOLUME OVERLOAD BUT CLINICALLY SHE DOES NOT SEEM TO BE, FEMUR FX OR LOOSENING OF HARDWARE Reassessment Reassessment WE TRIED TO GET PT TO HER HD UNIT BUT THEY DO NOT HAVE CHAIR AVAILABLE NOW. I SPOKE WITH DR LEON AND DR VELASQUEZ - WILL ADMIT OBS AND DO HD Assessment & Plan Final Impression: (1) ESRD (end stage renal disease) on dialysis (2) Hip pain Depart Disposition: ADMITTED Last Vital Signs Date Time Temp Pulse Resp B/P (MAP) Pulse Ox O2 Delivery O2 Flow Rate FiO2 04/24/20 12:48 78 16 159/83 99 Room Air 04/24/20 11:04 98.1 Home Meds Active Scripts Levofloxacin (LEVAQUIN) 500 Mg Tablet, 500 MG PO every other day, #4 Prov:FABIAN CARDOZO MANAGER MBA 08/26/19 Metronidazole (FLAGYL) 500 Mg Tablet, 500 MG PO TID, #27 Prov:FABIAN CARDOZO MANAGER MBA 08/26/19 Clopidogrel Bisulfate (CLOPIDOGREL) 75 Mg Tablet, 75 MG PO DAILY, #30 TAB Prov:FABIAN CARDOZO MANAGER MBA 06/04/19 Levothyroxine Sodium (LEVOTHYROXINE SODIUM) 75 Mcg Tablet, 175 MCG PO DAILY, #30 TAB Prov:FABIAN CARDOZO MANAGER MBA 06/04/19 Furosemide (FUROSEMIDE) 40 Mg Tablet, 80 MG PO BID, #60 TAB Prov:FABIAN CARDOZO MANAGER MBA 06/04/19 Reported Medications Calcium Acetate (CALCIUM ACETATE) 667 Mg Tablet, 667 MG PO TID, CAP 11/07/18 Carvedilol (CARVEDILOL) 3.125 Mg Tablet, 3.125 MG PO BID, #60 TAB 11/07/18 Cilostazol (CILOSTAZOL) 100 Mg Tablet, 50 MG PO DAILY, #30 TAB 11/07/18 Docusate Sodium (DOCUSATE SODIUM) 100 Mg Capsule, 100 MG PO, CAP 11/07/18 Melatonin (MELATONIN) 3 Mg Tablet, 3 MG PO, TAB 11/07/18 Oxycodone Hcl/Acetaminophen (OXYCODONE-ACETAMINOPHEN 5-325) 1 Each Tablet, 5-325 EACH PO, TAB 11/07/18 Hydrocortisone (ANUSOL-HC) 30 Gm Cream..g., 30 MG RC BID, #28 SUPP.RECT 02/24/18 Nifedipine (PROCARDIA XL) 30 Mg Tab.er.24, 30 MG PO DAILY, #30 TAB 02/24/18 WILLIE SCHWARTZ MD Apr 24, 2020 14:19
--- OUTSIDE RECORDS SUMMARY | 2020-04-24 14:28 | XMS REPORT | Clinical Summary ---
Author Author [facility]AD[facility]EL [facility] Organization [facility] Address Unknown Phone Unavailable Care Team Providers Care Labor Law Professor Name Role Phone Tl Patel PCP Allergies [...] strength vitamin D (around 01/02/14), start taking [id number] ter vitamin D3 2000 units daily.. 10/27/2019 [...] Encounter 04/16/2020 04/14/2020 Orders Only General Internal Pr dicine 04/14/2020 Travel Stu Mayfield MD Leibman, Neville Saul, MD 02/26/2020 Anesthesia Event Deandra Morales MD ORIF,FEMUR 02/26/2020 Surgery Saad Baker MD Ali, MD Spike Arana Hector B., MD Cahill, Catherine Wynne, MD Closed displaced transverse fracture of shaft of left femur, initial encounter (HCC) (Primary Dx); Fall, initial encounter; Left leg pain; Bradycardia; Acute hyperkalemia; ESRD on dialysis (HCC); Noncompliance 02/25/2020 [facility] General Internal Me dicine - Encounter 03/02/2020 02/25/2020 Orders Only General Internal Pr dicine 02/25/2020 Travel Kishore Gill MD Goldman, Steven, CRNA 10/24/2019 Anesthesia Event Goyo Haji MD AMPUTATION,FOOT 10/24/2019 Surgery Juan J Ocasio MD Bipolar disorder in full remission, most recent episode unspecified type (HCC); Cognitive impairment 10/22/2019 [facility] General Internal Me dicine - Encounter 10/27/2019 10/22/2019 Orders Only General Internal Pr dicine Ofordeme, Kenechukwu TlMD Oliver jeffries Adam Michael, MD Alagugurusamy, Rajkumar, MD Dang, Will Reilly MD Altered mental status, unspecified alter ed mental status type (Primary Dx); ESRD (end stage renal disease) on dialysis (HCC); Acute UTI; SOB (shortness of breath); Bipolar disorder in full remission, most recent episode unspecified type (HCC); Delirium due to another medical condition; Subacute delirium; Delirium 09/05/2019 [facility] dicine - Encounter 09/19/2019 09/03/2019 Travel Geri Louie MD Narayan, Rakesh, MD 08/29/2019 Anesthesia Event Goyo Haji MD AMPUTATION,FOOT 08/29/2019 Surgery Goyo Haji MD Warren, Vicki Pope MD 08/29/2019 [facility] dicine - Encounter 09/03/2019 08/28/2019 Hospital Pre-Admission Testi ng Encounter Denny Sandoval CRNA 08/22/2019 Anesthesia Event Renea Castañeda 08/14/2019 Anesthesia Event Yolanda Woodard MD Rehman, Javed, MD Pneumonia of left lower lobe due to infe ctious organism ([facility]) (Primary Dx); Hypervolemia, unspecified hypervolemia type; ESRD on dialysis (HCC) 08/14/2019 [facility] dicine - Encounter 08/15/2019 08/14/2019 Orders Only [facility] dicine 08/14/2019 Travel Jonathan Wood MD PERIPHERAL ANGIOS & IVUS 06/27/2019 Surgery Jonathan Wood MD [facility], MD Emily Faulkner, MD Thomas Steve Yang, MD Warren, MD Javid Dias, Stephen Chambers MD 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); Acute ischemic stroke (HCC); PAD (peripheral artery disease) ([facility]); Anemia due to blood loss; Bipolar affective disorder, remission status unspecified (HCC); Coronary artery disease involving coquille coronary artery of coquille heart without angina pectoris; Type 2 diabetes mellitus with diabetic polyneuropathy, without long-term current use of insulin (HCC); ESRD needing dialysis (HCC); Mixed hyperlipidemia; Received intravenous tissue plasminogen activator (tPA) in emergency department; Essential hypertension; Hypothyroidism, unspecified type; Impaired mobility and ADLs; Abnormal gait; Physical deconditioning; Cognitive deficits 06/27/2019 [facility] Internal Pr dicine - Encounter 07/11/2019 06/27/2019 Travel Jonathan [...] Area Manufactur er 03/15/2028 04.005.530S / / [id number] Scr Lck T25 5.0x40 Ti 04.005.530s - IMPLANTS Left: Hip SYNTHES:SY [id number] [employer] [place] Implanted: Qty: 1 on 02/26/2020 by Deandra Morales MD at [facility] 01/13/2028 04.005.538S / / [id number] Scr Lck T25 5.0x48 Ti 04.005.538s - IMPLANTS Left: Hip SYNTHES:SY [id number] [employer] [place] Implanted: Qty: 1 on 02/26/2020 by Deandra Morales MD at [facility] 12/13/2026 04.038.185S / / [id number] Scr Tfna 85mm Strl 04.038.185s - IMPLANTS Left: Hip SYNTHES:SY [id number] [employer] [place] Implanted: Qty: 1 on 02/26/2020 by Deandra Morales MD at [facility] 02/13/2022 [id number] / [id number] / N/A Epifix Micronized Dehydrated Human Right: Foot SC [employer] Particulate Implanted: Qty: 1 on 08/29/2019 by Goyo Haji MD at [facility] 01/12/2025 04.037.131S / / [id number] Mm/125 Deg Ti Lynn Tfna 400 Left: Hip Synthe s Mm/Left - Sterile Implanted: Qty: 1 on 02/26/2020 by Deandra Morales MD at [facility] Procedures Comments Procedure Name Priority Date/Time [...] METER Routine 04/14/2020 7:10 PM CDT SARS-COV2/RT-PCR ([facility] & STAT 04/14/2020 REF LABS) 6:29 PM [...] ms QTC Calculatio n(Bazett) 467 ms P [place] 56 degrees R [place] -23 degrees T [place] 70 degrees Sinus rhythm with 1st degree [...] ms QTC Calculatio n(Bazett) 447 ms P [place] -74 degrees R [place] -53 degrees T [place] 70 degrees Unusual P axis, possible ectopic [...] ms QTC Calculatio n(Bazett) 428 ms P [place] 16 degrees R [place] 268 degrees T [place] 80 degrees Marked sinus bradycardi a Right [...] ms QTC Calculatio n(Bazett) 442 ms P [place] 47 degrees R [place] -33 degrees T [place] 86 degrees Sinus rhythm with 1st degree [...] CDT POCT-GLUCOSE METER Routine 09/19/2019 8:06 AM ICT CUSTOMER SUPPORT OFFICER POCT-GLUCOSE METER Routine 09/18/2019 9:00 PM ICT CUSTOMER SUPPORT OFFICER POCT-GLUCOSE METER Routine 09/18/2019 4:49 PM ICT CUSTOMER SUPPORT OFFICER HEMODIALYSIS INPATIENT Routine 09/18/2019 3:25 PM ICT CUSTOMER SUPPORT OFFICER POCT-GLUCOSE METER Routine 09/18/2019 11:36 AM ICT CUSTOMER SUPPORT OFFICER POCT-GLUCOSE METER Routine 09/18/2019 7:37 AM ICT CUSTOMER SUPPORT OFFICER POCT-GLUCOSE METER Routine 09/17/2019 10:11 PM ICT CUSTOMER SUPPORT OFFICER POCT-GLUCOSE METER Routine 09/17/2019 4:27 PM ICT CUSTOMER SUPPORT OFFICER POCT-GLUCOSE METER Routine 09/17/2019 7:42 AM ICT CUSTOMER SUPPORT OFFICER POCT-GLUCOSE METER Routine 09/16/2019 8:29 PM ICT CUSTOMER SUPPORT OFFICER POCT-GLUCOSE METER Routine 09/16/2019 5:15 PM ICT CUSTOMER SUPPORT OFFICER POCT-GLUCOSE METER Routine 09/16/2019 11:21 AM ICT CUSTOMER SUPPORT OFFICER HEMODIALYSIS INPATIENT Routine 09/16/2019 9:43 AM ICT CUSTOMER SUPPORT OFFICER CBC W/PLT COUNT & AUTO Routine 09/16/2019 DIFFERENTIAL 4:13 AM ICT CUSTOMER SUPPORT OFFICER BASIC METABOLIC PANEL (7) Routine 09/16/2019 4:13 AM ICT CUSTOMER SUPPORT OFFICER CBC W/PLT COUNT & AUTO Routine 09/16/2019 DIFFERENTIAL 4:13 AM ICT CUSTOMER SUPPORT OFFICER POCT-GLUCOSE METER Routine 09/15/2019 9:13 PM ICT CUSTOMER SUPPORT OFFICER POCT-GLUCOSE METER Routine 09/15/2019 6:06 PM ICT CUSTOMER SUPPORT OFFICER POCT-GLUCOSE METER Routine 09/15/2019 12:01 PM ICT CUSTOMER SUPPORT OFFICER POCT-GLUCOSE METER Routine 09/15/2019 8:05 AM ICT CUSTOMER SUPPORT OFFICER POCT-GLUCOSE METER Routine 09/14/2019 8:38 PM ICT CUSTOMER SUPPORT OFFICER POCT-GLUCOSE METER Routine 09/14/2019 4:31 PM ICT CUSTOMER SUPPORT OFFICER POCT-GLUCOSE METER Routine 09/14/2019 11:26 AM ICT CUSTOMER SUPPORT OFFICER POCT-GLUCOSE METER Routine 09/14/2019 5:49 AM ICT CUSTOMER SUPPORT OFFICER PHOSPHORUS Routine 09/13/2019 3:08 PM ICT CUSTOMER SUPPORT OFFICER HEMOGLOBIN AND HEMATOCRIT Routine 09/13/2019 3:08 PM ICT CUSTOMER SUPPORT OFFICER BASIC METABOLIC PANEL (7) Routine 09/13/2019 3:08 PM ICT CUSTOMER SUPPORT OFFICER POCT-GLUCOSE METER Routine 09/13/2019 11:14 AM ICT CUSTOMER SUPPORT OFFICER POCT-GLUCOSE METER Routine 09/13/2019 6:58 AM ICT CUSTOMER SUPPORT OFFICER HEPATITIS B SURFACE Routine 09/13/2019 ANTIGEN 4:47 AM ICT CUSTOMER SUPPORT OFFICER POCT-GLUCOSE METER Routine 09/12/2019 8:45 PM ICT CUSTOMER SUPPORT OFFICER POCT-GLUCOSE METER Routine 09/12/2019 4:36 PM ICT CUSTOMER SUPPORT OFFICER POCT-GLUCOSE METER Routine 09/12/2019 12:15 PM ICT CUSTOMER SUPPORT OFFICER POCT-GLUCOSE METER Routine 09/12/2019 7:12 AM ICT CUSTOMER SUPPORT OFFICER POCT-GLUCOSE METER Routine 09/11/2019 9:50 PM ICT CUSTOMER SUPPORT OFFICER HEMODIALYSIS INPATIENT Routine 09/11/2019 3:34 PM ICT CUSTOMER SUPPORT OFFICER POCT-GLUCOSE METER Routine 09/11/2019 7:43 AM ICT CUSTOMER SUPPORT OFFICER POCT-GLUCOSE METER Routine 09/10/2019 9:34 PM ICT CUSTOMER SUPPORT OFFICER POCT-GLUCOSE METER Routine 09/10/2019 6:08 PM ICT CUSTOMER SUPPORT OFFICER RHYTHM STRIP - SCAN 09/10/2019 2:00 PM ICT CUSTOMER SUPPORT OFFICER POCT-GLUCOSE METER Routine 09/10/2019 11:51 AM ICT CUSTOMER SUPPORT OFFICER POCT-GLUCOSE METER Routine 09/10/2019 8:52 AM ICT CUSTOMER SUPPORT OFFICER PHOSPHORUS Routine 09/10/2019 4:33 AM ICT CUSTOMER SUPPORT OFFICER BASIC METABOLIC PANEL (7) Routine 09/10/2019 4:33 AM ICT CUSTOMER SUPPORT OFFICER POCT-GLUCOSE METER Routine 09/09/2019 8:35 PM ICT CUSTOMER SUPPORT OFFICER HEMODIALYSIS INPATIENT Routine 09/09/2019 12:23 PM ICT CUSTOMER SUPPORT OFFICER RHYTHM STRIP - SCAN 09/09/2019 10:31 AM ICT CUSTOMER SUPPORT OFFICER POCT-GLUCOSE METER Routine 09/09/2019 10:08 AM ICT CUSTOMER SUPPORT OFFICER POCT-GLUCOSE METER Routine 09/08/2019 8:30 PM ICT CUSTOMER SUPPORT OFFICER POCT-GLUCOSE METER Routine 09/08/2019 4:26 PM ICT CUSTOMER SUPPORT OFFICER POCT-GLUCOSE METER Routine 09/08/2019 12:11 PM ICT CUSTOMER SUPPORT OFFICER POCT-GLUCOSE METER Routine 09/08/2019 8:29 AM ICT CUSTOMER SUPPORT OFFICER PHOSPHORUS Routine 09/08/2019 5:37 AM ICT CUSTOMER SUPPORT OFFICER POCT-GLUCOSE METER Routine 09/07/2019 9:26 PM ICT CUSTOMER SUPPORT OFFICER POCT-GLUCOSE METER Routine 09/07/2019 6:10 PM ICT CUSTOMER SUPPORT OFFICER CBC W/PLT COUNT & AUTO Routine 09/07/2019 DIFFERENTIAL 4:27 AM ICT CUSTOMER SUPPORT OFFICER MAGNESIUM Routine 09/07/2019 4:27 AM ICT CUSTOMER SUPPORT OFFICER CBC W/PLT COUNT & AUTO Routine 09/07/2019 DIFFERENTIAL 4:27 AM ICT CUSTOMER SUPPORT OFFICER BASIC METABOLIC PANEL (7) Routine 09/07/2019 4:27 AM ICT CUSTOMER SUPPORT OFFICER PHOSPHORUS Routine 09/07/2019 4:27 AM ICT CUSTOMER SUPPORT OFFICER POCT-GLUCOSE METER Routine 09/06/2019 9:23 PM ICT CUSTOMER SUPPORT OFFICER POCT-GLUCOSE METER Routine 09/06/2019 12:22 PM ICT CUSTOMER SUPPORT OFFICER POCT-GLUCOSE METER Routine 09/06/2019 7:22 AM ICT CUSTOMER SUPPORT OFFICER CBC W/PLT COUNT & AUTO Routine 09/06/2019 DIFFERENTIAL 4:08 AM ICT CUSTOMER SUPPORT OFFICER CBC W/PLT COUNT & AUTO Routine 09/06/2019 DIFFERENTIAL 4:08 AM ICT CUSTOMER SUPPORT OFFICER PHOSPHORUS Routine 09/06/2019 4:08 AM ICT CUSTOMER SUPPORT OFFICER MAGNESIUM Routine 09/06/2019 4:08 AM ICT CUSTOMER SUPPORT OFFICER BASIC METABOLIC PANEL (7) Routine 09/06/2019 4:08 AM ICT CUSTOMER SUPPORT OFFICER POCT-GLUCOSE METER Routine 09/05/2019 10:45 PM ICT CUSTOMER SUPPORT OFFICER CT BRAIN WITHOUT IV STAT 09/05/2019 CONTRAST 5:42 PM ICT CUSTOMER SUPPORT OFFICER XR CHEST PA OR AP 1 VIEW STAT 09/05/2019 IN DEPT. 5:27 PM ICT CUSTOMER SUPPORT OFFICER CRITICAL CARE Routine 09/05/2019 5:05 PM ICT CUSTOMER SUPPORT OFFICER URINALYSIS W/ REFLEX STAT 09/05/2019 URINE CULTURE 4:38 PM ICT CUSTOMER SUPPORT OFFICER URINE CULTURE STAT 09/05/2019 4:38 PM ICT CUSTOMER SUPPORT OFFICER CBC W/PLT COUNT & AUTO STAT 09/05/2019 DIFFERENTIAL 3:32 PM ICT CUSTOMER SUPPORT OFFICER TROPONIN I STAT 09/05/2019 3:32 PM ICT CUSTOMER SUPPORT OFFICER PT/APTT STAT 09/05/2019 3:32 PM ICT CUSTOMER SUPPORT OFFICER CBC W/PLT COUNT & AUTO STAT 09/05/2019 DIFFERENTIAL 3:32 PM ICT CUSTOMER SUPPORT OFFICER LIPASE STAT 09/05/2019 3:32 PM ICT CUSTOMER SUPPORT OFFICER AMYLASE STAT 09/05/2019 3:32 PM ICT CUSTOMER SUPPORT OFFICER HEPATIC FUNCTION PANEL STAT 09/05/2019 3:32 PM ICT CUSTOMER SUPPORT OFFICER BASIC METABOLIC PANEL (7) STAT 09/05/2019 3:32 PM ICT CUSTOMER SUPPORT OFFICER ECG 12-LEAD Routine 09/05/2019 3:17 PM ICT CUSTOMER SUPPORT OFFICER Procedure Note - Interface, External Ris In - 09/06/2019 12:28 AM ICT CUSTOMER SUPPORT OFFICER Ventricula r Rate 68 BPM Atrial Rate 68 BPM P-R Interval 220 ms QRS Duration 78 ms Q-T Interval 402 ms QTC Calculatio n(Bazett) 427 ms P [place] 62 degrees R [place] 1 degrees T [place] 83 degrees Sinus rhythm with sinus arrhythmia with 1st degree A-V block Anterior infarct (cited on or before 0) Abnormal ECG When compared with ECG of 0 15:20, No significan t change was found ECG 12-LEAD STAT 09/05/2019 3:17 PM ICT CUSTOMER SUPPORT OFFICER POCT-GLUCOSE METER Routine 09/03/2019 5:27 PM ICT CUSTOMER SUPPORT OFFICER POCT-GLUCOSE METER Routine 09/03/2019 11:25 AM ICT CUSTOMER SUPPORT OFFICER POCT-GLUCOSE METER Routine 09/03/2019 7:38 AM ICT CUSTOMER SUPPORT OFFICER BASIC METABOLIC PANEL (7) Routine 09/03/2019 5:39 AM ICT CUSTOMER SUPPORT OFFICER POCT-GLUCOSE METER Routine 09/02/2019 8:30 PM ICT CUSTOMER SUPPORT OFFICER POCT-GLUCOSE METER Routine 09/02/2019 6:16 PM ICT CUSTOMER SUPPORT OFFICER HEMODIALYSIS INPATIENT Routine 09/02/2019 5:42 PM ICT CUSTOMER SUPPORT OFFICER BASIC METABOLIC PANEL (7) Routine 09/02/2019 1:05 PM ICT CUSTOMER SUPPORT OFFICER POCT-GLUCOSE METER Routine 09/02/2019 11:09 AM ICT CUSTOMER SUPPORT OFFICER POCT-GLUCOSE METER Routine 09/02/2019 7:32 AM ICT CUSTOMER SUPPORT OFFICER POCT-GLUCOSE METER Routine 09/02/2019 12:12 AM ICT CUSTOMER SUPPORT OFFICER POCT-GLUCOSE METER Routine 09/01/2019 9:41 PM ICT CUSTOMER SUPPORT OFFICER POCT-GLUCOSE METER Routine 09/01/2019 8:23 PM ICT CUSTOMER SUPPORT OFFICER POCT-GLUCOSE METER Routine 09/01/2019 6:39 PM ICT CUSTOMER SUPPORT OFFICER POCT-GLUCOSE METER Routine 09/01/2019 6:13 PM ICT CUSTOMER SUPPORT OFFICER POCT-GLUCOSE METER Routine 09/01/2019 5:18 PM ICT CUSTOMER SUPPORT OFFICER POCT-GLUCOSE METER Routine 09/01/2019 12:07 PM ICT CUSTOMER SUPPORT OFFICER POCT-GLUCOSE METER Routine 09/01/2019 7:25 AM ICT CUSTOMER SUPPORT OFFICER POCT-GLUCOSE METER Routine 08/31/2019 10:05 PM ICT CUSTOMER SUPPORT OFFICER POCT-GLUCOSE METER Routine 08/31/2019 5:36 PM ICT CUSTOMER SUPPORT OFFICER POCT-GLUCOSE METER Routine 08/31/2019 11:14 AM ICT CUSTOMER SUPPORT OFFICER POCT-GLUCOSE METER Routine 08/31/2019 9:20 AM ICT CUSTOMER SUPPORT OFFICER POCT-GLUCOSE METER Routine 08/31/2019 4:27 AM ICT CUSTOMER SUPPORT OFFICER POCT-GLUCOSE METER Routine 08/30/2019 9:53 PM ICT CUSTOMER SUPPORT OFFICER TRANSFUSION SERVICE 08/30/2019 REPORT - SCAN 5:51 PM ICT CUSTOMER SUPPORT OFFICER POCT-GLUCOSE METER Routine 08/30/2019 4:21 PM ICT CUSTOMER SUPPORT OFFICER POCT-GLUCOSE METER Routine 08/30/2019 1:40 PM ICT CUSTOMER SUPPORT OFFICER HEMODIALYSIS INPATIENT Routine 08/30/2019 11:55 AM ICT CUSTOMER SUPPORT OFFICER CBC W/PLT COUNT & AUTO Routine 08/30/2019 DIFFERENTIAL 4:54 AM ICT CUSTOMER SUPPORT OFFICER IRON, TIBC, % SAT. Routine 08/30/2019 (WITHOUT FERRITIN) 4:54 AM ICT CUSTOMER SUPPORT OFFICER FERRITIN Routine 08/30/2019 4:54 AM ICT CUSTOMER SUPPORT OFFICER PHOSPHORUS Routine 08/30/2019 4:54 AM ICT CUSTOMER SUPPORT OFFICER CBC W/PLT COUNT & AUTO Routine 08/30/2019 DIFFERENTIAL 4:54 AM ICT CUSTOMER SUPPORT OFFICER BASIC METABOLIC PANEL (7) Routine 08/30/2019 4:54 AM ICT CUSTOMER SUPPORT OFFICER POCT-GLUCOSE METER Routine 08/29/2019 10:22 PM ICT CUSTOMER SUPPORT OFFICER POCT-GLUCOSE METER Routine 08/29/2019 5:49 PM ICT CUSTOMER SUPPORT OFFICER POCT-GLUCOSE METER Routine 08/29/2019 3:17 PM ICT CUSTOMER SUPPORT OFFICER TISSUE EXAM AP Routine 08/29/2019 2:09 PM ICT CUSTOMER SUPPORT OFFICER AMPUTATION,FOOT 08/29/2019 Gangrene of right f oot 1:15 PM ICT CUSTOMER SUPPORT OFFICER (HCC) POTASSIUM-STAT LAB STAT 08/29/2019 1:13 PM ICT CUSTOMER SUPPORT OFFICER RRL CRITICAL LABS STAT 08/29/2019 (ABG,NA,K,H&H,GLUCOSE) 1:13 PM ICT CUSTOMER SUPPORT OFFICER TYPE AND SCREEN, STAT 08/29/2019 AUTOMATED 12:36 PM ICT CUSTOMER SUPPORT OFFICER BASIC METABOLIC PANEL (7) STAT 08/29/2019 11:28 AM ICT CUSTOMER SUPPORT OFFICER POCT-HEMOGLOBIN METER Routine 08/29/2019 10:25 AM ICT CUSTOMER SUPPORT OFFICER POCT-GLUCOSE METER Routine 08/29/2019 10:22 AM ICT CUSTOMER SUPPORT OFFICER REPORT OF PROCEDURE - 08/18/2019 ENDOSCOPY SCAN 5:20 PM ICT CUSTOMER SUPPORT OFFICER RHYTHM STRIP - SCAN 08/18/2019 9:23 AM ICT CUSTOMER SUPPORT OFFICER POCT-GLUCOSE METER Routine 08/15/2019 11:12 AM ICT CUSTOMER SUPPORT OFFICER POCT-GLUCOSE METER Routine 08/15/2019 8:04 AM ICT CUSTOMER SUPPORT OFFICER HEMOGLOBIN A1C Routine 08/15/2019 3:42 AM ICT CUSTOMER SUPPORT OFFICER BASIC METABOLIC PANEL (7) Routine 08/15/2019 3:42 AM ICT CUSTOMER SUPPORT OFFICER HEMODIALYSIS INPATIENT Routine 08/15/2019 12:08 AM ICT CUSTOMER SUPPORT OFFICER POCT-GLUCOSE METER Routine 08/14/2019 11:34 PM ICT CUSTOMER SUPPORT OFFICER HEPATITIS B SURFACE BERNICE 08/14/2019 ANTIGEN 8:43 PM ICT CUSTOMER SUPPORT OFFICER POCT-GLUCOSE METER Routine 08/14/2019 6:05 PM ICT CUSTOMER SUPPORT OFFICER B-TYPE NATRIURETIC FACTOR STAT 08/14/2019 (BNP) 4:29 PM ICT CUSTOMER SUPPORT OFFICER BLOOD GAS, VENOUS STAT 08/14/2019 4:29 PM ICT CUSTOMER SUPPORT OFFICER BLOOD CULTURE STAT 08/14/2019 4:20 PM ICT CUSTOMER SUPPORT OFFICER XR CHEST 1 VIEW STAT 08/14/2019 PORTABLE/BEDSIDE 3:48 PM ICT CUSTOMER SUPPORT OFFICER CBC W/PLT COUNT & AUTO STAT 08/14/2019 DIFFERENTIAL 3:40 PM ICT CUSTOMER SUPPORT OFFICER TROPONIN I STAT 08/14/2019 3:40 PM ICT CUSTOMER SUPPORT OFFICER CREATINE KINASE (CK) STAT 08/14/2019 3:40 PM ICT CUSTOMER SUPPORT OFFICER PT/APTT STAT 08/14/2019 3:40 PM ICT CUSTOMER SUPPORT OFFICER HEPATIC FUNCTION PANEL STAT 08/14/2019 3:40 PM ICT CUSTOMER SUPPORT OFFICER C-REACTIVE PROTEIN STAT 08/14/2019 3:40 PM ICT CUSTOMER SUPPORT OFFICER LACTIC ACID, VENOUS STAT 08/14/2019 3:40 PM ICT CUSTOMER SUPPORT OFFICER CBC W/PLT COUNT & AUTO STAT 08/14/2019 DIFFERENTIAL 3:40 PM ICT CUSTOMER SUPPORT OFFICER MAGNESIUM STAT 08/14/2019 3:40 PM ICT CUSTOMER SUPPORT OFFICER BASIC METABOLIC PANEL (7) STAT 08/14/2019 3:40 PM ICT CUSTOMER SUPPORT OFFICER BLOOD CULTURE STAT 08/14/2019 3:40 PM ICT CUSTOMER SUPPORT OFFICER ECG 12-LEAD Routine 08/14/2019 3:20 PM ICT CUSTOMER SUPPORT OFFICER Procedure Note - Interface, External Ris In - 08/14/2019 5:40 PM ICT CUSTOMER SUPPORT OFFICER Ventricula r Rate 68 BPM Atrial Rate 68 BPM P-R Interval 222 ms QRS Duration 84 ms Q-T Interval 442 ms QTC Calculatio n(Bazett) 469 ms P [place] 65 degrees R [place] -44 degrees T [place] 88 degrees Sinus rhythm with 1st degree A-V block Left axis deviation Anterolate ral infarct , age undetermin ed Abnormal ECG When compared with ECG of 6 08:44, QRS axis Shifted left Anterior infarct is now Present Anterolate ral infarct is now Present ECG 12-LEAD STAT 08/14/2019 3:20 PM ICT CUSTOMER SUPPORT OFFICER ED ECG INTERPRETATION Routine 08/14/2019 3:18 PM ICT CUSTOMER SUPPORT OFFICER RHYTHM STRIP - SCAN 07/30/2019 11:04 AM ICT CUSTOMER SUPPORT OFFICER RHYTHM STRIP - SCAN 07/18/2019 8:20 AM ICT CUSTOMER SUPPORT OFFICER REPORT OF PROCEDURE - 07/18/2019 ENDOSCOPY SCAN 8:20 AM ICT CUSTOMER SUPPORT OFFICER CARDIAC CATH REPORT - 07/18/2019 SCAN 8:20 AM ICT CUSTOMER SUPPORT OFFICER VASCULAR DIAGRAM -SCAN 07/18/2019 8:20 AM ICT CUSTOMER SUPPORT OFFICER POCT-GLUCOSE METER Routine 07/11/2019 12:26 PM ICT CUSTOMER SUPPORT OFFICER CBC W/PLT COUNT & AUTO Routine 07/11/2019 DIFFERENTIAL 10:25 AM ICT CUSTOMER SUPPORT OFFICER CBC W/PLT COUNT & AUTO Routine 07/11/2019 DIFFERENTIAL 10:25 AM ICT CUSTOMER SUPPORT OFFICER POCT-GLUCOSE METER Routine 07/11/2019 8:48 AM ICT CUSTOMER SUPPORT OFFICER POCT-GLUCOSE METER Routine 07/10/2019 9:16 PM ICT CUSTOMER SUPPORT OFFICER POCT-GLUCOSE METER Routine 07/10/2019 4:23 PM ICT CUSTOMER SUPPORT OFFICER POCT-GLUCOSE METER Routine 07/10/2019 1:10 PM ICT CUSTOMER SUPPORT OFFICER HEMODIALYSIS INPATIENT Routine 07/10/2019 11:55 AM ICT CUSTOMER SUPPORT OFFICER POCT-GLUCOSE METER Routine 07/10/2019 10:09 AM ICT CUSTOMER SUPPORT OFFICER CBC W/PLT COUNT & AUTO Routine 07/10/2019 DIFFERENTIAL 8:11 AM ICT CUSTOMER SUPPORT OFFICER PHOSPHORUS Routine 07/10/2019 8:11 AM ICT CUSTOMER SUPPORT OFFICER MAGNESIUM Routine 07/10/2019 8:11 AM ICT CUSTOMER SUPPORT OFFICER CBC W/PLT COUNT & AUTO Routine 07/10/2019 DIFFERENTIAL 8:11 AM ICT CUSTOMER SUPPORT OFFICER BASIC METABOLIC PANEL (7) Routine 07/10/2019 8:11 AM ICT CUSTOMER SUPPORT OFFICER POCT-GLUCOSE METER Routine 07/09/2019 9:19 PM ICT CUSTOMER SUPPORT OFFICER POCT-GLUCOSE METER Routine 07/09/2019 4:53 PM ICT CUSTOMER SUPPORT OFFICER POCT-GLUCOSE METER Routine 07/09/2019 11:44 AM ICT CUSTOMER SUPPORT OFFICER POCT-GLUCOSE METER Routine 07/09/2019 8:18 AM ICT CUSTOMER SUPPORT OFFICER CBC W/PLT COUNT & AUTO Routine 07/09/2019 DIFFERENTIAL 4:15 AM ICT CUSTOMER SUPPORT OFFICER VANCOMYCIN LEVEL, TROUGH Timed 07/09/2019 4:15 AM ICT CUSTOMER SUPPORT OFFICER CBC W/PLT COUNT & AUTO Routine 07/09/2019 DIFFERENTIAL 4:15 AM ICT CUSTOMER SUPPORT OFFICER PROCALCITONIN Routine 07/09/2019 4:14 AM ICT CUSTOMER SUPPORT OFFICER PHOSPHORUS Routine 07/09/2019 4:14 AM ICT CUSTOMER SUPPORT OFFICER MAGNESIUM Routine 07/09/2019 4:14 AM ICT CUSTOMER SUPPORT OFFICER BASIC METABOLIC PANEL (7) Routine 07/09/2019 4:14 AM ICT CUSTOMER SUPPORT OFFICER POCT-GLUCOSE METER Routine 07/08/2019 9:03 PM ICT CUSTOMER SUPPORT OFFICER POCT-GLUCOSE METER Routine 07/08/2019 6:16 PM ICT CUSTOMER SUPPORT OFFICER XR CHEST 1 VIEW BERNICE 07/08/2019 PORTABLE/BEDSIDE 5:55 PM ICT CUSTOMER SUPPORT OFFICER BLOOD CULTURE Routine 07/08/2019 4:44 PM ICT CUSTOMER SUPPORT OFFICER C. DIFFICILE GDH TOXIN Routine 07/08/2019 1:14 PM ICT CUSTOMER SUPPORT OFFICER POCT-GLUCOSE METER Routine 07/08/2019 12:06 PM ICT CUSTOMER SUPPORT OFFICER HEMODIALYSIS INPATIENT Routine 07/08/2019 11:27 AM ICT CUSTOMER SUPPORT OFFICER CBC W/PLT COUNT & AUTO BERNICE 07/08/2019 DIFFERENTIAL 10:34 AM ICT CUSTOMER SUPPORT OFFICER CBC W/PLT COUNT & AUTO BERNICE 07/08/2019 DIFFERENTIAL 10:34 AM ICT CUSTOMER SUPPORT OFFICER POCT-GLUCOSE METER Routine 07/08/2019 9:27 AM ICT CUSTOMER SUPPORT OFFICER CBC W/PLT COUNT & AUTO Routine 07/08/2019 DIFFERENTIAL 6:22 AM ICT CUSTOMER SUPPORT OFFICER PHOSPHORUS Routine 07/08/2019 6:22 AM ICT CUSTOMER SUPPORT OFFICER MAGNESIUM Routine 07/08/2019 6:22 AM ICT CUSTOMER SUPPORT OFFICER CBC W/PLT COUNT & AUTO Routine 07/08/2019 DIFFERENTIAL 6:22 AM ICT CUSTOMER SUPPORT OFFICER BASIC METABOLIC PANEL (7) Routine 07/08/2019 6:22 AM ICT CUSTOMER SUPPORT OFFICER POCT-GLUCOSE METER Routine 07/08/2019 1:19 AM ICT CUSTOMER SUPPORT OFFICER POCT-GLUCOSE METER Routine 07/07/2019 9:10 PM ICT CUSTOMER SUPPORT OFFICER POCT-GLUCOSE METER Routine 07/07/2019 4:47 PM ICT CUSTOMER SUPPORT OFFICER POCT-GLUCOSE METER Routine 07/07/2019 7:31 AM ICT CUSTOMER SUPPORT OFFICER CBC W/PLT COUNT & AUTO Routine 07/07/2019 DIFFERENTIAL 5:11 AM ICT CUSTOMER SUPPORT OFFICER CBC W/PLT COUNT & AUTO Routine 07/07/2019 DIFFERENTIAL 5:11 AM ICT CUSTOMER SUPPORT OFFICER BASIC METABOLIC PANEL (7) Routine 07/07/2019 5:11 AM ICT CUSTOMER SUPPORT OFFICER POCT-GLUCOSE METER Routine 07/06/2019 9:52 PM ICT CUSTOMER SUPPORT OFFICER POCT-GLUCOSE METER Routine 07/06/2019 5:24 PM ICT CUSTOMER SUPPORT OFFICER POCT-GLUCOSE METER Routine 07/06/2019 12:17 PM ICT CUSTOMER SUPPORT OFFICER CBC W/PLT COUNT & AUTO Routine 07/06/2019 DIFFERENTIAL 11:04 AM ICT CUSTOMER SUPPORT OFFICER CBC W/PLT COUNT & AUTO Routine 07/06/2019 DIFFERENTIAL 11:04 AM ICT CUSTOMER SUPPORT OFFICER BASIC METABOLIC PANEL (7) Routine 07/06/2019 11:04 AM ICT CUSTOMER SUPPORT OFFICER POCT-GLUCOSE METER Routine 07/06/2019 7:39 AM ICT CUSTOMER SUPPORT OFFICER POCT-GLUCOSE METER Routine 07/05/2019 9:12 PM ICT CUSTOMER SUPPORT OFFICER HEMODIALYSIS INPATIENT Routine 07/05/2019 6:01 PM ICT CUSTOMER SUPPORT OFFICER POCT-GLUCOSE METER Routine 07/05/2019 1:34 PM ICT CUSTOMER SUPPORT OFFICER CBC W/PLT COUNT & AUTO Routine 07/05/2019 DIFFERENTIAL 9:04 AM ICT CUSTOMER SUPPORT OFFICER CBC W/PLT COUNT & AUTO Routine 07/05/2019 DIFFERENTIAL 9:04 AM ICT CUSTOMER SUPPORT OFFICER POCT-GLUCOSE METER Routine 07/05/2019 8:35 AM ICT CUSTOMER SUPPORT OFFICER BASIC METABOLIC PANEL (7) Routine 07/05/2019 5:57 AM ICT CUSTOMER SUPPORT OFFICER POCT-GLUCOSE METER Routine 07/04/2019 10:36 PM ICT CUSTOMER SUPPORT OFFICER TRANSFUSION SERVICE 07/04/2019 REPORT - SCAN 6:01 PM ICT CUSTOMER SUPPORT OFFICER POCT-GLUCOSE METER Routine 07/04/2019 5:11 PM ICT CUSTOMER SUPPORT OFFICER VASCULAR DIAGRAM -SCAN 07/04/2019 2:40 PM ICT CUSTOMER SUPPORT OFFICER POCT-GLUCOSE METER Routine 07/04/2019 12:20 PM ICT CUSTOMER SUPPORT OFFICER POCT-GLUCOSE METER Routine 07/04/2019 8:01 AM ICT CUSTOMER SUPPORT OFFICER CBC W/PLT COUNT & AUTO Routine 07/04/2019 DIFFERENTIAL 5:36 AM ICT CUSTOMER SUPPORT OFFICER CBC W/PLT COUNT & AUTO Routine 07/04/2019 DIFFERENTIAL 5:36 AM ICT CUSTOMER SUPPORT OFFICER BASIC METABOLIC PANEL (7) Routine 07/04/2019 5:36 AM ICT CUSTOMER SUPPORT OFFICER PREPARE LEUKO-REDUCED RBC Routine 07/03/2019 11:54 PM ICT CUSTOMER SUPPORT OFFICER POCT-GLUCOSE METER Routine 07/03/2019 9:12 PM ICT CUSTOMER SUPPORT OFFICER TRANSFUSION SERVICE 07/03/2019 REPORT - SCAN 6:01 PM ICT CUSTOMER SUPPORT OFFICER POCT-GLUCOSE METER Routine 07/03/2019 4:52 PM ICT CUSTOMER SUPPORT OFFICER CT BRAIN WITHOUT IV Routine 07/03/2019 CONTRAST 12:45 PM ICT CUSTOMER SUPPORT OFFICER HEMODIALYSIS INPATIENT Routine 07/03/2019 8:48 AM ICT CUSTOMER SUPPORT OFFICER POCT-GLUCOSE METER Routine 07/03/2019 5:16 AM ICT CUSTOMER SUPPORT OFFICER CBC W/PLT COUNT & AUTO Routine 07/03/2019 DIFFERENTIAL 5:12 AM ICT CUSTOMER SUPPORT OFFICER LIPID PANEL Routine 07/03/2019 5:12 AM ICT CUSTOMER SUPPORT OFFICER CBC W/PLT COUNT & AUTO Routine 07/03/2019 DIFFERENTIAL 5:12 AM ICT CUSTOMER SUPPORT OFFICER BASIC METABOLIC PANEL (7) Routine 07/03/2019 5:12 AM ICT CUSTOMER SUPPORT OFFICER HEMOGLOBIN AND HEMATOCRIT Routine 07/02/2019 6:47 PM ICT CUSTOMER SUPPORT OFFICER TRANSFUSION SERVICE 07/02/2019 REPORT - SCAN 6:01 PM ICT CUSTOMER SUPPORT OFFICER POCT-GLUCOSE METER Routine 07/02/2019 4:21 PM ICT CUSTOMER SUPPORT OFFICER TRANSFUSE LEUKO-REDUCED Routine 07/02/2019 RED BLOOD CELLS 1:47 PM ICT CUSTOMER SUPPORT OFFICER EEG AWAKE AND DROWSY Routine 07/02/2019 10:52 AM ICT CUSTOMER SUPPORT OFFICER POCT-GLUCOSE METER Routine 07/02/2019 10:01 AM ICT CUSTOMER SUPPORT OFFICER POCT-GLUCOSE METER Routine 07/02/2019 5:53 AM ICT CUSTOMER SUPPORT OFFICER CBC W/PLT COUNT & AUTO Routine 07/02/2019 DIFFERENTIAL 4:09 AM ICT CUSTOMER SUPPORT OFFICER FERRITIN Routine 07/02/2019 4:09 AM ICT CUSTOMER SUPPORT OFFICER IRON, TIBC, % SAT. Routine 07/02/2019 (WITHOUT FERRITIN) 4:09 AM ICT CUSTOMER SUPPORT OFFICER PTH, INTACT Routine 07/02/2019 4:09 AM ICT CUSTOMER SUPPORT OFFICER CBC W/PLT COUNT & AUTO Routine 07/02/2019 DIFFERENTIAL 4:09 AM ICT CUSTOMER SUPPORT OFFICER BASIC METABOLIC PANEL (7) Routine 07/02/2019 4:09 AM ICT CUSTOMER SUPPORT OFFICER POCT-GLUCOSE METER Routine 07/01/2019 11:16 PM ICT CUSTOMER SUPPORT OFFICER POCT-GLUCOSE METER Routine 07/01/2019 6:08 PM ICT CUSTOMER SUPPORT OFFICER TRANSFUSION SERVICE 07/01/2019 REPORT - SCAN 6:03 PM ICT CUSTOMER SUPPORT OFFICER TYPE AND SCREEN, Routine 07/01/2019 AUTOMATED 5:06 PM ICT CUSTOMER SUPPORT OFFICER HEMOGLOBIN AND HEMATOCRIT Routine 07/01/2019 4:43 PM ICT CUSTOMER SUPPORT OFFICER POCT-GLUCOSE METER Routine 07/01/2019 12:52 PM ICT CUSTOMER SUPPORT OFFICER POCT-GLUCOSE METER Routine 07/01/2019 8:41 AM ICT CUSTOMER SUPPORT OFFICER CBC W/PLT COUNT & AUTO Routine 07/01/2019 DIFFERENTIAL 3:26 AM ICT CUSTOMER SUPPORT OFFICER CBC W/PLT COUNT & AUTO Routine 07/01/2019 DIFFERENTIAL 3:26 AM ICT CUSTOMER SUPPORT OFFICER BASIC METABOLIC PANEL (7) Routine 07/01/2019 3:26 AM ICT CUSTOMER SUPPORT OFFICER HEMOGLOBIN AND HEMATOCRIT Routine 07/01/2019 12:23 AM ICT CUSTOMER SUPPORT OFFICER PREPARE LEUKO-REDUCED RBC Routine 06/30/2019 11:54 PM ICT CUSTOMER SUPPORT OFFICER PERIPHERAL VASCULAR 06/30/2019 REPORT - SCAN 9:23 PM ICT CUSTOMER SUPPORT OFFICER HEMOGLOBIN AND HEMATOCRIT Routine 06/30/2019 7:01 PM ICT CUSTOMER SUPPORT OFFICER POCT-GLUCOSE METER Routine 06/30/2019 6:33 PM ICT CUSTOMER SUPPORT OFFICER TRANSFUSION SERVICE 06/30/2019 REPORT - SCAN 6:01 PM ICT CUSTOMER SUPPORT OFFICER HEMODIALYSIS INPATIENT Routine 06/30/2019 1:57 PM ICT CUSTOMER SUPPORT OFFICER POCT-GLUCOSE METER Routine 06/30/2019 12:11 PM ICT CUSTOMER SUPPORT OFFICER HEMOGLOBIN AND HEMATOCRIT Routine 06/30/2019 11:12 AM ICT CUSTOMER SUPPORT OFFICER ECHO W CONTRAST & DOPPLER Routine 06/30/2019 11:06 AM ICT CUSTOMER SUPPORT OFFICER POCT-GLUCOSE METER Routine 06/30/2019 8:39 AM ICT CUSTOMER SUPPORT OFFICER CBC W/PLT COUNT & AUTO Routine 06/30/2019 DIFFERENTIAL 3:46 AM ICT CUSTOMER SUPPORT OFFICER CBC W/PLT COUNT & AUTO Routine 06/30/2019 DIFFERENTIAL 3:46 AM ICT CUSTOMER SUPPORT OFFICER BASIC METABOLIC PANEL (7) Routine 06/30/2019 3:46 AM ICT CUSTOMER SUPPORT OFFICER PHOSPHORUS Routine 06/30/2019 3:46 AM ICT CUSTOMER SUPPORT OFFICER MAGNESIUM Routine 06/30/2019 3:46 AM ICT CUSTOMER SUPPORT OFFICER HEMOGLOBIN AND HEMATOCRIT Routine 06/29/2019 11:54 PM ICT CUSTOMER SUPPORT OFFICER TRANSFUSE LEUKO-REDUCED Routine 06/29/2019 RED BLOOD CELLS 10:11 PM ICT CUSTOMER SUPPORT OFFICER POCT-GLUCOSE METER Routine 06/29/2019 6:37 PM ICT CUSTOMER SUPPORT OFFICER HEMOGLOBIN AND HEMATOCRIT Routine 06/29/2019 6:32 PM ICT CUSTOMER SUPPORT OFFICER TRANSFUSION SERVICE 06/29/2019 REPORT - SCAN 6:01 PM ICT CUSTOMER SUPPORT OFFICER CT BRAIN WITHOUT IV Routine 06/29/2019 CONTRAST 3:30 PM ICT CUSTOMER SUPPORT OFFICER PSEUDOANEURYSM GROIN Routine 06/29/2019 DOPPLER LEFT 11:53 AM ICT CUSTOMER SUPPORT OFFICER POCT-GLUCOSE METER Routine 06/29/2019 11:31 AM ICT CUSTOMER SUPPORT OFFICER HEMOGLOBIN AND HEMATOCRIT Routine 06/29/2019 11:10 AM ICT CUSTOMER SUPPORT OFFICER XR ABDOMEN / KUB 1 VIEW STAT 06/29/2019 9:24 AM ICT CUSTOMER SUPPORT OFFICER POCT-GLUCOSE METER Routine 06/29/2019 7:51 AM ICT CUSTOMER SUPPORT OFFICER BASIC METABOLIC PANEL (7) Routine 06/29/2019 3:37 AM ICT CUSTOMER SUPPORT OFFICER PHOSPHORUS Routine 06/29/2019 3:37 AM ICT CUSTOMER SUPPORT OFFICER MAGNESIUM Routine 06/29/2019 3:37 AM ICT CUSTOMER SUPPORT OFFICER CBC W/PLT COUNT & AUTO Routine 06/29/2019 DIFFERENTIAL 3:36 AM ICT CUSTOMER SUPPORT OFFICER CBC W/PLT COUNT & AUTO Routine 06/29/2019 DIFFERENTIAL 3:36 AM ICT CUSTOMER SUPPORT OFFICER POCT-GLUCOSE METER Routine 06/28/2019 11:49 PM ICT CUSTOMER SUPPORT OFFICER FIBRINOGEN Add-On 06/28/2019 11:28 PM ICT CUSTOMER SUPPORT OFFICER HEMOGLOBIN AND HEMATOCRIT Routine 06/28/2019 11:28 PM ICT CUSTOMER SUPPORT OFFICER APTT Routine 06/28/2019 11:28 PM ICT CUSTOMER SUPPORT OFFICER PROTHROMBIN TIME/INR Routine 06/28/2019 11:28 PM ICT CUSTOMER SUPPORT OFFICER HEMOGLOBIN A1C Routine 06/28/2019 11:28 PM ICT CUSTOMER SUPPORT OFFICER COMPREHENSIVE METABOLIC Routine 06/28/2019 PANEL 11:28 PM ICT CUSTOMER SUPPORT OFFICER PREPARE LEUKO-REDUCED RBC Routine 06/28/2019 9:43 PM ICT CUSTOMER SUPPORT OFFICER CBC W/PLT COUNT & AUTO Routine 06/28/2019 DIFFERENTIAL 8:40 PM ICT CUSTOMER SUPPORT OFFICER TYPE AND SCREEN, Routine 06/28/2019 AUTOMATED 8:40 PM ICT CUSTOMER SUPPORT OFFICER HEMOGLOBIN AND HEMATOCRIT Routine 06/28/2019 8:40 PM ICT CUSTOMER SUPPORT OFFICER CBC W/PLT COUNT & AUTO Routine 06/28/2019 DIFFERENTIAL 8:40 PM ICT CUSTOMER SUPPORT OFFICER CT/CTA CAROTID STAT 06/28/2019 4:44 PM ICT CUSTOMER SUPPORT OFFICER CTA BRAIN STAT 06/28/2019 4:44 PM ICT CUSTOMER SUPPORT OFFICER CT BRAIN/STROKE TEST STAT 06/28/2019 DESIGN 4:27 PM ICT CUSTOMER SUPPORT OFFICER POCT-GLUCOSE METER Routine 06/28/2019 3:35 PM ICT CUSTOMER SUPPORT OFFICER POCT-GLUCOSE METER Routine 06/28/2019 1:42 PM ICT CUSTOMER SUPPORT OFFICER CBC W/PLT COUNT & AUTO Routine 06/28/2019 DIFFERENTIAL 9:54 AM ICT CUSTOMER SUPPORT OFFICER CBC W/PLT COUNT & AUTO Routine 06/28/2019 DIFFERENTIAL 9:54 AM ICT CUSTOMER SUPPORT OFFICER PLATELET AGGREGATION: Routine 06/28/2019 FUNCTION SCREEN 9:50 AM ICT CUSTOMER SUPPORT OFFICER HEMODIALYSIS INPATIENT Routine 06/28/2019 9:16 AM ICT CUSTOMER SUPPORT OFFICER HEPATITIS B SURFACE Routine 06/28/2019 ANTIGEN 9:11 AM ICT CUSTOMER SUPPORT OFFICER POCT-GLUCOSE METER Routine 06/28/2019 7:29 AM ICT CUSTOMER SUPPORT OFFICER CBC W/PLT COUNT & AUTO Routine 06/28/2019 DIFFERENTIAL 4:44 AM ICT CUSTOMER SUPPORT OFFICER PHOSPHORUS Routine 06/28/2019 4:44 AM ICT CUSTOMER SUPPORT OFFICER MAGNESIUM Routine 06/28/2019 4:44 AM ICT CUSTOMER SUPPORT OFFICER BASIC METABOLIC PANEL (7) Routine 06/28/2019 4:44 AM ICT CUSTOMER SUPPORT OFFICER CBC W/PLT COUNT & AUTO Routine 06/28/2019 DIFFERENTIAL 4:44 AM ICT CUSTOMER SUPPORT OFFICER PLATELET AGGREGATION: Routine 06/28/2019 FUNCTION SCREEN 4:43 AM ICT CUSTOMER SUPPORT OFFICER POCT-GLUCOSE METER Routine 06/27/2019 10:48 PM ICT CUSTOMER SUPPORT OFFICER POCT-ACT Routine 06/27/2019 9:04 PM ICT CUSTOMER SUPPORT OFFICER POCT-ACT Routine 06/27/2019 7:39 PM ICT CUSTOMER SUPPORT OFFICER POCT-GLUCOSE METER Routine 06/27/2019 5:41 PM ICT CUSTOMER SUPPORT OFFICER POCT-ACT Routine 06/27/2019 3:48 PM ICT CUSTOMER SUPPORT OFFICER POCT-ACT Routine 06/27/2019 3:10 PM ICT CUSTOMER SUPPORT OFFICER POCT-ACT Routine 06/27/2019 2:38 PM ICT CUSTOMER SUPPORT OFFICER PERIPHERAL ANGIOS & IVUS 06/27/2019 PAD (periphe ral artery 1:26 PM ICT CUSTOMER SUPPORT OFFICER disease) (HCC) Case Notes [id number] [id number] POTASSIUM-STAT LAB STAT 06/27/2019 12:22 PM ICT CUSTOMER SUPPORT OFFICER after 04/24/2019 Results * RHYTHM STRIP - [...] POC-Glucose 103Comment: : TESTED AT [facility] 70 - 110 mg/dL [facility] Meter [address] [place] [address] [id number]: Teletype Technician/Parachute Line Tier ID MEDICAL OMAHA = [id number] for Hank Sarmiento Specimen Blood Performing Organization Address [facility] Ph one [address] [facility] * Vitamin B12 and Folate (04/16/2020 4:15 AM CDT) Vitamin B12 527 213 - 816 pg/mL [facility] Folate 7.60 >=7.00 ng/mL [facility] Specimen Blood Narrative Performed At Teletype Technician ID - [facility] Performing Organization Address [facility] one [address] [facility] * TSH/Free T4 If Indicated (04/16/2020 4:15 AM CDT) TSH 26.176 (H) 0.350 - 4.940 uIU/mL [facility] Specimen Blood Narrative Performed At Teletype Technician ID - [facility] Performing Organization Address [facility] Ph one [address] [facility] * Iron, TIBC, % sat. (without ferritin) (04/16/2020 4:15 AM CDT) Only the most recent of 4 results within the time period is included. Iron 29.0 (L) 40.0 - 160.0 ug/dL [facility] TIBC 139 (L) 250 - 450 ug/dL [facility] Iron % 21 20 - 55 % [facility] Specimen Blood Narrative Performed At Teletype Technician ID - CAROLINA F [facility] Performing Organization Address City/State/Zipcode Ph one Number [facility] [address] [place] [address] [facility] * CBC with platelet count + automated diff (04/16/2020 4:15 AM CDT) Only the most recent of 35 results within the time period is included. WBC 4.8 3.5 - 10.5 K/L [facility] RBC 3.22 (L) 3.93 - 5.22 M/L [facility] Hemoglobin 9.4 (L) 11.2 - 15.7 GM/DL [facility] Hematocrit 31.2 (L) 34.1 - 44.9 % [facility] MCV 96.9 (H) 79.4 - 94.8 fL [facility] MCH 29.2 25.6 - 32.2 pg [facility] MCHC 30.1 (L) 32.2 - 35.5 GM/DL [facility] RDW 14.9 (H) 11.7 - 14.4 % [facility] Platelets 195 150 - 450 K/CU MM [facility] MPV 12.5 (H) 9.4 - 12.3 fL [facility] nRBC 0 0 - 0 /100 WBC [facility] % Neutros 62 % [facility] % Lymphs 23 % [facility] % Monos 12 % [facility] % Eos 4 % [facility] % Baso 0 % [facility] # Neutros 2.97 1.56 - 6.13 K/L [facility] # Lymphs 1.09 (L) 1.18 - 3.74 K/L [facility] # Monos 0.56 (H) 0.24 - 0.36 K/L [facility] # Eos 0.17 0.04 - 0.36 K/L [facility] # Baso 0.01 0.01 - 0.08 K/L [facility] Immature 0 0 - 1 % [facility] Specimen Blood Performing Organization Address [facility] one [place] [phone] * T4, free (04/16/2020 4:15 AM CDT) Free T4 0.71 0.70 - 1.48 ng/dL [facility] Specimen Blood Narrative Performed At Teletype Technician ID - [facility] Performing Organization Address City/[facility] Ph one [place] [address] [phone] [address] * Phosphorus (04/16/2020 4:15 AM CDT) Only the most recent of 21 results within the time period is included. Phosphorus 7.1 (H) 2.3 - 4.7 mg/dL [facility] Specimen Blood Narrative Performed At Teletype Technician ID [facility] Performing Organization Address City/[facility] one Number [address] [facility] * Magnesium (04/16/2020 4:15 AM CDT) Only the most recent of 18 results within the time period is included. Magnesium 2.1 1.6 - 2.6 mg/dL [facility] Specimen Blood Narrative Performed At Teletype Technician ID - [facility] Performing Organization Address [facility] Ph one Number [address] [facility] * Hemoglobin A1c (04/16/2020 4:15 AM CDT) Only the most recent of 4 results within the time period is included. Hemoglobin A1C 5.8 4.3 - 6.1 % [facility] Specimen Blood Performing Organization Address [facility] one Number [address] [facility] * Ferritin (04/16/2020 4:15 AM CDT) Only the most recent of 4 results within the time period is included. Ferritin 775.63 (H) 5.00 - 275.00 ng/mL [facility] Specimen Blood Narrative Performed At Teletype Technician ID - [facility] Performing Organization Address [facility] Ph one Number [address] [facility] * Hepatic function panel (04/16/2020 4:15 AM CDT) Only the most recent of 3 results within the time period is included. Protein, Total 6.9 6.0 - 8.3 gm/dL [facility] Albumin 3.0 (L) 3.5 - 5.0 g/dL [facility] Total Bilirubin 0.3 0.2 - 1.2 mg/dL [facility] Bilirubin, 0.2 0.1 - 0.5 mg/dL [facility] Alkaline 61 40 - 150 U/L [facility] AST 9 5 - 34 U/L [facility] ALT <6 (L) 6 - 55 U/L [facility] Specimen Blood Narrative Performed At Teletype Technician ID Alfredo Brower [facility] Performing Organization Address [facility] Ph one Number [facility] [address] [place] [address] [facility] * Lipid panel (04/16/2020 4:15 AM CDT) Only the most recent of 2 results within the time period is included. Triglycerides 130 mg/dL [facility] Cholesterol 179 mg/dL [facility] HDL 33 mg/dL [facility] LDL Calculated 120 mg/dL [facility] Specimen Blood Narrative Performed At Triglyceride Reference Range: [facility] Low Risk <150 [facility] Borderline 150-199 High Risk 200-499 Very High Risk >=500 Cholesterol Reference Range: Low Risk <200 Borderline 200-239 High Risk >240 HDL Cholesterol Reference Range: Low Risk >=60 High Risk <40 LDL Cholesterol Reference Range: Optimal <100 Near Optimal 100-129 Borderline 130-159 High 160-189 Very High >=190 Teletype Technician SHERMAN Brower Performing Organization Address [facility] Ph one Number [facility] [address] [place] [address] [facility] * Basic metabolic panel (04/16/2020 4:15 AM CDT) Only the most recent of 39 results within the time period is included. Sodium 136 136 - 145 meq/L [facility] Potassium 5.2 (H) 3.5 - 5.1 meq/L [facility] Chloride 96 (L) 98 - 107 meq/L [facility] CO2 26 22 - 29 meq/L [facility] BUN 53 (H) 7 - 21 mg/dL [facility] Creatinine 7.47 (H) 0.57 - 1.25 mg/dL [facility] Glucose 111 (H) 70 - 105 mg/dL [facility] Calcium 7.4 (L) 8.4 - 10.2 mg/dL [facility] EGFR 6Comment: ESTIMATED GFR IS NOT mL/min/1.[address] [facility] ACCURATE CREATININE [facility] CLEARANCE IN PREDICTING [facility] GLOMERULAR FILTRATION RATE. ESTIMATED GFR IS NOT APPLICABLE FOR DIALYSIS PATIENTS. Specimen Blood Narrative Performed At Teletype Technician ID - BIMAL Leonarda [facility] Performing Organization Address [facility] one [place] [address] [facility] * Troponin I (04/15/2020 4:16 AM CDT) Only the most recent of 6 results within the time period is included. Troponin I 0.15 (H) 0.00 - 0.03 ng/mL [facility] Specimen Blood Narrative Performed At Troponin I (TnI) levels must be interpreted in the co ntext of the presenting [facility] symptoms and the clinical findings. Elevated TnI leve ls indicate myocardial [facility] damage, but are not specific for ischem ic heart disease. Elevated TnI levels are seen in patients with other cardiac con ditions (including myocarditis and congestive heart failure), and slight T nI elevations occur in patients with other conditions, including sepsis, cesia al failure, acidosis, acute neurological disease, and persistent tachyarrhythmia . Teletype Technician ID - SIDASI Performing Organization Address [facility] one [place] [address] [facility] * Hepatitis B surface antigen (04/14/2020 8:15 PM CDT) Only the most recent of 6 results within the time period is included. HBsAg Screen Nonreactive Nonreactive [facility] Specimen Blood Narrative Performed At Specimen is considered negative for HBsAg. [facility] Performing Organization Address City/State/Zipcode Ph one Number [facility] [address] [place], [place] [address] [facility] * SARS-CoV2/RT-PCR (Asymptomatic ONLY) (04/14/2020 6:29 PM CDT) Only the most recent of 2 results within the time period is included. SARS-COV2/RT-PC Negative Not Detected, [facility] R Negative, See [facility] external report for [facility] linked test SARS-COV-2 [facility] RORO [facility] PERFORMING LAB [facility] Specimen Other - Nasopharyngeal wall structure (body structure) Narrative Performed At Negative result for this test determine s that SARS-CoV-2 RNA was not present in [facility] the specimen above the Limit of Detecti on (LOD). However, Negative results do [facility] not preclude SARS-CoV-2 infection and s [...] the Act. Fact Sheet for Healthcare Providers: https://www.GetApp/sites/default/files/product/documents/Fact_Sheet_HC_Provi mtwp_Kuuv_EAWZ-RwG-1.pdf Fact Sheet for Healthcare Patients: https://www.GetApp/sites/default/files/product/documents/Fact_Sheet_Patients _Hbeo_SMDU-TfR-8.pdf Performing Laboratory: [address] [place] [address] Performing Organization Address [facility] Ph one Number [place] [address] [phone] * Potassium (04/14/2020 4:25 PM CDT) Only the most recent of 2 results within the time period is included. Potassium 6.5 (HH)Comment: Specimen 3.5 - 5.1 meq/L [facility] slightly hemolyzed [facility] Specimen Blood Narrative Performed At Teletype Technician ID - BS [facility] Performing Organization Address [facility] Ph one [place] [address] [phone] [place] [address] * XR chest 1 view portable / bedside (04/14/2020 4:05 PM CDT) Only the most recent of 3 results within the time period is included. Specimen Narrative Performed At FINAL REPORT [facility] History: Status post fall Comparison: Chest [...] Report Verified Date/Time: 04/14/2020 16:45:57 Reading Location: [facility] Radiology Readin g Room Procedure Note Interface, [...] Report Verified Date/Time: 04/14/2020 16:45:57 Reading Location: [facility] Radiology Reading Room Performing Organization Address City/State/Zipcode [...] Report Verified Date/Time: 04/14/2020 16:35:15 Reading Location: [facility] Radiology Readin g Room Procedure Note Interface, [...] Report Verified Date/Time: 04/14/2020 16:35:15 Reading Location: [facility] Radiology Reading Room Performing Organization Address City/State/Zipcode Ph one Number [facility] * XR knee complete 4 views left (04/14/2020 4:05 PM CDT) Specimen Narrative Performed At FINAL REPORT [facility] LEFT KNEE 2 VIEWS HISTORY: Left knee [...] Report Verified Date/Time: 04/14/2020 16:39:33 Reading Location: [facility] Radiology Readin g Room Procedure Note Interface, [...] Report Verified Date/Time: 04/14/2020 16:39:33 Reading Location: [facility] Radiology Reading Room Performing Organization Address City/State/Zipcode Ph one Number [facility] * XR femur left AP and lateral (04/14/2020 4:05 PM CDT) Only the most recent of 2 results within the time period is included. Specimen Narrative Performed At FINAL REPORT [facility]un LEFT FEMUR 2 VIEWS HISTORY: Left thigh [...] Report Verified Date/Time: 04/14/2020 16:41:36 Reading Location: [facility] Radiology Readin g Room Procedure Note Interface, [...] Report Verified Date/Time: 04/14/2020 16:41:36 Reading Location: [facility] Radiology Reading Room Performing Organization Address City/State/Zipcode [...] Report Verified Date/Time: 04/14/2020 16:42:53 Reading Location: [facility] Radiology Readin g Room Procedure Note Interface, [...] Report Verified Date/Time: 04/14/2020 16:42:53 Reading Location: [facility] Radiology Reading Room Performing Organization Address City/State/[facility] Ph one Number [facility] * XR [...] Report Verified Date/Time: 04/14/2020 16:49:24 Reading Location: [facility] Radiology Readin g Room Procedure Note Interface, [...] Report Verified Date/Time: 04/14/2020 16:49:24 Reading Location: [facility] Radiology Reading Room Performing Organization Address [facility] Ph one Number [facility] * ECG 12 lead (04/14/2020 3:02 PM CDT) Only the most recent of 6 results within the time period is included. Specimen Narrative Performed At Ventricular Rate 69 BPM GE MUSE Atrial Rate 69 BPM P-R Interval 222 ms QRS Duration 88 ms Q-T Interval 436 ms QTC Calculation(Bazett) 467 ms P [place] 56 degrees R [place] -23 degrees T [place] 70 degrees Sinus rhythm with 1st degree A-V block Within normal limits Confirmed by MD Winston Roberto ([id number]) on 04/15/2020 9:13:47 AM Procedure Note Interface, External Ris In - 04/15/2020 9:13 AM CDT Ventricular Rate 69 BPM Atrial Rate 69 BPM P-R Interval 222 ms QRS Duration 88 ms Q-T Interval 436 ms QTC Calculation(Bazett) 467 ms P [place] 56 degrees R [place] -23 degrees T [place] 70 degrees Sinus rhythm with 1st degree A-V block Within normal limits Confirmed by MD Winston Roberto ([id number]) on 04/15/2020 9:13:47 AM Performing Organization Address [facility] one Number GE MUSE * PT/aPTT (04/14/2020 2:53 PM CDT) Only the most recent of 4 results within the time period is included. Protime 14.9 (H) 11.9 - 14.2 seconds [facility] INR 1.20 <=5.90 [facility] PTT 30.7 22.5 - 36.0 seconds [facility] Specimen Blood Narrative Performed At Effective 12/11/2018: PT Reference Range Change [facility] New: 11.9-14.2 Previous: 11.7-14.7 [facility] MEDICAL ARYA TER RECOMMENDED COUMADIN/WARFARIN INR THERA PY RANGES STANDARD DOSE: 2.0-3.0 Includes: PROP HYLAXIS for venous thrombosis, systemic embolization; TREATMENT for venous thro mbosis and/or pulmonary embolus. HIGH RISK: Target INR is 2.5-3.5 for pa tients wiht mechanical heart valves. Performing Organization Address [facility] one [place] [address] [phone] [place] [address] * B-type Natriuretic Factor (BNP) (04/14/2020 2:53 PM CDT) Only the most recent of 2 results within the time period is included. BNP 347 (H) 0 - 100 pg/mL [facility] Specimen Blood Narrative Performed At Teletype Technician ID - BS [facility] Performing Organization Address [facility] one [place] [address] [address] [phone] [place] [address] * Cardiac Enzymes - CPK (04/14/2020 2:53 PM CDT) Only the most recent of 2 results within the time period is included. Total CK 52 29 - 200 U/L [facility] Specimen Blood Narrative Performed At Teletype Technician ID - BS [facility] Performing Organization Address [facility] one [place] [address] 0 [phone] [address] * TRANSFUSION SERVICE REPORT - SCAN [...] ABO B Neg SAFETRACE TX UNIT NUMBER [id number] SAFETRACE TX Status TX_TIMEINCHART SAFETRACE TX Blood Bank RED BLOOD CELLS SAFETRACE TX Product PRODUCT CODE [id number] SAFETRACE TX Specimen Other Performing Organization Address [facility] one Number SAFETRACE [place] * Transfuse Leuko-Red RBC (03/01/2020 6:29 PM CDT) Only the most recent of 5 results within the time period is included. * Iron, serum (03/01/2020 10:50 AM CDT) Iron 22.0 (L) 40.0 - 160.0 ug/dL [facility] Specimen Blood Performing Organization Address [facility] one Number [address] [facility] * Type and screen, automated (03/01/2020 10:40 AM CDT) Only the most recent of 6 results within the time period is included. ABO/RH B POSITIVE [facility] Ab Scrn NEGATIVE [facility] Specimen Blood Performing Organization Address [facility] one Number [address] [phone] [facility] * Reticulocyte count (03/01/2020 4:09 AM CDT) % Retic 2.6 (H) 0.5 - 1.7 % [facility] Specimen Blood Narrative Performed At Teletype Technician ID - [id number] [facility] Performing Organization Address [facility] one Number [address] 7[address] [facility] * Prepare RBC (02/29/2020 11:54 PM CDT) CROSSMATCH COMPATIBLE SAFETRACE TX Unit ABO B Pos SAFETRACE TX UNIT NUMBER [id number] SAFETRACE TX Status TX_TIMEINCHART SAFETRACE TX Blood Bank RED BLOOD CELLS SAFETRACE TX Product PRODUCT CODE [id number] SAFETRACE TX CROSSMATCH COMPATIBLE SAFETRACE TX Unit ABO B Pos SAFETRACE TX UNIT NUMBER [id number] SAFETRACE TX Status TX_TIMEINCHART SAFETRACE TX Blood Bank RED BLOOD CELLS SAFETRACE TX Product PRODUCT CODE [id number] SAFETRACE TX Performing Organization Address [facility] one Number SAFETRACE [place] * FL fluoro [...] patient radiation dose information. Performing Organization Address [facility] one Number GE RIS * HEMODIALYSIS INPATIENT [...] included. Protime 11.6 9.8 - 12.0 sec [facility], [facility] INR 1.08 <=5.90 [facility] [place], [facility] Specimen Blood Narrative Performed At RECOMMENDED COUMADIN/WARFARIN INR THERAPY RANGES [facility] STANDARD DOSE: 2.0 - 3.0 Includes: PROPHYLAXIS for venous thrombosis, [facility] systemic embolization; TREATMENT for ve nous thrombosis and/or pulmonary embolus. [facility] HIGH RISK: Target INR is 2.5-3.5 for patients with me chanical heart valves. EMER[facility]Y CENTER, [facility] Performing Organization Address City/State/Zipcode Ph one Number [facility] [address] [place] [address] [phone] [facility], [facility] * PIV Insertion [...] period is included. Vancomycin Rm 21.8 ug/mL [facility] Specimen Blood Narrative Performed At Reference Range: No Normals [facility] Teletype Technician ID - ROSIANG [facility] Performing Organization Address City/State/Zipcode Ph one Number [facility] [address] [place], [place] [address] MEDICAL CENTER * Tissue Exam (10/24/2019 11:36 AM CDT) Only the most recent of 2 results within the time period is included. Case Report Surgical Pathology Report [facility] Ole [facility] Case: [id number] MEDICAL CENTER Authorizing Provider: Goyo Haji, Collected: 10/24/2019 11:36 AM Ordering Location: [facility] PERIOPERATIVE Received: 10/24/2019 01:44 PM SERVICES Pathologist: Yumiko Brito MD Specimen: Soft Tissue, Other, Transmetatarsal right foot DIAGNOSIS RIGHT FOOT, TRANSMETATARSAL [facility] E lectronically AMPUTATION: [facility] signed by Alisha, - STATUS POST PRIOR [facility] MD Yumiko on AMPUTATION 10/29/2019 at 4:40 - GANGRENE NECROSIS WITH PM UNDERLYING ACUTE OSTEOMYELITIS (SEE COMMENT) - SOFT TISSUE RESECTION MARGIN WITH NECROSIS AND ACUTE INFLAMMATION Signing Pathologist Direct Phone Line: [phone] COMMENT Due to the fragmented nature [facility] Ole SPEAR of the specimen, the bone [facility] resection margins cannot be [facility] appropriately evaluated. However, no definitive acute osteomyelitis are seen on the possible submitted bone resection margins. Remodeling and reactive changes are seen at the possible bone resection margins. Clinical/radiological correlation is recommended. CPT Code(s) 23649, 59100 [facility] CLINICAL Right foot gangrene, [facility] HISTORY dehiscence of operative wound, [facility] initial encounter [facility] SPECIMEN SOURCE Transmetatarsal right foot [facility] GROSS Received fresh labeled with YADIEL QUAN DESCRIPTION the patient's name, accession [facility] number and "soft tissue, [facility] other" is an unoriented transmetatarsal amputation [...] shay-yellow and trabeculated and devoid of lesions. Bi Report Developer sections are submitted. Section code: A1, separate segment of bone margin, en face and healthcare sales representative of separate soft tissue fragment; A2, ulcerative closest skin/soft tissue margin (blue) and healthcare sales representative of closest bone (presumed hallux), following decalcification; A3, two smaller bone segment margins on transmetatarsal amputation, en face, following decalcification;A4, larger two bone segment margins from transmetatarsal amputation, en face, following decalcification. CG/pl MICROSCOPIC Performed. [facility] MEDICAL [place] Specimen Tissue - Soft tissue (navigational concept) Performing Organization Address City/State/Zipcode Ph one Number [place] [phone] [place] [address] MEDICAL CENTER * HEMODIALYSIS INPATIENT (09/18/2019 3:25 PM ICT CUSTOMER SUPPORT OFFICER) Narrative Performed At Antonina Fernandez RN 09/18/2019 [...] Results for ZEYAD BLANCA OMAR (MR N [id number]) as of 09/18/2019 15:25 Ref. Range 09/13/2019 04:47 Hepatitis B Surface Ag Latest Ref Range : Nonreactive Nonreactive * Hemoglobin and hematocrit (09/13/2019 3:08 PM ICT CUSTOMER SUPPORT OFFICER) Only the most recent of 11 results within the time period is included. Hemoglobin 8.5 (L) 11.2 - 15.7 GM/DL [facility] Hematocrit 28.3 (L) 34.1 - 44.9 % [facility] Specimen Blood Narrative Performed At Teletype Technician ID - [id number] [facility] Performing Organization Address City/State/Zipcode Ph one Number [facility] [address] [place] [phone] MEDICAL CENTER * HEMODIALYSIS INPATIENT (09/09/2019 12:23 PM ICT CUSTOMER SUPPORT OFFICER) Narrative Performed At Tootie Guerrero RN 09/09/2019 [...] 09/07/2019 Results for BLANCA HORN (MR N [id number]) as of 09/09/2019 09:39 Ref. Range 08/14/2019 [...] brain without IV contrast (09/05/2019 5:42 PM ICT CUSTOMER SUPPORT OFFICER) Only the most recent of 3 results within the time period is included. Specimen Narrative Performed At FINAL REPORT [employer] CT, BRAIN, WITHOUT CONTRAST INDICATION: ams fall [...] External Ris In - 09/05/2019 6:03 PM ICT CUSTOMER SUPPORT OFFICER FINAL REPORT CT, BRAIN, WITHOUT CONTRAST INDICATION: [...] Verified Date/Time: 09/05/2019 18:01:01 Performing Organization Address [facility] one Number GE RIS * XR chest PA or AP 1 view in dept (09/05/2019 5:27 PM ICT CUSTOMER SUPPORT OFFICER) Specimen Narrative Performed At FINAL REPORT GE [...] Report Verified Date/Time: 09/05/2019 18:02:16 Reading Location: [address] Consult Reading Room Procedure Note Interface, External Ris In - 09/05/2019 6:04 PM ICT CUSTOMER SUPPORT OFFICER FINAL REPORT Chest, one view. HISTORY: chest pain COMPARISON: Radiograph from 08/14/2019 IMPRESSION: There are bilateral diffuse alveolar opacities which are most likely due to pulmonary edema. Infection is possible but considered less likely. Trace left pleural effusion. No pneumothorax. The cardiac silhouette is normal in size. No acute bony abnormality. Signed: Lorenza Quinteros MD Report Verified Date/Time: 09/05/2019 18:02:16 Reading Location: [address] Consult Reading Room Performing Organization Address [facility] one Number GE RIS * CRITICAL CARE (09/05/2019 5:05 PM ICT CUSTOMER SUPPORT OFFICER) Narrative Performed At Rhona Silver MD 10:41 [...] + Reflex to Culture (09/05/2019 4:38 PM ICT CUSTOMER SUPPORT OFFICER) Color, UA Yellow [facility] Clarity, UA Cloudy [facility] Specific 1.011 1.001 - 1.035 [facility] [place], [facility] pH, UA 6.0 5.0 - 8.0 [facility] Protein, UA 200 mg/dL (A) Negative [facility] Glucose, UA Negative Negative [facility] Ketones, UA Negative Negative [facility] Bilirubin, UA Negative Negative [facility] Blood, UA Small (A) Negative [facility] Nitrite, UA Negative Negative [facility] Leukocytes, UA Large (A) Negative [facility] Urobilinogen, 0.2 0.2 - 1.0 mg/dL [facility] RBC, UA 14 /HPF [facility] WBC, UA 986 /HPF [facility] Bacteria, UA Many [facility] Squam Epithel, 13 /HPF [facility] Casts 108 /LPF [facility] Yeast Few [facility] Specimen Source [facility] Specimen Urine Narrative Performed At Teletype Technician ID - [auto] [facility] Teletype Technician ID - [facility] Performing Organization Address City/State/[facility] Ph one [address] [facility] * Urine culture (09/05/2019 4:38 PM ICT CUSTOMER SUPPORT OFFICER) Result 80-89,000 col/mL Escherichia YADIEL STEVENSON coli [...] <=20: Susceptible Escherichia coli Performing Organization Address [facility] Ph one [address] [phone] [place] [address] * Lipase (09/05/2019 3:32 PM ICT CUSTOMER SUPPORT OFFICER) Lipase 23 8 - 78 U/L [facility] Specimen Blood Narrative Performed At Teletype Technician ID - [facility] Performing Organization Address City/State/Zipcode Ph one [address] [facility] * Amylase (09/05/2019 3:32 PM ICT CUSTOMER SUPPORT OFFICER) Amylase 34Comment: Specimen slightly 25 - 125 U/L [facility] hemolyzed [facility] Specimen Blood Narrative Performed At Teletype Technician ID - [facility] Performing Organization Address City/[facility] Ph one [address] [place], [place] [address] MEDICAL CENTER * HEMODIALYSIS INPATIENT (09/02/2019 5:42 PM ICT CUSTOMER SUPPORT OFFICER) Narrative Performed At Kathia Blankenship RN 09/02/2019 [...] nurse. * HEMODIALYSIS INPATIENT (08/30/2019 11:55 AM ICT CUSTOMER SUPPORT OFFICER) Narrative Performed At Alyson Stoddard RN 08/30/2019 [...] 100% * Potassium-Stat Lab (08/29/2019 1:13 PM ICT CUSTOMER SUPPORT OFFICER) Only the most recent of 2 results within the time period is included. [facility] Potassium 3.1 (L) 3.6 - 5.5 meq/L [facility] Specimen Blood, Arterial Performing Organization Address [facility] one Number [place] [address] [facility] * POC-Hemoglobin meter (08/29/2019 10:25 AM ICT CUSTOMER SUPPORT OFFICER) [facility] POC-Hemoglobin 10.4 (L)Comment: TESTED AT 12.0 - 15.0 g/dL C [facility] [address] Specimen Blood Performing Organization Address [facility] one Number [place] [address] [phone] [place] [address] * HEMODIALYSIS INPATIENT (08/15/2019 12:08 AM ICT CUSTOMER SUPPORT OFFICER) Narrative Performed At Óscar Freed RN 08/15/2019 [...] * Blood gas, venous (08/14/2019 4:29 PM ICT CUSTOMER SUPPORT OFFICER) [facility] pH, [place] 7.36 7.32 - 7.42 [facility] pCO2, [place] 54 (H) 41 - 51 mmHg [facility] pO2, [place] 41 (H) 25 - 40 mmHg [facility] O2 Sat, [place] 73.0 (H) 40.0 - 70.0 % [facility] HCO3, [place] 30 (H) 21 - 29 mmol/L [facility] Base Excess, 3.5 (H) -2.0 - 3.0 mmol/L [facility] Herm[place] [facility] Patient [address] [facility] Temperature [facility] FIO2 21.0 % [facility] Specimen Blood Performing Organization Address [facility] one Number [place] [address] [phone] * Blood Culture - Routine (Left Venipuncture) (08/14/2019 4:20 PM ICT CUSTOMER SUPPORT OFFICER) Only the most recent of 3 results within the time period is included. Result No growth in 5 days [facility] Specimen Blood - Entire right upper arm (body structure) Performing Organization Address [facility] one [place] [address] [phone] [place] [address] * C-Reactive Protein (08/14/2019 3:40 PM ICT CUSTOMER SUPPORT OFFICER) CRP 6.10 (H) 0.00 - 0.50 mg/dL [facility] Specimen Blood Narrative Performed At Teletype Technician ID - BS [facility] Performing Organization Address [facility] one Number [place] [phone] * Lactic acid, venous (08/14/2019 3:40 PM ICT CUSTOMER SUPPORT OFFICER) Lactate, Venous 1.4Comment: Specimen 0.5 - 2.2 mmol/L [facility] moderately hemolyzed [facility] Specimen Blood Narrative Performed At Teletype Technician ID - BS [facility] Performing Organization Address City/[facility] Ph one Number [facility] [address] [place] [address] [phone] [place] [address] * CARDIAC CATH REPORT - SCAN (07/18/2019 8:20 AM ICT CUSTOMER SUPPORT OFFICER) Narrative Performed At This result has an attachment that is n ot available. * VASCULAR DIAGRAM -SCAN (07/18/2019 8:20 AM ICT CUSTOMER SUPPORT OFFICER) Only the most recent of 2 results within the time period is included. Narrative Performed At This result has an attachment that is n ot available. * HEMODIALYSIS INPATIENT (07/10/2019 11:55 AM ICT CUSTOMER SUPPORT OFFICER) Narrative Performed At Tootie Guerrero RN 07/10/2019 [...] 07/10/2019 Results for BLANCA HORN (MR N [id number]) as of 07/10/2019 10:45 Ref. Range 06/28/2019 09:11 Hepatitis B Surface Ag Latest Ref Range : Nonreactive Nonreactive HD X 4 hours completed. Net UF -3L. VSS. Patient very confused. Restless during procedure. Required constant observation during HD so she wouldn't p ull out her access catheters. Tootie Geurrero RN * Vancomycin level, trough (07/09/2019 4:15 AM ICT CUSTOMER SUPPORT OFFICER) Vancomycin Tr 18.0 10.0 - 20.0 ug/mL [facility] Specimen Blood Performing Organization Address City/[facility] Ph one Number [facility] [address] [place] [address] [phone] [place] [address] * Procalcitonin (07/09/2019 4:14 AM ICT CUSTOMER SUPPORT OFFICER) Procalcitonin 1.09 (H) <0.05 ng/mL [facility] Specimen Blood Narrative Performed At SEPSIS RISK (ng/mL) [facility] Low: 0.05-0.50 [facility] Intermediate: 0.51-2.00 High: >=2.01 Performing Organization Address [facility] one Number [facility] [address] [place], [place] [address] [address] [phone] [place] [address] * Clostridium difficile [facility] Toxin (07/08/2019 1:14 PM ICT CUSTOMER SUPPORT OFFICER) C. Difficle Negative Negative [facility] C. Difficile Positive (A)Comment: C. Negative [facility] Antigen difficile present but [facility] not detected. Indicates MEDICAL CENTER colonization with non-toxigenic strain or level of toxin below detectable levels. No need for enteric isolation. Treatment is rarely needed (only when strong clinical suspicion for Clostridium difficile infection) Specimen Stool - Feces (substance) Narrative Performed At Testing performed by [employer]. Fo r GD, published [facility] sensitivity of the assay is 98.7% blas red to cytotoxicity testing. For Toxin [facility] AB, published sensitivity is 87.8% and specificity 99.4% compared to cytotoxicity testing. Verification of kit performance was don e by the [facility] Microbiology Lab prior to clinical use. Performing Organization Address [facility] one Number [facility] [address] [place], [place] [address] [facility] * HEMODIALYSIS INPATIENT (07/05/2019 6:01 PM ICT CUSTOMER SUPPORT OFFICER) Narrative Performed At Alyson Stoddard RN 07/05/2019 [...] EEG AWAKE AND DROWSY (07/02/2019 10:52 AM ICT CUSTOMER SUPPORT OFFICER) Specimen Narrative Performed At EEG REPORT: Blanca Horn, 74 yrs GE RIS Date of EE Date of report: Test location: Inpatient - ICU EEG start time: 1030 EEG end time: 105 EEG #: [id number] ICD Code: #: R41.82 Altered mental s tatus, unspecified (ICD 9: 780.97) CPT Code: #: 96006: 01. EEG awake an d drowsy; 20-40 [...] External Ris In - 07/02/2019 11:15 AM ICT CUSTOMER SUPPORT OFFICER EEG REPORT: Blanca Horn, 74 yrs Date of EE Date of report: Test location: Inpatient - ICU EEG start time: 1030 EEG end time: 105 EEG #: [id number] ICD Code: #: R41.82 Altered mental status, unspecified (ICD 9: 780.97) CPT Code: #: 10443: 01. EEG awake and drowsy; 20-40 min [...] RIS * PTH, intact (07/02/2019 4:09 AM ICT CUSTOMER SUPPORT OFFICER) PTH 67.3 8.5 - 72.5 pg/mL [facility] Specimen Blood Performing Organization Address City/State/Zipcode Ph one Number [facility] [address] [place], [place] [address] [facility] * PERIPHERAL VASCULAR REPORT - SCAN (06/30/2019 9:23 PM ICT CUSTOMER SUPPORT OFFICER) Narrative Performed At This result has an attachment that is n ot available. * Transthoracic 2D echo w contrast & doppler (06/30/2019 11:06 AM ICT CUSTOMER SUPPORT OFFICER) Ejection SLE ECHO Fraction [facility] Specimen Narrative Performed At Transthoracic Echocardiography Report (TTE) SLE ECH O [facility]ographics [facility] Patient Name BLANCA HORN Date of Study 06/30/2019 [place] Gender Female Visit Number [id number] Race Black Room Number 7403 Number Date of 1945 Referring Physician Charbel Harris Age 74 year(s) Agile Scrum Coach Gabrielle May [facility] Interpreting Joan Loyd MD Physician Fellow Princess [...] External Ris In - 06/30/2019 4:05 PM ICT CUSTOMER SUPPORT OFFICER Transthoracic Echocardiography Report (TTE) Demographics Patient Name BLANCA HORN Date of Study 06/30/2019 [place] Gender Female Visit Number [id number] Race Black Room Number 7403 Number Date of 1945 Referring Physician Charbel Harris Age 74 year(s) Agile Scrum Coach Gabrielle May [facility] Interpreting Joan Loyd MD Physician Fellow Princess [...] Performing Organization Address City/State/Zipcode Ph one Number [facility] ECHO [facility] * Pseudoaneurysm Groin Doppler Left (06/29/2019 11:53 AM ICT CUSTOMER SUPPORT OFFICER) Ejection [facility] ECHO Fraction [facility] Specimen Impressions Performed At Left Impression [facility] ECHO [facility] 1. There is no pseudoaneurysm visualized. [facility] 2. There is no hematoma visualized. 3. [...] Performed At [facility] - Pseudoaneurysm Survey [facility] ECHO [facility] Demographics [facility] Patient Name BLANCA HORN Date of Study 06/29/2019 OMAR Age 74 Visit Number [id number] Gender Female Accession Number [id number] Date of 1945 Referring Charbel Acevedo Room Number 7403 Physician Agile Scrum Coach Tracy Ho [facility] Interpreting Bianka Cheema MD Physician [...] External Ris In - 06/30/2019 2:23 PM ICT CUSTOMER SUPPORT OFFICER PV LAB - Pseudoaneurysm Survey Demographics Patient Name BLANCA HORN Date of Study 06/29/2019 OMAR Age 74 Visit Number [id number] Gender Female Accession Number [id number] Date of 1945 Referring [facility] Fely Acevedo Room Number 7403 Physician Agile Scrum Coach Tracy Ho T Interpreting Bianka Cheema MD [...] / KUB 1 view (06/29/2019 9:24 AM ICT CUSTOMER SUPPORT OFFICER) Specimen Narrative Performed At FINAL REPORT GE [...] Report Verified Date/Time: 06/29/2019 09:57:47 Reading Location: [facility] C013X Ortho Co nsult Reading Room Procedure Note Interface, External Ris In - 06/29/2019 10:00 AM ICT CUSTOMER SUPPORT OFFICER FINAL REPORT Abdomen. MEDICAL HISTORY: Line placement. [...] Report Verified Date/Time: 06/29/2019 09:57:47 Reading Location: [facility] C013X Ortho Consult Reading Room Performing Organization Address City/State/Zipcode Ph one Number GE RIS * aPTT (06/28/2019 11:28 PM ICT CUSTOMER SUPPORT OFFICER) PTT 33.8 22.5 - 36.0 seconds [facility] Specimen Blood Performing Organization Address City/State/Zipcode Ph one Number [facility] [address] [address] [facility] * Fibrinogen (06/28/2019 11:28 PM ICT CUSTOMER SUPPORT OFFICER) Fibrinogen 428 225 - 434 mg/dl [facility] Specimen Blood Performing Organization Address City/[facility] Ph one Number [place] [phone] [place], [place] [address] [facility] * Comprehensive metabolic panel (06/28/2019 11:28 PM ICT CUSTOMER SUPPORT OFFICER) Protein, Total 6.7 6.0 - 8.3 gm/dL [facility] Albumin 3.0 (L) 3.5 - 5.0 g/dL [facility] Alkaline 61 40 - 150 U/L [facility] Total Bilirubin 0.4 0.2 - 1.2 mg/dL [facility] Sodium 132 (L) 136 - 145 meq/L [facility] Potassium 5.0 3.5 - 5.1 meq/L [facility] Chloride 97 (L) 98 - 107 meq/L [facility] CO2 23 22 - 29 meq/L [facility] BUN 43 (H) 7 - 21 mg/dL [facility] Creatinine 7.54 (H) 0.57 - 1.25 mg/dL [facility] Glucose 233 (H) 70 - 105 mg/dL [facility] Calcium 7.8 (L) 8.4 - 10.2 mg/dL [facility] AST 8 5 - 34 U/L [facility] ALT <6 (L) 6 - 55 U/L [facility] EGFR 6Comment: ESTIMATED GFR IS NOT mL/min/1.[address] [facility] ACCURATE CREATININE [facility] CLEARANCE IN PREDICTING MEDICAL CENTER GLOMERULAR FILTRATION RATE. ESTIMATED GFR IS NOT APPLICABLE FOR DIALYSIS PATIENTS. Specimen Blood Performing Organization Address City/[facility] Ph one Number [facility] [address] [id number] [facility] * CTA carotid (06/28/2019 4:44 PM ICT CUSTOMER SUPPORT OFFICER) Specimen Narrative Performed At FINAL REPORT [facility] CLINICAL HISTORY: Neuro deficit, acute, stroke [...] Report Verified Date/Time: 06/28/2019 17:32:12 Reading Location: [facility] B1 C013V Neuro Re ading Room Procedure Note Interface, External Ris In - 06/28/2019 5:34 PM ICT CUSTOMER SUPPORT OFFICER FINAL REPORT CLINICAL HISTORY: Neuro deficit, acute, [...] Report Verified Date/Time: 06/28/2019 17:32:12 Reading Location: [facility] C0[facility] Neuro Reading Room Performing Organization Address City/State/Zipcode Ph one Number [place] [facility] * CTA brain (06/28/2019 4:44 PM ICT CUSTOMER SUPPORT OFFICER) Specimen Narrative Performed At FINAL REPORT [employer] CLINICAL HISTORY: Neuro deficit, acute, stroke suspected [...] Report Verified Date/Time: 06/28/2019 17:32:12 Reading Location: [facility] C013V Neuro Re ading Room Procedure Note Interface, External Ris In - 06/30/2019 3:13 PM ICT CUSTOMER SUPPORT OFFICER FINAL REPORT CLINICAL HISTORY: Neuro deficit, acute, [...] Report Verified Date/Time: 06/28/2019 17:32:12 Reading Location: [address] Neuro Reading Room Performing Organization Address City/State/Zipcode Ph one Number [employer] * CT brain/stroke test design (06/28/2019 4:27 PM ICT CUSTOMER SUPPORT OFFICER) Specimen Narrative Performed At FINAL REPORT [employer] CT Head without contrast CLINICAL HISTORY: stroke TECHNIQUE: Contiguous axial images thro ugh the head without contrast. This exam was performed according to [facility] departmental dose optimization program which includes aut [...] Report Verified Date/Time: 06/28/2019 16:27:55 Reading Location: [address] Neuro Re ading Room Procedure Note Interface, External Ris In - 06/28/2019 4:30 PM ICT CUSTOMER SUPPORT OFFICER FINAL REPORT CT Head without contrast CLINICAL [...] care neurologist at 4:28 PM Signed: Cris Dykse MD Report Verified Date/Time: 06/28/2019 16:27:55 Reading Location: [address] Neuro Reading Room Performing Organization Address City/State/Zipcode Ph one Number [facility] * Platelet Aggregation: Function Screen (06/28/2019 9:50 AM ICT CUSTOMER SUPPORT OFFICER) Only the most recent of 2 results within the time period is included. Pathologist: Zulma Stuart MD [facility] (electronic signature) [facility] Platelets 177 150 - 450 K/CU MM [facility] ADP 86 62 - 100 % [facility] Platelet Rich 218 200 - 300 k/cu mm [facility] Function Normal aggregation results [facility] Screen with ADP. No evidence of [facility] Interpretation platelet dysfunction or [facility] inhibitor effect. Specimen Blood Narrative Performed At Platelet Function Screen results may be falsely low w ith platelet counts [facility] <75,000/cu mm. [facility] REDRAW REDRAW REDRAW Performing Organization Address City/[facility] Centercode Ph one Number [facility] [address] [place], [place] [address] [facility] * POC ACTIVATED CLOTTING TIME (06/27/2019 9:04 PM ICT CUSTOMER SUPPORT OFFICER) Only the most recent of 5 results within the time period is included. Activated 153Comment: Reference Range: sec C [facility] Clotting Time 74-137 seconds, [facility] Baseline/TESTED AT [address] [address] Specimen Blood Performing Organization Address [facility] Ph one Number [facility] [address] [place], [place] [address] [facility] after 04/24/2019 Insurance Type Payer Benefit Subscriber ID Effective Phone Address Plan / Dates Group [facility] [id number] 2007-P MEDICARE resent ADV CDC REVIEW CDC REVIEW [id number] 2020- [address] [place] [phone] Advance Directives For more information, please contact: [phone] Patient Bi Report Developer Explanation Type Date Recorded Power of Medical Art Therapist 09/05/2019 12:00 AM Date Inactivated Comments Code [...]
[2020-04-24] MEDS ORDERED: DEXTROSE 50% SYRINGE 50 ML IV PRN (14:30)
[2020-04-24] MEDS ORDERED: ONDANSETRON HCL INJ 2MG/ML 2ML 2 MG/ML VIAL IV PRN (14:30)
[2020-04-24] MEDS ORDERED: HYDROCODONE/APAP 7.5MG-325MG 1 EA TAB PO PRN (14:30)
--- OUTSIDE RECORDS SUMMARY | 2020-04-24 14:32 | XMS REPORT | Continuity of Care Document ---
Author Author [facility] t Organization [facility] Address [address] [place] [address] Phone Unavailable Care Team Providers Care Supervisor Steno Pool Name Role Phone NONSTAFF PCP Unavailable Patricia SCHWARTZ Attphys Unavailable Domitila KHANNA, Parminder Orozco Attphys [phone] Tyler KHANNA, Javad Pendleton Attphys [phone] Jonathan KHANNA, Khurram Benjamin Attphys [phone] PARMINDER SNYDER Attphys Unavailable Patricia VELASQUEZ Attphys Unavailable Samuel KHANNA, Yogi Nash Attphys Marcia KHANNA, Eleazar Alicea Attphys Spike KHANNA, Malgorzata Norris Attphys Andrew KHANNA, Kelley Liriano Attphys [phone] Tran KHANNA, Bárbara Peraza Attphys Liset KHANNA, Arnav Miller Attphys Yogi LOPEZ Attphys Unavailable KODY ALEMAN Attphys Unavailable Jamey MAI Attphys Unavailable Jamey Mai MD Attphys Jairo KHANNA, Willie Novak Attphys Es SENIOR REVENUE ACCOUNTANT, Gerardo Attphys Feliciano KHANNA, Matthias Oladapo Attphys [phone] Nadeem KHANNA, Cade Shaver Attphys Oliver KHANNA, Trey Monreal Attphys [phone] Feroz KHANNA, Robi Attphys [phone] Nelida KHANNA, Tommie Solis Attphys NADEEM, CADE SHAVER Attphys Unavailable FELICIANO, MATTHIAS OLADAPO Attphys Unavailable Sukhdev KHANNA, Patricia Cohen Attphys [phone] Jacy KHANNA, Khurram Nevarez Attphys [phone] Ralph KHANNA, Oj Attphys Jaime SORTO, Zaida Baldwin Attphys SHANIQUA STUBBS Attphys Unavailable Vance KHANNA, Shaniqua Guerrero Attphys Leeanna KHANNA, Ricky Attphys Ping Castañeda Attphys JAMES MOYASU Attphys Unavailable Israel KHANNA, James Castillo Attphys Charbel KHANNA, Kristina Bazziita Attphys Emily KHANNA, Yolanda Brownlee Attphys Thomas KHANNA, Tony Attphys Javid KHANNA, Trey Mitchell Attphys Ole RODRIGES Attphys Unavailable XIOMARA TOLENTINO Attphys Unavailable Malgorzata LALA Attphys Unavailable JAROD GARIMA GATES Attphys Unavailable KHURRAM CAVANAUGH Admphys Unavailable Patricia VELASQUEZ Admphys Unavailable KELLEY MADERA Admphys Unavailable Jamey MAI Admphys Unavailable TREY BOYD Admphys Unavailable MARIA LUISARADHAMATTHIASRAHEEM Admphys Unavailable RICKY JACOBSEN Admphys Unavailable TREY SOLOMON Admphys Unavailable Malgorzata LALA Admphys Unavailable Payers Payer Name Policy Type Policy Number Effective Date Expiration Date oSlitario drew [employer] MEDICARE [id number] 2007-Present [id number] 2007 00:00:00 [facility] REVIEWCDC [id number]/[place] [address] [id number] 2020 00:00:[address] [facility] [employer] Medicare Advantage [id number] 2007 00:0 0:00 [facility] Problems Condition Name Condition Details Condition Category Status Onset Date Resolution Date Last Treatment Date Treating Clinician Comments Source Closed fracture of left femur Closed fracture of left femur Disease Active 2020-04-15 00:00:00 [facility] Hyperkalemia Hyperkalemia Disease Active 2020-04-14 00:00:00 [facility] Closed displaced transverse fracture of shaft of left femur, initial encounter Closed displaced transverse fracture of shaft of left femur, initial encounter Disease Active 2020-02-25 00:00:00 [facility] Delirium Delirium Disease Active 2019-09-17 00:00:00 [facility] UTI (urinary tract infection) UTI (urinary tract infection) Disease Active 2019-09-08 00:00:00 [facility] Altered mental status, unspecified altered mental stat us type Altered mental status, unspecified altered mental status type Disease Active 2019-09-05 00:00:00 [facility] ESRD (end stage renal disease) on dialysis ESRD (end s tage renal disease) on dialysis Disease Active 2019-08-29 00:00:00 [facility] Gangrene of right foot Gangrene of right foot Disease Active 2019-08-29 00:00:00 [facility] Hypoxia Hypoxia Disease Active 2019-08-14 00:00:00 [facility] Volume overload Volume overload Disease Active 2019-08-14 00:00:00 [facility] Pneumonia of left lower lobe due to infectious organis m Pneumonia of left lower lobe due to infectious organism Disease Active 2019-08-14 00:00:00 [facility] Acute ischemic stroke Acute ischemic stroke Disease Active 201 03-27-16 00:00:00 [facility] Received intravenous tissue plasminogen activator (tPA ) in emergency department Received intravenous tissue plasminogen activator (tPA) in emergency department Disease Active 2019-06-30 00:00:00 [facility] Hypertension Hypertension Disease Active 2019-06-30 00:00:00 Overview: stress 2008 neg [facility] Peripheral neuropathy Peripheral neuropathy Disease Active 201 03-27-16 00:00:00 [facility] Diabetes Diabetes Disease Active 2019-06-30 00:00:00 [facility] Morbid obesity with BMI of 45.0-49.9, adult Morbid obe sity with BMI of 45.0- 49.9, adult Disease Active 2019-06-30 00:00:00 [facility] HLD (hyperlipidemia) HLD (hyperlipidemia) Disease Active 00:00:00 [facility] Coronary artery disease Coronary artery disease Disease Active 2019-06-30 00:00:00 [facility] Anemia due to blood loss Anemia due to blood loss Disease Acti ve 2019-06-30 00:00:00 [facility] Stroke (cerebrum) Stroke (cerebrum) Disease Active 2019-06-28 00:00:00 [facility] Fever Fever Disease Active 2018-09-13 00:00:00 [facility] GERD (gastroesophageal reflux disease) GERD (gastroesophagea l reflux disease) Disease Active 2018-09-10 00:00:00 [facility] PAD (peripheral artery disease) PAD (peripheral artery disease) Dis ease Active 2018-09-10 00:00:00 [facility] Type 2 diabetes mellitus with hyperglyce ryan, with long-term current use of insulin Type 2 diabetes mellitus with hyperglyce ryan, with long-term current use of insulin Disease Active 2018-09-10 00:00:00 [facility] Hypothyroidism Hypothyroidism Disease Active 2018-09-10 00:00:00 [facility] ESRD on hemodialysis ESRD on hemodialysis Disease Active 00:00:00 [facility] Chronic anemia Chronic anemia Disease Active 2018-09-10 00:00:00 [facility] Gangrene of toe of left foot Gangrene of toe of left foot Disease Active 2018-09-09 00:00:00 [facility] DAVID (obstructive sleep apnea) DAVID (obstructive sleep apnea) Disease Active 2015-02-02 00:00:00 Overview: suspected [facility] ESRD needing dialysis ESRD needing dialysis Disease Active 201 11-20-19 00:00:00 [facility] Bipolar disorder Bipolar disorder Disease Active 2015-01-22 00:00:00 [facility] Chronic diastolic heart failure Chronic diastolic heart failure Dis ease Active 2015-01-22 00:00:00 [facility] Chronic gout Chronic gout Disease Active 2015-01-22 00:00:00 [facility] Hyperlipidemia Hyperlipidemia Disease Active 2015-01-17 00:00:00 [facility] Class 2 severe obesity with serious comorbidity in dewayne lt Class 2 severe obesity with serious comorbidity in adult Disease Active 2015-01-17 00:00:00 [facility] Pre-syncope Near syncope Problem Active [facility] Cellulitis of left foot Cellulitis of left foot Problem Active [facility] Dyspnea Dyspnea Problem Active [facility] Noncompliance with renal dialysis Noncompliance with renal dialy sis Problem Active [facility] Cellulitis Cellulitis Problem Active [facility] Ulcer of left heel Ulcer of left heel Problem Active [facility] Chronic kidney disease Chronic renal disease Problem Active [facility] Impaction of colon Impaction of colon Problem Active [facility] Rectal pain Rectal pain Problem Active [facility] Diverticulitis Diverticulitis Problem Active [facility] Arthralgia of hip Hip pain Problem Active [facility] Hypoglycemia Hypoglycemia Problem Active [facility] Diverticulosis of intestine Problem Active [facility] Junctional bradycardia Problem Active [facility] Essential hypertension Essential hypertension Disease Active [facility] Allergies, Adverse Reactions, Alerts Allergy Name Allergy Type Status Severity Reaction(s) Onset Date Inacti ve Date Treating Clinician Comments Source Morphine Drug Allergy Active Other (See Comments) 2019-09-09 00 :00:00 Confusion [facility] Atorvastatin Allergy to substance Active Hives 2018-12-23 00:00:0 0 [facility] Pneumococcal conjugate vaccine Allergy to substance Active 2018-12-23 00:00:00 [facility] Pneumococcal 23-Nancy Ps Vaccine Drug Allergy Active Hiv es, Shortness Of Breath 2015-05-25 00:00:00 [facility] Atorvastatin Propensity to adverse reactions Active An aphylaxis 2015-01-17 00:00:00 [facility] Pneumococcal Vaccine Propensity to adverse reactions Active Shortness Of Breath 2015-01-17 00:00:00 [facility] Family History Family Member Diagnosis Comments Start Date Stop Date Source 33 FATHER Family history of myocardial infarction [facility] 32 MOTHER Family history of myocardial infarction [facility] 09 BROTHER Family history of myocardial infarction [facility] 09 SISTER Family history of myocardial infarction [facility] Social History Social Habit Start Date Stop Date Quantity Comments Source Sex Assigned At [facility] Exposure to SARS-CoV-2 (event) Not sure [facility] Tobacco use and exposure 2020-04-20 00:00:00 2020-04-20 00:00:00 Naren damon used [facility] Alcohol intake 2020-04-20 00:00:00 2020-04-20 00:00:00 Current non-drinker of alcohol (finding) [facility] Smoking Status Start Date Stop Date Source Never smoker [facility] Ordered Medication Name Filled Medication Name Start Date Stop Da te Current Medication? Ordering Clinician Indication Dosage Frequency Signature (SIG) Comments Components Source levothyroxine (SYNTHROID, LEVOTHROID) 200 MCG tablet 2020-04-17 00:00:00 2021-04-17 23:59:00 Yes 200ug Take 1 tablet (200 mcg total) by mouth Every morning on an empty stomach. [facility] calcium acetate (PHOSLO) 667 mg capsule 2020-04-16 16:35:44 Yes 2001mg Take 2,001 mg by mouth 3 (three) times daily with meals. [facility] aspirin 81 MG EC tablet 2020-04-16 16:35:44 Yes 81mg QD Take 81 mg by mouth daily. [facility] sertraline (ZOLOFT) 25 MG tablet 2020-04-16 16:35:44 Yes 25mg QD Take 25 mg by mouth daily. [facility] fluticasone propionate (FLONASE) 50 mcg/actuation nasal spra y 2020-04-16 16:35:44 Yes 1{spray} QD 1 spray by Nasal route eva moya [facility] venlafaxine (EFFEXOR) 50 MG tablet 2020-04-16 16:35:44 Yes 50mg Q.5D Take 50 mg by mouth 2 (two) times daily. [facility] QUEtiapine (SEROQUEL) 25 MG tablet 2020-04-16 16:35:44 Yes 25mg Q.5D Take 25 mg by mouth 2 (two) times daily. [facility] cilostazoL (PLETAL) 100 MG tablet 2020-04-16 16:35:44 Yes 100mg Q.5D Take 100 mg by mouth 2 (two) times daily. [facility] nitroglycerin (NITROSTAT) 0.4 MG SL tablet 2020-04-16 16:35:[address] 0.4 mg under the tongue every 5 (f jinny) minutes as needed for Chest pain Put 1 pill under tongue every 5min as needed for chest pain.No more than 3 doses in 15min.Call 911 if pain is unrelieved 5min after 1st dose . [facility] carvediloL (COREG) 3.125 MG tablet 2020-04-16 13:10:08 202 00:00:00 No 3.125mg Take 3.125 mg by mouth 2 (two) times daily with breakfast and dinner. [facility] levothyroxine (SYNTHROID, LEVOTHROID) 175 MCG tablet 2020-04-16 12:59:17 2020-04-16 00:00:00 No 175ug Take 175 mcg by mouth Every morning on an empty stomach. [facility] NIFEdipine (ADALAT CC) 30 MG 24 hr tablet 2019-07 12:59:17 2020-04-16 00:00:00 No 30mg QD Take 30 mg by mouth daily. [facility] gabapentin (NEURONTIN) 100 MG capsule 2020-04-16 12:59 :17 2020-04-16 00:00:00 No 100mg QD Take 100 mg by mouth daily. [facility] INSULIN LISPRO SUBQ 2020-04-16 12:59:17 2020-04-16 00:00:00 No 2U Inject 2 Units subcutaneously 3 (three) times daily with meals Do not take if accuchecks < 200 . [facility] rosuvastatin (CRESTOR) 20 MG tablet 2020-04-16 12:59:1 7 2020-04-16 00:00:00 No 10mg QD Take 10 mg by mouth daily. [facility] gabapentin (NEURONTIN) 100 MG capsule 2020-04-16 00:00:00 Y es 100mg QD Take 1 capsule (100 mg total) by mouth nightly. [facility] carvediloL (COREG) 3.125 MG tablet 2020-04-16 00:00:00 Yes 3.125mg Take 1 tablet (3.125 mg total) by mouth 2 (two) times daily with breakfast and dinner Hold on dialysis days. Also hold for SBP <110 or DBP <50 or HR <50.. [facility] epoetin jyothi-epbx (RETACRIT) 10,000 unit/mL Soln injection 2020-04-16 00:00:00 Yes anemia in chronic kidney disease [id number] Inject 1 mL (10,000 Units total) subcutaneously 3 (three) times a week after dialysis MON/WED/FRI. [facility] insulin lispro (HUMALOG) 100 unit/mL injection 2 00:00:00 2021-04-16 23:59:00 Yes 2U Inject 2 Units subcutaneously 3 (three) times daily with meals Do not take if blood glucose < 150.. [facility] NIFEdipine (ADALAT CC) 30 MG 24 hr tablet 2019-07 00:00:00 2021-04-16 23:59:00 Yes 30mg QD Take 1 tablet (30 mg total) by mouth daily Hold on the days of dialysis. Hold also if SBP <110 or DBP <50.. [facility] rosuvastatin (CRESTOR) 20 MG tablet 2020-04-16 00:00:0 0 2021-04-16 23:59:00 Yes 20mg QD Take 1 tablet (20 mg total) by mouth nig htly. [facility] acetaminophen-codeine (TYLENOL #3) 300-30 mg per tablet 2020-04-16 00:00:00 2020-04-26 23:59:00 Yes 1{tbl} Take 1 tablet by mouth every 4 (four) hours as needed for Pain for up to 10 days. Max Daily Amount: 6 tablets [facility] carvediloL (COREG) 12.5 MG tablet 2020-04-16 00:00:00 2019 00:00:00 No 12.5mg Take 1 tablet (1 2.5 mg total) by mouth 2 (two) times daily with breakfast and dinner Hold for SBP <110 or DBP <50 or HR <50.. [facility] HYDROcodone-acetaminophen (NORCO 7.5-325) 7.5-325 mg per tab let 2020-03-02 15:16:06 2020-03-02 00:00:00 No 1{tbl} Take 1 tablet by mouth every 6 (six) hours as needed for Pain. [facility] carvediloL (COREG) 25 MG tablet 2020-03-02 09:39:56 00:00:00 No 25mg Take 25 mg by mouth 2 (two) times daily with br eakfast and dinner. [facility] HYDROcodone-acetaminophen (NORCO 7.5-325) 7.5-325 mg per tab let 2020-03-02 00:00:00 2020-04-16 00:00:00 No 1{tbl} Take 1 tablet by mouth every 6 (six) hours as needed for Pain. Max Daily Amount: 4 tablets [facility] carvediloL (COREG) 3.125 MG tablet 2020-03-02 00:00:00 23:59:00 No 3.125mg Take 1 tablet (3 .125 mg total) by mouth 2 (two) times daily with breakfast and dinner for 30 days. [facility] clindamycin (CLEOCIN) 300 MG capsule 2019-10-27 09:59: 51 2019-10-27 00:00:00 No 300mg Q.[id number] Take 300 mg b y mouth 3 (three) times daily. [facility] cloNIDine [facility] (CATAPRES) 0.1 MG tablet 8 16:19:32 2019-10-22 00:00:00 No .1mg Take 0.1 mg by mouth as needed. [facility] cholestyramine (QUESTRAN) 4 gram PwPk packet 16:19:29 2019-10-22 00:00:00 No 1{packet} Take 1 packet by mouth 2 (two) times daily with breakfast and dinner. [facility] QUEtiapine (SEROQUEL) 25 MG tablet 2019-09-18 00:00:00 23:59:00 No 25mg Q.5D Take 1 tablet (2 5 mg total) by mouth 2 (two) times daily for 14 days Hold morning dose for sedation. [facility] insulin lispro (HUMALOG) 100 unit/mL injection 2 00:00:00 2019-10-22 00:00:00 No 0U Inject 0-12 Un its subcutaneously as needed (High blood sugar). [facility] traZODone (DESYREL) 100 MG tablet 2019-09-17 00:00:00 2019 23:59:00 No 100mg QD Take 1 tablet (100 mg total) by mouth ni ghtly for 14 days. [facility] QUEtiapine (SEROQUEL) 25 MG tablet 2019-09-17 00:00:00 00:00:00 No 25mg QD Take 1 tablet (25 mg total) by mouth nig htly for 14 days. [facility] traZODone (DESYREL) 100 MG tablet 2019-09-17 00:00:00 2019 00:00:00 No 100mg QD Take 1 tablet (100 mg total) by mouth ni ghtly for 10 days. [facility] QUEtiapine (SEROQUEL) 25 MG tablet 2019-09-17 00:00:00 00:00:00 No 25mg QD Take 1 tablet (25 mg total) by mouth nig htly for 10 days. [facility] insulin NPH (HUMULIN N) 100 unit/mL injection 20 04-09-18 00:00:00 2019-09-17 00:00:00 No 10U Inject 10 Unit s subcutaneously 2 (two) times daily before meals Do not give if Accu-Cheks less than 150. [facility] HYDROcodone-acetaminophen (NORCO 7.5-325) 7.5-325 mg per tab let 2019-09-03 00:00:00 2019-09-17 23:59:00 No 1{tbl} Take 1 tablet by mouth every 6 (six) hours as needed for up to 10 days. Max Daily Amount: 4 tablets [facility] NIFEdipine (ADALAT CC) 60 MG 24 hr tablet 09-03 00:00:00 2019-09-03 00:00:00 No 60mg QD Take 1 tablet (60 mg total) by mouth daily for 30 days. [facility] r NIFEdipine (ADALAT CC) 30 MG 24 hr tablet 09-03 00:00:00 2019-09-03 00:00:00 No 30mg QD Take 1 tablet (30 mg total) by mouth daily. [facility] traMADol (ULTRAM) 50 mg tablet 2019-09-02 15:12:10 2019-09-02 00 :00:00 No 50mg Take 50 mg by mouth every 6 (six) hours as needed for Pain. [facility] gabapentin (NEURONTIN) 100 MG capsule 2019-09-02 00:00 :00 2019-09-18 00:00:00 No 200mg Q.[id number] Take 2 capsules (200 mg total) by mouth 3 (three) times daily for 30 days. [facility] Levofloxacin (Levaquin) 500 Mg TABLET Levofloxacin (Levaquin ) 500 Mg TABLET 2019-08-26 09:40:00 Yes 500 Every Other Day [facility] Metronidazole (Flagyl) 500 Mg TABLET Metronidazole (Flagyl) 500 Mg TABLET 2019-08-26 09:40:00 Yes 500 Three Times A Day [facility] AZITHROmycin (ZITHROMAX) 250 MG tablet 2019-07-18 00:00:00 2019-08-20 23:59:00 No Take by mouth as directed.. [facility] metroNIDAZOLE (FLAGYL) 500 MG tablet 2019-07-11 13:52: 20 2019-07-11 00:00:00 No 500mg Q.5D Take 500 mg by mouth 2 (two) times daily . [facility] furosemide (LASIX) 80 MG tablet 2019-07-11 13:52:20 00:00:00 No 80mg Q.5D Take 80 mg by mouth 2 (two) times daily. [facility] ticagrelor (BRILINTA) 90 mg Tab tablet 2019-07-11 00:00:00 Yes 90mg Q.5D Take 1 tablet (90 mg total) by mouth 2 (two) times daily. [facility] melatonin 3 mg Tab tablet 2019-07-11 00:00:00 2019-09-18 00:00:0 0 No 3mg QD Take 1 tablet (3 mg total) by mouth nightly. [facility] clindamycin (CLEOCIN) 300 MG capsule 2019-07-11 00:00: 00 2019-07-15 23:59:00 No 300mg Take 1 capsule (300 mg total) by mouth every 8 (eight) hours for 4 days. [facility] Levofloxacin (Levaquin) 500 Mg TABLET Levofloxacin (Levaquin ) 500 Mg TABLET 2019-06-04 14:48:00 2019-08-26 00:00:00 No 500 Every Other Day [facility] Metronidazole (Flagyl) 500 Mg TABLET Metronidazole (Flagyl) 500 Mg TABLET 2019-06-04 14:46:00 2019-08-26 00:00:00 No 500 Three Times A Day [facility] Clopidogrel Bisulfate (Clopidogrel) 75 Mg TABLET Clopi dogrel Bisulfate (Clopidogrel) 75 Mg TABLET 2019-06-04 14:27:00 Yes 75 Daily [facility] Furosemide Furosemide 2019-06-04 14:27:00 Yes 80 Twi ce A Day [facility] Levothyroxine Sodium Levothyroxine Sodium 2019-06-04 14:27:00 Yes 175 Daily [facility] epoetin jyothi-epbx (RETACRIT) 10,000 unit/mL Soln injection 2018-09-18 00:00:00 2020-04-16 00:00:00 No anemia in chronic kidney disea se [id number] Inject 1 mL (10,000 Units total) subcutaneously 3 (three) times a week at bedtime. [facility] bisacodyl (DULCOLAX) 5 mg EC tablet 2018-09-17 00:00:00 Yes 10mg Take 2 tablets (10 mg total) by mouth daily as needed for Constipation. [facility] famotidine (PEPCID) 20 MG tablet 2018-09-17 00:00:00 Yes 20mg QD Take 1 tablet (20 mg total) by mouth daily. [facility] polyethylene glycol (GLYCOLAX) 17 gram packet 2018-09-17 00:00:0 0 Yes 17g QD Take 17 g by mouth daily. [facility] fluticasone (FLONASE) 50 mcg/actuation nasal spray 2018-09-17 00:00:00 2020-04-16 00:00:00 No 1{spray} QD 1 spray by Nasal ro kaguyuk daily. [facility] insulin NPH (HUMULIN N) 100 unit/mL injection 20 01-10-04 00:00:00 2019-09-03 00:00:00 No 13U Inject 13 Unit s subcutaneously 2 (two) times daily before meals Do not give if Accu-Cheks less than 150. [facility] HYDROcodone-acetaminophen (NORCO 5-325) 5-325 mg per tablet 2018-09-17 00:00:00 2019-09-03 00:00:00 No 1{tbl} Take 1 tablet by mouth every 6 (six) hours as needed (For severe pain). Max Daily Amount: 4 tablets [facility] heparin injection 5,000 units/mL for DVT prophylaxis/dialysi s lock/IV bolus 2018-09-17 00:00:00 2019-09-02 00:00:00 No 5000U Inject 1 mL (5,000 Units total) subcutaneously every 12 (twelve) hours. [facility] insulin lispro (HUMALOG) 100 unit/mL injection 2 00:00:00 2019-09-02 00:00:00 No 0U Inject 0-12 Un its subcutaneously as needed (High blood sugar). [facility] insulin lispro (HUMALOG) 100 unit/mL injection 2 00:00:00 2019-09-02 00:00:00 No 0U Inject 0-4 Uni ts subcutaneously every night as needed (High blood sugar). [facility] rosuvastatin (CRESTOR) 10 MG tablet 2018-07-28 00:00:0 0 2019-10-27 00:00:00 No 10mg QD Take 1 tablet (10 mg total) by mouth timoteo salmon [facility] NIFEdipine (ADALAT CC) 30 MG 24 hr tablet 07-28 00:00:00 2019-09-02 00:00:00 No 30mg QD Take 1 tablet (30 mg total) by mouth daily. [facility] clopidogrel (PLAVIX) 75 mg tablet 2018-07-28 00:00:00 2018 00:00:00 No 75mg QD Take 1 tablet (75 mg total) by mouth timoteo aponte. [facility] docusate sodium (COLACE) 100 MG capsule 2018-07-27 00:00:00 Yes 100mg Q.5D Take 1 capsule (100 mg total) by mouth 2 (two) times daily. [facility] carvedilol (COREG) 3.125 MG tablet 2018-07-27 00:00:00 00:00:00 No 3.125mg Take 1 tablet (3 .125 mg total) by mouth 2 (two) times daily with breakfast and dinner. [facility] cilostazol (PLETAL) 50 MG tablet 2018-07-27 00:00:00 2019-07 23:59:00 No 50mg Q.5D Take 1 tablet (50 mg total) by mouth 2 (two) ti mes daily. [facility] nitroglycerin (NITROSTAT) 0.4 MG SL tablet 07-27 00:00:00 2019-07-27 23:59:00 No Put 1 pill und er tongue every 5min as needed for chest pain.No more than 3 doses in 15min.Call 911 if pain is unrelieved. [facility] cholecalciferol, vitamin D3, (VITAMIN D3) 2,000 unit Cap 2014-01-02 00:00:00 2019-10-22 00:00:00 No After you have finished the prescription strength vitamin D (around 01/02/14), start taking [id number] vitamin D3 2000 units daily.. [facility] Calcium Acetate Calcium Acetate Yes 667 Three Ti mes A Day [facility] Carvedilol Carvedilol Yes 3.125 Twice A Day [facility] Cilostazol Cilostazol Yes 50 Daily [facility] Docusate Sodium Docusate Sodium Yes 100 [facility] Hydrocortisone (Anusol-Hc) 30 Gm CREAM..G. Hydrocortis one (Anusol-Hc) 30 Gm CREAM..G. Yes 30 Twice A Day [facility] Melatonin Melatonin Yes 3 [facility] [facility] Nifedipine (Procardia Xl) 30 Mg TAB.ER.24 Nifedipine ( Procardia Xl) 30 Mg TAB.ER.24 Yes 30 Daily [facility] Oxycodone Hcl/Acetaminophen (Oxycodone-Acetaminophen 5 -325) 1 Each TABLET Oxycodone Hcl/Acetaminophen (Oxycodone-Acetaminophen 5-325) 1 Each TABLET Yes [facility] Clopidogrel Bisulfate (Clopidogrel) 75 Mg TABLET Clopi dogrel Bisulfate (Clopidogrel) 75 Mg TABLET 2019-06-04 00:00:00 No 75 Daily [facility] Furosemide Furosemide 2019-06-04 00:00:00 No 40 Twi ce A Day [facility] Furosemide Furosemide 2019-06-04 00:00:00 No 80 Twi ce A Day [facility] Levothyroxine Sodium Levothyroxine Sodium 2019-06-04 00:00:00 No 175 Daily [facility] Levothyroxine Sodium (Synthroid) 112 Mcg TABLET Levoth yroxine Sodium (Synthroid) 112 Mcg TABLET 2018-11-08 00:00:00 No 112 Today At 6:30AM [facility] Calcium Acetate Calcium Acetate 2018-11-07 00:00:00 No [facility] Furosemide (Lasix) 40 Mg TABLET Furosemide (Lasix) 40 Mg TABLET 2018-11-07 00:00:00 No 80 Twice A Day [facility] Lisinopril Lisinopril 2018-11-07 00:00:00 No Twi ce A Day [facility] Lisinopril Lisinopril 2018-11-07 00:00:00 No 40 Twi ce A Day [facility] Vital Signs Vital Name Observation Time Observation Value Comments Source Systolic blood pressure 2020-04-16 15:00:00 156 mm[Hg] [facility] Diastolic blood pressure 2020-04-16 15:00:00 67 mm[Hg] [facility] Heart rate 2020-04-16 15:00:00 82 /min [facility] Body temperature 2020-04-16 15:00:00 36.17 Thalia [facility] Respiratory rate 2020-04-16 15:00:00 18 /min [facility] Oxygen saturation in Arterial blood by Pulse oximetry 2019-07 002 15:00:00 92 [facility] 2020-04-16 11:15:00 86 kg [facility] BMI 2020-04-16 11:15:00 30.60 kg/m2 [facility] Body height 2020-04-14 12:55:00 167.6 cm [facility] Body Temperature 2020-04-07 17:07:00 98.1 [degF] [facility] BMI (Body Mass Index) 2020-04-05 23:13:00 32.8 kg/m2 [facility] Weight 2020-04-05 14:42:00 203 [lb_av] [facility] Procedures Procedure Date / Time Performed Performing Clinician [facility] RHYTHM STRIP - SCAN 2020-04-19 11:13:10 Provider, Default Scanni ng [facility] REPORT OF PROCEDURE - ENDOSCOPY SCAN 2020-04-19 11:13:05 Pro vider, Default Scanning [facility] POCT-GLUCOSE METER 2020-04-16 11:59:00 Helder Scott [facility] POCT-GLUCOSE METER 2020-04-16 07:40:00 Helder Scott [facility] BASIC METABOLIC PANEL (7) 2020-04-16 04:15:00 Cassidy Cavanaugh [facility] MAGNESIUM 2020-04-16 04:15:00 JonathanCassidy thomas [facility] PHOSPHORUS 2020-04-16 04:15:00 Cassidy Cavanaugh [facility] IRON, TIBC, % SAT. (WITHOUT FERRITIN) 2020-04-16 04:15:00 Helder Miller [facility] FERRITIN 2020-04-16 04:15:00 Helder Scott [facility] VITAMIN B12 AND FOLATE 2020-04-16 04:15:00 Helder Scott [facility] TSH/FREE T4 IF INDICATED 2020-04-16 04:15:00 Helder Scott [facility] HEMOGLOBIN A1C 2020-04-16 04:15:00 Helder Scott [facility] LIPID PANEL 2020-04-16 04:15:00 Helder Scott [facility] HEPATIC FUNCTION PANEL 2020-04-16 04:15:00 Helder Scott [facility] T4, FREE 2020-04-16 04:15:00 Helder Scott [facility] CBC W/PLT COUNT & AUTO DIFFERENTIAL 2020-04-16 04:15:00 Jamey Cavanaugh [facility] POCT-GLUCOSE METER 2020-04-15 20:54:00 Helder Scott [facility] POCT-GLUCOSE METER 2020-04-15 16:35:00 Helder Scott [facility] POCT-GLUCOSE METER 2020-04-15 11:13:00 Helder Scott [facility] POCT-GLUCOSE METER 2020-04-15 06:10:00 [facility] BASIC METABOLIC PANEL (7) 2020-04-15 04:16:00 Cassidy Cavanaugh [facility] MAGNESIUM 2020-04-15 04:16:00 Cassidy Cavanaugh [facility] PHOSPHORUS 2020-04-15 04:16:00 Cassidy Cavanaugh [facility] TROPONIN I 2020-04-15 04:16:00 Cassidy Cavanaugh [facility] CBC W/PLT COUNT & AUTO DIFFERENTIAL 2020-04-15 04:16:00 Jamey Cavanaugh [facility] TROPONIN I 2020-04-15 00:24:00 Pam Snyder [facility] POCT-GLUCOSE METER 2020-04-15 00:24:00 [facility] HEPATITIS B SURFACE ANTIGEN 2020-04-14 20:15:00 Justin Thakur wen [facility] POCT-GLUCOSE METER 2020-04-14 19:10:00 Pam Snyder [facility] SARS-COV2/RT-PCR ([facility]) 2020-04-14 18:29:00 Pam Anderson [facility] POCT-GLUCOSE METER 2020-04-14 18:15:00 Pam Snyder [facility] TROPONIN I 2020-04-14 16:25:00 Pam Snyder [facility] POTASSIUM 2020-04-14 16:25:00 Pam Snyder [facility] XR CHEST 1 VIEW PORTABLE/BEDSIDE 2020-04-14 16:05:00 Pam Snyder [facility] XR SPINE THORACIC 2 VIEWS 2020-04-14 16:05:00 Pam Snyder [facility] XR PELVIS 1 OR 2 VIEWS 2020-04-14 16:05:00 Pam Snyder [facility] XR FEMUR 2 VIEWS LEFT 2020-04-14 16:05:00 Pam Snyder [facility] XR KNEE LEFT COMPLETE (4 VIEWS) 2020-04-14 16:05:00 Jessica Snyder [facility] XR ANKLE 3 VIEWS LEFT 2020-04-14 16:05:00 Pam Snyder [facility] ECG 12-LEAD 2020-04-14 15:02:43 Unknown, Hl7 Doctor [facility] BASIC METABOLIC PANEL (7) 2020-04-14 14:53:00 Pam Snyder [facility] PT/APTT 2020-04-14 14:53:00 Pam Snyder [facility] TROPONIN I 2020-04-14 14:53:00 Pam Snyder [facility] B-TYPE NATRIURETIC FACTOR (BNP) 2020-04-14 14:53:00 Jessica Snyder [facility] CREATINE KINASE (CK) 2020-04-14 14:53:00 Pam Snyder [facility] CBC W/PLT COUNT & AUTO DIFFERENTIAL 2020-04-14 14:53:00 Pam Urena [facility] REPORT OF PROCEDURE - ENDOSCOPY SCAN 2020-03-05 09:31:26 Pro vider, Default Scanning [facility] TRANSFUSION SERVICE REPORT - SCAN 2020-03-03 18:01:06 Provid er, Default Scanning [facility] RHYTHM STRIP - SCAN 2020-03-03 11:33:57 Provider, Default Scanni [facility] PREPARE LEUKO-REDUCED RBC 2020-03-02 23:54:00 Jr Lala [facility] TRANSFUSION SERVICE REPORT - SCAN 2020-03-02 18:21:14 Provid er, Default Scanning [facility] POCT-GLUCOSE METER 2020-03-02 16:25:00 [facility] POCT-GLUCOSE METER 2020-03-02 11:34:00 [facility] POCT-GLUCOSE METER 2020-03-02 07:58:00 [facility] BASIC METABOLIC PANEL (7) 2020-03-02 04:19:00 Karen Jade [facility] MAGNESIUM 2020-03-02 04:19:00 Karen Jade [facility] PHOSPHORUS 2020-03-02 04:19:00 Karen Jade [facility] CBC W/PLT COUNT & AUTO DIFFERENTIAL 2020-03-02 04:19:00 Jr Berry [facility] POCT-GLUCOSE METER 2020-03-01 21:58:00 Jr Lala [facility] TRANSFUSE LEUKO-REDUCED RED BLOOD CELLS 2020-03-01 18:29:04 Jr Lala [facility] TRANSFUSION SERVICE REPORT - SCAN 2020-03-01 18:00:23 Provid er, Default Scanning [facility] POCT-GLUCOSE METER 2020-03-01 15:24:00 Jr Lala [facility] POCT-GLUCOSE METER 2020-03-01 13:31:00 Jr Lala [facility] HEMODIALYSIS INPATIENT 2020-03-01 11:00:10 Courtney Burton [facility] IRON, SERUM 2020-03-01 10:50:00 Jr Lala [facility] FERRITIN 2020-03-01 10:50:00 Jr Lala [facility] TYPE AND SCREEN, AUTOMATED 2020-03-01 10:40:00 Jr Lala [facility] POCT-GLUCOSE METER 2020-03-01 07:18:00 Jr Lala [facility] BASIC METABOLIC PANEL (7) 2020-03-01 04:09:00 Karen Jade [facility] MAGNESIUM 2020-03-01 04:09:00 Karen Jade [facility] PHOSPHORUS 2020-03-01 04:09:00 Karen Jade Karin [facility] RETICULOCYTE COUNT 2020-03-01 04:09:00 Jr Lala [facility] CBC W/PLT COUNT & AUTO DIFFERENTIAL 2020-03-01 04:09:00 Jr Berry [facility] PREPARE RBC 2020-02-29 23:54:00 Deandra Madera [facility] POCT-GLUCOSE METER 2020-02-29 20:45:00 rJ Lala [facility] TRANSFUSION SERVICE REPORT - SCAN 2020-02-29 18:00:43 Provid er, Default Scanning [facility] POCT-GLUCOSE METER 2020-02-29 16:52:00 Jr Lala [facility] POCT-GLUCOSE METER 2020-02-29 11:34:00 Jr Lala [facility] POCT-GLUCOSE METER 2020-02-29 07:53:00 Jr Lala [facility] BASIC METABOLIC PANEL (7) 2020-02-29 05:03:00 Karen Jade Karin [facility] MAGNESIUM 2020-02-29 05:03:00 Karen Jade [facility] PHOSPHORUS 2020-02-29 05:03:00 Karen Jade [facility] CBC W/PLT COUNT & AUTO DIFFERENTIAL 2020-02-29 05:03:00 Jr Berry [facility] POCT-GLUCOSE METER 2020-02-28 20:38:00 Jr Lala [facility] TRANSFUSION SERVICE REPORT - SCAN 2020-02-28 18:00:38 Provid er, Default Scanning [facility] POCT-GLUCOSE METER 2020-02-28 17:05:00 Jr Lala [facility] POCT-GLUCOSE METER 2020-02-28 13:17:00 Jr Lala [facility] POCT-GLUCOSE METER 2020-02-28 10:16:00 Jr Lala [facility] TRANSFUSE LEUKO-REDUCED RED BLOOD CELLS 2020-02-28 09:33:41 Al Tate [facility] HEMODIALYSIS INPATIENT 2020-02-28 08:39:15 Nalini Nelson [facility] Solitario [facility] BASIC METABOLIC PANEL (7) 2020-02-28 04:56:00 Karen Jade [facility] MAGNESIUM 2020-02-28 04:56:00 Karen Jade Karin [facility] PHOSPHORUS 2020-02-28 04:56:00 Yelena Jadeny [facility] CBC W/PLT COUNT & AUTO DIFFERENTIAL 2020-02-28 04:56:00 Kalie Karen [facility] POCT-GLUCOSE METER 2020-02-27 21:44:00 Jr Lala [facility] TRANSFUSION SERVICE REPORT - SCAN 2020-02-27 18:01:10 Provid er, Default Scanning [facility] POCT-GLUCOSE METER 2020-02-27 15:21:00 Marcia [facility] TRANSFUSE LEUKO-REDUCED RED BLOOD CELLS 2020-02-27 13:22:23 Annalisa Braga [facility] POCT-GLUCOSE METER 2020-02-27 11:34:00 Marcia [facility] POCT-GLUCOSE METER 2020-02-27 10:11:00 Marcia [facility] POCT-GLUCOSE METER 2020-02-27 07:38:00 Marcia [facility] PREPARE LEUKO-REDUCED RBC 2020-02-27 07:09:00 Annalisa Braga I [facility] BASIC METABOLIC PANEL (7) 2020-02-27 03:40:00 Kalie Karen [facility] MAGNESIUM 2020-02-27 03:40:00 Kalie Karen [facility] PHOSPHORUS 2020-02-27 03:40:00 Kalie Karen [facility] CBC W/PLT COUNT & AUTO DIFFERENTIAL 2020-02-27 03:40:00 [facility] POCT-GLUCOSE METER 2020-02-26 19:04:00 Marcia [facility] FL FLUORO NON-SPECIFIC UP TO 1 HOUR 2020-02-26 17:15:00 Deandra Madera [facility] ORIF,FEMUR 2020-02-26 14:45:00 Deandra Madera [facility] POCT-GLUCOSE METER 2020-02-26 13:18:00 [facility] POCT-GLUCOSE METER 2020-02-26 07:27:00 [facility] TYPE AND SCREEN, AUTOMATED 2020-02-26 07:24:00 Feliciano Goyo imbobrit [facility] BASIC METABOLIC PANEL (7) 2020-02-26 03:05:00 JadeKaren peters [facility] MAGNESIUM 2020-02-26 03:05:00 JadeKaren [facility] PHOSPHORUS 2020-02-26 03:05:[address] [facility] CBC W/PLT COUNT & AUTO DIFFERENTIAL 2020-02-26 03:05:00 [facility]ie [facility] HEMODIALYSIS INPATIENT 2020-02-26 02:14:00 Courtney Burton [facility] POCT-GLUCOSE METER 2020-02-26 01:35:00 [facility] HEPATITIS B SURFACE ANTIGEN 2020-02-25 21:03:00 Pool Hamilton [facility] BASIC METABOLIC PANEL (7) 2020-02-25 21:03:00 Maged Garcia [facility] ECG 12-LEAD 2020-02-25 17:40:20 Unknown, Hl7 Doctor [facility] SARS-COV2/RT-PCR ([facility]) 2020-02-25 17:31:00 SamuelSa alia [facility] PROTHROMBIN TIME/INR 2020-02-25 17:24:00 Saad Lopez [facility] BASIC METABOLIC PANEL (7) 2020-02-25 17:23:00 Saad Lopez [facility] CBC W/PLT COUNT & AUTO DIFFERENTIAL 2020-02-25 17:23:00 Solitario Lopez [facility] PLACE NEEDLE IN VEIN 2020-02-25 16:23:26 Saad Lopez [facility] CRITICAL CARE 2020-02-25 16:23:26 Samuel, Saad K. [facility] ED ECG INTERPRETATION 2020-02-25 16:23:26 Saad Lopez [facility] ECG 12-LEAD 2020-02-25 16:17:39 Unknown, Hl7 Doctor [facility] XR PELVIS 1 OR 2 VIEWS 2020-02-25 16:08:00 Saad Lopez [facility] XR FEMUR 2 VIEWS LEFT 2020-02-25 16:08:00 Saad Lopez [facility] POCT-GLUCOSE METER 2019-10-27 16:32:00 Amarjit, Juan J Concepcion [facility] POCT-GLUCOSE METER 2019-10-27 11:18:00 Amarjit, Juan J Concepcion [facility] POCT-GLUCOSE METER 2019-10-26 21:49:00 Amarjit, Juan J Concepcion [facility] POCT-GLUCOSE METER 2019-10-26 16:54:00 Amarjit, Juan J Concepcion [facility] POCT-GLUCOSE METER 2019-10-26 12:16:00 Amarjit, Juan J Concepcion [facility] POCT-GLUCOSE METER 2019-10-26 08:13:00 Amarjit, Juan J Concepcion [facility] POCT-GLUCOSE METER 2019-10-25 21:18:00 Amarjit, Juan J Concepcion [facility] TRANSFUSION SERVICE REPORT - SCAN 2019-10-25 17:50:40 Provid er, Default Scanning [facility] POCT-GLUCOSE METER 2019-10-25 17:24:00 Amarjit, Juan J Concepcion [facility] POCT-GLUCOSE METER 2019-10-25 12:57:00 Amarjit, Juan J Concepcion [facility] POCT-GLUCOSE METER 2019-10-25 11:13:00 Amarjit, Juan J Concepcion [facility] POCT-GLUCOSE METER 2019-10-25 08:24:00 Amarjit, Juan J Concepcion [facility] HEMODIALYSIS INPATIENT 2019-10-25 08:17:49 Omar, [facility] BASIC METABOLIC PANEL (7) 2019-10-25 07:57:00 Amarjit, Juan Jevaristo Concepcion CH I [facility] CBC W/PLT COUNT & AUTO DIFFERENTIAL 2019-10-25 07:57:00 Amarjit, [facility] POCT-GLUCOSE METER 2019-10-24 20:33:00 Amarjit, [facility] POCT-GLUCOSE METER 2019-10-24 18:10:00 Amarjit, [facility] VANCOMYCIN LEVEL, RANDOM 2019-10-24 17:51:00 Shanelle Manzanares [facility] POCT-GLUCOSE METER 2019-10-24 12:52:00 Amarjit, [facility] TISSUE EXAM 2019-10-24 11:36:00 Feliciano [facility] AMPUTATION,FOOT 2019-10-24 10:41:00 [facility] 2019-10-24 09:48:00 Amarjit, [facility] POCT-GLUCOSE METER 2019-10-24 06:41:00 Amarjit, [facility] TYPE AND SCREEN, AUTOMATED 2019-10-24 04:21:00 Goyo Haji Ab imbola [facility] POCT-GLUCOSE METER 2019-10-23 21:26:00 Amarjit, [facility] POCT-GLUCOSE METER 2019-10-23 16:36:00 Amarjit, [facility] VANCOMYCIN LEVEL, RANDOM 2019-10-23 14:00:00 Shanelle Manzanares [facility] HEPATITIS B SURFACE ANTIGEN 2019-10-23 14:00:00 Amarjit, [facility] POCT-GLUCOSE METER 2019-10-23 12:04:00 Amarjit, [facility] HEMODIALYSIS INPATIENT 2019-10-23 07:57:22 Omar [facility] PT/APTT 2019-10-23 05:04:00 Juan J Mai [facility] BASIC METABOLIC PANEL (7) 2019-10-23 05:04:00 Juan J Mai CH I [facility] CBC W/PLT COUNT & AUTO DIFFERENTIAL 2019-10-23 05:04:00 Jamey Reyes [facility] POCT-GLUCOSE METER 2019-10-22 22:20:00 Juan J Mai [facility] POCT-GLUCOSE METER 2019-10-22 17:47:00 Amarjit Juan J Vern [facility] HEMOGLOBIN A1C 2019-10-22 17:29:00 [facility] ECG 12-LEAD 2019-10-22 17:05:42 Unknown, Hl7 Doctor [facility] BASIC METABOLIC PANEL (7) 2019-10-22 16:59:00 Kate Reyes [facility] MAGNESIUM 2019-10-22 16:59:00 Kate Reyes [facility] PHOSPHORUS 2019-10-22 16:59:00 [facility] REPORT OF PROCEDURE - ENDOSCOPY SCAN 2019-09-22 10:10:41 Pro vider, Default Scanning [facility] RHYTHM STRIP - SCAN 2019-09-22 10:10:32 Provider, Default Scanni [facility] POCT-GLUCOSE METER 2019-09-19 08:06:00 Krause, [facility] POCT-GLUCOSE METER 2019-09-18 21:00:00 Krause, [facility] POCT-GLUCOSE METER 2019-09-18 16:49:00 Krause, [facility] HEMODIALYSIS INPATIENT 2019-09-18 15:25:12 Courtney Burton [facility] POCT-GLUCOSE METER 2019-09-18 11:36:00 Krause, [facility] POCT-GLUCOSE METER 2019-09-18 07:37:00 Krause, [facility] POCT-GLUCOSE METER 2019-09-17 22:11:00 Krause, [facility] POCT-GLUCOSE METER 2019-09-17 16:27:00 Krause, [facility] POCT-GLUCOSE METER 2019-09-17 07:42:00 Krause, [facility] POCT-GLUCOSE METER 2019-09-16 20:29:00 Krause, [facility] POCT-GLUCOSE METER 2019-09-16 17:15:00 Krause, [facility] POCT-GLUCOSE METER 2019-09-16 11:21:00 Krause, [facility] HEMODIALYSIS INPATIENT 2019-09-16 09:43:52 Courtney Burton [facility] BASIC METABOLIC PANEL (7) 2019-09-16 04:13:00 Jessica Castellano [facility] CBC W/PLT COUNT & AUTO DIFFERENTIAL 2019-09-16 04:13:00 Jessica Castellano [facility] POCT-GLUCOSE METER 2019-09-15 21:13:00 Krause, [facility] POCT-GLUCOSE METER 2019-09-15 18:06:00 Krause, [facility] POCT-GLUCOSE METER 2019-09-15 12:01:00 Krause, [facility] POCT-GLUCOSE METER 2019-09-15 08:05:00 Robi Redman [facility] POCT-GLUCOSE METER 2019-09-14 20:38:00 Robi Redman [facility] POCT-GLUCOSE METER 2019-09-14 16:31:00 Robi Redman [facility] POCT-GLUCOSE METER 2019-09-14 11:26:00 Robi Redman [facility] POCT-GLUCOSE METER 2019-09-14 05:49:00 Krause, [facility] BASIC METABOLIC PANEL (7) 2019-09-13 15:08:00 Courtney Burton Vern [facility] HEMOGLOBIN AND HEMATOCRIT 2019-09-13 15:08:00 Courtney Burton [facility] PHOSPHORUS 2019-09-13 15:08:00 Courtney Burton [facility] POCT-GLUCOSE METER 2019-09-13 11:14:00 Krause, [facility] POCT-GLUCOSE METER 2019-09-13 06:58:00 Krause, [facility] HEPATITIS B SURFACE ANTIGEN 2019-09-13 04:47:00 Abimbola Burton Vern [facility] POCT-GLUCOSE METER 2019-09-12 20:45:00 Krause, [facility] POCT-GLUCOSE METER 2019-09-12 16:36:00 Krause, [facility] POCT-GLUCOSE METER 2019-09-12 12:15:00 Krause, [facility] POCT-GLUCOSE METER 2019-09-12 07:12:00 Krause, [facility] POCT-GLUCOSE METER 2019-09-11 21:50:00 Krause, [facility] HEMODIALYSIS INPATIENT 2019-09-11 15:34:[address] [facility] POCT-GLUCOSE METER 2019-09-11 07:43:00 Krause, [facility] POCT-GLUCOSE METER 2019-09-10 21:34:00 Krause, [facility] POCT-GLUCOSE METER 2019-09-10 18:08:00 Krause, [facility] RHYTHM STRIP - SCAN 2019-09-10 14:00:55 Farhad Gonzalez [facility] POCT-GLUCOSE METER 2019-09-10 11:51:00 Krause, [facility] POCT-GLUCOSE METER 2019-09-10 08:52:00 Krause, [facility] BASIC METABOLIC PANEL (7) 2019-09-10 04:33:00 Krause, [facility] PHOSPHORUS 2019-09-10 04:33:00 Krause, [facility] POCT-GLUCOSE METER 2019-09-09 20:35:00 Krause, [facility] HEMODIALYSIS INPATIENT 2019-09-09 12:23:00 Courtney Burton [facility] RHYTHM STRIP - SCAN 2019-09-09 10:31:32 Farhad Gonzalez [facility] POCT-GLUCOSE METER 2019-09-09 10:08:00 Krause, [facility] POCT-GLUCOSE METER 2019-09-08 20:30:00 Krause, [facility] POCT-GLUCOSE METER 2019-09-08 16:26:00 Krause, [facility] POCT-GLUCOSE METER 2019-09-08 12:11:00 Krause, [facility] POCT-GLUCOSE METER 2019-09-08 08:29:00 Krause, [facility] PHOSPHORUS 2019-09-08 05:37:00 Rah Boyd [facility] POCT-GLUCOSE METER 2019-09-07 21:26:00 Rah Boyd [facility] POCT-GLUCOSE METER 2019-09-07 18:10:00 Rha Boyd [facility] PHOSPHORUS 2019-09-07 04:27:00 Rah Boyd [facility] BASIC METABOLIC PANEL (7) 2019-09-07 04:27:00 Rah Boyd [facility] MAGNESIUM 2019-09-07 04:27:00 Rah Boyd [facility] CBC W/PLT COUNT & AUTO DIFFERENTIAL 2019-09-07 04:27:00 Rah Boyd [facility] POCT-GLUCOSE METER 2019-09-06 21:23:00 Rah Boyd [facility] POCT-GLUCOSE METER 2019-09-06 12:22:00 Rah Boyd [facility] POCT-GLUCOSE METER 2019-09-06 07:22:00 Rah Boyd [facility] BASIC METABOLIC PANEL (7) 2019-09-06 04:08:00 Rah Boyd Marbin sunshine [facility] MAGNESIUM 2019-09-06 04:08:00 Rah Boyd [facility] PHOSPHORUS 2019-09-06 04:08:00 Rah Boyd [facility] CBC W/PLT COUNT & AUTO DIFFERENTIAL 2019-09-06 04:08:00 Rah Boyd [facility] POCT-GLUCOSE METER 2019-09-05 22:45:00 Rah Boyd [facility] CT BRAIN WITHOUT IV CONTRAST 2019-09-05 17:42:00 Kaitlyn Silver [facility] XR CHEST PA OR AP 1 VIEW IN DEPT. 2019-09-05 17:27:00 Rhona Cotton [facility] CRITICAL CARE 2019-09-05 17:05:15 Rhona Silver [facility] URINE CULTURE 2019-09-05 16:38:00 Iesha Palomo [facility] URINALYSIS W/ REFLEX URINE CULTURE 2019-09-05 16:38:00 Ole Palomo [facility] BASIC METABOLIC PANEL (7) 2019-09-05 15:32:00 Iesha Palomo [facility] HEPATIC FUNCTION PANEL 2019-09-05 15:32:00 Iesha Palomo [facility] AMYLASE 2019-09-05 15:32:00 Iesha Palomo [facility] LIPASE 2019-09-05 15:32:00 Iesha Palomo [facility] PT/APTT 2019-09-05 15:32:00 [facility] 2019-09-05 15:32:00 Iesha Palomo [facility] CBC W/PLT COUNT & AUTO DIFFERENTIAL 2019-09-05 15:32:00 [facility]AD 2019-09-05 15:17:39 Unknown, Hl7 Doctor [facility] Computed tomography of brain without radiopaque contrast 202 00:00:00 KODY COLE [facility] Computed tomography of cervical spine without contrast 09-04 00:00:00 KODY COLE [facility] Computed tomography of lumbar spine without contrast 2019-08 00:00:00 KODY COLE [facility] Computed tomography of pelvis without contrast 2019-09-04 00 :00:00 KODY COLE [facility] CT maxillofacial area wo contrast 2019-09-04 00:00:00 ÁLVARO ALEMAN [facility] POCT-GLUCOSE METER 2019-09-03 17:27:00 Goyo Haji Matthias C [facility] POCT-GLUCOSE METER 2019-09-03 11:25:00 Goyo Haji Matthias C [facility] POCT-GLUCOSE METER 2019-09-03 07:38:00 Goyo Haji Matthias C [facility] BASIC METABOLIC PANEL (7) 2019-09-03 05:39:00 Jessica Castellano [facility] POCT-GLUCOSE METER 2019-09-02 20:30:00 Goyo Haji Matthias C [facility] POCT-GLUCOSE METER 2019-09-02 18:16:00 Goyo Haji Matthias C [facility] HEMODIALYSIS INPATIENT 2019-09-02 17:42:00 Courtney Burton [facility] BASIC METABOLIC PANEL (7) 2019-09-02 13:05:00 Goyo Haji [facility] POCT-GLUCOSE METER 2019-09-02 11:09:00 Maria LuisaGoyo christopher Matthias C [facility] POCT-GLUCOSE METER 2019-09-02 07:32:00 Maria LuisaGoyo christopher Matthias C [facility] POCT-GLUCOSE METER 2019-09-02 00:12:00 Maria LuisaGoyo christopher Matthias C [facility] POCT-GLUCOSE METER 2019-09-01 21:41:00 Maria LuisaGoyo christopher Matthias C [facility] POCT-GLUCOSE METER 2019-09-01 20:23:00 Mraia LuisaGoyo christopher Matthias C [facility] POCT-GLUCOSE METER 2019-09-01 18:39:00 Maria LuisaGoyo christopher Matthias C [facility] POCT-GLUCOSE METER 2019-09-01 18:13:00 Goyo Haji Matthias C [facility] POCT-GLUCOSE METER 2019-09-01 17:18:00 Goyo Haji Matthias C [facility] POCT-GLUCOSE METER 2019-09-01 12:07:00 Goyo Haji Matthias C [facility] POCT-GLUCOSE METER 2019-09-01 07:25:00 Goyo Haji Matthias C [facility] POCT-GLUCOSE METER 2019-08-31 22:05:00 Goyo Hajimbola C HI [facility] POCT-GLUCOSE METER 2019-08-31 17:36:00 Goyo Haji Matthias C [facility] POCT-GLUCOSE METER 2019-08-31 11:14:00 Goyo Haji Matthias C HI [facility] POCT-GLUCOSE METER 2019-08-31 09:20:00 Goyo Haji Matthias C HI [facility] POCT-GLUCOSE METER 2019-08-31 04:27:00 Goyo Hajimbola C HI [facility] POCT-GLUCOSE METER 2019-08-30 21:53:00 Goyo Hajimbola C HI [facility] TRANSFUSION SERVICE REPORT - SCAN 2019-08-30 17:51:03 Provid er, Default Scanning [facility] POCT-GLUCOSE METER 2019-08-30 16:21:00 Goyo Haji [facility] POCT-GLUCOSE METER 2019-08-30 13:40:00 Goyo Haji [facility] HEMODIALYSIS INPATIENT 2019-08-30 11:55:00 [facility] BASIC METABOLIC PANEL (7) 2019-08-30 04:54:00 Jessica Castellano [facility] PHOSPHORUS 2019-08-30 04:54:00 Jay [facility] FERRITIN 2019-08-30 04:54:00 Jay [facility] IRON, TIBC, % SAT. (WITHOUT FERRITIN) 2019-08-30 04:54:00 Neeraj larry [facility] CBC W/PLT COUNT & AUTO DIFFERENTIAL 2019-08-30 04:54:00 Jessica Castellano [facility] POCT-GLUCOSE METER 2019-08-29 22:22:00 Goyo Haji [facility] POCT-GLUCOSE METER 2019-08-29 17:49:00 Goyo Haji [facility] POCT-GLUCOSE METER 2019-08-29 15:17:00 Goyo Haji [facility] TISSUE EXAM 2019-08-29 14:09:00 [facility]OT 2019-08-29 13:15:00 [facility] RRL CRITICAL LABS (ABG,NA,K,H&H,GLUCOSE) 2019-08-29 13:13:46 Geri Louie [facility] POTASSIUM-STAT LAB 2019-08-29 13:13:46 Geri Louie [facility] TYPE AND SCREEN, AUTOMATED 2019-08-29 12:36:00 Geri Louie [facility] BASIC METABOLIC PANEL (7) 2019-08-29 11:28:00 Kathy Hassan [facility] POCT-HEMOGLOBIN METER 2019-08-29 10:25:00 Goyo Haji Abimichelleol a [facility] POCT-GLUCOSE METER 2019-08-29 10:22:00 Goyo Haji Matthias C [facility] CT of abdomen and pelvis without contrast 2019-08-24 00:00:00 [facility] REPORT OF PROCEDURE - ENDOSCOPY SCAN 2019-08-18 17:20:46 Pro vider, Default Scanning [facility] RHYTHM STRIP - SCAN 2019-08-18 09:23:49 Provider, Default Scanni abisai [facility] POCT-GLUCOSE METER 2019-08-15 11:12:00 Ricky Jacobsen [facility] POCT-GLUCOSE METER 2019-08-15 08:04:00 Leeanna [facility] BASIC METABOLIC PANEL (7) 2019-08-15 03:42:00 Ricky Jacobsen I [facility] HEMOGLOBIN A1C 2019-08-15 03:42:00 Ricky Jacobsen [facility] HEMODIALYSIS INPATIENT 2019-08-15 00:08:48 Omar [facility] POCT-GLUCOSE METER 2019-08-14 23:34:00 Ricky Jacobsen [facility] HEPATITIS B SURFACE ANTIGEN 2019-08-14 20:43:00 Omar [facility] POCT-GLUCOSE METER 2019-08-14 18:05:00 Leeanna [facility] BLOOD GAS, VENOUS 2019-08-14 16:29:00 Yolanda Stubbs [facility] B-TYPE NATRIURETIC FACTOR (BNP) 2019-08-14 16:29:00 Lauren Stubbs [facility] BLOOD CULTURE 2019-08-14 16:20:00 Yolanda Stubbs [facility] XR CHEST 1 VIEW PORTABLE/BEDSIDE 2019-08-14 15:48:00 Lewis Palomo [facility] BLOOD CULTURE 2019-08-14 15:40:00 Yolanda Stubbs [facility] BASIC METABOLIC PANEL (7) 2019-08-14 15:40:00 Iesha Palomo [facility] MAGNESIUM 2019-08-14 15:40:00 Iesha Palomo [facility] LACTIC ACID, VENOUS 2019-08-14 15:40:00 Iesha Palomo [facility] C-REACTIVE PROTEIN 2019-08-14 15:40:00 Deonna Stubbsanne [facility] HEPATIC FUNCTION PANEL 2019-08-14 15:40:00 Deonna Stubbsanne [facility] PT/APTT 2019-08-14 15:40:00 Deonna Stubbsanne [facility] CREATINE KINASE (CK) 2019-08-14 15:40:00 Yolanda Stubbs Shaniqua [facility] TROPONIN I 2019-08-14 15:40:00 Yolanda Stubbs [facility] CBC W/PLT COUNT & AUTO DIFFERENTIAL 2019-08-14 15:40:00 Iesha Palomo [facility] ECG 12-LEAD 2019-08-14 15:20:44 Unknown, Hl7 Doctor [facility] ED ECG INTERPRETATION 2019-08-14 15:18:59 Yolanda Stubbs [facility] RHYTHM STRIP - SCAN 2019-07-30 11:04:16 Provider, Default Scandaniel [facility] RHYTHM STRIP - SCAN 2019-07-18 08:20:32 [facility] REPORT OF PROCEDURE - ENDOSCOPY SCAN 2019-07-18 08:20:27 Pro vider, Default Scanning [facility] CARDIAC CATH REPORT - SCAN 2019-07-18 08:20:26 Provider, Default Scanning [facility] VASCULAR DIAGRAM -SCAN 2019-07-18 08:20:24 Provider, Default Darrell [facility] POCT-GLUCOSE METER 2019-07-11 12:26:00 [facility] CBC W/PLT COUNT & AUTO DIFFERENTIAL 2019-07-11 10:25:00 Torr ealba [facility] POCT-GLUCOSE METER 2019-07-11 08:48:00 Thoams [facility] POCT-GLUCOSE METER 2019-07-10 21:16:00 [facility] POCT-GLUCOSE METER 2019-07-10 16:23:00 [facility] POCT-GLUCOSE METER 2019-07-10 13:10:00 [facility] 2019-07-10 11:55:00 Omar [facility] POCT-GLUCOSE METER 2019-07-10 10:09:00 [facility] BASIC METABOLIC PANEL (7) 2019-07-10 08:11:00 Grover [facility] MAGNESIUM 2019-07-10 08:11:00 [facility] PHOSPHORUS 2019-07-10 08:11:00 [facility] CBC W/PLT COUNT & AUTO DIFFERENTIAL 2019-07-10 08:11:00 Torr ealba [facility] POCT-GLUCOSE METER 2019-07-09 21:19:00 [facility] POCT-GLUCOSE METER 2019-07-09 16:53:00 [facility] POCT-GLUCOSE METER 2019-07-09 11:44:00 [facility] POCT-GLUCOSE METER 2019-07-09 08:18:00 [facility] VANCOMYCIN LEVEL, TROUGH 2019-07-09 04:15:00 [facility] CBC W/PLT COUNT & AUTO DIFFERENTIAL 2019-07-09 04:15:00 Torr ealba [facility] BASIC METABOLIC PANEL (7) 2019-07-09 04:14:00 Grover [facility] MAGNESIUM 2019-07-09 04:14:00 [facility] PHOSPHORUS 2019-07-09 04:14:00 [facility] PROCALCITONIN 2019-07-09 04:14:00 [facility] POCT-GLUCOSE METER 2019-07-08 21:03:00 [facility] POCT-GLUCOSE METER 2019-07-08 18:16:00 [facility] 1 VIEW PORTABLE/BEDSIDE 2019-07-08 17:55[facility] 2019-07-08 16:44:00 [facility] C. DIFFICILE GDH TOXIN 2019-07-08 13:14:00 Thoams [facility] POCT-GLUCOSE METER 2019-07-08 12:06:00 [facility] 2019-07-08 11:27:24 Nalini Nelson [facility] CBC W/PLT COUNT & AUTO DIFFERENTIAL 2019-07-08 10:34:00 Shyann Guzman [facility] POCT-GLUCOSE METER 2019-07-08 09:27:00 [facility] BASIC METABOLIC PANEL (7) 2019-07-08 06:22:00 Grover [facility] MAGNESIUM 2019-07-08 06:22:00 [facility] PHOSPHORUS 2019-07-08 06:22:00 [facility] CBC W/PLT COUNT & AUTO DIFFERENTIAL 2019-07-08 06:22:00 Torr ealba [facility] POCT-GLUCOSE METER 2019-07-08 01:19:00 [facility] POCT-GLUCOSE METER 2019-07-07 21:10:00 [facility] POCT-GLUCOSE METER 2019-07-07 16:47:00 [facility] POCT-GLUCOSE METER 2019-07-07 07:31:00 [facility] BASIC METABOLIC PANEL (7) 2019-07-07 05:11:00 Grover Jackson, [facility] CBC W/PLT COUNT & AUTO DIFFERENTIAL 2019-07-07 05:11:00 Torr ealba [facility] POCT-GLUCOSE METER 2019-07-06 21:52:00 Vicki Santizo A [facility] POCT-GLUCOSE METER 2019-07-06 17:24:00 Vicki Santizo [facility] POCT-GLUCOSE METER 2019-07-06 12:17:00 Vicki Santizo [facility] BASIC METABOLIC PANEL (7) 2019-07-06 11:04:00 Grover [facility] CBC W/PLT COUNT & AUTO DIFFERENTIAL 2019-07-06 11:04:00 Torr ealba [facility] POCT-GLUCOSE METER 2019-07-06 07:39:00 Vicki Santizo A [facility] POCT-GLUCOSE METER 2019-07-05 21:12:00 Vicki Santizo A [facility] HEMODIALYSIS INPATIENT 2019-07-05 18:01:49 Justin Thakur [facility] POCT-GLUCOSE METER 2019-07-05 13:34:00 Vicki Santizo A [facility] CBC W/PLT COUNT & AUTO DIFFERENTIAL 2019-07-05 09:04:00 Torr ealba [facility] POCT-GLUCOSE METER 2019-07-05 08:35:00 Vicki Santizo A [facility] BASIC METABOLIC PANEL (7) 2019-07-05 05:57:00 [facility] PO[facility] 2019-07-04 22:36:00 Vicki Santizo [facility] TRANSFUSION SERVICE REPORT - SCAN 2019-07-04 18:01:30 Provid er, Default Scanning [facility] POCT-GLUCOSE METER 2019-07-04 17:11:00 [facility] VASCULAR DIAGRAM -SCAN 2019-07-04 14:40:04 Provider, Default Sca nning [facility] POCT-GLUCOSE METER 2019-07-04 12:20:00 [facility] POCT-GLUCOSE METER 2019-07-04 08:01:00 [facility] BASIC METABOLIC PANEL (7) 2019-07-04 05:36:00 [facility] W/[facility]T COUNT & AUTO DIFFERENTIAL 2019-07-04 05:36:00 [facility] LEUKO-REDUCED RBC 2019-07-03 23:54:00 Tony Guzman I [facility] POCT-GLUCOSE METER 2019-07-03 21:12:00 [facility] TRANSFUSION SERVICE REPORT - SCAN 2019-07-03 18:01:23 Provid er, Default Scanning [facility] POCT-GLUCOSE METER 2019-07-03 16:52:00 [facility] CT BRAIN WITHOUT IV CONTRAST 2019-07-03 12:45:00 [facility] HEM[facility]PATIENT 2019-07-03 08:48:00 Justin Thakur CH I [facility] POCT-GLUCOSE METER 2019-07-03 05:16:00 [facility] BASIC METABOLIC PANEL (7) 2019-07-03 05:12:00 [facility] LIP[facility] PANEL 2019-07-03 05:12:00 [facility] CBC W/PLT COUNT & AUTO DIFFERENTIAL 2019-07-03 05:12:00 Torr ealba [facility] HEMOGLOBIN AND HEMATOCRIT 2019-07-02 18:47:00 Tony Guzman CH, I [facility] TRANSFUSION SERVICE REPORT - SCAN 2019-07-02 18:01:18 Provid er, Default Scanning [facility] POCT-GLUCOSE METER 2019-07-02 16:21:00 [facility] TRANSFUSE LEUKO-REDUCED RED BLOOD CELLS 2019-07-02 13:47:10 [facility] EEG AWAKE AND DROWSY 2019-07-02 10:52:00 [facility] POCT-GLUCOSE METER 2019-07-02 10:01:00 [facility] POCT-GLUCOSE METER 2019-07-02 05:53:00 [facility] METABOLIC PANEL (7) 2019-07-02 04:09:00 Grover Jackson[facility] PTH, INTACT 2019-07-02 04:09:00 Courtney Burton S. [facility] IRON, TIBC, % SAT. (WITHOUT FERRITIN) 2019-07-02 04:09:00 Courtney Gracia SVern [facility] FERRITIN 2019-07-02 04:09:00 Courtney Burton S. [facility] CBC W/PLT COUNT & AUTO DIFFERENTIAL 2019-07-02 04:09:00 Torr ealba [facility] POCT-GLUCOSE METER 2019-07-01 23:16:00 [facility] POCT-GLUCOSE METER 2019-07-01 18:08:00 [facility] TRANSFUSION SERVICE REPORT - SCAN 2019-07-01 18:03:05 Provid er, Default Scanning [facility] TYPE AND SCREEN, AUTOMATED 2019-07-01 17:06:00 Tony Guzman [facility] HEMOGLOBIN AND HEMATOCRIT 2019-07-01 16:43:00 Tony Guzman CH [facility] POCT-GLUCOSE METER 2019-07-01 12:52:00 [facility] POCT-GLUCOSE METER 2019-07-01 08:41:00 [facility] BASIC METABOLIC PANEL (7) 2019-07-01 03:26:00 Grover Jackson, [facility] CBC W/PLT COUNT & AUTO DIFFERENTIAL 2019-07-01 03:26:00 Torr ealba [facility] HEMOGLOBIN AND HEMATOCRIT 2019-07-01 00:23:00 [facility] PREPARE LEUKO-REDUCED RBC 2019-06-30 23:54:00 Steven Kapoor [facility] PERIPHERAL VASCULAR REPORT - SCAN 2019-06-30 21:23:20 Provid er, Default Scanning [facility] HEMOGLOBIN AND HEMATOCRIT 2019-06-30 19:01:00 [facility] POCT-GLUCOSE METER 2019-06-30 18:33:00 [facility] TRANSFUSION SERVICE REPORT - SCAN 2019-06-30 18:01:37 Provid er, Default Scanning [facility] HEMODIALYSIS INPATIENT 2019-06-30 13:57:29 Courtney Burton [facility] POCT-GLUCOSE METER 2019-06-30 12:11:00 [facility] HEMOGLOBIN AND HEMATOCRIT 2019-06-30 11:12:00 [facility] ECHO W CONTRAST & DOPPLER 2019-06-30 11:06:13 Grover Jackson, [facility] POCT-GLUCOSE METER 2019-06-30 08:39:00 [facility] MAGNESIUM 2019-06-30 03:46:00 Kem Diaz [facility] PHOSPHORUS 2019-06-30 03:46:00 Kem Diaz [facility] BASIC METABOLIC PANEL (7) 2019-06-30 03:46:00 [facility] CBC W/PLT COUNT & AUTO DIFFERENTIAL 2019-06-30 03:46:00 [facility] HEMOGLOBIN AND HEMATOCRIT 2019-06-29 23:54:00 [facility] TRANSFUSE LEUKO-REDUCED RED BLOOD CELLS 2019-06-29 22:11:12 Steven Kapoor [facility] POCT-GLUCOSE METER 2019-06-29 18:37:00 Kem Diaz [facility] HEMOGLOBIN AND HEMATOCRIT 2019-06-29 18:32:00 [facility] TRANSFUSION SERVICE REPORT - SCAN 2019-06-29 18:01:09 Provid er, Default Scanning [facility] CT BRAIN WITHOUT IV CONTRAST 2019-06-29 15:30:00 Lei Narvaez [facility] PSEUDOANEURYSM GROIN DOPPLER LEFT 2019-06-29 11:53:00 Benita Lopez [facility] POCT-GLUCOSE METER 2019-06-29 11:31:[address] CharbelFely [facility] HEMOGLOBIN AND HEMATOCRIT 2019-06-29 11:10:00 [facility] XR ABDOMEN / KUB 1 VIEW 2019-06-29 09:24:00 Trey Saleem [facility] POCT-GLUCOSE METER 2019-06-29 07:51:00 CharbelFely [facility] MAGNESIUM 2019-06-29 03:37:00 [facility] 2019-06-29 03:37:00 Kem Diaz [facility] BASIC METABOLIC PANEL (7) 2019-06-29 03:37:00 [facility] CBC W/PLT COUNT & AUTO DIFFERENTIAL 2019-06-29 03:36:00 [facility] POCT-GLUCOSE METER 2019-06-28 23:49:00 [facility] COMPREHENSIVE METABOLIC PANEL 2019-06-28 23:28:00 Grover Nealos ta, [facility] HEMOGLOBIN A1C 2019-06-28 23:28:00 [facility] PROT[facility]OMBIN TIME/INR 2019-06-28 23:28:00 [facility]ver [facility], [facility] APTT 2019-06-28 23:28:00 [facility] HEMOGLOBIN AND HEMATOCRIT 2019-06-28 23:28:00 Grover Jackson, [facility] FIBRINOGEN 2019-06-28 23:28:00 [facility] Jackson, [facility] PREPARE LEUKO-REDUCED RBC 2019-06-28 21:43:00 [facility] Jackson, [facility] HEMOGLOBIN AND HEMATOCRIT 2019-06-28 20:40:00 [facility] Jackson, [facility] TYPE AND SCREEN, AUTOMATED 2019-06-28 20:40:00 Grover Jackson, [facility] CBC W/PLT COUNT & AUTO DIFFERENTIAL 2019-06-28 20:40:00 Torr ealba Jackson, [facility] CTA BRAIN 2019-06-28 16:44:00 [facility] CAROTID 2019-06-28 16:44:00 [facility]/STROKE TEST DESIGN 2019-06-28 16:27:00 Grover Jackson , [facility] POCT-GLUCOSE METER 2019-06-28 15:35:00 Charbel, [facility] POCT-GLUCOSE METER 2019-06-28 13:42:00 Charbel, [facility] CBC W/PLT COUNT & AUTO DIFFERENTIAL 2019-06-28 09:54:00 Cromohan [facility] PLATELET AGGREGATION: FUNCTION SCREEN 2019-06-28 09:50:00 Jonathan Moya [facility] HEMODIALYSIS INPATIENT 2019-06-28 09:16:10 Omar [facility] HEPATITIS B SURFACE ANTIGEN 2019-06-28 09:11:00 [facility] POCT-GLUCOSE METER 2019-06-28 07:29:00 Charbel, [facility] BASIC METABOLIC PANEL (7) 2019-06-28 04:44:00 Crooms, [facility] MAGNESIUM 2019-06-28 04:44:00 Crooms, [facility] PHOSPHORUS 2019-06-28 04:44:00 Crooms, [facility] CBC W/PLT COUNT & AUTO DIFFERENTIAL 2019-06-28 04:44:00 Naaoms [facility] PLATELET AGGREGATION: FUNCTION SCREEN 2019-06-28 04:43:00 Jonathan Moya [facility] POCT-GLUCOSE METER 2019-06-27 22:48:00 Charbel, [facility] POCT-ACT 2019-06-27 21:04:00 Charbel, [facility] POCT-ACT 2019-06-27 19:39:00 Charbel, [facility] POCT-GLUCOSE METER 2019-06-27 17:41:00 Charbel, [facility] POCT-ACT 2019-06-27 15:48:00 Charbel, [facility] POCT-ACT 2019-06-27 15:10:00 Charbel, [facility] POCT-ACT 2019-06-27 14:38:00 Charbel, [facility] PERIPHERAL ANGIOS & IVUS 2019-06-27 13:26:00 Jonathan Moya [facility] POTASSIUM-STAT LAB 2019-06-27 12:22:00 Jonathan Moya [facility] Plan of Care Planned Activity Planned Date Details Comments Source Future Scheduled Test 2020-10-15 00:00:00 Hemoglobin A1c sánchez surement (procedure) [code = 90395507] [facility] Future Scheduled Test 2020-03-16 00:00:00 INFLUENZA VACCINE (#1) [code = INFLUENZA VACCINE (#1)] [facility] Future Scheduled Test 2008-09-14 00:00:00 MEDICARE ANNUAL WE LLNESS (YEAR 2 or FIRST YEAR if no IPPE) [code = MEDICARE ANNUAL WELLNESS (YEAR 2 or FIRST YEAR if no IPPE)] [facility] Future Scheduled Test 1957 00:00:00 DIABETIC EYE EXAM [code = DIABETIC EYE EXAM] [facility] Future Scheduled Test 1957 00:00:00 Diabetic foot exam ination (regime/therapy) [code = 337413626] [facility] Future Scheduled Test 1957 00:00:00 Urine screening fo r protein (procedure) [code = 019970503] [facility] Future Scheduled Test 1947 00:00:00 Screening for colby gnant neoplasm of breast (procedure) [code = 730936169] [facility] Future Scheduled Test 1947 00:00:00 Screening for colby gnant neoplasm of colon (procedure) [code = 046099774] [facility] dical [place] Instructions Hyperkalemia [facility] Encounters Start Date/Time End Date/Time Encounter Type Admission Type Attendi [facility] Care Department Encounter ID Source 2019-11-14 19:53:00 2019-11-15 00:26:00 Departed Emergency Room 1 KODY ALEMAN [facility] [id number] [facility] 2019-10-14 11:57:00 2019-10-14 16:30:00 Departed Emergency Room [facility] [id number] [facility] 2019-09-04 10:04:00 2019-09-04 15:45:00 Departed Emergency Room 1 KODY ALEMAN [facility] [id number] [facility] 2019-08-22 23:27:00 2019-08-26 13:16:00 Discharged Inpatient (obs) 1 RON [facility] [id number] [facility] 2019-06-09 03:40:00 2019-06-09 05:50:00 Departed Emergency Room 1 TREY RODRIGES [facility] [id number] [facility] 2019-05-31 17:37:00 2019-06-04 18:07:00 Discharged Inpatient 1 RON [facility] [id number] [facility] 2019-05-26 03:33:00 2019-05-26 05:12:00 Departed Emergency Room 1 XIOMARA TOLENTINO [facility] [id number] [facility] 2019-05-18 10:55:00 2019-05-19 20:52:00 Discharged Inpatient 1 CHERELLE VELASQUEZ [facility] [id number] [facility] 2019-05-12 19:39:00 2019-05-13 00:49:00 Departed Emergency Room 1 TREY RODRIGES [facility] [id number] [facility] 2019-04-11 10:54:00 2019-04-11 15:17:00 Departed Emergency Room [facility] [id number] [facility] 2019-01-19 04:34:00 2019-01-19 08:20:00 Departed Emergency Room 1 TREY RODRIGES [facility] [id number] [facility] 2018-12-23 22:08:00 2018-12-30 13:27:00 Discharged Inpatient 1 CHERELLE VELASQUEZ [facility] [id number] [facility] [facility] 2018-11-06 18:31:00 2018-11-13 18:38:00 Discharged Inpatient 1 CHERELLE VELASQUEZ [facility] [id number] [facility] 2018-08-20 21:15:00 2018-08-21 01:55:00 Departed Emergency Room [facility] [id number] [facility] 2018-05-20 12:31:00 2018-05-20 18:20:00 Departed Emergency Room [facility] [id number] [facility] 2018-02-22 06:23:00 2018-02-24 14:40:00 Discharged Inpatient (obs) 1 RON JASMEET [facility] [id number] [facility] Results Test Description Test Time Test Comments Results Result Comments Source CHEST SINGLE (PORTABLE) 2020-04-24 13:35:00 [place] [address] Patient Name: ANGELA JEFFERS MR #: [id number] : 1945 Age/Sex: 75/F Req #: [id number] Adm Physician: Ordered by: WILLIE SCHWARTZ MD Report #: [id number] Location: ER Room/Bed: Procedure: [id number] DX/CHEST SINGLE (PORTABLE) Exam Date: 04/24/20 Exam Time: 1205 REPORT STATUS: Signed EXAMINATION: CHEST SINGLE (PORTABLE) INDICATION: Status post fall with left hip pain. COMPARISON: 04/05/2020. FINDINGS: The patient is severely rotated and the examination is nondiagnostic. IMPRESSION: Patient is severely rotated and examination is nondiagnostic. Recommend repeat chest x- ray. Signed by: Alejandra Molina MD on 04/24/2020 1:37 PM Dictated By: ALEJANDRA MOLINA MD 36 Transcribed By: ARIEL on 04/24/201336 COPY TO: WILLIE SCHWARTZ MD HIP LEFT 2-3 VW (+/- PELVIS) 2020-04-24 13:31:00 [place] [address] Patient Name: ANGELA JEFFERS MR #: [id number] : 1945 Age/Sex: 75/F Req #: [id number] Adm Physician: Ordered by: WILLIE SCHWARTZ MD Report #: [id number] Location: ER Room/Bed: Procedure: [id number] DX/HIP LEFT 2-3 VW (+/- PELVIS) Exam Date: Exam Time: REPORT STATUS: Signed X-ray 2 views of the femur. HISTORY: Pain. COMPARISON: None available. FINDINGS: See impression. IMPRESSION: HIP: Evaluation of the osseous and soft tissue structures is severely limited by patient's body habitus. Despite this limitations, no d isplaced fracture or dislocation identified. 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 No radiographic evidence of hardware complication. Atherosclerotic vascular calcification. Signed by: Alejandra Molina MD on 04/24/2020 1:35 PM Dictated By: ALEJANDRA MOLINA MD Transcribed By: ARIEL on 04/24/201334 COPY TO: WILLIE SCHWARTZ MD FEMUR 2 VIEWS MINIMUM LEFT 2020-04-24 13:31:00 [place] [address] Patient Name: ANGELA JEFFERS MR #: [id number] : 1945 Age/Sex: 75/F Req #: [id number] Adm Physician: Ordered by: WILLIE SCHWARTZ MD Report #: [id number] Location: ER Room/Bed: Procedure: [id number] DX/FEMUR 2 VIEWS MINIMUM LEFT Exam Date: Exam Time: REPORT STATUS: Signed X-ray 2 views of the femur. HISTORY: Pain. COMPARISON: None available. FINDINGS: See impression. IMPRESSION: HIP: Evaluation of the osseous and soft tissue structures is severely limited by patient's body habitus. Despite this limitations, no dis placed fracture or dislocation identified. 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 No radiographic evidence of hardware complication. Atherosclerotic vascular calcification. Signed by: Alejandra Molina MD on 04/24/2020 1:35 PM Dictated By: ALEJANDRA MOLINA MD 34 Transcribed By: ARIEL on 04/24/201334 COPY TO: WILLIE SCHWARTZ MD POC-Glucose meter 2020-04-16 12:11:00 Test Item POC-Glucose Meter (test code = 1538) 103 mg/dL 70-110 : TESTED AT [facility] [address] [place] [address], [address]: Cooker Casing/Catheter Finisher And Inspector ID = [id number] for Hank Sarmiento Lab Interpretation (test code = 18672-2) [facility] [id number] 12:11:00* Test Item Value Reference Range Interpretation Comments POC-GLUCOSE METER (BEAKER) (test code = 1538) 103 mg/dL 70-110 : TESTED AT [address], [address]: Cooker Casing/Catheter Finisher And Inspector ID = [id number] for Hank Sarmiento T4, [id number] 08:05:00* Test Item Value Reference Range Interpretation Comments Free T4 (test code = 3024-7) 0.71 ng/dL 0.7-1.48 GABBY (test code = GABBY) Cooker Casing ID - BIMAL Brower Lab Interpretation (test code = 43535-1) [facility], [id number] 08:05:00* Test Item Value Reference Range Interpretation Comments FREE T4 (BEAKER) (test code = 655) 0.71 ng/dL 0.70-1.48 Cooker Casing ID Alfredo WALLIS FHemoglobin [id number] 07:54:00* Test Item Value Reference Range Interpretation Comments Hemoglobin A1C (test code = 4548-4) 5.8 % 4.3-6.1 Lab Interpretation (test code = 21144-5) Normal [facility]HE[facility] [id number] 07:54:00* Test Item Value Reference Range Interpretation Comments HEMOGLOBIN A1C (BEAKER) (test code = 368) 5.8 % 4.3-6.1 POCT-GLUCOSE [id number] 07:51:00* Test Item Value Reference Range Interpretation Comments POC-GLUCOSE METER (BEAKER) (test code = 1538) 118 mg/dL 70-110 H : TESTED AT [address], [address]: Cooker Casing/Catheter Finisher And Inspector ID = [id number] for Hank Sarmiento Iron, TIBC, % sat. (without ferritin)2020-04-16 07:35:00* Test Item Value Reference Range Interpretation Comments Iron (test code = 2498-4) 29.0 ug/dL 40-160 L TIBC (test code = 2500-7) 139 ug/dL 250-450 L Iron % Saturation (test code = 2502-3) 21 % 20-55 GABBY (test code = GABBY) Cooker Casing ID - BIMAL Brower Lab Interpretation (test code = 49901-8) [facility]normal [facility], TIBC, % SAT. (WITHOUT FERRITIN)2020-04-16 07:35:00* Test Item Value Reference Range Interpretation Comments IRON (BEAKER) (test code = 547) 29.0 ug/dL 40.0-160.0 L TOTAL IRON BINDING CAPACITY (BEAKER) (test code = 769) 139 ug/dL 250-450 L IRON % SATURATION (2) (BEAKER) (test code = 2590) 21 % 20-5 5 Cooker Casing SHERMAN WALLIS asic metabolic [id number] 07:21:00* Test Item Value Reference Range Interpretation Comments Sodium (test code = 2951-2) 136 meq/L 136-145 Potassium (test code = 2823-3) 5.2 meq/L 3.5-5.1 H Chloride (test code = 2075-0) 96 meq/L 98-107 L CO2 (test code = 8-9) 26 meq/L 22-29 BUN (test code = 3094-0) 53 mg/dL 7-21 H Creatinine (test code = 2160-0) 7.47 mg/dL 0.57-1.25 H Glucose (test code = 2345-7) 111 mg/dL 70-105 H Calcium (test code = 52681-3) 7.4 mg/dL 8.4-10.2 L EGFR (test code = 98145-6) 6 mL/min/1.73 sq m ESTIMATED GFR IS NOT ACCURATE CREATININE CLEARANCE IN PREDICTING GLOMERULAR FILTRATION RATE. ESTIMATED GFR IS NOT APPLICABLE FOR DIALYSIS PATIENTS. GABBY (test code = GABBY) Cooker Casing ID Alfredo Brower Lab Interpretation (test code = 18968-0) [facility]normal [facility]BAS[facility]OLIC [id number] 07:21:00* Test Item Value Reference Range Interpretation [...] GFR IS NOT APPLICABLE FOR DIALYSIS PATIENTS. Cooker Casing ID Alfredo Monid [id number] 07:20:00* Test Item Value Reference Range Interpretation Comments Triglycerides (test code = 2571-8) 130 mg/dL Cholesterol (test code = 2093-3) 179 mg/dL HDL (test code = 2085-9) 33 mg/dL LDL Calculated (test code = 13280-8) 120 mg/dL GABBY (test code = GABBY) Triglyceride Reference Range : Low Risk <150 Borderline 150-199 High Risk 200-499 Very High Risk >=500 Cholesterol Reference Range: Low Risk <200 Borderline 200-239 High Risk >240 HDL Cholesterol Reference Range: Low Risk >=60 High Risk <40 LDL Cholesterol Reference Range: Optimal <100 Near Optimal 100-129 Borderline 130-159 High 160-189 Very High >=190 Cooker Casing ID - BIMAL Brower [facility] HospitalHepatic function [id number] 07:20:00* Test Item Value Reference Range Interpretation Comments Protein, Total (test code = 2885-2) 6.9 6.0- 8.3 gm/dL Albumin (test code = 13807-9) 3.0 g/dL 3.5-5 L Total Bilirubin (test code = 1974-) 0.3 mg/dL 0.2-1.2 Bilirubin, Direct (test code = 1967-7) 0.2 mg/dL 0.1-0.5 Alkaline Phosphatase (test code = 6768-6) 61 U/L 40-150 AST (test code = 1920-8) 9 U/L 5-34 ALT (test code = 1742-6) <6 6-55 L GABBY (test code = GABBY) Cooker Casing ID Alfredo Brower Lab Interpretation (test code = 59027-5) Abnormal [facility] HospitalMagnesium2020-10-02 07:20:00* Test Item Value Reference Range Interpretation Comments Magnesium (test code = 51476-5) 2.1 mg/dL 1.6-2.6 GABBY (test code = GABBY) Cooker Casing ID Alfredo Brower Lab Interpretation (test code = 89877-3) Normal [facility] HospitalPhosphorus2020-10-02 07:20:00* Test Item Value Reference Range Interpretation Comments Phosphorus (test code = 2777-1) 7.1 mg/dL 2.3-4.7 H GABBY (test code = GABBY) Cooker Casing ID Alfredo Brower Lab Interpretation (test code = 79208-9) Abnormal [facility]PHOSPHORUS2020-10-02 07:20:00* Test Item Value Reference Range Interpretation Comments PHOSPHORUS (BEAKER) (test code = 604) 7.1 mg/dL 2.3-4.7 H Cooker Casing ID Alfredo WALLIS [id number] 07:20:00* Test Item Value Reference Range Interpretation Comments MAGNESIUM (BEAKER) (test code = 627) 2.1 mg/dL 1.6-2.6 Cooker Casing ID Alfredo WALLIS FLIPID [id number] 07:20:00* Test Item Value Reference Range Interpretation [...] Borderline 130-159 High 160-189 Very High >=190 Cooker Casing ID Alfredo WALLIS FHEPATIC FUNCTION [id number] 07:20:00* Test Item Value Reference Range Interpretation [...] code = 347) < U/L 6-55 L Cooker Casing ID Alfredo BIMAL UYanhjvge9244-35-03 07:16:00* Test Item Value Reference Range Interpretation Comments Ferritin (test code = 2276-4) 775.63 ng/mL 5-275 H GABBY (test code = GABBY) Cooker Casing ID Alfredo BIMAL F Lab Interpretation (test code = 85691-5) Abnormal [facility] HospitalTSH/Free T4 If Dgsxcgzgo7374-72-50 07:16:00* Test Item Value Reference Range Interpretation Comments TSH (test code = 49369-2) 26.176 0.350- 4.940 uIU/mL H GABBY (test code = GABBY) Cooker Casing ID Alfredo WALLIS F Lab Interpretation (test code = 31555-7) Abnormal [facility] HospitalVitamin B12 and [id number] 07:16:00* Test Item Value Reference Range Interpretation Comments Vitamin B12 (test code = 2132-9) 527 pg/mL 213-816 Folate (test code = 2284-8) 7.60 ng/mL >=7.00 GABBY (test code = GABBY) Cooker Casing ID Alfredo WALLIS F Lab Interpretation (test code = 55926-8) Normal [facility] HospitalFERRITIN2020-10-02 07:16:00* Test Item Value Reference Range Interpretation Comments FERRITIN (BEAKER) (test code = 361) 775.63 ng/mL 5.00-275.00 H Cooker Casing ID Alfredo WALLIS FVITAMIN B12 AND [id number] 07:16:00* Test Item Value Reference Range Interpretation Comments VITAMIN B12 (BEAKER) (test code = 774) 527 pg/mL 213-816 FOLATE (BEAKER) (test code = 362) 7.60 ng/mL >=7.00 Cooker Casing ID Alfredo WALLIS FTSH/FREE T4 IF [id number] 07:16:00* Test Item Value Reference Range Interpretation Comments THYROID STIMULATING HORMONE (BEAKER) (test code = 772) 26.17 6 uIU/mL 0.350-4.940 H Cooker Casing ID Alfredo WALLIS FCBC with platelet count + automated [id number] 06:00:00* Test Item Value Reference Range Interpretation [...] 450 K/CU MM MPV (test code = 90782-0) 12.5 fL 9.4-12.3 H nRBC (test code [...] % 0-1 Lab Interpretation (test code = 46295-3) Abnormal [facility] W/PLT COUNT & AUTO [id number] 06:00:00* Test Item Value Reference Range Interpretation [...] code = 2801) 0 % 0-1 POCT-GLUCOSE [id number] 21:06:00* Test Item Value Reference Range Interpretation Comments POC-GLUCOSE METER (BEAKER) (test code = 1538) 177 mg/dL 70-110 H : TESTED AT [address], [address]: Cooker Casing/Catheter Finisher And Inspector ID = [id number] for SHANTEL REZA III POCT-GLUCOSE [id number] 16:47:00* Test Item Value Reference Range Interpretation Comments POC-GLUCOSE METER (BEAKER) (test code = 1538) 199 mg/dL 70-110 H : TESTED AT [address], [address]: Cooker Casing/Catheter Finisher And Inspector ID = [id number] for TITI SHERIDAN POCT-GLUCOSE [id number] 11:25:00* Test Item Value Reference Range Interpretation Comments POC-GLUCOSE METER (BEAKER) (test code = 1538) 176 mg/dL 70-110 H : TESTED AT [address], [address]: Cooker Casing/Catheter Finisher And Inspector ID = [id number] for TITI SHERIDAN ECG 12 [id number] 09:13:50Interface, External Ris In - 04/15/2020 9:13 AM CDTVentricular Rate 69 BPMAtrial Rate 69 BPMP-R Interval 222 msQRS Duration 88 msQ-T Interval 436 msQTC Calculation(Bazett) 467 msP Peak 56 degreesR Peak -23 degreesT Peak 70 degreesSinus rhythm with 1st degree A-V blockWithin normal limitsConfirmed by MD Winston Roberto ([id number]) on 04/15/2020 9:13:47 [facility] [id number] 07:19:00* Test Item Value Reference Range Interpretation [...] GFR IS NOT APPLICABLE FOR DIALYSIS PATIENTS. Cooker Casing ID - PIETROTrelbertdanieln M1248-43-23 07:11:00* Test Item Value Reference Range Interpretation Comments Troponin I (test code = 97257-2) 0.15 ng/mL 0-0.03 H GABBY (test code [...] failure, acidosis, acute neurological disease, and persistent tachyarrhythmia.Cooker Casing ID - EDASI Lab Interpretation (test code = 38693-7) Abnormal [facility] HospitalTROPON [id number] 07:11:00* Test Item Value Reference Range Interpretation [...] acidosis, acute neurological disease, and per sistent tachyarrhythmia.Cooker Casing ID - [id number] 07:11:00* Test Item Value Reference Range Interpretation Comments PHOSPHORUS (BEAKER) (test code = 604) 6.1 mg/dL 2.3-4.7 H Cooker Casing ID - [id number] 07:11:00* Test Item Value Reference Range Interpretation Comments MAGNESIUM (BEAKER) (test code = 627) 2.0 mg/dL 1.6-2.6 Cooker Casing ID - EDASICBC W/PLT COUNT & AUTO [id number] 06:40:00* Test Item Value Reference Range Interpretation [...] code = 2801) 0 % 0-1 POCT-GLUCOSE [id number] 06:22:00* Test Item Value Reference Range Interpretation Comments POC-GLUCOSE METER (BEAKER) (test code = 1538) 123 mg/dL 70-110 H : TESTED AT [facility] [address] [facility], [address]: Cooker Casing/Catheter Finisher And Inspector ID = [id number] for EH FRANCIS SARS-CoV2/RT-PCR (Asymptomatic ONLY)2020-04-15 01:43:00* Test Item Value Reference Range Interpretation Comments SARS-COV2/RT-PCR (test code = 20769-5) Negative N ot Detected, Negative, See external report for linked test SARS-COV-2 PERFORMING LAB (test code = 03826-7) [facility] PIERRE (test code = GABBY) Negative result for [...] of the Act. Fact Sheet for Healthcare Providers:https://www.[employer]/sites/default/files/product/documents/Fact_Shee q_FI_Nlciegnbi_Gswz_VBDR-AoR-1.pdf Fact Sheet for Healthcare Patients:https://www.[employer]/sites/default/files/pro duct/documents/Prup_Cipsd_Whgmjuvi_Grzo_UVPM-IcY-8.pdf Performing Laboratory:[facility], [place] [address] [place], [place] [address]ARS-COV2/RT-PCR ([facility])2020-04-15 01:43:00* Test Item Value Reference Range Interpretation Comments SARS-COV2/RT-PCR (test code = 5568321) Negative N ot Detected, Negative, See external report for linked test SARS-COV-2 PERFORMING LAB (test code = 8085435) [facility] ROR[place] Negative result for this test determines [...] from individuals suspected of COVID-[address] [facility] provider.This test has not been Food and Drug Administration (FDA) clear ed or approved. This is a modified version of an approved Emergency Use Authori zation (EUA) and is in the process of review by the FDA. Once authorized by [facility] FDA, the issued EUA will be effective until the declaration that circumstances exist justifying the authorization of the emergency use of in vitro diagnostic tests for detection and/or diagnosis of COVID-19 is terminated under Section 564 (b)(2) of the Act or the EUA is revoked under Section 564(g) of the Act.Fact She et for Healthcare Providers:https://www.[employer]/sites/default/files/product/d ocuments/Pnid_Gekem_JJ_Lbqtskqfa_Olbv_IIVH-XmP-7.pdfFact Sheet for Healthcare Pa sallie:https://www.[employer]/sites/default/files/product/documents/Fact_Sheet_P zevfmxx_Sukm_CDCO-TfN-3.pdfPerforming Laboratory:[facility] r6[facility] [address], [place] [address]QJIXXNNQ [id number] 01:08:00* Test Item Value Reference Range Interpretation Comments TROPONIN I (Nuenz) (test code = 397) 0.14 ng/mL 0.00-0.03 [...] acidosis, acute neurological disease, and per sistent tachyarrhythmia.Cooker Casing ID - BSPOCT-GLUCOSE [id number] 00:41:00* Test Item Value Reference Range Interpretation Comments POC-GLUCOSE METER (Nuenz) (test code = 1538) 139 mg/dL 70-110 H : TESTED AT [address], [address]: Cooker Casing/Catheter Finisher And Inspector ID = [id number] for PRUDENCE ZAFAR Hepatitis B surface [id number] 21:08:00* Test Item Value Reference Range Interpretation Comments HBsAg Screen (test code = 5195-3) Nonreactive Nonreactive GABBY (test code = GABBY) Specimen is considered negative for HBsAg. Lab Interpretation (test code = 81452-7) Normal [facility] SUR[facility] [id number] 21:08:00* Test Item Value Reference Range Interpretation Comments HEPATITIS B SURFACE ANTIGEN (2) (BEAKER) (test code = 2585) Nonreactive Nonreactive Specimen is considered negative for HBsAg.POCT-GLUCOSE [id number] 19:22:00 * Test Item Value Reference Range Interpretation Comments POC-GLUCOSE METER (BEAKER) (test code = 1538) 153 mg/dL 70-110 H : Notified RN/MD: TESTED AT [address], [address]: Cooker Casing/Catheter Finisher And Inspector ID = [id number] for SHILOH HOWELL POCT-GLUCOSE [id number] 18:37:00* Test Item Value Reference Range Interpretation Comments POC-GLUCOSE METER (BEAKER) (test code = 1538) 99 mg/dL 70-110 : TESTED AT [address], [address]: Cooker Casing/Catheter Finisher And Inspector ID = [id number] for Fabiano (V)Dorothea TROPONIN [id number] 17:27:00* Test Item Value Reference Range Interpretation [...] acidosis, acute neurological disease, and per sistent tachyarrhythmia.Cooker Casing ID - YYUsohwzdyb8324-53-40 17:16:00* Test Item Value Reference Range Interpretation Comments Potassium (test code = 2823-3) 6.5 meq/L 3.5-5.1 HH Specimen slightly hemolyzed GABBY (test code = GABBY) Cooker Casing ID - BS Lab Interpretation (test code = 27822-2) [facility]normal [facility]OT[facility]UM2020-09-30 17:16:00* Test Item Value Reference Range Interpretation Comments POTASSIUM (BEAKER) (test code = 379) 6.5 meq/L 3.5-5.1 HH Specimen slightly hemolyzed Cooker Casing ID - BSRAD, SPINE, THORACIC, 2 [id number] 16:49:00Reason for exam:->back painReason for exam:->FALLShould this [...] Hernandez Verified Date/Time: 04/14/2020 16:49:24 Reading Location: [facility] Radiology Reading Room spine thoracic 2 [id number] 16:49:00Interface, External Ris In - 04/14/2020 4:51 [...] Verified Date/Time: 04/14/2020 16:49:24 Read ing Location: [facility] Radiology Reading Room [facility], 1 VIEW, NON [id number] 16:45:00Reason for exam:->KNEE PAINReason for exam:-> LEG [...] Hernandez Verified Date/Time: 04/14/2020 16:45:57 Reading Location: [facility] Radiology Reading Room chest 1 view portable / [id number] 16:45:00 Interface, External Ris In - 04/14/2020 4:48 PM CDTFINAL REPORT PATIENT ID: [id number] History: Status post fall Comparison: Chest radiograph [...] Hernandez Verified Date/Time: 04/14/2020 16:45:57 Reading Location: [facility] Radiology Reading Room Electronically signed by: ISADORA HERNANDEZ MD on 03/18 04:45 PM [facility] PELVIS, 1 OR 2 [id number] 16:42:00Reason for exam:->fall, injuryShould this be performed [...] Hernandez Verified Date/Time: 04/14/2020 16:42:53 Reading Location: [facility] Radiology Reading Room pelvis 1 or 2 [id number] 16:42:00Interface, External Ris In - 04/14/2020 4:45 [...] Hernandez Verified Date/Time: 04/14/2020 16:42:53 Reading Location: [facility] Radiology Reading Room Electronically sig davonte by: ISADORA HERNANDEZ MD on 04/14/2020 04:42 PM [facility] RAD, FEMUR, MIN. 2 VIEWS, [id number] 16:41:00Reason for exam:->fall injuryReason for exam:->LEG PAINReason [...] Hernandez Verified Date/Time: 04/14/2020 16:41:36 Reading Location: [facility] Radiology Reading Room femur left AP and [id number] 16:41:00Interface, External Ris In - 04/14/2020 4:43 [...] of the distal femoral diametaphysis. Signed: Isadora Rollins Verified Date/Time: 04/14/2020 16:41:36 Reading Location: [facility] Radiology Reading Room [facility], KNEE, COMPLETE (4 VIEWS), [id number] 16:39:00Reason for exam:->KNEE PAINReason for exam:->LEG PAINReason [...] of the intramedullary carley. Signed: Isadora Hernandez Verified Date/Time: 04/14/2020 16:39:33 Reading Location: [facility] Radiology Reading Room knee complete 4 views [id number] 16:39:00Interface, External Ris In - 04/14/2020 4:41 [...] of the int ramedullary carley. Signed: Isadora Hernandez Verified Date/Time: 04/14/2020 1 6:39:33 Reading Location: [facility] Radiology Reading Room Electronically matt d by: ISADORA HERNANDEZ MD on 04/14/2020 04:39 PM [facility] ANKLE, MIN 3 VIEWS, [id number] 16:35:00Reason for exam:->KNEE PAINReason for exam:->LEG PAINReason [...] in the left ankle. Signed: Isadora Hernandez Verified Date/Time: 04/14/2020 16:35:15 Reading Location: [facility] Radiology Reading Room ankle 3 views [id number] 16:35:00Interface, External Ris In - 04/14/2020 4:37 [...] in the left ankle. Signed: Isadora Hernandez Verified Date/Time: 04/14/2020 16:35:15 Reading Location: [facility] Radiology Reading Room [facility] HospitalMORENA [id number] 15:42:00* Test Item Value Reference Range Interpretation Comments TROPONIN I (BEAKER) (test code = 397) 0.22 ng/mL 0.00-0.03 [...] acidosis, acute neurological disease, and per sistent tachyarrhythmia.Cooker Casing ID - BSBASIC METABOLIC [id number] 15:35:00 * Test Item Value Reference Range [...] GFR IS NOT APPLICABLE FOR DIALYSIS PATIENTS. Cooker Casing ID - BSB-type Natriuretic Factor (BNP)2020-04-14 15:33:00* Test Item Value Reference Range Interpretation Comments BNP (test code = 99081-1) 347 pg/mL 0-100 H GABBY (test code = GABBY) Cooker Casing ID - BS Lab Interpretation (test code = 09022-8) Abnormal [facility] HospitalB-TYPE NATRIURETIC FACTOR (BNP)2020-04-14 15:33:00 * Test Item Value Reference Range Interpretation Comments B-TYPE NATRIURETIC PEPTIDE (BEAKER) (test code = 700) 347 pg/mL 0-100 H Cooker Casing ID - BSCardiac Enzymes - [id number] 15:28:00* Test Item Value Reference Range Interpretation Comments Total CK (test code = 2157-6) 52 U/L 29-200 GABBY (test code = GABBY) Cooker Casing ID - BS Lab Interpretation (test code = 31098-1) Normal [facility] HospitalCREATINE KINASE (CK)2020-04-14 15:28:00* Test Item Value Reference Range Interpretation Comments CREATINE KINASE TOTAL (BEAKER) (test code = 380) 52 U/L 29-20 0 Cooker Casing ID - BSPT/wISH5951-93-05 15:14:00* Test Item Value Reference Range Interpretation Comments Protime (test code = 5902-2) 14.9 11.9- 14.2 seconds H INR (test code = 6301-6) 1.20 <=5.90 PTT (test code = 90452-6) 30.7 22.5- 36.0 seconds GABBY (test code = GABBY) Effective 12/11/2018: PT Refe rence Range ChangeNew: 11.9- 14.2 Previous: 11.7-14.7 RECOMMENDED COUMADIN/WARFARIN INR THERAPY RANGESSTANDARD DOSE: 2.0-3.0 Includes: PROPHYLAXIS for venous thrombosis, sys temic embolization; TREATMENT for venous thrombosis and/or pulmonary embolus.HIGH RISK: Target INR is 2.5-3.5 for patients wiht mechanical heart valves. Lab Interpretation (test code = 19646-4) Abnormal [facility] HospitalPT/[id number] 15:14:00* Test Item Value Reference Range Interpretation [...] mechanical heart valves.CBC W/PLT COUNT & AUTO YMFZLMYTDGER6442-98-97 15:04:00* Test Item Value Reference Range Interpretation [...] Count (test code = 6690-2) 5.05 4.8-10.8 [facility] erythrocytes automated count (number/volume)2020-04-07 04:30:00* Test Item Value Reference Range Interpretation Comments Red Blood Count (test code = 789-8) 3.44 3.6-5.1 [facility] CenterBlood hemoglobin measurement (moles/volume)2020-04-07 04:30:00* Test Item Value Reference Range Interpretation Comments Hemoglobin (test code = 83787-9) 10.3 12.0-16.0 [facility] CenterAutomated blood hematocrit (volume fraction)2020-04-07 04:30:00* Test Item Value Reference Range Interpretation Comments Hematocrit (test code = 4544-3) 34.4 34.2-44.1 [facility] CenterAutomated erythrocyte mean corpuscular fruqek9907-44-44 04:30:00* Test Item Value Reference Range Interpretation Comments Mean Corpuscular Volume (test code = 787-2) 100.0 81-99 [facility] CenterAutomated erythrocyte mean corpuscular hemoglobin (mass per erythrocyte)2020-04-07 04:30:00* Test Item Value Reference Range Interpretation Comments Mean Corpuscular Hemoglobin (test code = 785-6) 29.9 28-32 [facility] CenterAutomated erythrocyte mean corpuscular hemoglobin concentration measurement (mass/volume)2020-04-07 04:30:00* Test Item Value Reference Range Interpretation Comments Mean Corpuscular Hemoglobin Concent (test code = 786-4) 29.9 31-35 [facility] CenterRDW PybNm-Gtb6260-94-23 04:30:00* Test Item Value Reference Range Interpretation Comments Red Cell Distribution Width (test code = 95618-4) 16.5 11.7 -14.4 [facility] CenterAutomated blood platelet count (count/volume)2020-04-07 04:30:00* Test Item Value Reference Range Interpretation Comments Platelet Count (test code = 777-3) 147 140-360 [facility] CenterAutomated blood segmented neutrophil count as percentage of total kbaiygtyvf9323-96-16 04:30:00* Test Item Value Reference Range Interpretation Comments Neutrophils (%) (Auto) (test code = 86552-0) 63.3 38.7-80.0 [facility] CenterAutomated blood lymphocyte count as percentage ot total ytnzdgwzoy0136-16-79 04:30:00* Test Item Value Reference Range Interpretation Comments Lymphocytes (%) (Auto) (test code = 736-9) 19.8 18.0-39.1 [facility] CenterAutomated blood monocyte count as percentage of total vlxfgngyod6574-10-42 04:30:00* Test Item Value Reference Range Interpretation Comments Monocytes (%) (Auto) (test code = 5905-5) 13.1 4.4-11.3 [facility] CenterAutomated blood eosinophil count as percentage of total pgfbzbleva3822-94-62 04:30:00* Test Item Value Reference Range Interpretation Comments Eosinophils (%) (Auto) (test code = 713-8) 3.2 0.0-6.0 [facility] CenterAutomated blood basophil count as percentage of total shzyotrbmx9906-02-09 04:30:00* Test Item Value Reference Range Interpretation Comments Basophils (%) (Auto) (test code = 706-2) 0.4 0.0-1.0 [facility] CenterFluoroscopic procedure less than one hour zsagzuqz2171-62-25 04:30:00* Test Item Value Reference Range Interpretation Comments IM GRANULOCYTES % (test code = IM GRANULOCYTES %) 0.2 0.0- 1.0 [facility] CenterAutomated blood neutrophil count 2020-04-07 04:30:00* Test Item Value Reference Range Interpretation Comments Neutrophils # (Auto) (test code = 751-8) 3.2 2.1-6.9 [facility] CenterBlood lymphocytes count (number/volume) 2020-04-07 04:30:00* Test Item Value Reference Range Interpretation Comments Lymphocytes # (Auto) (test code = 71801-5) 1.0 1.0-3.2 [facility] CenterBlood monocytes automated count (number/volume)2020-04-07 04:30:00* Test Item Value Reference Range Interpretation Comments Monocytes # (Auto) (test code = 742-7) 0.7 0.2-0.8 [facility] CenterAutomated blood eosinophil count 2020-04-07 04:30:00* Test Item Value Reference Range Interpretation Comments Eosinophils # (Auto) (test code = 711-2) 0.2 0.0-0.4 [facility] CenterAutomated blood basophil count (count/volume)2020-04-07 04:30:00* Test Item Value Reference Range Interpretation Comments Basophils # (Auto) (test code = 704-7) 0.0 0.0-0.1 [facility] CenterFluoroscopic procedure less than one hour yedtdvnm7166-06-22 04:30:00* Test Item Value Reference Range Interpretation Comments Absolute Immature Granulocyte (auto (toby t code = Absolute Immature Granulocyte (auto) 0.01 0-0.1 [facility] sodium measurement (moles/volume)2020-04-07 04:30:00* Test Item Value Reference Range Interpretation Comments Sodium Level (test code = 2951-2) 143 136-145 [facility] Hospitaler[facility] plasma potassium measurement (moles/volume)2020-04-07 04:30:00* Test Item Value Reference Range Interpretation Comments Potassium Level (test code = 2823-3) 4.9 3.5-5.1 [facility] Hospitaler[facility] or plasma chloride measurement (moles/volume)2020-04-07 04:30:00* Test Item Value Reference Range Interpretation Comments Chloride Level (test code = 2075-0) 104 98-107 [facility] Hospitalerum or plasma carbon dioxide, total measurement (moles/volume)2020-04-07 04:30:00* Test Item Value Reference Range Interpretation Comments Carbon Dioxide Level (test code = 2028-9) 27 22-29 [facility] Hospitalerum or plasma anion pim3656-64-50 04:30:00* Test Item Value Reference Range Interpretation Comments Anion Gap (test code = 17461-2) 16.9 8-16 [facility] Hospitaler[facility] plasma urea nitrogen measurement (mass/volume)2020-04-07 04:30:00* Test Item Value Reference Range Interpretation Comments Blood Urea Nitrogen (test code = 3094-0) 38 7-26 [facility] Hospitaler[facility] or plasma creatinine measurement (mass/volume)2020-04-07 04:30:00* Test Item Value Reference Range Interpretation Comments Creatinine (test code = 2160-0) 5.77 0.57-1.11 [facility] Hospitalerum or plasma urea nitrogen/creatinine mass skihe8975-74-70 04:30:00* Test Item Value Reference Range Interpretation Comments BUN/Creatinine Ratio (test code = 3097-3) 7 6-25 [facility] CenterEstimated glomerular filtration rate (GFR) ahsahpvbkylto0292-57-77 04:30:00* Test Item Value Reference Range Interpretation Comments Estimat Glomerular Filtration Rate (test code = 872473733) 9 >60 Ranges were taken from the National Kidney Disease Education Program and the [facility] Foundation literature.Reference ranges:60 or greater: Iopzlj86-34 ( for 3 consecutive months): Chronic kidney disease 15 or less: Kidney failureOakBend Medical CenterGlucose alryrptehot2952-81-87 04:30:00* Test Item Value Reference Range Interpretation Comments Glucose Level (test code = IBD8091) 127 74-118 [facility] Hospitaler[facility] or plasma calcium measurement (mass/volume)2020-04-07 04:30:00* Test Item Value Reference Range Interpretation Comments Calcium Level (test code = 89810-8) 7.4 8.4-10.2 [facility]/- PELVIS[facility]2020-04-06 17:23:00 [facility] [address] [address] Patient Name: ANGELA JEFFERS MR #: [id number] : 1945 Age/Sex: 75/F Req #: [id number] Adm Physician: CHERELLE VELASQUEZ MD Ordered by: CHERELLE VELASQUEZ MD Report #: [id number] Location: [facility] Room/Bed: [place] [address] Procedure: [id number] DX/HIP LEFT 2 -3 VW (+/- PELVIS) [...] Bilirubin (test code = 1975-2) 0.5 0.2-1.2 [facility] CenterFluoroscopic procedure less than one hour wghwqhpc4534-03-78 04:40:00* Test Item Value Reference Range Interpretation Comments Aspartate Amino Transf (AST/SGOT) (test code = Aspartate Amino Transf (AST/SGOT)) 12 5-34 [facility] Hospitalerum or plasma alanine aminotransferase measurement (enzymatic activity/volume)2020-04-06 04:40:00* Test Item Value Reference Range Interpretation Comments Alanine Aminotransferase (ALT/SGPT) (test code = 1742-6) 8 0-55 [facility] Hospitaler[facility] or plasma protein measurement (mass/volume)2020-04-06 04:40:00* Test Item Value Reference Range Interpretation Comments Total Protein (test code = 2885-2) 7.1 6.5-8.1 [facility]er[facility] plasma albumin measurement (mass/volume)2020-04-06 04:40:00* Test Item Value Reference Range Interpretation Comments Albumin (test code = 1751-7) 3.1 3.5-5.0 [facility] CenterPlasma globulin measurement (mass/volume) 2020-04-06 04:40:00* Test Item Value Reference Range Interpretation Comments Globulin (test code = 71052-9) 4.0 2.3-3.5 [facility] Hospitaler[facility] or plasma albumin/globulin mass lebnw8181-43-69 04:40:00* Test Item Value Reference Range Interpretation Comments Albumin/Globulin Ratio (test code = 1759-0) 0.8 0.8-2.0 [facility] Hospitaler[facility] plasma alkaline phosphatase measurement (enzymatic activity/volume)2020-04-06 04:40:00* Test Item Value Reference Range Interpretation Comments Alkaline Phosphatase (test code = 6768-6) 101 40-150 [facility] Hospitalerum or plasma creatine kinase measurement (enzymatic activity/volume)2020-04-06 04:40:00* Test Item Value Reference Range Interpretation Comments Creatine Kinase (test code = 2157-6) 43 29-168 [facility] Hospitalerum or plasma creatine kinase MB measurement (mass/volume)2020-04-06 04:40:00* Test Item Value Reference Range Interpretation Comments Creatine Kinase MB (test code = 98613-6) 2.10 0-5.0 [facility] CenterTroponin I measurement by highly sensitive enzyme kprbacsisci4483-39-82 04:40:00* Test Item Value Reference Range Interpretation Comments Troponin I (test code = 23168-6) 0.064 0-0.300 [facility] Hospitalerum or plasma thyrotropin measurement by detection limit <= 0.005 miu/l (units/volume)2020-04-06 04:40:00* Test Item Value Reference Range Interpretation Comments Thyroid Stimulating Hormone (TSH) (test code = 78232-2) 11.746 0.350-4.940 [facility] CenterClostridium difficile A and B toxin assay 2020-04-06 00:46:00* Test Item Value Reference Range Interpretation Comments Clostridium Difficile Toxin A & B (test code = 641213589) NEGATIVE NEGATIVE Testing on stool aspirate specimens is outside collision estimator claims since specime n type not validated on this assay.[facility] CenterHIP LEFT 2-3 VW (+/- PELVIS)2020-04-05 23:15:[address] [place] [address] Patient Name: ANGELA JEFFERS MR #: [id number] : 1945 Age/Sex: 75/F Req #: Adm Physician: CHERELLE VELASQUEZ MD Ordered by: Report #: [id number] Location: [facility] Room/Bed: [place] [address] Procedure: Exam Date: Exam Time: REPORT STATUS: [...] 11:20 PM Dictated By: LOU AMADOR MD 7889 COPY TO: HIP RIGHT 2-3 VW (+/- PELVIS) 2020-04-05 23:15:00 [place] [address] Patient Name: ANGELA JEFFERS MR #: [id number] : 1945 Age/Sex: 75/F Req #: [id number] Adm Physician: CHERELLE VELASQUEZ MD Ordered by: CHERELLE VELASQUEZ MD Report #: [id number] Location: [facility] Room/Bed: [place] [address] Procedure: [id number] DX/HIP RIGHT 2-3 VW (+/- PELVIS) Exam [...] 11:20 PM Dictated By: LOU AYALA MD 104 Transcribed By: ARIEL on 1042 COPY TO: CHERELLE VELASQUEZ MD Serum hepatitis B virus surface antibody assay by radioimmunoassay (units/volume)2020-04-05 19:30:00* Test Item Value Reference Range Interpretation Comments Hepatitis B Surface Antibody, Quant (test code = 5194-6) 187.9 Immunity>9.9 Status of Immunity Anti-HBs Level Inconsistent with Immunity 0.0 - 9.9Consistent with Immunity >9.9[facility] or plasma hepatitis B virus surface antigen detection by vvicuxdrlan1241-19-44 19:30:00* Test Item Value Reference Range Interpretation Comments Hepatitis B Surface Antigen (test code = 5196-1) Negative Negat jinny Performed at: - [facility] [id number] Director: Ronald Arcos MD, Phone: [phone] Medical CenterFluoroscopic procedure less than one hour rfkkgiqi4643-82-61 16:04:00* Test Item Value Reference Range Interpretation Comments Coronavirus (PCR) (test code = Coronavirus (PCR)) NOT DETECTED NOTD ETECTED SARS-CoV-2 PCRHologic Aptima SARS-CoV-2 assay is a nucleic amplification test in tended for the qualitative detection of RNA from SARS-CoV-2 from nasopharyngeal (ELECTRICAL CONSTRUCTION PROJECT MANAGER) specimens. It is used under Emergency Use [...] repr at testing oc clinically indicated.Tesing performed by:[facility] [place] [id number], Trey saeed MD, PhDOakBend Medical CenterProthrombin time (PT) in platelet poor plasma by coagulation cjsui6128-70-31 16:00:00* Test Item Value Reference Range Interpretation Comments Prothrombin Time (test code = 5902-2) 15.2 11.9-14.5 [facility] CenterINR in Platelet poor plasma by Coagulation bevai1668-21-16 16:00:00* Test Item Value Reference Range Interpretation Comments Prothromb Time International Ratio (test code = 6301-6) 1.14 Oral Anticoagulant Therapy INR Values:1. Low Intensity Therapy 1.5 - 2.02 . Moderate Intensity Therapy 2.0 - 3.03. High Intensity Therapy(1) 2.5 - 3. 54. High Intensity Therapy(2) 3.0 - 4.05. Panic Value INR > 5.0 [facility] CenterActivated partial thromboplastin time (aPTT) in platelet poor plasma by coagulation spegs1684-24-40 16:00:00* Test Item Value Reference Range Interpretation Comments Activated Partial Thromboplast Time (test code = 89340-2) 40.4 23.8-35.5 [facility] Hospitaler[facility] or plasma magnesium measurement (mass/volume)2020-04-05 16:00:00* Test Item Value Reference Range Interpretation Comments Magnesium Level (test code = 75701-5) 2.4 1.3-2.1 [facility] CenterCHEST SINGLE (PORTABLE)2020-04-05 15:53:[address] [place] [address] Patient Name: ANGELA JEFFERS MR #: [id number] : 1945 Age/Sex: 75/F Req #: [id number] Adm Physician: Ordered by: WILLIE SCHWARTZ MD Report #: [id number] Location: ER Room/Bed: Procedure: [id number] DX/CHEST SING LE (PORTABLE) Exam Date: 04/05/20 [...] 3:54 PM Dictated By: KASI TO MD 8677 Transcribed By: ARIEL on 04/05/20 276 COPY TO: WILLIE SCHWARTZ MD Prepare Leuko-Red VJN2650-76-58 23:54:00* Test Item Value Reference Range Interpretation Comments CROSSMATCH (test code = 2264) COMPATIBLE Unit ABO (test code = 3360429) B Neg UNIT NUMBER (test code = 934-0) [id number] Status (test code = 7309221) TX_TIMEINCHART Blood Bank Product (test code = 2263) RED BLOOD CELLS PRODUCT CODE (test code = 933-2) [id number] [facility] [id number] 16:36:00* Test Item Value Reference Range Interpretation Comments POC-GLUCOSE METER (BEAKER) (test code = 1538) 170 mg/dL 70-110 H : TESTED AT [facility] [address] [facility], [address]: Cooker Casing/Catheter Finisher And Inspector ID = [id number] for AYUSH JEFFERY POCT-GLUCOSE [id number] 11:47:00* Test Item Value Reference Range Interpretation Comments POC-GLUCOSE METER (BEAKER) (test code = 1538) 162 mg/dL 70-110 H : TESTED AT [place] [address] [facility], [address]: Cooker Casing/Catheter Finisher And Inspector ID = [id number] for AYUSH, JEFFERY POCT-GLUCOSE [id number] 08:12:00* Test Item Value Reference Range Interpretation Comments POC-GLUCOSE METER (BEAKER) (test code = 1538) 136 mg/dL 70-110 H : TESTED AT [place] [address] [facility], [address]: Cooker Casing/Catheter Finisher And Inspector ID = [id number] for AYUSH, JEFFERY CBC W/PLT COUNT & AUTO [id number] 05:51:00* Test Item Value Reference Range Interpretation [...] = 2801) 0 % 0-1 BASIC METABOLIC LYYMY3229-95-52 05:32:00* Test Item Value Reference Range Interpretation [...] GFR IS NOT APPLICABLE FOR DIALYSIS PATIENTS. Cooker Casing ID - [id number] 05:31:00* Test Item Value Reference Range Interpretation Comments PHOSPHORUS (BEAKER) (test code = 604) 3.7 mg/dL 2.3-4.7 Cooker Casing ID - [id number] 05:31:00* Test Item Value Reference Range Interpretation Comments MAGNESIUM (BEAKER) (test code = 627) 1.9 mg/dL 1.6-2.6 Cooker Casing ID - EDASIPOCT-GLUCOSE [id number] 22:09:00* Test Item Value Reference Range Interpretation Comments POC-GLUCOSE METER (BEAKER) (test code = 1538) 111 mg/dL 70-110 H : TESTED AT [address], [address]: Cooker Casing/Catheter Finisher And Inspector ID = [id number] for ERIK SANTANA POCT-GLUCOSE [id number] 15:41:00* Test Item Value Reference Range Interpretation Comments POC-GLUCOSE METER (BEAKER) (test code = 1538) 122 mg/dL 70-110 H : TESTED AT [address], [address]: Cooker Casing/Catheter Finisher And Inspector ID = [id number] for Saran Hall POCT-GLUCOSE [id number] 13:43:00* Test Item Value Reference Range Interpretation Comments POC-GLUCOSE METER (BEAKER) (test code = 1538) 118 mg/dL 70-110 H : TESTED AT [address], [address]: Cooker Casing/Catheter Finisher And Inspector ID = [id number] for Saran Hall Type and screen, gqbfhrunu5192-47-29 12:01:00* Test Item Value Reference Range Interpretation Comments ABO/RH AUTOMATED (BEAKER) (test code = 2260) B POSITIVE Ab Scrn (test code = 890-4) NEGATIVE [facility] 11:40:00* Test Item Value Reference Range Interpretation Comments FERRITIN (BEAKER) (test code = 361) 1153.25 ng/mL 5.00-275.00 H Cooker Casing ID - PIETROIron, [id number] 11:21:00* Test Item Value Reference Range Interpretation Comments Iron (test code = 2498-4) 22.0 ug/dL 40-160 L Lab Interpretation (test code = 07400-4) Abnormal [facility] HospitalIR[facility], TIBC, % SAT. (WITHOUT FERRITIN)2020-03-01 11:21:00* Test Item Value Reference Range Interpretation Comments IRON (BEAKER) (test code = 547) 22.0 ug/dL 40.0-160.0 L TOTAL IRON BINDING CAPACITY (BEAKER) (test code = 769) 126 ug/dL 250-450 L IRON % SATURATION (2) (BEAKER) (test code = 2590) 17 % 20-5 5 L Cooker Casing ID - EDASIIRON, [id number] 11:21:00* Test Item Value Reference Range Interpretation Comments IRON (BEAKER) (test code = 547) 22.0 ug/dL 40.0-160.0 L Reticulocyte srvmh5923-58-34 10:46:00* Test Item Value Reference Range Interpretation Comments % Retic (test code = 21051-6) 2.6 % 0.5-1.7 H GABBY (test code = GABBY) Cooker Casing ID - 6000 Lab Interpretation (test code = 58843-6) Abnormal [facility] HospitalRETICULOCYTE [id number] 10:46:00* Test Item Value Reference Range Interpretation Comments RETICULOCYTE COUNT PCT (BEAKER) (test code = 575) 2.6 % 0.5- 1.7 H Cooker Casing ID - 6000POCT-GLUCOSE [id number] 07:29:00* Test Item Value Reference Range Interpretation Comments POC-GLUCOSE METER (BEAKER) (test code = 1538) 147 mg/dL 70-110 H : TESTED AT [facility] [address] [facility], [address]: Cooker Casing/Catheter Finisher And Inspector ID = [id number] for Saran Hall BASIC METABOLIC [id number] 05:45:00* Test Item Value Reference Range Interpretation [...] GFR IS NOT APPLICABLE FOR DIALYSIS PATIENTS. Cooker Casing ID - [id number] 05:29:00* Test Item Value Reference Range Interpretation Comments PHOSPHORUS (BEAKER) (test code = 604) 4.6 mg/dL 2.3-4.7 Cooker Casing ID - [id number] 05:29:00* Test Item Value Reference Range Interpretation Comments MAGNESIUM (BEAKER) (test code = 627) 2.0 mg/dL 1.6-2.6 Cooker Casing ID - DBCBC W/PLT COUNT & AUTO [id number] 05:27:00* Test Item Value Reference Range Interpretation [...] code = 2801) 0 % 0-1 Prepare [id number] 23:54:00* Test Item Value Reference Range Interpretation Comments CROSSMATCH (test code = 2264) COMPATIBLE Unit ABO (test code = 4174456) B Pos UNIT NUMBER (test code = 934-0) [id number] Status (test code = 6669401) [place]_TIMEINCPRESCOTT [facility] CENTERT Blood Bank Product (test code = 2263) RED BLOOD CELLS PRODUCT CODE (test code = 933-2) [id number] [facility] HospitalPOCT-GLUCOSE [id number] 20:57:00* Test Item Value Reference Range Interpretation Comments POC-GLUCOSE METER (BEAKER) (test code = 1538) 119 mg/dL 70-110 H : TESTED AT [facility] [address] [place] [place], [address]: Cooker Casing/Catheter Finisher And Inspector ID = [id number] for BELKYS BUTT POCT-GLUCOSE [id number] 17:04:00* Test Item Value Reference Range Interpretation Comments POC-GLUCOSE METER (BEAKER) (test code = 1538) 115 mg/dL 70-110 H : Notified RN/MD: TESTED AT [facility] [address] [facility], [address]: Cooker Casing/Catheter Finisher And Inspector ID = [id number] for KINGA FLETCHER POCT-GLUCOSE [id number] 11:46:00* Test Item Value Reference Range Interpretation Comments POC-GLUCOSE METER (BEAKER) (test code = 1538) 105 mg/dL 70-110 : TESTED AT [address], [address]: Cooker Casing/Catheter Finisher And Inspector ID = [id number] for MALIKA BRUCE POCT-GLUCOSE [id number] 08:04:00* Test Item Value Reference Range Interpretation Comments POC-GLUCOSE METER (BEAKER) (test code = 1538) 100 mg/dL 70-110 : TESTED AT [address], [address]: Cooker Casing/Catheter Finisher And Inspector ID = [id number] for MALIKA BRUCE BASIC METABOLIC [id number] 07:39:00* Test Item Value Reference Range Interpretation [...] GFR IS NOT APPLICABLE FOR DIALYSIS PATIENTS. Cooker Casing ID - PIAYA [id number] 07:05:00* Test Item Value Reference Range Interpretation Comments PHOSPHORUS (BEAKER) (test code = 604) 4.4 mg/dL 2.3-4.7 Cooker Casing ID - JUNI [id number] 07:05:00* Test Item Value Reference Range Interpretation Comments MAGNESIUM (BEAKER) (test code = 627) 1.9 mg/dL 1.6-2.6 Cooker Casing ID - JUNI LCBC W/PLT COUNT & AUTO [id number] 05:48:00* Test Item Value Reference Range Interpretation [...] code = 2801) 0 % 0-1 POCT-GLUCOSE [id number] 05:39:00* Test Item Value Reference Range Interpretation Comments POC-GLUCOSE METER (BEAKER) (test code = 1538) 111 mg/dL 70-110 H : TESTED AT [address], [address]: Cooker Casing/Catheter Finisher And Inspector ID = [id number] for JULIAREUBEN POCT-GLUCOSE [id number] 05:34:00* Test Item Value Reference Range Interpretation Comments POC-GLUCOSE METER (BEAKER) (test code = 1538) 119 mg/dL 70-110 H : TESTED AT [address], [address]: Cooker Casing/Catheter Finisher And Inspector ID = [id number] for GALLEGOS, TED POCT-GLUCOSE [id number] 05:30:00* Test Item Value Reference Range Interpretation Comments POC-GLUCOSE METER (BEAKER) (test code = 1538) 134 mg/dL 70-110 H : TESTED AT [address], [address]: Cooker Casing/Catheter Finisher And Inspector ID = [id number] for Bianka Trevizo POCT-GLUCOSE [id number] 05:23:00* Test Item Value Reference Range Interpretation Comments POC-GLUCOSE METER (BEAKER) (test code = 1538) 131 mg/dL 70-110 H : TESTED AT [address], [address]: Cooker Casing/Catheter Finisher And Inspector ID = [id number] for PING TURNER CBC W/PLT COUNT & AUTO [id number] 06:16:00* Test Item Value Reference Range Interpretation [...] = 2801) 0 % 0-1 BASIC METABOLIC [id number] 06:11:00* Test Item Value Reference Range Interpretation [...] GFR IS NOT APPLICABLE FOR DIALYSIS PATIENTS. Cooker Casing ID - CURT [id number] 06:10:00* Test Item Value Reference Range Interpretation Comments PHOSPHORUS (BEAKER) (test code = 604) 8.3 mg/dL 2.3-4.7 H Cooker Casing ID - CURT [id number] 06:10:00* Test Item Value Reference Range Interpretation Comments MAGNESIUM (BEAKER) (test code = 627) 2.0 mg/dL 1.6-2.6 Cooker Casing ID - CURT MPOCT-GLUCOSE [id number] 21:55:00* Test Item Value Reference Range Interpretation Comments POC-GLUCOSE METER (BEAKER) (test code = 1538) 172 mg/dL 70-110 H : TESTED AT [facility] [address] [facility], [address]: Cooker Casing/Catheter Finisher And Inspector ID = [id number] for DAYSI SEVILLA POCT-GLUCOSE [id number] 15:32:00* Test Item Value Reference Range Interpretation Comments POC-GLUCOSE METER (BEAKER) (test code = 1538) 200 mg/dL 70-110 H : TESTED AT [facility] [address] [facility], [address]: Cooker Casing/Catheter Finisher And Inspector ID = [id number] for Jasmeet Williamson POCT-GLUCOSE [id number] 11:47:00* Test Item Value Reference Range Interpretation Comments POC-GLUCOSE METER (BEAKER) (test code = 1538) 156 mg/dL 70-110 H : TESTED AT [place] [address] [facility], [address]: Cooker Casing/Catheter Finisher And Inspector ID = [id number] for Jasmeet Williamson POCT-GLUCOSE [id number] 10:22:00* Test Item Value Reference Range Interpretation Comments POC-GLUCOSE METER (BEAKER) (test code = 1538) 141 mg/dL 70-110 H : TESTED AT [address], [address]: Cooker Casing/Catheter Finisher And Inspector ID = [id number] for ARABELLA SALMON POCT-GLUCOSE [id number] 07:51:00* Test Item Value Reference Range Interpretation Comments POC-GLUCOSE METER (BEAKER) (test code = 1538) 163 mg/dL 70-110 H : TESTED AT [address], [address]: Cooker Casing/Catheter Finisher And Inspector ID = [id number] for Jasmeet Williamson BASIC METABOLIC [id number] 04:51:00* Test Item Value Reference Range Interpretation [...] GFR IS NOT APPLICABLE FOR DIALYSIS PATIENTS. Cooker Casing ID - [id number] 04:47:00* Test Item Value Reference Range Interpretation Comments PHOSPHORUS (BEAKER) (test code = 604) 7.9 mg/dL 2.3-4.7 H Cooker Casing ID - [id number] 04:47:00* Test Item Value Reference Range Interpretation Comments MAGNESIUM (BEAKER) (test code = 627) 2.0 mg/dL 1.6-2.6 Cooker Casing ID - EDASICBC W/PLT COUNT & AUTO [id number] 04:16:00* Test Item Value Reference Range Interpretation [...] code = 2801) 0 % 0-1 POCT-GLUCOSE [id number] 19:16:00* Test Item Value Reference Range Interpretation Comments POC-GLUCOSE METER (BEAKER) (test code = 1538) 115 mg/dL 70-110 H : TESTED AT [address], [address]: Cooker Casing/Catheter Finisher And Inspector ID = [id number] for GRANT COMER FL, FLUORO, NON-SPECIFIC, UP TO 1 [id number] 17:15:00Reason for exam:->left hip ORIFFluoroscopic unit utilized for a procedure performed in the OR. No interpretation was requested. Refer to the operative report for findings. Refer to PACS for patient radiation dose information.FL fluoro non-specific up to 1 [id number] 17:15:00Interface, External Ris In - 02/26/2020 5:35 PM CDTFluoroscopic unit utilized for a procedure performed in the OR. No interpretation was requested. Refer to the operative report for findings. Refer to PACS for patient radiation dose information.[facility] [id number] 13:29:00* Test Item Value Reference Range Interpretation Comments POC-GLUCOSE METER (BEAKER) (test code = 1538) 95 mg/dL 70-110 : TESTED AT [facility] [address] [facility], [address]: Cooker Casing/Catheter Finisher And Inspector ID = [id number] for RALPH ALBA SARS-COV2/RT-PCR ([facility])2020-02-26 09:39:00* Test Item Value Reference Range Interpretation Comments SARS-COV2/RT-PCR (test code = 6448753) Negative N ot Detected, Negative, See external report for linked test SARS-COV-2 PERFORMING LAB (test code = 2699259) [facility] Negative result for this test determines that [...] from individuals suspected of COVID-[address] [facility] provider.This test has not been Food and Drug Administration (FDA) clear ed or approved. This is a modified version of an approved Emergency Use Authori zation (EUA) and is in the process of review by the FDA. Once authorized by [facility] FDA, the issued EUA will be effective until the declaration that circumstances exist justifying the authorization of the emergency use of in vitro diagnostic tests for detection and/or diagnosis of COVID-19 is terminated under Section 564 (b)(2) of the Act or the EUA is revoked under Section 564(g) of the Act.Fact She et for Healthcare Providers:https://www.[employer].com/sites/default/files/product/d ocuments/Smwo_Oodpc_MW_Xpknudgrf_Qlpq_DTVU-IfB-7.pdfFact Sheet for Healthcare Pa sallie:https://www.[employer].com/sites/default/files/product/documents/Fact_Sheet_P prrwecd_Zdzz_OIVK-ZwK-1.pdfPerforming Laboratory:[facility] r6[facility] Amanda [address].[place], [place] [address]KCUJ-QIESRBS [id number] 07:38:00* Test Item Value Reference Range Interpretation Comments POC-GLUCOSE METER (BEAKER) (test code = 1538) 114 mg/dL 70-110 H : TESTED AT [facility] [address] [facility], [address]: Cooker Casing/Catheter Finisher And Inspector ID = [id number] for HANSA BILLS BASIC METABOLIC [id number] 04:38:00* Test Item Value Reference Range Interpretation [...] GFR IS NOT APPLICABLE FOR DIALYSIS PATIENTS. Cooker Casing ID - [id number] 04:21:00* Test Item Value Reference Range Interpretation Comments PHOSPHORUS (BEAKER) (test code = 604) 3.7 mg/dL 2.3-4.7 Cooker Casing ID - [id number] 04:21:00* Test Item Value Reference Range Interpretation Comments MAGNESIUM (BEAKER) (test code = 627) 2.0 mg/dL 1.6-2.6 Cooker Casing ID - EDASICBC W/PLT COUNT & AUTO [id number] 03:51:00* Test Item Value Reference Range Interpretation [...] code = 2801) 0 % 0-1 HEMODIALYSIS [id number] 02:14:00Kathia Blankenship RN 02/26/2020 2:14 AMLab Results [...] tolerated the treatment. Endorsed to nurse accordingly. [facility] [id number] 01:46:00 * Test Item Value Reference Range Interpretation Comments POC-GLUCOSE METER (BEAKER) (test code = 1538) 112 mg/dL 70-110 H : TESTED AT [facility] [address] [place] [address], [address]: Cooker Casing/Catheter Finisher And Inspector ID = [id number] for Kathia Blankenship BASIC METABOLIC [id number] 21:52:00* Test Item Value Reference Range Interpretation [...] GFR IS NOT APPLICABLE FOR DIALYSIS PATIENTS. Cooker Casing ID - ASHEPATITIS B SURFACE [id number] 21:50:00* Test Item Value Reference Range Interpretation Comments HEPATITIS B SURFACE ANTIGEN (2) (BEAKER) (test code = 2585) Nonreactive Nonreactive Specimen is considered negative for HBsAg.BASIC METABOLIC [id number] 17:49:00* Test Item Value Reference Range Interpretation [...] GFR IS NOT APPLICABLE FOR DIALYSIS PATIENTS. PT/[id number] 17:42:00* Test Item Value Reference Range Interpretation [...] heart valves. Lab Interpretation (test code = 70189-0) Normal [facility] HospitalPROTHROMBIN [facility]/[id number] 17:42:00* Test Item Value Reference Range Interpretation [...] mechanical heart valves.CBC W/PLT COUNT & AUTO [id number] 17:42:00* Test Item Value Reference Range Interpretation [...] 417) 0.03 K/ L 0. 00-0.20 CRITICAL [id number] 16:23:26Saad Lopez MD 02/25/2020 6:55 PMCritical CarePerformed by: Saad [...] care time that i s documented here. 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 denies locReason for exam:->LEG PAINShould this be [...] Verified Date/Time: 02/25/2020 16:19:51 Re ading Location: [facility] C013W Consult Reading Room , FEMUR, MIN. 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 denies locReason for exam:->LEG PAINShould this be [...] Verified Date/Time: 02/25/2020 16:19:51 Re ading Location: [address] Consult Reading Room T SINGLE (PORTABLE)2019-11-14 22:04:00 [place] [address] Patient Name: ANGELA JEFFERS MR #: [id number] : 1945 Age/Sex: 74/F Req #: [id number] Adm Physician: Ordered by: KODY ALEMAN DO Report #: [id number] Location: ER Room/Bed: Procedure: [id number] DX/CHEST SINGL E (PORTABLE) Exam Date: 11/14/19 [...] 10:06 PM Dictated By: DEBRA VALERIO MD 05 Transcribed By: ARIEL on 11/14/192205 COPY TO: KODY ALEMAN DO BNP [id number] 20:50:00* Test Item Value Reference Range Interpretation Comments B-Type Natriuretic Peptide (test code = 94562-9) 378.6 0-100 [facility] [id number] 16:40:00* Test Item Value Reference Range Interpretation Comments Case Report (test code = 104) Surgical Pathology Repor t Case: [id number] Authorizing Provider: Goyo Haji, Collected: 10/24/2019 11:36 AM Ordering Location: [facility] PERIOPERATIVE Received: 10/24/2019 01:44 PM SERVICES Pathologist: Yumiko Brito MD Specimen: Soft Tissue, Other, Transmetatarsal right foot DIAGNOSIS (test code = 3220) x0vljVXzIETny8fvVPFaiRIxDcAhSfHpMpSxPhcbyLBvYVjudwAlIAigx6NoK6RsPbScWGwcpwYgMWKh ZcdzuflbIHFmECT7zwUjTHFcBBgtMVGzHWssPm7uoLPkpWplKwEqTAXfv7zlhnVDemzwxJb0q5dbTPOz HxJ8jXEvMWjfY3zevmBwtSOtZEEfWVy0rE19MZXctL 6fbNXsPMsaztBrYpL3FVbhTEViCgB2EPGocGDnHUTvZ1mxQOVuBYvqKZHmPOhaoNQrLVG6dRjla9E4zL YanMVwcHmyHcXaAwPxSAKNr5WjSKa4tPuoQ7GhTPCcEyC9iCWyTOQlRAocNBSdEQLfxtA7vZ02ISbzsi J8hQSin6Uwx30pl228oL4xgLGhZGN7LIScLOErsVMq KASuSPD7OTFhhWNfQ3c1IfEsqTObP2H4BwXzhIRmJ0R9KpQxvJMzA6M1XmDpeOWwPPHccDKxSe2pcSZv iQAcav4nxs81QUS8p1BmhPgiOIP0VYE4WbLpHc6fyLDtCJUhUU0dElPjpFUwLTOfuj01rVytOYnbbwRu qK8aYcBmUQMjnWJiNWIdEN7ubGZcZKMlvI3zcfzwVC EfPnTxekazIVXmmStagnJmWu6vlPbpMVF1MYwfH6dyhU5bZxW0BFshX2zmbJ5wLEz0YRhkjZA1NYKcoX 6cIL8jcrcll8wdIjMxFS7giiyyo3onYgGxFN5ldad0v9cpNmDvHD5flzkmj2taZrYuPMcqHRVucrqkCR Sob1HabvkvHNJzn8QkW9MqxDzqK07roZjfN21bIDAu oPayeA9clLalmT5bOeWwBhGaPEtroKpluEUwmprlZXuvybKyRYyzmonyPAHpEBjcZ4cjPjMtMOFuaQkd GYkpx3PrNMXbYSClUxJaTuaCYAYvSw0KFOylXSNXQlEEZGYDAJVRZ4AGKGNESLXJYQWXY339VUTomeVs ICHvPPNVCATDUQLjTD2GICJPCppFTyWFNLZTMKNTVX 8CNIUntjRbJBEnLGZFTF0KIxBCICPRSPFNR4TJBoKBFJIYAQXJWAHWRCbKHjeiTNEEBUIbO4ICMR8GDA ZYGTQVCqTdY5UYWAFCVZ9ZAyBwWXUhkvYyVYKbFGUSP7VINLFJC9GDTIBTUIMCT1KHZ15aUPBQS7xHHY nADAoxQiJVGf4ROPUzHU1MWNCVROLLQOxBStmQPL3G EDjCCldmIQI3s3qpuNEpWXFtlVZfYBYgWDqamsXtIPLuFsggmmhlGMHnEDD2hbTeANCzWCviGGMvJNcp Tu0lwXVimFbsWqRbKCLqz6cddfOGdcypvGq7e6miVBVaZmM3lITqUIzlV0wbhhDomZWvFXJiSMr6dO94 FIQwtS4bpLEyXTxfjgGzTzS6SMbrPCUrXrY9EAJdvA FaBULxR8tnLCSbMNqqXABpNOafhJYhNVG5nRykd9Y1zIVaoWSwxIyoOmTgQuXuUbGNz1UzYFj2pYhnK5 DpNVKtEpS6qSIzMJTsGEhhDJUeWWRamqF7gZ88IAsvknR9lPJgd6Epw79hd848pI1jbSGlOAH0XATuJV ZzvMOtIRIgXXI7DWYviTDhL6suZZFnIG0idwcwKRiv MUgyPJNbmXZ5KYMprUHmK8PyXJZuPVkxWZMjpyt7QhXpHo0guMOodElkGWrik7wxx6hxdXSeXcz1ETIl SjKvGqecQOwqp0Mkg8wbRMEchq1iOIN5jFXnxKbft5Z2dNPkICYhmXUgFRNuMQ8iaZWcANNuvS6ukkqr CNPrXoUrvqqtPMAktGikybWhDh5ltNldYRU2MShqQ0 vxvC6tZpF3VEtxG3gpiE0rGGf8TDoyXCXpyZU5ugT0QWLjdYHqV3XafN0uABJfBS2dczs1q5qgFTE1QA jtPYJtUvP2llQ6GPYbaKRcLKJdeGewVBivg388VLT3XcOgPADcy8KfH8JfaYyhO68pwRjiS40mCOFetR qabC1teCuweQ0wMlBbEjWfGOpsvZnjDA3nZVMxJ5lx eVMmFRUbJEIrD9njLbRxnV1ewLpvYXxxmmXwWEXuWsz2PWHgtHGwOWAtKmu2PMJhUROqM53niliyARJ5 aK3vd6fij3PeMEtfNWR4OXSop47lMVsjwlY3EDieEl8sFhYpVKW5DLbjHBJ3jO== COMMENT (test code = 3359) p3laxNJvATGnpCBwTxLcKQSsEUQpm5beKFZngNGeVmLlNcIdRzOtFxbgwTMvVVGoNgTlb5tti749aNKn s2coFCJcBmA8rLLnNUWcjZUvR312u6zzc4yxvpCkqZT9EOPuOIM2ZYenckUcvhZ5WCgsjEKtXpO7ENwv auElSLflixXsciLlSjk6DSOyE985BSY2uVlaw8lgNG S9VWGsOQEeBkHzEf2xsYBmV766RNXaLYWCEJZldQv8IOIjunRgdfAdaYFRq122D124f2bmTMErbsSgjE aZojpyt1gdT264EZSkiKQvdmRpVfGiWMUynROknDU0PLHyBF1qrlcpGzIuVW5qapciBuPjDM2hjvj4Ps XjXO6jwpivCxSzQGlqMJSzdqsxLDBjx4MjewenLP4j G1Wzp1S9pB4hvFOqIKDswWExIaFuZKWhyz3qhFAjXFhni0HhIZW0dbG4uENmiHGaKHRlCH30Mrndb2Rd KyscUTZ3NERghqZvm3Zgt2puSmOnywNaX7qzI0AkZWYzYZExEINyTqQrvhZwo3Okd2HtaTBeaEk7n9rc VXTpVIDdqZbky0ebXGK9FJMtJ8T7sBTnv6nvROvuRX JnkWY5jdocOVidHFOgzmY3dxcxOOnuACPuuCG8vsogRJauAZJfQyG8vrggOKlnPGPxLBY0BJnsm246UR T2RXdoFsxrZHygVJEybpPmovGeqDnqDFZhOCNhOKybYZGfWPkvJUXrQZOkNcBbwHkasJrtnC2lGbUtDq BqKZyoTK7vWLRyW4fsjRIqTWBiDGYrX4wnDwNorA0w fKbeDLclqkVbROX0FIQ5fwA0vPEcAeQiX85mylCnNWXtFXI2olYhj6XyfMrjIVQuUAYdzZHmJNA3tJMk Ih2dWVAqZKSpK1Ctm30xxXKnC0rkyaWoMX1il3YsXpMcHXPrby8wfrfpmXIuiRNyytYluXC6XRQcSChn l2I5BNViXH5gUHMsAsvvvWZcotKwOAU7oOEsp2G1GO 6knQBirESvzgMzdiRuh5DjyxWmlwQ0tGTabX9tw0ttuENyn7PpmMe3vKZeDXFfeiUfiwAsFFX1vV1rLH 3hirplwiQcKRXcdZ7qHXlaxhqmGR7eFNXpTQC0hKKsNFCsBV7oIRTcGAUeCHKmTF1tHLBofKucEJTug4 KwFychEWNagaBjumOxSAV9jN5kGM4elghmvpZoPTZb zE4lX2TgA5OkMXftaI9fpJReoYYuo3AoCYrqyWrhqaSacbHzZZMtnZ3qcsTlLK9pEVPnvu4= CPT Code(s) (test code = 3357) p4ioyBXzGZElnDJvUyOeQPYrKPXcm6blNHTkdTUeBvUbUzGwVdAtYruorCVdXCJmSvRmf5iho699qIXa z3njKCAlKkI0zRTwSZNbrFXcZ371DLNhUUhtz7rpl2SvNNSceSZix5H0FZHJcyjbpGd8dAtiW27rs6P7 TpxdS9leTNClGRIgB4PpXD7vEVTgGto3OEX1UXG9GK WjJLSqL9QgNZ2aHEYkoFXhVVn2b1tslGgmHJQpHOS0e6bcBHkwbmZyBM2vti5ddHu3w3jgzsBfKUQkHJ VvzIRMPKSiL3ZczZxlGo0ffGi6dSakDxcrIVV4Oyn0RF5hxf41odv8bMbmDSQaaxltLvB6PQnsJOEhnj vqFJx2UXsjYGFthOnpXPrhHQYqwklnJDdkSDJwnNjw DWftMPBxRhceBWeiGIYlFHZ6PRzmq077FVR9XRpfe5hrz1dvaLAmEmq6OFZxCgAdWiucNQhma5Juz0cp GLLueg6eOBM8bLUjpMgqc5P4dAAaHLGknVXsqqCmCMXiNsB9ZTwsRY4vfs03RZMfSDL2xa6vqBZgxNvh nlCwkBGtMRtbP6XwJFZac435WJOiI1IzUGNwq6V5gb XlKoOgGMCqwRC2ysM1FESmVOl5eBInqeY9jxGhtFWiN6zbgM63BsMjkHOkA7FjxJ32PmScsCUaF2XvcI 35JkFgnKMfL5ZvfN16RhDojDUnPKEgiDYqXx3yjOWwkJQll0XquNGoPDjnN72hq674JAGkvgUzS1xozN JgggioiSSlxevqBSnlhxZ9OUSjXSSyFUthBKUbFCDn FjMvgPKeEgUuIjVrjMihiPjzANxuAwGkPRClMKtmS8sfZbAvGpRfHCO9OVDpPCzqRMycSTNmqDTydN== CLINICAL HISTORY (test code = 3356) g2bidYJsRMXndRWsBnTfGPMbLEDmi1klHHUelIWxMvPrXjYxLxUcIsyopEApTYCqOpPir7jlk107nRMg j6iwFQUwWxA2rIDnSYEmeBPqH211w3wug5nxtyCdlKO0YLMsMCN0UPcmiaJrheH6DUnfeURwTjV8LRdx wqTcYZakteHroyXaKdy0KLVeX595VJQ0tIqzj8izGW U0QOAaPZGkAjDdYw9sdIFfG821CRJmEXSYMLIkeHy9XBDuhoEasePzmVIQf227M873t3usVNFtlmNkoU sFyqpoi7xuG367AXIuiNVwjvCwKwVjELAhlUUrqYT8GPHzEW9udsbzMbCbCQ1puoozCxYbUA5ftxw2Hj RhMW6anfugRbDuOLjtCKVcjuwbEFRtc4NkgjoaKQ7t F3Qiz8K3pT0eqKBwAZQggMNfKqWuGWGmhn1sbXKiHTldl8HlXVV9mbZ6zWKtrPXuYEMzHT58Hrnsp6Ve CxpaWSD8DEElkpClp9Edb0nkFkAvjgDjW1bzV4ZnITLjZVBqXIBtUhPeasKjh8Pqt1GauBKtpJb5i3uf ZEUlMQTqoRzik0xnPIW4TQUjO1Y3gUQxq1pxRDbyFP StlMA2pkjyHZrrKDZeltJ9tfqoIQgjKYLmpSM6jxysQGqsOWPnToE5hbbdBXvmPEAtELJ0EWqnr260PX M5UYfxZkoiTRhfNCUomkSslwBslLxoWXMxAOAhLBleMMWnJObnKHFsOXPgEwDjiWjdsNknbY3wRwGjYj CtRLspJX6kQPQrO7rblTCgYDOlZPUuD2xoGzTywS6w sTjuBPcbftMwSEXmE2c1HICgs5HcF8NaM5PlriQgSUYybDrqG9CiJ2Ato9Fdx5KacnP1pHRnZWnedA0f LCDucaj5xYVwAPLgP362ddYqneskIUE3 SPECIMEN SOURCE (test code = 3377) l4ttnQRrMOTxfPXaMuApIXNdUANnj1pkDIGenWWlAbIfMsNtToHlPhjdcMCzZWNfAlByb6zpi596yPJk j9ayMKEkWrA6lRGeJBZbzUTxD854g7mlp9lnusFueCI7LPIxRKQ6KHpeteVntpF2QYccrWBgFxZ1WDfz ooQmCLnebwDrrgQnSzj3CLWuW624ZWB2xZwbm0ymKB E8YHInZKNaWzKwEn6wpYRzU066YLUoVULDLMGujAl0WRLrbhYnvgWdmOLJa114K075w0zlZYZaazXhtP hQcaupx2gkQ824GDIrdNQrijQmRwBtGPUmcRQehQB3GRXnJH7jctvpOpDkDT6rhfzgCaDqYS0xedx1Dh VxOQ0mjtbvWpFpDPeaLTPegpciTJLdt8FljnkzSQ8p U7Igf1W5qJ2ogSWdVDGiqOSyZxNgMNFsgf0giSSqYMimy8YxCFZ3iiT9yTUupOBhIPQoMM77Omrvn7Ml KbtrVWO4SIHocwHro5Xqc9krDzEwuzCcS1cyG9ZsZMFpSTFmAVHzLwCqavKir8Rib0BbdPZmvAb8p0jd LSQmLQYufTvco2hiLXQ3XGZzR1T6kECct9ykQNccOC VajDH3iktuZYsgIXZkdvN6mxopJWjeEGEecNY9ezuzYIjhUITnClQ2txcnHVbzTEYhDNN1JExrm174VY W5FLruNhboACmmREAwvzBheiFfaYcyFEObOKBpXGatJPWuWFaoGUMePJVnJxEhpLoynPsreX7bDdIrJt MsRAupLK5gTPAxL6znfXFuFUVvOTFdS3yfBsDhpC4a jEclGBosxmByOYRaPE6hvIP0XIRvrpTgbQSepGryyLKlt674UXSvcc9= GROSS DESCRIPTION (test code = 3366) r2xkbOAqVSLebJWeSfWaBWPcVWGre5axBPTvfBZhSfAhPoXqCkHuNwzpaUEzFIUkIeQoq2avf930pHNf q5mkZDMcYqO6wNEaHATyaJKqY991ADCwRPmmv8ojs2OmTPKueZOjh4X3QXFFmgahdAg7cKnlP02zk0P8 DosgJ8nkDBRjBNnbYSXvKKhauFRoOEY0WCWbEZO4IE ycgxWfzfC9LTgfsXUqJoL2AHe4m0loxUgvGLVvKEH6v0bfETjhcrScQC9wcd6ixPb7r0vayuAxIUNsNG HtlESMPRVeX7XvfEmxNn9vqRw2pEktIatoEWQ4Jeh2HS8lvi41rjg0dJlyZYVgbdqfKwR8WNaaBWHsty qbXMs9KRxvKTValRyoWGxsOICpfcmzYWqyLZYnmCjv WGjwNFXrOspiYFgpZOGoVLC1IQdxp022MLX7ZCuir9egl9vkmXScFdw3TUAlGfFhTxjpVMqma4Ans5uq YRIxax2oXDL5rCXaxOxle0O0yIRmQWQujKZehhRdLDLhJaX3UVazEI2cta37QEBmQBD6ii8vwVAcaNsv faUyxELsQExfV3NhRRTge316JLDnX4AaOLKov0W9nu InRxWmHKXdkUU1ufE8VKLuECo1xDVvekN1ufZlhFYsG7ypeV02XyHjjIIzZ6MvxP52EcQmfKCuS7MrfQ 64EwApmREkV7SdwN63IePatJJzBOMwrNZhOw1mwDIewNUrx8GrzAIpKGdqV01ie401ECXcuqWfL2yowA FpblxwbGFpblxmMFxmczIwXHFsXHBsYWluXGYwXGZz [file] NBJhsTOpIicnUVDvi14rAIFvB7izdQmhGHPywr0= MICROSCOPIC DESCRIPTION (test code = 3371) y1tiiPPlUBQwyMKkQiIjPSTlYKFky4adZOEpuROzUtMoDjGzKqIqKlyfhSSbJSPjCwXns7lty605dXVj e9djIHUdQgE5pJPcIDQgnCAhU459b2rpm0ghqrMytIG4VRGbJSR7QUuzsmLcuhF0OWxshYYtRtO4DHdj gjOvCFwwjaNxjeMyMhx1YTXyR111IQG9lExzo9eeQI T7ERUePWMkZmGcJt3dfFNhN055OPAcUUBKHHZobYh3RHZegyYidoWukAWNn975U044k3inUYFyjvKlfL jLzmreb5xoD667KSSzrUFrbsRzJlXyMRVmgKZpiYW2TLCoJG3mjqivJlSeLB1euezfKeAgDD6gmcj9Mw IvWM3ruffzQdQhRHxzVZBebyopNFMeb5HimngnWN3i F7Wnf4M3lB4yxLDtNEFqzYRwMqOuDTBxby2jxNUuHNpwb4JkJLU8xnP0vZNkfPNmFJCjMY11Jmqoz6Ee SntzEAG2VULqxwYms6Dts9qgCbGqzhKtB1oaM9OhQBZoVDIeJELqKhOqjoRvv7Jnj9OxvDRnfZh1b2af QYPcQDPeaRjag8pcQDE8REYuQ4K4oHVcc9wuXWsbVE InwOR8iagrUNwiNAMicfS6jkjeMOthPRUauZK3dvqbEFbkRZSfBgR0vubbUIhcAEHoVEF0GOuhy220BX O7MIpvBunuBLjaWQYidbVovqNkgEqePQAcOLPhAJufVHBgFTawOVMuBVMoZsVyhQfcfCcfsQ8eNsXjVf YzBRejNF5zBBEmR7qcdNYhFVRfOGCbJ4qtMeAbmE0dxRjkJNrjyuShBAJqghHerq3uIB2pvLRhbJ== [facility] [id number] 16:40:00Surgical Pathology Report Case: [id number] Authorizing Provider: Goyo Haji, Collected: 10/24/2019 11:36 AM Ordering Location: [facility] PERIOPERATIVE Received: 10/24/2019 01:44 PM SERVICES Pathologist: Yumiko Brito MD Specimen: Soft Tissue, Other, Transmetatarsal right foot RIGHT FOOT, TRANSMETATARSAL AMPUTA TION: - STATUS POST PRIOR AMPUTATION - GANGRENE NECROSIS WITH UNDERLYING A CUTE OSTEOMYELITIS (SEE COMMENT) - SOFT TISSUE RESECTION MARGIN WITH NECROSIS AND ACUTE INFLAMMATION Signing Pathologist Direct Phone Line: [phone] Due to the frag mented nature of the specimen, the bone resection margins cannot be appropriatel y evaluated. However, no definitive acute osteomyelitis are seen on the possible submitted bone resection margins. Remodeling and reactive changes are seen at t he possible bone resection margins. Clinical/radiological correlation is recomme nded. 62908, 90289Oymeg foot gangrene, dehiscence of operative wound, initial [...] shay-yellow and trabeculated and devoid of lesions. Dairy Feed Worker sections are submitted. Section code: A1, separate segment of bone margin, en face and repres entative of separate soft tissue fragment; A2, ulcerative closest skin/soft tiss ue margin (blue) and payable representative of closest bone (presumed hallux), following decalcification; A3, two smaller bone segment margins on transmetatarsal amputa tion, en face, following decalcification;A4, larger two bone segment margins fro m transmetatarsal amputation, en face, following decalcification. CG/pl Perfor med.POCT-GLUCOSE [id number] 15:13:00* Test Item Value Reference Range Interpretation Comments POC-GLUCOSE METER (BEAKER) (test code = 1538) 135 mg/dL 70-110 H : TESTED AT [place] [id number] [facility], [address]: Cooker Casing/Catheter Finisher And Inspector ID = [id number] for GALLEGOS, TED POCT-GLUCOSE [id number] 12:07:00* Test Item Value Reference Range Interpretation Comments POC-GLUCOSE METER (BEAKER) (test code = 1538) 127 mg/dL 70-110 H : TESTED AT [facility] [address] [facility], [address]: Cooker Casing/Catheter Finisher And Inspector ID = [id number] for ZENAIDA ARNOLDOE POCT-GLUCOSE [id number] 16:48:00* Test Item Value Reference Range Interpretation Comments POC-GLUCOSE METER (BEAKER) (test code = 1538) 138 mg/dL 70-110 H : TESTED AT [place] [id number] [facility], [address]: Cooker Casing/Catheter Finisher And Inspector ID = [id number] for Isabel, Areiona POCT-GLUCOSE [id number] 11:50:00* Test Item Value Reference Range Interpretation Comments POC-GLUCOSE METER (BEAKER) (test code = 1538) 146 mg/dL 70-110 H : TESTED AT [address], [address]: Cooker Casing/Catheter Finisher And Inspector ID = [id number] for Isabel, Areiona POCT-GLUCOSE [id number] 17:15:00* Test Item Value Reference Range Interpretation Comments POC-GLUCOSE METER (BEAKER) (test code = 1538) 170 mg/dL 70-110 H : TESTED AT [address], [address]: Cooker Casing/Catheter Finisher And Inspector ID = [id number] for GALLEGOS, TED POCT-GLUCOSE [id number] 17:15:00* Test Item Value Reference Range Interpretation Comments POC-GLUCOSE METER (BEAKER) (test code = 1538) 198 mg/dL 70-110 H : TESTED AT [address], [address]: Cooker Casing/Catheter Finisher And Inspector ID = [id number] for GALLEGOS, TED POCT-GLUCOSE [id number] 21:48:00* Test Item Value Reference Range Interpretation Comments POC-GLUCOSE METER (BEAKER) (test code = 1538) 141 mg/dL 70-110 H : TESTED AT [address], [address]: Cooker Casing/Catheter Finisher And Inspector ID = [id number] for WASHINGTON HALL POCT-GLUCOSE [id number] 17:35:00* Test Item Value Reference Range Interpretation Comments POC-GLUCOSE METER (BEAKER) (test code = 1538) 130 mg/dL 70-110 H : TESTED AT [address], [address]: Cooker Casing/Catheter Finisher And Inspector ID = [id number] for PENNY, KEYAIRA POCT-GLUCOSE [id number] 13:09:00* Test Item Value Reference Range Interpretation Comments POC-GLUCOSE METER (BEAKER) (test code = 1538) 119 mg/dL 70-110 H : TESTED AT [address], [address]: Cooker Casing/Catheter Finisher And Inspector ID = [id number] for PENNY, KEYAIRA POCT-GLUCOSE [id number] 11:24:00* Test Item Value Reference Range Interpretation Comments POC-GLUCOSE METER (BEAKER) (test code = 1538) 109 mg/dL 70-110 : TESTED AT [facility] [address] [facility], [address]: Cooker Casing/Catheter Finisher And Inspector ID = [id number] for PING TURNER POCT-GLUCOSE [id number] 08:35:00* Test Item Value Reference Range Interpretation Comments POC-GLUCOSE METER (BEAKER) (test code = 1538) 120 mg/dL 70-110 H : TESTED AT [facility] [address] [facility], [address]: Cooker Casing/Catheter Finisher And Inspector ID = [id number] for PING TURNER BASIC METABOLIC [id number] 08:31:00* Test Item Value Reference Range Interpretation [...] GFR IS NOT APPLICABLE FOR DIALYSIS PATIENTS. Cooker Casing ID - MERRITT CCBC W/PLT COUNT & AUTO [id number] 08:08:00* Test Item Value Reference Range Interpretation [...] code = 2801) 1 % 0-1 POCT-GLUCOSE [id number] 20:46:00* Test Item Value Reference Range Interpretation Comments POC-GLUCOSE METER (BEAKER) (test code = 1538) 126 mg/dL 70-110 H : TESTED AT [facility] [address] [facility], [address]: Cooker Casing/Catheter Finisher And Inspector ID = [id number] for WASHINGTON HALL POCT-GLUCOSE [id number] 18:24:00* Test Item Value Reference Range Interpretation Comments POC-GLUCOSE METER (BEAKER) (test code = 1538) 135 mg/dL 70-110 H : TESTED AT [address], [address]: Cooker Casing/Catheter Finisher And Inspector ID = [id number] for BLANCHE COTTER Vancomycin level, [id number] 18:21:00* Test Item Value Reference Range Interpretation Comments Vancomycin Rm (test code = 19359-4) 21.8 ug/mL GABBY (test code = GABBY) Reference Range: No NormalsOperator ID - DARLING PETTIT [facility], [id number] 18:21:00* Test Item Value Reference Range Interpretation Comments VANCOMYCIN RANDOM (BEAKER) (test code = 523) 21.8 ug/mL Reference Range: No NormalsOperator ID - ROSIANGPOCT-GLUCOSE [id number] 13:07:00* Test Item Value Reference Range Interpretation Comments POC-GLUCOSE METER (BEAKER) (test code = 1538) 118 mg/dL 70-110 H : TESTED AT [address], [address]: Cooker Casing/Catheter Finisher And Inspector ID = [id number] for TONY PALOMO [id number] 10:06:00* Test Item Value Reference Range Interpretation Comments POTASSIUM (BEAKER) (test code = 379) 4.3 meq/L 3.5-5.1 Cooker Casing ID - ROSIANGPOCT-GLUCOSE [id number] 06:53:00* Test Item Value Reference Range Interpretation Comments POC-GLUCOSE METER (BEAKER) (test code = 1538) 132 mg/dL 70-110 H : TESTED AT [address], [address]: Cooker Casing/Catheter Finisher And Inspector ID = [id number] for JOSE, GUILLERMO POCT-GLUCOSE [id number] 21:38:00* Test Item Value Reference Range Interpretation Comments POC-GLUCOSE METER (BEAKER) (test code = 1538) 137 mg/dL 70-110 H : TESTED AT [address], [address]: Cooker Casing/Catheter Finisher And Inspector ID = [id number] for JOSE, GUILLERMO POCT-GLUCOSE [id number] 18:09:00* Test Item Value Reference Range Interpretation Comments POC-GLUCOSE METER (BEAKER) (test code = 1538) 112 mg/dL 70-110 H : TESTED AT [facility] [address] [facility], [address]: Cooker Casing/Catheter Finisher And Inspector ID = [id number] for BIANKA ONEIL HEPATITIS B SURFACE [id number] 15:00:00* Test Item Value Reference Range Interpretation Comments HEPATITIS B SURFACE ANTIGEN (2) (ELIAZAR) (test code = 2585) Nonreactive Nonreactive Cooker Casing ID - BIMAL FVANCOMYCIN LEVEL, [id number] 14:37:00* Test Item Value Reference Range Interpretation Comments VANCOMYCIN RANDOM (ELIAZAR) (test code = 523) 11.0 ug/mL Reference Range: No NormalsOperator ID - BIMAL FPOCT-GLUCOSE [id number] 12:16:00* Test Item Value Reference Range Interpretation Comments POC-GLUCOSE METER (ELIAZAR) (test code = 1538) 143 mg/dL 70-110 H : TESTED AT [facility] [address] [facility], [address]: Cooker Casing/Catheter Finisher And Inspector ID = [id number] for BIANKA ONEIL HEMOGLOBIN [id number] 10:30:00* Test Item Value Reference Range Interpretation Comments HEMOGLOBIN A1C (ELIAZAR) (test code = 368) 6.5 % 4.3-6.1 H [id number] 06:10:00* Test Item Value Reference Range Interpretation Comments PROTIME (ELIAZAR) (test code = 759) 13.6 seconds 11.9-14.2 INR (ELIAZAR) (test code = 370) 1.1 <=5.9 PARTIAL THROMBOPLASTIN TIME (ELIAZAR) (test code = 760) 38.3 seconds 22.5-36.0 H Effective 12/11/2018: PT Reference Range ChangeNew: 11.9-14.2 Previous: 11.7-14. 7RECOMMENDED COUMADIN/WARFARIN INR THERAPY RANGESSTANDARD DOSE: 2.0-3.0 Include s: PROPHYLAXIS for venous thrombosis, systemic embolization; TREATMENT for venou s thrombosis and/or pulmonary embolus.HIGH RISK: Target INR is 2.5-3.5 for patie nts wiht mechanical heart valves.BASIC METABOLIC [id number] 05:58:00* Test Item Value Reference Range Interpretation [...] GFR IS NOT APPLICABLE FOR DIALYSIS PATIENTS. Cooker Casing ID - PIAYA LCBC W/PLT COUNT & AUTO [id number] 05:23:00* Test Item Value Reference Range Interpretation [...] code = 2801) 0 % 0-1 POCT-GLUCOSE [id number] 22:57:00* Test Item Value Reference Range Interpretation Comments POC-GLUCOSE METER (BEAKER) (test code = 1538) 157 mg/dL 70-110 H : TESTED AT [facility] [address] [facility], [address]: Cooker Casing/Catheter Finisher And Inspector ID = [id number] for [place] BASIC METABOLIC [id number] 18:03:00* Test Item Value Reference Range Interpretation [...] GFR IS NOT APPLICABLE FOR DIALYSIS PATIENTS. Cooker Casing ID - [id number] 18:02:00* Test Item Value Reference Range Interpretation Comments PHOSPHORUS (BEAKER) (test code = 604) 7.1 mg/dL 2.3-4.7 H Cooker Casing ID - [id number] 18:02:00* Test Item Value Reference Range Interpretation Comments MAGNESIUM (BEAKER) (test code = 627) 2.2 mg/dL 1.6-2.6 Cooker Casing ID - BSPOCT-GLUCOSE [id number] 17:58:00* Test Item Value Reference Range Interpretation Comments POC-GLUCOSE METER (BEAKER) (test code = 1538) 193 mg/dL 70-110 H : TESTED AT [address], [address]: Cooker Casing/Catheter Finisher And Inspector ID = [id number] for TIFFANY SYLVESTER Creatine Kinase [id number] 13:03:00* Test Item Value Reference Range Interpretation Comments Creatine Kinase MB (test code = 98107-7) 3.00 0-5.0 [facility]Troponin [id number] 13:03:00* Test Item Value Reference Range Interpretation Comments Troponin I (test code = IUL8931) 0.027 0-0.300 [facility] [id number] 12:55:00* Test Item Value Reference Range Interpretation Comments Sodium Level (test code = 2951-2) 142 136-145 [facility]Potassium [id number] 12:55:00* Test Item Value Reference Range Interpretation Comments Potassium Level (test code = 2823-3) 4.0 3.5-5.1 [facility] CenterChloride [id number] 12:55:00* Test Item Value Reference Range Interpretation Comments Chloride Level (test code = 2075-0) 104 98-107 [facility] CenterCarbon Dioxide [id number] 12:55:00* Test Item Value Reference Range Interpretation Comments Carbon Dioxide Level (test code = 2028-9) 25 22-29 [facility] CenterAnion [id number] 12:55:00* Test Item Value Reference Range Interpretation Comments Anion Gap (test code = 38705-0) 17.0 8-16 H [facility] CenterBlood Urea [id number] 12:55:00* Test Item Value Reference Range Interpretation Comments Blood Urea Nitrogen (test code = 3094-0) 75 7-26 H [facility] CenterCreatinine2020-03-31 12:55:00* Test Item Value Reference Range Interpretation Comments Creatinine (test code = 2160-0) 9.48 0.57-1.11 H [facility] CenterBUN/Creatinine Vekog5838-20-57 12:55:00* Test Item Value Reference Range Interpretation Comments BUN/Creatinine Ratio (test code = 3097-3) 8 6-25 [facility] CenterEstimat Glomerular Filtration Rate 2019-10-14 12:55:00* Test Item Value Reference Range Interpretation Comments Estimat Glomerular Filtration Rate (test code = 315785397) 5 >60 L Ranges were taken from the National Kidney Disease Education Program and the [facility] Kid[facility] Foundation literature.Reference ranges:60 or greater: Nukniv84-73 ( for 3 consecutive months): Chronic kidney disease 15 or less: Kidney failureOakBend Medical CenterGlucose Wtxuj8133-34-45 12:55:00* Test Item Value Reference Range Interpretation Comments Glucose Level (test code = CTL7303) 137 74-118 H [facility] CenterCalcium Sqxnz3879-24-18 12:55:00* Test Item Value Reference Range Interpretation Comments Calcium Level (test code = 17764-9) 8.4 8.4-10.2 [facility] CenterTotal Burpccezd4470-88-08 12:55:00* Test Item Value Reference Range Interpretation Comments Total Bilirubin (test code = 1975-2) 0.4 0.2-1.2 [facility] CenterAspartate Amino Transf (AST/SGOT) 2019-10-14 12:55:00* Test Item Value Reference Range Interpretation Comments Aspartate Amino Transf (AST/SGOT) (test code = Aspartate Amino Transf (AST/SGOT)) 12 5-34 [facility] CenterAlanine Aminotransferase (ALT/SGPT) 2019-10-14 12:55:00* Test Item Value Reference Range Interpretation Comments Alanine Aminotransferase (ALT/SGPT) (test code = 1742-6) 8 0-55 [facility] CenterTotal Akuckut1344-71-50 12:55:00* Test Item Value Reference Range Interpretation Comments Total Protein (test code = 2885-2) 7.7 6.5-8.1 [facility] CenterAlbumin2020-03-31 12:55:00* Test Item Value Reference Range Interpretation Comments Albumin (test code = 1751-7) 3.0 3.5-5.0 L [facility] CenterGlobulin2020-03-31 12:55:00* Test Item Value Reference Range Interpretation Comments Globulin (test code = 88464-7) 4.7 2.3-3.5 H [facility] CenterAlbumin/Globulin Xjimb0816-80-83 12:55:00 * Test Item Value Reference Range Interpretation Comments Albumin/Globulin Ratio (test code = 1759-0) 0.6 0.8-2.0 L [facility] CenterAlkaline Baleizavfkf9791-86-80 12:55:00* Test Item Value Reference Range Interpretation Comments Alkaline Phosphatase (test code = 6768-6) 74 40-150 [facility] CenterCreatine Ebrmgn1345-01-23 12:55:00* Test Item Value Reference Range Interpretation Comments Creatine Kinase (test code = 2157-6) 92 29-168 [facility] CenterProthrombin Eovq5288-60-44 12:46:00* Test Item Value Reference Range Interpretation Comments Prothrombin Time (test code = 5902-2) 14.1 11.9-14.5 [facility] CenterProthromb Time International Ratio 2019-10-14 12:46:00* Test Item Value Reference Range Interpretation Comments Prothromb Time International Ratio (test code = 6301-6) 1.03 Oral Anticoagulant Therapy INR Values:1. Low Intensity Therapy 1.5 - 2.02 . Moderate Intensity Therapy 2.0 - 3.03. High Intensity Therapy(1) 2.5 - 3. 54. High Intensity Therapy(2) 3.0 - 4.05. Panic Value INR > 5.0 [facility] CenterActivated Partial Thromboplast Time 2019-10-14 12:46:00* Test Item Value Reference Range Interpretation Comments Activated Partial Thromboplast Time (test code = 46848-1) 39.5 23.8-35.5 H [facility] CenterWhite Blood Kqekx0390-76-01 12:38:00* Test Item Value Reference Range Interpretation Comments White Blood Count (test code = 6690-2) 8.20 4.8-10.8 [facility] CenterRed Blood Kdyux0786-95-83 12:38:00* Test Item Value Reference Range Interpretation Comments Red Blood Count (test code = 789-8) 3.11 3.6-5.1 L [facility] CenterHemoglobin2020-03-31 12:38:00* Test Item Value Reference Range Interpretation Comments Hemoglobin (test code = 39006-5) 8.8 12.0-16.0 L [facility] CenterHematocrit2020-03-31 12:38:00* Test Item Value Reference Range Interpretation Comments Hematocrit (test code = 4544-3) 29.2 34.2-44.1 L [facility] CenterMean Corpuscular Iuxusj6312-37-12 12:38:00* Test Item Value Reference Range Interpretation Comments Mean Corpuscular Volume (test code = 787-2) 93.9 81-99 [facility] CenterMean Corpuscular Gzphmiyiqe7659-06-24 12:38:00* Test Item Value Reference Range Interpretation Comments Mean Corpuscular Hemoglobin (test code = 785-6) 28.3 28-32 [facility] CenterMean Corpuscular Hemoglobin Concent 2019-10-14 12:38:00* Test Item Value Reference Range Interpretation Comments Mean Corpuscular Hemoglobin Concent (test code = 786-4) 30.1 31-35 L [facility] CenterRed Cell Distribution Mopez4009-31-51 12:38:00* Test Item Value Reference Range Interpretation Comments Red Cell Distribution Width (test code = 15081-8) 15.5 11.7 -14.4 H [facility] CenterPlatelet Uqfnk3554-02-45 12:38:00* Test Item Value Reference Range Interpretation Comments Platelet Count (test code = 777-3) 236 140-360 [facility] CenterNeutrophils (%) (Auto)2019-10-14 12:38:00 * Test Item Value Reference Range Interpretation Comments Neutrophils (%) (Auto) (test code = 08755-2) 72.1 38.7-80.0 [facility] CenterLymphocytes (%) (Auto)2019-10-14 12:38:00 * Test Item Value Reference Range Interpretation Comments Lymphocytes (%) (Auto) (test code = 736-9) 15.6 18.0-39.1 L [facility] CenterMonocytes (%) (Auto)2019-10-14 12:38:00* Test Item Value Reference Range Interpretation Comments Monocytes (%) (Auto) (test code = 5905-5) 8.9 4.4-11.3 [facility] CenterEosinophils (%) (Auto)2019-10-14 12:38:00 * Test Item Value Reference Range Interpretation Comments Eosinophils (%) (Auto) (test code = 713-8) 2.9 0.0-6.0 [facility] CenterBasophils (%) (Auto)2019-10-14 12:38:00* Test Item Value Reference Range Interpretation Comments Basophils (%) (Auto) (test code = 706-2) 0.1 0.0-1.0 [facility] CenterIM GRANULOCYTES %2019-10-14 12:38:00* Test Item Value Reference Range Interpretation Comments IM GRANULOCYTES % (test code = IM GRANULOCYTES %) 0.4 0.0- 1.0 [facility] CenterNeutrophils # (Auto)2019-10-14 12:38:00* Test Item Value Reference Range Interpretation Comments Neutrophils # (Auto) (test code = 751-8) 5.9 2.1-6.9 [facility] CenterLymphocytes # (Auto)2019-10-14 12:38:00* Test Item Value Reference Range Interpretation Comments Lymphocytes # (Auto) (test code = 15211-8) 1.3 1.0-3.2 [facility] CenterMonocytes # (Auto)2019-10-14 12:38:00* Test Item Value Reference Range Interpretation Comments Monocytes # (Auto) (test code = 742-7) 0.7 0.2-0.8 [facility] CenterEosinophils # (Auto)2019-10-14 12:38:00* Test Item Value Reference Range Interpretation Comments Eosinophils # (Auto) (test code = 711-2) 0.2 0.0-0.4 [facility] CenterBasophils # (Auto)2019-10-14 12:38:00* Test Item Value Reference Range Interpretation Comments Basophils # (Auto) (test code = 704-7) 0.0 0.0-0.1 [facility] CenterAbsolute Immature Granulocyte (auto 2019-10-14 12:38:00* Test Item Value Reference Range Interpretation Comments Absolute Immature Granulocyte (auto (toby t code = Absolute Immature Granulocyte (auto) 0.03 0-0.1 [facility] CenterPOCT-GLUCOSE [id number] 08:51:00* Test Item Value Reference Range Interpretation Comments POC-GLUCOSE METER (BEAKER) (test code = 1538) 98 mg/dL 70-110 : TESTED AT [facility] [address] [facility], [address]: Cooker Casing/Catheter Finisher And Inspector ID = [id number] for OSBALDO BAIN POCT-GLUCOSE [id number] 21:15:00* Test Item Value Reference Range Interpretation Comments POC-GLUCOSE METER (BEAKER) (test code = 1538) 155 mg/dL 70-110 H : TESTED AT [place] [address] [facility], [address]: Cooker Casing/Catheter Finisher And Inspector ID = [id number] for BEATRICE CURRY POCT-GLUCOSE [id number] 17:02:00* Test Item Value Reference Range Interpretation Comments POC-GLUCOSE METER (BEAKER) (test code = 1538) 111 mg/dL 70-110 H : TESTED AT [address], [address]: Cooker Casing/Catheter Finisher And Inspector ID = [id number] for OCTAVIO JOHANA HEMODIALYSIS [id number] 15:25:12Johana Fernandez, RN 09/18/2019 6:53 PMCompleted 4 hours of [...] CREATININE 8.06 (H) 09/16/2019 Results for ZEYAD ANGELA NELSON ( ) as of 09/18/2019 15:25 Ref. Range 09/13/2019 04:47 Hepatitis B Surface Ag Latest Ref Range: Nonreactive Nonreactive [facility] [id number] 11:47:00* Test Item Value Reference Range Interpretation Comments POC-GLUCOSE METER (BEAKER) (test code = 1538) 135 mg/dL 70-110 H : TESTED AT [address], [address]: Cooker Casing/Catheter Finisher And Inspector ID = [id number] for JUAN ADÁNGILSON POCT-GLUCOSE [id number] 07:50:00* Test Item Value Reference Range Interpretation Comments POC-GLUCOSE METER (BEAKER) (test code = 1538) 109 mg/dL 70-110 : TESTED AT [address], [address]: Cooker Casing/Catheter Finisher And Inspector ID = [id number] for SHERITA MARTINEZ POCT-GLUCOSE [id number] 22:38:00* Test Item Value Reference Range Interpretation Comments POC-GLUCOSE METER (BEAKER) (test code = 1538) 114 mg/dL 70-110 H : TESTED AT [address], [address]: Cooker Casing/Catheter Finisher And Inspector ID = [id number] for SEAN MIRANDA POCT-GLUCOSE [id number] 16:39:00* Test Item Value Reference Range Interpretation Comments POC-GLUCOSE METER (BEAKER) (test code = 1538) 129 mg/dL 70-110 H : TESTED AT [address], [address]: Cooker Casing/Catheter Finisher And Inspector ID = [id number] for SHERITA MARTINEZ POCT-GLUCOSE [id number] 07:54:00* Test Item Value Reference Range Interpretation Comments POC-GLUCOSE METER (BEAKER) (test code = 1538) 130 mg/dL 70-110 H : TESTED AT [address], [address]: Cooker Casing/Catheter Finisher And Inspector ID = [id number] for SHERITA MARTINEZ POCT-GLUCOSE [id number] 20:41:00* Test Item Value Reference Range Interpretation Comments POC-GLUCOSE METER (BEAKER) (test code = 1538) 134 mg/dL 70-110 H : TESTED AT [address], [address]: Cooker Casing/Catheter Finisher And Inspector ID = [id number] for RAMON MARQUEZ POCT-GLUCOSE [id number] 17:26:00* Test Item Value Reference Range Interpretation Comments POC-GLUCOSE METER (BEAKER) (test code = 1538) 138 mg/dL 70-110 H : TESTED AT [address], [address]: Cooker Casing/Catheter Finisher And Inspector ID = [id number] for OSBALDO BAIN POCT-GLUCOSE [id number] 11:33:00* Test Item Value Reference Range Interpretation Comments POC-GLUCOSE METER (BEAKER) (test code = 1538) 100 mg/dL 70-110 : TESTED AT [address], [address]: Cooker Casing/Catheter Finisher And Inspector ID = [id number] for [place] MADDEN BASIC METABOLIC [id number] 05:15:00* Test Item Value Reference Range Interpretation [...] GFR IS NOT APPLICABLE FOR DIALYSIS PATIENTS. Cooker Casing ID - LAWRENCE WCBC W/PLT COUNT & AUTO [id number] 05:05:00* Test Item Value Reference Range Interpretation [...] code = 2801) 0 % 0-1 POCT-GLUCOSE [id number] 21:26:00* Test Item Value Reference Range Interpretation Comments POC-GLUCOSE METER (BEAKER) (test code = 1538) 124 mg/dL 70-110 H : TESTED AT [address], [address]: Cooker Casing/Catheter Finisher And Inspector ID = [id number] for RAMON MARQUEZ POCT-GLUCOSE [id number] 18:25:00* Test Item Value Reference Range Interpretation Comments POC-GLUCOSE METER (BEAKER) (test code = 1538) 166 mg/dL 70-110 H : TESTED AT [place] [address] [facility], [address]: Cooker Casing/Catheter Finisher And Inspector ID = [id number] for OSBALDO BAIN POCT-GLUCOSE [id number] 12:13:00* Test Item Value Reference Range Interpretation Comments POC-GLUCOSE METER (BEAKER) (test code = 1538) 92 mg/dL 70-110 : TESTED AT [place] [address] [facility], [address]: Cooker Casing/Catheter Finisher And Inspector ID = [id number] for PRABHAKAR BAINENNE POCT-GLUCOSE [id number] 08:17:00* Test Item Value Reference Range Interpretation Comments POC-GLUCOSE METER (BEAKER) (test code = 1538) 106 mg/dL 70-110 : TESTED AT [address], [address]: Cooker Casing/Catheter Finisher And Inspector ID = [id number] for OSBALDO BAIN POCT-GLUCOSE [id number] 20:51:00* Test Item Value Reference Range Interpretation Comments POC-GLUCOSE METER (BEAKER) (test code = 1538) 128 mg/dL 70-110 H : Notified RN/MD: TESTED AT [address], [address]: Cooker Casing/Catheter Finisher And Inspector ID = [id number] for BEATRICE CURRY POCT-GLUCOSE [id number] 16:43:00* Test Item Value Reference Range Interpretation Comments POC-GLUCOSE METER (BEAKER) (test code = 1538) 133 mg/dL 70-110 H : TESTED AT [address], [address]: Cooker Casing/Catheter Finisher And Inspector ID = [id number] for ASHOK MARTINEZE POCT-GLUCOSE [id number] 11:38:00* Test Item Value Reference Range Interpretation Comments POC-GLUCOSE METER (BEAKER) (test code = 1538) 229 mg/dL 70-110 H : TESTED AT [address], [address]: Cooker Casing/Catheter Finisher And Inspector ID = [id number] for JUAN, ADÁNSTANIE POCT-GLUCOSE [id number] 06:09:00* Test Item Value Reference Range Interpretation Comments POC-GLUCOSE METER (BEAKER) (test code = 1538) 138 mg/dL 70-110 H : Notified RN/MD: TESTED AT [address], [address]: Cooker Casing/Catheter Finisher And Inspector ID = [id number] for BEATRICE CURRY BASIC METABOLIC [id number] 15:42:00* Test Item Value Reference Range Interpretation [...] GFR IS NOT APPLICABLE FOR DIALYSIS PATIENTS. Cooker Casing ID - AMALIA [id number] 15:35:00* Test Item Value Reference Range Interpretation Comments PHOSPHORUS (BEAKER) (test code = 604) 1.9 mg/dL 2.3-4.7 L Cooker Casing ID - AMALIA NHemoglobin and [id number] 15:18:00* Test Item Value Reference Range Interpretation Comments Hemoglobin (test code = 786-4) 8.5 11.2- 15.7 GM/DL L Hematocrit (test code = 4544-3) 28.3 % 34.1-44.9 L GABBY (test code = GABBY) Cooker Casing ID - [id number] Lab Interpretation (test code = 63064-1) [facility] [id number] 15:18:00* Test Item Value Reference Range Interpretation Comments HEMOGLOBIN (BEAKER) (test code = 410) 8.5 GM/DL 11.2-15.7 L HEMATOCRIT (BEAKER) (test code = 411) 28.3 % 34.1-44.9 L Cooker Casing ID - 6000POCT-GLUCOSE [id number] 11:26:00* Test Item Value Reference Range Interpretation Comments POC-GLUCOSE METER (BEAKER) (test code = 1538) 122 mg/dL 70-110 H : TESTED AT [place] [address] [facility], [address]: Cooker Casing/Catheter Finisher And Inspector ID = [id number] for [place] POCT-GLUCOSE [id number] 07:28:00* Test Item Value Reference Range Interpretation Comments POC-GLUCOSE METER (BEAKER) (test code = 1538) 99 mg/dL 70-110 : TESTED AT [address], [address]: Cooker Casing/Catheter Finisher And Inspector ID = [id number] for [place] HEPATITIS B SURFACE [id number] 05:52:00* Test Item Value Reference Range Interpretation Comments HEPATITIS B SURFACE ANTIGEN (2) (BEAKER) (test code = 2585) Nonreactive Nonreactive Cooker Casing ID - CURT MPOCT-GLUCOSE [id number] 20:57:00* Test Item Value Reference Range Interpretation Comments POC-GLUCOSE METER (BEAKER) (test code = 1538) 147 mg/dL 70-110 H : TESTED AT [address], [address]: Cooker Casing/Catheter Finisher And Inspector ID = [id number] for SAEN MIRANDA POCT-GLUCOSE [id number] 16:48:00* Test Item Value Reference Range Interpretation Comments POC-GLUCOSE METER (BEAKER) (test code = 1538) 158 mg/dL 70-110 H : TESTED AT [address], [address]: Cooker Casing/Catheter Finisher And Inspector ID = [id number] for [place] POCT-GLUCOSE [id number] 12:29:00* Test Item Value Reference Range Interpretation Comments POC-GLUCOSE METER (BEAKER) (test code = 1538) 138 mg/dL 70-110 H : TESTED AT [address], [address]: Cooker Casing/Catheter Finisher And Inspector ID = [id number] for [place] POCT-GLUCOSE [id number] 07:36:00* Test Item Value Reference Range Interpretation Comments POC-GLUCOSE METER (BEAKER) (test code = 1538) 125 mg/dL 70-110 H : TESTED AT [address], [address]: Cooker Casing/Catheter Finisher And Inspector ID = [id number] for [place] POCT-GLUCOSE [id number] 22:02:00* Test Item Value Reference Range Interpretation Comments POC-GLUCOSE METER (BEAKER) (test code = 1538) 136 mg/dL 70-110 H : TESTED AT [address], [address]: Cooker Casing/Catheter Finisher And Inspector ID = [id number] for CAITY MELENDREZSIOBHAN POCT-GLUCOSE [id number] 09:33:00* Test Item Value Reference Range Interpretation Comments POC-GLUCOSE METER (BEAKER) (test code = 1538) 82 mg/dL 70-110 : TESTED AT [address], [address]: Cooker Casing/Catheter Finisher And Inspector ID = [id number] for TR HEBERT POCT-GLUCOSE [id number] 22:02:00* Test Item Value Reference Range Interpretation Comments POC-GLUCOSE METER (BEAKER) (test code = 1538) 103 mg/dL 70-110 : TESTED AT [address], [address]: Cooker Casing/Catheter Finisher And Inspector ID = [id number] for DEMARCUS MELENDREZU POCT-GLUCOSE [id number] 18:19:00* Test Item Value Reference Range Interpretation Comments POC-GLUCOSE METER (BEAKER) (test code = 1538) 112 mg/dL 70-110 H : Notified RN/MD: TESTED AT [address], [address]: Cooker Casing/Catheter Finisher And Inspector ID = [id number] for RICHMONDKHUSHBUNTELL POCT-GLUCOSE [id number] 12:02:00* Test Item Value Reference Range Interpretation Comments POC-GLUCOSE METER (BEAKER) (test code = 1538) 98 mg/dL 70-110 : TESTED AT [address], [address]: Cooker Casing/Catheter Finisher And Inspector ID = [id number] for RICHMOND, SHAWNTELL POCT-GLUCOSE [id number] 09:03:00* Test Item Value Reference Range Interpretation Comments POC-GLUCOSE METER (BEAKER) (test code = 1538) 86 mg/dL 70-110 : TESTED AT [address], [address]: Cooker Casing/Catheter Finisher And Inspector ID = [id number] for RICHMOND, SHAWNTELL BASIC METABOLIC [id number] 06:00:00* Test Item Value Reference Range Interpretation [...] GFR IS NOT APPLICABLE FOR DIALYSIS PATIENTS. Cooker Casing ID - CURT [id number] 05:49:00* Test Item Value Reference Range Interpretation Comments PHOSPHORUS (BEAKER) (test code = 604) 1.7 mg/dL 2.3-4.7 L Specimen slightly hemolyzed Cooker Casing ID - CURT MPOCT-GLUCOSE [id number] 20:47:00* Test Item Value Reference Range Interpretation Comments POC-GLUCOSE METER (BEAKER) (test code = 1538) 124 mg/dL 70-110 H : Notified RN/MD: TESTED AT [address], [address]: Cooker Casing/Catheter Finisher And Inspector ID = [id number] for BEATRICE CURRY TISSUE [id number] 19:31:00Surgical Pathology Report Case: [id number] Authorizing Provider: Goyo Haji, Collected: 08/29/2019 1409 Ordering Location: [facility] PERIOPERATIVE Received: 08/29/2019 1506 SERVICES Pathologist: Steffany Tovar MD Specimen: Foot, Right, right forefoot RIGHT FOREFOOT, TRANSMETATARSAL AMPUTATION: - GANGRENOUS NECROSIS - FOCAL, SUPERFICIAL OSTEOMYELITIS - SKIN AND SOFT TISSUE AT THE MARGIN, VIABLE - BONES AT THE MARGIN, VIABLE - NEGATIVE FOR MALIGNANCY Signing Pathologist Direct Phone Line: [phone] signed by Steffany Tovar MD on 09/09/2019 at 7:31 [id number]; [id number] and postoperative diagnosis: Gangrene of right footA. [...] lesion does not appear to be softened. Dairy [employer] Worker sections are submitted. Section code: A1 skin [...] underlying lesion following decalcification. L?/bc PERFORMED HEMODIALYSIS [id number] 12:23:00José Escalante RN 09/09/2019 12:25 PMLab Results [...] Incontinent stool during HD. José Escalante RN [facility] [id number] 10:19:00* Test Item Value Reference Range Interpretation Comments POC-GLUCOSE METER (BEAKER) (test code = 1538) 124 mg/dL 70-110 H : TESTED AT [address], [address]: Cooker Casing/Catheter Finisher And Inspector ID = [id number] for JOSÉ ESCALANTE POCT-GLUCOSE [id number] 20:43:00* Test Item Value Reference Range Interpretation Comments POC-GLUCOSE METER (BEAKER) (test code = 1538) 144 mg/dL 70-110 H : Notified RN/MD: TESTED AT [address], [address]: Cooker Casing/Catheter Finisher And Inspector ID = [id number] for BEATRICE CURRY POCT-GLUCOSE [id number] 16:39:00* Test Item Value Reference Range Interpretation Comments POC-GLUCOSE METER (BEAKER) (test code = 1538) 163 mg/dL 70-110 H : TESTED AT [address], [address]: Cooker Casing/Catheter Finisher And Inspector ID = [id number] for QUEEN HALL POCT-GLUCOSE [id number] 12:34:00* Test Item Value Reference Range Interpretation Comments POC-GLUCOSE METER (BEAKER) (test code = 1538) 152 mg/dL 70-110 H : TESTED AT [address], [address]: Cooker Casing/Catheter Finisher And Inspector ID = [id number] for QUEEN HALL POCT-GLUCOSE [id number] 08:44:00* Test Item Value Reference Range Interpretation Comments POC-GLUCOSE METER (BEAKER) (test code = 1538) 151 mg/dL 70-110 H : TESTED AT [address], [address]: Cooker Casing/Catheter Finisher And Inspector ID = [id number] for BO OVIEDO [id number] 07:23:00* Test Item Value Reference Range Interpretation Comments PHOSPHORUS (BEAKER) (test code = 604) 1.2 mg/dL 2.3-4.7 LL Cooker Casing ID - NTPPOCT-GLUCOSE [id number] 21:37:00* Test Item Value Reference Range Interpretation Comments POC-GLUCOSE METER (BEAKER) (test code = 1538) 199 mg/dL 70-110 H : TESTED AT [facility] [address] [facility], [address]: Cooker Casing/Catheter Finisher And Inspector ID = [id number] for OLIVER MELENDREZ POCT-GLUCOSE [id number] 18:32:00* Test Item Value Reference Range Interpretation Comments POC-GLUCOSE METER (BEAKER) (test code = 1538) 185 mg/dL 70-110 H : TESTED AT [facility] [address] [facility], [address]: Cooker Casing/Catheter Finisher And Inspector ID = [id number] for JAMMIE CASAS BASIC METABOLIC [id number] 06:44:00* Test Item Value Reference Range Interpretation [...] GFR IS NOT APPLICABLE FOR DIALYSIS PATIENTS. Cooker Casing ID - [id number] 06:41:00* Test Item Value Reference Range Interpretation Comments PHOSPHORUS (BEAKER) (test code = 604) 2.2 mg/dL 2.3-4.7 L Cooker Casing ID - [id number] 06:41:00* Test Item Value Reference Range Interpretation Comments MAGNESIUM (BEAKER) (test code = 627) 2.0 mg/dL 1.6-2.6 Cooker Casing ID - DBCBC W/PLT COUNT & AUTO IGFFNMRMFJAG9321-92-96 05:40:00* Test Item Value Reference Range Interpretation [...] code = 2801) 0 % 0-1 POCT-GLUCOSE [id number] 21:35:00* Test Item Value Reference Range Interpretation Comments POC-GLUCOSE METER (BEAKER) (test code = 1538) 137 mg/dL 70-110 H : TESTED AT [place] [id number] [facility], [address]: Cooker Casing/Catheter Finisher And Inspector ID = [id number] for OLIVER MELENDREZ POCT-GLUCOSE [id number] 12:52:00* Test Item Value Reference Range Interpretation Comments POC-GLUCOSE METER (BEAKER) (test code = 1538) 157 mg/dL 70-110 H : TESTED AT [address], [address]: Cooker Casing/Catheter Finisher And Inspector ID = [id number] for JAMMIE CASAS POCT-GLUCOSE [id number] 07:41:00* Test Item Value Reference Range Interpretation Comments POC-GLUCOSE METER (BEAKER) (test code = 1538) 81 mg/dL 70-110 : TESTED AT [address], [address]: Cooker Casing/Catheter Finisher And Inspector ID = [id number] for JAMMIE CASAS BASIC METABOLIC [id number] 04:53:00* Test Item Value Reference Range Interpretation [...] GFR IS NOT APPLICABLE FOR DIALYSIS PATIENTS. Cooker Casing ID - CURT [id number] 04:37:00* Test Item Value Reference Range Interpretation Comments MAGNESIUM (BEAKER) (test code = 627) 2.1 mg/dL 1.6-2.6 Specimen slightly hemolyzed Cooker Casing ID - CURT [id number] 04:37:00* Test Item Value Reference Range Interpretation Comments PHOSPHORUS (BEAKER) (test code = 604) 3.4 mg/dL 2.3-4.7 Specimen slightly hemolyzed Cooker Casing ID - CURT MCBC W/PLT COUNT & AUTO [id number] 04:16:00* Test Item Value Reference Range Interpretation [...] code = 2801) 0 % 0-1 POCT-GLUCOSE [id number] 22:57:00* Test Item Value Reference Range Interpretation Comments POC-GLUCOSE METER (BEAKER) (test code = 1538) 92 mg/dL 70-110 : TESTED AT [facility] [address] [facility], [address]: Cooker Casing/Catheter Finisher And Inspector ID = [id number] for LORENA CAMPBELL, CHEST, PA OR AP, 1 [id number] 18:02:00Reason for exam:->chest painShould this be performed at the bedside?->YesFINAL REPORT Chest, one view. HISTORY: chest pain COMPARISON: Radiograph from 08/14/2019 IMPRESSION: There are bilateral diffuse alveolar opacities which are most likely due to pulmonary edema. Infection is possible but considered less likely. Trace left pleural effusion. No pneumothorax. The cardiac silhouette is normal in size. No acute bony abnormality. Signed: Darryl Liao [facility] Verified Date/Time: 09/05/2019 18:02:16 Reading Location: [facility] B1 C013W Consult Reading Room chest PA or AP 1 view in [id number] 18:02:00Interface, External Ris In - 09/05/2019 6:04 [...] Liao Verified Date/Time: 09/05/2019 18:02:16 Reading Location: [facility] C013W Consult Reading Room [facility] [id number] 18:01:00Reason for exam:->amsWhat is the patient's sedation [...] is recommended for further characterization. Signed: Ping Louis MDReport Verified Date/Time: 09/05/2019 18:01:01 brain without IV vijlohxj2073-90-45 18:01:00Interface, External Ris In - 09/05/2019 6:03 [...] recommended for further characterizat ion. Signed: Ping Louis MDReport Verified Date/Time: 09/05/2019 18:01:01 [facility]inal[facility] w/Microscopic + Reflex to Ijlcvzc0889-48-73 17:52:00* Test Item Value Reference Range Interpretation Comments Color, UA (test code = 5778-6) Yellow Clarity, UA (test code = 5767-9) Cloudy Specific [place], UA (test code = 5811-5) 1.011 1.001-1.035 pH, UA (test code = 5803-2) 6.0 5.0-8.0 Protein, UA (test code = 67316-8) 200 mg/dL Negative A Glucose, UA (test code = 365) Negative Negative Ketones, UA (test code = 2514-8) Negative Negative Bilirubin, UA (test code = 02295-2) Negative Negative Blood, UA (test code = 88694-1) Small Negative A Nitrite, UA (test code = 5802-4) Negative Negative Leukocytes, UA (test code = 5799-2) Large Negative A Urobilinogen, UA (test code = 84016-0) 0.2 mg/dL 0.2-1 RBC, UA (test code = 00247-6) 14 /HPF WBC, UA (test code = 5821-4) 986 /HPF Bacteria, UA (test code = 64875-4) Many Squam Epithel, UA (test code = 67271-4) 13 /HPF Casts (test code = 9842-6) 108 /LPF Yeast (test code = 78030-0) Few Specimen Source (test code = 2795) GABBY (test code = GABBY) Cooker Casing ID - [auto]Cooker Casing ID - tech Lab Interpretation (test code = 08382-2) [facility] UR[facility] [id number] 17:52:00* Test Item Value Reference Range Interpretation [...] 1585) Few SOURCE(BEAKER) (test code = 2795) Cooker Casing ID - [auto]Cooker Casing ID - techCRITICAL [id number] 17:05:15Rhona Silver MD 09/07/2019 10:41 PMCritical CarePerformed by: Rhona [...] patient's condition and review of old charts. [facility] BASIC METABOLIC [id number] 16:05:00* Test Item Value Reference Range Interpretation [...] GFR IS NOT APPLICABLE FOR DIALYSIS PATIENTS. Cooker Casing ID - KAVITA GIRON [id number] 16:05:00* Test Item Value Reference Range Interpretation [...] acidosis, acute neurological disease, and per sistent tachyarrhythmia.Cooker Casing ID Alfredo [id number] 16:04:00* Test Item Value Reference Range Interpretation Comments Amylase (test code = 1798-8) 34 U/L 25-125 Specimen slightly hemolyzed GABBY (test code = GABBY) Cooker Casing ID Alfredo WALLS W Lab Interpretation (test code = 62195-3) Normal [facility] HospitalLipase2020-02-[facility] 16:04:00* Test Item Value Reference Range Interpretation Comments Lipase (test code = 3040-3) 23 U/L 8-78 GABBY (test code = GABBY) Cooker Casing ID Alfredo WALLS W Lab Interpretation (test code = 61625-0) Normal [facility]LIPASE2020-02-21 16:04:00* Test Item Value Reference Range Interpretation Comments LIPASE (BEAKER) (test code = 749) 23 U/L 8-78 Cooker Casing ID - KAVITA JARAMILLOQSVVDASW4758-41-12 16:04:00* Test Item Value Reference Range Interpretation Comments AMYLASE (BEAKER) (test code = 349) 34 U/L 25-125 Specimen slightly hemolyzed Cooker Casing ID Alfredo WALLS WHEPATIC FUNCTION [id number] 16:04:00* Test Item Value Reference Range Interpretation [...] 347) 10 U/L 6-55 Specimen slightly hemolyzed Cooker Casing SHERMAN WALLS WPT/EABM9541-85-68 15:51:00* Test Item Value Reference Range Interpretation [...] mechanical heart valves.CBC W/PLT COUNT & AUTO TCJSILREQREM2056-60-72 15:39:00* Test Item Value Reference Range Interpretation [...] = 2801) 0 % 0-1 Arterial Blood yH6861-04-10 14:08:00* Test Item Value Reference Range Interpretation Comments Arterial Blood pH (test code = 2744-1) 7.31 7.31-7.41 [facility] Partial Pressure CO2 2019-09-04 14:08:00* Test Item Value Reference Range Interpretation Comments Arterial Blood Partial Pressure CO2 (test code = 2018-) 63 41-51 H [facility] CenterAr[facility] Partial Pressure O2 2019-09-04 14:08:00* Test Item Value Reference Range Interpretation Comments Arterial Blood Partial Pressure O2 (test code = 2019-02) 44 80-105 LL Results called/hand delivered to [] at 1402 on 09/04/19 by Larry Alvarenga RB [place] .[facility] CenterArterial Blood [id number] 14:08:00* Test Item Value Reference Range Interpretation Comments Arterial Blood HCO3 (test code = 1960-4) 31 23-28 H [facility] CenterAr[facility]ial Blood Base Kmistj6971-49-98 14:08:00* Test Item Value Reference Range Interpretation Comments Arterial Blood Base Excess (test code = 1925-7) 5.0 -2-3 H [facility] CenterAr[facility]ial Blood Oxygen Saturation 2019-09-04 14:08:00* Test Item Value Reference Range Interpretation Comments Arterial Blood Oxygen Saturation (test code = 2708-6) 74.0 95-98 L [facility] CenterFiO22020-02-20 14:08:00* Test Item Value Reference Range Interpretation Comments FiO2 (test code = FiO2) 32 2L N/C, RIGHT RADIAL, VENOUS BLOOD GASOakBend Medical Center Arterial Blood [id number] 14:08:00* Test Item Value Reference Range Interpretation Comments Arterial Blood pH (test code = 2744-1) 7.31 7.31-7.41 [facility] CenterArterial Blood Partial Pressure CO2 2019-09-04 14:08:00* Test Item Value Reference Range Interpretation Comments Arterial Blood Partial Pressure CO2 (test code = 2018-8) 63 41-51 H [facility] CenterArterial Blood Partial Pressure O2 2019-09-04 14:08:00* Test Item Value Reference Range Interpretation Comments Arterial Blood Partial Pressure O2 (test code = 2018-8) 44 80-105 LL Results called/hand delivered to [] at 1402 on 09/04/19 by Larry Pastor. [place] .[facility] CenterArterial Blood [id number] 14:08:00* Test Item Value Reference Range Interpretation Comments Arterial Blood HCO3 (test code = 1960-4) 31 23-28 H [facility] CenterArterial Blood Base Osbdha5258-57-47 14:08:00* Test Item Value Reference Range Interpretation Comments Arterial Blood Base Excess (test code = 1925-7) 5.0 -2-3 H [facility] CenterArterial Blood Oxygen Saturation 2019-09-04 14:08:00* Test Item Value Reference Range Interpretation Comments Arterial Blood Oxygen Saturation (test code = 2708-6) 74.0 95-98 L [facility] CenterFiO22020-02-20 14:08:00* Test Item Value Reference Range Interpretation Comments FiO2 (test code = FiO2) 32 2L N/C, RIGHT RADIAL, VENOUS BLOOD GASO[facility] Center Creatine Kinase [id number] 13:44:00* Test Item Value Reference Range Interpretation Comments Creatine Kinase MB (test code = 17064-3) 16.80 0-5.0 H [facility] CenterTroponin Z1694-12-44 13:44:00* Test Item Value Reference Range Interpretation Comments Troponin I (test code = HYM8579) 0.091 0-0.300 [facility] Pfloy6742-96-00 13:29:00* Test Item Value Reference Range Interpretation Comments Sodium Level (test code = 2951-2) 131 136-145 L [facility] CenterPotassium Ruhdj0304-50-97 13:29:00* Test Item Value Reference Range Interpretation Comments Potassium Level (test code = 2823-3) 4.2 3.5-5.1 [facility] CenterChloride Kwtbc8596-04-77 13:29:00* Test Item Value Reference Range Interpretation Comments Chloride Level (test code = 2075-0) 95 98-107 L [facility] CenterCarbon Dioxide Mgxux0730-52-53 13:29:00* Test Item Value Reference Range Interpretation Comments Carbon Dioxide Level (test code = 2028-9) 24 22-29 [facility] CenterAnion Dzn4659-70-80 13:29:00* Test Item Value Reference Range Interpretation Comments Anion Gap (test code = 38695-7) 16.2 8-16 H [facility] CenterBlood Urea Lmnpuubw7616-84-12 13:29:00* Test Item Value Reference Range Interpretation Comments Blood Urea Nitrogen (test code = 3094-0) 31 7-26 H [facility] CenterCreatinine2020-02-20 13:29:00* Test Item Value Reference Range Interpretation Comments Creatinine (test code = 2160-0) 6.86 0.57-1.11 H [facility] CenterBUN/Creatinine Iakgo7264-77-20 13:29:00* Test Item Value Reference Range Interpretation Comments BUN/Creatinine Ratio (test code = 3097-3) 5 6-25 L [facility] CenterEstimat Glomerular Filtration Rate 2019-09-04 13:29:00* Test Item Value Reference Range Interpretation Comments Estimat Glomerular Filtration Rate (test code = 089146193) 7 >60 L Ranges were taken from the National Kidney Disease Education Program and the [facility]ney Foundation literature.Reference ranges:60 or greater: Rwlnms84-94 ( for 3 consecutive months): Chronic kidney disease 15 or less: Kidney failureOakBend Medical CenterGlucose Hhcwb1016-65-20 13:29:00* Test Item Value Reference Range Interpretation Comments Glucose Level (test code = YBN1362) 157 74-118 H [facility] CenterCalcium Vdhib0636-95-90 13:29:00* Test Item Value Reference Range Interpretation Comments Calcium Level (test code = 48251-3) 10.6 8.4-10.2 H [facility] CenterTotal Jyzxzpeyq6999-72-03 13:29:00* Test Item Value Reference Range Interpretation Comments Total Bilirubin (test code = 1975-2) 0.3 0.2-1.2 [facility] CenterAspartate Amino Transf (AST/SGOT) 2019-09-04 13:29:00* Test Item Value Reference Range Interpretation Comments Aspartate Amino Transf (AST/SGOT) (test code = Aspartate Amino Transf (AST/SGOT)) 17 5-34 [facility] CenterAlanine Aminotransferase (ALT/SGPT) 2019-09-04 13:29:00* Test Item Value Reference Range Interpretation Comments Alanine Aminotransferase (ALT/SGPT) (test code = 1742-6) 9 0-55 [facility] CenterTotal Qfkuthi5626-57-52 13:29:00* Test Item Value Reference Range Interpretation Comments Total Protein (test code = 2885-2) 7.9 6.5-8.1 [facility] CenterAlbumin2020-02-20 13:29:00* Test Item Value Reference Range Interpretation Comments Albumin (test code = 1751-7) 2.9 3.5-5.0 L [facility] CenterGlobulin2020-02-20 13:29:00* Test Item Value Reference Range Interpretation Comments Globulin (test code = 34847-3) 5.0 2.3-3.5 H [facility] CenterAlbumin/Globulin Kgaev4352-38-83 13:29:00 * Test Item Value Reference Range Interpretation Comments Albumin/Globulin Ratio (test code = 1759-0) 0.6 0.8-2.0 L [facility] CenterAlkaline Tdfrtczjqrh5757-57-68 13:29:00* Test Item Value Reference Range Interpretation Comments Alkaline Phosphatase (test code = 6768-6) 106 40-150 [facility] CenterCreatine Exlydw1731-94-00 13:29:00* Test Item Value Reference Range Interpretation Comments Creatine Kinase (test code = 2157-6) 337 29-168 H [facility] CenterProthrombin Kicm1599-60-00 13:18:00* Test Item Value Reference Range Interpretation Comments Prothrombin Time (test code = 5902-2) 13.6 11.9-14.5 [facility] CenterProthromb Time International Ratio 2019-09-04 13:18:00* Test Item Value Reference Range Interpretation Comments Prothromb Time International Ratio (test code = 6301-6) 0.98 Oral Anticoagulant Therapy INR Values:1. Low Intensity Therapy 1.5 - 2.02 . Moderate Intensity Therapy 2.0 - 3.03. High Intensity Therapy(1) 2.5 - 3. 54. High Intensity Therapy(2) 3.0 - 4.05. Panic Value INR > 5.0 [facility] CenterActivated Partial Thromboplast Time 2019-09-04 13:18:00* Test Item Value Reference Range Interpretation Comments Activated Partial Thromboplast Time (test code = 73705-9) 33.7 23.8-35.5 [facility] CenterCT LUMBAR SPINE IE9406-14-04 13:02:00 [facility] [address] [address] Patient Name: ANGELA JEFFERS MR #: [id number] : 1945 Age/Sex: 74/F Req #: [id number] Adm Physician: Ordered by: KODY COLE ELECTRICAL CONSTRUCTION PROJECT MANAGER Report #: [id number] Location: ER Room/Bed: Procedure: [id number] CT/CT LUMBAR SPINE WO Exam Date: 09/04/19 [...] 1:08 PM Dictated By: SANDY GOMEZ MD 130 T ranscribed By: ARIEL on 09/04/19 1308 COPY TO: KODY COLE ELECTRICAL CONSTRUCTION PROJECT MANAGER White Blood Urwae4098-68-47 12:58:00* Test Item Value Reference Range Interpretation Comments White Blood Count (test code = 6690-2) 7.82 4.8-10.8 [facility] CenterRed Blood Fblrj1118-82-56 12:58:00* Test Item Value Reference Range Interpretation Comments Red Blood Count (test code = 789-8) 3.28 3.6-5.1 L [facility] CenterHemoglobin2020-02-20 12:58:00* Test Item Value Reference Range Interpretation Comments Hemoglobin (test code = 27787-0) 9.4 12.0-16.0 L [facility] CenterHematocrit2020-02-20 12:58:00* Test Item Value Reference Range Interpretation Comments Hematocrit (test code = 4544-3) 31.6 34.2-44.1 L [facility] CenterMean Corpuscular Pmkgqy3910-93-59 12:58:00* Test Item Value Reference Range Interpretation Comments Mean Corpuscular Volume (test code = 787-2) 96.3 81-99 [facility] Corpuscular Pwxijazdyj5900-62-23 12:58:00* Test Item Value Reference Range Interpretation Comments Mean Corpuscular Hemoglobin (test code = 785-6) 28.7 28-32 [facility] CenterMean Corpuscular Hemoglobin Concent 2019-09-04 12:58:00* Test Item Value Reference Range Interpretation Comments Mean Corpuscular Hemoglobin Concent (test code = 786-4) 29.7 31-35 L [facility] CenterRed Cell Distribution Fnmjy6271-89-89 12:58:00* Test Item Value Reference Range Interpretation Comments Red Cell Distribution Width (test code = 88477-4) 13.9 11.7 -14.4 [facility] CenterPlatelet Yzlph6333-44-08 12:58:00* Test Item Value Reference Range Interpretation Comments Platelet Count (test code = 777-3) 181 140-360 [facility] CenterNeutrophils (%) (Auto)2019-09-04 12:58:00 * Test Item Value Reference Range Interpretation Comments Neutrophils (%) (Auto) (test code = 76272-0) 75.3 38.7-80.0 [facility] CenterLymphocytes (%) (Auto)2019-09-04 12:58:00 * Test Item Value Reference Range Interpretation Comments Lymphocytes (%) (Auto) (test code = 736-9) 12.4 18.0-39.1 L [facility] CenterMonocytes (%) (Auto)2019-09-04 12:58:00* Test Item Value Reference Range Interpretation Comments Monocytes (%) (Auto) (test code = 5905-5) 10.7 4.4-11.3 [facility] CenterEosinophils (%) (Auto)2019-09-04 12:58:00 * Test Item Value Reference Range Interpretation Comments Eosinophils (%) (Auto) (test code = 713-8) 1.2 0.0-6.0 [facility] CenterBasophils (%) (Auto)2019-09-04 12:58:00* Test Item Value Reference Range Interpretation Comments Basophils (%) (Auto) (test code = 706-2) 0.3 0.0-1.0 [facility] CenterIM GRANULOCYTES %2019-09-04 12:58:00* Test Item Value Reference Range Interpretation Comments IM GRANULOCYTES % (test code = IM GRANULOCYTES %) 0.1 0.0- 1.0 [facility] CenterNeutrophils # (Auto)2019-09-04 12:58:00* Test Item Value Reference Range Interpretation Comments Neutrophils # (Auto) (test code = 751-8) 5.9 2.1-6.9 [facility] CenterLymphocytes # (Auto)2019-09-04 12:58:00* Test Item Value Reference Range Interpretation Comments Lymphocytes # (Auto) (test code = 96329-0) 1.0 1.0-3.2 [facility] CenterMonocytes # (Auto)2019-09-04 12:58:00* Test Item Value Reference Range Interpretation Comments Monocytes # (Auto) (test code = 742-7) 0.8 0.2-0.8 [facility] CenterEosinophils # (Auto)2019-09-04 12:58:00* Test Item Value Reference Range Interpretation Comments Eosinophils # (Auto) (test code = 711-2) 0.1 0.0-0.4 [facility] CenterBasophils # (Auto)2019-09-04 12:58:00* Test Item Value Reference Range Interpretation Comments Basophils # (Auto) (test code = 704-7) 0.0 0.0-0.1 [facility] CenterAbsolute Immature Granulocyte (auto 2019-09-04 12:58:00* Test Item Value Reference Range Interpretation Comments Absolute Immature Granulocyte (auto (toby t code = Absolute Immature Granulocyte (auto) 0.01 0-0.1 [facility] CenterCT MAXIO FAC/PARANAS XJ8622-48-67 12:58:[address] [place] [address] Patient Name: ANGELA JEFFERS MR #: [id number] : 1945 Age/Sex: 74/F Req #: [id number] Adm Physician: Ordered by: KODY ALEMAN DO Report #: [id number] Location: ER Room/Bed: Procedure: CT/ CT MAXIO FAC/PARANAS WO Exam Date: [...] 1:01 PM Dictated By: SANDY GOMEZ MD 1301 Transcribed By: ARIEL on 09/04/19 1301 COPY TO: KODY ALEMAN DO CT CERVICAL SPINE CO6311-05-44 12:55:00 [place] [address] Patient Name: ANGELA JEFFERS MR #: [id number] : 1945 Age/Sex: 74/F Req #: [id number] Adm Physician: Ordered by: KODY COLE ELECTRICAL CONSTRUCTION PROJECT MANAGER Report #: [id number] Location: ER Room/Bed: Procedure: [id number] CT/CT CERVICAL SPINE WO Exam Date: 09/04/19 [...] on 0 1257 COPY TO: KODY COLE ELECTRICAL CONSTRUCTION PROJECT MANAGER CT BRAIN KE2712-12-82 12:51:00 [place] [address] Patient Name: ANGELA JEFFERS MR #: [id number] : 1945 Age/Sex: 74/F Req #: [id number] Adm Physician: Ordered by: KODY COLE ELECTRICAL CONSTRUCTION PROJECT MANAGER Report #: [id number] Location: ER Room/Bed: Procedure: [id number] CT/CT BRAIN WO Exam Date: 09/04/19 Exam [...] 12:54 PM Dictated By: SANDY GOMEZ MD 1254 Transcribed By: ARIEL on 09/04/19 1254 COPY TO: KODY COLE NP Bedside Bmvkpur0364-18-85 12:46:00* Test Item Value Reference Range Interpretation Comments Bedside Glucose (test code = 84232-3) 164 70-120 H Meter ID: [id number] [facility] 2019-09-04 12:46:00* Test Item Value Reference Range Interpretation Comments Bedside Glucose (test code = 89118-7) 164 70-120 H Meter ID: [id number] [facility]CT PELVIS WO 2019-09-04 12:37:00 [facility] [address] [address] Patient Name: ANGELA JEFFERS MR #: [id number] : 1945 Age/Sex: 74/F Req #: [id number] Adm Physician: Ordered by: KODY COLE ELECTRICAL CONSTRUCTION PROJECT MANAGER Report #: [id number] Location: ER Room/Bed: Procedure: [id number] CT/CT PELVIS WO Exam Date: 09/04/19 Exam [...] Signed By: PETRA REYNOSO MD on 09/04/19 124 Transcribed By: LIEN ALEMAN on 09/04/19 1241 COPY TO: KODY COLE ELECTRICAL CONSTRUCTION PROJECT MANAGER Arterial blood pH pqkukhnoptq7888-69-15 12:10:00* Test Item Value Reference Range Interpretation Comments Arterial Blood pH (test code = 2744-1) 7.31 7.31-7.41 [facility] SrlA1808-95-35 12:10:00* Test Item Value Reference Range Interpretation Comments Arterial Blood Partial Pressure CO2 (test code = 2019-02) 63 41-51 [address]A2020-02-20 12:10:00* Test Item Value Reference Range Interpretation Comments Arterial Blood Partial Pressure O2 (test code = 2019-02) 44 80-105 Results called/hand delivered to [] at 1402 on 09/04/19 by Larry Pastor. [place] .[facility] CenterArterial blood bicarbonate measurement (moles/volume)2019-09-04 12:10:00* Test Item Value Reference Range Interpretation Comments Arterial Blood HCO3 (test code = 1960-4) 31 23-28 [facility] CenterArterial blood base excess by calculation 2019-09-04 12:10:00* Test Item Value Reference Range Interpretation Comments Arterial Blood Base Excess (test code = 1925-7) 5.0 -2-3 [facility] CenterArterial blood oxygen saturation hgqovfbwiwi7977-25-02 12:10:00* Test Item Value Reference Range Interpretation Comments Arterial Blood Oxygen Saturation (test code = 2708-6) 74.0 95-98 [facility] CenterFluoroscopic procedure less than one hour opmtunjs8638-44-27 12:10:00* Test Item Value Reference Range Interpretation Comments FiO2 (test code = FiO2) 32 2L N/C, RIGHT RADIAL, VENOUS BLOOD GASOakBend Medical Center Capillary blood glucose measurement by glucometer (mass/volume)2019-09-04 11:39:00* Test Item Value Reference Range Interpretation Comments Bedside Glucose (test code = 27618-9) 164 70-120 Meter ID: [id number] Medical CenterPOCT-GLUCOSE METER 2019-09-03 17:39:00* Test Item Value Reference Range Interpretation Comments POC-GLUCOSE METER (BEAKER) (test code = 1538) 171 mg/dL 70-110 H : TESTED AT [address], [address]: Cooker Casing/Catheter Finisher And Inspector ID = [id number] for Bianka Trevizo POCT-GLUCOSE [id number] 11:46:00* Test Item Value Reference Range Interpretation Comments POC-GLUCOSE METER (BEAKER) (test code = 1538) 154 mg/dL 70-110 H : TESTED AT [address], [address]: Cooker Casing/Catheter Finisher And Inspector ID = [id number] for Bianka Trevizo POCT-GLUCOSE [id number] 07:50:00* Test Item Value Reference Range Interpretation Comments POC-GLUCOSE METER (BEAKER) (test code = 1538) 148 mg/dL 70-110 H : TESTED AT [address], [address]: Cooker Casing/Catheter Finisher And Inspector ID = [id number] for Bianka Trevizo BASIC METABOLIC [id number] 07:11:00* Test Item Value Reference Range Interpretation [...] GFR IS NOT APPLICABLE FOR DIALYSIS PATIENTS. Cooker Casing ID - CURT MPOCT-GLUCOSE [id number] 20:42:00* Test Item Value Reference Range Interpretation Comments POC-GLUCOSE METER (BEAKER) (test code = 1538) 164 mg/dL 70-110 H : TESTED AT [address], [address]: Cooker Casing/Catheter Finisher And Inspector ID = [id number] for WASHINGTON HALL POCT-GLUCOSE [id number] 18:31:00* Test Item Value Reference Range Interpretation Comments POC-GLUCOSE METER (BEAKER) (test code = 1538) 148 mg/dL 70-110 H : TESTED AT [address], [address]: Cooker Casing/Catheter Finisher And Inspector ID = [id number] for GALLEGOS, TED POCT-GLUCOSE [id number] 18:24:00* Test Item Value Reference Range Interpretation Comments POC-GLUCOSE METER (BEAKER) (test code = 1538) 106 mg/dL 70-110 : TESTED AT [address], [address]: Cooker Casing/Catheter Finisher And Inspector ID = [id number] for GALLEGOS, TED HEMODIALYSIS [id number] 17:42:00Kathia Blankenship RN 09/02/2019 5:43 PMLab Results [...] Patient stable post treatment. Endorsed to nurse. [facility] METABOLIC [id number] 13:46:00* Test Item Value Reference Range Interpretation [...] GFR IS NOT APPLICABLE FOR DIALYSIS PATIENTS. Cooker Casing ID - CECE MPOCT-GLUCOSE [id number] 11:21:00* Test Item Value Reference Range Interpretation Comments POC-GLUCOSE METER (BEAKER) (test code = 1538) 114 mg/dL 70-110 H : TESTED AT [address], [address]: Cooker Casing/Catheter Finisher And Inspector ID = [id number] for GALLEGOS, TED POCT-GLUCOSE [id number] 00:25:00* Test Item Value Reference Range Interpretation Comments POC-GLUCOSE METER (BEAKER) (test code = 1538) 89 mg/dL 70-110 : TESTED AT [address], [address]: Cooker Casing/Catheter Finisher And Inspector ID = [id number] for LAURO GUTIERREZ POCT-GLUCOSE [id number] 23:29:00* Test Item Value Reference Range Interpretation Comments POC-GLUCOSE METER (BEAKER) (test code = 1538) 88 mg/dL 70-110 : TESTED AT [address], [address]: Cooker Casing/Catheter Finisher And Inspector ID = [id number] for GALLEGOS, TED POCT-GLUCOSE [id number] 23:28:00* Test Item Value Reference Range Interpretation Comments POC-GLUCOSE METER (BEAKER) (test code = 1538) 126 mg/dL 70-110 H : TESTED AT [address], [address]: Cooker Casing/Catheter Finisher And Inspector ID = [id number] for GALLEGOS, TED POCT-GLUCOSE [id number] 23:28:00* Test Item Value Reference Range Interpretation Comments POC-GLUCOSE METER (BEAKER) (test code = 1538) 92 mg/dL 70-110 : TESTED AT [address], [address]: Cooker Casing/Catheter Finisher And Inspector ID = [id number] for GALLEGOS, TED POCT-GLUCOSE [id number] 23:28:00* Test Item Value Reference Range Interpretation Comments POC-GLUCOSE METER (BEAKER) (test code = 1538) 120 mg/dL 70-110 H : TESTED AT [address], [address]: Cooker Casing/Catheter Finisher And Inspector ID = [id number] for LUISCHEIKH POCT-GLUCOSE [id number] 21:53:00* Test Item Value Reference Range Interpretation Comments POC-GLUCOSE METER (BEAKER) (test code = 1538) 84 mg/dL 70-110 : TESTED AT [address], [address]: Cooker Casing/Catheter Finisher And Inspector ID = [id number] for GUTIERREZ, LAURO POCT-GLUCOSE [id number] 21:37:00* Test Item Value Reference Range Interpretation Comments POC-GLUCOSE METER (BEAKER) (test code = 1538) 51 mg/dL 70-110 L : TESTED AT [address], [address]: Cooker Casing/Catheter Finisher And Inspector ID = [id number] for GUTIERREZ, LAURO POCT-GLUCOSE [id number] 21:37:00* Test Item Value Reference Range Interpretation Comments POC-GLUCOSE METER (BEAKER) (test code = 1538) 42 mg/dL 70-110 L : TESTED AT [address], [address]: Cooker Casing/Catheter Finisher And Inspector ID = [id number] for Bianka Trevizo POCT-GLUCOSE [id number] 21:36:00* Test Item Value Reference Range Interpretation Comments POC-GLUCOSE METER (BEAKER) (test code = 1538) 45 mg/dL 70-110 L : TESTED AT [address], [address]: Cooker Casing/Catheter Finisher And Inspector ID = [id number] for TrevizoCristela arceofer POCT-GLUCOSE [id number] 21:36:00* Test Item Value Reference Range Interpretation Comments POC-GLUCOSE METER (BEAKER) (test code = 1538) 51 mg/dL 70-110 L : TESTED AT [address], [address]: Cooker Casing/Catheter Finisher And Inspector ID = [id number] for TrevizoCristela arceofer POCT-GLUCOSE [id number] 12:18:00* Test Item Value Reference Range Interpretation Comments POC-GLUCOSE METER (BEAKER) (test code = 1538) 117 mg/dL 70-110 H : TESTED AT [address], [address]: Cooker Casing/Catheter Finisher And Inspector ID = [id number] for TrevizoCristelaBianka POCT-GLUCOSE [id number] 07:37:00* Test Item Value Reference Range Interpretation Comments POC-GLUCOSE METER (BEAKER) (test code = 1538) 95 mg/dL 70-110 : TESTED AT [address], [address]: Cooker Casing/Catheter Finisher And Inspector ID = [id number] for TrevizoCristela arceofer POCT-GLUCOSE [id number] 22:18:00* Test Item Value Reference Range Interpretation Comments POC-GLUCOSE METER (BEAKER) (test code = 1538) 82 mg/dL 70-110 : TESTED AT [address], [address]: Cooker Casing/Catheter Finisher And Inspector ID = [id number] for ISABEL WASHINGTON POCT-GLUCOSE [id number] 04:39:00* Test Item Value Reference Range Interpretation Comments POC-GLUCOSE METER (BEAKER) (test code = 1538) 78 mg/dL 70-110 : TESTED AT [address], [address]: Cooker Casing/Catheter Finisher And Inspector ID = [id number] for ISABEL WASHINGTON POCT-GLUCOSE [id number] 22:08:00* Test Item Value Reference Range Interpretation Comments POC-GLUCOSE METER (BEAKER) (test code = 1538) 88 mg/dL 70-110 : TESTED AT [address] [place], [address]: Cooker Casing/Catheter Finisher And Inspector ID = [id number] for [place] HALL POCT-GLUCOSE [id number] 13:52:00* Test Item Value Reference Range Interpretation Comments POC-GLUCOSE METER (BEAKER) (test code = 1538) 89 mg/dL 70-110 : TESTED AT [place] [address] [facility], [address]: Cooker Casing/Catheter Finisher And Inspector ID = [id number] for KACI AMADOR HEMODIALYSIS [id number] 11:55:00Alyson Stoddard RN 08/30/2019 1:05 PM Procedure [...] 75 Resp: 14 Temp: SpO2: 100% [facility] [id number] 07:47:00* Test Item Value Reference Range Interpretation Comments POC-GLUCOSE METER (BEAKER) (test code = 1538) 132 mg/dL 70-110 H : TESTED AT [place] [address] [facility], [address]: Cooker Casing/Catheter Finisher And Inspector ID = [id number] for TED GALLEGOS [id number] 07:41:00* Test Item Value Reference Range Interpretation Comments FERRITIN (BEAKER) (test code = 361) 944 ng/mL 5-275 H Cooker Casing ID - NTPIRON, TIBC, % SAT. (WITHOUT FERRITIN)2019-08-30 07:20:00* Test Item Value Reference Range Interpretation Comments IRON (BEAKER) (test code = 547) 52.0 ug/dL 40.0-160.0 TOTAL IRON BINDING CAPACITY (BEAKER) (test code = 769) 130 ug/dL 250-450 L IRON % SATURATION (2) (BEAKER) (test code = 2590) 40 % 20-5 5 Cooker Casing SHERMAN ELIAS MBASIC METABOLIC [id number] 06:35:00* Test Item Value Reference Range Interpretation [...] GFR IS NOT APPLICABLE FOR DIALYSIS PATIENTS. Cooker Casing ID Alfredo ELIAS [id number] 06:32:00* Test Item Value Reference Range Interpretation Comments PHOSPHORUS (BEAKER) (test code = 604) 4.3 mg/dL 2.3-4.7 Specimen slightly hemolyzed Cooker Casing SHERMAN ELIAS MCBC W/PLT COUNT & AUTO [id number] 05:37:00* Test Item Value Reference Range Interpretation [...] code = 2801) 0 % 0-1 POCT-GLUCOSE [id number] 22:36:00* Test Item Value Reference Range Interpretation Comments POC-GLUCOSE METER (BEAKER) (test code = 1538) 150 mg/dL 70-110 H : TESTED AT [address], [address]: Cooker Casing/Catheter Finisher And Inspector ID = [id number] for W[place] HALL POCT-GLUCOSE [id number] 15:29:00* Test Item Value Reference Range Interpretation Comments POC-GLUCOSE METER (BEAKER) (test code = 1538) 123 mg/dL 70-110 H : TESTED AT [facility] [address] [facility], [address]: Cooker Casing/Catheter Finisher And Inspector ID = [id number] for ELANA LYNN Potassium-Stat Ajn5958-30-11 13:26:00* Test Item Value Reference Range Interpretation Comments Potassium (test code = 2823-3) 3.1 meq/L 3.6-5.5 L Lab Interpretation (test code = 39235-4) Abnormal [facility] [id number] 13:26:00* Test Item Value Reference Range Interpretation Comments POTASSIUM (BEAKER) (test code = 379) 3.1 meq/L 3.6-5.5 L BASIC METABOLIC [id number] 12:22:00* Test Item Value Reference Range Interpretation [...] GFR IS NOT APPLICABLE FOR DIALYSIS PATIENTS. Cooker Casing ID - KAVITA WPOCT-GLUCOSE [id number] 10:37:00* Test Item Value Reference Range Interpretation Comments POC-GLUCOSE METER (BEAKER) (test code = 1538) 150 mg/dL 70-110 H : TESTED AT [address], [address]: Cooker Casing/Catheter Finisher And Inspector ID = [id number] for DAVE WRIGHT POC-Hemoglobin ewzyv2419-19-12 10:27:00* Test Item Value Reference Range Interpretation Comments POC-Hemoglobin Meter (test code = 1539) 10.4 g/dL 12-15 L TESTED AT [address] [address] Lab Interpretation (test code = 72610-3) Abnormal [facility] [id number] 10:27:00* Test Item Value Reference Range Interpretation Comments POC-HEMOGLOBIN METER (BEAKER) (test code = 1539) 10.4 g/dL 12.0- 15.0 L TESTED AT [address] [address] Hepatitis B Surface Dxgukwr5307-72-73 17:23:00* Test Item Value Reference Range Interpretation Comments Hepatitis B Surface Antigen (test code = 5196-1) Negative Negat jinny Performed at: [address] [id number] Director: Ronald Arcos MD, Phone: [phone] Medical CenterHepatitis B Surface Fwjqqkp9317-81-90 17:23:00* Test Item Value Reference Range Interpretation Comments Hepatitis B Surface Antigen (test code = 5196-1) Negative Negat jinny Performed at: [address] [id number] Director: Ronald Arcos MD, Phone: [phone] Medical CenterC-Reactive Cznbdsg5320-29-73 17:22:00* Test Item Value Reference Range Interpretation Comments C-Reactive Protein (test code = 1987-) 54 0-10 H Performed at: [address] [id number] Director: Ronald Arcos MD, Phone: [phone] Medical CenterC-Reactive Rycrfbt0533-62-03 17:22:00* Test Item Value Reference Range Interpretation Comments C-Reactive Protein (test code = 1987-5) 54 0-10 H Performed at: HD [address] [id number] Director: Ronald Arcos MD, Phone: [phone] Medical CenterBedside Hsspzxx3724-99-69 11:18:00* Test Item Value Reference Range Interpretation Comments Bedside Glucose (test code = 31363-5) 181 70-120 H Meter ID: [id number] [facility] Hospital Be Antigen 2019-08-26 10:26:00* Test Item Value Reference Range Interpretation Comments Hepatitis Be Antigen (test code = 82254-8) Negative Negative [facility] B Core Total Twjpfnrx3260-80-53 10:26:00* Test Item Value Reference Range Interpretation Comments Hepatitis B Core Total Antibody (test code = 72858-3) Negative Negative [facility] B Core IgM Kfclspex0525-97-18 10:26:00* Test Item Value Reference Range Interpretation Comments Hepatitis B Core IgM Antibody (test code = 20116-4) Negative Ne gative Performed at: [address] [id number] Director: Ronald Arcos MD, Phone: [phone] Memorial Hospital Be Ffzwctu3594-22-80 10:26:00* Test Item Value Reference Range Interpretation Comments Hepatitis Be Antigen (test code = 51936-4) Negative Negative [facility] B Core Total Lxcnxyek9575-07-14 10:26:00* Test Item Value Reference Range Interpretation Comments Hepatitis B Core Total Antibody (test code = 69043-4) Negative Negative [facility] B Core IgM Nhoioyvd1576-30-07 10:26:00* Test Item Value Reference Range Interpretation Comments Hepatitis B Core IgM Antibody (test code = 77409-4) Negative Ne gative Performed at: [address] [id number] Director: Ronald Arcos MD, Phone: [phone] Memorial Hospital Be Lmidrxy9840-87-74 10:26:00* Test Item Value Reference Range Interpretation Comments Hepatitis Be Antigen (test code = 98390-9) Negative Negative [facility] CenterHepatistarr regional medical center B Core Total Kgszqggy2930-20-09 10:26:00* Test Item Value Reference Range Interpretation Comments Hepatitis B Core Total Antibody (test code = 23554-9) Negative Negative [facility] B Core IgM Kxitdcwm6446-21-30 10:26:00* Test Item Value Reference Range Interpretation Comments Hepatitis B Core IgM Antibody (test code = 28162-7) Negative Ne gative Performed at: - [address] [id number] Director: Ronald Arcos MD, Phone: [phone] Regional Hospitalerum or plasma C reactive protein measurement (mass/volume)2019-08-26 03:45:00* Test Item Value Reference Range Interpretation Comments C-Reactive Protein (test code = 1988-5) 54 0-10 Performed at: - [address] [id number] Director: Ronald Arcos MD, Phone: [phone] Medical CenterCT ABDOMEN/PELVIS [id number] 23:20:00 [place] [address] Patient Name: ANGELA JEFFERS MR #: [id number] : 1945 Age/Sex: 74/F Req #: [id number] Adm Physician: CHERLELE VELASQUEZ MD Ordered by: FABIAN CARDOZO ELECTRICAL CONSTRUCTION PROJECT MANAGER Report #: [id number] Location: MED/SURG2 Room/Bed: [facility] Procedure: [id number] CT/CT ABDOMEN/PELVIS WO Exam Date: 08/24/19 Exam [...] distention to suggest obstruction. PELVIC ORGANS/BLADDER: The [place]aguy[place] ame is absent. LYMPH NODES: No lymphadenopathy. [...] ARIEL on 08/25/19211 COPY TO: FABIAN CARDOZO KATHY White Blood Rwkln7365-71-24 07:50:00* Test Item Value Reference Range Interpretation Comments White Blood Count (test code = 6690-2) 5.39 4.8-10.8 [facility] CenterRed Blood Xjxgl0952-55-64 07:50:00* Test Item Value Reference Range Interpretation Comments Red Blood Count (test code = 789-8) 3.87 3.6-5.1 [facility] CenterHemoglobin2020-02-09 07:50:00* Test Item Value Reference Range Interpretation Comments Hemoglobin (test code = 42023-2) 11.4 12.0-16.0 L [facility] CenterHematocrit2020-02-09 07:50:00* Test Item Value Reference Range Interpretation Comments Hematocrit (test code = 4544-3) 35.2 34.2-44.1 [facility] CenterMean Corpuscular Ptnpzm8143-57-82 07:50:00* Test Item Value Reference Range Interpretation Comments Mean Corpuscular Volume (test code = 787-2) 91.0 81-99 [facility] CenterMean Corpuscular Mfitmvykwq4043-34-97 07:50:00* Test Item Value Reference Range Interpretation Comments Mean Corpuscular Hemoglobin (test code = 785-6) 29.5 28-32 [facility] CenterMean Corpuscular Hemoglobin Concent 2019-08-24 07:50:00* Test Item Value Reference Range Interpretation Comments Mean Corpuscular Hemoglobin Concent (test code = 786-4) 32.4 31-35 [facility] CenterRed Cell Distribution Pipxn7069-92-36 07:50:00* Test Item Value Reference Range Interpretation Comments Red Cell Distribution Width (test code = 13977-9) 14.5 11.7 -14.4 H [facility] CenterPlatelet Tnzfk6064-35-49 07:50:00* Test Item Value Reference Range Interpretation Comments Platelet Count (test code = 777-3) 154 140-360 [facility] CenterNeutrophils (%) (Auto)2019-08-24 07:50:00 * Test Item Value Reference Range Interpretation Comments Neutrophils (%) (Auto) (test code = 63612-4) 69.0 38.7-80.0 [facility] CenterLymphocytes (%) (Auto)2019-08-24 07:50:00 * Test Item Value Reference Range Interpretation Comments Lymphocytes (%) (Auto) (test code = 736-9) 15.6 18.0-39.1 L [facility] CenterMonocytes (%) (Auto)2019-08-24 07:50:00* Test Item Value Reference Range Interpretation Comments Monocytes (%) (Auto) (test code = 5905-5) 12.4 4.4-11.3 H [facility] CenterEosinophils (%) (Auto)2019-08-24 07:50:00 * Test Item Value Reference Range Interpretation Comments Eosinophils (%) (Auto) (test code = 713-8) 2.0 0.0-6.0 [facility] CenterBasophils (%) (Auto)2019-08-24 07:50:00* Test Item Value Reference Range Interpretation Comments Basophils (%) (Auto) (test code = 706-2) 0.4 0.0-1.0 [facility] CenterIM GRANULOCYTES %2019-08-24 07:50:00* Test Item Value Reference Range Interpretation Comments IM GRANULOCYTES % (test code = IM GRANULOCYTES %) 0.6 0.0- 1.0 [facility] CenterNeutrophils # (Auto)2019-08-24 07:50:00* Test Item Value Reference Range Interpretation Comments Neutrophils # (Auto) (test code = 751-8) 3.7 2.1-6.9 [facility] CenterLymphocytes # (Auto)2019-08-24 07:50:00* Test Item Value Reference Range Interpretation Comments Lymphocytes # (Auto) (test code = 51828-5) 0.8 1.0-3.2 L [facility] CenterMonocytes # (Auto)2019-08-24 07:50:00* Test Item Value Reference Range Interpretation Comments Monocytes # (Auto) (test code = 742-7) 0.7 0.2-0.8 [facility] CenterEosinophils # (Auto)2019-08-24 07:50:00* Test Item Value Reference Range Interpretation Comments Eosinophils # (Auto) (test code = 711-2) 0.1 0.0-0.4 [facility] CenterBasophils # (Auto)2019-08-24 07:50:00* Test Item Value Reference Range Interpretation Comments Basophils # (Auto) (test code = 704-7) 0.0 0.0-0.1 [facility] CenterAbsolute Immature Granulocyte (auto 2019-08-24 07:50:00* Test Item Value Reference Range Interpretation Comments Absolute Immature Granulocyte (auto (toby t code = Absolute Immature Granulocyte (auto) 0.03 0-0.1 [facility] Qqtzw1289-65-73 07:07:00* Test Item Value Reference Range Interpretation Comments Sodium Level (test code = 2951-2) 136 136-145 [facility] CenterPotassium Axldx9006-68-40 07:07:00* Test Item Value Reference Range Interpretation Comments Potassium Level (test code = 2823-3) 3.9 3.5-5.1 [facility] CenterChloride Grxfs1857-97-44 07:07:00* Test Item Value Reference Range Interpretation Comments Chloride Level (test code = 2075-0) 95 98-107 L [facility] CenterCarbon Dioxide Iyncl2952-07-71 07:07:00* Test Item Value Reference Range Interpretation Comments Carbon Dioxide Level (test code = 2028-9) 24 22-29 [facility] CenterAnion Bxe1239-65-83 07:07:00* Test Item Value Reference Range Interpretation Comments Anion Gap (test code = 59057-8) 20.9 8-16 H [facility] CenterBlood Urea Hcgxylet3937-45-71 07:07:00* Test Item Value Reference Range Interpretation Comments Blood Urea Nitrogen (test code = 3094-0) 49 7-26 H [facility] CenterCreatinine2020-02-09 07:07:00* Test Item Value Reference Range Interpretation Comments Creatinine (test code = 2160-0) 7.90 0.57-1.11 H [facility] CenterBUN/Creatinine Chqto9030-77-56 07:07:00* Test Item Value Reference Range Interpretation Comments BUN/Creatinine Ratio (test code = 3097-3) 6 6-25 [facility] CenterEstimat Glomerular Filtration Rate 2019-08-24 07:07:00* Test Item Value Reference Range Interpretation Comments Estimat Glomerular Filtration Rate (test code = 427616057) 6 >60 L Ranges were taken from the National Kidney Disease Education Program and the [facility] Kidney Foundation literature.Reference ranges:60 or greater: Mvgvih42-53 ( for 3 consecutive months): Chronic kidney disease 15 or less: Kidney failureOakBend Medical CenterGlucose Taybz9058-35-42 07:07:00* Test Item Value Reference Range Interpretation Comments Glucose Level (test code = RUH4217) 154 74-118 H [facility] CenterCalcium Awtkr1161-07-45 07:07:00* Test Item Value Reference Range Interpretation Comments Calcium Level (test code = 16879-8) 7.8 8.4-10.2 L [facility] CenterTotal Tadreldjr8122-45-89 07:07:00* Test Item Value Reference Range Interpretation Comments Total Bilirubin (test code = 1975-2) 0.6 0.2-1.2 [facility] CenterAspartate Amino Transf (AST/SGOT) 2019-08-24 07:07:00* Test Item Value Reference Range Interpretation Comments Aspartate Amino Transf (AST/SGOT) (test code = Aspartate Amino Transf (AST/SGOT)) 11 5-34 [facility] CenterAlanine Aminotransferase (ALT/SGPT) 2019-08-24 07:07:00* Test Item Value Reference Range Interpretation Comments Alanine Aminotransferase (ALT/SGPT) (test code = 1742-6) 6 0-55 [facility] CenterTotal Gimkuhm3507-70-77 07:07:00* Test Item Value Reference Range Interpretation Comments Total Protein (test code = 2885-2) 7.6 6.5-8.1 [facility] CenterAlbumin2020-02-09 07:07:00* Test Item Value Reference Range Interpretation Comments Albumin (test code = 1751-7) 2.8 3.5-5.0 L [facility] CenterGlobulin2020-02-09 07:07:00* Test Item Value Reference Range Interpretation Comments Globulin (test code = 56589-1) 4.8 2.3-3.5 H [facility] CenterAlbumin/Globulin Jpipe8770-53-19 07:07:00 * Test Item Value Reference Range Interpretation Comments Albumin/Globulin Ratio (test code = 1759-0) 0.6 0.8-2.0 L [facility] CenterAlkaline Ratfyslshjm0186-05-68 07:07:00* Test Item Value Reference Range Interpretation Comments Alkaline Phosphatase (test code = 6768-6) 88 40-150 [facility] CenterCreatine Kinase UL6060-33-83 15:29:00* Test Item Value Reference Range Interpretation Comments Creatine Kinase MB (test code = 43518-2) 5.90 0-5.0 H [facility] CenterTroponin S7261-19-52 15:29:00* Test Item Value Reference Range Interpretation Comments Troponin I (test code = LBA3513) 0.048 0-0.300 [facility] CenterCreatine Jqcpab8446-67-53 15:19:00* Test Item Value Reference Range Interpretation Comments Creatine Kinase (test code = 2157-6) 147 29-168 [facility] Hospitalerum hepatitis B virus e antigen detection by enzyme yiflvqzstgt9631-98-77 15:00:00* Test Item Value Reference Range Interpretation Comments Hepatitis Be Antigen (test code = 21305-0) Negative Negative [facility] Hospitalerum or plasma hepatitis B virus core antibody detection by unjcridogaq0440-49-20 15:00:00* Test Item Value Reference Range Interpretation Comments Hepatitis B Core Total Antibody (test code = 44096-1) Negative Negative [facility] Hospitalerum or plasma hepatitis B virus core IgM antibody detection by pxetqumjgzt3041-60-22 15:00:00* Test Item Value Reference Range Interpretation Comments Hepatitis B Core IgM Antibody (test code = 42348-7) Negative Ne gative Performed at: [facility] Lab[address] [id number] Director: Ronald Arcos MD, Phone: [phone] Medical CenterB-Type Natriuretic Okjpzbg6729-57-15 00:10:00* Test Item Value Reference Range Interpretation Comments B-Type Natriuretic Peptide (test code = 63927-6) 687.0 0-100 H [facility] CenterB-Type Natriuretic Qwcvowd2971-51-70 00:10:00* Test Item Value Reference Range Interpretation Comments B-Type Natriuretic Peptide (test code = 59240-0) 687.0 0-100 H [facility] CenterB-Type Natriuretic Tawcoea5887-23-22 00:10:00* Test Item Value Reference Range Interpretation Comments B-Type Natriuretic Peptide (test code = 22573-1) 687.0 0-100 H [facility] Medical CenterCHEST SINGLE (PORTABLE)2019-08-23 00:02:00 [place] [address] Patient Name: ANGELA JEFFERS MR #: [id number] : 1945 Age/Sex: 74/F Req #: [id number] Adm Physician: Ordered by: TREY RODRIGES MD Report #: [id number] Location: Room/Bed: Procedure: [id number] DX/CHEST SINGLE (PORTABLE) [...] AM Dictated By: RAMIRO WARREN MD, MD 0004 Transcribed By: ARIEL on 08/23/19 0004 C OPY TO: TREY RODRIGES MD Blood Culture - Routine (Left Venipuncture)2019-08-19 18:00:00* Test Item Value Reference Range Interpretation Comments Result (test code = 6463-4) No growth in 5 days [id number] 18:00:00* Test Item Value Reference Range Interpretation Comments CULTURE (BEAKER) (test code = 1095) No growth in 5 days BLOOD [id number] 17:00:00* Test Item Value Reference Range Interpretation Comments CULTURE (BEAKER) (test code = 1095) No growth in 5 days POCT-GLUCOSE [id number] 12:06:00* Test Item Value Reference Range Interpretation Comments POC-GLUCOSE METER (BEAKER) (test code = 1538) 134 mg/dL 70-110 H : TESTED AT [facility] [address] [facility], [address]: Cooker Casing/Catheter Finisher And Inspector ID = [id number] for ANAY MARTINEZE HEMOGLOBIN [id number] 08:54:00* Test Item Value Reference Range Interpretation Comments HEMOGLOBIN A1C (BEAKER) (test code = 368) 5.8 % 4.3-6.1 POCT-GLUCOSE [id number] 08:25:00* Test Item Value Reference Range Interpretation Comments POC-GLUCOSE METER (BEAKER) (test code = 1538) 174 mg/dL 70-110 H : TESTED AT [facility] [address] [facility], [address]: Cooker Casing/Catheter Finisher And Inspector ID = [id number] for RAEANN MARTINEZ BASIC METABOLIC [id number] 05:12:00* Test Item Value Reference Range Interpretation [...] GFR IS NOT APPLICABLE FOR DIALYSIS PATIENTS. Cooker Casing ID - LAWRENCE WHEMODIALYSIS [id number] 00:08:48Óscar Freed RN 08/15/2019 12:10 AMLab Results Component Value Date WBC 7.9 08/14/2019 HGB 12.1 08/14/2019 HCT 40.3 08/14/2019 MCV 96.0 (H) 08/14/2019 PLT 166 08/14/2019 Lab Results Component Value Date GLUCOSE 273 (H) 08/14/2019 CALCIUM 8.4 08/14/2019 NA 133 (L) 08/14/2019 K 4.9 08/14/2019 CO2 25 07/18 CL 93 (L) 08/14/2019 BUN 72 (H) 08/14/2019 CREATININE 7.69 (H) 020 HD treatement x3 hours completed tolerated well,UF 3 liters removed,patient stable no complaints.Óscar Freed RN [facility] [id number] 23:46:00* Test Item Value Reference Range Interpretation Comments POC-GLUCOSE METER (BEAKER) (test code = 1538) 189 mg/dL 70-110 H : TESTED AT [place] [id number] [facility], [address]: Cooker Casing/Catheter Finisher And Inspector ID = [id number] for Óscar Freed HEPATITIS B SURFACE [id number] 21:37:00* Test Item Value Reference Range Interpretation Comments HEPATITIS B SURFACE ANTIGEN (2) (BEAKER) (test code = 2585) Nonreactive Nonreactive Cooker Casing ID - DBB-TYPE NATRIURETIC FACTOR (BNP)2019-08-14 18:54:00* Test Item Value Reference Range Interpretation Comments B-TYPE NATRIURETIC PEPTIDE (BEAKER) (test code = 700) 178 pg/mL 0-100 H Cooker Casing ID - BSPOCT-GLUCOSE [id number] 18:23:00* Test Item Value Reference Range Interpretation Comments POC-GLUCOSE METER (BEAKER) (test code = 1538) 247 mg/dL 70-110 H : TESTED AT [address], [address]: Cooker Casing/Catheter Finisher And Inspector ID = [id number] for RAEANN MARTINEZ TROPONIN [id number] 16:48:00* Test Item Value Reference Range Interpretation Comments TROPONIN I (BEAKER) (test code = 397) 0.07 ng/mL 0.00-0.03 [...] acidosis, acute neurological disease, and per sistent tachyarrhythmia.Cooker Casing ID - BSCREATINE KINASE (CK)2019-08-14 16:42:00 * Test Item Value Reference Range Interpretation Comments CREATINE KINASE TOTAL (BEAKER) (test code = 380) 49 U/L 29-20 0 Cooker Casing ID - BSBlood gas, [id number] 16:35:00* Test Item Value Reference Range Interpretation Comments pH, Hermes (test code = 2746-6) 7.36 7.32-7.42 pCO2, Hermes (test code = 755) 54 41- 51 mmHg H pO2, Hermes (test code = 2705-2) 41 25- 40 mmHg H O2 Sat, Hermes (test code = 2711-0) 73.0 % 40-70 H HCO3, Hermes (test code = 01609-5) 30 mmol/L 21-29 H Base Excess, Hermes (test code = 1927-3) 3.5 mmol/L -2-3 H Patient Temperature (test code = 8310-5) 37.0 C FIO2 (test code = 1819) 21 % Lab Interpretation (test code = 79983-0) [facility]normal [facility] [id number] 16:35:00* Test Item Value Reference Range Interpretation [...] code = 1819) 21.0 % BASIC METABOLIC [id number] 16:19:00* Test Item Value Reference Range Interpretation [...] GFR IS NOT APPLICABLE FOR DIALYSIS PATIENTS. Cooker Casing ID - BSC-Reactive [id number] 16:12:00* Test Item Value Reference Range Interpretation Comments CRP (test code = 676) 6.10 mg/dL 0-0.5 H GABBY (test code = GABBY) Cooker Casing ID - BS Lab Interpretation (test code = 88608-9) Abnormal [id number] 16:12:00* Test Item Value Reference Range Interpretation Comments MAGNESIUM (BEAKER) (test code = 627) 2.1 mg/dL 1.6-2.6 Specimen moderately hemolyzed Cooker Casing ID - BSHEPATIC FUNCTION [id number] 16:12:00* Test Item Value Reference Range Interpretation [...] 347) 15 U/L 6-55 Specimen moderately hemolyzed Cooker Casing ID - BSC-REACTIVE [id number] 16:12:00* Test Item Value Reference Range Interpretation Comments C-REACTIVE PROTEIN (BEAKER) (test code = 676) 6.10 mg/dL 0.00-0.5 0 H Cooker Casing ID - BSPT/YTKM9314-96-18 16:07:00* Test Item Value Reference Range Interpretation [...] mechanical heart valves.RAD, CHEST, 1 VIEW, NON [id number] 16:00:00 Reason for exam:->PNEUMONIAFINAL REPORT TECHNIQUE: Frontal chest radiograph dated 08/14/2019. CLINICAL HISTORY: Pneumonia COMPARISON STUDY: Chest radiograph dated 07/08/2019 IMPRESSION:Stable left retrocardiac airspace opacity and likely small left pleural effusion. No pneumothorax. Cardiomediastinal silhouette is stable in size. No pulmonary edema. Degenerative changes are seen in the spine. Signed: Steffi Dawkins Verified Date/Time: 08/14/2019 16:00:17 Reading Location: [facility] Mammo Reading Room Lactic acid, [id number] 15:57:00* Test Item Value Reference Range Interpretation Comments Lactate, Venous (test code = 2872) 1.4 mmol/L 0.5-2.2 Specimen moderately hemolyzed GABBY (test code = GABBY) Cooker Casing ID - BS Lab Interpretation (test code = 79367-9) Normal [facility]CT[facility] ACID, [id number] 15:57:00* Test Item Value Reference Range Interpretation Comments LACTATE BLOOD VENOUS (2) (BEAKER) (test code = 2872) 1.4 mmol/L 0 .5-2.2 Specimen moderately hemolyzed Cooker Casing ID - BSCBC W/PLT COUNT & AUTO [id number] 15:54:00* Test Item Value Reference Range Interpretation [...] code = 2801) 0 % 0-1 BLOOD [id number] 18:00:00* Test Item Value Reference Range Interpretation Comments CULTURE (BEAKER) (test code = 1095) No growth in 5 days POCT-GLUCOSE [id number] 17:40:00* Test Item Value Reference Range Interpretation Comments POC-GLUCOSE METER (BEAKER) (test code = 1538) 111 mg/dL 70-110 H : TESTED AT [address], [address]: Cooker Casing/Catheter Finisher And Inspector ID = [id number] for LACHELLE IZAGUIRRE POCT-GLUCOSE [id number] 17:16:00* Test Item Value Reference Range Interpretation Comments POC-GLUCOSE METER (BEAKER) (test code = 1538) 133 mg/dL 70-110 H : TESTED AT [address], [address]: Cooker Casing/Catheter Finisher And Inspector ID = [id number] for LACHELLE IZAGUIRRE CBC W/PLT COUNT & AUTO [id number] 10:40:00* Test Item Value Reference Range Interpretation [...] code = 2801) 1 % 0-1 POCT-GLUCOSE [id number] 21:28:00* Test Item Value Reference Range Interpretation Comments POC-GLUCOSE METER (BEAKER) (test code = 1538) 126 mg/dL 70-110 H : TESTED AT [place] [address] [facility], [address]: Cooker Casing/Catheter Finisher And Inspector ID = [id number] for LAURO CHOWDARY POCT-GLUCOSE [id number] 16:35:00* Test Item Value Reference Range Interpretation Comments POC-GLUCOSE METER (BEAKER) (test code = 1538) 185 mg/dL 70-110 H : TESTED AT [place] [address] [facility], [address]: Cooker Casing/Catheter Finisher And Inspector ID = [id number] for LACHELLE IZAGUIRRE POCT-GLUCOSE [id number] 13:21:00* Test Item Value Reference Range Interpretation Comments POC-GLUCOSE METER (BEAKER) (test code = 1538) 87 mg/dL 70-110 : TESTED AT [place] [address] [facility], [address]: Cooker Casing/Catheter Finisher And Inspector ID = [id number] for LACHELLE IZAGUIRRE HEMODIALYSIS [id number] 11:55:00José Escalante RN 07/10/2019 11:55 AMLab Results [...] out her access catheters. José Escalante RN [facility] [id number] 10:26:00* Test Item Value Reference Range Interpretation Comments POC-GLUCOSE METER (BEAKER) (test code = 1538) 102 mg/dL 70-110 : TESTED AT [address], [address]: Cooker Casing/Catheter Finisher And Inspector ID = [id number] for JOSÉ ESCALANTE BASIC METABOLIC [id number] 09:00:00* Test Item Value Reference Range Interpretation [...] GFR IS NOT APPLICABLE FOR DIALYSIS PATIENTS. [id number] 08:58:00* Test Item Value Reference Range Interpretation Comments PHOSPHORUS (BEAKER) (test code = 604) 1.7 mg/dL 2.3-4.7 L [id number] 08:58:00* Test Item Value Reference Range Interpretation Comments MAGNESIUM (BEAKER) (test code = 627) 2.0 mg/dL 1.6-2.6 CBC W/PLT COUNT & AUTO [id number] 08:41:00* Test Item Value Reference Range Interpretation [...] code = 2801) 0 % 0-1 POCT-GLUCOSE [id number] 21:30:00* Test Item Value Reference Range Interpretation Comments POC-GLUCOSE METER (BEAKER) (test code = 1538) 96 mg/dL 70-110 : TESTED AT [place] [address] [facility], [address]: Cooker Casing/Catheter Finisher And Inspector ID = [id number] for CHOWDARY LAURO POCT-GLUCOSE [id number] 17:06:00* Test Item Value Reference Range Interpretation Comments POC-GLUCOSE METER (BEAKER) (test code = 1538) 94 mg/dL 70-110 : TESTED AT [place] [address] [facility], [address]: Cooker Casing/Catheter Finisher And Inspector ID = [id number] for RASHEED CARDONAPARISHAMANDAPatricia Clostridium difficile GDH [id number] 16:42:00* Test Item Value Reference Range Interpretation Comments C. Difficle Toxin (test code = 8904971354) Negative Negative C. Difficile GDH Antigen (test code = 0583167409) Positive Nega tive A C. difficile present but toxin not detected. Indicates colonization with non- toxigenic strain or level of toxin below detectable levels. No need for enteric isolation. Treatment is rarely needed (only when strong clinical suspicion for Clostridium difficile infection) GABBY (test code = GABBY) Testing performed by [employer] R apid Cassette Assay. For GDH, published sensitivity of the assay is 98.7% compared to cytotoxicity testing. For Toxin AB, published sensitivity is 87.8% and specificity 99.4% compared to cytotoxicity testing.Verification of kit performance was done by the [facility] Microbiology Lab prior to clinical use. Lab Interpretation (test code = 13401-8) Abnormal [facility] DIFFICILE GDH [id number] 16:42:00* Test Item Value Reference Range Interpretation Comments CDT TOXIN (test code = 1661186697) Negative Negative CDT GDH ANTIGEN (test code = 5431499740) Positive Negative A C. difficile present but [...] of kit performance was done by the [facility] Microbiology Lab prior to cl inical use.POCT-GLUCOSE [id number] 11:57:00* Test Item Value Reference Range Interpretation Comments POC-GLUCOSE METER (BEAKER) (test code = 1538) 255 mg/dL 70-110 H : Notified RN/MD: TESTED AT [address], [address]: Cooker Casing/Catheter Finisher And Inspector ID = [id number] for TSEGGAI, TSIGHEREDA POCT-GLUCOSE [id number] 08:31:00* Test Item Value Reference Range Interpretation Comments POC-GLUCOSE METER (BEAKER) (test code = 1538) 108 mg/dL 70-110 : TESTED AT [address], [address]: Cooker Casing/Catheter Finisher And Inspector ID = [id number] for TSEGGAI, TSIGHEREDA [id number] 06:45:00* Test Item Value Reference Range Interpretation Comments Procalcitonin (test code = 22578-9) 1.09 ng/mL <0.05 H GABBY (test code = GABBY) SEPSIS RISK (ng/mL)Low: 0.05-0.50Intermediate: 0.51-2.00High: >=2.01 Lab Interpretation (test code = 84880-4) Abnormal [facility] HospitalWujuyuBVCLXSCCKVPNU1535-53-09 06:45:00* Test Item Value Reference Range Interpretation Comments PROCALCITONIN (BEAKER) (test code = 3036) 1.09 ng/mL <0.05 H SEPSIS RISK (ng/mL)Low: 0.05-0.50Intermediate: 0.51-2.00High: > =2.01BASIC METABOLIC [id number] 06:06:00* Test Item Value Reference Range Interpretation [...] GFR IS NOT APPLICABLE FOR DIALYSIS PATIENTS. [id number] 06:05:00* Test Item Value Reference Range Interpretation Comments PHOSPHORUS (BEAKER) (test code = 604) 1.5 mg/dL 2.3-4.7 LL CBC W/PLT COUNT & AUTO [id number] 06:03:00* Test Item Value Reference Range Interpretation [...] (test code = 2801) 1 % 0-1 [id number] 06:02:00* Test Item Value Reference Range Interpretation Comments MAGNESIUM (BEAKER) (test code = 627) 2.0 mg/dL 1.6-2.6 Vancomycin level, [id number] 05:59:00* Test Item Value Reference Range Interpretation Comments Vancomycin Tr (test code = 4092-3) 18.0 ug/mL 10-20 Lab Interpretation (test code = 33236-8) Normal [facility] HospitalVANCOMYCIN LEVEL, [id number] 05:59:00* Test Item Value Reference Range Interpretation Comments VANCOMYCIN TROUGH (BEAKER) (test code = 522) 18.0 ug/mL 10.0-20.0 POCT-GLUCOSE [id number] 21:14:00* Test Item Value Reference Range Interpretation Comments POC-GLUCOSE METER (BEAKER) (test code = 1538) 150 mg/dL 70-110 H : TESTED AT [facility] [address] [facility], [address]: Cooker Casing/Catheter Finisher And Inspector ID = [id number] for FIDE TURNER, CHEST, 1 VIEW, NON [id number] 18:35:00Reason for exam:->Worsening leukocytosisShould this be performed [...] Verif ied Date/Time: 07/08/2019 18:35:04 Reading Location: [facility] C013Y CT Body Readi Room -GLUCOSE [id number] 18:27:00* Test Item Value Reference Range Interpretation Comments POC-GLUCOSE METER (BEAKER) (test code = 1538) 126 mg/dL 70-110 H : TESTED AT [facility] [address] [facility], [address]: Cooker Casing/Catheter Finisher And Inspector ID = [id number] for FERDINAND HILL POCT-GLUCOSE [id number] 12:27:00* Test Item Value Reference Range Interpretation Comments POC-GLUCOSE METER (BEAKER) (test code = 1538) 114 mg/dL 70-110 H : TESTED AT [facility] [address] [facility], [address]: Cooker Casing/Catheter Finisher And Inspector ID = [id number] for TERRIEUFERDINAND CBC W/PLT COUNT & AUTO [id number] 10:45:00* Test Item Value Reference Range Interpretation [...] code = 2801) 1 % 0-1 POCT-GLUCOSE [id number] 09:39:00* Test Item Value Reference Range Interpretation Comments POC-GLUCOSE METER (BEAKER) (test code = 1538) 98 mg/dL 70-110 : TESTED AT [address], [address]: Cooker Casing/Catheter Finisher And Inspector ID = [id number] for MARYANNE NILES BASIC METABOLIC [id number] 07:22:00* Test Item Value Reference Range Interpretation [...] GFR IS NOT APPLICABLE FOR DIALYSIS PATIENTS. [id number] 07:09:00* Test Item Value Reference Range Interpretation Comments PHOSPHORUS (BEAKER) (test code = 604) 1.9 mg/dL 2.3-4.7 L [id number] 07:09:00* Test Item Value Reference Range Interpretation Comments MAGNESIUM (BEAKER) (test code = 627) 2.1 mg/dL 1.6-2.6 CBC W/PLT COUNT & AUTO [id number] 06:43:00* Test Item Value Reference Range Interpretation [...] code = 2801) 1 % 0-1 POCT-GLUCOSE [id number] 01:31:00* Test Item Value Reference Range Interpretation Comments POC-GLUCOSE METER (BEAKER) (test code = 1538) 145 mg/dL 70-110 H : TESTED AT [address], [address]: Cooker Casing/Catheter Finisher And Inspector ID = [id number] for ISAI CRUZ POCT-GLUCOSE [id number] 21:25:00* Test Item Value Reference Range Interpretation Comments POC-GLUCOSE METER (BEAKER) (test code = 1538) 76 mg/dL 70-110 : TESTED AT [address], [address]: Cooker Casing/Catheter Finisher And Inspector ID = [id number] for JESSICA SINHA POCT-GLUCOSE [id number] 16:59:00* Test Item Value Reference Range Interpretation Comments POC-GLUCOSE METER (BEAKER) (test code = 1538) 98 mg/dL 70-110 : TESTED AT [address], [address]: Cooker Casing/Catheter Finisher And Inspector ID = [id number] for HERNESTO CASTRO POCT-GLUCOSE [id number] 07:42:00* Test Item Value Reference Range Interpretation Comments POC-GLUCOSE METER (BEAKER) (test code = 1538) 79 mg/dL 70-110 : Notified RN/MD: TESTED AT [address], [address]: Cooker Casing/Catheter Finisher And Inspector ID = [id number] for VERN LAZO BASIC METABOLIC [id number] 06:50:00* Test Item Value Reference Range Interpretation [...] DIALYSIS PATIENTS. CBC W/PLT COUNT & AUTO [id number] 06:05:00* Test Item Value Reference Range Interpretation [...] code = 2801) 1 % 0-1 POCT-GLUCOSE [id number] 22:03:00* Test Item Value Reference Range Interpretation Comments POC-GLUCOSE METER (BEAKER) (test code = 1538) 121 mg/dL 70-110 H : Notified RN/MD: TESTED AT [address], [address]: Cooker Casing/Catheter Finisher And Inspector ID = [id number] for GAGANDEEP MEADE POCT-GLUCOSE [id number] 17:36:00* Test Item Value Reference Range Interpretation Comments POC-GLUCOSE METER (BEAKER) (test code = 1538) 166 mg/dL 70-110 H : TESTED AT [address], [address]: Cooker Casing/Catheter Finisher And Inspector ID = [id number] for LACHELLE IZAGUIRRE POCT-GLUCOSE [id number] 12:33:00* Test Item Value Reference Range Interpretation Comments POC-GLUCOSE METER (BEAKER) (test code = 1538) 109 mg/dL 70-110 : TESTED AT [address], [address]: Cooker Casing/Catheter Finisher And Inspector ID = [id number] for JERICA IZAGUIRREMOND BASIC METABOLIC [id number] 11:49:00* Test Item Value Reference Range Interpretation [...] DIALYSIS PATIENTS. CBC W/PLT COUNT & AUTO [id number] 11:10:00* Test Item Value Reference Range Interpretation [...] code = 2801) 1 % 0-1 POCT-GLUCOSE [id number] 07:51:00* Test Item Value Reference Range Interpretation Comments POC-GLUCOSE METER (BEAKER) (test code = 1538) 89 mg/dL 70-110 : TESTED AT [address], [address]: Cooker Casing/Catheter Finisher And Inspector ID = [id number] for LACHELLE IZAGUIRRE POCT-GLUCOSE [id number] 21:23:00* Test Item Value Reference Range Interpretation Comments POC-GLUCOSE METER (BEAKER) (test code = 1538) 126 mg/dL 70-110 H : Notified RN/MD: TESTED AT [address], [address]: Cooker Casing/Catheter Finisher And Inspector ID = [id number] for LASHAY MAED HEMODIALYSIS [id number] 18:01:49Alyson Stoddard RN 07/05/2019 6:05 PMTreatment terminated [...] 97.5 F (36.4 C) SpO2: 93% [facility] [id number] 13:45:00* Test Item Value Reference Range Interpretation Comments POC-GLUCOSE METER (BEAKER) (test code = 1538) 108 mg/dL 70-110 : TESTED AT [address], [address]: Cooker Casing/Catheter Finisher And Inspector ID = [id number] for FABIO SOLOMON CBC W/PLT COUNT & AUTO [id number] 09:31:00* Test Item Value Reference Range Interpretation [...] code = 2801) 1 % 0-1 POCT-GLUCOSE [id number] 08:46:00* Test Item Value Reference Range Interpretation Comments POC-GLUCOSE METER (BEAKER) (test code = 1538) 62 mg/dL 70-110 L : TESTED AT [address], [address]: Cooker Casing/Catheter Finisher And Inspector ID = [id number] for LACHELLE IZAGUIRRE BASIC METABOLIC [id number] 07:46:00* Test Item Value Reference Range Interpretation [...] IS NOT APPLICABLE FOR DIALYSIS PATIENTS. POCT-GLUCOSE [id number] 22:47:00* Test Item Value Reference Range Interpretation Comments POC-GLUCOSE METER (BEAKER) (test code = 1538) 95 mg/dL 70-110 : TESTED AT [address], [address]: Cooker Casing/Catheter Finisher And Inspector ID = [id number] for JESSICA SINHA POCT-GLUCOSE [id number] 21:26:00* Test Item Value Reference Range Interpretation Comments POC-GLUCOSE METER (BEAKER) (test code = 1538) 78 mg/dL 70-110 : TESTED AT [address], [address]: Cooker Casing/Catheter Finisher And Inspector ID = [id number] for WALDO JONES POCT-GLUCOSE [id number] 12:31:00* Test Item Value Reference Range Interpretation Comments POC-GLUCOSE METER (BEAKER) (test code = 1538) 95 mg/dL 70-110 : TESTED AT [address], [address]: Cooker Casing/Catheter Finisher And Inspector ID = [id number] for OMAR GRACE POCT-GLUCOSE [id number] 08:45:00* Test Item Value Reference Range Interpretation Comments POC-GLUCOSE METER (BEAKER) (test code = 1538) 96 mg/dL 70-110 : TESTED AT [address], [address]: Cooker Casing/Catheter Finisher And Inspector ID = [id number] for BROWN, GRACE BASIC METABOLIC [id number] 06:50:00* Test Item Value Reference Range Interpretation [...] DIALYSIS PATIENTS. CBC W/PLT COUNT & AUTO [id number] 05:59:00* Test Item Value Reference Range Interpretation [...] code = 2801) 1 % 0-1 POCT-GLUCOSE [id number] 21:23:00* Test Item Value Reference Range Interpretation Comments POC-GLUCOSE METER (BEAKER) (test code = 1538) 134 mg/dL 70-110 H : Notified RN/MD: TESTED AT [address], [address]: Cooker Casing/Catheter Finisher And Inspector ID = [id number] for SHABANALASHAY HOLDEN POCT-GLUCOSE [id number] 17:06:00* Test Item Value Reference Range Interpretation Comments POC-GLUCOSE METER (BEAKER) (test code = 1538) 106 mg/dL 70-110 : TESTED AT [address], [address]: Cooker Casing/Catheter Finisher And Inspector ID = [id number] for PATRICIA DARON CT, BRAIN, WITHOUT [id number] 12:58:00Please have CTH done after dialysisReason for [...] recommended for further characterization. Signed: Hernesto Paul Verified Date/Time: 07/03/2019 12:58:05 Reading Location: [facility] Radiology Reading Room -GLUCOSE [id number] 11:10:00* Test Item Value Reference Range Interpretation Comments POC-GLUCOSE METER (BEAKER) (test code = 1538) 88 mg/dL 70-110 : TESTED AT [facility] [address] [facility], [address]: Cooker Casing/Catheter Finisher And Inspector ID = [id number] for JESSICA SINHA BASIC METABOLIC [id number] 06:45:00* Test Item Value Reference Range Interpretation [...] IS NOT APPLICABLE FOR DIALYSIS PATIENTS. LIPID [id number] 06:44:00* Test Item Value Reference Range Interpretation [...] High >=190 CBC W/PLT COUNT & AUTO [id number] 06:14:00* Test Item Value Reference Range Interpretation [...] = 2801) 0 % 0-1 HEMOGLOBIN AND [id number] 19:07:00* Test Item Value Reference Range Interpretation Comments HEMOGLOBIN (BEAKER) (test code = 410) 7.4 GM/DL 11.2-15.7 L HEMATOCRIT (BEAKER) (test code = 411) 23.4 % 34.1-44.9 L Check at least 1 hour after blood transfusion completePOCT-GLUCOSE METER 2019-07-02 16:32:00* Test Item Value Reference Range Interpretation Comments POC-GLUCOSE METER (BEAKER) (test code = 1538) 157 mg/dL 70-110 H : TESTED AT [facility] [address] [facility], [address]: Cooker Casing/Catheter Finisher And Inspector ID = [id number] for Najmi, Royal EEG AWAKE AND [id number] 11:14:00Reason for exam:->Waxing/waning mentation, AMSShould this be performed at the bedside?->YesEEG REPORT: Angela Jeffers, 74 yrsMRN:[id number] of EEDate of report: Test location: Inpatient - ICUEEG start time: 1030EEG end time: #: ICD Code: #: R41.82 Altered mental status, unspecified (ICD 9: 780.97)CPT Code: #: 34585: 01. EEG awake and drowsy; 20-40 minPROCEDURE: [...] on 9 11:14 AM EEG AWAKE AND [id number] 11:14:00Interface, External Ris In - 07/02/2019 11:15 AM CSTEEG REPORT: Zeyad Angela Nelson, 74 yrsMRN:[id number] of EEDate of report: Test location: Inpatient - ICUEEG start time: end time: #: ICD Code: #: R41.82 Altered mental status, unspecified (ICD 9: 780.97)CPT Code: #: 52514: 01. EEG awake and drowsy; 20-40 minPROCEDURE: [...] rther clinical correlation is suggested.Neurophysiologist: Yaniv Butcher [facility]PO[facility] [id number] 10:14:00* Test Item Value Reference Range Interpretation Comments POC-GLUCOSE METER (BEAKER) (test code = 1538) 181 mg/dL 70-110 H : TESTED AT [address], [id number]: Cooker Casing/Catheter Finisher And Inspector ID = [id number] for Royal Licea POCT-GLUCOSE [id number] 06:04:00* Test Item Value Reference Range Interpretation Comments POC-GLUCOSE METER (BEAKER) (test code = 1538) 200 mg/dL 70-110 H : Notified RN/MD: TESTED AT [address], [address]: Cooker Casing/Catheter Finisher And Inspector ID = [id number] for LASHAY MEAD BASIC METABOLIC [id number] 05:25:00* Test Item Value Reference Range Interpretation [...] GFR IS NOT APPLICABLE FOR DIALYSIS PATIENTS. [id number] 05:20:00* Test Item Value Reference Range Interpretation Comments FERRITIN (BEAKER) (test code = 361) 1676 ng/mL 5-275 H PTH, [id number] 05:05:00* Test Item Value Reference Range Interpretation Comments PTH (test code = 2731-8) 67.3 pg/mL 8.5-72.5 Lab Interpretation (test code = 16211-5) [facility] [id number] 05:05:00* Test Item Value Reference Range Interpretation Comments PARATHYROID HORMONE INTACT (BEAKER) (test code = 577) 67.3 pg/mL 8.5-72.5 CBC W/PLT COUNT & AUTO [id number] 04:59:00* Test Item Value Reference Range Interpretation [...] = 2590) 27 % 20-5 5 POCT-GLUCOSE [id number] 23:27:00* Test Item Value Reference Range Interpretation Comments POC-GLUCOSE METER (BEAKER) (test code = 1538) 175 mg/dL 70-110 H : Notified RN/MD: TESTED AT [address], [address]: Cooker Casing/Catheter Finisher And Inspector ID = [id number] for LASHAY MEAD POCT-GLUCOSE [id number] 18:46:00* Test Item Value Reference Range Interpretation Comments POC-GLUCOSE METER (BEAKER) (test code = 1538) 183 mg/dL 70-110 H : TESTED AT [address], [address]: Cooker Casing/Catheter Finisher And Inspector ID = [id number] for RADHA, TIKEYA HEMOGLOBIN AND [id number] 16:55:00* Test Item Value Reference Range Interpretation Comments HEMOGLOBIN (BEAKER) (test code = 410) 7.5 GM/DL 11.2-15.7 L HEMATOCRIT (BEAKER) (test code = 411) 25.7 % 34.1-44.9 L POCT-GLUCOSE [id number] 13:04:00* Test Item Value Reference Range Interpretation Comments POC-GLUCOSE METER (BEAKER) (test code = 1538) 180 mg/dL 70-110 H : TESTED AT [address], [address]: Cooker Casing/Catheter Finisher And Inspector ID = [id number] for RADHA, TIKEYA POCT-GLUCOSE [id number] 08:53:00* Test Item Value Reference Range Interpretation Comments POC-GLUCOSE METER (BEAKER) (test code = 1538) 172 mg/dL 70-110 H : Notified RN/MD: TESTED AT [address], [address]: Cooker Casing/Catheter Finisher And Inspector ID = [id number] for RADHA, TIKEYA BASIC METABOLIC [id number] 04:03:00* Test Item Value Reference Range Interpretation [...] DIALYSIS PATIENTS. CBC W/PLT COUNT & AUTO [id number] 03:58:00* Test Item Value Reference Range Interpretation [...] = 2801) 0 % 0-1 HEMOGLOBIN AND [id number] 01:13:00* Test Item Value Reference Range Interpretation Comments HEMOGLOBIN (BEAKER) (test code = 410) 7.0 GM/DL 11.2-15.7 L HEMATOCRIT (BEAKER) (test code = 411) 22.9 % 34.1-44.9 L HEMOGLOBIN AND [id number] 19:09:00* Test Item Value Reference Range Interpretation Comments HEMOGLOBIN (BEAKER) (test code = 410) 7.0 GM/DL 11.2-15.7 L HEMATOCRIT (BEAKER) (test code = 411) 22.1 % 34.1-44.9 L POCT-GLUCOSE [id number] 18:46:00* Test Item Value Reference Range Interpretation Comments POC-GLUCOSE METER (BEAKER) (test code = 1538) 134 mg/dL 70-110 H : TESTED AT [facility] [address] [facility], [address]: Cooker Casing/Catheter Finisher And Inspector ID = [id number] for NENITA GARCIA Transthoracic 2D echo w contrast & [id number] 16:05:38Ejection FractionSLEH ECHO HEARTLAB MKCKESSON CPACSInterface, External Ris In - 06/30/2019 4:05 PM CSTTransthoracic Echocardiography Report (TTE) Demographics Patient Name ANGELA JEFFERS Date of Study 06/30/2019 [facility] Gender Female Visit Number [id number] Race Black 8 Room Number [id number] Number Date of 1945 Referring Physician Charbel Harris Age 74 year(s) Sonograp her Gabrielle May [facility] Interpreting Joan Loyd MD Physician Fellow [...] CO: 12.79 l/min LVOT CI: 6.21 l/min/m^2 [facility] Groin Doppler [id number] 14:23:36Ejection FractionSLE ECHO HEARTLAB MKCKESSON CPACS Left Impression1. There [...] Study 06/29/2019 OMAR Age 74 Visit Number [id number] Gender Female Accession Number [id number] Date of 1945 Referring Charbel Acevedo Room Number 7403 Physician Topology Professor Tracy Ho T Interpreting Bianka Cheema MD Physician ProcedureType of [...] in cm/s ; Diameters are [facility] 2019-06-30 12:23:00* Test Item Value Reference Range Interpretation Comments POC-GLUCOSE METER (BEAKER) (test code = 1538) 166 mg/dL 70-110 H : TESTED AT [address], [address]: Cooker Casing/Catheter Finisher And Inspector ID = [id number] for NENITA GARCIA HEMOGLOBIN AND [id number] 11:37:00* Test Item Value Reference Range Interpretation Comments HEMOGLOBIN (BEAKER) (test code = 410) 7.0 GM/DL 11.2-15.7 L HEMATOCRIT (BEAKER) (test code = 411) 22.0 % 34.1-44.9 L POCT-GLUCOSE [id number] 08:51:00* Test Item Value Reference Range Interpretation Comments POC-GLUCOSE METER (BEAKER) (test code = 1538) 168 mg/dL 70-110 H : TESTED AT [facility] [address] [facility], [address]: Cooker Casing/Catheter Finisher And Inspector ID = [id number] for RINA GARCIAA BASIC METABOLIC [id number] 05:24:00* Test Item Value Reference Range Interpretation [...] GFR IS NOT APPLICABLE FOR DIALYSIS PATIENTS. [id number] 05:19:00* Test Item Value Reference Range Interpretation Comments PHOSPHORUS (BEAKER) (test code = 604) 6.2 mg/dL 2.3-4.7 H [id number] 05:19:00* Test Item Value Reference Range Interpretation Comments MAGNESIUM (BEAKER) (test code = 627) 2.1 mg/dL 1.6-2.6 CBC W/PLT COUNT & AUTO [id number] 04:44:00* Test Item Value Reference Range Interpretation [...] = 2801) 1 % 0-1 HEMOGLOBIN AND [id number] 00:47:00* Test Item Value Reference Range Interpretation Comments HEMOGLOBIN (BEAKER) (test code = 410) 7.6 GM/DL 11.2-15.7 L HEMATOCRIT (BEAKER) (test code = 411) 24.6 % 34.1-44.9 L POCT-GLUCOSE [id number] 18:57:00* Test Item Value Reference Range Interpretation Comments POC-GLUCOSE METER (BEAKER) (test code = 1538) 209 mg/dL 70-110 H : TESTED AT [facility] [address] [facility], [address]: Cooker Casing/Catheter Finisher And Inspector ID = [id number] for Kinga Moser HEMOGLOBIN AND [id number] 18:39:00* Test Item Value Reference Range Interpretation Comments HEMOGLOBIN (BEAKER) (test code = 410) 6.8 GM/DL 11.2-15.7 L HEMATOCRIT (BEAKER) (test code = 411) 21.5 % 34.1-44.[address], BRAIN, WITHOUT [id number] 15:58:00FINAL REPORT CT Head without contrast CLINICAL [...] MDReport Verified Date/Time: 06/29/2019 15:58:45 Reading Location: [address] Neuro Reading Room -GLUCOSE [id number] 11:59:00* Test Item Value Reference Range Interpretation Comments POC-GLUCOSE METER (BEAKER) (test code = 1538) 216 mg/dL 70-110 H : TESTED AT [facility] [address] [facility], [address]: Cooker Casing/Catheter Finisher And Inspector ID = [id number] for Kinga Moser HEMOGLOBIN AND [id number] 11:22:00* Test Item Value Reference Range Interpretation Comments HEMOGLOBIN (BEAKER) (test code = 410) 7.2 GM/DL 11.2-15.7 L HEMATOCRIT (BEAKER) (test code = 411) 23.3 % 34.1-44.9 L RAD, ABDOMEN/KUB, 1 VIEW [id number] 09:57:00Reason for exam:->line placement FINAL REPORT Abdomen. [...] Report Verified Date/Time: 06/29/2019 09:57:47 Reading Location: [facility] B1 C013X O rtho Consult Reading Room abdomen / KUB 1 [id number] 09:57:00Interface, External Ris In - 06/29/2019 10:00 [...] MDReport Verified Date/Time: 06/29/2019 09:57:47 Reading Location: [facility] B1 C013X Ortho Consult Reading Room [facility]HEMO[facility] [id number] 08:59:00* Test Item Value Reference Range Interpretation Comments HEMOGLOBIN A1C (BEAKER) (test code = 368) 5.7 % 4.3-6.1 POCT-GLUCOSE [id number] 08:03:00* Test Item Value Reference Range Interpretation Comments POC-GLUCOSE METER (BEAKER) (test code = 1538) 224 mg/dL 70-110 H : Notified RN/MD: TESTED AT [address], [address]: Cooker Casing/Catheter Finisher And Inspector ID = [id number] for JADA BREAUX BASIC METABOLIC [id number] 04:21:00* Test Item Value Reference Range Interpretation [...] GFR IS NOT APPLICABLE FOR DIALYSIS PATIENTS. [id number] 04:17:00* Test Item Value Reference Range Interpretation Comments PHOSPHORUS (BEAKER) (test code = 604) 5.6 mg/dL 2.3-4.7 H [id number] 04:17:00* Test Item Value Reference Range Interpretation Comments MAGNESIUM (BEAKER) (test code = 627) 2.0 mg/dL 1.6-2.6 CBC W/PLT COUNT & AUTO [id number] 04:09:00* Test Item Value Reference Range Interpretation [...] (test code = 2801) 0 % 0-1 [id number] 01:02:00* Test Item Value Reference Range Interpretation Comments Fibrinogen (test code = 3255-7) 428 mg/dl 225-434 Lab Interpretation (test code = 99008-4) Normal [facility] HospitalFIBRINOGEN2019-[facility] 01:02:00* Test Item Value Reference Range Interpretation Comments FIBRINOGEN LEVEL (BEAKER) (test code = 658) 428 mg/dl 225-434 [id number] 00:05:00* Test Item Value Reference Range Interpretation Comments PTT (test code = 86068-6) 33.8 22.5- 36.0 seconds Lab Interpretation (test code = 88049-7) Normal [facility]APTT[facility] 00:05:00* Test Item Value Reference Range Interpretation Comments PARTIAL THROMBOPLASTIN TIME (BEAKER) (test code = 760) 33.8 seconds 22.5-36.0 PROTHROMBIN TIME/[id number] 00:04:00* Test Item Value Reference Range Interpretation Comments PROTIME (BEAKER) (test code = 759) 15.1 seconds 11.9-14.2 H INR (YUNIERAKER) (test code = 370) 1.3 <=5.9 Effective 12/11/2018: PT Reference Range ChangeNew: 11.9-14.2 Previous: 11.7-14. 7RECOMMENDED COUMADIN/WARFARIN INR THERAPY RANGESSTANDARD DOSE: 2.0-3.0 Include s: PROPHYLAXIS for venous thrombosis, systemic embolization; TREATMENT for venou s thrombosis and/or pulmonary embolus.HIGH RISK: Target INR is 2.5-3.5 for patie nts wiht mechanical heart valves.POCT-GLUCOSE [id number] 00:00:00* Test Item Value Reference Range Interpretation Comments POC-GLUCOSE METER (ELIAZAR) (test code = 1538) 219 mg/dL 70-110 H : Notified RN/MD: TESTED AT [facility] [address] [facility], [address]: Cooker Casing/Catheter Finisher And Inspector ID = [id number] for LISA PLATA Comprehensive metabolic [id number] 23:53:00* Test Item Value Reference Range Interpretation Comments Protein, Total (test code = 2885-2) 6.7 6.0- 8.3 gm/dL Albumin (test code = 38039-4) 3.0 g/dL 3.5-5 L Alkaline Phosphatase (test [...] mg/dL 70-105 H Calcium (test code = 90886-6) 7.8 mg/dL 8.4-10.2 L AST (test code = 1920-8) 8 U/L 5-34 ALT (test code = 1742-6) <6 6-55 L EGFR (test code = 64179-2) 6 mL/min/1.73 sq m ESTIMATED GFR IS NOT ACCURATE CREATININE CLEARANCE IN PREDICTING GLOMERULAR FILTRATION RATE. ESTIMATED GFR IS NOT APPLICABLE FOR DIALYSIS PATIENTS. Lab Interpretation (test code = 51751-3) Abnormal [facility] HospitalCOMPRE[facility] [id number] 23:53:00* Test Item Value Reference Range Interpretation [...] NOT APPLICABLE FOR DIALYSIS PATIENTS. HEMOGLOBIN AND [id number] 23:37:00* Test Item Value Reference Range Interpretation Comments HEMOGLOBIN (BEAKER) (test code = 410) 8.3 GM/DL 11.2-15.7 L HEMATOCRIT (BEAKER) (test code = 411) 27.0 % 34.1-44.9 L HEMOGLOBIN AND [id number] 20:45:00* Test Item Value Reference Range Interpretation Comments HEMOGLOBIN (BEAKER) (test code = 410) 8.7 GM/DL 11.2-15.7 L HEMATOCRIT (BEAKER) (test code = 411) 28.4 % 34.1-44.9 L Post transfusionCBC W/PLT COUNT & AUTO [id number] 20:45:00* Test Item Value Reference Range Interpretation [...] code = 2801) 0 % 0-1 CT, CTANG [id number] 17:32:00Anesthesia:->NoneFINAL REPORT CLINICAL HISTORY: Neuro deficit, acute, [...] Dow Verified Date/Time: 06/28/2019 17:32:12 Reading Location: [facility] C013V Neuro Reading Room 0 5:[address], CAROTID, [id number] 17:32:00Anesthesia:->NoneFINAL REPORT CLINICAL HISTORY: Neuro deficit, acute, [...] critical care neurologist at 5:20 PM Signed: Dow, Cris MDRepor t Verified Date/Time: 06/28/2019 17:32:12 Reading Location: [facility] C013V Neuro Reading Room 0 5:32 PM CTA [id number] 17:32:00Interface, External Ris In - 06/30/2019 3:13 [...] neurologist at 5:20 PM Signed: Cris Dow MDRgildardoort Verified Date/Time: 06/28 17:32:12 Reading Location: [facility] B1 C013V Neuro Reading Room Electronic ally signed by: CRIS DOW M.D. on 06/28/2019 05:32 PM [facility] [id number] 17:32:00Interface, External Ris In - 06/28/2019 5:34 [...] MDReport Verified Date/Time: 06/28 17:32:12 Reading Location: [address] Neuro Reading Room Electronic all signed by: CRIS DOW M.D. on 06/28/2019 05:32 PM [facility] [id number] 17:23:00* Test Item Value Reference Range Interpretation Comments POC-GLUCOSE METER (ELIAZAR) (test code = 1538) 138 mg/dL 70-110 H : TESTED AT [address], [address]: Cooker Casing/Catheter Finisher And Inspector ID = [id number] for WAQAS ZAMUDIO POCT-GLUCOSE [id number] 17:22:00* Test Item Value Reference Range Interpretation Comments POC-GLUCOSE METER (ELIAZAR) (test code = 1538) 144 mg/dL 70-110 H : TESTED AT [facility] [address] [facility], [address]: Cooker Casing/Catheter Finisher And Inspector ID = [id number] for ERICA WALSH CT, BRAIN/STROKE [id number] 16:27:00Reason for exam:->strokeFINAL REPORT CT Head without [...] Evans Verified Date/Time: 06/28/2019 16:27:55 Reading Location: [address] Neuro Reading Room brain/stroke test [id number] 16:27:00 Interface, External Ris In - 06/28/2019 4:30 PM CSTFINAL REPORT PATIENT ID: [id number] Head without contrast CLINICAL HISTORY: stroke [...] care neurologist at 4:28 PM Signed: Cris Doweport Verified Date/Time: 06/28/2019 16:27:55 Reading Location: [address] Neuro Reading R o [facility] HospitalPlatelet Aggregation: Function [id number] 14:59:00* Test Item Value Reference Range Interpretation Comments Pathologist: (test code = 2622) Parmindre Stuart MD (electron ic signature) Platelets (test code = 2656) 177 150- 450 K/CU MM ADP (test code = 41843-5) 86 % 62-100 Platelet Rich Plasma (test code = 2134) 218 200- 300 k/cu mm Plt. Function Screen Interpretation (test code = 4655) Normal aggregation results with ADP. No evidence of platelet dysfunction or P2Y12 inhibitor effect. GABBY (test code = GABBY) Platelet Function Screen res ults may be falsely low with platelet counts<75,000/cu mm.REDRAWREDRAWREDRAW [facility] HospitalPLATELET AGGREGATION: FUNCTION [id number] 14:59:00* Test Item Value Reference Range Interpretation Comments [id number]-[id number] (BEAKER) (test code = 2622) Carie Stuart MD (electronic signature) PLATELET COUNT AGG (BEAKER) (test code = 2656) 177 K/CU MM 150-450 PLATELET RICH PLASMA(BEAKER) (test code = 2134) 218 k/cu mm 200-30 0 PLATELET FUNCTION SCREEN INTERPRETATION (BEAKER) (test code = 3275) Normal aggregation results with ADP. No evidence of platelet dysfunction or P2Y12 inhibitor effect. Platelet Function Screen results may be falsely low with platelet counts< 75,000/cu mm.REDRAWREDRAWREDRAWPLATELET AGGREGATION: FUNCTION [id number] 14:58:00* Test Item Value Reference Range Interpretation Comments [id number] (BEAKER) (test code = 2622) Carie Stuart MD (electronic signature) PLATELET COUNT AGG (BEAKER) (test code = 2656) 161 K/CU MM 150-450 PLATELET RICH PLASMA(BEAKER) (test code = 2134) 163 k/cu mm 200-30 0 L PLATELET FUNCTION SCREEN INTERPRETATION (BEAKER) (test code = 6795) Normal aggregation results with ADP. No evidence of platelet dysfunction or P2Y12 inhibitor effect. Platelet Function Screen results may be falsely low with platelet counts< 75,000/cu mm.HEPATITIS B SURFACE [id number] 10:10:00* Test Item Value Reference Range Interpretation Comments HEPATITIS B SURFACE ANTIGEN (2) (BEAKER) (test code = 2585) Nonreactive Nonreactive CBC W/PLT COUNT & AUTO [id number] 10:04:00* Test Item Value Reference Range Interpretation [...] code = 2801) 0 % 0-1 POCT-GLUCOSE [id number] 07:40:00* Test Item Value Reference Range Interpretation Comments POC-GLUCOSE METER (BEAKER) (test code = 1538) 145 mg/dL 70-110 H : TESTED AT [facility] [address] [facility], [address]: Cooker Casing/Catheter Finisher And Inspector ID = [id number] for WAQAS ZAMUDIO CBC W/PLT COUNT & AUTO [id number] 06:25:00* Test Item Value Reference Range Interpretation Comments WHITE BLOOD CELL COUNT (BEAKER) (test code = 775) 4.7 K/ L 3.5- 10.5 Specimen clotted. Autoverified. Notified bg#[id number] about corrected reportThis is a corrected result. Previous result was 4.7 K/ L on 06/28/2019 at 0529 COMPTROLL[facility] RED BLOOD CELL COUNT (BEAKER) (test code = 761) 3.56 M/ L 3.93-5 .22 L Specimen clotted. Autoverified. Notified bg#[id number] about corrected reportThis is a corrected result. Previous result was 3.56 M/ L on 06/28/2019 at 0529 COMPTRO[facility]ER HEMOGLOBIN (BEAKER) (test code = 410) 10.0 GM/DL 11.2-15.7 L Specimen clotted. Autoverified. Notified bg#[id number] about corrected reportThis is a corrected result. Previous result was 10.0 GM/DL on 06/28/2019 at 0529 [facility] HEMATOCRIT (BEAKER) (test code = 411) 35.3 % 34.1-44.9 Specimen clotted. Autoverified. Notified bg#[id number] about corrected reportThis is a corrected result. Previous result was 35.3 % on 06/28/2019 at 0529 COMPTR[facility] MEAN CORPUSCULAR VOLUME (BEAKER) (test code = 753) 99.2 fL 79. 4-94.8 H Specimen clotted. Autoverified. Notified bg#[id number] about corrected reportThis is a corrected result. Previous result was 99.2 fL on 06/28/2019 at 0529 [facility] MEAN CORPUSCULAR HEMOGLOBIN (BEAKER) (test code = 751) 28.1 pg 25.6-32.2 Specimen clotted. Autoverified. Notified bg#[id number] about corrected reportThis is a corrected result. Previous result was 28.1 pg on 06/28/2019 at 0529 COMP[facility] MEAN CORPUSCULAR HEMOGLOBIN CONC (BEAKER) (test code = 752) 28.3 GM/DL 32.2-35.5 L Specimen clotted. Autoverifi ed. Notified bg#[id number] about corrected reportThis is a corrected result. Previous result was 28.3 GM/DL on 06/28/2019 at 0529 [facility] RED CELL DISTRIBUTION WIDTH (BEAKER) (test code = 412) 15.2 % 11.7-14.4 H Specimen clotted. Autoverified. Notified bg#[id number] about corrected reportThis is a corrected result. Previous result was 15.2 % on 06/28/2019 at 0529 COMP[facility] PLATELET COUNT (BEAKER) (test code = 756) 34 K/CU MM 150-450 L Specimen clotted. Autoverified. Notified bg#[id number] about corrected reportThis is a corrected result. Previous result was 34 K/CU MM on 06/28/2019 at 0529 COMPTRO[facility] MEAN PLATELET VOLUME (BEAKER) (test code = 754) 11.2 fL 9.4-12 .3 Specimen clotted. Autoverified. Notified bg#[id number] about corrected reportThis is a corrected result. Previous result was 11.2 fL on 06/28/2019 at 0529 [facility] NUCLEATED RED BLOOD CELLS (BEAKER) (test code = 413) 0 /100 WBC 0 -0 This is a corrected result. Previous result was 0 /100 WBC on 06/28/2019 at 0529 [facility] NEUTROPHILS RELATIVE PERCENT (BEAKER) (test code = 429) 67 % Specimen clotted. Autoverified. Notified bg#[id number] about corrected reportThis is a corrected result. Previous result was 67 % on 06/28/2019 at 0529 [facility] LYMPHOCYTES RELATIVE PERCENT (BEAKER) (test code = 430) 22 % Specimen clotted. Autoverified. Notified bg#[id number] about corrected reportThis is a corrected result. Previous result was 22 % on 06/28/2019 at 0529 [facility] MONOCYTES RELATIVE PERCENT (BEAKER) (test code = 431) 9 % Specimen clotted. Autoverified. Notified bg#[id number] about corrected reportThis is a corrected result. Previous result was 9 % on 06/28/2019 at 0529 [facility] EOSINOPHILS RELATIVE PERCENT (BEAKER) (test code = 432) 1 % Specimen clotted. Autoverified. Notified bg#[id number] about corrected reportThis is a corrected result. Previous result was 1 % on 06/28/2019 at 0529 [facility] BASOPHILS RELATIVE PERCENT (BEAKER) (test code = 437) 0 % Specimen clotted. Autoverified. Notified bg#[id number] about corrected reportThis is a corrected result. Previous result was 0 % on 06/28/2019 at 0529 [facility] NEUTROPHILS ABSOLUTE COUNT (BEAKER) (test code = 670) 3.18 K/ L 1.56-6.13 This is a corrected result. Previous result was 3.18 K/ L on 06/28/2019 at 0529 [facility] LYMPHOCYTES ABSOLUTE COUNT (BEAKER) (test code = 414) 1.06 K/ L 1.18-3.74 L This is a corrected result. Previous result was 1.06 K/ L on 06/28/2019 at 0529 [facility] MONOCYTES ABSOLUTE COUNT (BEAKER) (test code = 415) 0.42 K/ L 0. 24-0.36 H This is a corrected result. Previous result was 0.42 K/ L on 06/28/2019 at 0529 [facility] EOSINOPHILS ABSOLUTE COUNT (BEAKER) (test code = 416) 0.06 K/ L 0.04-0.36 This is a corrected result. Previous result was 0.06 K/ L on 06/28/2019 at 0529 [facility] BASOPHILS ABSOLUTE COUNT (BEAKER) (test code = 417) 0.02 K/ L 0. 01-0.08 This is a corrected result. Previous result was 0.02 K/ L on 06/28/2019 at 0529 [facility] IMMATURE GRANULOCYTES-RELATIVE PERCENT (BEAKER) (test code = 2801) 0 % 0-1 This is a corrected result. Previous result was 0 % on 06/28/2019 at 0529 [facility] BASIC METABOLIC [id number] 06:01:00* Test Item Value Reference Range Interpretation [...] GFR IS NOT APPLICABLE FOR DIALYSIS PATIENTS. [id number] 05:45:00* Test Item Value Reference Range Interpretation Comments PHOSPHORUS (BEAKER) (test code = 604) 6.2 mg/dL 2.3-4.7 H [id number] 05:45:00* Test Item Value Reference Range Interpretation Comments MAGNESIUM (BEAKER) (test code = 627) 2.1 mg/dL 1.6-2.6 POCT-GLUCOSE [id number] 22:59:00* Test Item Value Reference Range Interpretation Comments POC-GLUCOSE METER (BEAKER) (test code = 1538) 154 mg/dL 70-110 H : TESTED AT [address], [address]: Cooker Casing/Catheter Finisher And Inspector ID = [id number] for IVETTE GRAVES POC ACTIVATED CLOTTING [id number] 21:10:00* Test Item Value Reference Range Interpretation Comments Activated Clotting Time (test code = 441) 153 sec Reference Range: 74-137 seconds, Baseline/TESTED AT [place] [id number] [facility] [address] [id number] 21:10:00* Test Item Value Reference Range Interpretation Comments ACTIVATED CLOTTING TIME (BEAKER) (test code = 441) 153 sec Reference Range: 74-137 seconds, Baseline/TESTED AT [place] [address] [facility] [address] [id number] 19:46:00* Test Item Value Reference Range Interpretation Comments ACTIVATED CLOTTING TIME (BEAKER) (test code = 441) 180 sec Reference Range: 74-137 seconds, Baseline/TESTED AT [place] [address] [facility] [address] POCT-GLUCOSE [id number] 18:15:00* Test Item Value Reference Range Interpretation Comments POC-GLUCOSE METER (BEAKER) (test code = 1538) 109 mg/dL 70-110 : TESTED AT [place] [address] [facility], [address]: Cooker Casing/Catheter Finisher And Inspector ID = [id number] for WAQAS ZAMUDIO [id number] 15:57:00* Test Item Value Reference Range Interpretation Comments ACTIVATED CLOTTING TIME (BEAKER) (test code = 441) 312 sec Reference Range: 74-137 seconds, Baseline/TESTED AT [place] [id number] [facility] [address] [id number] 15:24:00* Test Item Value Reference Range Interpretation Comments ACTIVATED CLOTTING TIME (BEAKER) (test code = 441) 285 sec Reference Range: 74-137 seconds, Baseline/TESTED AT [place] [id number] [facility] [address] [id number] 14:44:00* Test Item Value Reference Range Interpretation Comments ACTIVATED CLOTTING TIME (BEAKER) (test code = 441) 285 sec Reference Range: 74-137 seconds, Baseline/TESTED AT [place] [id number] [facility] [address] POTASSIUM-STAT [id number] 12:38:00* Test Item Value Reference Range Interpretation Comments POTASSIUM (BEAKER) (test code = 379) 5.4 meq/L 3.6-5.5 ABDOMEN-1VIEW (KU)2019-06-09 05:02:00 [place] [address] Patient Name: ANGELA JEFFERS MR #: [id number] : 1945 Age/Sex: 74/F Req #: [id number] Adm Physician: Ordered by: TREY RODRIGES MD Report #: [id number] Location: ER Room/Bed: Procedure: [id number] DX/ABDOMEN-1VIEW (KU) Exam Date: 06/09/19 Exam Time: 0400 REPORT [...] 06/09/19504 COPY TO: TREY RODRIGES MD Bedside Cigyuue7911-39-66 15:39:00* Test Item Value Reference Range Interpretation Comments Bedside Glucose (test code = 15242-9) 187 70-120 H Meter ID: [id number] Medical CenterBedside Glucose 2019-06-04 15:39:00* Test Item Value Reference Range Interpretation Comments Bedside Glucose (test code = 94900-9) 187 70-120 H Meter ID: [id number] Regional Hospitalodium Level 2019-06-03 07:56:00* Test Item Value Reference Range Interpretation Comments Sodium Level (test code = 2951-2) 138 136-145 [facility] CenterPotassium Jxpaa9525-51-11 07:56:00* Test Item Value Reference Range Interpretation Comments Potassium Level (test code = 2823-3) 4.2 3.5-5.1 [facility] CenterChloride Bpadf0095-70-95 07:56:00* Test Item Value Reference Range Interpretation Comments Chloride Level (test code = 2075-0) 98 98-107 [facility] CenterCarbon Dioxide Smtmi8088-21-91 07:56:00* Test Item Value Reference Range Interpretation Comments Carbon Dioxide Level (test code = 2028-9) 32 22-29 H [facility] CenterAnion Rkh4455-58-87 07:56:00* Test Item Value Reference Range Interpretation Comments Anion Gap (test code = 91797-7) 12.2 8-16 [facility] CenterBlood Urea Cahkplhx3215-51-89 07:56:00* Test Item Value Reference Range Interpretation Comments Blood Urea Nitrogen (test code = 3094-0) 23 7-26 [facility] CenterCreatinine2019-11-19 07:56:00* Test Item Value Reference Range Interpretation Comments Creatinine (test code = 2160-0) 6.74 0.57-1.11 H [facility] CenterBUN/Creatinine Uvcfx8181-72-06 07:56:00* Test Item Value Reference Range Interpretation Comments BUN/Creatinine Ratio (test code = 3097-3) 3 6-25 L [facility] CenterEstimat Glomerular Filtration Rate 2019-06-03 07:56:00* Test Item Value Reference Range Interpretation Comments Estimat Glomerular Filtration Rate (test code = 990979066) 7 >60 L Ranges were taken from the National Kidney Disease Education Program and the [facility] literature.Reference ranges:60 or greater: Wxxtes43-64 ( for 3 consecutive months): Chronic kidney disease 15 or less: Kidney failureOakBend Medical CenterGlucose Nroyq7258-79-65 07:56:00* Test Item Value Reference Range Interpretation Comments Glucose Level (test code = HUB5673) 124 74-118 H [facility] CenterCalcium Cvefp7194-29-16 07:56:00* Test Item Value Reference Range Interpretation Comments Calcium Level (test code = 39933-0) 7.9 8.4-10.2 L [facility] Hospitalodium Qpltk4965-14-60 07:56:00* Test Item Value Reference Range Interpretation Comments Sodium Level (test code = 2951-2) 138 136-145 [facility] CenterPotassium Ktbfd7555-42-13 07:56:00* Test Item Value Reference Range Interpretation Comments Potassium Level (test code = 2823-3) 4.2 3.5-5.1 [facility] CenterChloride Flofv9144-95-76 07:56:00* Test Item Value Reference Range Interpretation Comments Chloride Level (test code = 2075-0) 98 98-107 [facility] CenterCarbon Dioxide Eaqzg5521-15-72 07:56:00* Test Item Value Reference Range Interpretation Comments Carbon Dioxide Level (test code = 2028-9) 32 22-29 H [facility] CenterAnion Wuo0224-31-79 07:56:00* Test Item Value Reference Range Interpretation Comments Anion Gap (test code = 03196-3) 12.2 8-16 [facility] CenterBlood Urea Bamwdjjp7082-41-13 07:56:00* Test Item Value Reference Range Interpretation Comments Blood Urea Nitrogen (test code = 3094-0) 23 7-26 [facility] CenterCreatinine2019-11-19 07:56:00* Test Item Value Reference Range Interpretation Comments Creatinine (test code = 2160-0) 6.74 0.57-1.11 H [facility] CenterBUN/Creatinine Ycriu0289-13-16 07:56:00* Test Item Value Reference Range Interpretation Comments BUN/Creatinine Ratio (test code = 3097-3) 3 6-25 L [facility] CenterEstimat Glomerular Filtration Rate 2019-06-03 07:56:00* Test Item Value Reference Range Interpretation Comments Estimat Glomerular Filtration Rate (test code = 885843022) 7 >60 L Ranges were taken from the National Kidney Disease Education Program and the [facility] literature.Reference ranges:60 or greater: Uwueiv00-31 ( for 3 consecutive months): Chronic kidney disease 15 or less: Kidney failureOakBend Medical CenterGlucose Uqppu9185-62-90 07:56:00* Test Item Value Reference Range Interpretation Comments Glucose Level (test code = ERT0538) 124 74-118 H [facility] CenterCalcium Enhrx8680-61-70 07:56:00* Test Item Value Reference Range Interpretation Comments Calcium Level (test code = 26209-9) 7.9 8.4-10.2 L [facility] CenterHemoglobin2019-11-19 06:51:00* Test Item Value Reference Range Interpretation Comments Hemoglobin (test code = 97582-8) 9.2 12.0-16.0 L [facility] CenterHematocrit2019-11-19 06:51:00* Test Item Value Reference Range Interpretation Comments Hematocrit (test code = 4544-3) 30.5 34.2-44.1 L [facility] CenterHemoglobin2019-11-19 06:51:00* Test Item Value Reference Range Interpretation Comments Hemoglobin (test code = 05575-6) 9.2 12.0-16.0 L [facility] CenterHematocrit2019-11-19 06:51:00* Test Item Value Reference Range Interpretation Comments Hematocrit (test code = 4544-3) 30.5 34.2-44.1 L [facility] CenterWhite Blood Nwtcm1990-68-87 06:27:00* Test Item Value Reference Range Interpretation Comments White Blood Count (test code = 6690-2) 6.89 4.8-10.8 [facility] CenterRed Blood Wdrzp2703-50-81 06:27:00* Test Item Value Reference Range Interpretation Comments Red Blood Count (test code = 789-8) 2.04 3.6-5.1 L [facility] CenterMean Corpuscular Rpjsfs8157-62-80 06:27:00* Test Item Value Reference Range Interpretation Comments Mean Corpuscular Volume (test code = 787-2) 99.5 81-99 H [facility] CenterMean Corpuscular Jkxepuwpro6034-43-80 06:27:00* Test Item Value Reference Range Interpretation Comments Mean Corpuscular Hemoglobin (test code = 785-6) 29.4 28-32 [facility] CenterMean Corpuscular Hemoglobin Concent 2019-06-03 06:27:00* Test Item Value Reference Range Interpretation Comments Mean Corpuscular Hemoglobin Concent (test code = 786-4) 29.6 31-35 L [facility] CenterRed Cell Distribution Ppxog7008-92-18 06:27:00* Test Item Value Reference Range Interpretation Comments Red Cell Distribution Width (test code = 40715-6) 15.9 11.7 -14.4 H [facility] CenterPlatelet Jdsgd2622-04-11 06:27:00* Test Item Value Reference Range Interpretation Comments Platelet Count (test code = 777-3) 120 140-360 L [facility] CenterNeutrophils (%) (Auto)2019-06-03 06:27:00 * Test Item Value Reference Range Interpretation Comments Neutrophils (%) (Auto) (test code = 62439-2) 71.0 38.7-80.0 [facility] CenterLymphocytes (%) (Auto)2019-06-03 06:27:00 * Test Item Value Reference Range Interpretation Comments Lymphocytes (%) (Auto) (test code = 736-9) 14.2 18.0-39.1 L [facility] CenterMonocytes (%) (Auto)2019-06-03 06:27:00* Test Item Value Reference Range Interpretation Comments Monocytes (%) (Auto) (test code = 5905-5) 10.7 4.4-11.3 [facility] CenterEosinophils (%) (Auto)2019-06-03 06:27:00 * Test Item Value Reference Range Interpretation Comments Eosinophils (%) (Auto) (test code = 713-8) 3.2 0.0-6.0 [facility] CenterBasophils (%) (Auto)2019-06-03 06:27:00* Test Item Value Reference Range Interpretation Comments Basophils (%) (Auto) (test code = 706-2) 0.3 0.0-1.0 [facility] CenterIM GRANULOCYTES %2019-06-03 06:27:00* Test Item Value Reference Range Interpretation Comments IM GRANULOCYTES % (test code = IM GRANULOCYTES %) 0.6 0.0- 1.0 [facility] CenterNeutrophils # (Auto)2019-06-03 06:27:00* Test Item Value Reference Range Interpretation Comments Neutrophils # (Auto) (test code = 751-8) 4.9 2.1-6.9 [facility] CenterLymphocytes # (Auto)2019-06-03 06:27:00* Test Item Value Reference Range Interpretation Comments Lymphocytes # (Auto) (test code = 44764-8) 1.0 1.0-3.2 [facility] CenterMonocytes # (Auto)2019-06-03 06:27:00* Test Item Value Reference Range Interpretation Comments Monocytes # (Auto) (test code = 742-7) 0.7 0.2-0.8 [facility] CenterEosinophils # (Auto)2019-06-03 06:27:00* Test Item Value Reference Range Interpretation Comments Eosinophils # (Auto) (test code = 711-2) 0.2 0.0-0.4 [facility] CenterBasophils # (Auto)2019-06-03 06:27:00* Test Item Value Reference Range Interpretation Comments Basophils # (Auto) (test code = 704-7) 0.0 0.0-0.1 [facility] CenterAbsolute Immature Granulocyte (auto 2019-06-03 06:27:00* Test Item Value Reference Range Interpretation Comments Absolute Immature Granulocyte (auto (toby t code = Absolute Immature Granulocyte (auto) 0.04 0-0.1 [facility] CenterWhite Blood Kaoom6815-34-31 06:27:00* Test Item Value Reference Range Interpretation Comments White Blood Count (test code = 6690-2) 6.89 4.8-10.8 [facility] CenterRed Blood Ofhqw1339-99-91 06:27:00* Test Item Value Reference Range Interpretation Comments Red Blood Count (test code = 789-8) 2.04 3.6-5.1 L [facility] CenterMean Corpuscular Egkyqg3020-85-38 06:27:00* Test Item Value Reference Range Interpretation Comments Mean Corpuscular Volume (test code = 787-2) 99.5 81-99 H [facility] CenterMean Corpuscular Onbjqmkaub9670-04-08 06:27:00* Test Item Value Reference Range Interpretation Comments Mean Corpuscular Hemoglobin (test code = 785-6) 29.4 28-32 [facility] CenterMean Corpuscular Hemoglobin Concent 2019-06-03 06:27:00* Test Item Value Reference Range Interpretation Comments Mean Corpuscular Hemoglobin Concent (test code = 786-4) 29.6 31-35 L [facility] CenterRed Cell Distribution Sdahi2146-72-81 06:27:00* Test Item Value Reference Range Interpretation Comments Red Cell Distribution Width (test code = 16515-6) 15.9 11.7 -14.4 H [facility] CenterPlatelet Oiogg0922-94-94 06:27:00* Test Item Value Reference Range Interpretation Comments Platelet Count (test code = 777-3) 120 140-360 L [facility] CenterNeutrophils (%) (Auto)2019-06-03 06:27:00 * Test Item Value Reference Range Interpretation Comments Neutrophils (%) (Auto) (test code = 01781-2) 71.0 38.7-80.0 [facility] CenterLymphocytes (%) (Auto)2019-06-03 06:27:00 * Test Item Value Reference Range Interpretation Comments Lymphocytes (%) (Auto) (test code = 736-9) 14.2 18.0-39.1 L [facility] CenterMonocytes (%) (Auto)2019-06-03 06:27:00* Test Item Value Reference Range Interpretation Comments Monocytes (%) (Auto) (test code = 5905-5) 10.7 4.4-11.3 [facility] CenterEosinophils (%) (Auto)2019-06-03 06:27:00 * Test Item Value Reference Range Interpretation Comments Eosinophils (%) (Auto) (test code = 713-8) 3.2 0.0-6.0 [facility] CenterBasophils (%) (Auto)2019-06-03 06:27:00* Test Item Value Reference Range Interpretation Comments Basophils (%) (Auto) (test code = 706-2) 0.3 0.0-1.0 [facility] CenterIM GRANULOCYTES %2019-06-03 06:27:00* Test Item Value Reference Range Interpretation Comments IM GRANULOCYTES % (test code = IM GRANULOCYTES %) 0.6 0.0- 1.0 [facility] CenterNeutrophils # (Auto)2019-06-03 06:27:00* Test Item Value Reference Range Interpretation Comments Neutrophils # (Auto) (test code = 751-8) 4.9 2.1-6.9 [facility] CenterLymphocytes # (Auto)2019-06-03 06:27:00* Test Item Value Reference Range Interpretation Comments Lymphocytes # (Auto) (test code = 95006-8) 1.0 1.0-3.2 [facility] CenterMonocytes # (Auto)2019-06-03 06:27:00* Test Item Value Reference Range Interpretation Comments Monocytes # (Auto) (test code = 742-7) 0.7 0.2-0.8 [facility] CenterEosinophils # (Auto)2019-06-03 06:27:00* Test Item Value Reference Range Interpretation Comments Eosinophils # (Auto) (test code = 711-2) 0.2 0.0-0.4 [facility] CenterBasophils # (Auto)2019-06-03 06:27:00* Test Item Value Reference Range Interpretation Comments Basophils # (Auto) (test code = 704-7) 0.0 0.0-0.1 [facility] CenterAbsolute Immature Granulocyte (auto 2019-06-03 06:27:00* Test Item Value Reference Range Interpretation Comments Absolute Immature Granulocyte (auto (toby t code = Absolute Immature Granulocyte (auto) 0.04 0-0.1 [facility] CenterHehenry [facility] Surface Antibody, Quant 2019-06-03 05:12:00* Test Item Value Reference Range Interpretation Comments Hepatitis B Surface Antibody, Quant (test code = 5194-6) 188.0 Immunity>9.9 Status of Immunity Anti-HBs Level Inconsistent with Immunity 0.0 - 9.9Consistent with Immunity >9.9[facility] Surface Hcsrtfg0034-28-42 05:12:00* Test Item Value Reference Range Interpretation Comments Hepatitis B Surface Antigen (test code = 5196-1) Negative Negat jinny [facility] B Core IgM Wktnqwnf2873-99-14 05:12:00* Test Item Value Reference Range Interpretation Comments Hepatitis B Core IgM Antibody (test code = 63939-7) Negative Ne gative Performed at: - [employer] [id number] Director: Ronald Arcos MD, Phone: [phone] [facility] B Surface Antibody, Sagif6538-09-64 05:12:00* Test Item Value Reference Range Interpretation Comments Hepatitis B Surface Antibody, Quant (test code = 5194-6) 188.0 Immunity>9.9 Status of Immunity Anti-HBs Level Inconsistent with Immunity 0.0 - 9.9Consistent with Immunity >9.9[facility] B Surface Qwmnerb4918-29-72 05:12:00* Test Item Value Reference Range Interpretation Comments Hepatitis B Surface Antigen (test code = 5196-1) Negative [facility]at [facility]St[facility] Core IgM Shiajjnm8732-00-65 05:12:00* Test Item Value Reference Range Interpretation Comments Hepatitis B Core IgM Antibody (test code = 00522-7) Negative Ne gative Performed at: [employer] [id number] Director: Ronald Arcos MD, Phone: [phone] [facility] Hospital B Surface Antibody, Iftxs7878-31-07 05:12:00* Test Item Value Reference Range Interpretation Comments Hepatitis B Surface Antibody, Quant (test code = 5194-6) 188.0 Immunity>9.9 Status of Immunity Anti-HBs Level Inconsistent with Immunity 0.0 - 9.9Consistent with Immunity >9.9[facility] B Surface Ktfwgas1438-19-41 05:12:00* Test Item Value Reference Range Interpretation Comments Hepatitis B Surface Antigen (test code = 5196-1) Negative Negat [facility]innySt[facility] B Surface Antibody, Quant 2019-06-03 05:12:00* Test Item Value Reference Range Interpretation Comments Hepatitis B Surface Antibody, Quant (test code = 5194-6) 188.0 Immunity>9.9 Status of Immunity Anti-HBs Level Inconsistent with Immunity 0.0 - 9.9Consistent with Immunity >9.9[facility] Surface Antibody, Lrqzj4527-41-23 05:12:00* Test Item Value Reference Range Interpretation Comments Hepatitis B Surface Antibody, Quant (test code = 5194-6) 188.0 Immunity>9.9 Status of Immunity Anti-HBs Level Inconsistent with Immunity 0.0 - 9.9Consistent with Immunity >9.9[facility] HospitalHIP LEFT 2-3 VW (+/- PELVIS)2019-06-02 17:24:00 [facility] [address] [place] [address] Patient Name: ANGELA JEFFERS MR #: [id number] : 1945 Age/Sex: 74/F Req #: [id number] [facility] Physician: CHERELLE VELASQUEZ MD Ordered by: CHERELLE VELASQUEZ MD Report #: [id number] Location: [facility] Room/Bed: [facility] Procedure: [id number] D X/HIP LEFT 2-3 VW (+/- PELVIS) [...] 06/02/191725 COPY TO: CHERELLE VELASQUEZ MD Phosphorus Ttpyx1505-84-14 06:39:00* Test Item Value Reference Range Interpretation Comments Phosphorus Level (test code = CMB4465) 6.0 2.3-4.7 H [facility] CenterPhosphorus Bibaz1157-14-80 06:39:00* Test Item Value Reference Range Interpretation Comments Phosphorus Level (test code = YPX1516) 6.0 2.3-4.7 H [facility] CenterPhosphorus Xaqwx8619-87-94 06:39:00* Test Item Value Reference Range Interpretation Comments Phosphorus Level (test code = CLM0614) 6.0 2.3-4.7 H [facility] CenterPhosphorus Ciaxc2805-13-10 06:39:00* Test Item Value Reference Range Interpretation Comments Phosphorus Level (test code = IJS4544) 6.0 2.3-4.7 H [facility] CenterPhosphorus Twteo8788-17-08 06:39:00* Test Item Value Reference Range Interpretation Comments Phosphorus Level (test code = HEC2752) 6.0 2.3-4.7 H [facility] CenterCreatine Kinase FU0628-13-35 06:32:00* Test Item Value Reference Range Interpretation Comments Creatine Kinase MB (test code = 54043-6) 3.80 0-5.0 [facility] CenterTroponin A1538-55-48 06:32:00* Test Item Value Reference Range Interpretation Comments Troponin I (test code = QGK1916) 0.079 0-0.300 [facility] CenterCreatine Kinase PU0971-84-71 06:32:00* Test Item Value Reference Range Interpretation Comments Creatine Kinase MB (test code = 52053-3) 3.80 0-5.0 [facility] CenterTroponin F0556-03-95 06:32:00* Test Item Value Reference Range Interpretation Comments Troponin I (test code = KGU9187) 0.079 0-0.300 [facility] CenterCreatine Sfwoth4624-51-99 06:31:00* Test Item Value Reference Range Interpretation Comments Creatine Kinase (test code = 2157-6) 43 29-168 [facility] CenterCreatine Sfzvsn0360-08-25 06:31:00* Test Item Value Reference Range Interpretation Comments Creatine Kinase (test code = 2157-6) 43 29-168 [facility] CenterTotal Pcmquycac8200-22-23 05:57:00* Test Item Value Reference Range Interpretation Comments Total Bilirubin (test code = 1975-2) 0.4 0.2-1.2 [facility] CenterAspartate Amino Transf (AST/SGOT) 2019-06-01 05:57:00* Test Item Value Reference Range Interpretation Comments Aspartate Amino Transf (AST/SGOT) (test code = Aspartate Amino Transf (AST/SGOT)) 11 5-34 [facility] CenterAlanine Aminotransferase (ALT/SGPT) 2019-06-01 05:57:00* Test Item Value Reference Range Interpretation Comments Alanine Aminotransferase (ALT/SGPT) (test code = 1742-6) < 6 0-55 [facility] Mdazqbv2489-05-24 05:57:00* Test Item Value Reference Range Interpretation Comments Total Protein (test code = 2885-2) 7.5 6.5-8.1 [facility] CenterAlbumin2019-11-17 05:57:00* Test Item Value Reference Range Interpretation Comments Albumin (test code = 1751-7) 2.7 3.5-5.0 L [facility] CenterGlobulin2019-11-17 05:57:00* Test Item Value Reference Range Interpretation Comments Globulin (test code = 20227-8) 4.8 2.3-3.5 H [facility] CenterAlbumin/Globulin Ezfps3957-46-20 05:57:00 * Test Item Value Reference Range Interpretation Comments Albumin/Globulin Ratio (test code = 1759-0) 0.6 0.8-2.0 L [facility] CenterAlkaline Javyzuyfgja2184-31-65 05:57:00* Test Item Value Reference Range Interpretation Comments Alkaline Phosphatase (test code = 6768-6) 87 40-150 [facility] CenterTotal Sinwuysvj2413-46-69 05:57:00* Test Item Value Reference Range Interpretation Comments Total Bilirubin (test code = 1975-2) 0.4 0.2-1.2 [facility] CenterAspartate Amino Transf (AST/SGOT) 2019-06-01 05:57:00* Test Item Value Reference Range Interpretation Comments Aspartate Amino Transf (AST/SGOT) (test code = Aspartate Amino Transf (AST/SGOT)) 11 5-34 [facility] CenterAlanine Aminotransferase (ALT/SGPT) 2019-06-01 05:57:00* Test Item Value Reference Range Interpretation Comments Alanine Aminotransferase (ALT/SGPT) (test code = 1742-6) < 6 0-55 [facility] CenterTotal Zzzhxqs3729-05-21 05:57:00* Test Item Value Reference Range Interpretation Comments Total Protein (test code = 2885-2) 7.5 6.5-8.1 [facility] CenterAlbumin2019-11-17 05:57:00* Test Item Value Reference Range Interpretation Comments Albumin (test code = 1751-7) 2.7 3.5-5.0 L [facility] CenterGlobulin2019-11-17 05:57:00* Test Item Value Reference Range Interpretation Comments Globulin (test code = 18857-6) 4.8 2.3-3.5 H [facility] CenterAlbumin/Globulin Ijotq6942-90-57 05:57:00 * Test Item Value Reference Range Interpretation Comments Albumin/Globulin Ratio (test code = 1759-0) 0.6 0.8-2.0 L [facility] CenterAlkaline Tbcuwslvrya8038-28-09 05:57:00* Test Item Value Reference Range Interpretation Comments Alkaline Phosphatase (test code = 6768-6) 87 40-150 [facility] CenterCT PELVIS TG1214-49-66 17:28:00 [facility] [address] [place] [address] Patient Name: ANGELA JEFFERS MR #: [id number] : 1945 Age/Sex: 74/F Req #: [id number] Adm Physician: Ordered by: KODY COLE [employer] PROJECT MANAGER Report #: [id number] Location: ER Room/Bed: Procedure: [id number] CT/CT PELVIS WO Exam Date: 05/31/19 Exam Time: 1555 REPORT STATUS: Signed EXAM: CT P alexandre WITHOUT contrast INDICATION: Left hip pain radiating to the left lower extremity. COMPARISON: None. TECHNIQUE: Pelvis were scanned utilizing a [facility] [employer] helical scanner from the iliac crest to [...] Transcribed By: ARIEL on 05/31/191730 COPY TO: KODY COLE [employer] PROJECT MANAGER Prothrombin Zpth2341-24-34 16:14:00* Test Item Value Reference Range Interpretation Comments Prothrombin Time (test code = 5902-2) 13.5 11.9-14.5 [facility] CenterProthromb Time International Ratio 2019-05-31 16:14:00* Test Item Value Reference Range Interpretation Comments Prothromb Time International Ratio (test code = 6301-6) 0.98 Oral Anticoagulant Therapy INR Values:1. Low Intensity Therapy 1.5 - 2.02 . Moderate Intensity Therapy 2.0 - 3.03. High Intensity Therapy(1) 2.5 - 3. 54. High Intensity Therapy(2) 3.0 - 4.05. Panic Value INR > 5.0 [facility] CenterActivated Partial Thromboplast Time 2019-05-31 16:14:00* Test Item Value Reference Range Interpretation Comments Activated Partial Thromboplast Time (test code = 39838-7) 34.7 23.8-35.5 [facility] CenterProthrombin Hllf1118-42-38 16:14:00* Test Item Value Reference Range Interpretation Comments Prothrombin Time (test code = 5902-2) 13.5 11.9-14.5 [facility] CenterProthromb Time International Ratio 2019-05-31 16:14:00* Test Item Value Reference Range Interpretation Comments Prothromb Time International Ratio (test code = 6301-6) 0.98 Oral Anticoagulant Therapy INR Values:1. Low Intensity Therapy 1.5 - 2.02 . Moderate Intensity Therapy 2.0 - 3.03. High Intensity Therapy(1) 2.5 - 3. 54. High Intensity Therapy(2) 3.0 - 4.05. Panic Value INR > 5.0 [facility] CenterActivated Partial Thromboplast Time 2019-05-31 16:14:00* Test Item Value Reference Range Interpretation Comments Activated Partial Thromboplast Time (test code = 47368-8) 34.7 23.8-35.5 [facility] CenterProthrombin Jdio0186-61-88 16:14:00* Test Item Value Reference Range Interpretation Comments Prothrombin Time (test code = 5902-2) 13.5 11.9-14.5 [facility] CenterProthromb Time International Ratio 2019-05-31 16:14:00* Test Item Value Reference Range Interpretation Comments Prothromb Time International Ratio (test code = 6301-6) 0.98 Oral Anticoagulant Therapy INR Values:1. Low Intensity Therapy 1.5 - 2.02 . Moderate Intensity Therapy 2.0 - 3.03. High Intensity Therapy(1) 2.5 - 3. 54. High Intensity Therapy(2) 3.0 - 4.05. Panic Value INR > 5.0 [facility] CenterActivated Partial Thromboplast Time 2019-05-31 16:14:00* Test Item Value Reference Range Interpretation Comments Activated Partial Thromboplast Time (test code = 18438-0) 34.7 23.8-35.5 [facility] CenterINTR CATH W/TRLUML BALO NCOFJJ6496-18-55 16:04:00 [facility] [address] [place] [address] Patient Name: ANGELA JEFFERS MR #: [id number] : 1945 Age/Sex: 74/F Req #: [id number] Adm Physician: CHERELLE VELASQUEZ MD Ordered by: ISHA DEMARCO MD Report #: [id number] Location: [facility] Room/Bed: 213 Procedure: [id number] IR/INTR CATH W/TRLUML BALO ANGIOP Exam Date: [...] TO MD 09 Transcribed By: ARIEL on 05/30/19 161 COPY TO: ISHA DEMARCO MD HIP LEFT 2-3 VW (+/- PELVIS)2019-05-26 05:09:00 [place] [address] Patient Name: ANGELA JEFFERS MR #: [id number] : 1945 Age/Sex: 74/F Req #: [id number] Adm Physician: Ordered by: XIOMARA TOLENTINO DO Report #: [id number] Location: Room/Bed: Procedure: [id number] DX/HIP LEFT 2-3 VW (+/- PELVIS) Exam [...] 05/26/19513 COPY TO: XIOMARA HAMILTON DO Bedside Eptitqk8517-85-05 00:37:00* Test Item Value Reference Range Interpretation Comments Bedside Glucose (test code = 63230-9) 167 70-120 H Meter ID: [id number] [facility] 17:41:00* Test Item Value Reference Range Interpretation Comments Bedside Glucose (test code = 15607-3) 170 70-120 H Meter ID: [id number] [facility] Vmhtwfw0824-60-04 17:24:00* Test Item Value Reference Range Interpretation Comments B-Type Natriuretic Peptide (test code = 48824-8) 226.4 0-100 H [facility] Uxemkki6508-30-61 17:24:00* Test Item Value Reference Range Interpretation Comments B-Type Natriuretic Peptide (test code = 25380-9) 226.4 0-100 H [facility] CenterBType Natriuretic Upgtbnm0826-13-85 17:24:00* Test Item Value Reference Range Interpretation Comments B-Type Natriuretic Peptide (test code = 23579-5) 226.4 0-100 H [facility] CenterB[facility] Natri[facility]tic Fabgdrf2631-73-00 17:24:00* Test Item Value Reference Range Interpretation Comments B-Type Natriuretic Peptide (test code = 19951-6) 226.4 0-100 H [facility] CenterWhite Blood Hcxym7554-83-79 17:01:00* Test Item Value Reference Range Interpretation Comments White Blood Count (test code = 6690-2) 8.14 4.8-10.8 [facility] CenterRed Blood Oofad7811-45-57 17:01:00* Test Item Value Reference Range Interpretation Comments Red Blood Count (test code = 789-8) 3.62 3.6-5.1 [facility] CenterHemoglobin2019-11-04 17:01:00* Test Item Value Reference Range Interpretation Comments Hemoglobin (test code = 16786-8) 10.6 12.0-16.0 L [facility] CenterHematocrit2019-11-04 17:01:00* Test Item Value Reference Range Interpretation Comments Hematocrit (test code = 4544-3) 33.2 34.2-44.1 L [facility] CenterMean Corpuscular Gkthbe8816-14-77 17:01:00* Test Item Value Reference Range Interpretation Comments Mean Corpuscular Volume (test code = 787-2) 91.7 81-99 [facility] CenterMean Corpuscular Mcbmojcsma0536-92-42 17:01:00* Test Item Value Reference Range Interpretation Comments Mean Corpuscular Hemoglobin (test code = 785-6) 29.3 28-32 [facility] CenterMean Corpuscular Hemoglobin Concent 2019-05-19 17:01:00* Test Item Value Reference Range Interpretation Comments Mean Corpuscular Hemoglobin Concent (test code = 786-4) 31.9 31-35 [facility] CenterRed Cell Distribution Mmelq9296-48-47 17:01:00* Test Item Value Reference Range Interpretation Comments Red Cell Distribution Width (test code = 36408-9) 16.1 11.7 -14.4 H [facility] CenterPlatelet Snegf2358-69-70 17:01:00* Test Item Value Reference Range Interpretation Comments Platelet Count (test code = 777-3) 275 140-360 [facility] CenterNeutrophils (%) (Auto)2019-05-19 17:01:00 * Test Item Value Reference Range Interpretation Comments Neutrophils (%) (Auto) (test code = 78927-6) 72.4 38.7-80.0 [facility] CenterLymphocytes (%) (Auto)2019-05-19 17:01:00 * Test Item Value Reference Range Interpretation Comments Lymphocytes (%) (Auto) (test code = 736-9) 14.0 18.0-39.1 L [facility] CenterMonocytes (%) (Auto)2019-05-19 17:01:00* Test Item Value Reference Range Interpretation Comments Monocytes (%) (Auto) (test code = 5905-5) 8.8 4.4-11.3 [facility] CenterEosinophils (%) (Auto)2019-05-19 17:01:00 * Test Item Value Reference Range Interpretation Comments Eosinophils (%) (Auto) (test code = 713-8) 3.6 0.0-6.0 [facility] CenterBasophils (%) (Auto)2019-05-19 17:01:00* Test Item Value Reference Range Interpretation Comments Basophils (%) (Auto) (test code = 706-2) 0.2 0.0-1.0 [facility] CenterIM GRANULOCYTES %2019-05-19 17:01:00* Test Item Value Reference Range Interpretation Comments IM GRANULOCYTES % (test code = IM GRANULOCYTES %) 1.0 0.0- 1.0 [facility] CenterNeutrophils # (Auto)2019-05-19 17:01:00* Test Item Value Reference Range Interpretation Comments Neutrophils # (Auto) (test code = 751-8) 5.9 2.1-6.9 [facility] CenterLymphocytes # (Auto)2019-05-19 17:01:00* Test Item Value Reference Range Interpretation Comments Lymphocytes # (Auto) (test code = 82164-4) 1.1 1.0-3.2 [facility] CenterMonocytes # (Auto)2019-05-19 17:01:00* Test Item Value Reference Range Interpretation Comments Monocytes # (Auto) (test code = 742-7) 0.7 0.2-0.8 [facility] CenterEosinophils # (Auto)2019-05-19 17:01:00* Test Item Value Reference Range Interpretation Comments Eosinophils # (Auto) (test code = 711-2) 0.3 0.0-0.4 [facility] CenterBasophils # (Auto)2019-05-19 17:01:00* Test Item Value Reference Range Interpretation Comments Basophils # (Auto) (test code = 704-7) 0.0 0.0-0.1 [facility] CenterAbsolute Immature Granulocyte (auto 2019-05-19 17:01:00* Test Item Value Reference Range Interpretation Comments Absolute Immature Granulocyte (auto (toby t code = Absolute Immature Granulocyte (auto) 0.08 0-0.1 [facility] CenterWhite Blood Plmbw5515-58-80 17:01:00* Test Item Value Reference Range Interpretation Comments White Blood Count (test code = 6690-2) 8.14 4.8-10.8 [facility] CenterRed Blood Iwgtj3194-36-39 17:01:00* Test Item Value Reference Range Interpretation Comments Red Blood Count (test code = 789-8) 3.62 3.6-5.1 [facility] CenterHemoglobin2019-11-04 17:01:00* Test Item Value Reference Range Interpretation Comments Hemoglobin (test code = 31036-8) 10.6 12.0-16.0 L [facility] CenterHematocrit2019-11-04 17:01:00* Test Item Value Reference Range Interpretation Comments Hematocrit (test code = 4544-3) 33.2 34.2-44.1 L [facility] CenterMean Corpuscular Kfvnco1565-06-90 17:01:00* Test Item Value Reference Range Interpretation Comments Mean Corpuscular Volume (test code = 787-2) 91.7 81-99 [facility] CenterMean Corpuscular Mlinbsjaaq6299-13-58 17:01:00* Test Item Value Reference Range Interpretation Comments Mean Corpuscular Hemoglobin (test code = 785-6) 29.3 28-32 [facility] CenterMean Corpuscular Hemoglobin Concent 2019-05-19 17:01:00* Test Item Value Reference Range Interpretation Comments Mean Corpuscular Hemoglobin Concent (test code = 786-4) 31.9 31-35 [facility] CenterRed Cell Distribution Ibovv6243-35-08 17:01:00* Test Item Value Reference Range Interpretation Comments Red Cell Distribution Width (test code = 83107-3) 16.1 11.7 -14.4 H [facility] CenterPlatelet Egijf6174-44-85 17:01:00* Test Item Value Reference Range Interpretation Comments Platelet Count (test code = 777-3) 275 140-360 [facility] CenterNeutrophils (%) (Auto)2019-05-19 17:01:00 * Test Item Value Reference Range Interpretation Comments Neutrophils (%) (Auto) (test code = 73446-2) 72.4 38.7-80.0 [facility] CenterLymphocytes (%) (Auto)2019-05-19 17:01:00 * Test Item Value Reference Range Interpretation Comments Lymphocytes (%) (Auto) (test code = 736-9) 14.0 18.0-39.1 L [facility] CenterMonocytes (%) (Auto)2019-05-19 17:01:00* Test Item Value Reference Range Interpretation Comments Monocytes (%) (Auto) (test code = 5905-5) 8.8 4.4-11.3 [facility] CenterEosinophils (%) (Auto)2019-05-19 17:01:00 * Test Item Value Reference Range Interpretation Comments Eosinophils (%) (Auto) (test code = 713-8) 3.6 0.0-6.0 [facility] CenterBasophils (%) (Auto)2019-05-19 17:01:00* Test Item Value Reference Range Interpretation Comments Basophils (%) (Auto) (test code = 706-2) 0.2 0.0-1.0 [facility] CenterIM GRANULOCYTES %2019-05-19 17:01:00* Test Item Value Reference Range Interpretation Comments IM GRANULOCYTES % (test code = IM GRANULOCYTES %) 1.0 0.0- 1.0 [facility] CenterNeutrophils # (Auto)2019-05-19 17:01:00* Test Item Value Reference Range Interpretation Comments Neutrophils # (Auto) (test code = 751-8) 5.9 2.1-6.9 [facility] CenterLymphocytes # (Auto)2019-05-19 17:01:00* Test Item Value Reference Range Interpretation Comments Lymphocytes # (Auto) (test code = 11819-8) 1.1 1.0-3.2 [facility] CenterMonocytes # (Auto)2019-05-19 17:01:00* Test Item Value Reference Range Interpretation Comments Monocytes # (Auto) (test code = 742-7) 0.7 0.2-0.8 [facility] CenterEosinophils # (Auto)2019-05-19 17:01:00* Test Item Value Reference Range Interpretation Comments Eosinophils # (Auto) (test code = 711-2) 0.3 0.0-0.4 [facility] CenterBasophils # (Auto)2019-05-19 17:01:00* Test Item Value Reference Range Interpretation Comments Basophils # (Auto) (test code = 704-7) 0.0 0.0-0.1 [facility] CenterAbsolute Immature Granulocyte (auto 2019-05-19 17:01:00* Test Item Value Reference Range Interpretation Comments Absolute Immature Granulocyte (auto (toby t code = Absolute Immature Granulocyte (auto) 0.08 0-0.1 [facility] CenterProthrombin Tgwt8751-96-08 08:51:00* Test Item Value Reference Range Interpretation Comments Prothrombin Time (test code = 5902-2) 13.6 11.9-14.5 [facility] CenterProthromb Time International Ratio 2019-05-19 08:51:00* Test Item Value Reference Range Interpretation Comments Prothromb Time International Ratio (test code = 6301-6) 0.99 Oral Anticoagulant Therapy INR Values:1. Low Intensity Therapy 1.5 - 2.02 . Moderate Intensity Therapy 2.0 - 3.03. High Intensity Therapy(1) 2.5 - 3. 54. High Intensity Therapy(2) 3.0 - 4.05. Panic Value INR > 5.0 [facility] CenterProthrombin Yknv2047-15-88 08:51:00* Test Item Value Reference Range Interpretation Comments Prothrombin Time (test code = 5902-2) 13.6 11.9-14.5 [facility] CenterProthromb Time International Ratio 2019-05-19 08:51:00* Test Item Value Reference Range Interpretation Comments Prothromb Time International Ratio (test code = 6301-6) 0.99 Oral Anticoagulant Therapy INR Values:1. Low Intensity Therapy 1.5 - 2.02 . Moderate Intensity Therapy 2.0 - 3.03. High Intensity Therapy(1) 2.5 - 3. 54. High Intensity Therapy(2) 3.0 - 4.05. Panic Value INR > 5.0 [facility] CenterBedside Iuwbech2213-21-06 06:57:00* Test Item Value Reference Range Interpretation Comments Bedside Glucose (test code = 39471-4) 129 70-120 H Meter ID: [id number] Regional Hospitalodium Level 2019-05-17 05:49:00* Test Item Value Reference Range Interpretation Comments Sodium Level (test code = 2951-2) 134 136-145 L [facility] CenterPotassium Ypckw7099-87-39 05:49:00* Test Item Value Reference Range Interpretation Comments Potassium Level (test code = 2823-3) 3.8 3.5-5.1 [facility] CenterChloride Dkile3218-35-80 05:49:00* Test Item Value Reference Range Interpretation Comments Chloride Level (test code = 2075-0) 94 98-107 L [facility] CenterCarbon Dioxide Oepkg1778-37-41 05:49:00* Test Item Value Reference Range Interpretation Comments Carbon Dioxide Level (test code = 2028-9) 28 22-29 [facility] CenterAnion Fmu8173-52-72 05:49:00* Test Item Value Reference Range Interpretation Comments Anion Gap (test code = 24377-3) 15.8 8-16 [facility] CenterBlood Urea Wgxoxbts3966-56-98 05:49:00* Test Item Value Reference Range Interpretation Comments Blood Urea Nitrogen (test code = 3094-0) 26 7-26 [facility] CenterCreatinine2019-11-02 05:49:00* Test Item Value Reference Range Interpretation Comments Creatinine (test code = 2160-0) 6.41 0.57-1.11 H [facility] CenterBUN/Creatinine Uikbx3032-32-56 05:49:00* Test Item Value Reference Range Interpretation Comments BUN/Creatinine Ratio (test code = 3097-3) 4 6-25 L [facility] CenterEstimat Glomerular Filtration Rate 2019-05-17 05:49:00* Test Item Value Reference Range Interpretation Comments Estimat Glomerular Filtration Rate (test code = 290169527) 8 >60 L Ranges were taken from the National Kidney Disease Education Program and the [facility] literature.Reference ranges:60 or greater: Rfavuy51-91 ( for 3 consecutive months): Chronic kidney disease 15 or less: Kidney failureOakBend Medical CenterGlucose Nuerd1975-25-57 05:49:00* Test Item Value Reference Range Interpretation Comments Glucose Level (test code = PKZ7563) 142 74-118 H [facility] CenterCalcium Lhhra9966-21-62 05:49:00* Test Item Value Reference Range Interpretation Comments Calcium Level (test code = 14559-5) 8.4 8.4-10.2 [facility] Hospitalodium Xxnbj2895-53-36 05:49:00* Test Item Value Reference Range Interpretation Comments Sodium Level (test code = 2951-2) 134 136-145 L [facility] CenterPotassium Qgasy4386-32-21 05:49:00* Test Item Value Reference Range Interpretation Comments Potassium Level (test code = 2823-3) 3.8 3.5-5.1 [facility] CenterChloride Bxajn0185-05-37 05:49:00* Test Item Value Reference Range Interpretation Comments Chloride Level (test code = 2075-0) 94 98-107 L [facility] CenterCarbon Dioxide Shnvs2477-79-71 05:49:00* Test Item Value Reference Range Interpretation Comments Carbon Dioxide Level (test code = 2028-9) 28 22-29 [facility] CenterAnion Taa0052-70-66 05:49:00* Test Item Value Reference Range Interpretation Comments Anion Gap (test code = 52826-6) 15.8 8-16 [facility] CenterBlood Urea Agfmgckj2231-42-40 05:49:00* Test Item Value Reference Range Interpretation Comments Blood Urea Nitrogen (test code = 3094-0) 26 7-26 [facility] CenterCreatinine2019-11-02 05:49:00* Test Item Value Reference Range Interpretation Comments Creatinine (test code = 2160-0) 6.41 0.57-1.11 H [facility] CenterBUN/Creatinine Mcnil2844-06-58 05:49:00* Test Item Value Reference Range Interpretation Comments BUN/Creatinine Ratio (test code = 3097-3) 4 6-25 L [facility] CenterEstimat Glomerular Filtration Rate 2019-05-17 05:49:00* Test Item Value Reference Range Interpretation Comments Estimat Glomerular Filtration Rate (test code = 411025579) 8 >60 L Ranges were taken from the National Kidney Disease Education Program and the [facility] Foundation literature.Reference ranges:60 or greater: Khvnsj27-17 ( for 3 consecutive months): Chronic kidney disease 15 or less: Kidney failureOakBend Medical CenterGlucose Ghcig0327-73-27 05:49:00* Test Item Value Reference Range Interpretation Comments Glucose Level (test code = IUP0652) 142 74-118 H [facility] CenterCalcium Mbars4488-39-43 05:49:00* Test Item Value Reference Range Interpretation Comments Calcium Level (test code = 37267-6) 8.4 8.4-10.2 [facility] Hospitalodium Byozd7370-64-89 05:49:00* Test Item Value Reference Range Interpretation Comments Sodium Level (test code = 2951-2) 134 136-145 L [facility] CenterPotassium Fegtn9790-43-35 05:49:00* Test Item Value Reference Range Interpretation Comments Potassium Level (test code = 2823-3) 3.8 3.5-5.1 [facility] CenterChloride Xcedd9346-78-82 05:49:00* Test Item Value Reference Range Interpretation Comments Chloride Level (test code = 2075-0) 94 98-107 L [facility] CenterCarbon Dioxide Zkccf1688-11-22 05:49:00* Test Item Value Reference Range Interpretation Comments Carbon Dioxide Level (test code = 2028-9) 28 22-29 [facility] CenterAnion Bvc5909-93-49 05:49:00* Test Item Value Reference Range Interpretation Comments Anion Gap (test code = 54487-6) 15.8 8-16 [facility] CenterBlood Urea Pdemiyms7609-69-35 05:49:00* Test Item Value Reference Range Interpretation Comments Blood Urea Nitrogen (test code = 3094-0) 26 7-26 [facility] CenterCreatinine2019-11-02 05:49:00* Test Item Value Reference Range Interpretation Comments Creatinine (test code = 2160-0) 6.41 0.57-1.11 H [facility] CenterBUN/Creatinine Uvguy7196-25-30 05:49:00* Test Item Value Reference Range Interpretation Comments BUN/Creatinine Ratio (test code = 3097-3) 4 6-25 L [facility] CenterEstimat Glomerular Filtration Rate 2019-05-17 05:49:00* Test Item Value Reference Range Interpretation Comments Estimat Glomerular Filtration Rate (test code = 438371204) 8 >60 L Ranges were taken from the National Kidney Disease Education Program and the [facility] Kidney Foundation literature.Reference ranges:60 or greater: Nfmkyb55-79 ( for 3 consecutive months): Chronic kidney disease 15 or less: Kidney failureOakBend Medical CenterGlucose Esbkp5033-86-65 05:49:00* Test Item Value Reference Range Interpretation Comments Glucose Level (test code = IDB9248) 142 74-118 H [facility] CenterCalcium Dgors3845-62-89 05:49:00* Test Item Value Reference Range Interpretation Comments Calcium Level (test code = 32706-9) 8.4 8.4-10.2 [facility] CenterWhite Blood Lbyxz6241-43-22 05:31:00* Test Item Value Reference Range Interpretation Comments White Blood Count (test code = 6690-2) 8.26 4.8-10.8 [facility] CenterRed Blood Urimf4921-27-61 05:31:00* Test Item Value Reference Range Interpretation Comments Red Blood Count (test code = 789-8) 3.40 3.6-5.1 L [facility] CenterHemoglobin2019-11-02 05:31:00* Test Item Value Reference Range Interpretation Comments Hemoglobin (test code = 26891-7) 10.1 12.0-16.0 L [facility] CenterHematocrit2019-11-02 05:31:00* Test Item Value Reference Range Interpretation Comments Hematocrit (test code = 4544-3) 32.6 34.2-44.1 L [facility] CenterMean Corpuscular Tuablz8785-41-02 05:31:00* Test Item Value Reference Range Interpretation Comments Mean Corpuscular Volume (test code = 787-2) 95.9 81-99 [facility] CenterMean Corpuscular Pfqpuyqnyf8430-28-33 05:31:00* Test Item Value Reference Range Interpretation Comments Mean Corpuscular Hemoglobin (test code = 785-6) 29.7 28-32 [facility] CenterMean Corpuscular Hemoglobin Concent 2019-05-17 05:31:00* Test Item Value Reference Range Interpretation Comments Mean Corpuscular Hemoglobin Concent (test code = 786-4) 31.0 31-35 [facility] CenterRed Cell Distribution Traai8204-47-57 05:31:00* Test Item Value Reference Range Interpretation Comments Red Cell Distribution Width (test code = 33908-5) 16.5 11.7 -14.4 H [facility] CenterPlatelet Fanbn3888-96-92 05:31:00* Test Item Value Reference Range Interpretation Comments Platelet Count (test code = 777-3) 288 140-360 [facility] CenterNeutrophils (%) (Auto)2019-05-17 05:31:00 * Test Item Value Reference Range Interpretation Comments Neutrophils (%) (Auto) (test code = 88189-3) 64.9 38.7-80.0 [facility] CenterLymphocytes (%) (Auto)2019-05-17 05:31:00 * Test Item Value Reference Range Interpretation Comments Lymphocytes (%) (Auto) (test code = 736-9) 18.4 18.0-39.1 [facility] CenterMonocytes (%) (Auto)2019-05-17 05:31:00* Test Item Value Reference Range Interpretation Comments Monocytes (%) (Auto) (test code = 5905-5) 11.9 4.4-11.3 H [facility] CenterEosinophils (%) (Auto)2019-05-17 05:31:00 * Test Item Value Reference Range Interpretation Comments Eosinophils (%) (Auto) (test code = 713-8) 3.5 0.0-6.0 [facility] CenterBasophils (%) (Auto)2019-05-17 05:31:00* Test Item Value Reference Range Interpretation Comments Basophils (%) (Auto) (test code = 706-2) 0.5 0.0-1.0 [facility] CenterIM GRANULOCYTES %2019-05-17 05:31:00* Test Item Value Reference Range Interpretation Comments IM GRANULOCYTES % (test code = IM GRANULOCYTES %) 0.8 0.0- 1.0 [facility] CenterNeutrophils # (Auto)2019-05-17 05:31:00* Test Item Value Reference Range Interpretation Comments Neutrophils # (Auto) (test code = 751-8) 5.4 2.1-6.9 [facility] CenterLymphocytes # (Auto)2019-05-17 05:31:00* Test Item Value Reference Range Interpretation Comments Lymphocytes # (Auto) (test code = 76818-6) 1.5 1.0-3.2 [facility] CenterMonocytes # (Auto)2019-05-17 05:31:00* Test Item Value Reference Range Interpretation Comments Monocytes # (Auto) (test code = 742-7) 1.0 0.2-0.8 H [facility] CenterEosinophils # (Auto)2019-05-17 05:31:00* Test Item Value Reference Range Interpretation Comments Eosinophils # (Auto) (test code = 711-2) 0.3 0.0-0.4 [facility] CenterBasophils # (Auto)2019-05-17 05:31:00* Test Item Value Reference Range Interpretation Comments Basophils # (Auto) (test code = 704-7) 0.0 0.0-0.1 [facility] CenterAbsolute Immature Granulocyte (auto 2019-05-17 05:31:00* Test Item Value Reference Range Interpretation Comments Absolute Immature Granulocyte (auto (toby t code = Absolute Immature Granulocyte (auto) 0.07 0-0.1 [facility] A IgM Semraplu2471-92-17 22:26:00* Test Item Value Reference Range Interpretation Comments Hepatitis A IgM Antibody (test code = 39176-6) Negative Negativ e [facility] B Surface Yqvvoam2942-52-45 22:26:00* Test Item Value Reference Range Interpretation Comments Hepatitis B Surface Antigen (test code = 5196-1) Negative Negat jinny [facility] B Core IgM Nmgcezrf9448-11-64 22:26:00* Test Item Value Reference Range Interpretation Comments Hepatitis B Core IgM Antibody (test code = 08877-8) Negative Ne gative [facility] C Pezoeqct5368-66-60 22:26:00* Test Item Value Reference Range Interpretation Comments Hepatitis C Antibody (test code = 53011-4) <0.1 0.0-0.9 Negative: < 0.8 Indeterminate: 0.8 - 0.9 Positive: > 0.9 The CDC recommends that a positive HCV antibody result be followed up with a HCV Nucleic Acid Amplification test (907909).Performed at: [address] [id number] Director: Ronald Arcos MD, Phone: [phone] Memorial Hospital A IgM Antibody 2019-05-16 22:26:00* Test Item Value Reference Range Interpretation Comments Hepatitis A IgM Antibody (test code = 50779-4) Negative Negativ [facility] B Surface Brhyfte2261-60-12 22:26:00* Test Item Value Reference Range Interpretation Comments Hepatitis B Surface Antigen (test code = 5196-1) Negative Negat jinny [facility] B Core IgM Xywnyhgp6258-18-78 22:26:00* Test Item Value Reference Range Interpretation Comments Hepatitis B Core IgM Antibody (test code = 20214-0) Negative Ne gative [facility] C Snvhegqf5438-35-77 22:26:00* Test Item Value Reference Range Interpretation Comments Hepatitis C Antibody (test code = 89301-3) <0.1 0.0-0.9 Negative: < 0.8 Indeterminate: 0.8 - 0.9 Positive: > 0.9 The CDC recommends that a positive HCV antibody result be followed up with a HCV Nucleic Acid Amplification test (779480).Performed at: [facility] [id number] Director: Ronald Arcos MD, Phone: [phone] Memorial Hospital A IgM Antibody 2019-05-16 22:26:00* Test Item Value Reference Range Interpretation Comments Hepatitis A IgM Antibody (test code = 94554-3) Negative Negativ [facility] B Surface Akvgikq4231-18-74 22:26:00* Test Item Value Reference Range Interpretation Comments Hepatitis B Surface Antigen (test code = 5196-1) Negative Negat jinny [facility] B Core IgM Pxroxcpf9520-55-30 22:26:00* Test Item Value Reference Range Interpretation Comments Hepatitis B Core IgM Antibody (test code = 76258-4) Negative Ne gative [facility] C Cpgzuluw4036-46-48 22:26:00* Test Item Value Reference Range Interpretation Comments Hepatitis C Antibody (test code = 03034-5) <0.1 0.0-0.9 Negative: < 0.8 Indeterminate: 0.8 - 0.9 Positive: > 0.9 The CDC recommends that a positive HCV antibody result be followed up with a HCV Nucleic Acid Amplification test (449679).Performed at: [facility] [id number] Director: Ronald Arcos MD, Phone: [phone] Memorial Hospital A IgM Antibody 2019-05-16 22:26:00* Test Item Value Reference Range Interpretation Comments Hepatitis A IgM Antibody (test code = 08514-2) Negative Negativ [facility] C Cgrxwvxd3987-99-60 22:26:00* Test Item Value Reference Range Interpretation Comments Hepatitis C Antibody (test code = 90723-4) <0.1 0.0-0.9 Negative: < 0.8 Indeterminate: 0.8 - 0.9 Positive: > 0.9 The CDC recommends that a positive HCV antibody result be followed up with a HCV Nucleic Acid Amplification test (956113).Performed at: [employer] [id number] Director: Ronald Arcos MD, Phone: [phone] Memorial Hospital A IgM Antibody 2019-05-16 22:26:00* Test Item Value Reference Range Interpretation Comments Hepatitis A IgM Antibody (test code = 87046-7) Negative Negativ [facility] C Qeimflsm4123-41-99 22:26:00* Test Item Value Reference Range Interpretation Comments Hepatitis C Antibody (test code = 21162-8) <0.1 0.0-0.9 Negative: < 0.8 Indeterminate: 0.8 - 0.9 Positive: > 0.9 The CDC recommends that a positive HCV antibody result be followed up with a HCV Nucleic Acid Amplification test (987498).Performed at: [address] [id number] Director: Ronald Arcos MD, Phone: [phone] Memorial Hospital A IgM Antibody 2019-05-16 22:26:00* Test Item Value Reference Range Interpretation Comments Hepatitis A IgM Antibody (test code = 15815-9) [facility] Nxnzticq0191-17-40 22:26:00* Test Item Value Reference Range Interpretation Comments Hepatitis C Antibody (test code = 46560-3) <0.1 0.0-0.9 Negative: < 0.8 Indeterminate: 0.8 - 0.9 Positive: > 0.9 The CDC recommends that a positive HCV antibody result be followed up with a HCV Nucleic Acid Amplification test (502619).Performed at: [address] [id number] Director: Ronald Arcos MD, Phone: [phone] Memorial Hospital A IgM Antibody 2019-05-16 22:26:00* Test Item Value Reference Range Interpretation Comments Hepatitis A IgM Antibody (test code = 29191-5) [facility] Lukolhcf7598-48-02 22:26:00* Test Item Value Reference Range Interpretation Comments Hepatitis C Antibody (test code = 99229-5) <0.1 0.0-0.9 Negative: < 0.8 Indeterminate: 0.8 - 0.9 Positive: > 0.9 The CDC recommends that a positive HCV antibody result be followed up with a HCV Nucleic Acid Amplification test (175209).Performed at: [address] [id number] Director: Ronald Arcos MD, Phone: [phone] Medical CenterHehenry [facility] A IgM Antibody 2019-05-16 22:26:00* Test Item Value Reference Range Interpretation Comments Hepatitis A IgM Antibody (test code = 64700-0) Negative Negativ e [facility] C Udknlbve5393-46-13 22:26:00* Test Item Value Reference Range Interpretation Comments Hepatitis C Antibody (test code = 46425-3) <0.1 0.0-0.9 Negative: < 0.8 Indeterminate: 0.8 - 0.9 Positive: > 0.9 The CDC recommends that a positive HCV antibody result be followed up with a HCV Nucleic Acid Amplification test (139952).Performed at: [facility] [id number] Director: Ronald Arcos MD, Phone: [phone] Medical CenterFr Thyroxine Kfhqb8637-70-74 07:07:00* Test Item Value Reference Range Interpretation Comments Free Thyroxine Index (test code = 28104-2) 0.7797 1.4-3.8 L [facility] CenterThyroxine (T4)2019-05-15 07:07:00* Test Item Value Reference Range Interpretation Comments Thyroxine (T4) (test code = 3026-2) 2.43 4.5-10.9 L Our current method for Total T4 is not recommended for use as the only marker fo r evaluating patients for thyroid disorders.[facility] CenterTriiodothyronine (T3) Buusok8460-53-33 07:07:00* Test Item Value Reference Range Interpretation Comments Triiodothyronine (T3) Uptake (test code = 3050-2) 32.09 22.5 -37.0 [facility] CenterThyroid Stimulating Hormone (TSH) 2019-05-15 07:07:00* Test Item Value Reference Range Interpretation Comments Thyroid Stimulating Hormone (TSH) (test code = 13784-8) 30.194 0.350-4.940 H [facility] CenterFree Thyroxine Kjuzl9510-92-09 07:07:00* Test Item Value Reference Range Interpretation Comments Free Thyroxine Index (test code = 31429-0) 0.7797 1.4-3.8 L [facility] CenterThyroxine (T4)2019-05-15 07:07:00* Test Item Value Reference Range Interpretation Comments Thyroxine (T4) (test code = 3026-2) 2.43 4.5-10.9 L Our current method for Total T4 is not recommended for use as the only marker fo r evaluating patients for thyroid disorders.[facility] CenterTriiodothyronine (T3) Dgtkuy8082-42-94 07:07:00* Test Item Value Reference Range Interpretation Comments Triiodothyronine (T3) Uptake (test code = 3050-2) 32.09 22.5 -37.0 [facility] CenterThyroid Stimulating Hormone (TSH) 2019-05-15 07:07:00* Test Item Value Reference Range Interpretation Comments Thyroid Stimulating Hormone (TSH) (test code = 58927-5) 30.194 0.350-4.940 H [facility] CenterFr Thyroxine Jgiag2384-46-11 07:07:00* Test Item Value Reference Range Interpretation Comments Free Thyroxine Index (test code = 50035-3) 0.7797 1.4-3.8 L [facility] CenterThyroxine (T4)2019-05-15 07:07:00* Test Item Value Reference Range Interpretation Comments Thyroxine (T4) (test code = 3026-2) 2.43 4.5-10.9 L Our current method for Total T4 is not recommended for use as the only marker fo r evaluating patients for thyroid disorders.[facility] CenterTriiodothyronine (T3) Fkjfkh6742-69-17 07:07:00* Test Item Value Reference Range Interpretation Comments Triiodothyronine (T3) Uptake (test code = 3050-2) 32.09 22.5 -37.0 [facility] CenterThyroid Stimulating Hormone (TSH) 2019-05-15 07:07:00* Test Item Value Reference Range Interpretation Comments Thyroid Stimulating Hormone (TSH) (test code = 33479-9) 30.194 0.350-4.940 H [facility] Thyroxine Dcvkt8713-23-64 07:07:00* Test Item Value Reference Range Interpretation Comments Free Thyroxine Index (test code = 93201-5) 0.7797 1.4-3.8 L [facility] CenterThyroxine (T4)2019-05-15 07:07:00* Test Item Value Reference Range Interpretation Comments Thyroxine (T4) (test code = 3026-2) 2.43 4.5-10.9 L Our current method for Total T4 is not recommended for use as the only marker fo r evaluating patients for thyroid disorders.[facility] CenterTriiodothyronine (T3) Bytzdm7483-64-87 07:07:00* Test Item Value Reference Range Interpretation Comments Triiodothyronine (T3) Uptake (test code = 3050-2) 32.09 22.5 -37.0 [facility] CenterThyroid Stimulating Hormone (TSH) 2019-05-15 07:07:00* Test Item Value Reference Range Interpretation Comments Thyroid Stimulating Hormone (TSH) (test code = 77689-3) 30.194 0.350-4.940 H [facility] CenterFree Thyroxine Rvbcp7358-49-32 07:07:00* Test Item Value Reference Range Interpretation Comments Free Thyroxine Index (test code = 38450-6) 0.7797 1.4-3.8 L [facility] CenterThyroxine (T4)2019-05-15 07:07:00* Test Item Value Reference Range Interpretation Comments Thyroxine (T4) (test code = 3026-2) 2.43 4.5-10.9 L Our current method for Total T4 is not recommended for use as the only marker fo r evaluating patients for thyroid disorders.[facility] CenterTriiodothyronine (T3) Mxdram0441-15-04 07:07:00* Test Item Value Reference Range Interpretation Comments Triiodothyronine (T3) Uptake (test code = 3050-2) 32.09 22.5 -37.0 [facility] CenterThyroid Stimulating Hormone (TSH) 2019-05-15 07:07:00* Test Item Value Reference Range Interpretation Comments Thyroid Stimulating Hormone (TSH) (test code = 62755-4) 30.194 0.350-4.940 H [facility] CenterFr Thyroxine Gmgdy6342-97-18 07:07:00* Test Item Value Reference Range Interpretation Comments Free Thyroxine Index (test code = 92031-1) 0.7797 1.4-3.8 L [facility] CenterThyroxine (T4)2019-05-15 07:07:00* Test Item Value Reference Range Interpretation Comments Thyroxine (T4) (test code = 3026-2) 2.43 4.5-10.9 L Our current method for Total T4 is not recommended for use as the only marker fo r evaluating patients for thyroid disorders.[facility] CenterTriiodothyronine (T3) Qadpkk2739-00-86 07:07:00* Test Item Value Reference Range Interpretation Comments Triiodothyronine (T3) Uptake (test code = 3050-2) 32.09 22.5 -37.0 [facility] CenterThyroid Stimulating Hormone (TSH) 2019-05-15 07:07:00* Test Item Value Reference Range Interpretation Comments Thyroid Stimulating Hormone (TSH) (test code = 98822-0) 30.194 0.350-4.940 H [facility] CenterFr Thyroxine Zvadl9274-34-23 07:07:00* Test Item Value Reference Range Interpretation Comments Free Thyroxine Index (test code = 06168-3) 0.7797 1.4-3.8 L [facility] CenterThyroxine (T4)2019-05-15 07:07:00* Test Item Value Reference Range Interpretation Comments Thyroxine (T4) (test code = 3026-2) 2.43 4.5-10.9 L Our current method for Total T4 is not recommended for use as the only marker fo r evaluating patients for thyroid disorders.[facility] CenterTriiodothyronine (T3) Jqdzwi7270-87-25 07:07:00* Test Item Value Reference Range Interpretation Comments Triiodothyronine (T3) Uptake (test code = 3050-2) 32.09 22.5 -37.0 [facility] CenterThyroid Stimulating Hormone (TSH) 2019-05-15 07:07:00* Test Item Value Reference Range Interpretation Comments Thyroid Stimulating Hormone (TSH) (test code = 05258-9) 30.194 0.350-4.940 H [facility] CenterFree Thyroxine Nzdby1442-78-07 07:07:00* Test Item Value Reference Range Interpretation Comments Free Thyroxine Index (test code = 28668-3) 0.7797 1.4-3.8 L [facility] CenterThyroxine (T4)2019-05-15 07:07:00* Test Item Value Reference Range Interpretation Comments Thyroxine (T4) (test code = 3026-2) 2.43 4.5-10.9 L Our current method for Total T4 is not recommended for use as the only marker fo r evaluating patients for thyroid disorders.[facility] CenterTriiodothyronine (T3) Oksbgu6262-84-19 07:07:00* Test Item Value Reference Range Interpretation Comments Triiodothyronine (T3) Uptake (test code = 3050-2) 32.09 22.5 -37.0 [facility] CenterThyroid Stimulating Hormone (TSH) 2019-05-15 07:07:00* Test Item Value Reference Range Interpretation Comments Thyroid Stimulating Hormone (TSH) (test code = 80906-7) 30.194 0.350-4.940 H [facility] CenterTotal Idnloscor2815-65-32 06:31:00* Test Item Value Reference Range Interpretation Comments Total Bilirubin (test code = 1975-2) 0.2 0.2-1.2 [facility] CenterAspartate Amino Transf (AST/SGOT) 2019-05-15 06:31:00* Test Item Value Reference Range Interpretation Comments Aspartate Amino Transf (AST/SGOT) (test code = Aspartate Amino Transf (AST/SGOT)) 18 5-34 [facility] CenterAlanine Aminotransferase (ALT/SGPT) 2019-05-15 06:31:00* Test Item Value Reference Range Interpretation Comments Alanine Aminotransferase (ALT/SGPT) (test code = 1742-6) 13 0-55 [facility] CenterTotal Pkcwzmo7217-50-69 06:31:00* Test Item Value Reference Range Interpretation Comments Total Protein (test code = 2885-2) 7.0 6.5-8.1 [facility] CenterAlbumin2019-10-31 06:31:00* Test Item Value Reference Range Interpretation Comments Albumin (test code = 1751-7) 2.2 3.5-5.0 L [facility] CenterGlobulin2019-10-31 06:31:00* Test Item Value Reference Range Interpretation Comments Globulin (test code = 47601-7) 4.8 2.3-3.5 H [facility] CenterAlbumin/Globulin Zdzmg5738-55-64 06:31:00 * Test Item Value Reference Range Interpretation Comments Albumin/Globulin Ratio (test code = 1759-0) 0.5 0.8-2.0 L [facility] CenterAlkaline Apsidjwatdg5593-51-27 06:31:00* Test Item Value Reference Range Interpretation Comments Alkaline Phosphatase (test code = 6768-6) 132 40-150 [facility] CenterTotal Pwzqmblid1590-46-77 06:31:00* Test Item Value Reference Range Interpretation Comments Total Bilirubin (test code = 1975-2) 0.2 0.2-1.2 [facility] CenterAspartate Amino Transf (AST/SGOT) 2019-05-15 06:31:00* Test Item Value Reference Range Interpretation Comments Aspartate Amino Transf (AST/SGOT) (test code = Aspartate Amino Transf (AST/SGOT)) 18 5-34 [facility] CenterAlanine Aminotransferase (ALT/SGPT) 2019-05-15 06:31:00* Test Item Value Reference Range Interpretation Comments Alanine Aminotransferase (ALT/SGPT) (test code = 1742-6) 13 0-55 [facility] CenterTotal Acapnzu2834-17-49 06:31:00* Test Item Value Reference Range Interpretation Comments Total Protein (test code = 2885-2) 7.0 6.5-8.1 [facility] CenterAlbumin2019-10-31 06:31:00* Test Item Value Reference Range Interpretation Comments Albumin (test code = 1751-7) 2.2 3.5-5.0 L [facility] CenterGlobulin2019-10-31 06:31:00* Test Item Value Reference Range Interpretation Comments Globulin (test code = 65510-3) 4.8 2.3-3.5 H [facility] CenterAlbumin/Globulin Wgnjq3425-96-41 06:31:00 * Test Item Value Reference Range Interpretation Comments Albumin/Globulin Ratio (test code = 1759-0) 0.5 0.8-2.0 L [facility] CenterAlkaline Lbkjbphmbck6892-67-53 06:31:00* Test Item Value Reference Range Interpretation Comments Alkaline Phosphatase (test code = 6768-6) 132 40-150 [facility] CenterTotal Syhlzlssb7319-19-46 06:31:00* Test Item Value Reference Range Interpretation Comments Total Bilirubin (test code = 1975-2) 0.2 0.2-1.2 [facility] CenterAspartate Amino Transf (AST/SGOT) 2019-05-15 06:31:00* Test Item Value Reference Range Interpretation Comments Aspartate Amino Transf (AST/SGOT) (test code = Aspartate Amino Transf (AST/SGOT)) 18 5-34 [facility] CenterAlanine Aminotransferase (ALT/SGPT) 2019-05-15 06:31:00* Test Item Value Reference Range Interpretation Comments Alanine Aminotransferase (ALT/SGPT) (test code = 1742-6) 13 0-55 [facility] CenterTotal Dezaiar4016-34-60 06:31:00* Test Item Value Reference Range Interpretation Comments Total Protein (test code = 2885-2) 7.0 6.5-8.1 [facility] CenterAlbumin2019-10-31 06:31:00* Test Item Value Reference Range Interpretation Comments Albumin (test code = 1751-7) 2.2 3.5-5.0 L [facility] CenterGlobulin2019-10-31 06:31:00* Test Item Value Reference Range Interpretation Comments Globulin (test code = 76898-8) 4.8 2.3-3.5 H [facility] CenterAlbumin/Globulin Irygp9655-76-61 06:31:00 * Test Item Value Reference Range Interpretation Comments Albumin/Globulin Ratio (test code = 1759-0) 0.5 0.8-2.0 L [facility] CenterAlkaline Tjdxkxslkxi9948-22-69 06:31:00* Test Item Value Reference Range Interpretation Comments Alkaline Phosphatase (test code = 6768-6) 132 40-150 [facility] CenterCT ABDOMEN/PELVIS BK6570-95-73 16:53:00 [facility] [address] [address] Patient Name: ANGELA JEFFERS MR #: [id number] : 1945 Age/Sex: 74/F Req #: [id number] Adm Physician: Ordered by: ROSS CHI [employer]NA[employer] Report #: [id number] Location: ER Room/Bed: Procedure: [id number] CT/CT ABDOMEN/PELVIS WO Exam Date: 05/14/19 Exam [...] the rectum. No significant change compared to 9 in wall thickening and pericolonic fat stranding [...] 05/14/191705 COPY TO: ROSS CHI NP Magnesium Auilw2062-14-01 12:48:00* Test Item Value Reference Range Interpretation Comments Magnesium Level (test code = 56872-8) 2.1 1.3-2.1 [facility] CenterMagnesium Dbuwe7174-59-80 12:48:00* Test Item Value Reference Range Interpretation Comments Magnesium Level (test code = 46193-7) 2.1 1.3-2.1 [facility] Fnnlx1031-15-94 12:48:00* Test Item Value Reference Range Interpretation Comments Magnesium Level (test code = 38925-5) 2.1 1.3-2.1 [facility]2019-10-30 12:48:00* Test Item Value Reference Range Interpretation Comments Magnesium Level (test code = 09834-3) 2.1 1.3-2.1 [facility] Belhp0396-73-84 12:48:00* Test Item Value Reference Range Interpretation Comments Magnesium Level (test code = 60097-8) 2.1 1.3-2.1 [facility]2019-10-30 12:48:00* Test Item Value Reference Range Interpretation Comments Magnesium Level (test code = 90213-2) 2.1 1.3-2.1 [facility]2019-10-30 12:48:00* Test Item Value Reference Range Interpretation Comments Magnesium Level (test code = 54355-5) 2.1 1.3-2.1 [facility]2019-10-30 12:48:00* Test Item Value Reference Range Interpretation Comments Magnesium Level (test code = 04586-6) 2.1 1.3-[address] (KUB)2019-05-13 00:53:[address] [place] [address] Patient Name: ANGELA JEFFERS MR #: [id number] : 1945 Age/Sex: 74/F Req #: [id number] Adm Physician: Ordered by: TREY RODRIGES MD Report #: [id number] Location: ER Room/Bed: Procedure: [id number] 0070 DX/ABDOMEN-1VIEW (KUB) Exam Date: 05/12/19 Exam Time: 2328 REPORT STATUS: Signed EXAM: Abdomen Radiograph 1 [...] TO: TREY RODRIGES MD ABDOMEN-1VIEW (KUB)2019-05-12 21:26:00 [address] [address] Patient Name: ANGELA JEFFERS MR #: [id number] : 1945 Age/Sex: 74/F Req #: [id number] Adm Physician: Ordered by: TREY RODRIGES MD Report #: [id number] Location: ER Room/Bed: Procedure: 1028- 0066 DX/ABDOMEN-1VIEW (KUB) Exam Date: 05/12/19 Exam Time: 2024 REPORT [...] in the spin e, hips, and pelvis. Omar project in the lower mid pelvis. IMPRESSI ON: Significant stool burden within the rectum, greater than that seen on , and moderate stool burden in the colon. Fecal impaction is possible. Signed by: Emilia Morton DO on 05/12/2019 9:29 PM Dictated By: RAHUL MORTON DO 28 Transcribed By: ARIEL on 05/12/192128 COPY TO: TREY RODRIGES MD CT ABDOMEN/PELVIS WH4436-98-00 06:53:[address] [address] Patient Name: ANGELA JEFFERS MR #: [id number] : 1945 Age/Sex: 73/F Req #: [id number] Adm Physician: Ordered by: TREY RODRIGES MD Report #: [id number] Location: ER Room/Bed: Procedure: [id number] CT/CT ABDOMEN/PELVIS WO Exam Date: 01/19/19 Chas mcmanus Time: 0650 REPORT STATUS: Signed CT Abdomen and Pelvis [...] arteries. PELVIS FINDINGS: Bowel: Stomach: Normal. Small [place] el: Enteric contrast present throughout. No wall [...] 6:59 AM Dictated By: TRACY ZAVALA MD 8 Aleman scribed By: ARIEL on 01/19/19658 COPY TO: TREY RODRIGES MD Amylase Symhk1452-71-90 05:22:00* Test Item Value Reference Range Interpretation Comments Amylase Level (test code = 1798-8) 87 -125 [facility] CenterLipase2019-07-07 05:22:00* Test Item Value Reference Range Interpretation Comments Lipase (test code = 3040-3) 91 8-78 H [facility] CenterAmylase Fbkly9208-89-64 05:22:00* Test Item Value Reference Range Interpretation Comments Amylase Level (test code = 1798-8) 87 -125 [facility] CenterLipase2019-07-07 05:22:00* Test Item Value Reference Range Interpretation Comments Lipase (test code = 3040-3) 91 8-78 H [facility] CenterAmylase Spumy1729-22-68 05:22:00* Test Item Value Reference Range Interpretation Comments Amylase Level (test code = 1798-8) 87 -125 [facility] CenterLipase2019-07-07 05:22:00* Test Item Value Reference Range Interpretation Comments Lipase (test code = 3040-3) 91 8-78 H [facility] CenterAmylase Mkrmg8899-15-90 05:22:00* Test Item Value Reference Range Interpretation Comments Amylase Level (test code = 1798-8) 87 25-125 [facility]2019-07-07 05:22:00* Test Item Value Reference Range Interpretation Comments Lipase (test code = 3040-3) 91 8-[address] [facility]2019-07-07 05:22:00* Test Item Value Reference Range Interpretation Comments Amylase Level (test code = 1798-8) 87 -125 [facility]2019-07-07 05:22:00* Test Item Value Reference Range Interpretation Comments Lipase (test code = 3040-3) 91 8-[address] [facility]2019-07-07 05:22:00* Test Item Value Reference Range Interpretation Comments Amylase Level (test code = 1798-8) 87 -125 [facility]2019-07-07 05:22:00* Test Item Value Reference Range Interpretation Comments Lipase (test code = 3040-3) 91 8-[address] [facility]2019-07-07 05:22:00* Test Item Value Reference Range Interpretation Comments Amylase Level (test code = 1798-8) 87 -125 [facility]2019-07-07 05:22:00* Test Item Value Reference Range Interpretation Comments Lipase (test code = 3040-3) 91 8-[address] [facility]2019-07-07 05:22:00* Test Item Value Reference Range Interpretation Comments Amylase Level (test code = 1798-8) 87 -125 [facility]2019-07-07 05:22:00* Test Item Value Reference Range Interpretation Comments Lipase (test code = 3040-3) 91 8-[address] [facility]2019-07-07 05:22:00* Test Item Value Reference Range Interpretation Comments Amylase Level (test code = 1798-8) 87 25-125 [facility]2019-07-07 05:22:00* Test Item Value Reference Range Interpretation Comments Lipase (test code = 3040-3) 91 8-78 H [facility] CenterAmylase Nzymp2426-79-14 05:22:00* Test Item Value Reference Range Interpretation Comments Amylase Level (test code = 1798-8) 87 25-125 [facility] CenterLipase2019-07-07 05:22:00* Test Item Value Reference Range Interpretation Comments Lipase (test code = 3040-3) 91 8-78 H [facility] CenterAmylase Guuzp9172-38-67 05:22:00* Test Item Value Reference Range Interpretation Comments Amylase Level (test code = 1798-8) 87 25-125 [facility] CenterLipase2019-07-07 05:22:00* Test Item Value Reference Range Interpretation Comments Lipase (test code = 3040-3) 91 8-78 [facility] Useoi5085-68-34 05:16:00* Test Item Value Reference Range Interpretation Comments Sodium Level (test code = 2951-2) 141 136-145 [facility] CenterPotassium Bjpgj8825-55-34 05:16:00* Test Item Value Reference Range Interpretation Comments Potassium Level (test code = 2823-3) 4.5 3.5-5.1 slight hemolysisOakBend Medical CenterChloride Ukaha3977-45-12 05:16:00* Test Item Value Reference Range Interpretation Comments Chloride Level (test code = 2075-0) 97 98-107 L [facility] CenterCarbon Dioxide Bvvnn4669-65-66 05:16:00* Test Item Value Reference Range Interpretation Comments Carbon Dioxide Level (test code = 2028-9) 29 22-29 [facility] CenterAnion Ksc5888-15-91 05:16:00* Test Item Value Reference Range Interpretation Comments Anion Gap (test code = 17892-1) 19.5 8-16 H [facility] CenterBlood Urea Ezbodixt8963-68-69 05:16:00* Test Item Value Reference Range Interpretation Comments Blood Urea Nitrogen (test code = 3094-0) 31 7-26 H [facility] CenterCreatinine2019-07-07 05:16:00* Test Item Value Reference Range Interpretation Comments Creatinine (test code = 2160-0) 6.97 0.57-1.11 H [facility] CenterBUN/Creatinine Psazk9975-20-65 05:16:00* Test Item Value Reference Range Interpretation Comments BUN/Creatinine Ratio (test code = 3097-3) 4 6-25 L [facility] CenterEstimat Glomerular Filtration Rate 2019-01-19 05:16:00* Test Item Value Reference Range Interpretation Comments Estimat Glomerular Filtration Rate (test code = 716387522) 7 >60 L Ranges were taken from the National Kidney Disease Education Program and the [facility] Foundation literature.Reference ranges:60 or greater: Dhqcev20-40 ( for 3 consecutive months): Chronic kidney disease 15 or less: Kidney failureOakBend Medical CenterGlucose Fmnzo9254-41-82 05:16:00* Test Item Value Reference Range Interpretation Comments Glucose Level (test code = QBF9951) 188 74-118 H [facility] CenterCalcium Zmfnw5817-03-86 05:16:00* Test Item Value Reference Range Interpretation Comments Calcium Level (test code = 59167-3) 8.6 8.4-10.2 [facility] CenterTotal Myxwyacht8980-87-62 05:16:00* Test Item Value Reference Range Interpretation Comments Total Bilirubin (test code = 1975-2) 0.5 0.2-1.2 [facility] CenterAspartate Amino Transf (AST/SGOT) 2019-01-19 05:16:00* Test Item Value Reference Range Interpretation Comments Aspartate Amino Transf (AST/SGOT) (test code = Aspartate Amino Transf (AST/SGOT)) 13 5-34 [facility] CenterAlanine Aminotransferase (ALT/SGPT) 2019-01-19 05:16:00* Test Item Value Reference Range Interpretation Comments Alanine Aminotransferase (ALT/SGPT) (test code = 1742-6) 10 0-55 [facility] CenterTotal Gsjicxp1887-82-71 05:16:00* Test Item Value Reference Range Interpretation Comments Total Protein (test code = 2885-2) 7.4 6.5-8.1 [facility] CenterAlbumin2019-07-07 05:16:00* Test Item Value Reference Range Interpretation Comments Albumin (test code = 1751-7) 3.0 3.5-5.0 L [facility] CenterGlobulin2019-07-07 05:16:00* Test Item Value Reference Range Interpretation Comments Globulin (test code = 80567-3) 4.4 2.3-3.5 H [facility] CenterAlbumin/Globulin Ezobz4513-10-48 05:16:00 * Test Item Value Reference Range Interpretation Comments Albumin/Globulin Ratio (test code = 1759-0) 0.7 0.8-2.0 L [facility] CenterAlkaline Mxdgmwobllz6371-53-59 05:16:00* Test Item Value Reference Range Interpretation Comments Alkaline Phosphatase (test code = 6768-6) 87 40-150 [facility] Vekbj6037-03-04 05:16:00* Test Item Value Reference Range Interpretation Comments Sodium Level (test code = 2951-2) 141 136-145 [facility] CenterPotassium Hbjsl0945-26-47 05:16:00* Test Item Value Reference Range Interpretation Comments Potassium Level (test code = 2823-3) 4.5 3.5-5.1 slight hemolysisOakBend Medical CenterChloride Mklxw3617-10-52 05:16:00* Test Item Value Reference Range Interpretation Comments Chloride Level (test code = 2075-0) 97 98-107 L [facility] CenterCarbon Dioxide Vhagf3053-01-24 05:16:00* Test Item Value Reference Range Interpretation Comments Carbon Dioxide Level (test code = 2028-9) 29 22-29 [facility] CenterAnion Hvk8027-64-83 05:16:00* Test Item Value Reference Range Interpretation Comments Anion Gap (test code = 61986-9) 19.5 8-16 H [facility] CenterBlood Urea Rlbjdzww3302-89-34 05:16:00* Test Item Value Reference Range Interpretation Comments Blood Urea Nitrogen (test code = 3094-0) 31 7-26 H [facility] CenterCreatinine2019-07-07 05:16:00* Test Item Value Reference Range Interpretation Comments Creatinine (test code = 2160-0) 6.97 0.57-1.11 H [facility] CenterBUN/Creatinine Eskkf6838-82-94 05:16:00* Test Item Value Reference Range Interpretation Comments BUN/Creatinine Ratio (test code = 3097-3) 4 6-25 L [facility] CenterEstimat Glomerular Filtration Rate 2019-01-19 05:16:00* Test Item Value Reference Range Interpretation Comments Estimat Glomerular Filtration Rate (test code = 405869269) 7 >60 L Ranges were taken from the National Kidney Disease Education Program and the [facility] literature.Reference ranges:60 or greater: Jonoyl20-72 ( for 3 consecutive months): Chronic kidney disease 15 or less: Kidney failureOakBend Medical CenterGlucose Qtoew1554-05-26 05:16:00* Test Item Value Reference Range Interpretation Comments Glucose Level (test code = OLO0206) 188 74-118 H [facility] CenterCalcium Pascz2446-87-71 05:16:00* Test Item Value Reference Range Interpretation Comments Calcium Level (test code = 22335-3) 8.6 8.4-10.2 [facility] CenterTotal Qetdtiphn2886-27-86 05:16:00* Test Item Value Reference Range Interpretation Comments Total Bilirubin (test code = 1975-2) 0.5 0.2-1.2 [facility] CenterAspartate Amino Transf (AST/SGOT) 2019-01-19 05:16:00* Test Item Value Reference Range Interpretation Comments Aspartate Amino Transf (AST/SGOT) (test code = Aspartate Amino Transf (AST/SGOT)) 13 5-34 [facility] CenterAlanine Aminotransferase (ALT/SGPT) 2019-01-19 05:16:00* Test Item Value Reference Range Interpretation Comments Alanine Aminotransferase (ALT/SGPT) (test code = 1742-6) 10 0-55 [facility] CenterTotal Xzmdwgg5492-00-61 05:16:00* Test Item Value Reference Range Interpretation Comments Total Protein (test code = 2885-2) 7.4 6.5-8.1 [facility] CenterAlbumin2019-07-07 05:16:00* Test Item Value Reference Range Interpretation Comments Albumin (test code = 1751-7) 3.0 3.5-5.0 L [facility] CenterGlobulin2019-07-07 05:16:00* Test Item Value Reference Range Interpretation Comments Globulin (test code = 22102-4) 4.4 2.3-3.5 H [facility] CenterAlbumin/Globulin Pczpt8331-12-98 05:16:00 * Test Item Value Reference Range Interpretation Comments Albumin/Globulin Ratio (test code = 1759-0) 0.7 0.8-2.0 L [facility] CenterAlkaline Tlurafnnfat7318-15-24 05:16:00* Test Item Value Reference Range Interpretation Comments Alkaline Phosphatase (test code = 6768-6) 87 40-150 [facility] Ghlyf9372-41-53 05:16:00* Test Item Value Reference Range Interpretation Comments Sodium Level (test code = 2951-2) 141 136-145 [facility] CenterPotassium Gxlfc8444-20-80 05:16:00* Test Item Value Reference Range Interpretation Comments Potassium Level (test code = 2823-3) 4.5 3.5-5.1 slight hemolysisOakBend Medical CenterChloride Rvoly2190-17-58 05:16:00* Test Item Value Reference Range Interpretation Comments Chloride Level (test code = 2075-0) 97 98-107 L [facility] CenterCarbon Dioxide Xteuk7457-39-33 05:16:00* Test Item Value Reference Range Interpretation Comments Carbon Dioxide Level (test code = 2028-9) 29 22-29 [facility] CenterAnion Rbh5018-46-95 05:16:00* Test Item Value Reference Range Interpretation Comments Anion Gap (test code = 42203-5) 19.5 8-16 H [facility] CenterBlood Urea Uzyzmzce6460-33-63 05:16:00* Test Item Value Reference Range Interpretation Comments Blood Urea Nitrogen (test code = 3094-0) 31 7-26 H [facility] CenterCreatinine2019-07-07 05:16:00* Test Item Value Reference Range Interpretation Comments Creatinine (test code = 2160-0) 6.97 0.57-1.11 H [facility] CenterBUN/Creatinine Yyvvs0924-86-50 05:16:00* Test Item Value Reference Range Interpretation Comments BUN/Creatinine Ratio (test code = 3097-3) 4 6-25 L [facility] CenterEstimat Glomerular Filtration Rate 2019-01-19 05:16:00* Test Item Value Reference Range Interpretation Comments Estimat Glomerular Filtration Rate (test code = 789665314) 7 >60 L Ranges were taken from the National Kidney Disease Education Program and the [facility] literature.Reference ranges:60 or greater: Wnwamy82-56 ( for 3 consecutive months): Chronic kidney disease 15 or less: Kidney failureOakBend Medical CenterGlucose Bgcrn3345-37-89 05:16:00* Test Item Value Reference Range Interpretation Comments Glucose Level (test code = SUF0326) 188 74-118 H [facility] CenterCalcium Zbnsp5714-65-70 05:16:00* Test Item Value Reference Range Interpretation Comments Calcium Level (test code = 38816-8) 8.6 8.4-10.2 [facility] CenterTotal Ogpjbvxjr6401-98-18 05:16:00* Test Item Value Reference Range Interpretation Comments Total Bilirubin (test code = 1975-2) 0.5 0.2-1.2 [facility] CenterAspartate Amino Transf (AST/SGOT) 2019-01-19 05:16:00* Test Item Value Reference Range Interpretation Comments Aspartate Amino Transf (AST/SGOT) (test code = Aspartate Amino Transf (AST/SGOT)) 13 5-34 [facility] CenterAlanine Aminotransferase (ALT/SGPT) 2019-01-19 05:16:00* Test Item Value Reference Range Interpretation Comments Alanine Aminotransferase (ALT/SGPT) (test code = 1742-6) 10 0-55 [facility] CenterTotal Fqfljdi1353-18-38 05:16:00* Test Item Value Reference Range Interpretation Comments Total Protein (test code = 2885-2) 7.4 6.5-8.1 [facility] CenterAlbumin2019-07-07 05:16:00* Test Item Value Reference Range Interpretation Comments Albumin (test code = 1751-7) 3.0 3.5-5.0 L [facility] CenterGlobulin2019-07-07 05:16:00* Test Item Value Reference Range Interpretation Comments Globulin (test code = 32591-7) 4.4 2.3-3.5 H [facility] CenterAlbumin/Globulin Xkgtm0221-79-69 05:16:00 * Test Item Value Reference Range Interpretation Comments Albumin/Globulin Ratio (test code = 1759-0) 0.7 0.8-2.0 L [facility] CenterAlkaline Srgbjqtyobo7751-33-91 05:16:00* Test Item Value Reference Range Interpretation Comments Alkaline Phosphatase (test code = 6768-6) 87 40-150 [facility] CenterWhite Blood Iqdrc3494-55-06 04:55:00* Test Item Value Reference Range Interpretation Comments White Blood Count (test code = 6690-2) 7.77 4.8-10.8 [facility] CenterRed Blood Dyqna5785-87-60 04:55:00* Test Item Value Reference Range Interpretation Comments Red Blood Count (test code = 789-8) 4.08 3.6-5.1 [facility] CenterHemoglobin2019-07-07 04:55:00* Test Item Value Reference Range Interpretation Comments Hemoglobin (test code = 00642-8) 11.7 12.0-16.0 L [facility] CenterHematocrit2019-07-07 04:55:00* Test Item Value Reference Range Interpretation Comments Hematocrit (test code = 4544-3) 37.4 34.2-44.1 [facility] CenterMean Corpuscular Fvvqsr5633-73-90 04:55:00* Test Item Value Reference Range Interpretation Comments Mean Corpuscular Volume (test code = 787-2) 91.7 81-99 [facility] CenterMean Corpuscular Xokivdplme5192-59-18 04:55:00* Test Item Value Reference Range Interpretation Comments Mean Corpuscular Hemoglobin (test code = 785-6) 28.7 28-32 [facility] CenterMean Corpuscular Hemoglobin Concent 2019-01-19 04:55:00* Test Item Value Reference Range Interpretation Comments Mean Corpuscular Hemoglobin Concent (test code = 786-4) 31.3 31-35 [facility] CenterRed Cell Distribution Izoni7880-87-88 04:55:00* Test Item Value Reference Range Interpretation Comments Red Cell Distribution Width (test code = 91500-9) 17.3 11.7 -14.4 H [facility] CenterPlatelet Hznch1022-64-53 04:55:00* Test Item Value Reference Range Interpretation Comments Platelet Count (test code = 777-3) 286 140-360 [facility] CenterNeutrophils (%) (Auto)2019-01-19 04:55:00 * Test Item Value Reference Range Interpretation Comments Neutrophils (%) (Auto) (test code = 99963-3) 70.6 38.7-80.0 [facility] CenterLymphocytes (%) (Auto)2019-01-19 04:55:00 * Test Item Value Reference Range Interpretation Comments Lymphocytes (%) (Auto) (test code = 736-9) 18.5 18.0-39.1 [facility] CenterMonocytes (%) (Auto)2019-01-19 04:55:00* Test Item Value Reference Range Interpretation Comments Monocytes (%) (Auto) (test code = 5905-5) 8.9 4.4-11.3 [facility] CenterEosinophils (%) (Auto)2019-01-19 04:55:00 * Test Item Value Reference Range Interpretation Comments Eosinophils (%) (Auto) (test code = 713-8) 1.5 0.0-6.0 [facility] CenterBasophils (%) (Auto)2019-01-19 04:55:00* Test Item Value Reference Range Interpretation Comments Basophils (%) (Auto) (test code = 706-2) 0.1 0.0-1.0 [facility] CenterIM GRANULOCYTES %2019-01-19 04:55:00* Test Item Value Reference Range Interpretation Comments IM GRANULOCYTES % (test code = IM GRANULOCYTES %) 0.4 0.0- 1.0 [facility] CenterNeutrophils # (Auto)2019-01-19 04:55:00* Test Item Value Reference Range Interpretation Comments Neutrophils # (Auto) (test code = 751-8) 5.5 2.1-6.9 [facility] CenterLymphocytes # (Auto)2019-01-19 04:55:00* Test Item Value Reference Range Interpretation Comments Lymphocytes # (Auto) (test code = 91812-6) 1.4 1.0-3.2 [facility] CenterMonocytes # (Auto)2019-01-19 04:55:00* Test Item Value Reference Range Interpretation Comments Monocytes # (Auto) (test code = 742-7) 0.7 0.2-0.8 [facility] CenterEosinophils # (Auto)2019-01-19 04:55:00* Test Item Value Reference Range Interpretation Comments Eosinophils # (Auto) (test code = 711-2) 0.1 0.0-0.4 [facility] CenterBasophils # (Auto)2019-01-19 04:55:00* Test Item Value Reference Range Interpretation Comments Basophils # (Auto) (test code = 704-7) 0.0 0.0-0.1 [facility] CenterAbsolute Immature Granulocyte (auto 2019-01-19 04:55:00* Test Item Value Reference Range Interpretation Comments Absolute Immature Granulocyte (auto (toby t code = Absolute Immature Granulocyte (auto) 0.03 0-0.1 [facility] CenterWhite Blood Baxcp6514-82-66 04:55:00* Test Item Value Reference Range Interpretation Comments White Blood Count (test code = 6690-2) 7.77 4.8-10.8 [facility] CenterRed Blood Pceom5045-32-46 04:55:00* Test Item Value Reference Range Interpretation Comments Red Blood Count (test code = 789-8) 4.08 3.6-5.1 [facility] CenterHemoglobin2019-07-07 04:55:00* Test Item Value Reference Range Interpretation Comments Hemoglobin (test code = 98567-5) 11.7 12.0-16.0 L [facility] CenterHematocrit2019-07-07 04:55:00* Test Item Value Reference Range Interpretation Comments Hematocrit (test code = 4544-3) 37.4 34.2-44.1 [facility] CenterMean Corpuscular Jghxxh7011-43-17 04:55:00* Test Item Value Reference Range Interpretation Comments Mean Corpuscular Volume (test code = 787-2) 91.7 81-99 [facility] CenterMean Corpuscular Tjpfmmixsu6207-25-39 04:55:00* Test Item Value Reference Range Interpretation Comments Mean Corpuscular Hemoglobin (test code = 785-6) 28.7 28-32 [facility] CenterMean Corpuscular Hemoglobin Concent 2019-01-19 04:55:00* Test Item Value Reference Range Interpretation Comments Mean Corpuscular Hemoglobin Concent (test code = 786-4) 31.3 31-35 [facility] CenterRed Cell Distribution Sjeer5856-90-19 04:55:00* Test Item Value Reference Range Interpretation Comments Red Cell Distribution Width (test code = 95945-8) 17.3 11.7 -14.4 H [facility] CenterPlatelet Nwlnt4480-02-71 04:55:00* Test Item Value Reference Range Interpretation Comments Platelet Count (test code = 777-3) 286 140-360 [facility] CenterNeutrophils (%) (Auto)2019-01-19 04:55:00 * Test Item Value Reference Range Interpretation Comments Neutrophils (%) (Auto) (test code = 47079-5) 70.6 38.7-80.0 [facility] CenterLymphocytes (%) (Auto)2019-01-19 04:55:00 * Test Item Value Reference Range Interpretation Comments Lymphocytes (%) (Auto) (test code = 736-9) 18.5 18.0-39.1 [facility] CenterMonocytes (%) (Auto)2019-01-19 04:55:00* Test Item Value Reference Range Interpretation Comments Monocytes (%) (Auto) (test code = 5905-5) 8.9 4.4-11.3 [facility] CenterEosinophils (%) (Auto)2019-01-19 04:55:00 * Test Item Value Reference Range Interpretation Comments Eosinophils (%) (Auto) (test code = 713-8) 1.5 0.0-6.0 [facility] CenterBasophils (%) (Auto)2019-01-19 04:55:00* Test Item Value Reference Range Interpretation Comments Basophils (%) (Auto) (test code = 706-2) 0.1 0.0-1.0 [facility] CenterIM GRANULOCYTES %2019-01-19 04:55:00* Test Item Value Reference Range Interpretation Comments IM GRANULOCYTES % (test code = IM GRANULOCYTES %) 0.4 0.0- 1.0 [facility] CenterNeutrophils # (Auto)2019-01-19 04:55:00* Test Item Value Reference Range Interpretation Comments Neutrophils # (Auto) (test code = 751-8) 5.5 2.1-6.9 [facility] CenterLymphocytes # (Auto)2019-01-19 04:55:00* Test Item Value Reference Range Interpretation Comments Lymphocytes # (Auto) (test code = 54928-6) 1.4 1.0-3.2 [facility] CenterMonocytes # (Auto)2019-01-19 04:55:00* Test Item Value Reference Range Interpretation Comments Monocytes # (Auto) (test code = 742-7) 0.7 0.2-0.8 [facility] CenterEosinophils # (Auto)2019-01-19 04:55:00* Test Item Value Reference Range Interpretation Comments Eosinophils # (Auto) (test code = 711-2) 0.1 0.0-0.4 [facility] CenterBasophils # (Auto)2019-01-19 04:55:00* Test Item Value Reference Range Interpretation Comments Basophils # (Auto) (test code = 704-7) 0.0 0.0-0.1 [facility] CenterAbsolute Immature Granulocyte (auto 2019-01-19 04:55:00* Test Item Value Reference Range Interpretation Comments Absolute Immature Granulocyte (auto (toby t code = Absolute Immature Granulocyte (auto) 0.03 0-0.1 [facility] CenterWhite Blood Sxtkp6175-63-33 04:55:00* Test Item Value Reference Range Interpretation Comments White Blood Count (test code = 6690-2) 7.77 4.8-10.8 [facility] CenterRed Blood Asnhg9174-48-36 04:55:00* Test Item Value Reference Range Interpretation Comments Red Blood Count (test code = 789-8) 4.08 3.6-5.1 [facility] CenterHemoglobin2019-07-07 04:55:00* Test Item Value Reference Range Interpretation Comments Hemoglobin (test code = 75097-8) 11.7 12.0-16.0 L [facility] CenterHematocrit2019-07-07 04:55:00* Test Item Value Reference Range Interpretation Comments Hematocrit (test code = 4544-3) 37.4 34.2-44.1 [facility] CenterMean Corpuscular Ivglil4525-64-51 04:55:00* Test Item Value Reference Range Interpretation Comments Mean Corpuscular Volume (test code = 787-2) 91.7 81-99 [facility] CenterMean Corpuscular Qpbsvptxjj3832-07-96 04:55:00* Test Item Value Reference Range Interpretation Comments Mean Corpuscular Hemoglobin (test code = 785-6) 28.7 28-32 [facility] CenterMean Corpuscular Hemoglobin Concent 2019-01-19 04:55:00* Test Item Value Reference Range Interpretation Comments Mean Corpuscular Hemoglobin Concent (test code = 786-4) 31.3 31-35 [facility] CenterRed Cell Distribution Amgln4323-16-62 04:55:00* Test Item Value Reference Range Interpretation Comments Red Cell Distribution Width (test code = 01925-0) 17.3 11.7 -14.4 H [facility] CenterPlatelet Stqdo3450-30-75 04:55:00* Test Item Value Reference Range Interpretation Comments Platelet Count (test code = 777-3) 286 140-360 [facility] CenterNeutrophils (%) (Auto)2019-01-19 04:55:00 * Test Item Value Reference Range Interpretation Comments Neutrophils (%) (Auto) (test code = 03813-5) 70.6 38.7-80.0 [facility] CenterLymphocytes (%) (Auto)2019-01-19 04:55:00 * Test Item Value Reference Range Interpretation Comments Lymphocytes (%) (Auto) (test code = 736-9) 18.5 18.0-39.1 [facility] CenterMonocytes (%) (Auto)2019-01-19 04:55:00* Test Item Value Reference Range Interpretation Comments Monocytes (%) (Auto) (test code = 5905-5) 8.9 4.4-11.3 [facility] CenterEosinophils (%) (Auto)2019-01-19 04:55:00 * Test Item Value Reference Range Interpretation Comments Eosinophils (%) (Auto) (test code = 713-8) 1.5 0.0-6.0 [facility] CenterBasophils (%) (Auto)2019-01-19 04:55:00* Test Item Value Reference Range Interpretation Comments Basophils (%) (Auto) (test code = 706-2) 0.1 0.0-1.0 [facility] CenterIM GRANULOCYTES %2019-01-19 04:55:00* Test Item Value Reference Range Interpretation Comments IM GRANULOCYTES % (test code = IM GRANULOCYTES %) 0.4 0.0- 1.0 [facility] CenterNeutrophils # (Auto)2019-01-19 04:55:00* Test Item Value Reference Range Interpretation Comments Neutrophils # (Auto) (test code = 751-8) 5.5 2.1-6.9 [facility] CenterLymphocytes # (Auto)2019-01-19 04:55:00* Test Item Value Reference Range Interpretation Comments Lymphocytes # (Auto) (test code = 51619-6) 1.4 1.0-3.2 [facility] CenterMonocytes # (Auto)2019-01-19 04:55:00* Test Item Value Reference Range Interpretation Comments Monocytes # (Auto) (test code = 742-7) 0.7 0.2-0.8 [facility] CenterEosinophils # (Auto)2019-01-19 04:55:00* Test Item Value Reference Range Interpretation Comments Eosinophils # (Auto) (test code = 711-2) 0.1 0.0-0.4 [facility] CenterBasophils # (Auto)2019-01-19 04:55:00* Test Item Value Reference Range Interpretation Comments Basophils # (Auto) (test code = 704-7) 0.0 0.0-0.1 [facility] CenterAbsolute Immature Granulocyte (auto 2019-01-19 04:55:00* Test Item Value Reference Range Interpretation Comments Absolute Immature Granulocyte (auto (toby t code = Absolute Immature Granulocyte (auto) 0.03 0-0.1 [facility] Dgrruvf6771-79-96 12:00:00* Test Item Value Reference Range Interpretation Comments Bedside Glucose (test code = 85187-9) 165 70-120 H Meter ID: [id number] Glucose 2018-12-30 12:00:00* Test Item Value Reference Range Interpretation Comments Bedside Glucose (test code = 69235-4) 165 70-120 H Meter ID: [id number] Health Hospital Glucose 2018-12-30 12:00:00* Test Item Value Reference Range Interpretation Comments Bedside Glucose (test code = 63624-0) 165 70-120 H Meter ID: [id number] Gl[facility] 2018-12-30 12:00:00* Test Item Value Reference Range Interpretation Comments Bedside Glucose (test code = 84582-4) 165 70-120 H Meter ID: [id number] [facility] Culture 2018-12-28 19:21:00* Test Item Value Reference Range Interpretation Comments Blood Culture (test code = 25273372) NO GROWTH AFTER 5 DAYS, FINAL REPORT [facility] Wxvafgt6643-48-62 19:21:00* Test Item Value Reference Range Interpretation Comments Blood Culture (test code = 37153606) NO GROWTH AFTER 5 DAYS, FINAL REPORT [facility] Ssxazkv7140-84-66 19:21:00* Test Item Value Reference Range Interpretation Comments Blood Culture (test code = 06084202) NO GROWTH AFTER 5 DAYS, FINAL REPORT [facility] Qzmdpcj8288-18-33 19:21:00* Test Item Value Reference Range Interpretation Comments Blood Culture (test code = 56226866) NO GROWTH AFTER 5 DAYS, FINAL REPORT [facility] Qrnbgkt5795-58-49 19:21:00* Test Item Value Reference Range Interpretation Comments Blood Culture (test code = 87706992) NO GROWTH AFTER 5 DAYS, FINAL REPORT [facility] Ibbiiok8851-50-38 19:21:00* Test Item Value Reference Range Interpretation Comments Blood Culture (test code = 10780187) NO GROWTH AFTER 5 DAYS, FINAL REPORT [facility] Ojxyayw8445-61-60 19:21:00* Test Item Value Reference Range Interpretation Comments Blood Culture (test code = 17147961) NO GROWTH AFTER 5 DAYS, FINAL REPORT [facility] Yeurkid3270-48-10 19:21:00* Test Item Value Reference Range Interpretation Comments Blood Culture (test code = 95158872) NO GROWTH AFTER 5 DAYS, FINAL REPORT [facility] Axbvwdo7839-78-58 19:21:00* Test Item Value Reference Range Interpretation Comments Blood Culture (test code = 75671348) NO GROWTH AFTER 5 DAYS, FINAL REPORT [facility]2019-06-15 19:21:00* Test Item Value Reference Range Interpretation Comments Blood Culture (test code = 61038767) NO GROWTH AFTER 5 DAYS, FINAL REPORT [facility] Tnaxovq7180-08-63 19:21:00* Test Item Value Reference Range Interpretation Comments Blood Culture (test code = 94464475) NO GROWTH AFTER 5 DAYS, FINAL REPORT [facility] Zkcawhn6652-56-82 19:21:00* Test Item Value Reference Range Interpretation Comments Blood Culture (test code = 36594259) NO GROWTH AFTER 5 DAYS, FINAL REPORT [facility] CenterC-Reactive Mdswxyn6056-84-49 22:10:00* Test Item Value Reference Range Interpretation Comments C-Reactive Protein (test code = 1987-11) 42.8 0.0-4.9 H Effective December 30, 2018 the reference interval for C-Reactive Protein, Quant, will be changing to: Age Male Female 0 - 30 days Not Estab. Not Estab. 1 month - 17 years 0 - 7 0 - 9 >17 years 0 - 10 0 - 10Performed at: [facility] [address] [id number] Director: Ronald Arcos MD, Phone: [phone] Medical CenterC-Reactive Tphedhc1204-43-85 22:10:00* Test Item Value Reference Range Interpretation Comments C-Reactive Protein (test code = 1987-11) 42.8 0.0-4.9 H Effective December 30, 2018 the reference interval for C-Reactive Protein, Quant, will be changing to: Age Male Female 0 - 30 days Not Estab. Not Estab. 1 month - 17 years 0 - 7 0 - 9 >17 years 0 - 10 0 - 10Performed at: [facility] [address] [id number] Director: Ronald Arcos MD, Phone: [phone] Medical CenterC-Reactive Vbmfdqf0461-17-01 22:10:00* Test Item Value Reference Range Interpretation Comments C-Reactive Protein (test code = 1987-11) 42.8 0.0-4.9 H Effective December 30, 2018 the reference interval for C-Reactive Protein, Quant, will be changing to: Age Male Female 0 - 30 days Not Estab. Not Estab. 1 month - 17 years 0 - 7 0 - 9 >17 years 0 - 10 0 - 10Performed at: [address] [id number] Director: Ronald Arcos MD, Phone: [phone] Medical CenterC-Reactive Rksetwm6520-45-56 22:10:00* Test Item Value Reference Range Interpretation Comments C-Reactive Protein (test code = 1987-11) 42.8 0.0-4.9 H Effective December 30, 2018 the reference interval for C-Reactive Protein, Quant, will be changing to: Age Male Female 0 - 30 days Not Estab. Not Estab. 1 month - 17 years 0 - 7 0 - 9 >17 years 0 - 10 0 - 10Performed at: [address] [id number] Director: Ronald Arcos MD, Phone: [phone] Medical CenterC-Reactive Uofzwmh0844-17-11 22:10:00* Test Item Value Reference Range Interpretation Comments C-Reactive Protein (test code = 1987-11) 42.8 0.0-4.9 H Effective December 30, 2018 the reference interval for C-Reactive Protein, Quant, will be changing to: Age Male Female 0 - 30 days Not Estab. Not Estab. 1 month - 17 years 0 - 7 0 - 9 >17 years 0 - 10 0 - 10Performed at: [address] [id number] Director: Ronald Arcos MD, Phone: [phone] Medical CenterC-Reactive Nkexsdi9867-13-08 22:10:00* Test Item Value Reference Range Interpretation Comments C-Reactive Protein (test code = 1987-11) 42.8 0.0-4.9 H Effective December 30, 2018 the reference interval for C-Reactive Protein, Quant, will be changing to: Age Male Female 0 - 30 days Not Estab. Not Estab. 1 month - 17 years 0 - 7 0 - 9 >17 years 0 - 10 0 - 10Performed at: [address] [id number] Director: Ronald Arcos MD, Phone: [phone] Medical CenterC-Reactive Tilnznb2811-42-00 22:10:00* Test Item Value Reference Range Interpretation Comments C-Reactive Protein (test code = 1987-11) 42.8 0.0-4.9 H Effective December 30, 2018 the reference interval for C-Reactive Protein, Quant, will be changing to: Age Male Female 0 - 30 days Not Estab. Not Estab. 1 month - 17 years 0 - 7 0 - 9 >17 years 0 - 10 0 - 10Performed at: [address] [id number] Director: Ronald Arcos MD, Phone: [phone] Medical CenterC-Reactive Jiuxnxc2140-50-41 22:10:00* Test Item Value Reference Range Interpretation Comments C-Reactive Protein (test code = 1987-11) 42.8 0.0-4.9 H Effective December 30, 2018 the reference interval for C-Reactive Protein, Quant, will be changing to: Age Male Female 0 - 30 days Not Estab. Not Estab. 1 month - 17 years 0 - 7 0 - 9 >17 years 0 - 10 0 - 10Performed at: [address] [id number] Director: Ronald Arcos MD, Phone: [phone] Medical CenterC-Reactive Jomushu9710-73-44 22:10:00* Test Item Value Reference Range Interpretation Comments C-Reactive Protein (test code = 1987-11) 42.8 0.0-4.9 H Effective December 30, 2018 the reference interval for C-Reactive Protein, Quant, will be changing to: Age Male Female 0 - 30 days Not Estab. Not Estab. 1 month - 17 years 0 - 7 0 - 9 >17 years 0 - 10 0 - 10Performed at: [address] [id number] Director: Ronald Arcos MD, Phone: [phone] Medical CenterC-Reactive Gipysnj2773-21-67 22:10:00* Test Item Value Reference Range Interpretation Comments C-Reactive Protein (test code = 1988-5) 42.8 0.0-4.9 H Effective December 30, 2018 the reference interval for C-Reactive Protein, Quant, will be changing to: Age Male Female 0 - 30 days Not Estab. Not Estab. 1 month - 17 years 0 - 7 0 - 9 >17 years 0 - 10 0 - 10Performed at: [facility] LabCoCarolina [facility]ines Regional Medical CenterTqmhoyc[address] [place] [id number] Director: Ronald Arcos MD, Phone: [phone] Juhmbqo1677-31-73 09:16:00* Test Item Value Reference Range Interpretation Comments Wound Culture (test code = 6462-6) Organism: PSEUDOMONAS AERUGINOSA [facility] Lxrwttr5301-10-42 09:16:00* Test Item Value Reference Range Interpretation Comments Wound Culture (test code = 6462-6) Organism: PSEUDOMONAS AERUGINOSA [facility] Dpfybeu9720-51-65 09:16:00* Test Item Value Reference Range Interpretation Comments Wound Culture (test code = 6462-6) Organism: PSEUDOMONAS AERUGINOSA [facility] Gnbfyxg3926-47-70 09:16:00* Test Item Value Reference Range Interpretation Comments Wound Culture (test code = 6462-6) No Result Data Provided [facility] Emynpye0396-99-77 09:16:00* Test Item Value Reference Range Interpretation Comments Wound Culture (test code = 6462-6) No Result Data Provided [facility] Qwbfihi2789-40-25 09:16:00* Test Item Value Reference Range Interpretation Comments Wound Culture (test code = 6462-6) No Result Data Provided [facility] Zovezpf0385-06-57 09:16:00* Test Item Value Reference Range Interpretation Comments Wound Culture (test code = 6462-6) No Result Data Provided [facility] Zhpljra9663-59-17 09:16:00* Test Item Value Reference Range Interpretation Comments Wound Culture (test code = 6462-6) No Result Data Provided [facility]2019-06-13 09:16:00* Test Item Value Reference Range Interpretation Comments Wound Culture (test code = 6462-6) No Result Data Provided [facility]2019-06-13 09:16:00* Test Item Value Reference Range Interpretation Comments Wound Culture (test code = 6462-6) No Result Data Provided [facility]2019-06-13 09:16:00* Test Item Value Reference Range Interpretation Comments Wound Culture (test code = 6462-6) No Result Data Provided [facility]2019-06-13 09:16:00* Test Item Value Reference Range Interpretation Comments Wound Culture (test code = 6462-6) No Result Data Provided [facility] B Surface Antibody, Quant 2018-12-25 07:49:00* Test Item Value Reference Range Interpretation Comments Hepatitis B Surface Antibody, Quant (test code = 5194-6) 215.2 Immunity>9.9 Status of Immunity Anti-HBs Level Inconsistent with Immunity 0.0 - 9.9Consistent with Immunity >9.9[facility] B Surface Wtynnse6235-22-48 07:49:00* Test Item Value Reference Range Interpretation Comments Hepatitis B Surface Antigen (test code = 5196-1) Negative Negat jinny [facility] B Core IgM Artbluto0429-41-22 07:49:00* Test Item Value Reference Range Interpretation Comments Hepatitis B Core IgM Antibody (test code = 04244-7) Negative Ne gative Performed at: [facility] LabCo[address] [id number] Director: Ronald Arcos MD, Phone: [phone] Memorial Hospital B Surface Antibody, Ixspl8515-10-78 07:49:00* Test Item Value Reference Range Interpretation Comments Hepatitis B Surface Antibody, Quant (test code = 5194-6) 215.2 Immunity>9.9 Status of Immunity Anti-HBs Level Inconsistent with Immunity 0.0 - 9.9Consistent with Immunity >9.9[facility] B Surface Xaqwnlh9675-45-79 07:49:00* Test Item Value Reference Range Interpretation Comments Hepatitis B Surface Antigen (test code = 5196-1) Negative Negat jinny [facility] B Core IgM Ykzvxkyh1553-45-96 07:49:00* Test Item Value Reference Range Interpretation Comments Hepatitis B Core IgM Antibody (test code = 99238-7) Negative Ne gative Performed at: [facility] [address] [id number] Director: Ronald Arcos MD, Phone: [phone] Memorial Hospital B Surface Antibody, Xyecj9826-08-49 07:49:00* Test Item Value Reference Range Interpretation Comments Hepatitis B Surface Antibody, Quant (test code = 5194-6) 215.2 Immunity>9.9 Status of Immunity Anti-HBs Level Inconsistent with Immunity 0.0 - 9.9Consistent with Immunity >9.9[facility] B Surface Jpcemtb7227-70-64 07:49:00* Test Item Value Reference Range Interpretation Comments Hepatitis B Surface Antigen (test code = 5196-1) Negative [facility] IgM Tmxqsauo4880-58-20 07:49:00* Test Item Value Reference Range Interpretation Comments Hepatitis B Core IgM Antibody (test code = 40922-1) Negative Ne gative Performed at: [facility] [address] [id number] Director: Ronald Arcos MD, Phone: [phone] Memorial Hospital B Surface Antibody, Fpjuu3230-01-86 07:49:00* Test Item Value Reference Range Interpretation Comments Hepatitis B Surface Antibody, Quant (test code = 5194-6) 215.2 Immunity>9.9 Status of Immunity Anti-HBs Level Inconsistent with Immunity 0.0 - 9.9Consistent with Immunity >9.9[facility] B Surface Skklwbw5386-12-45 07:49:00* Test Item Value Reference Range Interpretation Comments Hepatitis B Surface Antigen (test code = 5196-1) Negative Negat jinny [facility] B Core IgM Ropfluox1026-25-58 07:49:00* Test Item Value Reference Range Interpretation Comments Hepatitis B Core IgM Antibody (test code = 13576-8) Negative Ne gative Performed at: [facility] [id number] Director: Ronald Arcos MD, Phone: [phone] Memorial Hospital B Surface Antibody, Onulw1405-45-47 07:49:00* Test Item Value Reference Range Interpretation Comments Hepatitis B Surface Antibody, Quant (test code = 5194-6) 215.2 Immunity>9.9 Status of Immunity Anti-HBs Level Inconsistent with Immunity 0.0 - 9.9Consistent with Immunity >9.9[facility] B Surface Antibody, Csrci4879-48-63 07:49:00* Test Item Value Reference Range Interpretation Comments Hepatitis B Surface Antibody, Quant (test code = 5194-6) 215.2 Immunity>9.9 Status of Immunity Anti-HBs Level Inconsistent with Immunity 0.0 - 9.9Consistent with Immunity >9.9[facility] Surface Antibody, Waxfl2498-11-27 07:49:00* Test Item Value Reference Range Interpretation Comments Hepatitis B Surface Antibody, Quant (test code = 5194-6) 215.2 Immunity>9.9 Status of Immunity Anti-HBs Level Inconsistent with Immunity 0.0 - 9.9Consistent with Immunity >9.9CBaylor [facility] – TaylorGlucose Coehu1672-26-27 06:43:00* Test Item Value Reference Range Interpretation Comments Glucose Level (test code = VOQ4375) 170 74-118 H [facility] CenterHemoglobin A1c Azikjjn5547-49-11 06:43:00 * Test Item Value Reference Range Interpretation Comments Hemoglobin A1c Percent (test code = Hemoglobin A1c Percent) 6.9 4.0-7.0 [facility] CenterThyroid Stimulating Hormone (TSH) 2018-12-25 06:43:00* Test Item Value Reference Range Interpretation Comments Thyroid Stimulating Hormone (TSH) (test code = 04222-8) 15.404 0.350-4.940 H [facility] CenterHemoglobin A1c Gfuvygt2526-03-11 06:43:00 * Test Item Value Reference Range Interpretation Comments Hemoglobin A1c Percent (test code = Hemoglobin A1c Percent) 6.9 4.0-7.0 [facility] CenterThyroid Stimulating Hormone (TSH) 2018-12-25 06:43:00* Test Item Value Reference Range Interpretation Comments Thyroid Stimulating Hormone (TSH) (test code = 08039-9) 15.404 0.350-4.940 H [facility] CenterHemoglobin A1c Cxsyllq5367-82-57 06:43:00 * Test Item Value Reference Range Interpretation Comments Hemoglobin A1c Percent (test code = Hemoglobin A1c Percent) 6.9 4.0-7.0 [facility] CenterThyroid Stimulating Hormone (TSH) 2018-12-25 06:43:00* Test Item Value Reference Range Interpretation Comments Thyroid Stimulating Hormone (TSH) (test code = 13056-0) 15.404 0.350-4.940 H [facility] CenterHemoglobin A1c Hsjpuuo7640-24-33 06:43:00 * Test Item Value Reference Range Interpretation Comments Hemoglobin A1c Percent (test code = Hemoglobin A1c Percent) 6.9 4.0-7.0 [facility] CenterThyroid Stimulating Hormone (TSH) 2018-12-25 06:43:00* Test Item Value Reference Range Interpretation Comments Thyroid Stimulating Hormone (TSH) (test code = 51310-0) 15.404 0.350-4.940 H [facility] CenterHemoglobin A1c Ucutxau5056-39-58 06:43:00 * Test Item Value Reference Range Interpretation Comments Hemoglobin A1c Percent (test code = Hemoglobin A1c Percent) 6.9 4.0-7.0 [facility] CenterHemoglobin A1c Nbgsjny4661-02-97 06:43:00 * Test Item Value Reference Range Interpretation Comments Hemoglobin A1c Percent (test code = Hemoglobin A1c Percent) 6.9 4.0-7.0 [facility] CenterHemoglobin A1c Qvikemn3618-82-14 06:43:00 * Test Item Value Reference Range Interpretation Comments Hemoglobin A1c Percent (test code = Hemoglobin A1c Percent) 6.9 4.0-7.0 [facility] CenterHemoglobin A1c Glatznh2726-33-58 06:43:00 * Test Item Value Reference Range Interpretation Comments Hemoglobin A1c Percent (test code = Hemoglobin A1c Percent) 6.9 4.0-7.0 [facility] CenterHemoglobin A1c Dsrghyh1316-89-13 06:43:00 * Test Item Value Reference Range Interpretation Comments Hemoglobin A1c Percent (test code = Hemoglobin A1c Percent) 6.9 4.0-7.0 [facility] CenterHemoglobin A1c Xdqhtzg2549-54-92 06:43:00 * Test Item Value Reference Range Interpretation Comments Hemoglobin A1c Percent (test code = Hemoglobin A1c Percent) 6.9 4.0-7.0 [facility] CenterHemoglobin A1c Kghqres5683-96-14 06:43:00 * Test Item Value Reference Range Interpretation Comments Hemoglobin A1c Percent (test code = Hemoglobin A1c Percent) 6.9 4.0-7.0 [facility] CenterHemoglobin A1c Cmptjvb6405-75-08 06:43:00 * Test Item Value Reference Range Interpretation Comments Hemoglobin A1c Percent (test code = Hemoglobin A1c Percent) 6.9 4.0-7.0 [facility] CenterWhite Blood Cefpr8361-32-44 06:25:00* Test Item Value Reference Range Interpretation Comments White Blood Count (test code = 6690-2) 8.57 4.8-10.8 [facility] CenterRed Blood Vhsdl4189-61-28 06:25:00* Test Item Value Reference Range Interpretation Comments Red Blood Count (test code = 789-8) 3.78 3.6-5.1 [facility] CenterHemoglobin2019-06-12 06:25:00* Test Item Value Reference Range Interpretation Comments Hemoglobin (test code = 14475-5) 10.4 12.0-16.0 L [facility] CenterHematocrit2019-06-12 06:25:00* Test Item Value Reference Range Interpretation Comments Hematocrit (test code = 4544-3) 35.6 34.2-44.1 [facility] CenterMean Corpuscular Oldtpi3236-18-89 06:25:00* Test Item Value Reference Range Interpretation Comments Mean Corpuscular Volume (test code = 787-2) 94.2 81-99 [facility] CenterMean Corpuscular Vmyzzswvno9996-41-13 06:25:00* Test Item Value Reference Range Interpretation Comments Mean Corpuscular Hemoglobin (test code = 785-6) 27.5 28-32 L [facility] CenterMean Corpuscular Hemoglobin Concent 2018-12-25 06:25:00* Test Item Value Reference Range Interpretation Comments Mean Corpuscular Hemoglobin Concent (test code = 786-4) 29.2 31-35 L [facility] CenterRed Cell Distribution Nammj5856-67-45 06:25:00* Test Item Value Reference Range Interpretation Comments Red Cell Distribution Width (test code = 06149-7) 17.5 11.7 -14.4 H [facility] CenterPlatelet Qynlc2627-91-73 06:25:00* Test Item Value Reference Range Interpretation Comments Platelet Count (test code = 777-3) 190 140-360 [facility] CenterNeutrophils (%) (Auto)2018-12-25 06:25:00 * Test Item Value Reference Range Interpretation Comments Neutrophils (%) (Auto) (test code = 30991-4) 66.3 38.7-80.0 [facility] CenterLymphocytes (%) (Auto)2018-12-25 06:25:00 * Test Item Value Reference Range Interpretation Comments Lymphocytes (%) (Auto) (test code = 736-9) 20.2 18.0-39.1 [facility] CenterMonocytes (%) (Auto)2018-12-25 06:25:00* Test Item Value Reference Range Interpretation Comments Monocytes (%) (Auto) (test code = 5905-5) 11.2 4.4-11.3 [facility] CenterEosinophils (%) (Auto)2018-12-25 06:25:00 * Test Item Value Reference Range Interpretation Comments Eosinophils (%) (Auto) (test code = 713-8) 1.9 0.0-6.0 [facility] CenterBasophils (%) (Auto)2018-12-25 06:25:00* Test Item Value Reference Range Interpretation Comments Basophils (%) (Auto) (test code = 706-2) 0.2 0.0-1.0 [facility] CenterIM GRANULOCYTES %2018-12-25 06:25:00* Test Item Value Reference Range Interpretation Comments IM GRANULOCYTES % (test code = IM GRANULOCYTES %) 0.2 0.0- 1.0 [facility] CenterNeutrophils # (Auto)2018-12-25 06:25:00* Test Item Value Reference Range Interpretation Comments Neutrophils # (Auto) (test code = 751-8) 5.7 2.1-6.9 [facility] CenterLymphocytes # (Auto)2018-12-25 06:25:00* Test Item Value Reference Range Interpretation Comments Lymphocytes # (Auto) (test code = 73286-0) 1.7 1.0-3.2 [facility] CenterMonocytes # (Auto)2018-12-25 06:25:00* Test Item Value Reference Range Interpretation Comments Monocytes # (Auto) (test code = 742-7) 1.0 0.2-0.8 H [facility] CenterEosinophils # (Auto)2018-12-25 06:25:00* Test Item Value Reference Range Interpretation Comments Eosinophils # (Auto) (test code = 711-2) 0.2 0.0-0.4 [facility] CenterBasophils # (Auto)2018-12-25 06:25:00* Test Item Value Reference Range Interpretation Comments Basophils # (Auto) (test code = 704-7) 0.0 0.0-0.1 [facility] CenterAbsolute Immature Granulocyte (auto 2018-12-25 06:25:00* Test Item Value Reference Range Interpretation Comments Absolute Immature Granulocyte (auto (toby t code = Absolute Immature Granulocyte (auto) 0.02 0-0.1 [facility] Scxqa1971-44-50 06:17:00* Test Item Value Reference Range Interpretation Comments Sodium Level (test code = 2951-2) 132 136-145 L [facility] CenterPotassium Lonhw2282-47-88 06:17:00* Test Item Value Reference Range Interpretation Comments Potassium Level (test code = 2823-3) 4.5 3.5-5.1 [facility] CenterChloride Drfrw3031-01-33 06:17:00* Test Item Value Reference Range Interpretation Comments Chloride Level (test code = 2075-0) 97 98-107 L [facility] CenterCarbon Dioxide Yumkq2658-47-13 06:17:00* Test Item Value Reference Range Interpretation Comments Carbon Dioxide Level (test code = 2028-9) 26 22-29 [facility] CenterAnion Haw2905-56-22 06:17:00* Test Item Value Reference Range Interpretation Comments Anion Gap (test code = 11367-5) 13.5 8-16 [facility] CenterBlood Urea Vlpxcstn9079-77-32 06:17:00* Test Item Value Reference Range Interpretation Comments Blood Urea Nitrogen (test code = 3094-0) 37 7-26 H [facility] CenterCreatinine2019-06-12 06:17:00* Test Item Value Reference Range Interpretation Comments Creatinine (test code = 2160-0) 7.06 0.57-1.11 H [facility] CenterBUN/Creatinine Awpiq0028-43-47 06:17:00* Test Item Value Reference Range Interpretation Comments BUN/Creatinine Ratio (test code = 3097-3) 5 6-25 L [facility] CenterEstimat Glomerular Filtration Rate 2018-12-25 06:17:00* Test Item Value Reference Range Interpretation Comments Estimat Glomerular Filtration Rate (test code = 307728147) 7 >60 L Ranges were taken from the National Kidney Disease Education Program and the [facility] Kidney Foundation literature.Reference ranges:60 or greater: Cacvtu81-13 ( for 3 consecutive months): Chronic kidney disease 15 or less: Kidney failureOakBend Medical CenterCalcium Wrycl0175-61-68 06:17:00* Test Item Value Reference Range Interpretation Comments Calcium Level (test code = 99476-8) 8.3 8.4-10.2 L [facility] CenterErythrocyte Sedimentation Ecyj0641-53-09 17:00:00* Test Item Value Reference Range Interpretation Comments Erythrocyte Sedimentation Rate (test code = 4537-7) 48 0- 20 H [facility] CenterErythrocyte Sedimentation Zler7875-69-68 17:00:00* Test Item Value Reference Range Interpretation Comments Erythrocyte Sedimentation Rate (test code = 4537-7) 48 0- 20 H [facility] CenterErythrocyte Sedimentation Vkll1652-90-12 17:00:00* Test Item Value Reference Range Interpretation Comments Erythrocyte Sedimentation Rate (test code = 4537-7) 48 0- 20 H [facility] CenterErythrocyte Sedimentation Jryc0248-35-74 17:00:00* Test Item Value Reference Range Interpretation Comments Erythrocyte Sedimentation Rate (test code = 4537-7) 48 0- 20 H [facility] CenterErythrocyte Sedimentation Gkgp4854-54-88 17:00:00* Test Item Value Reference Range Interpretation Comments Erythrocyte Sedimentation Rate (test code = 4537-7) 48 0- 20 H [facility] CenterErythrocyte Sedimentation Jluk1924-57-82 17:00:00* Test Item Value Reference Range Interpretation Comments Erythrocyte Sedimentation Rate (test code = 4537-7) 48 0- 20 H [facility] CenterErythrocyte Sedimentation Puul5852-33-89 17:00:00* Test Item Value Reference Range Interpretation Comments Erythrocyte Sedimentation Rate (test code = 4537-7) 48 0- 20 H [facility] CenterErythrocyte Sedimentation Tzrw4354-43-65 17:00:00* Test Item Value Reference Range Interpretation Comments Erythrocyte Sedimentation Rate (test code = 4537-7) 48 0- 20 H [facility] CenterErythrocyte Sedimentation Iwsw7126-10-33 17:00:00* Test Item Value Reference Range Interpretation Comments Erythrocyte Sedimentation Rate (test code = 4537-7) 48 0- 20 H [facility] CenterErythrocyte Sedimentation Zekw6150-43-65 17:00:00* Test Item Value Reference Range Interpretation Comments Erythrocyte Sedimentation Rate (test code = 4537-7) 48 0- 20 H [facility] CenterErythrocyte Sedimentation Exyw3930-11-76 17:00:00* Test Item Value Reference Range Interpretation Comments Erythrocyte Sedimentation Rate (test code = 4537-7) 48 0- 20 H [facility] CenterErythrocyte Sedimentation Jtqw8672-89-57 17:00:00* Test Item Value Reference Range Interpretation Comments Erythrocyte Sedimentation Rate (test code = 4537-7) 48 0- 20 H [facility] CenterMRI FOOT LEFT QD5509-63-33 14:58:00 [facility] [address] [place] [address] Patient Name: ANGELA JEFFERS MR #: [id number] : 1945 Age/Sex: 73/F Req #: [id number] Adm Physician: CHERELLE VELASQUEZ MD Ordered by: CHERELLE VELASQUEZ MD Report #: [id number] Location: MED/SURG3 Room/Bed: 298-1 Procedure: [id number] M RI/MRI FOOT LEFT WO Exam Date: [...] 3:03 PM Dictated By: CRIS WALKER MD 1503 Transcribed By: ARIEL on 12/24/18 1503 COPY TO: CHERELLE VELASQUEZ MD Creatine Kinase ZQ7632-31-87 11:39:00* Test Item Value Reference Range Interpretation Comments Creatine Kinase MB (test code = 13155-9) 2.40 0-5.0 [facility] Y9153-03-21 11:39:00* Test Item Value Reference Range Interpretation Comments Troponin I (test code = IJU1965) 0.038 0-0.300 [facility] CenterCreatine Kinase KP9677-77-14 11:39:00* Test Item Value Reference Range Interpretation Comments Creatine Kinase MB (test code = 13434-2) 2.40 0-5.0 [facility] K1517-27-57 11:39:00* Test Item Value Reference Range Interpretation Comments Troponin I (test code = IIQ7141) 0.038 0-0.300 [facility] CenterCreatine Kinase UG0448-26-94 11:39:00* Test Item Value Reference Range Interpretation Comments Creatine Kinase MB (test code = 00526-4) 2.40 0-5.0 [place] 67105019-06-11 11:39:00* Test Item Value Reference Range Interpretation Comments Troponin I (test code = AMJ1392) 0.038 0-0.300 [facility] CenterCreatine Kinase HG5160-43-29 11:39:00* Test Item Value Reference Range Interpretation Comments Creatine Kinase MB (test code = 65798-1) 2.40 0-5.0 [place] 67105019-06-11 11:39:00* Test Item Value Reference Range Interpretation Comments Troponin I (test code = IPM1878) 0.038 0-0.300 [facility] CenterCreatine Kinase FS8836-22-69 11:39:00* Test Item Value Reference Range Interpretation Comments Creatine Kinase MB (test code = 11181-7) 2.40 0-5.0 [place] 67105019-06-11 11:39:00* Test Item Value Reference Range Interpretation Comments Troponin I (test code = QBZ7739) 0.038 0-0.300 [facility] CenterCreatine Kinase NY4176-22-17 11:39:00* Test Item Value Reference Range Interpretation Comments Creatine Kinase MB (test code = 66001-4) 2.40 0-5.0 [place] 67105019-06-11 11:39:00* Test Item Value Reference Range Interpretation Comments Troponin I (test code = IVB1967) 0.038 0-0.300 [facility] Allianceat[facility] Kinase AS2344-54-47 11:39:00* Test Item Value Reference Range Interpretation Comments Creatine Kinase MB (test code = 98466-6) 2.40 0-5.[address]06-11 11:39:00* Test Item Value Reference Range Interpretation Comments Troponin I (test code = OBF7052) 0.038 0-0.300 [facility] CenterCreatine Sfdwcx7492-02-50 11:35:00* Test Item Value Reference Range Interpretation Comments Creatine Kinase (test code = 2157-6) 152 29-168 [facility] CenterCreatine Jjknao8366-16-03 11:35:00* Test Item Value Reference Range Interpretation Comments Creatine Kinase (test code = 2157-6) 152 29-168 [facility] CenterCreatine Jxdmgt3043-87-56 11:35:00* Test Item Value Reference Range Interpretation Comments Creatine Kinase (test code = 2157-6) 152 29-168 [facility] CenterCreatine Pafkqz1366-17-07 11:35:00* Test Item Value Reference Range Interpretation Comments Creatine Kinase (test code = 2157-6) 152 29-168 [facility] CenterCreatine Wcgadj7909-26-93 11:35:00* Test Item Value Reference Range Interpretation Comments Creatine Kinase (test code = 2157-6) 152 29-168 [facility] CenterCreatine Ayjlzc6935-14-67 11:35:00* Test Item Value Reference Range Interpretation Comments Creatine Kinase (test code = 2157-6) 152 29-168 [facility] CenterCreatine Mjaqcu1075-54-88 11:35:00* Test Item Value Reference Range Interpretation Comments Creatine Kinase (test code = 2157-6) 152 29-168 [facility] CenterTotal Czevuzplu6791-53-11 06:55:00* Test Item Value Reference Range Interpretation Comments Total Bilirubin (test code = 1975-2) 0.4 0.2-1.2 [facility] CenterAspartate Amino Transf (AST/SGOT) 2018-12-24 06:55:00* Test Item Value Reference Range Interpretation Comments Aspartate Amino Transf (AST/SGOT) (test code = Aspartate Amino Transf (AST/SGOT)) 12 5-34 [facility] CenterAlanine Aminotransferase (ALT/SGPT) 2018-12-24 06:55:00* Test Item Value Reference Range Interpretation Comments Alanine Aminotransferase (ALT/SGPT) (test code = 1742-6) 8 0-55 [facility] CenterTotal Utdtyec2355-01-33 06:55:00* Test Item Value Reference Range Interpretation Comments Total Protein (test code = 2885-2) 6.5 6.5-8.1 [facility] CenterAlbumin2019-06-11 06:55:00* Test Item Value Reference Range Interpretation Comments Albumin (test code = 1751-7) 2.7 3.5-5.0 L [facility] CenterGlobulin2019-06-11 06:55:00* Test Item Value Reference Range Interpretation Comments Globulin (test code = 00783-4) 3.8 2.3-3.5 H [facility] CenterAlbumin/Globulin Gpfax4541-86-18 06:55:00 * Test Item Value Reference Range Interpretation Comments Albumin/Globulin Ratio (test code = 1759-0) 0.7 0.8-2.0 L [facility] CenterAlkaline Gkzblzagwoo6151-79-22 06:55:00* Test Item Value Reference Range Interpretation Comments Alkaline Phosphatase (test code = 6768-6) 76 40-150 [facility] CenterANKLE 3+ VIEWS RAVA6820-31-06 19:45:00 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 Globular muck miner blasting alization along the medial aspect of the distal tibia may represent HADD or se quela from prior trauma. IMPRESSION: Focal cortical erosion in the an terior plantar surface of the calcaneus suspicious for osteomyelitis. Sig davonte by: Baljeet Khanna MD on 12/23/2018 7:51 PM Dictated By: OZIEL KHANNA MD 50 T ranscribed By: ARIEL on 12/23/181950 COPY TO: KHURRAM ESCALANTE NP Lactic Acid Ljibm0984-86-31 19:39:00* Test Item Value Reference Range Interpretation Comments Lactic Acid Level (test code = Lactic Acid Level) 13.7 4.5- 19.8 [facility] CenterLactic Acid Rlurb1601-83-68 19:39:00* Test Item Value Reference Range Interpretation Comments Lactic Acid Level (test code = Lactic Acid Level) 13.7 4.5- 19.8 [facility] CenterLactic Acid Maskq1309-19-33 19:39:00* Test Item Value Reference Range Interpretation Comments Lactic Acid Level (test code = Lactic Acid Level) 13.7 4.5- 19.8 [facility] Zpmju6174-85-54 19:39:00* Test Item Value Reference Range Interpretation Comments Lactic Acid Level (test code = Lactic Acid Level) 13.7 4.5- 19.8 [facility] CenterLactic Acid Wgiyq9071-16-33 19:39:00* Test Item Value Reference Range Interpretation Comments Lactic Acid Level (test code = Lactic Acid Level) 13.7 4.5- 19.8 [facility] CenterLactic Acid Yvkzq6397-48-86 19:39:00* Test Item Value Reference Range Interpretation Comments Lactic Acid Level (test code = Lactic Acid Level) 13.7 4.5- 19.8 [facility] CenterLactic Acid Ifoht4506-44-57 19:39:00* Test Item Value Reference Range Interpretation Comments Lactic Acid Level (test code = Lactic Acid Level) 13.7 4.5- 19.8 [facility] CenterLactic Acid Zxwzw4994-85-43 19:39:00* Test Item Value Reference Range Interpretation Comments Lactic Acid Level (test code = Lactic Acid Level) 13.7 4.5- 19.8 [facility] CenterLactic Acid Inviq3648-78-84 19:39:00* Test Item Value Reference Range Interpretation Comments Lactic Acid Level (test code = Lactic Acid Level) 13.7 4.5- 19.8 [facility] CenterLactic Acid Pmwcu2095-11-19 19:39:00* Test Item Value Reference Range Interpretation Comments Lactic Acid Level (test code = Lactic Acid Level) 13.7 4.5- 19.8 [facility] CenterLactic Acid Pvkgw0342-72-28 19:39:00* Test Item Value Reference Range Interpretation Comments Lactic Acid Level (test code = Lactic Acid Level) 13.7 4.5- 19.8 [facility] CenterLactic Acid Mhwck0369-66-09 19:39:00* Test Item Value Reference Range Interpretation Comments Lactic Acid Level (test code = Lactic Acid Level) 13.7 4.5- 19.8 [facility] CenterBedside Jdvzsmo3728-36-73 15:39:00* Test Item Value Reference Range Interpretation Comments Bedside Glucose (test code = 08860-5) 209 70-120 H Meter ID: [id number] [facility] 2018-11-13 09:11:00* Test Item Value Reference Range Interpretation Comments Wound Culture (test code = 6462-6) Organism: GRAM NEGATIVE BACILLUS [facility] Mvhbp0102-37-31 10:30:00* Test Item Value Reference Range Interpretation Comments Sodium Level (test code = 2951-2) 135 136-145 L [facility] CenterPotassium Zmcms8007-39-60 10:30:00* Test Item Value Reference Range Interpretation Comments Potassium Level (test code = 2823-3) 4.8 3.5-5.1 [facility] CenterChloride Tnaxr2471-36-37 10:30:00* Test Item Value Reference Range Interpretation Comments Chloride Level (test code = 2075-0) 94 98-107 L [facility] CenterCarbon Dioxide Nqjoq0815-25-21 10:30:00* Test Item Value Reference Range Interpretation Comments Carbon Dioxide Level (test code = 2028-9) 26 22-29 [facility] CenterAnion Khy9896-07-30 10:30:00* Test Item Value Reference Range Interpretation Comments Anion Gap (test code = 50734-0) 19.8 8-16 H [facility] CenterBlood Urea Xtvepvdt8400-58-74 10:30:00* Test Item Value Reference Range Interpretation Comments Blood Urea Nitrogen (test code = 3094-0) 62 7-26 H [facility] CenterCreatinine2019-04-29 10:30:00* Test Item Value Reference Range Interpretation Comments Creatinine (test code = 2160-0) 10.15 0.57-1.11 H [facility] CenterBUN/Creatinine Hvpeq0680-71-37 10:30:00* Test Item Value Reference Range Interpretation Comments BUN/Creatinine Ratio (test code = 3097-3) 6 6-25 [facility] CenterEstimat Glomerular Filtration Rate 2018-11-11 10:30:00* Test Item Value Reference Range Interpretation Comments Estimat Glomerular Filtration Rate (test code = 703870670) 5 >60 L Ranges were taken from the National Kidney Disease Education Program and the [facility] Kidney Foundation literature.Reference ranges:60 or greater: Afgyoh26-13 ( for 3 consecutive months): Chronic kidney disease 15 or less: Kidney failureCHI St. [facility] CenterGlucose Bynqf5906-18-39 10:30:00* Test Item Value Reference Range Interpretation Comments Glucose Level (test code = WAP6103) 192 74-118 H [facility] CenterCalcium Otcqn7612-32-88 10:30:00* Test Item Value Reference Range Interpretation Comments Calcium Level (test code = 23838-8) 7.2 8.4-10.2 L [facility] CenterWhite Blood Kiryz8114-86-59 10:08:00* Test Item Value Reference Range Interpretation Comments White Blood Count (test code = 6690-2) 6.81 4.8-10.8 [facility] CenterRed Blood Otywj2506-82-37 10:08:00* Test Item Value Reference Range Interpretation Comments Red Blood Count (test code = 789-8) 3.93 3.6-5.1 [facility] CenterHemoglobin2019-04-29 10:08:00* Test Item Value Reference Range Interpretation Comments Hemoglobin (test code = 49586-5) 10.9 12.0-16.0 L [facility] CenterHematocrit2019-04-29 10:08:00* Test Item Value Reference Range Interpretation Comments Hematocrit (test code = 4544-3) 35.5 34.2-44.1 [facility] CenterMean Corpuscular Wbwbaw0657-54-62 10:08:00* Test Item Value Reference Range Interpretation Comments Mean Corpuscular Volume (test code = 787-2) 90.3 81-99 [facility] CenterMean Corpuscular Ojlndeeguv6263-04-47 10:08:00* Test Item Value Reference Range Interpretation Comments Mean Corpuscular Hemoglobin (test code = 785-6) 27.7 28-32 L [facility] CenterMean Corpuscular Hemoglobin Concent 2018-11-11 10:08:00* Test Item Value Reference Range Interpretation Comments Mean Corpuscular Hemoglobin Concent (test code = 786-4) 30.7 31-35 L [facility] CenterRed Cell Distribution Xdepr3630-77-11 10:08:00* Test Item Value Reference Range Interpretation Comments Red Cell Distribution Width (test code = 74081-1) 15.9 11.7 -14.4 H [facility] CenterPlatelet Xjnbs8770-10-93 10:08:00* Test Item Value Reference Range Interpretation Comments Platelet Count (test code = 777-3) 188 140-360 [facility] CenterNeutrophils (%) (Auto)2018-11-11 10:08:00 * Test Item Value Reference Range Interpretation Comments Neutrophils (%) (Auto) (test code = 70608-1) 72.7 38.7-80.0 [facility] CenterLymphocytes (%) (Auto)2018-11-11 10:08:00 * Test Item Value Reference Range Interpretation Comments Lymphocytes (%) (Auto) (test code = 736-9) 14.0 18.0-39.1 L [facility] CenterMonocytes (%) (Auto)2018-11-11 10:08:00* Test Item Value Reference Range Interpretation Comments Monocytes (%) (Auto) (test code = 5905-5) 11.2 4.4-11.3 [facility] CenterEosinophils (%) (Auto)2018-11-11 10:08:00 * Test Item Value Reference Range Interpretation Comments Eosinophils (%) (Auto) (test code = 713-8) 1.6 0.0-6.0 [facility] CenterBasophils (%) (Auto)2018-11-11 10:08:00* Test Item Value Reference Range Interpretation Comments Basophils (%) (Auto) (test code = 706-2) 0.1 0.0-1.0 [facility] CenterIM GRANULOCYTES %2018-11-11 10:08:00* Test Item Value Reference Range Interpretation Comments IM GRANULOCYTES % (test code = IM GRANULOCYTES %) 0.4 0.0- 1.0 [facility] CenterNeutrophils # (Auto)2018-11-11 10:08:00* Test Item Value Reference Range Interpretation Comments Neutrophils # (Auto) (test code = 751-8) 5.0 2.1-6.9 [facility] CenterLymphocytes # (Auto)2018-11-11 10:08:00* Test Item Value Reference Range Interpretation Comments Lymphocytes # (Auto) (test code = 39422-7) 1.0 1.0-3.2 [facility] CenterMonocytes # (Auto)2018-11-11 10:08:00* Test Item Value Reference Range Interpretation Comments Monocytes # (Auto) (test code = 742-7) 0.8 0.2-0.8 [facility] CenterEosinophils # (Auto)2018-11-11 10:08:00* Test Item Value Reference Range Interpretation Comments Eosinophils # (Auto) (test code = 711-2) 0.1 0.0-0.4 [facility] CenterBasophils # (Auto)2018-11-11 10:08:00* Test Item Value Reference Range Interpretation Comments Basophils # (Auto) (test code = 704-7) 0.0 0.0-0.1 [facility] CenterAbsolute Immature Granulocyte (auto 2018-11-11 10:08:00* Test Item Value Reference Range Interpretation Comments Absolute Immature Granulocyte (auto (toby t code = Absolute Immature Granulocyte (auto) 0.03 0-0.1 [facility] CenterC-Reactive Prvwpiq5872-35-30 08:46:00* Test Item Value Reference Range Interpretation Comments C-Reactive Protein (test code = 1988-5) 98.2 0.0-4.9 H Performed at: - Lab[address] [id number] Director: Ronald Arcos MD, Phone: [phone] Medical CenterHepatistarr regional medical center A IgM Ctvhadai1483-66-33 08:45:00* Test Item Value Reference Range Interpretation Comments Hepatitis A IgM Antibody (test code = 49133-4) Negative Negativ e [facility] B Surface Nczzmgg3258-39-24 08:45:00* Test Item Value Reference Range Interpretation Comments Hepatitis B Surface Antigen (test code = 5196-1) Negative Negat jinny [facility] B Core IgM Gdazaxrv4894-82-79 08:45:00* Test Item Value Reference Range Interpretation Comments Hepatitis B Core IgM Antibody (test code = 99877-5) Negative Ne tricia [facility] C Ylgzdkme2073-75-58 08:45:00* Test Item Value Reference Range Interpretation Comments Hepatitis C Antibody (test code = 69056-0) <0.1 0.0-0.9 Negative: < 0.8 Indeterminate: 0.8 - 0.9 Positive: > 0.9 The CDC recommends that a positive HCV antibody result be followed up with a HCV Nucleic Acid Amplification test (106843).Performed at: [facility] Resultly[address] [id number] Director: Ronald Arcos MD, Phone: [phone] Memorial Hospital A IgM Antibody 2018-11-08 08:45:00* Test Item Value Reference Range Interpretation Comments Hepatitis A IgM Antibody (test code = 59595-0) Negative [facility]Bell[facility] Jnxzuuxv9911-83-64 08:45:00* Test Item Value Reference Range Interpretation Comments Hepatitis C Antibody (test code = 67025-8) <0.1 0.0-0.9 Negative: < 0.8 Indeterminate: 0.8 - 0.9 Positive: > 0.9 The CDC recommends that a positive HCV antibody result be followed up with a HCV Nucleic Acid Amplification test (504365).Performed at: [facility] Resultly[address] [id number] Director: Ronald Arcos MD, Phone: [phone] Memorial Hospital A IgM Antibody 2018-11-08 08:45:00* Test Item Value Reference Range Interpretation Comments Hepatitis A IgM Antibody (test code = 88847-1) Negative Negativ [facility] C Piefcqpd4011-66-22 08:45:00* Test Item Value Reference Range Interpretation Comments Hepatitis C Antibody (test code = 11379-7) <0.1 0.0-0.9 Negative: < 0.8 Indeterminate: 0.8 - 0.9 Positive: > 0.9 The CDC recommends that a positive HCV antibody result be followed up with a HCV Nucleic Acid Amplification test (269269).Performed at: [address] [id number] Director: Ronald Arcos MD, Phone: [phone] Memorial Hospital A IgM Antibody 2018-11-08 08:45:00* Test Item Value Reference Range Interpretation Comments Hepatitis A IgM Antibody (test code = 83088-4) Negative Negativ [facility] C Foechdgh5850-73-32 08:45:00* Test Item Value Reference Range Interpretation Comments Hepatitis C Antibody (test code = 37045-5) <0.1 0.0-0.9 Negative: < 0.8 Indeterminate: 0.8 - 0.9 Positive: > 0.9 The CDC recommends that a positive HCV antibody result be followed up with a HCV Nucleic Acid Amplification test (899891).Performed at: [address] [id number] Director: Ronald Arcos MD, Phone: [phone] Memorial Hospital A IgM Antibody 2018-11-08 08:45:00* Test Item Value Reference Range Interpretation Comments Hepatitis A IgM Antibody (test code = 66131-2) Negative [facility] Ddxwfdii6332-31-81 08:45:00* Test Item Value Reference Range Interpretation Comments Hepatitis C Antibody (test code = 16156-0) <0.1 0.0-0.9 Negative: < 0.8 Indeterminate: 0.8 - 0.9 Positive: > 0.9 The CDC recommends that a positive HCV antibody result be followed up with a HCV Nucleic Acid Amplification test (987904).Performed at: [address] [id number] Director: Ronald Arcos MD, Phone: [phone] Medical CenterThyroid Stimulating Hormone (TSH)2018-11-08 06:38:00* Test Item Value Reference Range Interpretation Comments Thyroid Stimulating Hormone (TSH) (test code = 62355-9) 24.451 0.350-4.940 H [facility] SINGLE (PORTABLE)2018-11-07 15:08:00 [facility] [address] [address] Patient Name: ANGELA JEFFERS MR #: [id number] : 1945 Age/Sex: 73/F Req #: [id number] Adm Physician: CHERELLE VELASQUEZ MD Ordered by: CHERELLE VELASQUEZ MD Report #: [id number] Location: MED/SURG2 Room/Bed: [facility] Procedure: [id number] D X/CHEST SINGLE (PORTABLE) Exam Date: 11/07/18 [...] 3:11 PM Dictated By: CARLITA COOK MD 1513 Transcrib ed By: ARIEL on 11/07/18 1511 COPY TO: CHERELLE VELASQUEZ MD Total Zdlfzvndm3922-67-29 08:07:00* Test Item Value Reference Range Interpretation Comments Total Bilirubin (test code = 1975-2) 0.6 0.2-1.2 [facility] CenterAspartate Amino Transf (AST/SGOT) 2018-11-07 08:07:00* Test Item Value Reference Range Interpretation Comments Aspartate Amino Transf (AST/SGOT) (test code = Aspartate Amino Transf (AST/SGOT)) 11 5-34 [facility] CenterAlanine Aminotransferase (ALT/SGPT) 2018-11-07 08:07:00* Test Item Value Reference Range Interpretation Comments Alanine Aminotransferase (ALT/SGPT) (test code = 1742-6) 16 0-55 [facility] CenterTotal Hceacqp1467-63-05 08:07:00* Test Item Value Reference Range Interpretation Comments Total Protein (test code = 2885-2) 7.0 6.5-8.1 [facility] CenterAlbumin2019-04-25 08:07:00* Test Item Value Reference Range Interpretation Comments Albumin (test code = 1751-7) 2.5 3.5-5.0 L [facility] CenterGlobulin2019-04-25 08:07:00* Test Item Value Reference Range Interpretation Comments Globulin (test code = 58419-3) 4.5 2.3-3.5 H [facility] CenterAlbumin/Globulin Ihabr0456-83-33 08:07:00 * Test Item Value Reference Range Interpretation Comments Albumin/Globulin Ratio (test code = 1759-0) 0.6 0.8-2.0 L [facility] CenterAlkaline Djwqwykurla7456-14-84 08:07:00* Test Item Value Reference Range Interpretation Comments Alkaline Phosphatase (test code = 6768-6) 93 40-150 [facility] CenterTriglycerides Uasta4013-40-75 08:07:00* Test Item Value Reference Range Interpretation Comments Triglycerides Level (test code = 2571-8) 182 0-149 H [facility] CenterCholesterol Cgrcx5342-39-46 08:07:00* Test Item Value Reference Range Interpretation Comments Cholesterol Level (test code = 2093-3) 180 0-199 Less than 200 mg/dL Low Cpts274 - 239 mg/dL Borderline Cqdf956 m g/dl and greater High Risk [facility] CenterLDL Brpnmgtrqyx3546-59-16 08:07:00* Test Item Value Reference Range Interpretation Comments LDL Cholesterol (test code = 2089-1) 111 60-130 [facility] CenterHDL Gqhychqaszo0340-67-61 08:07:00* Test Item Value Reference Range Interpretation Comments HDL Cholesterol (test code = 2085-9) 33 40-60 L [facility] CenterCholesterol/HDL Goaai7801-81-97 08:07:00 * Test Item Value Reference Range Interpretation Comments Cholesterol/HDL Ratio (test code = 9830-1) 5.5 3.0-3.6 H [facility] CenterCreatine Yhjvzk8500-96-92 08:07:00* Test Item Value Reference Range Interpretation Comments Creatine Kinase (test code = 2157-6) 693 29-168 H [facility] CenterCreatine Kinase WE8231-59-71 08:07:00* Test Item Value Reference Range Interpretation Comments Creatine Kinase MB (test code = 75035-4) 3.60 0-5.0 [facility] CenterTroponin C1218-72-12 08:07:00* Test Item Value Reference Range Interpretation Comments Troponin I (test code = DHU3658) 0.041 0-0.300 [facility] CenterTriglycerides Tlvfm2551-15-88 08:07:00* Test Item Value Reference Range Interpretation Comments Triglycerides Level (test code = 2571-8) 182 0-149 H [facility] CenterCholesterol Odrnr9086-41-07 08:07:00* Test Item Value Reference Range Interpretation Comments Cholesterol Level (test code = 2093-3) 180 0-199 Less than 200 mg/dL Low Zlmy669 - 239 mg/dL Borderline Ypac424 m g/dl and greater High Risk [facility] CenterLDL Rdithnvvkfw5832-67-91 08:07:00* Test Item Value Reference Range Interpretation Comments LDL Cholesterol (test code = 2089-1) 111 60-130 [facility] Fcjeptvmpne6780-48-06 08:07:00* Test Item Value Reference Range Interpretation Comments HDL Cholesterol (test code = 2085-9) 33 40-60 L [facility] CenterCholesterol/HDL Tcxaj6519-52-65 08:07:00 * Test Item Value Reference Range Interpretation Comments Cholesterol/HDL Ratio (test code = 9830-1) 5.5 3.0-3.6 H [facility] CenterTriglycerides Shcwh3827-22-50 08:07:00* Test Item Value Reference Range Interpretation Comments Triglycerides Level (test code = 2571-8) 182 0-149 H [facility] CenterCholesterol Wyzfh5018-73-64 08:07:00* Test Item Value Reference Range Interpretation Comments Cholesterol Level (test code = 2093-3) 180 0-199 Less than 200 mg/dL Low Qqtt757 - 239 mg/dL Borderline Afqh429 m g/dl and greater High Risk [facility] CenterLDL Jkkwhebkctf6169-04-64 08:07:00* Test Item Value Reference Range Interpretation Comments LDL Cholesterol (test code = 2089-1) 111 60-130 [facility] Zwotrdyoets4751-66-59 08:07:00* Test Item Value Reference Range Interpretation Comments HDL Cholesterol (test code = 2085-9) 33 40-60 L [facility] CenterCholesterol/HDL Zfrxl4569-66-52 08:07:00 * Test Item Value Reference Range Interpretation Comments Cholesterol/HDL Ratio (test code = 9830-1) 5.5 3.0-3.6 H [facility] CenterTriglycerides Hwfji2235-10-93 08:07:00* Test Item Value Reference Range Interpretation Comments Triglycerides Level (test code = 2571-8) 182 0-149 H [facility] CenterCholesterol Osugi6463-83-29 08:07:00* Test Item Value Reference Range Interpretation Comments Cholesterol Level (test code = 2093-3) 180 0-199 Less than 200 mg/dL Low Kwpf807 - 239 mg/dL Borderline Ptvy925 m g/dl and greater High Risk [facility] CenterLDL Ixniimxzwel5839-59-23 08:07:00* Test Item Value Reference Range Interpretation Comments LDL Cholesterol (test code = 2089-1) 111 60-130 [facility] Flxgnyanstn4326-76-55 08:07:00* Test Item Value Reference Range Interpretation Comments HDL Cholesterol (test code = 2085-9) 33 40-60 L [facility] CenterCholesterol/HDL Efjts7336-58-03 08:07:00 * Test Item Value Reference Range Interpretation Comments Cholesterol/HDL Ratio (test code = 9830-1) 5.5 3.0-3.6 H [facility] CenterTriglycerides Jtnfe5730-59-66 08:07:00* Test Item Value Reference Range Interpretation Comments Triglycerides Level (test code = 2571-8) 182 0-149 H [facility] CenterCholesterol Yrpbe3109-23-41 08:07:00* Test Item Value Reference Range Interpretation Comments Cholesterol Level (test code = 2093-3) 180 0-199 Less than 200 mg/dL Low Gvoy702 - 239 mg/dL Borderline Wfsl236 m g/dl and greater High Risk [facility] CenterLDL Ianwotenhmd7074-41-41 08:07:00* Test Item Value Reference Range Interpretation Comments LDL Cholesterol (test code = 2089-1) 111 60-130 [facility] Ydubiqkkcnw2217-03-24 08:07:00* Test Item Value Reference Range Interpretation Comments HDL Cholesterol (test code = 2085-9) 33 40-60 L [facility] CenterCholesterol/HDL Bqsds9344-53-63 08:07:00 * Test Item Value Reference Range Interpretation Comments Cholesterol/HDL Ratio (test code = 9830-1) 5.5 3.0-3.6 H [facility] CenterTriglycerides Pvkgl8269-58-35 08:07:00* Test Item Value Reference Range Interpretation Comments Triglycerides Level (test code = 2571-8) 182 0-149 H [facility] CenterCholesterol Kcqmg5186-25-20 08:07:00* Test Item Value Reference Range Interpretation Comments Cholesterol Level (test code = 2093-3) 180 0-199 Less than 200 mg/dL Low Autd942 - 239 mg/dL Borderline Nlqn422 m g/dl and greater High Risk [facility] CenterLDL Zpykjismpmb1718-21-41 08:07:00* Test Item Value Reference Range Interpretation Comments LDL Cholesterol (test code = 2089-1) 111 60-130 [facility] Sjnavxrmrod1203-43-68 08:07:00* Test Item Value Reference Range Interpretation Comments HDL Cholesterol (test code = 2085-9) 33 40-60 L [facility] CenterCholesterol/HDL Emyep5763-05-97 08:07:00 * Test Item Value Reference Range Interpretation Comments Cholesterol/HDL Ratio (test code = 9830-1) 5.5 3.0-3.6 H [facility] CenterTriglycerides Pijjl8264-39-71 08:07:00* Test Item Value Reference Range Interpretation Comments Triglycerides Level (test code = 2571-8) 182 0-149 H [facility] CenterCholesterol Szqpq7522-47-71 08:07:00* Test Item Value Reference Range Interpretation Comments Cholesterol Level (test code = 2093-3) 180 0-199 Less than 200 mg/dL Low Ihwg140 - 239 mg/dL Borderline Stqg001 m g/dl and greater High Risk [facility] CenterLDL Sbatgclvmhl9564-87-23 08:07:00* Test Item Value Reference Range Interpretation Comments LDL Cholesterol (test code = 2089-1) 111 60-130 [facility] Vzdvjadxrgs7425-29-46 08:07:00* Test Item Value Reference Range Interpretation Comments HDL Cholesterol (test code = 2085-9) 33 40-60 L [facility] CenterCholesterol/HDL Iaeya1096-66-56 08:07:00 * Test Item Value Reference Range Interpretation Comments Cholesterol/HDL Ratio (test code = 9830-1) 5.5 3.0-3.6 H [facility] CenterTriglycerides Rxhxh6632-10-66 08:07:00* Test Item Value Reference Range Interpretation Comments Triglycerides Level (test code = 2571-8) 182 0-149 H [facility] CenterCholesterol Qurvs1592-63-20 08:07:00* Test Item Value Reference Range Interpretation Comments Cholesterol Level (test code = 2093-3) 180 0-199 Less than 200 mg/dL Low Esdv945 - 239 mg/dL Borderline Knjd647 m g/dl and greater High Risk [facility] CenterLDL Tpihsflunqf1692-63-43 08:07:00* Test Item Value Reference Range Interpretation Comments LDL Cholesterol (test code = 2089-1) 111 60-130 [facility]L Emvnfuptvun0831-48-46 08:07:00* Test Item Value Reference Range Interpretation Comments HDL Cholesterol (test code = 2085-9) 33 40-60 L [facility]Cholesterol/HDL Rsjks8292-76-08 08:07:00 * Test Item Value Reference Range Interpretation Comments Cholesterol/HDL Ratio (test code = 9830-1) 5.5 3.0-3.6 H [facility] CenterTriglycerides Ezzqo8922-44-50 08:07:00* Test Item Value Reference Range Interpretation Comments Triglycerides Level (test code = 2571-8) 182 0-149 H [facility] CenterCholesterol Cpbis9699-63-62 08:07:00* Test Item Value Reference Range Interpretation Comments Cholesterol Level (test code = 2093-3) 180 0-199 Less than 200 mg/dL Low Ojru221 - 239 mg/dL Borderline Tjdb026 m g/dl and greater High Risk [facility] CenterLDL Iuthfazxpfw6828-82-12 08:07:00* Test Item Value Reference Range Interpretation Comments LDL Cholesterol (test code = 2089-1) 111 60-130 [facility] Cmlvdczjfei2143-03-44 08:07:00* Test Item Value Reference Range Interpretation Comments HDL Cholesterol (test code = 2085-9) 33 40-60 L [facility]HDL Ndekd9848-86-12 08:07:00 * Test Item Value Reference Range Interpretation Comments Cholesterol/HDL Ratio (test code = 9830-1) 5.5 3.0-3.6 H [facility] CenterTriglycerides Zgmzk2372-27-98 08:07:00* Test Item Value Reference Range Interpretation Comments Triglycerides Level (test code = 2571-8) 182 0-149 H [facility] CenterCholesterol Ucshx9871-09-40 08:07:00* Test Item Value Reference Range Interpretation Comments Cholesterol Level (test code = 2093-3) 180 0-199 Less than 200 mg/dL Low Nosx874 - 239 mg/dL Borderline Kpip451 m g/dl and greater High Risk [facility] CenterLDL Lfofwmblsdb3794-19-94 08:07:00* Test Item Value Reference Range Interpretation Comments LDL Cholesterol (test code = 2089-1) 111 60-130 [facility] Pvascsxnnie9484-43-25 08:07:00* Test Item Value Reference Range Interpretation Comments HDL Cholesterol (test code = 2085-9) 33 40-60 L [facility]Ch[facility]HDL Pzhld6312-94-23 08:07:00 * Test Item Value Reference Range Interpretation Comments Cholesterol/HDL Ratio (test code = 9830-1) 5.5 3.0-3.6 H [facility] CenterTriglycerides Hqofv1482-32-94 08:07:00* Test Item Value Reference Range Interpretation Comments Triglycerides Level (test code = 2571-8) 182 0-149 H [facility] CenterCholesterol Oykus9415-72-21 08:07:00* Test Item Value Reference Range Interpretation Comments Cholesterol Level (test code = 2093-3) 180 0-199 Less than 200 mg/dL Low Cthl521 - 239 mg/dL Borderline Rsrd731 m g/dl and greater High Risk [facility] CenterLDL Xwxwvzngqpp9845-80-18 08:07:00* Test Item Value Reference Range Interpretation Comments LDL Cholesterol (test code = 2089-1) 111 60-130 [facility] Dhubbfxfmxp0081-89-61 08:07:00* Test Item Value Reference Range Interpretation Comments HDL Cholesterol (test code = 2085-9) 33 40-60 L [facility]Ch[facility]/HDL Bbeue7496-39-93 08:07:00 * Test Item Value Reference Range Interpretation Comments Cholesterol/HDL Ratio (test code = 9830-1) 5.5 3.0-3.6 H [facility] CenterTriglycerides Amqhd4715-20-77 08:07:00* Test Item Value Reference Range Interpretation Comments Triglycerides Level (test code = 2571-8) 182 0-149 H [facility] CenterCholesterol Zrkid6889-90-59 08:07:00* Test Item Value Reference Range Interpretation Comments Cholesterol Level (test code = 2093-3) 180 0-199 Less than 200 mg/dL Low Ftha787 - 239 mg/dL Borderline Uvsi681 m g/dl and greater High Risk [facility] CenterLDL Gtgaztlwceh6183-05-55 08:07:00* Test Item Value Reference Range Interpretation Comments LDL Cholesterol (test code = 2089-1) 111 60-130 [facility] CenterHDL Rjhdalzlqpl6663-38-95 08:07:00* Test Item Value Reference Range Interpretation Comments HDL Cholesterol (test code = 2085-9) 33 40-60 L [facility]Ch[facility]/HDL Siwqo5560-59-17 08:07:00 * Test Item Value Reference Range Interpretation Comments Cholesterol/HDL Ratio (test code = 9830-1) 5.5 3.0-3.6 H [facility] CenterFOOT LEFT LROBNSUC8307-25-42 16:57:00 [facility] [address] [place] [address] Patient Name: ANGELA JEFFERS MR #: [id number] : 1945 Age/Sex: 73/F Req #: [id number] Adm Physician: Ordered by: WILLIE SCHWARTZ MD Report #: [id number] Location: ER Room/Bed: Procedure: [id number] DX /FOOT LEFT COMPLETE Exam Date: 11/06/18 Exam Time: 1 600 REPORT STATUS: Signed Exa m: Left [...] WILLIE SCHWARTZ MD CHEST SINGLE (PORTABLE)2018-11-06 16:49:00 [place] [address] Patient Name: ANGELA JEFFERS MR #: [id number] : 1945 Age/Sex: 73/F Req #: [id number] Adm Physician: Ordered by: WILLIE SCHWARTZ MD Report #: [id number] Location: ER Room/Bed: Procedure: [id number] DX /CHEST SINGLE (PORTABLE) Exam Date: 11/06/18 [...] 11/06/181655 COPY TO: WILLIE SCHWARTZ MD Magnesium Hgewk3958-22-11 16:01:00* Test Item Value Reference Range Interpretation Comments Magnesium Level (test code = 44392-0) 2.3 1.3-2.1 H [facility] Miyll1572-44-40 16:01:00* Test Item Value Reference Range Interpretation Comments Magnesium Level (test code = 45602-1) 2.3 1.3-2.1 [facility] Oqeix4104-70-95 16:01:00* Test Item Value Reference Range Interpretation Comments Magnesium Level (test code = 35464-3) 2.3 1.3-2.1 H [facility] Uxscn3371-54-24 16:01:00* Test Item Value Reference Range Interpretation Comments Magnesium Level (test code = 22470-7) 2.3 1.3-2.1 H [facility] Tnwln4773-26-15 16:01:00* Test Item Value Reference Range Interpretation Comments Magnesium Level (test code = 32277-7) 2.3 1.3-2.1 H [facility] CenterB-Type Natriuretic Uetwhek6784-69-66 15:53:00* Test Item Value Reference Range Interpretation Comments B-Type Natriuretic Peptide (test code = 33930-0) 814.1 0-100 H [facility] CenterB-Type Natriuretic Yfngqpj8850-47-92 15:53:00* Test Item Value Reference Range Interpretation Comments B-Type Natriuretic Peptide (test code = 18399-5) 814.1 0-100 H [facility] CenterB-Type Natriuretic Ihxaztx6539-58-81 15:53:00* Test Item Value Reference Range Interpretation Comments B-Type Natriuretic Peptide (test code = 16568-7) 814.1 0-100 H [facility] CenterB-Type Natriuretic Siawmek9488-82-84 15:53:00* Test Item Value Reference Range Interpretation Comments B-Type Natriuretic Peptide (test code = 71215-3) 814.1 0-100 H [facility] CenterB-Type Natriuretic Awyvluc9262-01-84 15:53:00* Test Item Value Reference Range Interpretation Comments B-Type Natriuretic Peptide (test code = 91579-6) 814.1 0-100 H [facility] CenterB-Type Natriuretic Rfmlsca3378-70-93 15:53:00* Test Item Value Reference Range Interpretation Comments B-Type Natriuretic Peptide (test code = 46938-7) 814.1 0-100 H [facility] CenterProthrombin Rbpg2302-29-21 15:27:00* Test Item Value Reference Range Interpretation Comments Prothrombin Time (test code = 5902-2) 14.5 11.9-14.5 [facility] CenterProthromb Time International Ratio 2018-11-06 15:27:00* Test Item Value Reference Range Interpretation Comments Prothromb Time International Ratio (test code = 6301-6) 1.08 Oral Anticoagulant Therapy INR Values:1. Low Intensity Therapy 1.5 - 2.02 . Moderate Intensity Therapy 2.0 - 3.03. High Intensity Therapy(1) 2.5 - 3. 54. High Intensity Therapy(2) 3.0 - 4.05. Panic Value INR > 5.0 [facility] CenterActivated Partial Thromboplast Time 2018-11-06 15:27:00* Test Item Value Reference Range Interpretation Comments Activated Partial Thromboplast Time (test code = 15748-3) 38.8 23.8-35.5 H [facility] CenterProthrombin Ysdj4158-69-17 15:27:00* Test Item Value Reference Range Interpretation Comments Prothrombin Time (test code = 5902-2) 14.5 11.9-14.5 [facility] CenterProthromb Time International Ratio 2018-11-06 15:27:00* Test Item Value Reference Range Interpretation Comments Prothromb Time International Ratio (test code = 6301-6) 1.08 Oral Anticoagulant Therapy INR Values:1. Low Intensity Therapy 1.5 - 2.02 . Moderate Intensity Therapy 2.0 - 3.03. High Intensity Therapy(1) 2.5 - 3. 54. High Intensity Therapy(2) 3.0 - 4.05. Panic Value INR > 5.0 [facility] CenterActivated Partial Thromboplast Time 2018-11-06 15:27:00* Test Item Value Reference Range Interpretation Comments Activated Partial Thromboplast Time (test code = 93070-4) 38.8 23.8-35.5 H [facility] CenterProthrombin Nwip6697-52-67 15:27:00* Test Item Value Reference Range Interpretation Comments Prothrombin Time (test code = 5902-2) 14.5 11.9-14.5 [facility] CenterProthromb Time International Ratio 2018-11-06 15:27:00* Test Item Value Reference Range Interpretation Comments Prothromb Time International Ratio (test code = 6301-6) 1.08 Oral Anticoagulant Therapy INR Values:1. Low Intensity Therapy 1.5 - 2.02 . Moderate Intensity Therapy 2.0 - 3.03. High Intensity Therapy(1) 2.5 - 3. 54. High Intensity Therapy(2) 3.0 - 4.05. Panic Value INR > 5.0 [facility] CenterActivated Partial Thromboplast Time 2018-11-06 15:27:00* Test Item Value Reference Range Interpretation Comments Activated Partial Thromboplast Time (test code = 23976-7) 38.8 23.8-35.5 H [facility] CenterProthrombin Cryr9586-45-06 15:27:00* Test Item Value Reference Range Interpretation Comments Prothrombin Time (test code = 5902-2) 14.5 11.9-14.5 [facility] CenterProthromb Time International Ratio 2018-11-06 15:27:00* Test Item Value Reference Range Interpretation Comments Prothromb Time International Ratio (test code = 6301-6) 1.08 Oral Anticoagulant Therapy INR Values:1. Low Intensity Therapy 1.5 - 2.02 . Moderate Intensity Therapy 2.0 - 3.03. High Intensity Therapy(1) 2.5 - 3. 54. High Intensity Therapy(2) 3.0 - 4.05. Panic Value INR > 5.0 [facility] CenterActivated Partial Thromboplast Time 2018-11-06 15:27:00* Test Item Value Reference Range Interpretation Comments Activated Partial Thromboplast Time (test code = 62945-0) 38.8 23.8-35.5 H [facility] CenterProthrombin Tdjm3137-70-48 15:27:00* Test Item Value Reference Range Interpretation Comments Prothrombin Time (test code = 5902-2) 14.5 11.9-14.5 [facility] CenterProthromb Time International Ratio 2018-11-06 15:27:00* Test Item Value Reference Range Interpretation Comments Prothromb Time International Ratio (test code = 6301-6) 1.08 Oral Anticoagulant Therapy INR Values:1. Low Intensity Therapy 1.5 - 2.02 . Moderate Intensity Therapy 2.0 - 3.03. High Intensity Therapy(1) 2.5 - 3. 54. High Intensity Therapy(2) 3.0 - 4.05. Panic Value INR > 5.0 [facility] CenterActivated Partial Thromboplast Time 2018-11-06 15:27:00* Test Item Value Reference Range Interpretation Comments Activated Partial Thromboplast Time (test code = 79282-3) 38.8 23.8-35.5 H [facility] CenterProthrombin Jrpz8710-57-60 15:27:00* Test Item Value Reference Range Interpretation Comments Prothrombin Time (test code = 5902-2) 14.5 11.9-14.5 [facility] CenterProthromb Time International Ratio 2018-11-06 15:27:00* Test Item Value Reference Range Interpretation Comments Prothromb Time International Ratio (test code = 6301-6) 1.08 Oral Anticoagulant Therapy INR Values:1. Low Intensity Therapy 1.5 - 2.02 . Moderate Intensity Therapy 2.0 - 3.03. High Intensity Therapy(1) 2.5 - 3. 54. High Intensity Therapy(2) 3.0 - 4.05. Panic Value INR > 5.0 [facility] CenterActivated Partial Thromboplast Time 2018-11-06 15:27:00* Test Item Value Reference Range Interpretation Comments Activated Partial Thromboplast Time (test code = 89185-2) 38.8 23.8-35.5 H [facility] CenterActivated Partial Thromboplast Time 2018-11-06 15:27:00* Test Item Value Reference Range Interpretation Comments Activated Partial Thromboplast Time (test code = 00006-1) 38.8 23.8-35.5 H [facility] CenterActivated Partial Thromboplast Time 2018-11-06 15:27:00* Test Item Value Reference Range Interpretation Comments Activated Partial Thromboplast Time (test code = 36730-1) 38.8 23.8-35.5 H [facility] CenterTISSUE KEBT2788-24-54 16:11:00Surgical Pathology Report Case: [id number] Authorizing Provider: Goyo Haji, Collected: 09/10/2018 [place] KHANNA Ordering Location: [facility] Received: 09/10/2018 1506 SERVICES Pathologist: Rajesh Lund MD Specimen: Foot, Left, LEFT FOREFOOT FOOT, LEFT FOREFOOT, AMPUTATION- GANGRENOUS NECROSIS- DEFINITIVE ACUTE OSTEOMYELITIS NOT IDENTIFIED- FAT NECROSIS IN BONE MARROW UNDERLYING ULCER- SKIN, SOFT TISSUE AND BONE MARGINS VIABLE Signing Pathologist Direct Phone Line: [phone] signed by Rajesh Lund MD on 09/27/2018 at 4:11 [id number], [id number] Left forefootThe sp ecimen is received in [...] to 5th digit respectively. CG/pl Perf ormed.BLOOD RFZPHNI9228-75-54 11:02:00* Test Item Value Reference Range Interpretation Comments CULTURE (BEAKER) (test code = 1095) No growth in 5 days BLOOD LDMLKTO0504-46-40 01:00:00* Test Item Value Reference Range Interpretation Comments CULTURE (BEAKER) (test code = 1095) No growth in 5 days POCT-GLUCOSE TIAIF9112-57-05 14:45:00* Test Item Value Reference Range Interpretation Comments POC-GLUCOSE METER (BEAKER) (test code = 1538) 192 mg/dL 70-110 H TESTED AT [facility] [address] [facility] [address] POCT-GLUCOSE [id number] 12:52:00* Test Item Value Reference Range Interpretation Comments POC-GLUCOSE METER (BEAKER) (test code = 1538) 146 mg/dL 70-110 H TESTED AT [facility] [address] [facility] [address] POCT-GLUCOSE [id number] 08:41:00* Test Item Value Reference Range Interpretation Comments POC-GLUCOSE METER (BEAKER) (test code = 1538) 244 mg/dL 70-110 H TESTED AT [facility] [address] [facility] [address] BASIC METABOLIC [id number] 06:23:00* Test Item Value Reference Range Interpretation [...] DIALYSIS PATIENTS. CBC W/PLT COUNT & AUTO HGFBRBUFZEDW3174-23-08 05:44:00* Test Item Value Reference Range Interpretation [...] code = 2801) 0 % 0-1 POCT-GLUCOSE [id number] 21:42:00* Test Item Value Reference Range Interpretation Comments POC-GLUCOSE METER (BEAKER) (test code = 1538) 141 mg/dL 70-110 H TESTED AT [place] [id number] [facility] [address] POCT-GLUCOSE [id number] 18:00:00* Test Item Value Reference Range Interpretation Comments POC-GLUCOSE METER (BEAKER) (test code = 1538) 154 mg/dL 70-110 H TESTED AT [address] [address] POCT-GLUCOSE [id number] 17:17:00* Test Item Value Reference Range Interpretation Comments POC-GLUCOSE METER (BEAKER) (test code = 1538) 206 mg/dL 70-110 H TESTED AT [address] [address] POCT-GLUCOSE [id number] 08:33:00* Test Item Value Reference Range Interpretation Comments POC-GLUCOSE METER (BEAKER) (test code = 1538) 141 mg/dL 70-110 H TESTED AT [place] [address] [facility] [address] POCT-GLUCOSE [id number] 22:08:00* Test Item Value Reference Range Interpretation Comments POC-GLUCOSE METER (BEAKER) (test code = 1538) 152 mg/dL 70-110 H TESTED AT [address] [address] POCT-GLUCOSE [id number] 16:36:00* Test Item Value Reference Range Interpretation Comments POC-GLUCOSE METER (BEAKER) (test code = 1538) 134 mg/dL 70-110 H TESTED AT [address] [address] POCT-GLUCOSE [id number] 11:49:00* Test Item Value Reference Range Interpretation Comments POC-GLUCOSE METER (BEAKER) (test code = 1538) 205 mg/dL 70-110 H TESTED AT [address] [address] POCT-GLUCOSE [id number] 09:33:00* Test Item Value Reference Range Interpretation Comments POC-GLUCOSE METER (BEAKER) (test code = 1538) 190 mg/dL 70-110 H TESTED AT [address] [address] POCT-GLUCOSE [id number] 21:27:00* Test Item Value Reference Range Interpretation Comments POC-GLUCOSE METER (BEAKER) (test code = 1538) 231 mg/dL 70-110 H TESTED AT [address] [address] BASIC METABOLIC [id number] 16:52:00* Test Item Value Reference Range Interpretation [...] IS NOT APPLICABLE FOR DIALYSIS PATIENTS. POCT-GLUCOSE [id number] 12:53:00* Test Item Value Reference Range Interpretation Comments POC-GLUCOSE METER (BEAKER) (test code = 1538) 181 mg/dL 70-110 H TESTED AT [facility] [address] [facility] [address] POCT-GLUCOSE [id number] 09:31:00* Test Item Value Reference Range Interpretation Comments POC-GLUCOSE METER (BEAKER) (test code = 1538) 202 mg/dL 70-110 H TESTED AT [address] [address] CBC W/PLT COUNT & AUTO [id number] 06:58:00* Test Item Value Reference Range Interpretation [...] code = 2801) 1 % 0-1 POCT-GLUCOSE [id number] 20:59:00* Test Item Value Reference Range Interpretation Comments POC-GLUCOSE METER (BEAKER) (test code = 1538) 235 mg/dL 70-110 H TESTED AT [place] [address] POCT-GLUCOSE [id number] 18:57:00* Test Item Value Reference Range Interpretation Comments POC-GLUCOSE METER (BEAKER) (test code = 1538) 199 mg/dL 70-110 H TESTED AT [address] [address] POCT-GLUCOSE [id number] 13:03:00* Test Item Value Reference Range Interpretation Comments POC-GLUCOSE METER (BEAKER) (test code = 1538) 200 mg/dL 70-110 H TESTED AT [address] [address] POCT-GLUCOSE [id number] 09:06:00* Test Item Value Reference Range Interpretation Comments POC-GLUCOSE METER (BEAKER) (test code = 1538) 222 mg/dL 70-110 H TESTED AT [address] [address] CBC W/PLT COUNT & AUTO [id number] 06:32:00* Test Item Value Reference Range Interpretation [...] code = 2801) 1 % 0-1 POCT-GLUCOSE [id number] 21:49:00* Test Item Value Reference Range Interpretation Comments POC-GLUCOSE METER (BEAKER) (test code = 1538) 207 mg/dL 70-110 H TESTED AT [address] [address] POCT-GLUCOSE [id number] 17:54:00* Test Item Value Reference Range Interpretation Comments POC-GLUCOSE METER (BEAKER) (test code = 1538) 187 mg/dL 70-110 H TESTED AT [address] [address] POCT-GLUCOSE [id number] 16:12:00* Test Item Value Reference Range Interpretation Comments POC-GLUCOSE METER (BEAKER) (test code = 1538) 120 mg/dL 70-110 H TESTED AT [address] [address] POCT-GLUCOSE [id number] 08:05:00* Test Item Value Reference Range Interpretation Comments POC-GLUCOSE METER (BEAKER) (test code = 1538) 151 mg/dL 70-110 H TESTED AT [address] [address] CBC W/PLT COUNT & AUTO [id number] 06:10:00* Test Item Value Reference Range Interpretation [...] = 2801) 1 % 0-1 BASIC METABOLIC [id number] 06:02:00* Test Item Value Reference Range Interpretation [...] IS NOT APPLICABLE FOR DIALYSIS PATIENTS. POCT-GLUCOSE [id number] 21:11:00* Test Item Value Reference Range Interpretation Comments POC-GLUCOSE METER (BEAKER) (test code = 1538) 126 mg/dL 70-110 H TESTED AT [place] [address] [facility] [address] POCT-GLUCOSE [id number] 18:39:00* Test Item Value Reference Range Interpretation Comments POC-GLUCOSE METER (BEAKER) (test code = 1538) 140 mg/dL 70-110 H TESTED AT [address] [address] POCT-GLUCOSE [id number] 13:26:00* Test Item Value Reference Range Interpretation Comments POC-GLUCOSE METER (BEAKER) (test code = 1538) 149 mg/dL 70-110 H TESTED AT [address] [address] POCT-GLUCOSE [id number] 09:21:00* Test Item Value Reference Range Interpretation Comments POC-GLUCOSE METER (BEAKER) (test code = 1538) 155 mg/dL 70-110 H TESTED AT [address] [address] BASIC METABOLIC [id number] 07:18:00* Test Item Value Reference Range Interpretation [...] GFR IS NOT APPLICABLE FOR DIALYSIS PATIENTS. PT/[id number] 06:02:00* Test Item Value Reference Range Interpretation [...] mechanical heart valves.CBC W/PLT COUNT & AUTO TPAWPBGZNFLU0846-26-83 05:59:00* Test Item Value Reference Range Interpretation [...] code = 2801) 1 % 0-1 POCT-GLUCOSE [id number] 22:01:00* Test Item Value Reference Range Interpretation Comments POC-GLUCOSE METER (BEAKER) (test code = 1538) 125 mg/dL 70-110 H TESTED AT [address] [address] POCT-GLUCOSE [id number] 19:06:00* Test Item Value Reference Range Interpretation Comments POC-GLUCOSE METER (BEAKER) (test code = 1538) 153 mg/dL 70-110 H TESTED AT [place] [address] [facility] [address] POCT-GLUCOSE [id number] 17:14:00* Test Item Value Reference Range Interpretation Comments POC-GLUCOSE METER (BEAKER) (test code = 1538) 163 mg/dL 70-110 H TESTED AT [address] [address] POTASSIUM-STAT [id number] 13:39:00* Test Item Value Reference Range Interpretation [...] = 2590) 13 % 20-5 5 L [id number] 11:06:00* Test Item Value Reference Range Interpretation Comments PHOSPHORUS (BEAKER) (test code = 604) 2.0 mg/dL 2.3-4.7 L PT/[id number] 03:18:00* Test Item Value Reference Range Interpretation [...] ients with mechanical heart valves.HEPATITIS B SURFACE XUQVHHK0312-00-61 00:56:00* Test Item Value Reference Range Interpretation Comments HEPATITIS B SURFACE ANTIGEN (2) (BEAKER) (test code = 2585) Nonreactive Nonreactive HEPATIC FUNCTION [id number] 00:34:00* Test Item Value Reference Range Interpretation [...] 347) < U/L 6-55 L BASIC METABOLIC [id number] 00:34:00* Test Item Value Reference Range Interpretation [...] GFR IS NOT APPLICABLE FOR DIALYSIS PATIENTS. [id number] 00:30:00* Test Item Value Reference Range Interpretation Comments MAGNESIUM (BEAKER) (test code = 627) 1.6 mg/dL 1.6-2.6 CBC W/PLT COUNT & AUTO [id number] 00:04:00* Test Item Value Reference Range Interpretation [...] code = 2801) 1 % 0-1 POCT-GLUCOSE [id number] 23:14:00* Test Item Value Reference Range Interpretation Comments POC-GLUCOSE METER (BEAKER) (test code = 1538) 248 mg/dL 70-110 H TESTED AT [address] [address] Sodium Wujyr8384-69-71 01:09:00* Test Item Value Reference Range Interpretation Comments Sodium Level (test code = 2951-2) 135 136-145 L [facility] CenterPotassium Bvooa7773-21-56 01:09:00* Test Item Value Reference Range Interpretation Comments Potassium Level (test code = 2823-3) 4.8 3.5-5.1 [facility] CenterChloride Ejvsy9501-35-89 01:09:00* Test Item Value Reference Range Interpretation Comments Chloride Level (test code = 2075-0) 94 98-107 L [facility] CenterCarbon Dioxide Eodfj0120-47-76 01:09:00* Test Item Value Reference Range Interpretation Comments Carbon Dioxide Level (test code = 2028-9) 19 22-29 L [facility] CenterAnion Cnq0363-08-61 01:09:00* Test Item Value Reference Range Interpretation Comments Anion Gap (test code = 92416-6) 26.8 8-16 H [facility] CenterBlood Urea Ndoupwzv8883-36-75 01:09:00* Test Item Value Reference Range Interpretation Comments Blood Urea Nitrogen (test code = 3094-0) 91 7-26 H [facility] CenterCreatinine2019-02-06 01:09:00* Test Item Value Reference Range Interpretation Comments Creatinine (test code = 2160-0) 16.71 0.57-1.11 H [facility] CenterBUN/Creatinine [id number] 01:09:00* Test Item Value Reference Range Interpretation Comments BUN/Creatinine Ratio (test code = 3097-3) 5 6-25 L [facility] CenterEstimat Glomerular Filtration Rate 2018-08-21 01:09:00* Test Item Value Reference Range Interpretation Comments Estimat Glomerular Filtration Rate (test code = 020441271) 3 >60 L Ranges were taken from the National Kidney Disease Education Program and the [employer] literature.Reference ranges:60 or greater: Gkkjcm69-86 ( for 3 consecutive months): Chronic kidney disease 15 or less: Kidney failureOakBend Medical CenterGlucose Yvoup6619-35-54 01:09:00* Test Item Value Reference Range Interpretation Comments Glucose Level (test code = FYU2200) 99 74-118 [facility] CenterCalcium Pjyzd6103-11-32 01:09:00* Test Item Value Reference Range Interpretation Comments Calcium Level (test code = 06406-2) 7.8 8.4-10.2 L [facility] CenterTISSUE WBIB8579-08-13 15:50:00Surgical Pathology Report Case: [id number] Authorizing Provider: Goyo Haji, Collected: 07/25/2018 [place] KHANNA Ordering Location: [facility] Received: 07/25/2018 1439 SERVICES Pathologist: Cristobal Triana MD Specimen: Toe, Left, SECOND TOE TOE, LEFT 2ND, AMPUTATION:- SKIN, SOFT TISSUE, AND BONE MARGINS, VIABLE AND NEGATIVE FOR ACUTE INFLAMMATION- SKIN WITH REACTIVE CHANGES- UNDERLYING BONE WITH CHRONIC OSTEOMYELITIS Signing Pathologist Direct Phone Line: [phone] signed by Luis Triana MD on 07/30/2018 at 3:50 [id number], [id number] of toePer review of th e electronic medical record in [facility]: this is a 73 year old woman [...] erlying bone submitted for decal. CG/ew Performed.POCT-GLUCOSE [id number] 13:58:00* Test Item Value Reference Range Interpretation Comments POC-GLUCOSE METER (BEAKER) (test code = 1538) 166 mg/dL 70-110 H TESTED AT [address] [address] POCT-GLUCOSE [id number] 09:51:00* Test Item Value Reference Range Interpretation Comments POC-GLUCOSE METER (BEAKER) (test code = 1538) 127 mg/dL 70-110 H TESTED AT [place] [id number] [facility] [address] POCT-GLUCOSE [id number] 21:38:00* Test Item Value Reference Range Interpretation Comments POC-GLUCOSE METER (BEAKER) (test code = 1538) 131 mg/dL 70-110 H TESTED AT [address] [address] POCT-GLUCOSE [id number] 18:52:00* Test Item Value Reference Range Interpretation Comments POC-GLUCOSE METER (BEAKER) (test code = 1538) 138 mg/dL 70-110 H TESTED AT [place] [id number] [facility] [address] POCT-GLUCOSE [id number] 14:31:00* Test Item Value Reference Range Interpretation Comments POC-GLUCOSE METER (BEAKER) (test code = 1538) 141 mg/dL 70-110 H TESTED AT [address] [address] BASIC METABOLIC [id number] 08:40:00* Test Item Value Reference Range Interpretation [...] IS NOT APPLICABLE FOR DIALYSIS PATIENTS. POCT-GLUCOSE [id number] 23:05:00* Test Item Value Reference Range Interpretation Comments POC-GLUCOSE METER (BEAKER) (test code = 1538) 147 mg/dL 70-110 H TESTED AT [place] [address] [facility] [address] POCT-GLUCOSE [id number] 18:19:00* Test Item Value Reference Range Interpretation Comments POC-GLUCOSE METER (BEAKER) (test code = 1538) 215 mg/dL 70-110 H TESTED AT [address] [address] POCT-GLUCOSE [id number] 13:40:00* Test Item Value Reference Range Interpretation Comments POC-GLUCOSE METER (BEAKER) (test code = 1538) 139 mg/dL 70-110 H TESTED AT [place] [id number] [facility] [address] POCT-GLUCOSE [id number] 08:53:00* Test Item Value Reference Range Interpretation Comments POC-GLUCOSE METER (BEAKER) (test code = 1538) 130 mg/dL 70-110 H TESTED AT [address] [address] POCT-GLUCOSE [id number] 23:50:00* Test Item Value Reference Range Interpretation Comments POC-GLUCOSE METER (BEAKER) (test code = 1538) 239 mg/dL 70-110 H TESTED AT [address] [address] PLATELET AGGREGATION: FUNCTION [id number] 18:58:00* Test Item Value Reference Range Interpretation Comments WEAK ADP RESULT(BEAKER) (test code = 2135) 37 % 60-91 L PLATELET FUNCTION SCREEN INTERP (BEAKER) (test code = 2173) 0-39% indicates marked platelet dysfunction [id number]-[id number]-[id number] (BEAKER) (test code = 2622) Sonal Vilchis MD (electronic signature) PLATELET COUNT AGG (BEAKER) (test code = 2656) 235 K/CU MM 150-430 Platelet Function Screen results may be falsely low with platelet counts< 100,000/cu mm.[id number] 16:38:00* Test Item Value Reference Range Interpretation Comments PHOSPHORUS (BEAKER) (test code = 604) 5.5 mg/dL 2.3-4.7 H POCT-GLUCOSE [id number] 12:37:00* Test Item Value Reference Range Interpretation Comments POC-GLUCOSE METER (BEAKER) (test code = 1538) 112 mg/dL 70-110 H TESTED AT [address] [address] POCT-GLUCOSE [id number] 08:34:00* Test Item Value Reference Range Interpretation Comments POC-GLUCOSE METER (BEAKER) (test code = 1538) 157 mg/dL 70-110 H TESTED AT [address] [address] BASIC METABOLIC [id number] 04:14:00* Test Item Value Reference Range Interpretation [...] DIALYSIS PATIENTS. CBC W/PLT COUNT & AUTO [id number] 03:57:00* Test Item Value Reference Range Interpretation [...] code = 2801) 0 % 0-1 POCT-GLUCOSE [id number] 21:24:00* Test Item Value Reference Range Interpretation Comments POC-GLUCOSE METER (BEAKER) (test code = 1538) 159 mg/dL 70-110 H TESTED AT [place] [address] [id number] 19:36:00* Test Item Value Reference Range Interpretation Comments ACTIVATED CLOTTING TIME (BEAKER) (test code = 441) 136 sec TESTED AT [place] [address] POCT-GLUCOSE [id number] 19:02:00* Test Item Value Reference Range Interpretation Comments POC-GLUCOSE METER (BEAKER) (test code = 1538) 180 mg/dL 70-110 H TESTED AT [place] [address] [id number] 17:56:00* Test Item Value Reference Range Interpretation Comments ACTIVATED CLOTTING TIME (BEAKER) (test code = 441) 142 sec TESTED AT [place] [address] [id number] 16:48:00* Test Item Value Reference Range Interpretation Comments ACTIVATED CLOTTING TIME (BEAKER) (test code = 441) 153 sec TESTED AT [place] [address] [id number] 14:49:00* Test Item Value Reference Range Interpretation Comments ACTIVATED CLOTTING TIME (BEAKER) (test code = 441) 180 sec TESTED AT [address] [address] POCT-GLUCOSE [id number] 13:30:00* Test Item Value Reference Range Interpretation Comments POC-GLUCOSE METER (BEAKER) (test code = 1538) 132 mg/dL 70-110 H TESTED AT [address] [address] [id number] 10:20:00* Test Item Value Reference Range Interpretation Comments ACTIVATED CLOTTING TIME (BEAKER) (test code = 441) 285 sec TESTED AT [place] [address] POCT-GLUCOSE [id number] 06:44:00* Test Item Value Reference Range Interpretation Comments POC-GLUCOSE METER (BEAKER) (test code = 1538) 169 mg/dL 70-110 H TESTED AT [address] [address] POCT-GLUCOSE [id number] 21:29:00* Test Item Value Reference Range Interpretation Comments POC-GLUCOSE METER (BEAKER) (test code = 1538) 242 mg/dL 70-110 H TESTED AT [place] [address] BASIC METABOLIC [id number] 16:46:00* Test Item Value Reference Range Interpretation [...] GFR IS NOT APPLICABLE FOR DIALYSIS PATIENTS. [id number] 16:45:00* Test Item Value Reference Range Interpretation Comments PHOSPHORUS (BEAKER) (test code = 604) 5.5 mg/dL 2.3-4.7 H CBC W/PLT COUNT & AUTO [id number] 16:24:00* Test Item Value Reference Range Interpretation [...] code = 2801) 0 % 0-1 POCT-GLUCOSE [id number] 11:44:00* Test Item Value Reference Range Interpretation Comments POC-GLUCOSE METER (BEAKER) (test code = 1538) 186 mg/dL 70-110 H TESTED AT [address] [address] POCT-GLUCOSE [id number] 21:08:00* Test Item Value Reference Range Interpretation Comments POC-GLUCOSE METER (BEAKER) (test code = 1538) 172 mg/dL 70-110 H TESTED AT [address] [address] C. DIFFICILE GDH [id number] 17:14:00* Test Item Value Reference Range Interpretation Comments CDT TOXIN (test code = 4952300376) Negative Negative CDT GDH ANTIGEN (test code = 3170383601) Negative Negative No indication of Clostridium difficile infection and no colonization. Discontinue enteric isolation and therapy. Testing performed by [employer] Rapid Cassette Assay. For GDH, published sensitivity of the assay is 98.7% compared to cytotoxicity testing. For Toxin AB, published sensitivity is 87.8% and specificity 99.4% compared to cytotoxicity testing.Ve rification of kit performance was done by the [facility] Microbiology Lab prior to cl inical use.POCT-GLUCOSE [id number] 16:12:00* Test Item Value Reference Range Interpretation Comments POC-GLUCOSE METER (BEAKER) (test code = 1538) 199 mg/dL 70-110 H TESTED AT [address] [address] POCT-GLUCOSE [id number] 11:33:00* Test Item Value Reference Range Interpretation Comments POC-GLUCOSE METER (BEAKER) (test code = 1538) 150 mg/dL 70-110 H TESTED AT [address] [address] POCT-GLUCOSE [id number] 08:02:00* Test Item Value Reference Range Interpretation Comments POC-GLUCOSE METER (BEAKER) (test code = 1538) 190 mg/dL 70-110 H TESTED AT [address] [address] POCT-GLUCOSE [id number] 21:37:00* Test Item Value Reference Range Interpretation Comments POC-GLUCOSE METER (BEAKER) (test code = 1538) 243 mg/dL 70-110 H TESTED AT [address] [address] POCT-GLUCOSE [id number] 16:51:00* Test Item Value Reference Range Interpretation Comments POC-GLUCOSE METER (BEAKER) (test code = 1538) 136 mg/dL 70-110 H TESTED AT [address] [address] HEPATITIS B SURFACE [id number] 15:42:00* Test Item Value Reference Range Interpretation Comments HEPATITIS B SURFACE ANTIGEN (2) (BEAKER) (test code = 2585) Nonreactive Nonreactive For chronic HD patients, draw HBsAg with each admission then every 30 days. [id number] 15:22:00* Test Item Value Reference Range Interpretation Comments PHOSPHORUS (BEAKER) (test code = 604) 8.6 mg/dL 2.3-4.7 H POCT-GLUCOSE [id number] 11:35:00* Test Item Value Reference Range Interpretation Comments POC-GLUCOSE METER (BEAKER) (test code = 1538) 98 mg/dL 70-110 TESTED AT [address] [address] POCT-GLUCOSE [id number] 07:55:00* Test Item Value Reference Range Interpretation Comments POC-GLUCOSE METER (BEAKER) (test code = 1538) 250 mg/dL 70-110 H TESTED AT [address] [address] BASIC METABOLIC [id number] 07:02:00* Test Item Value Reference Range Interpretation [...] DIALYSIS PATIENTS. CBC W/PLT COUNT & AUTO [id number] 06:23:00* Test Item Value Reference Range Interpretation [...] code = 2801) 0 % 0-1 POCT-GLUCOSE [id number] 20:32:00* Test Item Value Reference Range Interpretation Comments POC-GLUCOSE METER (BEAKER) (test code = 1538) 205 mg/dL 70-110 H TESTED AT [address] [address] Phosphorus [id number] 15:13:00* Test Item Value Reference Range Interpretation Comments Phosphorus Level (test code = GGR3052) 8.7 2.3-4.7 H [facility]Magnesium Dpqrw5066-09-10 15:13:00* Test Item Value Reference Range Interpretation Comments Magnesium Level (test code = 26871-7) 2.4 1.3-2.1 H [facility] CenterTotal Alrfzilok9042-14-20 15:13:00* Test Item Value Reference Range Interpretation Comments Total Bilirubin (test code = 1975-2) 0.5 0.2-1.2 [facility] CenterAspartate Amino Transf (AST/SGOT) 2018-05-20 15:13:00* Test Item Value Reference Range Interpretation Comments Aspartate Amino Transf (AST/SGOT) (test code = Aspartate Amino Transf (AST/SGOT)) 22 5-34 [facility] CenterAlanine Aminotransferase (ALT/SGPT) 2018-05-20 15:13:00* Test Item Value Reference Range Interpretation Comments Alanine Aminotransferase (ALT/SGPT) (test code = 1742-6) 9 0-55 [facility] CenterTotal Xsaktek9172-52-31 15:13:00* Test Item Value Reference Range Interpretation Comments Total Protein (test code = 2885-2) 8.0 6.5-8.1 [facility] CenterAlbumin2018-11-05 15:13:00* Test Item Value Reference Range Interpretation Comments Albumin (test code = 1751-7) 3.3 3.5-5.0 L [facility] CenterGlobulin2018-11-05 15:13:00* Test Item Value Reference Range Interpretation Comments Globulin (test code = 85257-7) 4.7 2.3-3.5 H [facility] CenterAlbumin/Globulin Xrpsr6910-22-13 15:13:00 * Test Item Value Reference Range Interpretation Comments Albumin/Globulin Ratio (test code = 1759-0) 0.7 0.8-2.0 L [facility] CenterAlkaline Ubayvomeoru5490-08-57 15:13:00* Test Item Value Reference Range Interpretation Comments Alkaline Phosphatase (test code = 6768-6) 88 40-150 [facility] CenterPhosphorus Kxjot9114-56-08 15:13:00* Test Item Value Reference Range Interpretation Comments Phosphorus Level (test code = BYZ2317) 8.7 2.3-4.7 H [facility] CenterPhosphorus Woeot8565-26-55 15:13:00* Test Item Value Reference Range Interpretation Comments Phosphorus Level (test code = FXV9811) 8.7 2.3-4.7 H [facility] CenterPhosphorus Qjumi8954-76-18 15:13:00* Test Item Value Reference Range Interpretation Comments Phosphorus Level (test code = BRD8030) 8.7 2.3-4.7 H [facility] CenterWhite Blood Wqrre3083-36-43 14:47:00* Test Item Value Reference Range Interpretation Comments White Blood Count (test code = 6690-2) 5.48 4.8-10.8 [facility] CenterRed Blood Tpyag3547-82-09 14:47:00* Test Item Value Reference Range Interpretation Comments Red Blood Count (test code = 789-8) 4.06 3.6-5.1 [facility] CenterHemoglobin2018-11-05 14:47:00* Test Item Value Reference Range Interpretation Comments Hemoglobin (test code = 31896-8) 11.5 12.0-16.0 L [facility] CenterHematocrit2018-11-05 14:47:00* Test Item Value Reference Range Interpretation Comments Hematocrit (test code = 4544-3) 37.4 34.2-44.1 [facility] CenterMean Corpuscular Kgbugo1280-19-91 14:47:00* Test Item Value Reference Range Interpretation Comments Mean Corpuscular Volume (test code = 787-2) 92.1 81-99 [facility] CenterMean Corpuscular Sacenakloo2126-58-37 14:47:00* Test Item Value Reference Range Interpretation Comments Mean Corpuscular Hemoglobin (test code = 785-6) 28.3 28-32 [facility] CenterMean Corpuscular Hemoglobin Concent 2018-05-20 14:47:00* Test Item Value Reference Range Interpretation Comments Mean Corpuscular Hemoglobin Concent (test code = 786-4) 30.7 31-35 L [facility] CenterRed Cell Distribution Lcxbp4947-31-67 14:47:00* Test Item Value Reference Range Interpretation Comments Red Cell Distribution Width (test code = 14596-9) 14.6 11.7 -14.4 H [facility] CenterPlatelet Mewnk0970-21-06 14:47:00* Test Item Value Reference Range Interpretation Comments Platelet Count (test code = 777-3) 185 140-360 [facility] CenterNeutrophils (%) (Auto)2018-05-20 14:47:00 * Test Item Value Reference Range Interpretation Comments Neutrophils (%) (Auto) (test code = 91677-7) 75.0 38.7-80.0 [facility] CenterLymphocytes (%) (Auto)2018-05-20 14:47:00 * Test Item Value Reference Range Interpretation Comments Lymphocytes (%) (Auto) (test code = 736-9) 15.1 18.0-39.1 L [facility] CenterMonocytes (%) (Auto)2018-05-20 14:47:00* Test Item Value Reference Range Interpretation Comments Monocytes (%) (Auto) (test code = 5905-5) 8.8 4.4-11.3 [facility] CenterEosinophils (%) (Auto)2018-05-20 14:47:00 * Test Item Value Reference Range Interpretation Comments Eosinophils (%) (Auto) (test code = 713-8) 0.7 0.0-6.0 [facility] CenterBasophils (%) (Auto)2018-05-20 14:47:00* Test Item Value Reference Range Interpretation Comments Basophils (%) (Auto) (test code = 706-2) 0.2 0.0-1.0 [facility] CenterIM GRANULOCYTES %2018-05-20 14:47:00* Test Item Value Reference Range Interpretation Comments IM GRANULOCYTES % (test code = IM GRANULOCYTES %) 0.2 0.0- 1.0 [facility] CenterNeutrophils # (Auto)2018-05-20 14:47:00* Test Item Value Reference Range Interpretation Comments Neutrophils # (Auto) (test code = 751-8) 4.1 2.1-6.9 [facility] CenterLymphocytes # (Auto)2018-05-20 14:47:00* Test Item Value Reference Range Interpretation Comments Lymphocytes # (Auto) (test code = 97513-6) 0.8 1.0-3.2 L [facility] CenterMonocytes # (Auto)2018-05-20 14:47:00* Test Item Value Reference Range Interpretation Comments Monocytes # (Auto) (test code = 742-7) 0.5 0.2-0.8 [facility] CenterEosinophils # (Auto)2018-05-20 14:47:00* Test Item Value Reference Range Interpretation Comments Eosinophils # (Auto) (test code = 711-2) 0.0 0.0-0.4 [facility] CenterBasophils # (Auto)2018-05-20 14:47:00* Test Item Value Reference Range Interpretation Comments Basophils # (Auto) (test code = 704-7) 0.0 0.0-0.1 [facility] CenterAbsolute Immature Granulocyte (auto 2018-05-20 14:47:00* Test Item Value Reference Range Interpretation Comments Absolute Immature Granulocyte (auto (toby t code = Absolute Immature Granulocyte (auto) 0.01 0-0.1 [facility] CenterBASIC METABOLIC [id number] 12:14:00 * Test Item Value Reference Range [...] GFR IS NOT APPLICABLE FOR DIALYSIS PATIENTS. PT/KVCZ4382-02-61 12:06:00* Test Item Value Reference Range Interpretation [...] mechanical heart valves.CBC W/PLT COUNT & AUTO YVYZLPQYXDOR4732-13-90 11:41:00* Test Item Value Reference Range Interpretation [...] 2801) 0 % 0-1 Hepatitis A IgM Damtfibc0794-47-12 11:09:00* Test Item Value Reference Range Interpretation Comments Hepatitis A IgM Antibody (test code = 83981-9) Negative [facility] B Surface Rgtdaql6365-85-88 11:09:00* Test Item Value Reference Range Interpretation Comments Hepatitis B Surface Antigen (test code = 5196-1) Negative [facility] B Core IgM Bsxhkody9813-31-88 11:09:00* Test Item Value Reference Range Interpretation Comments Hepatitis B Core IgM Antibody (test code = 53480-3) Negative [facility] C Fbldnjdq6266-96-25 11:09:00* Test Item Value Reference Range Interpretation Comments Hepatitis C Antibody (test code = 68061-1) 0.1 Reference Range: 0.0 - 0.9 s/co ratioNegative: < 0.8Indeterminate: 0.8 - 0.9Positive: > 0.9The CDC recommends that a positive HCV antibody resultbe followed up with a HCV Nucleic Acid Amplificationtest (501896).[facility] [address] [address]Ley: Ronald Arcos MDFor inquiries, the physician may contact Branch: [phone] Lab: [phone] [facility] Iuvyzaw6122-37-40 11:33:00* Test Item Value Reference Range Interpretation Comments Bedside Glucose (test code = 83134-5) 257 70-120 H Meter ID: [id number] [facility] Glucose 2018-02-24 11:33:00* Test Item Value Reference Range Interpretation Comments Bedside Glucose (test code = 26615-9) 257 70-120 H Meter ID: [id number] Medical CenterFr Thyroxine Index 2018-02-23 06:30:00* Test Item Value Reference Range Interpretation Comments Free Thyroxine Index (test code = 80258-1) 0.9587 1.4-3.8 L [facility] CenterThyroxine (T4)2018-02-23 06:30:00* Test Item Value Reference Range Interpretation Comments Thyroxine (T4) (test code = 3026-2) 3.18 4.5-10.9 L Our current method for Total T4 is not recommended for use as the only marker fo r evaluating patients for thyroid disorders.[facility] CenterTriiodothyronine (T3) Bciaoa1843-83-21 06:30:00* Test Item Value Reference Range Interpretation Comments Triiodothyronine (T3) Uptake (test code = 3050-2) 30.15 22.5 -37.0 [facility] CenterThyroid Stimulating Hormone (TSH) 2018-02-23 06:30:00* Test Item Value Reference Range Interpretation Comments Thyroid Stimulating Hormone (TSH) (test code = 50041-5) 93.480 0.350-4.940 H [facility] CenterFr Thyroxine Ohprj6837-30-81 06:30:00* Test Item Value Reference Range Interpretation Comments Free Thyroxine Index (test code = 33557-0) 0.9587 1.4-3.8 L [facility] CenterThyroxine (T4)2018-02-23 06:30:00* Test Item Value Reference Range Interpretation Comments Thyroxine (T4) (test code = 3026-2) 3.18 4.5-10.9 L Our current method for Total T4 is not recommended for use as the only marker fo r evaluating patients for thyroid disorders.[facility] CenterTriiodothyronine (T3) Jglhyg3148-45-23 06:30:00* Test Item Value Reference Range Interpretation Comments Triiodothyronine (T3) Uptake (test code = 3050-2) 30.15 22.5 -37.0 [facility] CenterThyroid Stimulating Hormone (TSH) 2018-02-23 06:30:00* Test Item Value Reference Range Interpretation Comments Thyroid Stimulating Hormone (TSH) (test code = 96557-9) 93.480 0.350-4.940 H [facility] CenterFree Thyroxine Flgst3392-19-86 06:30:00* Test Item Value Reference Range Interpretation Comments Free Thyroxine Index (test code = 27598-3) 0.9587 1.4-3.8 L [facility] CenterThyroxine (T4)2018-02-23 06:30:00* Test Item Value Reference Range Interpretation Comments Thyroxine (T4) (test code = 3026-2) 3.18 4.5-10.9 L Our current method for Total T4 is not recommended for use as the only marker fo r evaluating patients for thyroid disorders.[facility] CenterTriiodothyronine (T3) Afqtxj3086-68-39 06:30:00* Test Item Value Reference Range Interpretation Comments Triiodothyronine (T3) Uptake (test code = 3050-2) 30.15 22.5 -37.0 [facility] Stret8954-40-54 06:04:00* Test Item Value Reference Range Interpretation Comments Sodium Level (test code = 2951-2) 139 136-145 [facility] CenterPotassium Pxmnk0813-39-45 06:04:00* Test Item Value Reference Range Interpretation Comments Potassium Level (test code = 2823-3) 5.0 3.5-5.1 [facility] CenterChloride Utdqy1805-82-12 06:04:00* Test Item Value Reference Range Interpretation Comments Chloride Level (test code = 2075-0) 98 98-107 [facility] CenterCarbon Dioxide Fcrku1470-19-21 06:04:00* Test Item Value Reference Range Interpretation Comments Carbon Dioxide Level (test code = 2028-9) 25 22-29 [facility] CenterAnion Csb3434-02-29 06:04:00* Test Item Value Reference Range Interpretation Comments Anion Gap (test code = 38862-4) 21.0 8-16 H [facility] CenterBlood Urea Egqskjda5821-46-38 06:04:00* Test Item Value Reference Range Interpretation Comments Blood Urea Nitrogen (test code = 3094-0) 85 7-26 H [facility] CenterCreatinine2018-08-11 06:04:00* Test Item Value Reference Range Interpretation Comments Creatinine (test code = 2160-0) 10.38 0.57-1.11 H [facility] CenterBUN/Creatinine Iybgn8032-83-95 06:04:00* Test Item Value Reference Range Interpretation Comments BUN/Creatinine Ratio (test code = 3097-3) 8 6-25 [facility] CenterEstimat Glomerular Filtration Rate 2018-02-23 06:04:00* Test Item Value Reference Range Interpretation Comments Estimat Glomerular Filtration Rate (test code = 50155-1) 4 >60 L Ranges were taken from the National Kidney Disease Education Program and the [facility] Kid[facility] Foundation literature.Reference ranges:60 or greater: Clcszr36-91 ( for 3 consecutive months): Chronic kidney disease 15 or less: Kidney failureOakBend Medical CenterGlucose Ojdmu4480-01-72 06:04:00* Test Item Value Reference Range Interpretation Comments Glucose Level (test code = EWF6974) 191 74-118 H [facility] CenterCalcium Xobbw9881-20-79 06:04:00* Test Item Value Reference Range Interpretation Comments Calcium Level (test code = 83687-9) 8.4 8.4-10.2 [facility] CenterTotal Zpddvilfy2266-53-27 06:04:00* Test Item Value Reference Range Interpretation Comments Total Bilirubin (test code = 1975-2) 0.4 0.2-1.2 [facility] CenterAspartate Amino Transf (AST/SGOT) 2018-02-23 06:04:00* Test Item Value Reference Range Interpretation Comments Aspartate Amino Transf (AST/SGOT) (test code = Aspartate Amino Transf (AST/SGOT)) 14 5-34 [facility] CenterAlanine Aminotransferase (ALT/SGPT) 2018-02-23 06:04:00* Test Item Value Reference Range Interpretation Comments Alanine Aminotransferase (ALT/SGPT) (test code = 1742-6) 9 0-55 [facility] CenterTotal Ufyyzjm1762-37-62 06:04:00* Test Item Value Reference Range Interpretation Comments Total Protein (test code = 2885-2) 7.1 6.5-8.1 [facility] CenterAlbumin2018-08-11 06:04:00* Test Item Value Reference Range Interpretation Comments Albumin (test code = 1751-7) 3.2 3.5-5.0 L [facility] CenterGlobulin2018-08-11 06:04:00* Test Item Value Reference Range Interpretation Comments Globulin (test code = 60221-7) 3.9 2.3-3.5 H [facility] CenterAlbumin/Globulin Dhwgy2968-47-60 06:04:00 * Test Item Value Reference Range Interpretation Comments Albumin/Globulin Ratio (test code = 1759-0) 0.8 0.8-2.0 [facility] CenterAlkaline Brdtzjevpgs8837-33-48 06:04:00* Test Item Value Reference Range Interpretation Comments Alkaline Phosphatase (test code = 6768-6) 70 40-150 [facility] CenterTriglycerides Omlji2503-90-92 06:04:00* Test Item Value Reference Range Interpretation Comments Triglycerides Level (test code = 2571-8) 186 0-149 H [facility] CenterCholesterol Vxjvm7415-37-11 06:04:00* Test Item Value Reference Range Interpretation Comments Cholesterol Level (test code = 2093-3) 246 0-199 H Less than 200 mg/dL Low Tbft232 - 239 mg/dL Borderline Wpby286 m g/dl and greater High Risk [facility] CenterLDL Txlrhipzdvj1039-87-23 06:04:00* Test Item Value Reference Range Interpretation Comments LDL Cholesterol (test code = 2089-1) 164 60-130 H [facility] CenterHDL Fkurkjxcmfe2253-11-34 06:04:00* Test Item Value Reference Range Interpretation Comments HDL Cholesterol (test code = 2085-9) 45 40-60 [facility] CenterCholesterol/HDL Kvrsi3895-98-62 06:04:00 * Test Item Value Reference Range Interpretation Comments Cholesterol/HDL Ratio (test code = 9830-1) 5.5 3.0-3.6 H [facility] CenterTriglycerides Fryby7919-67-18 06:04:00* Test Item Value Reference Range Interpretation Comments Triglycerides Level (test code = 2571-8) 186 0-149 H [facility] CenterCholesterol Dentk0815-18-21 06:04:00* Test Item Value Reference Range Interpretation Comments Cholesterol Level (test code = 2093-3) 246 0-199 H Less than 200 mg/dL Low Awxj961 - 239 mg/dL Borderline Gwai319 m g/dl and greater High Risk [facility] CenterLDL Sclemakoxhp8497-37-71 06:04:00* Test Item Value Reference Range Interpretation Comments LDL Cholesterol (test code = 2089-1) 164 60-130 H [facility] CenterHDL Ovtrooiknmc8983-49-19 06:04:00* Test Item Value Reference Range Interpretation Comments HDL Cholesterol (test code = 2085-9) 45 40-60 [facility] CenterCholesterol/HDL Iuckl2828-16-76 06:04:00 * Test Item Value Reference Range Interpretation Comments Cholesterol/HDL Ratio (test code = 9830-1) 5.5 3.0-3.6 H [facility] CenterWhite Blood Saixy8125-89-12 05:45:00* Test Item Value Reference Range Interpretation Comments White Blood Count (test code = 6690-2) 4.46 4.8-10.8 L [facility] CenterRed Blood Hhprm9477-16-88 05:45:00* Test Item Value Reference Range Interpretation Comments Red Blood Count (test code = 789-8) 3.77 3.6-5.1 [facility] CenterHemoglobin2018-08-11 05:45:00* Test Item Value Reference Range Interpretation Comments Hemoglobin (test code = 43016-9) 11.7 12.0-16.0 L [facility] CenterHematocrit2018-08-11 05:45:00* Test Item Value Reference Range Interpretation Comments Hematocrit (test code = 4544-3) 36.0 34.2-44.1 [facility] CenterMean Corpuscular Wfugiu3636-34-33 05:45:00* Test Item Value Reference Range Interpretation Comments Mean Corpuscular Volume (test code = 787-2) 95.5 81-99 [facility] CenterMean Corpuscular Ebwnoxdbbo3616-22-21 05:45:00* Test Item Value Reference Range Interpretation Comments Mean Corpuscular Hemoglobin (test code = 785-6) 31.0 28-32 [facility] CenterMean Corpuscular Hemoglobin Concent 2018-02-23 05:45:00* Test Item Value Reference Range Interpretation Comments Mean Corpuscular Hemoglobin Concent (test code = 786-4) 32.5 31-35 [facility] CenterRed Cell Distribution Rkvze9551-86-07 05:45:00* Test Item Value Reference Range Interpretation Comments Red Cell Distribution Width (test code = 81282-8) 14.6 11.7 -14.4 H [facility] CenterPlatelet Ygwoj7629-87-52 05:45:00* Test Item Value Reference Range Interpretation Comments Platelet Count (test code = 777-3) 139 140-360 L [facility] CenterNeutrophils (%) (Auto)2018-02-23 05:45:00 * Test Item Value Reference Range Interpretation Comments Neutrophils (%) (Auto) (test code = 43324-0) 62.8 38.7-80.0 [facility] CenterLymphocytes (%) (Auto)2018-02-23 05:45:00 * Test Item Value Reference Range Interpretation Comments Lymphocytes (%) (Auto) (test code = 736-9) 25.1 18.0-39.1 [facility] CenterMonocytes (%) (Auto)2018-02-23 05:45:00* Test Item Value Reference Range Interpretation Comments Monocytes (%) (Auto) (test code = 5905-5) 10.1 4.4-11.3 [facility] CenterEosinophils (%) (Auto)2018-02-23 05:45:00 * Test Item Value Reference Range Interpretation Comments Eosinophils (%) (Auto) (test code = 713-8) 1.6 0.0-6.0 [facility] CenterBasophils (%) (Auto)2018-02-23 05:45:00* Test Item Value Reference Range Interpretation Comments Basophils (%) (Auto) (test code = 706-2) 0.2 0.0-1.0 [facility] CenterIM GRANULOCYTES %2018-02-23 05:45:00* Test Item Value Reference Range Interpretation Comments IM GRANULOCYTES % (test code = IM GRANULOCYTES %) 0.2 0.0- 1.0 [facility] CenterNeutrophils # (Auto)2018-02-23 05:45:00* Test Item Value Reference Range Interpretation Comments Neutrophils # (Auto) (test code = 751-8) 2.8 2.1-6.9 [facility] CenterLymphocytes # (Auto)2018-02-23 05:45:00* Test Item Value Reference Range Interpretation Comments Lymphocytes # (Auto) (test code = 49321-5) 1.1 1.0-3.2 [facility] CenterMonocytes # (Auto)2018-02-23 05:45:00* Test Item Value Reference Range Interpretation Comments Monocytes # (Auto) (test code = 742-7) 0.5 0.2-0.8 [facility] CenterEosinophils # (Auto)2018-02-23 05:45:00* Test Item Value Reference Range Interpretation Comments Eosinophils # (Auto) (test code = 711-2) 0.1 0.0-0.4 [facility] CenterBasophils # (Auto)2018-02-23 05:45:00* Test Item Value Reference Range Interpretation Comments Basophils # (Auto) (test code = 704-7) 0.0 0.0-0.1 [facility] CenterAbsolute Immature Granulocyte (auto 2018-02-23 05:45:00* Test Item Value Reference Range Interpretation Comments Absolute Immature Granulocyte (auto (toby t code = Absolute Immature Granulocyte (auto) 0.01 0-0.1 [facility] CenterCreatine Kinase MN9001-30-36 19:25:00* Test Item Value Reference Range Interpretation Comments Creatine Kinase MB (test code = 20029-9) 4.10 0-5.0 [facility] CenterTroponin [id number] 19:25:00* Test Item Value Reference Range Interpretation Comments Troponin I (test code = BJO0472) 0.077 0-0.300 [facility] CenterCreatine Kinase WZ4635-16-34 19:25:00* Test Item Value Reference Range Interpretation Comments Creatine Kinase MB (test code = 15269-5) 4.10 0-5.0 [facility] CenterTroponin R0367-88-17 19:25:00* Test Item Value Reference Range Interpretation Comments Troponin I (test code = IFE0454) 0.077 0-0.300 [facility] CenterCreatine Ovintf5905-52-46 19:15:00* Test Item Value Reference Range Interpretation Comments Creatine Kinase (test code = 2157-6) 158 29-168 [facility] CenterCreatine Uwhdec5058-03-91 19:15:00* Test Item Value Reference Range Interpretation Comments Creatine Kinase (test code = 2157-6) 158 29-168 [facility] CenterB-Type Natriuretic Lyabtqc6751-72-33 03:10:00* Test Item Value Reference Range Interpretation Comments B-Type Natriuretic Peptide (test code = 02352-3) 244.1 0-100 H [facility] CenterB-Type Natriuretic Xiljoix6349-02-35 03:10:00* Test Item Value Reference Range Interpretation Comments B-Type Natriuretic Peptide (test code = 55462-9) 244.1 0-100 H [facility] CenterCT BRAIN SL5876-23-27 03:03:00 [place] [address] Patient Name: ANGELA JEFFERS MR #: [id number] : 1945 Age/Sex: 73/F Req #: [id number] Adm Physician: CHERELLE VELASQUEZ MD Ordered by: WILLIE SCHWARTZ MD Report #: [id number] Location: [facility] Room/Bed: [place] [address] Procedure: [id number] C T/CT BRAIN WO Exam Date: 02/22/18 [...] on 02/22/18 0304 C OPY TO: WILLIE SCWHARTZ MD Prothrombin Exwy6364-69-02 02:59:00* Test Item Value Reference Range Interpretation Comments Prothrombin Time (test code = 5902-2) 13.3 11.9-14.5 [facility] CenterProthromb Time International Ratio 2018-02-22 02:59:00* Test Item Value Reference Range Interpretation Comments Prothromb Time International Ratio (test code = 6301-6) 1.09 Oral Anticoagulant Therapy INR Values:1. Low Intensity Therapy 1.5 - 2.02 . Moderate Intensity Therapy 2.0 - 3.03. High Intensity Therapy(1) 2.5 - 3. 54. High Intensity Therapy(2) 3.0 - 4.05. Panic Value INR > 5.0 [facility] CenterActivated Partial Thromboplast Time 2018-02-22 02:59:00* Test Item Value Reference Range Interpretation Comments Activated Partial Thromboplast Time (test code = 34519-0) 32.6 23.8-35.5 [facility] CenterMagnesium Nmjbn5892-59-55 02:59:00* Test Item Value Reference Range Interpretation Comments Magnesium Level (test code = 23663-3) 2.1 1.3-2.1 [facility] CenterProthrombin Hbbf0290-20-90 02:59:00* Test Item Value Reference Range Interpretation Comments Prothrombin Time (test code = 5902-2) 13.3 11.9-14.5 [facility] CenterProthromb Time International Ratio 2018-02-22 02:59:00* Test Item Value Reference Range Interpretation Comments Prothromb Time International Ratio (test code = 6301-6) 1.09 Oral Anticoagulant Therapy INR Values:1. Low Intensity Therapy 1.5 - 2.02 . Moderate Intensity Therapy 2.0 - 3.03. High Intensity Therapy(1) 2.5 - 3. 54. High Intensity Therapy(2) 3.0 - 4.05. Panic Value INR > 5.0 [facility] CenterActivated Partial Thromboplast Time 2018-02-22 02:59:00* Test Item Value Reference Range Interpretation Comments Activated Partial Thromboplast Time (test code = 42255-3) 32.6 23.8-35.5 [facility] CenterUrine Xnzvr5040-00-23 02:51:00* Test Item Value Reference Range Interpretation Comments Urine Color (test code = 5778-6) YELLOW YELLOW [facility] CenterUrine Jxjeukw1330-98-02 02:51:00* Test Item Value Reference Range Interpretation Comments Urine Clarity (test code = 51023-2) CLEAR CLEAR [facility] CenterUrine Specific Iyludkl6256-26-40 02:51:00 * Test Item Value Reference Range Interpretation Comments Urine Specific [place] (test code = 5811-5) 1.010 1.010-1.02 5 [facility] CenterUrine kB8025-38-93 02:51:00* Test Item Value Reference Range Interpretation Comments Urine pH (test code = 09533-4) 7 5-7 [facility] CenterUrine Leukocyte Qccathmp4103-86-72 02:51:00* Test Item Value Reference Range Interpretation Comments Urine Leukocyte Esterase (test code = 5799-2) 1+ NEGATIVE H [facility] CenterUrine Jeodrmc4292-13-44 02:51:00* Test Item Value Reference Range Interpretation Comments Urine Nitrite (test code = 48555-2) NEGATIVE NEGATIVE [facility] CenterUrine Fnazlyo7630-23-00 02:51:00* Test Item Value Reference Range Interpretation Comments Urine Protein (test code = 5804-0) 3+ NEGATIVE H [facility] CenterUrine Glucose (UA)2018-02-22 02:51:00* Test Item Value Reference Range Interpretation Comments Urine Glucose (UA) (test code = 2349-9) 2+ NEGATIVE H [facility] CenterUrine Yzyvidu0564-80-49 02:51:00* Test Item Value Reference Range Interpretation Comments Urine Ketones (test code = 86406-0) NEGATIVE NEGATIVE [facility] CenterUrine Odflwitdfort4940-20-97 02:51:00* Test Item Value Reference Range Interpretation Comments Urine Urobilinogen (test code = 54101-2) 0.2 0.2-1 [facility] CenterUrine Insjzzdwj6111-95-51 02:51:00* Test Item Value Reference Range Interpretation Comments Urine Bilirubin (test code = 1978-6) NEGATIVE NEGATIVE [facility] Qdbqu8325-82-92 02:51:00* Test Item Value Reference Range Interpretation Comments Urine Blood (test code = 83196-5) 3+ NEGATIVE H [facility] CenterUrine RSB2646-98-09 02:51:00* Test Item Value Reference Range Interpretation Comments Urine WBC (test code = 5821-4) 11-20 0-5 H [facility] HOJ9502-86-29 02:51:00* Test Item Value Reference Range Interpretation Comments Urine RBC (test code = 81451-7) 6-10 0-5 H [facility] Dnhnhhhv6246-72-36 02:51:00* Test Item Value Reference Range Interpretation Comments Urine Bacteria (test code = 39933-1) NONE NONE [facility] Epithelial Apxvx5966-44-45 02:51:00 * Test Item Value Reference Range Interpretation Comments Urine Epithelial Cells (test code = 34919-3) MANY NONE [facility] CenterUrine Hcsdv1084-63-45 02:51:00* Test Item Value Reference Range Interpretation Comments Urine Color (test code = 5778-6) YELLOW YELLOW [facility] CenterUrine Mxtikjb9459-98-44 02:51:00* Test Item Value Reference Range Interpretation Comments Urine Clarity (test code = 48960-1) CLEAR CLEAR [facility] CenterUrine Specific Lugdnwi7237-69-17 02:51:00 * Test Item Value Reference Range Interpretation Comments Urine Specific [place] (test code = 5811-5) 1.010 1.010-1.02 5 [facility] CenterUrine lT1848-11-35 02:51:00* Test Item Value Reference Range Interpretation Comments Urine pH (test code = 74472-8) 7 5-7 [facility] CenterU[facility] Leukocyte Wcbpbbfp0698-05-77 02:51:00* Test Item Value Reference Range Interpretation Comments Urine Leukocyte Esterase (test code = 5799-2) 1+ NEGATIVE H [facility] Fzxgibx1761-43-33 02:51:00* Test Item Value Reference Range Interpretation Comments Urine Nitrite (test code = 40726-1) NEGATIVE NEGATIVE [facility] CenterU[facility] Scwjgft8921-23-61 02:51:00* Test Item Value Reference Range Interpretation Comments Urine Protein (test code = 5804-0) 3+ NEGATIVE H [facility] Glucose (UA)2018-02-22 02:51:00* Test Item Value Reference Range Interpretation Comments Urine Glucose (UA) (test code = 2349-9) 2+ NEGATIVE H [facility] Rgakyca3196-71-01 02:51:00* Test Item Value Reference Range Interpretation Comments Urine Ketones (test code = 34956-0) NEGATIVE NEGATIVE [facility] Ydovvbfyvokf0911-21-48 02:51:00* Test Item Value Reference Range Interpretation Comments Urine Urobilinogen (test code = 17989-7) 0.2 0.2-1 [facility] Aywcsjevz9962-00-11 02:51:00* Test Item Value Reference Range Interpretation Comments Urine Bilirubin (test code = 1978-6) NEGATIVE NEGATIVE [facility] Oxoma9018-61-03 02:51:00* Test Item Value Reference Range Interpretation Comments Urine Blood (test code = 44622-2) 3+ NEGATIVE H [facility] HMC3252-30-52 02:51:00* Test Item Value Reference Range Interpretation Comments Urine WBC (test code = 5821-4) 11-20 0-5 H [facility] YDO6876-29-22 02:51:00* Test Item Value Reference Range Interpretation Comments Urine RBC (test code = 28658-9) 6-10 0-5 H [facility] Mmxxjzcd3550-76-46 02:51:00* Test Item Value Reference Range Interpretation Comments Urine Bacteria (test code = 87337-1) NONE NONE [facility] Epithelial Bceof9749-91-45 02:51:00 * Test Item Value Reference Range Interpretation Comments Urine Epithelial Cells (test code = 49237-2) MANY NONE [facility] CenterU[facility] Secdn5079-01-31 02:51:00* Test Item Value Reference Range Interpretation Comments Urine Color (test code = 5778-6) YELLOW YELLOW [facility] CenterU[facility] Tzlkwun4962-03-13 02:51:00* Test Item Value Reference Range Interpretation Comments Urine Clarity (test code = 69687-8) CLEAR CLEAR [facility] CenterUrine Specific Yuxeguc4243-90-72 02:51:00 * Test Item Value Reference Range Interpretation Comments Urine Specific [place] (test code = 5811-5) 1.010 1.010-1.02 5 [facility] CenterU[facility] cW5968-18-67 02:51:00* Test Item Value Reference Range Interpretation Comments Urine pH (test code = 08541-0) 7 5-7 [facility] Leukocyte Wjijhtcc3980-29-46 02:51:00* Test Item Value Reference Range Interpretation Comments Urine Leukocyte Esterase (test code = 5799-2) 1+ NEGATIVE H [facility] Wtdybkm3318-81-13 02:51:00* Test Item Value Reference Range Interpretation Comments Urine Nitrite (test code = 24531-0) NEGATIVE NEGATIVE [facility] CenterU[facility] Bbrerjz9800-89-71 02:51:00* Test Item Value Reference Range Interpretation Comments Urine Protein (test code = 5804-0) 3+ NEGATIVE H [facility] CenterU[facility] Glucose (UA)2018-02-22 02:51:00* Test Item Value Reference Range Interpretation Comments Urine Glucose (UA) (test code = 2349-9) 2+ NEGATIVE H [facility] Ogvseng7808-33-03 02:51:00* Test Item Value Reference Range Interpretation Comments Urine Ketones (test code = 18491-1) NEGATIVE NEGATIVE [facility] Mmhbwhflyybj2379-12-36 02:51:00* Test Item Value Reference Range Interpretation Comments Urine Urobilinogen (test code = 49869-6) 0.2 0.2-1 [facility] CenterU[facility] Qliinedvk3296-69-24 02:51:00* Test Item Value Reference Range Interpretation Comments Urine Bilirubin (test code = 1978-6) NEGATIVE NEGATIVE [facility] CenterU[facility] Fqebj5596-54-57 02:51:00* Test Item Value Reference Range Interpretation Comments Urine Blood (test code = 31539-4) 3+ NEGATIVE H [facility] CenterU[facility] GPR7073-40-82 02:51:00* Test Item Value Reference Range Interpretation Comments Urine WBC (test code = 5821-4) 11-20 0-5 H [facility] CenterU[facility] LWJ6784-30-48 02:51:00* Test Item Value Reference Range Interpretation Comments Urine RBC (test code = 95508-3) 6-10 0-5 H [facility] CenterU[facility] Vaasbavu3498-37-05 02:51:00* Test Item Value Reference Range Interpretation Comments Urine Bacteria (test code = 63075-5) NONE NONE [facility] CenterU[facility] Epithelial Vbupi2385-80-85 02:51:00 * Test Item Value Reference Range Interpretation Comments Urine Epithelial Cells (test code = 64786-9) MANY NONE [facility] CenterCHEST SINGLE (PORTABLE)2018-02-22 02:47:00 [place] [address] Patient Name: ANGELA JEFFERS MR #: [id number] : 1945 Age/Sex: 73/F Req #: [id number] Adm Physician: Ordered by: WILLIE SCHWARTZ MD Report #: [id number] Location: ER Room/Bed: Procedure: DX/CHEST SINGLE (PORTABLE) E xam Date: 02/22/18 [...] and vascular congestion. Signed by: Dr. Zaida Alvarado M.D. on 02/22/2018 2:48 AM Dictated By: ZAIDA ALVARADO MD 7 Transcribed By: ARIEL on 02/22/18247 COPY TO: WILLIE SCHWARTZ MD
--- NOTE | 2020-04-24 15:39 | NUR ---
Received report from BARTOLOME Cardenas in ER at 1500. Patient arrived on the unit at 1523. Patient IV in place. Patient oriented to room, procedures, and plan of care. Patient is AOx3 and complains of severe left hip pain. Patient is verbally abuse to staff and was reminded that staff are only here to help her. Patient has call light in reach, bed in lowest position, and all of her belongings within reach. Will call Dr. Sutton to inform him that patient is here.
[2020-04-24 15:42] VITALS: BP 169/59
[2020-04-24] MEDS: INSULIN LISPRO 100 UNIT/1 ML 3ML VIAL SQ SCH ×2 (16:30→21:10)
[2020-04-24] MEDS ORDERED: SODIUM CHLORIDE 0.9% 1000ML 2,000 ML ONE (16:39)
[2020-04-24] MEDS ORDERED: LIDOCAINE HCL 2% 30 ML TUBE TOP ONE (17:30)
--- NOTE | 2020-04-24 18:58 | NUR ---
WALKING ROUNDS PERFORMED, RECEIVED PT LAYING SEMI FOWLERS IN BED, RECEIVING DIALYSIS. DIALYSIS NURSE AT BEDSIDE STATES WAS ONLY ABLE TO PERFORM 1.5 HOURS OF DIALYSIS BECAUSE PT REFUSING TO CONTINUE DIALYSIS, DIALYSIS NURSE STATES HE SPOKE WITH MD LEON AND IBETH TO STOP DIALYSIS EARLY. PT IS AAOX3, RR EVEN AND NON-LABORED, ON ROOM AIR. PT STATES PAIN TO HIP IS 15/10. (L) UPPER ARM FISTULA CDI. LEFT PT LAYING SEMI FOWLERS IN BED, BED IN LOW LOCKED POSITION, SIDE RAILS UPX2, CALL LIGHT AND PHONE WITHIN REACH. DIALYSIS NURSE AT BEDSIDE.
--- NOTE | 2020-04-24 19:58 | NUR ---
SPOKE WITH Veronica PERALTA FOR MD VELASQUEZ, CONCERNING PT STATING SHE IS LEAVING. TRANSFERRED CALL TO PATIENT ROOM TO HAVE PROVIDER PATIENT CONVERSATION. PT STILL STATING SHE IS GOING HOME AGAINST MEDICAL ADVICE AFTER TALKING TO PROVIDER.
[2020-04-24 20:00] VITALS: BP 162/66
--- NOTE | 2020-04-24 20:10 | NUR ---
SPOKE WITH [employer] ADMINISTRATOR CONCERNING SITUATION OF PT REQUESTING TO LEAVE AMA BUT HAS NO TRANSPORTATION HOME. PT IS TOTAL ASSIST TO WHEELCHAIR AND [employer] L[employer] AT HOME. WAS INFORMED THAT THE HS WILL DISCUSS SITUATION WITH MANAGEMENT. WAITING FOR CALLBACK. SPOKE WITH PT CONCERNING REQUEST TO GO HOME AMA. PT STATES HER (L) HIP IS HURTING AND THAT IS WHY SHE CAME IN. ASKED PT WHAT SHE WOULD DO WHEN SHE GOT HOME PT STATES SHE WOULD GO HOME TO HER BED, TURN ON HER WESTERN SHOWS AND GO TO SLEEP. PT ALSO STATES PAIN IS A 15/10. PT REPORTS EVEN WITH ADDITIONAL PAIN MEDICATION WOULD STILL GO HOME.
--- NOTE | 2020-04-24 20:23 | NUR ---
SPOKE WITH TRANSIT SURVEY WORKER CONCERNING PT REQUEST TO LEAVE AMA. WAS INFORMED TO TRY TO GET IN CONTACT WITH FAMILY TO MAKE SURE ASSISTANCE WILL BE AVAILABLE AT THE PATIENTS HOME FOR A SAFE ENVIRONMENT AND THAT THE PT WILL NEED TO CONTACT A PRIVATE AMBULANCE SERVICE OR HAVE FAMILY COME TO PICK THE PATIENT UP. INFORMED PATIENT OF WHAT MANAGEMENT STATED. PT REQUESTS THIS NURSE CALL HER FELIBERTO AT HOME.
--- NOTE | 2020-04-24 20:33 | Consultation ---
DATE OF CONSULTATION: 04/24/2020 REQUESTING PHYSICIAN: Ernst Mckeon MD REASON FOR CONSULTATION: End-stage renal disease. HISTORY OF PRESENT ILLNESS: Thank you for allowing us to participate in Ms. Horn's care. This is a 75-year-old female with end-stage renal disease, prior history of diabetes, hypertension, hyperparathyroidism, and bilateral partial foot amputations. There has been an issue with noncompliance, partly may be herself, partly may be the situation because she is essentially bedridden, recovering from a femoral fracture, which has been causing a lot of pain with multiple episodes of missed dialysis. She seems to be aware that this can be of consequence in terms of mortality. Currently, denying dyspnea. Potassium is not elevated. Hemoglobin is 10.3. PAST MEDICAL HISTORY: 1. End-stage renal disease. 2. Left upper extremity AV fistula. 3. Peripheral vascular disease. 4. Status post partial bilateral amputations. 5. Chronic heart failure, I believe maybe diastolic. 6. History of CHF. HOME MEDICATIONS: Please see list. SOCIAL HISTORY: She lives with now. Does not abuse alcohol or smoke. ALLERGIES: LIPITOR AND PNEUMOVAX PER RECORDS. FAMILY HISTORY: Positive for coronary artery disease. REVIEW OF SYSTEMS: CONSTITUTIONAL: Feels weak. GI: No nausea or vomiting. : Does not make much urine. MUSCULOSKELETAL: Left leg pain in particular, has lost some of her feet on both sides. PHYSICAL EXAMINATION: GENERAL: Lying in bed, no distress. VITAL SIGNS: Temperature 98, pulse 79, blood pressure 159/80. CHEST: Clear minimally, diminished breath sounds at the bases. EXTREMITIES: Trace edema, bilateral amputations of feet in bandages. NEUROLOGIC: Alert. She appears appropriate. CARDIAC: Normal heart tones. I do not hear a rub. ABDOMEN: Benign. LABORATORY DATA: Hemoglobin is 10.3. K 4.4, BUN 56, creatinine 9.2, MCV is 94. ASSESSMENT: 1. End-stage renal disease, presumed diabetic hypertensive, end-organ damage. 2. Hypertension. 3. Volume reasonable, although I suspect she does have some mild overload. 4. Peripheral vascular disease. PLAN: Hemodialysis today. Please see orders for details. We will follow along and I will touch base again with manager social media at the dialysis unit, who had actually made quite a bit of effort to get a ride to the dialysis clinic and so forth. We will follow along. MD INES Felipe/JONATHAN /[phone]
--- NOTE | 2020-04-24 20:37 | NUR ---
CALL PLACED TO FELIBERTO AT [phone]. NO ANSWER RECEIVED. LEFT MESSAGE WAITING FOR CALLBACK. NO ADDITIONAL NUMBERS TO CALL IN THE SYSTEM AND PATIENT STATES HER SON EVELYN JUST MOVED BACK TO [place] BUT HE CHANGED HIS NUMBER, SO NUMBER AVAILABLE AT THIS TIME.
--- NOTE | 2020-04-24 20:45 | NUR ---
WHILE AT BEDSIDE. STOOL SMELL NOTED IN ROOM, PT STATES "I AM NOT DIRTY I HAVE NOT POOPED." PT REFUSING TO LET THIS NURSE CHECK DIAPER.
--- NOTE | 2020-04-24 20:48 | NUR ---
ATTEMPT NUMBER 2 TO CONTACT FAMILY MEMBER FELIBERTO. NO ANSWER, LEFT MESSAGE.
--- NOTE | 2020-04-24 20:56 | NUR ---
RECEIVED CALL FROM PT SISTER REQUESTING CONDITION OF PATIENT. SISTER STATES SHE IS THE MPOA AND WILL [facility]25. STATES SHE WOULD LIKE TO TALK TO THE PATIENT. TRANSFERRED SISTER TO PATIENTS ROOM. SISTER STATES HER NAME IS DAVE AND PHONE NUMBER IS [phone]. AFTER TALKING TO SISTER PT STATES THE SISTER IS CALLING THE FAMILY TO GET HER A RIDE HOME. AT 2100 SPOKE WITH DAVE AND DAVE STATES SHE WAS UNABLE TO GET IN TOUCH WITH ANY FAMILY TO COME AND GET PATIENT. SISTER STATES PT WILL HAVE TO STAY.
[2020-04-24] MEDS ORDERED: MELATONIN 3 MG TAB PO SCH (21:00)
[2020-04-24] MEDS: CALCIUM ACETATE 667 MG GELCAP PO SCH (21:10)
--- NOTE | 2020-04-24 21:20 | NUR ---
AT PT BEDSIDE, PT STATES IF I CAN SMELL HER DIAPER. REPORTS TO PATIENT THAT MULTIPLE REQUESTS HAVE BEEN MADE AND PT REFUSED TO HAVE DIAPER CHANGED. PT STATES I AM READY TO BE CHANGED. WITH TECH AT BESIDE PT REQUESTS HER DIAPER BE CUT OFF AND A NEW ONE APPLIED. PT REFUSES TO TURN BECAUSE HIP IS HURTING TOO MUCH TO HAVE NEW DIAPER APPLIED. WHEN ASKED HOW PT HAS DIAPER CHANGED AT HOME PT REPORTS THEY CUT IT OFF AND CLEAN HER WITH SOAP AND WATER. PT REFUSING TO TELL NURSE HOW THEY CLEAN THE BUTTOCKS AREA. PT NOW REFUSING TO HAVE DIAPER CHANGED BECAUSE OF HER HIP HURTING.
--- NOTE | 2020-04-24 21:24 | NUR ---
CALL PLACED TO MD VELASQUEZ CONCERNING TP WANTING TO [place] WITH NO AVAILABLE RIDE AND PAIN TO (L) HIP. WAITING FOR CALLBACK.
--- NOTE | 2020-04-24 21:30 | NUR ---
SPOKE WITH MD VELASQUEZ CONCERNING PT WANTING TO LEAVE. HE STILL STATES IT IS AGAINST HIS MEDICAL ADVICE BUT IF PT IS REFUSING TO HAVE DIAPER CHANGED DO TO PAIN, PRESCRIBED NEW ORDERS FOR PAIN MEDICATIONS.
[2020-04-24] MEDS ORDERED: HYDROCODONE/APAP 10MG-325MG TAB PO PRN (21:45)
[2020-04-24] MEDS ORDERED: MORPHINE SULFATE 2 MG/ML SYR 1ML IV PRN (21:45)
--- NOTE | 2020-04-24 21:55 | NUR ---
OFFERING PAIN MEDICATION TO PATIENT. PT STATES SHE WILL TAKE THE MEDICATION BUT SHE IS STILL NOT STAYING, INFORMED PATIENT STILL WAITING FOR FAMILY TO PROVIDE TRANSPORTATION. WILL CONTINUE TO PROVIDE CARE TILL RIDE PROVIDED AND PATIENT ABLE TO LEAVE.
--- NOTE | 2020-04-24 22:20 | NUR ---
CALL PLACED TO [facility] TO VERIFY MORPHINE AND NORCO FOR PATIENT. SPOKE WITH PHARMACIST, NOW WAITING FOR VERIFICATION.
--- NOTE | 2020-04-24 23:00 | NUR ---
SPOKE WITH HOT DIP PLATER CONCERNING IF PATIENT NEEDS TO SIGN AMA PAPERWORK, WAS INFORMED AMA PAPERWORK TO BE SIGNED WHEN PATIENT ACTUALLY LEAVES.
[2020-04-25] VITALS: BP 164/73
[2020-04-25 04:00] VITALS: BP 178/72
[2020-04-25 05:51] LABS: BASOPHILS % 0.3 % (0.0-1.0); EOSINOPHILS # (AUTO) 0.2 (0.0-0.4); EOSINOPHILS % 2.4 % (0.0-6.0); HEMATOCRIT 34.5 % (34.2-44.1); HEMOGLOBIN 10.3 g/dL (12.0-16.0); LYMPHOCYTES % 15.6 % (18.0-39.1); MEAN CORPUSCULAR HEMOGLOBIN 28.5 pg (28-32); MEAN CORPUSCULAR HGB CONC 29.9 g/dL (31-35); MEAN CORPUSCULAR VOLUME 95.3 fL (81-99); MONOCYTES # (AUTO) 0.6 (0.2-0.8); MONOCYTES % 9.1 % (4.4-11.3); NEUTROPHILS # (AUTO) 4.8 (2.1-6.9); NEUTROPHILS % 72.3 % (38.7-80.0); PLATELET COUNT 213 x10e3/uL (140-360); RED BLOOD COUNT 3.62 x10e6/uL (3.6-5.1); RED CELL DISTRIBUTION WIDTH 14.9 % (11.7-14.4)
[2020-04-25 06:19] LABS: ALBUMIN 2.6 g/dL (3.5-5.0); ALBUMIN/GLOBULIN RATIO 0.5 (0.8-2.0); ALKALINE PHOSPHATASE 70 IU/L (40-150); ANION GAP 18.3 mmol/L (8-16); BLOOD UREA NITROGEN 47 mg/dL (7-26); BUN/CREATININE RATIO 6 (6-25); CALCIUM 7.9 mg/dL (8.4-10.2); CARBON DIOXIDE 25 mmol/L (22-29); CHLORIDE 97 mmol/L (98-107); CREATININE, SERUM 7.91 mg/dL (0.57-1.11); EST GLOMERULAR FILTRATION RATE 6 ML/MIN (60-); GLUCOSE 134 mg/dL (74-118); POTASSIUM 4.3 mmol/L (3.5-5.1); SODIUM 136 mmol/L (136-145)
[2020-04-25 06:22] LABS: ALANINE AMINOTRANSFERASE < 6 IU/L (0-55)
[2020-04-25 07:16] VITALS: BP 140/68
[2020-04-25 07:46] VITALS: BP 140/68
[2020-04-25] MEDS ORDERED: CARVEDILOL 3.125 MG TAB PO SCH (09:00)
[2020-04-25] MEDS ORDERED: LEVOTHYROXINE SODIUM 50 MCG TAB PO SCH (09:00)
[2020-04-25] MEDS ORDERED: NIFEDIPINE CR 30 MG TAB PO SCH (09:00)
[2020-04-25] MEDS ORDERED: DOCUSATE SODIUM 100 MG CAP PO SCH (09:00)
[2020-04-25] MEDS ORDERED: CILOSTAZOL 100 MG TAB PO SCH (09:00)
[2020-04-25] MEDS ORDERED: FUROSEMIDE 40 MG TAB PO SCH (09:00)
[2020-04-25] MEDS ORDERED: HYDROCORTISONE 2.5% PR CRM 1 OZ TUBE TOP SCH (09:00)
[2020-04-25] MEDS ORDERED: CLOPIDOGREL BISULFATE 75 MG TAB PO SCH (09:00)
[2020-04-25] MEDS: INSULIN LISPRO 100 UNIT/1 ML 3ML VIAL SQ SCH ×2 (09:14→11:09)
[2020-04-25] MEDS: CALCIUM ACETATE 667 MG GELCAP PO SCH (09:18)
[2020-04-25 11:21] VITALS: BP 134/76
--- NOTE | 2020-04-25 12:17 | NUR ---
Patient pulled out IV this AM. CATEGORY MANAGER made aware and made rounds. CATEGORY MANAGER said to discontinue IV morphine as she felt patient was too sedated. At this time we are waiting for Dr. Greer to make rounds to determine if patient needs hemodialysis. Will not do another IV until Dr. Greer rounds. Will continue to monitor.
--- NOTE | 2020-04-25 13:00 | History and Physical ---
PRIMARY CARE PHYSICIAN: Dr. Patel at [facility]. CHIEF COMPLAINT: Missed dialysis x2 and hip pain. HISTORY OF PRESENT ILLNESS: This is a 75-year-old female, who presented to the ER with complaints of left hip pain and missed dialysis x2 due to hip pain. She reports she was not feeling well, so did not go to her scheduled dialysis. She denies any fever, chills, shortness of breath, chest pain, nausea, vomiting, or recent fall. In the ER, potassium was 4.4, BUN was 56, creatinine 9.28, and estimated GFR 5. X-ray of the femur shows status post intramedullary nail fixation for incompletely healed proximal femoral diaphyseal fracture, status post total knee arthroplasty and alignment. No radiographic evidence of hardware complication or arthrosclerotic vascular calcification. Chest x-ray, severely rotated and examination is nondiagnostic. Vital signs are stable. She is admitted and her photo finisher has been consulted for dialysis. PAST MEDICAL HISTORY: 1. Hypertension. 2. Diabetes type 2. 3. COPD. 4. Chronic systolic CHF. 5. ESRD, on dialysis Sunday, Sunday, and Sunday. 6. Hypothyroidism. 7. Chronic anemia. 8. Bipolar. PAST SURGICAL HISTORY: Reports hysterectomy and AV graft fistula for dialysis. FAMILY MEDICAL HISTORY: Reports heart disease. SOCIAL HISTORY: She denies any tobacco, alcohol, or illicit drug use. ALLERGIES: ATORVASTATIN AND PNEUMOCOCCAL VACCINE. REVIEW OF SYSTEMS: Ten systems reviewed and negative as reported in and HPI. PHYSICAL EXAMINATION: VITAL SIGNS: Temperature 98.6, pulse is 75, respirations 16, blood pressure 134/76, and pulse ox 96% on room air. GENERAL: No acute distress. HEENT: Normocephalic, atraumatic. NECK: Supple. CARDIOVASCULAR: Regular rate and rhythm. LUNGS: Clear to auscultation. ABDOMEN: Soft and nontender. MUSCULOSKELETAL: Reports right hip pain with movement, which is chronic. No edema noted. NEUROLOGIC: Alert, awake, and oriented x3. SKIN: Dry. LABORATORY DATA: WBC 6.68, hemoglobin 10.3, hematocrit 34.5, and platelets 213. Sodium 136, potassium 4.4, BUN 56, and creatinine was 9.28, now 7.91. Estimated GFR was 5, now 6. Calcium 7.7. PT 14.2, INR 1.05, and APTT 36.7. COVID PCR is pending. IMAGING: Hip and femur x-rays show status post intramedullary nail fixation for incompletely healed proximal femoral and diaphyseal fracture, status post total knee arthroplasty and anatomic alignment. No radiographic evidence of hardware complications, atherosclerotic vascular calcification. IMPRESSION: 1. Missed dialysis x2. Nephrology has been consulted and underwent dialysis last night. 2. Hypertension. Resume home medication and nifedipine and carvedilol. 3. Diabetes. Sliding scale insulin. 4. Chronic obstructive pulmonary disease, stable. Nebs as needed. 5. Chronic systolic congestive heart failure without exacerbation. Resume home medicine. 6. Hypothyroidism. On levothyroxine 175 mcg. 7. Chronic anemia. Hemoglobin is stable at 10.3. 8. History of bipolar. Resume home medication. 9. Deep vein thrombosis prophylaxis. Sequential compression devices. PLAN: To continue current treatment and may discharge once cleared by Nephrology. Hip pain is improved post one dose of morphine. Resume home dose of hydrocodone. No changes on x-ray. Dictated by JOSE Hernandez Eleuterio Sutton MD MY/MODL /[id number]
--- NOTE | 2020-04-25 14:58 | NUR ---
Patient received discharge order from Dr. Sutton's REMITTANCE CLERK once Dr. Greer saw her. Patient removed her own IV this AM at 0900 but it was covered with a C/D/I dressing. Patient was given discharge instructions, education, and follow up education. Patient verbalized understanding. Patient left with EMS at 1456. No other issues or complaints.
--- NOTE | 2020-04-25 18:45 | Discharge Summary ---
PRIMARY CARE PHYSICIAN: Dr. Patel at [facility]. FINAL DISCHARGE DIAGNOSES: 1. Missed dialysis. 2. Hypertension. 3. Diabetes. 4. Chronic obstructive pulmonary disease without exacerbation. 5. Chronic systolic congestive heart failure without exacerbation. 6. Hypothyroidism. 7. Chronic anemia. 8. History of bipolar. 9. Noncompliance with dialysis. CONSULTANTS: Dr. Greer with Nephrology. PROCEDURES: She underwent dialysis. HISTORY: Per HPI. HOSPITAL COURSE: This is a 75-year-old female, who presented to the ER with complaints of left hip pain and missed dialysis x2. Nephrology was consulted and she underwent dialysis on Sunday. She terminated the dialysis session after removing 1-1/2 L stating that she is wanting to go home. She was given morphine for pain and decided to stay overnight. This morning she is feeling much better, her creatinine has improved to 7.91. She is requesting to go home as her hip pain is improved and insisting to go home. She is cleared by Nephrology to follow up with dialysis per schedule on Sunday. The patient was instructed and advised on compliance with dialysis. PHYSICAL EXAMINATION: VITAL SIGNS: Temperature 98.6, pulse is 75, respirations 16, blood pressure 134/76, and pulse ox 96% on room air. GENERAL: No acute distress. CARDIOVASCULAR: Regular rate and rhythm. LUNGS: Clear to auscultation. ABDOMEN: Soft and nontender. MUSCULOSKELETAL: Moves all extremities, although pain with movement. NEUROLOGIC: Alert, awake, and oriented x3. SKIN: Dry. CONDITION AT DISCHARGE: Improved and stable. DISCHARGE MEDICATIONS: Please see medication reconciliation list. FOLLOWUP: Follow up with PCP and Nephrology for dialysis schedule. TIME SPENT: Total time of discharge is 31 minute. Dictated by JOSE Hernandez [employer] Anastacio Sutton MD MY/MODL /[id number] cc: Tl Patel MD
== END 2020-04-25 14:57 | disposition home or self-care (01) ==
LOC: ER 11:53 → ERHOLD 14:19 → MED/SURG 15:40
PROVIDERS: ADMIT Internal Medicine; ATTEND Internal Medicine
DX: E87.70 Fluid overload, unspecified (principal); M25.552 Pain in left hip; E11.22 Type 2 diabetes mellitus with diabetic chronic kidney disease; N18.6 End stage renal disease; Z99.2 Dependence on renal dialysis; J44.9 Chronic obstructive pulmonary disease, unspecified; I13.2 Hypertensive heart and chronic kidney disease with heart failure and with stage 5 chronic kidney disease, or end stage renal disease; I50.22 Chronic systolic (congestive) heart failure; F31.9 Bipolar disorder, unspecified; E03.9 Hypothyroidism, unspecified; D64.9 Anemia, unspecified; Z88.7 Allergy status to serum and vaccine; Z88.8 Allergy status to other drugs, medicaments and biological substances; Z89.432 Acquired absence of left foot; Z89.431 Acquired absence of right foot; E21.3 Hyperparathyroidism, unspecified; Z91.15 Patient's noncompliance with renal dialysis; Z11.59 Encounter for screening for other viral diseases
CPT/HCPCS: 36415 ×2; 71045; 73502; 73552; 80053 ×2; 82550; 82553; 82948 ×2; 84484; 85025 ×2; 85610; 85730; 90935; 93005; 96372; 99284; G0378 ×2; J2270; J7030; U0002; 90962

== ENCOUNTER 2020-07-21 09:37 | Emergency (ER) | payer MEDICARE ==
[~2020-07-21] VITALS: Ht 320 cm; Wt 92.1 kg
[2020-07-21 11:14] LABS: BASOPHILS % 0.3 % (0.0-1.0); EOSINOPHILS # (AUTO) 0.1 (0.0-0.4); HEMATOCRIT 41.3 % (34.2-44.1); HEMOGLOBIN 12.2 g/dL (12.0-16.0); LYMPHOCYTES # (AUTO) 0.9 (1.0-3.2); LYMPHOCYTES % 14.5 % (18.0-39.1); MEAN CORPUSCULAR HGB CONC 29.5 g/dL (31-35); MEAN CORPUSCULAR VOLUME 94.9 fL (81-99); MONOCYTES # (AUTO) 0.6 (0.2-0.8); MONOCYTES % 9.5 % (4.4-11.3); NEUTROPHILS # (AUTO) 4.7 (2.1-6.9); NEUTROPHILS % 73.5 % (38.7-80.0); PLATELET COUNT 189 x10e3/uL (140-360); RED BLOOD COUNT 4.35 x10e6/uL (3.6-5.1); RED CELL DISTRIBUTION WIDTH 17.1 % (11.7-14.4)
[2020-07-21 11:27] LABS: INR 1.13; PROTHROMBIN TIME 15.2 seconds (11.9-14.5)
[2020-07-21 11:28] LABS: PARTIAL THROMBOPLASTIN TIME 37.9 seconds (23.8-35.5)
[2020-07-21 11:37] LABS: ALBUMIN 2.9 g/dL (3.5-5.0); ALBUMIN/GLOBULIN RATIO 0.5 (0.8-2.0); ANION GAP 23.2 mmol/L (8-16); CREATININE, SERUM 10.1 mg/dL (0.57-1.11); POTASSIUM 4.2 mmol/L (3.5-5.1)
[2020-07-21 11:43] LABS: CREATINE KINASE MB 7.4 ng/mL (0-5.0)
== END 2020-07-21 15:43 | disposition home or self-care (01) ==
LOC: ER 09:40
DX: E11.22 Type 2 diabetes mellitus with diabetic chronic kidney disease (principal); I13.2 Hypertensive heart and chronic kidney disease with heart failure and with stage 5 chronic kidney disease, or end stage renal disease; I50.9 Heart failure, unspecified; N18.6 End stage renal disease; Z99.2 Dependence on renal dialysis; Z88.7 Allergy status to serum and vaccine; Z88.8 Allergy status to other drugs, medicaments and biological substances; Z79.02 Long term (current) use of antithrombotics/antiplatelets
CPT/HCPCS: 36415; 71045; 80053; 82550; 82553; 84484; 85025; 85610; 85730; 99284